=== PATIENT | male | born 1945 | race Caucasian/White ===

== ENCOUNTER 2021-12-08 10:08 | Outpatient (CLI) | payer MEDICARE, BC, SELFPAY ==
[2021-12-08 16:15] LABS: PSA Screen* 3.41 ng/mL (0.10-4.00)
== END 2021-12-08 10:09 | disposition home or self-care (01) ==
LOC: FRMREF 10:10
PROVIDERS: PCP Family Medicine; Visit Provider Family Medicine
DX: Z12.5 Encounter for screening for malignant neoplasm of prostate (principal)
CPT/HCPCS: 84153

== ENCOUNTER 2021-12-25 08:58 | Outpatient (CLI) | payer MEDICARE, BC, SELFPAY ==
--- NOTE | 2021-12-25 09:15 | MR_ITS ---
Patient: KUMAR MALONE Facility:?[facility] RIS Patient ID:?[id number] Site Patient ID:?[id number]. Site :?[id number] Study:?MRI-Abdomen W/ and W/O Cont 15 cc DOTAREM LIVER-12/25/2021 11:19:25 AM Ordering Physician:Jamal Rodriguez Final Report: INDICATION: Indeterminate liver lesion. Right renal mass present TECHNIQUE: Multiplanar imaging of the abdomen was performed without and with 15 cc of Dotarem contrast material IV. COMPARISON: Abdomen/pelvis CT of 12/01/2021. FINDINGS: The liver is normal in size and shape. In the lateral aspect of liver segment 8 are flash-filling hemangiomas measuring up to 10 mm and 7 mm. The liver parenchyma is otherwise unremarkable except for a 5 mm segment 2 cyst. The bile ducts are normal in caliber. A superior right renal mass measuring up to 10 cm in diameter is again demonstrated and the likely represents a renal cell carcinoma. No invasion of surrounding structures or right renal vein involvement is apparent. No lymphadenopathy is evident. The left kidney is unremarkable except for a small cyst. The spleen, adrenal glands and pancreas are within normal limits. No lymphadenopathy is apparent. The visualized bowel is unremarkable except for colonic diverticulosis. No free fluid is demonstrated. A 1 cm nodule in the right lower lobe base is again demonstrated. IMPRESSION: 1. Flash-feeling hemangiomas measuring up to 10 mm and 7 mm in the lateral aspect of segment 5. 5 mm liver segment 2 cyst also. 2. 10 cm superior right renal mass, likely a renal cell carcinoma. No local invasion or metastatic lesion evident. 3. 1 cm right lower lobe base nodule. Dictated by Raul Rivas MD @ 12/26/2021 5:37:23 AM Signed by:?Raul Rivas MD @12/26/2021 5:37:23 AM (Electronic Signature)
--- NOTE | 2021-12-25 11:00 | CRLHL7_ITS ---
For Patients: As a result of the Century Cures Act, medical imaging exams and procedure reports are released immediately into your electronic medical record. You may view this report before your referring provider. If you have questions, please contact your health care provider. Indication: RENAL CELL CARCINOMA, CHECK FOR LUNG METS Technique: Post contrast CT chest. 75 cc Isovue 370 intravenous contrast. Please note that all CT scans at this facility use dose modulation, iterative reconstruction, and/or weight-based dosing when appropriate to reduce radiation dose to as low as reasonably achievable. Comparison: Abdominal CT December 01, 2021 Findings: Coarse calcifications within the left thyroid lobe are present considered incidental. There is a suspicious nodule within the right upper lobe adjacent to the hilum measuring 1.4 cm, series 3, image 45. An additional suspicious nodule is located within the right lower lobe measuring 1.2 cm, 3/52. Mild dependent atelectasis. No pleural effusion or edema. No pneumothorax. No suspicious intrathoracic lymph nodes. Complex right renal mass measuring approximately 9 cm again noted along with retroperitoneal adenopathy in the portacaval space with lymph nodes measuring up to 1.9 cm. Hypodense lesion within the periphery of the left hepatic lobe measuring 7 millimeters, 2/81. Adrenal glands are normal. No fracture. Bridging osteophytes throughout the thoracic spine. A focus of decreased density is located within the T1 vertebral body posteriorly measuring 4 millimeters, 5/59 bone windows. An additional subtle lesion is present within the manubrium measuring 3 millimeters, 5/55. Impression: Two suspicious lung lesions measuring 1.4 cm and 1.2 cm within the right upper lobe and right lower lobe. Complex large right renal mass with adjacent portacaval adenopathy. Indeterminate 7 millimeter hypodense lesion within the left hepatic lobe. A subtle tiny foci of decreased density within the T1 vertebral body and manubrium, possibly related to osteoporosis although metastatic disease not excluded. Please note that all CT scans at this facility use dose modulation, iterative reconstruction, and/or weight-based dosing when appropriate to reduce radiation dose to as low as reasonably achievable. Dictated by Efrain Holm MD @ 12/25/2021 12:55:55 PM (Electronically Signed)
[2021-12-25 11:38] LABS: Estimated Glomerular Filt Rate 78 ml/min
== END 2021-12-25 08:59 | disposition home or self-care (01) ==
LOC: MRI 08:59
PROVIDERS: PCP Family Medicine; Visit Provider Urology
DX: N28.89 Other specified disorders of kidney and ureter (principal); R91.1 Solitary pulmonary nodule; K76.9 Liver disease, unspecified
CPT/HCPCS: 36415; 71260; 74183; 82565; A9575; Q9967

== ENCOUNTER 2022-03-10 10:25 | Outpatient (CLI) | payer MEDICARE, BC, SELFPAY ==
[2022-03-10 15:47] LABS: Creatinine Urine 156.1 mg/dL
[2022-03-10 15:51] LABS: Microalbumin Creatinine Ratio 40 mg/g (0-30); Microalbumin Urine 7 mg/dL
== END 2022-03-10 10:26 | disposition home or self-care (01) ==
LOC: LKVREF 10:31
PROVIDERS: PCP Family Medicine; Visit Provider Family Medicine
DX: E11.9 Type 2 diabetes mellitus without complications (principal); R73.9 Hyperglycemia, unspecified; D64.9 Anemia, unspecified
CPT/HCPCS: 82043; 82570

== ENCOUNTER 2022-03-17 10:35 | Emergency (ER) | payer MEDICARE, BC, SELFPAY ==
[2022-03-17 11:06] VITALS: BP 167/89; PULSE 76; RESP 18; TEMP 36.7; O2SAT 96; BMI 23.7
--- NOTE | 2022-03-17 11:22 | ED_ITS ---
History of Present Illness General Chief Complaint: Epistaxis/Nosebleed Stated Complaint: Bloody nose Time Seen by Provider: 03/17/22 10:50 History of Present Illness HPI Narrative: This 76-year-old male comes in with a nosebleed that started about 5 hours prior to arrival. He states that he blew is nose this morning and it started to bleed. He states that it stopped but then recurrent bleeding occurred 3 or 4 times in these past hours. He does not report any lightheadedness or shortness of breath. He is not on any blood thinners. He arrives with some gauze that is packed into his right nostril and is not showing any sign of active bleeding. Related Data Home Medications Medication Instructions Recorded Confirmed lancets ([place] UltraSoft 12/01/21 03/10/22 Lancets) pembrolizumab 25 mg/mL intravenous 200 mg IV Q3W 01/30/22 03/10/22 solution (Keytruda) acetaminophen 325 mg tablet 650 mg PO .twice a day PRN 03/10/22 03/10/22 (Tylenol) lenvatinib 14 mg/day (10 mg x 1 14 mg PO QDAY 03/10/22 03/10/22 and 4 mg x 1) capsule (Lenvima) omeprazole 20 mg capsule,delayed 20 mg PO QDAY 03/10/22 03/10/22 release polyethylene glycol 3350 17 4 g PO QDAY 03/10/22 03/10/22 gram/dose oral powder (Miralax) Previous Rx's Medication Instructions Recorded glipizide 2.5 mg tablet, extended 2.5 mg PO DAILY #90 tabs 02/19/22 release 24 hr diltiazem HCl 240 mg 240 mg PO DAILY #90 caps 02/25/22 capsule,extended release 24 hr lisinopril 20 1 tab PO DAILY #90 tabs 02/25/22 mg-hydrochlorothiazide 12.5 mg tablet metoprolol tartrate 25 mg tablet 12.5 mg PO BID #90 tabs 02/25/22 tamsulosin 0.4 mg capsule 0.4 mg PO DAILY #90 caps 02/25/22 blood sugar diagnostic ([employer] #100 ea 03/11/22 Ultra Test strips) Allergies Allergy/AdvReac Type Severity Reaction Status Date / Time metformin AdvReac Intermediate GI Upset Verified 03/10/22 10:03 Sulfa Antibiotics Allergy Mild Hives Uncoded 03/10/22 10:03 Review of Systems Status of ROS: Reports: 10 or more systems reviewed and unremarkable except as noted in History and below Narrative: Constitutional: No fevers, no weight gain or loss. Eyes: No discharge. No vision changes. HENT: No congestion, no sore throat, no ear pain. Bleeding from the right nostril as described above. Cardiovascular: No chest pain, no palpitations. Respiratory: No shortness of breath, no wheezes, no cough. Gastrointestinal: No abdominal pain, no vomiting, no diarrhea. Genitourinary: No dysuria, no hematuria. Musculoskeletal: Normal range of motion. Skin: No rashes, no pruritis. Neurological: No dizziness, weakness, sensory change, speech change. Endo/Heme/Allergies: No bruising or bleeding. No polydipsia. Pysch: no suicidality, no anxiety, no insomnia. All other systems reviewed and are negative. [facility] Medical History (Updated 03/17/22 @ 11:25 by Javi Medrano MD) Abdominal pain Degeneration of intervertebral disc of lumbar region Epidermoid cyst of neck Hyperglycemia Renal mass, right Surgical History (Updated 12/23/21 @ 10:32 by Roxanna Church LPN) History of bilateral inguinal hernia repair History of colonoscopy History of rotator cuff surgery Family History (Updated 12/23/21 @ 10:32 by Roxanna Church LPN) Family/Other Type 1 diabetes mellitus Type 2 diabetes mellitus Mother Diverticulitis of colon Rheumatoid arthritis Father Prostate cancer Other Encounter for annual physical exam Encounter for pre-operative examination Non-alcoholic fatty liver disease Social History (Updated 11/28/21 @ 09:46 by Jeremy Frost) Narrative: Non-smoker Smoking Status: Never smoker Exam Narrative: Exam Narrative: Constitutional: Well-developed, well-nourished, no acute distress. HEENT: Normocephalic, atraumatic. Right nostril has packing in it which was removed. There is no sign of active bleeding. There is evidence of an anterior source of bleeding in the right nostril. Neck: Normal range of motion. Nontender. Supple. Heart: Intact distal pulses. Lungs: No chest discomfort. No wheezes, rhonchi, or rales. Abdomen: Nontender. Back: Normal range of motion. Extremities: Normal range of motion. No injury. Skin: Intact. No rash. Warm. No erythema or pallor. Neurologic: No altered sensation. No weakness. Alert and oriented. Psychiatric: No suicidality. No anxiety or depression. No insomnia. Nursing notes and vitals signs are reviewed. Const: Vital Signs, click to edit/add: Vital Signs - 24 hr 03/17/22 11:06 Temperature 98.0 F Pulse Rate [Right Pulse Oximeter] 76 Respiratory Rate 18 Blood Pressure [Ri ght Upper Arm] 167/89 H Pulse Oximetry 96 Oxygen Delivery Me thod Room Air Course Vital Signs Vital signs: Initial Vital Signs Temperature 98.0 F 03/17/22 11:06 Temperature Source Temporal Artery Scan 03/17/22 11:06 Pulse Rate 76 03/17/22 11:06 Respiratory Rate 18 03/17/22 11:06 Blood Pressure 167/89 H 03/17/22 11:06 Blood Pressure Mean 115 03/17/22 11:06 Blood Pressure Position Sitting 03/17/22 11:06 Pulse Oximetry 96 03/17/22 11:06 Oxygen Delivery Method 03/17/22 11:06 Vital Signs Temperature 98.0 F 03/17/22 11:06 Pulse Rate 76 03/17/22 11:06 Respiratory Rate 18 03/17/22 11:06 Blood Pressure 167/89 H 03/17/22 11:06 Pulse Oximetry 96 03/17/22 11:06 Oxygen Delivery Method 03/17/22 11:06 Temperature 98.0 F 03/17/22 11:06 Pulse Rate 76 03/17/22 11:06 Respiratory Rate 18 03/17/22 11:06 Blood Pressure 167/89 H 03/17/22 11:06 Pulse Oximetry 96 03/17/22 11:06 Oxygen Delivery Method 03/17/22 11:06 MDM - Epistaxis MDM Narrative Medical decision making narrative: This patient is no longer actively bleeding. He does not have any blood in the oropharynx. There is evidence of an anterior bleed at the right nostril that now is no longer bleeding. He received a dose of Afrin and instructions were given regarding strategies to use if rebleeding occurs. He did receive a nasal clamp. Discharge Plan Discharge Clinical Impression: Acute anterior epistaxis Patient Disposition: Home, Self-Care Condition: Improved Additional Instructions: Be very gentle with care of the nostrils while healing recurs. If rebleeding occurs use nasal clamp and Afrin as instructed. Follow up with MD or return if worsening. Prescriptions: No Action (DME) lancets [OneTouch UltraSoft Lancets] Misc See Rx Instructions .Route Rx Instructions: daily As directed Keytruda 25 mg/mL solution 200 mg IV Q3W Rx Instructions: administer over 30 mins acetaminophen [Tylenol] 325 mg tablet 650 mg PO .twice a day PRN omeprazole 20 mg capsule,delayed release(DR/EC) 20 mg PO QDAY Lenvima 14 mg/day(10 mg x 1-4 mg x 1) capsule 14 mg PO QDAY polyethylene glycol 3350 [Miralax] 17 gram/dose powder 4 g PO QDAY glipizide 2.5 mg tablet extended release 24hr 2.5 mg PO DAILY Qty: 90 3RF lisinopril-hydrochlorothiazide 20-12.5 mg tablet 1 tab PO DAILY Qty: 90 1RF metoprolol tartrate 25 mg tablet 12.5 mg PO BID Qty: 90 1RF tamsulosin 0.4 mg capsule 0.4 mg PO DAILY Qty: 90 1RF diltiazem HCl 240 mg capsule,extended release 24hr 240 mg PO DAILY Qty: 90 1RF (DME) OneTouch Ultra Test Strip See Rx Instructions .Route Qty: 100 3RF Rx Instructions: daily -As directed Follow Up/Referrals: Beto Anne MD [Primary Care Provider] - Stand Alone Forms: [employer] Info Instructions
[2022-03-17] MEDS: OXYMETAZOLINE 0.05% NASAL SPRAY 1 SPRAY NOSTRIL-R (11:29)
--- OUTSIDE RECORDS SUMMARY | 2022-03-17 11:34 | XMS_ITS | Encounter Summary ---
:1945 [facility] [address] [place] [address] Care Team Providers Name Role Phone Unavailable Primary Care Provider Unavailable Reason for Visit Auth/Cert Specialty Diagnoses / Procedures Referred By Contact Refer red To Contact Diagnoses Nuclear sclerosis of right eye Procedures Cataract extraction with intraocular lens implant Referral ID Status Reason Start Date Expiration Date Visits Requ ested Visits Authorized [id number] 1 1 Encounter Details Date Type Department Care Team Description 09/02/2021 Hospital Encounter Jalyn Chambers [facility] Day Se[facility] [id number] [place] [address] [place] [id number] [phone] (Wo rk) Social History Tobacco Use Types Packs/Day Years Used Date Smoking Tobacco: Never Assessed Sex Assigned at Date Recorded Not on file documented as of this encounter Last Filed Vital Signs Vital Sign Reading Time Taken Comments Blood Pressure 118/70 09/02/2021 8:50 AM CDT Pulse 65 09/02/2021 8:50 AM CDT Temperature 36.6 ??C (97.9 ??F) 09/02/2021 8:44 AM CDT Respiratory Rate 16 09/02/2021 8:50 AM CDT Oxygen Saturation 95% 09/02/2021 8:50 AM CDT Inhaled Oxygen Concentration - - Weight 86.2 kg (190 lb) 08/29/2021 1:00 PM CDT Height 177.8 cm (5' 10) 08/29/2021 1:00 PM CDT Body Mass Index 27.26 08/29/2021 1:00 PM CDT documented in this encounter Medications at Time of Discharge Medication Sig Dispensed Refills Start Date End Date dilTIAZem CD (CARDIZEM 0 02/16/2021 CD) 240 MG 24 hour release capsule glipiZIDE (GLUCOTROL) 5 0 02/16/2021 MG tablet lisinopril-hydroCHLOROth 0 04/02/2021 iazide (PRINZIDE) 20-12.5 MG tablet metoprolol tartrate 0 02/26/2021 (LOPRESSOR) 25 MG tablet omeprazole (PRILOSEC) 20 0 04/02/2021 MG capsule tamsulosin (FLOMAX) 0.4 0 04/02/2021 MG CAPS capsule ketorolac (ACULAR) 0.5 % Instill 1 drop into 5 mL 1 10/15/2021 eye drop solution operative eye 4 times per day starting 3 days prior to surgery. Continue for 2 weeks after surgery. moxifloxacin (VIGAMOX) Instill 1 drop into 3 mL 1 03/2410/15/2021 0.5 % eye drop solution operative eye 4 times per day starting 3 days prior to surgery. Continue for 1 week after surgery. prednisoLONE acetate *SHAKE WELL BEFORE 15 mL 1 021 10/15/2021 (PRED FORTE) 1 % eye USE* Instill 1 drop drop suspension into operative eye 4 times per day starting AFTER your surgery. Taper by 1 drop per week. documented as of this encounter H&P Notes Seymour Lui MD - 09/02/2021 8:15 AM CDT Surgery Update for Preop History and Physical For 09/02/2021 scheduled procedure Update to H&P includes: Patient and/or family denies any health changes since the H&P This patient has been evaluated by me today and has been found to be a suitable candidate for surgery. 09/02/2021 Source Note - ProviderDaniella MD - 08/25/2021 12:00 AM CDT documented in this encounter Procedure Notes Seymour Lui MD - 09/02/2021 8:43 AM CDT OPERATIVE REPORT DATE OF OPERATION: 09/02/2021 : 1945 PREOPERATIVE DIAGNOSIS: Visually significant nuclear sclerotic age-related cataract, Right eye POSTOPERATIVE DIAGNOSIS: Visually significant nuclear sclerotic age-related cataract, Right eye INDICATIONS FOR PROCEDURE: The patient has a visually significant cataract of the operative eye that is adversely affecting their activities of daily living. The risks, benefits, alternatives, expectations and the procedure itself have been discussed at length with the patient who voiced understanding and wishes to proceed with surgery. All questions were answered to the patient's satisfaction. The stated procedure is still clinically indicated. PROCEDURE: 1. Phacoemulsification and extraction of lens, Right eye 2. Intraocular lens implantation, Right eye LENS IMPLANT: [employer] Edmund ZCB00 20.5 diopter lens SURGEON: Seymour Lui MD TRACE CLERK: None. ANESTHESIA: Monitored Anesthesia Care with topical and intraocular nonpreserved lidocaine. EBL: Less than 1 ml. COMPLICATIONS: None. DESCRIPTION OF PROCEDURE: The patient was identified in the preoperative area where the operative eye was marked. Prior to theprocedure, appropriate cardiac and respiratory monitors were applied to the patient. The patient as brought to the operative room where a surgical pause was carried out to identify with all members of the surgical team the correct surgical site. With adequate anesthesia, the Right eye was prepped and draped in the usual sterile fashion. A lid speculum was placed, and the operative microscope was rotated into position. A paracentesis was created. Through the limbal paracentesis, the anterior chamber was filled with preservative-free lidocaine and epinephrine followed by viscoelastic. A temporal clear corneal incision was created at the limbus using a 2.5mm blade. A capsulorhexis was initiated usinga cystotome and was completed in continuous and circular fashion using the capsulorrhexis forceps. The lens nucleus was hydrodissected. The lens nucleus was rotated and removed using phacoemulsification in a stop and chop technique. Residual cortical material was removed using irrigation-aspiration. The capsular bag was reinflated with cohesive viscoelastic. The intraocular lens was inserted into thecapsular bag and noted to be well centered. The residual viscoelastic was aspirated. The anterior chamber was inflated with balanced salt solution and the wounds were hydrated and found to be self-sealing. Intracameral moxifloxacin was administered. The eye was palpated and found to be of normal physiologic pressure. The speculum and drapes were removed, and vigamox and prednisolone drops were placedin the operative eye. A clear shield was placed over the eye. The patient tolerated the procedure well and there were no intraoperative complications. PLAN: The patient will be discharged to home and will follow up in the eye clinic tomorrow. Implant Name Type Inv. Item Serial No. Lining Scrubber Lot No. LRB No. Used Action LENS IOL TECNIS [id number] 20.5 - [id number] DEVICE LENS IOL TECNIS ZCB00 20.5 [id number] [employer] Right 1 Implanted documented in this encounter OR Notes H&P - Seymour Lui MD - 09/02/2021 8:58 AM CDT General exam: Heart: RRR Lungs: No signs of respiratory distress documented in this encounter Plan of Treatment Not on filedocumented as of this encounter Procedures Procedure Name Priority Date/Time Associated Comments Diagnosis PHACOEMULSIFICATION WITH 09/02/2021 8:20 Nuclear scler osis IMPLANT INTRAOCULAR LENS AM CDT of right eye GLUCOSE, WHOLE BLOOD POCT Routine 09/02/2021 7:38 Results for this AM CDT procedure are i n the results section. documented in this encounter Results Glucose, Whole Blood POCT (09/02/2021 7:38 AM CDT) P athologist Signature Glucose, Whole 125 70 - 180 09/02/2021 [place] Blood mg/dL 7:40 AM CDT LABORATORY Performing SDS MG 09/02/2021 [place] Location 7:40 AM CDT LABORATORY Specimen Anatomical Collection Method Collection Time Receive d Time (Source) Location / / Volume Laterality Blood 09/02/2021 7:38 AM 7:40 CDT AM CDT Seymour Lui MD LAB_1 Performing Organization Address City/State/ZIP Code Phon e Number [place] [address] [facility] [phone] documented in this encounter Visit Diagnoses Diagnosis Nuclear sclerosis of left eye - Primary Plan of Care - Iris Nair RN - 08/29/2021 2:17 PM CDT PPA call completed by calling [phone] spoke to patient. Advised of arrival time 0715. Reviewed pre-procedure questions, detailed instructions with NPO guidelines and address given. Advised of visitor guidelines (1 visitor, 18+ yr in age for adults and 2 parents or legal guardians- peds)All questions answered, no other needs at this time. documented in this encounter Admitting Diagnoses Diagnosis Nuclear sclerosis of left eye documented in this encounter Administered Medications Inactive Administered Medications - up to 3 most recent administrations Medication Order MAR Action Action Date Dose Rate Site balance salt intraocular (BSS) Given 09/02/2021 8:[address] op ophthalmic solution ONCE PRN, Starting on Wed09/02/21 at 0831, Until Wed09/02/21 at 1100, Intra-op EPINEPHrine 0.025%-lidocaine 0.75% PF 0.8mL Given 09/02/2021 8:32 AM CDT 0.8 mL syringe ONCE PRN, Starting on Wed09/02/21 at 0832, Until Wed09/02/21 at 1100, Intra-op EPINEPHrine PF 0.5 mg in balance salt Given 09/02/2021 8:32 AM C DT 250 mL intraocular (BSS) 500 mL ONCE PRN, Starting on Wed09/02/21 at 0832, Intra-op fentaNYL (SUBLIMAZE) injection 25-50 mcg 25-50 mcg, Intravenous, [id number], Pain, Procedure, Starting on Wed09/02/21 at 0722, Until Wed09/02/21 at 1100, For 2 doses, As directed by anesthesiologist, Pre-op gatifloxacin (ZYMAXID) 0.5 % ophthalmic Given 09/02/2021 7:40 AM CDT 1 Drop solution 1 Drop 1 Drop, See Admin Instructions, OTHER, Starting on Wed09/02/21 at 0721, Until Wed09/02/21 at 0740, For 3 doses, Following tetracaine eye drop, instill 1 drop into operative eye every 5-10 minutes x 3, Pre-op Given 09/02/2021 7:35 AM CDT 1 Drop Given 09/02/2021 7:30 AM CDT 1 Drop lidocaine PF (XYLOCAINE) 1 % injection 0 .1-0.3 mL 0.1-0.3 mL, Subcutaneous, PRN, Other, fo r IV insertion, Starting on Wed09/02/21 at 0721, For 1 day, Lidocaine to be used fo r IV starts unless patient refuses., Pre-op meperidine (DEMEROL) injection 12.5 mg 12.5 mg, Intravenous, [id number], Shiverin g, Starting on Wed09/02/21 at 0708, Until Wed09/02/21 at 1100, For 2 doses, Maximu m cumulative dose is 25 mg. Do not give to patients receiving MAO inhibitors (e.g. phenelzine (NA RDIL), tranylcypromine (PARNATE), selegiline (ELDEPRYL))., PACU/Recovery midazolam (VERSED) injection 1-2 mg 1-2 mg, Intravenous, [id number], Sedation, Anxiety, Proc edure, Starting on Wed09/02/21 at 0722, Until Wed09/02/21 at 1100, As directe d by anesthesiologist MAX Dose 2mg, Pre-op moxifloxacin (VIGAMOX) 0.3 MG/0.3ML Given 09/02/2021 8:32 AM CDT 0.3 mg ophthalmic injection ONCE PRN, Starting on Wed09/02/21 at 0832, Until Wed09/02/21 at 1100, Intra-op moxifloxacin (VIGAMOX) 0.5 % ophthalmic Given 09/02/2021 8:32 AM CDT 1 Drop solution ONCE PRN, Starting on Wed09/02/21 at 0832, Until Wed09/02/21 at 1100, Intra-op naloxone (NARCAN) injection 0.08 mg 0.08 mg, Intravenous, PRN, Other, For respiratory rate less than 8/minute or patient difficult to arouse, Starting on Wed09/02/21 at 0708, Until Wed09/02/21 at 1100, May repeat every 3 minutes or until patient is r esponsive to physical stimulation and is able to take deep regina aths. Maximum cumulative dose is 0.4 mg (1 mL). Continue to observe; if no response after administering total dose of 0.4 mg notify anesthesiologist STAT., PACU/Recovery naloxone (NARCAN) injection 0.4 mg 0.4 mg, Intravenous, ONCE PRN, Opioid Re versal, Starting on Wed09/02/21 at 0708, Until Wed09/02/21 at 1100, For 1 dose, F or imminent respiratory arrest. Notify MD if naloxone is given., PACU/Recovery ondansetron (ZOFRAN) injection 4 mg 4 mg, Intravenous, Q4H PRN, Nausea, Vomiting, Starting on Wed09/02/21 at 0708, Until Wed09/02/21 at 1100, If multiple medications are ordered for nausea or vomiting - administer in the following priority based on medications ordered, effectiveness and availability: ondanset ant (ZOFRAN) > prochlorPERAZINE (COMPAZINE) > diphenhydrAMINE (BENADRYL) > hydrOXYzi ne HCl (VISTARIL)> ePHEDrine > scopolamine (TRANSDERM-SCOP)., PACU/Recovery phenylephrine (AK-DILATE) 2.5 % ophthalmic Given 09/02/2021 7:40 AM CDT 1 Drop solution 1 Drop 1 Drop, See Admin Instructions, OTHER, Starting on Wed09/02/21 at 0721, Until Wed09/02/21 at 0740, For 3 doses, Following tetracaine eye drop, instill 1 drop into operative eye every 5-10 minutes x 3, Pre-op Given 09/02/2021 7:35 AM CDT 1 Drop Given 09/02/2021 7:30 AM CDT 1 Drop povidone-iodine (BETADINE) 5 % ophthalmic Given 09/02/2021 8:33 AM CDT 1 Drop solution ONCE PRN, Starting on Wed09/02/21 at 0833, Until Wed09/02/21 at 1100, Intra-op prednisoLONE acetate (PRED FORTE) 1 % Given 09/02/2021 8:33 AM C DT 1 Drop ophthalmic suspension ONCE PRN, Starting on Wed09/02/21 at 0833, Until Wed09/02/21 at 1100, Intra-op sodium chloride 0.9% injection 10 mL Given 09/02/2021 7:36 AM CDT 10 mL 10 mL, Intravenous, PRN, Line Patency, Starting on Wed09/02/21 at 0721, Until Wed09/02/21 at 1100, Pre-op sodium hyaluronate (HELON DUET) ophthalmic Given 09/02/2021 8:33 AM CDT 1 Each injection ONCE PRN, Starting on Wed09/02/21 at 0833, Intra-op tetracaine (PONTOCAINE) 0.5 % ophthalmic Given 09/02/2021 7:30 A M CDT 1 Drop solution 1 Drop 1 Drop, See Admin Instructions, ONCE, On Wed09/02/21 at 0745, For 1 dose, Instill into operative eye prior to all other eye drops, Pre-op tetracaine (PONTOCAINE) 0.5 % ophthalmic Given 09/02/2021 8:33 A M CDT 1 Drop solution ONCE PRN, Starting on Wed09/02/21 at 0833, Intra-op timolol (TIMOPTIC) 0.5 % ophthalmic solu tion Given 09/02/2021 8:33 AM CDT 1 Drop ONCE PRN, Starting on Wed09/02/21 at 0833, Until Wed09/02/21 at 1100, Intra-op tropicamide (MYDRIACYL) 1 % ophthalmic Given 09/02/2021 7:40 AM CDT 1 Drop solution 1 Drop 1 Drop, See Admin Instructions, OTHER, Starting on Wed09/02/21 at 0721, Until Wed09/02/21 at 0740, For 3 doses, Following tetracaine eye drop, instill 1 drop into operative eye every 5-10 minutes x 3, Pre-op Given 09/02/2021 7:35 AM CDT 1 Drop Given 09/02/2021 7:30 AM CDT 1 Drop documented in this encounter Active and Recently Administered Medications Times are shown in CDT. Scheduled Medication Order 08/31/2021 09/01/2021 09/02/2021 gatifloxacin (ZYMAXID) 0.5 % ophthalmic solution 1 Drop (COMPLET ED) 0743 (Given - Provider: Bridget Sarmiento RN)0735 (Given - Provider: Bridget Sarmiento RN)0740 (Given - Provider: Bridget Sarmiento RN) 1 Drop, See Admin Instructions, OTHER, S tarting on Wed09/02/21 at 0721, Until Wed09/02/21 at 0740, For 3 doses, Following tetracaine eye drop, instill 1 drop into operative eye every 5-10 minutes x 3, Pre-op phenylephrine (AK-DILATE) 2.5 % ophthalmic solution 1 Drop (COMP LETED) 0730 (Given - Provider: Bridget Sarmiento RN)0735 (Given - Provider: Bridget Sarmiento RN)0740 (Given - Provider: Bridget Sarmiento RN) 1 Drop, See Admin Instructions, OTHER, S tarting on Wed09/02/21 at 0721, Until Wed09/02/21 at 0740, For 3 doses, Following tetracaine eye drop, instill 1 drop into operative eye every 5-10 minutes x 3, Pre-op tetracaine (PONTOCAINE) 0.5 % ophthalmic solution 1 Drop (COMPLE BRENDON) 0730 (Given - Provider: Bridget Sarmiento RN) 1 Drop, See Admin Instructions, ONCE, On Wed09/02/21 at 0745, For 1 dose, Instill into operative eye prior to all other eye drops, Pre-op tropicamide (MYDRIACYL) 1 % ophthalmic solution 1 Drop (COMPLETE D) 0730 (Given - Provider: Bridget Sarmiento RN)0735 (Given - Provider: Bridget Sarmiento RN)0740 (Given - Provider: Bridget Sarmiento RN) 1 Drop, See Admin Instructions, OTHER, S tarting on Wed09/02/21 at 0721, Until Wed09/02/21 at 0740, For 3 doses, Following tetracaine eye drop, instill 1 drop into operative eye every 5-10 minutes x 3, Pre-op PRN Medication Order 08/31/2021 09/01/2021 09/02/2021 acetaminophen (TYLENOL) tablet 650 mg 650 mg, Oral, ONCE PRN, Other, Mild Pain (pain score 1-4), Starting on Wed09/02/21 at 0831, Until Wed09/02/21 at 1100, For 1 dose, Give for mild pain or if patient prefers acetaminophen over other options for pain (all pain scores)., Post-op balance salt intraocular (BSS) ophthalmic solution 830 (Given - Provider: Seymour Lui MD) ONCE PRN, Starting on Wed09/02/21 at 0831, Until Wed09/02/21 at 1100, Intra-op EPINEPHrine 0.025%-lidocaine 0.75% PF 0.8mL syringe 831 (Given - Provider: Seymour Lui MD) ONCE PRN, Starting on Wed09/02/21 at 0832, Until Wed09/02/21 at 1100, Intra-op EPINEPHrine PF 0.5 mg in balance salt intraocular (BSS) 500 mL 831 (Given - Provider: Seymour Lui MD) ONCE PRN, Starting on Wed09/02/21 at 0832, Intra-op fentaNYL (SUBLIMAZE) injection 25-50 mcg 25-50 mcg, Intravenous, [id number], Pain, Procedure, Starting on Wed09/02/21 at 0722, Until Wed09/02/21 at 1100, For 2 doses, As directed by anesthesiologist, Pre-op lidocaine PF (XYLOCAINE) 1 % injection 0.1-0.3 mL 0.1-0.3 mL, Subcutaneous, PRN, Other, fo r IV insertion, Starting on Wed09/02/21 at 0721, For 1 day, Lidocaine to be used for IV starts unless patient refuses., Pre-op meperidine (DEMEROL) injection 12.5 mg 12.5 mg, Intravenous, [id number], Shiverin g, Starting on Wed09/02/21 at 0708, Until Wed09/02/21 at 1100, For 2 doses, Maximum cumulative dose is 25 mg. Do not give to patients receiving MAO inhibitors (e. g. phenelzine (NARDIL), tranylcypromine (PARNATE), selegiline (ELDEPRYL))., PACU/Recovery midazolam (VERSED) injection 1-2 mg 1-2 mg, Intravenous, [id number], Sedation, Anxiety, Procedure, Starting on Wed09/02/21 at 0722, Until Wed09/02/21 at 1100, As directed by anesthesiologist MAX Dose 2mg, Pre-op moxifloxacin (VIGAMOX) 0.3 MG/0.3ML ophthalmic injection 831 (Given - Provider: Seymour Lui MD) ONCE PRN, Starting on Wed09/02/21 at 0832, Until Wed09/02/21 at 1100, Intra-op moxifloxacin (VIGAMOX) 0.5 % ophthalmic solution 831 (Given - Provider: Sonia Sanches RN) ONCE PRN, Starting on Wed09/02/21 at 0832, Until Wed09/02/21 at 1100, Intra-op naloxone (NARCAN) injection 0.08 mg 0.08 mg, Intravenous, PRN, Other, For re spiratory rate less than 8/minute or patient difficult to arouse, Starting on Wed09/02/21 at 0708, Until Wed09/02/21 at 1100, May repeat every 3 minutes or until patient is responsive to physical stimul ation and is able to take deep breaths. Maximum cumulative dose is 0.4 mg (1 mL). Continue to observe; if no response after administering total dose of 0.4 mg notify anesthesiologist STAT., PACU/Recovery naloxone (NARCAN) injection 0.4 mg 0.4 mg, Intravenous, ONCE PRN, Opioid Re versal, Starting on Wed09/02/21 at 0708, Until Wed09/02/21 at 1100, For 1 dose, For imminent respiratory arrest. Notify MD if naloxone is given., PACU/Recovery ondansetron (ZOFRAN) injection 4 mg 4 mg, Intravenous, Q4H PRN, Nausea, Vomi ting, Starting on Wed09/02/21 at 0708, Until Wed09/02/21 at 1100, If multiple medications are ordered for nausea or vomiting - administer in the following priorit y based on medications ordered, effectiv eness and availability: ondansetron (ZOFRAN) > prochlorPERAZINE (COMPAZINE) > diphenhydrAMINE (BENADRYL) > hydrOXYzine HCl (VISTARIL)> ePHEDrine > scopolamine (TRANSDERM-SCOP)., PACU/Recovery povidone-iodine (BETADINE) 5 % ophthalmic solution 832 (Given - Provider: Sonia Sanches RN) ONCE PRN, Starting on Wed09/02/21 at 0833, Until Wed09/02/21 at 1100, Intra-op prednisoLONE acetate (PRED FORTE) 1 % ophthalmic suspension 832 (Given - Provider: Sonia Sanches, VAISHALI) ONCE PRN, Starting on Wed09/02/21 at 0833, Until Wed09/02/21 at 1100, Intra-op sodium chloride 0.9% injection 10 mL 735 (Given - Provider: Bridget Sarmiento RN) 10 mL, Intravenous, PRN, Line Patency, S tarting on Wed09/02/21 at 0721, Until Wed09/02/21 at 1100, Pre-op sodium hyaluronate (HELON DUET) ophthalmic injection 832 (Given - Provider: Seymour Lui MD) ONCE PRN, Starting on Wed09/02/21 at 0833, Intra-op tetracaine (PONTOCAINE) 0.5 % ophthalmic solution 1 Drop 1 Drop, See Admin Instructions, ONCE PRN , Other, In operative eye if eye is not patched., Starting on Wed09/02/21 at 0831, For 1 dose, Instill 1 drop in operative eye if eye is not patched., Post-op tetracaine (PONTOCAINE) 0.5 % ophthalmic solution 832 (Given - Provider: Sonia Sanches RN) ONCE PRN, Starting on Wed09/02/21 at 0833, Intra-op timolol (TIMOPTIC) 0.5 % ophthalmic solution 832 (Given - Provider: Sonia Sanches RN) ONCE PRN, Starting on Wed09/02/21 at 0833, Until Wed09/02/21 at 1100, Intra-op documented in this encounter
--- OUTSIDE RECORDS SUMMARY | 2022-03-17 11:34 | XMS_ITS | Encounter Summary ---
:1945 Author Organization [facility] Address [address] [place] [address] Care Team Providers Name Role Phone Unavailable Primary Care Provider Unavailable Encounter Details Date Type Department Care Team Description 04/02/2021 Orders Only Initial Department Provider, Daniella, [facility] ROBBIE LANCASTER MD [place], [place] [address] Interface provider [phone] [place] [address] Social History Tobacco Use Types Packs/Day Years Used Date Smoking Tobacco: Never Assessed Sex Assigned at Date Recorded Not on file documented as of this encounter Plan of Treatment Not on filedocumented as of this encounter Procedures Procedure Name Priority Date/Time Associated Diagnosis Comme nts MIRIAM (DIABETIC EYE 04/02/2021 Results fo r this EXAM) procedure are i n the results section . documented in this encounter Results MIRIAM (DIABETIC EYE EXAM) (04/02/2021) Narrative This result has an attachment that is no t available. Interface Provider DUMMY/OTHER/AR documented in this encounter Visit Diagnoses Not on filedocumented in this encounter
--- OUTSIDE RECORDS SUMMARY | 2022-03-17 11:34 | XMS_ITS | Encounter Summary ---
:1945 Author Organization [facility] Address [address] [place] [address] Care Team Providers Name Role Phone Unavailable Primary Care Provider Unavailable Encounter Details Date Type Department Care Team Description 09/03/2021 Office Visit [place] Seymour Lui, 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); Ophthalmology Pseudophakia [address] [place] [address] [facility] [address] [place] [id number] [phone] Social History Tobacco Use Types Packs/Day Years Used Date Smoking Tobacco: Never Assessed Sex Assigned at Date Recorded Not on file documented as of this encounter Progress Notes Seymour Lui MD - 09/03/2021 11:00 AM CDT I reviewed the information stated in the mold repair technician's note for today and agree, unless otherwise noted below. I reviewed the patient's past medical history, medications, family history, and social history. General: Generally healthy appearing. Alert and oriented x 3. Subjective: see tech note, agree. Impression: Postoperative day 1 s/p cataract extraction with intraocular lens implantation, right eye Good postoperative appearance. Patient is doing well. -Postoperative instructions and restrictions were reviewed with the patient including use of eye drops -Patient advised to call if any problems, questions or concerns -Prednisolone QID, 4-3-2-1 taper -Moxifloxacin QID x 1 week -Ketorolac QID x 1 week then TID x 1 week -Follow up in 2 weeks for cataract surgery in fellow eye, or sooner if increased redness, blurry vision, or pain in operative eye. Visually significant cataract, left eye -Pt selects standard IOL for distance focus, both eyes -Declined adv tech options Will plan for topical anesthesia Refractive Goal: Hamilton Dilation: 7mm Flomax?: YES Malyugin Ring?: No Trypan?: No Glaucoma suspect, both eyes. Based on C:D. IOP stable. -Monitor PVD, right eye. Stable. Discussed. -RD precautions reviewed Type II Diabetes Mellitus -No active diabetic retinopathy is present on examination -BS/BP control documented in this encounter Plan of Treatment Not on filedocumented as of this encounter Visit Diagnoses Diagnosis Nuclear sclerosis of left eye - Primary Pseudophakia Lens replaced by other means documented in this encounter
--- OUTSIDE RECORDS SUMMARY | 2022-03-17 11:34 | XMS_ITS | Encounter Summary ---
:1945 Author Organization [facility] Address [address] [place] [address] Care Team Providers Name Role Phone Unavailable Primary Care Provider Unavailable Reason for Visit Auth/Cert Specialty Diagnoses / Procedures Referred By Contact Refer red To Contact Diagnoses Nuclear sclerosis of left eye Procedures Cataract extraction with intraocular lens implant Referral ID Status Reason Start Date Expiration Date Visits Requ ested Visits Authorized [id number] 1 1 Encounter Details Date Type Department Care Team Description 09/16/2021 Hospital Encounter Jalyn Chambers Same Day Seymour [facility] [id number] [place] [address] [place] [id number] [phone] (Wo rk) Social History Tobacco Use Types Packs/Day Years Used Date Smoking Tobacco: Never Assessed Sex Assigned at Date Recorded Not on file documented as of this encounter Last Filed Vital Signs Vital Sign Reading Time Taken Comments Blood Pressure 129/70 09/16/2021 9:00 AM CDT Pulse 68 09/16/2021 9:00 AM CDT Temperature 36 ??C (96.8 ??F) 09/16/2021 8:56 AM CDT Respiratory Rate 16 09/16/2021 9:00 AM CDT Oxygen Saturation 97% 09/16/2021 9:00 AM CDT Inhaled Oxygen Concentration - - Weight - - Height - - Body Mass Index - - documented in this encounter Medications at Time [...] per week. documented as of this encounter Progress Notes Seymour Lui MD - 09/16/2021 8:33 AM CDT The patient reports no new medical events or changes in their health since preoperative history and physical. Adelita Rodriguez RN - 09/11/2021 11:16 AM CDT Called pt. Reviewed questions and chart with pt. 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 Instructed on 1 visitor for adults and 2 parents/guardians for <18yrs old in building at this time. Pt informed of surgery arrival time of 0715 on 09/16. Covid test 09/13. PPA assessment complete. documented in this encounter Procedure Notes Seymour Lui MD - 09/16/2021 8:54 AM CDT OPERATIVE REPORT DATE OF OPERATION: 09/16/2021 : 1945 PREOPERATIVE DIAGNOSIS: Visually significant nuclear sclerotic age-related cataract, Left eye POSTOPERATIVE DIAGNOSIS: Visually significant nuclear sclerotic age-related cataract, Left eye INDICATIONS FOR PROCEDURE: The patient has [...] PROCEDURE: 1. Phacoemulsification and extraction of lens, Left eye 2. Intraocular lens implantation, Left eye LENS IMPLANT: [employer] ZCB00 20.5 diopter lens SURGEON: Seymour Lui MD BONDING MOLDER: None. ANESTHESIA: Monitored Anesthesia Care with topical [...] correct surgical site. With adequate anesthesia, the Left eye was prepped and draped in the usual sterile fashion. A lid speculum was placed, and the operative microscope was rotated into position. A paracentesis was created. Through the limbal paracentesis, the anterior chamber was filled with preservative-free lidocaine and epinephrine followed by viscoelastic. A temporal clearcorneal incision was created at the limbus using a 2.5mm blade. A capsulorhexis was initiated using a cystotome and was completed in continuous and circular fashion using the capsulorrhexis forceps. The lens nucleus was hydrodissected. The lens nucleus was rotated and removed using phacoemulsificationin a stop and chop technique. Residual cortical material was removed using irrigation-aspiration. The capsular bag was reinflated with cohesive viscoelastic. The intraocular lens was inserted into the capsular bag and noted to be well centered. The residual viscoelastic was aspirated. The anterior chamber was inflated with balanced salt solution and the wounds were hydrated and found to be self-sealing. Intracameral moxifloxacin was administered. The eye was palpated and found to be of normal physiologic pressure. The speculum and drapes were removed, and vigamox and prednisolone drops were placed in the operative eye. A clear shield was placed over the eye. The patient tolerated the procedure well and there were no intraoperative complications. PLAN: The patient will be discharged to home and will follow up in the eye clinic tomorrow. Implant Name Type Inv. Item Serial No. School Plant Consultant Lot No. LRB No. Used Action LENS IOL TECNIS ZCB00 20.5 - [id number] DEVICE LENS IOL TECNIS ZCB00 20.5 [id number] [employer] Left 1 Implanted documented in this encounter Plan of Treatment Not on filedocumented as of this encounter Procedures Procedure Name Priority Date/Time Associated Comments Diagnosis PHACOEMULSIFICATION WITH 09/16/2021 8:31 Nuclear scler osis IMPLANT INTRAOCULAR LENS AM CDT of left eye GLUCOSE, WHOLE BLOOD POCT Routine 09/16/2021 7:36 Results for this AM CDT procedure are i n the results section. documented in this encounter Results Glucose, Whole Blood POCT (09/16/2021 7:36 AM CDT) athologist Signature Glucose, Whole 148 70 - 180 09/16/2021 [facility] Blood mg/dL 7:37 AM CDT LABORATORY Performing SDS MG 09/16/2021 [facility] Location 7:37 AM CDT LABORATORY Specimen Anatomical Collection Method Collection Time Receive d Time (Source) Location / / Volume Laterality Blood 09/16/2021 7:36 AM 7:37 CDT AM CDT Seymour Lui MD LAB_1 Performing Organization Address City/State/ZIP Code Phon e Number [facility] [place] [address] [facility] [phone] documented in this encounter Visit Diagnoses Not on filedocumented in this encounter Admitting Diagnoses Diagnosis Nuclear sclerosis of left eye documented in this encounter Administered Medications Inactive Administered Medications - up to 3 most recent administrations Medication Order MAR Action Action Date Dose Rate Site balance salt intraocular (BSS) Given 09/16/2021 8:44 AM CDT 15 m L Left Eye ophthalmic solution ONCE PRN, Starting on Wed09/16/21 at 0844, Until Wed09/16/21 at 1113, Intra-op EPINEPHrine 0.025%-lidocaine 0.75% PF Given 09/16/2021 8:44 AM C DT 0.8 mL Left Eye 0.8mL syringe ONCE PRN, Starting on Wed09/16/21 at 0844, Until Wed09/16/21 at 1113, Intra-op EPINEPHrine PF 0.5 mg in balance salt Given 09/16/2021 8:44 AM C DT 200 mL Left Eye intraocular (BSS) 500 mL ONCE PRN, Starting on Wed09/16/21 at 0844, Intra-op gatifloxacin (ZYMAXID) 0.5 % ophthalmic Given 09/16/2021 7:37 AM CDT 1 Drop solution 1 Drop 1 Drop, See Admin Instructions, OTHER, Starting on Wed09/16/21 at 0726, Until Wed09/16/21 at 0737, For 3 doses, Following tetracaine eye drop, instill 1 drop into operative eye every 5-10 minutes x 3, Pre-op Given 09/16/2021 7:34 AM CDT 1 Drop Given 09/16/2021 7:10 AM CDT 1 Drop lidocaine PF (XYLOCAINE) 1 % injection 0 .1-0.3 mL 0.1-0.3 mL, Subcutaneous, PRN, Other, fo r IV insertion, Starting on Wed09/16/21 at 0726, For 1 day, Lidocaine to be used fo r IV starts unless patient refuses., Pre-op meperidine (DEMEROL) injection 12.5 mg 12.5 mg, Intravenous, [id number], Shiverin g, Starting on Wed09/16/21 at 0757, Until Wed09/16/21 at 1113, For 2 doses, Maximu m cumulative dose is 25 mg. Do not give to patients receiving MAO inhibitors (e.g. phenelzine (NA RDIL), tranylcypromine (PARNATE), selegiline (ELDEPRYL))., PACU/Recovery moxifloxacin (VIGAMOX) 0.3 MG/0.3ML Given 09/16/2021 8:44 AM CDT 0.3 mg Left Eye ophthalmic injection ONCE PRN, Starting on Wed09/16/21 at 0844, Until Wed09/16/21 at 1113, Intra-op moxifloxacin (VIGAMOX) 0.5 % Given 09/16/2021 8:44 AM CDT 1 Drop Left Eye ophthalmic solution ONCE PRN, Starting on Wed09/16/21 at 0844, Until Wed09/16/21 at 1113, Intra-op naloxone (NARCAN) injection 0.08 mg 0.08 mg, Intravenous, PRN, Other, For respiratory rate less than 8/minute or patient difficult to arouse, Starting on Wed09/16/21 at 0757, Until Wed09/16/21 at 1113, May repeat every 3 minutes or until patient is r esponsive to physical stimulation and is able to take deep regina aths. Maximum cumulative dose is 0.4 mg (1 mL). Continue to observe; if no response after administering total dose of 0.4 mg notify anesthesiologist STAT., PACU/Recovery naloxone (NARCAN) injection 0.4 mg 0.4 mg, Intravenous, ONCE PRN, Opioid Re versal, Starting on Wed09/16/21 at 0757, Until Wed09/16/21 at 1113, For 1 dose, F or imminent respiratory arrest. Notify MD if naloxone is given., PACU/Recovery ondansetron (ZOFRAN) injection 4 mg 4 mg, Intravenous, Q4H PRN, Nausea, Vomiting, Starting on Wed09/16/21 at 0757, Until Wed09/16/21 at 1113, If multiple medications are ordered for nausea or vomiting - administer in the following priority based on medications ordered, effectiveness and availability: ondanset ant (ZOFRAN) > prochlorperazine (COMPAZINE) > diphenhydrAMINE (BENADRYL) > hydrOXYzi ne HCl (VISTARIL)> ePHEDrine > scopolamine (TRANSDERM-SCOP)., PACU/Recovery phenylephrine (AK-DILATE) 2.5 % ophthalmic Given 09/16/2021 7:37 AM CDT 1 Drop solution 1 Drop 1 Drop, See Admin Instructions, OTHER, Starting on Wed09/16/21 at 0726, Until Wed09/16/21 at 0737, For 3 doses, Following tetracaine eye drop, instill 1 drop into operative eye every 5-10 minutes x 3, Pre-op Given 09/16/2021 7:34 AM CDT 1 Drop Given 09/16/2021 7:10 AM CDT 1 Drop povidone-iodine (BETADINE) 5 % Given 09/16/2021 8:[address] Left Eye ophthalmic solution ONCE PRN, Starting on Wed09/16/21 at 0845, Until Wed09/16/21 at 1113, Intra-op prednisoLONE acetate (PRED FORTE) 1 % Given 09/16/2021 8:45 AM C DT 1 Drop Left Eye ophthalmic suspension ONCE PRN, Starting on Wed09/16/21 at 0845, Until Wed09/16/21 at 1113, Intra-op sodium chloride 0.9% injection 10 mL Given 09/16/2021 7:33 AM CDT 10 mL 10 mL, Intravenous, ONCE, On Wed09/16/21 at 0745, For 1 dose, Pre-op sodium chloride 0.9% injection 10 mL 10 mL, Intravenous, PRN, Line Patency, S tarting on Wed09/16/21 at 0726, Until Wed09/16/21 at 1113, Pre-op sodium hyaluronate (HELON DUET) Given 09/16/2021 8:45 AM CDT 1 E ach Left Eye ophthalmic injection ONCE PRN, Starting on Wed09/16/21 at 0845, Intra-op tetracaine (PONTOCAINE) 0.5 % ophthalmic Given 09/16/2021 7:05 A M CDT 1 Drop solution 1 Drop 1 Drop, See Admin Instructions, ONCE, On Wed09/16/21 at 0745, For 1 dose, Instill into operative eye prior to all other eye drops, Pre-op tetracaine (PONTOCAINE) 0.5 % Given 09/16/2021 8:45 AM CDT 1 Duran p Both Eyes ophthalmic solution ONCE PRN, Starting on Wed09/16/21 at 0845, Intra-op timolol (TIMOPTIC) 0.5 % ophthalmic Given 09/16/2021 8:45 AM CDT 1 Drop Left Eye solution ONCE PRN, Starting on Wed09/16/21 at 0845, Until Wed09/16/21 at 1113, Intra-op tropicamide (MYDRIACYL) 1 % ophthalmic Given 09/16/2021 7:37 AM CDT 1 Drop solution 1 Drop 1 Drop, See Admin Instructions, OTHER, Starting on Wed09/16/21 at 0726, Until Wed09/16/21 at 0737, For 3 doses, Following tetracaine eye drop, instill 1 drop into operative eye every 5-10 minutes x 3, Pre-op Given 09/16/2021 7:33 AM CDT 1 Drop Given 09/16/2021 7:10 AM CDT 1 Drop documented in this encounter Active and Recently Administered Medications Times are shown in CDT. Scheduled Medication Order 09/14/2021 09/15/2021 09/16/2021 gatifloxacin (ZYMAXID) 0.5 % ophthalmic solution 1 Drop (COMPLET ED) 0710 (Given - Provider: Bridget Sarmiento RN)0734 (Given - Provider: Bridget Sarmiento RN)0737 (Given - Provider: Bridget Sarmiento, VAISHALI) 1 Drop, See Admin Instructions, OTHER, S tarting on Wed09/16/21 at 0726, Until Wed09/16/21 at 0737, For 3 doses, Following tetracaine eye drop, instill 1 drop into operative eye every 5-10 minutes x 3, Pre-op phenylephrine (AK-DILATE) 2.5 % ophthalmic solution 1 Drop (COMP LETED) 0710 (Given - Provider: Bridget Sarmiento RN)0734 (Given - Provider: Bridget Sarmiento, VAISHALI)0737 (Given - Provider: Bridget Sarmiento, VAISHALI) 1 Drop, See Admin Instructions, OTHER, S tarting on Wed09/16/21 at 0726, Until Wed09/16/21 at 0737, For 3 doses, Following tetracaine eye drop, instill 1 drop into operative eye every 5-10 minutes x 3, Pre-op sodium chloride 0.9% injection 10 mL (COMPLETED) 0733 (Given - Provider: Bridget Sarmiento, VAISHALI) 10 mL, Intravenous, ONCE, On Wed09/16/21 at 0745, For 1 dose, Pr e-op tetracaine (PONTOCAINE) 0.5 % ophthalmic solution 1 Drop (COMPLE BRENDON) 0705 (Given - Provider: Bridget Sarmiento, VAISHALI) 1 Drop, See Admin Instructions, ONCE, On Wed09/16/21 at 0745, For 1 dose, Instill into operative eye prior to all other eye drops, Pre-op tropicamide (MYDRIACYL) 1 % ophthalmic solution 1 Drop (COMPLETE D) 0710 (Given - Provider: Bridget Sarmiento, VAISHALI)0733 (Given - Provider: Bridget Sarmiento, VAISHALI)0737 (Given - Provider: Bridget Sarmiento, VAISHALI) 1 Drop, See Admin Instructions, OTHER, S tarting on Wed09/16/21 at 0726, Until Wed09/16/21 at 0737, For 3 doses, Following tetracaine eye drop, instill 1 drop into operative eye every 5-10 minutes x 3, Pre-op PRN Medication Order 09/14/2021 09/15/2021 09/16/2021 acetaminophen (TYLENOL) tablet 650 mg 650 mg, Oral, ONCE PRN, Other, Mild Pain (pain score 1-4), Starting on Wed09/16/21 at 0859, Until Wed09/16/21 at 1113, For 1 dose, Give for mild pain or if patient prefers acetaminophen over other options for pain (all pain scores)., Post-op balance salt intraocular (BSS) ophthalmic solution 0844 (Given - Provider: Seymour Lui MD) ONCE PRN, Starting on Wed09/16/21 at 0844, Until Wed09/16/21 at 1113, Intra-op EPINEPHrine 0.025%-lidocaine 0.75% PF 0.8mL syringe 0844 (Given - Provider: Seymour Lui MD) ONCE PRN, Starting on Wed09/16/21 at 0844, Until Wed09/16/21 at 1113, Intra-op EPINEPHrine PF 0.5 mg in balance salt intraocular (BSS) 500 mL 0844 (Given - Provider: Syemour Lui MD) ONCE PRN, Starting on Wed09/16/21 at 0844, Intra-op lidocaine PF (XYLOCAINE) 1 % injection 0.1-0.3 mL 0.1-0.3 mL, Subcutaneous, PRN, Other, fo r IV insertion, Starting on Wed09/16/21 at 0726, For 1 day, Lidocaine to be used for IV starts unless patient refuses., Pre-op meperidine (DEMEROL) injection 12.5 mg 12.5 mg, Intravenous, [id number], Shiverin g, Starting on Wed09/16/21 at 0757, Until Wed09/16/21 at 1113, For 2 doses, Maximum cumulative dose is 25 mg. Do not give to patients receiving MAO inhibitors (e. g. phenelzine (NARDIL), tranylcypromine (PARNATE), selegiline (ELDEPRYL))., PACU/Recovery moxifloxacin (VIGAMOX) 0.3 MG/0.3ML ophthalmic injection 0844 (Given - Provider: Seymour Lui MD) ONCE PRN, Starting on Wed09/16/21 at 0844, Until Wed09/16/21 at 1113, Intra-op moxifloxacin (VIGAMOX) 0.5 % ophthalmic solution 44 (Given - Provider: Ogla Smith RN) ONCE PRN, Starting on Wed09/16/21 at 0844, Until Wed09/16/21 at 1113, Intra-op naloxone (NARCAN) injection 0.08 mg 0.08 mg, Intravenous, PRN, Other, For re spiratory rate less than 8/minute or patient difficult to arouse, Starting on Wed09/16/21 at 0757, Until Wed09/16/21 at 1113, May repeat every 3 minutes or until patient is responsive to physical stimul ation and is able to take deep breaths. Maximum cumulative dose is 0.4 mg (1 mL). Continue to observe; if no response after administering total dose of 0.4 mg notify anesthesiologist STAT., PACU/Recovery naloxone (NARCAN) injection 0.4 mg 0.4 mg, Intravenous, ONCE PRN, Opioid Re versal, Starting on Wed09/16/21 at 0757, Until Wed09/16/21 at 1113, For 1 dose, For imminent respiratory arrest. Notify MD if naloxone is given., PACU/Recovery ondansetron (ZOFRAN) injection 4 mg 4 mg, Intravenous, Q4H PRN, Nausea, Vomi ting, Starting on Wed09/16/21 at 0757, Until Wed09/16/21 at 1113, If multiple medications are ordered for nausea or vomiting - administer in the following priorit y based on medications ordered, effectiv eness and availability: ondansetron (ZOFRAN) > prochlorperazine (COMPAZINE) > diphenhydrAMINE (BENADRYL) > hydrOXYzine HCl (VISTARIL)> ePHEDrine > scopolamine (TRANSDERM-SCOP)., PACU/Recovery povidone-iodine (BETADINE) 5 % ophthalmic solution 0845 (Given - Provider: Olga Smith RN) ONCE PRN, Starting on Wed09/16/21 at 0845, Until Wed09/16/21 at 1113, Intra-op prednisoLONE acetate (PRED FORTE) 1 % ophthalmic suspension 0845 (Given - Provider: Olga Smith RN) ONCE PRN, Starting on Wed09/16/21 at 0845, Until Wed09/16/21 at 1113, Intra-op sodium chloride 0.9% injection 10 mL 10 mL, Intravenous, PRN, Line Patency, S tarting on Wed09/16/21 at 0726, Until Wed09/16/21 at 1113, Pre-op sodium hyaluronate (HELON DUET) ophthalmic injection 0845 (Given - Provider: Seymour Lui MD) ONCE PRN, Starting on Wed09/16/21 at 0845, Intra-op tetracaine (PONTOCAINE) 0.5 % ophthalmic solution 1 Drop 1 Drop, See Admin Instructions, ONCE PRN , Other, In operative eye if eye is not patched., Starting on Wed09/16/21 at 0859, For 1 dose, Instill 1 drop in operative eye if eye is not patched., Post-op tetracaine (PONTOCAINE) 0.5 % ophthalmic solution 0845 (Given - Provider: Olga Smith RN) ONCE PRN, Starting on Wed09/16/21 at 0845, Intra-op timolol (TIMOPTIC) 0.5 % ophthalmic solution 0845 (Given - Provider: Olga Smith RN) ONCE PRN, Starting on Wed09/16/21 at 0845, Until Wed09/16/21 at 1113, Intra-op documented in this encounter
--- OUTSIDE RECORDS SUMMARY | 2022-03-17 11:34 | XMS_ITS | Encounter Summary ---
:1945 Author Organization [facility] Address [address] [place] [address] Care Team Providers Name Role Phone Unavailable Primary Care Provider Unavailable Reason for Visit Reason Comments Post Op Exam Encounter Details Date Type Department Care Team Description 10/15/2021 Office Visit [place] [id number] Janette Bains Bil[place]a l pseudophakia Ophthalmology [facility] ([facility] Dx) [id number] [facility] [address] [place], [place] [address] [address] [place], [place] [phone] [id number] Social History Tobacco Use Types Packs/Day Years Used Date Smoking Tobacco: Never Assessed Sex Assigned at Date Recorded Not on file documented as of this encounter Progress Notes Janette Bains, OD - 10/15/2021 11:00 AM CDT Post Op Cataract surgery visit #3, both eyes. Satisfactory postoperative exam. Medical history, current medications, and allergies reviewed. Assessment: ICD-10-CM 1. Bilateral pseudophakia Z96.1 Refractive State, Determination Of - Bilateral Plan: 1. Rx given for optional prescription glasses. Otherwise, +2.50 OTC readers OK. Recommended startingBlink artifical tears QID for 1-2 weeks. If symptoms of irritation in RE persists or worsens, advised to call. Return as scheduled for glaucoma testing Per Dr. Seymour Arellano and in 1 year for CE. documented in this encounter Plan of Treatment Not on filedocumented as of this encounter Visit Diagnoses Diagnosis Bilateral pseudophakia - Primary Lens replaced by other means documented in this encounter
--- OUTSIDE RECORDS SUMMARY | 2022-03-17 11:34 | XMS_ITS | Encounter Summary ---
:1945 Author Organization [facility] Address [address] [place] [address] Care Team Providers Name Role Phone Unavailable Primary Care Provider Unavailable Reason for Visit Auth/Cert Specialty Diagnoses / Procedures Referred By Contact Refer red To Contact Diagnoses Nuclear sclerosis of right eye Procedures Cataract extraction with intraocular lens implant Referral ID Status Reason Start Date Expiration Date Visits Requ ested Visits Authorized [id number] 1 1 Encounter Details Date Type Department Care Team Description 09/02/2021 Anesthesia Event [facility] Remi Mars MD [facility] [address] [place] [address] [place], [place] [address] [address] [place] [address] [phone] (Wo rk) Anesthesia Record Procedure Summary Procedure Name Responsible Anesthesia Start Anesthesia Stop Anesthesiologist Time Time Cataract extraction Remi Mars MD 09/02/21 0822 2 0845 with intraocular lens implant (Right) Events Date Time Event Comment 09/02/2021 0821 0822 An Start Anesthesia start time denotes sedation started by PING currentl y on case; patient continuously monitored to O.R . By PING 0825 An Start Data 0825 Nasal Canula/O2 Mask 0842 an stop data 0845 Care Handoff Note I discussed wi th the receiving nurse and we: 1) Identified the p atient, bills family member(s) or patient surrogat e 2) Identified the responsible practitioner 3) Reviewed the pertinent medical history 4) Discu ssed the surgical/procedure course 5) Review ed intra-op anesthesia management and i ssues during anesthesia 6) Set expectations for the post-procedure period 7) Allowed opportun ity for questions and acknowledgement of understanding of report Electronically s igned by Raman Fung APRN, PING 0845 An Stop Care transferred . Name Total midazolam injection 2 mg/2 mL (VERSED) 2 mg fentaNYL injection (SUBLIMAZE) 50 mcg Lidocaine 3.5% Ophthalmic Gel 2 Drop Agents Name O2 Identified Agent Name Blood No blood administrations on file. Lines, Drains, and Airways Type Details Placement Removal Incision/Surgical Site 09/02/21; #1; No; 09/02/21 0000 by 0859 by Sclera; Right; Sonia Sanches, Mundo Rodriguez, 09/02/21; 0859 RN RN Peripheral IV Placement Date: 09/02/21 0735 by 09/02/21 0855 b y 09/02/21; Placement Bridget Sarmiento, Adelita Grijalva, Time: 734; RN Pre-existing: No; Inserted by?: RN; Size (Gauge): 22 G; Orientation: Posterior, Right; Site Prep: Chlorhexidine; Insertion attempts: 1; Patient Tolerance: Tolerated well; Removal Date: 09/02/21; Removal Time: 854; Removal Reason: Patient discharged; Catheter Tip: Intact documented in this encounter Social History Tobacco Use Types Packs/Day Years Used Date Smoking Tobacco: Never Assessed Sex Assigned at Date Recorded Not on file documented as of this encounter Miscellaneous Notes Anesthesia Postprocedure Evaluation - Remi Mars MD - 09/02/2021 9:05 AM CDT [facility] Anesthesia Post-op Note Patient: Rita Wesley Post-Op Diagnosis: Nuclear sclerosis of right eye Procedure Performed: Procedure(s): Right - Cataract extraction with intraocular lens implant - Wound Class: 1 CLEAN Anesthesia Type: MAC Post-op vital signs: Vitals Value Taken Time BP 118/70 09/02/21 0850 Temp 36.6 ??C (97.9 ??F) 09/02/21 0844 Pulse 65 09/02/21 0850 Resp 16 09/02/21 0850 SpO2 95 % 09/02/21 0850 Pain Score: Presence Of Pain: denies Preferred Pain Scale: number (Numeric Rating Pain Scale) Pain Rating (0-10): Rest: 0 Pain Rating (0-10): Activity: 0 Post-op assessment: No anesthesia complication. Patient location: Phase 2 Airway Status: Patent Cardiovascular function: Satisfactory Hydration status: Satisfactory PONV: None Level of Consciousness: Awake Fully Participates Postop Assessment: Patient tolerated procedure well. Electronically signed by: Remi Mars MD 09/02/2021 9:05 AM Anesthesia Preprocedure Evaluation - Remi Mars MD - 09/02/2021 7:45 AM CDT [facility] Anesthesia Pre-op Evaluation Procedure: Cataract extraction with intraocular lens implant, Right HPI: 76 y.o. old male with Nuclear sclerosis of right eye Last Fluid Intake Time: 1899 Last Fluid Intake Date: 09/01/21 Last Food Intake Date: 09/01/21 Last Food Intake Time: 1899 Allergies Allergen Reactions ??? Sulfa Antibiotics Hives No past medical history on file. Patient Active Problem List Diagnosis ??? Nuclear sclerosis of left eye No past surgical history on file. Outpatient Medications as of 09/02/2021 Medication Sig ??? dilTIAZem CD (CARDIZEM CD) 240 MG 24 hour release capsule ??? glipiZIDE (GLUCOTROL) 5 MG tablet ??? lisinopril-hydroCHLOROthiazide (PRINZIDE) 20-12.5 MG tablet ??? metoprolol tartrate (LOPRESSOR) 25 MG tablet ??? omeprazole (PRILOSEC) 20 MG capsule ??? tamsulosin (FLOMAX) 0.4 MG CAPS capsule Facility-Administered Medications as of 09/02/2021 Medication Dose Route Frequency ??? fentaNYL (SUBLIMAZE) injection 25-50 mcg 25-50 mcg Intravenous Q5MIN PRN ??? [COMPLETED] gatifloxacin (ZYMAXID) 0.5 % ophthalmic solution 1 Drop 1 Drop See Admin Instructions Other (See Comments) ??? lidocaine PF (XYLOCAINE) 1 % injection 0.1-0.3 mL 0.1-0.3 mL Subcutaneous PRN ??? meperidine (DEMEROL) injection 12.5 mg 12.5 mg Intravenous Q5MIN PRN ??? midazolam (VERSED) injection 1-2 mg 1-2 mg Intravenous Q5MIN PRN ??? naloxone (NARCAN) injection 0.08 mg 0.08 mg Intravenous PRN ??? naloxone (NARCAN) injection 0.4 mg 0.4 mg Intravenous ONCE PRN ??? ondansetron (ZOFRAN) injection 4 mg 4 mg Intravenous Q4H PRN ??? [COMPLETED] phenylephrine (AK-DILATE) 2.5 % ophthalmic solution 1 Drop 1 Drop See Admin Instructions Other (See Comments) ??? sodium chloride 0.9% injection 10 mL 10 mL Intravenous PRN ??? [COMPLETED] tetracaine (PONTOCAINE) 0.5 % ophthalmic solution 1 Drop 1 Drop See Admin Instructions Once ??? [COMPLETED] tropicamide (MYDRIACYL) 1 % ophthalmic solution 1 Drop 1 Drop See Admin InstructionsOther (See Comments) Labs: No results found for: SODIUM, K, CHLORIDE, CO2, BUN, CREATININE, GLUCOSE No results found for: WBC, HGB, HCT, PLTS No results found for: INR Blood Bank: No results found for: ABO, ABSCR EKG: No results found for this or any previous visit. Physical Exam: BP (!) 142/81 Pulse (!) 59 Temp 36.7 ??C (98.1 ??F) (Temporal Artery) Resp 16 Ht 5' 10 Wt86.2 kg (190 lb) SpO2 97% BMI 27.26 kg/m?? Assessment/Plan: Review of Systems NPO Status: Acceptable. Patient does not have GERD. Patient is not a current smoker. The patient denies alcohol use. Patient denies any recent URI. History of PONV: No. History of motion sickness: No. Patient denies any personal or family history of anesthesia complications (PONV). Exam Mental Status: Alert and oriented. Mallampati score: I (One). Mouth opening: Normal Thyromental Distance: > 3 finger breadths and Normal Neck Extension: Full Neck Circumference > 40 cm?: No Previous airway assessment: No prior intubations. Current airway assessment:Normal Cardiac Exam: Regular rate and rhythm. Respiratory Exam: Breath sounds clear to auscultation Assessment ASA Status: 2 . Plan Anesthesia type: MAC Induction: Intravenous Maintenance: PONV Risk Score Adult: 1 Anesthetic plan, risks, benefits and alternatives discussed with: Patient or Fleet Manager/Dispatch agree tothe anesthesia treatment plan. HTN DM H&P Reviewed and Patient examined, no change observed IV access Antibiotics per surgery Electronically signed by: Remi Mars MD 09/02/2021 7:45 AM documented in this encounter Plan of Treatment Not on filedocumented as of this encounter Visit Diagnoses Not on filedocumented in this encounter Administered Medications Inactive Administered Medications - up to 3 most recent administrations Medication Order MAR Action Action Date Dose Rate Site fentaNYL (SUBLIMAZE) injection Given 09/02/2021 8:22 AM CDT 50 mcg Intravenous, Starting on Wed09/02/21 at 0822, Until Wed09/02/21 at 0845 lidocaine (AKTEN) 3.5 % ophthalmic gel Given 09/02/2021 8:22 AM CDT 2 Drops Right Eye, Starting on Wed09/02/21 at 0822 midazolam (VERSED) injection Given 09/02/2021 8:26 AM CDT 1 mg Intravenous, Starting on Wed09/02/21 at 0822, Until Wed09/02/21 at 0845 Given 09/02/2021 8:22 AM CDT 1 mg documented in this encounter
--- OUTSIDE RECORDS SUMMARY | 2022-03-17 11:34 | XMS_ITS | Encounter Summary ---
:1945 Author Organization [facility] Address [address] [place] [address] Care Team Providers Name Role Phone Unavailable Primary Care Provider Unavailable Encounter Details Date Type Department Care Team Description 08/30/2021 Lab Visit [facility] Nuclea r sclerosis of right Laboratory eye [address] [place] [address] Social History Tobacco Use Types Packs/Day Years Used Date Smoking Tobacco: Never Assessed Sex Assigned at Date Recorded Not on file documented as of this encounter Plan of Treatment Not on filedocumented as of this encounter Procedures Procedure Name Priority Date/Time Associated Comments Diagnosis 2019 NOVEL Routine 08/30/2021 11:19 Nuclear sclerosis Result s for this CORONAVIRUS AM CDT of right eye procedure are i n the results section. documented in this encounter Results 2019 Novel Coronavirus (COVID-19) (08/30/2021 11:19 AM CDT) [facility] Method Time Signature COVID-19 Not Not 08/31/2021 [facility] Interpretation Detected Detected 12:48 AM CENTRAL LAB CDT Source Nares, left 08/31/2021 [facility] and right 12:48 AM CENTRAL LAB CDT Specimen Anatomical Collection Method Collection Time Receive d Time (Source) Location / / Volume Laterality Swab (Source ENTIRE ANTERIOR Non-blood 08/30/2021 11:19 08/31/19 22 Required) NARIS / Unknown Collection / AM CDT 11:49 AM CDT Unknown Narrative [facility] - 08/31/2021 12:48 AM CDT Test performed by Templer Head Mediated Amplification. TMA has been shown to be equivalent to commercial real-time PCR t ests. This test has been authorized by the FDA under Emergency Use Authorization (E UA) for use by authorized laboratories. Seymour Lui MD LAB_1 Performing Organization Address City/State/ZIP Code Phon e Number [facility] [address] [place] [address] documented in this encounter Visit Diagnoses Diagnosis Nuclear sclerosis of right eye documented in this encounter
--- OUTSIDE RECORDS SUMMARY | 2022-03-17 11:34 | XMS_ITS | Encounter Summary ---
:1945 Author [facility] Address [address] [place] [address] Care Team Providers Name Role Phone Unavailable Primary Care Provider Unavailable Reason for Visit Auth/Cert Specialty Diagnoses / Procedures Referred By Contact Refer red To Contact Diagnoses Nuclear sclerosis of left eye Procedures Cataract extraction with intraocular lens implant Referral ID Status Reason Start Date Expiration Date Visits Requ ested Visits Authorized [id number] 1 1 Encounter Details Date Type Department Care Team Description 09/16/2021 [facility] Seymour Lui MD Cataract extraction with [facility] [address] intraocular lens implant [address] 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 Instructed on 1 visitor for adults [...] 20.5 diopter lens SURGEON: Seymour Lui MD NIGHT CLERK AUDITOR: None. ANESTHESIA: Monitored Anesthesia Care with topical [...] Implant Name Type Inv. Item Serial No. Electrical Equipment Technician Lot No. LRB No. Used Action LENS IOL TECNIS ZCB00 20.5 - [id number] DEVICE LENS IOL TECNIS ZCB00 20.5 [id number] [employer] Left 1 Implanted documented [...] Glucose, Whole 148 70 - 180 09/16/2021 [place] Blood mg/dL 7:37 AM CDT LABORATORY Performing SDS MG 09/16/2021 [place] Location 7:37 AM CDT LABORATORY Specimen Anatomical Collection Method Collection Time Receive d Time (Source) Location / / Volume Laterality Blood 09/16/2021 7:36 AM 7:37 CDT AM CDT Seymour Lui MD LAB_1 Performing Organization Address City/State/ZIP Code Phon e Number [facility] [place] [address] [facility] [phone] documented in this encounter Visit Diagnoses Diagnosis Nuclear sclerosis of left eye documented in this encounter Admitting Diagnoses Diagnosis [...] (DEMEROL) injection 12.5 mg 12.5 mg, Intravenous, [id number], Shiverin g, Starting on Wed09/16/21 at 0757, [...] (COMPLE BRENDON) 0705 (Given - Provider: Bridget Sarmiento RN) 1 Drop, See Admin Instructions, ONCE, On Wed09/16/21 at 0745, For 1 dose, Instill into operative eye prior to all other eye drops, Pre-op tropicamide (MYDRIACYL) 1 % ophthalmic solution 1 Drop (COMPLETE D) 0710 (Given - Provider: Bridget Sarmiento RN)0733 (Given - Provider: Bridget Sarmiento RN)0737 (Given - Provider: Bridget Sarmiento RN) 1 [...] (BSS) 500 mL 0844 (Given - Provider: Seymour Lui MD) ONCE PRN, Starting on Wed09/16/21 at 0844, Intra-op lidocaine PF (XYLOCAINE) 1 % injection 0.1-0.3 mL 0.1-0.3 mL, Subcutaneous, PRN, Other, fo r IV insertion, Starting on Wed09/16/21 at 0726, For 1 day, Lidocaine to be used for IV starts unless patient refuses., Pre-op meperidine (DEMEROL) injection 12.5 mg 12.5 mg, Intravenous, [id number], Shiverin g, Starting on Wed09/16/21 at 0757, [...] Intra-op moxifloxacin (VIGAMOX) 0.5 % ophthalmic solution 0844 (Given - Provider: Olga Smith RN) ONCE [...]
--- OUTSIDE RECORDS SUMMARY | 2022-03-17 11:34 | XMS_ITS | Encounter Summary ---
:1945 Author Organization [facility] Address [address] [place] [address] Care Team Providers Name Role Phone Unavailable Primary Care Provider Unavailable Encounter Details Date Type Department Care Team Description 08/27/2021 Orders Only [facility] DEPARTMENT Provider, Gordon funk [place] [address] Social History Tobacco Use Types Packs/Day Years Used Date Smoking Tobacco: Never Assessed Sex Assigned at Date Recorded Not on file documented as of this encounter Plan of Treatment Not on filedocumented as of this encounter Procedures Procedure Name Priority Date/Time Associated Diagnosis Comme nts EKG 08/27/2021 Results for thi s procedure are in the resu lts section. documented in this encounter Results EKG (08/27/2021) Narrative This result has an attachment that is no t available. Interface Provider EKG documented in this encounter Visit Diagnoses Not on filedocumented in this encounter
--- OUTSIDE RECORDS SUMMARY | 2022-03-17 11:34 | XMS_ITS | Encounter Summary ---
:1945 Author Organization [facility] Address [address] [place] [address] Care Team Providers Name Role Phone Unavailable Primary Care Provider Unavailable Reason for Visit Auth/Cert Specialty Diagnoses / Procedures Referred By Contact Refer red To Contact Diagnoses Nuclear sclerosis of left eye Procedures Cataract extraction with intraocular lens implant Referral ID Status Reason Start Date Expiration Date Visits Requ ested Visits Authorized [id number] 1 1 Encounter Details Date Type Department Care Team Description 09/16/2021 Anesthesia Event [facility] Same Day Rosy Medrano MD [facility] [address] [facility] [address] [place] [address] [phone] Anesthesia Record Procedure Summary Procedure Name Responsible Anesthesia Start Anesthesia Stop Anesthesiologist Time Time Cataract extraction Rosy Medrano MD 09/16/21 0832 2 0857 with intraocular lens implant (Left: Eye) Events Date Time Event Comment 09/16/2021 0821 0832 An Start 0836 An Start Data 0836 Nasal Canula/O2 Mask 0838 MD/DO Present 0850 an stop data 0851 MD/DO Present 0857 Care Handoff Note I discussed wi th [...] understanding of report Electronically s igned by Sarah Wilson APRN, [employer] MANAGER 0857 An Stop Care transferred . Name Total midazolam injection 2 mg/2 mL (VERSED) 2 mg fentaNYL injection (SUBLIMAZE) 50 mcg Lidocaine 3.5% Ophthalmic Gel 2 Drop sodium chloride 0.9% for injection (for flushes) 10 mL Agents Name O2 Identified Agent Name Blood No blood administrations on file. Lines, Drains, and Airways Type Details Placement Removal Incision/Surgical Site 09/16/21; #1; No; Eye; 09/16/21 0000 by 0 09/16/21 0908 by Left; 09/16/21; 0908 Olga Smith RN Lovick, Nancy A, RN Peripheral IV Placement Date: 09/16/[address] by 09/16/21 0909 b y 09/16/21; Placement Bridget Sarmiento RN Lovick, Nancy A, RN Time: 732; Pre-existing: No; Inserted by?: RN; Size (Gauge): 22 G; Orientation: Right; Site Prep: Chlorhexidine; Insertion attempts: 1; Patient Tolerance: Tolerated well; Removal Date: 09/16/21; Removal Time: 908; Removal Reason: No longer needed documented in this encounter Social History Tobacco Use Types Packs/Day Years Used Date Smoking Tobacco: Never Assessed Sex Assigned at Date Recorded Not on file documented as of this encounter Miscellaneous Notes Anesthesia Postprocedure Evaluation - Rosy Medrano MD - 09/16/2021 9:16 AM CDT [facility] Anesthesia Post-op Note Patient: Rita Wesley Post-Op Diagnosis: Nuclear sclerosis of left eye Procedure Performed: Procedure(s): Left - Cataract extraction with intraocular lens implant - Wound Class: 1 CLEAN Anesthesia Type: MAC Post-op vital signs: Vitals Value Taken Time BP 129/70 09/16/21 0900 Temp 36 ??C (96.8 ??F) 09/16/21 0856 Pulse 68 09/16/21 0900 Resp 16 09/16/21 0900 SpO2 97 % 09/16/21 09 Pain Score: Presence Of Pain: denies Preferred Pain Scale: number (Numeric Rating Pain Scale) Pain Rating (0-10): Rest: 0 Pain Rating (0-10): Activity: 0 Post-op assessment: No anesthesia complication. Patient location: Phase 2 Airway Status: Patent Cardiovascular function: Satisfactory Hydration status: Satisfactory PONV: None Level of Consciousness: Awake Fully Participates Postop Assessment: Patient tolerated procedure well. Electronically signed by: Rosy Medrano MD 09/16/2021 9:16 AM Anesthesia Preprocedure Evaluation - Rosy Medrano MD - 09/16/2021 8:01 AM CDT [facility] Anesthesia Pre-op Evaluation Procedure: Cataract extraction with intraocular lens implant, Left HPI: 76 y.o. old male with Nuclear sclerosis of left eye Last Fluid Intake Time: 1800 Last Fluid Intake Date: 09/15/21 Last Food Intake Date: 09/15/21 Last Food Intake Time: 1800 Allergies Allergen Reactions ??? Sulfa Antibiotics Hives No past medical history on file. Patient Active Problem List Diagnosis ??? Nuclear sclerosis of left eye Past Surgical History: Procedure Laterality Date ??? CATARACT REMOVAL Right 09/02/2021 ZCB00 +20.5 D - JPO Outpatient Medications as of 09/16/2021 Medication Sig ??? dilTIAZem CD (CARDIZEM CD) 240 MG 24 hour release capsule ??? glipiZIDE (GLUCOTROL) 5 MG tablet ??? lisinopril-hydroCHLOROthiazide (PRINZIDE) 20-12.5 MG tablet ??? metoprolol tartrate (LOPRESSOR) 25 MG tablet ??? omeprazole (PRILOSEC) 20 MG capsule ??? tamsulosin (FLOMAX) 0.4 MG CAPS capsule Facility-Administered Medications as of 09/16/2021 Medication Dose Route Frequency ??? [COMPLETED] gatifloxacin (ZYMAXID) 0.5 % ophthalmic solution 1 Drop 1 Drop See Admin Instructions Other (See Comments) ??? [COMPLETED] gatifloxacin (ZYMAXID) 0.5 % ophthalmic solution 1 Drop 1 Drop See Admin Instructions Other (See Comments) ??? lidocaine PF (XYLOCAINE) 1 % injection 0.1-0.3 mL 0.1-0.3 mL Subcutaneous PRN ??? meperidine (DEMEROL) injection 12.5 mg 12.5 mg Intravenous Q5MIN PRN ??? naloxone (NARCAN) injection 0.08 mg 0.08 mg Intravenous PRN ??? naloxone (NARCAN) injection 0.4 mg 0.4 mg Intravenous ONCE PRN ??? ondansetron (ZOFRAN) injection 4 mg 4 mg Intravenous Q4H PRN ??? [COMPLETED] phenylephrine (AK-DILATE) 2.5 % ophthalmic solution 1 Drop 1 Drop See Admin Instructions Other (See Comments) ??? [COMPLETED] phenylephrine (AK-DILATE) 2.5 % ophthalmic solution 1 Drop 1 Drop See Admin Instructions Other (See Comments) ??? [COMPLETED] sodium chloride 0.9% injection 10 mL 10 mL Intravenous Once ??? sodium chloride 0.9% injection 10 mL 10 mL Intravenous PRN ??? [COMPLETED] tetracaine (PONTOCAINE) 0.5 % ophthalmic solution 1 Drop 1 Drop See Admin Instructions Once ??? [COMPLETED] tetracaine (PONTOCAINE) 0.5 % ophthalmic solution 1 Drop 1 Drop See Admin Instructions Once ??? [COMPLETED] tropicamide (MYDRIACYL) 1 % ophthalmic solution 1 Drop 1 Drop See Admin InstructionsOther (See Comments) ??? [COMPLETED] tropicamide (MYDRIACYL) 1 % ophthalmic solution 1 Drop 1 Drop See Admin InstructionsOther (See Comments) Labs: No results found for: SODIUM, K, CHLORIDE, CO2, BUN, CREATININE, GLUCOSE No results found for: WBC, HGB, HCT, PLTS No results found for: INR Blood Bank: No results found for: ABO, ABSCR EKG: No results found for this or any previous visit. Physical Exam: BP 134/70 Pulse 63 Temp 36.1 ??C (97 ??F) (Temporal Artery) Resp 16 SpO2 96% Assessment/Plan: Review of Systems NPO Status: Acceptable. [...] Full Neck Circumference > 40 cm?: No Current airway assessment:Normal Dentition: Age appropriate. Cardiac Exam: Regular rate and rhythm. Respiratory Exam: Breath sounds clear to auscultation Assessment ASA Status: 2 . Plan Anesthesia type: MAC Induction: Intravenous Maintenance: TIVA PONV Risk Score Adult: 1 Anesthetic plan, risks, benefits and alternatives discussed with: Patient or Teacher Lip Reading agree tothe anesthesia treatment plan and Patient. Possibility of blood products discussed. The patient and/or their career services representative were notified about the potential risks of damage to the lips, teeth, dental devices, mouth and airway. H&P Reviewed and Patient examined, no change observed IV access Antibiotics per surgery Electronically signed by: Rosy Medrano MD 09/16/2021 8:01 AM documented in this encounter Plan of Treatment Not on filedocumented as of this encounter Visit Diagnoses Not on filedocumented in this encounter Administered Medications Inactive Administered Medications - up to 3 most recent administrations Medication Order MAR Action Action Date Dose Rate Site fentaNYL (SUBLIMAZE) injection Given 09/16/2021 8:32 AM CDT 50 mcg Intravenous, Starting on Wed09/16/21 at 0832, Until Wed09/16/21 at 0857 lidocaine (AKTEN) 3.5 % ophthalmic gel Given 09/16/2021 8:32 AM CDT 2 Drops Left Eye, Starting on Wed09/16/21 at 0832 midazolam (VERSED) injection Given 09/16/2021 8:32 AM CDT 2 mg Intravenous, Starting on Wed09/16/21 at 0832, Until Wed09/16/21 at 0857 sodium chloride 0.9% injection Given 09/16/2021 8:32 AM CDT 10 mL Intravenous, Starting on Wed09/16/21 at 0832, Until Wed09/16/21 at 0857 documented in this encounter
--- OUTSIDE RECORDS SUMMARY | 2022-03-17 11:34 | XMS_ITS | Encounter Summary ---
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 [address] Social History Tobacco Use Types Packs/Day Years Used Date Smoking Tobacco: Never Assessed Sex Assigned at Date Recorded Not on file documented as of this encounter Progress Notes Seymour Lui MD - 01/16/2022 1:00 PM CDT Rita Wesley is here for HVF 24-2, OCT, pach and IOP today. Results of the tests will be sent to Dr. Lui who will report the results to the patient. HVF and OCT available for review in FORUM. Next appt: No future appt scheduled at this time. Contact message okay - yes Current Eyedrops - none Fixation: R good L good Comments: none Glaucoma suspect, both eyes. Based on C:D. IOP stable. No drops Open angles Optic nerves: 0.6 BE OCT 01/16/22 baseline RE: Thin N LE: wnl Visual mcnally: 01/16/22 baseline RE: Reliable, non-sp sup changes LE: Reliable, wnl CCT: 516/509 Plan: -Overall normal, monitor .Will call with results. IOP check 6 months, repeat testing 1 year. documented in this encounter Plan of Treatment Not on filedocumented as of this encounter Visit Diagnoses Diagnosis Suspected glaucoma of both eyes documented in this encounter
--- OUTSIDE RECORDS SUMMARY | 2022-03-17 11:34 | XMS_ITS | Encounter Summary ---
:1945 Author Organization [facility] Address [address] [place] [address] Care Team Providers Name Role Phone Unavailable Primary Care Provider Unavailable Encounter Details Date Type Department Care Team Description 04/11/2021 Orders Only HIM DEPARTMENT Provider, Gordon funk [place] [address] Social History Tobacco Use Types Packs/Day Years Used Date Smoking Tobacco: Never Assessed Sex Assigned at Date Recorded Not on file documented as of this encounter Plan of Treatment Not on filedocumented as of this encounter Procedures Procedure Name Priority Date/Time Associated Diagnosis Comme nts EYE PENTACAM 04/11/2021 Results for thi s procedure are in the resu lts section. documented in this encounter Results EYE PENTACAM (04/11/2021) Narrative This result has an attachment that is no t available. Interface Provider DUMMY/OTHER/AR documented in this encounter Visit Diagnoses Not on filedocumented in this encounter
--- OUTSIDE RECORDS SUMMARY | 2022-03-17 11:34 | XMS_ITS | Encounter Summary ---
:1945 Author Organization [employer] Address [address] [place] [address] Care Team Providers Name Role Phone Unavailable Primary Care Provider Unavailable Reason for Referral Procedure/Equipment (Routine) - Incomplete Specialty Diagnoses / Procedures Referred By Contact Refer red To Contact Diagnoses Nuclear sclerosis of right eye Seymour Lui MD Procedures Case Request OR - Ophthalmology Surgery: Cataract extraction with intraocular lens implant [address] [place], [place] [address] Referral ID Status Reason Start Date Expiration Date Visits V isits Requested Authorized [id number] Incomplete 04/11/2021 07/11/2022 1 1 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 Procedure/Equipment (Routine) - Incomplete Specialty Diagnoses / Procedures Referred By Contact Refer red To Contact Diagnoses Nuclear sclerosis of left eye Seymour Lui MD Procedures Case Request OR - Ophthalmology Surgery: Cataract extraction with intraocular lens implant [address] [place], [place] [address] Referral ID Status Reason Start Date Expiration Date Visits V isits Requested Authorized [id number] Incomplete 04/11/2021 07/11/2022 1 1 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 Reason for Visit Reason Comments CONSULT Encounter Details Date Type Department Care Team Description 04/11/2021 Office Visit Seymour Catalan, 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); Ophthalmology MD Nuclear sclerosis of right eye; [address] [place] [address] [place] Type 2 diabetes mellitus wit hout complication, without long-term current use of insulin (HRC); [address] Posterior vitreous [place] [address] [phone] Social History Tobacco Use Types Packs/Day Years Used Date Smoking Tobacco: Never Assessed Sex Assigned at Date Recorded Not on file documented as of this encounter Progress Notes Seymour Lui MD - 04/11/2021 9:00 AM CST I reviewed the information stated in the refractory technician's note for today and agree, unless otherwise noted below. I reviewed the patient's past medical history, medications, family history, and social history. General: Generally healthy appearing. Alert and oriented x 3. Subjective: see tech note, agree. Impression: Visually significant cataract, both eyes The patient feels that the cataract is significantly impacting daily activities and has elected to proceed with cataract surgery. Schedule cataract extraction and IOL implantation (CEIOL) both eyes, RIGHT eye first -Pt selects standard IOL for distance focus, both eyes -Declined adv tech options Will plan for topical anesthesia Refractive Goal: Manteno Dilation: 7mm Flomax?: YES Malyugin Ring?: No Trypan?: No The patient understands condition, prognosis and need for follow up care. We reviewed the indications, risks, benefits, and alternatives of cataract surgery. Risks of cataract surgery include but are not limited to infection, persistent inflammation, bleeding in the eye, retained pieces of cataract inside the eye, corneal swelling or decompensation, ocular surface irregularity, detachment or swellingof the retina, new floaters in the vision, iris or pupil irregularities, drooping of the eyelid, pain/discomfort, glaucoma, an imbalance between the eyes and/or double vision, possible need for intraocular lens implant repositioning, implant exchange or removal, or problems with anesthesia. The patient understands that complications can result in poor vision, loss of vision, or loss of the eye and may result in the need for additional surgery. The cataract surgery consent form will be read and signed by the patient. Refractive and visual goals and expectations reviewed at length. The types of intraocular lenses andsurgical approaches were reviewed with the patient along with a discussion of their various strengths and weaknesses. This includes femtosecond laser and Standard, Toric, and Multifocal lens options. The choice of IOL and the post-operative planned refractive error was discussed with the patient. It was emphasized that no guarantee has been made or implied regarding the need for glasses following planned cataract surgery. The patient understands that regardless of IOL choice they may still need glasses postoperatively for distance, near or both for best vision. The patient understands that it is pos sible that the targeted refractive power may vary significantly from what is predicted. The patient was given an opportunity to ask any and all questions and was provided with answers that the patient clearly understood. At the conclusion of the visit, the patient felt knowledgeable enough to make an informed decision regarding treatment. With any procedure there is a small but inherent risk of acquiring infection including, but not limited to, the novel coronavirus (COVID-19). Please be aware that there is a potential for your procedure or surgery to be postponed, or possibly canceled, if you should test positive for COVID-19. There is also a potential for postponement of your procedure if there is a significant reduction in resources required to safely perform your procedure. Glaucoma suspect, both eyes. Based on C:D. IOP stable. -Monitor PVD, right eye. Stable. Discussed. 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 encounter Plan of Treatment Not on filedocumented as of this encounter Results 2019 Novel Coronavirus (COVID-19) (09/13/2021 10:55 AM CDT) [facility] Method Time Signature COVID-19 Not Not 09/14/2021 [facility] Interpretation Detected Detected 12:07 AM CENTRAL LAB CDT Source Nares, left 09/14/2021 [facility] and right 12:07 AM CENTRAL LAB CDT Specimen Anatomical Collection Method Collection Time Receive d Time (Source) Location / / Volume Laterality Swab (Source Non-blood 09/13/2021 10:55 09/13/2021 Required) Collection / AM CDT 11:02 AM CDT Unknown Narrative [facility] C[facility]AL [facility] - 09/14/2021 12:07 AM CDT Test performed by Basket Person Mediated Amplification. TMA has been shown to be equivalent to commercial real-time PCR t ests. This test has been authorized by the FDA under Emergency Use Authorization (E UA) for use by authorized laboratories. Seymour Lui MD LAB_1 Performing Organization Address [facility] Phon e Number [facility] [address] [address] 2019 Novel Coronavirus (COVID-19) (08/30/2021 11:19 AM CDT) [facility] Method Time Signature COVID-19 Not Not 08/31/2021 [facility] Interpretation Detected Detected 12:48 AM CENTRAL LAB CDT Source Nares, left 08/31/2021 [facility] and right 12:48 AM CENTRAL LAB CDT Specimen Anatomical Collection Method Collection Time Receive d Time (Source) Location / / Volume Laterality Swab (Source ENTIRE ANTERIOR Non-blood 08/30/2021 11:19 08/31/19 22 Required) NARIS / Unknown Collection / AM CDT 11:49 AM CDT Unknown Narrative [facility] - 08/31/2021 12:48 AM CDT Test performed by Basket Person Mediated Amplification. TMA has been shown to be equivalent to commercial real-time PCR t ests. This test has been authorized by the FDA under Emergency Use Authorization (E UA) for use by authorized laboratories. Seymour Lui MD LAB_1 Performing Organization Address [facility] Code Phon e Number [facility] [address] [address] documented in this encounter Visit Diagnoses Diagnosis Nuclear sclerosis of left eye - Primary Nuclear sclerosis of right eye Type 2 diabetes mellitus without complic ation, without long-term current use of insulin (HRC) Posterior vitreous detachment of right e ye Vitreous degeneration documented in this encounter
--- OUTSIDE RECORDS SUMMARY | 2022-03-17 11:34 | XMS_ITS | Encounter Summary ---
:1945 Author Organization [facility] Address [address] [place] [address] Care Team Providers Name Role Phone Unavailable Primary Care Provider Unavailable Reason for Visit Reason Comments Phone Call Encounter Details Date Type Department Care Team Description 12/31/2021 Telephone [facility] 3900 Self-Referral, Patient , Phone Call Ophthalmology [address] [place] [address] [place] [address] [phone] Social History Tobacco Use Types Packs/Day Years Used Date Smoking Tobacco: Never Assessed Sex Assigned at Date Recorded Not on file documented as of this encounter Nursing Notes Anika Carter - 12/31/2021 10:35 AM CDT Called and talked with pt. He needs to reschedule his test on 01/07. He is scheduled for HVF on 01/07.I explained that this is not for diabetes and gave him the eye dept call center number to get rescheduled. Raymond Whitaker - 12/31/2021 9:12 AM CDT Patient's called in wondering what the phone number is of the clinic that you referred him to for Diabetes. She didn't know the name of it. Please call back to discuss. documented in this encounter Plan of Treatment Not on filedocumented as of this encounter Visit Diagnoses Not on filedocumented in this encounter
--- OUTSIDE RECORDS SUMMARY | 2022-03-17 11:34 | XMS_ITS | Encounter Summary ---
:1945 Author Organization [facility] Address [address] [place] [address] Care Team Providers Name Role Phone Unavailable Primary Care Provider Unavailable Encounter Details Date Type Department Care Team Description 04/11/2021 Orders Only HIM DEPARTMENT Provider, Gordon funk [place] [address] Social History Tobacco Use Types Packs/Day Years [...]
--- OUTSIDE RECORDS SUMMARY | 2022-03-17 11:34 | XMS_ITS | Encounter Summary ---
:1945 Author Organization [employer] Address [address] [place] [address] Care Team Providers Name Role Phone Unavailable Primary Care Provider Unavailable Reason for Visit Reason Comments Post Op Exam Encounter Details Date Type Department Care Team Description 09/17/2021 Office Visit [place] Seymour Lui, Pseudophak ia (Primary Dx); Ophthalmology MD Suspected glaucoma of both eyes [address] [place] [address] [facility] [address] [place] [address] [phone] Social History Tobacco Use Types Packs/Day Years Used Date Smoking Tobacco: Never Assessed Sex Assigned at Date Recorded Not on file documented as of this encounter Progress Notes Seymour Lui MD - 09/17/2021 11:00 AM CDT I reviewed the information stated in the precision agriculture technician's note for today and agree, unless otherwise noted below. I reviewed the patient's past medical history, medications, family history, and social history. General: Generally healthy appearing. Alert and oriented x 3. Subjective: see tech note, agree. Impression: Postoperative day 1 s/p cataract extraction with intraocular lens implantation, left eye Good postoperative appearance. Patient is doing well. -Postoperative instructions and restrictions were reviewed with the patient including use of eye drops -Patient advised to call if any problems, questions or concerns -Prednisolone QID, 4-3-2-1 taper -Moxifloxacin QID x 1 week -Ketorolac QID x 1 week then TID x 1 week -RTC 3-4 weeks for final post op refraction Postoperative week 2 s/p cataract extraction with intraocular lens implantation, right eye Good postoperative appearance. Patient is doing well. -Finish all postoperative eye drops Glaucoma suspect, both eyes. Based on C:D. IOP stable. -HVF, OCTrnfl and pachy 3 months, I will call with results and follow up PVD, right eye. Stable. Discussed. -RD precautions reviewed Type II Diabetes Mellitus -No active diabetic retinopathy is present on examination -BS/BP control documented in this encounter Plan of Treatment Not on filedocumented as of this encounter Visit Diagnoses Diagnosis Pseudophakia - Primary Lens replaced by other means Suspected glaucoma of both eyes documented in this encounter
--- OUTSIDE RECORDS SUMMARY | 2022-03-17 11:34 | XMS_ITS | Encounter Summary ---
:1945 Author Organization [facility] Address [address] [place] [address] Care Team Providers Name Role Phone Unavailable Primary Care Provider Unavailable Reason for Visit Auth/Cert Specialty Diagnoses / Procedures Referred By Contact Refer red To Contact Diagnoses Nuclear sclerosis of right eye Procedures Cataract extraction with intraocular lens implant Referral ID Status Reason Start Date Expiration Date Visits Requ ested Visits Authorized [id number] 1 1 Encounter Details Date Type Department Care Team Description 09/02/2021 Surgery [facility] Same Day Seymour Lui MD Cataract extraction with Surgery Center [address] [place] intraocular lens implant [address] [place] [address] [phone] (Wo rk) Social History Tobacco Use Types Packs/Day Years Used Date Smoking Tobacco: Never Assessed Sex Assigned at Date Recorded Not on file documented as of this encounter Last Filed Vital Signs Vital Sign Reading Time Taken Comments Blood Pressure 142/81 09/02/2021 7:31 AM CDT Pulse 59 09/02/2021 7:31 AM CDT Temperature 36.7 ??C (98.1 ??F) 09/02/2021 7:31 AM CDT Respiratory Rate 16 09/02/2021 7:31 AM CDT Oxygen Saturation 97% 09/02/2021 7:31 AM CDT Inhaled Oxygen Concentration - - [...] 20.5 diopter lens SURGEON: Seymour Lui MD SUPERINTENDENT SALES: None. ANESTHESIA: Monitored Anesthesia Care with topical [...] Implant Name Type Inv. Item Serial No. Coverstitch Elastic Attacher Lot No. LRB No. Used Action LENS IOL TECNIS ZCB00 20.5 - [id number] DEVICE LENS IOL TECNIS ZCB00 20.5 [id number] [employer] Right 1 Implanted documented [...] Glucose, Whole 125 70 - 180 09/02/2021 [facility] Blood mg/dL 7:40 AM CDT LABORATORY Performing SDS MG 09/02/2021 [facility] Location 7:40 AM CDT LABORATORY Specimen Anatomical Collection Method Collection Time Receive d Time (Source) Location / / Volume Laterality Blood 09/02/2021 7:38 AM 7:40 CDT AM CDT Seymour Lui MD LAB_1 Performing Organization Address City/State/ZIP Code Phon e Number [facility] [place] [address] [facility] [place] [phone] documented in this encounter Visit Diagnoses Diagnosis Nuclear sclerosis of left eye - Primary Nuclear sclerosis of right eye Plan of Care - Iris Nair RN - 08/29/2021 2:17 PM CDT PPA call completed by calling [phone] spoke to patient. Advised of arrival time [...] (SUBLIMAZE) injection 25-50 mcg 25-50 mcg, Intravenous, [id number], Pain, Procedure, Starting on Wed09/02/21 at 0722, [...] (DEMEROL) injection 12.5 mg 12.5 mg, Intravenous, [id number], Shiverin g, Starting on Wed09/02/21 at 0708, Until Wed09/02/21 at 1100, For 2 doses, Maximu m cumulative dose is 25 mg. Do not give to patients receiving MAO inhibitors (e.g. phenelzine (NA RDIL), tranylcypromine (PARNATE), selegiline (ELDEPRYL))., PACU/Recovery midazolam (VERSED) injection 1-2 mg 1-2 mg, Intravenous, [id number], Sedation, Anxiety, Proc edure, Starting on Wed09/02/21 [...] % ophthalmic solution 1 Drop (COMPLET ED) 0730 (Given - Provider: Bridget Sarmiento RN)0735 (Given - Provider: Bridget Sarmiento, VAISHALI)0740 (Given - Provider: Bridget Sarmiento RN) 1 Drop, See Admin Instructions, OTHER, S tarting on Wed09/02/21 at 0721, Until Wed09/02/21 at 0740, For 3 doses, Following tetracaine eye drop, instill 1 drop into operative eye every 5-10 minutes x 3, Pre-op phenylephrine (AK-DILATE) 2.5 % ophthalmic solution 1 Drop (COMP LETED) 0730 (Given - Provider: Bridget Sarmiento RN)0735 (Given - Provider: Bridget Sarmiento, VAISHALI)0740 (Given - Provider: Bridget Sarmiento RN) 1 [...] (SUBLIMAZE) injection 25-50 mcg 25-50 mcg, Intravenous, [id number], Pain, Procedure, Starting on Wed09/02/21 at 0722, Until Wed09/02/21 at 1100, For 2 doses, As directed by anesthesiologist, Pre-op lidocaine PF (XYLOCAINE) 1 % injection 0.1-0.3 mL 0.1-0.3 mL, Subcutaneous, PRN, Other, fo r IV insertion, Starting on Wed09/02/21 at 0721, For 1 day, Lidocaine to be used for IV starts unless patient refuses., Pre-op meperidine (DEMEROL) injection 12.5 mg 12.5 mg, Intravenous, [id number], Shiverin g, Starting on Wed09/02/21 at 0708, Until Wed09/02/21 at 1100, For 2 doses, Maximum cumulative dose is 25 mg. Do not give to patients receiving MAO inhibitors (e. g. phenelzine (NARDIL), tranylcypromine (PARNATE), selegiline (ELDEPRYL))., PACU/Recovery midazolam (VERSED) injection 1-2 mg 1-2 mg, Intravenous, [id number], Sedation, Anxiety, Procedure, Starting on Wed09/02/21 at 0722, Until Wed09/02/21 at 1100, As directed by anesthesiologist MAX Dose 2mg, Pre-op moxifloxacin (VIGAMOX) 0.3 MG/0.3ML ophthalmic injection 08 (Given - Provider: Seymour Lui MD) ONCE [...] PACU/Recovery povidone-iodine (BETADINE) 5 % ophthalmic solution 0833 (Given - Provider: Sonia Sanches RN) ONCE PRN, Starting on Wed09/02/21 at 0833, Until Wed09/02/21 at 1100, Intra-op prednisoLONE acetate (PRED FORTE) 1 % ophthalmic suspension 08 (Given - Provider: Sonia Sanches RN) ONCE PRN, Starting on Wed09/02/21 at 0833, Until Wed09/02/21 at 1100, Intra-op sodium chloride 0.9% injection 10 mL 0736 (Given - Provider: Bridget Sarmiento RN) 10 [...] Post-op tetracaine (PONTOCAINE) 0.5 % ophthalmic solution 08 (Given - Provider: Sonia Sanches RN) ONCE PRN, Starting on Wed09/02/21 at 0833, Intra-op timolol (TIMOPTIC) 0.5 % ophthalmic solution 832 (Given - Provider: Sonia Sanches RN) ONCE PRN, Starting on Wed09/02/21 at 0833, Until Wed09/02/21 at 1100, Intra-op documented in this encounter
--- OUTSIDE RECORDS SUMMARY | 2022-03-17 11:34 | XMS_ITS | Encounter Summary ---
:1945 Author Organization [facility] Address [address] [place] [address] Care Team Providers Name Role Phone Unavailable Primary Care Provider Unavailable Encounter Details Date Type Department Care Team Description 09/13/2021 Lab Visit [facility] Nuclea r sclerosis of left Laboratory eye [address] [place] [address] Social History Tobacco Use Types Packs/Day Years Used Date Smoking Tobacco: Never Assessed Sex Assigned at Date Recorded Not on file documented as of this encounter Plan of Treatment Not on filedocumented as of this encounter Procedures Procedure Name Priority Date/Time Associated Comments Diagnosis 2019 NOVEL Routine 09/13/2021 10:55 Nuclear sclerosis Result s for this CORONAVIRUS AM CDT of left eye procedure are i n the results section. documented in this encounter Results 2019 Novel Coronavirus (COVID-19) (09/13/2021 10:55 AM CDT) [facility] Method Time Signature COVID-19 Not Not 09/14/2021 [facility] Interpretation Detected Detected 12:07 AM CENTRAL LAB CDT Source Nares, left 09/14/2021 [facility] and right 12:07 AM CENTRAL LAB CDT Specimen Anatomical Collection Method Collection Time Receive d Time (Source) Location / / Volume Laterality Swab (Source Non-blood 09/13/2021 10:55 09/13/2021 Required) Collection / AM CDT 11:02 AM CDT Unknown Narrative [facility] - 09/14/2021 12:07 AM CDT Test performed by Aquatics Manager Mediated Amplification. TMA has been shown to be equivalent to commercial real-time PCR t ests. This test has been authorized by the FDA under Emergency Use Authorization (E UA) for use by authorized laboratories. Seymour Lui MD LAB_1 Performing Organization Address City/State/ZIP Code Phon e Number [facility] [address] [address] documented in this encounter Visit Diagnoses Diagnosis Nuclear sclerosis of left eye documented in this encounter
--- OUTSIDE RECORDS SUMMARY | 2022-03-17 11:34 | XMS_ITS | Encounter Summary ---
:1945 Author Organization [employer] Address [address] [place] [address] Care Team Providers Name Role Phone Unavailable Primary Care Provider Unavailable Reason for Visit Reason Comments RESULTS, TEST Encounter Details Date Type Department Care Team Description 01/19/2022 Telephone [facility] [address] Seymour Lui MD RESULTS, TEST Ophthalmology [address] [place] [address] [place], [place] [address] [phone] Social History Tobacco Use Types Packs/Day Years Used Date Smoking Tobacco: Never Assessed Sex Assigned at Date Recorded Not on file documented as of this encounter Nursing Notes Wendie Lyons - 01/19/2022 12:59 PM CDT Pt was call and they will call back to make the 6 months IOP malini Wendie Lyons - 01/19/2022 12:58 PM CDT ----- Message from Seymour Lui MD sent at 01/19/2022 12:19 PM CDT ----- Please call w/glc testing - testing was normal. Recommend IOP check with me in 6 months. documented in this encounter Plan of Treatment Not on filedocumented as of this encounter Visit Diagnoses Not on filedocumented in this encounter
--- OUTSIDE RECORDS SUMMARY | 2022-03-17 11:35 | XMS_ITS | Encounter Summary ---
:1945 Author Organization [facility] Address [address] [place] [address]. [place] [address] Care Team Providers Name Role Phone None, Bfp Primary Care Provider Unavailable Reason for Visit Reason Onset Date Comments Diabetes Education 06/04/2008 Encounter Details Date Type Department Care Team Description 06/04/2008 Telephone [facility] Apryl Barragan, java core developer [facility] [address] [address] [place] [address] [phone] (Wo rk) Social History Tobacco Use Types Packs/Day Years Used Date Smoking Tobacco: Never Assessed Sex Assigned at Date Recorded Not on file documented as of this encounter Miscellaneous Notes Telephone Encounter - Apryl Cortez - 06/04/2008 4:50 PM CST Received patient's 7 day food and glucose log. FBG slightly elevated or right on the border: 116-134; other values are within goal. No record kept of activity. Portions not always indicated. Called patient to discuss the above. He and his are leaving for [place] shortly, to stay for several months. Will not be attending classes; doubt he will when he comes back. He is active every day, but no planned activity. He has cut down intake of regular pop; maybe once a week. Encouraged him to have a consistent bedtime snack to lower FBG. FU prn. 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
--- OUTSIDE RECORDS SUMMARY | 2022-03-17 11:35 | XMS_ITS | Encounter Summary ---
:1945 Author Organization [facility] Address [address] [place] [address] Care Team Providers Name Role Phone Unavailable Primary Care Provider Unavailable Encounter Details Date Type Department Care Team Description 10/21/2021 Ancillary Procedure Department of Dermatology Social History Tobacco Use Types Packs/Day Years Used Date Smoking Tobacco: Never Smokeless Tobacco: Never Sex Assigned at Date Recorded Not on file documented as of this encounter Plan of Treatment Upcoming Encounters Date Type Specialty Care Team Description 05/05/2022 Office Visit Dermatology Mark Bryant M.D. [address] [place], [place] [phone] (Wo rk) documented as of this encounter Procedures Procedure Name Priority Date/Time Associated Comments Diagnosis DERMATOLOGY IMAGE Routine 10/21/2021 3:28 PM Resu lts for this EXAM CDT procedure are i n the results section. documented in this encounter Results Right Flank-Dermatology Image Exam (10/21/2021 3:28 PM CDT) Specimen (Source) Anatomical Collection Method Collection Time Re ceived Time Location / / Volume Laterality 10/21/2021 3:26 PM CDT Narrative [facility] - 10/21/2021 3:28 PM CDT This order has been created and auto-finalized to support the import of images acquired without order. The clini ninoska documentation to support these images can be found on the encounter justin t produced images. Provider Not In System IMG NON RAD IMAGING PROCEDUR ES Performing Organization Address City/State/ZIP Code Phon e Number [facility] NA documented in this encounter Visit Diagnoses Not on filedocumented in this encounter
--- OUTSIDE RECORDS SUMMARY | 2022-03-17 11:35 | XMS_ITS | Encounter Summary ---
:1945 Author Organization [facility] Address [address] [place] [address]. [place] [address] Care Team Providers Name Role Phone None, Bfp Primary Care Provider Unavailable Encounter Details Date Type Department Care Team Description 04/30/2005 Historic Results INTERFACED REPORT Fern [place] [address] (Wo rk) Social History Tobacco Use Types Packs/Day Years Used Date Smoking Tobacco: Never Assessed Sex Assigned at Date Recorded Not on file documented as of this encounter Plan of Treatment Not on filedocumented as of this encounter Procedures Procedure Name Priority Date/Time Associated Diagnosis Comme nts HISTOPATHOLOGY Routine 04/30/2005 12:00 AM Result s for this CEMENT PATCHER procedure are i n the results section . documented in this encounter Results Histopathology (04/30/2005 12:00 AM CEMENT PATCHER) Component Value Ref Test Analysis Performed At [facility] Range Method Time Signature Copath Report CASE: [id number] ^ [facility] Name: RITA MALONE MR#: [id number] Specimen #: [id number] Collected: 04/30/2005 Received: 04/30/2005 Reported: 05/01/2005 14:35 Ordering Phy(s): FERN FERNANDEZ Additional Phy(s): ANTONELLA TOLENTINO SPECIMEN(S): Cecal polyp FINAL DIAGNOSIS: Cecal polyp, biopsy - Prominent lymphoid aggregate with foca l overlying hyperplastic epithelial change; no evidence of adenomatous c hange or malignancy. Electronically signed out by: Suzie Nixon M.D. CLINICAL HISTORY: Screen. GROSS: The specimen, labeled biopsy of cecal polyp, consists of a 3 mm cronin tissue fragment and an additional 1 mm white fragment. ??/ 1C ??PTP/sg MICROSCOPIC: Microscopic examination was performed. PTP/kd /05-01-05 TESTING LAB LOCATION: [facility] [address] [place], [place] ??[phone] COLLECTION SITE: Client: [facility] Location: ENDO (R) Specimen (Source) Anatomical Collection Method Collection Time Re ceived Time Location / / Volume Laterality 04/30/2005 05/01/2005 2:35 PM CEMENT PATCHER Fern Fernandez MD LAB - [facility] SPECIAL DIAG OR DERABLES Performing Organization Address City/State/ZIP Code Phon e Number [facility] documented in this encounter Visit Diagnoses Not on filedocumented in this encounter Care Teams Automotive Parts Clerk Relationship Specialty Start Date End Date None, Bfp PCP - General 06/06/99 01/21/17 documented as of this encounter
--- OUTSIDE RECORDS SUMMARY | 2022-03-17 11:35 | XMS_ITS | Clinical Summary ---
:1945 Author Organization [facility] Address [address] [place] [address]. [place] [address] Care Team Providers Name Role Phone Dayana Beto Primary Care Provider Allergies No known active allergies Medications Medication Sig Dispensed Refills Start Date End Date Status DIOVAN OR None Entered 0 Active PRILOSEC OR None Entered 0 Activ e CELEBREX OR None Entered 0 Activ e ANACIN OR None Entered 0 Active Encounters Date Type Specialty Care Team Description 01/05/2022 Hospital Encounter Radiology. 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); Renal cell carc inoma, right (H); Secondary malig nant neoplasm of lung (H); Adenocarcinoma, renal cell (H) 01/05/2022 Travel from Last 3 Months Social History Tobacco Use Types Packs/Day Years Used Date Smoking Tobacco: Never Assessed Sex Assigned at Date Recorded Not on file Last Filed Vital Signs Vital Sign Reading Time Taken Comments Blood Pressure - - Pulse - - Temperature - - Respiratory Rate - - Oxygen Saturation - - Inhaled Oxygen Concentration - - Weight 93 kg (205 lb) 04/17/2008 11:00 AM SPONGE HOOKER Height 177.8 cm (5' 10) 04/17/2008 11:00 AM SPONGE HOOKER Body Mass Index 29.41 04/17/2008 11:00 AM SPONGE HOOKER Plan of Treatment Health Maintenance Due Date Last Done Comments ADVANCE CARE PLANNING 1945 ANNUAL REVIEW OF ORDERS 1945 HEPATITIS B IMMUNIZATION 1945 (1 of 3 - 3-dose series) HEPATITIS C SCREENING 1962 LIPID 1979 FALL RISK ASSESSMENT 2009 MEDICARE ANNUAL WELLNESS 2009 VISIT COVID-19 Vaccine (2 - 03/18/2021 02/25/2021 Pfizer series) PHQ-2 (once per calendar 05/24/2021 year) INFLUENZA VACCINE (#1) 2022 03/24/2021, 03/22/2020, 03/24/2019, Additional history exists DTAP/TDAP/TD IMMUNIZATION 10/30/2025 10/31/2015 (2 - Td or Tdap) COLONOSCOPY Discontinued 09/18/2009, 04/30/2005 COLORECTAL CANCER Discontinued SCREENING Pneumococcal Vaccine: 65+ Completed 06/28/2013, 09/04/2009 Years ZOSTER IMMUNIZATION Completed 11/14/2018, 09/10/2018, 10/25/2014 CT COLONOGRAPHY Discontinued FIT-DNA (Cologuard) Discontinued FIT Discontinued FLEX SIG Discontinued IPV IMMUNIZATION Aged Out No longer eligi ble based on patient 's age to complete this topic MENINGITIS IMMUNIZATION Aged Out No longe r eligible based on patient 's age to complete this topic Procedures Procedure Name Priority Date/Time Associated Comments Diagnosis CT EDYTA 01/05/2022 10:19 AM Secondary malignant R esults for this CHEST/ABDOMEN/PELVIS CDT neoplasm of right pr ocedure are in W CONTRAST lung (H) the results Renal cell section. carcinoma, right (H) Secondary malignant neoplasm of lung (H) Adenocarcinoma, renal cell (H) PET ONCOLOGY (EYES EDYTA 01/05/2022 10:19 AM Secondary malig nant Results for this TO THIGHS) CDT neoplasm of right procedure are in lung (H) the results Renal cell section. carcinoma, right (H) Secondary malignant neoplasm of lung (H) Adenocarcinoma, renal cell (H) ISTAT CREATININE Routine 01/05/2022 9:03 AM Resul ts for this POCT CDT procedure are i n the results section. from Last 3 Months Results PET Oncology (Eyes to Thighs) (01/05/2022 10:19 AM CDT) Anatomical Region Laterality Modality Whole Body, SUBRAD CT BODY, P NUC MED Positron Emission Tomography (PET) Specimen (Source) Anatomical Collection Method Collection Time Re ceived Time Location / / Volume Laterality 01/05/2022 8:46 AM CDT Impressions 01/05/2022 11:06 AM CDT IMPRESSION: Findings suspicious for a right primary renal neoplasm with metastases involving a portacaval lymph node and nodules in the right lower and right upper lobes. Narrative 01/05/2022 11:06 AM CDT EXAM: PET ONCOLOGY (EYES TO THIGHS), CT CHEST/ABDOMEN/PELVIS W CONTRAST LOCATION: [facility] DATE/TIME: 01/05/2022 8:46 AM INDICATION: Initial treatment planning a nd staging for malignant neoplasm of right kidney, except renal pelvis COMPARISON: None available at time of di ctation CONTRAST: 126 mL Isovue-370 TECHNIQUE: Serum glucose level 144 mg/dL . One hour post intravenous administration of 13.5 mCi F-18 FDG, PET imaging was performed from the skull vertex to mid thigh, utilizing attenuation correction with concurrent axial CT and PET/CT image fusion. Separate diagnostic CT of the chest, abd omen, and pelvis was performed. Dose reduction techniques were used. PET/CT FINDINGS: FDG avid centrally necr otic lesion arising from the right kidney measuring 9.7 x 7.3 x 5.2 cm (max SUV 5.5) with FDG avid portacaval lymph node (max SUV 4.5), FDG avid nodule in the the right lower lobe measuring 1.0 x 0.9 cm (max SUV 4.0) and FDG avid nodule in the central right upper lobe measuring 1.1 x 1.2 cm (max SUV 7.1) suspicious for a right primary renal neoplasm with metastases involving a portacaval lymph node and nodules in the right lower and right upper lobes. The remaining FDG uptake is physiologic from the skull vertex to mid thigh. CT FINDINGS: Mild senescent intracranial changes. Postoperative change of the bilateral lenses. Non-FDG avid 1 cm nodule in the right thyroid lobe suggesting benignity. Moderate coronary artery calcium. Small sliding-type hiatal hernia. Sigmoid diverticulosis. Pelvic phleboliths. Mode rate prostamegaly. Small fat-containing inguinal hernias. Multilevel degenerative changes of spine including grade 1 anterolisthesis of L4 over L5 Procedure Note Aguilar Raines MD - 01/05/2022For matting of this note might be different from the original. EXAM: PET ONCOLOGY (EYES TO THIGHS), CT CHEST/ABDOMEN/PELVIS W CONTRAST LOCATION: [facility] DATE/TIME: 01/05/2022 8:46 AM INDICATION: Initial treatment planning a nd staging for malignant neoplasm of right kidney, except renal pelvis COMPARISON: None available at time of di ctation CONTRAST: 126 mL Isovue-370 TECHNIQUE: Serum glucose level 144 mg/dL . One hour post intravenous administration of 13.5 mCi F-18 FDG, PET imaging was performed from the skull vertex to mid thigh, utilizing attenuation correction with concurrent axial CT and PET/CT image fusion. Separate diagnostic CT of the chest, abd omen, and pelvis was performed. Dose reduction techniques were used. PET/CT FINDINGS: FDG avid centrally necr otic lesion arising from the right kidney measuring 9.7 x 7.3 x 5.2 cm (max SUV 5.5) with FDG avid portacaval lymph node (max SUV 4.5), FDG avid nodule in the the right lower lobe measuring 1.0 x 0.9 cm (max SUV 4.0) and FDG avid nodule in the central right upper lobe measuring 1.1 x 1.2 cm (max SUV 7.1) suspicious for a right primary renal neoplasm with metastases involving a portacaval lymph node and nodules in the right lower and right upper lobes. The remaining FDG uptake is physiologic from the skull vertex to mid thigh. CT FINDINGS: Mild senescent intracranial changes. Postoperative change of the bilateral lenses. Non-FDG avid 1 cm nodule in the right thyroid lobe suggesting benignity. Moderate coronary artery calcium. Small sliding-type hiatal hernia. Sigmoid diverticulosis. Pelvic phleboliths. Mode rate prostamegaly. Small fat-containing inguinal hernias. Multilevel degenerative changes of spine including grade 1 anterolisthesis of L4 over L5 IMPRESSION: Findings suspicious for a right primary renal neoplasm with metastases involving a portacaval lymph node and nodules in the right lower and right upper lobes. Gio Lopez MD IMG PET ORDERABLES CT Chest/Abdomen/Pelvis w Contrast (01/05/2022 10:19 AM CDT) Anatomical Region Laterality Modality Abdomen/Pelvis, Chest, SUBRAD CT BODY, P ositron Emission Tomography (PET) UMP CT CHEST, UMP CT ABDOMEN PELVIS, RAD CT Specimen (Source) Anatomical Collection Method Collection Time Re ceived Time Location / / Volume Laterality 01/05/2022 8:46 AM CDT Impressions 01/05/2022 11:06 AM CDT IMPRESSION: Findings suspicious for a right primary renal neoplasm with metastases involving a portacaval lymph node and nodules in the right lower and right upper lobes. Narrative 01/05/2022 11:06 AM CDT EXAM: PET ONCOLOGY (EYES TO THIGHS), CT CHEST/ABDOMEN/PELVIS W CONTRAST LOCATION: [facility] DATE/TIME: 01/05/2022 8:46 AM INDICATION: Initial treatment planning a nd staging for malignant neoplasm of right kidney, except renal pelvis COMPARISON: None available at time of di ctation CONTRAST: 126 mL Isovue-370 TECHNIQUE: Serum glucose level 144 mg/dL . One hour post intravenous administration of 13.5 mCi F-18 FDG, PET imaging was performed from the skull vertex to mid thigh, utilizing attenuation correction with concurrent axial CT and PET/CT image fusion. Separate diagnostic CT of the chest, abd omen, and pelvis was performed. Dose reduction techniques were used. PET/CT FINDINGS: FDG avid centrally necr otic lesion arising from the right kidney measuring 9.7 x 7.3 x 5.2 cm (max SUV 5.5) with FDG avid portacaval lymph node (max SUV 4.5), FDG avid nodule in the the right lower lobe measuring 1.0 x 0.9 cm (max SUV 4.0) and FDG avid nodule in the central right upper lobe measuring 1.1 x 1.2 cm (max SUV 7.1) suspicious for a right primary renal neoplasm with metastases involving a portacaval lymph node and nodules in the right lower and right upper lobes. The remaining FDG uptake is physiologic from the skull vertex to mid thigh. CT FINDINGS: Mild senescent intracranial changes. Postoperative change of the bilateral lenses. Non-FDG avid 1 cm nodule in the right thyroid lobe suggesting benignity. Moderate coronary artery calcium. Small sliding-type hiatal hernia. Sigmoid diverticulosis. Pelvic phleboliths. Mode rate prostamegaly. Small fat-containing inguinal hernias. Multilevel degenerative changes of spine including grade 1 anterolisthesis of L4 over L5 Procedure Note Aguilar Raines MD - 01/05/2022For matting of this note might be different from the original. EXAM: PET ONCOLOGY (EYES TO THIGHS), CT CHEST/ABDOMEN/PELVIS W CONTRAST LOCATION: [facility] DATE/TIME: 01/05/2022 8:46 AM INDICATION: Initial treatment planning a nd staging for malignant neoplasm of right kidney, except renal pelvis COMPARISON: None available at time of di ctation CONTRAST: 126 mL Isovue-370 TECHNIQUE: Serum glucose level 144 mg/dL . One hour post intravenous administration of 13.5 mCi F-18 FDG, PET imaging was performed from the skull vertex to mid thigh, utilizing attenuation correction with concurrent axial CT and PET/CT image fusion. Separate diagnostic CT of the chest, abd omen, and pelvis was performed. Dose reduction techniques were used. PET/CT FINDINGS: FDG avid centrally necr otic lesion arising from the right kidney measuring 9.7 x 7.3 x 5.2 cm (max SUV 5.5) with FDG avid portacaval lymph node (max SUV 4.5), FDG avid nodule in the the right lower lobe measuring 1.0 x 0.9 cm (max SUV 4.0) and FDG avid nodule in the central right upper lobe measuring 1.1 x 1.2 cm (max SUV 7.1) suspicious for a right primary renal neoplasm with metastases involving a portacaval lymph node and nodules in the right lower and right upper lobes. The remaining FDG uptake is physiologic from the skull vertex to mid thigh. CT FINDINGS: Mild senescent intracranial changes. Postoperative change of the bilateral lenses. Non-FDG avid 1 cm nodule in the right thyroid lobe suggesting benignity. Moderate coronary artery calcium. Small sliding-type hiatal hernia. Sigmoid diverticulosis. Pelvic phleboliths. Mode rate prostamegaly. Small fat-containing inguinal hernias. Multilevel degenerative changes of spine including grade 1 anterolisthesis of L4 over L5 IMPRESSION: Findings suspicious for a right primary renal neoplasm with metastases involving a portacaval lymph node and nodules in the right lower and right upper lobes. Gio Lopez MD IMG CT ORDERABLES Creatinine POCT (01/05/2022 9:03 AM CDT) P athologist Signature Creatinine POCT 1.2 0.7 - 1.3 01/05/2022 [facility] mg/dL 9:06 AM CDT POC GFR, ESTIMATED >60 >60 01/05/2022 [facility] POCT mL/min/1.7 9:06 AM CDT POC 3m2 Specimen Anatomical Collection Method Collection Time Receive d Time (Source) Location / / Volume Laterality Blood, venous BLOOD SPECIMEN / 01/05/2022 9:03 AM 12/22 9:06 Unknown CDT AM CDT Gio Lopez MD LAB - BEAKER POCT Performing Organization Address City/State/ZIP Code Phon e Number [facility] [place] [address] Lab [address] [facility] [address] Building, Room 3580 from Last 3 Months Insurance Payer Benefit Plan / Subscriber ID Effective Phone Address T ype Group Dates MEDICARE MEDICARE [id number] 2021-Prese [phone] ATTN CLAI MS Medicare nt [address] [place] [address] BCBS BCBS OF [place] [id number] 2018-Prese [phone] [address] [place] [id number] Indemnity nt [address] [place] [address] Care Teams Helpdesk Manager Relationship Specialty Start Date End Date Beto Anne PCP - General Family Medicine 01/05/22 [facility] [address] [place] [address]
--- OUTSIDE RECORDS SUMMARY | 2022-03-17 11:35 | XMS_ITS | Encounter Summary ---
:1945 Author Organization [facility] Address [address] [place] [address] Care Team Providers Name Role Phone Unavailable Primary Care Provider Unavailable Encounter Details Date Type Department Care Team Description 02/03/2022 Ancillary Procedure Department of Dermatology Social History Tobacco Use Types Packs/Day Years Used Date Smoking Tobacco: Never Smokeless Tobacco: Never Sex Assigned at Date Recorded Not on file documented as of this encounter Plan of Treatment Upcoming Encounters Date Type Specialty Care Team Description 05/05/2022 Office Visit Dermatology Mark Bryant M.D. [address] [place], [place] [phone] (Wo rk) documented as of this encounter Procedures Procedure Name Priority Date/Time Associated Comments Diagnosis DERMATOLOGY IMAGE Routine 02/03/2022 8:25 AM Resu lts for this EXAM CDT procedure are i n the results section. documented in this encounter Results Generalized 500-Dermatology Image Exam (02/03/2022 8:25 AM CDT) Specimen (Source) Anatomical Collection Method Collection Time Re ceived Time Location / / Volume Laterality 02/03/2022 8:23 AM CDT Narrative [facility] - 02/03/2022 8:25 AM CDT This order has been created and [...]
--- OUTSIDE RECORDS SUMMARY | 2022-03-17 11:35 | XMS_ITS | Encounter Summary ---
:1945 Author Organization [facility] Address [address] [place] [address]. [place] [address] Care Team Providers Name Role Phone Beto Anne Primary Care Provider Encounter Details Date Type Department Care Team Description 01/05/2022 Travel Social History Tobacco Use Types Packs/Day Years Used Date Smoking Tobacco: Never Assessed Sex Assigned at Date Recorded Not on file COVID-19 Exposure Response Date Recorded In the last 10 days, have you been in contact with No / Unsu re 01/05/2022 8:28 AM CDT someone who was confirmed or suspected to have Coronavirus/COVID-19? documented as of this encounter Plan of Treatment Not on filedocumented as of this encounter Visit Diagnoses Not on filedocumented in this encounter Care Teams Net C Developer Relationship Specialty Start Date End Date Beto Anne PCP - General Family Medicine 01/05/22 [facility] [address] [place] [address] documented as of this encounter
--- OUTSIDE RECORDS SUMMARY | 2022-03-17 11:35 | XMS_ITS | Encounter Summary ---
:1945 Author Organization [facility] Address [address] [place] [address] Care Team Providers Name Role Phone Unavailable Primary Care Provider Unavailable Reason for Referral Outpatient (Routine) - Closed Specialty Diagnoses / Procedures Referred By Contact Refer red To Contact Dermatology Diagnoses Nevi Multiple Mark Bryant M.D. [facility] Procedures Dermatology misc minor procedure [address] [place] [phone] Referral ID Status Reason Start Date Expiration Date Visits Requ ested Visits Authorized [id number] Closed 02/02/2022 02/02/2023 1 1 Reason for Visit Reason Comments Nevus recheck Outpatient (Routine) - Closed Specialty Diagnoses / Procedures Referred By Contact Refer red To Contact Dermatology Mark Bryant M.D . [facility] Region [address] [place], [place] [phone] Referral ID Status Reason Start Date Expiration Date Visits Requ ested Visits Authorized [id number] Closed 10/21/2021 10/21/2022 1 1 Encounter Details Date Type Department Care Team Description 02/02/2022 Office Visit Department of Mark Bryant Nevi Multi ple (Primary Dx); D[place]atology [place] [facility] [place] [address] [phone] Social History Tobacco Use Types Packs/Day Years Used Date Smoking Tobacco: Never Smokeless Tobacco: Never Tobacco Cessation: Counseling Given: Not Answered Sex Assigned at Date Recorded Not on file documented as of this encounter Progress Notes Mark Bryant M.D. - 02/02/2022 8:15 AM CDT SUBJECTIVE CHIEF COMPLAINT / REASON FOR VISIT Recheck nevi x 3 HISTORY OF PRESENT ILLNESS Rita Wesley is a pleasant 76 y.o. male who presents for recheck of nevi x 3 involving the right upper ear helix, right lower lateral back and right lower flank. The patient was last seen by [facility] on 10/21/21. He has a history of a severely atypical mole involving the right scapula, status post re-excision on 01/20/[address] Hein at [facility]. He denies a personal history of skin cancer or family history for melanoma. He uses sunscreen intermittently. He denies any new or changing lesions today. He was recently diagnosed with renal cell carcinoma and is taking a combination of daily Lenvima and Keytruda infusion every three weeks. MEDICAL HISTORY 1. Negative for skin cancer 2. Right scapula: History of severely atypical nevus, status post re-excision on 01/20/[address] Hein at [facility] 3. Type II diabetes mellitus 4. Renal cell carcinoma being treated with Keytruda and Lenvima FAMILY HISTORY Negative for melanoma OBJECTIVE PHYSICAL EXAMINATION General: Awake, alert, in no acute distress, and with appropriate affect. Skin: Limited skin exam done today. Examination of the right upper ear helix reveals a 2.5 x 2.5 mm uniformly pigmented brown macule, compatible with a flat seborrheic keratosis vs nevus. Examination of the right lower lateral back reveals a 3 x 2.5 mm uniformly pigmented darker brown nevus, rule out atypical nevus. Examination of the right lower flank reveals a 4 x 2.5 mm brown nevus with slight asymmetry and irregular pigmentation, rule out atypical nevus. ASSESSMENT / PLAN #1 Right lower lateral back and right lower flank: Rule out atypical nevi x 2 I discussed with the patient that given some characteristics of these lesions I would prefer to remove them. I recommend 6-mm punch biopsies x 2 of the right lower lateral back and right lower flank. Idiscussed with the patient that he will have several stitches at each site and should avoid strenuous exercise for 1-2 weeks following the biopsies. He understands and is in agreement with this plan. Follow up on 02/03/22 for removal of the stated lesion(s). #2 Right upper ear helix: Probable seborrheic keratosis vs nevus I discussed with the patient that given some characteristics of this lesion I would prefer to removeit. I recommend a 4-mm or 5-mm punch biopsy of the right upper ear helix. I discussed with the patient that he will have several stitches at that site. He understands and is in agreement with this plan. Follow up on 02/03/22 for removal of the stated lesion(s). PATIENT EDUCATION: Ready to learn. No apparent learning barriers were identified. Learning preferences include listening. Explained diagnosis and treatment plan; patient/guardian of patient expressed understanding of thecontent. By signing my name below, I, Tamie Lynch, attest that this documentation has been prepared under the direction and in the presence of Mark Bryant M.D. Electronically Signed: betsy Montes. 01/27/2022. 10:18 AM CDT. I, Mark Bryant M.D., personally performed the services described in this documentation. All medical record entries made by the scribe were at my direction and in my presence. I have reviewed the chart and discharge instructions (if applicable) and agree that the record reflects my personal performance and is accurate and complete. Mark Bryant M.D. documented in this encounter Plan of Treatment Upcoming Encounters Date Type Specialty Care Team Description 05/05/2022 Office Visit Dermatology Mark Brynat M.D. [address] [place], [place] [phone] (Wo rk) Scheduled Orders Name Type Priority Associated Diagnoses Order S chedule Dermatology misc minor Dermatology Routine Nevi Multiple Expe cted: procedure 02/03/2022, Exp ires: 05/04/2023 documented as of this encounter Visit Diagnoses Diagnosis Nevi Multiple - Primary Keratosis Seborrheic documented in this encounter
--- OUTSIDE RECORDS SUMMARY | 2022-03-17 11:35 | XMS_ITS | Encounter Summary ---
:1945 Author Organization [facility] Address [address] [place] [address] Care Team Providers Name Role Phone Unavailable Primary Care Provider Unavailable Reason for Referral Outpatient (Routine) - Closed Specialty Diagnoses / Procedures Referred By Contact Refer red To Contact Dermatology Mark Bryant M.D . [facility] Region [address] [place] [phone] Referral ID Status Reason Start Date Expiration Date Visits Requ ested Visits Authorized [id number] Closed 10/21/2021 10/21/2022 1 1 Scheduling Instructions Recheck nevi in 3 months Reason for Visit Appointment Request (Routine) - Closed Specialty Diagnoses / Procedures Referred By Contact Refer red To Contact Dermatology Referral ID Status Reason Start Date Expiration Date Visits Requ ested Visits Authorized [id number] Closed 07/21/2021 07/21/2022 1 1 Encounter Details Date Type Department Care Team Description 10/21/2021 Office Visit Department of Mark Bryant, Tumor Skin Uncertain Behavior (Primary Dx); Dermatology in [facility]; [place], [place] [address] [facility] Nevi Multiple; [address] [place] [address] [place] [phone] Social History Tobacco Use Types Packs/Day Years Used Date Smoking Tobacco: Never Smokeless Tobacco: Never Sex Assigned at Date Recorded Not on file documented as of this encounter Progress Notes Mark Bryant M.D. - 10/21/2021 3:00 PM CDT SUBJECTIVE CHIEF COMPLAINT / REASON FOR VISIT Full skin cancer screening HISTORY OF PRESENT ILLNESS Rita Wesley is a pleasant 76 y.o. male who presents for a full skin cancer screening. The patient was last seen by me in Dermatology clinic on 05/12/21. He has a history of a severely atypicalmole involving the right scapula, status post re-excision on 01/20/[address] Hein at [facility]. He denies a personal history of skin cancer or family history for melanoma. He uses sunscreen intermittently. He denies any new or changing lesions today. ?? MEDICAL HISTORY 1.??Negative for skin cancer 2. Right scapula: History of severely atypical nevus, status post re-excision on 01/20/[address] Hein at [facility] 3. Type II diabetes mellitus FAMILY HISTORY Negative for melanoma OBJECTIVE PHYSICAL EXAMINATION General: Awake, alert, in no acute distress, and with appropriate affect. Eyes: No scleral injection or icterus. No eyelid abnormalities. Lymph: No lower extremity edema. Skin: I have examined the scalp, face, neck, chest, abdomen, back, bilateral upper extremities, and bilateral lower extremities. Examination of the right scapula reveals no evidence for recurrence of severely atypical nevus. Examination today reveals actinic keratoses, including 1 right ear helix, 1 right ear antihelix and 1 left ear antihelix. Examination of the face, trunk, and extremities reveals multiple benign- appearing nevi, lentigines and seborrheic keratoses. Examination of the right upper ear helix reveals a 2.5 x 2.5 mm uniformly pigmented brown macule, compatible with a flat seborrheic keratosis vs benign appearing nevus. Examination of the right upper forehead reveals a dermal nevus. Examination above the left eyebrow reveals a dermal nevus. Examination of the upper cheeks reveals multiple black comedones. Examination of the right medial trapezius reveals a dark pigmented seborrheic keratosis. Examination of the right upper paraspinal back reveals a 4 x 3.5 mm brown nevus with slight irregular pigmentation and slightly irregular border, rule out atypical nevus. Examination of the right lower lateral back reveals a 3 x 2.5 mm uniformly pigmented darker brown nevus that looks benign on clinical exam and dermoscopy. Examination of the right lower flank reveals a 4 x 2.5 mm brown nevus with slight asymmetry and adjacent other nevus. ASSESSMENT / PLAN #1 Right ear helix, right ear antihelix and left ear antihelix: Actinic keratosis x 3 Given the precancerous nature of this lesion(s), treatment is medically indicated. After discussion of the risks, benefits and alternatives to treatment with cryotherapy, informed consent was obtained.We treated a total of three lesion(s) with two 26-82-waccpb freeze-thaw cycles of liquid nitrogen cry otherapy. The patient tolerated the procedure well. Aftercare instructions were provided in written and verbal form to the patient. Should any of these lesions recur, the patient should return for biopsy or further evaluation. Follow up in 1-2 months for recheck if these areas do not complete resolve. #2 Right upper paraspinal back: Rule out atypical nevus We recommend a 6-mm punch biopsy of the right upper paraspinal back. Photograph taken today with patient's verbal consent. We will correspond as to the results and if any further treatment is needed. PROCEDURAL PAUSE: Procedural pause conducted to verify: correct patient identity, procedure to be performed, and as applicable, correct side and site, correct patient position, and availability of implants, special equipment, or special requirements. PROCEDURE DETAILS: Punch biopsy We explained the potential diagnosis and recommended that we obtain a biopsy. The risks and benefitsof the procedure were discussed, and the patient consented to these procedures. The patient denies any allergies to local anesthetics. Using 1% lidocaine with epinephrine for local anesthesia, a 6-mm punch biopsy was obtained from the right upper paraspinal back. Biopsy submitted to Dermatopathology. Biopsy site closed with a top layer of three 4-0 nylon skin sutures. The skin sutures need to be removed in 10-14 days. Dressing was applied, and wound care instructions were explained. Biopsy results and any further recommendations will be communicated to the patient by letter. Patient given pamphlet [id number]. Discussed the risks, benefits, alternatives, and the necessity of other members of the healthcare team participating in the procedure. All questions answered and consent given. #3 Face, trunk and extremities: Multiple nevi and lentigines The ABCDE criteria for melanoma was reviewed with the patient. None of the patient's other nevi reach the clinical threshold for biopsy. I recommend continued sun protection, self-skin examinations, and observation. Should any of the patient's nevi change in size, color, texture, or shape or develop symptoms such as itching or bleeding, I recommend an immediate return visit for reassessment. Particularly, we will continue to clinically monitor the lesion(s) involving the right upper ear helix, rightlower lateral back and right lower flank. Photographs taken today. Follow up in 3 months for a recheck of the stated lesion(s). #4 Face, trunk and extremities: Seborrheic keratosis The benign nature of the skin lesion(s) was discussed with the patient. No treatment is required. I recommend continued observation. Should this lesion change in size, color, texture, or shape or develop symptoms such as itching or bleeding, I recommend an immediate return visit for reassessment. #5 Right scapula: History of severely atypical nevus, status post re-excision on 01/20/[address] Hein at [facility], no recurrence No clinical evidence of local recurrence today. Recommended monthly self-skin examinations to evaluate for new, changing, symptomatic, or otherwise worrisome lesions. Signs and symptoms of skin cancer discussed. Photoprotection was recommended. Return to Dermatology in 6-12 months for a full skin examor immediately if any new or changing lesions are noted. PATIENT EDUCATION: Ready to learn. No apparent learning barriers were identified. Learning preferences include listening. Explained diagnosis and treatment plan; patient/guardian of patient expressed understanding of thecontent. By signing my name below, I, Tamie Lynch, attest that this documentation has been prepared under the direction and in the presence of Mark Bryant M.D. Electronically Signed: betsy Montes. 10/21/2021. 3:02 PM CDT. Mark Uriostegui M.D., personally performed the services described in this documentation. All medical record entries made by the scribe were at my direction and in my presence. I have reviewed the chart and discharge instructions (if applicable) and agree that the record reflects my personal performance and is accurate and complete. Mark Bryant M.D. documented in this encounter Miscellaneous Notes Result Encounter Note - Mark Bryant M.D. - 10/31/2021 10:27 AM CDT Right upper paraspinal back: Benign lesion letter Michael Lopez patient. Please send letter documented in this encounter Plan of Treatment Upcoming Encounters Date Type Specialty Care Team Description 05/05/2022 Office Visit Dermatology Mark Bryant M.D. [address] [place] [phone] (Wo rk) Scheduled Referrals Name Type Priority Associated Order Schedule Diagnoses Dermatology office Outpatient Referral Routine Ex pected: visit (clinic) 01/21/2022 (Approximate), Expires: 01/21/2023 documented as of this encounter Procedures Procedure Name Priority Date/Time Associated Comments Diagnosis DERMATOPATHOLOGY CONSULT Routine 10/21/2021 3:29 Tumor Skin Results for this PM CDT Uncertain Behavior procedure are in the results section. documented in this encounter Results Dermatopathology Consult (10/21/2021 3:29 PM CDT) Component Value Ref Test Analysis Performed Pathologis t Range Method Time At Signature 10/31/2021 PDRM 10:07 AM CDT Participated in Tre Eastman 10/31/2021 PDR the , 10:07 AM Interpretation D.O.-Pathology CDT Fellow Report Jaylin Sharma, 10/31/2021 PDRM electronically MKatie 10:07 AM signed by CDT Gross Received in formalin labeled with the patient's name, 10/31/2021 PDR Description: medical record number, and right upper paraspinal lynda k is 10:07 AM a 0.7 x 0.6 cm pale cronin-collado ovoid skin punch biopsy, CDT excised to depth of 0.4 cm. ??There is a 0.4 x 0.4 cm brown pigmented lesion with irregular borders eccentrically located on the skin surface. ??The specimen is bisected and submitted entirely in cassette A1. ??Grossed by AJG. Interpetation FINAL DIAGNOSIS 10/31/2021 PDRM A. ??DermPath Consult Wet Tissue; Right upper paraspinal 10:07 AM back, Skin punch biopsy: ??Lentiginous junctional nevus CDT COMMENT Melan A stain highlights the melanocytic proliferation. Multiple tissue levels examined. Specimen Anatomical Collection Method Collection Time Receive d Time (Source) Location / / Volume Laterality Tissue 10/21/2021 3:29 PM 2 1:58 CDT PM CDT Narrative This result has an attachment that is no t available. Mark Bryant M.D. LAB PATH DERM ORDERABLES Performing Organization Address City/State/ZIP Code Phon e Number [facility] - [address] [place], [place] [address] [facility] [place] [address] Laboratories-[facility] [address] documented in this encounter Visit Diagnoses Diagnosis Tumor Skin Uncertain Behavior - Primary Keratosis Actinic Nevi Multiple Keratosis Seborrheic documented in this encounter
--- OUTSIDE RECORDS SUMMARY | 2022-03-17 11:35 | XMS_ITS | Encounter Summary ---
:1945 Author Organization [facility] Address [address] [place] [address] Care Team Providers Name Role Phone Unavailable Primary Care Provider Unavailable Encounter Details Date Type Department Care Team Description 02/17/2021 Ancillary Procedure Department of Dermatology Social History Tobacco Use Types Packs/Day Years Used Date Smoking Tobacco: Never Smokeless Tobacco: Never Sex Assigned at Date Recorded Not on file documented as of this encounter Plan of Treatment Upcoming Encounters Date Type Specialty Care Team Description 05/05/2022 Office Visit Dermatology Mark Bryant M.D. [address] [place], [place] [phone] (Wo rk) documented as of this encounter Procedures Procedure Name Priority Date/Time Associated Comments Diagnosis DERMATOLOGY IMAGE Routine 02/17/2021 11:27 Result s for this EXAM AM CDT procedure are i n the results section. documented in this encounter Results Back 527-Dermatology Image Exam (02/17/2021 11:27 AM CDT) Specimen (Source) Anatomical Collection Method Collection Time Re ceived Time Location / / Volume Laterality 02/17/2021 11:21 AM CDT Narrative [facility] - 02/17/2021 11:27 AM CDT This order has been created [...]
--- OUTSIDE RECORDS SUMMARY | 2022-03-17 11:35 | XMS_ITS | Encounter Summary ---
:1945 Author Organization [facility] Address [address] [place] [address] Care Team Providers Name Role Phone Unavailable [...] Visit Dermatology Mark Bryant M.D. [address] [place], [place] [phone] (Wo rk) documented as of this encounter Procedures Procedure Name Priority Date/Time Associated Comments Diagnosis DERMATOLOGY IMAGE Routine 10/21/2021 3:28 PM Resu lts for this EXAM CDT procedure are i n the results section. documented in this encounter Results Back right [id number] [phone]-Dermatology Image Exam (10/21/2021 3:28 PM CDT) Specimen (Source) Anatomical Collection Method Collection Time Re ceived Time Location / / Volume Laterality 10/21/2021 3:25 PM CDT Narrative [facility] - 10/21/2021 3:28 [...]
--- OUTSIDE RECORDS SUMMARY | 2022-03-17 11:35 | XMS_ITS | Clinical Summary ---
:1945 Author Organization [facility] Address [address] [place] [address] Care Team Providers Name Role Phone Unavailable Primary Care Provider Unavailable Source Comments Patient records contain information from all sites at [facility]. For routine questions regarding patient records, call [phone] during business hours, M-F 8:00 AM - 5:00 PM Central Time. Record requests for emergency care only can be directed to [phone] at any time.[facility] Allergies Active Allergy Reactions Severity Noted Date Comments Metformin GI intolerance High 12/26/2021 Sulfa (Sulfonamide Antibiotics) Hives 8 Medications Medication Sig Dispensed Refills Start Date End Date Status metFORMIN XR 0 11/02/2017 Active (GLUCOPHAGE-XR) 500 mg 24 hr tablet lisinopril Take 20 mg by 0 09/28/2017 Acti ve (PRINIVIL,ZESTRIL) 20 mg mouth daily. tablet celecoxib (CeleBREX) 200 0 11/01/2017 Active mg capsule amLODIPine (NORVASC) 2.5 0 11/01/2017 Active mg tablet omeprazole (PriLOSEC) 20 Take 20 mg by 0 11/01/2017 Active mg capsule mouth every morning before breakfast. tamsulosin (FLOMAX) 0.4 Take 0.4 mg by 0 11/01/2017 Active mg 24 hr capsule mouth daily. ONETOUCH ULTRA BLUE TEST 3 11/23/2017 Active STRIP strips ONETOUCH ULTRA CONTROL 3 11/23/2017 Active solution ONETOUCH ULTRASOFT 3 11/23/2017 Active lancets Cartia XT 240 mg 24 hr Take 240 mg by 0 02/06/2020 Active capsule mouth daily. metoprolol tartrate Take 25 mg by 0 01/25/2020 Active (LOPRESSOR) 25 mg tablet mouth 2 (two) times a day as needed. Currently taking takes half a tablet, twice a day. glipiZIDE (GLUCOTROL) 5 5 mg 2 (two) 0 02/16/2021 Active mg tablet times a day. Currently taking 1 tablet, once a day. glipiZIDE (GLUCOTROL XL) Take 2.5 mg by 0 04/30/2021 Active 2.5 mg 24 hr tablet mouth daily. cyanocobalamin (VITAMIN Take 1,000 mcg 0 Active B12) 1,000 mcg tablet by mouth daily. ketorolac (ACULAR) 0.5 % INSTILL 1 DROP 4 0 09/11/19 Active ophthalmic solution TIMES DAILY INTO OPERATIVE EYE STARTING 3 DAYS PRIOR TO SURGERY. CONTINUE FOR 2 WEEKS AFTER SURGERY. moxifloxacin (VIGAMOX) INSTILL 1 DROP 4 0 09/10/2021 Active 0.5 % ophthalmic TIMES DAILY INTO solution OPERATIVE EYE STARTING 3 DAYS PRIOR TO SURGERY. CONTINUE FOR 1 WEEK AFTER SURGERY. prednisoLONE acetate INSTILL 1 DROP 4 0 09/10/2021 Active (PRED FORTE) 1 % TIMES DAILY INTO ophthalmic suspension OPERATIVE EYE STARTING AFTER YOUR SURGERY. TAPER BY 1 DROP PER WEEK. SKAKE WELL lisinopril-hydroCHLOROth Take by mouth 0 02/28/2021 Active iazide daily. (PRINZIDE,ZESTORETIC) 20-12.5 mg per tablet prochlorperazine Take 5-10 mg by 0 01/21/2022 Active (COMPAZINE) 5 mg tablet mouth every 6 (six) hours as needed. acetaminophen 325 mg 500 mg. 0 12/01/2021 Active capsule Hospital, Clinic, or Other Ordered Dose Route Frequency Start Date End Date Status Facility Administered Medication lidocaine-EPINEPHrine 2 - 50 mL Ifil As needed 01/20/2018 Active 1%-1:200,000 injection 2-50 mL (XYLOCAINE W/EPI) Active Problems No known active problems Encounters Date Type Specialty Care Team Description 02/03/2022 Ancillary Procedure 02/03/2022 Ancillary Procedure 02/03/2022 Ancillary Procedure 02/03/2022 Procedure visit Dermatology Mark Bryant, Erica rg M.D. Tumor Skin Unce rtain Behavior 02/02/2022 Office Visit Dermatology Kalaaji, Erica Hui (Primary Dx); Viri Keratosis Sebor rheic from Last 3 Months Social History Tobacco Use Types Packs/Day Years Used Date Smoking Tobacco: Never Smokeless Tobacco: Never Tobacco Cessation: Counseling Given: Not Answered Sex Assigned at Date Recorded Not on file Last Filed Vital Signs Vital Sign Reading Time Taken Comments Blood Pressure 140/78 01/20/2018 4:00 PM CDT Pulse - - Temperature - - Respiratory Rate 12 01/20/2018 4:00 PM CDT Oxygen Saturation - - Inhaled Oxygen Concentration - - Weight - - Height - - Body Mass Index - - Plan of Treatment Upcoming Encounters Date Type Specialty Care Team Description 05/05/2022 Office Visit Dermatology Mark Bryant M.D. [address] [place] [address] [phone] (Wo rk) Health Maintenance Due Date Last Done Comments Hepatitis C Screening 1945 Potassium Level 1945 Sodium Level 1945 DTaP,Tdap,and Td Vaccines (1 - 11/01/2015 10/31/2015 Tdap) COVID-19 Vaccine (2 - Pfizer 03/18/2021 02/25/2021 series) Depression Screening (Annual 05/24/2021 PHQ-2) Fall Risk Screen (Annual) 05/24/2021 Creatinine Level 01/05/2023 01/05/2022 Pneumococcal vaccine (65+ years) Completed 06/28/2013, Zoster Vaccines Completed 11/14/2018, 09/10/2018, 10/25/2014 Influenza Vaccine Completed 03/10/2022, 03/24/2021, 03/22/2020, Additional history exists Procedures Procedure Name Priority Date/Time Associated Comments Diagnosis DERMATOLOGY IMAGE EXAM Routine 02/03/2022 8:25 AM Results for this CDT procedure are i n the results section. DERMATOLOGY IMAGE EXAM Routine 02/03/2022 8:25 AM Results for this CDT procedure are i n the results section. DERMATOLOGY IMAGE EXAM Routine 02/03/2022 8:25 AM Results for this CDT procedure are i n the results section. DERMATOPATHOLOGY Routine 02/03/2022 8:13 AM Resul ts for this CDT procedure are i n the results section. from Last 3 Months Results Back, left 49 [phone]-Dermatology Image Exam (02/03/2022 8:25 AM CDT)Only the most recent of3 resultswithin the time period is included. Specimen (Source) Anatomical Collection Method Collection Time [...] Organization Address City/State/ZIP Code Phon e Number [facility] NA Dermatopathology (02/03/2022 8:13 AM CDT) Component Value Ref Test Analysis Performed Pathologis t Range Method Time At Signature 02/06/2022 ECLR 10:38 AM CDT Report Ranjan Lal M.D. 02/06/2022 ECLR Electronically 10:38 AM Signed By CDT I verify that I have examined all relevant slides/materials for the specimen(s) and rendered or confirmed the diagnosis. Gross Description A: ??Received in a container labeled lower right flank is 02/06/2022 ECLR a 0.6 x 0.3 cm in greatest dimension cylindrically shaped 10:38 AM portion of tissue. ??The specimen is bisected. ??All CDT submitted in cassette A1. B: Received in a container labeled lower right lateral back is a 0.7 x 0.3 cm in greatest dimension cylindrically shaped portion of tissue. ??The specimen is bisected. ??All submitted in cassette B1. [id number] Specimen Source A. Right lower flank punch biopsy 02/06/2022 ECLR B. Right lateral lower back punch biopsy 10:38 AM CDT Clinical A-B, R/O 02/06/2022 ECLR Information atypical nevus 10:38 AM CDT Interpretation FINAL DIAGNOSIS 02/06/2022 ECLR A. Skin, right lower flank, punch biopsy: ??Compound 10:38 AM dysplastic nevus with mild atypia. ??The biopsy margins CDT appear negative in the planes of section examined. B. Skin, right lateral lower back, punch biopsy: ??Compound dysplastic nevus with mild atypia. ??The biopsy margins appear negative in the planes of section examined. Comment (A,B): ??Immunohistochemistry for Melan-A highlights the lesions. Specimen Anatomical Collection Method Collection Time Receive d Time (Source) Location / / Volume Laterality Varies 02/03/2022 8:13 AM 2:19 CDT PM CDT Narrative This result has an attachment that is no t available. Mark Bryant M.D. LAB PATH DERM ORDERABLES Performing Organization Address City/State/[facility] Code Phon e Number [facility]- [address] [place] [address] [phone] [facility] [place] [address] System in [address] from Last 3 Months Insurance Payer Benefit Plan Subscriber ID Effective Phone Address Typ e / Group Dates MEDICARE MEDICARE A [id number] 2009-Prese [address] [place] [address] [employer] [facility] [id number] 2018-Prese [phone] [address] Indemnity [employer] [place] [id number] [place] [address]
--- OUTSIDE RECORDS SUMMARY | 2022-03-17 11:35 | XMS_ITS | Encounter Summary ---
:1945 Author Organization [facility] Address [address] [place] [address]. [place] [address] Care Team Providers Name Role Phone None, Bfp Primary Care Provider Unavailable Encounter Details Date Type Department Care Team Description 04/30/2005 GI Procedure [facility] Han Mfofett MD None Endoscopy [place] XX RETIRED XXX [address] [facility] [place] [address] [place] [address] [phone] Social History Tobacco Use Types Packs/Day Years Used Date Smoking Tobacco: Never Assessed Sex Assigned at Date Recorded Not on file documented as of this encounter Plan of Treatment Not on filedocumented as of this encounter Procedures Procedure Name Priority Date/Time Associated Diagnosis Comme nts COLONOSCOPY Routine 04/30/2005 8:25 AM Results f or this SLIP COVER SEAMSTRESS procedure are i n the results section . documented in this encounter Results COLONOSCOPY (04/30/2005 8:25 AM SLIP COVER SEAMSTRESS) [facility] Method Time Signature COLONOSCOPY Endoscopy RADIOLOGY RESULTS Patient Name: Rita Wesley ? Gender: M ? Procedure Date: 04/30/2005 8: 25 AM ? Date of : 1945 ?Age: 59 ? Admit Type: Outpatient ? Attending MD: Han Moffett ? Procedure: ?Colonoscopy Indications: ?Avg risk screening for malignant neoplasm in the colon Providers: ?Han Moffett MD Referring MD: ?? Hugo Steven MD Medicines: ?Fentanyl 100 mcg IV, Midazola m 2 mg IV, Atropine 0.6 mg IV Complications: ??No immediate complications Procedure: ?- A History and Physical has been perfo rmed, and patient ?medi cation allergies have been reviewed. The patient The ?risk s and benefits of the procedure and the sedation options ?and risks were discussed with the patient. All questions were ?answered and informed consent was obtained. Patient ?iden tification and proposed procedure were verified prior to ?the procedure by the physician in the procedure room. Mental ?Stat us Examination: normal. Respiratory Examination: clear to ?ausc ultation. CV Examination: normal. ASA Grade Assessment: ?P1 A normal healthy patient. After reviewing the risks and ?bene fits, the patient was deemed in satisfactory condition to ?undergo the procedure. T he anesthesia plan was to use ?moderate sedation / analgesia (con scious sedation). ?Imme diately prior to administration of medications, the ?gavin ent was re-assessed for adequacy to receive sedatives. ?The heart rate, respiratory rate, oxygen saturations, blood ?pres sure, adequacy of pulmonary ventilation, and response to ?care were monitored throughout the procedure. The physical ?stat us of the patient was re-assessed after the procedure. ?Afte r obtaining informed consent, the colonoscope was passed ?unde r direct vision. Throughout the procedure, the patient's ?bloo d pressure, pulse, and oxygen saturations were monitored ?cont inuously. The [facility]80IL #[id number] was introduced through ?the anus and advanced to the ileum. The colonoscopy was ?acco mplished without difficulty. The patient tolerated the ?procedure well. The quality of the prep was excellent. ? Findings: ? The digital rectal exam was normal. A sessile polyp was found in the ? cecum. The polyp was 2 mm in size . This was biopsied with a hot forceps ? for histology. Multiple small-mouthed diverticula wer e found in the ? sigmoid colon. The re ctum, descending colon, splenic flexure, transverse ? colon, hepatic flexure and ileoce ninoska valve were normal. The retroflexed ? view of the anal verge was normal and showed no anal or rectal ? abnormalities. ? Impression: ? - One 2 mm polyp in the cecum. Tissue was removed. ?- Diverticulosis. ?- Th e rectum, descending colon, splenic flexure, transverse ?colon, hepatic f lexure and ileocecal valve are normal. Recommendation: - Discharge patient to home (ambulatory). ?- Patient should telephone endoscopi st in 1 week. ?- If polyp is adenomatous repeat colonoscopy in 3 years. If ?polyp is hyperplastic then hemoccu lts q yr and flex ?sigmoidoscopy in 3 yrs. ?- Return to primary care provider ID N. ? CPT Code(s): ?71964, Colonoscopy, flexible, proxim al to splenic flexure; ?with removal of tumor(s), polyp(s), or other lesion(s) by hot ?biopsy forceps or bipolar cautery ICD Code(s): ?211.3, Benign Neoplasm of Colon The codes documented in this report are prelimin naila and upon package worker review may be revised to meet current compliance requirements. Genny Moffett M.D Han Moffett MD Signed Date: 04/30/2005 9:13 AM Number of Addenda: 0 I was physically present for the entire viewing portion of t he exam. Note generated on 04/30/2005 8:26 AM COLONOSCOPY RADIOLOGY RESULTS Specimen (Source) Anatomical Collection Method Collection Time Re ceived Time Location / / Volume Laterality 04/30/2005 8:25 AM SLIP COVER SEAMSTRESS Han Moffett MD PROCEDURES Performing Organization Address City/State/ZIP Code Phon e Number RADIOLOGY RESULTS documented in this encounter Visit Diagnoses Not on filedocumented in this encounter Care Teams Crane Chaser Relationship Specialty Start Date End Date None, Bfp PCP - General 06/06/99 01/21/17 documented as of this encounter
--- OUTSIDE RECORDS SUMMARY | 2022-03-17 11:35 | XMS_ITS | Encounter Summary ---
:1945 Author Organization [place] Address [address] [place] [address]. 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 Diagnoses Secondary malignant neoplasm of right lung (H) Renal cell carcinoma, right (H) Secondary malignant neoplasm of lung (H) Adenocarcinoma, renal cell (H) Gio Lopez MD Pet Procedures PET Oncology (Eyes to Thighs) PET Oncology (Eyes to Thighs) PET Oncology (Eyes to Thighs) [facility] [address] Iliana Fink [phone] [address] [place] [address] Referral ID Status Reason Start Date Expiration Date Visits Requ ested Visits Authorized [id number] Closed 01/01/2022 01/01/2023 1 1 Reason for Visit Diagnostic Imaging PET (Priority: 1-2 Weeks) - Closed Specialty Diagnoses / Procedures Referred By Contact Refer red To Contact Radiology. Diagnoses Secondary malignant neoplasm of right lung (H) Renal cell carcinoma, right (H) Secondary malignant neoplasm of lung (H) Adenocarcinoma, renal cell (H) Gio Lopez MD Pet Procedures PET Oncology (Eyes to Thighs) PET Oncology (Eyes to Thighs) PET Oncology (Eyes to Thighs) [facility] [address] [place] [place] Fink [phone] [address] [place] [address] Referral ID Status Reason Start Date Expiration Date Visits Requ ested Visits Authorized [id number] Closed 01/01/2022 01/01/2023 1 1 Encounter Details Date Type Department Care Team Description 01/05/2022 Hospital Encounter [facility] Gio Lopez ndnaila malignant neoplasm of right lung (H); [facility] MD Lamine Renal cell carcinoma, right (H); [address] [place] [facility] Secondary malignant neoplasm of lung (H) ; CAROL Fink [address] Adenocarcinom a, renal cell (H) [phone] [address] [place] [address] Social History Tobacco Use Types Packs/Day Years Used Date Smoking Tobacco: Never Assessed Sex Assigned at Date Recorded Not on file COVID-19 Exposure Response Date Recorded In the last 10 days, have you been in contact with No / Unsu re 01/05/2022 8:28 AM CDT someone who was confirmed or suspected to have Coronavirus/COVID-19? documented as of this encounter Medications at Time of Discharge Medication Sig Dispensed Refills Start Date End Date ANACIN OR None Entered 0 CELEBREX OR None Entered 0 DIOVAN OR None Entered 0 PRILOSEC OR None Entered 0 documented as of this encounter Plan of Treatment Not on filedocumented as of this encounter Procedures Procedure Name Priority Date/Time Associated Comments Diagnosis PET ONCOLOGY (EYES EDYTA 01/05/2022 10:19 AM Secondary malig nant Results for this TO THIGHS) CDT neoplasm of right procedure are in lung (H) the results Renal cell section. carcinoma, right (H) Secondary malignant neoplasm of lung (H) Adenocarcinoma, renal cell (H) CT EDYTA 01/05/2022 10:19 AM Secondary malignant [...] results section. documented in this encounter Results CT Chest/Abdomen/Pelvis w Contrast (01/05/2022 10:19 AM [...] TO THIGHS), CT CHEST/ABDOMEN/PELVIS W CONTRAST LOCATION: [facility] DATE/TIME: 01/05/2022 8:46 AM INDICATION: Initial treatment [...] anterolisthesis of L4 over L5 Procedure Note Aguialr Raines MD - 01/05/2022For matting of this note might be different from the original. EXAM: PET ONCOLOGY (EYES TO THIGHS), CT CHEST/ABDOMEN/PELVIS W CONTRAST LOCATION: [facility] DATE/TIME: 01/05/2022 8:46 AM INDICATION: Initial treatment [...] lobes. Gio Lopez MD IMG CT ORDERABLES PET Oncology (Eyes to Thighs) (01/05/2022 10:19 [...] TO THIGHS), CT CHEST/ABDOMEN/PELVIS W CONTRAST LOCATION: [facility] DATE/TIME: 01/05/2022 8:46 AM INDICATION: Initial treatment [...] TO THIGHS), CT CHEST/ABDOMEN/PELVIS W CONTRAST LOCATION: [facility] DATE/TIME: 01/05/2022 8:46 AM INDICATION: Initial treatment [...] lobes. Gio Lopez MD IMG PET ORDERABLES Creatinine POCT (01/05/2022 9:03 AM CDT) [...] LABORATORY POC [facility] [place] [address] Lab [address] [facility], Room 3580 documented in this encounter Visit Diagnoses Diagnosis Secondary malignant neoplasm of right anne ng (H) Secondary malignant neoplasm of lung Renal cell carcinoma, right (H) Secondary malignant neoplasm of lung (H) Secondary malignant neoplasm of lung Adenocarcinoma, renal cell (H) Malignant neoplasm of kidney, except pel vis documented in this encounter Administered Medications Inactive Administered Medications - up to 3 most recent administrations Medication Order MAR Action Action Date Dose Rate Site fluorodeoxyglucose F-18 (FDG) Given 01/05/2022 9:02 AM 13.46 mCi radioisotope injection 9.6-15 mCi CDT 9.6-15 mCi, Intravenous, ONCE, On Wed01/05/22 at 0900, For 1 dose, Supplied by, and administered by Nuclear Medicine. *HW* iopamidol (ISOVUE-370) solution 10-135 m L Given 01/05/2022 9:05 AM CDT 126 mLs 10-135 mL, Intravenous, ONCE, On Wed01/05/22 at 0900, For 1 dose sodium chloride (PF) 0.9% PF flush 60 mL Given 01/05/2022 9:05 AM CDT 60 mLs 60 mL, Intravenous, ONCE, On Wed01/05/22 at 0900, For 1 dose documented in this encounter Care Teams Powder Monkey Relationship Specialty Start Date End Date Beto Anne PCP - General Family Medicine 01/05/22 [facility] [address], [place] [address] documented as of this encounter
--- OUTSIDE RECORDS SUMMARY | 2022-03-17 11:35 | XMS_ITS | Encounter Summary ---
:1945 Author Organization [facility] Address [address] [place] [id number] Care Team Providers Name Role Phone Unavailable Primary Care Provider Unavailable Reason for Visit Reason Comments Follow-up Outpatient (Routine) - Closed Specialty Diagnoses / Procedures Referred By Contact Refer red To Contact Dermatology Mark Bryant M.D . [facility] Region [address] [place] [address] [phone] Referral ID Status Reason Start Date Expiration Date Visits Requ ested Visits Authorized [id number] Closed 02/17/2021 02/17/2022 1 1 Encounter Details Date Type Department Care Team Description 05/12/2021 Office Visit Department of Mark Bryant, Tumor Skin Uncertain Behavior (Primary Dx); Dermatology in [place], [place] [address] [place] [phone] Social History Tobacco Use Types Packs/Day Years Used Date Smoking Tobacco: Never Smokeless Tobacco: Never Sex Assigned at Date Recorded Not on file documented as of this encounter Progress Notes Mark Bryant M.D. - 05/12/2021 11:00 AM CST SUBJECTIVE CHIEF COMPLAINT / REASON FOR VISIT Recheck nevi x 2 HISTORY OF PRESENT ILLNESS Rita Wesley is a pleasant 75 y.o. male who presents for a recheck of nevi x 2 involving theright upper paraspinal back (superior, A) and right upper paraspinal back (inferior, B). The patientwas last seen by me in Dermatology clinic on 02/17/21. He has a history of a severely atypical mole involving the right scapula, status post re-excision on 01/20/[address] Hein at [facility]. He denies a personal history of skin cancer or family history for melanoma. He uses sunscreen. He denies any new or changing lesions today. MEDICAL HISTORY 1. Negative for skin cancer 2. Right scapula: History of severely atypical nevus, status post re-excision on 01/20/[address] Hein at [facility] FAMILY HISTORY Negative for melanoma OBJECTIVE PHYSICAL EXAMINATION General: Awake, alert, in no acute distress, and with appropriate affect. Skin: Limited skin exam done today. Examination of the right upper paraspinal back (superior, A) reveals a 1.5 x 1.5 mm pigmented dark-brown nevus with slight asymmetry, which looks benign on clinical exam and dermoscopy but does have some new asymmetry. Examination of the right upper paraspinal back (inferior, B) reveals a 5 x 5 mm brown nevus with slightly jagged borders, which looks benign on clinical exam and dermoscopy. ASSESSMENT / PLAN #1 Right upper paraspinal back (superior, A): Rule out atypical nevus We recommend a 4-mm punch biopsy of the right upper paraspinal back (superior, A). Photograph taken 02/17/21 with patient's verbal consent. We will correspond as to the results and if any further treatment is needed. The importance of monitoring the area for any infection was emphasized and if that should occur he should follow up immediately with a primary care physician. He will be traveling down [facility] tomorrow and will be there for 4 months. 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 PROCEDURAL PAUSE: Procedural pause conducted to verify: [...] lidocaine with epinephrine for local anesthesia, a 4-mm punch biopsy was obtained from the right upper paraspinal back (superior, A). Biopsy submitted to Dermatopathology. Biopsy site closed with a top layer of two 4-0 nylon skin sutures. The skin sutures need to be removed in 10-14 days. Dressing was applied, and wound care instructions were explained. Biopsy results and any further recommendations will be communicated to the patient by letter. Patient given pamphlet [id number]. Discussed the risks, benefits, alternatives, and the necessity of other members of the healthcare team participating in the procedure. All questions answered and consent given. #2 Right upper paraspinal back (inferior, B): Benign nevus The ABCDE criteria for melanoma was reviewed with the patient. This nevus does not reach the clinical threshold for biopsy. I recommend continued sun protection, self-skin examinations, and observation. Should any of the patient's nevi change in size, color, texture, or shape or develop symptoms such as itching or bleeding, I recommend an immediate return visit for reassessment. Follow up in 3-4 months for a recheck of the stated lesion(s) after returning from [place]. He will call and schedule an appointment in 1 month. PATIENT EDUCATION: Ready to learn. No apparent learning barriers were identified. Learning preferences include listening. Explained diagnosis and treatment plan; patient/guardian of patient expressed understanding of thecontent. By signing my name below, I, Tamie Lynch, attest that this documentation has been prepared under the direction and in the presence of Mark Bryant M.D. Electronically Signed: betsy Montes. 05/06/2021. 12:30 PM SIMONIZER. Mark Uriostegui M.D., personally performed the services described in this documentation. All medical record entries made by the scribe were at my direction and in my presence. I have reviewed the chart and discharge instructions (if applicable) and agree that the record reflects my personal performance and is accurate and complete. Mark Bryant M.D. NIZER documented in this encounter Miscellaneous Notes Result Encounter Note - Mark Bryant M.D. - 05/20/2021 1:57 PM CST A. Right upper superior paraspinal back,A : Benign lesion letter. Michael Lopez patient. Please send letter NIZER Result Encounter Note - Mark Bryant M.D. - 05/20/2021 1:56 PM CST Right upper superior paraspinal back, A : Benign lesion letter. Michael Lopez patient. Please send letter NIZER documented in this encounter Plan of Treatment Upcoming Encounters Date Type Specialty Care Team Description 05/05/2022 Office Visit Dermatology Mark Bryant M.D. [address] [place] [phone] (Wo rk) documented as of this encounter Procedures Procedure Name Priority Date/Time Associated Comments Diagnosis DERMATOPATHOLOGY CONSULT Routine 05/12/2021 11:05 Tumor Skin Results for this AM SIMONIZER Uncertain Behavior procedure are in the results section. documented in this encounter Results Dermatopathology Consult (05/12/2021 11:05 AM SIMONIZER) Component Value Ref Test Analysis Performed Pathologis t Range Method Time At Signature 05/20/2021 PDRM 12:27 PM SIMONIZER Report Grecia Rothman, 05/20/2021 PDRM electronically MKatie 12:27 PM signed by DENNISE Gross Received in formalin labeled with the patient's name, 05/20/2021 PDRM Description: medical record number, and right upper paraspinal lynda k, A 12:27 PM is a 0.4 cm in diameter pale cronin skin punch biopsy excised SIMONIZER to a depth of 0.4 cm. ??Eccentrically located on the skin surface is a 0.2 x 0.2 cm brown, hyperpigmented lesion with well-circumscribed borders. ??The specimen is bisected and submitted entirely in cassette A1. ??Grossed by Interpetation FINAL DIAGNOSIS 05/20/2021 PDRM A. ??DermPath Consult Wet Tissue; Right upper superior 12:27 PM paraspinal back, A, Skin punch biopsy: ??Lentiginous SIMONIZER junctional nevus with superficial dermal melanophages and inflammation COMMENT Photos obtained 02/17/2021 and clinical note of 05/12/2021 were reviewed. ??Multiple tissue levels were examined. Melan A stain highlights the melanocytic proliferation. Specimen Anatomical Collection Method Collection Time Receive d Time (Source) Location / / Volume Laterality Tissue 05/12/2021 11:05 05/13/2021 AM SIMONIZER 11:58 AM SIMONIZER Narrative This result has an attachment that is no t available. Mark Bryant M.D. LAB PATH DERM ORDERABLES Performing Organization Address City/State/ZIP Code Phon e Number [facility] - [address] [place], [place] [address] [facility] [place] [address] Laboratories-[facility] [address] documented in this encounter Visit Diagnoses Diagnosis Tumor Skin Uncertain Behavior - Primary Nevi Multiple documented in this encounter
--- OUTSIDE RECORDS SUMMARY | 2022-03-17 11:35 | XMS_ITS | Encounter Summary ---
:1945 Author Organization [facility] Address [address] [place] [id number] Care Team Providers Name Role Phone Unavailable Primary Care Provider Unavailable Reason for Referral Outpatient (Routine) - Authorized Specialty Diagnoses / Procedures Referred By Contact Refer red To Contact Dermatology Mark Bryant M.D . [facility] Region [address] [place], [place] [phone] Referral ID Status Reason Start Date Expiration Date Visits V isits Requested Authorized [id number] Authorized 02/03/2022 02/02/2025 1 1 Scheduling Instructions Recheck right ear lesion in 3 months Reason for Visit Reason Comments Biopsy Outpatient (Routine) - Closed Specialty Diagnoses / Procedures Referred By Contact Refer red To Contact Dermatology Diagnoses Nevi Multiple Mark Bryant M.D. [facility] Procedures Dermatology misc minor procedure [address] [place] [phone] Referral ID Status Reason Start Date Expiration Date Visits Requ ested Visits Authorized [id number] Closed 02/02/2022 02/02/2023 1 1 Encounter Details Date Type Department Care Team Description 02/03/2022 Procedure visit Department of Mark Bryant ple; Dermatology in Michael Saleh M.D. Tumor Skin Uncertain Behavior [place], [place] [address] [phone] Social History Tobacco Use Types Packs/Day Years Used Date Smoking Tobacco: Never Smokeless Tobacco: Never Sex Assigned at Date Recorded Not on file documented as of this encounter Progress Notes Mark Bryant M.D. - 02/03/2022 8:00 AM CDT SUBJECTIVE CHIEF COMPLAINT / REASON FOR VISIT Biopsies x 2 HISTORY OF PRESENT ILLNESS Rita Wesley is a pleasant 76 y.o. male who presents for biopsies x 2 of lesions involving the right lower lateral back and right lower flank. We were also planning to potentially biopsy lesioninvolving the right ear helix today as well. The patient was last seen by me in Dermatology clinic on 02/02/22. He has a history of a severely atypical mole involving the right scapula, status post re-excision on 01/20/[address] Hein at [facility]. He denies a personal history of skin cancer or family history for melanoma. He uses sunscreen intermittently. He denies any new or changing lesions today. He was recently diagnosed with Renal cell cancer and is taking a combination of daily Lenvima and Keytruda infusion every three weeks. MEDICAL HISTORY 1. Negative for skin cancer 2. Right scapula: History of severely atypical nevus, status post re-excision on 01/20/[address] Hein at [facility] 3. Type II diabetes mellitus FAMILY HISTORY Negative for melanoma OBJECTIVE PHYSICAL EXAMINATION General: Awake, alert, in no acute distress, and with appropriate affect. Skin: Limited skin exam done today. Examination of the right upper ear helix reveals a 3 x 2.5 mm uniformly pigmented brown macule with darker verrucous center, compatible with a pigmented seborrheic keratosis vs benign appearing nevus. Examination of the right lower lateral back reveals a 3 x 2.5 mm uniformly pigmented darker brown nevus, rule out atypical nevus. Examination of the right lower flank reveals a 4 x 2.5 mm brown nevus with slight asymmetry and irregular pigmentation, rule out atypical nevus. There is an adjacent incidental benign appearing nevus ASSESSMENT / PLAN #1 Right lower lateral back and right lower flank: Rule out atypical nevi x 2 We recommend 6-mm punch biopsies x 2 of the right lower lateral back and right lower flank. Photograph taken today with patient's verbal consent. We will correspond as to the results and if any furthertreatment is needed. PROCEDURAL PAUSE: Procedural pause conducted to verify: correct patient identity, procedures to be performed, and as applicable, correct sides and sites, correct patient position, and availability of implants, special equipment, or special requirements. PROCEDURE DETAILS: Punch biopsies x 2 We explained the potential diagnosis and recommended that we obtain biopsies x 2. The risks and benefits of the procedure were discussed, and the patient consented to these procedures. The patient denies any allergies to local anesthetics. Using 1% lidocaine with epinephrine for local anesthesia, 6-mmpunch biopsies were obtained from the right lower lateral back and right lower flank. Biopsies x 2 submitted to Dermatopathology. Biopsy sites x 2 closed with a top layer of three 4-0 nylon skin sutures each. The skin sutures both need to be removed in 10-14 days. Dressings were applied, and wound care instructions were explained. Biopsy results x 2 and any further recommendations will be communicated to the patient by letter. Patient given pamphlet [id number]. Discussed the risks, benefits, alternatives, and the necessity of other members of the healthcare team participating in the procedure. All questions answered and consent given. #2 Right upper ear helix: Probable seborrheic keratosis vs benign nevus I had initially planned on her biopsying this lesion today. However, up on further exam, I feel thatthe lesion is most compatible with a pigmented seborrheic keratosis giving it the darker center and does not represent an atypical nevus. Given my very low index of suspicion for atypia and the fact justin t the lesion is on his ear aware scar any deformity would be quite noticeable, I feel it would be best to closely observe this lesion for any changes. He does live locally and coming back is no issue for him and he is in agreement with this approach. No treatment is required. I recommend continued observation. Should this lesion change in size, color, texture, or shape or develop symptoms such as itching or bleeding, I recommend an immediate return visit for reassessment. Photographs taken today with patient consent. Follow up in 3 months for a recheck of the stated lesion(s). PATIENT EDUCATION: Ready to learn. No apparent learning barriers were identified. Learning preferences include listening. Explained diagnosis and treatment plan; patient/guardian of patient expressed understanding of thecontent. By signing my name below, I, Tamie Lynch, attest that this documentation has been prepared under the direction and in the presence of Mark Bryant M.D. Electronically Signed: betsy Montes. 02/02/2022. 9:15 AM CDT. I, Mark Bryant M.D., personally [...] Encounter Note - Mark Bryant M.D. - 02/10/2022 12:04 PM CDT A. Right lower flank: Atypical nevus already treated letter B. Right lateral lower back: Atypical nevus already treated letter [place] patient. Please send letter documented in this encounter Plan of Treatment Upcoming Encounters Date Type Specialty Care Team Description 05/05/2022 Office Visit Dermatology Mark Bryant M.D. [address] [place], [place] [phone] (Wo rk) Scheduled Referrals Name Type Priority Associated Order Schedule Diagnoses Dermatology office Outpatient Referral Routine Ex pected: visit (clinic) 05/05/2022 (Approximate), Expires: 05/05/2023 documented as of this encounter Procedures Procedure Name Priority Date/Time Associated Diagnosis Comme nts DERMATOPATHOLOGY Routine 02/03/2022 8:13 AM Resul ts for this CDT procedure are i n the results section. documented in this encounter Results Dermatopathology (02/03/2022 8:13 AM CDT) Component Value [...] Organization Address City/State/ZIP Code Phon e Number [facility]- [address] [place] [phone] [facility] [place] [address] System [address] documented in this encounter Visit Diagnoses Diagnosis Nevi Multiple Tumor Skin Uncertain Behavior documented in this encounter
--- OUTSIDE RECORDS SUMMARY | 2022-03-17 11:35 | XMS_ITS | Encounter Summary ---
:1945 Author Organization [facility] Address [address] [place] [address]. 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 Patient concerns: is concerned about what to eat, when to test. LAB RESULTS: Glucose monitoring results: am glucose- 125-138, one 160. A1C 6.3@ 02/16/08 HDL 41@ 12/08/07 LDL 86@ 12/08/07 GLC 119@ 02/16/08 VITALS: Ht 5' 10 (1.778 m) Wt 205 lb (92.987 kg) History Tobacco Use Not on file Has a One Touch Ultra meter. Taught himself how to use it. 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 EXERCISE: minimal exercise: always doing something; a lot of garage work. NUTRITION: Patient currently eats 3 meals 1 snack per day. Is eating regularly, but breakfast is his biggest meal, often over 7 carbs. Lunch and dinner more moderate. Drinks regular soda, but cutting down. VISIT TYPES: Individual Encounters: Initial (individual) SOCIO/ECONOMIC HISTORY: Race/Ethnicity: White/ Learning Assessment: No Barriers identified Lives with: spouse Recent family changes/social stressors: none noted Family Medical History: No changes since last visit Language(s) spoken at home: Albanian There are no active problems to display for this patient. Medications reviewed & updated today. ROS: Patient experiencing the following diabetes related symptoms: none ASSESSMENT: Has been watching his glucoses for 10 years. No longer borderline, diagnosed with diabetes 1 month ago. Had some DM education 10 years ago. Weight has been stable. Active throughout theday, but no planned activity/exercise. DIABETES: Control good A1C 6.3@ 02/16/08 HTN: Control unable to assess Last BP: Data Unavailable HYPERCHOLESTEROLEMIA: Control good LDL 86@ 12/08/07 PLAN: Exercise / activity encouraged every day!!! Home glucose monitoring encouraged... 3 times daily for 7 days/ Patient to keep food and glucose record for next visit or mail in. Consider attending classes. 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
--- OUTSIDE RECORDS SUMMARY | 2022-03-17 11:35 | XMS_ITS | Encounter Summary ---
:1945 Author Organization [facility] Address [address] [place] [address] Care Team Providers Name Role Phone Unavailable [...] Visit Dermatology Mark Bryant M.D. [address] [place], [place] [phone] (Wo rk) documented as of this encounter Procedures Procedure Name Priority Date/Time Associated Comments Diagnosis DERMATOLOGY IMAGE Routine 02/03/2022 8:25 AM Resu lts for this EXAM CDT procedure are i n the results section. documented in this encounter Results Back, left 49 [phone]-Dermatology Image Exam (02/03/2022 8:25 AM CDT) Specimen [...]
--- OUTSIDE RECORDS SUMMARY | 2022-03-17 11:35 | XMS_ITS | Clinical Summary ---
:1945 Author Organization [employer] [facility] [place] [address] Care Team Providers Name Role Phone Beto Anne MD Primary Care Provider Allergies Active Allergy Reactions Severity Noted Date Comments Metformin GI Upset 01/06/2022 Sulfa (Sulfonamide Antibiotics) Hives 2 Medications Medication Sig Dispensed Refills Start Date End Date Status dilTIAZem CD (CARDIZEM Take 1 capsule 90 capsule 0 02/28/2020 Active CD) 240 mg extended by mouth once release 24 hr daily. Further capsuleIndications: refills at [facility] Heart palpitations appt metoprolol tartrate Take 1 tablet by 0 05/03/2020 Active (LOPRESSOR) 25 mg mouth 2 times tablet daily. OneTouch Ultra Test USE TO TEST 0 02/04/2021 Active strip every day glipiZIDE Take 2.5 mg by 0 04/30/2021 Acti ve extended-release mouth once daily (GLUCOTROL XL) 2.5 mg before a meal. Extended-Release tablet tamsulosin (FLOMAX) 0.4 Take 0.4 mg by 0 11/10/2021 Active mg capsule mouth once daily after a meal. omeprazole (PRILOSEC) Take 20 mg by 0 Active 20 mg Delayed-Release mouth once daily capsule before a meal. pembrolizumab Every three 0 01/29/2022 Act ramírez (Keytruda) 25 mg/mL weeks injection lenvatinib (Lenvima) 4 Take by mouth 30 Capsule 0 01/29/2022 Active mg dose pack once daily. Pt unsure on dosage Active Problems Not on file Encounters Date Type Specialty Care Team Description 01/30/2022 Office Visit Efrain Magana MD Follow Up 01/19/2022 Hospital Encounter Michael Arguelles O ther specified disorders of kidney and u reter 01/19/2022 Travel 01/07/2022 Hospital Encounter Michael Arguelles R enal mass; Lung nodule 01/07/2022 Travel from Last 3 Months Social History Tobacco Use Types Packs/Day Years Used Date Never Smoker Smokeless Tobacco: Never Used Tobacco Cessation: Counseling Given: No Alcohol Use Standard Drinks/Week Comments Yes 1 (1 standard drink = 0.6 oz pure alcoho l) Sex Assigned at Date Recorded Not on file Obstetrics History Last Filed Vital Signs Vital Sign Reading Time Taken Comments Blood Pressure 118/62 01/30/2022 10:53 AM CDT Pulse 80 01/30/2022 10:53 AM CDT Temperature 36.4 ??C (97.6 ??F) 01/19/2022 10:53 AM CDT Respiratory Rate 14 01/30/2022 10:53 AM CDT Oxygen Saturation 96% 01/19/2022 2:20 PM CDT Inhaled Oxygen Concentration - - Weight 79.8 kg (176 lb) 01/30/2022 10:53 AM CDT Height 175.3 cm (5' 9) 01/19/2022 10:53 AM CDT Body Mass Index 25.99 01/19/2022 10:53 AM CDT Plan of Treatment Health Maintenance Due Date Last Done Comments Tdap 1955 Depression screening for age 12+ 1956 BMI (ht and wt on same day) for age 18+ 1962 Hepatitis C screening for age 18-79 1962 Zoster (shingles) series for age 50+ (1 of 2) 1963 Tetanus booster 1964 Medicare Wellness for age 65+ 2009 Pneumococcal series for age 65+ (1 - PCV) 2009 COVID-19 vaccine series (2 - Pfizer risk series) 03/18/2021 02/25/2021 Influenza for age 65+ 01/22/2022 Procedures Procedure Name Priority Date/Time Associated Diagnosis Comme nts XR CHEST 1 VIEW PA Routine 01/19/2022 2:36 PM Res ults for this OR AP CDT procedure are i n the results section. CT BIOPSY LUNG Routine 01/19/2022 12:45 PM Other specified Res ults for this RIGHT CDT disorders of kidney procedur e are in and ureter the results section. PATH FNA CYTOLOGY Today 01/19/2022 12:10 PM Res ults for this ASP CYTOLOGY CDT procedure are i n the results section. XR CHEST 1 VIEW PA STAT 01/07/2022 3:13 PM Res ults for this OR AP CDT procedure are i n the results section. XR CHEST 1 VIEW PA STAT 01/07/2022 12:55 PM Re sults for this OR AP CDT procedure are i n the results section. CT BIOPSY LUNG Routine 01/07/2022 12:49 PM Renal mass Results for this RIGHT CDT Lung nodule procedure are i n the results section. PATH FNA CYTOLOGY Today 01/07/2022 12:20 PM Res ults for this ASP CYTOLOGY CDT procedure are i n the results section. PROTIME-INR STAT 01/07/2022 10:36 AM Results for this CDT procedure are i n the results section. from Last 3 Months Results XR CHEST 1 VIEW PA OR AP (01/19/2022 2:36 PM CDT)Only the most recent of3 resultswithin the time period is included. Anatomical Region Laterality Modality CHEST, THORAX, Lung, HEART Digital Radio graphy Specimen (Source) Anatomical Collection Method Collection Time Re ceived Time Location / / Volume Laterality 01/19/2022 3:20 PM CDT Impressions 01/19/2022 3:20 PM CDT No significant pneumothorax status post lung biopsy. Dictated by Timbo Gordon MD @ Jan 19 2022 ??3:20PM (Electronically Signed) ?? Narrative 01/19/2022 3:20 PM CDT For Patients: ??As a result of the 21st Century Cures Act, medical imaging exams and procedure report s are released immediately into your [facility] medical record. ??You may view this report before your referring provider. ??If you have questions, please contact your health care provider. INDICATION: Lung biopsy COMPARISON: 01/07/2022. TECHNIQUE: Single chest radiograph. FINDINGS: Stable cardiomediastinal contours. Simil ar left lower lobe bandlike pulmonary opacities. ??No pleural effusion. No significant pneumothorax. Procedure Note Timbo Gordon MD - 2 For Patients: As a result of the ntury Cures Act, medical imaging exams and procedure reports are released immediately into your electronic medical record. You may view this report before your referring provider. If you have questions, please contact [facility] health care provider. INDICATION: Lung biopsy COMPARISON: 01/07/2022. TECHNIQUE: Single chest radiograph. FINDINGS: Stable cardiomediastinal contours. Simil ar left lower lobe bandlike pulmonary opacities. No pleural effusion. No significant pneumothorax. IMPRESSION: No significant pneumothorax status post lung biopsy. Dictated by Timbo Gordon MD @ Jan 19 2022 3:20PM (Electronically Signed) Adal Ramachandran MD GENERAL IMAGING CT BIOPSY LUNG RIGHT (01/19/2022 12:45 PM CDT)Only the most recent of2 results within the time period is included. Anatomical Region Laterality Modality Lung Computed Tomography, Other, Other, Other Specimen (Source) Anatomical Location Collection Method / Collectio n Time Received Time / Laterality Volume Narrative 01/19/2022 1:22 PM CDT PROCEDURE PERFORMED: TARGETED BIOPSY NODULE RIGHT LOWER 1 CM ??LOBE. ?? FINDINGS (DESCRIPTION OF EACH PROCEDURE) : ?? Sterile technique was utilized, with CT guidance. Lesion was targeted. Small skin rob was made Biopsy performed with 20G, TEMNO needle. Post procedure CT images obtained. Post procedure CXR images ORDERED. ?? POST-PROCEDURE DIAGNOSIS: ??Status post TARGETED BIOPSY ABOVE LUNG LESION. ?? MEDICATIONS GIVEN: MODERATE SEDATION:?Under physician supervision, midazolam and fentanyl were administered intravenously for mode rate sedation. Pulse oximetry, heart rate, and blood pressure were cont inuously monitored by a??trained, dedicated nurse. The physician who perfo rmed the procedure provided??45 minutes [facility] Versed (Midazolam)1 mg IV. ?? Fentanyl ? 25 m cg IV. Lidocaine for local anesthesia. ?? SPECIMEN(S): CORES ?? COMPLICATIONS: no complications noted ?? DRAINS: ??None ? ESTIMATED BLOOD LOSS: ??Less than 10 cc. ?? PHYSICIAN(S) AND ASSISTANTS (if any): ?? Adal Ramachandran MD ?? Additional Comments: ? Please call with questions. Adal Ramachandran MD ?? [facility] Protocol ?? A. Pre-procedure verification complete y es 1-relevant information / documentation a vailable, reviewed and properly matched to the patient; 2-consent accura te and complete, 3-equipment and supplies available ?? B. Site marking complete Yes Site marked if not in continuous attenda nce with patient ?? C. TIME OUT completed yes Time Out was conducted just prior to sta rting procedure to verify the eight required elements: 1-patient ident ity, 2-consent accurate and complete, 3-position, 4-correct side/sit e marked (if applicable), 5-procedure, 6-relevant images / results properly labeled and displayed (if applicable), 7-antibiotics / irrigat ion fluids (if applicable), 8-safety precautions. Michael Arguelles MD CT FNA Cytology BEATER OPERATOR (01/19/2022 12:10 PM CDT)Only the most recent of2 resultswithin the time period is included. Component Value Ref Test Analysis Performed Pathologis t Range Method Time At Signature Case Report Medical Cytology Report ? Case: [id number] ? [facility] Authorizing Provider: ??Adal Ramachandran MD ?? Collected: ? 01/19/2022 1210 ? 2 3:16 PM HEALTH Ordering Location: ? [facility] ?Received: ?01/19/2022 1256 ? CDT [facility]- ? [facility] ? CENTRAL Pathologist: ? Remi Gerard MD ? LABORATORY Specimen: ?Right Lung, n odule ? Final A) LUNG, RIGHT, [facility] Elec tronically Diagnosis CT-GUIDED NEEDLE 2 3:16 PM HEALTH sig eusebio by BIOPSY: Positive for CDT LABORATOR Arnaud Gould metastatic renal cell CENTRAL Lisette Garcia MD carcinoma, see comment LABORAT ORY for Remi Gerard MD on 01/20 at 3:16 PM Comment A) The morphology and immuno histochemical characteristics are those of renal cell carcinoma. Clear-cell renal cell carcinoma is favored based on the immunohistochemical pattern. [facility] 2 3:16 PM HEALTH Case seen in consultation with Drs. Schuler and Tammy. CDT LABORATORY- CENTRAL LABORATORY Clinical Mr. Wesley is a 76 y.o. who has a right lung nodule. A CT-guided needle biopsy performed January 07, 2022 showed malignant cells on the cytologic preparations, but had insufficient tissue for further characterization. [facility] Information 2 3:16 PM HEALTH A PET/CT scan dated July from [facility] describes a right renal mass measuring 9.7 x 7.3 x 5.2 cm with an SUV of 5.5. It is centrally necrotic. Also described are FDG avid portacaval l CDT LABORATORY- ymph nodes and a mass in the right upper lobe of the lung measuring 1.0 x 0.9 cm. There is also a central right upper lobe mass measuring 1.1 x 1.2 cm. The report concludes that the findings are suspici CENTRAL ous for a primary right renal neoplasm with metastases. LABORATORY Gross [facility] Description A) Received identified as R ight Lung Nodule is a radiologic guided biopsy specimen. 2 3:16 PM HEALTH CDT LABORATORY- The fragmented core biopsy sampling measures 0.2 cm x 0.1 cm in aggregate. CENTRAL LABORATORY The specimen consists of: ? -5 Air dried slides ? -1 Formalin vial ? -0 RPMI vials The following were prepared from the specimen submitted: ? -5 Diff-Quik stained slides ? -1 H&E stained cell block slide The biopsy material is entirely submitted in 1 cassette. A2 Cell block material was r emoved from the patient and placed directly in formalin at 1242 on 01/19/22 and fixed in formalin at least 6 hours and no more than 72 hours. Adequacy A) C.L. assessed [facility] Assessment adequacy from the 2 3:16 PM HEALTH air-dried smears at CDT LABORATORY - the time of the CENTRAL procedure with an LABORATORY impression of Adequate. Microscopic Specimen adequacy: Adequate for interpretation. [facility] Description 2 3:16 PM HEALTH All slides were reviewed. Th e microscopic appearance substantiates the diagnosis. CDT LABORATORY- CENTRAL This is a generous lung biop sy showing a malignant neoplasm in the lung. Morphologically I favor metastatic renal cell carcinoma but immunohistochemical stains are necessary and indicated further charac LABORATORY terize the process. The foll owing staining pattern is seen in the lesional cells: P40: Negative TTF-1: Negative (positive pneumocyte control) PAX 8: Strongly diffusely positive Cytokeratin cocktail: Positive Carbonic anhydrase IX: Positive Cytokeratin 7: Negative CD10: Patchy membranous staining GATA3: Negative A multiplex immunohistochemi stry antibody stain procedure which contains antibodies to P40 (red chromogen) and TTF-1 (brown chromogen), was performed on the paraffin-embedded tissue from block ??A2. The results are reflected in the diagnostic interpretation. Support for the interpretati on of this case may have included the use of immunohistochemistry and/or in situ hybridization tests that were performed by [employer] and whose performance characteristics were evaluat ed by pathologists from [facility]. These tests have not been cleared or approved by the U.S. Food and Drug Administration. The FDA has determined that suc h clearance or approval is n ot necessary. These tests are used for clinical purposes and should not be regarded as investigational or for research. This laboratory is certified under the Clinical Labora tory Improvement Amendments of 1988 (CLIA) as qualified to perform high complexity clinical laboratory testing. Additional Cytology is screened at [facility], Central Laboratory - [address], [place] [address] [address] [facility] - [address], [place] [address] [address] [facility] - [address] [place] [address] 2 3:16 PM HEALTH CDT LABORATORY- Interpreted at [facility], Central Laboratory - [address], [place] [address] CENTRAL LABORATORY Specimen Anatomical Collection Method Collection Time Receive d Time (Source) Location / / Volume Laterality Aspirate SPECIMEN FROM LUNG 01/19/2022 12:10 01/19 / Unknown PM CDT 12:56 PM CDT Adal Ramachandran MD PATHOLOGY/CYTOLOGY Performing Organization Address City/State/ZIP Code Phon e Number [facility] [address] [place] [address] LABORATORY-CENTRAL 2000 LABORATORY Protime-INR (01/07/2022 10:36 AM CDT) P athologist Signature INR 1.1 <1.3 01/07/2022 [facility] 10:58 AM CDT LABORATORY-CENTR AL LABORATORY PROTIME 13.4 12.0 - 13.8 01/07/2022 [facility] sec 10:58 AM CDT LABORATORY-CENTR AL LABORATORY Specimen Anatomical Collection Method / Collection Time Recei sandra Time (Source) Location / Volume Laterality Blood BLOOD SPECIMEN / Venipuncture / 01/07/2022 10:36 01/07 Unknown Unknown AM CDT 10:44 AM CDT Narrative [facility] LABORATORY-CENTRAL LABORAT ORY - 01/07/2022 10:58 AM CDT ?Therapeutic Range 2.0-3.0 for most anticoagulated patients 2.5-3.5 or 4.0 for high risk patients The INR is only used for patients on sta ble oral anticoagulant therapy. It makes no significant contribution to the diagnosis or treatment of patients whose Protime is prolonged f or other reasons. INR results are increased when heparin l evels exceed 1.0 U/mL, which corresponds to an aPTT >125 seconds if the patient is on UFH. Kodi Conteh MD HEMATOLOGY Performing Organization Address City/State/ZIP Code Phon e Number [employer] [employer] [address] [place] [address] LABORATORY-CENTRAL 2000 LABORATORY from Last 3 Months Insurance Payer Benefit Plan / Subscriber ID Effective Dates Phone Addre ss Type Group MEDICARE - PB MEDICARE PB [id number] 2020-Presen ATTN : CLAIMS USE ONLY ONLY t [address] [place] [address] MEDICARE PART B MEDICARE PART B [id number] 2009-Presen ATTN: CLAIMS - HB USE ONLY HB ONLY t [address] [place] [address] MEDICARE PART A MEDICARE PART A [id number] 2009-Presen ATTN: CLAIMS - HB USE ONLY HB ONLY t [address] [place] [address] BLUE CROSS BLUE CROSS OF [id number] 2018-Presen [address] [facility] [place] [address] Care Teams Environmental Services Manager Relationship Specialty Start Date End Date Beto Anne MD PCP - General Family Practice 12/29/21 [address] [place] [address]
--- OUTSIDE RECORDS SUMMARY | 2022-03-17 11:35 | XMS_ITS | Encounter Summary ---
:1945 Author Organization [facility] Address [address] [place] [address] Care Team Providers Name Role Phone Unavailable [...] Visit Dermatology Mark Bryant M.D. [address] [place], [place] [phone] (Wo rk) documented as of this encounter Procedures Procedure Name Priority Date/Time Associated Comments Diagnosis DERMATOLOGY IMAGE Routine 02/17/2021 11:24 Result s for this EXAM AM CDT procedure are i n the results section. documented in this encounter Results Back 527-Dermatology Image Exam (02/17/2021 11:24 AM CDT) Specimen (Source) Anatomical Collection Method Collection Time Re ceived Time Location / / Volume Laterality 02/17/2021 11:21 AM CDT Narrative [facility] - 02/17/2021 11:24 AM CDT This order has been created [...]
--- OUTSIDE RECORDS SUMMARY | 2022-03-17 11:35 | XMS_ITS | Encounter Summary ---
:1945 Author Organization [facility] Address [address] [place] [address] Care Team Providers Name Role Phone Unavailable [...] Visit Dermatology Mark Bryant M.D. [address] [place], [place] [phone] (Wo rk) documented as of this encounter Procedures Procedure Name Priority Date/Time Associated Comments Diagnosis DERMATOLOGY IMAGE Routine 02/03/2022 8:25 AM Resu lts for this EXAM CDT procedure are i n the results section. documented in this encounter Results ear, right anterior upper helix 116-Dermatology Image Exam (02/03/2022 8:25 AM CDT) Specimen [...]
--- OUTSIDE RECORDS SUMMARY | 2022-03-17 11:35 | XMS_ITS | Encounter Summary ---
:1945 Author Organization [facility] Address [address] [place] [address] Care Team Providers Name Role Phone Unavailable Primary Care Provider Unavailable Encounter Details Date Type Department Care Team Description 05/24/1989 PN Conversion Only CONCRETE POINTER [address] [place] [address] Social History Tobacco Use Types Packs/Day Years Used Date Smoking Tobacco: Never Assessed Sex Assigned at Date Recorded Not on file documented as of this encounter Plan of Treatment Not on filedocumented as of this encounter Visit Diagnoses Not on filedocumented in this encounter
--- OUTSIDE RECORDS SUMMARY | 2022-03-17 11:35 | XMS_ITS | Encounter Summary ---
:1945 Author Organization [facility] Address [address] [place] [address] Care Team Providers Name Role Phone Unavailable [...] Visit Dermatology Mark Bryant M.D. [address] [place], [place] [phone] (Wo rk) documented as of this encounter Procedures Procedure Name Priority Date/Time Associated Comments Diagnosis DERMATOLOGY IMAGE Routine 10/21/2021 3:27 PM Resu lts for this EXAM CDT procedure are i n the results section. documented in this encounter Results Ear, right Ant 116 118 120 122 124 130 128 126-Dermatology Image Exam (10/21/2021 3:27 PM CDT) Specimen (Source) Anatomical Collection Method Collection Time Re ceived Time Location / / Volume Laterality 10/21/2021 3:25 PM CDT Narrative [facility] - 10/21/2021 3:27 PM CDT This order has been created [...]
--- OUTSIDE RECORDS SUMMARY | 2022-03-17 11:35 | XMS_ITS | Encounter Summary ---
:1945 Author Organization [facility] Address [address] [place] [address]. [place] [address] Care Team Providers Name Role Phone None, Bfp Primary Care Provider Unavailable Encounter Details Date Type Department Care Team Description 09/18/2009 Results Only INTERFACED REPORT Carrie Steven MD [address] [phone] (Wo rk) Social History Tobacco Use Types Packs/Day Years Used Date Smoking Tobacco: Never Assessed Sex Assigned at Date Recorded Not on file documented as of this encounter Plan of Treatment Not on filedocumented as of this encounter Procedures Procedure Name Priority Date/Time Associated Diagnosis Comme nts COLONOSCOPY Routine 09/18/2009 9:35 AM Results f or this CDT procedure are i n the results section . documented in this encounter Results COLONOSCOPY (09/18/2009 9:35 AM CDT) [facility] Method Time Signature COLONOSCOPY [facility] RAD IOLOGY RESULTS Patient Name: Rita Wesley ? Gender: M ? Procedure Date: 09/18/2009 9: 35 AM ? Date of : 1945 ?Age: 64 ? Admit Type: Outpatient ? Attending MD: Han Moffett MD ? Procedure: ? Colonoscopy Indications: ? Average risk screening for malignant neoplasm in the ? colon Providers: ? Han Moffett MD Referring MD: ?Hugo Steven MD Medicines: ? Fentanyl 100 micrograms IV, Midazo elizabeth 1.5 mg IV, ? Atropine 0.6 mg IV Complications: ? No immediate complications Procedure: ? - Prior to the procedure, a History and Physical was ? performed, and patient medication allergies were ? reviewed. The patient is competent. The risks and ? benefits of the procedure and the sedation options and ? risks were discussed with the patient. All questions ? were answered and informed consent was obtained. Patient ? identification and proposed procedure were verified by ? the physician in the procedure room. Mental Status ? Examination: alert and oriented. Airway Examination: ? normal oropharyng eal airway and neck mobility. ? Respiratory Examination: clear to auscultation. CV ? Examination: normal. ASA Grade Assessment: I - A normal, ? healthy patient. After reviewing the risks and benefits, ? the patient was deemed in satisfactory condition to ? undergo the procedure. The anesthesia plan was to use ? moderate sedation / analgesia (conscious sedation). ? Immediately prior to administration of medications, the ? patient w as re-assessed for adequacy to receive ? sedatives. The heart rate, respiratory rate, oxygen ? saturations, blood pressure, adequacy of pulmonary ? ventilation, and response to care were monitored ? throughout the procedure. The physical status of the ? patient was re-assessed aft er the procedure. ? After obtaining informed consent, the colonoscope was ? passed under direct vision. Throughout the procedure, ? the patie nt's blood pressure, pulse, and oxygen ? saturations were monitored continuously. The Colonoscope ? P-17 #[id number] was introduced through the anus and ? advanced to the cecum, identified by appendiceal orifice ? & IC valve. The colonoscopy was performed without ? difficulty. The patient tolerated the procedure well. ? The quality of the prep was g ood. ? Findings: ? The digital rectal exam was normal. Multiple small and large-mouthed ? diverticula were found in the sigmoid colon. The rect um, descending ? colon, splenic flexure, transverse colon, hepatic f lexure, ascending ? colon, cecum and ileocecal valve appeared normal. The retroflexed view ? of the anal verge was normal and showed no anal or rectal abnormalities. ? Impression: ?- Diverticulosis sigmoid colon. ? - The rectum, descending colon, splenic flexure, ? transverse colon, hepatic flexure, ascending colon, ? cecum and ileocecal valve are normal. Recommendation: ?- Discharge patient to home (ambulat ory). ? - Collect Hemoccults on three spontaneously passed ? stools annually. ? - Flexible Sigmoidoscopy in 3 years. ? - Return to primary care phys ician PRN. ? R Betina Cooper Han Moffett MD Signed Date: 09/18/2009 10:29 AM Number of Addenda: 0 I was physically present for the entire viewing portion of t he exam. Note initiated on 09/18/2009 9:34 AM Specimen (Source) Anatomical Collection Method Collection Time Re ceived Time Location / / Volume Laterality 09/18/2009 9:35 AM CDT Hugo Steven MD PROCEDURES Performing Organization Address City/State/ZIP Code Phon e Number RADIOLOGY RESULTS documented in this encounter Visit Diagnoses Not on filedocumented in this encounter Care Teams Ip Litigation Paralegal Relationship Specialty Start Date End Date None, Bfp PCP - General 06/06/99 01/21/17 documented as of this encounter
--- OUTSIDE RECORDS SUMMARY | 2022-03-17 11:35 | XMS_ITS | Encounter Summary ---
:1945 Author Organization [facility] Address [address] [place] [address] Care Team Providers Name Role Phone Unavailable [...] Visit Dermatology Mark Bryant M.D. [address] [place], [place] [phone] (Wo rk) documented as of this encounter Procedures Procedure Name Priority Date/Time Associated Comments Diagnosis DERMATOLOGY IMAGE Routine 10/21/2021 3:25 PM Resu lts for this EXAM CDT procedure are i n the results section. documented in this encounter Results Back right 50 224 226 228-Dermatology Image Exam (10/21/2021 3:25 PM CDT) Specimen (Source) Anatomical Collection Method [...]
--- OUTSIDE RECORDS SUMMARY | 2022-03-17 11:35 | XMS_ITS | Encounter Summary ---
:1945 Author Organization [facility] Address [address] [place] [address]. 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 Details Date Type Department Care Team Description 04/16/2008 Abstract [facility] Petey Cortez, VAISHALI outside referral [facility] [address] [place] [address] (Wo rk) Social History Tobacco Use Types Packs/Day Years Used Date Smoking Tobacco: Never Assessed Sex Assigned at Date Recorded Not on file documented as of this encounter Plan of Treatment Scheduled Referrals Name Type Priority Associated Diagnoses Order S chedule CONSULT DIABETIC Referral Routine Ordered: 04/16/2008 EDUCATION documented as of this encounter Visit Diagnoses Diagnosis DIAGNOSIS NOT YET DEFINED - Primary documented in this encounter Care Teams Fur Stylist Relationship Specialty Start Date End Date None, Bfp PCP - General 06/06/99 01/21/17 documented as of this encounter
--- OUTSIDE RECORDS SUMMARY | 2022-03-17 11:36 | XMS_ITS | Encounter Summary ---
:1945 Author Organization [facility] Address [address] [place] [address] Care Team Providers Name Role Phone Unavailable Primary Care Provider Unavailable Encounter Details Date Type Department Care Team Description 11/15/2017 Ancillary Procedure Department of Dermatology Social History Tobacco Use Types Packs/Day Years Used Date Smoking Tobacco: Never Assessed Sex Assigned at Date Recorded Not on file documented as of this encounter Plan of Treatment Upcoming Encounters Date Type Specialty Care Team Description 05/05/2022 Office Visit Dermatology Mark Bryant M.D. [address] [place], [place] [phone] (Wo rk) documented as of this encounter Procedures Procedure Name Priority Date/Time Associated Comments Diagnosis DERMATOLOGY IMAGE Routine 11/15/2017 3:53 PM Resu lts for this EXAM CDT procedure are i n the results section. documented in this encounter Results DERMATOLOGY IMAGE EXAM (11/15/2017 3:53 PM CDT) Specimen (Source) Anatomical Collection Method Collection Time Re ceived Time Location / / Volume Laterality 11/15/2017 3:51 PM CDT Narrative [facility] - 11/15/2017 3:53 PM CDT This order has been created [...]
--- OUTSIDE RECORDS SUMMARY | 2022-03-17 11:36 | XMS_ITS | Encounter Summary ---
:1945 Author Organization [facility] Address [address] [place] [address] Care Team Providers Name Role Phone Unavailable Primary Care Provider Unavailable Reason for Visit Reason Comments Biopsy Encounter Details Date Type Department Care Team Description 12/21/2017 Procedure visit Department of Mark Bryant Tumor Skin Uncertain Behavior (Primary Dx); Dermatology in Michael Saleh M.D. [address] [phone] Social History Tobacco Use Types Packs/Day Years Used Date Smoking Tobacco: Never Assessed Sex Assigned at Date Recorded Not on file documented as of this encounter Progress Notes Mark Bryant M.D. - 12/21/2017 9:30 AM CDT CHIEF COMPLAINT Patient returns for 3 punch biopsies HISTORY OF THE PRESENT ILLNESS Rita Wesley is a pleasant 72 y.o. male who returns for 2 punch biopsies including the rightmid lateral back, and right scapula to rule out atypical nevus as well as a punch biopsy of his right lower back for a probable pigmented seborrheic keratosis. PAST MEDICAL HISTORY No history of skin cancer PHYSICAL EXAM General: Awake, alert, in no acute distress, and with appropriate affect. Skin: Examination of the right scapula reveals a 2.5 mm x 1.5 mm dark brown nevus. Examination of the right mid back reveals a 4.5 mm x 4 mm light brown nevus with slight irregular pigmentation. Examination of the right lower back reveals a 3.5 mm x 6 mm brown stuck on papule with slight irregular pigm entation. IMPRESSION AND PLAN #1 Right mid lateral back (right lateral back superior): Rule out atypical nevus We recommend a 6 mm punch biopsy. We will correspond as to the results and if any further treatment is needed. I advised him that he should avoid any strenuous activities including stretching and swimming, for the next 1-2 weeks. PROCEDURAL PAUSE Procedural pause conducted to verify: correct patient identity, procedure to be performed, and as applicable, correct side and site, correct patient position, and availability of implants, special equipment, or special requirements. PROCEDURE DETAILS Punch biopsy. We explained the potential diagnosis and recommended that we obtain a biopsy. The risks and benefitsof the procedure were discussed, and the patient consented to these procedures. Using 1% lidocaine with epinephrine for local anesthesia, a 6-mm punch biopsy was obtained from the right mid lateral back. Biopsy submitted to Dermatopathology. Biopsy site closed with a top layer of 3 4-0 nylon superficial sutures. The skin sutures need to be removed in 10-14 days. Dressing was applied, and wound care instructions were explained. Biopsy results and any further recommendations will be communicated to the patient by letter. Patient given pamphlet [id number]. #2 Right scapula: Rule out atypical nevus We recommend a 5 mm punch biopsy. We will correspond as to the results and if any further treatment is needed. I advised him that he should avoid any strenuous activities including stretching and swimming, for the next 1-2 weeks. PROCEDURAL PAUSE Procedural pause conducted to verify: correct patient identity, procedure to be performed, and as applicable, correct side and site, correct patient position, and availability of implants, special equipment, or special requirements. PROCEDURE DETAILS Punch biopsy. We explained the potential diagnosis and recommended that we obtain a biopsy. The risks and benefitsof the procedure were discussed, and the patient consented to these procedures. Using 1% lidocaine with epinephrine for local anesthesia, a 5-mm punch biopsy was obtained from the right scapula. Biopsysubmitted to Dermatopathology. Biopsy site closed with a top layer of 2 4-0 nylon. The skin sutures need to be removed in 10-14 days. Dressing was applied, and wound care instructions were explained. Biopsy results and any further recommendations will be communicated to the patient by letter. Patient given pamphlet [id number]. #3 Right lower back (right lateral back inferior): Probable pigmented seborrheic keratosis We recommend a 6 mm punch biopsy. We will correspond as to the results and if any further treatment is needed. I advised him that he should avoid any strenuous activities including stretching and swimming, for the next 1-2 weeks. PROCEDURAL PAUSE Procedural pause conducted to verify: correct patient identity, procedure to be performed, and as applicable, correct side and site, correct patient position, and availability of implants, special equipment, or special requirements. PROCEDURE DETAILS Punch biopsy. We explained the potential diagnosis and recommended that we obtain a biopsy. The risks and benefitsof the procedure were discussed, and the patient consented to these procedures. Using 1% lidocaine with epinephrine for local anesthesia, a 6-mm punch biopsy was obtained from the right lower back. Biopsy submitted to Dermatopathology. Biopsy site closed with a top layer of 3 4-0 nylon superficial sutures.The skin sutures need to be removed in 10-14 days. Dressing was applied, and wound care instructions were explained. Biopsy results and any further recommendations will be communicated to the patient by letter. Patient given pamphlet [id number]. PATIENT EDUCATION Ready to learn. No apparent learning barriers were identified. Learning preferences include listening. Explained diagnosis and treatment plan; patient/guardian of patient expressed understanding of thecontent. By signing my name below, I, Hubert Villarreal, attest that this documentation has been prepared under the direction and in the presence of Mark Bryant M.D.. Electronically Signed: betsy Mak. 12/21/2017. 7:40 AM . IMark M.D., personally performed the services described in this documentation. All medical record entries made by the scribe were at my direction and in my presence. I have reviewed the chart and discharge instructions (if applicable) and agree that the record reflects my personal performance and is accurate and complete. Mark Bryant M.D. . 12/21/2017. 9:58 AM. documented in this encounter Plan of Treatment Upcoming Encounters Date Type Specialty Care Team Description 05/05/2022 Office Visit Dermatology Mark Bryant M.D. [address] [place] [phone] (Wo rk) documented as of this encounter Procedures Procedure Name Priority Date/Time Associated Comments Diagnosis DERMATOPATHOLOGY CONSULT Routine 12/21/2017 9:51 Tumor Skin Results for this AM CDT Uncertain Behavior procedure are in the results section. documented in this encounter Results Dermatopathology Consult (12/21/2017 9:51 AM CDT) Component Value Ref Test Analysis Performed At [facility] Range Method Time Signature Gross A: ??Received in formalin labeled with the patient's name, 12/28/2017 [facility] Description: medical record number, and right lateral back superio r is 5:13 PM LABORATORIES - a 0.7 x 0.6 cm pale cronin ovoid skin punch biopsy, excised t o [facility] depth of 0.4 cm. ??There is a 0.4 x 0.3 cm cronin-brown CAMPUS pigmented lesion with irregular borders eccentrically located on the skin surface. ??The specimen is bisected and submitted entirely cassette A1. ??Grossed by SUN. B: ??Received in formalin labeled with the patient's name, medical record number, and right lateral back inferior is a 0.7 x 0.5 cm pale cronin ovoid skin punch biopsy, excised to depth of 0.5 cm. ??There is a 0.4 x 0.2 cm brown-collado pigmented lesion with irregular borders eccentrically located on the skin surface. ??The specimen is bisected and submitted entirely cassette B1. ??Grossed by AJJigna. C: ??Received in formalin labeled with the patient's name, medical record number, and right scapular is a 0.5 cm in diameter pale cronin ovoid skin punch biopsy, excised to depth of 0.4 cm. ??There is a 0.2 x 0.1 cm dark brown pigmented lesion with well-circumscribed borders eccentrically located on the skin surface. ??The specimen is bisected and submitted entirely cassette C1. ??Grossed by AJJigna. Participated in Diana Lau 12/28/2017 [place] DANITZA Singer D.OHeather-Pathology 5:13 PM LABORATORIES - Interpretation Fellow [facility] Report Comfort Haji D.O. 12/28/2017 [place] Roseann IRVIN electronically Parts A, B and C seen in consultation with: 5:13 PM LABORATORIES - signed by Raul Arriola M.D. CDT [facility] 12/28/2017 [facility] 5:13 PM LABORATORIES - CDT [facility] Disclaimer This test was developed and its performance characteri stics 12/28/2017 [facility] determined by [facility] in a manner consistent with CLIA 5:13 PM LABORATORIES - requirements. This test has not been cleared or approved b y CDT [facility] the U.S. Food and Drug Administration. CAMPUS Interpetation FINAL DIAGNOSIS 12/28/2017 [facility] IC A. ??DermPath Consult Wet Tissue; Right lateral back 5:13 PM LABORATORIES - superior, Skin punch biopsy: ??Compound nevus with moderat e CDT [facility] atypia, peripheral borders appear free of involvement CAMPUS COMMENT Multiple tissue levels examined. ??Melan A stain highlights the atypical melanocytic proliferation. ??Absence of nevus at borders in sections from a shave or punch specimen does not necessarily indicate that the lesion has been completely removed. ??Clinical and pathological correlation is recommended to determine adequacy of removal. B. ??DermPath Consult Wet Tissue; Right lateral back inferior, Skin punch biopsy: ??Lentiginous compound nevus with moderate atypia, peripheral borders appear free of involvement COMMENT Absence of nevus at borders in sections from a shave or punch specimen does not necessarily indicate that the lesion has been completely removed. ??Clinical and pathological correlation is recommended to determine adequacy of removal. C. ??DermPath Consult Wet Tissue; Right scapular, Skin punch biopsy: ??Lentiginous junctional nevus with severe atypia, extending to within 1.3 mm of the nearest peripheral border COMMENT Multiple tissue levels examined. ??Melan A stain highlights the atypical melanocytic proliferation. ??Complete surgical re-excision with appropriate margins is recommended. Specimen Anatomical Collection Method Collection Time Receive d Time (Source) Location / / Volume Laterality Tissue 12/21/2017 9:51 AM 8 9:20 CDT AM CDT Narrative This result has an attachment that is no t available. Mark Bryant M.D. LAB PATH DERM ORDERABLES Performing Organization Address City/State/ZIP Code Phon e Number [facility]ORATORIES - [address] [place], [place] [address] [facility] documented in this encounter Visit Diagnoses Diagnosis Tumor Skin Uncertain Behavior - Primary Nevi Multiple documented in this encounter Administered Medications Inactive Administered Medications - up to 3 most recent administrations Medication Order MAR Action Action Date Dose Rate Site lidocaine-EPINEPHrine 1 %-1:100,000 Given 12/21/2017 9:45 AM CDT 5 mL injection 5 mL (XYLOCAINE W/EPI) 5 mL, infiltration, Once, On Wed12/21/17 at 0945, For 1 dose documented in this encounter
--- OUTSIDE RECORDS SUMMARY | 2022-03-17 11:36 | XMS_ITS | Encounter Summary ---
:1945 Author Organization [facility] Address [address] [place] [id number] Care Team Providers Name Role Phone Unavailable Primary Care Provider Unavailable Encounter Details Date Type Department Care Team Description 01/07/2018 Orders Only Department of Mark Bryant, Nev Atyp ical (Primary Dermatology in M.D. Dx) [place], [place] [address] [facility] [address] [place] [phone] Social History Tobacco Use Types Packs/Day Years Used Date Smoking Tobacco: Never Assessed Sex Assigned at Date Recorded Not on file documented as of this encounter Plan of Treatment Upcoming Encounters Date Type Specialty Care Team Description 05/05/2022 Office Visit Dermatology Mark Bryant M.D. [address] [place], [place] [phone] (Wo rk) Scheduled Orders Name Type Priority Associated Diagnoses Order S chedule KELSEY Excision 1-2 sites Dermatology Routine Nevus Atypical Exp ected: 01/07/2018 (Approximate), Expires: 2020 documented as of this encounter Visit Diagnoses Diagnosis Nevus Atypical - Primary documented in this encounter
--- OUTSIDE RECORDS SUMMARY | 2022-03-17 11:36 | XMS_ITS | Encounter Summary ---
:1945 Author Organization [facility] Address [address] [place] [address] Care Team Providers Name Role Phone Unavailable Primary Care Provider Unavailable Reason for Visit Reason Comments Skin Check Encounter Details Date Type Department Care Team Description 04/04/2018 Office Visit Department of Mark Bryant, Erica holbrook (Primary Dx); Dermatology in Michael Meredith Keratosis [address] [phone] Social History Tobacco Use Types Packs/Day Years Used Date Smoking Tobacco: Never Smokeless Tobacco: Never Sex Assigned at Date Recorded Not on file documented as of this encounter Progress Notes Mark Bryant M.D. - 04/04/2018 11:00 AM CST CHIEF COMPLAINT Recheck of atypical nevus involving the right scapula HISTORY OF THE PRESENT ILLNESS Rita Wesley is a pleasant 72 y.o. male who follows up for recheck of atypical nevus involving the right scapula. I most recently saw the patient on 12/21/17. During that visit, a nevus involving the right scapula was biopsied. Dermatopathology returned as lentiginous junctional nevus with severe atypia, extending to within 1.3 mm of the nearest peripheral border l. This lesion was re-excised on 01/20/18 and dermatopathology identified no residual nevus. The patient denies any lesions of concern today. He intermittently uses sunscreen. PAST MEDICAL HISTORY No history of skin cancer PHYSICAL EXAM General: Awake, alert, in no acute distress, and with appropriate affect. Lymph: No lymphadenopathy of head, neck, and axilla. Skin: Exam limited as patient had a full body exam in October 2017. Examination of the right scapula reveals an excision scar with no evidence of recurrence of severely atypical nevus. Examination of the trunk and extremities reveals multiple benign nevi and a few seborrheic keratoses. Otherwise, examination of the back reveals multiple lentigenes. No suspicious lesions for skin cancer today. 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 Return in September-October 2018 for full skin cancer screening exam. Otherwise, return immediately if any changes. #2 Multiple nevi and lentigenes The ABCDE criteria for melanoma was reviewed with the patient. None of the patient's nevi reach the clinical threshold for biopsy. I recommend continued sun protection, self-skin examinations, and observation. Should any of the patient's nevi change in size, color, texture, or shape or develop symptoms such as itching or bleeding, I recommend an immediate return visit for reassessment. #3 Trunk and extremities: Seborrheic Keratosis The benign nature of the skin lesion(s) was discussed with the patient. No treatment is required. I recommend continued observation. Should symptoms or changes develop related to this condition, I would recommend a return visit for reassessment. PATIENT EDUCATION Ready to learn. No apparent learning barriers were identified. Learning preferences include listening. Explained diagnosis and treatment plan; patient/guardian of patient expressed understanding of thecontent. By signing my name below, I, Miley Mishra, attest that this documentation has been prepared under the direction and in the presence of Mark Bryant M.D.. Electronically Signed: betsy Hatfield. 04/04/2018. 10:41 AM . Mark Uriostegui M.D., personally performed the services described in this documentation. All medical record entries made by the scribe were at my direction and in my presence. I have reviewed the chart and discharge instructions (if applicable) and agree that the record reflects my personal performance and is accurate and complete. Mark Bryant M.D. . 04/04/2018. 11:04 AM. 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 [address] [place], [place] [phone] (Wo rk) documented as of this encounter Visit Diagnoses Diagnosis Nevi Multiple - Primary Keratosis Seborrheic documented in this encounter
--- OUTSIDE RECORDS SUMMARY | 2022-03-17 11:36 | XMS_ITS | Encounter Summary ---
:1945 Author Organization [facility] Address [address] [place] [address] Care Team Providers Name Role Phone Unavailable Primary Care Provider Unavailable Reason for Visit Reason Comments Skin Check Appointment Request (Routine) - Closed Specialty Diagnoses / Procedures Referred By Contact Refer red To Contact Family Medicine Referral ID Status Reason Start Date Expiration Date Visits Requ ested Visits Authorized [id number] Closed 04/24/2019 04/23/2020 1 1 Encounter Details Date Type Department Care Team Description 02/12/2020 Office Visit Department of Mark Bryant, Keratosis Seborrheic (Primary Dx); Dermatology in [place], [place] [address] [phone] Social History Tobacco Use Types Packs/Day Years Used Date Smoking Tobacco: Never Smokeless Tobacco: Never Sex Assigned at Date Recorded Not on file documented as of this encounter Progress Notes Mark Bryant M.D. - 02/12/2020 9:45 AM CDT SUBJECTIVE CHIEF COMPLAINT / REASON FOR VISIT Skin cancer recheck HISTORY OF PRESENT ILLNESS Mr. Rita Wesley is a 74 y.o. male who is accompanied by his and who presents today fora full skin cancer screening examination. On his lat visit with me in Dermatology on 02/06/2019 a full skin cancer screening exam was done. The patient has a history of severely atypical nevus involving the right scapula, status post re-excision on 01/20/18. The patient denies a personal or family history for melanoma. No areas of concern today. Allergies Allergen Reactions ??? Sulfa (Sulfonamide Antibiotics) Hives MEDICAL HISTORY 1. Negative for skin cancer 2. 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 OBJECTIVE PHYSICAL EXAMINATION General: Awake, alert, in no acute distress, and with appropriate affect. Eyes: No scleral injection or icterus. No eyelid abnormalities. Lymph: No lower extremity edema. Skin: I have examined the scalp, face, neck, chest, abdomen, back, bilateral upper extremities, and bilateral lower extremities. Examination of the right scapula reveals no clinical evidence for recurrence of severely atypical nevus. Examination of face, trunk, and extremities reveals multiple benign appearing nevi and lentigines, and multiple SKs. Examination of the right upper parietal scalp reveals a blue nevus that measures 3 x 2.5 mm. Examination today reveals no suspicious lesions for skin cancer. ASSESSMENT / PLAN #1 Face, trunk, and extremities: Multiple benign appearing nevi and lentigines The ABCDE criteria for melanoma was reviewed with the patient. None of the patient's nevi reach the clinical threshold for biopsy. I recommend continued sun protection, self-skin examinations, and observation. Should any of the patient's nevi change in size, color, texture, or shape or develop symptoms such as itching or bleeding, I recommend an immediate return visit for reassessment. #2 Face, trunk, and extremities: Multiple seborrheic keratosis The benign nature of the skin lesion(s) was discussed with the patient. No treatment is required. I recommend continued observation. Should symptoms or changes develop related to this condition, I would recommend a return visit for reassessment. 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 Follow up immediately if changes are noticed during monthly self examination. Otherwise followup in 6-12 months. #4 Right upper parietal scalp: Benign nevus Photographs taken today. My index for suspicion for atypia is very low on clinical exam and dermoscopy today. Will continue to monitor clinically. Follow- up immediately if changes occur during monthly self-skin exam. Otherwise follow up in 3 months. PATIENT EDUCATION: Ready to learn. No apparent learning barriers were identified. Learning preferences include listening. Explained diagnosis and treatment plan; patient/guardian of patient expressed understanding of thecontent. By signing my name below, I, Smitha Gambino, attest that this documentation has been prepared underthe direction and in the presence of Mark Bryant M.D. Electronically Signed: betsy Saenz. 02/11. I, Mark Bryant M.D., personally performed the services described in this documentation. All medical record entries made by the scribe were at my direction and in my presence. I have reviewed the chart and discharge instructions (if applicable) and agree that the record reflects my personal performance and is accurate and complete. Mark Bryant M.D. 02/11. documented in this encounter Plan of Treatment Upcoming Encounters Date Type Specialty Care Team Description 05/05/2022 Office Visit Dermatology Mark Bryant M.D. [address] [place], [place] [phone] (Wo rk) documented as of this encounter Visit Diagnoses Diagnosis Keratosis Seborrheic - Primary Nevi Multiple documented in this encounter
--- OUTSIDE RECORDS SUMMARY | 2022-03-17 11:36 | XMS_ITS | Encounter Summary ---
:1945 Author Organization [facility] Address [address] [place] [address] Care Team Providers Name Role Phone Unavailable Primary Care Provider Unavailable Reason for Visit Reason Comments Skin Check Encounter Details Date Type Department Care Team Description 11/15/2017 Office Visit Department of Mark Bryant, Erica holbrook (Primary Dx); Dermatology in [place] [facility] [address] [phone] Social History Tobacco Use Types Packs/Day Years Used Date Smoking Tobacco: Never Assessed Sex Assigned at Date Recorded Not on file documented as of this encounter Progress Notes Mark Bryant M.D. - 11/15/2017 3:15 PM CDT CHIEF COMPLAINT/REASON FOR VISIT Skin cancer screening exam HISTORY OF PRESENT ILLNESS Mr. Rita Wesley is a 72 y.o. male who presents today for a full skin cancer screening examination. The patient denies a history of skin cancer. During his last visit in January 2017, the patient had a nevus with a focal island of slightly darker pigmentation near the center on his left medial calf which was unchanged. He also had two left lateral neck lesions which were both removed by in [place]. 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 The patient denies any lesions of concern. He uses sunscreen intermittently and practices sun avoidance. The patient notes a lesion on his back which he feels is irritated and wanted examined. Allergies Allergen Reactions ??? Sulfa (Sulfonamide Antibiotics) Hives PAST MEDICAL HISTORY No history of skin cancer FAMILY HISTORY No family history for melanoma PHYSICAL EXAM General: Awake, alert, in no acute distress, and with appropriate affect. Eyes: No scleral injection or icterus. No eyelid abnormalities. Lymph: No lower extremity edema. Skin: I have examined the scalp, face, neck, chest, abdomen, back, bilateral upper extremities, and bilateral lower extremities. Examination of the left lateral neck reveals a small scar at the site ofprevious epidermal cyst. Examination of the left medial calf reveals a benign appearing nevus with focal island of darker pigmentation, the nevus measures 4 mm x 3 mm with the darker pigmentation being1 mm in diameter. This lesion looks benign on clinical examination and dermoscopy and has not changed. Examination of the right mid lateral back reveals a 4 mm x 5 mm brown irregularly pigmented lesionwhich looks like a pigmented seborrheic keratosis. Examination of the right upper lateral back reveals a 3.5 mm x 4.5 mm light brown slightly irregularly pigmented nevus suspicious for an atypical nevus. Examination of the right scapula reveals a 1 mm x 2 mm dark brown nevus that is darker than the others but uniform. Examination of the back reveals multiple benign nevi, seborrheic keratoses and scott angiomas. IMPRESSION/REPORT/PLAN #1 Right mid lateral back: Probable pigmented seborrheic keratosis Will remove with 6 mm punch biopsy in 4-6 weeks just to be safe. Photograph taken today with patient's verbal consent. #2 Right upper lateral back: Rule out atypical nevus. Will remove with 6 mm punch biopsy in 4-6 weeks just to be safe. Photograph taken today with patient's verbal consent. #3 Right scapula: Rule out atypical nevus Will remove with 6 mm punch biopsy in 4-6 weeks just to be safe. Photograph taken today with patient's verbal consent. #4 Multiple nevi The ABCDE criteria for melanoma was reviewed with the patient. None of the patient's nevi reach the clinical threshold for biopsy. I recommend continued sun protection, self-skin examinations, and observation. Should any of the patient's nevi change in size, color, texture, or shape or develop symptoms such as itching or bleeding, I recommend an immediate return visit for reassessment. #5 Back: Seborrheic Keratosis The benign nature of the [...] thecontent. By signing my name below, I, Albino Hopkins, attest that this documentation has been prepared underthe direction and in the presence of Mark Bryant M.D.. Electronically Signed: betsy De La Cruz. 11/15/2017. 3:29 PM . I, Mark Bryant M.D., personally performed the services described in this documentation. All medical record entries made by the scribe were at my direction and in my presence. I have reviewed the chart and discharge instructions (if applicable) and agree that the record reflects my personal performance and is accurate and complete. Mark Byrant M.D. . 11/15/2017. 3:56 PM. documented in this encounter Plan of Treatment Upcoming Encounters Date Type Specialty Care Team Description 05/05/2022 Office Visit Dermatology Mark Bryant M.D. [address] [place], [place] [phone] (Wo rk) Scheduled Orders Name Type Priority Associated Diagnoses Order S chedule Dermatology misc minor Dermatology Routine Nevi Multiple Expe cted: 12/21/2017 procedure (Approximate), Expires: 2020 documented as of this encounter Visit Diagnoses Diagnosis Nevi Multiple - Primary Keratosis Seborrheic documented in this encounter
--- OUTSIDE RECORDS SUMMARY | 2022-03-17 11:36 | XMS_ITS | Encounter Summary ---
:1945 Author Organization [facility] Address [address] [place] [address] Care Team Providers Name Role Phone Unavailable Primary Care Provider Unavailable Encounter Details Date Type Department Care Team Description 01/07/2018 Abstract DATA ABSTRACTION Provider, Historical Social History Tobacco Use Types Packs/Day Years Used Date Smoking Tobacco: Never Assessed Sex Assigned at Date Recorded Not on file documented as of this encounter Plan of Treatment Upcoming Encounters Date Type Specialty Care Team Description 05/05/2022 Office Visit Dermatology Mark Bryant M.D. [address] [place], [place] [phone] (Wo rk) documented as of this encounter Visit Diagnoses Not on filedocumented in this encounter
--- OUTSIDE RECORDS SUMMARY | 2022-03-17 11:36 | XMS_ITS | Encounter Summary ---
:1945 Author Organization [facility] Address [address] [place] [address] Care Team Providers Name Role Phone Unavailable Primary Care Provider Unavailable Encounter Details Date Type Department Care Team Description 02/12/2020 Ancillary Procedure Department of Dermatology Social History Tobacco Use Types Packs/Day Years Used Date Smoking Tobacco: Never Smokeless Tobacco: Never Sex Assigned at Date Recorded Not on file documented as of this encounter Plan of Treatment Upcoming Encounters Date Type Specialty Care Team Description 05/05/2022 Office Visit Dermatology Mark Bryant M.D. [address] [place], [place] [phone] (Wo rk) documented as of this encounter Procedures Procedure Name Priority Date/Time Associated Comments Diagnosis DERMATOLOGY IMAGE Routine 02/12/2020 10:10 Result s for this EXAM AM CDT procedure are i n the results section. documented in this encounter Results scalp, right parietal/frontal 4-Dermatology Image Exam (02/12/2020 10:10 AM CDT) Specimen (Source) Anatomical Collection Method Collection Time Re ceived Time Location / / Volume Laterality 02/12/2020 10:08 AM CDT Narrative [facility] - 02/12/2020 10:12 AM CDT This order has been created [...]
--- OUTSIDE RECORDS SUMMARY | 2022-03-17 11:36 | XMS_ITS | Encounter Summary ---
:1945 Author Organization [facility] Address [address] [place] [address] Care Team Providers Name Role Phone Unavailable [...] Visit Dermatology Mark Bryant M.D. [address] [place], [place] [phone] (Wo rk) documented as of this encounter Procedures Procedure Name Priority Date/Time Associated Comments Diagnosis DERMATOLOGY IMAGE Routine 11/15/2017 3:54 PM Resu lts for this EXAM CDT procedure are i n the results section. documented in this encounter Results DERMATOLOGY IMAGE EXAM (11/15/2017 3:54 PM CDT) Specimen (Source) Anatomical Collection Method Collection Time Re ceived Time Location / / Volume Laterality 11/15/2017 3:51 PM CDT Narrative [facility] - 11/15/2017 3:54 PM CDT This order has been created [...]
--- OUTSIDE RECORDS SUMMARY | 2022-03-17 11:36 | XMS_ITS | Encounter Summary ---
:1945 Author Organization [facility] Address [address] [place] [address] Care Team Providers Name Role Phone Unavailable Primary Care Provider Unavailable Encounter Details Date Type Department Care Team Description 01/20/2018 Ancillary Procedure Department of Dermatology Social History Tobacco Use Types Packs/Day Years Used Date Smoking Tobacco: Never Assessed Sex Assigned at Date Recorded Not on file documented as of this encounter Plan of Treatment Upcoming Encounters Date Type Specialty Care Team Description 05/05/2022 Office Visit Dermatology Mark Bryant M.D. [address] [place], [place] [phone] (Wo rk) documented as of this encounter Procedures Procedure Name Priority Date/Time Associated Comments Diagnosis DERMATOLOGY IMAGE Routine 01/20/2018 12:00 Result s for this EXAM PM CDT procedure are i n the results section. documented in this encounter Results DERMATOLOGY IMAGE EXAM (01/20/2018 12:00 PM CDT) Specimen (Source) Anatomical Collection Method Collection Time Re ceived Time Location / / Volume Laterality 01/20/2018 12:00 PM CDT Narrative [facility] - 01/20/2018 3:45 PM CDT This order has been created [...]
--- OUTSIDE RECORDS SUMMARY | 2022-03-17 11:36 | XMS_ITS | Encounter Summary ---
:1945 Author Organization [facility] Address [address] [place] [address] Care Team Providers Name Role Phone Unavailable Primary Care Provider Unavailable Reason for Visit Reason Comments Lesion Right upper parietal scalp Appointment Request (Routine) - Closed Specialty Diagnoses / Procedures Referred By Contact Refer red To Contact Dermatology Referral ID Status Reason Start Date Expiration Date Visits Requ ested Visits Authorized [id number] Closed 02/12/2020 02/11/2021 1 1 Encounter Details Date Type Department Care Team Description 05/06/2020 Office Visit Department of Mark Bryant, Johanna Blue (Primary Dermatology in [place] Dx) [place], [place] [address] [phone] Social History Tobacco Use Types Packs/Day Years Used Date Smoking Tobacco: Never Smokeless Tobacco: Never Sex Assigned at Date Recorded Not on file documented as of this encounter Progress Notes Mark Bryant M.D. - 05/06/2020 11:15 AM CST SUBJECTIVE CHIEF COMPLAINT / REASON FOR VISIT Recheck nevus HISTORY OF PRESENT ILLNESS Rita Wesley is a pleasant 74 y.o. male who follows up for a recheck of a nevus involving the right upper parietal scalp. The patient was last seen by me in Dermatology clinic on 02/12/2020 andat that time we felt this nevus was compatible with a blue nevus and was benign on clinical exam anddermoscopy. Additionally, photographs were taken at that time. Today the patient denies any changes to the nevus since his previous visit in dermatology clinic. MEDICAL HISTORY 1. Negative for skin cancer 2. 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 FAMILY HISTORY No family history for melanoma. OBJECTIVE PHYSICAL EXAMINATION General: Awake, alert, in no acute distress, and with appropriate affect. Skin: Limited skin exam done today. Examination of the right upper parietal scalp reveals a blue nevus that measures 3 x 2 mm. ASSESSMENT / PLAN #1 Right upper parietal scalp: Benign appearing nevus The benign nature of the skin lesion(s) was discussed with the patient. My index for suspicion for atypia is very low on clinical exam and dermoscopy today. Will continue to monitor clinically. Should this lesion change in size, color, texture, or shape or develop symptoms such as itching or bleeding,I recommend an immediate return visit for reassessment. Otherwise, return in 4-6 months for a recheck of the stated lesion and a full skin cancer screening exam. PATIENT EDUCATION: Ready to learn. No apparent learning barriers were identified. Learning preferences include listening. Explained diagnosis and treatment plan; patient/guardian of patient expressed understanding of thecontent. By signing my name below, I, Smitha Gambino, attest that this documentation has been prepared underthe direction and in the presence of Mark Bryant M.D. Electronically Signed: betsy Saenz. 05/06/2020. IMark M.D., personally performed the services described in this documentation. All medical record entries made by the scribe were at my direction and in my presence. I have reviewed the chart and discharge instructions (if applicable) and agree that the record reflects my personal performance and is accurate and complete. Mark Bryant M.D. 05/06. PATIAL IMAGERY INTELLIGENCE ANALYST documented in this encounter Plan of Treatment Upcoming Encounters Date Type Specialty Care Team Description 05/05/2022 Office Visit Dermatology Mark Bryant M.D. [address] [place] [phone] (Wo rk) documented as of this encounter Visit Diagnoses Diagnosis Nevus Blue - Primary documented in this encounter
--- OUTSIDE RECORDS SUMMARY | 2022-03-17 11:36 | XMS_ITS | Encounter Summary ---
:1945 Author Organization [facility] Address [address] [place] [address] Care Team Providers Name Role Phone Unavailable Primary Care Provider Unavailable Reason for Referral Outpatient (Routine) - Closed Specialty Diagnoses / Procedures Referred By Contact Refer red To Contact Dermatology Mark Bryant M.D . [facility] [address] [place] [address] Referral ID Status Reason Start Date Expiration Date Visits Requ ested Visits Authorized [id number] Closed 02/17/2021 02/17/2022 1 1 Scheduling Instructions Recheck few nevi in 3 months Reason for Visit Reason Comments Skin Check Appointment Request (Routine) - Closed Specialty Diagnoses / Procedures Referred By Contact Refer red To Contact Dermatology Referral ID Status Reason Start Date Expiration Date Visits Requ ested Visits Authorized [id number] Closed 10/08/2020 10/08/2021 1 1 Encounter Details Date Type Department Care Team Description 02/17/2021 Office Visit Department of Mark Bryant Nevi Multi ple (Primary Dx); [place]ology [place] [address] [place] [phone] Social History Tobacco Use Types Packs/Day Years Used Date Smoking Tobacco: Never Smokeless Tobacco: Never Sex Assigned at Date Recorded Not on file documented as of this encounter Progress Notes Mark Bryant M.D. - 02/17/2021 11:15 AM CDT SUBJECTIVE CHIEF COMPLAINT / REASON FOR VISIT Full skin cancer screening HISTORY OF PRESENT ILLNESS Rita Wesley is a pleasant 75 y.o. male who follows up for a full skin cancer screening. Thepatient was last seen by me in Dermatology clinic on 05/06/20. He denies a personal history of skin cancer or family history for melanoma. He has a history of a severely atypical nevus involving the right scapula, status post re-excision on 01/20/[address] Hein at [facility]. We are following a blue nevus involving the right upper parietal scalp. He uses sunscreen. He denies any new or changing lesions today. MEDICAL HISTORY 1. Negative for skin cancer 2. Right scapula: History of severely atypical nevus, status post re-excision on 01/20/[address] Hein at [facility] FAMILY HISTORY Negative for melanoma OBJECTIVE [...] of severely atypical nevus. Examination of the face, trunk and extremities reveals multiple benign-appearing nevi, lentigines and seborrheic keratoses. Examination of the left parietal scalp reveals a benign-appearing vascular lesion. Examination of the right upper parietal scalp reveals a 3.5 x 2.5 mm bluish- macule, compatible with a blue nevus. Examination of the right lateral neck (base) reveals a pigmented seborrheic keratosis. Examination of the right upper paraspinal back (superior, A) reveals a 1.5 x 1.5 mm uniformly pigmented dark-brown nevus, which looks benign on clinical exam and dermoscopy. Examination of the right upper paraspinal back (inferior, B) reveals a 5 x 5 mm brown nevus with slightly jagged borders, which looks benign on clinical exam and dermoscopy. ASSESSMENT / PLAN #1 Face, trunk and extremities: Multiple nevi and [...] monitor the lesion(s) involving the right upper paraspinal back (superior, A) and right upper paraspinal back (inferior, B). Photographs taken today. Follow up in 3 monthsfor a recheck of the stated lesion(s). #2 Face, trunk and extremities: Seborrheic keratosis The benign nature of the skin lesion(s) was discussed with the patient. No treatment is required. I recommend continued observation. Should this lesion change in size, color, texture, or shape or develop symptoms such as itching or bleeding, I recommend an immediate return visit for reassessment. #3 Right scapula: History of severely atypical nevus, status post re-excision on 01/20/[address] Hein at [facility], no recurrence No clinical evidence of [...] thecontent. By signing my name below, I, Jhonny Kim, attest that this documentation has been prepared under thedirection and in the presence of Mark Bryant M.D. Electronically Signed: betsy Crews. 02/11/2021. 3:54 PM CDT. Mark Uriostegui M.D., personally performed [...] Visit Dermatology Mark Bryant M.D. [address] [place], [place] [phone] (Wo rk) Scheduled Referrals Name Type Priority Associated Order Schedule Diagnoses Dermatology office Outpatient Referral Routine Ex pected: visit (clinic) 05/19/2021 (Approximate), Expires: 02/18/2024 documented as of this encounter Visit Diagnoses Diagnosis Nevi Multiple - Primary Keratosis Seborrheic documented in this encounter
--- OUTSIDE RECORDS SUMMARY | 2022-03-17 11:36 | XMS_ITS | Encounter Summary ---
:1945 Author Organization [facility] Address [address] [place] [address] Care Team Providers Name Role Phone Unavailable [...] Visit Dermatology Mark Bryant M.D. [address] [place], [place] [phone] (Wo rk) documented as [...]
--- OUTSIDE RECORDS SUMMARY | 2022-03-17 11:36 | XMS_ITS | Encounter Summary ---
:1945 Author Organization [facility] Address [address] [place] [address] Care Team Providers Name Role Phone Unavailable Primary Care Provider Unavailable Encounter Details Date Type Department Care Team Description 01/20/2018 Procedure visit Department of Simon, Benjius Atypi ninoska (Primary Dx); Dermatology in [facility] Yoselin, Lesion Skin Chest [place], [place] Viri, M.S. [address] [place] [address] Social History Tobacco Use Types Packs/Day Years [...] Index - - documented in this encounter Procedure Notes Bernie Concepcion M.D., Ph.D. - 01/20/2018 2:45 PM CDT PREOP INDICATION: REMOVAL. Date of Surgery: 01/20/2018 Surgeon: Dr. Rayray Hein Floating Operator: Dr. Rachael Lares and Dr. Bernie Concepcion Location: [facility]: Floor:16 Room:[facility] Visit Type: Outpatient PostOp Diagnosis: Lentiginous junctional nevus with severe atypia Anatomic Location: Right scapula Preoperative size: 0.8 x 0.5 cm with circumferential margins of 5 mm for a total excision diameter of 5.4 cm. Procedure: Excision with intermediate layered closure Prior to the procedure, final verification of the patient identity and correct marked surgical site was performed. Procedural pause conducted to verify: correct patient identity, procedure to be performed and as applicable, correct side and site, correct patient position, and availability of implants, special equipment or special requirements. INFORMED CONSENT Discussed the risks, benefits, alternatives, and the necessity of other members of the healthcare team participating in the procedure. All questions answered and consent given. PATIENT EDUCATION Ready to learn, no apparent learning barriers were identified; learning preferences include listening. Explained diagnosis and treatment plan; patient expressed understanding of the content. Preoperative medications: None Anesthesia used was 1% lidocaine with 1:200,000 epinephrine. The skin was prepped in a sterile fashion with Hibiclens. The lesion was excised with 5-mm clinically tumor-free margins in a fusiform fashion through the skin and through the subcutaneous tissue. The wound edges were undermined as needed, and hemostasis was obtained with electrocoagulation. Due to wound size, the wound edges were closed in an intermediate layered fashion with 3-0 Vicryl and 4-0 Monocryl subcutaneous sutures and 4-0 nylon skin sutures. Postoperative length: 5.4 cm. Estimated blood loss: Minimal. Complications: None. Wound care: Routine. Specimen sent to Dermatopathology. B iopsy report is pending. Postoperative medications: None Associated attestation - Rayray Hein M.D., M.S. - 01/20/2018 5:35 PM CDT I saw and evaluated the patient, participating in the bills elements of the service. I discussed the findings, assessment and plan with the resident and agree with resident???s findings and plan as documented in the resident's note. I was immediately available for the entirety of the procedure(s) and present for the bills and critical portions. documented in this encounter Consult Notes Bernie Concepcion M.D., Ph.D. - 01/20/2018 2:45 PM CDT Referral Mark Bryant M.D. Supervised by: Dr. Rayray Hein Assisted by: Dr. Rachael Lares and Dr. Bernie Concepcion Patient seen and discussed with supervising insolvency consultant, Dr. Hein, who evaluated the patient and concurs with the assessment and plan. Chief Complaint Lentiginous junctional nevus with severe atypia, right scapula HISTORY OF THE PRESENT ILLNESS Rita Wesley is a pleasant 72 y.o. male who comes in to procedure clinic for excision of lentiginous junctional nevus with severe atypia on his right scapular. The patient was last evaluated inoutpatient dermatology by Dr. Mark Bryant on December 21, 2017. At that time, he had 3 biopsies performed: right lateral back superior and right lateral back inferior, which showed compound nevus with moderate atypia and lentiginous compound nevus with moderate atypia, respectively; and right scapula, which showed lentiginous junctional nevus with severe atypia, extending to within 1.3 mm of the nearestperipheral border. No personal or family history of skin cancer. The dermatologic surgery preoperative information sheet was reviewed. His past medical history is positive for aoj-ubyniux-soxjfaonk diabetes. The patient denies history of heart disease, pacemaker, defibrillator, lung disease, liver disease, stroke, infectious diseases (including hepatitis B, hepatitis C, or HIV), organ transplant, bleeding or healing problems. The patient denies artificial joints or other implants. Daily aspirin: Yes Anticoagulation: No Tobacco use: No Alcohol use: Occasionally PHYSICAL EXAM Vitals: BP 140/78, HR 75 General: Awake, alert, in no acute distress, and with appropriate affect. Skin: A limited skin examination was performed per patient preference. Involving the right scapula, 0.8 x 0.5 cm well-healing, mildly erythematous biopsy site without evidence of new pigmentation. Multiple nevi scattered across trunk. Involving the right lower chest, immediately below right areola, 4 x 4 mm light to dark brown nevus with irregular pigmentation, concerning for atypical nevus. IMPRESSION AND PLAN #1 Lentiginous junctional nevus with severe atypia, right scapula The patient presents to Procedure Clinic today for excision of lentiginous junctional nevus with severe atypia on his right scapular. We discussed risks and benefits of the procedure including scar, pain, bleeding, infection, recurrence, activity limitations. Patient wished to proceed. 5-mm margins were used. The patient tolerated the procedure well. Please see the operative note for further detail. Mark Bryant M.D. will be in contact with the patient with the pathology results. #2 Skin lesion uncertain behavior, right lower chest Photograph obtained. Punch biopsy performed. PUNCH BIOPSY PROCEDURE The anesthesia used was 1% lidocaine with epinephrine 1:200,000. The skin was prepped in a sterile fashion with alcohol. A specimen from the right lower chest was excised in a circular fashion through the full thickness of the dermis into the fat using a 6-mm disposable punch. The skin was approximated with two 4-0 nylon skin sutures, to be removed in approximately 7 days. Blood loss: Minimal. Complications: None. Wound care: Routine. A specimen was sent to Dermatopathology. The report and recommendations will be communicated to the patient. Dr. Bernie Concepcion will be in contact with the patient with the pathology results. PROCEDURAL PAUSE Procedural pause conducted to verify: correct patient identity, procedure to be performed, and as applicable, correct side and site, correct patient position, and availability of implants, special equipment, or special requirements. PATIENT EDUCATION Ready to learn. No apparent learning barriers were identified. Learning preferences include listening. Explained diagnosis and treatment plan; patient/guardian of patient expressed understanding of thecontent. INFORMED CONSENT Discussed the risks, benefits, alternatives, and the necessity of other members of the healthcare team participating in the procedure. All questions answered and consent given. Associated attestation - Rayray Hein M.D., M.S. - 01/20/2018 5:35 PM CDT I saw and evaluated the patient, participating in the bills elements of the service. I discussed the findings, assessment and plan with the resident and agree with resident???s findings and plan as documented in the resident's note. I was immediately available for the entirety of the procedure(s) and present for the bills and critical portions. documented in this encounter Plan of Treatment Upcoming Encounters Date Type Specialty Care Team Description 05/05/2022 Office Visit Dermatology Mark Bryant M.D. [address] [place] [phone] (Wo ) Scheduled Orders Name Type Priority Associated Diagnoses Order S chedule Dermatopathology Pathology and Routine Nevus Atypical Once for 1 Cytology Occurrences sta rting 01/20/2018 documented as of this encounter Procedures Procedure Name Priority Date/Time Associated Diagnosis Selwyn portillo DERMATOPATHOLOGY Routine 01/20/2018 2:23 PM Nevus Atypical Res ults for this CDT procedure are i n the results section. documented in this encounter Results Dermatopathology (01/20/2018 2:23 PM CDT) Component Value Ref Test Analysis Performed At [facility] Range Method Time Signature Gross Description A: ?? Received in formalin labeled with the patie nt's name, 01/26/2018 [facility] medical record number, and right lower chest is a 0.6 x 4:24 PM LABORATORIES - 0.5 cm cronin-white skin punch biopsy, excised to a depth of T [facility] 0.7 cm. ??There is a 0.4 x 0.3 cm pale brown black pigmented [facility]AMPUS lesion centrally located on the skin surface. ??Specimen is bisected and submitted entirely in cassette A1. ??Grossed by RERE. B: ?? B. ??Received in formalin and labeled by patient's name, medical record number, and right scapular is an unoriented 3.9 x 1.3 cm skin ellipse to a depth 0.4 cm. The surface of the skin shows a 0.5 x 0.3 cm hypopigmented lesion, located at 0.5 cm from the closest margin. ??The margins are inked black. ??[employer] Associate sections are submitted as follows: ??B1: ??Tips B2-3: Lesion Report Soledad I. 01/26/2018 [facility] electronically Viri Hargrove 4:24 PM LABORATORIE S - signed by [facility] 01/26/2018 [facility] 4:24 PM LABORATORIES - T [facility] Interpretation FINAL DIAGNOSIS 01/26/2018 [facility]. ??Right lower chest, Skin punch biopsy: ??Compound nevu s 4:24 PM LABORATORIES - COMMENT [facility] Clinical photo reviewed. [facility] B. ??Right scapular, Skin excision: ??Re-excision of atypica l junctional nevus ([id number], accession date 12/21/2017), no residual nevus identified in the sections examined Specimen (Source) Anatomical Collection Method Collection Time Re ceived Time Location / / Volume Laterality Skin (Right lower 01/20/2018 2:23 PM chest) CDT Narrative This result has an attachment that is no t available. Bernie Concepcion M.D., Ph.D. LAB PATH DERM ORDERABLES Performing Organization Address City/State/ZIP Code Phon e Number [facility]ORATORIES - [address] [place], [place] [address] [facility] documented in this encounter Visit Diagnoses Diagnosis Nevus Atypical - Primary Lesion Skin Chest documented in this encounter Administered Medications Active Administered Medications - up to 3 most recent administrations Medication Order MAR Action Action Date Dose Rate Site lidocaine-EPINEPHrine 1%-1:200,000 Given 01/20/2018 2:35 PM CDT 12 mL injection 2-50 mL (XYLOCAINE W/EPI) 2-50 mL, infiltration, As needed, may repeat if the patient complains of pain/discomfort at the site up to 50 mL for entire procedure, Starting on Nuvia 01/20/18 at 1558 documented in this encounter
--- OUTSIDE RECORDS SUMMARY | 2022-03-17 11:36 | XMS_ITS | Encounter Summary ---
:1945 Author Organization [facility] Address [address] [place] [address] Care Team Providers Name Role Phone Unavailable Primary Care Provider Unavailable Reason for Visit Reason Comments Skin Check Appointment Request (Routine) - Closed Specialty Diagnoses / Procedures Referred By Contact Refer red To Contact Dermatology Referral ID Status Reason Start Date Expiration Date Visits Requ ested Visits Authorized [id number] Closed 08/29/2018 08/29/2019 1 1 Encounter Details Date Type Department Care Team Description 02/06/2019 Office Visit Department of Mark Bryant Nevi Multi ple (Primary Dx); Dermatology in [facility]; [place], [place] [address] [facility] Keratosis Seborrheic; [address] [place] [address] [place] [phone] Social History Tobacco Use Types Packs/Day Years Used Date Smoking Tobacco: Never Smokeless Tobacco: Never Sex Assigned at Date Recorded Not on file documented as of this encounter Progress Notes Mark Bryant M.D. - 02/06/2019 10:00 AM CDT CHIEF COMPLAINT Full skin cancer screening HISTORY OF THE PRESENT ILLNESS Rita Wesley is a pleasant 73 y.o. male who presents for a full skin cancer screening. The patient has history of severely atypical nevus involving the right scapula, status post re-excision on01/20/18. No recurrence was noted since then. He denies personal history of skin cancer, or family history for melanoma. The patient does not use sunscreen regularly. No new or changing lesions are noted today. MEDICAL HISTORY 1. Negative for skin cancer 2. History of severely atypical nevus involving the right scapula, status post re-excision on 01/20/18 FAMILY HISTORY Negative for melanoma PHYSICAL EXAM General: Awake, alert, in no acute distress, and with appropriate affect. Eyes: No scleral injection or icterus. No eyelid abnormalities. Lymph: No lower extremity edema. Skin: I have examined the scalp, face, neck, chest, abdomen, back, bilateral upper extremities and bilateral lower extremities. Examination of the right scapula reveals an excision scar with no evidence for recurrence of severely atypical nevus. Examination of the face reveals actinic keratoses, including right ear antihelix x2. Examination of the face reveals a few dermal nevi. Examination of the arms reveals actinic keratoses, including right distal arm x1 and left distal arm x1. Examination of the left medial triceps reveals a 3.5 mm x 3 mm brown nevus with slight asymmetry. Examination of the arms reveals multiple benign-appearing nevi and a few seborrheic keratoses. Examination of the legs reveals several benign-appearing nevi and a few seborrheic keratoses. Examination of the trunk reveals several benign-appearing nevi and a few seborrheic keratoses. IMPRESSION AND PLAN #1 Right ear and arms: Actinic keratosis x4 CONSENT Discussed the risks, benefits, alternatives, and the necessity of other members of the healthcare team participating in the procedure. All questions answered and consent given. PROCEDURE INFORMATION Given the precancerous nature of this lesion(s), treatment is medically indicated. After discussion of the risks, benefits and alternatives to treatment with cryotherapy, informed consent was obtained.We treated 2 lesion(s) involving the right ear antihelix with two 10-second freeze-thaw cycles of liquid nitrogen cryotherapy and 2 lesion(s) involving the right and left distal arms with two [id number] freeze-thaw cycles of liquid nitrogen cryotherapy. The patient tolerated the procedure well. Aftercare instructions were provided in written and verbal form to the patient. Should any of these lesions recur, the patient should return for biopsy or further evaluation. Follow up in 1-2 months for rech jud if these areas do not complete resolve. #2 Trunk and extremities: Multiple nevi The ABCDE criteria for melanoma was reviewed with the patient. None of the patient's nevi reach the clinical threshold for biopsy. We will closely monitor the lesion involving the left medial triceps. I recommend continued sun protection, self-skin examinations, and observation. Should any of the patient's nevi change in size, color, texture, or shape or develop symptoms such as itching or bleeding, I recommend an immediate return visit for reassessment. Follow up in 4-6 months for recheck of the stated lesion, or immediately if any new or changing lesions are noted. #3 Trunk and extremities: Seborrheic keratosis The benign nature of the skin lesion(s) was discussed with the patient. No treatment is required. I recommend continued observation. Should symptoms or changes develop related to this condition, I would recommend a return visit for reassessment. #4 Face: Dermal nevi The benign nature of the skin lesion(s) was discussed with the patient. No treatment is required. I recommend continued observation. Should symptoms or changes develop related to this condition, I would recommend a return visit for reassessment. #5 Right scapula: History of severely atypical nevus No evidence of recurrence on clinical exam today. Continue observation. Return immediately if changes are noted. Otherwise, follow up in 6-12 months for a full skin check. PATIENT EDUCATION: Ready to learn. No apparent learning barriers were identified. Learning preferences include listening. Explained diagnosis and treatment plan; patient/guardian of patient expressed understanding of thecontent. By signing my name below, I, Jhonny Kim, attest that this documentation has been prepared under thedirection and in the presence of Mark Bryant M.D. Electronically Signed: betsy Crews. 02/06/2019. 10:00 AM. Mark Uriostegui M.D., personally performed the services described in this documentation. All medical record entries made by the scribe were at my direction and in my presence. I have reviewed the chart and discharge instructions (if applicable) and agree that the record reflects my personal performance and is accurate and complete. Mark Bryant M.D. . 02/06/2019. 10:40 AM. documented in this encounter Plan of Treatment Upcoming Encounters Date Type Specialty Care Team Description 05/05/2022 Office Visit Dermatology Mark Bryant M.D. [address] [place], [place] [phone] (Wo rk) documented as of this encounter Visit Diagnoses Diagnosis Nevi Multiple - Primary Keratosis Actinic Keratosis Seborrheic Nevus Dermal documented in this encounter
--- OUTSIDE RECORDS SUMMARY | 2022-03-17 11:36 | XMS_ITS | Encounter Summary ---
:1945 Author Organization [facility] Address [address] [place] [address] Care Team Providers Name Role Phone Unavailable Primary Care Provider Unavailable Encounter Details Date Type Department Care Team Description 01/06/2018 Clinical Communication Department of aMrk Bryant, Dermatology in [place], [place] [address] [facility] [address] [place] [phone] Social History Tobacco Use Types Packs/Day Years Used Date Smoking Tobacco: Never Assessed Sex Assigned at Date Recorded Not on file documented as of this encounter Miscellaneous Notes Telephone Encounter - Mark Bryant M.D. - 01/06/2018 12:00 AM CDT Regarding telephone conversation. I called Mr. Wesley and left him a voice message for him stating that I was calling to discuss biopsy results and asked him to call me back tomorrow and have me paged. Job ID: [id number] documented in this encounter Plan of Treatment Upcoming Encounters Date Type Specialty Care Team Description 05/05/2022 Office Visit Dermatology Mark Bryant M.D. [address] [place] [phone] (Wo rk) documented as of this encounter Visit Diagnoses Not on filedocumented in this encounter
== END 2022-03-17 11:59 | disposition home or self-care (01) ==
LOC: ED 11:31
PROVIDERS: Emergency Provider Emergency Medicine Emergency Medical Services; PCP Family Medicine
DX: R04.0 Epistaxis (principal)
CPT/HCPCS: 99283; 99284

== ENCOUNTER 2022-03-22 18:53 | Emergency (ER) | payer MEDICARE, BC, SELFPAY ==
[2022-03-22 19:29] VITALS: BP 162/81; PULSE 93; RESP 18; TEMP 36.7; O2SAT 97; BMI 23.7
--- NOTE | 2022-03-22 20:14 | ED.EPISTAXIS ---
History of Present Illness General Time Seen by Provider: 20:15 Date Seen: 03/22/22 Chief Complaint: Epistaxis/Nosebleed Stated Complaint: Nose Bleed Time Seen by Provider: 03/22/22 20:14 Source: patient, RN notes reviewed and old records reviewed Mode of arrival: ambulatory Limitations: no limitations History of Present Illness HPI Narrative: Rita is a very pleasant 76-year-old gentleman currently on chemotherapy medication lenvatinib which is associated with nasal bleeds as well as blood pressure medications, diabetic medications who comes to the emergency room with a nosebleed. Patient notes that he has had a nose bleed intermittently over the past few days. Yesterday he felt like he was doing okay but today the nose started bleeding from the right [place] and was gushing to the point where they were concerned. They came to the emergency room after 2 hours of bleeding and while sitting in the waiting room the bleeding actually stopped. Rita says he can still feel this down the back of his throat. He is not lightheaded. He cannot recall any specific trauma. The 1st time this happened he had just loves nose. Related Data Home Medications Medication Instructions Recorded Confirmed lancets (OneTouch UltraSoft 12/01/21 03/10/22 Lancets) pembrolizumab 25 mg/mL intravenous 200 mg IV Q3W 01/30/22 03/10/22 solution (Keytruda) acetaminophen 325 mg tablet 650 mg PO .twice a day PRN 03/10/22 03/10/22 (Tylenol) lenvatinib 14 mg/day (10 mg x 1 14 mg PO QDAY 03/10/22 03/10/22 and 4 mg x 1) capsule (Lenvima) omeprazole 20 mg capsule,delayed 20 mg PO QDAY 03/10/22 03/10/22 release polyethylene glycol 3350 17 4 g PO QDAY 03/10/22 03/10/22 gram/dose oral powder (Miralax) Previous Rx's Medication Instructions Recorded glipizide 2.5 mg tablet, extended 2.5 mg PO DAILY #90 tabs 02/19/22 release 24 hr diltiazem HCl 240 mg 240 mg PO DAILY #90 caps 02/25/22 capsule,extended release 24 hr lisinopril 20 1 tab PO DAILY #90 tabs 02/25/22 mg-hydrochlorothiazide 12.5 mg tablet metoprolol tartrate 25 mg tablet 12.5 mg PO BID #90 tabs 02/25/22 tamsulosin 0.4 mg capsule 0.4 mg PO DAILY #90 caps 02/25/22 blood sugar diagnostic (FranckTouch #100 ea 03/11/22 Ultra Test strips) Allergies Allergy/AdvReac Type Severity Reaction Status Date / Time metformin AdvReac Intermediate GI Upset Verified 03/10/22 10:03 Sulfa Antibiotics Allergy Mild Hives Uncoded 03/10/22 10:03 Review of Systems Narrative: Denies fever chills. [facility] Medical History Abdominal pain Degeneration of intervertebral disc of lumbar region Epidermoid cyst of neck Hyperglycemia Renal mass, right Surgical History History of bilateral inguinal hernia repair History of colonoscopy History of rotator cuff surgery Family History Family/Other Type 1 diabetes mellitus Type 2 diabetes mellitus Mother Diverticulitis of colon Rheumatoid arthritis Father Prostate cancer Other Encounter for annual physical exam Encounter for pre-operative examination Non-alcoholic fatty liver disease Social History Narrative: Non-smoker Smoking Status: Never smoker Second hand tobacco smoke exposure: No How often do you have a drink containing alcohol: never How often do you have six or more drinks on one occasion: Never AUDIT-C Alcohol total score: 0 Non-prescribed substance use: denies use Exam Narrative: Exam Narrative: Patient is alert and oriented. Nontoxic in appearance. He is holding pressure on the right side of his nose. Gently this is released. He has blood on his Kleenex but he does not have any blood draining at this time. Gently I examined the septum and cannot find any active bleed. He does sit for a bit there is no blood going down the back of his throat. He has a normal pulse at this time. He has good color. Const: Vital Signs, click to edit/add: Vital Signs - 24 hr 03/22/22 19:29 03/22/22 21:12 03/22/22 21:12 Temperature 98.0 F 98.0 F 98.0 F Pulse Rate [Right Pulse Oximeter] 93 93 93 Respiratory Rate 18 18 18 Blood Pressure [Ri ght Upper Arm] 162/81 H 154/74 H 154/74 H Pulse Oximetry 97 97 Oxygen Delivery Me thod Room Air Room Air Course Vital Signs Vital signs: Initial Vital Signs Temperature 98.0 F 03/22/22 19:29 Temperature Source Temporal Artery Scan 03/22/22 19:29 Pulse Rate 93 03/22/22 19:29 Respiratory Rate 18 03/22/22 19:29 Blood Pressure 162/81 H 03/22/22 19:29 Blood Pressure Mean 108 03/22/22 19:29 Blood Pressure Position Sitting 03/22/22 19:29 Pulse Oximetry 97 03/22/22 19:29 Oxygen Delivery Method 03/22/22 19:29 Vital Signs Temperature 98.0 F 03/22/22 19:29 Pulse Rate 93 03/22/22 19:29 Respiratory Rate 18 03/22/22 19:29 Blood Pressure 162/81 H 03/22/22 19:29 Pulse Oximetry 97 03/22/22 19:29 Oxygen Delivery Method 03/22/22 19:29 Temperature 98.0 F 03/22/22 21:12 Pulse Rate 93 03/22/22 21:12 Respiratory Rate 18 03/22/22 21:12 Blood Pressure 154/74 H 03/22/22 21:12 Pulse Oximetry 97 03/22/22 21:12 Oxygen Delivery Method 03/22/22 21:12 MDM - Epistaxis MDM Narrative Medical decision making narrative: 1. Epistaxis-bleeding has resolved at this time. I did speak to patient about placing a rhino rocket but give him the option of waiting to see what happens. They would like to wait and see. I did check recent labs any has normal platelets. Normal hemoglobin recently as well. Pulses back to normal at this time. Patient will do Afrin spray b.i.d.. I did tell him that it may lose effectiveness after certain period of time. They do have a follow-up appointment this week with Dr. Ramos which they were advised to keep. A course they will need to return to the emergency room for worsening symptoms. 2. Hypertension-this may be playing into patient's difficulty with nose bleeds. Patient had in the past been on metoprolol 25 mg but felt sleepy all of the time. He was then decreased to 12.5 mg b.i.d. but now only takes this once a day. I am advising him to take 12.5 mg tonight and to start using 1 full metoprolol 25 mg in the morning. He is advised that this will increase his risk of feeling lightheaded and he should not get up from sitting or lying down position quickly. 3. Disposition-patient is discharged home. Will need to return if he has recurrent bleeding. Family appears happy with this plan. 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 Medical Records Attestation: I reviewed the patient's medical records. Lab Data Attestation: I reviewed the patient's lab results. Lab results narrative: Normal platelets from previous visit Discharge Plan Discharge Clinical Impression: Epistaxis Patient Disposition: Home, Self-Care Condition: Improved Additional Instructions: Sleep with head of bed elevated 30?. Do not bend over to tie shoes or do anything that would increase intracranial pressure. Recommend metoprolol 1/2 tablet tonight (12.5 mg) and 1 full tablet (25 mg) in the mornings. Remember that this does slow you down and so to move your legs before you get up. To get up suddenly places you at risk for fainting. Afrin twice daily Follow-up with Dr. Ivory Muñiz as scheduled. Return to the emergency room as needed. Prescriptions: No Action (DME) lancets [OneTouch UltraSoft Lancets] Misc See Rx Instructions .Route Rx Instructions: daily As directed Keytruda 25 mg/mL solution 200 mg IV Q3W Rx Instructions: administer over 30 mins acetaminophen [Tylenol] 325 mg tablet 650 mg PO .twice a day PRN omeprazole 20 mg capsule,delayed release(DR/EC) 20 mg PO QDAY Lenvima 14 mg/day(10 mg x 1-4 mg x 1) capsule 14 mg PO QDAY polyethylene glycol 3350 [Miralax] 17 gram/dose powder 4 g PO QDAY glipizide 2.5 mg tablet extended release 24hr 2.5 mg PO DAILY Qty: 90 3RF lisinopril-hydrochlorothiazide 20-12.5 mg tablet 1 tab PO DAILY Qty: 90 1RF metoprolol tartrate 25 mg tablet 12.5 mg PO BID Qty: 90 1RF tamsulosin 0.4 mg capsule 0.4 mg PO DAILY Qty: 90 1RF diltiazem HCl 240 mg capsule,extended release 24hr 240 mg PO DAILY Qty: 90 1RF (DME) OneTouch Ultra Test Strip See Rx Instructions .Route Qty: 100 3RF Rx Instructions: daily -As directed Follow Up/Referrals: Beto Anne MD [Primary Care Provider] - Stand Alone Forms: [employer] Info Instructions
--- OUTSIDE RECORDS SUMMARY | 2022-03-22 20:36 | XMS_ITS | Encounter Summary ---
:1945 Author Organization [facility] Address [address] [place] [address]. [place] [address] Care Team Providers Name Role Phone None, Bfp Primary Care Provider Unavailable Encounter Details Date Type Department Care Team Description 04/30/2005 GI Procedure [facility] Han Moffett MD None Endoscopy [place] XX RETIRED XXX [address] [place] [address] [place] [address] [phone] Social History Tobacco Use Types Packs/Day Years Used Date Smoking Tobacco: Never Assessed Sex Assigned at Date Recorded Not on file documented as of this encounter Plan of Treatment Not on filedocumented as of this encounter Procedures Procedure Name Priority Date/Time Associated Diagnosis Comme nts COLONOSCOPY Routine 04/30/2005 8:25 AM Results f or this OUTSOLE CUTTER MACHINE procedure are i n the results section . documented in this encounter Results COLONOSCOPY (04/30/2005 8:25 AM OUTSOLE CUTTER MACHINE) [facility] Method Time Signature COLONOSCOPY Endoscopy RADIOLOGY [...] oxygen saturations were monitored ?cont inuously. The [facility] [id number] #[id number] was introduced through ?the anus and advanced [...] yrs. ?- Return to primary care provider MD N. ? CPT Code(s): ?43108, Colonoscopy, flexible, proxim al to splenic flexure; ?with removal of tumor(s), polyp(s), or other lesion(s) by hot ?biopsy forceps or bipolar cautery ICD Code(s): ?211.3, Benign Neoplasm of Colon The codes documented in this report are prelimin naila and upon bone char puller review may be revised to meet current [...] / / Volume Laterality 04/30/2005 8:25 AM OUTSOLE CUTTER MACHINE Han Moffett MD PROCEDURES Performing Organization Address City/State/ZIP Code Phon e Number RADIOLOGY RESULTS documented in this encounter Visit Diagnoses Not on filedocumented in this encounter Care Teams Commercial Sales Consultant Relationship Specialty Start Date End Date None, Bfp PCP - General 06/06/99 01/21/17 documented as of this encounter
--- OUTSIDE RECORDS SUMMARY | 2022-03-22 20:36 | XMS_ITS | Encounter Summary ---
:1945 Author Organization [facility] Address [address] [place] [address] Care Team Providers Name Role Phone Unavailable Primary Care Provider Unavailable Reason for Visit Auth/Cert Specialty Diagnoses / Procedures Referred By Contact Refer red To Contact Diagnoses Nuclear sclerosis of right eye Procedures Cataract extraction with intraocular lens implant Referral ID Status Reason Start Date Expiration Date Visits Requ ested Visits Authorized [id number] 1 1 Encounter Details Date Type Department Care Team Description 09/02/2021 Anesthesia Event [place] [facility] Remi Mars MD [facility] [address] [place] [address] [place], [place] [address] [address] [place] [address] [phone] (Wo rk) Anesthesia Record Procedure Summary Procedure [...] by 0859 by Sclera; Right; Sonia Sanches, uMndo Rodriguez, 09/02/21; 0859 RN RN Peripheral IV [...] Mars MD - 09/02/2021 9:05 AM CDT [facility] Anesthesia Post-op Note Patient: Rita Wesley Post-Op [...] Mars MD - 09/02/2021 7:45 AM CDT [facility] Anesthesia Pre-op Evaluation Procedure: Cataract extraction with [...] benefits and alternatives discussed with: Patient or Textile Screen Printer agree tothe anesthesia treatment plan. HTN DM [...]
--- OUTSIDE RECORDS SUMMARY | 2022-03-22 20:36 | XMS_ITS | Encounter Summary ---
:1945 Author Organization [facility] Address [address] [place] [address] Care Team Providers Name Role Phone Unavailable Primary Care Provider Unavailable Reason for Visit Auth/Cert Specialty Diagnoses / Procedures Referred By Contact Refer red To Contact Diagnoses Nuclear sclerosis of left eye Procedures Cataract extraction with intraocular lens implant Referral ID Status Reason Start Date Expiration Date Visits Requ ested Visits Authorized [id number] 1 1 Encounter Details Date Type Department Care Team Description 09/16/2021 Anesthesia Event [facility] Same Day Rosy Medrano MD Surgery [facility] [address] [facility] [address] [place] [address] [phone] Anesthesia Record Procedure Summary Procedure Name Responsible [...] Electronically s igned by Sarah Wilson APRN, DOCTOR OF NURSE ANESTHESIA PRACTICE [id number] An Stop Care transferred . Name [...] Medrano MD - 09/16/2021 9:16 AM CDT [facility] Anesthesia Post-op Note Patient: Rita Wesley [...] Medrano MD - 09/16/2021 8:01 AM CDT [facility] Anesthesia Pre-op Evaluation Procedure: Cataract extraction [...] benefits and alternatives discussed with: Patient or Service Unit Operator agree tothe anesthesia treatment plan and Patient. Possibility of blood products discussed. The patient and/or their apparel trimmings sales representative were notified about the potential risks [...]
--- OUTSIDE RECORDS SUMMARY | 2022-03-22 20:36 | XMS_ITS | Encounter Summary ---
:1945 Author Organization [facility] Address [address] [place] [address]. [place] [address] Care Team Providers Name Role Phone Beto [...] on filedocumented in this encounter Care Teams Educational Guidance Counselor Relationship Specialty Start Date End Date Beto Anne PCP - General Family Medicine 01/05/22 [facility] [address] [place] [address] documented as of this encounter
--- OUTSIDE RECORDS SUMMARY | 2022-03-22 20:36 | XMS_ITS | Encounter Summary ---
:1945 Author Organization [facility] Address [address] [place] [address] Care Team Providers Name Role Phone Unavailable Primary Care Provider Unavailable Reason for Visit Auth/Cert Specialty Diagnoses / Procedures Referred By Contact Refer red To Contact Diagnoses Nuclear sclerosis of left eye Procedures Cataract extraction with intraocular lens implant Referral ID Status Reason Start Date Expiration Date Visits Requ ested Visits Authorized [id number] 1 1 Encounter Details Date Type Department Care Team Description 09/16/2021 Surgery [facility] Same Day Seymour Lui MD Cataract extraction with Surgery Center [address] [place] intraocular lens implant [address] 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 ANESTHESIA: Monitored Anesthesia Care with topical [...] Implant Name Type Inv. Item Serial No. Political Advisor Lot No. LRB No. Used Action LENS IOL TECNIS [id number] 20.5 - [id number] DEVICE LENS IOL TECNIS ZCB00 20.5 [id number] [employer] Left 1 Implanted documented [...] Glucose, Whole 148 70 - 180 09/16/2021 [place] Blood mg/dL 7:37 AM CDT LABORATORY Performing SDS MG 09/16/2021 [place] Location 7:37 AM CDT LABORATORY Specimen Anatomical Collection Method Collection Time Receive d Time (Source) Location / / Volume Laterality Blood 09/16/2021 7:36 AM 7:37 CDT AM CDT Seymour Lui MD LAB_1 Performing Organization Address City/State/ZIP Code Phon e Number [place] [address] [facility] [phone] documented in this encounter Visit Diagnoses Diagnosis [...] (DEMEROL) injection 12.5 mg 12.5 mg, Intravenous, [id number], Shiverin g, Starting on Wed09/16/21 at 0757, [...] (DEMEROL) injection 12.5 mg 12.5 mg, Intravenous, [id number], Shiverin g, Starting on Wed09/16/21 at 0757, [...]
--- OUTSIDE RECORDS SUMMARY | 2022-03-22 20:36 | XMS_ITS | Encounter Summary ---
:1945 Author Organization [email or web address] Address [address] [place] [address] Care Team Providers Name Role Phone Unavailable Primary Care Provider Unavailable Reason for Visit Auth/Cert Specialty Diagnoses / Procedures Referred By Contact Refer red To Contact Diagnoses Nuclear sclerosis of left eye Procedures Cataract extraction with intraocular lens implant Referral ID Status Reason Start Date Expiration Date Visits Requ ested Visits Authorized [id number] 1 1 Encounter Details Date Type Department Care Team Description 09/16/2021 Hospital Encounter [facility] Same Day Seymour Talley MD Surgery Center [address] [place] [address] [place] [address] 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 ANESTHESIA: Monitored Anesthesia Care with topical [...] Implant Name Type Inv. Item Serial No. Osd Clerk Lot No. LRB No. Used Action LENS IOL TECNIS [id number] 20.5 - [id number] DEVICE LENS IOL TECNIS ZCB00 20.5 [id number] [employer] Left 1 Implanted documented [...] Glucose, Whole 148 70 - 180 09/16/2021 [place] Blood mg/dL 7:37 AM CDT LABORATORY Performing SDS MG 09/16/2021 [facility] Location 7:37 AM CDT LABORATORY Specimen Anatomical Collection Method Collection Time Receive d Time (Source) Location / / Volume Laterality Blood 09/16/2021 7:36 AM 7:37 CDT AM CDT Seymour Lui MD LAB_1 Performing Organization Address City/State/ZIP Code Phon e Number [facility] [place] [address] [facility] [phone] documented in this encounter Visit Diagnoses Not [...] (DEMEROL) injection 12.5 mg 12.5 mg, Intravenous, [id number], Shiverin g, Starting on Wed09/16/21 at 0757, [...] (DEMEROL) injection 12.5 mg 12.5 mg, Intravenous, [id number], Shiverin g, Starting on Wed09/16/21 at 0757, [...] % ophthalmic solution 44 (Given - Provider: Olga Smith RN) ONCE [...]
--- OUTSIDE RECORDS SUMMARY | 2022-03-22 20:36 | XMS_ITS | Encounter Summary ---
:1945 Author Organization [facility] Address [address] [place] [address] Care Team Providers Name Role Phone Unavailable Primary Care Provider Unavailable Encounter Details Date Type Department Care Team Description 04/11/2021 Orders Only HIM DEPARTMENT Provider, Gordon funk [place] [address] Social History Tobacco Use Types Packs/Day Years [...]
--- OUTSIDE RECORDS SUMMARY | 2022-03-22 20:36 | XMS_ITS | Encounter Summary ---
:1945 Author Organization [facility] Address [address] [place] [address] Care Team Providers Name Role Phone Unavailable Primary Care Provider Unavailable Reason for Visit Reason Comments Post Op Exam Encounter Details Date Type Department Care Team Description 09/17/2021 Office Visit [place] Seymour Lui, Pseudophak ia (Primary Dx); Ophthalmology MD Suspected glaucoma of both eyes [address] [place] [address] [facility] [address] [place] [address] [phone] Social History Tobacco Use Types Packs/Day Years Used Date Smoking Tobacco: Never Assessed Sex Assigned at Date Recorded Not on file documented as of this encounter Progress Notes Seymour Lui MD - 09/17/2021 11:00 AM CDT I reviewed the information stated in the sanitation technician's note for today and agree, unless [...]
--- OUTSIDE RECORDS SUMMARY | 2022-03-22 20:36 | XMS_ITS | Encounter Summary ---
:1945 Author Organization [facility] Address [address] [place] [address]. [place] [address] Care Team Providers Name Role Phone None, Bfp Primary Care Provider Unavailable Encounter Details Date Type Department Care Team Description 04/16/2008 [facility] Petey Cortez RN DIAGNOSIS NOT YET [facility] DEFINED [address] [place], [place] [address] (Wo rk) Social History Tobacco Use Types Packs/Day Years Used Date Smoking Tobacco: Never Assessed Sex Assigned at Date Recorded Not on file documented as of this encounter Plan of Treatment Pending Results Name Type Priority Associated Diagnoses Date/Ti me HEMOGLOBIN A1C [51206.001] Lab Routine DIAGNOSIS NOT YET DEFINED 02/16/2008 GLUCOSE [56841.005] Lab Routine DIAGNOSIS NOT YET DEF INED 02/16/2008 CHOLESTEROL [21766.000] Lab Routine DIAGNOSIS NOT YET DEFINED 12/08/2007 LDL-CHOLESTEROL [22575.001] Lab Routine DIAGNOSIS NOT YET DEFINED 12/08/2007 HDL CHOLESTEROL [54871.000] Lab Routine DIAGNOSIS NOT YET DEFINED 12/08/2007 TRIGLYCERIDES [08969.000] Lab Routine DIAGNOSIS NOT Y ET DEFINED 12/08/2007 documented as of this encounter Visit Diagnoses Diagnosis DIAGNOSIS NOT YET DEFINED documented in this encounter Care Teams Technical Implementation Lead Relationship Specialty Start Date End Date None, Bfp PCP - General 06/06/99 01/21/17 documented as of this encounter
--- OUTSIDE RECORDS SUMMARY | 2022-03-22 20:36 | XMS_ITS | Encounter Summary ---
:1945 Author Organization [facility] Address [address] [place] [address]. [place] [address] Care Team Providers Name Role Phone None, Bfp Primary Care Provider Unavailable Reason for Visit Reason Comments Diabetes Education Encounter Details Date Type Department Care Team Description 04/17/2008 [facility] Apryl Cortez Di abetes Education Health/Nurse SANDI RN Visit [address] [address] (Wo rk) Social History Tobacco Use Types [...] 93 kg (205 lb) 04/17/2008 11:00 AM TELE GROUT SEWER LINE REPAIRER Height 177.8 cm (5' 10) 04/17/2008 11:00 AM TELE GROUT SEWER LINE REPAIRER Body Mass Index 29.41 04/17/2008 11:00 AM TELE GROUT SEWER LINE REPAIRER documented in this encounter Progress Notes Apryl Cortez - 04/17/2008 2:34 PM CST SUBJECTIVE: Rita Wesley presents today for education related to Type 2 diabetes He is accompanied by spouse Occupation: Works for [employer] Shift: unsure Patient is being treated with [...] himself how to use it. 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 EXERCISE: minimal exercise: always doing something; a [...] since last visit Language(s) spoken at home: Maltese There are no active problems to display [...] attending classes. FOLLOW-UP: Follow up as needed GROUT SEWER LINE REPAIRER documented in this encounter Plan of Treatment Not on filedocumented as of this encounter Visit Diagnoses Diagnosis Type II or unspecified type diabetes cintia litus without mention of complication, uncontrolled - Primary documented in this encounter Care Teams Sea Shell Gatherer Relationship Specialty Start Date End Date None, Bfp PCP - General 06/06/99 01/21/17 documented as of this encounter
--- OUTSIDE RECORDS SUMMARY | 2022-03-22 20:36 | XMS_ITS | Encounter Summary ---
:1945 Author Organization [facility] Address [address] [place] [address] Care Team Providers Name Role Phone Unavailable Primary Care Provider Unavailable Reason for Visit Reason Comments Procedure Encounter Details Date Type Department Care Team Description 01/16/[address] 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 [address] Social History Tobacco Use Types Packs/Day Years [...]
--- OUTSIDE RECORDS SUMMARY | 2022-03-22 20:36 | XMS_ITS | Encounter Summary ---
:1945 Author Organization [facility] Address [address] [place] [address] Care Team Providers Name Role Phone Unavailable Primary Care Provider Unavailable Encounter Details Date Type Department Care Team Description 08/27/2021 Orders Only HIM DEPARTMENT Provider, Gordon funk [place] [address] Social History Tobacco Use Types Packs/Day Years [...]
--- OUTSIDE RECORDS SUMMARY | 2022-03-22 20:36 | XMS_ITS | Encounter Summary ---
:1945 Author Organization [facility] Address [address] [place] [address] Care Team Providers Name Role Phone Unavailable Primary Care Provider Unavailable Encounter Details Date Type Department Care Team Description 05/24/1989 PN Conversion Only CONCRETE PLACEMENT EQUIPMENT OPERATOR [address] [place] [address] Social History Tobacco Use Types Packs/Day Years Used Date Smoking Tobacco: Never Assessed Sex Assigned at Date Recorded Not on file documented as of this encounter Plan of Treatment Not on filedocumented as of this encounter Visit Diagnoses Not on filedocumented in this encounter
--- OUTSIDE RECORDS SUMMARY | 2022-03-22 20:36 | XMS_ITS | Clinical Summary ---
:1945 Author Organization [facility] Address [address] [place] [address]. 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 [employer] Height 177.8 cm (5' 10) 04/17/2008 11:00 AM SUPERVISOR [employer] Body Mass Index 29.41 04/17/2008 11:00 AM SUPERVISOR [employer] Plan of Treatment Health Maintenance Due Date [...] TO THIGHS), CT CHEST/ABDOMEN/PELVIS W CONTRAST LOCATION: [facility] DATE/TIME: 01/05/2022 8:46 AM INDICATION: Initial [...] TO THIGHS), CT CHEST/ABDOMEN/PELVIS W CONTRAST LOCATION: [facility] DATE/TIME: 01/05/2022 8:46 AM INDICATION: Initial [...] TO THIGHS), CT CHEST/ABDOMEN/PELVIS W CONTRAST LOCATION: [facility] DATE/TIME: 01/05/2022 8:46 AM INDICATION: Initial [...] TO THIGHS), CT CHEST/ABDOMEN/PELVIS W CONTRAST LOCATION: [facility] DATE/TIME: 01/05/2022 8:46 AM INDICATION: Initial [...] Code Phon e Number [facility] [place] [address] Lab [address] [facility] [address] Building, Room 3580 from Last 3 Months Insurance Payer Benefit Plan / Subscriber ID Effective Phone Address T ype Group Dates MEDICARE MEDICARE [id number] 2021-Prese [phone] ATTN CLAI [place] Medicare nt 40 [address] [facility] [address] BC[place] BCBS OF [place] [id number] 2018-Prese [phone] [place] [address] [place] [id number] [address] [place] [address] [place] [address] Care Teams Corporate Traffic Manager Relationship Specialty Start Date End Date Beto Anne PCP - General Family Medicine 01/05/22 [facility] [address] [place] [address]
--- OUTSIDE RECORDS SUMMARY | 2022-03-22 20:36 | XMS_ITS | Encounter Summary ---
:1945 Author Organization [facility] Address [address] [place] [address]. [place] [address] Care Team Providers Name Role Phone None, Bfp Primary Care Provider Unavailable Reason for Visit Reason Onset Date Comments Diabetes Education 06/04/2008 Encounter Details Date Type Department Care Team Description 06/04/2008 Telephone [facility] Apryl Barragan, acting instructor Education [facility] [address] [address] [place] [address] [phone] (Wo rk) Social History Tobacco Use Types [...] above. He and his are leaving for [place] shortly, to stay for several months. Will not be attending classes; doubt he will when he comes back. He is active every day, but no planned activity. He has cut down intake of regular pop; maybe once a week. Encouraged him to have a consistent bedtime snack to lower FBG. FU prn. ISION DANCER documented in this encounter Plan of Treatment Not on filedocumented as of this encounter Visit Diagnoses Not on filedocumented in this encounter Care Teams Handle Assembler Relationship Specialty Start Date End Date None, Bfp PCP - General 06/06/99 01/21/17 documented as of this encounter
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
--- OUTSIDE RECORDS SUMMARY | 2022-03-22 20:36 | XMS_ITS | Encounter Summary ---
:1945 Author Organization [facility] Address [address] [place] [address] Care Team Providers Name Role Phone Unavailable Primary Care Provider Unavailable Reason for Visit Reason Comments RESULTS, TEST Encounter Details Date Type Department Care Team Description 01/19/2022 Telephone [facility] [address] Seymour Lui MD RESULTS, TEST Ophthalmology [address] [place] [address] [place], [place] [address] [phone] Social History Tobacco Use Types Packs/Day Years [...]
--- OUTSIDE RECORDS SUMMARY | 2022-03-22 20:36 | XMS_ITS | Clinical Summary ---
:1945 Author Organization [facility] includes the [facility] Address [address] [place] [address] Care Team Providers Name Role Phone Unavailable Primary Care Provider Unavailable Source Comments You are receiving this document as you are listed as the primary care provider,follow-up provider, or the patient has been referred to you for consultation.This is in compliance with the Medicare and Medicaid EHR Incentive Program,which states Providers who transition their patient to another setting of careor provider of care or refers their patient to another provider of care shouldprovide summarycare record for each transition of care or referral. [facility] Allergies Active Allergy Reactions Severity Noted Date Comments Sulfa Antibiotics Hives High 04/11/2021 Medications Medication Sig Dispensed Refills Start Date End Date Status glipiZIDE (GLUCOTROL) 5 MG tablet 0 2020 Active lisinopril-hydroCHLOROthiazide 0 Active (PRINZIDE) 20-12.5 MG tablet dilTIAZem CD (CARDIZEM CD) 240 MG 24 0 Active hour release capsule metoprolol tartrate (LOPRESSOR) 25 0 02/26 Active MG tablet tamsulosin (FLOMAX) 0.4 MG CAPS 0 04/02/20 21 Active capsule omeprazole (PRILOSEC) 20 MG capsule 0 03/24 Active Active Problems Problem Noted Date Nuclear sclerosis of left eye 04/11/2021 Overview: Added automatically from request for phil rosalie [id number] Encounters Date Type Specialty Care Team Description 01/19/2022 Telephone Ophthalmology BreeseSeymour Grey MD RESULTS , TEST 01/16/2022 Office Visit Ophthalmology Suspected glau coma of both eyes 12/31/2021 Telephone Ophthalmology Self-Referral, Phone Call MD Lexy from Last 3 Months Immunizations Name Administration Dates Next Due Pfizer (Comirnaty) COVID-19, 12+ Yrs Purple Top 02/25/2021 Family History Medical History Relation Name Comments Cataract Father Glaucoma Father Cataract Mother Relation Name Status Comments Father Mother Social History Tobacco Use Types Packs/Day Years [...] Mass Index 27.26 08/29/2021 1:00 PM CDT Plan of Treatment Health Maintenance Due Date Last Done Comments Diabetes: Creatinine 1945 Diabetes: Foot Exam 1945 Diabetes: HGBA1C 1945 Diabetes: Lipid Panel 1945 Diabetes: Urine 1945 Microalbumin Hep C Screening (Preventive 1945 Services) Medicare Annual Wellness 1945 Visit HepB (1) 1963 DTaP/Tdap/Td (1 - Tdap) 11/01/2015 10/31/2015 COVID-19 Vaccine (2 - 03/18/2021 02/25/2021 Pfizer series) Influenza (#1) 2022 03/24/2021, 03/22/2020, 03/24/2019, Additional history exists Diabetes: Eye Exam 10/15/2022 10/15/2021, 04/02/2021 Pneumococcal 65+ Yrs Completed 06/28/2013, 09/04/2009 Zoster/Shingles Completed 11/14/2018, 09/10/2018, 10/25/2014 HepA Aged Out No longer eligib le based on patient 's age to complete this topic Hib Aged Out No longer eligib le based on patient 's age to complete this topic IPV (Polio) Aged Out No longer eligib le based on patient 's age to complete this topic MCV4 Aged Out No longer eligib le based on patient 's age to complete this topic Medical Devices Implanted Type Area Admitting Clerk Device Shelf Model / Identifier Expiration Serial / Lot Date Lens Iol Tecnis Zcb00 20.5 - [id number] DEVICE Right: Momin Med 04/14/2025 [id number] / Implanted: Qty: 1 on 09/02/2021 by Seymour Lui MD at [facility] Opt[facility] [id number] / Lens Iol Tecnis Zcb00 20.5 - [id number] DEVICE Left: Momin Med 06/30/2025 [id number] / Implanted: Qty: 1 on 09/16/2021 by Seymour Lui MD at [facility] [id number] / Insurance Payer Benefit Plan / Subscriber ID Effective Phone Address T ype Group Dates MEDICARE MEDICARE [id number] 2009-Prese [phone] ATTN CLAI [place] Medicare nt 90 [address] [place] [address] BCBS [place] MEDICARE [id number] 2018-Prese [phone] [address] [address] Medicare SUPPLEMENT A nt 64 [place] [address]
--- OUTSIDE RECORDS SUMMARY | 2022-03-22 20:36 | XMS_ITS | Encounter Summary ---
:1945 Author Organization [facility] Address [address] [place] [address] Care Team Providers Name Role Phone Unavailable Primary Care Provider Unavailable Reason for Visit Reason Comments Phone Call Encounter Details Date Type Department Care Team Description 12/31/2021 Telephone [facility] [address] Self-Referral, Patient , Phone Call Ophthalmology [address] [place] [address] [place] [address] [phone] Social History Tobacco Use Types Packs/Day Years [...]
--- OUTSIDE RECORDS SUMMARY | 2022-03-22 20:36 | XMS_ITS | Encounter Summary ---
:1945 Author Organization [facility] Address [address] [place] [address] Care Team Providers Name Role Phone Unavailable Primary Care Provider Unavailable Reason for Visit Reason Comments Post Op Exam Encounter Details Date Type Department Care Team Description 10/15/2021 Office Visit [place] [address] [address] Bilatera l pseudophakia Ophthalmology OD (Primary Dx) [address] [facility] [address] [place] [address] [place], [place] [phone] [id number] Social History Tobacco Use Types Packs/Day Years [...]
--- OUTSIDE RECORDS SUMMARY | 2022-03-22 20:36 | XMS_ITS | Encounter Summary ---
:1945 Author Organization Replaced by [facility] Address [address] [place] [address] Care Team Providers Name Role Phone Unavailable Primary Care Provider Unavailable Encounter Details Date Type Department Care Team Description 08/30/2021 Lab Visit [facility] Nuclea r sclerosis of right Laboratory eye [address] [place] [address] Social History Tobacco Use [...] Novel Coronavirus (COVID-19) (08/30/2021 11:19 AM CDT) [facility] Method Time Signature COVID-19 Not Not 08/31/2021 [facility] Interpretation Detected Detected 12:48 AM CENTRAL LAB CDT Source Nares, left 08/31/2021 [facility] and right 12:48 AM CENTRAL LAB CDT Specimen Anatomical Collection Method Collection Time Receive d Time (Source) Location / / Volume Laterality Swab (Source ENTIRE ANTERIOR Non-blood 08/30/2021 11:19 08/31/19 22 Required) NARIS / Unknown Collection / AM CDT 11:49 AM CDT Unknown Narrative [facility] - 08/31/2021 12:48 AM CDT Test performed by Senior Oracle Developer Mediated Amplification. TMA has been shown to be equivalent to commercial real-time PCR t ests. This test has been authorized by the FDA under Emergency Use Authorization (E UA) for use by authorized laboratories. Seymour Lui MD LAB_1 Performing Organization Address City/State/ZIP Code Phon e Number [facility] [address] [place] [address] documented in this encounter Visit Diagnoses Diagnosis Nuclear sclerosis of right eye documented in this encounter
--- OUTSIDE RECORDS SUMMARY | 2022-03-22 20:36 | XMS_ITS | Encounter Summary ---
:1945 Author Organization [facility] Address [address] [place] [address] Care Team Providers Name Role Phone Unavailable Primary Care Provider Unavailable Encounter Details Date Type Department Care Team Description 09/13/2021 Lab Visit [facility] Nuclea r sclerosis of left Laboratory eye [address] [place] [address] Social History Tobacco Use [...] Novel Coronavirus (COVID-19) (09/13/2021 10:55 AM CDT) [facility] Method Time Signature COVID-19 Not Not 09/14/2021 [facility] Interpretation Detected Detected 12:07 AM CENTRAL LAB CDT Source Nares, left 09/14/2021 [facility] and right 12:07 AM CENTRAL LAB CDT Specimen Anatomical Collection Method Collection Time Receive d Time (Source) Location / / Volume Laterality Swab (Source Non-blood 09/13/2021 10:55 09/13/2021 Required) Collection / AM CDT 11:[address] [facility] - 09/14/2021 12:07 AM CDT Test performed by [employer] Technician Mediated Amplification. TMA has been shown to be equivalent to commercial real-time PCR t ests. This test has been authorized by the FDA under Emergency Use Authorization (E UA) for use by authorized laboratories. Seymour Lui MD LAB_1 Performing Organization Address City/State/ZIP Code Phon e Number [facility] [address] [address] documented in this encounter Visit Diagnoses Diagnosis Nuclear sclerosis of left eye documented in this encounter
--- OUTSIDE RECORDS SUMMARY | 2022-03-22 20:36 | XMS_ITS | Encounter Summary ---
:1945 Author Organization [facility] Address [address] [place] [address] Care Team Providers Name Role Phone Unavailable Primary Care Provider Unavailable Encounter Details Date Type Department Care Team Description 04/02/2021 Orders Only Initial Department Provider, Daniella, [facility] ROBBIE LANCASTER MD [place], [place] [address] Interface provider [phone] [place] [address] Social History Tobacco Use Types Packs/Day Years [...]
--- OUTSIDE RECORDS SUMMARY | 2022-03-22 20:36 | XMS_ITS | Encounter Summary ---
:1945 Author Organization [facility] Address [address] [place] [address]. [place] [address] Care Team Providers Name Role Phone None, Bfp Primary Care Provider Unavailable Encounter Details Date Type Department Care Team Description 04/30/2005 Historic Results INTERFACED REPORT Fern [place] [address] (Wo rk) Social History Tobacco Use Types Packs/Day Years Used Date Smoking Tobacco: Never Assessed Sex Assigned at Date Recorded Not on file documented as of this encounter Plan of Treatment Not on filedocumented as of this encounter Procedures Procedure Name Priority Date/Time Associated Diagnosis Comme nts HISTOPATHOLOGY Routine 04/30/2005 12:00 AM Result s for this CUSTOMER ADVOCATE procedure are i n the results section . documented in this encounter Results Histopathology (04/30/2005 12:00 AM CUSTOMER ADVOCATE) Component Value Ref Test Analysis Performed At [facility] Range Method Time Signature Copath Report CASE: [id number] ^ [facility] Name: RITA MALONE MR#: [id number] Specimen #: [id number] Collected: 04/30/2005 Received: 04/30/2005 Reported: 05/01/2005 14:35 [...] was performed. PTP/kd /05-01-05 TESTING LAB LOCATION: [facility] [address] [place], [place] ??[address] COLLECTION SITE: Client: [facility] Location: ENDO (R) Specimen (Source) Anatomical Collection Method Collection Time Re ceived Time Location / / Volume Laterality 04/30/2005 05/01/2005 2:35 PM CUSTOMER ADVOCATE Fern Fernandez MD LAB - [facility] SPECIAL DIAG OR DERABLES Performing Organization Address City/State/ZIP Code Phon e Number [facility] documented in this encounter Visit Diagnoses Not on filedocumented in this encounter Care Teams Contracting Executive Relationship Specialty Start Date End Date None, Bfp PCP - General 06/06/99 01/21/17 documented as of this encounter
--- OUTSIDE RECORDS SUMMARY | 2022-03-22 20:36 | XMS_ITS | Encounter Summary ---
:1945 Author Organization [facility] Address [address] [place] [address] Care Team Providers Name Role Phone Unavailable Primary Care Provider Unavailable Encounter Details Date Type Department Care Team Description 09/03/2021 Office Visit [place] Seymour Lui, 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); Ophthalmology Pseudophakia [address] [facility] [address] [place] [address] [phone] Social History Tobacco Use Types Packs/Day Years Used Date Smoking Tobacco: Never Assessed Sex Assigned at Date Recorded Not on file documented as of this encounter Progress Notes Seymour Lui MD - 09/03/2021 11:00 AM CDT I reviewed the information stated in the gi technician's note for today and agree, unless [...] Will plan for topical anesthesia Refractive Goal: [place] Dilation: 7mm Flomax?: YES Malyugin Ring?: No [...]
--- OUTSIDE RECORDS SUMMARY | 2022-03-22 20:36 | XMS_ITS | Encounter Summary ---
:1945 Author Organization [facility] Address [address] [place] [address]. [place] [address] Care Team Providers Name Role Phone None, Bfp Primary Care Provider Unavailable Encounter Details Date Type Department Care Team Description 09/18/2009 Results Only INTERFACED REPORT Carrie Steven MD [address] [phone] (Wo rk) Social History [...] encounter Results COLONOSCOPY (09/18/2009 9:35 AM CDT) [facility] Method Time Signature COLONOSCOPY [facility] RAD IOLOGY RESULTS Patient Name: [...] were monitored continuously. The Colonoscope ? P-17 #[id number] was introduced through the anus and ? [...] on filedocumented in this encounter Care Teams Local Company Refrigerated Truck Driver Relationship Specialty Start Date End Date None, Bfp PCP - General 06/06/99 01/21/17 documented as of this encounter
--- OUTSIDE RECORDS SUMMARY | 2022-03-22 20:36 | XMS_ITS | Encounter Summary ---
:1945 Author Organization [facility] [place] Address [address] [place] [address]. [place] [address] Care Team Providers Name Role Phone None, Bfp Primary Care Provider Unavailable Reason for Referral - Closed Specialty Diagnoses / Procedures Referred By Contact Refer red To Contact Apryl Cortez RN [address] [place], [place] [address] Referral ID Status Reason Start Date Expiration Date Visits Requ ested Visits Authorized [id number] Closed 04/16/2008 05/23/2011 1 1 IN TECHNICIAN Encounter Details Date Type Department Care Team Description 04/16/2008 Abstract [facility] Petey Cortez, VAISHALI outside referral [facility] [address] [place] [address] (Wo rk) Social History Tobacco Use Types [...] Primary documented in this encounter Care Teams Systems Test Analyst Relationship Specialty Start Date End Date None, Bfp PCP - General 06/06/99 01/21/17 documented as of this encounter
--- OUTSIDE RECORDS SUMMARY | 2022-03-22 20:36 | XMS_ITS | Encounter Summary ---
:1945 Author Organization [facility] Address [address] [place] [address] Care Team Providers Name Role Phone Unavailable Primary Care Provider Unavailable Reason for Referral Procedure/Equipment (Routine) - Incomplete Specialty Diagnoses / Procedures Referred By Contact Refer red To Contact Diagnoses Nuclear sclerosis of right eye Seymour Lui MD Procedures Case Request OR - Ophthalmology Surgery: Cataract extraction with intraocular lens implant [address] [place], [place] [address] Referral ID Status Reason Start Date Expiration Date Visits V isits Requested Authorized [id number] Incomplete 04/11/2021 07/11/2022 1 1 ITY AUDITOR Procedure/Equipment (Routine) - Incomplete Specialty Diagnoses / Procedures Referred By Contact Refer red To Contact Diagnoses Nuclear sclerosis of left eye Seymour Lui MD Procedures Case Request OR - Ophthalmology Surgery: Cataract extraction with intraocular lens implant [address] [place], [place] [address] Referral ID Status Reason Start Date Expiration Date Visits V isits Requested Authorized [id number] Incomplete 04/11/2021 07/11/2022 1 1 ITY AUDITOR Reason for Visit Reason Comments CONSULT Encounter Details Date Type Department Care Team Description 04/11/2021 Office Visit Seymour Catalan, 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); Ophthalmology MD Nuclear sclerosis of right eye; [address] [place] [address] [place] Type 2 diabetes mellitus wit hout complication, without long-term current use of insulin (HRC); [address] Posterior vitre[place] [address] [phone] Social History Tobacco Use Types Packs/Day Years Used Date Smoking Tobacco: Never Assessed Sex Assigned at Date Recorded Not on file documented as of this encounter Progress Notes Seymour Lui MD - 04/11/2021 9:00 AM CST I reviewed the information stated in the physical science technician's note for today and agree, unless [...] Will plan for topical anesthesia Refractive Goal: [place] Dilation: 7mm Flomax?: YES Malyugin Ring?: No [...] retinopathy is present on examination -BS/BP control ITY AUDITOR documented in this encounter Plan of Treatment Not on filedocumented as of this encounter Results 2019 Novel Coronavirus (COVID-19) (09/13/2021 10:55 AM CDT) [facility] Method Time Signature COVID-19 Not Not 09/14/2021 [facility] Interpretation Detected Detected 12:07 AM CENTRAL LAB CDT Source Nares, left 09/14/2021 [facility] and right 12:07 AM CENTRAL LAB CDT Specimen Anatomical Collection Method Collection Time Receive d Time (Source) Location / / Volume Laterality Swab (Source Non-blood 09/13/2021 10:55 09/13/2021 Required) Collection / AM CDT 11:02 AM CDT Unknown Narrative [facility] CENTRAL LAB - 09/14/2021 12:07 AM CDT Test performed by Program Manager Mediated Amplification. TMA has been shown to be equivalent to commercial real-time PCR t ests. This test has been authorized by the FDA under Emergency Use Authorization (E UA) for use by authorized laboratories. Seymour Lui MD LAB_1 Performing Organization Address [facility] Phon e Number [facility] CENTRAL LAB [address] [address] 2019 Novel Coronavirus (COVID-19) (08/30/2021 11:19 AM CDT) [facility] Method Time Signature COVID-19 Not Not 08/31/2021 [facility] Interpretation Detected Detected 12:48 AM CENTRAL LAB CDT Source Nares, left 08/31/2021 [facility] and right 12:48 AM CENTRAL LAB CDT Specimen Anatomical Collection Method Collection Time Receive d Time (Source) Location / / Volume Laterality Swab (Source ENTIRE ANTERIOR Non-blood 08/30/2021 11:19 08/31/19 22 Required) [facility] / Unknown Collection / AM CDT 11:49 AM CDT Unknown Narrative [facility] CENTRAL LAB - 08/31/2021 12:48 AM CDT Test performed by Program Manager Mediated Amplification. TMA has been shown to be equivalent to commercial real-time PCR t ests. This test has been authorized by the FDA under Emergency Use Authorization (E UA) for use by authorized laboratories. Seymour Lui MD LAB_1 Performing Organization Address [facility] Code Phon e Number [facility] CENTRAL LAB [address] [address] documented in this encounter Visit Diagnoses Diagnosis Nuclear sclerosis of left eye - Primary Nuclear sclerosis of right eye Type 2 diabetes mellitus without complic ation, without long-term current use of insulin (HRC) Posterior vitreous detachment of right e ye Vitreous degeneration documented in this encounter
--- OUTSIDE RECORDS SUMMARY | 2022-03-22 20:36 | XMS_ITS | Encounter Summary ---
:1945 Author Organization [facility] Address [address] [place] [address] Care Team Providers Name Role Phone Unavailable Primary Care Provider Unavailable Reason for Visit Auth/Cert Specialty Diagnoses / Procedures Referred By Contact Refer red To Contact Diagnoses Nuclear sclerosis of right eye Procedures Cataract extraction with intraocular lens implant Referral ID Status Reason Start Date Expiration Date Visits Requ ested Visits Authorized [id number] 1 1 Encounter Details Date Type Department Care Team Description 09/02/2021 Surgery Jalyn Chambers Same Day Seymour Lui MD Cataract extraction with Surgery Center [address] [place] intraocular lens implant [address] [place] [address] [phone] (Wo rk) Social History Tobacco Use Types [...] 20.5 diopter lens SURGEON: Seymour Lui MD MANAGEMENT ANALYST: None. ANESTHESIA: Monitored Anesthesia Care with topical [...] Implant Name Type Inv. Item Serial No. Senior Java Web Application Developer Lot No. LRB No. Used Action LENS IOL TECNIS [id number] 20.5 - [id number] DEVICE LENS IOL TECNIS [id number] 20.5 [id number] [employer] Right 1 Implanted documented [...] Glucose, Whole 125 70 - 180 09/02/2021 [facility] Blood mg/dL 7:40 AM CDT LABORATORY Performing SDS MG 09/02/2021 [facility] Location 7:40 AM CDT LABORATORY Specimen Anatomical Collection Method Collection Time Receive d Time (Source) Location / / Volume Laterality Blood 09/02/2021 7:38 AM 7:40 CDT AM CDT Seymour Lui MD LAB_1 Performing Organization Address City/State/ZIP Code Phon e Number [facility] [address] [facility] [phone] documented in this encounter Visit Diagnoses Diagnosis Nuclear sclerosis of left eye - Primary Nuclear sclerosis of right eye Plan of Care - Iris Nair RN - 08/29/2021 2:17 PM CDT PPA call completed by calling [phone] spoke to patient. Advised of arrival time [...] (SUBLIMAZE) injection 25-50 mcg 25-50 mcg, Intravenous, [id number], Pain, Procedure, Starting on Wed09/02/21 at 0722, [...] (DEMEROL) injection 12.5 mg 12.5 mg, Intravenous, [id number], Shiverin g, Starting on Wed09/02/21 at 0708, Until Wed09/02/21 at 1100, For 2 doses, Maximu m cumulative dose is 25 mg. Do not give to patients receiving MAO inhibitors (e.g. phenelzine (NA RDIL), tranylcypromine (PARNATE), selegiline (ELDEPRYL))., PACU/Recovery midazolam (VERSED) injection 1-2 mg 1-2 mg, Intravenous, [id number], Sedation, Anxiety, Proc edure, Starting on Wed09/02/21 [...] (SUBLIMAZE) injection 25-50 mcg 25-50 mcg, Intravenous, [id number], Pain, Procedure, Starting on Wed09/02/21 at 0722, Until Wed09/02/21 at 1100, For 2 doses, As directed by anesthesiologist, Pre-op lidocaine PF (XYLOCAINE) 1 % injection 0.1-0.3 mL 0.1-0.3 mL, Subcutaneous, PRN, Other, fo r IV insertion, Starting on Wed09/02/21 at 0721, For 1 day, Lidocaine to be used for IV starts unless patient refuses., Pre-op meperidine (DEMEROL) injection 12.5 mg 12.5 mg, Intravenous, [id number], Shiverin g, Starting on Wed09/02/21 at 0708, Until Wed09/02/21 at 1100, For 2 doses, Maximum cumulative dose is 25 mg. Do not give to patients receiving MAO inhibitors (e. g. phenelzine (NARDIL), tranylcypromine (PARNATE), selegiline (ELDEPRYL))., PACU/Recovery midazolam (VERSED) injection 1-2 mg 1-2 mg, Intravenous, [id number], Sedation, Anxiety, Procedure, Starting on Wed09/02/21 at [...]
--- OUTSIDE RECORDS SUMMARY | 2022-03-22 20:36 | XMS_ITS | Encounter Summary ---
:1945 Author Organization [facility] Address [address] [place] [address]. [place] [address] Care Team Providers Name Role Phone Beto [...] Lopez MD Procedures CT Chest/Abdomen/Pelvis w Contrast [facility] [address] [place] [address] Referral ID Status Reason Start Date Expiration Date Visits V isits Requested Authorized [id number] Pending 01/05/2022 01/05/2023 1 1 Review iagnostic [...] to Thighs) PET Oncology (Eyes to Thighs) [facility] [address] Iliana Fink [phone] [address] [place] [address] Referral ID Status Reason Start Date Expiration Date Visits Requ ested Visits Authorized [id number] Closed 01/01/2022 01/01/2023 1 1 Reason for [...] to Thighs) PET Oncology (Eyes to Thighs) [facility] [address] Iliana Fink [phone] [address] [place] [address] Referral ID Status Reason Start Date Expiration Date Visits Requ ested Visits Authorized [id number] Closed 01/01/2022 01/01/2023 1 1 Encounter Details Date Type Department Care Team Description 01/05/2022 Hospital Encounter [facility] Gio Lopez ndnaila malignant neoplasm of right lung (H); [facility] MD Lamine Renal cell carcinoma, right (H); [address] [place] [facility] Secondary malignant neoplasm of lung (H) ; CAROL Fink [address] Adenocarcinom a, renal cell (H) [phone] [place] [address] Social History Tobacco Use Types [...] TO THIGHS), CT CHEST/ABDOMEN/PELVIS W CONTRAST LOCATION: [facility] DATE/TIME: 01/05/2022 8:46 AM INDICATION: Initial [...] TO THIGHS), CT CHEST/ABDOMEN/PELVIS W CONTRAST LOCATION: [facility] DATE/TIME: 01/05/2022 8:46 AM INDICATION: Initial [...] TO THIGHS), CT CHEST/ABDOMEN/PELVIS W CONTRAST LOCATION: [facility] DATE/TIME: 01/05/2022 8:46 AM INDICATION: Initial [...] of L4 over L5 Procedure Note Aguilar Rainse MD - 01/05/2022For matting of this note might be different from the original. EXAM: PET ONCOLOGY (EYES TO THIGHS), CT CHEST/ABDOMEN/PELVIS W CONTRAST LOCATION: [facility] DATE/TIME: 01/05/2022 8:46 AM INDICATION: Initial [...] Code Phon e Number [facility] [place] [address] Lab [address] [facility] J [facility], Room 3580 documented in this encounter Visit [...] dose documented in this encounter Care Teams Director Agency & Strategic Partnerships Relationship Specialty Start Date End Date Beto Anne PCP - General Family Medicine 01/05/22 [facility] [address] [address] documented as of this encounter
--- OUTSIDE RECORDS SUMMARY | 2022-03-22 20:36 | XMS_ITS | Clinical Summary ---
:1945 Author Organization [employer] [facility] [facility] [place] [address] Care Team Providers Name Role Phone Beto [...] 24 hr daily. Further capsuleIndications: refills at [facility] Heart palpitations appt metoprolol tartrate Take 1 [...] s are released immediately into your [facility] medical record. ??You may view this report [...] provider. If you have questions, please contact [facility] health care provider. INDICATION: Lung biopsy COMPARISON: [...] [facility] Versed (Midazolam)1 mg IV. ?? Fentanyl ? 25 m cg IV. Lidocaine for local anesthesia. ?? SPECIMEN(S): CORES ?? COMPLICATIONS: no complications noted ?? DRAINS: ??None ? ESTIMATED BLOOD LOSS: ??Less than 10 cc. ?? PHYSICIAN(S) AND ASSISTANTS (if any): ?? Adal Ramachandran MD ?? Additional Comments: ? Please call with questions. Adal Ramachandran MD ?? [place] Protocol ?? A. Pre-procedure verification complete y [...] precautions. Michael Arguelles MD CT [facility] Cytology SUPERINTENDENT COMPRESSOR STATIONS (01/19/2022 12:10 PM CDT)Only the most recent of2 resultswithin the time period is included. Component Value Ref Test Analysis Performed Pathologis t Range Method Time At Signature Case Report Medical Cytology Report ? Case: [id number] ? [facility] Authorizing Provider: ??Adal Ramachandran MD ?? Collected: ? 01/19/2022 1210 ? 2 3:16 PM HEALTH Ordering Location: ? [facility] ?Received: ?01/19/2022 1256 ? CDT [facility]- [...] HEALTH A PET/CT scan dated July from [facility] describes a right renal mass measuring 9.7 [...] situ hybridization tests that were performed by [employer] and whose performance characteristics were evaluat ed [...] laboratory testing. Additional Cytology is screened at [facility], Central Laboratory - [address], [place] [address] and [facility] - [address], [place] [address] [address] [facility] - [address] [place] [address] 2 3:16 PM HEALTH CDT LABORATORY- Interpreted at [facility], Central Laboratory - [address], [place] [address] CENTRAL LABORATORY Specimen Anatomical Collection Method Collection Time Receive d Time (Source) Location / / Volume Laterality Aspirate SPECIMEN FROM LUNG 01/19/2022 12:10 01/19 / Unknown PM CDT 12:56 PM CDT Adal Ramachandran MD PATHOLOGY/CYTOLOGY Performing Organization Address City/State/ZIP Code Phon e Number [facility] [address] [place] [address] LABORATORY-CENTRAL 2000 LABORATORY Protime-INR (01/07/2022 10:36 AM CDT) P athologist Signature INR 1.1 <1.3 01/07/2022 [facility] 10:58 AM CDT LABORATORY-CENTR AL LABORATORY PROTIME 13.4 12.0 - 13.8 01/07/2022 [facility] sec 10:58 AM CDT LABORATORY-CENTR AL LABORATORY Specimen Anatomical Collection Method / Collection Time Recei sandra Time (Source) Location / Volume Laterality Blood BLOOD SPECIMEN / Venipuncture / 01/07/2022 10:36 01/07 Unknown Unknown AM CDT 10:44 AM CDT Narrative [facility] LABORATORY-CENTRAL LABORAT ORY - 01/07/2022 10:58 AM [...] Organization Address City/State/ZIP Code Phon e Number [facility] [address] [place] [address] LABORATORY-CENTRAL 2000 LABORATORY from Last 3 Months Insurance Payer Benefit Plan / Subscriber ID Effective Dates Phone Addre ss Type Group MEDICARE - PB MEDICARE PB [id number] 2020-Presen ATTN : CLAIMS USE ONLY ONLY t [address] [place] [address] MEDICARE PART B MEDICARE PART B [id number] 2009-Presen ATTN: CLAIMS - HB USE ONLY HB ONLY t [address] [place] [address] MEDICARE PART A MEDICARE PART A [id number] 2009-Presen ATTN: CLAIMS - HB USE ONLY HB ONLY t [address] [place] [address] BLUE CROSS BLUE CROSS OF [id number] 2018-Presen [address] [facility] [place] [address] Care Teams Optometric Technologist Relationship Specialty Start Date End Date Beto Anne MD PCP - General Family Practice 12/29/21 [address] [place] [address]
--- OUTSIDE RECORDS SUMMARY | 2022-03-22 20:37 | XMS_ITS | Encounter Summary ---
:1945 Author Organization [facility] Address [address] [place] [address] Care Team Providers Name Role Phone Unavailable [...] Visit Dermatology Mark Bryant M.D. [address] [place], [place] [phone] (Wo rk) documented as [...]
--- OUTSIDE RECORDS SUMMARY | 2022-03-22 20:37 | XMS_ITS | Encounter Summary ---
:1945 Author Organization [facility] Address [address] [place] [address] Care Team Providers Name Role Phone Unavailable [...] Visit Dermatology Mark Bryant M.D. [address] [place], [place] [phone] (Wo rk) documented as [...]
--- OUTSIDE RECORDS SUMMARY | 2022-03-22 20:37 | XMS_ITS | Encounter Summary ---
:1945 Author Organization [facility] Address [address] [place] [address] Care Team Providers Name Role Phone Unavailable [...] Visit Dermatology Mark Bryant M.D. [address] [place], [place] [phone] (Wo rk) documented as of this encounter Visit Diagnoses Not on filedocumented in this encounter
--- OUTSIDE RECORDS SUMMARY | 2022-03-22 20:37 | XMS_ITS | Encounter Summary ---
:1945 Author Organization [facility] Address [address] [place] [address] Care Team Providers Name Role Phone Unavailable Primary Care Provider Unavailable Reason for Visit Reason Comments Biopsy Encounter Details Date Type Department Care Team Description 12/21/2017 Procedure visit Department of Mark Bryant Tumor Skin Uncertain Behavior (Primary Dx); Dermatology in Michael Saleh M.D. [address] [phone] Social History Tobacco Use Types Packs/Day Years [...] the patient by letter. Patient given pamphlet [id number]. #2 Right scapula: Rule out atypical nevus [...] the patient by letter. Patient given pamphlet [id number]. #3 Right lower back (right lateral back [...] the patient by letter. Patient given pamphlet [id number]. PATIENT EDUCATION Ready to learn. No apparent [...] 05/05/2022 Office Visit Dermatology Mark Bryant M.D. [address] [place] [phone] (Wo rk) documented as of this encounter Procedures Procedure Name Priority Date/Time Associated Comments Diagnosis DERMATOPATHOLOGY CONSULT Routine 12/21/2017 9:51 Tumor Skin Results for this AM CDT Uncertain Behavior procedure are in the results section. documented in this encounter Results Dermatopathology Consult (12/21/2017 9:51 AM CDT) Component Value Ref Test Analysis Performed At [facility] [place] Method Time Signature Gross A: ??Received in formalin labeled with the patient's name, 12/28/2017 [facility] Description: medical record number, and right lateral back superio r is 5:13 PM LABORATORIES - a 0.7 x 0.6 cm pale cronin ovoid skin punch biopsy, excised t o [facility] depth of 0.4 cm. ??There is a [...] by AJJigna. Participated in Diana Lau 12/28/2017 [place] DANITZA Singer D.OHeather-Pathology 5:13 PM LABORATORIES - Interpretation Fellow [facility] Report Comfort Haji D.O. 12/28/2017 [place] Roseann IRVIN electronically Parts A, B and C seen in consultation with: 5:13 PM LABORATORIES - signed by Raul Arriola M.D. CDT [facility] 12/28/2017 [facility] 5:13 PM LABORATORIES - CDT [facility] Disclaimer This test was developed and its performance characteri stics 12/28/2017 [facility] determined by [facility] in a manner consistent with CLIA 5:13 PM LABORATORIES - requirements. This test has not been cleared or approved b y CDT [facility] the U.S. Food and Drug Administration. CAMPUS Interpetation FINAL DIAGNOSIS 12/28/2017 [facility] IC A. ??DermPath Consult Wet Tissue; Right lateral back 5:13 PM LABORATORIES - superior, Skin punch biopsy: ??Compound nevus with moderat e CDT [facility] atypia, peripheral borders appear free of involvement [...] Organization Address City/State/ZIP Code Phon e Number [facility] LABORATORIES - [address] [place], [place] [address] [facility] documented in this encounter [...]
--- OUTSIDE RECORDS SUMMARY | 2022-03-22 20:37 | XMS_ITS | Encounter Summary ---
:1945 Author Organization [facility] Address [address] [place] [address] Care Team Providers Name Role Phone Unavailable Primary Care Provider Unavailable Reason for Visit Reason Comments Skin Check Encounter Details Date Type Department Care Team Description 04/04/2018 Office Visit Department of Mark Bryant, Erica holbrook (Primary Dx); Dermatology in Michael Meredith Keratosis [address] [phone] Social History Tobacco Use Types Packs/Day Years [...] Mark Bryant M.D. . 04/04/2018. 11:04 AM. 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 [address] [place], [place] [phone] (Wo rk) documented as of this encounter Visit Diagnoses Diagnosis Nevi Multiple - Primary Keratosis Seborrheic documented in this encounter
--- OUTSIDE RECORDS SUMMARY | 2022-03-22 20:37 | XMS_ITS | Encounter Summary ---
:1945 Author Organization [facility] Address [address] [place] [address] Care Team Providers Name Role Phone Unavailable [...] Visit Dermatology Mark Bryant M.D. [address] [place], [place] [phone] (Wo rk) documented as [...]
--- OUTSIDE RECORDS SUMMARY | 2022-03-22 20:37 | XMS_ITS | Encounter Summary ---
:1945 Author Organization [facility] Address [address] [place] [address] Care Team Providers Name Role Phone Unavailable [...] Visit Dermatology Mark Bryant M.D. [address] [place], [place] [phone] (Wo rk) documented as [...]
--- OUTSIDE RECORDS SUMMARY | 2022-03-22 20:37 | XMS_ITS | Encounter Summary ---
:1945 Author Organization [facility] Address [address] [place] [address] Care Team Providers Name Role Phone Unavailable Primary Care Provider Unavailable Reason for Visit Reason Comments Lesion Right upper parietal scalp Appointment Request (Routine) - Closed Specialty Diagnoses / Procedures Referred By Contact Refer red To Contact Dermatology Referral ID Status Reason Start Date Expiration Date Visits Requ ested Visits Authorized [id number] Closed 02/12/2020 02/11/2021 1 1 Encounter Details Date Type Department Care Team Description 05/06/2020 Office Visit Department of Mark Bryant, Johanna Blue (Primary Dermatology in Michael Meredith Dx) [place], [place] [address] [phone] Social History Tobacco Use Types Packs/Day Years [...] accurate and complete. Mark Bryant M.D. 05/06. OSAL ANALYST documented in this encounter Plan of Treatment Upcoming Encounters Date Type Specialty Care Team Description 05/05/2022 Office Visit Dermatology Mark Bryant M.D. [address] [place] [phone] (Wo rk) documented as of this encounter Visit Diagnoses Diagnosis Nevus Blue - Primary documented in this encounter
--- OUTSIDE RECORDS SUMMARY | 2022-03-22 20:37 | XMS_ITS | Encounter Summary ---
:1945 Author Organization [facility] Address [address] [place] [address] Care Team Providers Name Role Phone Unavailable Primary Care Provider Unavailable Encounter Details Date Type Department Care Team Description 01/20/2018 Procedure visit Department of Simon, Benjius Atypi ninoska (Primary Dx); Dermatology in [facility] Yoselin, Lesion Skin Chest [place], [place] Viri, M.S. [address] [place] [address] Social History Tobacco Use Types Packs/Day Years [...] of Surgery: 01/20/2018 Surgeon: Dr. Rayray Hein Christian Education Director: Dr. Rachael Lares and Dr. Bernie Concepcion Location: [facility]: Floor:16 Room:[facility] Visit Type: Outpatient PostOp Diagnosis: Lentiginous junctional [...] Concepcion Patient seen and discussed with supervising banking consultant, Dr. Hein, who evaluated the patient [...] His past medical history is positive for odd-bmvmbfp-xdzbhjmpj diabetes. The patient denies history of heart [...] Office Visit Dermatology Mark Bryant M.D. [address] [place] [phone] (Wo ) Scheduled Orders Name Type [...] Component Value Ref Test Analysis Performed At [facility] Range Method Time Signature Gross Description A: ?? Received in formalin labeled with the patie nt's name, 01/26/2018 [facility] medical record number, and right lower chest is a 0.6 x 4:24 PM LABORATORIES - 0.5 cm cronin-white skin punch biopsy, excised to a depth of T [facility] 0.7 cm. ??There is a 0.4 [...] closest margin. ??The margins are inked black. ??Surgical Assist sections are submitted as follows: ??B1: ??Tips B2-3: Lesion Report Soledad I. 01/26/2018 [facility] electronically Viri Hargrove 4:24 PM LABORATORIE S - signed by [facility] 01/26/2018 [facility] 4:24 PM LABORATORIES - T [facility] Interpretation FINAL DIAGNOSIS 01/26/2018 [facility] A. ??Right lower chest, Skin punch biopsy: ??Compound nevu s 4:24 PM LABORATORIES - COMMENT [facility] Clinical photo reviewed. [facility]PU S B. ??Right scapular, Skin excision: ??Re-excision of atypica l junctional nevus ([id number], accession date 12/21/2017), no residual nevus identified in the sections examined Specimen (Source) Anatomical Collection Method Collection Time Re ceived Time Location / / Volume Laterality Skin (Right lower 01/20/2018 2:23 PM chest) CDT Narrative This result has an attachment that is no t available. Bernie Concepcion M.D., Ph.D. LAB PATH DERM ORDERABLES Performing Organization Address City/State/ZIP Code Phon e Number [facility] LABORATORIES - [address] [place], [place] [address] [facility] documented in this encounter Visit [...]
--- OUTSIDE RECORDS SUMMARY | 2022-03-22 20:37 | XMS_ITS | Encounter Summary ---
:1945 Author Organization [facility] Address [address] [place] [address] Care Team Providers Name Role Phone Unavailable [...] Visit Dermatology Mark Bryant M.D. [address] [place], [place] [phone] (Wo rk) documented as [...]
--- OUTSIDE RECORDS SUMMARY | 2022-03-22 20:37 | XMS_ITS | Encounter Summary ---
:1945 Author Organization [facility] Address [address] [place] [address] Care Team Providers Name Role Phone Unavailable [...] Visit Dermatology Mark Bryant M.D. [address] [place], [place] [phone] (Wo rk) documented as [...]
--- OUTSIDE RECORDS SUMMARY | 2022-03-22 20:37 | XMS_ITS | Encounter Summary ---
:1945 Author Organization [facility] Address [address] [place] [address] Care Team Providers Name Role Phone Unavailable Primary Care Provider Unavailable Reason for Referral Outpatient (Routine) - Closed Specialty Diagnoses / Procedures Referred By Contact Refer red To Contact Dermatology Mark Bryant M.D . [facility] Region [address] [place] [address] Referral ID Status Reason Start Date Expiration Date Visits Requ ested Visits Authorized [id number] Closed 02/17/2021 02/17/2022 1 1 Scheduling Instructions Recheck few nevi in 3 months Reason for Visit Reason Comments Skin Check Appointment Request (Routine) - Closed Specialty Diagnoses / Procedures Referred By Contact Refer red To Contact Dermatology Referral ID Status Reason Start Date Expiration Date Visits Requ ested Visits Authorized [id number] Closed 10/08/2020 10/08/2021 1 1 Encounter Details Date Type Department Care Team Description 02/17/2021 Office Visit Department of Mark Bryant Nevi Multi ple (Primary Dx); Dermatology in [place] [place], [place] [address] [place] [phone] Social History Tobacco Use Types Packs/Day Years [...] re-excision on 01/20/[address] Hein at [facility]. We are following a blue nevus involving the right upper parietal scalp. He uses sunscreen. He denies any new or changing lesions today. MEDICAL HISTORY 1. Negative for skin cancer 2. Right scapula: History of severely atypical nevus, status post re-excision on 01/20/[address] Hein at [facility] FAMILY HISTORY Negative for melanoma OBJECTIVE PHYSICAL [...] re-excision on 01/20/[address] Hein at [facility], no recurrence No clinical evidence of local [...] Visit Dermatology Mark Bryant M.D. [address] [place], [place] [phone] (Wo rk) Scheduled Referrals Name Type Priority Associated Order Schedule Diagnoses Dermatology office Outpatient Referral Routine Ex pected: visit (clinic) 05/19/2021 (Approximate), Expires: 02/18/2024 documented as of this encounter Visit Diagnoses Diagnosis Nevi Multiple - Primary Keratosis Seborrheic documented in this encounter
--- OUTSIDE RECORDS SUMMARY | 2022-03-22 20:37 | XMS_ITS | Encounter Summary ---
:1945 Author Organization [facility] Address [address] [place] [address] Care Team Providers Name Role Phone Unavailable Primary Care Provider Unavailable Reason for Referral Outpatient (Routine) - Closed Specialty Diagnoses / Procedures Referred By Contact Refer red To Contact Dermatology Diagnoses Nevi Multiple Mark Bryant M.D. [facility] Procedures Dermatology misc minor procedure [address] [place] [phone] Referral ID Status Reason Start Date Expiration Date Visits Requ ested Visits Authorized [id number] Closed 02/02/2022 02/02/2023 1 1 Reason for Visit Reason Comments Nevus recheck Outpatient (Routine) - Closed Specialty Diagnoses / Procedures Referred By Contact Refer red To Contact Dermatology Mark Bryant M.D . [facility] Region [address] [place], [place] [phone] Referral ID Status Reason Start Date Expiration Date Visits Requ ested Visits Authorized [id number] Closed 10/21/2021 10/21/2022 1 1 Encounter Details Date Type Department Care Team Description 02/02/2022 Office Visit Department of Mark Bryant Nevi Multi ple (Primary Dx); Dermatology in [place], [place] [address] [phone] Social History Tobacco Use Types Packs/Day [...] flank. The patient was last seen by [facility] on 10/21/21. He has a history of a severely atypical mole involving the right scapula, status post re-excision on 01/20/[address] Hein at [facility]. He denies a personal history of [...] re-excision on 01/20/[address] Hein at [facility] 3. Type II diabetes mellitus 4. [...] Visit Dermatology Mark Bryant M.D. [address] [place], [place] [phone] (Wo rk) Scheduled Orders Name Type Priority Associated Diagnoses Order S chedule Dermatology misc minor Dermatology Routine Nevi Multiple Expe cted: procedure 02/03/2022, Exp ires: 05/04/2023 documented as of this encounter Visit Diagnoses Diagnosis Nevi Multiple - Primary Keratosis Seborrheic documented in this encounter
--- OUTSIDE RECORDS SUMMARY | 2022-03-22 20:37 | XMS_ITS | Encounter Summary ---
:1945 Author Organization [facility] Address [address] [place] [address] Care Team Providers Name Role Phone Unavailable [...] Visit Dermatology Mark Bryant M.D. [address] [place], [place] [phone] (Wo rk) documented as [...]
--- OUTSIDE RECORDS SUMMARY | 2022-03-22 20:37 | XMS_ITS | Encounter Summary ---
:1945 Author Organization [facility] Address [address] [place] [address] Care Team Providers Name Role Phone Unavailable [...] Visit Dermatology Mark Bryant M.D. [address] [place], [place] [phone] (Wo rk) documented as [...]
--- OUTSIDE RECORDS SUMMARY | 2022-03-22 20:37 | XMS_ITS | Encounter Summary ---
:1945 Author Organization [facility] Address [address] [place] [address] Care Team Providers Name Role Phone Unavailable [...] Visit Dermatology Mark Bryant M.D. [address] [place], [place] [phone] (Wo rk) documented as [...]
--- OUTSIDE RECORDS SUMMARY | 2022-03-22 20:37 | XMS_ITS | Encounter Summary ---
:[address] [facility] Address [address] [place] [address] Care Team Providers Name Role Phone Unavailable [...] Visit Dermatology Mark Bryant M.D. [address] [place], [place] [phone] (Wo rk) documented as [...]
--- OUTSIDE RECORDS SUMMARY | 2022-03-22 20:37 | XMS_ITS | Encounter Summary ---
:1945 Author Organization [facility] Address [address] [place] [address] Care Team Providers Name Role Phone Unavailable Primary Care Provider Unavailable Reason for Visit Reason Comments Follow-up Outpatient (Routine) - Closed Specialty Diagnoses / Procedures Referred By Contact Refer red To Contact Dermatology Mark Bryant M.D . [facility] Region [address] [place] [phone] Referral ID Status Reason Start Date Expiration Date Visits Requ ested Visits Authorized [id number] Closed 02/17/2021 02/17/2022 1 1 Encounter Details Date Type Department Care Team Description 05/12/2021 Office Visit Department of Mark Bryant, Tumor Skin Uncertain Behavior (Primary Dx); Dermatology in [place] Vir[place], [place] [address] [place] [phone] Social History Tobacco Use Types Packs/Day [...] 01/20/[address] Hein at [facility]. He denies a personal history of [...] care physician. He will be traveling down [facility] tomorrow and will be there for 4 [...] the patient by letter. Patient given pamphlet [id number]. Discussed the risks, benefits, alternatives, and the [...] of the stated lesion(s) after returning from [place]. He will call and schedule an appointment [...] Electronically Signed: betsy Montes. 05/06/2021. 12:30 PM VP [employer] [facility]ELOP[employer]. Mark Uriostegui M.D., personally performed the services described in this documentation. All medical record entries made by the scribe were at my direction and in my presence. I have reviewed the chart and discharge instructions (if applicable) and agree that the record reflects my personal performance and is accurate and complete. Mark Bryant M.D. [facility]OP[facility] documented in this encounter Miscellaneous Notes Result Encounter Note - Mark Bryant M.D. - 05/20/2021 1:57 PM CST A. Right upper superior paraspinal back,A : Benign lesion letter. Michael Lopez patient. Please send letter BUSINESS DEVELOPMENT Result Encounter Note - Mark Bryant M.D. - 05/20/2021 1:56 PM CST Right upper superior paraspinal back, A : Benign lesion letter. Michael Lopez patient. Please send letter BUSINESS DEVELOPMENT documented in this encounter Plan of Treatment Upcoming Encounters Date Type Specialty Care Team Description 05/05/2022 Office Visit Dermatology Mark Bryant M.D. [address] [place] [phone] (Wo rk) documented as of this encounter Procedures Procedure Name Priority Date/Time Associated Comments Diagnosis DERMATOPATHOLOGY CONSULT Routine 05/12/2021 11:05 Tumor Skin Results for this AM VP [employer] Uncertain Behavior procedure are in the results section. documented in this encounter Results Dermatopathology Consult (05/12/2021 11:05 AM VP [employer] [facility]) Component Value Ref Test Analysis Performed Pathologis t Range Method Time At Signature 05/20/2021 PDRM 12:27 PM VP BUSINESS DEVELOPMENT Report Grecia Rothman, 05/20/2021 PDRM electronically MKatie 12:27 PM signed by DENNISE Gross Received in formalin labeled with the patient's name, 05/20/2021 PDRM Description: medical record number, and right upper paraspinal lynda k, A 12:27 PM is a 0.4 cm in diameter pale cronin skin punch biopsy excised VP [employer]ELOPMENT to a depth of 0.4 cm. ??Eccentrically located on the skin surface is a 0.2 x 0.2 cm brown, hyperpigmented lesion with well-circumscribed borders. ??The specimen is bisected and submitted entirely in cassette A1. ??Grossed by Interpetation FINAL DIAGNOSIS 05/20/2021 PDRM A. ??DermPath Consult Wet Tissue; Right upper superior 12:27 PM paraspinal back, A, Skin punch biopsy: ??Lentiginous VP [employer]ELOPMENT junctional nevus with superficial dermal melanophages and inflammation COMMENT Photos obtained 02/17/2021 and clinical note of 05/12/2021 were reviewed. ??Multiple tissue levels were examined. Melan A stain highlights the melanocytic proliferation. Specimen Anatomical Collection Method Collection Time Receive d Time (Source) Location / / Volume Laterality Tissue 05/12/2021 11:05 05/13/2021 AM VP [facility]EL[facility]MENT 11:58 AM VP [facility]ELOPMENT Narrative This result has an attachment that is no t available. Mark Bryant M.D. LAB PATH DERM ORDERABLES Performing Organization Address City/State/ZIP Code Phon e Number [facility] - [address] [place], [place] [address] [facility] [place] [address] Laboratories-[facility] [address] documented in this encounter Visit Diagnoses Diagnosis Tumor Skin Uncertain Behavior - Primary Nevi Multiple documented in this encounter
--- OUTSIDE RECORDS SUMMARY | 2022-03-22 20:37 | XMS_ITS | Encounter Summary ---
:1945 Author Organization [facility] Address [address] [place] [address] Care Team Providers Name Role Phone Unavailable Primary Care Provider Unavailable Encounter Details Date Type Department Care Team Description 01/06/2018 Clinical Communication Department of Mark Bryant, Dermatology in [place], [place] [address] [facility] [address] [place] [phone] Social History Tobacco Use Types Packs/Day Years [...] tomorrow and have me paged. Job ID: [id number] documented in this encounter Plan of Treatment Upcoming Encounters Date Type Specialty Care Team Description 05/05/2022 Office Visit Dermatology Mark Bryant M.D. [address] [place] [phone] (Wo rk) documented as of this encounter Visit Diagnoses Not on filedocumented in this encounter
--- OUTSIDE RECORDS SUMMARY | 2022-03-22 20:37 | XMS_ITS | Encounter Summary ---
:1945 Author Organization [facility] Address [address] [place] [address] Care Team Providers Name Role Phone Unavailable [...] Visit Dermatology Mark Bryant M.D. [address] [place], [place] [phone] (Wo rk) documented as [...]
--- OUTSIDE RECORDS SUMMARY | 2022-03-22 20:37 | XMS_ITS | Encounter Summary ---
:1945 Author Organization [facility] Address [address] [place] [address] Care Team Providers Name Role Phone Unavailable [...] Visit Dermatology Mark Bryant M.D. [address] [place], [place] [phone] (Wo rk) documented as [...]
--- OUTSIDE RECORDS SUMMARY | 2022-03-22 20:37 | XMS_ITS | Clinical Summary ---
:1945 Author Organization [facility] Address [address] [place] [address] Care Team Providers Name Role Phone Unavailable Primary Care Provider Unavailable Source Comments Patient records contain information from all sites at [facility]. For routine questions regarding patient records, call [phone] during business hours, M-F 8:00 AM - 5:00 PM Central Time. Record requests for emergency care only can be directed to [phone] at any time.[facility] Allergies Active Allergy Reactions Severity Noted Date [...] Visit Dermatology Mark Bryant M.D. [address] [place] [phone] (Wo rk) Health Maintenance Due Date [...] Organization Address City/State/ZIP Code Phon e Number [facility] Dermatopathology (02/03/2022 8:13 AM CDT) Component [...] LAB PATH DERM ORDERABLES Performing Organization Address City/State/RUST Code Phon e Number [facility]- [address] [place] [phone] [facility] [place] [address] System in [address] from Last 3 Months Insurance Payer Benefit Plan Subscriber ID Effective Phone Address Typ e / Group Dates MEDICARE MEDICARE A [id number] 2009-Prese [address] [place] [address] [facility] [id number] 2018-Prese [phone] [address] Indemnity [employer] A nt 000 [address] [place] [address]
--- OUTSIDE RECORDS SUMMARY | 2022-03-22 20:37 | XMS_ITS | Encounter Summary ---
:1945 Author Organization [facility] Address [address] [place] [address] Care Team Providers Name Role Phone Unavailable Primary Care Provider Unavailable Reason for Referral Outpatient (Routine) - Authorized Specialty Diagnoses / Procedures Referred By Contact Refer red To Contact Dermatology Mark Bryant M.D . [facility] Region [address] [place], [place] [phone] Referral ID Status Reason Start Date Expiration Date Visits V isits Requested Authorized [id number] Authorized 02/03/2022 02/02/2025 1 1 Scheduling Instructions Recheck right ear lesion in 3 months Reason for Visit Reason Comments Biopsy Outpatient (Routine) - Closed Specialty Diagnoses / Procedures Referred By Contact Refer red To Contact Dermatology Diagnoses Nevi Multiple Mark Bryant M.D. [facility] Procedures Dermatology misc minor procedure [address] [place] [phone] Referral ID Status Reason Start Date Expiration Date Visits Requ ested Visits Authorized [id number] Closed 02/02/2022 02/02/2023 1 1 Encounter Details Date Type Department Care Team Description 02/03/2022 Procedure visit Department of Mark Bryant ple; Dermatology in Michael Saleh M.D. Tumor Skin Uncertain Behavior [place], [place] [address] [phone] Social History Tobacco Use Types Packs/Day [...] on 01/20/[address] Hein at [facility]. He denies a personal history of skin [...] on 01/20/[address] Hein at [facility] 3. Type II diabetes mellitus FAMILY HISTORY [...] the patient by letter. Patient given pamphlet [id number]. Discussed the risks, benefits, alternatives, and the [...] Miscellaneous Notes Result Encounter Note - Mark Bryatn M.D. - 02/10/2022 12:04 PM CDT A. Right lower flank: Atypical nevus already treated letter B. Right lateral lower back: Atypical nevus already treated letter [place] patient. Please send letter documented in this encounter Plan of Treatment Upcoming Encounters Date Type Specialty Care Team Description 05/05/2022 Office Visit Dermatology Mark Bryant M.D. [address] [place], [place] [phone] (Wo rk) Scheduled Referrals [...] Organization Address City/State/ZIP Code Phon e Number [facility]- [address] [place] [phone] [facility] [place] [address] System [address] documented in this encounter Visit Diagnoses Diagnosis Nevi Multiple Tumor Skin Uncertain Behavior documented in this encounter
--- OUTSIDE RECORDS SUMMARY | 2022-03-22 20:37 | XMS_ITS | Encounter Summary ---
:1945 Author Organization [facility] Address [address] [place] [address] Care Team Providers Name Role Phone Unavailable [...] Visit Dermatology Mark Bryant M.D. [address] [place], [place] [phone] (Wo rk) documented as [...]
--- OUTSIDE RECORDS SUMMARY | 2022-03-22 20:37 | XMS_ITS | Encounter Summary ---
:1945 Author Organization [facility] Address [address] [place] [address] Care Team Providers Name Role Phone Unavailable Primary Care Provider Unavailable Reason for Referral Outpatient (Routine) - Closed Specialty Diagnoses / Procedures Referred By Contact Refer red To Contact Dermatology Mark Bryant M.D . [facility] Region [address] [place] [address] Referral ID Status Reason Start Date Expiration Date Visits Requ ested Visits Authorized [id number] Closed 10/21/2021 10/21/2022 1 1 Scheduling Instructions Recheck nevi in 3 months Reason for Visit Appointment Request (Routine) - Closed Specialty Diagnoses / Procedures Referred By Contact Refer red To Contact Dermatology Referral ID Status Reason Start Date Expiration Date Visits Requ ested Visits Authorized [id number] Closed 07/21/2021 07/21/2022 1 1 Encounter Details Date Type Department Care Team Description 10/21/2021 Office Visit Department of Mark Bryant, Tumor Skin Uncertain Behavior (Primary Dx); Dermatology in [place] Meredith Keratosis [facility]; [place], [place] [address] [facility] Nevi Multiple; [address] [place] [address] Keratosis [place] [phone] Social History Tobacco Use Types Packs/Day Years [...] re-excision on 01/20/[address] Hein at [facility]. He denies a personal history of skin cancer or family history for melanoma. He uses sunscreen intermittently. He denies any new or changing lesions today. ?? MEDICAL HISTORY 1.??Negative for skin cancer 2. Right scapula: History of severely atypical nevus, status post re-excision on 01/20/[address] Hein at [facility] 3. Type II diabetes mellitus FAMILY [...] a total of three lesion(s) with two 12-42-oyirwm freeze-thaw cycles of liquid nitrogen cry otherapy. [...] the patient by letter. Patient given pamphlet [id number]. Discussed the risks, benefits, alternatives, and the [...] re-excision on 01/20/[address] Hein at [facility], no recurrence No clinical evidence of [...] Visit Dermatology Mark Bryant M.D. [address] [place] [phone] (Wo rk) Scheduled Referrals Name Type [...] Organization Address City/State/ZIP Code Phon e Number [facility] - [address] [place], [place] [address] [facility] [place] [address] [facility] [address] documented in this encounter Visit Diagnoses Diagnosis Tumor Skin Uncertain Behavior - Primary Keratosis Actinic Nevi Multiple Keratosis Seborrheic documented in this encounter
--- OUTSIDE RECORDS SUMMARY | 2022-03-22 20:37 | XMS_ITS | Encounter Summary ---
:1945 Author Organization [facility] Address [address] [place] [address] Care Team Providers Name Role Phone Unavailable [...] Visit Dermatology Mark Bryant M.D. [address] [place], [place] [phone] (Wo rk) documented as [...]
--- OUTSIDE RECORDS SUMMARY | 2022-03-22 20:37 | XMS_ITS | Encounter Summary ---
:1945 Author Organization [facility] Address [address] [place] [address] Care Team Providers Name Role Phone Unavailable Primary Care Provider Unavailable Reason for Visit Reason Comments Skin Check Appointment Request (Routine) - Closed Specialty Diagnoses / Procedures Referred By Contact Refer red To Contact Family Medicine Referral ID Status Reason Start Date Expiration Date Visits Requ ested Visits Authorized [id number] Closed 04/24/2019 04/23/2020 1 1 Encounter Details Date Type Department Care Team Description 02/12/2020 Office Visit Department of Mark Bryant, Keratosis Seborrheic (Primary Dx); Dermatology in [place], [place] [address] [phone] Social History Tobacco Use Types Packs/Day Years [...] Visit Dermatology Mark Bryant M.D. [address] [place], [place] [phone] (Wo rk) documented as of this encounter Visit Diagnoses Diagnosis Keratosis Seborrheic - Primary Nevi Multiple documented in this encounter
--- OUTSIDE RECORDS SUMMARY | 2022-03-22 20:37 | XMS_ITS | Encounter Summary ---
:1945 Author Organization [facility] Address [address] [place] [address] Care Team Providers Name Role Phone Unavailable Primary Care Provider Unavailable Reason for Visit Reason Comments Skin Check Appointment Request (Routine) - Closed Specialty Diagnoses / Procedures Referred By Contact Refer red To Contact Dermatology Referral ID Status Reason Start Date Expiration Date Visits Requ ested Visits Authorized [id number] Closed 08/29/2018 08/29/2019 1 1 Encounter Details Date Type Department Care Team Description 02/06/2019 Office Visit Department of Mark Bryant Nevi Multi ple (Primary Dx); Dermatology in [place] [facility]; [place], [place] [address] [facility] Keratosis Seborrheic; [address] [place] [address] [place] [phone] Social History Tobacco Use Types Packs/Day Years [...] right and left distal arms with two 72-47-tsewzh freeze-thaw cycles of liquid nitrogen cryotherapy. The [...] Visit Dermatology Mark Bryant M.D. [address] [place], [place] [phone] (Wo rk) documented as of this encounter Visit Diagnoses Diagnosis Nevi Multiple - Primary Keratosis Actinic Keratosis Seborrheic Nevus Dermal documented in this encounter
--- OUTSIDE RECORDS SUMMARY | 2022-03-22 20:38 | XMS_ITS | Encounter Summary ---
:1945 Author Organization [facility] Address [address] [place] [address] Care Team Providers Name Role Phone Unavailable Primary Care Provider Unavailable Reason for Visit Reason Comments Skin Check Encounter Details Date Type Department Care Team Description 11/15/2017 Office Visit Department of Mark Bryant, Erica holbrook (Primary Dx); Dermatology in [place] [facility] [address] [phone] Social History Tobacco Use Types Packs/Day Years [...] lesions which were both removed by in [place]. Per the patient, the pathology showed one [...] accurate and complete. Mark Bryant M.D. . 11/15/2017. 3:56 PM. documented in this encounter Plan of Treatment Upcoming Encounters Date Type Specialty Care Team Description 05/05/2022 Office Visit Dermatology Mark Bryant M.D. [address] [place], [place] [phone] (Wo rk) Scheduled Orders Name Type Priority Associated Diagnoses Order S chedule Dermatology misc minor Dermatology Routine Nevi Multiple Expe cted: 12/21/2017 procedure (Approximate), Expires: 2020 documented as of this encounter Visit Diagnoses Diagnosis Nevi Multiple - Primary Keratosis Seborrheic documented in this encounter
[2022-03-22 21:12] VITALS: BP 154/74; PULSE 93; RESP 18; TEMP 36.7; O2SAT 97
== END 2022-03-22 21:13 | disposition home or self-care (01) ==
PROVIDERS: Emergency Provider Family Medicine; PCP Family Medicine
DX: R04.0 Epistaxis (principal); I10 Essential (primary) hypertension
CPT/HCPCS: 99283

== ENCOUNTER 2022-07-01 09:29 | Outpatient (CLI) | payer MEDICARE, BC, SELFPAY ==
[2022-07-01 13:34] LABS: Chloride* 108 mmol/L (96-114); Potassium* 5.1 mmol/L (3.6-5.1); Sodium* 139 mmol/L (135-149)
[2022-07-01 13:37] LABS: Blood Urea Nitrogen* 24 mg/dL (7-30); Carbon Dioxide* 27 mmol/L (20-32); Creatinine* 1.5 mg/dL (0.5-1.5); Estimated Glomerular Filt Rate 48 ml/min
[2022-07-01 13:38] LABS: Calcium* 9.2 mg/dL (8.4-10.6); Glucose* 121 mg/dL (60-115)
== END 2022-07-01 09:30 | disposition home or self-care (01) ==
PROVIDERS: PCP Family Medicine; Visit Provider Family Medicine
DX: Z90.5 Acquired absence of kidney (principal)
CPT/HCPCS: 80048

== ENCOUNTER 2022-09-10 15:37 | Outpatient (CLI) | payer MEDICARE, BC, SELFPAY | END 2022-09-10 15:38 | disposition home or self-care (01) | LOC: LKVREF 15:39 | PROVIDERS: PCP Family Medicine; Visit Provider Family Medicine | DX: E11.9 Type 2 diabetes mellitus without complications (principal); I10 Essential (primary) hypertension; D64.9 Anemia, unspecified; Z79.899 Other long term (current) drug therapy | CPT/HCPCS: 84443 ==

== ENCOUNTER 2022-12-08 09:48 | Outpatient (CLI) | payer MEDICARE, BC, SELFPAY | END 2022-12-08 09:49 | disposition home or self-care (01) | LOC: LKVREF 09:50 | PROVIDERS: PCP Family Medicine; Visit Provider Family Medicine | DX: E03.9 Hypothyroidism, unspecified (principal); E11.9 Type 2 diabetes mellitus without complications; N40.1 Benign prostatic hyperplasia with lower urinary tract symptoms; R35.1 Nocturia; Z87.438 Personal history of other diseases of male genital organs; Z12.5 Encounter for screening for malignant neoplasm of prostate | CPT/HCPCS: 82043; 82570; 84153 ==

== ENCOUNTER 2023-02-17 12:51 | Outpatient (CLI) | payer MEDICARE, BC, SELFPAY | END 2023-02-17 12:52 | disposition home or self-care (01) | PROVIDERS: PCP Family Medicine; Visit Provider Physician Assistant | DX: C64.1 Malignant neoplasm of right kidney, except renal pelvis (principal); C79.51 Secondary malignant neoplasm of bone | CPT/HCPCS: 73220; A9575 ==

== ENCOUNTER 2023-03-24 08:43 | Outpatient (CLI) | payer MEDICARE, BC, SELFPAY ==
--- OUTSIDE RECORDS SUMMARY | 2023-03-26 12:01 | XMS_ITS | Continuity of Care Document ---
Author Name Unknown Organization [facility] Address [address] [address] [place] [address] Phone Care Team Providers Care Battery Plate Remover Name Role Phone Unavailable Unavailable Unavailable Allergies, Adverse Reactions, Alerts Substance Reaction Status Criticality Sulfa (Sulfonamide Antibiotics) HivesHives Active No Information Medications Medication Instructions Dosage Effective Dates (start - stop) Status Comments Keytruda 25 mg/mL intravenous solution infuse (200MG) by intravenous route every 3 weeks over 200 MG - Active levothyroxine 50 mcg capsule take 1 capsule by oral route every day 50 MCG - Active omeprazole 20 mg capsule,delayed release take 1 capsule by oral route every day 30 minutes to 1 hour before a meal 20 MG - Active lisinopril 20 mg-hydrochlorothiazide 12.5 mg tablet take 1 tablet by oral route every day 1 tablet - Active metoprolol tartrate 25 mg tablet take 1 tablet by oral route every day 25 MG - Active tamsulosin 0.4 mg capsule take 1 capsule by oral route every day 1/2 hour following the same meal each day 0.4 MG - Active diltiazem ER 240 mg capsule,24 hr,extended release take 1 capsule by oral route every day 240 MG - Active glipizide 5 mg tablet take 1 tablet by o ral route every day before meals 5 MG - Active Tylenol PM Extra Strength 25 mg-500 mg tablet take 1 tablet by oral route every day as needed 1 tablet - Active Procedures Procedure Date Offic/outpt E&m Estab Mod-hi 2 New Level 3 Advance Directives Directive Yes / No Effective Date File Name No Information Encounters Encounter Description Practice Location Reason(s) For Visit Diagnoses Date Provider Providers Copied on Encounter Offic/outpt E&m Estab Mod-hi 2 [facility], [address] [address], [place], [place], [id number], tel:[phone] [facility] GI Symptoms or Concerns (chief complaint) Diarrhea, unspecified typeBloating 2 No Information Referring Provider: [facility] Lopez MD[facility] [address] [facility] [address], [place], [place], [facility]. tel:[phone] [facility], [address] [address], [place], [place], [id number], tel:[phone] No Information No Information Referring Provider: Gio Lopez MD, [address] [facility] [address], [place], [place], [facility]. tel:[phone] [facility] 3 [facility], [address] [address], [place], [id number], tel:[phone] [facility] GI Symptoms or Concerns (chief complaint) Anemia, unspecified typeFecal occult blood test positive 1 Therese De Leon. [address] [place] [address], [id number], [place]. tel:[phone] Referring Provider: Pancho Joseph MD, [address], [place], [address]. tel:[phone] [facility], [address] [address], [place], [id number], [place] tel:[phone] [facility] No Information 1 Rc Mar[address] [place] [address], [address], [id number], [place]. tel:[phone] Family History Family Member Type Diagnosis Age At Onset Son Problem (finding) Colon polyps Mother Problem (finding) Colon polyps Brother Problem (finding) Colon polyps Father Problem (finding) Colon polyps Father Problem (finding) prostate cancer Father Problem (finding) GERD Brother Problem (finding) prostate cancer Mother Problem (finding) Gallbladder disease Brother Problem (finding) GERD Brother Problem (finding) diverticulitis of colon Father Problem (finding) cancer of colon Mother Problem (finding) diverticulitis of colon Immunizations Vaccine Date Status Comments SARS-COV-2 (COVID-19) vaccin e, mRNA, spike protein, LNP, bivalent booster, preservative free, 30 mcg/0.3 mL dose, juan r-sucrose formulation administered Note: [facility] bi-d irectional interface ; Source: Other Registry influenza, high-dose seasona l, quadrivalent, .7mL dose, preservative free administered Note: [facility] bi-direct ional interface ; Source: Other Registry Seasonal, quadrivalent, recombinant, injectable influenza vaccine, preservative free administered Note: [facility] bi-direct ional interface ; Source: Other Registry SARS-COV-2 (COVID-19) vaccin e, mRNA, spike protein, LNP, preservative free, 30 mcg/0.3mL dose administered Note: [facility] bi-direct ional interface ; Source: Other Registry influenza, high-dose seasona l, quadrivalent, .7mL dose, preservative free administered Note: [facility] bi-direct ional interface ; Source: Other Registry Afluria Qd administered Note: [facility] bi-directional interface ; Source: Other Registry zoster vaccine recombinant administered N ote: [facility] bi-directional interface ; Source: Other Registry zoster vaccine recombinant administered N ote: [facility] bi-directional interface ; Source: Other Registry influenza, high dose seasona l, preservative-free administered Note: [facility] bi-direct ional interface ; Source: Other Registry influenza, high dose seasona l, preservative-free administered Note: [facility] bi-direct ional interface ; Source: Other Registry influenza, high dose seasona l, preservative-free administered Note: [facility] bi-direct ional interface ; Source: Other Registry tetanus and diphtheria toxoi ds, adsorbed, preservative free, for adult use (5 Lf of tetanus toxoid and 2 Lf of diphtheria toxoid) administered Note: [facility] bi-direct ional interface ; Source: Other Registry influenza, high dose seasona l, preservative-free administered Note: [facility] bi-direct ional interface ; Source: Other Registry zoster vaccine, live administered Note: [facility] bi-directional interface ; Source: Other Registry Prevnar 13 administered Note: [facility] bi-d irectional interface ; Source: Other Registry Pneumovax administered Note: [facility] bi-d irectional interface ; Source: Other Registry Novel [id number], all formulations administered Note: [facility] bi-direct ional interface ; Source: Other Registry Payers Payer name Insurance type Covered republican ID Authoriza tion(s) Medicare NGS [id number] Blue [employer] Medicare Supplement [id number] Social History Type Description Quantity Date Captured Comments Alcohol Use Details No Caffeine Use Details Unknown Tobacco Use Status undefined Smoking Status Never smoker Non-Smoking Tobacco Use Details : No Details Available : No Details Available Sex Male Vital Signs Date / Time: Height Weight BMI Pulse Rate Blood Pressure Temperature Respiratory Rate Body Surface Area Head Circumference Head Circ. Percentile Wt./Janusz. Percentile BMI percentile Pulse Ox Inhaled Ox 8:50 AM 69.00 in 80.377 kg (177.20 lbs) 26.1 7 kg/m eter (2) 63 /min 118/57 mm[Hg] Chief Complaint And Reason For Visit From encounter dated '05/13/2022 09:15'. GI Symptoms or Concerns (chief complaint). Description: Rita is a 76-year-old male who was referred by Dr. Lopez for consultation on diarrhea.The patient has a primary medical history of metastatic renal cell carcinoma, was currently taking Keytruda as well as Lenvima. The patient had been experiencing diarrhea. Per my chart review, when last seen by Dr. Lopez on 05/07/2022, plan was to hold Lenvima for the next week and a half and see if the patient's diarrhea and bloating improved.Currently, the patient reports he has been off of the Lenvima for approximately 6 days and he has noticed improvement of diarrhea and bloating. He states on Wednesday, he did have 3 soft/loose stools without blood. He states he has had no stools yesterday and none so far today. He does feel significantlybetter. is present today too. She does show me a CT scan from November 2021 at that time that is when the renal cell carcinoma was caught and he incidentally also had acute diverticulitis at that time. I did review the patient's last colonoscopy was performed on 12/15/2019. This showed diver ticulosis in the sigmoid colon and ascending colon. Otherwise, normal.Last EGD was on 01/31/2021. This showed a regular Z-line, small hiatal hernia, 3 to 6 mm semi-sessile polyp with no bleeding and no stigmata of recent bleeding from the gastric body. No gross lesions in the entire examined duodenum. Duodenal biopsies showed normal, stomach biopsy with nonerosive reactive gastropathy, negative for inflammation, H. pylori. The stomach polyps consistent with hyperplastic polyps. Otherwise, normal gastric body mucosa.The patient reports he has been doing well with the chemotherapy and he does have upcoming appointment on May 28 for consideration of removal of his kidney. He feels this is his biggest priority at this point.The patient also mentions he did submit for C. diff testing and hehas not heard back from his [facility]. Reason For Referral Reason For Referral No Information Plan Of Treatment Date Type Action Status Referral Ordered: Small Bowel PillCam Appointment date/timeframe: First Available ordered History Of Present Illness Encounter Date Complaint History Of Prese nt Illness GI Symptoms or Concerns Rita is a 76-year-old male who was referred by Dr. Lopez for consultation on diarrhea.The patient has a primary medical history of metastatic renal cell carcinoma, was currently taking Keytruda as well as Lenvima. The patient had been experiencing diarrhea. Per my chart review, when last seen by Dr. Lopez on 05/07/2022, plan was to hold Lenvima for the next week and a half and see if the patient's diarrhea and bloating improved.Currently, the patient reports he has been off of the Lenvima for approximately 6 days and he has noticed improvement of diarrhea and bloating. He states on Wednesday, he did have 3 soft/loose stools without blood. He states he has had no stools yesterday and none so far today. He does feel significantly better. is present today too. She does show me a CT scan from November 2021 at that time that is when the renal cell carcinoma was caught and he incidentally also had acute diverticulitis at that time. I did review the patient's last colonoscopy was performed on 12/15/2019. This showed diverticulosis in the sigmoid colon and ascending colon. Otherwise, normal.Last EGD was on 01/31/2021. This showed a regular Z-line, small hiatal hernia, 3 to 6 mm semi-sessile polyp with no bleeding and no stigmata of recent bleeding from the gastric body. No gross lesions in the entire examined duodenum. Duodenal biopsies showed normal, stomach biopsy with nonerosive reactive gastropathy, negative for inflammation, H. pylori. The stomach polyps consistent with hyperplastic polyps. Otherwise, normal gastric body mucosa.The patient reports he has been doing well with the chemotherapy and he does have upcoming appointment on May 28 for consideration of removal of his kidney. He feels this is his biggest priority at this point.The patient also mentions he did submit for C. diff testing and he has not heard back from his [facility]. GI Symptoms or Concerns This was a telephone visit with Mr. Rita Wesley. He consented to proceed with the telephone visit. He was at home by himself for the visit. We spoke for about 4 minutes, and I spent additional time reviewing his chart and coordinating his care.This is in regards to mild anemia and also a positive fecal occult test. He said that the fecal occult test was done after his hemoglobin was found to be slightly low. He did have a hemoglobin drawn on February 09, 2021. Also that showed a hemoglobin of 12.9, the normal range in the reference being 13.5 to 17.5. He did have a normal MCV at 92 and the rest of his labs were unremarkable. He underwent an upper endoscopy with stomach and duodenum biopsies on January 31, 2021. He had some benign gastric polyps, otherwise biopsy of the stomach was unremarkable and negative for H. pylori and the duodenum biopsy was also normal and negative for celiac disease. His colon prep that day was poor, but he tells me that it was repeated the n Functional Status Date Functional Assessmen t No Information Instructions Date Instruction Additional Infor tyrone - It was great to ta lk to you on the phone- As we discussed, we will proceed with a pill camera study to look at the small intestine for any causes of your mild anemia Related to Anemia, unspecified type Assessments Type Assessment Date assessment Diarrhea, unspecified type assessment Bloating impression IMPRESSIONLornavneet is a 76-year-old male who underwent a CT scan of the abdomen and pelvis with contrast on December 01, 2021 for evaluation of abdominal pain and was found to have acute diverticulitis of the sigmoid colon. He was incidentally found to have renal cell carcinoma. He has been following with [facility] and currently on Keytruda and recently had his Lenvima stopped due to worsening diarrhea and bloating. He has been off of this medication for approximately 6 days and now is having improvement of his diarrhea and bloating. He states he has not had any bowel movements yesterday or today, and he typically at baseline has constipation. At this point, given the high priority of an upcoming urology appointment for possible nephrectomy, I advised the patient we will hold off on a repeat colonoscopy for now unless his Oncology wishes to proceed with this. I would monitor his stools given he has had a significant improvement since stopping the Lenvima. There is some research to suggest 8 weeks after bout of acute diverticulitis to have a repeat colonoscopy, but again, I do not feel this is a high priority at this time. He does have pending C. diff testing which is unlikely given now he is not having any diarrhea. At this point, with discussion with both patient and , we will hold off on any further workup for now and he can reach out at any time if he has new or worsening symptoms. We will also give him some information about low-FODMAPs as well as diaphragmatic breathing to help with bloating symptoms further. Again, suspect this is likely secondary to the Lenvima. Mental Status Date Cognitive Assessment Orientation - [place] ed to time, place, person, situation. Patient Care Teams Name Effective Dates (start - stop) Status Members No Information
== END 2023-03-24 08:44 | disposition home or self-care (01) ==
LOC: NFLDREF 03-26 12:00
PROVIDERS: PCP Family Medicine; Referring Provider Family Medicine; Visit Provider Family Medicine
DX: E11.9 Type 2 diabetes mellitus without complications (principal); E78.5 Hyperlipidemia, unspecified; E78.00 Pure hypercholesterolemia, unspecified; R97.20 Elevated prostate specific antigen [PSA]
CPT/HCPCS: 80053; 80061; 82043; 82570; 84153

== ENCOUNTER 2023-08-25 08:03 | Outpatient (CLI) | payer MEDICARE, BC, SELFPAY | END 2023-08-25 08:04 | disposition home or self-care (01) | LOC: NFLDREF 08-26 06:29 | PROVIDERS: PCP Family Medicine; Referring Provider Family Medicine; Visit Provider Family Medicine | DX: E11.9 Type 2 diabetes mellitus without complications (principal); R97.20 Elevated prostate specific antigen [PSA]; E78.00 Pure hypercholesterolemia, unspecified; Z12.5 Encounter for screening for malignant neoplasm of prostate | CPT/HCPCS: 80061; 82043; 82570; 84153; 84154 ==

== ENCOUNTER 2024-03-23 08:32 | Outpatient (CLI) | payer MEDICARE, BC, SELFPAY | END 2024-03-23 08:33 | disposition home or self-care (01) | LOC: NFLDREF 14:23 | PROVIDERS: PCP Family Medicine; Referring Provider Family Medicine; Visit Provider Family Medicine | DX: E11.22 Type 2 diabetes mellitus with diabetic chronic kidney disease (principal); I12.9 Hypertensive chronic kidney disease with stage 1 through stage 4 chronic kidney disease, or unspecified chronic kidney disease; N18.30 Chronic kidney disease, stage 3 unspecified; N40.0 Benign prostatic hyperplasia without lower urinary tract symptoms; Z13.220 Encounter for screening for lipoid disorders; Z12.5 Encounter for screening for malignant neoplasm of prostate | CPT/HCPCS: 80061; 82043; 82570; G0103 ==

== ENCOUNTER 2024-04-27 10:31 | Emergency (ER) | payer MEDICARE, BC, SELFPAY ==
[2024-04-27] VITALS (8 sets, daily range): BP systolic 155–161; BP diastolic 78–83; PULSE 48–62; RESP 16–18; TEMP 36.2; O2SAT 94–97; BMI 22.2
--- NOTE | 2024-04-27 12:17 | ED_ITS ---
HPI - General Adult General Chief complaint: Unspecified Complaint, Adult Stated complaint: High Blood Pressure Time Seen by Provider: 04/27/24 12:05 History of Present Illness HPI narrative: This 78-year-old male comes in reporting insufficient management of his blood pressure. He is taking metoprolol 12.5 mg daily and recently started on hydralazine. This was increased from 25 mg to 50 mg a couple days ago. He also reports some brief episodes of rapid heart rate with findings of 140-160 beats per minute on various occasions. He does not report any chest pain with this occurs and denies having any lightheadedness or shortness of breath. He has been having some headaches. He states that he has 1 kidney because of renal cancer that metastasized to his long. He did see his oncologist within the last week and I did look at lab results which returned normal. He attempted to get in to clinic but could not today so he came to the emergency department. Related Data Home Medications ?Medication ?Instructions ?Recorded ?Confirmed lancets (NeoChorduch UltraSoft 12/01/21 03/20/24 Lancets) pembrolizumab 25 mg/mL intravenous 200 mg IV Q3W 01/30/22 04/27/24 solution (Keytruda) acetaminophen 325 mg tablet 650 mg PO .twice a day PRN 03/10/22 03/20/24 (Tylenol) polyethylene glycol 3350 17 4 g PO QDAY 03/10/22 03/20/24 gram/dose oral powder (Miralax) lenvatinib 14 mg/day (10 mg x 1 14 mg PO ONCE 03/12/23 04/27/24 and 4 mg x 1) capsule (Lenvima) hydralazine 50 mg tablet 50 mg PO 3XD 04/27/24 04/27/24 Previous Rx's ?Medication ?Instructions ?Recorded blood sugar diagnostic (NeoChorduch #100 ea 03/11/22 Ultra Test strips) hydrocortisone 2.5 % topical cream 1 applic FL BID-QID PRN 12/08/22 with perineal applicator hemorrhoids #3 ea (Proctosol HC) hydrocortisone acetate 25 mg 25 mg FL BID PRN hemorrhoids #24 ea 03/12/23 rectal suppository (Anusol-HC) levothyroxine 100 mcg tablet 100 mcg PO QDAY #90 tabs 11/29/23 diltiazem HCl 240 mg 240 mg PO DAILY #90 caps 03/09/24 capsule,extended release 24 hr clotrimazole-betamethasone 1 1 applic topical BID PRN rash #45 03/20/24 %-0.05 % topical cream grams metoprolol tartrate 25 mg tablet 12.5 mg (1/2 x 25 mg) PO BID #90 03/20/24 tabs omeprazole 20 mg capsule,delayed 20 mg PO QDAY #90 caps 03/20/24 release tamsulosin 0.4 mg capsule 0.4 mg PO DAILY #90 caps 03/20/24 Allergies Allergy/AdvReac Type Severity Reaction Status Date / Time metformin AdvReac Intermediate GI Upset Verified 03/20/24 10:40 mirtazapine AdvReac Intermediate other Verified 03/20/24 10:47 Sulfa Antibiotics Allergy Mild Hives Uncoded 03/20/24 10:40 Review of Systems Status of ROS: Reports: 10 or more systems reviewed and unremarkable except as noted in History and below Narrative: Constitutional: No fevers, no weight gain or loss. Eyes: No discharge. No vision changes. HENT: No congestion, no sore throat, no ear pain. Cardiovascular: No chest pain, no palpitations. Respiratory: No shortness of breath, no wheezes, no cough. Gastrointestinal: No abdominal pain, no vomiting, no diarrhea. Genitourinary: No dysuria, no hematuria. Musculoskeletal: Normal range of motion. Skin: No rashes, no pruritis. Neurological: No dizziness, weakness, sensory change, speech change. Endo/Heme/Allergies: No bruising or bleeding. No polydipsia. Pysch: no suicidality, no anxiety, no insomnia. All other systems reviewed and are negative. [facility] Medical History (Updated 04/27/24 @ 13:16 by Javi Medrano MD) Atrial fibrillation ?I48.91 - Unspecified atrial fibrillation (ICD-10) Malignant neoplasm of right kidney ?C64.1 - Malignant neoplasm of right kidney, except renal pelvis (ICD-10) Back pain ?M54.9 - Dorsalgia, unspecified (ICD-10) PSA elevation ?R97.20 - Elevated prostate specific antigen [PSA] (ICD-10) Encounter for Medicare annual wellness exam ?Z00.00 - Encounter for general adult medical examination without abnormal findings (ICD-10) Hemorrhoids ?K64.9 - Unspecified hemorrhoids (ICD-10) Pre-op exam ?Z01.818 - Encounter for other preprocedural examination (ICD-10) Renal mass, right ?N28.89 - Other specified disorders of kidney and ureter (ICD-10) Hyperglycemia ?R73.9 - Hyperglycemia, unspecified (ICD-10) Epidermoid cyst of neck ?L72.0 - Epidermal cyst (ICD-10) Degeneration of intervertebral disc of lumbar region ?M51.36 - Other intervertebral disc degeneration, lumbar region (ICD-10) Abdominal pain ?R10.9 - Unspecified abdominal pain (ICD-10) Surgical History (Updated 06/25/22 @ 10:09 by Beto Anne MD) History of nephrectomy, right ?Z90.5 - Acquired absence of kidney (ICD-10) History of rotator cuff surgery ?Z98.890 - Other specified postprocedural states (ICD-10) History of colonoscopy ?Z98.890 - Other specified postprocedural states (ICD-10) History of bilateral inguinal hernia repair ?Z98.890 - Other specified postprocedural states (ICD-10) ?Z87.19 - Personal history of other diseases of the digestive system (ICD-10) Family History Family/Other Type 1 diabetes mellitus Type 2 diabetes mellitus Mother Diverticulitis of colon Rheumatoid arthritis Father Prostate cancer Other Encounter for annual physical exam Encounter for pre-operative examination Non-alcoholic fatty liver disease Social History (Updated 04/07/23 @ 10:06 by Bridget Nunez MD) Narrative: Non-smoker rare alcohol. 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 HEENT: Normocephalic, atraumatic. Neck: Normal range of motion. Nontender. Supple. Heart: Regular. No murmurs. Normal rate. Intact distal pulses. Lungs: Clear to auscultation. No chest discomfort. No wheezes, rhonchi, or rales. Abdomen: Normal bowel sounds. Nontender. No rebound tenderness. Genitalia: Deferred. Back: No midline tenderness. Normal range of motion. Extremities: Normal range of motion. No injury. Skin: Intact. No rash. Warm. No erythema or pallor. Neurologic: No altered sensation. No weakness. Alert and oriented. Psychiatric: No suicidality. No anxiety or depression. No insomnia. Nursing notes and vitals signs are reviewed. Const: Vital Signs, click to edit/add: Vital Signs - 24 hr 04/27/24 11:01 04/27/24 12:49 Temperature 97.2 F L Pulse Rate [Pulse Oximeter] 62 55 L Respiratory Rate 18 16 Blood Pressure [Ri ght Upper Arm] 159/82 H 159/80 H Pulse Oximetry 97 97 Oxygen Delivery Me thod Room Air Room Air Course Vital Signs Vital signs: Initial Vital Signs Temperature 97.2 F L 04/27/24 11:01 Temperature Source Temporal Artery Scan 04/27/24 11:01 Pulse Rate 62 04/27/24 11:01 Respiratory Rate 18 04/27/24 11:01 Blood Pressure 159/82 H 04/27/24 11:01 Blood Pressure Mean 107 H 04/27/24 11:01 Pulse Oximetry 97 04/27/24 11:01 Oxygen Delivery Method Room Air 04/27/24 11:01 Vital Signs Temperature 97.2 F L 04/27/24 11:01 Pulse Rate 62 04/27/24 11:01 Respiratory Rate 18 04/27/24 11:01 Blood Pressure 159/82 H 04/27/24 11:01 Pulse Oximetry 97 04/27/24 11:01 Oxygen Delivery Method Room Air 04/27/24 11:01 Temperature 97.2 F L 04/27/24 11:01 Pulse Rate 55 L 04/27/24 12:49 Respiratory Rate 16 04/27/24 12:49 Blood Pressure 159/80 H 04/27/24 12:49 Pulse Oximetry 97 04/27/24 12:49 Oxygen Delivery Method Room Air 04/27/24 12:49 Medical Decision Making MDM Narrative Medical decision making narrative: This patient comes in with concern about his blood pressure but also reports episodes of tachycardia. He had his hydralazine increased from 25 mg to 50 mg recently. I did review adverse effects of this medicine and tachycardia is listed as 1 of the common reactions. The patient states that he seemed to have these episodes after increasing the dose from 25-50 mg. He is taking metoprolol tartrate 12.5 mg twice daily. I did obtain an EKG here any shows normal sinus rhythm with a rate of 55 beats per minute. There are no ST or T-wave abnorma lities. The patient has not had any chest pain. It is not certain that he would tolerate an increase in his metoprolol dose with a baseline heart rate in the mid 50s. It seems more appropriate to revert back to hydralazine at 25 mg. 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 Discharge Plan Discharge Clinical Impression: Tachycardia, paroxysmal Patient Disposition: Home, Self-Care Condition: Stable Additional Instructions: Decrease hydralazine from 50 mg back to 25 mg and continue with metoprolol as prescribed. Follow up with primary physician or plastic sheets finishing supervisor for ongoing management. Return if worsening. Prescriptions: No Action (DME) lancets [OneTouch UltraSoft Lancets] Misc See Rx Instructions .Route Rx Instructions: daily As directed Keytruda 25 mg/mL solution 200 mg IV Q3W Rx Instructions: administer over 30 mins levothyroxine 100 mcg tablet 100 mcg PO QDAY Qty: 90 3RF acetaminophen [Tylenol] 325 mg tablet 650 mg PO .twice a day PRN polyethylene glycol 3350 [Miralax] 17 gram/dose powder 4 g PO QDAY hydrocortisone [Proctosol HC] 2.5 % cream with perineal applicator 1 applic FL BID-QID PRN (Reason: hemorrhoids) Qty: 3 3RF Lenvima 14 mg/day(10 mg x 1-4 mg x 1) capsule 14 mg PO ONCE hydrocortisone acetate [Anusol-HC] 25 mg suppository 25 mg FL BID PRN (Reason: hemorrhoids) Qty: 24 2RF clotrimazole-betamethasone 1-0.05 % cream 1 applic topical BID PRN (Reason: rash) Qty: 45 2RF metoprolol tartrate 25 mg tablet 12.5 mg PO BID Qty: 90 3RF tamsulosin 0.4 mg capsule 0.4 mg PO DAILY Qty: 90 3RF omeprazole 20 mg capsule,delayed release(DR/EC) 20 mg PO QDAY Qty: 90 3RF hydralazine 50 mg tablet 50 mg PO 3XD (DME) OneTouch Ultra Test Strip See Rx Instructions .Route Qty: 100 3RF Rx Instructions: daily -As directed diltiazem HCl 240 mg capsule,extended release 24hr 240 mg PO DAILY Qty: 90 0RF Follow Up/Referrals: Beto Anne MD [Primary Care Provider] - Stand Alone Forms: [facility] Info Instructions
--- OUTSIDE RECORDS SUMMARY | 2024-04-27 12:39 | XMS_ITS | Continuity of Care Document ---
Author Name [facility] Organization [facility] Care Team Providers Care Cheesemaker Name Role Phone [facility] Unavailable Unavailable Problems Combined list of problems from Department of Defense and Veterans Affairs facilities. It does not include entries that were removed or entered in error. Problem Status Onset Date Problem Type Date of Resolution Comments Source Exposure to potentially hazardous substance ([facility] [id number]) Active 07/30/19 24 Condition Jul 30, 2023 Entered By: GEETHA SAPP [facility]: [facility] Documentation Initiative [facility] Benign Prostatic Hypertrophy without Outflow Obstruction ([facility] [id number]) Active Condition [facility] Chronic kidney disease Active Condition [facility] Diabetes Mellitus Type 2 ([facility] [id number]) Active Condition Apr 14, 2023 Entered By: IRASEMA RUIZ Comment: stopped medications after losing weight 2/2 cancer [facility] GERD - Gastro-Esophageal Reflux Disease ([facility] [id number]) Active Condition [facility] HTN - Hypertension ([facility] [id number]) Active Condition [facility] Hypothyroidism ([facility] [id number]) Active Condition [facility] Paroxysmal atrial fibrillation Active Condition Apr 14, 2023 Entered By: IRASEMA RUIZ Comment: Previously on Aspirin but had GI bleed and stopped per patientNov 2022 Entered By: IRASEMA RUIZ Comment: told patient to review this again with his non[facility] doctors to see if should be back on aspirin [facility] Past history Active Condition Apr 14, 2023 Entered By: IRASEMA RUIZ Comment: Juanged - Dr. Anne PCP;Apr 14, 2023 Entered By: IRASEMA RUIZ Comment: FHx - dad prostate cancer, kidney cancer, diabetesNov 2022 Entered By: IRASEMA RUIZ Comment: PSHx - colonoscopy 2019, nephrectomy R, eye surgery, hernia repairNov 2022 Entered By: IRASEMA RUIZ Comment: SHx- no tobacco, alcohol 2x/m, [employer]-; AO exposure [facility] Renal cell carcinoma Active Condition Apr 14, 2023 Entered By: IRASEMA RUIZ Comment: dx 2021, R nephrectomy 05/2022, s/p xrt to metastatic lesions, on Keytruda and LenvimaNov 2022 Entered By: IRASEMA RUIZ Comment: Current oncologist Dr. Lopez; txf to [place] desired [facility] Diagnosis: ICD-10-CM K21.9 Gastro-esophageal reflux disease without esophagitis Active Diagnosis [facility] Medications Combined list of outpatient medications from Department of Defense and [facility] Affairs facilities.Medications provided include 1) outpatient medications from the last 15 months, and 2) patient-reported medications. Medication Details Route Status Patient Instructions Prescription Expires Prescription Number Last Dispense Date Ordering Provider Order Date Order Qty Source ACETAMINOPH EN 325MG TAB TAKE TWO TABLETS BY MOUTH TWO TIMES A DAY ORAL ACTIVE JOSEPH IRASEMA 2022 [facility] DILTIAZEM (EQV-TIAZAC AB4) 240MG 24HR CAP TAKE 1 CAPSULE BY MOUTH EVERY DAY ORAL ACTIVE [facility]2022 [facility] HYDRALAZINE HCL 25MG TAB TAKE ONE TABLET BY MOUTH THREE TIMES A DAY FOR BLOOD PRESSURE ORAL ACTIVE 05/21[facility]20[facility] [id number] [facility] 30 [facility] LENVATINIB CAP,ORAL TAKE BY MOUTH ORAL ACTIVE [facility] IRASEMA 2022 [facility] LEVOTHYROXI NE NA 100MCG TAB (SYNTHROID) TAKE ONE TABLET BY MOUTH EVERY DAY ORAL ACTIVE IRASEMA 2022 [facility] METOPROLOL TARTRATE TAB TAKE 12.5MG BY MOUTH TWICE A DAY [facility] 2022 [facility] OMEPRAZOLE 20MG CAP,EC TAKE 1 CAPSULE BY MOUTH EVERY DAY ORAL ACTIVE IRASEMA 2022 [facility] PEMBROLIZUM AB INJ,SOLN INJECT ACTIVE IRASEMA 2022 [facility] TAMSULOSIN HCL 0.4MG CAP TAKE 2 CAPSULES BY MOUTH EVERY DAY ORAL ACTIVE , IRASEMA 2022 [facility] Allergies, Adverse Reactions, Alerts Combined list of allergies from Department of Defense and Veterans Affairs facilities. It does not include entries that were removed or entered in error. Substance Category Reaction Severity Reaction type Status Date Reported Comments Source SULFA DRUGS Propensity to adverse reactions to drug (finding) Urticaria active 3 [facility] Immunizations Combined list of available immunizations from the Department of Defense and Veterans Affairs facilities. 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 Status Comments Source INFLUENZA, HIGH-DOSE, TRIVALENT, PF 2023 135 complet [facility] COVID-19 ([employer] MRNA, LNP-S, PF, LUIS-SUCROSE, 30 MCG/0.3 ML (AGES 12+ YEARS) 1 2022 BOBBY RUBALCAVA LEFT DELTO ID [id number] 309 complet [facility] INFLUENZA, HIGH-DOSE, QUADRIVALENT 2022 197 complet ed [facility] PNEUMOCOCCAL CONJUGATE PCV20, POLYSACCHARID E [id number] CONJUGATE, ADJUVANT, PF 2022 216 complet [facility] COVID-19 ([employer] MRNA, LNP-S, BIVALENT, PF, 30 MCG/0.3 ML DOSE 2021 300 complet [facility] INFLUENZA, HIGH-DOSE, QUADRIVALENT 2021 197 complet ed [facility] INFLUENZA, RECOMBINANT, QUADRIVALENT, INJECTABLE, PRESERVATIVE FREE 2020 185 complet [facility] COVID-19 ([employer] MRNA, LNP-S, PF, 30 MCG/0.3 ML DOSE 2020 208 complet [facility] INFLUENZA, HIGH-DOSE, QUADRIVALENT 2019 197 complet [facility] INFLUENZA, INJECTABLE, QUADRIVALENT, PRESERVATIVE FREE 2018 150 complet [facility] ZOSTER RECOMBINANT 2018 187 complet [facility] ZOSTER RECOMBINANT 2018 187 complet [facility] INFLUENZA, HIGH DOSE SEASONAL 2017 135 complet ed [facility] INFLUENZA, HIGH DOSE SEASONAL 2016 135 complet ed [facility] INFLUENZA, HIGH DOSE SEASONAL 2015 135 complet ed [facility] TD (ADULT), 5 LF TETANUS TOXOID, PRESERVATIVE FREE, ADSORBED 2015 113 complet ed [facility] INFLUENZA, HIGH DOSE SEASONAL 2014 135 complet ed [facility] ZOSTER LIVE 2014 121 complet ed [facility] PNEUMOCOCCAL CONJUGATE PCV 13 2013 133 complet ed [facility] PNEUMOCOCCAL POLYSACCHARID E PPV23 2009 33 complet ed [facility] NOVEL INFLUENZA-H1N 1-09, ALL FORMULATIONS 2008 128 complet ed [facility] Results Combined list of recent chemistry, hematology and other laboratory results from Department of Defense and Veterans Affairs, ranging from 15 months to all on record, depending upon the facility. Order Name Results Value Reference Range Date Interpretation Specimen Comments Source ALBUMIN/C REATININE RATIO URINE CREATININE [MASS/VOLUM E] IN URINE 105.8 mg/dL 58.0 - 161.0 04/21 Specimen Type: URINE No comment entered. Ordering Provider: NICK RUIZ Report Released Date/Time: Apr 21, 2024 10:33 AM Reporting Lab: [facility] [address] Performing Lab: [facility] [address] [facility] ALBUMIN/C REATININE RATIO URINE MICROALBUMI N/CREATININ E [MASS RATIO] IN URINE 3553.6 mg/g{c reat} <29.9 - 29.9 04/21 H Specimen Type: URINE No comment entered. Ordering Provider: NICK RUIZ Report Released Date/Time: Apr 21, 2024 10:33 AM Reporting Lab: [facility] [address] Performing Lab: [facility] [address] [facility] ALBUMIN/C REATININE RATIO URINE MICROALBUMI N [MASS/VOLUM E] IN URINE 3759.7 mg/L <29.9 - 29.9 04/21 H Specimen Type: URINE No comment entered. Ordering Provider: NICK RUIZ Report Released Date/Time: Apr 21, 2024 10:33 AM Reporting Lab: [facility] [address] Performing Lab: [facility] [address] [place] [facility] CBC LEUKOCYTES [#/VOLUME] IN BLOOD BY AUTOMATED COUNT 4.9 4.0 - 11.0 04/21 Specimen Type: BLOOD No comment entered. Ordering Provider: NICK RUIZ Report Released Date/Time: Apr 14, 2023 09:15 PM Reporting Lab: [facility] [address] Performing Lab: [facility] [address] [place] [facility] CBC ERYTHROCYTE S [#/VOLUME] IN BLOOD BY AUTOMATED COUNT 4.15 4.60 - 6.20 04/21 L Specimen Type: BLOOD No comment entered. Ordering Provider: NICK RUIZ Report Released Date/Time: Apr 14, 2023 09:15 PM Reporting Lab: [facility] [address] Performing Lab: [facility] [address] [place] [facility] CBC HEMOGLOBIN [MASS/VOLUM E] IN BLOOD 13.3 g/dL 13.5 - 17.9 04/21 L Specimen Type: BLOOD No comment entered. Ordering Provider: NICK RUIZ Report Released Date/Time: Apr 14, 2023 09:15 PM Reporting Lab: [facility] [address] Performing Lab: [facility] [address] [place] [facility] CBC HEMATOCRIT [VOLUME FRACTION] OF BLOOD BY AUTOMATED COUNT 40.5 41.0 - 54.0 04/21 L Specimen Type: BLOOD No comment entered. Ordering Provider: NICK RUIZ Report Released Date/Time: Apr 14, 2023 09:15 PM Reporting Lab: [facility] [address] Performing Lab: [facility] [address] [place] [facility] CBC MCV [ENTITIC VOLUME] BY AUTOMATED COUNT 97.6 fL 80.0 - 100.0 04/21 Specimen Type: BLOOD No comment entered. Ordering Provider: NICK RUIZ Report Released Date/Time: Apr 14, 2023 09:15 PM Reporting Lab: [facility] [address] Performing Lab: [facility] [address] [facility] CBC MCH [ENTITIC MASS] BY AUTOMATED COUNT 32.0 pg 27.0 - 33.0 04/21 Specimen Type: BLOOD No comment entered. Ordering Provider: NICK RUIZ Report Released Date/Time: Apr 14, 2023 09:15 PM Reporting Lab: [facility] [address] Performing Lab: [facility] [address] [facility] CBC MCHC [MASS/VOLUM E] BY AUTOMATED COUNT 32.8 g/dL 32.0 - 37.5 04/21 Specimen Type: BLOOD No comment entered. Ordering Provider: NICK RUIZ Report Released Date/Time: Apr 14, 2023 09:15 PM Reporting Lab: [facility] [address] Performing Lab: [facility] [address] [facility] IS [facility] CBC PLATELETS [#/VOLUME] IN BLOOD BY AUTOMATED COUNT 139 150 - 400 04/21 L Specimen Type: BLOOD No comment entered. Ordering Provider: NICK RUIZ Report Released Date/Time: Apr 14, 2023 09:15 PM Reporting Lab: [facility] [address] Performing Lab: [facility] [address] [facility] CBC PLATELET MEAN VOLUME [ENTITIC VOLUME] IN BLOOD BY AUTOMATED COUNT 10.6 fL 9.1 - 13.0 04/21 Specimen Type: BLOOD No comment entered. Ordering Provider: NICK RUIZ Report Released Date/Time: Apr 14, 2023 09:15 PM Reporting Lab: [facility] [address] Performing Lab: [facility] [address] [facility] IS [facility] CBC ERYTHROCYTE DISTRIBUTIO N WIDTH [RATIO] BY AUTOMATED COUNT 13.0 11.5 - 14.5 04/21 Specimen Type: BLOOD No comment entered. Ordering Provider: NICK RUIZ Report Released Date/Time: Apr 14, 2023 09:15 PM Reporting Lab: [facility] [address] Performing Lab: [facility] [address] [place] [facility] CBC PLATELETS RETICULATED /100 PLATELETS IN BLOOD BY AUTOMATED COUNT 4.2 0 - 10 04/21 Specimen Type: BLOOD No comment entered. Ordering Provider: NICK RUIZ Report Released Date/Time: Apr 14, 2023 09:15 PM Reporting Lab: [facility] [address] Performing Lab: [facility] [address] [place] [facility] BASIC METABOLIC PANEL+MG CREATININE [MASS/VOLUM E] IN SERUM OR PLASMA 1.3 mg/dL 0.7 - 1.2 04/21 H Specimen Type: PLASMA No comment entered. Ordering Provider: NICK RUIZ Report Released Date/Time: Apr 14, 2023 09:15 PM Reporting Lab: [facility] [address] Performing Lab: [facility] [address] [place] [facility] BASIC METABOLIC PANEL+MG UREA NITROGEN [MASS/VOLUM E] IN SERUM OR PLASMA 19 mg/dL 8 - 26 04/21 Specimen Type: PLASMA No comment entered. Ordering Provider: NICK RUIZ Report Released Date/Time: Apr 14, 2023 09:15 PM Reporting Lab: [facility] [address] Performing Lab: [facility] [address] [place] [facility] BASIC METABOLIC PANEL+MG GLUCOSE [MASS/VOLUM E] IN SERUM OR PLASMA 113 mg/dL 70 - 100 04/21 H Specimen Type: PLASMA No comment entered. Ordering Provider: NICK RUIZ Report Released Date/Time: Apr 14, 2023 09:15 PM Reporting Lab: [facility] [address] Performing Lab: [facility] [address] [place] [facility] BASIC METABOLIC PANEL+MG SODIUM [MOLES/VOLU ME] IN SERUM OR PLASMA 139 mmol/L 136 - 145 04/21 Specimen Type: PLASMA No comment entered. Ordering Provider: NICK RUIZ Report Released Date/Time: Apr 14, 2023 09:15 PM Reporting Lab: [facility] [address] Performing Lab: [facility] [address] [place] [facility] BASIC METABOLIC PANEL+MG POTASSIUM [MOLES/VOLU ME] IN SERUM OR PLASMA 4.0 mmol/L 3.5 - 5.1 04/21 Specimen Type: PLASMA No comment entered. Ordering Provider: NICK RUIZ Report Released Date/Time: Apr 14, 2023 09:15 PM Reporting Lab: [facility] [address] Performing Lab: [facility] [address] [place] [facility] BASIC METABOLIC PANEL+MG CHLORIDE [MOLES/VOLU ME] IN SERUM OR PLASMA 109 mmol/L 98 - 107 04/21 H Specimen Type: PLASMA No comment entered. Ordering Provider: NICK RUIZ Report Released Date/Time: Apr 14, 2023 09:15 PM Reporting Lab: [facility] [address] Performing Lab: [facility] [address] [place] [facility] BASIC METABOLIC PANEL+MG CARBON DIOXIDE, TOTAL [MOLES/VOLU ME] IN SERUM OR PLASMA 24 mmol/L 04/21 Specimen Type: PLASMA No comment entered. Ordering Provider: NICK RUIZ Report Released Date/Time: Apr 14, 2023 09:15 PM Reporting Lab: [facility] [address] Performing Lab: [facility] [address] [place] [facility] BASIC METABOLIC PANEL+MG CALCIUM [MASS/VOLUM E] IN SERUM OR PLASMA 8.5 mg/dL 8.4 - 10.2 04/21 Specimen Type: PLASMA No comment entered. Ordering Provider: NICK RUIZ Report Released Date/Time: Apr 14, 2023 09:15 PM Reporting Lab: [facility] [address] Performing Lab: [facility] [address] [place] [facility] BASIC METABOLIC PANEL+MG MAGNESIUM [MASS/VOLUM E] IN SERUM OR PLASMA 1.9 mg/dL 1.6 - 2.6 04/21 Specimen Type: PLASMA No comment entered. Ordering Provider: NICK RUIZ Report Released Date/Time: Apr 14, 2023 09:15 PM Reporting Lab: [facility] [address] Performing Lab: [facility] [address] [place] [facility] BASIC METABOLIC PANEL+MG ANION GAP IN SERUM OR PLASMA 6 mmol/L 5 - 15 04/21 Specimen Type: PLASMA No comment entered. Ordering Provider: NICK RUIZ Report Released Date/Time: Apr 14, 2023 09:15 PM Reporting Lab: [facility] [address] Performing Lab: [facility] [address] [place] [facility] BASIC METABOLIC PANEL+MG GLOMERULAR FILTRATION RATE/1.73 SQ M.PREDICTED [VOLUME RATE/AREA] IN SERUM, PLASMA OR BLOOD BY CREATININE- BASED FORMULA (CKD-EPI 2020) 56 60 04/21 L Specimen Type: PLASMA No comment entered. Ordering Provider: NICK RUIZ Report Released Date/Time: Apr 14, 2023 09:15 PM Reporting Lab: [facility] [address] Performing Lab: [facility] [address] [place] [facility] AST/SGOT ASPARTATE AMINOTRANSF ERASE [ENZYMATIC ACTIVITY/VO LUME] IN SERUM OR PLASMA 25 U/L 11 - 34 04/21 Specimen Type: PLASMA No comment entered. Ordering Provider: NICK RUIZ Report Released Date/Time: Apr 14, 2023 09:15 PM Reporting Lab: [facility] [address] Performing Lab: [facility] [address] [place] [facility] ALT/SGPT ALANINE AMINOTRANSF ERASE [ENZYMATIC ACTIVITY/VO LUME] IN SERUM OR PLASMA 19 U/L <44 - 44 04/21 Specimen Type: PLASMA No comment entered. Ordering Provider: NICK RUIZ Report Released Date/Time: Apr 14, 2023 09:15 PM Reporting Lab: [facility] [address] Performing Lab: [facility] [address] [place] [facility] HEMOGLOBI N A1C HEMOGLOBIN A1C/HEMOGLO BIN.TOTAL IN BLOOD 5.5 4.0 - 6.0 04/21 Specimen Type: BLOOD Comment: Values obtained from A1C measurement s can vary. For typical A1C assays, a reported value of 7.0 could actually be between 6.7 and 7.3 if measured by a reference method. A reported value of 9.0 could actually be between 8.7 and 9.3. Ref: http://www. ngsp.org/[place] Pdata.asp Ordering Provider: NICK RUIZ Report Released Date/Time: Apr 14, 2023 09:15 PM Reporting Lab: [facility] [address] Performing Lab: [facility] [address] [facility] [facility] TSH W/REFLEX TO FREE T4 THYROTROPIN [UNITS/VOLU ME] IN SERUM OR PLASMA 1.78 u[IU]/ mL 0.35 - 4.94 04/21 Specimen Type: PLASMA No comment entered. Ordering Provider: NICK RUIZ Report Released Date/Time: Apr 14, 2023 09:15 PM Reporting Lab: [facility] [address] Performing Lab: [facility] [address] [facility] CBC LEUKOCYTES [#/VOLUME] IN BLOOD BY AUTOMATED COUNT 5.07 10*3/u L 4.0 - 11.0 04/14 Specimen Type: BLOOD No comment entered. Ordering Provider: NICK RUIZ Report Released Date/Time: Apr 14, 2023 10:20 AM Reporting Lab: [facility] [address] Performing Lab: [facility] [address] [facility] [facility] CBC ERYTHROCYTE S [#/VOLUME] IN BLOOD BY AUTOMATED COUNT 4.00 10*6/u L 4.6 - 6.2 04/14 L Specimen Type: BLOOD No comment entered. Ordering Provider: NICK RUIZ Report Released Date/Time: Apr 14, 2023 10:20 AM Reporting Lab: [facility] [address] Performing Lab: [facility] [address] [facility] [facility] CBC HEMOGLOBIN [MASS/VOLUM E] IN BLOOD 13.2 g/dL 13.5 - 17.9 04/14 L Specimen Type: BLOOD No comment entered. Ordering Provider: NICK RUIZ Report Released Date/Time: Apr 14, 2023 10:20 AM Reporting Lab: [facility] [address] Performing Lab: [facility] [address] [place] [facility] CBC HEMATOCRIT [VOLUME FRACTION] OF BLOOD BY AUTOMATED COUNT 39.1 41 - 54 04/14 L Specimen Type: BLOOD No comment entered. Ordering Provider: NICK RUIZ Report Released Date/Time: Apr 14, 2023 10:20 AM Reporting Lab: [facility] [address] Performing Lab: [facility] [address] [facility] CBC MCV [ENTITIC VOLUME] BY AUTOMATED COUNT 97.8 fL 80 - 100 04/14 Specimen Type: BLOOD No comment entered. Ordering Provider: NICK RUIZ Report Released Date/Time: Apr 14, 2023 10:20 AM Reporting Lab: [facility] [address] Performing Lab: [facility] [address] [place] [facility] CBC MCH [ENTITIC MASS] BY AUTOMATED COUNT 33.0 pg 27 - 33 04/14 Specimen Type: BLOOD No comment entered. Ordering Provider: NICK RUIZ Report Released Date/Time: Apr 14, 2023 10:20 AM Reporting Lab: [facility] [address] Performing Lab: [facility] [address] [place] [facility] CBC MCHC [MASS/VOLUM E] BY AUTOMATED COUNT 33.8 g/dL 32.0 - 37.5 04/14 Specimen Type: BLOOD No comment entered. Ordering Provider: NICK RUIZ Report Released Date/Time: Apr 14, 2023 10:20 AM Reporting Lab: [facility] [address] Performing Lab: [facility] [address] [address] [facility] CBC PLATELETS [#/VOLUME] IN BLOOD BY AUTOMATED COUNT 151 10*3/u L 150 - 400 04/14 Specimen Type: BLOOD No comment entered. Ordering Provider: NICK RUIZ Report Released Date/Time: Apr 14, 2023 10:20 AM Reporting Lab: [facility] [address] Performing Lab: [facility] [address] [facility] CBC [place]ATE[place] MEAN VOLUME [ENTITIC VOLUME] IN BLOOD BY AUTOMATED COUNT 10.4 fL 7.4 - 10.4 04/14 Specimen Type: BLOOD No comment entered. Ordering Provider: NICK RUIZ Report Released Date/Time: Apr 14, 2023 10:20 AM Reporting Lab: [facility] [address] Performing Lab: [facility] [address] [facility] CBC ERYTHROCYTE DISTRIBUTIO N WIDTH [RATIO] BY AUTOMATED COUNT 12.8 11.5 - 14.5 04/14 Specimen Type: BLOOD No comment entered. Ordering Provider: NICK RUIZ Report Released Date/Time: Apr 14, 2023 10:20 AM Reporting Lab: [facility] [address] Performing Lab: [facility] [address] [facility] COMPREHEN SIVE METABOLIC PANEL+MG CREATININE [MASS/VOLUM E] IN SERUM OR PLASMA 1.4 mg/dL 0.7 - 1.2 04/14 H Specimen Type: PLASMA Comment: Elevated triglycerid e result from a non-fasting specimen should be interpreted with caution. A fasting panel is recommended for accurate triglycerid es when trigs are >200 from a non-fasting specimen. Triglycerid e concentrati on > 400 mg/dL. LDL and VLDL calculation s cancelled, LDL measured by direct analysis. Ordering Provider: NICK RUIZ Report Released Date/Time: Apr 14, 2023 10:20 AM Reporting Lab: [facility] [address] Performing Lab: [facility] [address] [facility] COMPREHEN SIVE METABOLIC PANEL+MG UREA NITROGEN [MASS/VOLUM E] IN SERUM OR PLASMA 25 mg/dL 8 - 26 04/14 Specimen Type: PLASMA Comment: Elevated triglycerid e result from a non-fasting specimen should be interpreted with caution. A fasting panel is recommended for accurate triglycerid es when trigs are >200 from a non-fasting specimen. Triglycerid e concentrati on > 400 mg/dL. LDL and VLDL calculation s cancelled, LDL measured by direct analysis. Ordering Provider: NICK RUIZ Report Released Date/Time: Apr 14, 2023 10:20 AM Reporting Lab: [facility] [address] Performing Lab: [facility] [address] [place] [facility] COMPREHEN SIVE METABOLIC PANEL+MG GLUCOSE [MASS/VOLUM E] IN SERUM OR PLASMA 132 mg/dL 70 - 100 04/14 H Specimen Type: PLASMA Comment: Elevated triglycerid e result from a non-fasting specimen should be interpreted with caution. A fasting panel is recommended for accurate triglycerid es when trigs are >200 from a non-fasting specimen. Triglycerid e concentrati on > 400 mg/dL. LDL and VLDL calculation s cancelled, LDL measured by direct analysis. Ordering Provider: NICK RUIZ Report Released Date/Time: Apr 14, 2023 10:20 AM Reporting Lab: [facility] [address] Performing Lab: [facility] [address] [facility] [facility] COMPREHEN SIVE METABOLIC PANEL+MG SODIUM [MOLES/VOLU ME] IN SERUM OR PLASMA 138 mmol/L 136 - 145 04/14 Specimen Type: PLASMA Comment: Elevated triglycerid e result from a non-fasting specimen should be interpreted with caution. A fasting panel is recommended for accurate triglycerid es when trigs are >200 from a non-fasting specimen. Triglycerid e concentrati on > 400 mg/dL. LDL and VLDL calculation s cancelled, LDL measured by direct analysis. Ordering Provider: NICK RUIZ Report Released Date/Time: Apr 14, 2023 10:20 AM Reporting Lab: [facility] [address] Performing Lab: [facility] [address] [place] [facility] COMPREHEN SIVE METABOLIC PANEL+MG POTASSIUM [MOLES/VOLU ME] IN SERUM OR PLASMA 5.5 mmol/L 3.5 - 5.1 04/14 H Specimen Type: PLASMA Comment: Elevated triglycerid e result from a non-fasting specimen should be interpreted with caution. A fasting panel is recommended for accurate triglycerid es when trigs are >200 from a non-fasting specimen. Triglycerid e concentrati on > 400 mg/dL. LDL and VLDL calculation s cancelled, LDL measured by direct analysis. Ordering Provider: NICK RUIZ Report Released Date/Time: Apr 14, 2023 10:20 AM Reporting Lab: [facility] [id number] Performing Lab: [facility] [id number] [place] [facility] SIVE METABOLIC PANEL+MG CHLORIDE [MOLES/VOLU ME] IN SERUM OR PLASMA 109 mmol/L 98 - 107 04/14 H Specimen Type: PLASMA Comment: Elevated triglycerid e result from a non-fasting specimen should be interpreted with caution. A fasting panel is recommended for accurate triglycerid es when trigs are >200 from a non-fasting specimen. Triglycerid e concentrati on > 400 mg/dL. LDL and VLDL calculation s cancelled, LDL measured by direct analysis. Ordering Provider: NICK RUIZ Report Released Date/Time: Apr 14, 2023 10:20 AM Reporting Lab: [facility] [id number] Performing Lab: [facility] [id number] [place] [facility] COMPREHEN SIVE METABOLIC PANEL+MG CARBON DIOXIDE, TOTAL [MOLES/VOLU ME] IN SERUM OR PLASMA 23 mmol/L 22 - 29 04/14 Specimen Type: PLASMA Comment: Elevated triglycerid e result from a non-fasting specimen should be interpreted with caution. A fasting panel is recommended for accurate triglycerid es when trigs are >200 from a non-fasting specimen. Triglycerid e concentrati on > 400 mg/dL. LDL and VLDL calculation s cancelled, LDL measured by direct analysis. Ordering Provider: NICK RUIZ Report Released Date/Time: Apr 14, 2023 10:20 AM Reporting Lab: [facility] [phone] Performing Lab: [facility] [address] [place] [facility] COMPREHEN SIVE METABOLIC PANEL+MG CALCIUM [MASS/VOLUM E] IN SERUM OR PLASMA 9.1 mg/dL 8.4 - 10.2 04/14 Specimen Type: PLASMA Comment: Elevated triglycerid e result from a non-fasting specimen should be interpreted with caution. A fasting panel is recommended for accurate triglycerid es when trigs are >200 from a non-fasting specimen. Triglycerid e concentrati on > 400 mg/dL. LDL and VLDL calculation s cancelled, LDL measured by direct analysis. Ordering Provider: NICK RUIZ Report Released Date/Time: Apr 14, 2023 10:20 AM Reporting Lab: [facility] [phone] Performing Lab: [facility] [phone] [facility] COMPREHEN SIVE METABOLIC PANEL+MG PROTEIN [MASS/VOLUM E] IN SERUM OR PLASMA 7.6 g/dL 6.0 - 8.3 04/14 Specimen Type: PLASMA Comment: Elevated triglycerid e result from a non-fasting specimen should be interpreted with caution. A fasting panel is recommended for accurate triglycerid es when trigs are >200 from a non-fasting specimen. Triglycerid e concentrati on > 400 mg/dL. LDL and VLDL calculation s cancelled, LDL measured by direct analysis. Ordering Provider: NICK RUIZ Report Released Date/Time: Apr 14, 2023 10:20 AM Reporting Lab: [facility] [phone] Performing Lab: [facility] [phone] [facility] COMPREHEN SIVE METABOLIC PANEL+MG ALBUMIN [MASS/VOLUM E] IN SERUM OR PLASMA 3.8 g/dL 3.5 - 5.2 04/14 Specimen Type: PLASMA Comment: Elevated triglycerid e result from a non-fasting specimen should be interpreted with caution. A fasting panel is recommended for accurate triglycerid es when trigs are >200 from a non-fasting specimen. Triglycerid e concentrati on > 400 mg/dL. LDL and VLDL calculation s cancelled, LDL measured by direct analysis. Ordering Provider: NICK RUIZ Report Released Date/Time: Apr 14, 2023 10:20 AM Reporting Lab: [facility] [phone] Performing Lab: [facility] [phone] [address] [facility] COMPREHEN SIVE METABOLIC PANEL+MG BILIRUBIN.T OTAL [MASS/VOLUM E] IN SERUM OR PLASMA 0.4 mg/dL 0.2 - 1.2 04/14 Specimen Type: PLASMA Comment: Elevated triglycerid e result from a non-fasting specimen should be interpreted with caution. A fasting panel is recommended for accurate triglycerid es when trigs are >200 from a non-fasting specimen. Triglycerid e concentrati on > 400 mg/dL. LDL and VLDL calculation s cancelled, LDL measured by direct analysis. Ordering Provider: NICK RUIZ Report Released Date/Time: Apr 14, 2023 10:20 AM Reporting Lab: [facility] [phone] Performing Lab: [facility] [address] [address] [facility] COMPREHEN SIVE METABOLIC PANEL+MG MAGNESIUM [MASS/VOLUM E] IN SERUM OR PLASMA 2.5 mg/dL 1.6 - 2.6 04/14 Specimen Type: PLASMA Comment: Elevated triglycerid e result from a non-fasting specimen should be interpreted with caution. A fasting panel is recommended for accurate triglycerid es when trigs are >200 from a non-fasting specimen. Triglycerid e concentrati on > 400 mg/dL. LDL and VLDL calculation s cancelled, LDL measured by direct analysis. Ordering Provider: NICK RUIZ Report Released Date/Time: Apr 14, 2023 10:20 AM Reporting Lab: [facility] [phone] Performing Lab: [facility] [phone] [place] [facility] COMPREHEN SIVE METABOLIC PANEL+MG ANION GAP IN SERUM OR PLASMA 6 mmol/L 5 - 15 04/14 Specimen Type: PLASMA Comment: Elevated triglycerid e result from a non-fasting specimen should be interpreted with caution. A fasting panel is recommended for accurate triglycerid es when trigs are >200 from a non-fasting specimen. Triglycerid e concentrati on > 400 mg/dL. LDL and VLDL calculation s cancelled, LDL measured by direct analysis. Ordering Provider: NICK RUIZ Report Released Date/Time: Apr 14, 2023 10:20 AM Reporting Lab: [facility] [phone] Performing Lab: [facility] [phone] [address] [facility] COMPREHEN SIVE METABOLIC PANEL+MG ALKALINE PHOSPHATASE [ENZYMATIC ACTIVITY/VO LUME] IN SERUM OR PLASMA 72 U/L 40 - 150 04/14 Specimen Type: PLASMA Comment: Elevated triglycerid e result from a non-fasting specimen should be interpreted with caution. A fasting panel is recommended for accurate triglycerid es when trigs are >200 from a non-fasting specimen. Triglycerid e concentrati on > 400 mg/dL. LDL and VLDL calculation s cancelled, LDL measured by direct analysis. Ordering Provider: NICK RUIZ Report Released Date/Time: Apr 14, 2023 10:20 AM Reporting Lab: [facility] [phone] Performing Lab: [facility] [phone] [facility] COMPREHEN SIVE METABOLIC PANEL+MG ALANINE AMINOTRANSF ERASE [ENZYMATIC ACTIVITY/VO LUME] IN SERUM OR PLASMA 20 U/L <55 - 55 04/14 Specimen Type: PLASMA Comment: Elevated triglycerid e result from a non-fasting specimen should be interpreted with caution. A fasting panel is recommended for accurate triglycerid es when trigs are >200 from a non-fasting specimen. Triglycerid e concentrati on > 400 mg/dL. LDL and VLDL calculation s cancelled, LDL measured by direct analysis. Ordering Provider: NICK RUIZ Report Released Date/Time: Apr 14, 2023 10:20 AM Reporting Lab: [facility] [phone] Performing Lab: [facility] [phone] [address] [facility] COMPREHEN SIVE METABOLIC PANEL+MG ASPARTATE AMINOTRANSF ERASE [ENZYMATIC ACTIVITY/VO LUME] IN SERUM OR PLASMA 35 U/L <34 - 34 04/14 H Specimen Type: PLASMA Comment: Elevated triglycerid e result from a non-fasting specimen should be interpreted with caution. A fasting panel is recommended for accurate triglycerid es when trigs are >200 from a non-fasting specimen. Triglycerid e concentrati on > 400 mg/dL. LDL and VLDL calculation s cancelled, LDL measured by direct analysis. Ordering Provider: NICK RUIZ Report Released Date/Time: Apr 14, 2023 10:20 AM Reporting Lab: [facility] [phone] Performing Lab: [facility] [phone] [facility] COMPREHEN SIVE METABOLIC PANEL+MG GLOMERULAR FILTRATION RATE/1.73 SQ M.PREDICTED [VOLUME RATE/AREA] IN SERUM, PLASMA OR BLOOD BY CREATININE- BASED FORMULA (CKD-EPI 2020) 51 60 04/14 L Specimen Type: PLASMA Comment: Elevated triglycerid e result from a non-fasting specimen should be interpreted with caution. A fasting panel is recommended for accurate triglycerid es when trigs are >200 from a non-fasting specimen. Triglycerid e concentrati on > 400 mg/dL. LDL and VLDL calculation s cancelled, LDL measured by direct analysis. Ordering Provider: NICK RUIZ Report Released Date/Time: Apr 14, 2023 10:20 AM Reporting Lab: [facility] [phone] Performing Lab: [facility] [phone] [facility] HEMOGLOBI N A1C HEMOGLOBIN A1C/HEMOGLO BIN.TOTAL IN BLOOD 5.8 4.0 - 6.0 04/14 Specimen Type: BLOOD Comment: Values obtained from A1C measurement s can vary. For typical A1C assays, a reported value of 7.0 could actually be between 6.7 and 7.3 if measured by a reference method. A reported value of 9.0 could actually be between 8.7 and 9.3. Ref: http://www. ngsp.org/[place] Pdata.asp Ordering Provider: NICK RUIZ Report Released Date/Time: Apr 14, 2023 10:20 AM Reporting Lab: [facility] [phone] Performing Lab: [facility] [phone] [facility] Vital Signs Combined list of inpatient and outpatient Vital Signs from Department of Defense and Veterans Affairs, ranging from 12 months to all on record, depending upon the facility. Vital Sign Value Date Comments Source SYSTOLIC BLOOD PRESSURE 168 04/21/2024 14:51:48 [facility] DIASTOLIC BLOOD PRESSURE 82 04/21/2024 14:51:48 [facility] PULSE OXIMETRY 97 04/21/2024 14:51:48 [facility] WEIGHT 166 04/21/2024 14:51:48 [facility] BMI 24kg/m2 04/21/2024 14:51:48 [facility] PAIN 0 04/21/2024 14:51:48 [facility] HEIGHT 70 04/21/2024 14:51:48 [facility] TEMPERATURE 98.3 04/21/2024 14:51:48 [facility] PULSE 64 04/21/2024 14:51:48 [facility] RESPIRATION 17 04/21/2024 14:51:48 [facility] Encounters Combined list of: 1) Encounters from Department of [facility] Affairs facilities going back up to thelast 18 months. 2) Encounters from the Department of [facility] facilities going back up to 280 months. Location Location Details Encounter Type Encounter Number Reason For Visit Attending Provider ADM Date DC Date Status Disposition Source [place] [facility] Outpatient Encounter [id number] 03/12 [facility] [place] [facility] Outpatient Encounter [id number] 04/03 [facility] [place] [facility] OFFICE O/P [place] 60-74 MIN [id number] Diagnos is: ICD-10- CM K21.9 Gastro- esophag eal reflux disease without esophag itis
Mundo RUIZ 04/14 [facility] [place] [facility] Outpatient Encounter [id number] [facility]NAGEMENT [id number] ABDULLAHI COPELAND V 04/20 [place] [facility] Outpatient Encounter [id number] 04/[address] [facility] [place] [facility] Outpatient Encounter [id number] 04/20 [facility] [place] [facility] Outpatient Encounter [id number] REED ROSEN 04/26 [place] [facility] [place] [facility] Outpatient Encounter [id number] JESSIKA SHAKIRA A 05/03 [place] [facility] [place] [facility] Outpatient Encounter [id number] RANDYKAREY SHAKIRA A 05/10 [place] [facility] [place] [facility] Outpatient Encounter [id number] JESSIKA SHAKIRA A 05/18 [place] [facility] [place] [facility] Outpatient Encounter [id number] JESSIKA SHAKIRA A 05/25 [facility] Outpatient Encounter [id number] 05/26 [facility] [place] [facility] Outpatient Encounter [id number] JESSIKA SHAKIRA A 05/26 [place] [facility] [place] [facility] Outpatient Encounter [id number] 03/09 [place] [facility] [place] [facility] Outpatient Encounter [id number] 04/21 [place] [facility] [place] [facility] Outpatient Encounter [id number] Mundo RUIZ 04/21 [facility] Social History Combined list of available smoking, tobacco, and other social history from Department of Defense and Veterans Affairs facilities. Social History Type Response Date Comment Sourc e Tobacco smoking status SCIS NE-TOBACCO NEVER USED CIGARETTES 04/21/2024 [facility] History of tobacco use NE-TOBACCO NEVER USED OTHER TYPE 04/21/2024 [facility] History of tobacco use NE-TOBACCO NEVER USED 04/14/2023 [facility] Advance Directives List of completed, amended, or rescinded Advance Directives on record at Department of Veterans Affairs facilities. An actual copy of the Directive is not included. Date Advance Directive Provider Source 04/20/2023 ADVANCE DIRECTIVE [facility]ISHOP TRAVIS [facility] 04/20/2023 ADVANCE DIRECTIVE DISCUSSION DELMY TRAVIS [facility]
--- OUTSIDE RECORDS SUMMARY | 2024-04-27 12:39 | XMS_ITS | Encounter Summary ---
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 This section includes the names of all active insurance providers for the patient. Insurance Provider Type of Coverage Plan Name Start of Policy Coverage End of Policy Coverage Group Number Member ID Insurance Provider's Telephone Number Policy Barrientos's Name Patient's Relationship to Policy Barrientos [facility] MEDICARE SUPP[employer] [place] MEDIC ARE SUPPL EMENT May 24, 2018 [id number] [phone] Mai MALONE PATIENT [facility] MEDICARE SUPP[employer]MEN [place] MEDIC ARE SUPPL EMENT May 24, 2018 [id number] [phone] Genny MALONE SP[place] MEDICARE (WNR) MEDICARE (M) PART A Apr 23, 2011 PART A [id number] [phone] Mai MALONE PATIENT Selected Encounter This section includes the information on record at OR for the Encounter. Date/Time Encounter Type Encounter Description Reason Provider Source May 25, 2023 07:05 AM Outpatient Encounter ADMIN PAT ACTIVTIES (MASNONCT) ROSA ROSEN Encounter Template Text not used by [place] Plan of Treatment: Future Appointments (+ 6 months) and Future Tests (+/- 45 days) The Plan of Treatment section includes future care activities for the patient from all [place] [facility]. This section includes future appointments and future orders which are active, pending or scheduled. Future Appointments This section includes appointments that were scheduled to occur 6 months from the date of the Encounter, up to a maximum of 20 appointments. The data comes from all [facility]. Appointment Date/Time Appointment Type Appointme nt Facility Name Jun 03, 2023 08:30 AM AMBULATORY - NONE [facility] Active, Pending, and Scheduled Orders This section includes a listing of several types of active, pending, and scheduled orders, including clinic medications orders, diagnostic test orders, procedure orders and consult orders; where thestart date of the order is 45 days before the date of the Encounter or 45 days after the date of the Encounter. The data comes from all [facility]. Test Date/Time Test Type Test Details Facility Name Apr 14, 2023 12:00 AM Laboratory - Chemi stry Order LIPID PANEL,FASTING PLASMA SP ONCE [facility] Social History: Smoking Status (Most current) and Tobacco Use (All prior to encounter date) This section includes the most current, and the historical, smoking and tobacco- related health factors from the [place] facility where the Encounter took place. Current Smoking Status This section includes the most current smoking, or tobacco-related health factor, from the [place] facility where the Encounter took place. Date/Time Current Smoking Status Comment Yajaira lorenzo Apr 14, 2023 09:30 AM VA-TOBACCO NEVER USED [facility] Advance Directives: All historical and current Section Date Range: From patient's date of to the date document was created. This section includes ALL of a patient's completed or amended [place] Advance and Rescinded Directives. The entries below indicate that a directive exists for the patient, but an actual copy is not included with this document. The data comes from all [facility]. Date Advance Directives Provider Source Apr 20, 2023 ADVANCE DIRECTIVE BISHOP TRAVIS [facility] Apr 20, 2023 ADVANCE DIRECTIVE DISCUSSION DELMY TRAVIS [facility] Encounter Notes: All associated encounter notes This section contains the clinical notes associated to the Encounter. Date/Time Encounter Note(s) Provider Source May 25, 2023 07:05 AM LICENSED RETAIL SUPERVISOR REFER RAL NOTE: LOCAL TITLE: TRAVELING COORDINATOR NOTE STANDARD TITLE: LICENSED RETAIL SUPERVISOR REFERRAL NOTE DATE OF NOTE: MAY 25, 2023@07:05 ENTRY DATE: MAY 25, 2023@07:05:53 AUTHOR: ROSA ROSEN EXP COSIGNER: URGENCY: STATUS: COMPLETED Traveling Vet consult activity for: incoming/outgoing consult care coordination, communication &/or chart review. /marilee/ ROSA ROSEN RN UTILIZATIONMANAGEMENT Signed: 05/25/2023 07:06 ROSA ROSEN [facility]
--- OUTSIDE RECORDS SUMMARY | 2024-04-27 12:39 | XMS_ITS | Encounter Summary ---
Author Name [facility] [place] [facility] [place] Address [address] [place] [address] Care Team Providers Care Cane Furniture Maker Name Role Phone BRENNAIRASEMA LANGLEY Primary Care Provider Unavailabl e Insurance Providers: [...] Barrientos's Name Patient's Relationship to Policy Barrientos [facility] MEDICARE SUPPLEMEN [place] MEDIC ARE SUPPL EMENT May 24, 2018 [id number] Mai MALONE PATIENT [employer] [place] MEDICARE SUPPLEMEN [place] MEDIC ARE SUPPL EMENT May 24, 2018 [id number] [phone] Genny MALONE SPOUSE MEDICARE (WNR) MEDICARE (M) PART A Apr 23, 2011 PART A [id number] [phone] Mai MALONE PATIENT Selected Encounter This section includes the information on record at [place] for the Encounter. Date/Time Encounter Type Encounter Description Reason Pro vider Source May 26, 2023 10:54 AM Outpatient Encounter ADMIN PAT ACTIVTIES (MASNONCT) [facility] Encounter Template Text not used by [place] Plan of Treatment: Future Appointments (+ 6 months) and Future Tests (+/- 45 days) The Plan of Treatment section includes future care activities for the patient from all [place] [facility] This section includes future appointments and future orders which are active, pending or scheduled. Future Appointments This section includes appointments that were scheduled to occur 6 months from the date of the Encounter, up to a maximum of 20 appointments. The data comes from all [facility]. Appointment Date/Time Appointment Type Appointme nt Facility Name Jun 03, 2023 08:30 AM AMBULATORY - NONE [facility] Active, Pending, and Scheduled Orders This section includes a listing of several types of active, pending, and scheduled orders, including clinic medications orders, diagnostic test orders, procedure orders and consult orders; where the start date of the order is 45 days before the date of the Encounter or 45 days after the date of theEncounter. The data comes from all [facility]. Test Date/Time Test Type Test Details Facility Name Apr 14, 2023 12:00 AM Laboratory - Chemi stry Order LIPID PANEL,FASTING PLASMA SP ONCE [facility] Advance Directives: All historical and current Section Date Range: From patient's date of to the date document was created. This section includes ALL of a patient's completed or amended [place] Advance and Rescinded Directives. The entries below indicate that a directive exists for the patient, but an actual copy is not included with this document. The data comes from all [facility]. Date Advance Directives Provider Source Apr 20, 2023 ADVANCE DIRECTIVE BISHOP TRAVIS [facility] Apr 20, 2023 ADVANCE DIRECTIVE DISCUSSION DELMY TRAVIS [facility] Encounter Notes: All associated encounter notes This section contains the clinical notes associated to the Encounter. Date/Time Encounter Note(s) Provider Source May 26, 2023 10:54 AM NURSING NOTE: LOCAL TITLE: CONSULT CARE COMPLETION-TVC NOTE STANDARD TITLE: NURSING NOTE DATE OF NOTE: MAY 26, 2023@10:54 ENTRY DATE: MAY 26, 2023@10:54:21 AUTHOR: MARLEEN COPELAND V EXP COSIGNER: URGENCY: STATUS: COMPLETED Communication received via: Traveling Consult Appointment has been scheduled. /marilee/ MARLEEN COPELAND MSN,RN Signed: 05/26/2023 10:54 MARLEEN COPELAND V [facility]
--- OUTSIDE RECORDS SUMMARY | 2024-04-27 12:39 | XMS_ITS | Encounter Summary ---
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 Date/Time Encounter Type Encounter Description Reason Provider Source May 18, 2023 02:32 PM Outpatient Encounter ADMIN PAT ACTIVTIES (MASNONCT) ROSA ROSEN Encounter Template Text not used by [place] Plan of Treatment: Future Appointments (+ 6 months) and Future Tests (+/- 45 days) The Plan of Treatment section includes future care activities for the patient from all [place] [facility]. This section includes future appointments and future orders which are active, pending or scheduled. Future Appointments This section includes appointments that were scheduled to occur 6 months from the date of the Encounter, up to a maximum of 20 appointments. The data comes from all [facility]. Appointment Date/Time Appointment Type Appointme nt Facility Name Jun 03, 2023 08:30 AM AMBULATORY - NONE [facility] Active, Pending, and Scheduled Orders This section includes a listing of several types of active, pending, and scheduled orders, including clinic medications orders, diagnostic test orders, procedure orders and consult orders; where thestart date of the order is 45 days before the date of the Encounter or 45 days after the date of the Encounter. The data comes from all [facility]. Test Date/Time Test Type Test Details Facility Name Apr 14, 2023 12:00 AM Laboratory - Chemi stry Order LIPID PANEL,FASTING PLASMA SP ONCE [facility] Social History: Smoking Status (Most current) and Tobacco Use (All prior to encounter date) This section includes the most current, and the historical, smoking and tobacco- related health factors from the [place] facility where the Encounter took place. Current Smoking Status This section includes the most current smoking, or tobacco-related health factor, from the [place] facility where the Encounter took place. Date/Time Current Smoking Status Comment Yajaira lorenzo Apr 14, 2023 09:30 AM VA-TOBACCO NEVER USED [facility] Advance Directives: All historical and current Section Date Range: From patient's date of to the date document was created. This section includes ALL of a patient's completed or amended [place] Advance and Rescinded Directives. The entries below indicate that a directive exists for the patient, but an actual copy is not included with this document. The data comes from all [facility]. Date Advance Directives Provider Source Apr 20, 2023 ADVANCE DIRECTIVE BISHOP TRAVIS [facility] Apr 20, 2023 ADVANCE DIRECTIVE DISCUSSION DELMY TRAVIS [facility] Encounter Notes: All associated encounter notes This section contains the clinical notes associated to the Encounter. 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 /marilee/ ROSA ROSEN RN UTILIZATIONMANAGEMENT Signed: 05/18/2023 14:32 ROSA ROSEN [facility]
--- OUTSIDE RECORDS SUMMARY | 2024-04-27 12:39 | XMS_ITS | Encounter Summary ---
Author Name [facility] [place] Address [address] [place] [address] Care Team Providers Care Drilling Contractor Name Role Phone RADHA MIRANDA Primary Care Provider Unavailabl e Insurance Providers: [...] Barrientos's Name Patient's Relationship to Policy Barrientos [facility] MEDICARE SUPPLEMEN LEE MEDIC ARE SUPPL EMENT May 24, 2018 [id number] [phone] [facility] SUPPLEMEN [place] MEDIC ARE SUPPL EMENT May 24, 2018 [id number] Genny MALONE SPOUSE MEDICARE (WNR) MEDICARE (M) PART A Apr 23, 2011 PART A [id number] [phone] Mai MALONE PATIENT Selected Encounter This section includes the information on record at [place] for the Encounter. Date/Time Encounter Type Encounter Description Reason Provider Source May 26, 2023 10:56 AM Outpatient Encounter ADMIN PAT ACTIVTIES (MASNONCT) ROSA ROSEN Encounter Template Text not used by [place] Plan of Treatment: Future Appointments (+ 6 months) and Future Tests (+/- 45 days) The Plan of Treatment section includes future care activities for the patient from all [place] [facility] This section includes future appointments and future orders which are active, pending or scheduled. Future Appointments This section includes appointments that were scheduled to occur 6 months from the date of the Encounter, up to a maximum of 20 appointments. The data comes from all [facility]. Appointment Date/Time Appointment Type Appointme nt Facility Name Jun 03, 2023 08:30 AM AMBULATORY - NONE [facility] Active, Pending, and Scheduled Orders This section includes a listing of several types of active, pending, and scheduled orders, including clinic medications orders, diagnostic test orders, procedure orders and consult orders; where the start date of the order is 45 days before the date of the Encounter or 45 days after the date of theEncounter. The data comes from all [facility]. Test Date/Time Test Type Test Details Facility Name Apr 14, 2023 12:00 AM Laboratory - Chemi stry Order LIPID PANEL,FASTING PLASMA SP ONCE [facility] Social History: Smoking Status (Most current) and Tobacco Use (All prior to encounter date) This section includes the most current, and the historical, smoking and tobacco- related health factors from the [place] facility where the Encounter took place. Current Smoking Status This section includes the most current smoking, or tobacco-related health factor, from the [place] facility where the Encounter took place. Date/Time Current Smoking Status Comment Yajaira lorenzo Apr 14, 2023 09:30 AM VA-TOBACCO NEVER USED [facility] Advance Directives: All historical and current Section Date Range: From patient's date of to the date document was created. This section includes ALL of a patient's completed or amended [place] Advance and Rescinded Directives. The entries below indicate that a directive exists for the patient, but an actual copy is not included with this document. The data comes from all [facility]. Date Advance Directives Provider Source Apr 20, 2023 ADVANCE DIRECTIVE BISHOP TRAVIS [facility] Apr 20, 2023 ADVANCE DIRECTIVE DISCUSSION DELMY TRAVIS [facility] Encounter Notes: All associated encounter notes This section contains the clinical notes associated to the Encounter. Date/Time Encounter Note(s) Provider Source May 26, 2023 10:56 AM ENERGY ANALYST REFER RAL NOTE: LOCAL TITLE: TRAVELING COORDINATOR NOTE STANDARD TITLE: ENERGY ANALYST REFERRAL NOTE DATE OF NOTE: MAY 26, 2023@10:56 ENTRY DATE: MAY 26, 2023@10:56:30 AUTHOR: ROSA ROSEN EXP COSIGNER: URGENCY: STATUS: COMPLETED Please note, [facility] has scheduled requested oncology through [facility]. Please monitor JLV for records to be scanned or obtain records to review. SCHEDULED [facility] Consult Appt. on 06/03/23 @ 08:30 HSRM, CONSULT [id number] PID=[id number], 2023 's Preferred Provider [facility] [address] [place] [address], [address] P:[phone] F: [phone] ATTN: JULISSA marshall/ ROSA ROSEN RN UTILIZATIONMANAGEMENT Signed: 05/26/2023 10:57 Receipt Acknowledged By: 05/28/2023 14:36 /marilee/ Radha Miranda MD Primary Care Staff Physician ROSA ROSEN [facility]
--- OUTSIDE RECORDS SUMMARY | 2024-04-27 12:39 | XMS_ITS | Encounter Summary ---
Author Name [facility] [place] Address [address] [place] [address] Care Team Providers Care Client Service Professional Name Role Phone IRASEMA RUIZ Primary Care [...] Barrientos's Name Patient's Relationship to Policy Barrientos [facility] MEDICARE SUPPLEMEN LEE MEDIC ARE SUPPL EMENT May 24, 2018 [id number] Mai MALONE PATIENT [place] MEDIC ARE SUPPL EMENT May 24, 2018 [id number] Genny MALONE SPOUSE MEDICARE (WNR) MEDICARE (M) PART A Apr 23, 2011 PART A [id number] [phone] Mai MALONE PATIENT Selected Encounter This section includes the information on record at [place] for the Encounter. Date/Time Encounter Type Encounter Description Reason Provider Source Apr 21, 2024 03:00 PM Outpatient Encounter PRIMARY CARE/MEDICINE IRASEMA RUIZ [facility] Encounter Template Text not used by [facility] Lab Results: +/- 30 days of the encounter This section includes the Chemistry and Hematology Lab Results on record with [place] for the patient. Radiology Reports and Pathology Reports are provided separately, in subsequent sections. Lab Results This section contains the Chemistry/Hematology Results that were resulted 30 days before or 30 daysafter the date of the Encounter. Date/Time Source Result Type Result - Unit Interpretation Reference Range Comment Apr 21, 2024 01:50 PM [facility] ALBUMIN/CREATININE RATIO URINE Specimen Type: URINE No comment entered. Ordering Provider: IRASEMA RUIZ Report Released Date/Time: Apr 21, 2024 10:33 AM Reporting Lab: [facility] [address] Performing Lab: [facility] [address] CREATININE,U R RANDOM 105.8 mg/dL 58.0-161.0 ALB/CREAT RATIO,UR 3553.6 mg/g{creat} H <29.9 ALBUMIN,UR 3759.7 mg/L H <29.9 Apr 21, 2024 01:50 PM [facility] CBC Specimen Type: BLOOD No comment entered. Ordering Provider: IRASEMA RUIZ Report Released Date/Time: Apr 14, 2023 09:15 PM Reporting Lab: [facility] [address] Performing Lab: [facility] [address] WBC 4.9 4.0-11.0 RBC 4.15 L 4.60-6.20 HGB 13.3 g/dL L 13.5-17.9 HCT 40.5 L 41.0-54.0 MCV 97.6 fL 80.0-100.0 MCH 32.0 pg 27.0-33.0 MCHC 32.8 g/dL 32.0-37.5 PLT 139 L 150-400 MPV 10.6 fL 9.1-13.0 RDW 13.0 11.5-14.5 IPF 4.2 0-10 Apr 21, 2024 01:50 PM [facility] BASIC METABOLIC PANEL+MG Specimen Type: PLASMA No comment entered. Ordering Provider: IRASEMA RUIZ Report Released Date/Time: Apr 14, 2023 09:15 PM Reporting Lab: [facility] [address] Performing Lab: [facility] [address] CREATININE 1.3 mg/dL H 0.7-1.2 UREA NITROGEN 19 mg/dL 8-26 GLUCOSE 113 mg/dL H 70-100 SODIUM 139 mmol/L 136-145 POTASSIUM 4.0 mmol/L 3.5-5.1 CHLORIDE 109 mmol/L H 98-107 CO2 24 mmol/L 22-29 CALCIUM 8.5 mg/dL 8.4-10.2 MAGNESIUM 1.9 mg/dL 1.6-2.6 ANION GAP 6 mmol/L 5-15 .CREAT EGFR(CKD-EPI ) 56 L >60 Apr 21, 2024 01:50 PM [facility] AST/SGOT Specimen Type: PLASMA No comment entered. Ordering Provider: IRASEMA RUIZ Report Released Date/Time: Apr 14, 2023 09:15 PM Reporting Lab: [facility] [address] Performing Lab: [facility] [address] AST/SGOT 25 U/L 11-34 Apr 21, 2024 01:50 PM [facility] ALT/SGPT Specimen Type: PLASMA No comment entered. Ordering Provider: IRASEMA RUIZ Report Released Date/Time: Apr 14, 2023 09:15 PM Reporting Lab: [facility] [phone] Performing Lab: [facility] [address] ALT/SGPT 19 U/L <44 Apr 21, 2024 01:50 PM [facility] HEMOGLOBIN A1C Specimen Type: BLOOD Comment: Values obtained from A1C measurements can vary. For typical A1C assays, a reported value of 7.0 could actually be between 6.7 and 7.3 if measured by a reference method. A reported value of 9.0 could actually be between 8.7 and 9.3. Ref: http://www.ngs p.org/CAPdata. asp Ordering Provider: IRASEMA RUIZ Report Released Date/Time: Apr 14, 2023 09:15 PM Reporting Lab: [facility] [address] Performing Lab: [facility] [address] HEMOGLOBIN A1C 5.5 4.0-6.0 Apr 21, 2024 01:50 PM [facility] TSH W/REFLEX TO FREE T4 Specimen Type: PLASMA No comment entered. Ordering Provider: IRASEMA RUIZ Report Released Date/Time: Apr 14, 2023 09:15 PM Reporting Lab: [facility] [address] Performing Lab: [facility] [address] TSH 1.78 u[IU]/mL 0.35-4.94 Vital Signs: All taken on the encounter date This section contains inpatient and outpatient Vital Signs collected on the date of the Encounter. Date/Time Temperature Pulse Blood Pressure Respiratory Rate SP02 Pain Height Weight Body Mass Index Source Apr 21, 2024 02:58 PM 166/84 [facility] Apr 21, 2024 02:51 PM 98.3 64 168/82 17 97 0 70 166 24 [facility] Social History: Smoking Status (Most current) and Tobacco Use (All prior to encounter date) This section includes the most current, and the historical, smoking and tobacco- related health factors from the [place] facility where the Encounter took place. Current Smoking Status This section includes the most current smoking, or tobacco-related health factor, from the [place] facility where the Encounter took place. Date/Time Current Smoking Status Comment Yajaira itshavonne Apr 21, 2024 03:00 PM [place]-TOBACCO NEVER USED CIGARETTES [facility] Tobacco Use History This section includes a history of the smoking, or tobacco-related health factors, that were collected on or before the date of the Encounter. The data comes from the [place] facility where the Encounter took place. Date/Time Smoking Status/Tobacco Use Comment F acmerle Apr 21, 2024 03:00 PM VA-TOBACCO NEVER USED OTHER TYPE [facility] Apr 14, 2023 09:30 AM VA-TOBACCO NEVER USED [facility] Advance Directives: All historical and current Section Date Range: From patient's date of to the date document was created. This section includes ALL of a patient's completed or amended [place] Advance and Rescinded Directives. The entries below indicate that a directive exists for the patient, but an actual copy is not included with this document. The data comes from all [place] facilities. Date Advance Directives Provider Source Apr 20, 2023 ADVANCE DIRECTIVE BISHOP TRAVIS [facility] Apr 20, 2023 ADVANCE DIRECTIVE DISCUSSION DELMY TRAVIS [facility] Encounter Notes: All associated encounter notes This section contains the clinical notes associated to the Encounter. Date/Time Encounter Note(s) Provider Source Apr 21, 2024 02:54 PM INTERNAL MEDICINE OUTPATIENT NOTE: LOCAL TITLE: MEDICINE CLINIC NURSING NOTE STANDARD TITLE: INTERNAL MEDICINE OUTPATIENT NOTE DATE OF NOTE: APR 21, 2024@14:54 ENTRY DATE: APR 21, 2024@14:54:13 AUTHOR: CARLOS OGDEN COSIGNER: URGENCY: STATUS: COMPLETED TYPE OF VISIT: Appointment Check In Type of appointment: In-person appointment REASON FOR VISIT: ANNUAL ALLERGIES: SULFA DRUGS (Apr 14, 2023) VITAL SIGNS: Blood Pressure: 168/82 (04/21/2024 14:51) RECHECK 166/84 Pulse: 64 (04/21/2024 14:51) Respiration: 17 (04/21/2024 14:51) Temperature: 98.3 F [36.8 C] (04/21/2024 14:51) Weight: 166 lb [75.30 kg] (04/21/2024 14:51) Height: 70 in [177.8 cm] (04/21/2024 14:51) BMI: 23.9 O2 Sat: 97% (04/21/2024 14:51) Pain: 0 (04/21/2024 14:51) PAIN SCREEN: Patient is not having significant pain that they wish to discuss with their provider today. MEDICATION Active Outpatient Medications (including Supplies): Non-VA ACETAMINOPHEN 325MG TAB 650MG MOUTH TWO TIMES A DAY ACTIVE Non-VA DILTIAZEM (EQV-TIAZAC) 240MG 24HR CAP 240MG MOUTH ACTIVE EVERY DAY Non-VA LENVATINIB CAP,ORAL MOUTH ACTIVE Non-VA LEVOTHYROXINE NA (SYNTHROID) 100MCG TAB 100MCG ACTIVE MOUTH EVERY DAY Non-VA METOPROLOL TARTRATE TAB 12.5MG MOUTH TWICE A DAY ACTIVE Non-VA OMEPRAZOLE 20MG EC CAP 20MG MOUTH EVERY DAY ACTIVE Non-VA PEMBROLIZUMAB INJ,SOLN ACTIVE Non-VA TAMSULOSIN HCL 0.4MG CAP 0.8MG MOUTH EVERY DAY ACTIVE Over the Counter/Herbal Medications: The patient denies taking any outside medications or herbals. Suicide Screen: C-SSRS Screening [place]-Suicide Severity Rating Scale (C-SSRS Screener) 1. Over the past month, have you wished you were or wished you could go to sleep and not wake up? No 2. Over the past month, have you had any actual thoughts of killing yourself? No 3. Over the past month, have you been thinking about how you might do this? Response not required due to responses to other questions. 4. Over the past month, have you had these thoughts and had some intention of acting on them? Response not required due to responses to other questions. 5. Over the past month, have you started to work out or worked out the details of how to kill yourself? Response not required due to responses to other questions. 6. If yes, at any time in the past month did you intend to carry out this plan? Response not required due to responses to other questions. 7. In your lifetime, have you ever done anything, started to do anything, or prepared to do anything to end your life (for example, collected pills, obtained a gun, gave away valuables, went to the roof but didn't jump)? No 8. If YES, was this within the past 3 months? Response not required due to responses to other questions. Tobacco Use Screening: The patient has never smoked cigarettes. The patient has never used other types of tobacco. Depression Screening: Perform PHQ-2 A PHQ-2 screen was performed. The score was 0 which is a negative screen for depression. Over the past two weeks, how often have you been bothered by the following problems? 1. Little interest or pleasure in doing things Not at all 2. Feeling down, depressed, or hopeless Not at all Alcohol Use Screen (AUDIT-C): Alcohol Screen: SCREEN FOR ALCOHOL (AUDIT-C) An alcohol screening test (AUDIT-C) was negative (score=0). 1. How often did you have a drink containing alcohol in the past year? Consider a drink to be a 12 ounce can or bottle of regular beer, 8 ounces of malt liquor, a 5 ounce glass of table wine, or a 1.5 ounce shot of liquor (like scotch, gin, or vodka). Never 2. How many drinks containing alcohol did you have on a typical day when you were drinking in the past year? Response not required due to responses to other questions. 3. How often did you have six or more drinks on one occasion in the past year? Response not required due to responses to other questions. Nursing Annual Screening: Whole Health Screen is due OR due soon (within 90 days). Whole Health Screening Why is addressing your overall health important to you? LIVE GOOD What do you want your health for (why do you want to be healthy)? LIVE LONG Fall History Screen During the past 12 months, have you had any falls? Patient does not report any falls in the past 12 months. MEDICATIONS: Patient is on one of the following medication classes: Antihypertensives, Antidepressants, Antipsychotics, Diuretics, or Controlled substance medication used for pain. Script Talk Screen Are you able to read your prescription bottles with your glasses, magnifiers or other aids? Yes or patient not taking any prescriptions. Skin Screen Patient reports any current pressure ulcers, a history of pressure ulcers, or a wound from a medical nurse or Patient is bed-confined or a wheelchair-user or Patient requires assistance to transfer/change position No, Skin Screen is Negative Home Abuse/Violence Screen Is your home free of abuse and violence? Yes MOVE! Program Screen Body Mass Index (BMI)= 23.9 [place]: Collection DT Specimen Test Name Result Units Ref Range 04/21/2024 13:50 BLOOD !! HEMOGLOBIN A1C 5.5 % 4.0 - 6.0 !! Indicates COMMENTS AVAILABLE...Refer to Interim Lab Report. [place] Hgb A1C: No data available [place] Hgb A1C: No data available Point of Care Hgb A1C: POC HGB A1C____ Outpatient Nutrition Screen Body Mass Index (BMI)= 23.9 [place]: Collection DT Specimen Test Name Result Units Ref Range 04/21/2024 13:50 BLOOD !! HEMOGLOBIN A1C 5.5 % 4.0 - 6.0 !! Indicates COMMENTS AVAILABLE...Refer to Interim Lab Report. [place] Hgb A1C: No data available [place] Hgb A1C: No data available Point of Care Hgb A1C: POC HGB A1C____ Is patient's BMI less than 18.5? No Does patient have swallowing, coughing, or chewing problems affecting oral intake? No Has patient experienced unplanned weight loss or gain greater than 10 pounds over the last 2 months? No Is patient's Hgb A1C (Glycosylated Hemoglobin) greater than 9.5? No Is patient receiving Total Parenteral Nutrition (TPN) or Tube Feedings? No Patient Health Education Screen BARRIERS/SPECIAL NEEDS: Physical limitations Hearing limitations Visual limitations PREFERRED STYLE OF LEARNING: No preference stated Client Assistive Service (BETITO) Screen Does the patient require assistance with outpatient visit? No Homelessness/Food Insecurity Screen: In the past 2 months, have you been living in stable housing that you own, rent, or stay in as part of a household? Yes - Living in stable housing. Are you worried or concerned that in the next 2 months you may NOT have stable housing that you own, rent, or stay in as part of a household? No - Not worried about housing near future The reports the following: Within the past 12 months, you worried whether your food would run out before you got money to buy more. Never true Within the past 12 months, the food you bought just didn't last and you didn't have money to get more. Never true Food Assistance Programs [facility] Food Assistance Programs [facility] COVID-19 Immunization: Refused Pfizer Monovalent COVID-19 vaccine Immunization: COVID-19 (PFIZER), MRNA, LNP-S, PF, LUIS-SUCROSE, 30 MCG/0.3 ML (AGES 12+ YEARS) Refusal Reason: PATIENT DECISION Patient refuses all immunization(s) in the COVID-19 group Date Documented: 04/21/24 14:56 /marilee/ CARLOS Pruitt [facility] HEALTH SPRINKLER WORKER Signed: 04/21/2024 14:57 CARLOS OGDEN [facility]
--- OUTSIDE RECORDS SUMMARY | 2024-04-27 12:39 | XMS_ITS | Encounter Summary ---
Author Name [facility] [place] Address [address] [place] [address] Care Team Providers Care Herbicide Sprayer Name Role Phone BRENNARADHA LANGLEY Primary Care Provider Unavailabl e Insurance Providers: All historical and current Section Date Range: From patient's date of to the date document was created. This section includes the names of all active insurance providers for the patient. Insurance Provider Type of Coverage Plan Name Start of Policy Coverage End of Policy Coverage Group Number Member ID Insurance Provider's Telephone Number Policy Barrietnos's Name Patient's Relationship to Policy Barrientos [facility] MEDICARE SUPP[place]MEN [place] MEDIC ARE SUPPL EMENT May 24, 2018 [id number] Mai MALONE PATIENT [place] MED[place] SUPPL EMENT May 24, 2018 [id number] [phone] Genny MALONE SPOUSE MEDICARE (WNR) MEDICARE ([place]) PART A Apr 23, 2011 PART A [id number] [phone] Mai MALONE PATIENT Selected Encounter This section includes the information on record at [place] for the Encounter. Date/Time Encounter Type Encounter Description Reason Pro vider Source Apr 21, 2024 03:00 PM Outpatient Encounter PRIMARY CARE/MEDICINE IHE Encounter Template Text not used by [facility] Lab Results: +/- 30 days of the encounter This section includes the Chemistry and Hematology Lab Results on record with [place] for the patient. Radiology Reports and Pathology Reports are provided separately, in subsequent sections. Lab Results This section contains the Chemistry/Hematology Results that were resulted 30 days before or 30 daysafter the date of the Encounter. Date/Time Source Result Type Result - Unit Interpretation Reference Range Comment Apr 21, 2024 01:50 PM [facility] ALBUMIN/CREATININE RATIO URINE Specimen Type: URINE No comment entered. Ordering Provider: RADHA MIRANDA Report Released Date/Time: Apr 21, 2024 10:33 AM Reporting Lab: [facility] [phone] Performing Lab: [facility] [phone] CREATININE,U R RANDOM 105.8 mg/dL 58.0-161.0 ALB/CREAT RATIO,UR 3553.6 mg/g{creat} H <29.9 ALBUMIN,UR 3759.7 mg/L H <29.9 Apr 21, 2024 01:50 PM [facility] CBC Specimen Type: BLOOD No comment entered. Ordering Provider: RADHA MIRANDA Report Released Date/Time: Apr 14, 2023 09:15 PM Reporting Lab: [facility] [phone] Performing Lab: [facility] [address] WBC 4.9 4.0-11.0 RBC 4.15 L 4.60-6.20 HGB 13.3 g/dL L 13.5-17.9 HCT 40.5 L 41.0-54.0 MCV 97.6 fL 80.0-100.0 MCH 32.0 pg 27.0-33.0 MCHC 32.8 g/dL 32.0-37.5 PLT 139 L 150-400 MPV 10.6 fL 9.1-13.0 RDW 13.0 11.5-14.5 IPF 4.2 0-10 Apr 21, 2024 01:50 PM [facility] BASIC METABOLIC PANEL+MG Specimen Type: PLASMA No comment entered. Ordering Provider: RADHA MIRANDA Report Released Date/Time: Apr 14, 2023 09:15 PM Reporting Lab: [facility] [phone] Performing Lab: [facility] [address] CREATININE 1.3 mg/dL H 0.7-1.2 UREA NITROGEN 19 mg/dL 8-26 GLUCOSE 113 mg/dL H 70-100 SODIUM 139 mmol/L 136-145 POTASSIUM 4.0 mmol/L 3.5-5.1 CHLORIDE 109 mmol/L H 98-107 CO2 24 mmol/L 22-29 CALCIUM 8.5 mg/dL 8.4-10.2 MAGNESIUM 1.9 mg/dL 1.6-2.6 ANION GAP 6 mmol/L 5-15 .CREAT EGFR(CKD-EPI ) 56 L >60 Apr 21, 2024 01:50 PM [facility] AST/SGOT Specimen Type: PLASMA No comment entered. Ordering Provider: RADHA MIRANDA Report Released Date/Time: Apr 14, 2023 09:15 PM Reporting Lab: [facility] [phone] Performing Lab: [facility] [address] AST/SGOT 25 U/L 11-34 Apr 21, 2024 01:50 PM [facility] ALT/SGPT Specimen Type: PLASMA No comment entered. Ordering Provider: RADHA MIRANDA Report Released Date/Time: Apr 14, 2023 09:15 PM Reporting Lab: [facility] [address] Performing Lab: [facility] [address] ALT/SGPT 19 U/L <44 Apr 21, 2024 01:50 PM [facility] HEMOGLOBIN A1C Specimen Type: BLOOD Comment: Values obtained from A1C measurements can vary. For typical A1C assays, a reported value of 7.0 could actually be between 6.7 and 7.3 if measured by a reference method. A reported value of 9.0 could actually be between 8.7 and 9.3. Ref: http://www.ngs p.org/CAPdata. asp Ordering Provider: RADHA MIRANDA Report Released Date/Time: Apr 14, 2023 09:15 PM Reporting Lab: [facility] [phone] Performing Lab: [facility] [phone] HEMOGLOBIN A1C 5.5 4.0-6.0 Apr 21, 2024 01:50 PM [facility] TSH W/REFLEX TO FREE T4 Specimen Type: PLASMA No comment entered. Ordering Provider: RADHA MIRANDA Report Released Date/Time: Apr 14, 2023 09:15 PM Reporting Lab: [facility] [address] Performing Lab: [facility] [address] TSH 1.78 u[IU]/mL 0.35-4.94 Vital Signs: All taken on the encounter date This section contains inpatient and outpatient Vital Signs collected on the date of the Encounter. Date/Time Temperature Pulse Blood Pressure Respiratory Rate SP02 Pain Height Weight Body Mass Index Source Apr 21, 2024 02:58 PM 166/84 [facility] Apr 21, 2024 02:51 PM 98.3 64 168/82 17 97 0 70 166 24 [facility] Social History: Smoking Status (Most current) and Tobacco Use (All prior to encounter date) This section includes the most current, and the historical, smoking and tobacco- related health factors from the [place] facility where the Encounter took place. Current Smoking Status This section includes the most current smoking, or tobacco-related health factor, from the [place] facility where the Encounter took place. Date/Time Current Smoking Status Comment Yajaira ity Apr 21, 2024 03:00 PM [place]-TOBACCO NEVER USED CIGARETTES [facility] Tobacco Use History This section includes a history of the smoking, or tobacco-related health factors, that were collected on or before the date of the Encounter. The data comes from the [place] facility where the Encounter took place. Date/Time Smoking Status/Tobacco Use Comment F acmerle Apr 21, 2024 03:00 PM VA-TOBACCO NEVER USED OTHER TYPE [facility] Apr 14, 2023 09:30 AM VA-TOBACCO NEVER USED [facility] Advance Directives: All historical and current Section Date Range: From patient's date of to the date document was created. This section includes ALL of a patient's completed or amended [place] Advance and Rescinded Directives. The entries below indicate that a directive exists for the patient, but an actual copy is not included with this document. The data comes from all [place] facilities. Date Advance Directives Provider Source Apr 20, 2023 ADVANCE DIRECTIVE BISHOP TRAVIS [facility] Apr 20, 2023 ADVANCE DIRECTIVE DISCUSSION DELMY TRAVIS [facility] Encounter Notes: All associated encounter notes This section contains the clinical notes associated to the Encounter. Date/Time Encounter Note(s) Provider Source Apr 21, 2024 03:51 PM ADMINISTRATIVE NOT E: LOCAL TITLE: AFTER VISIT SUMMARY NOTE STANDARD TITLE: ADMINISTRATIVE NOTE DICT DATE: APR 21, 2024@15:51:10 ENTRY DATE: APR 21, 2024@15:51:11 DICTATED BY: RADHA MIRANDA EXP COSIGNER: URGENCY: STATUS: COMPLETED The patient was provided with a copy of an after-visit summary at the conclusion of the visit. A copy of the after-visit summary provided to the patient is available in [facility] [employer] [facility]. SCANNED DOCUMENT SIGNATURE NOT REQUIRED Electronically Filed: 04/21/2024 by: Radha Miranda MD Primary Care Staff Physician RADHA MIRANDA [facility]
--- OUTSIDE RECORDS SUMMARY | 2024-04-27 12:39 | XMS_ITS | Encounter Summary ---
Author Name [facility] [place] Address [address] [place] [address] Care Team Providers Care Mold Burner Name Role Phone BRENNAIRASEMA LANGLEY Primary Care [...] Barrientos's Name Patient's Relationship to Policy Barrientos [place] MEDIC ARE SUPPL EMENT May 24, 2018 [id number] [phone] Mai MALONE PATIENT [place] MEDICARE SUPP[place] MEDIC ARE SUPPL EMENT May 24, 2018 [id number] [phone] Genny MALONE SPOUSE MEDICARE (WNR) MEDICARE ([place]) PART A Apr 23, 2011 PART A [id number] [phone] Mai MALONE PATIENT Selected Encounter This section includes the information on record at [place] for the Encounter. Date/Time Encounter Type Encounter Description Reason Pro vider Source Mar 09, 2024 12:00 AM Outpatient Encounter EVENT (HISTORICAL) IHE Encounter Template Text not used by [place] Plan of Treatment: Future Appointments (+ 6 months) and Future Tests (+/- 45 days) The Plan of Treatment section includes future care activities for the patient from all [place] treatmentfacilities. This section includes future appointments and future orders which are active, pending or scheduled. Future Appointments This section includes appointments that were scheduled to occur 6 months from the date of the Encounter, up to a maximum of 20 appointments. The data comes from all [place] treatment facilities. Appointment Date/Time Appointment Type Appointme nt Facility Name Apr 21, 2024 02:00 PM AMBULATORY - NONE [facility] Apr 21, 2024 03:00 PM AMB[facility]ORY - [facility]IC[facility] Immunizations: All administered on the encounter date This section contains immunizations associated to the Encounter. Immunization Series Date Issued Reaction Comments INFLUENZA, HIGH-DOSE, TRIVALENT, PF Mar 09 Social History: Smoking Status (Most current) and Tobacco Use (All prior to encounter date) This section includes the most current, and the historical, smoking and tobacco- related health factors from the [place] facility where the Encounter took place. Current Smoking Status This section includes the most current smoking, or tobacco-related health factor, from the [place] facility where the Encounter took place. Date/Time Current Smoking Status Jessika Yajaira lorenzo Apr 14, 2023 09:30 AM VA-TOBACCO NEVER USED [facility] Advance Directives: All historical and current Section Date Range: From patient's date of to the date document was created. This section includes ALL of a patient's completed or amended [place] Advance and Rescinded Directives. The entries below indicate that a directive exists for the patient, but an actual copy is not included with this document. The data comes from all [place] facilities. Date Advance Directives Provider Source Apr 20, 2023 ADVANCE DIRECTIVE BISHOP TRAVIS [facility] Apr 20, 2023 ADVANCE DIRECTIVE DISCUSSION DELMY TRAVIS [facility]
--- OUTSIDE RECORDS SUMMARY | 2024-04-27 12:39 | XMS_ITS | Encounter Summary ---
Author Name [facility] [place] [facility] [place] Organization [facility] [place] Address [address] [place] [address] Care Team Providers Care Quality Intern Name Role Phone IRASEMA RUIZ Primary Care [...] Barrientos's Name Patient's Relationship to Policy Barrientos [facility] MEDICARE SUPPLEMEN [place] MEDIC ARE SUPPL EMENT May 24, 2018 [id number] [phone] [facility] [place] MEDIC ARE SUPPL EMENT May 24, 2018 [id number] [phone] Genny MALONE SPOUSE MEDICARE (WNR) MEDICARE (M) PART A Apr 23, 2011 PART A [id number] [phone] Mai MALONE PATIENT Selected Encounter This section includes the information on record at [place] for the Encounter. Date/Time Encounter Type Encounter Description Reason Provider Source May 03, 2023 08:20 AM Outpatient Encounter ADMIN PAT ACTIVTIES (MASNONCT) ROSA ROSEN Encounter Template Text not used by [place] Plan of Treatment: Future Appointments (+ 6 months) and Future Tests (+/- 45 days) The Plan of Treatment section includes future care activities for the [facility] [place] [facility] This section includes future appointments and future orders which are active, pending or scheduled. Future Appointments This section includes appointments that were scheduled to occur 6 months from the date of the Encounter, up to a maximum of 20 appointments. The data comes from all [facility] facilities. Appointment Date/Time Appointment Type Appointme nt Facility Name Jun 03, 2023 08:30 AM AMBULATORY - [facility] Active, Pending, and Scheduled Orders This section includes a listing of several types of active, pending, and scheduled orders, including clinic medications orders, diagnostic test orders, procedure orders and consult orders; where thestart date of the order is 45 days before the date of the Encounter or 45 days after the date of the Encounter. The data comes from all [facility]. Test Date/Time Test Type Test Details Facility Name Apr 14, 2023 12:00 AM Laboratory - Chemi stry Order LIPID PANEL,FASTING PLASMA SP ONCE [facility] Lab Results: +/- 30 days of the encounter This section includes the Chemistry and Hematology Lab Results on record with [place] for the patient. Radiology Reports and Pathology Reports are provided separately, in subsequent sections. Lab Results This section contains the Chemistry/Hematology Results that were resulted 30 days before or 30 daysafter the date of the Encounter. Date/Time Source Result Type Result - Unit Interpretation Reference Range Comment Apr 14, 2023 11:17 AM [facility] CBC Specimen Type: BLOOD No comment entered. Ordering Provider: IRASEMA RUIZ Report Released Date/Time: Apr 14, 2023 10:20 AM Reporting Lab: [facility] [phone] Performing Lab: [facility] [address] WBC 5.07 10*3/uL 4.0-11.0 RBC 4.00 10*6/uL L 4.6-6.2 HGB 13.2 g/dL L 13.5-17.9 HCT 39.1 L 41-54 MCV 97.8 fL 80-100 MCH 33.0 pg 27-33 MCHC 33.8 g/dL 32.0-37.5 PLT 151 10*3/uL 150-400 MPV 10.4 fL 7.4-10.4 RDW 12.8 11.5-14.5 Apr 14, 2023 11:17 AM [facility] COMPREHENSIVE METABOLIC PANEL+MG Specimen Type: PLASMA Comment: Elevated triglyceride result from a non-fasting specimen should be interpreted with caution. A fasting panel is recommended for accurate triglycerides when trigs are >200 from a non-fasting specimen. Triglyceride concentration > 400 mg/dL. LDL and VLDL calculations cancelled, LDL measured by direct analysis. Ordering Provider: IRASEMA RUIZ Report Released Date/Time: Apr 14, 2023 10:20 AM Reporting Lab: [facility] [phone] Performing Lab: [facility] [phone] CREATININE 1.4 mg/dL H 0.7-1.2 UREA NITROGEN 25 mg/dL 8-26 GLUCOSE 132 mg/dL H 70-100 SODIUM 138 mmol/L 136-145 POTASSIUM 5.5 mmol/L H 3.5-5.1 CHLORIDE 109 mmol/L H 98-107 CO2 23 mmol/L 22-29 CALCIUM 9.1 mg/dL 8.4-10.2 PROTEIN,TOTAL 7.6 g/dL 6.0-8.3 ALBUMIN 3.8 g/dL 3.5-5.2 BILIRUBIN, TOTAL 0.4 mg/dL 0.2-1.2 MAGNESIUM 2.5 mg/dL 1.6-2.6 ANION GAP 6 mmol/L 5-15 ALKALINE PHOSPHATASE 72 U/L 40-150 ALT/SGPT 20 U/L <55 AST/SGOT 35 U/L H <34 .CREAT EGFR(CKD-EPI) 51 L >60 Apr 14, 2023 11:17 AM [facility] HEMOGLOBIN A1C Specimen Type: BLOOD Comment: [...] Apr 14, 2023 10:20 AM Reporting Lab: [facility] [phone] Performing Lab: [facility] [address] HEMOGLOBIN A1C 5.8 4.0-6.0 Apr 14, 2023 11:17 AM [facility] TSH W/REFLEX TO FREE T4 Specimen Type: PLASMA Comment: Elevated triglyceride result from a non-fasting specimen should be interpreted with caution. A fasting panel is recommended for accurate triglycerides when trigs are >200 from a non-fasting specimen. Triglyceride concentration > 400 mg/dL. LDL and VLDL calculations cancelled, LDL measured by direct analysis. Ordering Provider: IRASEMA RUIZ Report Released Date/Time: Apr 14, 2023 10:20 AM Reporting Lab: [facility] [phone] Performing Lab: [facility] [address] TSH 1.17 u[IU]/mL 0.35-4.94 Apr 14, 2023 11:17 AM [facility] LIPID PANEL,NON-FASTING Specimen Type: PLASMA Comment: Elevated triglyceride result from a non-fasting specimen should be interpreted with caution. A fasting panel is recommended for accurate triglycerides when trigs are >200 from a non-fasting specimen. Triglyceride concentration > 400 mg/dL. LDL and VLDL calculations cancelled, LDL measured by direct analysis. Ordering Provider: IRASEMA RUIZ Report Released Date/Time: Apr 14, 2023 10:20 AM Reporting Lab: [facility] [phone] Performing Lab: [facility] [phone] CHOLESTEROL 224 mg/dL H <199 .HDL 32 mg/dL L >40 LDL CALCULATION canc mg/dL <99 VLDL CALCULATION canc mg/dL <29 NON HDL CHOLESTEROL 192 mg/dL H <129 TRIG(NON FASTING) 742 mg/dL H <149 MEASURED LDL 92 mg/dL <99 Social History: Smoking Status (Most current) and Tobacco Use (All prior to encounter date) This section includes the most current, and the historical, smoking and tobacco- related health factors from the [place] facility where the Encounter took place. Current Smoking Status This section includes the most current smoking, or tobacco-related health factor, from the [place] facility where the Encounter took place. Date/Time Current Smoking Status Comment Yajaira lorenzo Apr 14, 2023 09:30 AM VA-TOBACCO NEVER USED [facility] Advance Directives: All historical and current Section Date Range: From patient's date of to the date document was created. This section includes ALL of a patient's completed or amended [place] Advance and Rescinded Directives. The entries below indicate that a directive exists for the patient, but an actual copy is not included with this document. The data comes from all [place] facilities. Date Advance Directives Provider Source Apr 20, 2023 ADVANCE DIRECTIVE BISHOP TRAVIS [facility] Apr 20, 2023 ADVANCE DIRECTIVE DISCUSSION DELMY TRAVIS [facility] Encounter Notes: All associated encounter notes This section contains the clinical notes associated to the Encounter. Date/Time Encounter Note(s) Provider Source May 03, 2023 08:20 AM MARKETING AMBASSADOR REFER RAL NOTE: LOCAL TITLE: TRAVELING COORDINATOR NOTE STANDARD TITLE: MARKETING AMBASSADOR REFERRAL NOTE DATE OF NOTE: MAY 03, 2023@08:20 ENTRY DATE: MAY 03, 2023@08:20:52 AUTHOR: ROSA ROSEN EXP COSIGNER: URGENCY: STATUS: COMPLETED Traveling Vet consult activity for: incoming/outgoing consult care coordination, communication &/or chart review. /marilee/ ROSA ROSEN RN UTILIZATIONMANAGEMENT Signed: 05/03/2023 08:21 ROSA ROSEN [facility]
--- OUTSIDE RECORDS SUMMARY | 2024-04-27 12:39 | XMS_ITS | Encounter Summary ---
Author Name [facility] [place] Organization [facility] [place] [place] Address [address] [place] [address] Care Team Providers Care Pharmacovigilance Scientist Name Role Phone IRASEMA RUIZ Primary Care [...] Barrientos's Name Patient's Relationship to Policy Barrientos [facility] MEDICARE SUPPLEMEN LEE MEDIC ARE SUPPL EMENT May 24, 2018 [id number] [phone] Mai [facility]ONE [facility]IENT [facility] SUPPLEMEN [place] MEDIC ARE SUPPL EMENT May 24, 2018 [id number] [phone] Genny MALONE SPOUSE MEDICARE (WNR) MEDICARE ([place]) PART A Apr 23, 2011 PART A [id number] [phone] Mai MALONE PATIENT Selected Encounter This section includes the information on record at [place] for the Encounter. Date/Time Encounter Type Encounter Description Reason Provider Source May 10, 2023 07:24 AM Outpatient Encounter ADMIN PAT ACTIVTIES (MASNONCT) ROSA ROSEN Encounter Template Text not used by [place] Plan of Treatment: Future Appointments (+ 6 months) and Future Tests (+/- 45 days) The Plan of Treatment section includes future care activities for the patient from [facility]. This section includes future appointments and future orders which are active, pending or scheduled. Future Appointments This section includes appointments that were scheduled to occur 6 months from the date of the Encounter, up to a maximum of 20 appointments. The data comes from all [facility] facilities. Appointment Date/Time Appointment Type Appointme nt Facility Name Jun 03, 2023 08:30 AM [facility]ULATORY - [facility] Active, Pending, and Scheduled Orders This section includes a listing of several types of active, pending, and scheduled orders, including clinic medications orders, diagnostic test orders, procedure orders and consult orders; where thestart date of the order is 45 days before the date of the Encounter or 45 days after the date of the Encounter. The data comes from all [facility]. Test Date/Time Test Type Test Details Facility Name Apr 14, 2023 12:00 AM Laboratory - Chemi stry Order LIPID PANEL,FASTING PLASMA SP ONCE [facility] Lab Results: +/- 30 days of the encounter This section includes the Chemistry and Hematology Lab Results on record with [place] for the patient. Radiology Reports and Pathology Reports are provided separately, in subsequent sections. Lab Results This section contains the Chemistry/Hematology Results that were resulted 30 days before or 30 daysafter the date of the Encounter. Date/Time Source Result Type Result - Unit Interpretation Reference Range Comment Apr 14, 2023 11:17 AM [facility] CBC Specimen Type: BLOOD No comment entered. Ordering Provider: IRASEMA RUIZ Report Released Date/Time: Apr 14, 2023 10:20 AM Reporting Lab: [facility] [id number] Performing Lab: [facility] [id number] WBC 5.07 10*3/uL 4.0-11.0 RBC 4.00 10*6/uL L 4.6-6.2 HGB 13.2 g/dL L 13.5-17.9 HCT 39.1 L 41-54 MCV 97.8 fL 80-100 MCH 33.0 pg 27-33 MCHC 33.8 g/dL 32.0-37.5 PLT 151 10*3/uL 150-400 MPV 10.4 fL 7.4-10.4 RDW 12.8 11.5-14.5 Apr 14, 2023 11:17 AM [facility] COMPREHENSIVE METABOLIC PANEL+MG Specimen Type: PLASMA [...] Apr 14, 2023 10:20 AM Reporting Lab: [facility] [id number] Performing Lab: [facility] [id number] CREATININE 1.4 mg/dL H 0.7-1.2 UREA NITROGEN [...] L >60 Apr 14, 2023 11:17 AM [facility] HEMOGLOBIN A1C Specimen Type: BLOOD Comment: [...] Apr 14, 2023 10:20 AM Reporting Lab: [facility] [id number] Performing Lab: [facility] [id number] HEMOGLOBIN A1C 5.8 4.0-6.0 Apr 14, 2023 11:17 AM [facility] TSH W/REFLEX TO FREE T4 Specimen [...] Apr 14, 2023 10:20 AM Reporting Lab: [facility] [id number] Performing Lab: [facility] [id number] TSH 1.17 u[IU]/mL 0.35-4.94 Apr 14, 2023 11:17 AM [facility] LIPID PANEL,NON-FASTING Specimen Type: PLASMA Comment: [...] Apr 14, 2023 10:20 AM Reporting Lab: [facility] [id number] Performing Lab: [facility] [id number] CHOLESTEROL 224 mg/dL H <199 .HDL 32 [...] and tobacco- related health factors from the [place] facility where the Encounter took place. Current Smoking Status This section includes the most current smoking, or tobacco-related health factor, from the [place] facility where the Encounter took place. Date/Time Current Smoking Status Comment Yajaira lorenzo Apr 14, 2023 09:30 AM VA-TOBACCO NEVER USED [facility] Advance Directives: All historical and current Section Date Range: From patient's date of to the date document was created. This section includes ALL of a patient's completed or amended [place] Advance and Rescinded Directives. The entries below indicate that a directive exists for the patient, but an actual copy is not included with this document. The data comes from all [place] facilities. Date Advance Directives Provider Source Apr 20, 2023 ADVANCE DIRECTIVE BISHOP TRAVIS [facility] Apr 20, 2023 ADVANCE DIRECTIVE DISCUSSION DELMY TRAVIS [facility] Encounter Notes: All associated encounter notes This section contains the clinical notes associated to the Encounter. Date/Time Encounter Note(s) Provider Source May 10, 2023 07:24 AM APPLICATIONS MANAGER REFER RAL NOTE: LOCAL TITLE: TRAVELING COORDINATOR NOTE STANDARD TITLE: APPLICATIONS MANAGER REFERRAL NOTE DATE OF NOTE: MAY 10, 2023@07:24 ENTRY DATE: MAY 10, 2023@07:25:09 AUTHOR: ROSA ROSEN EXP COSIGNER: URGENCY: STATUS: COMPLETED Traveling Vet consult activity for: incoming/outgoing consult care coordination, communication &/or chart review. /marilee/ ROSA ROSEN RN UTILIZATIONMANAGEMENT Signed: 05/10/2023 07:25 ROSA ROSEN [facility]
--- OUTSIDE RECORDS SUMMARY | 2024-04-27 12:40 | XMS_ITS | Referral Summary ---
Author Organization [facility] Address [address] [place] [address]. 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 Gender Identity Not on file Sexual Orientation Not on file Last Filed Vital Signs Vital Sign Reading Time Taken Comments Blood Pressure - - Pulse - - Temperature - - Respiratory Rate - - Oxygen Saturation - - Inhaled Oxygen Concentration - - Weight 93 kg (205 lb) 04/17/2008 11:00 AM JOB PLACEMENT COUNSELOR Height 177.8 cm (5' 10) 04/17/2008 11:00 AM JOB PLACEMENT COUNSELOR Body Mass Index 29.41 04/17/2008 11:00 AM JOB PLACEMENT COUNSELOR Plan of Treatment Not on file Procedures Procedure Name Priority Date/Time Associated Diagnosis Comments COLONOSCOPY Routine 09/18/2009 9:35 AM CDT from Last 3 Months or Most Recently Relevant to Health Maintenance Results * COLONOSCOPY (09/18/2009 9:35 AM CDT) COLONOSCOPY [facility] Patient Name: Rita Wesley Gender: M Procedure Date: 09/18/2009 9:35 AM Date of : 1945 Age: 64 Admit Type: Outpatient Attending MD: Han Moffett MD Procedure: Colonoscopy Indications: Average risk screening for malignant neoplasm in the colon Providers: Han Moffett MD Referring MD: Hugo Steven MD Medicines: Fentanyl 100 micrograms IV, Midazolam 1.5 mg IV, Atropine 0.6 mg IV Complications: No immediate complications Procedure: - Prior to the procedure, a History and Physical was performed, and patient medication allergies were reviewed. The patient is competent. The risks and benefits of the procedure and the sedation options and risks were discussed with the patient. All questions were answered and informed consent was obtained. Patient identification and proposed procedure were verified by the physician in the procedure room. Mental Status Examination: alert and oriented. Airway Examination: normal oropharyngeal airway and neck mobility. Respiratory Examination: clear to auscultation. CV Examination: normal. ASA Grade Assessment: I - A normal, healthy patient. After reviewing the risks and benefits, the patient was deemed in satisfactory condition to undergo the procedure. The anesthesia plan was to use moderate sedation / analgesia (conscious sedation). Immediately prior to administration of medications, the patient was re-assessed for adequacy to receive sedatives. The heart rate, respiratory rate, oxygen saturations, blood pressure, adequacy of pulmonary ventilation, and response to care were monitored throughout the procedure. The physical status of the patient was re-assessed after the procedure. After obtaining informed consent, the colonoscope was passed under direct vision. Throughout the procedure, the patient's blood pressure, pulse, and oxygen saturations were monitored continuously. The Colonoscope P-17 #[id number] was introduced through the anus and advanced to the cecum, identified by appendiceal orifice & IC valve. The colonoscopy was performed without difficulty. The patient tolerated the procedure well. The quality of the prep was good. Findings: The digital rectal exam was normal. Multiple small and large-mouthed diverticula were found in the sigmoid colon. The rectum, descending colon, splenic flexure, transverse colon, hepatic flexure, ascending colon, cecum and ileocecal valve appeared normal. The retroflexed view of the anal verge was normal and showed no anal or rectal abnormalities. Impression: - Diverticulosis sigmoid colon. - The rectum, descending colon, splenic flexure, transverse colon, hepatic flexure, ascending colon, cecum and ileocecal valve are normal. Recommendation: - Discharge patient to home (ambulatory). - Collect Hemoccults on three spontaneously passed stools annually. - Flexible Sigmoidoscopy in 3 years. - Return to primary care physician PRN. Genny Moffett M.D Han Moffett MD Signed Date: 09/18/2009 10:29 AM Number of Addenda: 0 I was physically present for the entire viewing portion of the exam. Note initiated on 09/18/2009 9:34 AM RADIOLOGY RESULTS 09/18/2009 9:35 AM CDT us Hugo Steven MD PROCEDURES Final Result RADIOLOGY RESULTS from Last 3 Months or Most Recently Relevant to Health Maintenance Insurance [place] [id number] [place] Care Teams Net Developer Contract Relationship Specialty Start Date End Date Beto Anne MD PCP - General Family Medicine 01/05/22
--- OUTSIDE RECORDS SUMMARY | 2024-04-27 12:40 | XMS_ITS | Clinical Summary ---
Author Organization [facility] Address [address] [place] [address] Phone Care Team Providers Care Biology Tutor Name Role Phone Beto Anne MD Primary Care Provider [phone] Allergies Active Allergy Reactions Criticality Noted Date Comments Metformin nausea Low 12/26/2021 Mirtazapine fatigue Medium 03/21/2024 Extreme fatigue slept all day after 1 pill. Sulfa Antibiotics Hives Medium 11/15/2017 Sulfacetamide Medium 03/30/2024 Medications Medication Sig Dispensed Refills Start Date End Date Status acetaminophen (TYLENOL) 325 MG capsule 500 mg once daily as needed 12/01/2021 Active Blood Glucose Calibration (OT ULTRA/FASTTK CNTRL SOLN) solution 11/23/2017 Active glucose blood (OneTouch Ultra) test strip 11/23/2017 Active Lancets (onetouch ultrasoft) lancets 11/23/2017 Active metoprolol tartrate (LOPRESSOR) 25 MG tablet Take 12.5 mg by mouth in the morning and 12.5 mg in the evening. 05/03/2020 Active Pembrolizumab (Keytruda) 100 MG/4ML solution Infuse into a venous catheter 01/29/2022 Active tamsulosin (FLOMAX) 0.4 MG 24 hr capsule Take 0.8 mg by mouth in the morning. 11/01/2017 Active Hydrocortisone, Perianal, 2.5 % cream 12/12/2022 Active dilTIAZem CD (CARDIZEM CD) 240 MG 24 hr capsule Take 240 mg by mouth 1 (one) time each day 12/01/2022 Active clotrimazole-beta methasone (LOTRISONE) cream Apply topically 2 (two) times a day 09/10/2022 Active Lenvatinib Mesylate (LENVIMA, 10 MG DAILY DOSE, PO) Take 10 mg by mouth 1 (one) time each day Active omeprazole (PriLOSEC) [address] capsule Take 20 mg by mouth 1 (one) time each day 03/10/2024 Active levothyroxine (SYNTHROID) 100 MCG tablet Take 100 mcg by mouth 1 (one) time each day 02/21/2024 Active losartan (COZAAR) 25 MG tabletIndications :Stage 3a chronic kidney disease (CMS-HCC),Essenti al hypertension,Prot einuria, not otherwise specified Take 1 tablet (25 mg total) by mouth 1 (one) time each day 30 tablet 1 04/06/2024 06/05/2024 Active hydrALAZINE (APRESOLINE) 50 MG tablet Take 1 tablet (50 mg total) by mouth in the morning and 1 tablet (50 mg total) in the evening and 1 tablet (50 mg total) before bedtime. 90 tablet 1 04/25/2024 06/24/2024 Active hydrALAZINE (APRESOLINE) 50 MG tablet Take 50 mg by mouth in the morning and 50 mg in the evening and 50 mg before bedtime. 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 Lopez; txf to [place] desired Stage 3 chronic kidney disease 08/26/2022 Renal mass 08/25/2022 Anemia 06/17/2022 Gastroesophageal reflux disease 06/17/2022 Hypertensive disorder 06/17/2022 Hypothyroidism 06/17/2022 Metastatic renal cell carcinoma 06/17/2022 Renal insufficiency 06/17/2022 Type 2 diabetes mellitus without complication Nuclear sclerosis 04/11/2021 Overview (08/25/2022): Added automatically from request for surgery [id number] Encounters Date Type Department Care Team Description 04/25/2024 Telephone [address] [place] [address] Leydi Quiroz RN 04/13/2024 Telephone [facility] [address] [address] [place] [address] Leydi Quiroz RN 04/06/2024 2:00 PM PACKAGE CAR DRIVER Office Visit [facility] [address] [place] [address] Christina Coelho PA Essential hypertension (Primary Dx); Stage 3a chronic kidney disease (CMS-HCC); Proteinuria, not otherwise specified; S/P nephrectomy 03/21/2024 9:00 AM CDT Office Visit [facility] [address] [place] [address] Aneta Dyer MD Stage 3 chronic kidney disease, not otherwise specified (CMS-HCC) (Primary Dx); Vitamin D deficiency, not otherwise specified; Benign prostatic hyperplasia; Elevated prostate specific antigen (PSA); Atrial fibrillation, not otherwise specified (CMS-HCC); Hypertensive disorder; Metastatic renal cell carcinoma <Right side> (CMS-HCC); Type 2 diabetes mellitus without complication (CMS-HCC) from Last 3 Months Immunizations Name Administration Dates Next Due Fluzone High-Dose 04/03/2023,03/10/2022,03/22/20 20 H1N1 All Forms 05/13/2009 Influenza Recombinant Joseluis valent Injectable Preservative Free 03/24/2021 Influenza Split High Dose Pr eservative Free IM 03/10/2022,03/14/2018,03/25/2017,03/24,04/02/2015 Influenza, Injectable, Quadr ivalent, Preservative Free 03/24/2021,03/24/2019,03/14/2018,03/25,03/24/2016,04/02/2015,05/13/2009 Pfizer Sars-cov-2 Vaccination 04/14/2023,12/15/2 022 Pneumococcal Conjugate 13-Valent 06/28/2013 Pneumococcal Conjugate 20-Valent 03/12/2023 Pneumococcal Polysaccharide 09/04/2009 TD Preservative Free 10/31/2015 Td 10/31/2015 Zoster 10/25/2014 Zoster Recombinant 11/14/2018,09/10/2018 Family History Medical History Relation Comments Cancer Brother Diabetes Brother Alcohol abuse Daughter Cancer Father Arthritis Mother Hearing loss Mother Miscarriages / Stillbirths Mother Alcohol abuse Son Relation Status Comments Brother Daughter Father Mother Son Social History Tobacco Use Types Packs/Day Years Used Date Smoking Tobacco: Never Passive Smoke Exposure: Never Smokeless Tobacco: Never Tobacco Cessation:Counseling Given: No Alcohol Use Standard Drinks/Week Comments Yes 0 (1 standard drink = 0.6 oz pur e alcohol) Rare Sex and Gender Information Value Date Recorded Sex Assigned at Not on file Gender Identity Not on file Sexual Orientation Not on file Last Filed Vital Signs Vital Sign Reading Time Taken Comments Blood Pressure 162/84 04/06/2024 2:44 PM PACKAGE CAR DRIVER Pulse 59 04/06/2024 2:08 PM PACKAGE CAR DRIVER Temperature 36.3 C (97.4 F) 04/06/2024 2:08 PM PACKAGE CAR DRIVER Respiratory Rate - - Oxygen Saturation 98% 12/22/2022 1:35 PM CDT Inhaled Oxygen Concentration - - Weight 75.8 kg (167 lb) 04/06/2024 2:08 PM PACKAGE CAR DRIVER Height 177.8 cm (5' 10) 12/22/2022 1:35 PM CDT Body Mass Index 23.96 12/22/2022 1:35 PM CDT Plan of Treatment Upcoming Encounters Date Type Department Care Team (Late st Contact Info) Description 05/11/2024 3:00 PM PACKAGE CAR DRIVER [facility] [address] [facility] [address] [address] [place] [address] Christina Coelho PA [address] [facility] [address] [place], [place] [id number] Health Maintenance Due Date Last Done Comments Diabetic Foot Exam 1955 COVID-19 Vaccine (4 2022-2 4 season) 2024 04/14/2023, 05/07/2022, 02/25/2021 Influenza Vaccine (#1) 2024 , 03/24/2021, 03/24/2019, Additional history exists Ophthalmology Exam 02/13/2025 02/14/2024, 02/11/2023 Pneumococcal PPSV23/PCV13 65 + Years / High and Highest Risk Completed 06/28/2013, 09/04/2009 Care Teams Biology Tutor Relationship Specialty Start Date End Date Beto Anne MD [address] [place] [address] PCP - General 08/26/22
--- OUTSIDE RECORDS SUMMARY | 2024-04-27 12:40 | XMS_ITS | Clinical Summary ---
Author Organization [facility] Address [place], [place] [address] Care Team Providers Care Forming Roll Operator Name Role Phone Beto Anne MD Primary Care Provider [phone] Allergies Active Allergy Reactions Criticality Noted Date Comments Metformin GI Upset 01/06/2022 Sulfa (Sulfonamide Antibiotics) Hives 12/22 Medications Medication Sig Dispensed Refills Start Date End Date Status dilTIAZem CD (CARDIZEM CD) 240 mg extended release 24 hr capsuleIndications:He art palpitations Take 1 capsule by mouth once daily. Further refills at [facility] appt 90 capsule 02/28/2020 Active metoprolol tartrate (LOPRESSOR) as half tablet Take 12.5 mg by mouth two times daily. 0 05/03/2020 Active glipiZIDE extended-release (GLUCOTROL XL) 2.5 mg Extended-Release tablet Take 2.5 mg by mouth once daily before a meal. 04/30/2021 Active tamsulosin (FLOMAX) 0.4 mg capsule Take 0.4 mg by mouth once daily after a meal. 11/10/2021 Active omeprazole (PRILOSEC) 20 mg Delayed-Release capsule Take 20 mg by mouth once daily before a meal. Active pembrolizumab (Keytruda) 25 mg/mL injection Inject intravenous. 200mg IV Every three weeks 0 01/29/2022 Active levothyroxine (SYNTHROID) 50 mcg tablet Take 1 Capsule by mouth once daily. 05/13/2022 Active sennosides-docusate (SENOKOT S) (8.6-50 mg) tabletIndications:Mal ignant tumor of kidney, right (HC) Take 1 to 2 Tablets by mouth 2 times daily if needed for Constipation. 30 Tablet 06/18/2022 Active oxyCODONE (ROXICODONE) 5 mg immediate release tabletIndications:Mal ignant tumor of kidney, right (HC) Take 1 Tablet (5 mg) by mouth every 4 hours if needed for severe pain. 10 Tablet 06/18/2022 Active Active Problems Problem Noted Date Diagnosed Date HTN (hypertension) 06/17/2022 Hypothyroidism 06/17/2022 Controlled type 2 diabetes m ellitus without complication, without long-term current use of insulin 06/17/2022 Anemia, unspecified 06/17/2022 Metastatic renal cell carcinoma 06/17/2022 GERD (gastroesophageal reflux disease) Renal insufficiency 06/17/2022 Renal mass Family History Medical History Relation Name Comments Cancer-prostate Father Relation Name Status Comments Father Social History Tobacco Use Types Packs/Day Years Used Date Smoking Tobacco: Never Smokeless Tobacco: Never Tobacco Cessation:Counseling Given: Not Answered Alcohol Use Standard Drinks/Week Comments Never 1 (1 standard drink = 0.6 oz pur e alcohol) Social Connections Answer Date Recorded Frequency of Communication with Friends and Fami ly Not on file 05/24/2021 Financial Resource Strain Answer Date R ecorded Difficulty of Paying Living Expenses Not on file 05/24/2021 Difficulty of Paying Living Expenses Not on file 05/24/2021 Sex and Gender Information Value Date Recorded Sex Assigned at Not on file Gender Identity Not on file Sexual Orientation Not on file Obstetrics History Last Filed Vital Signs Vital Sign Reading Time Taken Comments Blood Pressure 165/80 06/18/2022 8:00 AM DISTRIBUTION MANAGER Pulse 69 06/18/2022 8:00 AM DISTRIBUTION MANAGER Temperature 36.6 C (97.8 F) 06/18/2022 8:00 AM DISTRIBUTION MANAGER Respiratory Rate 18 06/18/2022 8:00 AM DISTRIBUTION MANAGER Oxygen Saturation 96% 06/18/2022 8:00 AM DISTRIBUTION MANAGER Inhaled Oxygen Concentration - - Weight 77.7 kg (171 lb 3.2 oz) 06/18/2022 9:00 A M DISTRIBUTION MANAGER Height 177.8 cm (5' 10) 06/16/2022 11:29 AM DISTRIBUTION MANAGER Body Mass Index 24.56 06/16/2022 11:29 AM DISTRIBUTION MANAGER Plan of Treatment Health Maintenance Due Date Last Done Comments Tdap 1955 Depression screening for age 12+ 1956 BMI (ht and wt on same day) for age 18+ 1962 Hepatitis C screening for age 18-79 1962 Tetanus booster 1964 Zoster (shingles) series for age 50+ (1 of 2) 1994 Medicare Wellness for age 65+ 2009 Pneumococcal series for age 65+ (1 of 1 - PCV) 2009 RSV vaccine for adults or pr egnancy (1 - 1-dose 75+ series) 2019 COVID-19 vaccine series ( season) 2024 05/07/2022, 02/25/2021 Influenza for age 65+ 01/23/2024 Advance Directives * Full Code (Latest Code Status on File) Date Activated Date Inactivated Comments 06/18/2022 12:58 PM 06/18/2022 3:42 PM Question Answer Comments Code Status Discussion: Reviewed Preferences * Full Code Date Activated Date Inactivated Comments 06/16/2022 11:06 AM 06/18/2022 12:58 PM Question Answer Comments Code Status Discussion: Unable to Assess Preferences, Provider to review later Care Teams Forming Roll Operator Relationship Specialty Start Date End Date Beto Anne MD [address] [place] [address] PCP - General Family Practice 12/29/21
--- OUTSIDE RECORDS SUMMARY | 2024-04-27 12:40 | XMS_ITS | Clinical Summary ---
Author Organization [facility] Address [address] [place] [address]. [place] [address] Care Team Providers Care Um Nurse Name Role Phone Beto Anne MD Primary Care Provider [phone] Allergies No known active allergies Medications DIOVAN [...] on file Legal Sex Male 2:59 AM LACE ROLLER Gender Identity Not on file Sexual Orientation Not on file Last Filed Vital Signs Vital Sign Reading Time Taken Comments Blood Pressure - - Pulse - - Temperature - - Respiratory Rate - - Oxygen Saturation - - Inhaled Oxygen Concentration - - Weight 93 kg (205 lb) 04/17/2008 11:00 AM LACE ROLLER Height 177.8 cm (5' 10) 04/17/2008 11:00 AM LACE ROLLER Body Mass Index 29.41 04/17/2008 11:00 AM LACE ROLLER Plan of Treatment Health Maintenance Due Date Last Done Comments ADVANCE CARE PLANNING 1945 ANNUAL REVIEW OF HM ORDERS 1944 BMP 1944 GLUCOSE 1944 HEPATITIS C SCREENING 1962 LIPID 1984 FALL RISK ASSESSMENT 2009 MEDICARE ANNUAL WELLNESS VISIT 2009 DTAP/TDAP/TD IMMUNIZATION (1 - Tdap) 11/01/2015 10/31/2015, 10/31/2015 RSV VACCINE (1 - 1-dose 75+ series) 2019 COVID-19 Vaccine (3 - Pfizer risk series) 06/04/2022 05/07/2022, 02/25/2021 PHQ-2 (once per calendar year) 2023 INFLUENZA VACCINE (#1) 2024 2, 03/24/2021, 03/24/2021, Additional history exists COLONOSCOPY Discontinued 09/18/2009, 04/30/2005 COLORECTAL CANCER SCREENING Discontinued Pneumococcal Vaccine: 65+ Years Completed 06/28/2013, 09/04/2009 ZOSTER IMMUNIZATION Completed 11/14/2018, 09/10/2018, 10/25/2014 CT COLONOGRAPHY Discontinued FIT Discontinued FLEX SIG Discontinued HPV IMMUNIZATION Aged Out No longer e ligible based on patient's age to complete this topic MENINGITIS IMMUNIZATION Aged Out No l onger eligible based on patient's age to complete this topic RSV MONOCLONAL ANTIBODY Aged Out No l onger eligible based on patient's age to complete this topic sDNA (Cologuard) Discontinued Procedures Procedure Name Priority Date/Time Associated Diagnosis Comments COLONOSCOPY Routine 09/18/2009 9:35 AM CDT from Last 3 Months or Most Recently Relevant to Health Maintenance Results * COLONOSCOPY (09/18/2009 9:35 AM CDT) Pathologist [facility] COLONOSCOPY [facility] Patient Name: Rita Wesley Gender: M Procedure [...] saturations were monitored continuously. The Colonoscope P-17 #[id number] was introduced through the anus and advanced [...] AM RADIOLOGY RESULTS 09/18/2009 9:35 AM CDT Hugo Steven MD PROCEDURES Final Result RADIOLOGY RESULTS from Last 3 Months or Most Recently Relevant to Health Maintenance Insurance MEDIC[place] [address] [place] [id number] [facility] MEDICARE SUPPLEMENT MEDICARE [facility] MEDICARE SUPPLEMENT Care Teams Um Nurse Relationship Specialty Start Date End Date Beto Anne MD PCP - General Family Medicine 01/05/22
--- OUTSIDE RECORDS SUMMARY | 2024-04-27 12:40 | XMS_ITS | Encounter Summary ---
Author Organization [employer] Address [address] [address] Care Team Providers Care Pole Cutter Name Role Phone Beto Anne MD Primary Care Provider [phone] Reason for Visit * Reason Comments Eye Exam Diabetes Encounter Details Date Type Department Care Team (Late st Contact Info) Description 02/14/2024 1:20 PM CDT Office Visit [facility] [address] [phone] Janette Bains, OD [address] [place], [place] [id number] Type 2 diabetes mellitus without complication, without long-term current use of insulin (HRC) (Primary Dx); Bilateral pseudophakia; Myopia with astigmatism and presbyopia, bilateral; Dry eye syndrome of both eyes; Suspected glaucoma of both eyes Social History Tobacco Use Types Packs/Day Years Used Date Smoking Tobacco: Never Smokeless Tobacco: Never Sex and Gender Information Value Date Recorded Sex Assigned at Not on file Gender Identity Not on file Sexual Orientation Not on file documented as of this encounter Progress Notes * Janette Bains, OD - 02/14/2024 1:20 PM CDT General medical assessment: Patient is alert and feeling well. Medical history, current medications, and allergies reviewed. Assessment: 1. Type 2 diabetes mellitus without complication, without long-term current use of insulin (HRC) 2. Bilateral pseudophakia 3. Myopia with astigmatism and presbyopia, bilateral 4. Dry eye syndrome of both eyes 5. Suspected glaucoma of both eyes Plan: 1. No diabetic retinopathy both eyes. Patient educated on taking medications as directed, good blood sugar control, healthy diet, routine exercise, and regular follow-ups with PCP. Monitor annually with dilated eye exam. 2-3. Glasses Rx given for optional prescription lenses. Otherwise, OK to continue with +2.50 OTC readers. 4. Continue Blink artifical tears BID-QID BE. 5. Glaucoma suspect due to large CD ratio. +FMHx in father. Normal baseline OCT/HVF in 2021. Stable/low IOP. Healthy ONH appearance/no drance heme. Continue to monitor IOP and ONH appearance closely. RTC 1 year or sooner with any changes. documented in this encounter Plan of Treatment Not on file documented as of this encounter Visit Diagnoses Diagnosis Type 2 diabetes mellitus without complication, without long-term current use of insulin (HRC)- Primary Bilateral pseudophakia Lens replaced by other means Myopia with astigmatism and presbyopia, bilateral Dry eye syndrome of both eyes Suspected glaucoma of both eyes documented in this encounter Care Teams Pole Cutter Relationship Specialty Start Date End Date Beto Anne MD [address] [place] [address] PCP - General Family Practice 01/18/23 documented as of this encounter
--- OUTSIDE RECORDS SUMMARY | 2024-04-27 12:40 | XMS_ITS | Encounter Summary ---
Author Organization [facility] Address [address], [place] [address] Phone Care Team Providers Care Test Director Name Role Phone Beto Anne MD Primary Care Provider [phone] Encounter Details Date Type Department Care Team (Late st Contact Info) Description 04/13/2024 [facility] [address] [facility] [address] [place] [address] Leydi Quiroz RN Social History Tobacco Use Types Packs/Day Years Used Date Smoking Tobacco: Never Passive Smoke Exposure: Never Smokeless Tobacco: Never Alcohol Use Standard Drinks/Week Comments Yes 0 (1 standard drink = 0.6 oz pur e alcohol) Rare Sex and Gender Information Value Date Recorded Sex Assigned at Not on file Gender Identity Not on file Sexual Orientation Not on file documented as of this encounter Miscellaneous Notes * Telephone Encounter - Leydi Quiroz RN - 04/24/2024 11:11 AM CST I did actually talk with pts this morning after a couple attempts to reach her last week, His symptoms did resolve after stopping losartan, but his Bps are back up, averaging 170s/80s, HR 56-60.[facility] and they started hydralazine 25 mg TID but she states it hasn't mademuch of a difference yet after taking it for 2 days. * Telephone Encounter - Leydi Quiroz RN - 04/13/2024 4:[address] Esparza, can stop losartan for now and monitor BP over the next few days, and see if dizziness resolves. Informed pts spouse. * Telephone Encounter - Leydi Quiroz RN - 04/13/2024 4:02 PM CST Pts called- he started losartan 25mg daily at visit with Maria Elena last week. Since taking he has been having dizzy spells, worst is 3-4 hrs after taking med. Bps are still running 150s/160s- 70-80s during dizzy spells, so he is not hypotensive when they are happening. Initially he also had diarrhea. They also tried halving the dose to 12.5mg, this did not help. Please advise. documented in this encounter Plan of Treatment Upcoming Encounters Date Type Department Care Team (Late st Contact Info) Description 05/11/2024 3:00 PM CANOPY INSPECTOR Office [facility] [address] [facility] [address] [place] [id number] Christina Coelho PA [address] [facility] [address] [place], [place] [id number] documented as of this encounter Visit Diagnoses Not on filedocumented in this encounter Care Teams Test Director Relationship Specialty Start Date End Date Beto Anne MD [address] [place] [address] PCP - General 08/26/22 documented as of this encounter
--- OUTSIDE RECORDS SUMMARY | 2024-04-27 12:40 | XMS_ITS | Encounter Summary ---
Author Organization [facility] Address [address] [place] [address] Care Team Providers Care Bait Digger Name Role Phone Unavailable Primary Care Provider Unavailabl e Encounter Details Date Type Department Care Team (Late st Contact Info) Description 12/29/2023 Documentation Department of Radiation Oncology in [place], [place] [address] [place] [phone] Arnaud Durant M.D. 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 - 12/29/2023 11:59 PM CDT DIAGNOSIS: 1. Carcinoma Renal Cell Right (HCC) 2. 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 Treatment Intent: Palliative Concomitant Therapy: Keytruda and Lenvima Single Plan Treatment Course: 3xSternumSBRT Plan ID Fractions Dose / Fraction (cGy) Dose Treated (cGy) Dose Planned (cGy) First Treatment Last Treatment Elapsed Days [id number] 1000 5000 5000 12/20/2023 12/29/2023 9 Course Summary 12/20/2023 12/29/2023 9 Radiation Modality: Photons CLINICAL SUMMARY Mr. Rita Wesley completed radiation treatment as planned without interruptions. The courseof treatment was tolerated well. The patient experienced no toxicities during radiation treatment. TREATMENT RESPONSE: Response to treatment will be determined by post-treatment imaging and/or laboratory work. RECOMMENDED FOLLOW UP: Primary Medical Oncologist. Patient will follow up with Dr. Lopez at [facility] on January 06, 2024. Dr. Durant will see patient in a one time follow up in 3 months. Signed by: Valeri Rai R.N., 01/21/2024 4:[address] [facility] [address] [place] [address] Cosigned by Arnaud Durant M.D. 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
--- OUTSIDE RECORDS SUMMARY | 2024-04-27 12:40 | XMS_ITS | Clinical Summary ---
Author Organization [facility] Address [address] [place] [address] Care Team Providers Care Forestry Crew Chief Name Role Phone Beto Anne MD Primary Care Provider [phone] Source Comments You are receiving this document as you are listed as the primary care provider,follow-up provider, or the patient has been referred to you for consultation.This is in compliance with the Medicare and[facility] Hospital[facility] EHR Incentive Program,which states Providers who transition their patient to another setting of careor provider of care or refers their patient to another provider of care shouldprovide summary care record for each transition of care or referral. FIGMD Allergies Active Allergy Reactions Criticality Noted Date Comments Sulfa Antibiotics Hives High 04/11/2021 Medications Medication Sig Dispensed Refills Start Date End Date Status glipiZIDE (GLUCOTROL) 5 MG tablet 02/16/2021 Active lisinopril-hydroCHLORO thiazide (PRINZIDE) 20-12.5 MG tablet 04/02/2021 Active dilTIAZem CD (CARDIZEM CD) 240 MG 24 hour release capsule 02/16/2021 Active metoprolol tartrate (LOPRESSOR) 25 MG tablet 02/26/2021 Active tamsulosin (FLOMAX) 0.4 MG CAPS capsule 04/02/2021 Activ e omeprazole (PRILOSEC) 20 MG capsule 04/02/2021 Active hydrocortisone, Perianal, (PROCTOSOL-HC) 2.5 % rectal cream daily. 12/12/2022 Active levothyroxine (SYNTHROID) 50 MCG tablet Take 1 Tablet (50 mcg) by mouth daily. 09/29/2022 Active Pembrolizumab (KEYTRUDA IV) Active Lenvatinib Mesylate (LENVATINIB, 14 MG DAILY DOSE, OR) 14 mg daily. Active Active Problems Problem Noted Date Diagnosed Date Nuclear sclerosis of left eye 04/11/2021 Overview (04/11/2021): Added automatically from request for surgery [id number] Encounters Date Type Department Care Team Description 02/14/2024 1:20 PM CDT Office Visit [facility] [place] [id number] [place] [phone] Janette Bains A, OD Type 2 diabetes mellitus without complication, without long-term current use of insulin (HRC) (Primary Dx); Bilateral pseudophakia; Myopia with astigmatism and presbyopia, bilateral; Dry eye syndrome of both eyes; Suspected glaucoma of both eyes from Last 3 Months Immunizations Name Administration Dates Next Due Flublok (RIV4) 03/24/2021 [id number] 05/13/2009 Influenza IIV3 (Trivalent) F luzozonia Highdose, 65+ Yrs (37892) 03/14/2018,03/25/2017,03/24/2016,2014 Influenza IIV4 (Quadrivalent ) 0.5mL (85901) 03/24/2019 Influenza IIV4 (Quadrivalent ) Fluzone, 65+ Yrs 03/22/2020 PCV13 (Prevnar) 06/28/2013 PPSV23 (Pneumovax) 09/04/2009 Pfizer Monovalent 12+ Purple Top 02/25/2021 Td, Preservative Free 10/31/2015 Zoster (Zostavax) 10/25/2014 Zoster RZV (Shingrix) 11/14/2018,09/10/2018 Family History Medical History Relation Name Comments Cataract Father Glaucoma Father Cataract Mother Diabetes Brother 1 Diabetes Brother 2 Amblyopia/Strabismus Negative Family History Macular Degeneration Negative Family History Retinal Detachment Negative Family History Relation Name Status Comments Father Mother Brother 1 Brother 2 Alive Social History Tobacco Use Types Packs/Day Years Used Date Smoking Tobacco: Never Smokeless Tobacco: Never Tobacco Cessation:Counseling Given: Not Answered Sex and Gender Information Value Date Recorded Sex Assigned at Not on file Gender Identity Not on file Sexual Orientation Not on file Last Filed Vital Signs Vital Sign Reading Time Taken Comments Blood Pressure 129/70 09/16/2021 9:00 AM CDT Pulse 68 09/16/2021 9:00 AM CDT Temperature 36 C (96.8 F) 09/16/2021 8:56 AM CDT Respiratory Rate 16 [...] 1944 Diabetes: Lipid Panel 1944 Diabetes: Urine Microalbumin 1944 Hep C Screening (Preventive Services) 1945 Medicare Annual Wellness Visit 1944 DTaP/Tdap/Td (1 - Tdap) 11/01/2015 10/31/2015 RSV (1 - 1-dose 75+ series) 2019 COVID-19 Vaccine ( season) 2024 05/07/2022, 02/25/2021 Influenza (#1) 2024 03/10/2022, 11/0 05/2020, 03/22/2020, Additional history exists Diabetes: Eye Exam 02/13/2025 02/14/2024, 0 02/14/2024, 02/11/2023, Additional history exists Pneumococcal 65+ Yrs Completed 06/28/2013, 09/05/19 10 Zoster/Shingles Completed 11/14/2018, 08/23, 10/25/2014 HepA Aged Out No longer eligi ble based on patient's age to complete this topic HepB Aged Out No longer eligi ble based on patient's age to complete this topic Hib Aged Out No longer eligi ble based on patient's age to complete this topic IPV (Polio) Aged Out No longer eligi ble based on patient's age to complete this topic Infant RSV Aged Out No longer eligi ble based on patient's age to complete this topic MCV4 Aged Out No longer eligi ble based on patient's age to complete this topic Medical Devices Implanted Type Area Biochemistry Technician Device Identifier Shelf Expiration Date Model / Serial / Lot Lens Iol Tecnis Zcb00 20.5 - [id number] Implanted:Qty: 1 on 09/02/2021 by Semyour Lui MD at [facility] DEVICE Right: [employer]YE [employer] 04/14/2025 ZCB00.205 / [id number] / Lens Iol Tecnis Zcb00 20.5 - [id number] Implanted:Qty: 1 on 09/16/2021 by Seymour Lui MD at [facility] DEVICE Left: [employer] 06/30/2025 ZCB00.2 [id number] / Procedures Procedure Name Priority Date/Time Associated Diagnosis Comments MIRIAM (DIABETIC EYE EXAM) 04/02/2021 from Last 3 Months or Most Recently Relevant to Health Maintenance Results * MIRIAM (DIABETIC EYE EXAM) (04/02/2021) Interface Provider MD DUMMY/OTHER/AR from Last 3 Months or Most Recently Relevant to Health Maintenance Advance Directives Documents on File Type Date Recorded Patient Cloth Washer Back Tender Expl anation HEALTHCARE DIRECTIVE 04/25/2015 04/25/20 15 Care Teams Forestry Crew Chief Relationship Specialty Start Date End Date Beto Anne MD [address] [place] [address] PCP - General Family Practice 01/18/23
--- OUTSIDE RECORDS SUMMARY | 2024-04-27 12:40 | XMS_ITS | Clinical Summary ---
Author Organization [facility] Address [address] [place] [address] Care Team Providers Care Senior Backup Administrator Name Role Phone Unavailable Primary Care Provider Unavailabl e Source Comments Patient records contain information from all sites at [facility]. For routine questions regarding patient records, call [phone] during business hours, M-F 8:00 AM - 5:00 PM Central Time. Record requests for emergency care only can be directed to [phone] at any time.[facility] Allergies Active Allergy Reactions Criticality Noted Date Comments Metformin GI intolerance High 12/26/2021 Mirtazapine Other (see comments) Medium 03/21/2024 Extreme fatigue slept all day after 1 pill. Sulfa (Sulfonamide Antibiotics) Hives (Reselect Reaction) Medium 11/15/2017 Medications omeprazole (PriLOSEC) 20 mg capsule Take 20 mg by mouth every morning before breakfast. 8 Active tamsulosin (FLOMAX) 0.4 mg 24 hr capsule Take 0.4 mg by mouth daily. 8 Active ONETOUCH ULTRA BLUE TEST STRIP strips 3 8 Active ONETOUCH ULTRA CONTROL solution 3 8 Active ONETOUCH ULTRASOFT lancets 3 8 Active metoprolol tartrate (LOPRESSOR) 25 mg tablet Take 25 mg by mouth 2 (two) times a day as needed. Currently taking takes half a tablet, twice a day. 0 Active acetaminophen 325 mg capsule 500 mg as needed. 2 Active oxyCODONE (ROXICODONE) 5 mg immediate release tablet Take 5 mg by mouth every 4 (four) hours as needed. 3 Active levothyroxine sodium (TIROSINT) 50 mcg capsule Take 1 capsule by mouth daily. 2 Active pembrolizumab (Keytruda) 25 mg/mL injection Infuse into a venous catheter. 2 Active sennosides-docu sate sodium (SENOKOT-S) 8.6-50 mg per tablet Take 1-2 tablets by mouth 2 (two) times a day as needed. 3 Active Proctozone-HC 2.5 % rectal cream APPLY RECTALLY 2 TO 4 TIMES PER DAY NEEDED FOR HEMORRHOIDS 3 Active clotrimazole-be tamethasone (LOTRISONE) 1-0.05 % cream APPLY CREAM TOPICALLY TWICE DAILY FOR 2 WEEKS 3 Active lenvatinib (LENVIMA) 10 mg/day (10 mg x 1) capsule Take by mouth daily. Active Hospital, Clinic, or Other Facility Administered Medication Ordered Dose Route Frequency Start Date End Date Status lidocaine-EPINEPHrine 1%-1:200,000 injection 2-50 mL (XYLOCAINE W/EPI) 2 - 50 mL Ifil As needed 01/20/2018 Acti ve Active Problems Problem Noted Date Diagnosed Date Secondary Malignant Neoplasm Soft Tissue 024 Secondary Malignant Neoplasm Bone 02/04/2023 Carcinoma Renal Cell Right 10/27/2022 Cancer Staging:Clinical stage from 01/19/2022:Stage IV(cT2a, cN1, cM1) - Unsigned Secondary Malignant Neoplasm Lung Right 10/28/19 23 Encounters Date Type Department Care Team Description 03/24/2024 2:10 PM CDT - 03/31/2024 10:39 AM [facility] Hospital Encounter Department of Radiation Oncology in [place] [address] [place] [address] Arnaud Durant M.D. 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 Gender Identity Not on file Sexual Orientation Not on file Last Filed Vital Signs Vital Sign Reading Time Taken Comments Blood Pressure 148/68 03/24/2024 2:25 PM CDT Pulse 58 03/24/2024 2:25 PM CDT Temperature 36.3 C (97.3 F) 03/24/2024 2:25 PM CDT Respiratory Rate 12 01/20/2018 4:00 PM CDT Oxygen Saturation - - Inhaled Oxygen Concentration - - Weight 75.2 kg (165 lb 12.6 oz) 03/24/2024 2:25 PM CDT Height - - Body Mass Index - - Plan of Treatment Health Maintenance Due Date Last Done Comments Hepatitis C Screening 1945 Thyroid Stimulating Hormone (TSH) test for thyroid function 1945 DTaP,Tdap,and Td Vaccines (1 - Tdap) 11/01/2015 10/31/2015 RSV vaccine - (32-36 weeks) or 60+ years (1 - 1-dose 75+ series) 2019 Depression Screening (Annual PHQ-2) 05/24/2023 Fall Risk Screen (Annual) 05/24/2023 COVID-19 Vaccine ( season) 2024 04/14/2023, 05/07/2022, 02/25/2021 Influenza Vaccine (#1) 2024 , 03/10/2022, 03/24/2021, Additional history exists Zoster Vaccines Completed 11/14/2018, 08/23, 10/25/2014 Pneumococcal vaccine (65+ years) Completed 03/12/2023, 06/28/2013, 09/04/2009 HPV Vaccines Aged Out No longer eligi ble based on patient's age to complete this topic IPV Vaccines Aged Out No longer eligi ble based on patient's age to complete this topic Procedures Procedure Name Priority Date/Time Associated Diagnosis Comments OUTSIDE NM PET Routine 02/28/2024 10:40 AM CDT from Last 3 Months Results * PET CT Body Skull Base to Mid Thigh-Outside NM Pet (02/28/2024 10:40 AM CDT) Narrative [facility] - 03/13/2024 3:05 PM CDT This order has been created and auto-finalized to support the import of outside images. If available, original interpretation can be found on the Media Tab in Chart Review, in Document Viewer, as an image in QREADS or as an Addendum. If a re-interpretation or overread is required please follow defined workflow. us Provider Not In System IMG NM PROCEDURES Final R esult [facility] NA from Last 3 Months Additional Health Concerns Infection Onset Date Last Indicated Protective Environment 10/26/2022 3 Insurance MEDICARE [facility]
--- OUTSIDE RECORDS SUMMARY | 2024-04-27 12:40 | XMS_ITS | Referral Summary ---
Author Organization [facility] Address [address] [place] [address] Care Team Providers Care Lost Charge Card Clerk Name Role Phone Unavailable Primary Care Provider Unavailabl e Source Comments Patient records contain information from all sites at [facility]. For routine questions regarding patient records, call [phone] during business hours, M-F 8:00 AM - 5:00 PM Central Time. Record requests for emergency care only can be directed to [phone] at any time.[facility] Encounters Date Type Department Care Team Description 03/24/2024 2:10 PM CDT - 03/31/2024 10:39 AM [facility] Hospital Encounter Department of Radiation Oncology in [place], [place] [address] [place] [phone] Arnaud Durant M.D. Secondary Malignant Neoplasm Lung Right (HCC) (Primary Dx); Carcinoma Renal Cell Right (HCC) from Last 3 Months Allergies Active Allergy Reactions Criticality Noted Date [...] Secondary Malignant Neoplasm Lung Right 10/28/19 23 Social History Tobacco Use Types Packs/Day Years [...] on file Legal Sex Male 10:43 AM [employer] Gender Identity Not on file Sexual Orientation [...] Mass Index - - Plan of Treatment Not on file Procedures [...] Indicated Protective Environment 10/26/2022 3 Insurance MEDICARE [facility]
--- OUTSIDE RECORDS SUMMARY | 2024-04-27 12:40 | XMS_ITS | Encounter Summary ---
Author Organization [facility] Address [address] [place] [address] Phone Care Team Providers Care Senior Design Engineering Specialist Name Role Phone Beto Anne MD Primary Care Provider [phone] Encounter Details Date Type Department Care Team (Late st Contact Info) Description 04/25/2024 Telephone [employer] [address] [place] [address] Leydi Quiroz RN Social History Tobacco Use [...] Telephone Encounter - Leydi Quiroz RN - 04/25/2024 3:58 PM CST Spoke with pts about his blood pressures now that he's off losartan. His dizziness is better. Bps are high though, 170/180s systolic. Had appt at [place] on Wednesday and they started hydralazine 25mg TID, but that is not bringing it down yet. Reviewed with Dr. Esparza, she would like him to increase to50mg TID and monitor Bps. Anurag will call in later this week with an update. documented in this encounter Plan of Treatment Upcoming Encounters Date Type Department Care Team (Late st Contact Info) Description 05/11/2024 3:00 PM [employer] DR[employer] Office Visit [facility] [email or web address] [address] [place] [address] Christina Coelho PA [address] [facility] [address] [place] [address] documented as of this encounter Visit Diagnoses Not on filedocumented in this encounter Care Teams Senior Design Engineering Specialist Relationship Specialty Start Date End Date Beto Anne MD [address], [place] [address] PCP - General 08/26/22 documented as of this encounter
--- OUTSIDE RECORDS SUMMARY | 2024-04-27 12:40 | XMS_ITS | Data Portability ---
Author Organization [facility], [facility] Address [address] [place] [address] Care Team Providers Care Perennial House Manager Name Role Phone BRADLY GIANLUCA Primary Care Provider Assessment No assessment recorded. Plan of Treatment Reminders Order Date Submit Date Provider Last Modified By Organization Details Last Modified Time Details Appointments None recorded . Lab PSA, total, serum or plasma 2022 024 [facility], [address] [facility] [facility], [place], [address], 4 08:47:00 Referral None recorded . Procedures biopsy, prostate , needle (PROC) 2022 023 [email or web address] [facility], [address], [place], [address], 3 11:17:40 Surgeries nephrect christian, hand assisted laparosc opic (SURG) 2022 023 [email or web address] Not available 3 14:19:41 Imaging None recorded . Medication Orders ciproflo xacin 500 mg tablet 2022 023 [facility], [address] , [place], [address], 4 14:50:02 Patient TargetsNo targets recorded. Patient InstructionsNo instructions recorded. Reason for Referral None Reported. Results Created Date Observation Date Name Description Value Unit Range Abnormal Flag Note LastModifiedBy Organization Detail LastModifiedTime 12/17/19 22 12/16/2021 urina lysis , dipst ick Color-Status Yellow Not Available [facility] [address], [place], [address], 12/16/2021 11:23:41 12/17/19 22 12/16/2021 urina lysis , dipst ick pH-Status 5.5 Not Available [facility] [address], [place], [address], 12/16/2021 11:23:41 12/17/19 22 12/16/2021 urina lysis , dipst ick Blood-Status Trace Not Available [facility] [address], [place], [address], 12/16/2021 11:23:41 12/17/19 22 12/16/2021 urina lysis , dipst ick Leuko-Status Negati ve Not Available [facility] [address], [place], [address], 12/16/2021 11:23:41 12/27/19 22 12/25/2021 CT, chest , w/ contr ast No observ ation record ed. [facility] Radiology Department [address] [place], [address], 01/09/2022 18:24:30 12/27/19 22 12/25/2021 MRI, liver , w/wo contr ast No observ ation record ed. [facility] Radiology Department [address] [place], [address], 01/09/2022 18:24:31 04/22/20 22 04/10/2022 CT, abdom en + pelvi s, w/ contr ast No observ ation record ed. [email or web address] Not Available 2021 09:30:24 09/22/19 24 08/09/2023 PET, skull base to mid-t high No observ ation record ed. [email or web address] Not Available 2023 14:47:32 Result Notes None recorded. Problems Name Problem SNOMED Code Status Onset Date Resolution Date Notes Provider Name and Address Organization Details Recorded Time Malignant tumor of kidney 563464061 Active 2021 10cm, incidental finding but worisome for metastatic disease. Starting wtih immunother apy then cytoredcut ramírez nephrectom y in 2022. Negative margins. Keytruda through 2023. Ulises Dowell MD [address] [place] [address],[address], [place], [address], [facility] 4 15:06:45 Family history of malignant neoplasm of prostate 186332933 Active 2022 Father, his two brothers as well as Rita's brother all had prostate cancer. Some metastatic (fatehr). PSA 4.1 in 2023, 5.2 in 2022. Ulises Dowell MD [address] [place] [address],[address], [place], [address], [facility] 15:05:55 Problem Notes None recorded. Procedures Surgical History Date Name Laterality Status Provider Name and Address Organization Details Recorded Time 09/22/19 24 COMPLEX VISIT completed Ulises Dowell MD [address] [place] [address],[address], [place], [address], [facility] 09/22/2023 15:11:03 06/16/19 23 NEPHRECTOMY, HAND ASSISTED LAPAROSCOPIC (SURG) completed Dayna Durbin [facility] 06/18/2022 11:21:39 05/24/19 20 Colonoscopy completed Michael Arguelles MD [address] [place] [address],[address], [place], [address], [facility] 12/16/2021 11:22:45 Cataract Surgery completed Michael carrasco MD [address] [place] [address],[address], [address], [facility] 12/16/2021 11:22:30 Hernia Repair completed Michael Arguelles MD [address] [place] [address],[address], [place], [address], [facility] 12/16/2021 11:22:52 Orthopedic Surgery completed Michael Arguelles MD [address] [place] [address],[address], [place], [address], [place] [facility] 12/16/2021 11:23:04 Imaging Results Imaging Date Name Status LastModified by Organiz ation Details LastModified Time 12/25/2021 CT, chest, w/ contrast completed [facility] Radiology Department [address] [place], [address], 01/09/2022 18:24:30 12/25/2021 MRI, liver, w/wo contrast completed [facility] Department [address] [place], [address], 01/09/2022 18:24:31 04/10/2022 CT, abdomen + pelvis, w/ contrast completed [email or web address] Information not available 04/23/2022 09:30:24 08/09/2023 PET, skull base to mid-thigh completed [email or web address] Information not available 09/22/2023 14:47:32 Procedure Notes None recorded. Medical Equipment None Reported. Allergies Allergen ID Allergen Name Allergen Category Reaction Reaction Severity Criticality Documentation Date Start Date Code Code System Note Provider Name and Address Organization Details Recorded Time 592300 Substance with sulfonami de structure and antibacte rial mechanism of action (substanc e) medicatio n hives Not available Not available 12/16/2021 22979 8003 SNOMED Michael Arguelles MD [address] [facility] [address], [place], [address], [facility] 2 11:20:20 680333 metformin medicatio n diarrhea moderate low 01/15/2022 6809 RxNorm Delon Romero [facility] 2 16:55:36 Medications Name Sig Start Date Stop Date Status Note LastModified by Organization Details LastModified Time lisinopril 20 mg-hydrochl orothiazide 12.5 mg tablet 07/08 completed Not Available Not Available Not Available prochlorper azine maleate 5 mg tablet TAKE 1 TO 2 TABLETS BY MOUTH EVERY 6 HOURS NEEDED 07/08 completed Not Available Not Available Not Available diltiazem CD 240 mg capsule,ext ended release 24 hr active Not Available Not Available Not Available metronidazo le 500 mg tablet TAKE 1 TABLET BY MOUTH THREE TIMES DAILY 07/08 completed Not Available Not Available Not Available ciprofloxac in 500 mg tablet Take 1 tablet every 12 hours by oral route for 3 days. 09/21 completed Not Available Not Available Not Available hydrocortis one acetate 25 mg rectal suppository active Not Available Not Available Not Available levothyroxi ne 75 mcg tablet 09/21 completed Not Available Not Available Not Available ketorolac 0.5 % eye drops INSTILL 1 DROP 4 TIMES DAILY INTO OPERATIVE EYE STARTING 3 DAYS PRIOR TO SURGERY. CONTINUE FOR 2 WEEKS AFTER SURGERY. 12/16 completed Not Available Not Available Not Available levothyroxi ne 100 mcg tablet active Not Available Not Available Not Available hydrocortis one 2.5 % topical cream with perineal applicator APPLY RECTALLY 2 TO 4 TIMES PER DAY NEEDED FOR HEMORRHOI DS active Not Available Not Available No t Available prednisolon e acetate 1 % eye drops,suspe nsion INSTILL 1 DROP 4 TIMES DAILY INTO OPERATIVE EYE STARTING AFTER YOUR SURGERY. TAPER BY 1 DROP PER WEEK. SKAKE WELL 12/16 completed Not Available Not Available Not Available tamsulosin 0.4 mg capsule active Not Available Not Available Not Available OneTouch Ultra Test strips daily -As directed active Not Available Not Available No t Available glipizide ER 2.5 mg tablet, extended release 24 hr 01/06 completed Not Available Not Available Not Available levothyroxi ne 50 mcg tablet 01/06 completed Not Available Not Available Not Available pantoprazol e 40 mg tablet,sherry yed release TAKE 1 TABLET BY MOUTH ONCE DAILY 07/08 completed Not Available Not Available Not Available clotrimazol e-betametha sone 1 %-0.05 % topical cream APPLY CREAM TOPICALLY TWICE DAILY active Not Available Not Available No t Available lisinopril 10 mg tablet TAKE 1 TABLET BY MOUTH ONCE DAILY 01/06 completed Not Available Not Available Not Available omeprazole 20 mg capsule,del ayed release active Not Available Not Available Not Available metformin ER 500 mg tablet,exte nded release 24 hr 12/16 completed Not Available Not Available Not Available glipizide 5 mg tablet TAKE HALF TABLET BY MOUTH TWICE DAILY; if morning blood sugar >140 increase to 1 tab (5mg) twice daily. 12/16 completed Not Available Not Available Not Available amoxicillin 875 mg-potassiu m clavulanate 125 mg tablet TAKE 1 TABLET BY MOUTH TWICE DAILY FOR 10 DAYS 12/16 completed Not Available Not Available Not Available oxycodone 5 mg tablet 07/08 completed Not Available Not Available Not Available moxifloxaci n 0.5 % eye drops INSTILL 1 DROP 4 TIMES DAILY INTO OPERATIVE EYE STARTING 3 DAYS PRIOR TO SURGERY. CONTINUE FOR 1 WEEK AFTER SURGERY. 12/16 completed Not Available Not Available Not Available metoprolol tartrate 25 mg tablet 1/2 tab BID active Not Available Not Available No t Available Keytruda 200 mg every three weeks active Not Available Not Available No t Available Lenvima 10 mg/day (10 mg x 1) capsule active Not Available Not Available Not Available Lenvima 14 mg/day(10 mg x 1-4 mg x 1) capsule Take by oral route. 09/21 completed Not Available Not Available Not Available Vitals Date Recorded Body height Body mass index (BMI) Body weight Provider Name and Address Organization Details Last Updated DateTime 01/15/2022 177.8 cm 25.4 kg/m2 02783.85 g Delon Romero [facility] 01/15/2022 16:54:48 Date Recorded Body height Body mass index (BMI) Body weight Provider Name and Address Organization Details Last Updated DateTime 05/28/2022 177.8 cm 25.4 kg/m2 73346.85 g Ulises Dowell MD [address] [place] [address], [address] 05/28/2022 14:56:04 Date Recorded Body height Body mass index (BMI) Body weight Provider Name and Address Organization Details Last Updated DateTime 07/08/2022 177.8 cm 25.4 kg/m2 50609.85 g Ulises Dowell MD [address] [place] [address], [address] 07/08/2022 12:02:53 Date Recorded Body height Body mass index (BMI) Body weight Provider Name and Address Organization Details Last Updated DateTime 01/06/2023 177.8 cm 23.7 kg/m2 94358.74 g Ulises Dowell MD [address] [facility] [address], [place], [address], [facility] 01/06/2023 15:57:55 Date Recorded Body height Body mass index (BMI) Body weight Provider Name and Address Organization Details Last Updated DateTime 09/22/2023 177.8 cm 23.7 kg/m2 22991.74 g Ulises Dowell MD [address] [address],[facility] [address], [place], [address] 09/22/2023 14:49:28 Social History Question Answer Notes LastModified by Organizat ion Details LastModified Time Tobacco Smoking Status Never Smoker Michael Arguelles MD [address] [facility] [address], [address], [facility] 12/16/2021 11:22:18 What Is Your Level Of Alcohol Consumption? None Information not available 12/16/2021 What Is Your Level Of Caffeine Consumption? Occasional Information not available 12/16/2021 Are You Currently Employed? No Information not available 01/15/2022 Recreational Drug Use No Information not available 01/15/2022 What Was The Date Of Your Most Recent Tobacco Screening? 09/22/2023 [email or web address] Information not available 09/22/2023 What Is Your Relationship Status? Information not available 01/15/2022 Do You Use Any Illicit Or Recreational Drugs? No Information not available 12/16/2021 Has Tobacco Cessation Counseling Been Provided? No Information not available 01/15/2022 Do You Or Have You Ever Used Any Other Forms Of Tobacco Or Nicotine? No Information not available 01/15/2022 Sex: Unknown Functional Status None recorded. Mental Status None recorded. Family History Relationship Description Onset Age of this Age Resolved Age Notes LastModified by Organization Details LastModified Time Brother Family history of malignant neoplasm of prostate Not available 2021 11:21:39 Brother Family history of diabetes mellitus Not available 2021 11:21:51 Father Family history of malignant neoplasm of prostate Not available 2021 11:21:39 Medical History Condition Response Diabetes Y Sexually Transmitted Infection N Bleeding Disorder N Other N High Blood Pressure Y Kidney Stones N High Cholesterol N GERD/Acid Reflux Y Heart Disease Y Cancer Y Depression N Lung Disease Y Immunizations Vaccine Type Date Status Provider Name and Address Organization Details Recorded Time pneumococcal polysaccharide PPV23 09/04/2009 completed Not Available [facility] 2022 17:33:29 Pneumococcal conjugate PCV 13 06/28/2013 completed Not Available [facility] 06/18/2022 17:33:29 COVID-19, mRNA, LNP-S, PF, 30 mcg/0.3 mL dose 02/25/2021 completed Not Available [facility] 06/18/2022 17:33:29 Influenza, recombinant, quadrivalent, PF 03/24/2021 completed Ulises Dowell MD [address] [place] [address],[address], [address], [facility] 01/06/2023 15:58:08 zoster recombinant 09/10/2018 completed Ulises evans MD [address] [place] [address],[address], [address], [facility] 01/06/2023 15:58:08 zoster recombinant 11/14/2018 completed Ulises evans MD [address] [place] [address],[address], [address], [facility] 01/06/2023 15:58:08 Influenza, high-dose, quadrivalent, PF 03/22/2020 completed Ulises Dowell MD [address] [place] [address],[address], [address], [facility] 01/06/2023 15:58:08 Novel [id number], all formulations 05/13/2009 completed Ulises Dowell MD [address] [place] [address],[address], [place], [address], [facility] 01/06/2023 15:58:08 zoster live 10/25/2014 completed Ulises Dowell MD [address] [place] [address],[address], [address], [facility] 01/06/2023 15:58:08 Influenza, high-dose, trivalent, PF 03/14/2018 completed Ulises Dowell MD [address] [place] [address],[address], [place], [address], [facility] 01/06/2023 15:58:08 Influenza, high-dose, trivalent, PF 03/24/2016 completed Ulises Dowell MD [address] [place] [address],[address], [place], [address], [facility] 01/06/2023 15:58:08 Influenza, high-dose, trivalent, PF 03/25/2017 completed Ulises Dowell MD [address] [place] [address],[address], [place], [address], [facility] 01/06/2023 15:58:08 Influenza, high-dose, trivalent, PF 04/02/2015 completed Ulises Dowell MD [address] [place] [address],[address], [address], [facility] 01/06/2023 15:58:08 Td (adult), 5 Lf tetanus toxoid, preservative free, adsorbed 10/31/2015 completed Ulises Dowell MD [address] [place] [address],[address], [address], [facility] 01/06/2023 15:58:08 Influenza, split virus, quadrivalent, PF 03/24/2019 completed Ulises Dowell MD [address] [place] [address],[address], [address], [facility] 01/06/2023 15:58:08 Past Encounters Encounter ID Performer Location Encounter Start Date Encounter Closed Date Diagnosis/Indication Diagnosis SNOMED-CT Code Diagnosis ICD10 Code [id number] MD CATHERINE Cardona_Dana[facility] [address] [place] [address] 12/16/2021 10:51:06 12/19/2021 16:05:30 Renal mass 347857798 N28.89 Family his tory of malignant neoplasm of prostate 966515274 Z80.42 Lower urin naila tract symptoms due to benign prostatic hypertrophy 9945538525 9101 N40.1 [id number] MD CATHERINE [facility] [address] [place] [address] 01/15/2022 16:47:11 01/19/2022 14:59:30 Malignant tumor of kidney 058854593 C64.9 [id number] Ulises Dowell MD [facility] [address] [place] [address] 05/28/2022 14:50:04 06/01/2022 16:16:39 Malignant tumor of kidney 015427264 C64.9 [id number] Ulises Dowell MD [place] [address],[address] [address] 07/08/2022 11:49:10 07/10/2022 14:54:58 Malignant tumor of kidney 242420951 C64.9 Family his tory of malignant neoplasm of prostate 431431780 Z80.42 [id number] Ulises Dowell MD [place] [address],[address] [address] 01/06/2023 15:52:51 01/15/2023 16:16:18 Malignant tumor of kidney 235344562 C64.9 Prostate s pecific antigen above reference range 536871918 R97.20 Family his tory of malignant neoplasm of prostate 345143129 Z80.42 [id number] Ulises Dowell MD [address] [address] 09/22/2023 14:40:32 09/22/2023 15:40:08 Family history of malignant neoplasm of prostate 636955808 Z80.42 Malignant tumor of kidney 825013573 C64.9 Health Concerns Section Related Observation LastModified by Organization Detai ls LastModified Time None Recorded Concern Status LastModified by Organization Details LastModified Time None Recorded Advance Directives Directive None Recorded Payers Encounter Date Sequence Insurance Name Policy Number Policy Barrientos Covered Member ID Barrientos Member ID Guarantor Name 01/15/2022 1 [place] [employer] Rita Wesley [id number] Rita Wesley 01/15/2022 2 [place] [id number] Rita Wesley [id number] Rita Wesley 05/28/2022 1 [place] [employer] Rita E Whipkey [id number] Rita Grant Whipkey 05/28/2022 2 [place] [id number] Rita E Whipkey [id number] Rita Grant Whipkey 07/08/2022 1 [place] [employer] Rita E Whipkey [id number] Rita Grant Whipkey 07/08/2022 2 [place] [id number] Rita E Whipkey [id number] Rita Grant Whipkey 01/06/2023 1 [place] [employer] Rita E Whipkey [id number] Rita Rgant Whipkey 01/06/2023 2 [place] [id number] Rita E Whipkey [id number] Rita Grant Whipkey 09/22/2023 1 [place] [employer] Rita E Whipkey [id number] Rita Grant Whipkey 09/22/2023 2 [place] [id number] Rita E Whipkey [id number] Rita Grant Whipkey Notes Date Note Type Note Provider Name and Address Organization Details Recorded Time 05/28/2022 text/html He's been undergoing Keytruda therapy for low volume metastatic RCC. Over the past 4 months, this has shrunk the tumor and the mets. He would now like to pursue nephrectomy. h/o bilateral hernia repairs. Ulises Dowell MD [address] [facility] [address], [place], [address], [facility] 05/28/2022 15:07:13 07/08/2022 text/html s/p cytoreductiv e nephrectomy.Followi ng a lung met, small. Patient stated I'm having mild pain 2/10 pain level where the incision is. Ulises Dowell MD [address] [facility],[address], [place], [address], [facility] 07/08/2022 13:39:51 01/06/2023 text/html s/p cytoreductiv e nephrectomy May 2022 for metastatic RCC. Follows with med onc. Here today with his . On keytruda - will be on this through March. Had radiation for lung mets. Has some shortness breath since then. Does follow with nephrology. Cr between 1.6 - 1.9. Now here for elevation in PSA. Does have a strong family history of prostate cancer. Has never had biopsy. He does endorse stable nocturia x3. He did increase flomax from 0.4 mg to 0.8 mg last month. Denies heme/dysuria. PSA Hx:- 2.38 (10/31/18)- 2.0 (12/06/19)- 2.25 (12/04/20)- 3.41 (12/08/21)- 5.21 (11/2022) Ulises Dowell MD [address] [place] [address],[place] [address], [place], [address], [facility] 01/06/2023 16:55:35 09/22/2023 text/html Follow up for tw o issues: 1) Elevated PSA. This is actually a point better this year and normal for his age. He has a strong family h/o of prrostate cancer. 2) Metastatic kidney cancer in complete remission under the care of Med Onc (Keytruda and Lenvima). He does have some side effects (horse voice and skin issues). Ulises Dowell MD [address] [place] [address],[address] [facility], [place], [address], [facility] 09/22/2023 15:11:13
--- OUTSIDE RECORDS SUMMARY | 2024-04-27 12:40 | XMS_ITS | Encounter Summary ---
Author Organization [facility] Address [address], [place] [address] Phone Care Team Providers Care Chemical Pumper Name Role Phone Gianluca Anne MD Primary Care Provider [phone] Encounter Details Date Type Department Care Team (Latest Contact Info) Description 03/21/2024 9:00 AM CDT Office Visit [facility] [address] [place] [address] Aneta Dyer MD [address] [place] [address] Stage 3 chronic kidney disease, not otherwise specified (CMS-HCC) (Primary Dx); Vitamin D deficiency, not otherwise specified; Benign prostatic hyperplasia; Elevated prostate specific antigen (PSA); Atrial fibrillation, not otherwise specified (CMS-HCC); Hypertensive disorder; Metastatic renal cell carcinoma <Right side> (CMS-HCC); Type 2 diabetes mellitus without complication (CMS-HCC) Social History Tobacco Use Types Packs/Day Years [...] Sign Reading Time Taken Comments Blood Pressure 175/79 03/21/2024 8:59 AM CDT Pulse 58 03/21/2024 8:59 AM CDT Temperature 36.4 C (97.5 F) 03/21/2024 8:59 AM CDT Respiratory Rate - - Oxygen Saturation - - Inhaled Oxygen Concentration - - Weight 76.2 kg (168 lb) 03/21/2024 8:59 AM CDT Height - - Body Mass Index 24.11 12/22/2022 1:35 PM CDT documented in this encounter Progress Notes * Aneta Dyer MD - 03/21/2024 9:00 AM CDT Images from the original note were not included. [facility] Date of : 1945 Date of Service: 03/21/24 Primary care provider: GIANLUCA ANNE MD ASSESSMENT AND RECOMMENDATIONS: CKD IIIa/b H/o metastatic RCC (R kidney) s/p nephrectomy, stage IV Recent baseline Cr ~1.5-1.7 since nephrectomy. Patient has been on lenvima and keytruda since fall with brief pause during time of nephrectomy. Has had some fluctuating Cr, but in general renal function relatively stable. Most recent CT (02/2024) with no progression of disease. Has had fluctuating proteinuria levels as well, as low as <100mg/g, 228 mg/g a year ago, 123 mg/g December 2022, UACR 570 mg/g early August 2023. 11/20/33 UACR back down to 189 mg/g. Though Lenvima can cause proteinuria, but given overall benefit of the medication and only minimal proteinuria we can medically manage. Not clear that this proteinuria is even due to the lenvima. Discussed starting losartan, but do esn't appear this was done after last set of labs. BP high in clinic today, but some fluctuations lately. Will recheck UACR (sent with form to bring to PCP office), if >500 mg then can trial low dose losartan if BP tolerates. - BMP 03/03 with Cr 1.6, stable - UACR - if >500 mg/g will consider addition of low dose losartan Elevated PSA BPH PSA 4.1, enlarged prostate noted on PET. Does have some nocturia, otherwise no LUTS. - tamsulosin HTN Afib On metoprolol 12.5mg BID and diltiazem 240mg daily. HR controlled. BP at goal, typically 140s systolic at home, but elevated in clinic today. If UACR > 500 mg then may need to consider lower dose trial. Advised him to check home pressures, will check in with him next week to see how home pressures are. He will also be having vitals done in oncology clinic next week. If persistently hypertensive, then will add losartan 25mg daily with BMP after 1 week of starting. DM2 Most recent A1c 5.8, well controlled with diet alone. Anemia screening Hgb 12.1 (03/03/24), being followed by Oncology. No ADITYA or iron indicated. CKD MBD Vit D deficiency Will check vit D and PTH. F/u in August/September. Pt going to [place] May-July if cancer stable. I reviewed notes from Dr. Lopez (heme onc), (rad onc). In total I spent 40 minutes on today's encounter. REASON FOR VISIT: CKD follow up HISTORY OF PRESENT ILLNESS: Rita Wesley is a 78 y.o. male with PMH of DM2, HTN, pAfib, and metastatic RCC (lung mets) s/p R nephrectomy (05/2022) presenting for CKD follow up. In general he's doing ok. Reports appetite still not great, but he eats whatever his makes for him, so nutrition has been adequate. Despite this,he appears to be losing some weight. Denies SOB or LE Edema. No n/v or dysgeusia. Energy levels arestable, no worse. I last saw them 11/22/23. Started mirtazapine on Wednesday evening, but felt very drowsy and out of it the entire next day. Notably had SBP in 170s twice over weekend scattered between more normal values in the 140s. He is here today with his . They plan to go down to [place] May - July if theres no significant recurrence of cancer in the interim. PAST MEDICAL HISTORY: Past Medical History: Diagnosis Date Diabetes mellitus without mention of complication, type II or unspecified type, not stated as uncontrolled (CMS-HCC) Disorder of thyroid Essential hypertension Other malignant neoplasm of unspecified site (CMS-HCC) PAST SURGICAL HISTORY: Past Surgical History: Procedure Laterality Date EYE SURGERY HERNIA REPAIR MEDICATIONS: Current Outpatient Medications: acetaminophen (TYLENOL) 325 MG capsule, 500 mg once daily as needed, Disp: , Rfl: Blood Glucose Calibration (OT ULTRA/FASTTK CNTRL SOLN) solution, , Disp: , Rfl: clotrimazole-betamethasone (LOTRISONE) cream, Apply topically 2 (two) times a day, Disp: , Rfl: dilTIAZem CD (CARDIZEM CD) 240 MG 24 hr capsule, Take 240 mg by mouth 1 (one) time each day, Disp: , Rfl: glucose blood (OneTouch Ultra) test strip, , Disp: , Rfl: Hydrocortisone, Perianal, 2.5 % cream, , Disp: , Rfl: Lancets (onetouch ultrasoft) lancets, , Disp: , Rfl: Lenvatinib Mesylate (LENVIMA, 10 MG DAILY DOSE, PO), Take 10 mg by mouth 1 (one) time each day, Disp: , Rfl: levothyroxine (SYNTHROID) 100 MCG tablet, Take 100 mcg by mouth 1 (one) time each day, Disp: , Rfl: metoprolol tartrate (LOPRESSOR) 25 MG tablet, Take 12.5 mg by mouth in the morning and 12.5 mg in the evening., Disp: , Rfl: omeprazole (PriLOSEC) [address] capsule, Take 20 mg by mouth 1 (one) time each day, Disp: , Rfl: Pembrolizumab (Keytruda) 100 MG/4ML solution, Infuse into a venous catheter, Disp: , Rfl: tamsulosin (FLOMAX) 0.4 MG 24 hr capsule, Take 0.8 mg by mouth in the morning., Disp: , Rfl: Today's Medication Changes Accurate as of March 21, 2024 9:06 AM. If you have any questions, ask your nurse or doctor. Modified Meds levothyroxine 100 MCG tablet Commonly known as: SYNTHROID Take 100 mcg by mouth 1 (one) time each day What changed: Another medication with the same name was removed. Continue taking this medication, and follow the directions you see here. Changed by: Aneta Dyer ALLERGIES: Allergies Allergen Reactions Remeron [Mirtazapine] fatigue Extreme fatigue slept all day after 1 pill. Sulfa Antibiotics Hives Metformin nausea REVIEW OF SYSTEMS: A comprehensive review of systems was performed and found to be negative except as described here or above. SOCIAL HISTORY: Social History Social History Narrative Lives with his in [place]. Enjoys gardening in the summer. [place] in the winter in [facility]. Never smoker. Rarely drinks alcohol. No illicit drug use. Retired. 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 FAMILY MEDICAL HISTORY: Family History Problem Relation Age of Onset Miscarriages / Stillbirths Mother Hearing loss Mother Arthritis Mother Cancer Father Diabetes Brother Cancer Brother Alcohol abuse Daughter Alcohol abuse Son PHYSICAL EXAM: Visit Vitals BP 175/79 (BP Location: Left arm, Patient Position: Sitting, BP Cuff Size: Adult) Pulse 58 Temp 97.5 ??F (36.4 ??C) (Temporal) Wt 168 lb (76.2 kg) BMI 24.11 kg/m?? Smoking Status Never BSA 1.94 m?? GENERAL APPEARANCE: alert and no distress EYES: nonicteric HENT:MMM RESP: lungs clear to auscultation CV: RRR, no murmurs or rubs Extremities: no edema NEURO: mentation intact and speech normal PSYCH: affect normal/bright LABS: Historical labs were reviewed with the patient. Available imaging studies were reviewed. Aneta Dyer MD [facility] [phone] documented in this encounter Plan of Treatment Upcoming Encounters Date Type Department Care Team (Late st Contact Info) Description 05/11/2024 3:00 PM RETAIL PRICING COORDINATOR Office Visit [facility] [address] [facility] [address] [place] [id number] Christina Coelho PA [address] [facility] [address] [place] [address] documented as of this encounter Visit Diagnoses Diagnosis Stage 3 chronic kidney disease, not otherwise specified (CMS-HCC)- Primary Vitamin D deficiency, not otherwise specified Benign prostatic hyperplasia Elevated prostate specific antigen (PSA) Atrial fibrillation, not otherwise specified (CMS-HCC) Hypertensive disorder Metastatic renal cell carcinoma <Right side> (CMS-HCC) Type 2 diabetes mellitus without complication (CMS-HCC) documented in this encounter Care Teams Chemical Pumper Relationship Specialty Start Date End Date Gianluca Anne MD [address] [address] PCP - General 08/26/22 documented as of this encounter
--- OUTSIDE RECORDS SUMMARY | 2024-04-27 12:40 | XMS_ITS ---
Author Organization [facility] Address [address] [place] [address] Care Team Providers Care Lead Technician Name Role Phone Unavailable Unavailable Unavailable Surgery Details Not on file Complications Check Surgery Details section. Procedure Estimated Blood Loss Check Surgery Details section. Procedure Findings Check Surgery Details section. Procedure Specimens Taken Check Surgery Details section.
--- OUTSIDE RECORDS SUMMARY | 2024-04-27 12:40 | XMS_ITS | Encounter Summary ---
Author Organization [facility] Address [address] [place] [id number] Care Team Providers [facility] Director Name Role Phone Unavailable Primary Care Provider Unavailabl e Reason for Referral * Outpatient (Routine) - Closed Specialty Diagnoses / Procedures Referred By Joaquin vilchis Referred To Contact Radiation Oncology Arnaud Durant M.D. [address] [place] [phone] Phone: tel: fax: [facility] Region Referral ID Status Reason Start Date Expiration Date Visits Re quested Visits Authorized [id number] Closed 12/22/2023 06/22/20[address] Durant in 3 months Reason for Visit * Outpatient (Routine) - Closed Specialty Diagnoses / Procedures Referred By Joaquin vilchis Referred To Contact Radiation Oncology Arnaud Durant M.D. [facility] [place] [phone] Phone: tel: fax: [facility] Region Referral ID Status Reason Start Date Expiration Date Visits Re quested Visits Authorized [id number] Closed 12/22/2023 06/22/2025 1 1 Encounter Details Date Type Department Care Team (Latest Contact Info) Description 03/24/2024 2:10 PM CDT - 03/31/2024 10:39 AM [facility] Hospital Encounter Department of Radiation Oncology in [address] [phone] Arnaud Durant M.D. 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 12/01/2021 clotrimazole-bet amethasone (LOTRISONE) 1-0.05 % cream APPLY CREAM TOPICALLY TWICE DAILY FOR 2 WEEKS 09/10/2022 lenvatinib (LENVIMA) 10 mg/day (10 mg x 1) capsule Take by mouth daily. levothyroxine sodium (TIROSINT) 50 mcg capsule Take 1 capsule by mouth daily. 05/13/2022 metoprolol tartrate (LOPRESSOR) 25 mg tablet Take 25 mg by mouth 2 (two) times a day as needed. Currently taking takes half a tablet, twice a day. 01/25/2020 omeprazole (PriLOSEC) 20 mg capsule Take 20 mg by mouth every morning before breakfast. 11/01/2017 ONETOUCH ULTRA BLUE TEST STRIP strips 3 11/23/2017 ONETOUCH ULTRA CONTROL solution 3 11/23/2017 ONETOUCH ULTRASOFT lancets 3 11/23/2017 oxyCODONE (ROXICODONE) 5 mg immediate release tablet Take 5 mg by mouth every 4 (four) hours as needed. 06/18/2022 pembrolizumab (Keytruda) 25 mg/mL injection Infuse into a venous catheter. 01/29/2022 Proctozone-HC 2.5 % rectal cream APPLY RECTALLY 2 TO 4 TIMES PER DAY NEEDED FOR HEMORRHOIDS 09/10/2022 sennosides-docus ate sodium (SENOKOT-S) 8.6-50 mg per tablet Take 1-2 tablets by mouth 2 (two) times a day as needed. 06/18/2022 tamsulosin (FLOMAX) 0.4 mg 24 hr capsule Take 0.4 mg by mouth daily. 11/01/2017 documented as of this encounter Progress Notes * Jimena Matthews APRN, C.N.P., D.N.P. - 03/24/2024 2:30 PM CDT SUBJECTIVE DIAGNOSIS 1. Secondary Malignant Neoplasm Lung Right (HCC) 2. Carcinoma Renal Cell Right (HCC) SUPERVISED BY: Arnaud Durant M.D. HISTORY OF PRESENT ILLNESS Mr. Rita Wesley is a 78 y.o. male with metastatic renal cell carcinoma with an isolated soft tissue metastasis near the right internal mammary/intercostal region while on systemic Keytruda and Lenvima. He completed high dose radiation therapy to the right chest wall/internal mammary lymph node on December 29, 2023. He returns for follow up. His oncologic history is as follows: Oncology History Carcinoma Renal Cell Right (HCC) 12/01/2021 Other Patient presented to [facility] Emergency room for diverticulitis flare. While being worked up, incidental finding of renal mass was identified. Referred to Urology. 12/01/[address] abdomen and pelvis with contrast Impression: 1. Acute diverticulitis of the sigmoid colon, without evidence of perforation or abscess 2. Heterogeneous 9.8 x 9.4 x 7.9 cm mass involving the superior portion of the right kidney, likelyrepresenting renal cell carcinoma. Urology referral is recommended. 3. Indeterminate liver lesions, as described above. Consider outpatient liver MRI for further evaluation. 4. Additional nonacute findings. 12/16/[address] Michael Arguelles, [facility]. Referral to Dr. Ulises Dowell for nephrectomy discussion. Recommended repeat CT Chest and MRI Liver. 12/25/2021 Critical Imaging MRI abdomen Impression: 1. Flash-filling hemangiomas measuring up to 10 mm and 7 mm in the lateral aspect of the segment. 5.5 mm in lower segment with 2 cyst 2. 10 cm superior right renal mass, likely a renal cell carcinoma. No local invasion or metastatic lesion evident. 3. 1 cm right lower lobe base nodule CT chest Impression: 1. Two suspicious lung lesions measuring 1.4 cm and 1.2 cm within the right upper lobe and right lower lobe. 2. Complex large right renal mass with adjacent portacaval adenopathy 3. Indeterminate 7 mm hypodense lesion within the left hepatic lobe 4. Subtle tiny foci of decreased density within the T1 vertebral body and manubrium, possibly related to osteoporosis although metastatic disease not excluded 01/01/[address] Gio Lopez, hematology oncology. Recommended PET-CT and CT- guided lung biopsies. 01/05/2022 Critical Imaging PET/CT FINDINGS: FDG avid centrally necrotic lesion arising from the right kidney measuring [...] the right lower and right upper lobes. Theremaining FDG uptake is physiologic from the skull vertex to mid thigh. CT FINDINGS: Mild senescent intracranial changes. Postoperative change of the bilateral lenses. Non-FDG avid 1 cm nodule in the right thyroid lobe suggesting benignity. Moderate coronary artery calcium. Small sliding-type hiatal hernia. Sigmoid diverticulosis. Pelvic phleboliths. Moderate prostamegaly. Small fat- containing inguinal hernias. Multilevel degenerative changes of spine including grade1 anterolisthesis of L4 over L5 01/07/2022 Biopsy/Pathology Final Diagnosis A) LUNG, RIGHT LOWER LOBE, CT-GUIDED NEEDLE CORE BIOPSY WITH TOUCH IMPRINTS: 1. Positive for malignancy; malignant cells identified on cytologic preparations only 2. Insufficient tissue for characterization by immunohistochemical stains 3. See comment. Comment: The cytologic smears contain numerous malignant cells with a plasmacytoid appearance, arranged in loosely cohesive clusters as well as single cells. The cells possess large prominent nucleoli as wellas rare intra-nuclear inclusions. The cytologic appearance is consistent with a malignant process; however immunohistochemical stainswould be necessary for further characterization. Unfortunately, no malignant tissue remains for immunohistochemistry in the scant cell block and therefore stains cannot be performed. Given the reported history of a renal mass, renal cell carcinoma is possible; however, other malignant processes such as metastatic carcinoma from another primary site or possibly melanoma are also within the differential diagnosis. Repeat sampling is recommended. 01/09/2022 Other Decision made to proceed with first-line systemic therapy with follow-up imaging down the road to discuss further nephrectomy treatment. 01/19/2022 Biopsy/Pathology Final Diagnosis A) LUNG, RIGHT, CT-GUIDED NEEDLE BIOPSY: Positive for metastatic renal cell carcinoma, see comment Comment A) The morphology and immunohistochemical characteristics are those of renal cell carcinoma. Clear-cell renal cell carcinoma is favored based on the immunohistochemical pattern. 01/22/2022 - 05/23/2022 Biological/Targeted/Hormone Therapy Started first-line Keytruda and Lenvima under the care of Dr. Gio Lopez at [facility]. 04/10/[address] chest abdomen and pelvis with contrast IMPRESSION: 1. Hypoenhancing mass in the upper pole of the right kidney has decreased in size, now measuring 7.9 x 7 cm, previously 9.2 x 7.3 cm, consistent with response to treatment. 2. Two right pulmonary nodules, 1 cm right lower lobe (previously 1.2 cm) and 1 cm right upper lobe(previously 1.4 cm), consistent with metastatic disease have also decreased in size. 3. A previously described mildly enlarged 1.1 cm portacaval lymph node in the retroperitoneum is unchanged. 06/16/2022 Surgery and Procedures Right hand assisted laparoscopic nephrectomy performed by Dr. Ulises Dowell KIDNEY AND ADRENAL, RIGHT, RADICAL NEPHRECTOMY: 1. Renal cell carcinoma, conventional clear cell type (ISUP nuclear grade 3), measuring 9.5 cm in greatest dimension with invasion into perinephric and hilar adipose tissue (pT3a) 2. Surgical resection margins negative for malignancy 3. Background kidney shows no significant pathologic abnormality 4. Benign adrenal gland SYNOPTIC REPORTING KIDNEY: Nephrectomy KIDNEY: NEPHRECTOMY, PARTIAL OR RADICAL - All specimens SPECIMEN Procedure: Radical nephrectomy Specimen Laterality: Right TUMOR Tumor Focality: Unifocal Tumor Size: Greatest Dimension (Centimeters): 9.5 cm Histologic Type: Clear cell renal cell carcinoma Histologic Grade (WHO / ISUP): G3 (nucleoli conspicuous and eosinophilic at 100x magnification) Tumor Extent: Extends into perinephric tissue (beyond renal capsule) Tumor Extent: Extends into renal sinus Sarcomatoid Features: Not identified Rhabdoid Features: Not identified Tumor Necrosis: Present Percentage of Tumor Necrosis: 20 % Lymphovascular Invasion: Not identified MARGINS Margin Status: All margins negative for invasive carcinoma REGIONAL LYMPH NODES Regional Lymph Node Status: Not applicable (no regional lymph nodes submitted or found) DISTANT METASTASIS Distant Site(s) Involved: Lung PATHOLOGIC STAGE CLASSIFICATION (pTNM, AJCC 8th Edition) Primary Tumor (pT): pT3a Regional Lymph Nodes (pN): pN not assigned (no nodes submitted or found) Distant Metastasis (pM): pM1 ADDITIONAL FINDINGS Additional Findings in Nonneoplastic Kidney: None identified 07/09/2022 - Biological/Targeted/Hormone Therapy Restarted Keytruda and Lenvima under the care of Dr. Lopez. Treatment interruption in due to elevated creatinine and acute kidney injury. 10/20/2022 Critical Imaging PET-CT Impression: Although previously suspected portacaval lymph node metastasis is decreased in size and uptake compared to December 2021, there is increased size and uptake of a right lower lobe pulmonary nodule now measuring 22 x 17 mm, previously 10 x 9 mm, as well as mildly increased size of right upper lobe pulmonary nodule now measuring 16 x 12 mm, previously 11 x 10 mm, consistent with disease progression. 10/22/2022 Other Follow up with Dr. Lopez. Discussed that is unclear if his lung progression is true progression versus progression due to interruption of first-line treatment. Discussed second-line treatment options. Patient preferred continuing on first- line therapy with Keytruda and Lenvima, and addressing the lung metastases with radiation or surgery. 10/28/2022 Other Per patient report, patient met with thoracic surgeon, Dr. Giancarlo Lowe, who felt surgery on the right lower lobe lesion would be amendable, but surgery on the right upper lobe lesion would be difficult due an artery lying very close to lesion. Patient wanted 2nd opinion and reached out to [facility] Thoracic department is waiting to hear back. 11/03/2022 Tumor Board His case was presented at our [facility] tumor board today. One of our thoracic surgeons felt that the upper lesion would require a right upper lobectomy and then a wedge on the right lower. He wouldfavor SBRT. 11/11/2022 - 11/20/2022 Radiation Therapy Radiation therapy to the right upper lobe lung tumor to a dose of 6000 cGy in 8 fractions. 11/25/2022 - 11/30/2022 Radiation Therapy SBRT to the tumor in right lower lobe to a dose of 5000 cGy in 4 fractions. 02/01/2023 Critical Imaging PET-CT scan demonstrated a partial favorable treatment response of 2 right lung pulmonary metastases, both of which had decreased in size and degree of FDG uptake. A small, but FDG avid destructive lesion had developed in the right lateral humeral head, suspicious for bone metastasis. No suspiciousFDG avid adenopathy. Continued decrease in size and uptake involving an upper abdominal portacaval lymph node, likely inflammatory. 02/26/2023 - 02/26/2023 Radiation Therapy Radiation Therapy Treatment Details (02/26/2023 - 02/26/2023) Site: right proximal humerus Technique: SBRT Goal: Palliative Dose: 2400 cGy Fraction: 1 04/28/2023 Critical Imaging PET-CT imaging demonstrated 2 previous lung Mets and possible humeral head met have decreased in FDG uptake indicating positive response to radiation treatment, no other new disease 08/09/2023 Critical Imaging PET/CT demonstrated no evidence of disease 11/15/2023 Critical Imaging PET/CT demonstrated development of the isolated soft tissue nodule in the right internal mammary/intercostal region measuring 5 mm suspicious for an isolated metastasis and progression of disease 11/26/2023 Other Patient wished to continue with current systemic therapy with Keytruda and Lenvima with hopes of radiation treatment to the single isolated met. 12/20/2023 - 12/29/2023 Radiation Therapy High dose radiotherapy to the right chest wall/internal mammary lymph node initiated to a total dose of 5000 cGy in 5 fractions. 02/28/2024 Critical Imaging PET/CT demonstrated complete response to therapy INTERVAL HISTORY The patient was seen and examined today with Dr. Durant. The patient reports doing well overall. He denies any significant symptoms while on radiation treatment, including changes to his breathing, pain flare, or redness to the skin. He continues to deny any of the symptoms at this time. He denies any pain overall. He reports tolerating his systemic therapy well. His ECOG performance status is 0. REVIEW OF SYSTEMS Review of systems was negative except as documented above. OBJECTIVE BP 148/68 (BP Location: Left arm, Patient Position: Sitting, Cuff Size: Regular) Pulse (!) 58 Temp 36.3 ??C (Temporal) Wt 75.2 kg PHYSICAL EXAM General: Patient is alert and oriented in no apparent distress. ASSESSMENT / PLAN #1 Stage IV (cT2a, cN1, cM1) metastatic renal cell carcinoma right s/p neoadjuvant therapy and right nephrectomy May 2022 #2 Restarted Keytruda and Lenvima June 2022 #3 Continued progression of lung metastases #4 SBRT to the right upper lobe tumor completed November 20, 2022 #5 SBRT to the right lower lobe tumor completed November 30, 2022 #6 Single fraction SBRT to right humeral head lesion completed on February 26, 2023 #7 High dose radiotherapy to the right chest wall/internal mammary lymph node initiated on November; completed December 29, 2023 It was a pleasure to meet with Rita today. He is doing well now 3 months out from radiation treatment. He did not experience any acute side effects while on treatment, nor is he experiencing any long-term side effects at this time. He continues following with Dr. Gio Lopez, [facility], and was last seen in early February after repeat PET/CT imaging which demonstrated complete response to therapy and no new disease. They plan oncontinuing with systemic Keytruda and Lenvima at this time. Being that he is followed closely by Dr. Lopez, we will not schedule any formal follow-up here in Radiation Oncology. We discussed referralback to us if new sites of disease develop. We encouraged him to contact us at any point down the road with questions or concerns. He verbally expressed his understanding of the plan. EDUCATION Ready to learn, no apparent learning barriers were identified; learning preferences include listening. Explained diagnosis and treatment plan; patient expressed understanding of the content. I personally spent 20 minutes in care of the patient today. Time includes both non face to face andface to face patient care. Signed by: Jimena Matthews APRN, C.N.P., Karen.N.P. 03/24/2024 2:46 PM CDT [facility] [address] [place] [address] Cosigned by Arnaud Durant M.D. at 03/31/2024 10:39 AM PROCUREMENT ASSISTANT UREMENT ASSISTANT Associated attestation - Arnaud Durant M.D. - 03/31/2024 10:39 AM PROCUREMENT ASSISTANT I was the supervising physician in the delivery of the service. I personally saw the patient and reviewed the indications and goals of treatment as well as the potential risks and adverse effects with the patient. I agree with the documentation provided by Jimena Matthews. We reviewed the imaging results with him and his continued follow up and management plan with Medical Oncology. He was strongly encouraged to contact us with any questions or concerns. I am pleased with the excellent treatment response seen on imaging. documented in this encounter Plan of Treatment Scheduled Referrals Name Type Priority Associated Diagnoses Order Schedule Radiation Oncology office visit (clinic) Outpatient Referral Routine Once for 1 Occurrences starting 03/24/2024 until 03/24/2024 documented as of this encounter Visit Diagnoses Diagnosis Secondary Malignant Neoplasm Lung Right (HCC)- Primary Carcinoma Renal Cell Right (HCC) documented in this encounter Additional Health Concerns Infection Onset Date Last Indicated Resolved Time Protective Environment 10/26/2022 10/26/2022 documented as of this encounter
--- OUTSIDE RECORDS SUMMARY | 2024-04-27 12:40 | XMS_ITS | Encounter Summary ---
Author Organization [facility] Address [address] [place] [address] Phone Care Team Providers Care Emergency Medicine Medical Director Name Role Phone Gianluca Anne MD Primary Care Provider [phone] Encounter Details Date Type Department Care Team (Latest Contact Info) Description 04/06/2024 2:00 PM RULES EXAMINER Office Visit [facility] [address] [place] [address] Christina Coelho PA [address] [facility] [address] [id number] Essential hypertension (Primary Dx); Stage 3a chronic kidney disease (CMS-HCC); Proteinuria, not otherwise specified; S/P nephrectomy Social History Tobacco Use Types Packs/Day Years [...] Comments Blood Pressure 162/84 04/06/2024 2:44 PM RULES EXAMINER Pulse 59 04/06/2024 2:08 PM RULES EXAMINER Temperature 36.3 C (97.4 F) 04/06/2024 2:08 PM RULES EXAMINER Respiratory Rate - - Oxygen Saturation - - Inhaled Oxygen Concentration - - Weight 75.8 kg (167 lb) 04/06/2024 2:08 PM RULES EXAMINER Height - - Body Mass Index 23.96 12/22/2022 1:35 PM CDT documented in this encounter Progress Notes * JENNIFER Krishnamurthy - 04/06/2024 2:00 PM CSTSummary: CKD3/HTN Images from the original note were not included. [facility] Rita Wesley Date of : 1945 Date of Service: 04/06/2024 Primary care provider: GIANLUCA ANNE MD Primary multi spindle operator: Dr. Aneta Dyer HPI: Rita Wesley is a 78 y.o. male who presents for follow up of CKD III and HTN. PMH significant for HTN Afib, BPH, T2DM, and R RCC. He is accompanied by his , Anurag in clinic today. He last saw Dr. Esparza in February for follow-up. Since then, his home blood pressures have been rising. He continues to follow with [facility]. Energy level has been ok. No itching, or N/V. Appetite is good. Food tastes normal. No abdominal pain, constipation, diarrhea, fever or chills. Home blood pressures have been: 150-170s/80-90s. His blood pressure was elevated in clinic today aswell. Asymptomatic. No lightheadedness or dizziness. No chest pain, shortness of breath or swelling. He is taking diltiazem 240mg, metoprolol 12.5mg BID, and flomax 0.8mg daily. No issues with urination. No dysuria, hematuira, pelvic pain, flank pain, or decrease in urine output. He drinks about 30 oz of water daily. He tries to follow a low sodium diet. He avoids NSAIDs. He and his plan to leave for [place] in May and return in August. Past Medical History: Past Medical History: Diagnosis Date Diabetes mellitus without mention of complication, type II or unspecified type, not stated as uncontrolled (CMS-HCC) Disorder of thyroid Essential hypertension Other malignant neoplasm of unspecified site (CMS-HCC) Past Surgical History: Procedure Laterality Date EYE SURGERY HERNIA REPAIR does not have any pertinent problems on file. Social and Family History: Family History Problem Relation Age of Onset Miscarriages / Stillbirths Mother Hearing loss Mother Arthritis Mother Cancer Father Diabetes Brother Cancer Brother Alcohol abuse Daughter Alcohol abuse Son Rita Wesley reports that he has never smoked. He has never been exposed to tobacco smoke. He has never used smokeless tobacco. He reports current alcohol use. He reports that he does not use drugs. Medications: Current Outpatient Medications: acetaminophen (TYLENOL) 325 MG [...] mouth in the morning., Disp: , Rfl: losartan (COZAAR) 25 MG tablet, Take 1 tablet (25 mg total) by mouth 1 (one) time each day, Disp: 30 tablet, Rfl: 1 Today's Medication Changes Accurate as of April 06, 2024 2:48 PM. If you have any questions, ask your nurse or doctor. START taking these medications losartan 25 MG tablet Commonly known as: COZAAR Take 1 tablet (25 mg total) by mouth 1 (one) time each day Started by: Christina Coelho Where to Get Your Medications These medications were sent to [facility] [address] [place], [place] - [address] [facility] [address] losartan 25 MG tablet Allergies: Rita Wesley is allergic to remeron [mirtazapine], sulfa antibiotics, sulfacetamide, and metformin. Review of Systems: Review of Systems Constitutional: Negative for activity change, appetite change, chills, fatigue, fever and unexpected weight change. HENT: Negative for congestion, rhinorrhea and sore throat. Respiratory: Negative for cough, shortness of breath, wheezing and stridor. Cardiovascular: Negative for chest pain, palpitations and leg swelling. Gastrointestinal: Negative for abdominal distention, abdominal pain, blood in stool, constipation, diarrhea, nausea and vomiting. Genitourinary: Negative for bladder incontinence, decreased urine volume, difficulty urinating, dysuria, enuresis, flank pain, frequency, hematuria, nocturia and urgency. Skin: Negative. Neurological: Negative for dizziness, weakness, light-headedness and headaches. ROS: A 12 system review of systems was negative other than noted here or above. Physical Exam: BP 162/84 (BP Location: Left arm, Patient Position: Sitting, BP Cuff Size: Adult) Pulse 59 Temp97.4 ??F (36.3 ??C) (Temporal) BMI 23.96 kg/m?? Physical Exam Vitals reviewed. Constitutional: General: He is not in acute distress. Appearance: He is well-developed and well-nourished. HENT: Head: Normocephalic and atraumatic. Neck: Musculoskeletal: Neck supple. Vascular: No JVD. Cardiovascular: Rate and Rhythm: Normal rate and regular rhythm. Pulses: Intact distal pulses. Heart sounds: Normal heart sounds. No murmur heard. No friction rub. No gallop. Pulmonary: Effort: Pulmonary effort is normal. Breath sounds: Normal breath sounds. No stridor. No wheezing. Skin: General: Skin is warm and dry. Capillary Refill: Capillary refill takes less than 2 seconds. Neurological: Mental Status: He is alert and oriented to person, place, and time. Psychiatric: Mood and Affect: Mood and affect normal. Behavior: Behavior normal. Thought Content: Thought content normal. Judgment: Judgment normal. Labs and Imaging: Labs were reviewed in Care Everywhere. Results: No visits with results within 1 Day(s) from this visit. Latest known visit with results is: Orders Only on 11/21/2023 Component Date Value Ref Range Status Creatinine, Urine 11/21/2023 65 20 - 320 mg/dL Final Microalbumin, Urine 11/21/2023 12.3 See Note: mg/dL Final Comment: Reference Range: Reference Range Not established Albumin/Creatinine, Urine 11/21/2023 189 (H) <30 mg/g creat Final Comment: The ADA defines abnormalities in albumin excretion as follows: Albuminuria Category Result (mg/g creatinine) Normal to Mildly increased <30 Moderately increased 30-299 Severely increased > OR = 300 The ADA recommends that at least two of three specimens collected within a 3-6 month period be abnormal before considering a patient to be within a diagnostic category. Referrals: Provider Modality Education: Modality Planning: Access Type(s): ASSOCIATE VETERINARIAN Status: Transplant Status: Assessment/Plan: CKD Stage IIIa secondary to HTN and RCC. Baseline 1.4-1.6. On 03/30, creatinine 1.4 with eGFR 51. History of proteinuria. On 03/23, ACR 1400. Not on ARB. History of hyperkalemia. Labs [facility] including BMP, UA, and ACR. Encouraged to stay well hydrated. Avoid NSAIDs. Secondary management of blood pressure and blood glucose control. R RCC s/p nephrectomy. He follows with [facility]. Solitary kidney. HTN Essential (Primary). Uncontrolled. Home Bps 150-170s/80-90s. His blood pressure was elevated inclinic today as well. Asymptomatic. Continue taking diltiazem 240mg, metoprolol 12.5mg BID, and flomax 0.8mg daily. Start Losartan 25mg daily. Continue to monitor home blood pressures. Labs [facility] including BMP, UA, and ACR. 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 Managed by [facility]. On 03/30, creatinine 12.9. BPH. On Flomax. MBD. Will need to update labs at next visit. T2DM. On 03/23, A1c 5.6%. Diet controlled. F/u plan: - Return to clinic in 1 month - Start Losartan 25mg daily. - Will obtain laboratories at [facility] including BMP, UA, and ACR. Will adjust follow up as needed based on results. Christina Coelho PA-C [facility] documented in this encounter Plan of Treatment Upcoming Encounters Date Type Department Care Team (Late st Contact Info) Description 05/11/2024 3:00 PM RULES EXAMINER Office Visit [facility] [address] [place] [address] Christina Coelho PA [address] [facility] [address] [id number] documented as of this encounter Visit Diagnoses Diagnosis Essential hypertension- Primary Stage 3a chronic kidney disease ([facility]-HCC) Proteinuria, not otherwise specified S/P nephrectomy documented in this encounter Care Teams Emergency Medicine Medical Director Relationship Specialty Start Date End Date Gianluca Anne MD [address] [place] [address] PCP - General 08/26/22 documented as of this encounter
--- OUTSIDE RECORDS SUMMARY | 2024-04-27 12:40 | XMS_ITS ---
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 Past Plans No past plan information found. Radiation Treatments * Plan Last Treated On Elapsed Days Fractions Treated Prescribed Fraction Dose Prescribed Total Dose [id number] 12/29/2023 9 5 of 5 1,000 cGy 5,000 cGy [id number] 02/26/2023 0 1 of 1 2,400 cGy 2,400 cGy [id number] 11/30/2022 19 4 of 4 1,250 cGy 5,000 cG y [id number] 11/20/2022 9 8 of 8 750 cGy 6,000 cGy Reference Point Last Treated On Elapsed Days Session Dose Total Dose [id number] 12/29/2023 9 1,000 cGy 5,000 cG y [id number] 02/26/2023 0 2,400 cGy 2,400 cGy [id number] 11/30/2022 19 1,250 cGy 5,000 cGy [id number] 11/20/2022 9 750 cGy 6,000 cGy
== END 2024-04-27 13:53 | disposition home or self-care (01) ==
PROVIDERS: Emergency Provider Emergency Medicine Emergency Medical Services; PCP Family Medicine
DX: I47.9 Paroxysmal tachycardia, unspecified (principal)
CPT/HCPCS: 93005; 99283; 99284

== ENCOUNTER 2024-12-31 11:32 | Inpatient (IN) | payer MEDICARE, BC, SELFPAY ==
--- OUTSIDE RECORDS SUMMARY | 2024-11-28 07:54 | XMS_ITS | Continuity of Care Document ---
Author Name [facility] Organization [facility] Care Team Providers Care Billboard Poster Name Role Phone [facility] Unavailable Unavailable Problems Combined list of problems from Department of Defense and Veterans Affairs facilities. It does not include entries that were removed or entered in error. Problem Status Onset Date Problem Type Date of Resolution Comments Source Exposure to potentially hazardous substance (RUST [id number]) Active 07/30/19 24 Condition Jul 30, 2023 Entered By: GEETHA SAPP Comment: [facility] LEON Documentation Initiative [facility] Benign Prostatic Hypertrophy without Outflow Obstruction (RUST [id number]) Active Condition [facility] Chronic kidney disease Active Condition [facility] Diabetes Mellitus Type 2 (RUST [id number]) Active Condition Apr 14, 2023 Entered By: IRASEMA RUIZ Comment: stopped medications after losing weight 2/2 cancer [facility] GERD - Gastro-Esophageal Reflux Disease (RUST [id number]) Active Condition [facility] HTN - Hypertension (RUST [id number]) Active Condition [facility] Hypothyroidism (RUST [id number]) Active Condition [facility] Paroxysmal atrial fibrillation Active Condition Apr 14, 2023 Entered By: IRASEMA RUIZ Comment: Previously on Aspirin but had GI bleed and stopped per patientNov 2022 Entered By: IRASEMA RUIZ Comment: told patient to review this again with his non[facility] doctors to see if should be back on aspirin [facility] Past history Active Condition Apr 14, 2023 [...] 2x/m, [employer]-; AO exposure [facility] Renal cell carcinoma Active Condition Apr 14, 2023 Entered By: IRASEMA RUIZ Comment: dx 2021, R nephrectomy 05/2022, s/p xrt to metastatic lesions, on Keytruda and LenvimaNov 2022 Entered By: IRASEMA RUIZ Comment: Current oncologist Dr. Lopez; txf to [place] desired [facility] Diagnosis: ICD-10-CM I10 Essential (primary) hypertension Active Diagnosis [facility] Medications Combined list of outpatient medications from Department of Defense and [facility] Affairs facilities.Medications provided include 1) outpatient medications from the last 15 months, and 2) patient-reported medications. Medication Details Route Status Patient Instructions Prescription Expires Prescription Number Last Dispense Date Ordering Provider Order Date Order Qty Source ACETAMINOPH EN 325MG TAB TAKE TWO TABLETS BY MOUTH TWO TIMES A DAY ORAL ACTIVE JOSEPH IRASEMA 2022 [facility] DILTIAZEM (EQV-TIAZAC AB4) 240MG 24HR CAP TAKE 1 CAPSULE BY MOUTH EVERY DAY ORAL ACTIVE JOSEPH IRASEMA 2022 [facility] HYDRALAZINE HCL 25MG TAB TAKE ONE TABLET BY MOUTH THREE TIMES A DAY FOR BLOOD PRESSURE ORAL 05/21/2024 [id number] JOSEPH IRASEMA 2023 30 [facility] LENVATINIB CAP,ORAL TAKE BY MOUTH ORAL ACTIVE JOSEPH IRASEMA 2022 [facility] LEVOTHYROXI NE NA 100MCG TAB (SYNTHROID) TAKE ONE TABLET BY MOUTH EVERY DAY ORAL ACTIVE JOSEPH IRASEMA 2022 [facility] METOPROLOL TARTRATE TAB TAKE 12.5MG BY MOUTH TWICE A DAY ORAL ACTIVE JOSEPH IRASEMA 2022 [facility] OMEPRAZOLE 20MG CAP,EC TAKE 1 CAPSULE BY MOUTH EVERY DAY ORAL ACTIVE BRENNASHIVAM IRASEMA 2022 [facility] PEMBROLIZUM AB INJ,SOLN INJECT ACTIVE JOSEPH IRASEMA 2022 [facility] TAMSULOSIN HCL 0.4MG CAP TAKE 2 CAPSULES BY MOUTH EVERY DAY ORAL ACTIVE JOSEPH IRASEMA 2022 [facility] Allergies, Adverse Reactions, Alerts Combined list of allergies from Department of Defense and Veterans Affairs facilities. It does not include entries that were removed or entered in error. Substance Category Reaction Severity Reaction type Status Date Reported Comments Source SULFA DRUGS Propensity to adverse reactions to drug (finding) Urticaria active 3 [facility] Immunizations Combined list of available immunizations from the Department of Defense and Veterans Affairs facilities. Immunization Series Date Given Administered By Site Reaction Lot Number CVX Code Drug Advertising Designer Status Comments Source INFLUENZA, HIGH-DOSE, TRIVALENT, PF 2023 135 complet ed HISTORICA L INFORMATI ON - FROM OTHER [facility], [facility] COVID-19 (Vestiage), MRNA, LNP-S, PF, LUIS-SUCROSE, 30 MCG/0.3 ML (AGES 12+ YEARS) 1 2022 BOBBY RUBALCAVA G LEFT DELTO ID [id number] 309 complet ed [facility] [place], [facility] INFLUENZA, HIGH-DOSE, QUADRIVALENT 2022 197 complet ed HISTORICA L INFORMATI ON - FROM OTHER [facility], [facility] PNEUMOCOCCAL CONJUGATE PCV20, POLYSACCHARID E [id number] CONJUGATE, ADJUVANT, PF 2022 216 complet ed HISTORICA L INFORMATI ON - FROM OTHER [facility], [facility] COVID-19 (PFIZER), MRNA, LNP-S, BIVALENT, PF, 30 MCG/0.3 ML DOSE 2021 300 complet ed HISTORICA L INFORMATI ON - FROM OTHER [facility], [facility] INFLUENZA, HIGH-DOSE, QUADRIVALENT 2021 197 complet ed HISTORICA L INFORMATI ON - FROM OTHER [facility], [facility] INFLUENZA, RECOMBINANT, QUADRIVALENT, INJECTABLE, PRESERVATIVE FREE 2020 185 complet ed HISTORICA L INFORMATI ON - FROM OTHER [facility], [facility] COVID-19 (Vestiage), MRNA, LNP-S, PF, 30 MCG/0.3 ML DOSE 2020 208 complet ed HISTORICA L INFORMATI ON - FROM OTHER [facility], [facility] INFLUENZA, HIGH-DOSE, QUADRIVALENT 2019 197 complet ed HISTORICA L INFORMATI ON - FROM OTHER [facility], [facility] INFLUENZA, INJECTABLE, QUADRIVALENT, PRESERVATIVE FREE 2018 150 complet ed HISTORICA L INFORMATI ON - FROM OTHER REGISTRY, [facility] ZOSTER RECOMBINANT 2018 187 complet ed HISTORICA L INFORMATI ON - FROM OTHER REGISTRY, [facility] ZOSTER RECOMBINANT 2018 187 complet ed HISTORICA L INFORMATI ON - FROM OTHER REGISTRY, [facility] INFLUENZA, HIGH DOSE SEASONAL 2017 135 complet ed HISTORICA L INFORMATI ON - FROM OTHER REGISTRY, [facility] INFLUENZA, HIGH DOSE SEASONAL 2016 135 complet ed HISTORICA L INFORMATI ON - FROM OTHER REGISTRY, [facility] INFLUENZA, HIGH DOSE SEASONAL 2015 135 complet ed HISTORICA L INFORMATI ON - FROM OTHER REGISTRY, [facility] TD (ADULT), 5 LF TETANUS TOXOID, PRESERVATIVE FREE, ADSORBED 2015 113 complet ed HISTORICA L INFORMATI ON - FROM OTHER REGISTRY, [facility] INFLUENZA, HIGH DOSE SEASONAL 2014 135 complet ed HISTORICA L INFORMATI ON - FROM OTHER REGISTRY, [facility] ZOSTER LIVE 2014 121 complet ed HISTORICA L INFORMATI ON - FROM OTHER REGISTRY, [facility] PNEUMOCOCCAL CONJUGATE PCV 13 2013 133 complet ed HISTORICA L INFORMATI ON - FROM OTHER REGISTRY, [facility] PNEUMOCOCCAL POLYSACCHARID E PPV23 2009 33 complet ed HISTORICA L INFORMATI ON - FROM OTHER REGISTRY, [facility] NOVEL INFLUENZA-H1N 1-09, ALL FORMULATIONS 2008 128 complet ed HISTORICA L INFORMATI ON - FROM OTHER REGISTRY, [facility] Results Combined list of recent chemistry, hematology [...] Apr 21, 2024 10:33 AM Reporting Lab: [facility] [address] Performing Lab: [facility] [address] [place] [facility] ALBUMIN/C REATININE RATIO URINE MICROALBUMI N/CREATININ E [MASS RATIO] IN URINE 3553.6 mg/g{c reat} <29.9 - 29.9 04/21 H Specimen Type: URINE No comment entered. Ordering Provider: NICK RUIZ Report Released Date/Time: Apr 21, 2024 10:33 AM Reporting Lab: [facility] [address] Performing Lab: [facility] [address] [place] [facility] ALBUMIN/C REATININE RATIO URINE MICROALBUMI N [MASS/VOLUM E] IN URINE 3759.7 mg/L <29.9 - 29.9 04/21 H Specimen Type: URINE No comment entered. Ordering Provider: NICK RUIZ Report Released Date/Time: Apr 21, 2024 10:33 AM Reporting Lab: [facility] [address] Performing Lab: [facility] [address] [place] [facility] CBC LEUKOCYTES [#/VOLUME] IN BLOOD BY AUTOMATED COUNT 4.9 4.0 - 11.0 04/21 Specimen Type: BLOOD No comment entered. Ordering Provider: NICK RUIZ Report Released Date/Time: Apr 14, 2023 09:15 PM Reporting Lab: [facility] [address] Performing Lab: [facility] [address] [place] [facility] CBC ERYTHROCYTE S [#/VOLUME] IN BLOOD BY AUTOMATED COUNT 4.15 4.60 - 6.20 04/21 L Specimen Type: BLOOD No comment entered. Ordering Provider: NICK RUIZ Report Released Date/Time: Apr 14, 2023 09:15 PM Reporting Lab: [facility] [address] Performing Lab: [facility] [address] [place] [facility] CBC HEMOGLOBIN [MASS/VOLUM E] IN BLOOD 13.3 g/dL 13.5 - 17.9 04/21 L Specimen Type: BLOOD No comment entered. Ordering Provider: NICK RUIZ Report Released Date/Time: Apr 14, 2023 09:15 PM Reporting Lab: [facility] [address] Performing Lab: [facility] [address] [place] [facility] CBC HEMATOCRIT [VOLUME FRACTION] OF BLOOD BY AUTOMATED COUNT 40.5 41.0 - 54.0 04/21 L Specimen Type: BLOOD No comment entered. Ordering Provider: NICK RUIZ Report Released Date/Time: Apr 14, 2023 09:15 PM Reporting Lab: [facility] [address] Performing Lab: [facility] [address] [place] [facility] CBC MCV [ENTITIC VOLUME] BY AUTOMATED COUNT 97.6 fL 80.0 - 100.0 04/21 Specimen Type: BLOOD No comment entered. Ordering Provider: NICK RUIZ Report Released Date/Time: Apr 14, 2023 09:15 PM Reporting Lab: [facility] [address] Performing Lab: [facility] [address] [place] [facility] CBC MCH [ENTITIC MASS] BY AUTOMATED COUNT 32.0 pg 27.0 - 33.0 04/21 Specimen Type: BLOOD No comment entered. Ordering Provider: NICK RUIZ Report Released Date/Time: Apr 14, 2023 09:15 PM Reporting Lab: [facility] [address] Performing Lab: [facility] [address] [place] [facility] CBC MCHC [MASS/VOLUM E] BY AUTOMATED COUNT 32.8 g/dL 32.0 - 37.5 04/21 Specimen Type: BLOOD No comment entered. Ordering Provider: NICK RUIZ Report Released Date/Time: Apr 14, 2023 09:15 PM Reporting Lab: [facility] [address] Performing Lab: [facility] [address] [place] [facility] CBC PLATELETS [#/VOLUME] IN BLOOD BY AUTOMATED COUNT 139 150 - 400 04/21 L Specimen Type: BLOOD No comment entered. Ordering Provider: NICK RUIZ Report Released Date/Time: Apr 14, 2023 09:15 PM Reporting Lab: [facility] [address] Performing Lab: [facility] [address] [place] [facility] CBC PLATELET MEAN VOLUME [ENTITIC VOLUME] IN BLOOD BY AUTOMATED COUNT 10.6 fL 9.1 - 13.0 04/21 Specimen Type: BLOOD No comment entered. Ordering Provider: NICK RUIZ Report Released Date/Time: Apr 14, 2023 09:15 PM Reporting Lab: [facility] [address] Performing Lab: [facility] [address] [place] [facility] CBC ERYTHROCYTE DISTRIBUTIO N WIDTH [RATIO] BY AUTOMATED COUNT 13.0 11.5 - 14.5 04/21 Specimen Type: BLOOD No comment entered. Ordering Provider: NICK RUIZ Report Released Date/Time: Apr 14, 2023 09:15 PM Reporting Lab: [facility] [address] Performing Lab: [facility] [address] [place] [facility] CBC PLATELETS RETICULATED /100 PLATELETS IN BLOOD BY AUTOMATED COUNT 4.2 0 - 10 04/21 Specimen Type: BLOOD No comment entered. Ordering Provider: NICK RUIZ Report Released Date/Time: Apr 14, 2023 09:15 PM Reporting Lab: [facility] [address] Performing Lab: [facility] [address] [place] [facility] BASIC METABOLIC PANEL+MG CREATININE [MASS/VOLUM E] IN SERUM OR PLASMA 1.3 mg/dL 0.7 - 1.2 04/21 H Specimen Type: PLASMA No comment entered. Ordering Provider: NICK RUIZ Report Released Date/Time: Apr 14, 2023 09:15 PM Reporting Lab: [facility] [address] Performing Lab: [facility] [address] [place] [facility] BASIC METABOLIC PANEL+MG UREA NITROGEN [MASS/VOLUM E] IN SERUM OR PLASMA 19 mg/dL 8 - 26 04/21 Specimen Type: PLASMA No comment entered. Ordering Provider: NICK RUIZ Report Released Date/Time: Apr 14, 2023 09:15 PM Reporting Lab: [facility] [address] Performing Lab: [facility] [address] [place] [facility] BASIC METABOLIC PANEL+MG GLUCOSE [MASS/VOLUM E] IN SERUM OR PLASMA 113 mg/dL 70 - 100 04/21 H Specimen Type: PLASMA No comment entered. Ordering Provider: NICK RUIZ Report Released Date/Time: Apr 14, 2023 09:15 PM Reporting Lab: [facility] [address] Performing Lab: [facility] [address] [place] [facility] BASIC METABOLIC PANEL+MG SODIUM [MOLES/VOLU ME] IN SERUM OR PLASMA 139 mmol/L 136 - 145 04/21 Specimen Type: PLASMA No comment entered. Ordering Provider: NICK RUIZ Report Released Date/Time: Apr 14, 2023 09:15 PM Reporting Lab: [facility] [address] Performing Lab: [facility] [address] [place] [facility] BASIC METABOLIC PANEL+MG POTASSIUM [MOLES/VOLU ME] IN SERUM OR PLASMA 4.0 mmol/L 3.5 - 5.1 04/21 Specimen Type: PLASMA No comment entered. Ordering Provider: NICK RUIZ Report Released Date/Time: Apr 14, 2023 09:15 PM Reporting Lab: [facility] [address] Performing Lab: [facility] [address] [place] [facility] BASIC METABOLIC PANEL+MG CHLORIDE [MOLES/VOLU ME] IN SERUM OR PLASMA 109 mmol/L 98 - 107 04/21 H Specimen Type: PLASMA No comment entered. Ordering Provider: NICK RUIZ Report Released Date/Time: Apr 14, 2023 09:15 PM Reporting Lab: [facility] [address] Performing Lab: [facility] [address] [place] [facility] BASIC METABOLIC PANEL+MG CARBON DIOXIDE, TOTAL [MOLES/VOLU ME] IN SERUM OR PLASMA 24 mmol/L 22 - 04/21 Specimen Type: PLASMA No comment entered. Ordering Provider: NICK RUIZ Report Released Date/Time: Apr 14, 2023 09:15 PM Reporting Lab: [facility] [address] Performing Lab: [facility] [address] [place] [facility] BASIC METABOLIC PANEL+MG CALCIUM [MASS/VOLUM E] IN SERUM OR PLASMA 8.5 mg/dL 8.4 - 10.2 04/21 Specimen Type: PLASMA No comment entered. Ordering Provider: NICK RUIZ Report Released Date/Time: Apr 14, 2023 09:15 PM Reporting Lab: [facility] [address] Performing Lab: [facility] [address] [place] [facility] BASIC METABOLIC PANEL+MG MAGNESIUM [MASS/VOLUM E] IN SERUM OR PLASMA 1.9 mg/dL 1.6 - 2.6 04/21 Specimen Type: PLASMA No comment entered. Ordering Provider: NICK RUIZ Report Released Date/Time: Apr 14, 2023 09:15 PM Reporting Lab: [facility] [address] Performing Lab: [facility] [address] [place] [facility] BASIC METABOLIC PANEL+MG ANION GAP IN SERUM OR PLASMA 6 mmol/L 5 - 15 04/21 Specimen Type: PLASMA No comment entered. Ordering Provider: NICK RUIZ Report Released Date/Time: Apr 14, 2023 09:15 PM Reporting Lab: [facility] [address] Performing Lab: [facility] [address] [place] [facility] BASIC METABOLIC PANEL+MG GLOMERULAR FILTRATION RATE/1.73 SQ M.PREDICTED [VOLUME RATE/AREA] IN SERUM, PLASMA OR BLOOD BY CREATININE- BASED FORMULA (CKD-EPI 2020) 56 60 04/21 L Specimen Type: PLASMA No comment entered. Ordering Provider: NICK RUIZ Report Released Date/Time: Apr 14, 2023 09:15 PM Reporting Lab: [facility] [address] Performing Lab: [facility] [address] [address] [facility] AST/SGOT ASPARTATE AMINOTRANSF ERASE [ENZYMATIC ACTIVITY/VO LUME] IN SERUM OR PLASMA 25 U/L 11 - 34 04/21 Specimen Type: PLASMA No comment entered. Ordering Provider: NICK RUIZ Report Released Date/Time: Apr 14, 2023 09:15 PM Reporting Lab: [facility] [address] Performing Lab: [facility] [address] [address] [facility] ALT/SGPT ALANINE AMINOTRANSF ERASE [ENZYMATIC ACTIVITY/VO LUME] IN SERUM OR PLASMA 19 U/L <44 - 44 04/21 Specimen Type: PLASMA No comment entered. Ordering Provider: NICK RUIZ Report Released Date/Time: Apr 14, 2023 09:15 PM Reporting Lab: [facility] [address] Performing Lab: [facility] [address] [address] [facility] HEMOGLOBI N A1C HEMOGLOBIN A1C/HEMOGLO BIN.TOTAL [...] Apr 14, 2023 09:15 PM Reporting Lab: [facility] [address] Performing Lab: [facility] [address] [facility] [facility] TSH W/REFLEX TO FREE T4 THYROTROPIN [UNITS/VOLU ME] IN SERUM OR PLASMA 1.78 u[IU]/ mL 0.35 - 4.94 04/21 Specimen Type: PLASMA No comment entered. Ordering Provider: NICK RUIZ Report Released Date/Time: Apr 14, 2023 09:15 PM Reporting Lab: [facility] [address] Performing Lab: [facility] [address] [address] [facility] CBC LEUKOCYTES [#/VOLUME] IN BLOOD BY AUTOMATED COUNT 5.07 10*3/u L 4.0 - 11.0 04/14 Specimen Type: BLOOD No comment entered. Ordering Provider: NICK RUIZ Report Released Date/Time: Apr 14, 2023 10:20 AM Reporting Lab: [facility] [address] Performing Lab: [facility] [address] [address] [facility] CBC ERYTHROCYTE S [#/VOLUME] IN BLOOD BY AUTOMATED COUNT 4.00 10*6/u L 4.6 - 6.2 04/14 L Specimen Type: BLOOD No comment entered. Ordering Provider: NICK RUIZ Report Released Date/Time: Apr 14, 2023 10:20 AM Reporting Lab: [facility] [address] Performing Lab: [facility] [address] [address] [facility] CBC HEMOGLOBIN [MASS/VOLUM E] IN BLOOD 13.2 g/dL 13.5 - 17.9 04/14 L Specimen Type: BLOOD No comment entered. Ordering Provider: NICK RUIZ Report Released Date/Time: Apr 14, 2023 10:20 AM Reporting Lab: [facility] [address] Performing Lab: [facility] [address] [address] [facility] CBC HEMATOCRIT [VOLUME FRACTION] OF BLOOD BY AUTOMATED COUNT 39.1 41 - 54 04/14 L Specimen Type: BLOOD No comment entered. Ordering Provider: NICK RUIZ Report Released Date/Time: Apr 14, 2023 10:20 AM Reporting Lab: [facility] [address] Performing Lab: [facility] [address] [address] [facility] CBC MCV [ENTITIC VOLUME] BY AUTOMATED COUNT 97.8 fL 80 - 100 04/14 Specimen Type: BLOOD No comment entered. Ordering Provider: NICK RUIZ Report Released Date/Time: Apr 14, 2023 10:20 AM Reporting Lab: [facility] [address] Performing Lab: [facility] [address] [address] [facility] CBC MCH [ENTITIC MASS] BY AUTOMATED COUNT 33.0 pg 27 - 33 04/14 Specimen Type: BLOOD No comment entered. Ordering Provider: NICK RUIZ Report Released Date/Time: Apr 14, 2023 10:20 AM Reporting Lab: [facility] [address] Performing Lab: [facility] [address] [address] [facility] CBC MCHC [MASS/VOLUM E] BY AUTOMATED COUNT 33.8 g/dL 32.0 - 37.5 04/14 Specimen Type: BLOOD No comment entered. Ordering Provider: NICK RUIZ Report Released Date/Time: Apr 14, 2023 10:20 AM Reporting Lab: [facility] [address] Performing Lab: [facility] [address] [address] [facility] CBC PLATELETS [#/VOLUME] IN BLOOD BY AUTOMATED COUNT 151 10*3/u L 150 - 400 04/14 Specimen Type: BLOOD No comment entered. Ordering Provider: NICK RUIZ Report Released Date/Time: Apr 14, 2023 10:20 AM Reporting Lab: [facility] [address] Performing Lab: [facility] [address] [address] [facility] CBC PLATELET MEAN VOLUME [ENTITIC VOLUME] IN BLOOD BY AUTOMATED COUNT 10.4 fL 7.4 - 10.4 04/14 Specimen Type: BLOOD No comment entered. Ordering Provider: NICK RUIZ Report Released Date/Time: Apr 14, 2023 10:20 AM Reporting Lab: [facility] [address] Performing Lab: [facility] [address] [address] [facility] CBC ERYTHROCYTE DISTRIBUTIO N WIDTH [RATIO] BY AUTOMATED COUNT 12.8 11.5 - 14.5 04/14 Specimen Type: BLOOD No comment entered. Ordering Provider: NICK RUIZ Report Released Date/Time: Apr 14, 2023 10:20 AM Reporting Lab: [facility] [address] Performing Lab: [facility] [address] [address] [facility] COMPREHEN SIVE METABOLIC PANEL+MG CREATININE [MASS/VOLUM E] [...] Apr 14, 2023 10:20 AM Reporting Lab: [facility] [address] Performing Lab: [facility] [address] [address] [facility] COMPREHEN SIVE METABOLIC PANEL+MG UREA NITROGEN [MASS/VOLUM [...] Apr 14, 2023 10:20 AM Reporting Lab: [facility] [address] Performing Lab: [facility] [address] [address] [facility] COMPREHEN SIVE METABOLIC PANEL+MG GLUCOSE [MASS/VOLUM [...] Apr 14, 2023 10:20 AM Reporting Lab: [facility] [address] Performing Lab: [facility] [address] [address] [facility] COMPREHEN SIVE METABOLIC PANEL+MG SODIUM [MOLES/VOLU [...] Apr 14, 2023 10:20 AM Reporting Lab: [facility] [address] Performing Lab: [facility] [address] [facility] COMPREHEN SIVE METABOLIC PANEL+MG POTASSIUM [MOLES/VOLU [...] Apr 14, 2023 10:20 AM Reporting Lab: [facility] [address] Performing Lab: [facility] [address] [address] [facility] COMPREHEN SIVE METABOLIC PANEL+MG CHLORIDE [MOLES/VOLU [...] Apr 14, 2023 10:20 AM Reporting Lab: [facility] [address] Performing Lab: [facility] [address] [place] [facility] COMPREHEN SIVE METABOLIC PANEL+MG CARBON DIOXIDE, [...] Apr 14, 2023 10:20 AM Reporting Lab: [facility] [address] Performing Lab: [facility] [address] [address] IS [facility] COMPREHEN SIVE METABOLIC PANEL+MG CALCIUM [MASS/VOLUM [...] Apr 14, 2023 10:20 AM Reporting Lab: [facility] [id number] Performing Lab: [facility] [address] [address] IS [facility] COMPREHEN SIVE METABOLIC PANEL+MG PROTEIN [MASS/VOLUM [...] Apr 14, 2023 10:20 AM Reporting Lab: [facility] [id number] Performing Lab: [place] [address] [address] IS [facility] COMPREHEN SIVE METABOLIC PANEL+MG ALBUMIN [MASS/VOLUM [...] Apr 14, 2023 10:20 AM Reporting Lab: [facility] [facility] [address] Performing Lab: [facility] [address] [address] IS [facility] COMPREHEN SIVE METABOLIC PANEL+MG BILIRUBIN.T OTAL [...] Apr 14, 2023 10:20 AM Reporting Lab: [facility] [address] Performing Lab: [facility] [address] [place] [facility] COMPREHEN SIVE METABOLIC PANEL+MG MAGNESIUM [MASS/VOLUM [...] Apr 14, 2023 10:20 AM Reporting Lab: [facility] [address] Performing Lab: [facility] [address] [address] [facility] COMPREHEN SIVE METABOLIC PANEL+MG ANION GAP [...] Apr 14, 2023 10:20 AM Reporting Lab: [facility] [address] Performing Lab: [facility] [address] [facility] COMPREHEN SIVE METABOLIC PANEL+MG ALKALINE PHOSPHATASE [...] Apr 14, 2023 10:20 AM Reporting Lab: [facility] [address] Performing Lab: [facility] [address] [place] [facility] COMPREHEN SIVE METABOLIC PANEL+MG ALANINE AMINOTRANSF [...] Apr 14, 2023 10:20 AM Reporting Lab: [facility] [address] Performing Lab: [facility] [address] [address] IS [facility] COMPREHEN SIVE METABOLIC PANEL+MG ASPARTATE AMINOTRANSF ERASE [...] Apr 14, 2023 10:20 AM Reporting Lab: [facility] [address] Performing Lab: [facility] [address] [address] [facility] COMPREHEN SIVE METABOLIC PANEL+MG GLOMERULAR FILTRATION RATE/1.73 [...] Apr 14, 2023 10:20 AM Reporting Lab: [facility] [address] Performing Lab: [facility] [address] [address] IS [facility] HEMOGLOBI N A1C HEMOGLOBIN A1C/HEMOGLO BIN.TOTAL [...] Apr 14, 2023 10:20 AM Reporting Lab: [facility] [address] Performing Lab: [facility] [address] [facility] Vital Signs Combined list of inpatient and outpatient Vital Signs from Department of Defense and Veterans Affairs, ranging from 12 months to all on record, depending upon the facility. Vital Sign Value Date Comments Source SYSTOLIC BLOOD PRESSURE 168 04/21/2024 14:51:48 [facility] DIASTOLIC BLOOD PRESSURE 82 04/21/2024 14:51:48 [facility] PULSE OXIMETRY 97 04/21/2024 14[facility]51:48 [facility] 166 04/21/2024 14:51:48 [facility] BMI 24 kg/m2 04/21/2024 14:51:48 [facility] PAIN 0 04/21/2024 14:51:48 [facility] HEIGHT 70 04/21/2024 14:51:48 [facility] TEMPERATURE 98.3 04/21/2024 14:51:48 [facility] PULSE 64 04/21/2024 14:51:48 [facility] RESPIRATION 17 04/21/2024 14:51:48 [facility] Encounters Combined list of: 1) Encounters from Department of Veterans Affairs facilities going backup to the last 18 months, not all [place] inpatient encounters are included; 2) Encounters from the Department of [facility] facilities going backup to 280 months. Location Location Details Encounter Type Encounter Number Reason For Visit Attending Provider ADM Date DC Date Status Disposition Source [place] [facility] Outpatient Encounter [id number] 03/09 [place] [facility] [place] [facility] Outpatient Encounter [id number] 04/21 [facility] [place] [facility] OFFICE O/P EST MOD 30 MIN [id number] Diagnos is: ICD-10- CM I10 Essenti al (primar y) hyperte Mundo Elizondo [place] 04/21 [place] [facility] [place] [facility] Outpatient Encounter [id number] [facility] A 05/25 [place] [facility] [place] [facility] Outpatient Encounter [id number] [facility] A 05/30 [place] [facility] [id number] ABDULLAHI COPELAND V [facility] [id number] 05/31 [facility] Outpatient Encounter [id number] 06/08 [facility] TARGETED CASE MANAGEMENT [id number] [facility] A 06/09 [place] [facility] Outpatient Encounter [id number] 06/09 [facility] Outpatient Encounter [id number] 06/14 [facility] Social History Combined list of available smoking, tobacco, and other social history from Department of Defense and Veterans Affairs facilities. Social History Type Response Date Comment Sourc e Tobacco smoking status [place]IS [facility]-TOBACCO NEVER USED CIGARETTES 04/21/2024 [facility] [place] of tobacco use [place] OTHER TYPE 04/21/2024 [facility] [place] of tobacco use [place] USED 04/14/2023 [facility] Advance Directives List of completed, amended, or rescinded Advance Directives on record at Department of Veterans Affairs facilities. An actual copy of the Directive is not included. Date Advance Directive Provider Source 04/20/2023 [facility]VANCE [facility] 04/20/2023 ADVANCE DIRECTIVE DISCUSSION DELMY TRAVIS [facility]
--- OUTSIDE RECORDS SUMMARY | 2024-11-28 07:54 | XMS_ITS | Continuity of Care Document ---
Author Name [facility] Organization [facility] Care Team Providers Care Carton Inspector Name Role Phone [facility] Unavailable Unavailable Problems Combined list of problems from Department of Defense and Veterans Affairs facilities. It does not include entries that were removed or entered in error. Problem Status Onset Date Problem Type Date of Resolution Comments Source Exposure to potentially hazardous substance ([facility] [id number]) Active 07/30/19 24 Condition Jul 30, 2023 Entered By: GEETHA SAPP Comment: [facility] LEON Documentation Initiative [facility] Benign Prostatic Hypertrophy without Outflow Obstruction ([facility] [id number]) Active Condition [facility] Chronic kidney disease Active Condition [facility] Diabetes Mellitus Type 2 ([facility] [id number]) Active Condition Apr 14, 2023 Entered By: IRASEMA RUIZ Comment: stopped medications after losing weight 2/2 cancer [facility] GERD - Gastro-Esophageal Reflux Disease ([facility] [id number]) Active Condition [facility] HTN - Hypertension ([facility] [id number]) Active Condition [facility] Hypothyroidism ([facility] [id number]) Active Condition [facility] Paroxysmal atrial fibrillation Active Condition Apr 14, 2023 Entered By: IRASEMA RUIZ Comment: Previously on Aspirin but had GI bleed and stopped per patientNov 2022 Entered By: IRASEMA RUIZ Comment: told patient to review this again with his non[facility] doctors to see if should be back on aspirin [facility] Past history Active Condition Apr 14, 2023 [...] alcohol 2x/m, [employer]-; AO exposure [facility] Renal cell carcinoma Active Condition Apr 14, 2023 Entered By: IRASEMA RUIZ Comment: dx 2021, R nephrectomy 05/2022, s/p xrt to metastatic lesions, on Keytruda and LenvimaNov 2022 Entered By: IRASEMA RUIZ Comment: Current oncologist Dr. Lopez; txf to [place] desired [facility] Diagnosis: ICD-10-CM I10 Essential (primary) hypertension Active Diagnosis [facility] Medications Combined list of outpatient medications from Department of Defense and [facility] Affairs facilities.Medications provided include 1) outpatient medications from the last 15 months, and 2) patient-reported medications. Medication Details Route Status Patient Instructions Prescription Expires Prescription Number Last Dispense Date Ordering Provider Order Date Order Qty Source ACETAMINOPH EN 325MG TAB TAKE TWO TABLETS BY MOUTH TWO TIMES A DAY ORAL ACTIVE JOSEPH IRASEMA 2022 [facility] DILTIAZEM (EQV-TIAZAC AB4) 240MG 24HR CAP TAKE 1 CAPSULE BY MOUTH EVERY DAY ORAL ACTIVE JOSEPH IRASEMA 2022 [facility] HYDRALAZINE HCL 25MG TAB TAKE ONE TABLET BY MOUTH THREE TIMES A DAY FOR BLOOD PRESSURE ORAL 05/21/2024 [id number] JOSEPH IRASEMA 2023 30 [facility] LENVATINIB CAP,ORAL TAKE BY MOUTH ORAL ACTIVE JOSEPH IRASEMA 2022 [facility] LEVOTHYROXI NE NA 100MCG TAB (SYNTHROID) TAKE ONE TABLET BY MOUTH EVERY DAY ORAL ACTIVE JOSEPH IRASEMA 2022 [facility] METOPROLOL TARTRATE TAB TAKE 12.5MG BY MOUTH TWICE A DAY ORAL ACTIVE JOSEPH IRASEMA 2022 [facility] OMEPRAZOLE 20MG CAP,EC TAKE 1 CAPSULE BY MOUTH EVERY DAY ORAL ACTIVE BRENNASHIVAM IRASEMA 2022 [facility] PEMBROLIZUM AB INJ,SOLN INJECT ACTIVE JOSEPH IRASEMA 2022 [facility] TAMSULOSIN HCL 0.4MG CAP TAKE 2 CAPSULES BY MOUTH EVERY DAY ORAL ACTIVE JOSEPH IRASEMA 2022 [facility] Allergies, Adverse Reactions, Alerts Combined list of allergies from Department of Defense and Veterans Affairs facilities. It does not include entries that were removed or entered in error. Substance Category Reaction Severity Reaction type Status Date Reported Comments Source SULFA DRUGS Propensity to adverse reactions to drug (finding) Urticaria active 3 [facility] Immunizations Combined list of available immunizations from the Department of Defense and Veterans Affairs facilities. Immunization Series Date Given Administered By Site Reaction Lot Number CVX Code Drug Veterinary Radiologist Status Comments Source INFLUENZA, HIGH-DOSE, TRIVALENT, PF 2023 135 complet ed HISTORICA L INFORMATI ON - FROM OTHER [facility], [facility] COVID-19 ([place]), MRNA, LNP-S, PF, LUIS-SUCROSE, 30 MCG/0.3 ML (AGES 12+ YEARS) 1 2022 BOBBY RUBALCAVA G LEFT DELTO ID [id number] 309 complet ed [facility] [place], [facility] INFLUENZA, HIGH-DOSE, QUADRIVALENT 2022 197 complet ed HISTORICA L INFORMATI ON - FROM OTHER [facility], [facility] PNEUMOCOCCAL CONJUGATE PCV20, POLYSACCHARID E [id number] CONJUGATE, ADJUVANT, PF 2022 216 complet ed HISTORICA L INFORMATI ON - FROM OTHER [facility], [facility] COVID-19 ([place]), MRNA, LNP-S, BIVALENT, PF, 30 MCG/0.3 ML DOSE 2021 300 complet ed HISTORICA L INFORMATI ON - FROM OTHER [facility], [facility] INFLUENZA, HIGH-DOSE, QUADRIVALENT 2021 197 complet ed HISTORICA L INFORMATI ON - FROM OTHER [facility], [facility] INFLUENZA, RECOMBINANT, QUADRIVALENT, INJECTABLE, PRESERVATIVE FREE 2020 185 complet ed HISTORICA L INFORMATI ON - FROM OTHER [facility], [facility] COVID-19 ([place]), MRNA, LNP-S, PF, 30 MCG/0.3 ML DOSE 2020 208 complet ed HISTORICA L INFORMATI ON - FROM OTHER [facility], [facility] INFLUENZA, HIGH-DOSE, QUADRIVALENT 2019 197 complet ed HISTORICA L INFORMATI ON - FROM OTHER [facility], [facility] INFLUENZA, INJECTABLE, QUADRIVALENT, PRESERVATIVE FREE 2018 150 complet ed HISTORICA L INFORMATI ON - FROM OTHER REGISTRY, [facility] ZOSTER RECOMBINANT 2018 187 complet ed HISTORICA L INFORMATI ON - FROM OTHER REGISTRY, [facility] ZOSTER RECOMBINANT 2018 187 complet ed HISTORICA L INFORMATI ON - FROM OTHER REGISTRY, [facility] INFLUENZA, HIGH DOSE SEASONAL 2017 135 complet ed HISTORICA L INFORMATI ON - FROM OTHER REGISTRY, [facility] INFLUENZA, HIGH DOSE SEASONAL 2016 135 complet ed HISTORICA L INFORMATI ON - FROM OTHER REGISTRY, [facility] INFLUENZA, HIGH DOSE SEASONAL 2015 135 complet ed HISTORICA L INFORMATI ON - FROM OTHER REGISTRY, [facility] TD (ADULT), 5 LF TETANUS TOXOID, PRESERVATIVE FREE, ADSORBED 2015 113 complet ed HISTORICA L INFORMATI ON - FROM OTHER REGISTRY, [facility] INFLUENZA, HIGH DOSE SEASONAL 2014 135 complet ed HISTORICA L INFORMATI ON - FROM OTHER REGISTRY, [facility] ZOSTER LIVE 2014 121 complet ed HISTORICA L INFORMATI ON - FROM OTHER REGISTRY, [facility] PNEUMOCOCCAL CONJUGATE PCV 13 2013 133 complet ed HISTORICA L INFORMATI ON - FROM OTHER REGISTRY, [facility] PNEUMOCOCCAL POLYSACCHARID E PPV23 2009 33 complet ed HISTORICA L INFORMATI ON - FROM OTHER REGISTRY, [facility] NOVEL INFLUENZA-H1N 1-09, ALL FORMULATIONS 2008 128 complet ed HISTORICA L INFORMATI ON - FROM OTHER REGISTRY, [facility] Results Combined list of recent chemistry, [...] Apr 21, 2024 10:33 AM Reporting Lab: [facility] [address] Performing Lab: [facility] [address] [place] [facility] ALBUMIN/C REATININE RATIO URINE MICROALBUMI N/CREATININ E [MASS RATIO] IN URINE 3553.6 mg/g{c reat} <29.9 - 29.9 04/21 H Specimen Type: URINE No comment entered. Ordering Provider: NICK RUIZ Report Released Date/Time: Apr 21, 2024 10:33 AM Reporting Lab: [facility] [address] Performing Lab: [facility] [address] [place] [facility] ALBUMIN/C REATININE RATIO URINE MICROALBUMI N [MASS/VOLUM E] IN URINE 3759.7 mg/L <29.9 - 29.9 04/21 H Specimen Type: URINE No comment entered. Ordering Provider: NICK RUIZ Report Released Date/Time: Apr 21, 2024 10:33 AM Reporting Lab: [facility] [address] Performing Lab: [facility] [address] [place] [facility] ALT/SGPT ALANINE AMINOTRANSF ERASE [ENZYMATIC ACTIVITY/VO LUME] IN SERUM OR PLASMA 19 U/L <44 - 44 04/21 Specimen Type: PLASMA No comment entered. Ordering Provider: NICK RUIZ Report Released Date/Time: Apr 14, 2023 09:15 PM Reporting Lab: [facility] [address] Performing Lab: [facility] [address] [place] [facility] AST/SGOT ASPARTATE AMINOTRANSF ERASE [ENZYMATIC ACTIVITY/VO LUME] IN SERUM OR PLASMA 25 U/L 11 - 34 04/21 Specimen Type: PLASMA No comment entered. Ordering Provider: NICK RUIZ Report Released Date/Time: Apr 14, 2023 09:15 PM Reporting Lab: [facility] [address] Performing Lab: [facility] [address] [place] [facility] BASIC METABOLIC PANEL+MG CREATININE [MASS/VOLUM E] IN SERUM OR PLASMA 1.3 mg/dL 0.7 - 1.2 04/21 H Specimen Type: PLASMA No comment entered. Ordering Provider: NICK RUIZ Report Released Date/Time: Apr 14, 2023 09:15 PM Reporting Lab: [facility] [address] Performing Lab: [facility] [address] [place] [facility] BASIC METABOLIC PANEL+MG UREA NITROGEN [MASS/VOLUM E] IN SERUM OR PLASMA 19 mg/dL 8 - 26 04/21 Specimen Type: PLASMA No comment entered. Ordering Provider: NICK RUIZ Report Released Date/Time: Apr 14, 2023 09:15 PM Reporting Lab: [facility] [address] Performing Lab: [facility] [address] [place] [facility] BASIC METABOLIC PANEL+MG GLUCOSE [MASS/VOLUM E] IN SERUM OR PLASMA 113 mg/dL 70 - 100 04/21 H Specimen Type: PLASMA No comment entered. Ordering Provider: NICK RUIZ Report Released Date/Time: Apr 14, 2023 09:15 PM Reporting Lab: [facility] [address] Performing Lab: [facility] [address] [place] [facility] BASIC METABOLIC PANEL+MG SODIUM [MOLES/VOLU ME] IN SERUM OR PLASMA 139 mmol/L 136 - 145 04/21 Specimen Type: PLASMA No comment entered. Ordering Provider: NICK RUIZ Report Released Date/Time: Apr 14, 2023 09:15 PM Reporting Lab: [facility] [address] Performing Lab: [facility] [address] [place] [facility] BASIC METABOLIC PANEL+MG POTASSIUM [MOLES/VOLU ME] IN SERUM OR PLASMA 4.0 mmol/L 3.5 - 5.1 04/21 Specimen Type: PLASMA No comment entered. Ordering Provider: NICK RUIZ Report Released Date/Time: Apr 14, 2023 09:15 PM Reporting Lab: [facility] [address] Performing Lab: [facility] [address] [place] [facility] BASIC METABOLIC PANEL+MG CHLORIDE [MOLES/VOLU ME] IN SERUM OR PLASMA 109 mmol/L 98 - 107 04/21 H Specimen Type: PLASMA No comment entered. Ordering Provider: NICK RUIZ Report Released Date/Time: Apr 14, 2023 09:15 PM Reporting Lab: [facility] [address] Performing Lab: [facility] [address] [place] [facility] BASIC METABOLIC PANEL+MG CARBON DIOXIDE, TOTAL [MOLES/VOLU ME] IN SERUM OR PLASMA 24 mmol/L - 04/21 Specimen Type: PLASMA No comment entered. Ordering Provider: NICK RUIZ Report Released Date/Time: Apr 14, 2023 09:15 PM Reporting Lab: [facility] [address] Performing Lab: [facility] [address] [place] [facility] BASIC METABOLIC PANEL+MG CALCIUM [MASS/VOLUM E] IN SERUM OR PLASMA 8.5 mg/dL 8.4 - 10.2 04/21 Specimen Type: PLASMA No comment entered. Ordering Provider: NICK RUIZ Report Released Date/Time: Apr 14, 2023 09:15 PM Reporting Lab: [facility] [address] Performing Lab: [facility] [address] [place] [facility] BASIC METABOLIC PANEL+MG MAGNESIUM [MASS/VOLUM E] IN SERUM OR PLASMA 1.9 mg/dL 1.6 - 2.6 04/21 Specimen Type: PLASMA No comment entered. Ordering Provider: NICK RUIZ Report Released Date/Time: Apr 14, 2023 09:15 PM Reporting Lab: [facility] [address] Performing Lab: [facility] [address] [place] [facility] BASIC METABOLIC PANEL+MG ANION GAP IN SERUM OR PLASMA 6 mmol/L 5 - 15 04/21 Specimen Type: PLASMA No comment entered. Ordering Provider: NICK RUIZ Report Released Date/Time: Apr 14, 2023 09:15 PM Reporting Lab: [facility] [address] Performing Lab: [facility] [address] [address] [facility] BASIC METABOLIC PANEL+MG GLOMERULAR FILTRATION RATE/1.73 SQ M.PREDICTED [VOLUME RATE/AREA] IN SERUM, PLASMA OR BLOOD BY CREATININE- BASED FORMULA (CKD-EPI 2020) 56 60 04/21 L Specimen Type: PLASMA No comment entered. Ordering Provider: NICK RUIZ Report Released Date/Time: Apr 14, 2023 09:15 PM Reporting Lab: [facility] [address] Performing Lab: [facility] [address] [address] [facility] CBC LEUKOCYTES [#/VOLUME] IN BLOOD BY AUTOMATED COUNT 4.9 4.0 - 11.0 04/21 Specimen Type: BLOOD No comment entered. Ordering Provider: NICK RUIZ Report Released Date/Time: Apr 14, 2023 09:15 PM Reporting Lab: [facility] [address] Performing Lab: [facility] [address] [address] [facility] CBC ERYTHROCYTE S [#/VOLUME] IN BLOOD BY AUTOMATED COUNT 4.15 4.60 - 6.20 04/21 L Specimen Type: BLOOD No comment entered. Ordering Provider: NICK RUIZ Report Released Date/Time: Apr 14, 2023 09:15 PM Reporting Lab: [facility] [address] Performing Lab: [facility] [address] [address] [facility] CBC HEMOGLOBIN [MASS/VOLUM E] IN BLOOD 13.3 g/dL 13.5 - 17.9 04/21 L Specimen Type: BLOOD No comment entered. Ordering Provider: NICK RUIZ Report Released Date/Time: Apr 14, 2023 09:15 PM Reporting Lab: [facility] [address] Performing Lab: [facility] [address] [address] [facility] CBC HEMATOCRIT [VOLUME FRACTION] OF BLOOD BY AUTOMATED COUNT 40.5 41.0 - 54.0 04/21 L Specimen Type: BLOOD No comment entered. Ordering Provider: NICK RUIZ Report Released Date/Time: Apr 14, 2023 09:15 PM Reporting Lab: [facility] [address] Performing Lab: [facility] [address] [place] [facility] CBC MCV [ENTITIC VOLUME] BY AUTOMATED COUNT 97.6 fL 80.0 - 100.0 04/21 Specimen Type: BLOOD No comment entered. Ordering Provider: NICK RUIZ Report Released Date/Time: Apr 14, 2023 09:15 PM Reporting Lab: [facility] [address] Performing Lab: [facility] [address] [address] [facility] CBC MCH [ENTITIC MASS] BY AUTOMATED COUNT 32.0 pg 27.0 - 33.0 04/21 Specimen Type: BLOOD No comment entered. Ordering Provider: NICK RUIZ Report Released Date/Time: Apr 14, 2023 09:15 PM Reporting Lab: [facility] [address] Performing Lab: [facility] [address] [address] [facility] CBC MCHC [MASS/VOLUM E] BY AUTOMATED COUNT 32.8 g/dL 32.0 - 37.5 04/21 Specimen Type: BLOOD No comment entered. Ordering Provider: NICK RUIZ Report Released Date/Time: Apr 14, 2023 09:15 PM Reporting Lab: [facility] [address] Performing Lab: [facility] [address] [address] [facility] CBC PLATELETS [#/VOLUME] IN BLOOD BY AUTOMATED COUNT 139 150 - 400 04/21 L Specimen Type: BLOOD No comment entered. Ordering Provider: NICK RUIZ Report Released Date/Time: Apr 14, 2023 09:15 PM Reporting Lab: [facility] [address] Performing Lab: [facility] [address] [address] [facility] CBC PLATELET MEAN VOLUME [ENTITIC VOLUME] IN BLOOD BY AUTOMATED COUNT 10.6 fL 9.1 - 13.0 04/21 Specimen Type: BLOOD No comment entered. Ordering Provider: NICK RUIZ Report Released Date/Time: Apr 14, 2023 09:15 PM Reporting Lab: [facility] [address] Performing Lab: [facility] [address] [address] [facility] CBC ERYTHROCYTE DISTRIBUTIO N WIDTH [RATIO] BY AUTOMATED COUNT 13.0 11.5 - 14.5 04/21 Specimen Type: BLOOD No comment entered. Ordering Provider: NICK RUIZ Report Released Date/Time: Apr 14, 2023 09:15 PM Reporting Lab: [facility] [address] Performing Lab: [facility] [address] [facility] CBC PLATELETS RETICULATED /100 PLATELETS IN BLOOD BY AUTOMATED COUNT 4.2 0 - 10 04/21 Specimen Type: BLOOD No comment entered. Ordering Provider: NICK RUIZ Report Released Date/Time: Apr 14, 2023 09:15 PM Reporting Lab: [facility] [address] Performing Lab: [facility] [address] [facility] HEMOGLOBI N A1C HEMOGLOBIN A1C/HEMOGLO BIN.TOTAL IN [...] Apr 14, 2023 09:15 PM Reporting Lab: [facility] [address] Performing Lab: [facility] [address] [facility] TSH W/REFLEX TO FREE T4 THYROTROPIN [UNITS/VOLU ME] IN SERUM OR PLASMA 1.78 u[IU]/ mL 0.35 - 4.94 04/21 Specimen Type: PLASMA No comment entered. Ordering Provider: NICK RUIZ Report Released Date/Time: Apr 14, 2023 09:15 PM Reporting Lab: [facility] [address] Performing Lab: [facility] [address] [address] [facility] CBC LEUKOCYTES [#/VOLUME] IN BLOOD BY AUTOMATED COUNT 5.07 10*3/u L 4.0 - 11.0 04/14 Specimen Type: BLOOD No comment entered. Ordering Provider: NICK RUIZ Report Released Date/Time: Apr 14, 2023 10:20 AM Reporting Lab: [facility] [address] Performing Lab: [facility] [address] [address] [facility] CBC ERYTHROCYTE S [#/VOLUME] IN BLOOD BY AUTOMATED COUNT 4.00 10*6/u L 4.6 - 6.2 04/14 L Specimen Type: BLOOD No comment entered. Ordering Provider: NICK RUIZ Report Released Date/Time: Apr 14, 2023 10:20 AM Reporting Lab: [facility] [address] Performing Lab: [facility] [address] [address] [facility] CBC HEMOGLOBIN [MASS/VOLUM E] IN BLOOD 13.2 g/dL 13.5 - 17.9 04/14 L Specimen Type: BLOOD No comment entered. Ordering Provider: NICK RUIZ Report Released Date/Time: Apr 14, 2023 10:20 AM Reporting Lab: [facility] [address] Performing Lab: [facility] [address] [address] [facility] CBC HEMATOCRIT [VOLUME FRACTION] OF BLOOD BY AUTOMATED COUNT 39.1 41 - 54 04/14 L Specimen Type: BLOOD No comment entered. Ordering Provider: NICK RUIZ Report Released Date/Time: Apr 14, 2023 10:20 AM Reporting Lab: [facility] [address] Performing Lab: [facility] [address] [address] [facility] CBC MCV [ENTITIC VOLUME] BY AUTOMATED COUNT 97.8 fL 80 - 100 04/14 Specimen Type: BLOOD No comment entered. Ordering Provider: NICK RUIZ Report Released Date/Time: Apr 14, 2023 10:20 AM Reporting Lab: [facility] [address] Performing Lab: [facility] [address] [address] [facility] CBC MCH [ENTITIC MASS] BY AUTOMATED COUNT 33.0 pg 27 - 33 04/14 Specimen Type: BLOOD No comment entered. Ordering Provider: NICK RUIZ Report Released Date/Time: Apr 14, 2023 10:20 AM Reporting Lab: [facility] [address] Performing Lab: [facility] [address] [address] [facility] CBC MCHC [MASS/VOLUM E] BY AUTOMATED COUNT 33.8 g/dL 32.0 - 37.5 04/14 Specimen Type: BLOOD No comment entered. Ordering Provider: NICK RUIZ Report Released Date/Time: Apr 14, 2023 10:20 AM Reporting Lab: [facility] [address] Performing Lab: [facility] [address] [address] [facility] CBC PLATELETS [#/VOLUME] IN BLOOD BY AUTOMATED COUNT 151 10*3/u L 150 - 400 04/14 Specimen Type: BLOOD No comment entered. Ordering Provider: NICK RUIZ Report Released Date/Time: Apr 14, 2023 10:20 AM Reporting Lab: [facility] [address] Performing Lab: [facility] [address] [address] [facility] CBC PLATELET MEAN VOLUME [ENTITIC VOLUME] IN BLOOD BY AUTOMATED COUNT 10.4 fL 7.4 - 10.4 04/14 Specimen Type: BLOOD No comment entered. Ordering Provider: NICK RUIZ Report Released Date/Time: Apr 14, 2023 10:20 AM Reporting Lab: [facility] [address] Performing Lab: [facility] [address] [address] [facility] CBC ERYTHROCYTE DISTRIBUTIO N WIDTH [RATIO] BY AUTOMATED COUNT 12.8 11.5 - 14.5 04/14 Specimen Type: BLOOD No comment entered. Ordering Provider: NICK RUIZ Report Released Date/Time: Apr 14, 2023 10:20 AM Reporting Lab: [facility] [address] Performing Lab: [facility] [address] [address] [facility] COMPREHEN SIVE METABOLIC PANEL+MG CREATININE [MASS/VOLUM E] [...] Apr 14, 2023 10:20 AM Reporting Lab: [facility] [address] Performing Lab: [facility] [address] [address] [facility] COMPREHEN SIVE METABOLIC PANEL+MG UREA NITROGEN [MASS/VOLUM [...] Apr 14, 2023 10:20 AM Reporting Lab: [facility] [address] Performing Lab: [facility] [address] [address] [facility] COMPREHEN SIVE METABOLIC PANEL+MG GLUCOSE [MASS/VOLUM E] [...] Apr 14, 2023 10:20 AM Reporting Lab: [facility] [address] Performing Lab: [facility] [address] [address] [facility] COMPREHEN SIVE METABOLIC PANEL+MG SODIUM [MOLES/VOLU ME] [...] Apr 14, 2023 10:20 AM Reporting Lab: [facility] [address] Performing Lab: [facility] [address] [facility] COMPREHEN SIVE METABOLIC PANEL+MG POTASSIUM [MOLES/VOLU ME] [...] Apr 14, 2023 10:20 AM Reporting Lab: [facility] [address] Performing Lab: [facility] [address] [address] [facility] COMPREHEN SIVE METABOLIC PANEL+MG CHLORIDE [MOLES/VOLU ME] [...] Apr 14, 2023 10:20 AM Reporting Lab: [facility] [address] Performing Lab: [facility] [address] [place] [facility] COMPREHEN SIVE METABOLIC PANEL+MG CARBON DIOXIDE, TOTAL [...] Apr 14, 2023 10:20 AM Reporting Lab: [facility] [address] Performing Lab: [facility] [address] [address] [facility] COMPREHEN SIVE METABOLIC PANEL+MG CALCIUM [MASS/VOLUM E] [...] Apr 14, 2023 10:20 AM Reporting Lab: [facility] [id number] Performing Lab: [facility] [address] [address] IS [facility] COMPREHEN SIVE METABOLIC PANEL+MG PROTEIN [MASS/VOLUM E] [...] Apr 14, 2023 10:20 AM Reporting Lab: [facility] [address] Performing Lab: [place] [address] [address] IS [facility] COMPREHEN SIVE METABOLIC PANEL+MG ALBUMIN [MASS/VOLUM E] [...] Apr 14, 2023 10:20 AM Reporting Lab: [facility] [address] Performing Lab: [facility] [address] [address] IS [facility] COMPREHEN SIVE METABOLIC PANEL+MG BILIRUBIN.T OTAL [MASS/VOLUM [...] Apr 14, 2023 10:20 AM Reporting Lab: [facility] [address] Performing Lab: [facility] [address] [place] [facility] COMPREHEN SIVE METABOLIC PANEL+MG MAGNESIUM [MASS/VOLUM E] [...] Apr 14, 2023 10:20 AM Reporting Lab: [facility] [address] Performing Lab: [facility] [address] [address] IS [facility] COMPREHEN SIVE METABOLIC PANEL+MG ANION GAP IN [...] Apr 14, 2023 10:20 AM Reporting Lab: [facility] [address] Performing Lab: [facility] [address] [facility] COMPREHEN SIVE METABOLIC PANEL+MG ALKALINE PHOSPHATASE [ENZYMATIC [...] Apr 14, 2023 10:20 AM Reporting Lab: [facility] [id number] Performing Lab: [facility] [address] [place] [facility] COMPREHEN SIVE METABOLIC PANEL+MG ALANINE AMINOTRANSF ERASE [...] Apr 14, 2023 10:20 AM Reporting Lab: [facility] [address] Performing Lab: [facility] [address] [address] IS [facility] COMPREHEN SIVE METABOLIC PANEL+MG ASPARTATE [...] Apr 14, 2023 10:20 AM Reporting Lab: [facility] [address] Performing Lab: [facility] [address] [address] IS [facility] COMPREHEN SIVE METABOLIC PANEL+MG GLOMERULAR FILTRATION RATE/1.73 [...] Apr 14, 2023 10:20 AM Reporting Lab: [facility] [address] Performing Lab: [facility] [address] [address] IS [facility] HEMOGLOBI N A1C HEMOGLOBIN A1C/HEMOGLO BIN.TOTAL IN [...] Apr 14, 2023 10:20 AM Reporting Lab: [facility] [address] Performing Lab: [facility] [address] [facility] Vital Signs Combined list of inpatient and outpatient Vital Signs from Department of Defense and Veterans Affairs, ranging from 12 months to all on record, depending upon the facility. Vital Sign Value Date Comments Source SYSTOLIC BLOOD PRESSURE 168 04/21/2024 14:51:48 [facility] DIASTOLIC BLOOD PRESSURE 82 04/21/2024 14:51:48 [facility] PULSE OXIMETRY 97 04/21/2024 14:51:48 [facility] WEIGHT 166 04/21/2024 14:51:48 [facility] BMI 24 kg/m2 04/21/2024 14:51:48 [facility] PAIN 0 04/21/2024 14:51:48 [facility] HEIGHT 70 04/21/2024 14:51:48 [facility] TEMPERATURE 98.3 04/21/2024 14:51:48 [facility] PULSE 64 04/21/2024 14:51:48 [facility] RESPIRATION 17 04/21/2024 14:51:48 [facility] Encounters Combined list of: 1) Encounters from Department of Veterans Affairs facilities going backup to the last 18 months, not all [place] inpatient encounters are included; 2) Encounters from the Department of [facility] facilities going backup to 280 months. Location Location Details Encounter Type Encounter Number Reason For Visit Attending Provider ADM Date DC Date Status Disposition Source [place] [facility] Outpatient Encounter [id number] 03/09 [place] [facility] [place] [facility] Outpatient Encounter [id number] 04/21 [facility] [place] [facility] OFFICE O/P EST MOD 30 MIN [id number] Diagnos is: ICD-10- CM I10 Essenti al (primar y) hyperte Mundo Elizondo [place] 04/21 [place] [facility] [place] [facility] Outpatient Encounter [id number] [facility] SHAKIRA A 05/25 [place] [facility] [place] [facility] Outpatient Encounter [id number] [facility] SHAKIRA A 05/[address] [place] [facility] CASE MANAGEMENT [id number] ABDULLAHI COPELAND V 05/30 [facility] Outpatient Encounter [id number] 05/31 [facility] Outpatient Encounter [id number] 06/08 [facility] TARGETED CASE MANAGEMENT [id number] [facility] SHAKIRA A 06/[address] [place] [facility] Outpatient Encounter [id number] 06/09 [facility] Outpatient Encounter [id number] 06/14 [facility] Social History Combined list of available smoking, tobacco, and other social history from Department of Defense and Veterans Affairs facilities. Social History Type Response Date Comment Sourc e Tobacco smoking status NHIS VA-TOBACCO NEVER USED CIGARETTES 04/21/2024 [facility] History of tobacco use [facility]-TOBACCO NEVER USED OTHER TYPE 04/21/2024 [facility] History of tobacco use UT-TOBACCO NEVER USED 04/14/2023 [facility] Advance Directives List of completed, amended, or rescinded Advance Directives on record at Department of Veterans Affairs facilities. An actual copy of the Directive is not included. Date Advance Directive Provider Source 04/20/2023 ADVANCE DIRECTIVE BISHOP TRAVIS [facility] 04/20/2023 ADVANCE DIRECTIVE DISCUSSION DELMY TRAVIS [facility]
--- OUTSIDE RECORDS SUMMARY | 2024-11-28 13:00 | XMS_ITS | Encounter Summary ---
Author Organization [facility] Address [address], [place] [address] Phone Care Team Providers Care Microwave Radio Technician Name Role Phone Gianluca Anne MD Primary Care Provider Encounter Details Date Type Department Care Team (Latest Contact Info) Description 11/28/2024 1:00 PM CDT Office Visit Virtual 3-D Display for Smartphones [address] [place] [address] Aneta Dyer MD [address] [place] [address] Stage 3 chronic kidney disease, not otherwise specified (CMS-HCC) (Primary Dx); Essential (primary) hypertension; S/P nephrectomy; Proteinuria, not otherwise specified; Elevated prostate specific antigen (PSA); Atrial fibrillation, not otherwise specified (CMS-HCC); Metastatic renal cell carcinoma <Right side> (CMS-HCC); Type 2 diabetes mellitus without complication (CMS-HCC); Hypothyroidism, not otherwise specified Social History Tobacco Use Types Packs/Day Years Used Date Smoking Tobacco: Never Passive Smoke Exposure: Never Smokeless Tobacco: Never Alcohol Use Standard Drinks/Week Comments Not Currently 0 (1 standard drink = 0.6 oz pur e alcohol) Rare Sex and Gender Information Value Date Recorded Sex Assigned at Not on file Legal Sex Male 1:23 PM SWETHA Gender Identity Not on file Sexual Orientation Not on file documented as of this encounter Last Filed Vital Signs Vital Sign Reading Time Taken Comments Blood Pressure 142/73 11/28/2024 1:10 PM CDT Pulse 68 11/28/2024 1:10 PM CDT Temperature 36.2 C (97.2 F) 11/28/2024 1:10 PM CDT Respiratory Rate - - Oxygen Saturation 98% 11/28/2024 1:10 PM CDT Inhaled Oxygen Concentration - - Weight 71.9 kg (158 lb 9.6 oz) 11/28/2024 1:10 P M CDT Height 177.8 cm (5' 10) 11/28/2024 1:10 PM CDT Body Mass Index 22.76 11/28/2024 1:10 PM CDT documented in this encounter Patient Instructions * Patient Instructions* Aneta Dyer MD - 11/28/2024 1:00 PM CDT - It was nice to see you today! - Let's increase your lasix to 40 mg daily (2 tablets). If your swelling doesn't improve or you don't notice an increase in your urine output, please call us to increase the dose further. documented in this encounter Progress Notes * Aneta Dyer MD - 11/28/2024 1:00 PM CDT [facility] Date of : 1945 Date of Service: 11/28/24 Primary care provider: GIANLUCA ANNE MD, Dr. Gio Lopez ASSESSMENT AND RECOMMENDATIONS: CKD IIIa/b H/o metastatic RCC (R kidney) s/p nephrectomy, stage IV Nephrotic range proteinuria Recent baseline Cr ~1.5-1.7 since nephrectomy. Patient had been on lenvima and keytruda since fall with brief pause during time of nephrectomy. Has had some fluctuating Cr, but in general renal function had been relatively stable. He has nephrotic range proteinuria and HTN, could be due to lenvima. Developed severe diarrhea thought to be related to lenvima. Recent imaging showing new metastases (L lung and liver), lenvima and keytruda discontinued and started cabozatinib 08/2024 but dosereduced due to diarrhea. He is losing weight and generally feeling quite fatigued. Has repeat scan later in November. Proteinuria remains significant, unfortunately we are limited in our ability to reduce it. He is on lisinopril 20 mg daily. I would not recommend SGLT2-I for him given already poor PO intake and difficulty staying hydrated in setting of intermittent diarrhea. I think jardiance would likely worsen dehydration and ultimately renal function. Renal function stable Cr 10/13 1.5, eGFR 46 - continue lisinopril 20 mg daily - renal function stable - urine protein:Cr 3634 mg/g (11/20/2024), improved since May 2024 but remains nephrotic range - poor candidate for SGLT2-I, would not recommend Elevated PSA BPH PSA 4.1, enlarged prostate noted on PET. Does have some nocturia, otherwise no LUTS. - tamsulosin HTN Afib Had multiple issues with poorly controlled HTN earlier this year with difficulty adding new meds, thought to be having side effects. Poorly controlled HTN can be an effect from lenvima which was recently discontinued so though he has great control now he may drop low, so will need to monitor this. Currently taking diltiazem CD 240mg daily, lasix 20 mg daily, lisinopril 20 mg daily, metoprolol tartrate 25mg BID. Had trialed off of lasix, but developed worsened edema. Has significant proteinuria 3634 mg/g (likely due to his cancer meds), so prefer to continue lisinopril unless renal function worsens or SBP<110 consistently. - increase lasix to 40 mg daily - continue lisinopril, metoprolol, diltiazem - if SBP <110 consistently, will reduce lisinopril dose to 10 mg daily vs discontinuing it - if SBP >150 consistently he will call so we can adjust meds further. - HTN goal 120-140/60-80, currently at goal DM2 Well controlled with diet alone. Anemia screening Hgb 13.6 (08/24/24), being followed by Oncology. No ADITYA or iron indicated. CKD MBD Vit D deficiency Will check vit D and PTH. Hypothyroidism On levothyroxine, managed by Oncology. Patient Instructions - Patient Instructions - It was nice to see you today! - Let's increase your lasix to 40 mg daily (2 tablets). If your swelling doesn't improve or you don't notice an increase in your urine output, please call us to increase the dose further. F/u in 4 months. I reviewed notes from Dr. Lopez ([facility]). In total I spent 44 minutes on today's encounter. REASON FOR VISIT: CKD follow up HISTORY OF PRESENT ILLNESS: Rita Wesley is a 79 y.o. male with PMH of DM2, HTN, pAfib, and metastatic RCC (lung and liver mets) s/p R nephrectomy (05/2022) presenting for CKD follow up. I last saw them 08/2024. At that time we stopped lasix, but he then developed LE edema again so it was resumed. He's had continued diarrhea even with switching to new cancer med, so dose had Dose reduction helped diarrhea, but didn't stop it. He takes loperimide which helps but doesn't eliminate the severe diarrhea occassionally, still happens about twice a week. On those days, appetite is also diminished. If no diarrhea, appetite is relatively ok. Tried mirtazapine for appetite stimulant, but developed severe dizziness so had to stop it. LE edema worse lately, but no SOB. No orthopnea. Takes zofran which keeps nausea at bay. Urinating ok without difficulty. Doesn't feel much difference in urine output with current lasix. He is here today with his PAST MEDICAL HISTORY: Medical History[1] PAST SURGICAL HISTORY: Surgical History[2] MEDICATIONS: Current Medications[3] ALLERGIES: Allergies[4] REVIEW OF SYSTEMS: A comprehensive review of systems was performed and found to be negative except as described here or above. SOCIAL HISTORY: Social History Social History Narrative Lives with his in [place]. Enjoys gardening in the summer. [place] in the winter in [facility]. Never smoker. Rarely drinks alcohol. No illicit drug use. Retired. 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 FAMILY MEDICAL HISTORY: Family History Problem Relation Age of Onset Miscarriages / Stillbirths Mother Hearing loss Mother Arthritis Mother Cancer Father Diabetes Brother Cancer Brother Alcohol abuse Daughter Alcohol abuse Son PHYSICAL EXAM: Visit Vitals BP (!) 142/73 (BP Location: Left arm, Patient Position: Sitting, BP Cuff Size: Adult) Pulse 68 Temp 97.2 ??F (36.2 ??C) (Temporal) Ht 5' 10 (1.778 m) Wt 158 lb 9.6 oz (71.9 kg) SpO2 98% BMI 22.76 kg/m?? Smoking Status Never BSA 1.88 m?? GENERAL APPEARANCE: alert and no distress EYES: nonicteric HENT: MMM RESP: lungs clear to auscultation CV: RRR, no murmurs or rubs ABDOMEN: no CVA tenderness Extremities: 2+ edema NEURO: mentation intact and speech normal PSYCH: affect normal/bright LABS: Historical labs were reviewed with the patient. Available imaging studies were reviewed. Aneta Dyer MD [facility] [phone] [1] Past Medical History: Diagnosis Date Diabetes mellitus without mention of complication, type II or unspecified type, not stated as uncontrolled (CMS-HCC) Disorder of thyroid Essential hypertension Other malignant neoplasm of unspecified site (CMS-HCC) [2] Past Surgical History: Procedure Laterality Date EYE SURGERY HERNIA REPAIR [3] Current Outpatient Medications: acetaminophen (TYLENOL) 325 MG [...] (one) time each day, Disp: , Rfl: furosemide (LASIX) 20 MG tablet, Take 1 tablet (20 mg total) by mouth 1 (one) time each day, Disp: 90 tablet, Rfl: 3 glucose blood (OneTouch Ultra) test strip, , Disp: , Rfl: Hydrocortisone, Perianal, 2.5 % cream, Apply topically if needed, Disp: , Rfl: Lancets (onetouch ultrasoft) lancets, , Disp: , Rfl: levothyroxine (SYNTHROID) 112 MCG tablet, Take 112 mcg by mouth 1 (one) time each day, Disp: , Rfl: lisinopril (PRINIVIL) 20 MG tablet, Take 1 tablet (20 mg total) by mouth 1 (one) time each day, Disp: 90 tablet, Rfl: 3 metoprolol tartrate (LOPRESSOR) 25 MG tablet, Take 25 mg by mouth in the morning and 25 mg in the evening., Disp: , Rfl: omeprazole (PriLOSEC) [address] capsule, Take 20 mg by mouth 1 (one) time each day, Disp: , Rfl: tamsulosin (FLOMAX) 0.4 MG 24 hr capsule, Take 0.8 mg by mouth in the morning., Disp: , Rfl: [4] Allergies Allergen Reactions Remeron [Mirtazapine] fatigue Extreme fatigue slept all day after 1 pill. Sulfa Antibiotics Hives Sulfacetamide Hives Metformin nausea documented in this encounter Plan of Treatment Not on file documented as of this encounter Visit Diagnoses Diagnosis Stage 3 chronic kidney disease, not otherwise specified (CMS-HCC)- Primary Essential (primary) hypertension S/P nephrectomy Proteinuria, not otherwise specified Elevated prostate specific antigen (PSA) Atrial fibrillation, not otherwise specified (CMS-HCC) Metastatic renal cell carcinoma <Right side> (CMS-HCC) Type 2 diabetes mellitus without complication (CMS-HCC) Hypothyroidism, not otherwise specified documented in this encounter Care Teams Microwave Radio Technician Relationship Specialty Start Date End Date Gianluca Anne MD [address], [place] [address] PCP - General 08/26/22 documented as of this encounter
[2024-12-31] VITALS (37 sets, daily range): BP systolic 71–141; BP diastolic 49–78; PULSE 53–76; RESP 14–18; TEMP 35.6–36.7; O2SAT 88–98; BMI 21.5; BMI 21.7
--- OUTSIDE RECORDS SUMMARY | 2024-12-31 11:34 | XMS_ITS | Encounter Summary ---
Author Organization [facility] Address [address] [place] [address] Phone Care Team Providers Care Upholstery Auto Trimmer Name Role Phone Beto Anne MD Primary Care Provider Reason for Visit * Reason Onset Date Comments Med Refill 12/14/2024 Encounter Details Date Type Department Care Team (Late st Contact Info) Description 12/14/2024 Refill [place] [facility] [address] [place] [address] Leydi Quiroz RN Social History Tobacco Use Types Packs/Day Years Used Date Smoking Tobacco: Never Passive Smoke Exposure: Never Smokeless Tobacco: Never Alcohol Use Standard Drinks/Week Comments Not Currently 0 (1 standard drink = 0.6 oz pur e alcohol) Rare Sex and Gender Information Value Date Recorded Sex Assigned at Not on file Legal Sex Male 1:23 PM MDT Gender Identity Not on file Sexual Orientation Not on file documented as of this encounter Miscellaneous Notes * Telephone Encounter - Leydi Quiroz RN - 12/14/2024 9:55 AM CDT Pts called because he increased lasix to 40mg daily at last visit and it hasn't worked very well for his swelling yet. Bp doing good, 130-[address] Esparza and he can increase to 80mg daily. Sent in new Rx. documented in this encounter Plan of Treatment Not on file documented as of this encounter Visit Diagnoses Not on filedocumented in this encounter Care Teams Upholstery Auto Trimmer Relationship Specialty Start Date End Date Beto Anne MD [address] [place] [address] PCP - General 08/26/22 documented as of this encounter
--- OUTSIDE RECORDS SUMMARY | 2024-12-31 11:35 | XMS_ITS | Clinical Summary ---
[facility] Address [address] [place] [address] Care Team Providers Care Traffic Operator Name Role Phone Beto Anne MD Primary Care Provider [phone] Source Comments You are receiving this document as you are listed as the primary care provider,follow-up provider, or the patient has been referred to you for consultation.This is in compliance with the Medicare and[facility] Hospital[facility] EHR Incentive Program,which states Providers who transition their patient to another setting of careor provider of care or refers their patient to another provider of care shouldprovide summary care record for each transition of care or referral. [facility] Allergies Active Allergy Reactions Criticality Noted Date Comments Sulfa Antibiotics Hives High 04/11/2021 Medications glipiZIDE (GLUCOTROL) 5 MG tablet 02/16/2021 Active lisinopril-hydro CHLOROthiazide (PRINZIDE) 20-12.5 MG tablet 04/02/2021 Active dilTIAZem CD (CARDIZEM CD) 240 MG 24 hour release capsule 02/16/2021 Act ramírez metoprolol tartrate (LOPRESSOR) 25 MG tablet 02/26/2021 Active tamsulosin (FLOMAX) 0.4 MG CAPS capsule 04/02/2021 Active omeprazole (PRILOSEC) 20 MG capsule 04/02/2021 Active [...] (04/11/2021): Added automatically from request for surgery [id number] Immunizations Immunization Administration Dates Next Due Flublok (RIV4) 03/24/2021 F1U4-Ntavyduadl 05/13/2009 Influenza IIV3 (Trivalent) F luzozonia Highdose, 65+ Yrs (47631) 03/14/2018,03/25/2017,03/24/2016,2014 Influenza IIV4 (Quadrivalent ) 0.5mL (43961) 03/24/2019 Influenza IIV4 (Quadrivalent ) Fluzone, 65+ [...] at Not on file Legal Sex Male 5:51 PM CDT Gender Identity Not on file Sexual Orientation [...] Maintenance Due Date Last Done Comments Diabetes: Albumin/Creatinine Ratio, Urine 1945 Diabetes: Creatinine 1945 Diabetes: Foot Exam 1945 Diabetes: HGBA1C 1945 Diabetes: Lipid Panel 1945 Medicare Annual Wellness Visit 1945 DTaP/Tdap/Td Vaccine (1 - Tdap) 11/01/2015 10/31/2015 RSV Vaccine (1 - 1-dose 75+ series) 2019 COVID-19 Vaccine (3 - season) 2024 05/07/2022, 02/25/2021 Influenza Vaccine (#1) 2025 , 03/24/2021, 03/22/2020, Additional history exists Diabetes: Eye Exam 02/13/2025 02/14/2024, 0 02/14/2024, 02/11/2023, Additional history exists Pneumococcal Vaccine 50+ Yrs Completed 06/28/2013, 09/04/2009 Zoster/Shingles Vaccine Completed 11/15/19 19, 09/10/2018, 10/25/2014 HepA Vaccine Aged Out No longer eligi ble based on patient's age to complete this topic HepB Vaccine Aged Out No longer eligi ble based on patient's age to complete this topic Hib Vaccine Aged Out No longer eligi ble based on patient's age to complete this topic MCV4 Vaccine Aged Out No longer eligi ble based on patient's age to complete this topic Meningococcal B Vaccine Aged Out No l onger eligible based on patient's age to complete this topic Medical Devices Implanted Type Area Needle Loom Operator Helper Device Identifier Shelf Expiration Date Model / Serial / Lot Lens Iol Tecnis Zcb00 20.5 - [id number] Implanted:Qty: 1 on 09/02/2021 by Seymour Lui MD at [facility] DEVICE Right: EYE [employer] 04/14/2025 [id number] / [id number] / Lens Iol Tecnis Zcb00 20.5 - [id number] Implanted:Qty: 1 on 09/16/2021 by Seymour Lui MD at [facility] DEVICE Left: EYE [employer] 06/30/2025 [id number] / Procedures Procedure Name Priority Date/Time Associated Diagnosis Comments MIRIAM (DIABETIC EYE EXAM) 04/02/2021 from Last 3 Months or Most Recently Relevant to Health Maintenance Results * MIRIAM (DIABETIC EYE EXAM) (04/02/2021) us Interface Provider DUMMY/OTHER/AR Final Resu lt from Last 3 Months or Most Recently Relevant to Health Maintenance Insurance [facility] Advance Directives Documents on File Type Date Recorded Patient Upper Leather Cutter Expl anation HEALTHCARE DIRECTIVE 04/25/2015 04/25/20 15 Care Teams Traffic Operator Relationship Specialty Start Date End Date Beto Anne MD [address] [place] [address] PCP - General Family Practice 01/18/23
--- OUTSIDE RECORDS SUMMARY | 2024-12-31 11:35 | XMS_ITS ---
Author Name Interface, [id number] lity Address [address] [place] [address] Oncology Address [address] [place] [address] Allergies and Adverse Reactions Plan Reason for Visit Encounters Immunizations Diagnostic Results Medications Problems Vital Signs Notes Section
--- OUTSIDE RECORDS SUMMARY | 2024-12-31 11:35 | XMS_ITS | Clinical Summary ---
Author Organization [facility] Address [address] [place] [address]. [place] [address] Care Team Providers Care Vocational Rehabilitation Teacher Name Role Phone Beto Anne MD Primary Care Provider [phone] Allergies No known active allergies Medications DIOVAN OR None Entered Active PRILOSEC OR None Entered Activ e CELEBREX OR None Entered Activ e ANACIN OR None Entered Active Encounters Date Type Department Care Team Description 12/25/2024 Transcribe Orders GENERIC EXTERNAL DATA DEPARTMENT Gio Lopez MD 12/25/2024 Transcribe Orders GENERIC EXTERNAL DATA DEPARTMENT Gio Lopez MD Renal carcinoma, right (H) (Primary Dx); Dysphagia 12/25/2024 Transcribe Orders GENERIC EXTERNAL DATA DEPARTMENT Gio Lopez MD Renal carcinoma, right (H) (Primary Dx); Dysphagia from Last 3 Months Social History Tobacco Use Types Packs/Day Years Used Date Smoking Tobacco: Never Assessed Adolescent Education Answer Date Record ed Getting School Help Needed Not on file 02/22 Sex and Gender Information Value Date Recorded Sex Assigned at Not on file Legal Sex Male 2:59 AM [employer] Gender Identity Not on file Sexual Orientation Not on file Last Filed Vital Signs Vital Sign Reading Time Taken Comments Blood Pressure - - Pulse - - Temperature - - Respiratory Rate - - Oxygen Saturation - - Inhaled Oxygen Concentration - - Weight 93 kg (205 lb) 04/17/2008 11:00 AM [employer] Height 177.8 cm (5' 10) 04/17/2008 11:00 AM [employer] Body Mass Index 29.41 04/17/2008 11:00 AM [employer] Plan of Treatment Upcoming Encounters Date Type Department Care Team (Late st Contact Info) Description 02/01/2025 10:00 AM CDT Appointment [facility] [address] [place] [phone] Gio Lopez MD [facility] [address] [place] [address] 02/01/2025 10:00 AM CDT Appointment [facility] [address] [place] [phone] Gio Lopez MD [facility] [address] [place] [address] Health Maintenance Due Date Last Done Comments ADVANCE CARE PLANNING 1944 ANNUAL REVIEW OF HM ORDERS 1944 BMP 1944 DIABETES SCREENING 1944 LIPID 1984 FALL RISK ASSESSMENT 2009 MEDICARE ANNUAL WELLNESS VISIT 2009 DTAP/TDAP/TD VACCINE (1 - Tdap) 11/01/2015 10/31/2015 RSV VACCINE (1 - 1-dose 75+ series) 2019 PHQ-2 (once per calendar year) 2024 COVID-19 VACCINE (5 - Pfizer risk 2023- season) 2024 05/22/2024, 04/14/2023, 05/07/2022, Additional history exists INFLUENZA VACCINE (#1) 2025 , 04/03/2023, 03/10/2022, Additional history exists ZOSTER VACCINE Completed 11/14/2018, 08/23, 10/25/2014 COLONOSCOPY Discontinued 05/24/2019, 04/25, 09/18/2009, Additional history exists COLORECTAL CANCER SCREENING Discontinued PNEUMOCOCCAL VACCINE 50+ YEARS Completed 03/12/2023, 06/28/2013, 09/04/2009 CT COLONOGRAPHY Discontinued FIT Discontinued FLEX SIG Discontinued HPV VACCINE (No Doses Required) Completed MENINGITIS VACCINE Aged Out No longer eligible based on patient's age to complete this topic sDNA (Cologuard) Discontinued Procedures Procedure Name Priority Date/Time Associated Diagnosis Comments COLONOSCOPY Routine 09/18/2009 9:35 AM CDT from Last 3 Months or Most Recently Relevant to Health Maintenance Results * COLONOSCOPY (09/18/2009 9:35 AM CDT) COLONOSCOPY [facility] Patient Name: Rita Wesley Gender: M [...] saturations were monitored continuously. The Colonoscope P-[id number] #[id number] was introduced through the anus and advanced [...] Recently Relevant to Health Maintenance Insurance MEDICARE [facility] MEDICARE [facility] MEDICARE [place] OF [place] MEDICARE SUPPLEMENT Care Teams Vocational Rehabilitation Teacher Relationship Specialty Start Date End Date Beto Anne MD [facility] [address], [place] [address] PCP - General Family Medicine 01/05/22
--- OUTSIDE RECORDS SUMMARY | 2024-12-31 11:35 | XMS_ITS | CCD ---
Author Name Interface, [id number] lity Address [place] [address] Organization [facility] Address [place] [address] Care Team Providers Care Market Development Executive Name Role Phone Rasta SHOOK, Arnaud Clayton able Allergies and Adverse Reactions Medication/Group Name Reaction Severity Date Sulfamide Hives 06/03/2023 Care Plan Date Type Value 03/05/2025 APPOINTMENT Farray/ov/jg 08/03/2024 APPOINTMENT FARRAY/ INF PEMB ROLIZUMAB/JG 08/02/2024 APPOINTMENT Farray/lab/ov/jg 08/02/2024 APPOINTMENT Farray/lab/ov/jg 07/13/2024 APPOINTMENT FARRAY/ INF PEMB ROLIZUMAB/JG 07/12/2024 APPOINTMENT Farray/Solano/la b/ov/jg 07/12/2024 APPOINTMENT FARRAY/SOLANO/OV /CZ 06/22/2024 APPOINTMENT farray/ inf Pemb rolizumab/cz 06/14/2024 APPOINTMENT farray/ov/cz 06/14/2024 APPOINTMENT Farray/lab/ov/jg 06/14/2024 APPOINTMENT Farray/lab/ov/jg 06/14/2024 LABORDER CBC w/auto diff with reflex 06/14/2024 LABORDER CMP 06/14/2024 LABORDER Free T4 + TSH pa pavan 07/12/2024 LABORDER Free T4 + TSH pa pavan 07/12/2024 LABORDER Urine protein el ectrophoresis, random urine 07/12/2024 LABORDER CMP 07/12/2024 LABORDER CBC w/auto diff with reflex 08/02/2024 LABORDER CBC w/auto diff with reflex 08/02/2024 LABORDER CMP Reason for Visit FARRAY/ INF PEMBROLIZUMAB/JG Encounters Date Name 03/05/2025 Renal cancer 03/05/2025 Farray/ov/jg Diagnostic Results Date Type Test Units Lower Limit Upper Limit Result Flag Comments Status Ordered By Specimen Source Lab Address 06/14 Smear revie w panel Plate let estim ate Decreas ed Abnor mal FINAL Arnaud Farray-B erges Whole Blood [facility] [address] [address] CLIA ID# [id number] 06/14 Smear revie w panel Aniso cytos is (size ) 1+ Abnor mal FINAL Arnaud Farray-B erges Whole Blood [facility] [address] [address] CLIA ID# [id number] 07/12 [facility] Alpha 1 globu ciro, UPE % 5.7 Jocelyn l FINAL Arnaud Farray-B erges Urine [HD] [facility]. [address] [place] [phone].Ph one: .Lab oratory Director : Shyam Villegas 07/12 Urine prote [facility] M-Spi ke, mg/24 hr % Not Observe d Jocelyn l FINAL Arnaud Farray-B erges Urine [HD] [facility]. [address] [place] [phone].Ph one: [phone].Lab oratory Director : Shyam Villegas 07/12 Urine prote in mario flores urine Album in, UPE % 69.0 Jocelyn l FINAL Arnaud Farray-B erges Urine [HD] [facility]. [facility].[address].Ph one: .Lab oratory Director : Shyam Villegas 07/12 Urine prote in elect mario dias urine Alpha 2 globu ciro, UPE % 5.7 Jocelyn l FINAL Arnaud [facility]array[facility]B erges [facility] [address] [place] [phone].Ph one: .Lab oratory Director : Shyam Stuart. 07/12 Urine prote in mario flores urine PDF . Jocelyn l FINAL Arnaud Farray-B erges Urine [facility]HD] [facility]. [address] [place] [phone].Ph one: [phone].Lab oratory Director : Shyam Stuart. 07/12 Urine prote in mario flores urine Gamma globu ciro, UPE % 8.9 Jocelyn l FINAL Arnaud Farray-B erges Urine [HD] [facility]. [address] [place] [phone].Ph one: [phone].Lab oratory Director : Shyam Stuart. 07/12 Urine prote in mario flores urine Lab resul t note Comment Jocelyn l Protein electroph oresis scan will follow via computer, mail, orcourier delivery. FINAL Arnaud Farray-B erges Urine [HD] [facility]. [address] [place] [phone].Ph one: .Lab oratory Director : Shyam Stuart. 07/12 Urine prote in mario flores urine Beta globu ciro, UPE % 10.8 Jocelyn l FINAL Arnaud Farray-B erges Urine [HD] [facility]. [address] [place] [phone].Ph one: [phone].Lab oratory Director : Shyam Villegas 07/12 Urine prote in elect keven diaso m urine Total prote in, UPE mg/dL 164.2 Jocelyn l FINAL Arnaud Farray-B erges Urine [HD] [facility]. [address] [facility].[address].Ph one: .Lab oratory Director : Shyam Villegas 05/08 PET resul ts See flap presser d 08/02 CBC w/aut o diff with refle x Tatyana # (ANC) 10^3/u L 1.5 6.5 3.29 FINAL Arnaud joiner Whole Blood [facility] [address] [address] CLIA ID# [id number] 10 08/02 CBC w/aut o diff with refle x MCV fL 80.0 94.0 101.0 High FINAL Arnaud joiner Whole Blood [facility] [address] [address] CLIA ID# [id number] 10 08/02 CBC w/aut o diff with refle x IG % % 0.0 0.5 0.4 FINAL Arnaud joiner Whole Blood [facility] [address] [address] CLIA ID# [id number] 10 08/02 CBC w/aut o diff with refle x MO # 10^3/u L 0.0 1.0 0.40 FINAL Arnaud joiner Whole Blood [facility] [address] [address] CLIA ID# [id number] 10 08/02 CBC w/aut o diff with refle x IG # 10^3/u L 0.0 0.03 0.02 FINAL Arnaud joiner Whole Blood [facility] [address] [address] CLIA ID# [id number] 10 08/02 CBC w/aut o diff with refle x MO % % 3.0 11.0 7.5 FINAL Arnaud joiner Whole Blood [facility] [address] [address] CLIA ID# [id number] 10 08/02 CBC w/aut o diff with refle x EO # 10^3/u L 0.0 0.3 0.08 FINAL Arnaud joiner Whole Blood [facility] [address] [address] CLIA ID# [id number] 10 08/02 CBC w/aut o diff with refle x EO % % 0.0 3.0 1.5 FINAL Arnaud joiner Whole Blood [facility] [address] [address] CLIA ID# [id number] 10 08/02 CBC w/aut o diff with refle x RBC 10^6/u L 4.7 6.1 3.96 Low FINAL Arnaud joiner Whole Blood [facility] [address] [address] CLIA ID# [id number] 10 08/02 CBC w/aut o diff with refle x MPV fL 9.4 12.4 10.1 FINAL Arnaud joiner Whole Blood [facility] [address] [address] CLIA ID# [id number] 10 08/02 CBC w/aut o diff with refle x BA % % 0.0 1.0 0.4 FINAL Arnaud joiner Whole Blood [facility] [address] [address] CLIA ID# [id number] 10 08/02 CBC w/aut o diff with refle x BA # 10^3/u L 0.0 0.2 0.02 FINAL Arnaud joiner Whole Blood [facility] [address] [address] CLIA ID# [id number] 10 08/02 CBC w/aut o diff with refle x HGB g/dL 14.0 18.0 13.2 Low FINAL Arnaud joiner Whole Blood [facility] [address] [address] CLIA ID# [id number] 10 08/02 CBC w/aut o diff with refle x MCHC g/dL 33.0 37.0 33.0 FINAL Arnaud joiner Whole Blood [facility] [address] [address] CLIA ID# [id number] 10 08/02 CBC w/aut o diff with refle x HCT % 40.0 50.0 40.0 FINAL Arnaud joiner Whole Blood [facility] [address] [address] CLIA ID# [id number] 10 08/02 CBC w/aut o diff with refle x NRBC, % % 0.0 0.2 0.0 FINAL Arnaud joiner Whole Blood [facility] [address] [address] CLIA ID# [id number] 10 08/02 CBC w/aut o diff with refle x WBC 10^3/u L 4.8 10.8 5.3 FINAL Arnaud joiner Whole Blood [facility] [address] [address] CLIA ID# [id number] 10 08/02 CBC w/aut o diff with refle x PLT 10^3/u L 130.0 400.0 167 FINAL Arnaud joiner Whole Blood [facility] [address] [address] CLIA ID# [id number] 10 08/02 CBC w/aut o diff with refle x RDW % 10.5 14.5 13.3 FINAL Arnaud joiner Whole Blood [facility] [address] [address] CLIA ID# [id number] 10 08/02 CBC w/aut o diff with refle x LY % % 15.0 41.0 28.2 FINAL Arnaud joiner Whole Blood [facility] [address] [address] CLIA ID# [id number] 10 08/02 CBC w/aut o diff with refle x MCH pg 27.0 31.0 33.3 High FINAL Arnaud joiner Whole Blood [facility] [address] [address] CLIA ID# [id number] 10 08/02 CBC w/aut o diff with refle x LY # 10^3/u L 1.2 3.4 1.50 FINAL Arnaud joiner Whole Blood [facility] [address] [address] CLIA ID# [id number] 10 08/02 CBC w/aut o diff with refle x NRBC, absol tobias, x 10^3/ uL 10^3/u L 0.0 0.01 0.00 FINAL Arnaud joiner Whole Blood [facility] [address] [address] CLIA ID# [id number] 10 08/02 CBC w/aut o diff with refle x Tatyana % % 40.0 77.0 62.0 FINAL Arnaud joiner Whole Blood [facility] [address] [address] CLIA ID# [id number] 10 07/12 TSH panel TSH uIU/mL 0.45 4.5 5.500 High FINAL Mare Solano Serum [HD] [facility]. [facility].[address].Ph one: [phone].Lab oratory Director : Shyam Villegas 07/12 T4, free panel T4, free ng/dL 0.82 1.77 0.99 Jocelyn l FINAL Mare Bowie Serum [HD] [facility]. [facility].[address].Ph one: .Lab oratory Director : Shyam Villegas 08/02 CMP ALT/S GPT U/L 16.0 63.0 35 FINAL Arnaud Abad-B erg Serum [address] [address] CLIA ID# [id number] 39 08/02 CMP A/G ratio 0.8 2.0 0.9 FINAL Arnaud Abad-B erges Serum [address] [place] [address] CLIA ID# [id number] 39 08/02 CMP Gluco se mg/dL 74.0 106.0 155 High FINAL Arnaud Leblancy-B erges Serum [facility] n [address] [place] [address]..[address] [address] CLIA ID# [id number] 39 08/02 CMP Globu ciro g/dL 2.2 4.2 3.2 FINAL Arnaud Abad-B erges Serum [address] [address] CLIA ID# [id number] 39 08/02 CMP Total prote in g/dL 6.4 8.2 6.1 Low FINAL Arnaud Leblancy-B erges Serum [address] [address] CLIA ID# [id number] 39 08/02 CMP AST/S GOT U/L 15.0 37.0 35 FINAL Arnaud joiner Serum [facility]ly [facility] n [address] [address] CLIA ID# [id number] 39 08/02 CMP Bilir ubin, total mg/dL 0.2 1.0 0.4 FINAL Arnaud joiner Serum [facility] n [address] [address] CLIA ID# [id number] 39 08/02 CMP Sodiu m mmol/L 136.0 145.0 141 FINAL Arnaud douglass Serum Formerly [facility] n [address] [address] CLIA ID# [id number] 39 08/02 CMP Alkal ine phosp hatas e U/L 46.0 116.0 137 High FINAL Arnaud douglass Serum [facility] n [address] [address] CLIA ID# [id number] 39 08/02 CMP GFR estim ate mil/mi n/1.73 m2 41 Low Result based on the eGFR 2020 calculati on.60-89 mL/min/1. 73m^2 without kidney damage may be normal.60 -89 mL/min/1. 73m^2 for 3 months or more, along with kidney damage, may indicate early kidney disease.C alculatio n modified to the 2020 formula effective 08/22/22. FINAL Arnaud douglass Serum [facility] n [address] [address] CLIA ID# [id number] 39 08/02 CMP Calci um mg/dL 8.5 10.1 8.3 Low FINAL Arnaud douglass Serum [facility] n [address] [address] CLIA ID# [id number] 39 08/02 CMP CO2 mmol/L 21.0 32.0 27.7 FINAL Arnaud Burt erges Serum [facility]ly [facility] n [address] [address] CLIA ID# [id number] 39 08/02 CMP Creat inine , mg/dL mg/dL 0.55 1.3 1.66 High FINAL Arnaud Burt ergmarilee Serum [facility]ly [facility] n [address] [address] CLIA ID# [id number] 39 08/02 CMP Chlor viola mmol/L 97.0 107.0 104 FINAL Arnaud douglasses Serum [facility] [place] [place] [address] [address] CLIA ID# [id number] 39 08/02 CMP BUN mg/dL 7.0 18.0 22 High FINAL Arnaud Burt erges Serum [facility] [place] [place] [address] [address] CLIA ID# [id number] 39 08/02 CMP Album in g/dL 3.4 5.0 2.9 Low FINAL Arnaud joiner Serum [facility] n [address] [address] CLIA ID# [id number] 39 08/02 CMP BUN/C reati nine ratio 6.0 25.0 13.3 FINAL Arnaud ChaviraB erges Serum [facility] n [address] [address] CLIA ID# [id number] 39 08/02 CMP Potas sium mmol/L 3.5 5.1 3.9 FINAL Arnaud Burt erges Serum [facility] n [address] [address] CLIA ID# [id number] 39 06/14 CBC w/aut o diff with refle x Auto CBC comme nts See Smear FINAL Arnaud Burt erges Whole Blood [facility] [address] [address] CLIA ID# [id number] Medications Administered Date Name Route Dose Frequency Instructions Start Date End Date Status 2024 4 ML pembrolizumab 25 MG/ML Injection intravenously 200.0 mg once Dilute with NS or D5W to a final concentration of 1-10 mg/mL. Infuse with low protein binding filter (0.2 - 5 micron). Do not mix with other drugs. Do not shake. 08/03 inactive 2024 Sodium Chloride IV 0.9 % intravenously 1000.0 mL once 08/03 inactive 2024 4 ML pembrolizumab 25 MG/ML Injection intravenously 200.0 mg once Dilute with NS or D5W to a final concentration of 1-10 mg/mL. Infuse with low protein binding filter (0.2 - 5 micron). Do not mix with other drugs. Do not shake. 07/13 inactive 2024 4 ML pembrolizumab 25 MG/ML Injection intravenously 200.0 mg once Dilute with NS or D5W to a final concentration of 1-10 mg/mL. Infuse with low protein binding filter (0.2 - 5 micron). Do not mix with other drugs. Do not shake. 06/22 inactive Medications Date Name Route Dose Frequency Instructions Start Date End Date Status Furosemide Oral orally 1.0 tablet daily quantity sufficient for 30 days; 1 refills active Acetaminophen Oral orally 650.0 mg 4 times per day prn pain active Omeprazole Oral Delayed Release Capsule orally 20.0 mg daily active Metoprolol Oral (Tartrate) orally 25.0 mg 2 times per day active Levothyroxine Oral orally 1.0 tablet daily quantity sufficient for 30 days; 3 refills active Diltiazem Oral 24 hr Cap orally 1.0 capsule,ext .rel 24h degradable daily quantity sufficient for 30 days; 3 refills active Irbesartan Oral orally 300.0 mg daily active Lisinopril Oral orally 20.0 mg daily active Tamsulosin Oral orally 0.4 mg daily active Valsartan Oral po qd active Lenvatinib Oral orally 10.0 mg daily active Pembrolizumab IV intravenouslyP iggyback 200.0 every 3 weeks administer over 30 mins active 09/14 diphenhydrami ne hydrochloride 0.5 MG/ML Injectable Solution intravenously 50.0 mg Re-initiate treatment only upon physician approval. 2024 active 09/14 famotidine 10 MG/ML Injectable Solution intravenously 20.0 mg Re-initiate treatment only upon physician approval. 2024 active 09/14 Methylprednis olone IV intravenously 125.0 mg Re-initiate treatment only upon physician approval. 2024 active 09/14 4 ML pembrolizumab 25 MG/ML Injection intravenously 200.0 mg once Dilute with NS or D5W to a final concentration of 1-10 mg/mL. Infuse with low protein binding filter (0.2 - 5 micron). Do not mix with other drugs. Do not shake. 2024 active 09/14 1 ML epinephrine 1 MG/ML Injection intramuscularl y 0.3 mg once Re-initiate treatment only upon physician approval. 2024 active 09/14 Hydrocortison e IV intravenously 100.0 mg Re-initiate treatment only upon physician approval. 2024 active 08/24 Hydrocortison e IV intravenously 100.0 mg Re-initiate treatment only upon physician approval. 2024 active 08/24 diphenhydrami ne hydrochloride 0.5 MG/ML Injectable Solution intravenously 50.0 mg Re-initiate treatment only upon physician approval. 2024 active 08/24 4 ML pembrolizumab 25 MG/ML Injection intravenously 200.0 mg once Dilute with NS or D5W to a final concentration of 1-10 mg/mL. Infuse with low protein binding filter (0.2 - 5 micron). Do not mix with other drugs. Do not shake. 2024 active 08/24 Methylprednis olone IV intravenously 125.0 mg Re-initiate treatment only upon physician approval. 2024 active 08/24 1 ML epinephrine 1 MG/ML Injection intramuscularl y 0.3 mg once Re-initiate treatment only upon physician approval. 2024 active 08/24 famotidine 10 MG/ML Injectable Solution intravenously 20.0 mg Re-initiate treatment only upon physician approval. 2024 active 08/03 Hydrocortison e IV intravenously 100.0 mg Re-initiate treatment only upon physician approval. 2024 active 08/03 1 ML epinephrine 1 MG/ML Injection intramuscularl y 0.3 mg once Re-initiate treatment only upon physician approval. 2024 active 08/03 famotidine 10 MG/ML Injectable Solution intravenously 20.0 mg Re-initiate treatment only upon physician approval. 2024 active 08/03 diphenhydrami ne hydrochloride 0.5 MG/ML Injectable Solution intravenously 50.0 mg Re-initiate treatment only upon physician approval. 2024 active 08/03 Methylprednis olone IV intravenously 125.0 mg Re-initiate treatment only upon physician approval. 2024 active 08/02 levothyroxine sodium 0.112 MG Oral Capsule orally 1.0 capsule every day 2024 active 07/13 famotidine 10 MG/ML Injectable Solution intravenously 20.0 mg Re-initiate treatment only upon physician approval. 2024 active 07/13 Methylprednis olone IV intravenously 125.0 mg Re-initiate treatment only upon physician approval. 2024 active 07/13 1 ML epinephrine 1 MG/ML Injection intramuscularl y 0.3 mg once Re-initiate treatment only upon physician approval. 2024 active 07/13 Hydrocortison e IV intravenously 100.0 mg Re-initiate treatment only upon physician approval. 2024 active 07/13 diphenhydrami ne hydrochloride 0.5 MG/ML Injectable Solution intravenously 50.0 mg Re-initiate treatment only upon physician approval. 2024 active 06/22 famotidine 10 MG/ML Injectable Solution intravenously 20.0 mg Re-initiate treatment only upon physician approval. 2024 active 06/22 Hydrocortison e IV intravenously 100.0 mg Re-initiate treatment only upon physician approval. 2024 active 06/22 diphenhydrami ne hydrochloride 0.5 MG/ML Injectable Solution intravenously 50.0 mg Re-initiate treatment only upon physician approval. 2024 active 06/22 Methylprednis olone IV intravenously 125.0 mg Re-initiate treatment only upon physician approval. 2024 active 06/22 1 ML epinephrine 1 MG/ML Injection intramuscularl y 0.3 mg once Re-initiate treatment only upon physician approval. 2024 active Problems Diagnosis Status Date of Diagnosis Resolution Date Renal cancer Active Other snf (current) drug therapy Active Procedures Date Category Name Instructions Status 06/14/2024 Physician Order RTC MD Ordered 06/22/2024 Physician Order RTC nurse for infusion Ordered 07/12/2024 Physician Order RTC ELPIDIO Ordered 07/12/2024 Physician Order RTC as previousl y ordered Ordered 07/12/2024 Physician Order Per MD Order send blood a nd urine results when ready to [facility] Dr. Dyer, Nephrology. Phone number [phone] pone number to get fax. Ordered 07/13/2024 Physician Order RTC nurse for infusion Ordered 08/02/2024 Physician Order RTC MD Ordered 08/03/2024 Physician Order RTC nurse for infusion Ordered 08/03/2024 Physician Order RTC nurse for infusion Ordered 03/05/2025 Physician Order RTC MD Ordered Social History Date Name Value 06/03/2023 Sex Male Visits Date Type Value 03/05/2025 Farray/ov/jg Vital Signs Date Type Value 06/14/2024 BMI 26.46 06/14/2024 Intravascular Systolic 194 06/14/2024 Intravascular Diastolic 99 06/14/2024 Body Temperature 98.00 06/14/2024 Heart Beat 62.00 06/14/2024 Respiratory Rate 18.00 06/14/2024 Pain Scale 0.00 06/14/2024 Weight 174.00 06/14/2024 BSA 1.93 06/14/2024 Height 68.00 06/22/2024 Pain Scale 0.00 06/22/2024 Oxygen Saturation 98.00 06/22/2024 Body Temperature 97.10 06/22/2024 Heart Beat 60.00 06/22/2024 Respiratory Rate 18.00 06/22/2024 Intravascular Systolic 148 06/22/2024 Intravascular Diastolic 103 06/22/2024 Height 68.00 07/12/2024 Heart Beat 63.00 07/12/2024 BSA 1.89 07/12/2024 BMI 25.24 07/12/2024 Height 68.00 07/12/2024 Weight 166.00 07/12/2024 Pain Scale 0.00 07/12/2024 Respiratory Rate 18.00 07/12/2024 Body Temperature 97.20 07/12/2024 Intravascular Systolic 178 07/12/2024 Intravascular Diastolic 99 07/13/2024 Oxygen Saturation 98.00 07/13/2024 Body Temperature 97.10 07/13/2024 Respiratory Rate 18.00 07/13/2024 Heart Beat 58.00 07/13/2024 Height 68.00 07/13/2024 Pain Scale 0.00 07/13/2024 Intravascular Systolic 176 07/13/2024 Intravascular Diastolic 90 08/02/2024 Weight 161.80 08/02/2024 Pain Scale 0.00 08/02/2024 BSA 1.87 08/02/2024 Body Temperature 97.80 08/02/2024 Heart Beat 66.00 08/02/2024 Intravascular Systolic 161 08/02/2024 Intravascular Diastolic 89 08/02/2024 Respiratory Rate 18.00 08/02/2024 BMI 24.60 08/02/2024 Height 68.00 08/03/2024 Intravascular Systolic 152 08/03/2024 Intravascular Diastolic 81 08/03/2024 Pain Scale 0.00 08/03/2024 Height 68.00 08/03/2024 Heart Beat 102.00 Notes Section * HemOnc Follow Up - [facility] [address] [address] P: F: PATIENT: KUMAR MALONE : 1945 Date of Service: 08/02/2024 Referring Provider: MD Gio Boyd MD Chief Complaint: Follow-up on his metastatic renal cell carcinoma and toxicity management from?pembrolizumab and lenvatinib. Principal Diagnosis: * Renal cancer ( Stage Date: Unknown, Stage IV (Right kidney, T2a, N1, cM1)-Clinical RCC IMDC Risk Group: Poor (3-6 risk factors); RCC Risk Group: Poor (>= 3 risk factors); Histopathologic Type: Clear cell renal carcinoma; Histologic Grade: G3; ICD-10:C64.1 ;Malignant neoplasm of right kidney, except renal pelvis ) Diagnosis*: Treatment History: Pembrolizumab + Lenvatinib Q21D Cycle Length: 21 Number Cycles: 8 Start: C1D1 on 06/10/2023 Assoc Dx: Renal cancer LOT: 1st Line Metastatic or Recurrent Stage: IV 06/10/2023 C2 D1 * Pembrolizumab IV, 200 mg * Lenvatinib Oral, 10 mg qday IV Hydration TxO Cycle Length: 1 Number Cycles: 1 Start: C1D1 on 08/03/2024 Assoc Dx: Renal cancer LOT: 1st Line Metastatic or Recurrent 08/03/2024 C1 D1 * Sodium Chloride IV 0.9 %, 1,000 mL Treatment History*: Pathology: History of Present Illness: 79-year-old man who has a history of 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 He was diagnosed with renal cell carcinoma?12/25/2021?when he was found to have a 10 cm?right renal mass?and a 1 cm right lower lobe of the lung nodule.? CT-guided biopsy of the right lower lobe of the lung nodule 01/07/2023 revealed clear-cell renal cell carcinoma.? The patient start ed?treatment with?pembrolizumab and lenvatinib January 2022,?CT chest, abdomen and pelvis 04/11/2022 showed good response to treatment?with decrease in the size of the primary tumor?and right lower lobe?of the lung metastasis,?on 06/16/2022 he underwent a cytoreductive nephrectomy with final pathology revealing a grade 3 clear-cell renal cell carcinoma measuring 9.5 cm in greatest dimension?with invasion into the perinephric?fat?and negative margins.? He restarted Lenvima?and pembrolizumab?June 2022?which was later positive to worsening creatinine?and later resumed.? PET CT scan 10/10/2022 showed enlargement of 2 lung metastasis compared to the previous scan from?March 2022, it was decided to continue with pembrolizumab and Lenvimaas it was thought?the progression was due to?interruption in treatment, he underwent SBRT of the 2?lung metastasis?as well as 1 hypermetabolic lesion in the right humeral head.? PET/CTscan 04/28/2023 showed no new disease,?to lung mets and possible humeral head?met?which have been?irradiated have decrease in FDG uptake consistent with response to radiotherapy. The patient received pembrolizumab and lenvatinib here with us last winter and then return to [place]?where he continue with the treatment.? A PET scan done?05/08/2024 showed a subcentimeter FDG avid soft tissue nodule in the right fifth/sixth intercostal space?suspicion for an isolated site of metastatic disease.? He received SBRT that ended last Wednesday. He?is originally from [place] and has been receiving his?pembrolizumab infusions?with us?while he spent 5 of the winter here in the [facility].? He is going back to [place] in about 2 weeks.? Will be having repeat imaging studies in [place].? TSH 07/12/2024 was slightly elevated?at 5.5,?the rest of the blood work including CBC, CMP were within normal limits. 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 * Diltiazem Oral 24 hr Cap 240 mg capsule,ext.rel 24h degradable 1 capsule,ext.rel 24h degradable orally daily quantity sufficient for 30 days; 3 refills * Keytruda (Pembrolizumab IV) intravenouslyPiggyback every 3 weeks administer over 30 mins * Lenvima (Lenvatinib Oral) 10 mg orally daily * Omeprazole Oral Delayed Release Capsule 20 mg orally daily * Valsartan Oral 80 mg tablet po qd * Irbesartan Oral 300 mg orally daily * Levothyroxine Oral 100 mcg tablet 1 tablet orally daily quantity sufficient for 30 days; 3 refills * Metoprolol Oral (Tartrate) 25 mg orally 2 times per day * Tylenol (Acetaminophen Oral) 650 mg orally 4 times per day prn pain Medications reviewed and reconciled with patient. Medications*: Allergies: * Sulfamide Allergies*: Smoking Status: Smoking Tobacco : Never smoker; Smokeless Tobacco : none found; Vaping : none found Social History: , 2 children, retired, does not smoke or drink. Family History: * Father: - Prostate cancer * Brother 1: Alive and Well - Prostate cancer * Uncle - Paternal (2nd Degree): - Prostate cancer Family History*: ROS: REVIEW OF SYSTEMS: Constitutional symptoms: ?No fevers, night sweats or weight loss. HEENT: ?Anicteric. ?No nasal discharge, sore throat, or neck masses. Cardiovascular: ?No palpitations, chest pain, orthopnea, dyspnea on exertion or paroxysmal nocturnal dyspnea. Respiratory: ?No cough, hemoptysis, dyspnea or sputum production. Gastrointestinal: ?No nausea, vomiting, anorexia, diarrhea, constipation, abdominal pain, hematemesis, hematochezia or melena. Genitourinary: ?No dysuria or hematuria. Neurological: ?No focal weakness, numbness, or tingling. Musculoskeletal: ?No bony pain, myalgias or loss of muscle mass. Integumentary: ?No rashes, pruritus, petechia or ecchymoses. Endocrine: ?No heat/cold intolerance or polyuria. Hematologic/Lymphatics: ?No enlarged lymph nodes, easy bruising, or gum bleeding. Vitals: Height: None Today; Weight: None Today; Blood pressure: , Pulse: , Temperature: , Respirations: , Pain Scale: Karnofsky: Not Assessed Physical Exam: GENERAL: ?The patient is in no apparent distress. SKIN: ?No rashes, petechiae or ecchymoses. HEENT: ?Anicteric. ?Pupils are equally round and reactive to light. NECK: ?Supple, no jugular venous distention. LYMPH NODES: ?No cervical, supraclavicular, axillary or inguinal lymphadenopathy. HEART: ?Regular rate and rhythm. ?Normal S1 and S2. ?No murmurs, rubs or gallops. LUNGS: ?Clear to auscultation and percussion bilaterally, no pleural rubs. ABDOMEN: ? Soft. ?Non-tender. ?No hepatosplenomegaly or masses. EXTREMITIES: ?No edema, clubbing or cyanosis. NEUROLOGICAL: ?Cranial nerves II through XII grossly intact; otherwise gross motor and sensory exam was nonfocal. Labs: CBC Lab Results 08/02/2024 07/12/2024 06/14/2024 07/29/2023 07/15/1906/24/2023 CBC WBC x 10^3/uL 5.3 5.2 4.8 5.8 6.2 5.9 RBC x 10^6/uL 3.96 (L) 4.24 (L) 3.85 (L) 3.91 (L) 4.22 (L) 3.96 (L) NRBC, absolute, x 10^3/uL 0.00 0.00 0.00 NRBC % /100 wbc 0.00 0.00 0.00 NRBC, % 0.0 0.0 0.0 HGB g/dL 13.2 (L) 13.7 (L) 12.3 (L) 12.8 (L) 13.9 (L) 13.1 (L) HCT % 40.0 41.6 37.8 (L) 38.0 (L) 41.7 38.6 (L) MCV fL 101.0 (H) 98.1 (H) 98.2 (H) 97 (H) 99 (H) 98 (H) MCH pg 33.3 (H) 32.3 (H) 31.9 (H) 32.7 (H) 32.9 (H) 33.1 (H) MCHC g/dL 33.0 32.9 (L) 32.5 (L) 33.7 33.3 33.9 RDW % 13.3 13.2 13.6 12.9 12.9 12.7 PLT x 10^3/uL 167 158 117 (L) 148 173 171 MPV fL 10.1 10.2 10.1 10.2 10.1 10.2 Tatyana % 62.0 67.3 62.8 62.6 58.7 68.1 LY % 28.2 22.7 26.2 25.9 27.3 21.0 MO % 7.5 7.7 7.9 8.1 9.3 7.2 EO % 1.5 1.7 2.5 2.7 3.9 (H) 3.2 (H) IG % 0.4 0.2 0.2 0.2 0.5 0.2 Tatyana # (ANC) x 10^3/uL 3.29 3.49 3.00 3.6 3.7 4.0 BA % 0.4 0.4 0.4 0.5 0.3 0.3 MO # x 10^3/uL 0.40 0.40 0.38 0.5 0.6 0.4 EO # x 10^3/uL 0.08 0.09 0.12 0.2 0.2 0.2 BA # x 10^3/uL 0.02 0.02 0.02 0.0 0.0 0.0 IG # x 10^3/uL 0.02 0.01 0.01 0.01 0.03 0.01 LY # x 10^3/uL 1.50 1.18 (L) 1.25 1.5 1.7 1.2 Auto CBC comments See Smear Chemistries Lab Results 08/02/2024 07/12/2024 06/14/2024 07/29/2023 07/15/1906/24/2023 Chemistries Glucose mg/dL 155 (H) 147 (H) 132 (H) 145 (H) 146 (H) 138 (H) BUN mg/dL 22 (H) 23 (H) 22 (H) 24 (H) 24 (H) 26 (H) Creatinine, mg/dL 1.66 (H) 1.59 (H) 1.54 (H) 1.51 (H) 1.46 (H) 1.53 (H ) BUN/Creatinine ratio 13.3 14.5 14.3 15.89 16.44 16.99 Sodium mmol/L 141 141 142 137 138 137 Potassium mmol/L 3.9 4.4 4.1 4.5 4.7 5.1 Chloride mmol/L 104 105 107 103 101 103 CO2 mmol/L 27.7 30.6 26.3 20.90 (L) 24.90 22.30 Anion gap 17.60 16.80 16.80 Calcium mg/dL 8.3 (L) 8.3 (L) 8.0 (L) 8.90 8.80 8.20 (L) Albumin g/dL 2.9 (L) 2.8 (L) 2.8 (L) 3.4 3.7 3.3 (L) Total protein g/dL 6.1 (L) 5.8 (L) 5.7 (L) 7.00 7.50 6.70 Globulin g/dL 3.2 3.0 2.9 3.60 3.80 3.40 A/G ratio 0.9 0.9 1.0 0.9 1.0 1.0 Bilirubin, total mg/dL 0.4 0.4 0.4 0.50 0.50 0.40 Alkaline phosphatase U/L 137 (H) 99 85 61 77 75 AST/SGOT U/L 35 25 24 19 25 23 ALT/SGPT U/L 35 32 23 22 30 27 GFR estimate mL/min/1.73m2 41 (L) 44 (L) 46 (L) 47 (L) 49 (L) 46 (L) Tumor Markers None Today Labs*: Imaging: Problem List: * Renal cancer ( Stage Date: Unknown, Stage IV (Right kidney, T2a, N1, cM1)- Clinical; ICD-10:C64.1 ;Malignant neoplasm of right kidney, except renal pelvis ) * Other rn long term care (current) drug therapy ( ICD-10:Z79.899 ;Other rn long term care (current) drug therapy ) Impression: * 79-year-old man with 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 He?developed an isolated subcentimeter metastasis in the right fifth/sixthintercostal space?which was treated with SBRT. * Hypothyroidism on treatment with levothyroxine. * Hypertension. Plan: * Continue pembrolizumab 200 mg IV every 3 weeks, next dose on?08/03/2024. * Continue lenvatinib 10 mg daily. * Increase levothyroxine to 112 mcg p.o. daily. * The patient already has an appointment to follow-up with his oncologist in [place]. * Return appointment when he returns to the [facility] during the winter?in May. Procedure: . Note dictated with a voice recognition system, subject to transcriptional variance. Arnaud Magdaleno MD Send copy of note to: MD Gio Boyd MD . Electronically signed by Arnaud Magdaleno MD 08/03/2024 05:42 CDT * [facility]- [facility] [address] [address] P:? PATIENT:?KUMAR MALONE :?1945 Date of Service:?07/12/2024 Referring Provider: MD Gio Boyd MD Chief Complaint: Principal Diagnosis: * Renal cancer ( Stage Date: Unknown, Stage IV (Right kidney, T2a, N1, cM1)-Clinical RCC IMDC Risk Group: Poor (3-6 risk factors); RCC Risk Group: Poor (>= 3 risk factors); Histopathologic Type: Clear cell renal carcinoma; Histologic Grade: G3; ICD-10:C64.1 ;Malignant neoplasm of right kidney, except renal pelvis ) Diagnosis*: Treatment History: Pembrolizumab + Lenvatinib Q21D[Assoc Dx: Renal cancer LOT: 1st Line Metastatic or Recurrent Stage:IV ] Treatment History*: Pathology: History of Present Illness: 78-year-old man who has a history of 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 He was diagnosed with renal cell carcinoma?12/25/2021?when he was found to have a 10 cm?right renal mass?and a 1 cm right lower lobe of the lung nodule.? CT-guided biopsy of the right lower lobe of the lung nodule 01/07/2023 revealed clear-cell renal cell carcinoma.? The patient start ed?treatment with?pembrolizumab and lenvatinib January 2022,?CT chest, abdomen and pelvis 04/11/2022 showed good response to treatment?with decrease in the size of the primary tumor?and right lower lobe?of the lung metastasis,?on 06/16/2022 he underwent a cytoreductive nephrectomy with final pathology revealing a grade 3 clear-cell renal cell carcinoma measuring 9.5 cm in greatest dimension?with invasion into the perinephric?fat?and negative margins.? He restarted Lenvima?and pembrolizumab?June 2022?which was later positive to worsening creatinine?and later resumed.? PET CT scan 10/10/2022 showed enlargement of 2 lung metastasis compared to the previous scan from?March 2022, it was decided to continue with pembrolizumab and Lenvimaas it was thought?the progression was due to?interruption in treatment, he underwent SBRT of the 2?lung metastasis?as well as 1 hypermetabolic lesion in the right humeral head.? PET/CTscan 04/28/2023 showed no new disease,?to lung mets and possible humeral head?met?which have been?irradiated have decrease in FDG uptake consistent with response to radiotherapy. The patient received pembrolizumab and lenvatinib here with us last winter and then return to [place]?where he continue with the treatment.? A PET scan done?05/08/2024 showed a subcentimeter FDG avid soft tissue nodule in the right fifth/sixth intercostal space?suspicion for an isolated site of metastatic disease.? He received SBRT that ended 06/09/2024. He continues to?tolerate treatment well with pembrolizumab and lenvatinib. ?He is doing well today with no complaints. 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: {Medications reviewed and reconciled with patient.} * Diltiazem Oral 24 hr Cap 240 mg capsule,ext.rel 24h degradable 1 capsule,ext.rel 24h degradable orally daily quantity sufficient for 30 days; 3 refills * Metoprolol Oral (Tartrate) 25 mg orally 2 times per day * Levothyroxine Oral 100 mcg tablet 1 tablet orally daily quantity sufficient for 30 days; 3 refills * Furosemide Oral 20 mg tablet 1 tablet orally daily quantity sufficient for 30 days; 1 refills * Lenvima (Lenvatinib Oral) 10 mg orally daily * Valsartan Oral 80 mg tablet po qd * Irbesartan Oral 300 mg orally daily * Keytruda (Pembrolizumab IV) intravenouslyPiggyback every 3 weeks administer over 30 mins * Omeprazole Oral Delayed Release Capsule 20 mg orally daily * Tamsulosin Oral 0.4 mg orally daily * Tylenol (Acetaminophen Oral) 650 mg orally 4 times per day prn pain Medications*: Allergies: * Sulfamide Allergies*: Smoking Status: Smoking Tobacco : Never smoker; Smokeless Tobacco : none found; Vaping : none found Social History: , 2 children, retired, does not smoke or drink. Family History: * Father: - Prostate cancer * Brother 1: Alive and Well - Prostate cancer * Uncle - Paternal (2nd Degree): - Prostate cancer Family History*: ROS: REVIEW OF SYSTEMS: Constitutional symptoms: ?No fevers, night sweats or weight loss. HEENT: ?Anicteric. ?No nasal discharge, sore throat, or neck masses. Cardiovascular: ?No palpitations, chest pain, orthopnea, dyspnea on exertion or paroxysmal nocturnal dyspnea. Respiratory: ?No cough, hemoptysis, dyspnea or sputum production. Gastrointestinal: ?No nausea, vomiting, anorexia, diarrhea, constipation, abdominal pain, hematemesis, hematochezia or melena. Genitourinary: ?No dysuria or hematuria. Neurological: ?No focal weakness, numbness, or tingling. Musculoskeletal: ?No bony pain, myalgias or loss of muscle mass. Integumentary: ?No rashes, pruritus, petechia or ecchymoses. Endocrine: ?No heat/cold intolerance or polyuria. Hematologic/Lymphatics: ?No enlarged lymph nodes, easy bruising, or gum bleeding. Vitals: Height: 68 in; Weight: 166 lb; Blood pressure: 178/99, Pulse: 63, Temperature: 97.2 F, Respirations: 18, Pain Scale: 0 Physical Exam: GENERAL: ?The patient is in no apparent distress. SKIN: ?No rashes, petechiae or ecchymoses. HEENT: ?Anicteric. ?Pupils are equally round and reactive to light. NECK: ?Supple, no jugular venous distention. LYMPH NODES: ?No cervical, supraclavicular, axillary or inguinal lymphadenopathy. HEART: ?Regular rate and rhythm. ?Normal S1 and S2. ?No murmurs, rubs or gallops. LUNGS: ?Clear to auscultation and percussion bilaterally, no pleural rubs. ABDOMEN: ? Soft. ?Non-tender. ?No hepatosplenomegaly or masses. EXTREMITIES: ?No edema, clubbing or cyanosis. NEUROLOGICAL: ?Cranial nerves II through XII grossly intact; otherwise gross motor and sensory exam was nonfocal. Labs: Lab Results 07/12/2024 06/14/2024 07/29/2023 07/15/2023 06/24/1906/03/2023 CBC WBC x 10^3/uL 5.2 4.8 5.8 6.2 5.9 6.1 RBC x 10^6/uL 4.24 (L) 3.85 (L) 3.91 (L) 4.22 (L) 3.96 (L) 4.08 (L) NRBC, absolute, x 10^3/uL 0.00 0.00 NRBC % /100 wbc 0.00 0.00 0.00 0.00 NRBC, % 0.0 0.0 HGB g/dL 13.7 (L) 12.3 (L) 12.8 (L) 13.9 (L) 13.1 (L) 13.3 (L) HCT % 41.6 37.8 (L) 38.0 (L) 41.7 38.6 (L) 40.3 MCV fL 98.1 (H) 98.2 (H) 97 (H) 99 (H) 98 (H) 99 (H) MCH pg 32.3 (H) 31.9 (H) 32.7 (H) 32.9 (H) 33.1 (H) 32.6 (H) MCHC g/dL 32.9 (L) 32.5 (L) 33.7 33.3 33.9 33.0 RDW % 13.2 13.6 12.9 12.9 12.7 12.5 PLT x 10^3/uL 158 117 (L) 148 173 171 156 MPV fL 10.2 10.1 10.2 10.1 10.2 10.3 Tatyana % 67.3 62.8 62.6 58.7 68.1 61.5 LY % 22.7 26.2 25.9 27.3 21.0 24.6 MO % 7.7 7.9 8.1 9.3 7.2 7.5 EO % 1.7 2.5 2.7 3.9 (H) 3.2 (H) 5.6 (H) IG % 0.2 0.2 0.2 0.5 0.2 0.3 Tatyana # (ANC) x 10^3/uL 3.49 3.00 3.6 3.7 4.0 3.8 BA % 0.4 0.4 0.5 0.3 0.3 0.5 MO # x 10^3/uL 0.40 0.38 0.5 0.6 0.4 0.5 EO # x 10^3/uL 0.09 0.12 0.2 0.2 0.2 0.3 BA # x 10^3/uL 0.02 0.02 0.0 0.0 0.0 0.0 IG # x 10^3/uL 0.01 0.01 0.01 0.03 0.01 0.02 LY # x 10^3/uL 1.18 (L) 1.25 1.5 1.7 1.2 1.5 Auto CBC comments See Smear Lab Results 07/12/2024 06/14/2024 07/29/2023 07/15/2023 06/24/1906/03/2023 Chemistries Glucose mg/dL 132 (H) 145 (H) 146 (H) 138 (H) 134 (H) BUN mg/dL 22 (H) 24 (H) 24 (H) 26 (H) 21 (H) Creatinine, mg/dL 1.54 (H) 1.51 (H) 1.46 (H) 1.53 (H) 1.49 (H ) BUN/Creatinine ratio 14.3 15.89 16.44 16.99 14.09 Sodium mmol/L 142 137 138 137 138 Potassium mmol/L 4.1 4.5 4.7 5.1 4.8 Chloride mmol/L 107 103 101 103 100 CO2 mmol/L 26.3 20.90 (L) 24.90 22.30 27.00 Anion gap 17.60 16.80 16.80 15.80 Calcium mg/dL 8.0 (L) 8.90 8.80 8.20 (L) 8.80 Albumin g/dL 2.8 (L) 3.4 3.7 3.3 (L) 3.6 Total protein g/dL 5.7 (L) 7.00 7.50 6.70 7.30 Globulin g/dL 2.9 3.60 3.80 3.40 3.70 A/G ratio 1.0 0.9 1.0 1.0 1.0 Bilirubin, total mg/dL 0.4 0.50 0.50 0.40 0.40 Alkaline phosphatase U/L 85 61 77 75 82 AST/SGOT U/L 24 19 25 23 21 ALT/SGPT U/L 23 22 30 27 27 GFR estimate mL/min/1.73m2 46 (L) 47 (L) 49 (L) 46 (L) 47 (L) ? 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 He?developed an isolated subcentimeter metastasis in the right fifth/sixthintercostal space?which was treated with SBRT. * Hypothyroidism on treatment with levothyroxine. * Hypertension. Plan: * Continue pembrolizumab 200 mg IV every 3 weeks, next dose on . * Continue lenvatinib 10 mg daily. * CBC, CMP, TSH and free T4 today * Return appointment in 3 weeks for toxicity management. * He will be returning to [place] mid July?after his pembrolizumab dose is completed in July. . Note dictated with a voice recognition system, subject to transcriptional variance. Mare TIJERINA PA-C ? Send copy of note to: MD Gio Boyd MD . Electronically signed by Mare TIJERINA PA-C 07/12/2024 10:27 DRAWER HARDWARE WORKER * [facility] Follow Up - [address] [address] P: F: PATIENT: KUMAR MALONE : 1945 Date of Service: 06/14/2024 Referring Provider: MD Gio Boyd MD Chief Complaint: Follow-up on his metastatic renal cell carcinoma and toxicity management from?pembrolizumab and lenvatinib. Principal Diagnosis: * Renal cancer ( Stage Date: Unknown, Stage IV (Right kidney, T2a, N1, cM1)-Clinical RCC IMDC Risk Group: Poor (3-6 risk factors); RCC Risk Group: Poor (>= 3 risk factors); Histopathologic Type: Clear cell renal carcinoma; Histologic Grade: G3; ICD-10:C64.1 ;Malignant neoplasm of right kidney, except renal pelvis ) Diagnosis*: Treatment History: Pembrolizumab + Lenvatinib Q21D Cycle Length: 21 Number Cycles: 8 Start: C1D1 on 06/10/2023 Assoc Dx: Renal cancer LOT: 1st Line Metastatic or Recurrent Stage: IV 06/10/2023 C2 D1 * Pembrolizumab IV, 200 mg * Lenvatinib Oral, 10 mg qday Treatment History*: Pathology: History of Present Illness: 78-year-old man who has a history of 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 He was diagnosed with renal cell carcinoma?12/25/2021?when he was found to have a 10 cm?right renal mass?and a 1 cm right lower lobe of the lung nodule.? CT-guided biopsy of the right lower lobe of the lung nodule 01/07/2023 revealed clear-cell renal cell carcinoma.? The patient start ed?treatment with?pembrolizumab and lenvatinib January 2022,?CT chest, abdomen and pelvis 04/11/2022 showed good response to treatment?with decrease in the size of the primary tumor?and right lower lobe?of the lung metastasis,?on 06/16/2022 he underwent a cytoreductive nephrectomy with final pathology revealing a grade 3 clear-cell renal cell carcinoma measuring 9.5 cm in greatest dimension?with invasion into the perinephric?fat?and negative margins.? He restarted Lenvima?and pembrolizumab?June 2022?which was later positive to worsening creatinine?and later resumed.? PET CT scan 10/10/2022 showed enlargement of 2 lung metastasis compared to the previous scan from?March 2022, it was decided to continue with pembrolizumab and Lenvimaas it was thought?the progression was due to?interruption in treatment, he underwent SBRT of the 2?lung metastasis?as well as 1 hypermetabolic lesion in the right humeral head.? PET/CTscan 04/28/2023 showed no new disease,?to lung mets and possible humeral head?met?which have been?irradiated have decrease in FDG uptake consistent with response to radiotherapy. The patient received pembrolizumab and lenvatinib here with us last winter and then return to [place]?where he continue with the treatment.? A PET scan done?05/08/2024 showed a subcentimeter FDG avid soft tissue nodule in the right fifth/sixth intercostal space?suspicion for an isolated site of metastatic disease.? He received SBRT that ended last Wednesday. He comes?today?to establish and resume his treatment here in the [facility]. 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: * Omeprazole Oral Delayed Release Capsule 20 mg orally daily * Tylenol (Acetaminophen Oral) 650 mg orally 4 times per day prn pain * Keytruda (Pembrolizumab IV) intravenouslyPiggyback every 3 weeks administer over 30 mins * Metoprolol Oral (Tartrate) 25 mg orally 2 times per day * Tamsulosin Oral 0.4 mg orally daily * Diltiazem Oral 24 hr Cap 240 mg capsule,ext.rel 24h degradable 1 capsule,ext.rel 24h degradable orally daily quantity sufficient for 30 days; 3 refills * Levothyroxine Oral 100 mcg tablet 1 tablet orally daily quantity sufficient for 30 days; 3 refills * Furosemide Oral 20 mg tablet 1 tablet orally daily quantity sufficient for 30 days; 1 refills * Irbesartan Oral 300 mg orally daily * Lenvima (Lenvatinib Oral) 10 mg orally daily Medications reviewed and reconciled with patient. Medications*: Allergies: * Sulfamide Allergies*: Smoking Status: Smoking Tobacco : Never smoker; Smokeless Tobacco : none found; Vaping : none found Social History: , 2 children, retired, does not smoke or drink. Family History: * Father: - Prostate cancer * Brother 1: Alive and Well - Prostate cancer * Uncle - Paternal (2nd Degree): - Prostate cancer Family History*: ROS: REVIEW OF SYSTEMS: Constitutional symptoms: ?No fevers, night sweats or weight loss. HEENT: ?Anicteric. ?No nasal discharge, sore throat, or neck masses. Cardiovascular: ?No palpitations, chest pain, orthopnea, dyspnea on exertion or paroxysmal nocturnal dyspnea. Respiratory: ?No cough, hemoptysis, dyspnea or sputum production. Gastrointestinal: ?No nausea, vomiting, anorexia, diarrhea, constipation, abdominal pain, hematemesis, hematochezia or melena. Genitourinary: ?No dysuria or hematuria. Neurological: ?No focal weakness, numbness, or tingling. Musculoskeletal: ?No bony pain, myalgias or loss of muscle mass. Integumentary: ?No rashes, pruritus, petechia or ecchymoses. Endocrine: ?No heat/cold intolerance or polyuria. Hematologic/Lymphatics: ?No enlarged lymph nodes, easy bruising, or gum bleeding. Vitals: Height: 68 in; Weight: 174 lb; Blood pressure: 194/99, Pulse: 62, Temperature: 98 F, Respirations: 18, Pain Scale: 0 Karnofsky: Not Assessed Physical Exam: GENERAL: ?The patient is in no apparent distress. SKIN: ?No rashes, petechiae or ecchymoses. HEENT: ?Anicteric. ?Pupils are equally round and reactive to light. NECK: ?Supple, no jugular venous distention. LYMPH NODES: ?No cervical, supraclavicular, axillary or inguinal lymphadenopathy. HEART: ?Regular rate and rhythm. ?Normal S1 and S2. ?No murmurs, rubs or gallops. LUNGS: ?Clear to auscultation and percussion bilaterally, no pleural rubs. ABDOMEN: ? Soft. ?Non-tender. ?No hepatosplenomegaly or masses. EXTREMITIES: ?No edema, clubbing or cyanosis. NEUROLOGICAL: ?Cranial nerves II through XII grossly intact; otherwise gross motor and sensory exam was nonfocal. Labs: CBC Lab Results 07/29/2023 07/15/2023 06/24/2023 06/03/2023 05/20/2004/14/2023 CBC WBC x 10^3/uL 5.8 6.2 5.9 6.1 RBC x 10^6/uL 3.91 (L) 4.22 (L) 3.96 (L) 4.08 (L) NRBC % /100 wbc 0.00 0.00 0.00 0.00 HGB g/dL 12.8 (L) 13.9 (L) 13.1 (L) 13.3 (L) HCT % 38.0 (L) 41.7 38.6 (L) 40.3 MCV fL 97 (H) 99 (H) 98 (H) 99 (H) MCH pg 32.7 (H) 32.9 (H) 33.1 (H) 32.6 (H) MCHC g/dL 33.7 33.3 33.9 33.0 RDW % 12.9 12.9 12.7 12.5 PLT x 10^3/uL 148 173 171 156 MPV fL 10.2 10.1 10.2 10.3 Tatyana % 62.6 58.7 68.1 61.5 LY % 25.9 27.3 21.0 24.6 MO % 8.1 9.3 7.2 7.5 EO % 2.7 3.9 (H) 3.2 (H) 5.6 (H) IG % 0.2 0.5 0.2 0.3 Tatyana # (ANC) x 10^3/uL 3.6 3.7 4.0 3.8 BA % 0.5 0.3 0.3 0.5 MO # x 10^3/uL 0.5 0.6 0.4 0.5 EO # x 10^3/uL 0.2 0.2 0.2 0.3 BA # x 10^3/uL 0.0 0.0 0.0 0.0 IG # x 10^3/uL 0.01 0.03 0.01 0.02 LY # x 10^3/uL 1.5 1.7 1.2 1.5 Chemistries Lab Results 07/29/2023 07/15/2023 06/24/2023 06/03/2023 05/20/20 23 04/14/2023 Chemistries Glucose mg/dL 145 (H) 146 (H) 138 (H) 134 (H) BUN mg/dL 24 (H) 24 (H) 26 (H) 21 (H) Creatinine, mg/dL 1.51 (H) 1.46 (H) 1.53 (H) 1.49 (H) BUN/Creatinine ratio 15.89 16.44 16.99 14.09 Sodium mmol/L 137 138 137 138 Potassium mmol/L 4.5 4.7 5.1 4.8 Chloride mmol/L 103 101 103 100 CO2 mmol/L 20.90 (L) 24.90 22.30 27.00 Anion gap 17.60 16.80 16.80 15.80 Calcium mg/dL 8.90 8.80 8.20 (L) 8.80 Albumin g/dL 3.4 3.7 3.3 (L) 3.6 Total protein g/dL 7.00 7.50 6.70 7.30 Globulin g/dL 3.60 3.80 3.40 3.70 A/G ratio 0.9 1.0 1.0 1.0 Bilirubin, total mg/dL 0.50 0.50 0.40 0.40 Alkaline phosphatase U/L 61 77 75 82 AST/SGOT U/L 19 25 23 21 ALT/SGPT U/L 22 30 27 27 GFR estimate mL/min/1.73m2 47 (L) 49 (L) 46 (L) 47 (L) Tumor Markers None Today Labs*: Imaging: Problem List: * Renal cancer ( Stage Date: Unknown, Stage IV (Right kidney, T2a, N1, cM1)- Clinical; ICD-10:C64.1 ;Malignant neoplasm of right kidney, except renal pelvis ) Impression: * 78-year-old man with 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 He?developed an isolated subcentimeter metastasis in the right fifth/sixthintercostal space?which was treated with SBRT. * Hypothyroidism on treatment with levothyroxine. * Hypertension. Plan: * Continue pembrolizumab 200 mg IV every 3 weeks, next dose on 06/22/2024. * Continue lenvatinib 10 mg daily. * CBC, CMP, TSH and free T4 today * Return appointment in 3 weeks for toxicity management. * He will be returning to [place] mid July Procedure: . Note dictated with a voice recognition system, subject to transcriptional variance. Arnaud Magdaleno MD ? Send copy of note to: MD Gio Boyd MD . Electronically signed by Arnaud Magdaleno MD 06/14/2024 15:51 DRAWER HARDWARE WORKER
--- OUTSIDE RECORDS SUMMARY | 2024-12-31 11:35 | XMS_ITS ---
Author Name Interface, [id number] l[facility] Address [address] [place] [address] Oncology Address [address] [place] [address] Allergies and Adverse Reactions Plan Reason for Visit Encounters Immunizations Diagnostic Results Medications Problems Vital Signs Notes Section
--- OUTSIDE RECORDS SUMMARY | 2024-12-31 11:35 | XMS_ITS | Encounter Summary ---
Author Organization [facility] Address [address] [place] [address]. [place] [address] Care Team Providers Care Specimen Processor Name Role Phone Beto Anne MD Primary Care Provider [phone] Encounter Details Date Type Department Care Team (Late st Contact Info) Description 12/25/2024 Transcribe Orders GENERIC EXTERNAL DATA DEPARTMENT Gio Lopez MD [facility] [address] [place], [place] [address] Social History Tobacco Use Types Packs/Day Years Used Date Smoking Tobacco: Never Assessed Adolescent Education Answer Date Record ed Getting School Help Needed Not on file 02/22 Sex and Gender Information Value Date Recorded Sex Assigned at Not on file 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 Gender Identity Not on file Sexual Orientation Not on file documented as of this encounter Plan of Treatment Upcoming Encounters Date Type Department Care Team (Late st Contact Info) Description 02/01/2025 10:00 AM CDT Appointment [facility] [address] [place] [phone] Gio Lopez MD [facility] [address] [place] [address] 02/01/2025 10:00 AM CDT Appointment [facility] [address] [place] [phone] Gio Lopez MD [facility] [address] [facility] [address] [place] [address] documented as of this encounter Visit Diagnoses Not on filedocumented in this encounter Care Teams Specimen Processor Relationship Specialty Start Date End Date Beto Anne MD [facility] [address] [place] [address] PCP - General Family Medicine 01/05/22 documented as of this encounter
--- OUTSIDE RECORDS SUMMARY | 2024-12-31 11:35 | XMS_ITS | Encounter Summary ---
Author Organization [facility] Address [address] [place] [address]. [place] [address] Care Team Providers Care Snath Handle Assembler Name Role Phone Beto Anne MD Primary Care Provider [phone] Reason for Referral * Diagnostic Imaging XR (Routine) - Authorized Specialty Diagnoses / Procedures Referred By Joaquin vilchis Referred To Contact Radiology. Diagnoses Renal carcinoma, right (H) Dysphagia Procedures XR Video Swallow with TRANSPORTATION DISPATCH MANAGER or OT - Order with Speech Therapy Referral Gio Lopez MD [facility] [address] [id number] Phone: tel: fax: Referral ID Status Reason Start Date Expiration Date V isits Requested Visits Authorized [id number] Authorized 12/25/2024 12/25/2025 1 1 * Therapeutic Services (Routine) - Pending Review Specialty Diagnoses / Procedures [facility] Referred To Contact Diagnoses Renal carcinoma, right (H) Dysphagia Gio Lopez MD [facility] [address] [place] [address] Phone: tel: fax: Referral ID Status Reason Start Date Expiration Date V isits Requested Visits Authorized [id number] Pending Review 12/25/2024 12/25/2025 1 1 Question Answer Course of Action: Evaluation and Treatment Speech Treatment Diagnosis: Dysphagia Specialty Services: Video Swallow Study Patient Scheduling Instructions: [facility] will call you to coordinate your care as prescribed by your provider. If you don't hear from a equal opportunity representative within 2 business days, please call . Comments Please be aware that coverage of these services is subject to the terms and limitations of your health insurance plan. Call member services at your health plan with any benefit or coverage questions. [facility] will call you to coordinate your care as prescribed by your provider. If you don't hear from a equal opportunity representative within 2 business days, please call . 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 Gender Identity Not on file Sexual Orientation Not on file documented as of this encounter Plan of Treatment Upcoming Encounters Date Type Department Care Team (Late st Contact Info) Description 02/01/2025 10:00 AM CDT Appointment [facility] [address] [place] [phone] Gio Lopez MD [facility] [address] [place] [address] 02/01/2025 10:00 AM CDT Appointment [facility] [address] [place] [phone] Gio Lopez MD [facility] [address] [place], [place] [id number] Scheduled Orders Name Type Priority Associated Diagnoses Orde r Schedule XR Video Swallow with TRANSPORTATION DISPATCH MANAGER or OT - Order with Speech Therapy Referral Imaging Routine Renal carcinoma, right (H) Dysphagia Expected: 12/25/2024 (Approximate), Expires: 12/25/2025 Scheduled Referrals Name Type Priority Associated Diagnoses Orde r Schedule Speech Therapy Automatic Developer Referral Referral Routine Renal carcinoma, right (H) Dysphagia Ordered: 12/25/2024 documented as of this encounter Visit Diagnoses Diagnosis Renal carcinoma, right (H)- Primary Dysphagia Dysphagia, unspecified documented in this encounter Care Teams Snath Handle Assembler Relationship Specialty Start Date End Date Beto Anne MD [facility] [address] [address] PCP - General Family Medicine 01/05/22 documented as of this encounter
--- OUTSIDE RECORDS SUMMARY | 2024-12-31 11:36 | XMS_ITS ---
Author Name Interface, [id number] lity Address [address] [facility] [address] [address] [facility] Address [address] [facility] [address] [address] Allergies and Adverse Reactions Medication/Group Name Reaction Severity Date metformin 12/20/2024 Sulfamide Mild to moderate 12/20/2024 Plan Date Type Value 01/24/2025 APPOINTMENT OV 20 MIN 01/24/2025 APPOINTMENT LAB 15 MIN 12/20/2024 APPOINTMENT LAB 10 MIN 12/20/2024 APPOINTMENT OV 20 MIN 12/18/2024 APPOINTMENT OUTSIDE TEST 5 M IN 11/20/2024 APPOINTMENT LAB 15 MIN 11/20/2024 APPOINTMENT OV 20 MIN 10/13/2024 APPOINTMENT LAB 10 MIN 10/13/2024 APPOINTMENT OV 20 MIN 10/13/2024 APPOINTMENT LAB 10 MIN 10/13/2024 APPOINTMENT OV 20 MIN 09/22/2024 APPOINTMENT TREATMENT 2 HR 09/15/2024 APPOINTMENT LAB 10 MIN 09/15/2024 APPOINTMENT OV 20 MIN 09/14/2024 APPOINTMENT OV 20 MIN 09/14/2024 APPOINTMENT LAB 15 MIN 08/24/2024 APPOINTMENT TREATMENT 1 HR 08/24/2024 APPOINTMENT OV 20 MIN 08/24/2024 APPOINTMENT LAB 15 MIN 08/21/2024 APPOINTMENT OUTSIDE TEST 5 M IN 08/21/2024 APPOINTMENT OUTSIDE TEST 5 M IN 08/17/2024 APPOINTMENT OUTSIDE TEST 5 M IN 06/01/2024 APPOINTMENT TREATMENT 1 HR 06/01/2024 APPOINTMENT OV 20 MIN 06/01/2024 APPOINTMENT LAB 15 MIN 05/11/2024 APPOINTMENT TREATMENT 1 HR 05/11/2024 APPOINTMENT OV 20 MIN 05/11/2024 APPOINTMENT LAB 15 MIN 05/08/2024 APPOINTMENT OUTSIDE TEST 5 M IN 05/08/2024 APPOINTMENT OUTSIDE TEST 5 M IN 04/21/2024 APPOINTMENT TREATMENT 1 HR 04/21/2024 APPOINTMENT LAB 15 MIN 04/21/2024 APPOINTMENT OV 30 MIN 04/21/2024 APPOINTMENT LAB 15 MIN 04/21/2024 APPOINTMENT TREATMENT 1 HR 03/30/2024 APPOINTMENT TREATMENT 1 HR 03/30/2024 APPOINTMENT OV 20 MIN 03/30/2024 APPOINTMENT LAB 15 MIN 03/30/2024 APPOINTMENT OUTSIDE TEST 5 M IN 03/09/2024 APPOINTMENT TREATMENT 1 HR 03/03/2024 APPOINTMENT LAB 10 MIN 03/03/2024 APPOINTMENT OV 20 MIN 02/28/2024 APPOINTMENT OUTSIDE TEST 5 M IN 02/24/2024 APPOINTMENT LAB 15 MIN 02/17/2024 APPOINTMENT TREATMENT 1 HR 02/17/2024 APPOINTMENT LAB 15 MIN 02/17/2024 APPOINTMENT OV 30 MIN 01/27/2024 APPOINTMENT TREATMENT 1 HR 01/27/2024 APPOINTMENT OV 20 MIN 01/27/2024 APPOINTMENT LAB 15 MIN 01/06/2024 APPOINTMENT TREATMENT 1 HR 01/06/2024 APPOINTMENT OV 30 MIN 01/06/2024 APPOINTMENT LAB 15 MIN 12/16/2023 APPOINTMENT TREATMENT 1 HR 12/16/2023 APPOINTMENT OV 20 MIN 12/16/2023 APPOINTMENT LAB 15 MIN 12/02/2023 APPOINTMENT LAB 15 MIN 11/26/2023 APPOINTMENT OV 20 MIN 11/26/2023 APPOINTMENT TREATMENT 1 HR 11/26/2023 APPOINTMENT LAB 15 MIN 11/15/2023 APPOINTMENT OUTSIDE TEST 5 M IN 11/04/2023 APPOINTMENT TREATMENT 1 HR 11/04/2023 APPOINTMENT OV 20 MIN 11/04/2023 APPOINTMENT LAB 15 MIN 10/14/2023 APPOINTMENT TREATMENT 1 HR 10/14/2023 APPOINTMENT OV 30 MIN 10/14/2023 APPOINTMENT LAB 15 MIN 09/23/2023 APPOINTMENT TREATMENT 1 HR 09/23/2023 APPOINTMENT OV 20 MIN 09/23/2023 APPOINTMENT LAB 15 MIN 09/02/2023 APPOINTMENT TREATMENT 1 HR 09/02/2023 APPOINTMENT OV 30 MIN 09/02/2023 APPOINTMENT LAB 15 MIN 08/12/2023 APPOINTMENT LAB 10 MIN 08/12/2023 APPOINTMENT TREATMENT 1 HR 08/12/2023 APPOINTMENT OV 20 MIN 08/09/2023 APPOINTMENT OUTSIDE TEST 5 M IN 05/20/2023 APPOINTMENT TREATMENT 1 HR 05/20/2023 APPOINTMENT OV 30 MIN 05/20/2023 APPOINTMENT LAB 15 MIN 04/29/2023 APPOINTMENT TREATMENT 1 HR 04/29/2023 APPOINTMENT OV 20 MIN 04/29/2023 APPOINTMENT LAB 10 MIN 04/28/2023 APPOINTMENT OUTSIDE TEST 5 M IN 04/21/2023 APPOINTMENT LAB 15 MIN 04/21/2023 APPOINTMENT TREATMENT 2 HR 04/14/2023 APPOINTMENT LAB 10 MIN 04/08/2023 APPOINTMENT LAB 10 MIN 04/08/2023 APPOINTMENT TREATMENT 1 HR 04/08/2023 APPOINTMENT OV 20 MIN 03/18/2023 APPOINTMENT LAB 10 MIN 03/18/2023 APPOINTMENT TREATMENT 1 HR 03/18/2023 APPOINTMENT OV 30 MIN 02/25/2023 APPOINTMENT LAB 10 MIN 02/25/2023 APPOINTMENT TREATMENT 1 HR 02/25/2023 APPOINTMENT OV 30 MIN 02/04/2023 APPOINTMENT LAB 10 MIN 02/04/2023 APPOINTMENT TREATMENT 1 HR 02/04/2023 APPOINTMENT OV 20 MIN 02/01/2023 APPOINTMENT OUTSIDE TEST 5 M IN 01/14/2023 APPOINTMENT LAB 10 MIN 01/14/2023 APPOINTMENT TREATMENT 1 HR 01/14/2023 APPOINTMENT OV 20 MIN 12/24/2022 APPOINTMENT LAB 10 MIN 12/24/2022 APPOINTMENT TREATMENT 1 HR 12/24/2022 APPOINTMENT OV 30 MIN 12/14/2022 APPOINTMENT LAB 15 MIN 12/07/2022 APPOINTMENT LAB 10 MIN 12/03/2022 APPOINTMENT LAB 10 MIN 12/03/2022 APPOINTMENT TREATMENT 1 HR 12/03/2022 APPOINTMENT OV 20 MIN 11/12/2022 APPOINTMENT TREATMENT 1 HR 11/12/2022 APPOINTMENT TREATMENT 1 HR 11/12/2022 APPOINTMENT OV 30 MIN 11/12/2022 APPOINTMENT LAB 15 MIN 11/11/2022 APPOINTMENT OV 20 MIN 11/11/2022 APPOINTMENT LAB 15 MIN 11/02/2022 APPOINTMENT OUTSIDE TEST 5 M IN 10/28/2022 APPOINTMENT INTERNAL REFERRA L 30 MIN 11/11/2022 LABORDER CMP 11/11/2022 LABORDER TSH w/ reflex to free T4 11/11/2022 LABORDER CBC w/ auto diff 12/03/2022 LABORDER CBC w/ auto diff 12/03/2022 LABORDER TSH w/ reflex to free T4 12/03/2022 LABORDER CMP 12/07/2022 LABORDER iSTAT creatinine panel 12/14/2022 LABORDER iSTAT creatinine panel 12/24/2022 LABORDER TSH w/ reflex to free T4 12/24/2022 LABORDER CMP 12/24/2022 LABORDER CBC w/ auto diff 01/14/2023 LABORDER TSH w/ reflex to free T4 01/14/2023 LABORDER CBC w/ auto diff 01/14/2023 LABORDER CMP 02/01/2023 LABORDER PET/CT scan, sku ll base/mid thigh 02/04/2023 LABORDER CBC w/ auto diff 02/04/2023 LABORDER CMP 02/04/2023 LABORDER TSH w/ reflex to free T4 02/25/2023 LABORDER CMP 02/25/2023 LABORDER CBC w/ auto diff 02/25/2023 LABORDER TSH w/ reflex to free T4 03/18/2023 LABORDER CBC w/ auto diff 03/18/2023 LABORDER TSH w/ reflex to free T4 03/18/2023 LABORDER CMP 04/08/2023 LABORDER CMP 04/08/2023 LABORDER CBC w/ auto diff 04/08/2023 LABORDER TSH w/ reflex to free T4 04/14/2023 LABORDER iSTAT K+ panel 04/21/2023 LABORDER Clostridium diff icile toxin PCR panel 04/29/2023 LABORDER TSH w/ reflex to free T4 04/29/2023 LABORDER CBC w/ auto diff 04/29/2023 LABORDER PET/CT scan, sku ll base/mid thigh 04/29/2023 LABORDER CMP 05/20/2023 LABORDER CBC w/ auto diff 05/20/2023 LABORDER TSH w/ reflex to free T4 05/20/2023 LABORDER CMP 08/09/2023 LABORDER PET/CT scan, sku ll base/mid thigh 08/12/2023 LABORDER TSH w/ reflex to free T4 08/12/2023 LABORDER CMP 08/12/2023 LABORDER CBC w/ auto diff 08/12/2023 LABORDER D-Dimer panel 09/02/2023 LABORDER CMP 09/02/2023 LABORDER TSH w/ reflex to free T4 09/02/2023 LABORDER CBC w/ auto diff 09/23/2023 LABORDER CMP 09/23/2023 LABORDER TSH w/ reflex to free T4 09/23/2023 LABORDER CBC w/ auto diff 10/14/2023 LABORDER CBC w/ auto diff 10/14/2023 LABORDER CMP 10/14/2023 LABORDER TSH w/ reflex to free T4 10/14/2023 LABORDER CBC w/ auto diff 10/14/2023 LABORDER TSH w/ reflex to free T4 10/14/2023 LABORDER CMP 11/04/2023 LABORDER TSH w/ reflex to free T4 11/04/2023 LABORDER CBC w/ auto diff 11/04/2023 LABORDER CMP 11/15/2023 LABORDER PET/CT scan, sku ll base/mid thigh 11/26/2023 LABORDER CMP 11/26/2023 LABORDER TSH w/ reflex to free T4 11/26/2023 LABORDER CBC w/ auto diff 12/02/2023 LABORDER iSTAT Na+/K+/Cl- panel 12/16/2023 LABORDER TSH w/ reflex to free T4 12/16/2023 LABORDER CMP 12/16/2023 LABORDER CBC w/ auto diff 01/06/2024 LABORDER CMP 01/06/2024 LABORDER CBC w/ auto diff 01/06/2024 LABORDER TSH w/ reflex to free T4 01/27/2024 LABORDER CMP 01/27/2024 LABORDER CBC w/ auto diff 01/27/2024 LABORDER TSH w/ reflex to free T4 02/17/2024 LABORDER CMP 02/17/2024 LABORDER TSH w/ reflex to free T4 02/17/2024 LABORDER CBC w/ auto diff 02/17/2024 LABORDER CMP 02/17/2024 LABORDER TSH w/ reflex to free T4 02/17/2024 LABORDER CBC w/ auto diff 02/24/2024 LABORDER CMP 03/03/2024 LABORDER CBC w/ auto diff 03/03/2024 LABORDER TSH w/ reflex to free T4 03/03/2024 LABORDER CMP 03/09/2024 LABORDER PET/CT scan, sku ll base/mid thigh 03/30/2024 LABORDER X-ray ribs 03/30/2024 LABORDER CBC w/ auto diff 03/30/2024 LABORDER CMP 03/30/2024 LABORDER TSH w/ reflex to free T4 04/21/2024 LABORDER TSH w/ reflex to free T4 04/21/2024 LABORDER CMP 04/21/2024 LABORDER CBC w/ auto diff 04/27/2024 LABORDER PET/CT scan, sku ll base/mid thigh 05/11/2024 LABORDER TSH w/ reflex to free T4 05/11/2024 LABORDER CBC w/ auto diff 05/11/2024 LABORDER CMP 06/01/2024 LABORDER CBC w/ auto diff 06/01/2024 LABORDER CMP 06/01/2024 LABORDER TSH w/ reflex to free T4 08/17/2024 LABORDER PET/CT scan, sku ll base/mid thigh 08/24/2024 LABORDER CBC w/ auto diff 08/24/2024 LABORDER TSH w/ reflex to free T4 08/24/2024 LABORDER CMP 09/14/2024 LABORDER CBC w/ auto diff 09/14/2024 LABORDER TSH w/ reflex to free T4 09/14/2024 LABORDER CMP 09/15/2024 LABORDER Protein (dipstic k) panel 09/15/2024 LABORDER Protein/creatini ne ratio, random urine panel 10/13/2024 LABORDER TSH w/ reflex to free T4 10/13/2024 LABORDER CMP 10/13/2024 LABORDER CBC w/ auto diff 10/13/2024 LABORDER Protein/creatini ne ratio, random urine panel 11/20/2024 LABORDER TSH w/ reflex to free T4 11/20/2024 LABORDER Protein/creatini ne ratio, random urine panel 11/20/2024 LABORDER CMP 11/20/2024 LABORDER CBC w/ auto diff 12/20/2024 LABORDER Swallowing Study 12/20/2024 LABORDER CMP 12/20/2024 LABORDER Protein/creatini ne ratio, random urine panel 12/20/2024 LABORDER PET/CT scan, sku ll base/mid thigh 12/20/2024 LABORDER CBC w/ auto diff 01/24/2025 LABORDER Protein (dipstic k) panel 01/24/2025 LABORDER CBC w/ auto diff 01/24/2025 LABORDER TSH w/ reflex to free T4 01/24/2025 LABORDER Protein/creatini ne ratio, random urine panel 01/24/2025 LABORDER CMP Reason for Visit OV 20 MIN Encounters Date Name 10/28/2022 Cancer with lung met astasis 10/28/2022 Chronic kidney disea se 10/28/2022 Liver metastasis 10/28/2022 Oropharyngeal dyspha yanet 10/28/2022 Other group home (cur rent) drug therapy 10/28/2022 Poor appetite 10/28/2022 Renal cell carcinoma (disorder) Immunizations Date Name Route Dose Instructions Refusal Reason Stat us Flu vaccine - Adult Covid-19 vaccine (Pfizer) Patient declined/rejected Not Administered Flu vaccine - Adult Patient declined/rejected Not Administered Covid-19 vaccine (Pfizer) Flu vaccine - Adult Diagnostic Results Date Type Test Units Lower Limit Upper Limit Result Flag Comments Status Ordered By Specimen Source Lab Address 11/11 CBC w/ auto diff WBC K/uL 3.0 8.9 5.0 [facility]AL [facility] [place], [address] [place] [phone] 0 Phone: () - 11/11 CBC w/ auto diff HGB g/dL 12.5 16.6 14.1 FINAL [facility] [place], [address] [place] [phone] 0 Phone: () - 11/11 CBC w/ auto diff PLT K/uL 113.0 364.0 161 FINAL [facility] [place], [address] [place] [phone] 0 Phone: () - 11/11 CBC w/ auto diff Tatyana # (ANC) K/uL 1.6 6.6 2.9 FINAL [facility] [place], [address] [place] [phone] 0 Phone: () - 11/11 CBC w/ auto diff Tatyana % % 43.0 74.0 57.4 FINAL [facility] [place], [address] [place] [phone] 0 Phone: () - 11/11 CBC w/ auto diff IG % % 0.0 0.5 0.2 FINAL [facility] [place], [address] [place] [phone] 0 Phone: () - 11/11 CBC w/ auto diff IG # K/uL 0.0 0.03 0.01 FINAL [facility] [place], [address] [place] [phone] 0 Phone: () - 11/11 CBC w/ auto diff LY % % 14.0 41.0 32.1 FINAL [facility] [place], [address] [place] [phone] 0 Phone: () - 11/11 CBC w/ auto diff MO % % 6.0 15.0 8.7 FINAL [facility] [place], [address] [place] [phone] 0 Phone: () - 11/11 CBC w/ auto diff EO % % 0.0 7.0 1.2 FINAL [facility] [place], [address] [place] [phone] 0 Phone: () - 11/11 CBC w/ auto diff BA % % 0.0 2.0 0.4 FINAL [facility] [place], [address] [place] [phone] 0 Phone: () - 11/11 CBC w/ auto diff LY # K/uL 0.4 3.6 1.6 FINAL [facility] [place], [address] [place] [phone] 0 Phone: () - 11/11 CBC w/ auto diff MO # K/uL 0.2 1.3 0.4 FINAL [facility] [place], [address] [place] [phone] 0 Phone: () - 11/11 CBC w/ auto diff EO # K/uL 0.0 0.6 0.1 FINAL [facility] [place], [address] [place] [phone] 0 Phone: () - 11/11 CBC w/ auto diff BA # K/uL 0.0 0.2 0.0 FINAL [facility] [place], [address] [place] [phone] 0 Phone: () - 11/11 CBC w/ auto diff NRBC % #/100W BC 0.0 0.2 0.0 [facility]AL [facility] [place], [address] [place] [phone] 0 Phone: () - 11/11 CBC w/ auto diff RBC M/uL 4.2 5.6 4.50 FINAL [facility] [place], [address] [place] [phone] 0 Phone: () - 11/11 CBC w/ auto diff HCT % 39.0 49.0 41.2 FINAL [facility] [place], [address] [place] [phone] 0 Phone: () - 11/11 CBC w/ auto diff MCV fL 80.0 104.0 91.6 FINAL [facility] [place], [address] [place] [phone] 0 Phone: () - 11/11 CBC w/ auto diff MCH pg 26.0 35.0 31.3 FINAL [facility] [place], [address] [place] [phone] 0 Phone: () - 11/11 CBC w/ auto diff MCHC g/dL 30.0 35.0 34.2 FINAL [facility] [place], [address] [place] [phone] 0 Phone: () - 11/11 CBC w/ auto diff MPV fL 9.5 13.4 10.6 [facility], [address] [facility] [phone] 0 Phone: () - 11/11 CBC w/ auto diff RDW % 11.3 15.6 13.30 [facility], [address] [facility] [place] [phone] 0 Phone: () - 11/11 TSH w/ refle x to free T4 TSH uIU/ml 0.32 5.0 3.07 Test performed at [facility] on a [employer] Immunoass ay Analyzer that uses an immunoenz ymometric sandwich assay for analysis. Patient testing should not be performed using multiple methodolo gies due to analytica l variation seen between test methodolo gies. FINAL [facility] [address] [place] [phone] Phone: () - 11/11 CMP Album in g/dL 3.2 5.2 4.4 FINAL [facility] [place] [address] [address] [facility] [address] [phone] Phone: () - 11/11 CMP Alkal ine phosp hatas e U/L 46.0 116.0 64 FINAL [facility] [address] [phone] 0 Phone: () - 11/11 CMP ALT/S GPT U/L 7.0 40.0 18 FINAL [facility] [address] [place] [phone] 0 Phone: () - 11/11 CMP AST/S GOT U/L 13.0 40.0 20 FINAL [facility] [place] [address] [place] [phone] 0 Phone: () - 11/11 CMP BUN mg/dL 9.0 23.0 23.0 FINAL [facility] [place] [address] [place] [phone] 0 Phone: () - 11/11 CMP Calci um mg/dL 8.7 10.4 9.3 FINAL [facility] [place] [address] [phone] Phone: () - 11/11 CMP Chlor marissa mmol/L 96.0 114.0 106 FINAL [facility] [place] [address] [phone] 0 Phone: () - 11/11 CMP CO2 mmol/L 20.0 31.0 24 The expected total allowable error for CO2 is 5.6%. We have seen up to 10% differenc e in values if reported at the end of the 96 hour stability window. Please consider the clinical significa nce of a 2.0-2.5 mmol/L lower reported CO2 value if reported at the end of the 96 hour stability window. FINAL [facility] [place] [address] [phone] 0 Phone: () - 11/11 CMP Creat inine mg/dL 0.5 1.2 1.90 High FINAL [facility] [place] [address] [phone] 0 Phone: () - 11/11 CMP GFR estim ate ml/min /1.73m ^2 35.6 Low GFR is calculate d using the CKD-EPI equation. FINAL [facility] [place] [address] [phone] Phone: () - 11/11 CMP Gluco se mg/dL 73.0 126.0 141 High FINAL [facility] [place] [address] [facility] [address] [phone] 0 Phone: () - 11/11 CMP Potas sium mmol/L 3.5 5.1 4.9 FINAL [facility] [address] [phone] Phone: () - 11/11 CMP Sodiu m mmol/L 136.0 145.0 140 FINAL [facility] [address] [phone] Phone: () - 11/11 CMP Bilir ubin, total mg/dL 0.3 1.2 0.5 FINAL [facility] [address] [facility] [address] [phone] Phone: () - 11/11 CMP Total prote in g/dL 5.7 8.2 7.4 FINAL [facility] [place] [address] [facility] [address] [phone] 0 Phone: () - 12/03 TSH w/ refle x to free T4 TSH uIU/ml 0.32 5.0 6.97 High Test performed at [facility] on a [employer] 2000 Immunoass ay Analyzer that uses an immunoenz ymometric sandwich assay for analysis. Patient testing should not be performed using multiple methodolo gies due to analytica l variation seen between test methodolo gies. FINAL [facility] [place] [address] [phone] 0 Phone: () - 12/03 T4, free panel T4, free ng/dL 0.7 1.8 0.74 Test performed at [facility] on a [employer] 2000 Immunoass ay Analyzer that uses an immunoenz ymometric sandwich assay for analysis. Patient testing should not be performed using multiple methodolo gies due to analytica l variation seen between test methodolo gies. FINAL [facility] [place] [address] [phone] 0 Phone: () - 12/03 CMP Album in g/dL 3.2 5.2 4.5 FINAL [facility] [place] [address] [address] [facility] [address] [phone] 0 Phone: () - 12/03 CMP Alkal ine phosp hatas e U/L 46.0 116.0 66 FINAL [facility] [address] [facility] [address] [place] [address] [phone] 0 Phone: () - 12/03 CMP ALT/S GPT U/L 7.0 40.0 14 FINAL [facility] [address] [facility] [address] [facility] [phone] 0 Phone: () - 12/03 CMP AST/S GOT U/L 13.0 40.0 22 FINAL [facility], [address] [facility] [address] [facility] [phone] 0 Phone: () - 12/03 CMP BUN mg/dL 9.0 23.0 29.0 High FINAL [facility] [address] [facility] [address] [facility] [phone] 0 Phone: () - 12/03 CMP Calci um mg/dL 8.7 10.4 9.7 FINAL [facility] [place] [address] [address] [facility] [address] [facility] [phone] 0 Phone: () - 12/03 CMP Chlor marissa mmol/L 96.0 114.0 105 FINAL [facility] [place] [address] [phone] 0 Phone: () - 12/03 CMP CO2 mmol/L 20.0 31.0 24 The expected total allowable error for CO2 is 5.6%. We have seen up to 10% differenc e in values if reported at the end of the 96 hour stability window. Please consider the clinical significa nce of a 2.0-2.5 mmol/L lower reported CO2 value if reported at the end of the 96 hour stability window. FINAL [facility], [facility] [address] [phone] 0 Phone: () - 12/03 CMP Creat inine mg/dL 0.5 1.2 2.04 High FINAL [facility], [address] [facility] [address] [phone] 0 Phone: () - 12/03 CMP GFR estim ate ml/min /1.73m ^2 32.7 Low GFR is calculate d using the CKD-EPI equation. FINAL [facility], [facility] [address] [facility] [address] [facility] [phone] 0 Phone: () - 12/03 CMP Gluco se mg/dL 73.0 126.0 123 FINAL [facility] [place], [address] [facility] [phone] 0 Phone: () - 12/03 CMP Potas sium mmol/L 3.5 5.1 4.8 FINAL [facility], [address] [facility] [phone] 0 Phone: () - 12/03 CMP Sodiu m mmol/L 136.0 145.0 138 FINAL [facility], [address] [facility] [phone] 0 Phone: () - 12/03 CMP Bilir ubin, total mg/dL 0.3 1.2 0.5 FINAL [facility], [address] [facility] [phone] 0 Phone: () - 12/03 CMP Total prote in g/dL 5.7 8.2 7.7 FINAL [facility], [address] [facility] [phone] 0 Phone: () - 12/03 CBC w/ auto diff WBC K/uL 3.0 8.9 4.2 FINAL [facility] [place], [address] [facility] [phone] 0 Phone: () - 12/03 CBC w/ auto diff HGB g/dL 12.5 16.6 14.9 FINAL [facility] [place], [address] [facility] [place] [phone] 0 Phone: () - 12/03 CBC w/ auto diff PLT K/uL 113.0 364.0 138 FINAL [facility] [place], [address] [place] [phone] 0 Phone: () - 12/03 CBC w/ auto diff Tatyana # (ANC) K/uL 1.6 6.6 2.8 FINAL [facility] [place], [address] [place] [phone] 0 Phone: () - 12/03 CBC w/ auto diff Tatyana % % 43.0 74.0 66.0 FINAL [facility] [place], [address] [place] [phone] 0 Phone: () - 12/03 CBC w/ auto diff IG % % 0.0 0.5 0.2 FINAL [facility] [place], [address] [place] [phone] 0 Phone: () - 12/03 CBC w/ auto diff IG # K/uL 0.0 0.03 0.01 FINAL [facility] [place], [address] [place] [phone] 0 Phone: () - 12/03 CBC w/ auto diff LY % % 14.0 41.0 22.9 FINAL [facility] [place], [address] [place] [phone] 0 Phone: () - 12/03 CBC w/ auto diff MO % % 6.0 15.0 8.3 FINAL [facility] [place], [address] [place] [phone] 0 Phone: () - 12/03 CBC w/ auto diff EO % % 0.0 7.0 2.1 FINAL [facility] [place], [address] [place] [phone] 0 Phone: () - 12/03 CBC w/ auto diff BA % % 0.0 2.0 0.5 FINAL [facility] [place], [address] [place] [phone] 0 Phone: () - 12/03 CBC w/ auto diff LY # K/uL 0.4 3.6 1.0 FINAL [facility] [place], [address] [place] [phone] 0 Phone: () - 12/03 CBC w/ auto diff MO # K/uL 0.2 1.3 0.4 FINAL [facility] [place], [address] [place] [phone] 0 Phone: () - 12/03 CBC w/ auto diff EO # K/uL 0.0 0.6 0.1 FINAL [facility] [place], [address] [place] [phone] 0 Phone: () - 12/03 CBC w/ auto diff BA # K/uL 0.0 0.2 0.0 FINAL [facility] [place], [address] [place] [phone] 0 Phone: () - 12/03 CBC w/ auto diff NRBC % #/100W BC 0.0 0.2 0.0 FINAL [facility] [place], [address] [place] [phone] 0 Phone: () - 12/03 CBC w/ auto diff RBC M/uL 4.2 5.6 4.71 FINAL [facility] [place], [address] [place] [phone] 0 Phone: () - 12/03 CBC w/ auto diff HCT % 39.0 49.0 43.8 FINAL [facility] [place], [address] [place] [id number] 0 Phone: () - 12/03 CBC w/ auto diff MCV fL 80.0 104.0 93.0 FINAL [facility] [place], [address] [place] [id number] 0 Phone: () - 12/03 CBC w/ auto diff MCH pg 26.0 35.0 31.6 FINAL [facility] [place], [address] [place] [id number] 0 Phone: () - 12/03 CBC w/ auto diff MCHC g/dL 30.0 35.0 34.0 FINAL [facility] [place], [address] [place] [id number] 0 Phone: () - 12/03 CBC w/ auto diff MPV fL 9.5 13.4 10.6 FINAL [facility] [place], [address] [place] [id number] 0 Phone: () - 12/03 CBC w/ auto diff RDW % 11.3 15.6 13.30 FINAL [facility] [place], [address] [place] [id number] 0 Phone: () - 12/07 iSTAT creat inine panel Creat inine , iSTAT mg/dl 0.6 1.3 1.9 High FINAL [facility] [place], [address] [place] [id number] 0 Phone: () - 12/07 iSTAT creat inine panel GFR estim ate ml/min /1.73m ^2 35.6 Low GFR is calculate d using the CKD-EPI equation. FINAL [facility] [place], [address] [place] [id number] 0 Phone: () - 12/14 iSTAT creat inine panel Creat inine , iSTAT mg/dl 0.6 1.3 2.3 High FINAL [facility] [place], [address] [place] [id number] 0 Phone: () - 12/14 iSTAT creat inine panel GFR estim ate ml/min /1.73m ^2 28.3 Low GFR is calculate d using the CKD-EPI equation. FINAL [facility] [place], [address] [place] [id number] 0 Phone: () - 12/24 CBC w/ auto diff WBC K/uL 3.0 8.9 3.7 FINAL [facility] [place], [address] [place] [id number] 0 Phone: () - 12/24 CBC w/ auto diff HGB g/dL 12.5 16.6 13.7 FINAL [facility] [place], [address] [place] [id number] 0 Phone: () - 12/24 CBC w/ auto diff PLT K/uL 113.0 364.0 148 FINAL [facility] [place], [address] [place] [id number] 0 Phone: () - 12/24 CBC w/ auto diff Tatyana # (ANC) K/uL 1.6 6.6 2.7 FINAL [facility] [place], [address] [place] [id number] 0 Phone: () - 12/24 CBC w/ auto diff Tatyana % % 43.0 74.0 73.4 FINAL [facility] [place], [address] [place] [id number] 0 Phone: () - 12/24 CBC w/ auto diff IG % % 0.0 0.5 0.3 FINAL [facility] [place], [address] [place] [id number] 0 Phone: () - 12/24 CBC w/ auto diff IG # K/uL 0.0 0.03 0.01 FINAL [facility] [place], [address] [place] [id number] 0 Phone: () - 12/24 CBC w/ auto diff LY % % 14.0 41.0 18.6 FINAL [facility] [place], [address] [place] [id number] 0 Phone: () - 12/24 CBC w/ auto diff MO % % 6.0 15.0 6.6 FINAL [facility] [place], [address] [place] [id number] 0 Phone: () - 12/24 CBC w/ auto diff EO % % 0.0 7.0 0.8 FINAL [facility] [place], [address] [place] [id number] 0 Phone: () - 12/24 CBC w/ auto diff BA % % 0.0 2.0 0.3 FINAL [facility] [place], [address] [place] [id number] 0 Phone: () - 12/24 CBC w/ auto diff LY # K/uL 0.4 3.6 0.7 FINAL [facility] [place], [address] [place] [id number] 0 Phone: () - 12/24 CBC w/ auto diff MO # K/uL 0.2 1.3 0.2 FINAL [facility] [place], [address] [place] [id number] 0 Phone: () - 12/24 CBC w/ auto diff EO # K/uL 0.0 0.6 0.0 FINAL [facility] [place], [address] [place] [id number] 0 Phone: () - 12/24 CBC w/ auto diff BA # K/uL 0.0 0.2 0.0 FINAL [facility] [place], [address] [place] [id number] 0 Phone: () - 12/24 CBC w/ auto diff NRBC % #/100W BC 0.0 0.2 0.0 FINAL [facility] [place], [address] [place] [id number] 0 Phone: () - 12/24 CBC w/ auto diff RBC M/uL 4.2 5.6 4.30 FINAL [facility] [place], [address] [place] [id number] 0 Phone: () - 12/24 CBC w/ auto diff HCT % 39.0 49.0 40.5 FINAL [facility] [place], [address] [place] [id number] 0 Phone: () - 12/24 CBC w/ auto diff MCV fL 80.0 104.0 94.2 FINAL [facility] [place], [address] [place] [id number] 0 Phone: () - 12/24 CBC w/ auto diff MCH pg 26.0 35.0 31.9 FINAL [facility] [place], [address] [place] [id number] 0 Phone: () - 12/24 CBC w/ auto diff MCHC g/dL 30.0 35.0 33.8 FINAL [facility] [place], [address] [place] [id number] 0 Phone: () - 12/24 CBC w/ auto diff MPV fL 9.5 13.4 10.6 FINAL [facility] [place], [address] [place] [id number] 0 Phone: () - 12/24 CBC w/ auto diff RDW % 11.3 15.6 13.40 FINAL [facility] [place], [address] [place] [id number] 0 Phone: () - 12/24 CMP Album in g/dL 3.2 5.2 4.1 FINAL [facility] [place], [address] [place] [id number] 0 Phone: () - 12/24 CMP Alkal ine phosp hatas e U/L 46.0 116.0 57 FINAL [facility], [address] [facility] 100 [facility] [id number] 0 Phone: () - 12/24 CMP ALT/S GPT U/L 7.0 40.0 18 FINAL [facility] [address] [facility] 100 [facility] [id number] 0 Phone: () - 12/24 CMP AST/S GOT U/L 13.0 40.0 18 FINAL [facility] [place] [address] [address] [facility] 100 [facility] [id number] 0 Phone: () - 12/24 CMP BUN mg/dL 9.0 23.0 21.0 FINAL [facility] [place] [address] [address] [facility] [address] [id number] 0 Phone: () - 12/24 CMP Calci um mg/dL 8.7 10.4 9.4 FINAL [facility] [place] [address] [address] [facility] 100 [facility] [id number] 0 Phone: () - 12/24 CMP Chlor marissa mmol/L 96.0 114.0 108 FINAL [facility], [address] [facility] [address] [id number] 0 Phone: () - 12/24 CMP CO2 mmol/L 20.0 31.0 23 The expected total allowable error for CO2 is 5.6%. We have seen up to 10% differenc e in values if reported at the end of the 96 hour stability window. Please consider the clinical significa nce of a 2.0-2.5 mmol/L lower reported CO2 value if reported at the end of the 96 hour stability window. FINAL [facility], [facility] [address] [facility] [address] [facility] [id number] 0 Phone: () - 12/24 CMP Creat inine mg/dL 0.5 1.2 1.46 High FINAL [facility]io [facility], [facility] [address] [facility] [address] [id number] 0 Phone: () - 12/24 CMP GFR estim ate ml/min /1.73m ^2 48.8 Low GFR is calculate d using the CKD-EPI equation. FINAL [facility] [place] [address] [id number] 0 Phone: () - 12/24 CMP Gluco se mg/dL 73.0 126.0 166 High FINAL [facility] [place] [address] [id number] 0 Phone: () - 12/24 CMP Potas sium mmol/L 3.5 5.1 4.6 FINAL [facility] [place] [address] [id number] 0 Phone: () - 12/24 CMP Sodiu m mmol/L 136.0 145.0 141 FINAL [facility] [place] [address] [id number] 0 Phone: () - 12/24 CMP Bilir ubin, total mg/dL 0.3 1.2 0.4 FINAL [facility] [place] [address] [id number] 0 Phone: () - 12/24 CMP Total prote in g/dL 5.7 8.2 7.1 FINAL [facility] [place] [address] [id number] 0 Phone: () - 12/24 TSH w/ refle x to free T4 TSH uIU/ml 0.32 5.0 1.81 Test performed at [facility] on a [employer] 2000 Immunoass ay Analyzer that uses an immunoenz ymometric sandwich assay for analysis. Patient testing should not be performed using multiple kevin rowe due to analytica l variation seen between test kevin rowe. FINAL [facility] [place] [address] [id number] 0 Phone: () - 01/14 CBC w/ auto diff WBC K/uL 3.0 8.9 4.8 FINAL Mary Jane [facility], [address] [place] [id number] 0 Phone: () - 01/14 CBC w/ auto diff HGB g/dL 12.5 16.6 13.7 FINAL [facility] [place], [address] [place] [id number] 0 Phone: () - 01/14 CBC w/ auto diff PLT K/uL 113.0 364.0 140 FINAL Mary Jane [facility] [place], [address] [place] [id number] 0 Phone: () - 01/14 CBC w/ auto diff Tatyana # (ANC) K/uL 1.6 6.6 3.1 FINAL Mary Jane [facility] [place], [address] [place] [id number] 0 Phone: () - 01/14 CBC w/ auto diff Tatyana % % 43.0 74.0 64.5 FINAL [facility] [place], [address] [place] [id number] 0 Phone: () - 01/14 CBC w/ auto diff IG % % 0.0 0.5 0.4 FINAL [facility] [place], [address] [place] [id number] 0 Phone: () - 01/14 CBC w/ auto diff IG # K/uL 0.0 0.03 0.02 FINAL Mary Jane [facility] [place], [address] [place] [id number] 0 Phone: () - 01/14 CBC w/ auto diff LY % % 14.0 41.0 24.1 FINAL Mary Jane [facility] [place], [address] [place] [id number] 0 Phone: () - 01/14 CBC w/ auto diff MO % % 6.0 15.0 9.6 FINAL Mary Jane [facility] [place], [address] [place] [id number] 0 Phone: () - 01/14 CBC w/ auto diff EO % % 0.0 7.0 1.0 FINAL [facility] [place], [address] [place] [id number] 0 Phone: () - 01/14 CBC w/ auto diff BA % % 0.0 2.0 0.4 FINAL [facility] [place], [address] [place] [id number] 0 Phone: () - 01/14 CBC w/ auto diff LY # K/uL 0.4 3.6 1.2 FINAL [facility] [place], [address] [place] [id number] 0 Phone: () - 01/14 CBC w/ auto diff MO # K/uL 0.2 1.3 0.5 FINAL [facility] [place], [address] [place] [id number] 0 Phone: () - 01/14 CBC w/ auto diff EO # K/uL 0.0 0.6 0.1 FINAL [facility] [place], [address] [place] [id number] 0 Phone: () - 01/14 CBC w/ auto diff BA # K/uL 0.0 0.2 0.0 FINAL [facility] [place], [address] [place] [id number] 0 Phone: () - 01/14 CBC w/ auto diff NRBC % #/100W BC 0.0 0.2 0.0 FINAL Mary Jane [facility] [place], [address] [place] [id number] 0 Phone: () - 01/14 CBC w/ auto diff RBC M/uL 4.2 5.6 4.25 FINAL [facility] [place], [address] [facility] [address] [place] [id number] 0 Phone: () - 01/14 CBC w/ auto diff HCT % 39.0 49.0 40.5 FINAL [facility] [place], [address] [facility] [address] [place] [id number] 0 Phone: () - 01/14 CBC w/ auto diff MCV fL 80.0 104.0 95.3 FINAL [facility] [place], [address] [place] [address] d [address] [place] [id number] 0 Phone: () - 01/14 CBC w/ auto diff MCH pg 26.0 35.0 32.2 FINAL [facility] [place], [address] [facility] [address] [place] [id number] 0 Phone: () - 01/14 CBC w/ auto diff MCHC g/dL 30.0 35.0 33.8 FINAL Mary Jane [facility] [place], [address] [facility] [address] [place] [id number] 0 Phone: () - 01/14 CBC w/ auto diff MPV fL 9.5 13.4 10.4 FINAL Mary Jane Coron[facility]ero [facility] [place], [address] [facility] [address] [place] [id number] 0 Phone: () - 01/14 CBC w/ auto diff RDW % 11.3 15.6 13.70 FINAL Mary [facility] [place], [address] [place] [address] d [address] [place] [id number] 0 Phone: () - 01/14 CMP Album in g/dL 3.2 5.2 4.0 FINAL Mary Jane Ko [facility] [place], [address] [facility] [id number] 0 Phone: () - 01/14 CMP Alkal ine phosp hatas e U/L 46.0 116.0 57 FINAL Mary Jane Ko [facility], [address] [facility] [address] [facility] [id number] 0 Phone: () - 01/14 CMP ALT/S GPT U/L 7.0 40.0 19 FINAL Mary Jane Ko [place] [address] [address] [facility] [address] [id number] 0 Phone: () - 01/14 CMP AST/S GOT U/L 13.0 40.0 17 FINAL [place] [address] [address] [facility] [address] [id number] 0 Phone: () - 01/14 CMP BUN mg/dL 9.0 23.0 21.0 FINAL Mary Jane Ko [place] [address] [id number] 0 Phone: () - 01/14 CMP Calci um mg/dL 8.7 10.4 9.2 FINAL [place] [address] [address] [facility] [address] [id number] 0 Phone: () - 01/14 CMP Chlor marissa mmol/L 96.0 114.0 104 FINAL [place] [address] [id number] 0 Phone: () - 01/14 CMP CO2 mmol/L 20.0 31.0 22 The expected total allowable error for CO2 is 5.6%. We have seen up to 10% differenc e in values if reported at the end of the 96 hour stability window. Please consider the clinical significa nce of a 2.0-2.5 mmol/L lower reported CO2 value if reported at the end of the 96 hour stability window. [facility] [address] [facility] [address] [place] [id number] 0 Phone: () - 01/14 CMP Creat inine mg/dL 0.5 1.2 1.71 High FINAL [place] [address] [id number] 0 Phone: () - 01/14 CMP GFR estim ate ml/min /1.73m ^2 40.3 Low GFR is calculate d using the CKD-EPI equation. FINAL Mary Jane Ko [place] [address] [id number] 0 Phone: () - 01/14 CMP Gluco se mg/dL 73.0 126.0 119 FINAL Mary Jane Ko [address] [id number] 0 Phone: () - 01/14 CMP Potas sium mmol/L 3.5 5.1 4.8 FINAL Mary Jane Ko [address] [id number] 0 Phone: () - 01/14 CMP Sodiu m mmol/L 136.0 145.0 140 FINAL Mary Jane Ko [place] [address] [id number] 0 Phone: () - 01/14 CMP Bilir ubin, total mg/dL 0.3 1.2 0.4 FINAL Mary Jane Ko [place] [address] [id number] 0 Phone: () - 01/14 CMP Total prote in g/dL 5.7 8.2 7.0 FINAL Mary Janejass Ko [address] [id number] 0 Phone: () - 01/14 TSH w/ refle x to free T4 TSH uIU/ml 0.32 5.0 4.77 Test performed at [facility] on a [employer] Immunoass ay Analyzer that uses an immunoenz ymometric sandwich assay for analysis. Patient testing should not be performed using multiple methodgénesis rowe due to analytica l variation seen between test methodgénesis rowe. FINAL Mary Jane Ko [address] [id number] 0 Phone: () - 02/04 CBC w/ auto diff IG # K/uL 0.0 0.03 0.02 FINAL [facility] [place], [address] [place] [id number] 0 Phone: () - 02/04 CBC w/ auto diff LY % % 14.0 41.0 19.2 FINAL [facility] [place], [address] [place] [id number] 0 Phone: () - 02/04 CBC w/ auto diff MO % % 6.0 15.0 7.9 FINAL [facility] [place], [address] [place] [id number] 0 Phone: () - 02/04 CBC w/ auto diff EO % % 0.0 7.0 3.6 FINAL [facility] [place], [address] [place] [id number] 0 Phone: () - 02/04 CBC w/ auto diff BA % % 0.0 2.0 0.7 FINAL [facility] [place], [address] [place] [id number] 0 Phone: () - 02/04 CBC w/ auto diff LY # K/uL 0.4 3.6 0.9 FINAL [facility] [place], [address] [place] [id number] 0 Phone: () - 02/04 CBC w/ auto diff MO # K/uL 0.2 1.3 0.4 FINAL [facility] [place], [address] [place] [id number] 0 Phone: () - 02/04 CBC w/ auto diff EO # K/uL 0.0 0.6 0.2 FINAL Mary Jane [facility] [place], [address] [place] [id number] 0 Phone: () - 02/04 CBC w/ auto diff BA # K/uL 0.0 0.2 0.0 FINAL [facility] [place], [address] [facility] [address] [place] [id number] 0 Phone: () - 02/04 CBC w/ auto diff NRBC % #/100W BC 0.0 0.2 0.0 FINAL [facility] [place], [address] [facility] [address] [place] [id number] 0 Phone: () - 02/04 CBC w/ auto diff RBC M/uL 4.2 5.6 4.12 Low FINAL [facility] [place], [address] [facility] [address] [place] [id number] 0 Phone: () - 02/04 CBC w/ auto diff HCT % 39.0 49.0 39.9 FINAL [facility] [place], [address] [place] [address] [address] [place] [id number] 0 Phone: () - 02/04 CBC w/ auto diff MCV fL 80.0 104.0 96.8 FINAL Mary Jane [facility] [place], [address] [facility] [address] [place] [id number] 0 Phone: () - 02/04 CBC w/ auto diff MCH pg 26.0 35.0 33.0 FINAL [facility] [place], [address] [place] [address] d [address] [place] [id number] 0 Phone: () - 02/04 CBC w/ auto diff MCHC g/dL 30.0 35.0 34.1 FINAL [facility] [place], [address] [place] [address] d [address] [place] [id number] 0 Phone: () - 02/04 CBC w/ auto diff MPV fL 9.5 13.4 10.3 FINAL Mary Jane [facility] a [facility] [place], [address] [place] [id number] 0 Phone: () - 02/04 CBC w/ auto diff RDW % 11.3 15.6 13.40 FINAL Mary Jane [facility] [place], [address] [place] [id number] 0 Phone: () - 02/04 CBC w/ auto diff WBC K/uL 3.0 8.9 4.4 FINAL Mary [facility] [place], [address] [place] [id number] 0 Phone: () - 02/04 CBC w/ auto diff HGB g/dL 12.5 16.6 13.6 FINAL Mary Jane [facility] [place], [address] [place] [id number] 0 Phone: () - 02/04 CBC w/ auto diff PLT K/uL 113.0 364.0 151 FINAL Mary Jane [facility] [place], [address] [place] [id number] 0 Phone: () - 02/04 CBC w/ auto diff Tatyana # (ANC) K/uL 1.6 6.6 3.0 FINAL Mary Jane [facility] [place], [address] [place] [id number] 0 Phone: () - 02/04 CBC w/ auto diff Tatyana % % 43.0 74.0 68.1 FINAL Mary [facility] [place], [address] [place] [id number] 0 Phone: () - 02/04 CBC w/ auto diff IG % % 0.0 0.5 0.5 FINAL [facility] [place], [address] [place] [id number] 0 Phone: () - 02/04 TSH w/ refle x to free T4 TSH uIU/ml 0.32 5.0 4.63 Test performed at [facility] on a [employer] 2000 Immunoass ay Analyzer that uses an immunoenz ymometric sandwich assay for analysis. Patient testing should not be performed using multiple kevin rowe due to analytica l variation seen between test kevin rowe. FINAL [place] [address] [id number] 0 Phone: () - 02/04 CMP Album in g/dL 3.2 5.2 4.0 FINAL Mary Janejass Ko [place] [address] [id number] 0 Phone: () - 02/04 CMP ALT/S GPT U/L 7.0 40.0 15 FINAL Mary Jane [place] [address] [id number] 0 Phone: () - 02/04 CMP AST/S GOT U/L 13.0 40.0 19 FINAL [place] [address] [id number] 0 Phone: () - 02/04 CMP BUN mg/dL 9.0 23.0 21.0 FINAL Mary Jane [place] [address] [id number] 0 Phone: () - 02/04 CMP Alkal ine phosp hatas e U/L 46.0 116.0 56 FINAL [place] [address] [id number] 0 Phone: () - 02/04 CMP Calci um mg/dL 8.7 10.4 9.1 FINAL [place] [address] [id number] 0 Phone: () - 02/04 CMP Chlor marissa mmol/L 96.0 114.0 107 FINAL [place] [address] [id number] 0 Phone: () - 02/04 CMP CO2 mmol/L 20.0 31.0 23 The expected total allowable error for CO2 is 5.6%. We have seen up to 10% differenc e in values if reported at the end of the 96 hour stability window. Please consider the clinical significa nce of a 2.0-2.5 mmol/L lower reported CO2 value if reported at the end of the 96 hour stability window. FINAL [facility] [address] [id number] 0 Phone: () - 02/04 CMP Creat inine mg/dL 0.5 1.2 1.71 High FINAL Mary Jane Ko [place] [address] [id number] 0 Phone: () - 02/04 CMP GFR estim ate ml/min /1.73m ^2 40.3 Low GFR is calculate d using the CKD-EPI equation. FINAL [place] [address] [id number] 0 Phone: () - 02/04 CMP Gluco se mg/dL 73.0 126.0 140 High FINAL Mary Jane Ko [facility] [address] [id number] 0 Phone: () - 02/04 CMP Potas sium mmol/L 3.5 5.1 5.1 FINAL Mary Jane Ko [facility] [address] [id number] 0 Phone: () - 02/04 CMP Sodiu m mmol/L 136.0 145.0 139 FINAL Mary Jane Ko [facility] [address] [facility] [address] [id number] 0 Phone: () - 02/04 CMP Bilir ubin, total mg/dL 0.3 1.2 0.5 FINAL Mary Jane Ko [facility] [address] [facility] [address] [id number] 0 Phone: () - 02/04 CMP Total prote in g/dL 5.7 8.2 6.9 FINAL Mary Jane Ko [facility] [address] [id number] 0 Phone: () - 02/25 TSH w/ refle x to free T4 TSH uIU/ml 0.32 5.0 5.06 High Test performed at [facility] on a [employer] 2000 Immunoass ay Analyzer that uses an immunoenz ymometric sandwich assay for analysis. Patient testing should not be performed using multiple methodolo gies due to analytica l variation seen between test methodolo gies. FINAL Gio chapman [place] [address] [address] [facility] [address] [id number] 0 Phone: () - 02/25 T4, free panel T4, free ng/dL 0.7 1.8 0.81 Test performed at [facility] on a [employer] 2000 Immunoass ay Analyzer that uses an immunoenz ymometric sandwich assay for analysis. Patient testing should not be performed using multiple methodolo gies due to analytica l variation seen between test methodolo gies. FINAL Gio chapman [place] [address] [address] [facility] [address] [id number] 0 Phone: () - 02/25 CMP Album in g/dL 3.2 5.2 4.2 FINAL Gio chapman [place] [address] [address] [facility] [address] [id number] 0 Phone: () - 02/25 CMP Alkal ine phosp hatas e U/L 46.0 116.0 58 FINAL Gio chapman [place] [address] [address] [facility] [address] [id number] 0 Phone: () - 02/25 CMP ALT/S GPT U/L 7.0 40.0 15 FINAL Gio chapman [place] [address] [address] [facility] [address] [id number] 0 Phone: () - 02/25 CMP AST/S GOT U/L 13.0 40.0 20 FINAL Gio chapman [place] [address] [address] [facility] [address] [id number] 0 Phone: () - 02/25 CMP BUN mg/dL 9.0 23.0 19.0 FINAL Gio chapman [place] [address] [id number] 0 Phone: () - 02/25 CMP Calci um mg/dL 8.7 10.4 9.3 FINAL Gio chapman [place] [address] [id number] 0 Phone: () - 02/25 CMP Chlor marissa mmol/L 96.0 114.0 108 FINAL Gio chapman [place] [address] [id number] 0 Phone: () - 02/25 CMP CO2 mmol/L 20.0 31.0 22 The expected total allowable error for CO2 is 5.6%. We have seen up to 10% differenc e in values if reported at the end of the 96 hour stability window. Please consider the clinical significa nce of a 2.0-2.5 mmol/L lower reported CO2 value if reported at the end of the 96 hour stability window. FINAL Gio chapman [place] [address] [id number] 0 Phone: () - 02/25 CMP Creat inine mg/dL 0.5 1.2 1.74 High FINAL Gio chapman [place] [address] [id number] 0 Phone: () - 02/25 CMP GFR estim ate ml/min /1.73m ^2 39.5 Low GFR is calculate d using the CKD-EPI equation. FINAL Gio chapman [place] [address] [id number] 0 Phone: () - 02/25 CMP Gluco se mg/dL 73.0 126.0 106 FINAL Gio chapman [place] [address] [phone] 0 Phone: () - 02/25 CMP Potas sium mmol/L 3.5 5.1 4.8 FINAL Gio chapman [place] [address] [id number] 0 Phone: () - 02/25 CMP Sodiu m mmol/L 136.0 145.0 141 FINAL Gio chapman [facility], [address] [place] [id number] 0 Phone: () - 02/25 CMP Bilir ubin, total mg/dL 0.3 1.2 0.5 FINAL Gio chapman [facility] [place], [address] [place] [id number] 0 Phone: () - 02/25 CMP Total prote in g/dL 5.7 8.2 7.1 FINAL Gio chapman [facility] [place], [address] [place] [id number] 0 Phone: () - 02/25 CBC w/ auto diff WBC K/uL 3.0 8.9 4.8 FINAL Gio chapman [facility] [place], [address] [facility] [address] [facility] [place] [phone] 0 Phone: () - 02/25 CBC w/ auto diff HGB g/dL 12.5 16.6 13.6 FINAL Gio chapman [facility] - [place], [address] [facility] [address] [facility] [place] [phone] 0 Phone: () - 02/25 CBC w/ auto diff PLT K/uL 113.0 364.0 140 FINAL Gio chapman [facility] - [place], [address] [facility] [address] [facility] [place] [id number] 0 Phone: () - 02/25 CBC w/ auto diff Tatyana # (ANC) K/uL 1.6 6.6 3.1 FINAL Gio chapman [facility] - [place], [address] [facility] [place] [id number] 0 Phone: () - 02/25 CBC w/ auto diff Tatyana % % 43.0 74.0 65.3 FINAL Gio chapman [facility] - [place], [address] [facility] [place] [id number] 0 Phone: () - 02/25 CBC w/ auto diff IG % % 0.0 0.5 0.2 FINAL Gio chapman [facility] - [place], [facility] [address] [place] [id number] 0 Phone: () - 02/25 CBC w/ auto diff IG # K/uL 0.0 0.03 0.01 FINAL Gio Interiano a [facility] - [place], [address] [place] [id number] 0 Phone: () - 02/25 CBC w/ auto diff LY % % 14.0 41.0 23.6 FINAL Gio Coronadoot a [facility] - [place], [address] [place] [id number] 0 Phone: () - 02/25 CBC w/ auto diff MO % % 6.0 15.0 8.4 FINAL Gio Interiano a [facility] - [place], [address] [facility] [address] [place] [id number] 0 Phone: () - 02/25 CBC w/ auto diff EO % % 0.0 7.0 2.3 FINAL Gio Interiano a [facility] - [place], [address] [facility] [address] [place] [id number] 0 Phone: () - 02/25 CBC w/ auto diff BA % % 0.0 2.0 0.2 FINAL Gio chapman [facility] - [place], [address] [facility] [address] [place] [id number] 0 Phone: () - 02/25 CBC w/ auto diff LY # K/uL 0.4 3.6 1.1 FINAL Gio Interiano a [facility] - [place], [address] [place] [id number] 0 Phone: () - 02/25 CBC w/ auto diff MO # K/uL 0.2 1.3 0.4 FINAL Gio chapman [facility] - [place], [address] [place] [id number] 0 Phone: () - 02/25 CBC w/ auto diff EO # K/uL 0.0 0.6 0.1 FINAL Gio Interiano a [facility] - [place], [address] [place] [id number] 0 Phone: () - 02/25 CBC w/ auto diff BA # K/uL 0.0 0.2 0.0 FINAL Gio chapman [facility] - [place], [address] [place] [id number] 0 Phone: () - 02/25 CBC w/ auto diff NRBC % #/100W BC 0.0 0.2 0.0 FINAL Gio chapman [facility] - [place], [address] [place] [id number] 0 Phone: () - 02/25 CBC w/ auto diff RBC M/uL 4.2 5.6 4.20 FINAL Gio chapman [facility] - [place], [address] [place] [id number] 0 Phone: () - 02/25 CBC w/ auto diff HCT % 39.0 49.0 41.1 FINAL Gio chapman [facility] - [place], [address] [place] [id number] 0 Phone: () - 02/25 CBC w/ auto diff MCV fL 80.0 104.0 97.9 FINAL Gio chapman [facility] - [place], [address] [place] [id number] 0 Phone: () - 02/25 CBC w/ auto diff MCH pg 26.0 35.0 32.4 FINAL Gio chapman [facility] - [place], [address] [place] [id number] 0 Phone: () - 02/25 CBC w/ auto diff MCHC g/dL 30.0 35.0 33.1 FINAL Gio chapman [facility] - [place], [address] [place] [id number] 0 Phone: () - 02/25 CBC w/ auto diff MPV fL 9.5 13.4 10.6 FINAL Gio Coronadoot a [facility] - [place], [address] [facility] [id number] 0 Phone: () - 02/25 CBC w/ auto diff RDW % 11.3 15.6 13.30 FINAL Gio chapman [facility], [address] [facility] [address] [facility] [id number] 0 Phone: () - 03/18 TSH w/ refle x to free T4 TSH uIU/ml 0.32 5.0 5.17 High Test performed at [facility] on a [employer] Immunoass ay Analyzer that uses an immunoenz ymometric sandwich assay for analysis. Patient testing should not be performed using multiple methodgénesis rowe due to analytica l variation seen between test methodgénesis rowe. FINAL Mayr Jane Coronado[place] [address] [id number] 0 Phone: () - 03/18 CMP Album in g/dL 3.2 5.2 4.1 FINAL Mary Jane Coron[place] [address] [id number] 0 Phone: () - 03/18 CMP Alkal ine phosp hatas e U/L 46.0 116.0 70 FINAL Mary Jane Coronado[place] [address] [id number] 0 Phone: () - 03/18 CMP ALT/S GPT U/L 7.0 40.0 16 FINAL Mary Jane Coronado[place] [address] [id number] 0 Phone: () - 03/18 CMP AST/S GOT U/L 13.0 40.0 21 FINAL Mary Jane Coron[place] [address] [id number] 0 Phone: () - 03/18 CMP BUN mg/dL 9.0 23.0 23.0 FINAL Mary Jane Interiano [place] [address] [facility] [address] [place] [address] [id number] 0 Phone: () - 03/18 CMP Calci um mg/dL 8.7 10.4 9.4 FINAL Mary Jane Interiano [place] [address] [id number] 0 Phone: () - 03/18 CMP Chlor marissa mmol/L 96.0 114.0 110 FINAL Mary Jane Coronado[place]ina [place] [address] [id number] 0 Phone: () - 03/18 CMP CO2 mmol/L 20.0 31.0 22 The expected total allowable error for CO2 is 5.6%. We have seen up to 10% differenc e in values if reported at the end of the 96 hour stability window. Please consider the clinical significa nce of a 2.0-2.5 mmol/L lower reported CO2 value if reported at the end of the 96 hour stability window. FINAL Mary Jane Coronado[place] [address] [id number] 0 Phone: () - 03/18 CMP Creat inine mg/dL 0.5 1.2 1.66 High FINAL Mary Jane Ko [place] [address] [id number] 0 Phone: () - 03/18 CMP GFR estim ate ml/min /1.73m ^2 41.8 Low GFR is calculate d using the CKD-EPI equation. FINAL Mary Jane Ko [place] [address] [id number] 0 Phone: () - 03/18 CMP Gluco se mg/dL 73.0 126.0 119 FINAL Mary Jane Ko [place] [address] [id number] 0 Phone: () - 03/18 CMP Potas sium mmol/L 3.5 5.1 4.9 FINAL Mary Jane Ko [place] [address] [id number] 0 Phone: () - 03/18 CMP Sodiu m mmol/L 136.0 145.0 142 FINAL Mary Jane Ko [place] [address] [id number] 0 Phone: () - 03/18 CMP Bilir ubin, total mg/dL 0.3 1.2 0.6 FINAL Mary Jane Coronado a [facility], [address] [facility] [id number] 0 Phone: () - 03/18 CMP Total prote in g/dL 5.7 8.2 7.2 FINAL Mary Jane Interiano a On[facility], [address] [facility] [address] [facility] [id number] 0 Phone: () - 03/18 CBC w/ auto diff WBC K/uL 3.0 8.9 3.7 FINAL Mary Jane Coronado ari [facility] - [place], [address] [place] [address] d [address] [facility] [id number] 0 Phone: () - 03/18 CBC w/ auto diff HGB g/dL 12.5 16.6 13.5 FINAL Mary Jane Coronado ari [facility] - [place], [address] [place] [address] d [address] [place] [facility] [id number] 0 Phone: () - 03/18 CBC w/ auto diff PLT K/uL 113.0 364.0 160 FINAL Mary Jane Coronado ari [facility] - [place], [address] [place] [address] d [address] [place] [facility] [id number] 0 Phone: () - 03/18 CBC w/ auto diff Tatyana # (ANC) K/uL 1.6 6.6 2.4 FINAL Mary Jane Interiano a [facility] - [place], [address] [place] [address] d [address] [place] [facility] [id number] 0 Phone: () - 03/18 CBC w/ auto diff Tatyana % % 43.0 74.0 62.8 FINAL Mary Jane Coronado ari [facility] - [place], [address] [place] [address] d [address] [place] [facility] [id number] 0 Phone: () - 03/18 CBC w/ auto diff IG % % 0.0 0.5 0.0 FINAL Mary Jane Coronado a [facility] - [place], [facility] [address] [place] [id number] 0 Phone: () - 03/18 CBC w/ auto diff IG # K/uL 0.0 0.03 0.00 FINAL Mary Jane chapman [facility] - [place], [address] [facility] [address] [place] [id number] 0 Phone: () - 03/18 CBC w/ auto diff LY % % 14.0 41.0 25.7 FINAL Mary Jane chapman [facility] - [place], [address] [facility] [address] [place] [id number] 0 Phone: () - 03/18 CBC w/ auto diff MO % % 6.0 15.0 9.1 FINAL Mary Jane chapman [facility] - [place], [address] [facility] [address] [place] [id number] 0 Phone: () - 03/18 CBC w/ auto diff EO % % 0.0 7.0 2.1 FINAL Mary Jane chapman [facility] - [place], [address] [facility] [address] [place] [id number] 0 Phone: () - 03/18 CBC w/ auto diff BA % % 0.0 2.0 0.3 FINAL Mary Jane chapman [facility] - [place], [address] [facility] [address] [place] [id number] 0 Phone: () - 03/18 CBC w/ auto diff LY # K/uL 0.4 3.6 1.0 FINAL Mary Jane chapman [facility] - [place], [address] [facility] [address] [place] [id number] 0 Phone: () - 03/18 CBC w/ auto diff MO # K/uL 0.2 1.3 0.3 FINAL Mary Jane chapman [facility] - [place], [address] [facility] [address] [place] [id number] 0 Phone: () - 03/18 CBC w/ auto diff EO # K/uL 0.0 0.6 0.1 FINAL Mary Jane Stefani [place] [facility] - [place], [address] [place] [id number] 0 Phone: () - 03/18 CBC w/ auto diff BA # K/uL 0.0 0.2 0.0 FINAL Mary Jane Interiano a On[facility] - [place], [address] [place] [id number] 0 Phone: () - 03/18 CBC w/ auto diff NRBC % #/100W BC 0.0 0.2 0.0 FINAL Mary Jane Interiano a [facility] - [place], [address] [place] [id number] 0 Phone: () - 03/18 CBC w/ auto diff RBC M/uL 4.2 5.6 4.10 Low FINAL Mary Jane Interiano a [facility] - [place], [address] [place] [id number] 0 Phone: () - 03/18 CBC w/ auto diff HCT % 39.0 49.0 40.6 FINAL Mary Jane chapman [facility] - [place], [address] [place] [id number] 0 Phone: () - 03/18 CBC w/ auto diff MCV fL 80.0 104.0 99.0 FINAL Mary Jane Interiano a [facility] - [place], [address] [place] [id number] 0 Phone: () - 03/18 CBC w/ auto diff MCH pg 26.0 35.0 32.9 FINAL Mary Jane Interiano a [facility] - [place], [address] [place] [id number] 0 Phone: () - 03/18 CBC w/ auto diff MCHC g/dL 30.0 35.0 33.3 FINAL Mary Jane Interiano a [facility] - [place], [address] [place] [id number] 0 Phone: () - 10/26 /2023 CBC w/ auto diff MPV fL 9.5 13.4 10.3 FINAL Mayr Jane Coronadoot a [facility] - [place], [address] [place] [id number] 0 Phone: () - 03/18 CBC w/ auto diff RDW % 11.3 15.6 12.70 FINAL Mary Jane Coronadoot a [facility] - [place], [address] [place] [id number] 0 Phone: () - 03/18 T4, free panel T4, free ng/dL 0.7 1.8 0.88 Test performed at [facility] on a [employer] Immunoass ay Analyzer that uses an immunoenz ymometric sandwich assay for analysis. Patient testing should not be performed using multiple methodolo soledad due to analytica l variation seen between test methodgénesis rowe. FINAL Mary Jane Coronadoot a [facility] - [place], [address] [place] [id number] 0 Phone: () - 04/08 CBC w/ auto diff WBC K/uL 3.0 8.9 5.1 FINAL Mary Jane Coronadoot a [facility] - [place], [address] [facility] [address] [place] [id number] 0 Phone: () - 04/08 CBC w/ auto diff HGB g/dL 12.5 16.6 13.7 FINAL Mary Jane Coronadoot a [facility] - [place], [address] [place] [id number] 0 Phone: () - 04/08 CBC w/ auto diff PLT K/uL 113.0 364.0 167 FINAL Mary Jane Coronadoot a [facility] - [place], [address] [place] [id number] 0 Phone: () - 04/08 CBC w/ auto diff Tatyana # (ANC) K/uL 1.6 6.6 3.1 FINAL Mary Jane Coronadoot a [facility] - [place], [address] [place] [id number] 0 Phone: () - 04/08 CBC w/ auto diff Tatyana % % 43.0 74.0 60.1 FINAL Mary Jane Coronadoot a [facility] - [place], [address] [place] [id number] 0 Phone: () - 04/08 CBC w/ auto diff IG % % 0.0 0.5 0.2 FINAL Mary Jane Coronadoot a On[facility] - [place], [address] [place] [id number] 0 Phone: () - 04/08 CBC w/ auto diff IG # K/uL 0.0 0.03 0.01 FINAL Mary Jane chapman [facility] - [place], [address] [place] [id number] 0 Phone: () - 04/08 CBC w/ auto diff LY % % 14.0 41.0 29.4 FINAL Mary Jane chapman [facility] - [place], [address] [place] [id number] 0 Phone: () - 04/08 CBC w/ auto diff MO % % 6.0 15.0 9.3 FINAL Mary Jane chapman [facility] - [place], [address] [place] [id number] 0 Phone: () - 04/08 CBC w/ auto diff EO % % 0.0 7.0 0.8 FINAL Mary Jane Interiano a Oncology - [place], [address] [place] [id number] 0 Phone: () - 04/08 CBC w/ auto diff BA % % 0.0 2.0 0.2 FINAL Mary Jane Interiano a [facility] - [place], [address] [place] [id number] 0 Phone: () - 04/08 CBC w/ auto diff LY # K/uL 0.4 3.6 1.5 FINAL Mary Jane Interiano a Oncology - [place], [address] [place] [id number] 0 Phone: () - 04/08 CBC w/ auto diff MO # K/uL 0.2 1.3 0.5 FINAL Mary Jane chapman [facility] - [place], [address] [facility] [address] [place] [id number] 0 Phone: () - 04/08 CBC w/ auto diff EO # K/uL 0.0 0.6 0.0 FINAL Mary Jane chapman [facility] - [place], [address] [facility] [address] [place] [id number] 0 Phone: () - 04/08 CBC w/ auto diff BA # K/uL 0.0 0.2 0.0 FINAL Mary Jane chapman [facility]cology - [place], [address] [facility] [address] [place] [id number] 0 Phone: () - 04/08 CBC w/ auto diff NRBC % #/100W BC 0.0 0.2 0.0 FINAL Mary Jane chapman [facility] - [place], [address] [facility] [address] [place] [id number] 0 Phone: () - 04/08 CBC w/ auto diff RBC M/uL 4.2 5.6 4.14 Low FINAL Mary Jane chapman [facility] - [place], [address] [facility] [address] [place] [id number] 0 Phone: () - 04/08 CBC w/ auto diff HCT % 39.0 49.0 41.1 FINAL Mary Jane chapman [facility]cology - [place], [address] [facility] [address] [place] [id number] 0 Phone: () - 04/08 CBC w/ auto diff MCV fL 80.0 104.0 99.3 FINAL Mary Jane chapman [facility]cology - [place], [address] [place] [id number] 0 Phone: () - 04/08 CBC w/ auto diff MCH pg 26.0 35.0 33.1 FINAL Mary Jane Stefani [place] [facility] [place], [address] [place] [id number] 0 Phone: () - 04/08 CBC w/ auto diff MCHC g/dL 30.0 35.0 33.3 FINAL Mary Jane Coronadoot a Oncology - [place], [address] [place] [id number] 0 Phone: () - 04/08 CBC w/ auto diff MPV fL 9.5 13.4 10.7 FINAL Mary Jane Coronadoot a Oncology - [place], [address] [place] [id number] 0 Phone: () - 04/08 CBC w/ auto diff RDW % 11.3 15.6 12.50 FINAL Mary Jane Coronadoot a Oncology - [place], [address] [place] [id number] 0 Phone: () - 04/08 CMP SODIU M AHL mmol/L 136.0 145.0 136 FINAL Mary Jane Ko [facility] [address] [place] 04/08 CMP POTAS SIUM AHL mmol/L 3.5 5.1 5.7 High FINAL Mary Jane Ko [facility] [address] [place] 04/08 CMP CHLOR MARISSA AHL mmol/L 98.0 107.0 102 FINAL Mary Jane Ko [facility] [address] [place] 04/08 CMP CO2,T OTAL AHL mmol/L 22.0 29.0 25 FINAL Mary Jane Ko [facility] [address] [place] 04/08 CMP ANION GAP AHL 5.0 18.0 9 FINAL Mary Jane Ko [facility] [address] [place] 04/08 CMP GLUCO SE AHL mg/dL 70.0 99.0 124 High FINAL Mary Jane Ko [facility] [address] 04/08 CMP CALCI UM AHL mg/dL 8.8 10.2 9.5 FINAL Mary Jane Ko [facility] [address] [place] [address] 04/08 CMP BUN AHL mg/dL 8.0 23.0 29 High FINAL Mary Jane Ko [facility] [address] [place] [address] 04/08 CMP CREAT ININE AHL mg/dL 0.7 1.2 1.65 High FINAL Mary Jane Ko [facility] [address] [place] [address] 04/08 CMP BUN/C REAT RATIO AHL 10.0 20.0 18 FINAL Mary Jane [address] 04/08 CMP EGFR CHEM AHL mL/min /1.73m 2 42 Low As of 2, eGFR is calculate d by the CKD-EPI creatinin e equation without race adjustmen t. ?eGFR can be influence d by muscle mass, exercise, and diet. ?The reported eGFR is an estimatio n only and is only applicabl e if the renal function is stable. FINAL Mary Jane Ko [address] 04/08 CMP ALBUM IN AHL g/dL 4.0 4.9 4.2 FINAL Mary Jane Stefani [address] 04/08 CMP PROTE IN,TO LEE AHL g/dL 6.0 8.0 7.0 FINAL Mary Jane Ko [address] 04/08 CMP BILIR UBIN, TOTAL AHL mg/dL 0.0 1.2 0.4 FINAL Mary Jane Ko [address] 04/08 CMP ALK PHOSP HATAS E AHL IU/L 40.0 129.0 85 FINAL Mary Jane Ko [facility] [address] [place] [address] 04/08 CMP ALT (SGPT ) AHL IU/L 10.0 50.0 25 FINAL Mary Jane Ko [facility] [address] 04/08 CMP AST (SGOT ) AHL IU/L 10.0 50.0 33 FINAL Mary Jane Ko Liliane [facility] [address] 04/08 TSH w/ refle x to free T4 TSH uIU/ml 0.32 5.0 2.52 Test performed at [facility] on a [employer] Immunoass ay Analyzer that uses an immunoenz ymometric sandwich assay for analysis. Patient testing should not be performed using multiple methodolo gies due to analytica l variation seen between test methodolo gies. FINAL Mary Jane Interiano [facility], [address] [facility] [address] [place] [address] [phone] 0 Phone: () - 04/14 iSTAT K+ panel Potas sium, iSTAT mmol/L 3.5 4.9 4.9 Reference range adjusted 0 with implement ation of I-Stat 8+ cartridge . [facility]AL [facility], [address] [facility] [address] [facility] [id number] 0 Phone: () - 04/29 TSH w/ refle x to free T4 TSH uIU/ml 0.32 5.0 0.62 Test performed at [facility] on a [employer] 2000 Immunoass ay Analyzer that uses an immunoenz ymometric sandwich assay for analysis. Patient testing should not be performed using multiple methodolo gies due to analytica l variation seen between test methodolo gies. FINAL Mary Jane chapman [facility], [address] [facility] [place] [address] [id number] 0 Phone: () - 04/29 CMP Album in g/dL 3.2 5.2 4.2 FINAL [facility] [address] [facility] [address] [facility] [id number] 0 Phone: () - 04/29 CMP Alkal ine phosp hatas e U/L 46.0 116.0 67 FINAL Mary Jane Interiano [facility], [address] [facility] [id number] 0 Phone: () - 04/29 CMP ALT/S GPT U/L 7.0 40.0 22 FINAL [facility] [address] [facility] [address] [id number] 0 Phone: () - 04/29 CMP AST/S GOT U/L 13.0 40.0 22 FINAL [facility] [address] [facility] [address] [id number] 0 Phone: () - 04/29 CMP BUN mg/dL 9.0 23.0 24.0 High FINAL [place] [address] [id number] 0 Phone: () - 04/29 CMP Calci um mg/dL 8.7 10.4 8.9 FINAL Mary [place] [address] [id number] 0 Phone: () - 04/29 CMP Chlor marissa mmol/L 96.0 114.0 109 FINAL Mary Jane Ko [place] [address] [id number] 0 Phone: () - 04/29 CMP CO2 mmol/L 20.0 31.0 24 The expected total allowable error for CO2 is 5.6%. We have seen up to 10% differenc e in values if reported at the end of the 96 hour stability window. Please consider the clinical significa nce of a 2.0-2.5 mmol/L lower reported CO2 value if reported at the end of the 96 hour stability window. FINAL Mary Jane Interiano [place] [address] [id number] 0 Phone: () - 04/29 CMP Creat inine mg/dL 0.5 1.2 1.55 High FINAL Mary Jane Ko [place] [address] [id number] 0 Phone: () - 04/29 CMP GFR estim ate ml/min /1.73m ^2 45.3 Low GFR is calculate d using the CKD-EPI equation. FINAL Mary Jane Ko [place] [address] [id number] 0 Phone: () - 04/29 CMP Gluco se mg/dL 73.0 126.0 113 FINAL [facility], [address] [facility] [facility] [id number] 0 Phone: () - 04/29 CMP Potas sium mmol/L 3.5 5.1 5.0 FINAL [facility], [address] [facility] [address] [facility] [id number] 0 Phone: () - 04/29 CMP Sodiu m mmol/L 136.0 145.0 141 FINAL [facility], [address] [id number] 0 Phone: () - 04/29 CMP Bilir ubin, total mg/dL 0.3 1.2 0.4 FINAL [facility], [address] [id number] 0 Phone: () - 04/29 CMP Total prote in g/dL 5.7 8.2 6.9 FINAL [facility], [address] [facility] [address] [place] [address] [id number] 0 Phone: () - 04/29 CBC w/ auto diff WBC K/uL 3.0 8.9 5.5 FINAL Mary Jane Coronado ari [facility]cology - [place], [address] [facility] [address] [facility] [id number] 0 Phone: () - 04/29 CBC w/ auto diff HGB g/dL 12.5 16.6 12.8 FINAL [facility] [place], [address] [facility] [id number] 0 Phone: () - 04/29 CBC w/ auto diff PLT K/uL 113.0 364.0 158 FINAL [facility] - [place], [address] [facility] [address] [facility] [id number] 0 Phone: () - 04/29 CBC w/ auto diff Tatyana # (ANC) K/uL 1.6 6.6 3.4 FINAL Mary Jane chapman [facility] - [place], [address] [place] [id number] 0 Phone: () - 04/29 CBC w/ auto diff Tatyana % % 43.0 74.0 61.5 FINAL Mary Jane chapman [facility] - [place], [address] [place] [id number] 0 Phone: () - 04/29 CBC w/ auto diff IG % % 0.0 0.5 0.5 FINAL Mary Jane chapman [facility] - [place], [address] [place] [id number] 0 Phone: () - 04/29 CBC w/ auto diff IG # K/uL 0.0 0.03 0.03 FINAL Mary Jane chapman [facility] - [place], [address] [place] [id number] 0 Phone: () - 04/29 CBC w/ auto diff LY % % 14.0 41.0 23.1 FINAL Mary Jane chapman [facility] - [place], [address] [place] [id number] 0 Phone: () - 04/29 CBC w/ auto diff MO % % 6.0 15.0 9.4 FINAL Mary Jane chapman [facility] - [place], [address] [place] [id number] 0 Phone: () - 04/29 CBC w/ auto diff EO % % 0.0 7.0 5.1 FINAL Mar yJane chapman Oncology - [place], [address] [place] [id number] 0 Phone: () - 04/29 CBC w/ auto diff BA % % 0.0 2.0 0.4 FINAL Mary Jane Inter[facility] - [place], [address] [place] [id number] 0 Phone: () - 04/29 CBC w/ auto diff LY # K/uL 0.4 3.6 1.3 FINAL Mary Jane chapman [facility] - [place], [address] [place] [id number] 0 Phone: () - 04/29 CBC w/ auto diff MO # K/uL 0.2 1.3 0.5 FINAL Mary Jane chapman [facility] - [place], [address] [place] [id number] 0 Phone: () - 04/29 CBC w/ auto diff EO # K/uL 0.0 0.6 0.3 FINAL Mary Jane chapman [facility] - [place], [address] [place] [id number] 0 Phone: () - 04/29 CBC w/ auto diff BA # K/uL 0.0 0.2 0.0 FINAL Mary Jane chapman [facility] [place], [address] [place] [id number] 0 Phone: () - 04/29 CBC w/ auto diff NRBC % #/100W BC 0.0 0.2 0.0 FINAL Mary Jane chapman [facility] - [place], [address] [facility] [address] [place] [id number] 0 Phone: () - 04/29 CBC w/ auto diff RBC M/uL 4.2 5.6 3.80 Low FINAL Mary Jane chapman [facility] - [place], [address] [place] [id number] 0 Phone: () - 04/29 CBC w/ auto diff HCT % 39.0 49.0 37.7 Low FINAL Mary Jane chapman [facility] - [place], [address] [place] [id number] 0 Phone: () - 04/29 CBC w/ auto diff MCV fL 80.0 104.0 99.2 FINAL Mary Jane [facility]ani [place] [facility] [place], [address] [place] [id number] 0 Phone: () - 04/29 CBC w/ auto diff MCH pg 26.0 35.0 33.7 FINAL Mary Jane Coronadoot [facility] - [place], [address] [place] [id number] 0 Phone: () - 04/29 CBC w/ auto diff MCHC g/dL 30.0 35.0 34.0 FINAL Mary Jane [facility] - [place], [address] [place] [id number] 0 Phone: () - 04/29 CBC w/ auto diff MPV fL 9.5 13.4 10.2 FINAL Mary Jane [facility] - [place], [address] [place] [id number] 0 Phone: () - 04/29 CBC w/ auto diff RDW % 11.3 15.6 12.50 FINAL Mary Jane [facility] - [place], [address] [place] [id number] 0 Phone: () - 05/20 CBC w/ auto diff WBC K/uL 3.0 8.9 5.4 FINAL Gio Coronadoot ari [facility] - [place], [address] [place] [id number] 0 Phone: () - 05/20 CBC w/ auto diff HGB g/dL 12.5 16.6 12.7 FINAL Gio [facility] - [place], [address] [place] [id number] 0 Phone: () - 05/20 CBC w/ auto diff PLT K/uL 113.0 364.0 150 FINAL Gio Coronadoot [facility] - [place], [address] [place] [id number] 0 Phone: () - 05/20 CBC w/ auto diff Tatyana # (ANC) K/uL 1.6 6.6 3.3 FINAL Gio [facility] - [place], [address] [place] [id number] 0 Phone: () - 05/20 CBC w/ auto diff Tatyana % % 43.0 74.0 61.2 FINAL Gio [facility] - [place], [address] [place] [id number] 0 Phone: () - 05/20 CBC w/ auto diff IG % % 0.0 0.5 0.2 FINAL Gio [facility] - [place], [address] [place] [id number] 0 Phone: () - 05/20 CBC w/ auto diff IG # K/uL 0.0 0.03 0.01 FINAL Gio [facility] - [place], [address] [place] [id number] 0 Phone: () - 05/20 CBC w/ auto diff LY % % 14.0 41.0 22.1 FINAL Gio [facility] - [place], [address] [place] [id number] 0 Phone: () - 05/20 CBC w/ auto diff MO % % 6.0 15.0 9.6 FINAL Gio [facility] - [place], [address] [place] [id number] 0 Phone: () - 05/20 CBC w/ auto diff EO % % 0.0 7.0 6.5 FINAL Gio [facility] - [place], [address] [place] [id number] 0 Phone: () - 05/20 CBC w/ auto diff BA % % 0.0 2.0 0.4 FINAL Gio [facility] - [place], [address] [place] [id number] 0 Phone: () - 05/20 CBC w/ auto diff LY # K/uL 0.4 3.6 1.2 FINAL Gio [facility] - [place], [address] [place] [id number] 0 Phone: () - 05/20 CBC w/ auto diff MO # K/uL 0.2 1.3 0.5 FINAL Gio [facility] - [place], [address] [place] [id number] 0 Phone: () - 05/20 CBC w/ auto diff EO # K/uL 0.0 0.6 0.4 FINAL Gio [facility] - [place], [address] [place] [id number] 0 Phone: () - 05/20 CBC w/ auto diff BA # K/uL 0.0 0.2 0.0 FINAL Gio [facility] - [place], [address] [place] [id number] 0 Phone: () - 05/20 CBC w/ auto diff NRBC % #/100W BC 0.0 0.2 0.0 FINAL Gio [facility] - [place], [address] [place] [id number] 0 Phone: () - 05/20 CBC w/ auto diff RBC M/uL 4.2 5.6 3.83 Low FINAL Gio [facility] - [place], [address] [place] [id number] 0 Phone: () - 05/20 CBC w/ auto diff HCT % 39.0 49.0 38.0 Low FINAL Gio [facility] - [place], [address] [place] [id number] 0 Phone: () - 05/20 CBC w/ auto diff MCV fL 80.0 104.0 99.2 FINAL Gio [facility] - [place], [address] [place] [id number] 0 Phone: () - 05/20 CBC w/ auto diff MCH pg 26.0 35.0 33.2 FINAL Gio chapman [facility] - [place], [address] [place] [id number] 0 Phone: () - 05/20 CBC w/ auto diff MCHC g/dL 30.0 35.0 33.4 FINAL Gio chapman [facility] - [place], [address] [place] [id number] 0 Phone: () - 05/20 CBC w/ auto diff MPV fL 9.5 13.4 10.4 FINAL Gio chapman [facility] - [place], [address] [place] [id number] 0 Phone: () - 05/20 CBC w/ auto diff RDW % 11.3 15.6 12.40 FINAL Gio chapman [facility] - [place], [address] [facility] [address] [facility] [place] [id number] 0 Phone: () - 05/20 TSH w/ refle x to free T4 TSH uIU/ml 0.32 5.0 0.56 Test performed at [facility] on a [employer] Immuno[employer] ay Analyzer that uses an immunoenz ymometric sandwich assay for analysis. Patient testing should not be performed using multiple methodolo gies due to analytica l variation seen between test methodolo gies. FINAL Gio chapman [facility], [facility] [address] [place] [address] [id number] 0 Phone: () - 05/20 CMP Album in g/dL 3.2 5.2 4.1 FINAL Gio chapman [facility], [address] [place] [address] [id number] 0 Phone: () - 05/20 CMP Alkal ine phosp hatas e U/L 46.0 116.0 64 FINAL Gio chapman [facility], [address] [place] [address] [place] [id number] 0 Phone: () - 05/20 CMP ALT/S GPT U/L 7.0 40.0 24 FINAL Gio chapman [facility], [address] [facility] [id number] 0 Phone: () - 05/20 CMP AST/S GOT U/L 13.0 40.0 21 FINAL Gio chapman [facility] [address] [facility] 100 [facility] [id number] 0 Phone: () - 05/20 CMP BUN mg/dL 9.0 23.0 22.0 FINAL Gio chapman [place] [address] [address] [facility] [address] [id number] 0 Phone: () - 05/20 CMP Calci um mg/dL 8.7 10.4 8.8 FINAL Gio chapman [place] [address] [id number] 0 Phone: () - 05/20 CMP Chlor marissa mmol/L 96.0 114.0 111 FINAL Gio chapman [place] [address] [id number] 0 Phone: () - 05/20 CMP CO2 mmol/L 20.0 31.0 23 The expected total allowable error for CO2 is 5.6%. We have seen up to 10% differenc e in values if reported at the end of the 96 hour stability window. Please consider the clinical significa nce of a 2.0-2.5 mmol/L lower reported CO2 value if reported at the end of the 96 hour stability window. FINAL Gio chapman [facility], [facility] [address] [id number] 0 Phone: () - 05/20 CMP Creat inine mg/dL 0.5 1.2 1.41 High FINAL Gio chapman [place] [address] [id number] 0 Phone: () - 05/20 CMP GFR estim ate ml/min /1.73m ^2 50.7 Low GFR is calculate d using the CKD-EPI equation. FINAL Gio chapman [facility], [facility] [address] [id number] 0 Phone: () - 05/20 CMP Gluco se mg/dL 73.0 126.0 148 High FINAL iGo chapman [facility] [place], [address] [facility] [id number] 0 Phone: () - 05/20 CMP Potas sium mmol/L 3.5 5.1 4.4 FINAL Gio chapman [facility], [address] [facility] [address] [facility] [id number] 0 Phone: () - 05/20 CMP Sodiu m mmol/L 136.0 145.0 142 FINAL Gio chapman [facility], [address] [facility] [id number] 0 Phone: () - 05/20 CMP Bilir ubin, total mg/dL 0.3 1.2 0.4 FINAL Gio chapman [facility], [address] [facility] [address] [facility] [id number] 0 Phone: () - 05/20 CMP Total prote in g/dL 5.7 8.2 6.8 FINAL Gio chapman [facility], [address] [facility] [address] [facility] [id number] 0 Phone: () - 08/11 CBC w/ auto diff Tatyana # (ANC) K/uL 1.6 6.6 3.7 FINAL Mary Jane Ko [facility] - [place] , [address] [place] [address] [address] [facility] [id number] 0 Phone: () - 08/11 CBC w/ auto diff Tatyana % % 43.0 74.0 64.9 FINAL Mary Jane Ko [facility] - [place] , [address] [place] [address] d [address] [facility] [id number] 0 Phone: () - 08/11 CBC w/ auto diff IG % % 0.0 0.5 0.4 FINAL Mary Jane Ko [facility] - [place] , [address] [place] [address] d [address] [facility] [id number] 0 Phone: () - 08/11 CBC w/ auto diff IG # K/uL 0.0 0.03 0.02 FINAL Mary Jane Ko [facility] - [place] , [address] [place] [address] d [address] [facility] [id number] 0 Phone: () - 08/11 CBC w/ auto diff LY % % 14.0 41.0 24.3 FINAL Mary Jane chapman [facility] - [place], [address] [facility] [address] [place] [id number] 0 Phone: () - 08/11 CBC w/ auto diff MO % % 6.0 15.0 8.1 FINAL Mary Jane chapman [facility] - [place], [address] [facility] [address] [place] [id number] 0 Phone: () - 08/11 CBC w/ auto diff EO % % 0.0 7.0 1.9 FINAL Mary Jane chapman [facility] - [place], [address] [facility] [address] [place] [id number] 0 Phone: () - 08/11 CBC w/ auto diff BA % % 0.0 2.0 0.4 FINAL Mary Jane chapman [facility] - [place], [address] [facility] [address] [place] [id number] 0 Phone: () - 08/11 CBC w/ auto diff LY # K/uL 0.4 3.6 1.4 FINAL Mary Jane chapman [facility] - [place], [address] [facility] [address] [place] [id number] 0 Phone: () - 08/11 CBC w/ auto diff MO # K/uL 0.2 1.3 0.5 FINAL Mary Jane chapman [facility] - [place], [address] [facility] [address] [place] [id number] 0 Phone: () - 08/11 CBC w/ auto diff EO # K/uL 0.0 0.6 0.1 FINAL Mary Jane chapman [facility] - [place], [address] [facility] [address] [place] [id number] 0 Phone: () - 08/11 CBC w/ auto diff BA # K/uL 0.0 0.2 0.0 FINAL Mary Jane [facility] [place] [facility] [place], [address] [place] [id number] 0 Phone: () - 08/11 CBC w/ auto diff NRBC % #/100W BC 0.0 0.2 0.0 FINAL Mary Jane [facility] - [place], [address] [place] [id number] 0 Phone: () - 08/11 CBC w/ auto diff RBC M/uL 4.2 5.6 4.14 Low FINAL Mary Jane [facility] - [place], [address] [place] [id number] 0 Phone: () - 08/11 CBC w/ auto diff HCT % 39.0 49.0 41.0 FINAL Mayr Jane [facility] - [place], [address] [place] [id number] 0 Phone: () - 08/11 CBC w/ auto diff MCV fL 80.0 104.0 99.0 FINAL Mary Jane Inter[facility] - [place], [address] [place] [id number] 0 Phone: () - 08/11 CBC w/ auto diff MCH pg 26.0 35.0 32.6 FINAL Mary Jane [facility] - [place], [address] [place] [id number] 0 Phone: () - 08/11 CBC w/ auto diff MCHC g/dL 30.0 35.0 32.9 FINAL Mary Jane [facility] - [place], [address] [place] [id number] 0 Phone: () - 08/11 CBC w/ auto diff MPV fL 9.5 13.4 10.4 FINAL Mary Jane [facility] - [place], [address] [place] [id number] 0 Phone: () - 08/11 CBC w/ auto diff RDW % 11.3 15.6 12.80 FINAL Mary Jane [facility]sen [place] [facility] [place], [address] [place] [id number] 0 Phone: () - 08/11 CBC w/ auto diff WBC K/uL 3.0 8.9 5.7 FINAL Mary Jane Ko [place] [facility] [place], [address] [place] [id number] 0 Phone: () - 08/11 CBC w/ auto diff HGB g/dL 12.5 16.6 13.5 FINAL Mary Jane Ko [place] [facility] [place], [address] [place] [id number] 0 Phone: () - 08/11 CBC w/ auto diff PLT K/uL 113.0 364.0 146 FINAL Mary Jane Stefani [facility] - [place], [address] [place] [id number] 0 Phone: () - 08/11 TSH w/ refle x to free T4 TSHR- v mIU/ml 0.47 4.68 2.08 FINAL Mary Jane Ko * [place] [facility], [address] [facility] [id number] 0 08/11 CMP Album in g/dL 3.5 5.0 4.1 FINAL Mary Jane Ko * [place] [facility], [address] [facility] [id number] 0 08/11 CMP Alkal ine phosp hatas e U/L 36.0 125.0 71 FINAL Mary Jane Ko * [place] [facility], [address] [facility] [id number] 0 08/11 CMP ALT/S GPT U/L 0.0 49.0 25 FINAL Mary Jane Ko * [place] [facility] [place], [address] [facility] [id number] 0 08/11 CMP AST/S GOT U/L 17.0 59.0 35 FINAL [facility], [address] [id number] 0 08/11 CMP BUN mg/dL 9.0 20.0 19.0 FINAL [facility], [address] [id number] 0 08/11 CMP Calci um mg/dL 8.4 10.2 8.7 FINAL Mary Jane Elizabeth [facility] [id number] 0 08/11 CMP Chlor marissa mmol/L 96.0 107.0 106 FINAL [facility], [address] [id number] 0 08/11 CMP CO2 mmol/L 22.0 30.0 25 The expected total allowable error for CO2 is 5.6%. We have seen up to 10% differenc e in values if reported at the end of the 96 hour stability window. Please consider the clinical significa nce of a 2.0-2.5 mmol/L lower reported CO2 value if reported at the end of the 96 hour stability window. FINAL [facility], [address] [id number] 0 08/11 CMP Creat inine mg/dL 0.66 1.25 1.50 High FINAL [facility], [facility] [id number] 0 08/11 CMP GFR estim ate ml/min /1.73m ^2 47.0 Low GFR is calculate d using the CKD-EPI equation. FINAL Mary Jane Ko * [facility]0 [facility] [address] [place] [address] [id number] 0 08/11 CMP Gluco se mg/dL 74.0 100.0 147 High FINAL Mary Jane Ko * [facility] [address] [id number] 0 08/11 CMP Potas sium mmol/L 3.5 5.1 4.4 FINAL Mary Jane Ko * [facility], [address] [place] [address] [id number] 0 08/11 CMP Sodiu m mmol/L 137.0 145.0 139 FINAL Mary Jane Ko * [facility] [address] [id number] 0 08/11 CMP Bilir ubin, total mg/dL 0.2 1.3 0.5 FINAL Mary Jane Elizabeth [facility], [facility] [address] [id number] 0 08/11 CMP Total prote in g/dL 6.3 8.2 7.4 FINAL Mary Jane Elizabeth [facility] [address] [id number] 0 08/11 D-Dim er panel D-DIM ER, QUANT ITATI VE mcg/mL FEU 0.19 The D-Dimer test is used frequentl y to excludean acute PE or DVT. In patients with a low tomoderat e clinical risk assessmen t and a D-Dimerre sult <0.50 mcg/mL FEU, the likelihoo d of a PEor DVT is very low. However, a thromboem boliceven t should not be excluded solely on the basisof the D-Dimer level. Increased levels of D-Dimerar e associate d with a PE, DVT, DIC, malignanc ies,infla mmation, sepsis, surgery, trauma, ,and advancing patient age.[Kumar 2006 11:295(2) :199-207] For additiona l informati on, please refer to:[email or web address]/faq/ [email or web address](Th is link is being provided for informati onal/educ ational purposes only) FINAL Gio Lopez * [facility] [address] [place] [id number] 4 09/01 CBC w/ auto diff WBC K/uL 3.0 8.9 5.7 FINAL Gio chapman [facility] - [place], [address] [place] [id number] 0 Phone: () - 09/01 CBC w/ auto diff HGB g/dL 12.5 16.6 12.8 FINAL Gio chapman [facility] - [place], [address] [place] [id number] 0 Phone: () - 09/01 CBC w/ auto diff PLT K/uL 113.0 364.0 148 FINAL Gio chapman [facility] - [place], [address] [place] [id number] 0 Phone: () - 09/01 CBC w/ auto diff Tatyana # (ANC) K/uL 1.6 6.6 3.5 FINAL Gio chapman [facility] - [place], [address] [place] [id number] 0 Phone: () - 09/01 CBC w/ auto diff Tatyana % % 43.0 74.0 60.7 FINAL Gio chapman [facility] - [place], [address] [place] [id number] 0 Phone: () - 09/01 CBC w/ auto diff IG % % 0.0 0.5 0.4 FINAL Gio Lopez [place] [facility] [place], [address] [place] [id number] 0 Phone: () - 09/01 CBC w/ auto diff IG # K/uL 0.0 0.03 0.02 FINAL Gio Coronadoot a [facility] - [place], [address] [place] [id number] 0 Phone: () - 09/01 CBC w/ auto diff LY % % 14.0 41.0 24.9 FINAL Gio [facility] - [place], [address] [place] [id number] 0 Phone: () - 09/01 CBC w/ auto diff MO % % 6.0 15.0 9.5 FINAL Gio Coronadoot a [facility] - [place], [address] [place] [id number] 0 Phone: () - 09/01 CBC w/ auto diff EO % % 0.0 7.0 4.1 FINAL Gio Coronadoot a [facility] - [place], [address] [place] [id number] 0 Phone: () - 09/01 CBC w/ auto diff BA % % 0.0 2.0 0.4 FINAL Gio Coronadoot a [facility] - [place], [address] [place] [id number] 0 Phone: () - 09/01 CBC w/ auto diff LY # K/uL 0.4 3.6 1.4 FINAL Gio Coronadoot a [facility] - [place], [address] [place] [id number] 0 Phone: () - 09/01 CBC w/ auto diff MO # K/uL 0.2 1.3 0.5 FINAL Gio Coronadoot a [facility] - [place], [address] [place] [id number] 0 Phone: () - 09/01 CBC w/ auto diff EO # K/uL 0.0 0.6 0.2 FINAL Gio Coronadoot a [facility] - [place], [address] [place] [id number] 0 Phone: () - 09/01 CBC w/ auto diff BA # K/uL 0.0 0.2 0.0 FINAL Gio [facility] - [place], [address] [place] [id number] 0 Phone: () - 09/01 CBC w/ auto diff NRBC % #/100W BC 0.0 0.2 0.0 FINAL Gio Coronadoot a [facility] - [place], [address] [place] [id number] 0 Phone: () - 09/01 CBC w/ auto diff RBC M/uL 4.2 5.6 3.93 Low FINAL Gio Coronadoot a [facility] - [place], [address] [place] [id number] 0 Phone: () - 09/01 CBC w/ auto diff HCT % 39.0 49.0 38.5 Low FINAL Gio Coronadoot a [facility] - [place], [address] [place] [id number] 0 Phone: () - 09/01 CBC w/ auto diff MCV fL 80.0 104.0 98.0 FINAL Gio Coronadoot a [facility] - [place], [address] [place] [id number] 0 Phone: () - 09/01 CBC w/ auto diff MCH pg 26.0 35.0 32.6 FINAL Gio Coronadoot a [facility] - [place], [address] [place] [id number] 0 Phone: () - 09/01 CBC w/ auto diff MCHC g/dL 30.0 35.0 33.2 FINAL Gio Coronadoot a [facility] - [place], [address] [place] [id number] 0 Phone: () - 09/01 CBC w/ auto diff MPV fL 9.5 13.4 10.7 FINAL Gio Lopez [place] [facility] [place], [address] [place] [id number] 0 Phone: () - 09/01 CBC w/ auto diff RDW % 11.3 15.6 13.10 FINAL Gio Lopez [place] [facility] [place], [address] [place] [id number] 0 Phone: () - 09/01 CMP Gluco se mg/dL 74.0 100.0 161 High FINAL Gio Lopez * [place] [facility] [place], [address] [facility] [id number] 09/01 CMP Potas sium mmol/L 3.5 5.1 4.7 FINAL Gio Lopez * [place] [facility], [address] [facility] [id number] 0 09/01 CMP Sodiu m mmol/L 137.0 145.0 138 FINAL Gio Lopez * [place] [facility] [place], [address] [facility] [id number] 0 09/01 CMP Bilir ubin, total mg/dL 0.2 1.3 0.5 FINAL Gio Loepz * [place] [facility], [address] [facility] [id number] 0 09/01 CMP Total prote in g/dL 6.3 8.2 6.9 FINAL Gio Lopez * [place] [facility] [place], [address] [facility] [id number] 0 09/01 CMP Album in g/dL 3.5 5.0 4.0 FINAL Gio Lopez * [place] [facility], [address] [facility] [id number] 0 09/01 CMP Alkal ine phosp hatas e U/L 36.0 125.0 75 FINAL Gio Lopez * [facility], [address] [id number] 09/01 CMP ALT/S GPT U/L 0.0 49.0 32 FINAL Gio Lopez * [facility], [address] [id number] 0 09/01 CMP AST/S GOT U/L 17.0 59.0 41 FINAL Gio Lopez * [facility], [address] [id number] 0 09/01 CMP BUN mg/dL 9.0 20.0 25.0 High FINAL Gio Elizabeth [facility], [address] [id number] 0 09/01 CMP Calci um mg/dL 8.4 10.2 8.5 FINAL Gio Elizabeth [facility], [address] [id number] 0 09/01 CMP Chlor marissa mmol/L 96.0 107.0 106 FINAL Gio Lopez * [facility], [address] [id number] 0 09/01 CMP CO2 mmol/L 22.0 30.0 21 Low The expected total allowable error for CO2 is 5.6%. We have seen up to 10% differenc e in values if reported at the end of the 96 hour stability window. Please consider the clinical significa nce of a 2.0-2.5 mmol/L lower reported CO2 value if reported at the end of the 96 hour stability window. FINAL Gio Lopez * [facility], [address] [id number] 0 09/01 CMP Creat inine mg/dL 0.66 1.25 1.50 High FINAL Gio Coronadoot a [facility], [address] [facility] [id number] 0 09/01 CMP GFR estim ate ml/min /1.73m ^2 47.0 Low GFR is calculate d using the CKD-EPI equation. FINAL Gio Coronadoot a [facility], [address] [facility] [id number] 0 09/01 TSH w/ refle x to free T4 TSHR- v mIU/ml 0.47 4.68 2.12 FINAL Gio Coronadoot a [facility], [address] [facility] [id number] 0 09/22 CBC w/ auto diff MCV fL 80.0 104.0 97.8 FINAL Mary Jane Interiano a [facility] [place], [address] [place] [id number] 0 Phone: () - 09/22 CBC w/ auto diff MCH pg 26.0 35.0 32.3 FINAL Mary Jane Interiano [facility] - [place], [address] [place] [id number] 0 Phone: () - 09/22 CBC w/ auto diff MPV fL 9.5 13.4 10.3 FINAL Mary Jane Interiano a [facility] - [place], [address] [place] [id number] 0 Phone: () - 09/22 CBC w/ auto diff RDW % 11.3 15.6 12.70 FINAL Mary Jane Coronadoot a [facility] - [place], [address] [place] [id number] 0 Phone: () - 09/22 CBC w/ auto diff WBC K/uL 3.0 8.9 5.4 FINAL Mary Jane chapman [facility] - [place], [address] [place] [id number] 0 Phone: () - 09/22 CBC w/ auto diff HGB g/dL 12.5 16.6 13.0 FINAL Mary Jane chapman [facility] - [place], [address] [place] [id number] 0 Phone: () - 09/22 CBC w/ auto diff PLT K/uL 113.0 364.0 159 FINAL Mary Jane Interiano [facility] - [place], [address] [place] [id number] 0 Phone: () - 09/22 CBC w/ auto diff Tatyana # (ANC) K/uL 1.6 6.6 3.3 FINAL Mary Jane Interiano [facility] - [place], [address] [place] [id number] 0 Phone: () - 09/22 CBC w/ auto diff Tatyana % % 43.0 74.0 60.0 FINAL Mary Jane chapman [facility] - [place], [address] [place] [id number] 0 Phone: () - 09/22 CBC w/ auto diff IG % % 0.0 0.5 0.2 FINAL Mary Jane chapman [facility] - [place], [address] [place] [id number] 0 Phone: () - 09/22 CBC w/ auto diff IG # K/uL 0.0 0.03 0.01 FINAL Mary Jane Interiano [facility] - [place], [address] [place] [id number] 0 Phone: () - 09/22 CBC w/ auto diff LY % % 14.0 41.0 28.4 FINAL Mary Jane Inter[facility] - [place], [address] [place] [id number] 0 Phone: () - 09/22 CBC w/ auto diff MO % % 6.0 15.0 9.4 FINAL Mary Jane hcapman [facility] - [place], [address] [facility] [address] [place] [id number] 0 Phone: () - 09/22 CBC w/ auto diff EO % % 0.0 7.0 1.8 FINAL Mary Jane chapman [facility] - [place], [address] [facility] [address] [place] [id number] 0 Phone: () - 09/22 CBC w/ auto diff BA % % 0.0 2.0 0.2 FINAL Mary Jane chapman [facility] - [place], [address] [facility] [address] [place] [id number] 0 Phone: () - 09/22 CBC w/ auto diff LY # K/uL 0.4 3.6 1.5 FINAL Mary Jane chapman [facility] - [place], [address] [facility] [address] [place] [id number] 0 Phone: () - 09/22 CBC w/ auto diff MO # K/uL 0.2 1.3 0.5 FINAL Mary Jane chapman [facility] - [place], [address] [facility] [address] [place] [id number] 0 Phone: () - 09/22 CBC w/ auto diff EO # K/uL 0.0 0.6 0.1 FINAL Mary Jane chapman [facility] - [place], [address] [facility] [address] [place] [id number] 0 Phone: () - 09/22 CBC w/ auto diff BA # K/uL 0.0 0.2 0.0 FINAL Mary Jane chapman [facility] - [place], [address] [facility] [facility] [address] [place] [id number] 0 Phone: () - 09/22 CBC w/ auto diff NRBC % #/100W BC 0.0 0.2 0.0 FINAL Mary Jane chapman [facility] - [place], [address] [place] [id number] 0 Phone: () - 09/22 CBC w/ auto diff RBC M/uL 4.2 5.6 4.03 Low FINAL Mary Jane Ko [place] [facility] [place], [address] [place] [id number] 0 Phone: () - 09/22 CBC w/ auto diff HCT % 39.0 49.0 39.4 FINAL Mary Jane Coronadoot a [facility] - [place], [address] [place] [id number] 0 Phone: () - 09/22 CBC w/ auto diff MCHC g/dL 30.0 35.0 33.0 FINAL Mary Jane Coronadoot a [facility] - [place], [address] [place] [id number] 0 Phone: () - 09/22 CMP Album in g/dL 3.5 5.0 4.2 FINAL Mary Jane Ko * [place] [facility] [place], [address] [facility] [id number] 0 09/22 CMP Alkal ine phosp hatas e U/L 36.0 125.0 70 FINAL Mary Janejass Ko * [place] [facility] [place], [address] [facility] [id number] 0 09/22 CMP ALT/S GPT U/L 0.0 49.0 24 FINAL Mary Janejass Ko * [place] [facility] [place], [address] [facility] [place] [id number] 0 09/22 CMP AST/S GOT U/L 17.0 59.0 39 FINAL Mary Jane Ko * [place] [facility] [place], [address] [facility] [id number] 0 09/22 CMP BUN mg/dL 9.0 20.0 27.0 High FINAL Mary Jane chapman [facility], [facility] [address] [id number] 0 09/22 CMP Calci um mg/dL 8.4 10.2 8.9 FINAL Mary Jane Coronado ari [facility], [facility]0 [facility] [address] [id number] 0 09/22 CMP Chlor marissa mmol/L 96.0 107.0 103 FINAL Mary [place] [id number] [facility] [address] [id number] 0 09/22 CMP CO2 mmol/L 22.0 30.0 24 The expected total allowable error for CO2 is 5.6%. We have seen up to 10% differenc e in values if reported at the end of the 96 hour stability window. Please consider the clinical significa nce of a 2.0-2.5 mmol/L lower reported CO2 value if reported at the end of the 96 hour stability window. FINAL Mary Jane chapman [facility], [address] [place] [address] [address] [id number] 0 09/22 CMP Creat inine mg/dL 0.66 1.25 1.60 High FINAL Mary Jane Interiano [facility], [address] [place] [address] [address] [id number] 0 09/22 CMP GFR estim ate ml/min /1.73m ^2 43.5 Low GFR is calculate d using the CKD-EPI equation. FINAL Mary Jane Coronado ari [facility], [address] [place] [address] [address] [id number] 0 09/22 CMP Gluco se mg/dL 74.0 100.0 138 High FINAL Mary Jane Coronado ari [facility], [address] [facility] [id number] 0 09/22 CMP Potas sium mmol/L 3.5 5.1 4.8 FINAL Mary Jane Ko * [facility], [address] [facility] [id number] 0 09/22 CMP Sodiu m mmol/L 137.0 145.0 137 FINAL Mary Jane Ko * [facility], [address] [facility] [id number] 0 09/22 CMP Bilir ubin, total mg/dL 0.2 1.3 0.5 FINAL Mary Jane Ko * [facility], [address] [id number] 0 09/22 CMP Total prote in g/dL 6.3 8.2 7.2 FINAL Mary Jane Stefani * [facility], [address] [id number] 0 09/22 TSH w/ refle x to free T4 TSHR- v mIU/ml 0.47 4.68 1.01 FINAL Mary Jane Ko * [facility], [address] [facility] [id number] 0 10/13 TSH w/ refle x to free T4 TSHR- v mIU/ml 0.47 4.68 1.27 FINAL Gio Lopez * [facility], [address] [id number] 0 10/13 CMP Album in g/dL 3.5 5.0 4.1 FINAL Gio Lopez * [facility], [address] [facility] [id number] 0 10/13 CMP Alkal ine phosp hatas e U/L 36.0 125.0 69 [facility] [address] [facility] [address] [id number] 0 10/13 CMP ALT/S GPT U/L 0.0 49.0 22 FINAL Gio Elizabeth [facility], [address] [facility] [address] [id number] 0 10/13 CMP AST/S GOT U/L 17.0 59.0 32 FINAL Gio Elizabeth [facility], [facility] [address] [id number] 0 10/13 CMP BUN mg/dL 9.0 20.0 31.0 High [facility], [address] [id number] 0 10/13 CMP Calci um mg/dL 8.4 10.2 8.0 Low FINAL Gio Elizabeth [facility], [facility] [address] [id number] 0 10/13 CMP Chlor marissa mmol/L 96.0 107.0 110 High [facility], [address] [id number] 0 10/13 CMP CO2 mmol/L 22.0 30.0 17 Low The expected total allowable error for CO2 is 5.6%. We have seen up to 10% differenc e in values if reported at the end of the 96 hour stability window. Please consider the clinical significa nce of a 2.0-2.5 mmol/L lower reported CO2 value if reported at the end of the 96 hour stability window. FINAL Gio Lopez * [facility] [address] [facility] [id number] 0 10/13 CMP Creat inine mg/dL 0.66 1.25 1.60 High FINAL Gio Lopez * [facility], [address] [facility] [id number] 0 10/13 CMP GFR estim ate ml/min /1.73m ^2 43.5 Low GFR is calculate d using the CKD-EPI equation. FINAL Gio Lopez * [facility], [address] [facility] [id number] 0 10/13 CMP Gluco se mg/dL 74.0 100.0 137 High FINAL Gio Lopez * [facility], [address] [id number] 0 10/13 CMP Sodiu m mmol/L 137.0 145.0 136 Low FINAL Gio John * [facility], [address] [facility] [id number] 0 10/13 CMP Potas sium mmol/L 3.5 5.1 5.0 FINAL Gio John * [facility], [address] [facility] [id number] 0 10/13 CMP Bilir ubin, total mg/dL 0.2 1.3 0.5 FINAL Gio John * [facility], [address] [facility] [id number] 0 10/13 CMP Total prote in g/dL 6.3 8.2 7.0 FINAL Gio John * [facility], [address] [facility] [id number] 0 10/13 CBC w/ auto diff WBC K/uL 3.0 8.9 5.4 FINAL Gio Coronadoot a [facility] - [place], [address] [place] [id number] 0 Phone: () - 10/13 CBC w/ auto diff HGB g/dL 12.5 16.6 12.9 FINAL Gio Coronadoot a [facility] - [place], [address] [place] [id number] 0 Phone: () - 10/13 CBC w/ auto diff PLT K/uL 113.0 364.0 161 FINAL Gio Coronadoot a [facility] - [place], [address] [place] [id number] 0 Phone: () - 10/13 CBC w/ auto diff Tatyana # (ANC) K/uL 1.6 6.6 3.3 FINAL Gio Coron[facility]oot [facility] - [place], [address] [place] [id number] 0 Phone: () - 10/13 CBC w/ auto diff Tatyana % % 43.0 74.0 61.8 FINAL Gio Coronadoot ari [facility] - [place], [address] [place] [id number] 0 Phone: () - 10/13 CBC w/ auto diff IG % % 0.0 0.5 0.2 FINAL Gio Coronadoot ari [facility] - [place], [address] [place] [id number] 0 Phone: () - 10/13 CBC w/ auto diff IG # K/uL 0.0 0.03 0.01 FINAL Gio Coron[facility]oot [facility] - [place], [address] [place] [id number] 0 Phone: () - 10/13 CBC w/ auto diff LY % % 14.0 41.0 28.0 FINAL Gio Coron[facility]oot [facility] - [place], [address] [place] [id number] 0 Phone: () - 10/13 CBC w/ auto diff MO % % 6.0 15.0 7.4 FINAL Gio Coron[facility]oot [facility] - [place], [address] [place] [id number] 0 Phone: () - 10/13 CBC w/ auto diff EO % % 0.0 7.0 2.4 FINAL Gio Coron[facility]oot [facility] - [place], [address] [place] [id number] 0 Phone: () - 10/13 CBC w/ auto diff BA % % 0.0 2.0 0.2 FINAL Gio [facility] - [place], [address] [place] [id number] 0 Phone: () - 10/13 CBC w/ auto diff LY # K/uL 0.4 3.6 1.5 FINAL Gio Coron[facility]oot [facility] - [place], [address] [place] [id number] 0 Phone: () - 10/13 CBC w/ auto diff MO # K/uL 0.2 1.3 0.4 FINAL Gio Coronadoot ari [facility] - [place], [address] [place] [id number] 0 Phone: () - 10/13 CBC w/ auto diff EO # K/uL 0.0 0.6 0.1 FINAL Gio Coronadoot [facility] - [place], [address] [place] [id number] 0 Phone: () - 10/13 CBC w/ auto diff BA # K/uL 0.0 0.2 0.0 FINAL Gio Coron[facility]oot [facility] - [place], [address] [place] [id number] 0 Phone: () - 10/13 CBC w/ auto diff NRBC % #/100W BC 0.0 0.2 0.0 FINAL Gio Coron[facility]oot [facility] - [place], [address] [place] [id number] 0 Phone: () - 10/13 CBC w/ auto diff RBC M/uL 4.2 5.6 3.93 Low FINAL Gio Coron[facility]oot a [facility] - [place], [address] [place] [id number] 0 Phone: () - 10/13 CBC w/ auto diff HCT % 39.0 49.0 38.2 Low FINAL Gio Coronadoot a [facility] - [place], [address] [place] [id number] 0 Phone: () - 10/13 CBC w/ auto diff MCV fL 80.0 104.0 97.2 FINAL Gio Coron[facility]oot a [facility] - [place], [address] [place] [id number] 0 Phone: () - 10/13 CBC w/ auto diff MCH pg 26.0 35.0 32.8 FINAL Gio Coron[facility]oot [facility] - [place], [address] [place] [id number] 0 Phone: () - 10/13 CBC w/ auto diff MCHC g/dL 30.0 35.0 33.8 FINAL Gio Coron[facility]oot a [facility] - [place], [address] [place] [id number] 0 Phone: () - 10/13 CBC w/ auto diff MPV fL 9.5 13.4 10.3 FINAL Gio Coron[facility]oot [facility] - [place], [address] [place] [id number] 0 Phone: () - 10/13 CBC w/ auto diff RDW % 11.3 15.6 12.80 FINAL Gio [facility] - [place], [address] [place] [id number] 0 Phone: () - 11/03 TSH w/ refle x to free T4 TSHR- v mIU/ml 0.47 4.68 0.58 FINAL Gio Lopez * [place] [facility], [address] [facility] [place] [id number] 0 11/03 CMP Album in g/dL 3.5 5.0 3.9 FINAL Gio Lopez * [facility], [address] [facility] [address] [id number] 0 11/03 CMP Alkal ine phosp hatas e U/L 36.0 125.0 68 FINAL Gio Lopez * [facility], [address] [id number] 0 11/03 CMP ALT/S GPT U/L 0.0 49.0 26 FINAL Gio Lopez * [facility], [address] [id number] 0 11/03 CMP AST/S GOT U/L 17.0 59.0 39 FINAL Gio Lopez * [facility], [address] [id number] 0 11/03 CMP BUN mg/dL 9.0 20.0 25.0 High FINAL Gio Lopze * [facility], [facility] [address] [id number] 0 11/03 CMP Calci um mg/dL 8.4 10.2 8.5 FINAL Gio Lopez * [facility], [address] [id number] 0 11/03 CMP Chlor marissa mmol/L 96.0 107.0 108 High FINAL Gio Lopez * [facility], [address] [facility] [address] [id number] 0 11/03 CMP CO2 mmol/L 22.0 30.0 23 The expected total allowable error for CO2 is 5.6%. We have seen up to 10% differenc e in values if reported at the end of the 96 hour stability window. Please consider the clinical significa nce of a 2.0-2.5 mmol/L lower reported CO2 value if reported at the end of the 96 hour stability window. [facility], [address] [facility] [id number] 0 11/03 CMP Creat inine mg/dL 0.66 1.25 1.60 High [facility]AL [facility], [address] [id number] 0 11/03 CMP GFR estim ate ml/min /1.73m ^2 43.5 Low GFR is calculate d using the CKD-EPI equation. [facility], [address] [id number] 0 11/03 CMP Gluco se mg/dL 74.0 100.0 132 High [facility]AL [facility], [address] [id number] 0 11/03 CMP Potas sium mmol/L 3.5 5.1 4.5 [facility]AL [facility], [address] [id number] 0 11/03 CMP Sodiu m mmol/L 137.0 145.0 136 Low FINAL Gio Coronadoot a [facility], [address] [id number] 0 11/03 CMP Bilir ubin, total mg/dL 0.2 1.3 0.5 FINAL Gio Coronadoot [facility], [address] [id number] 0 11/03 CMP Total prote in g/dL 6.3 8.2 6.7 FINAL Gio Lopez * [place] [facility] [place], [address] [facility] [place] [id number] 0 11/03 CBC w/ auto diff WBC K/uL 3.0 8.9 4.8 FINAL Gio Coronadoot a [facility] - [place], [address] [place] [id number] 0 Phone: () - 11/03 CBC w/ auto diff HGB g/dL 12.5 16.6 12.3 Low FINAL Gio Croonadoot a [facility] - [place], [address] [place] [id number] 0 Phone: () - 11/03 CBC w/ auto diff PLT K/uL 113.0 364.0 156 FINAL Gio Coronadoot a [facility] - [place], [address] [place] [id number] 0 Phone: () - 11/03 CBC w/ auto diff Tatyana # (ANC) K/uL 1.6 6.6 2.7 FINAL Gio Coronadoot ari [facility] - [place], [address] [place] [id number] 0 Phone: () - 11/03 CBC w/ auto diff Tatyana % % 43.0 74.0 56.6 FINAL Gio Coronadoot ari [facility] - [place], [address] [place] [id number] 0 Phone: () - 11/03 CBC w/ auto diff IG % % 0.0 0.5 0.4 FINAL Gio Coron[facility]oot [facility] - [place], [address] [place] [id number] 0 Phone: () - 11/03 CBC w/ auto diff IG # K/uL 0.0 0.03 0.02 FINAL Gio Coronadoot [facility] - [place], [address] [place] [id number] 0 Phone: () - 11/03 CBC w/ auto diff LY % % 14.0 41.0 32.4 FINAL Gio Coronadoot a [facility] - [place], [address] [place] [id number] 0 Phone: () - 11/03 CBC w/ auto diff MO % % 6.0 15.0 8.7 FINAL Gio [facility]oot [facility] - [place], [address] [place] [id number] 0 Phone: () - 11/03 CBC w/ auto diff EO % % 0.0 7.0 1.7 FINAL Gio [facility] - [place], [address] [place] [id number] 0 Phone: () - 11/03 CBC w/ auto diff BA % % 0.0 2.0 0.2 FINAL Gio Coron[facility]oot [facility] - [place], [address] [place] [id number] 0 Phone: () - 11/03 CBC w/ auto diff LY # K/uL 0.4 3.6 1.6 FINAL Gio Coronadoot [facility] - [place], [address] [place] [id number] 0 Phone: () - 11/03 CBC w/ auto diff MO # K/uL 0.2 1.3 0.4 FINAL Gio Coron[facility]oot [facility] - [place], [address] [place] [id number] 0 Phone: () - 11/03 CBC w/ auto diff EO # K/uL 0.0 0.6 0.1 FINAL Gio Coronadoot a [facility] - [place], [address] [place] [id number] 0 Phone: () - 11/03 CBC w/ auto diff BA # K/uL 0.0 0.2 0.0 FINAL Gio Coronadoot a [facility] - [place], [address] [place] [id number] 0 Phone: () - 11/03 CBC w/ auto diff NRBC % #/100W BC 0.0 0.2 0.0 FINAL Gio Interiano a [facility] - [place], [address] [place] [id number] 0 Phone: () - 11/03 CBC w/ auto diff RBC M/uL 4.2 5.6 3.78 Low FINAL Gio Coronadoot a [facility] - [place], [address] [place] [id number] 0 Phone: () - 11/03 CBC w/ auto diff HCT % 39.0 49.0 36.8 Low FINAL Gio chapman [facility] - [place], [address] [place] [id number] 0 Phone: () - 11/03 CBC w/ auto diff MCV fL 80.0 104.0 97.4 FINAL Gio chapman [facility] - [place], [address] [place] [id number] 0 Phone: () - 11/03 CBC w/ auto diff MCH pg 26.0 35.0 32.5 FINAL Gio chapman [facility] - [place], [address] [place] [id number] 0 Phone: () - 11/03 CBC w/ auto diff MCHC g/dL 30.0 35.0 33.4 FINAL Gio Interiano a [facility] - [place], [address] [place] [id number] 0 Phone: () - 11/03 CBC w/ auto diff MPV fL 9.5 13.4 10.1 FINAL Gio chapman [facility] - [place], [address] [place] [id number] 0 Phone: () - 11/03 CBC w/ auto diff RDW % 11.3 15.6 12.60 FINAL Gio Coronadoot a [facility] - [place], [address] [place] [id number] 0 Phone: () - 11/25 TSH w/ refle x to free T4 TSHR- v mIU/ml 0.47 4.68 1.53 FINAL Gio Lopez * [facility] [place], [address] [facility] [place] [id number] 0 11/25 CBC w/ auto diff WBC K/uL 3.0 8.9 5.1 FINAL Gio Coronadoot a [facility] - [place], [address] [place] [id number] 0 Phone: () - 11/25 CBC w/ auto diff HGB g/dL 12.5 16.6 13.6 FINAL Gio Coronadoot a [facility] - [place], [address] [place] [id number] 0 Phone: () - 11/25 CBC w/ auto diff PLT K/uL 113.0 364.0 153 FINAL Gio Coronadoot a [facility] - [place], [address] [place] [id number] 0 Phone: () - 11/25 CBC w/ auto diff Tatyana # (ANC) K/uL 1.6 6.6 2.9 FINAL Gio Coron[facility]oot a [facility] - [place], [address] [place] [id number] 0 Phone: () - 11/25 CBC w/ auto diff Tatyana % % 43.0 74.0 55.7 FINAL Gio Coron[facility]oot [facility] - [place], [address] [place] [id number] 0 Phone: () - 11/25 CBC w/ auto diff IG % % 0.0 0.5 0.4 FINAL Gio Coron[facility]oot [facility] - [place], [address] [place] [id number] 0 Phone: () - 11/25 CBC w/ auto diff IG # K/uL 0.0 0.03 0.02 FINAL Gio Coronadoot [facility] - [place], [address] [place] [id number] 0 Phone: () - 11/25 CBC w/ auto diff LY % % 14.0 41.0 32.5 FINAL Gio Coronadoot [facility] - [place], [address] [place] [id number] 0 Phone: () - 11/25 CBC w/ auto diff MO % % 6.0 15.0 9.3 FINAL Gio Coronadoot a [facility] - [place], [address] [place] [id number] 0 Phone: () - 11/25 CBC w/ auto diff EO % % 0.0 7.0 1.9 FINAL Gio Coronadoot [facility] - [place], [address] [place] [id number] 0 Phone: () - 11/25 CBC w/ auto diff BA % % 0.0 2.0 0.2 FINAL Gio Coronadoot [facility] - [place], [address] [place] [phone] [phone] Phone: () - 11/25 CBC w/ auto diff LY # K/uL 0.4 3.6 1.7 [facility]AL [facility] [place], [address] [place] [id number] 0 Phone: () - 11/25 CBC w/ auto diff MO # K/uL 0.2 1.3 0.5 [facility]AL [facility] [place], [address] [place] [phone] 0 Phone: () - 11/25 CBC w/ auto diff EO # K/uL 0.0 0.6 0.1 [facility]AL [facility] - [place], [address] [place] [phone] 0 Phone: () - 11/25 CBC w/ auto diff BA # K/uL 0.0 0.2 0.0 FINAL [facility] - [place], [address] [place] [id number] 0 Phone: () - 11/25 CBC w/ auto diff NRBC % #/100W BC 0.0 0.2 0.0 FINAL Gio Interiano a [facility] - [place], [address] [place] [id number] 0 Phone: () - 11/25 CBC w/ auto diff RBC M/uL 4.2 5.6 4.16 Low FINAL Gio Inter[facility] - [place], [address] [place] [id number] 0 Phone: () - 11/25 CBC w/ auto diff HCT % 39.0 49.0 41.5 FINAL Gio Interiano [facility] - [place], [address] [place] [id number] 0 Phone: () - 11/25 CBC w/ auto diff MCV fL 80.0 104.0 99.8 FINAL [facility] - [place], [address] [place] [phone] 0 Phone: () - 11/25 CBC w/ auto diff MCH pg 26.0 35.0 32.7 FINAL [facility] - [place], [address] [place] [id number] 0 Phone: () - 11/25 CBC w/ auto diff MCHC g/dL 30.0 35.0 32.8 FINAL [facility] - [place], [address] [place] [id number] 0 Phone: () - 11/25 CBC w/ auto diff MPV fL 9.5 13.4 10.4 FINAL [facility] - [place], [address] [place] [id number] 0 Phone: () - 11/25 CBC w/ auto diff RDW % 11.3 15.6 12.70 FINAL [facility] [place] [facility], [address] [facility] [place] [id number] 0 Phone: ( - 11/25 CMP Album in g/dL 3.5 5.0 4.1 FINAL Gio Lopez * [place] [facility], [address] [facility] [id number] 0 11/25 CMP Alkal ine phosp hatas e U/L 36.0 125.0 62 FINAL Gio Lopez * [place] [facility], [address] [facility] [id number] 0 11/25 CMP ALT/S GPT U/L 0.0 49.0 24 FINAL Gio Lopez * [place] [facility], [address] [facility] [id number] 0 11/25 CMP AST/S GOT U/L 17.0 59.0 35 FINAL Gio Lopez * [place] [facility], [address] [facility] [id number] 0 11/25 CMP BUN mg/dL 9.0 20.0 20.0 FINAL Gio Lopez * [place] [facility], [address] [facility] [id number] 0 11/25 CMP Calci um mg/dL 8.4 10.2 9.4 FINAL Gio Lopez * [place] [facility], [address] [facility] [id number] 0 11/25 CMP Chlor marissa mmol/L 96.0 107.0 103 FINAL Gio Lopez * [place] [facility], [address] [facility] [id number] 0 11/25 CMP CO2 mmol/L 22.0 30.0 25 The expected total allowable error for CO2 is 5.6%. We have seen up to 10% differenc e in values if reported at the end of the 96 hour stability window. Please consider the clinical significa nce of a 2.0-2.5 mmol/L lower reported CO2 value if reported at the end of the 96 hour stability window. [facility], [address] [id number] 0 11/25 CMP Creat inine mg/dL 0.66 1.25 1.60 High [facility]AL [facility], [facility] [address] [id number] 0 11/25 CMP GFR estim ate ml/min /1.73m ^2 43.4 Low GFR is calculate d using the CKD-EPI equation. [facility], [address] [id number] 0 11/25 CMP Gluco se mg/dL 74.0 100.0 98 FINAL [facility], [facility] [address] [id number] 0 11/25 CMP Potas sium mmol/L 3.5 5.1 5.7 Critica l torch cutter ry value tasia Costa ninoska High FINAL [facility], [address] [id number] 11/25 CMP Sodiu m mmol/L 137.0 145.0 138 [facility]AL [facility], [address] [id number] 11/25 CMP Bilir ubin, total mg/dL 0.2 1.3 0.5 FINAL [facility], [address] [facility] [id number] 0 11/25 CMP Total prote in g/dL 6.3 8.2 7.2 FINAL Gio Lopez * [place] [facility] [place], [address] [facility] [place] [id number] 0 12/01 iSTAT Na+/K +/Cl- panel Sodiu m, iSTAT mmol/L 138.0 146.0 135 Low Reference range adjusted 0 with implement ation of I-Stat 8+ cartridge . FINAL Mary Jane Coronado a [facility] - [place], [address] [facility] [address] [facility] [id number] 0 Phone: () - 12/01 iSTAT Na+/K +/Cl- panel Potas sium, iSTAT mmol/L 3.5 4.9 4.9 Reference range adjusted 0 with implement ation of I-Stat 8+ cartridge . FINAL Mary Jane Coronado a [facility] - [place], [address] [facility] [address] [facility] [id number] 0 Phone: () - 12/01 iSTAT Na+/K +/Cl- panel Chlor marissa, iSTAT mmol/L 98.0 109.0 104 Reference range adjusted 0 with implement ation of I-Stat 8+ cartridge . FINAL Mary Jane Interiano a [facility] - [place], [address] [facility] [address] [facility] [id number] 0 Phone: () - 12/15 CMP Album in g/dL 3.5 5.0 4.2 FINAL Gio Lopez * [place] [facility] [place], [address] [facility] [id number] 0 12/15 CMP Alkal ine phosp hatas e U/L 36.0 125.0 59 FINAL Gio Lopez * [place] [facility] [place], [address] [facility] [id number] 0 12/15 CMP ALT/S GPT U/L 0.0 49.0 22 FINAL Gio John * [facility], [address] [facility] [address] [id number] 0 12/15 CMP AST/S GOT U/L 17.0 59.0 40 FINAL Gio Lopez * [facility], [address] [facility] [address] [id number] 12/15 CMP BUN mg/dL 9.0 20.0 30.0 High FINAL Gio Lopez * [facility], [address] [facility] [address] [id number] 12/15 CMP Calci um mg/dL 8.4 10.2 8.8 FINAL Gio Lopez * [facility], [address] [facility] [address] [id number] 0 12/15 CMP Chlor marissa mmol/L 96.0 107.0 109 High FINAL Gio John * [facility], [address] [facility] [address] [id number] 12/15 CMP CO2 mmol/L 22.0 30.0 22 The expected total allowable error for CO2 is 5.6%. We have seen up to 10% differenc e in values if reported at the end of the 96 hour stability window. Please consider the clinical significa nce of a 2.0-2.5 mmol/L lower reported CO2 value if reported at the end of the 96 hour stability window. FINAL Gio Lopez * [facility], [address] [facility] [address] [id number] 0 12/15 CMP Creat inine mg/dL 0.66 1.25 1.60 High FINAL Gio Lopez * [facility], [address] [facility] [id number] 0 12/15 CMP GFR estim ate ml/min /1.73m ^2 43.4 Low GFR is calculate d using the CKD-EPI equation. FINAL Gio Lopez * [facility] [facility], [address] [id number] 0 12/15 CMP Gluco se mg/dL 74.0 100.0 131 High FINAL Gio Lopez * [facility], [address] [id number] 0 12/15 CMP Potas sium mmol/L 3.5 5.1 4.5 FINAL Gio Lopez * [facility], [address] [id number] 0 12/15 CMP Sodiu m mmol/L 137.0 145.0 137 FINAL Gio Lopez * [place] [facility], [address] [id number] 0 12/15 CMP Bilir ubin, total mg/dL 0.2 1.3 0.5 FINAL Gio Lopez * [facility], [address] [id number] 0 12/15 CMP Total prote in g/dL 6.3 8.2 7.2 FINAL Gio Lopez * [facility] [facility], [address] [id number] 0 12/15 TSH w/ refle x to free T4 TSH uIU/mL 0.47 4.68 2.93 FINAL Gio Lopez * [facility], [address] [id number] 0 12/15 CBC w/ auto diff WBC K/uL 3.0 8.9 4.6 FINAL Gio Coronadoot ari [facility] - [place], [address] [place] [id number] 0 Phone: () - 12/15 CBC w/ auto diff HGB g/dL 12.5 16.6 13.4 FINAL Gio Coronadoot a [facility] - [place], [address] [place] [id number] 0 Phone: () - 12/15 CBC w/ auto diff PLT K/uL 113.0 364.0 147 FINAL Gio Coronadoot a [facility] - [place], [address] [place] [id number] 0 Phone: () - 12/15 CBC w/ auto diff Tatyana # (ANC) K/uL 1.6 6.6 3.1 FINAL [facility] - [place], [address] [place] [id number] 0 Phone: () - 12/15 CBC w/ auto diff Tatyana % % 43.0 74.0 68.2 FINAL [facility] - [place], [address] [place] [id number] 0 Phone: () - 12/15 CBC w/ auto diff IG % % 0.0 0.5 0.2 FINAL Gio Coronadoot ari [facility] - [place], [address] [place] [id number] 0 Phone: () - 12/15 CBC w/ auto diff IG # K/uL 0.0 0.03 0.01 FINAL Gio Coronadoot ari [facility] - [place], [address] [place] [id number] 0 Phone: () - 12/15 CBC w/ auto diff LY % % 14.0 41.0 19.7 FINAL Gio Coronadoot a [facility] - [place], [address] [place] [id number] 0 Phone: () - 12/15 CBC w/ auto diff MO % % 6.0 15.0 9.0 FINAL [facility] - [place], [address] [facility] [place] [id number] 0 Phone: () - 12/15 CBC w/ auto diff EO % % 0.0 7.0 2.2 FINAL [facility] - [place], [address] [facility] [address] [place] [id number] 0 Phone: () - 12/15 CBC w/ auto diff BA % % 0.0 2.0 0.7 FINAL [facility] - [place], [address] [facility] [address] [place] [id number] 0 Phone: () - 12/15 CBC w/ auto diff LY # K/uL 0.4 3.6 0.9 FINAL [facility] - [place], [address] [facility] [address] [place] [id number] 0 Phone: () - 12/15 CBC w/ auto diff MO # K/uL 0.2 1.3 0.4 FINAL [facility] - [place], [address] [facility] [address] [place] [id number] 0 Phone: () - 12/15 CBC w/ auto diff EO # K/uL 0.0 0.6 0.1 FINAL [facility] - [place], [address] [facility] [address] [place] [id number] 0 Phone: () - 12/15 CBC w/ auto diff BA # K/uL 0.0 0.2 0.0 FINAL [facility] - [place], [address] [place] [id number] 0 Phone: () - 12/15 CBC w/ auto diff NRBC % #/100W BC 0.0 0.2 0.0 FINAL [facility] - [place], [address] [address] [place] [id number] 0 Phone: () - 12/15 CBC w/ auto diff RBC M/uL 4.2 5.6 4.03 Low FINAL Gio Coronadoot a [facility] - [place], [address] [address] [place] [id number] 0 Phone: () - 12/15 CBC w/ auto diff HCT % 39.0 49.0 40.1 FINAL Gio Coronadoot a [facility] - [place], [address] [facility] [address] [place] [id number] 0 Phone: () - 12/15 CBC w/ auto diff MCV fL 80.0 104.0 99.5 FINAL Gio Interiano a [facility] - [place], [address] [facility] [address] [place] [id number] 0 Phone: () - 12/15 CBC w/ auto diff MCH pg 26.0 35.0 33.3 FINAL Gio Coronadoot a [facility] - [place], [address] [facility] [address] [place] [id number] 0 Phone: () - 12/15 CBC w/ auto diff MCHC g/dL 30.0 35.0 33.4 FINAL Gio Coronadoot a [facility] - [place], [address] [facility] [address] [place] [id number] 0 Phone: () - 12/15 CBC w/ auto diff MPV fL 9.5 13.4 10.5 FINAL Gio Coronadoot a [facility] - [place], [address] [address] [place] [id number] 0 Phone: () - 12/15 CBC w/ auto diff RDW % 11.3 15.6 12.60 FINAL Gio Coronadoot a [facility] - [place], [address] [address] [place] [id number] 0 Phone: () - 01/05 CMP Album in g/dL 3.5 5.0 3.9 FINAL Gio Lopez * [place] [facility] [place], [address] [place] [id number] 0 01/05 CMP Alkal ine phosp hatas e U/L 36.0 125.0 65 FINAL Gio Lopez * [facility], [address] [id number] 0 01/05 CMP ALT/S GPT U/L 0.0 49.0 27 FINAL Gio Lopez * [facility], [address] [id number] 0 01/05 CMP AST/S GOT U/L 17.0 59.0 35 FINAL Gio Lopez * [facility], [address] [id number] 0 01/05 CMP BUN mg/dL 9.0 20.0 27.0 High FINAL Gio Lopez * [facility], [address] [id number] 0 01/05 CMP Calci um mg/dL 8.4 10.2 8.7 FINAL Gio Lopez * [facility], [address] [id number] 0 01/05 CMP Chlor marissa mmol/L 96.0 107.0 109 High FINAL Gio Lopez * [facility], [address] [id number] 0 01/05 CMP CO2 mmol/L 22.0 30.0 22 The expected total allowable error for CO2 is 5.6%. We have seen up to 10% differenc e in values if reported at the end of the 96 hour stability window. Please consider the clinical significa nce of a 2.0-2.5 mmol/L lower reported CO2 value if reported at the end of the 96 hour stability window. FINAL Gio Lopez * [facility], [address] [facility] [id number] 0 01/05 CMP Creat inine mg/dL 0.66 1.25 1.70 High FINAL Gio Lopez * [facility] [facility], [address] [facility] [id number] 0 01/05 CMP GFR estim ate ml/min /1.73m ^2 40.4 Low GFR is calculate d using the CKD-EPI equation. FINAL Gio John * [facility] [facility], [address] [id number] 0 01/05 CMP Gluco se mg/dL 74.0 100.0 98 FINAL Gio Lopez * [place] [facility], [address] [id number] 0 01/05 CMP Potas sium mmol/L 3.5 5.1 5.0 FINAL Gio Lopez * [place] [facility], [address] [id number] 0 01/05 CMP Sodiu m mmol/L 137.0 145.0 138 FINAL Gio Lopez * [place] [facility], [address] [id number] 0 01/05 CMP Bilir ubin, total mg/dL 0.2 1.3 0.6 FINAL Gio Lopez * [place] [facility], [address] [id number] 0 01/05 CMP Total prote in g/dL 6.3 8.2 7.0 FINAL Gio Lopez * [place] [facility], [address] [facility] [id number] 0 01/05 TSH w/ refle x to free T4 TSH uIU/mL 0.47 4.68 1.34 FINAL Gio Lopez * [place] [facility] [place], [address] [facility] [place] [id number] 0 01/05 CBC w/ auto diff WBC K/uL 3.0 8.9 5.1 FINAL Gio Coronadoot a [facility] - [place], [address] [place] [id number] 0 Phone: () - 01/05 CBC w/ auto diff HGB g/dL 12.5 16.6 13.1 FINAL Gio Coronadoot a [facility] - [place], [address] [place] [id number] 0 Phone: () - 01/05 CBC w/ auto diff PLT K/uL 113.0 364.0 139 FINAL Gio Coronadoot a [facility] - [place], [address] [place] [id number] 0 Phone: () - 01/05 CBC w/ auto diff Tatyana # (ANC) K/uL 1.6 6.6 3.4 FINAL Gio Coronadoot a [facility] - [place], [address] [place] [id number] 0 Phone: () - 01/05 CBC w/ auto diff Tatyana % % 43.0 74.0 67.4 FINAL Gio Coronadoot a [facility] - [place], [address] [place] [id number] 0 Phone: () - 01/05 CBC w/ auto diff IG % % 0.0 0.5 0.6 High FINAL Gio Coronadoot [facility] - [place], [address] [place] [id number] 0 Phone: () - 01/05 CBC w/ auto diff IG # K/uL 0.0 0.03 0.03 FINAL Gio Coronadoot a [facility] - [place], [address] [place] [id number] 0 Phone: () - 01/05 CBC w/ auto diff LY % % 14.0 41.0 21.3 FINAL [facility] - [place], [address] [place] [id number] 0 Phone: () - 01/05 CBC w/ auto diff MO % % 6.0 15.0 8.7 FINAL [facility] - [place], [address] [place] [id number] 0 Phone: () - 01/05 CBC w/ auto diff EO % % 0.0 7.0 1.6 FINAL [facility] - [place], [address] [place] [id number] 0 Phone: () - 01/05 CBC w/ auto diff BA % % 0.0 2.0 0.4 FINAL [facility] - [place], [address] [place] [id number] 0 Phone: () - 01/05 CBC w/ auto diff LY # K/uL 0.4 3.6 1.1 FINAL [facility] - [place], [address] [place] [id number] 0 Phone: () - 01/05 CBC w/ auto diff MO # K/uL 0.2 1.3 0.4 FINAL [facility] - [place], [address] [place] [id number] 0 Phone: () - 01/05 CBC w/ auto diff EO # K/uL 0.0 0.6 0.1 FINAL [facility] - [place], [address] [place] [id number] 0 Phone: () - 01/05 CBC w/ auto diff BA # K/uL 0.0 0.2 0.0 FINAL Gio [facility] - [place], [address] [place] [id number] 0 Phone: () - 01/05 CBC w/ auto diff NRBC % #/100W BC 0.0 0.2 0.0 FINAL Gio Coronadoot a [facility] - [place], [address] [place] [id number] 0 Phone: () - 01/05 CBC w/ auto diff RBC M/uL 4.2 5.6 3.92 Low FINAL Gio Coronadoot a [facility] - [place], [address] [place] [id number] 0 Phone: () - 01/05 CBC w/ auto diff HCT % 39.0 49.0 39.1 FINAL Gio Coronadoot a [facility] - [place], [address] [place] [id number] 0 Phone: () - 01/05 CBC w/ auto diff MCV fL 80.0 104.0 99.7 FINAL Gio Coronadoot a [facility] - [place], [address] [place] [id number] 0 Phone: () - 01/05 CBC w/ auto diff MCH pg 26.0 35.0 33.4 FINAL Gio Interiano a [facility] - [place], [address] [place] [id number] 0 Phone: () - 01/05 CBC w/ auto diff MCHC g/dL 30.0 35.0 33.5 FINAL Gio Coronadoot a [facility] - [place], [address] [place] [id number] 0 Phone: () - 01/05 CBC w/ auto diff MPV fL 9.5 13.4 9.7 FINAL Gio Coronadoot a [facility] - [place], [address] [place] [id number] 0 Phone: () - 01/05 CBC w/ auto diff RDW % 11.3 15.6 13.00 FINAL Gio Coronadoot a [facility] - [place], [address] [place] [id number] 0 Phone: () - 01/26 CBC w/ auto diff WBC K/uL 3.0 8.9 4.5 FINAL Mary Jane [facility] - [place], [address] [place] [id number] 0 Phone: () - 01/26 CBC w/ auto diff HGB g/dL 12.5 16.6 13.1 FINAL Mary Jane [facility] - [place], [address] [place] [id number] 0 Phone: () - 01/26 CBC w/ auto diff PLT K/uL 113.0 364.0 155 FINAL Mary Jane Interiano ari [facility] - [place], [address] [facility] [address] [place] [id number] 0 Phone: () - 01/26 CBC w/ auto diff Tatyana # (ANC) K/uL 1.6 6.6 2.9 FINAL Mary [facility] - [place], [address] [facility] [address] [place] [id number] 0 Phone: () - 01/26 CBC w/ auto diff Tatyana % % 43.0 74.0 64.7 FINAL Mary Jane Interiano a[facility] - [place], [address] [facility] [address] [place] [id number] 0 Phone: () - 01/26 CBC w/ auto diff IG % % 0.0 0.5 0.4 FINAL Mary Jane [facility] - [place], [address] [facility] [address] [place] [id number] 0 Phone: () - 01/26 CBC w/ auto diff IG # K/uL 0.0 0.03 0.02 FINAL Mary Jane [facility] - [place], [address] [place] [id number] 0 Phone: () - 01/26 CBC w/ auto diff LY % % 14.0 41.0 23.4 FINAL Mary Jane Inter[facility] - [place], [address] [place] [id number] 0 Phone: () - 01/26 CBC w/ auto diff MO % % 6.0 15.0 9.8 FINAL Mary [facility] - [place], [address] [place] [id number] 0 Phone: () - 01/26 CBC w/ auto diff EO % % 0.0 7.0 1.3 FINAL Mary Jane Inter[facility] - [place], [address] [place] [id number] 0 Phone: () - 01/26 CBC w/ auto diff BA % % 0.0 2.0 0.4 FINAL Mary [facility] - [place], [address] [place] [id number] 0 Phone: () - 01/26 CBC w/ auto diff LY # K/uL 0.4 3.6 1.1 FINAL Mary [facility] - [place], [address] [place] [id number] 0 Phone: () - 01/26 CBC w/ auto diff MO # K/uL 0.2 1.3 0.4 FINAL [facility] - [place], [address] [place] [id number] 0 Phone: () - 01/26 CBC w/ auto diff EO # K/uL 0.0 0.6 0.1 FINAL Mary [facility] - [place], [address] [place] [id number] 0 Phone: () - 01/26 CBC w/ auto diff BA # K/uL 0.0 0.2 0.0 FINAL Mary Jane Coronadoot a [facility] - [place], [address] [place] [id number] 0 Phone: () - 01/26 CBC w/ auto diff NRBC % #/100W BC 0.0 0.2 0.0 FINAL [facility] - [place], [address] [facility] [address] [place] [id number] 0 Phone: () - 01/26 CBC w/ auto diff RBC M/uL 4.2 5.6 3.98 Low FINAL [facility] - [place], [address] [facility] [address] [place] [id number] 0 Phone: () - 01/26 CBC w/ auto diff HCT % 39.0 49.0 39.5 FINAL [facility] - [place], [address] [facility] [address] [place] [id number] 0 Phone: () - 01/26 CBC w/ auto diff MCV fL 80.0 104.0 99.2 FINAL [facility] - [place], [address] [facility] [address] [place] [id number] 0 Phone: () - 01/26 CBC w/ auto diff MCH pg 26.0 35.0 32.9 FINAL [facility] - [place], [address] [facility] [address] [place] [id number] 0 Phone: () - 01/26 CBC w/ auto diff MCHC g/dL 30.0 35.0 33.2 FINAL [facility] - [place], [address] [facility] [address] [place] [id number] 0 Phone: () - 01/26 CBC w/ auto diff MPV fL 9.5 13.4 10.3 FINAL [facility] - [place], [address] [facility] [address] [place] [id number] 0 Phone: () - 01/26 CBC w/ auto diff RDW % 11.3 15.6 12.90 FINAL [facility] - [place], [address] [place] [id number] 0 Phone: () - 01/26 TSH w/ refle x to free T4 TSH uIU/mL 0.47 4.68 1.54 FINAL Mary [facility] chap[facility], [address] [id number] 0 01/26 CMP Chlor marissa mmol/L 96.0 107.0 108 High FINAL Mary Jane chapman [facility], [address] [id number] 0 01/26 CMP CO2 mmol/L 22.0 30.0 24 The expected total allowable error for CO2 is 5.6%. We have seen up to 10% differenc e in values if reported at the end of the 96 hour stability window. Please consider the clinical significa nce of a 2.0-2.5 mmol/L lower reported CO2 value if reported at the end of the 96 hour stability window. FINAL Mary Jane chapman [facility], [address] [id number] 0 01/26 CMP Creat inine mg/dL 0.66 1.25 1.70 High FINAL Mary Jane chapman [facility], [address] [id number] 0 01/26 CMP GFR estim ate ml/min /1.73m ^2 40.4 Low GFR is calculate d using the CKD-EPI equation. FINAL Mary Jane chapman [facility], [address] [id number] 0 01/26 CMP Gluco se mg/dL 74.0 100.0 138 High FINAL Mary Jane chapman [facility], [address] [id number] 0 01/26 CMP Potas sium mmol/L 3.5 5.1 4.9 FINAL Mary Jane Ko * [facility], [address] [id number] 0 01/26 CMP Sodiu m mmol/L 137.0 145.0 139 FINAL Mary Jane Ko * [facility], [facility] [address] [id number] 0 01/26 CMP Bilir ubin, total mg/dL 0.2 1.3 0.5 FINAL Mary Jane Stefani * [facility], [facility] [address] [id number] 0 01/26 CMP Total prote in g/dL 6.3 8.2 6.9 FINAL Mary Jane Stefani * [facility] [address] [id number] 01/26 CMP Album in g/dL 3.5 5.0 3.8 FINAL Mary Jane Stefani * [facility], [facility] [address] [id number] 0 01/26 CMP Alkal ine phosp hatas e U/L 36.0 125.0 71 FINAL Mary Janejass Ko * [facility] [address] [id number] 0 01/26 CMP ALT/S GPT U/L 0.0 49.0 25 FINAL Mary Jane Stefani * [facility], [address] [id number] 0 01/26 CMP AST/S GOT U/L 17.0 59.0 35 FINAL Mary Jane Ko * [facility], [address] [facility] [place] [id number] 0 01/26 CMP BUN mg/dL 9.0 20.0 26.0 High FINAL Mary Jane Ko * [facility] [place], [address] [facility] [place] [id number] 0 01/26 CMP Calci um mg/dL 8.4 10.2 8.7 FINAL Mary Jane Ko * [facility] [place], [address] [facility] [place] [id number] 0 02/16 CBC w/ auto diff WBC K/uL 3.0 8.9 6.1 FINAL Mary Jane Ko [facility] [place], [address] [place] [id number] 0 Phone: () - 02/16 CBC w/ auto diff HGB g/dL 12.5 16.6 12.8 FINAL Mary Jane Coronadoot [facility] [place], [address] [place] [id number] 0 Phone: () - 02/16 CBC w/ auto diff PLT K/uL 113.0 364.0 147 FINAL Mary Jane Coronadoot [facility] [place], [address] [place] [id number] 0 Phone: () - 02/16 CBC w/ auto diff Tatyana # (ANC) K/uL 1.6 6.6 4.0 FINAL Mary Jane Ko [facility] [place], [address] [place] [id number] 0 Phone: () - 02/16 CBC w/ auto diff Tatyana % % 43.0 74.0 65.9 FINAL Mary Jane Ko [facility] [place], [address] [place] [id number] 0 Phone: () - 09/26 /2024 CBC w/ auto diff IG % % 0.0 0.5 0.3 FINAL Mary Jane Coronadoot ari [facility] [place], [address] [place] [id number] 0 Phone: () - 02/16 CBC w/ auto diff IG # K/uL 0.0 0.03 0.02 FINAL Mary Jane chapman [facility] [place], [address] [place] [id number] 0 Phone: () - 02/16 CBC w/ auto diff LY % % 14.0 41.0 23.1 FINAL Mary Jane Coronadoot a[facility] [place], [address] [place] [id number] 0 Phone: () - 02/16 CBC w/ auto diff MO % % 6.0 15.0 8.7 FINAL Mary Jane Coron[facility]oot [facility] [place], [address] [place] [id number] 0 Phone: () - 02/16 CBC w/ auto diff EO % % 0.0 7.0 1.7 FINAL Mary Jane chapman [facility] [place], [address] [place] [id number] 0 Phone: () - 02/16 CBC w/ auto diff BA % % 0.0 2.0 0.3 FINAL Mary Jane Interiano [facility] [place], [address] [place] [id number] 0 Phone: () - 02/16 CBC w/ auto diff LY # K/uL 0.4 3.6 1.4 FINAL Mary Jane Interiano [facility] [place], [address] [place] [id number] 0 Phone: () - 02/16 CBC w/ auto diff MO # K/uL 0.2 1.3 0.5 FINAL Mary Jane Coronadoot [facility] [place], [address] [place] [id number] 0 Phone: () - 02/16 CBC w/ auto diff EO # K/uL 0.0 0.6 0.1 FINAL Mary Jane chapman [facility] [place], [address] [facility] [address] [place] [id number] 0 Phone: () - 02/16 CBC w/ auto diff BA # K/uL 0.0 0.2 0.0 FINAL Mary Jane chapman [facility] [place], [address] [facility] [address] [place] [id number] 0 Phone: () - 02/16 CBC w/ auto diff NRBC % #/100W BC 0.0 0.2 0.0 FINAL Mary Jane chapman [facility] [place], [address] [facility] [address] [place] [id number] 0 Phone: () - 02/16 CBC w/ auto diff RBC M/uL 4.2 5.6 3.85 Low FINAL Mary Jane chapman [facility] [place], [address] [facility] [address] [place] [id number] 0 Phone: () - 02/16 CBC w/ auto diff HCT % 39.0 49.0 38.3 Low FINAL Mary Jane chapman [facility] [place], [address] [facility] [address] [place] [id number] 0 Phone: () - 02/16 CBC w/ auto diff MCV fL 80.0 104.0 99.5 FINAL Mary Jane chapman [facility] [place], [address] [facility] [address] [place] [id number] 0 Phone: () - 02/16 CBC w/ auto diff MCH pg 26.0 35.0 33.2 FINAL Mary Jane chapman [facility] [place], [address] [facility] [address] [place] [id number] 0 Phone: () - 02/16 CBC w/ auto diff MCHC g/dL 30.0 35.0 33.4 FINAL Mary Jane Stefani [facility] [place], [address] [place] [id number] 0 Phone: () - 02/16 CBC w/ auto diff MPV fL 9.5 13.4 10.6 FINAL Mary Jane Ko [facility] [place], [address] [place] [id number] 0 Phone: () - 02/16 CBC w/ auto diff RDW % 11.3 15.6 12.90 FINAL Mary Jane Ko [facility] [place], [address] [place] [id number] 0 Phone: () - 02/16 TSH w/ refle x to free T4 TSH uIU/mL 0.47 4.68 0.97 FINAL Mary Jane Ko * [facility], [address] [facility] [id number] 0 02/16 CMP Album in g/dL 3.5 5.0 3.9 FINAL Mary Jane Ko * [facility], [address] [facility] [id number] 0 02/16 CMP Alkal ine phosp hatas e U/L 36.0 125.0 61 FINAL Mary Jane Ko * [facility], [address] [facility] [id number] 0 02/16 CMP ALT/S GPT U/L 0.0 49.0 20 FINAL Mary Jane Ko * [facility], [address] [facility] [id number] 0 02/16 CMP BUN mg/dL 9.0 20.0 34.0 High FINAL Mary Jane Ko * [facility], [address] [facility] [id number] 0 02/16 CMP Calci um mg/dL 8.4 10.2 8.7 FINAL Mary Jane Coronado ari [facility], [facility]0 [facility] [address] [id number] 0 02/16 CMP Chlor marissa mmol/L 96.0 107.0 109 High FINAL [facility] [address] [id number] 0 02/16 CMP CO2 mmol/L 22.0 30.0 21 Low The expected total allowable error for CO2 is 5.6%. We have seen up to 10% differenc e in values if reported at the end of the 96 hour stability window. Please consider the clinical significa nce of a 2.0-2.5 mmol/L lower reported CO2 value if reported at the end of the 96 hour stability window. FINAL Mary Jane chapman [facility], [address] [place] [address] [address] [id number] 0 02/16 CMP Creat inine mg/dL 0.66 1.25 1.80 High FINAL Mary Jane chapman [facility], [address] [place] [address] [place] [address] [id number] 0 02/16 CMP GFR estim ate ml/min /1.73m ^2 37.7 Low GFR is calculate d using the CKD-EPI equation. FINAL Mary Jane Interiano [facility], [address] [place] [address] [address] [id number] 0 02/16 CMP Gluco se mg/dL 74.0 100.0 116 High FINAL Mary Jane chapman [facility], [facility]0 [facility] [address] [id number] 0 02/16 CMP Potas sium mmol/L 3.5 5.1 5.4 High FINAL Mary Jane Ko * [facility], [address] [facility] [id number] 0 02/16 CMP AST/S GOT U/L 17.0 59.0 29 FINAL Mary Jane Ko * [facility] [facility], [address] [facility] [id number] 0 02/16 CMP Sodiu m mmol/L 137.0 145.0 138 FINAL Mary Jane Ko * [facility] [facility], [address] [facility] [id number] 0 02/16 CMP Bilir ubin, total mg/dL 0.2 1.3 0.4 FINAL Mary Jane Ko * [place] [facility], [address] [facility] [id number] 0 02/16 CMP Total prote in g/dL 6.3 8.2 6.8 FINAL Mary Jane Ko * [place] [facility], [address] [facility] [id number] 0 02/23 CMP Album in g/dL 3.5 5.0 3.8 FINAL Mary Jane Ko * [facility], [address] [facility] [id number] 0 02/23 CMP Alkal ine phosp hatas e U/L 36.0 125.0 77 FINAL Mary Jane Ko * [facility], [address] [facility] [id number] 0 02/23 CMP ALT/S GPT U/L 0.0 49.0 22 FINAL Mary Jane Stefani * [facility], [address] [facility] [id number] 0 02/23 CMP AST/S GOT U/L 17.0 59.0 29 FINAL [facility], [address] [facility] [address] [id number] 0 02/23 CMP BUN mg/dL 9.0 20.0 30.0 High FINAL Mary Jane Elizabeth [facility], [facility]0 [facility] [address] [id number] 0 02/23 CMP Calci um mg/dL 8.4 10.2 9.0 FINAL Mary Jane Elizabeth [facility], [facility]0 [facility] [address] [id number] 0 02/23 CMP Chlor marissa mmol/L 96.0 107.0 108 High FINAL [facility] [address] [id number] 0 02/23 CMP CO2 mmol/L 22.0 30.0 24 The expected total allowable error for CO2 is 5.6%. We have seen up to 10% differenc e in values if reported at the end of the 96 hour stability window. Please consider the clinical significa nce of a 2.0-2.5 mmol/L lower reported CO2 value if reported at the end of the 96 hour stability window. FINAL Mary Jane Ko * [facility]0 [facility] [address] [id number] 0 02/23 CMP Creat inine mg/dL 0.66 1.25 1.50 High FINAL [facility], [facility] [address] [id number] 0 02/23 CMP GFR estim ate ml/min /1.73m ^2 46.9 Low GFR is calculate d using the CKD-EPI equation. FINAL Mary Jane Ko * [facility], [address] [id number] 0 02/23 CMP Gluco se mg/dL 74.0 100.0 134 High FINAL Mary Jane Ko * [facility], [address] [id number] 0 02/23 CMP Potas sium mmol/L 3.5 5.1 4.8 FINAL Mary Jane Ko * [facility], [facility] [address] [id number] 0 02/23 CMP Sodiu m mmol/L 137.0 145.0 139 FINAL Mary Jane Ko * [facility], [facility] [address] [id number] 0 02/23 CMP Bilir ubin, total mg/dL 0.2 1.3 0.7 FINAL Mary Jane Ko * [facility], [address] [place] [address] [id number] 0 02/23 CMP Total prote in g/dL 6.3 8.2 6.6 FINAL Mary Jane Ko * [facility], [address] [id number] 0 03/03 CMP Album in g/dL 3.5 5.0 3.7 FINAL Gio Lopez * [facility], [address] [id number] 0 03/03 CMP Alkal ine phosp hatas e U/L 36.0 125.0 69 FINAL Gio Lopez * [facility], [address] [id number] 0 03/03 CMP ALT/S GPT U/L 0.0 49.0 15 FINAL [facility], [facility]0 [facility] [address] [id number] 0 03/03 CMP AST/S GOT U/L 17.0 59.0 28 FINAL [facility], [address] [facility] [address] [id number] 0 03/03 CMP BUN mg/dL 9.0 20.0 26.0 High FINAL Gio Elizabeth [facility], [facility]0 [facility] [address] [id number] 0 03/03 CMP Calci um mg/dL 8.4 10.2 8.5 FINAL Gio Elizabeth [facility], [facility]0 [facility] [address] [id number] 0 03/03 CMP Chlor marissa mmol/L 96.0 107.0 110 High FINAL [facility], [facility] [address] [place] [address] [id number] 0 03/03 CMP CO2 mmol/L 22.0 30.0 20 Low The expected total allowable error for CO2 is 5.6%. We have seen up to 10% differenc e in values if reported at the end of the 96 hour stability window. Please consider the clinical significa nce of a 2.0-2.5 mmol/L lower reported CO2 value if reported at the end of the 96 hour stability window. FINAL [facility], [address] [id number] 0 03/03 CMP Creat inine mg/dL 0.66 1.25 1.60 High FINAL Gio Elizabeth [facility], [address] [facility] [id number] 0 03/03 CMP GFR estim ate ml/min /1.73m ^2 43.4 Low GFR is calculate d using the CKD-EPI equation. FINAL Gio Lopez * [facility], [address] [facility] [id number] 0 03/03 CMP Gluco se mg/dL 74.0 100.0 99 FINAL Gio Lopez * [place] [facility], [address] [facility] [id number] 0 03/03 CMP Potas sium mmol/L 3.5 5.1 4.2 FINAL Gio Lopez * [place] [facility], [address] [facility] [id number] 0 03/03 CMP Sodiu m mmol/L 137.0 145.0 139 FINAL Gio Lopez * [place] [facility], [address] [facility] [id number] 0 03/03 CMP Bilir ubin, total mg/dL 0.2 1.3 0.5 FINAL Gio Lopez * [place] [facility], [address] [facility] [id number] 0 03/03 CMP Total prote in g/dL 6.3 8.2 6.5 FINAL Gio Lopez * [place] [facility], [address] [facility] [id number] 0 03/03 TSH w/ refle x to free T4 TSH uIU/mL 0.47 4.68 2.38 FINAL Gio Lopez * [place] [facility], [address] [facility] [id number] 0 03/03 CBC w/ auto diff WBC K/uL 3.0 8.9 6.9 FINAL Gio chapman [facility] [place], [address] [place] [id number] 0 Phone: () - 03/03 CBC w/ auto diff HGB g/dL 12.5 16.6 12.1 Low FINAL Gio chapman [facility] [place], [address] [place] [id number] 0 Phone: () - 03/03 CBC w/ auto diff PLT K/uL 113.0 364.0 140 FINAL Gio Coronadoot ari [facility] [place], [address] [place] [id number] 0 Phone: () - 03/03 CBC w/ auto diff Tatyana # (ANC) K/uL 1.6 6.6 4.5 FINAL Gio chapman [facility] [place], [address] [place] [id number] 0 Phone: () - 03/03 CBC w/ auto diff Tatyana % % 43.0 74.0 65.1 FINAL Gio chapman [facility] [place], [address] [place] [id number] 0 Phone: () - 03/03 CBC w/ auto diff IG % % 0.0 0.5 0.3 FINAL Gio chapman [facility] [place], [address] [place] [id number] 0 Phone: () - 03/03 CBC w/ auto diff IG # K/uL 0.0 0.03 0.02 FINAL Gio Coronadoot ari [facility] [place], [address] [place] [id number] 0 Phone: () - 03/03 CBC w/ auto diff LY % % 14.0 41.0 20.6 FINAL Gio Coronadoot ari [facility] [place], [address] [place] [id number] 0 Phone: () - 03/03 CBC w/ auto diff MO % % 6.0 15.0 9.6 FINAL Gio Coronadoot a [facility] [place], [address] [place] [id number] 0 Phone: () - 03/03 CBC w/ auto diff EO % % 0.0 7.0 4.3 FINAL Gio Coronadoot a [facility] [place], [address] [place] [id number] 0 Phone: () - 03/03 CBC w/ auto diff BA % % 0.0 2.0 0.1 FINAL Gio Coronadoot a [facility] [place], [address] [place] [id number] 0 Phone: () - 03/03 CBC w/ auto diff LY # K/uL 0.4 3.6 1.4 FINAL Gio Coronadoot a [facility] [place], [address] [place] [id number] 0 Phone: () - 03/03 CBC w/ auto diff MO # K/uL 0.2 1.3 0.7 FINAL Gio Coronadoot a [facility] [place], [address] [place] [id number] 0 Phone: () - 03/03 CBC w/ auto diff EO # K/uL 0.0 0.6 0.3 FINAL Gio Coronadoot a [facility] [place], [address] [place] [id number] 0 Phone: () - 03/03 CBC w/ auto diff BA # K/uL 0.0 0.2 0.0 FINAL Gio Coronadoot a [facility] [place], [address] [place] [id number] 0 Phone: () - 03/03 CBC w/ auto diff NRBC % #/100W BC 0.0 0.2 0.0 FINAL Gio Coronadoot a [facility] [place], [address] [place] [id number] 0 Phone: () - 03/03 CBC w/ auto diff RBC M/uL 4.2 5.6 3.64 Low FINAL Gio Interiano [facility] [place], [address] [place] [id number] 0 Phone: () - 03/03 CBC w/ auto diff HCT % 39.0 49.0 36.6 Low FINAL Gio Interiano a [facility] [place], [address] [place] [id number] 0 Phone: () - 03/03 CBC w/ auto diff MCV fL 80.0 104.0 100.5 FINAL Gio chapman [facility] [place], [address] [place] [id number] 0 Phone: () - 03/03 CBC w/ auto diff MCH pg 26.0 35.0 33.2 FINAL Gio chapman [facility] [place], [address] [place] [id number] 0 Phone: () - 03/03 CBC w/ auto diff MCHC g/dL 30.0 35.0 33.1 FINAL Gio chapman [facility] [place], [address] [place] [id number] 0 Phone: () - 03/03 CBC w/ auto diff MPV fL 9.5 13.4 10.6 FINAL Gio nIteriano a [facility] [place], [address] [place] [id number] 0 Phone: () - 03/03 CBC w/ auto diff RDW % 11.3 15.6 13.20 FINAL Gio chapman [facility] [place], [address] [place] [id number] 0 Phone: () - 03/30 CMP Album in g/dL 3.5 5.0 3.8 FINAL Gio Lopez * [place] [facility] [place], [address] [facility] [id number] 0 03/30 CMP Alkal ine phosp hatas e U/L 36.0 125.0 79 FINAL Gio Lopez * [place] [facility], [address] [facility] [id number] 0 03/30 CMP ALT/S GPT U/L 0.0 49.0 24 FINAL Gio Lopez * [place] [facility], [address] [facility] [id number] 0 03/30 CMP AST/S GOT U/L 17.0 59.0 32 FINAL Gio Lopez * [facility], [address] [facility] [id number] 0 03/30 CMP BUN mg/dL 9.0 20.0 19.0 FINAL Gio Lopez * [facility], [address] [facility] [id number] 0 03/30 CMP Calci um mg/dL 8.4 10.2 8.2 Low FINAL Gio Lopez * [facility], [address] [facility] [id number] 0 03/30 CMP Chlor marissa mmol/L 96.0 107.0 108 High FINAL Gio Elizabeth [place] [facility], [address] [facility] [id number] 0 03/30 CMP CO2 mmol/L 22.0 30.0 25 The expected total allowable error for CO2 is 5.6%. We have seen up to 10% differenc e in values if reported at the end of the 96 hour stability window. Please consider the clinical significa nce of a 2.0-2.5 mmol/L lower reported CO2 value if reported at the end of the 96 hour stability window. FINAL Gio Elizabeth [place] [facility], [address] [facility] [id number] 0 03/30 CMP Creat inine mg/dL 0.66 1.25 1.40 High FINAL Gio Lopez * [place] [facility], [address] [facility] [id number] 0 03/30 CMP GFR estim ate ml/min /1.73m ^2 50.9 Low GFR is calculate d using the CKD-EPI equation. FINAL Gio Lopez * [place] [facility], [address] [facility] [id number] 0 03/30 CMP Gluco se mg/dL 74.0 100.0 115 High FINAL Gio Lopez * [place] [facility], [address] [facility] [id number] 0 03/30 CMP Potas sium mmol/L 3.5 5.1 4.4 FINAL Gio Lopez * [place] [facility], [address] [facility] [id number] 0 03/30 CMP Sodiu m mmol/L 137.0 145.0 137 FINAL Gio Lopez * [place] [facility], [address] [facility] [id number] 0 03/30 CMP Bilir ubin, total mg/dL 0.2 1.3 0.4 FINAL Gio Lopez * [place] [facility], [address] [facility] [id number] 0 03/30 CMP Total prote in g/dL 6.3 8.2 6.8 FINAL Gio Lopez * [place] [facility], [address] [facility] [id number] 0 03/30 CBC w/ auto diff WBC K/uL 3.0 8.9 5.6 FINAL Gio Lopez [place] [facility] [place], [address] [place] [id number] 0 03/30 CBC w/ auto diff HGB g/dL 12.5 16.6 12.9 FINAL Gio MEDINA [facility] [place], [address] [place] [id number] 0 03/30 CBC w/ auto diff PLT K/uL 113.0 364.0 152 FINAL Gio MEDINA [facility] [place], [address] [place] [id number] 0 03/30 CBC w/ auto diff Tatyana # (ANC) K/uL 1.6 6.6 3.4 FINAL Gio MEDINA [facility] [place], [address] [place] [id number] 0 03/30 CBC w/ auto diff Tatyana % % 43.0 74.0 60.7 FINAL Gio MEDINA [facility] [place], [address] [place] [id number] 0 03/30 CBC w/ auto diff IG % % 0.0 0.5 0.2 FINAL Gio MEDINA [facility] [place], [address] [address] [place] [id number] 0 03/30 CBC w/ auto diff IG # K/uL 0.0 0.03 0.01 [facility] [place], [address] [place] [id number] 0 03/30 CBC w/ auto diff LY % % 14.0 41.0 25.1 [facility] [place], [address] [place] [id number] 0 03/30 CBC w/ auto diff MO % % 6.0 15.0 8.6 [facility] [place], [address] [place] [id number] 0 03/30 CBC w/ auto diff EO % % 0.0 7.0 5.2 [facility] - [place], [address] [place] [id number] 0 03/30 CBC w/ auto diff BA % % 0.0 2.0 0.2 [facility] - [place], [address] [place] [id number] 0 03/30 CBC w/ auto diff LY # K/uL 0.4 3.6 1.4 [facility] - [place], [address] [place] [id number] 0 03/30 CBC w/ auto diff MO # K/uL 0.2 1.3 0.5 [facility] - [place], [address] [place] [id number] 0 03/30 CBC w/ auto diff EO # K/uL 0.0 0.6 0.3 [facility] - [place], [address] [place] [id number] 0 03/30 CBC w/ auto diff BA # K/uL 0.0 0.2 0.0 [facility] - [place], [address] [place] [id number] 0 03/30 CBC w/ auto diff NRBC % #/100W BC 0.0 0.2 0.0 [facility] - [place], [address] [place] [id number] 0 03/30 CBC w/ auto diff RBC M/uL 4.2 5.6 4.00 Low [facility] - [place], [address] [place] [id number] 0 03/30 CBC w/ auto diff HCT % 39.0 49.0 40.1 [facility] - [place], [address] [place] [id number] 0 03/30 CBC w/ auto diff MCV fL 80.0 104.0 100.3 [facility] - [place], [address] [place] [id number] 0 03/30 CBC w/ auto diff MCH pg 26.0 35.0 32.3 [facility] - [place], [address] [place] [id number] 0 03/30 CBC w/ auto diff MCHC g/dL 30.0 35.0 32.2 [facility] - [place], [address] [place] [id number] 0 03/30 CBC w/ auto diff MPV fL 9.5 13.4 10.3 [facility] - [place], [address] [place] [id number] 0 03/30 CBC w/ auto diff RDW % 11.3 15.6 12.80 [facility] - [place], [address] [place] [id number] 0 03/30 TSH w/ refle x to free T4 TSH uIU/mL 0.47 4.68 1.61 FINAL Gio Lopez * [place] [facility] [place], [address] [facility] [id number] 0 04/21 TSH w/ refle x to free T4 TSH uIU/mL 0.47 4.68 1.94 FINAL Gio Lopez * [place] [facility] [place], [address] [facility] [id number] 0 04/21 CBC w/ auto diff WBC K/uL 3.0 8.9 4.6 [facility] - [place], [address] [place] [id number] 0 04/21 CBC w/ auto diff HGB g/dL 12.5 16.6 13.0 [facility] - [place], [address] [place] [id number] 0 04/21 CBC w/ auto diff PLT K/uL 113.0 364.0 134 [facility] [place], [address] [place] [id number] 0 04/21 CBC w/ auto diff Plate let, immat ure, fract ion % 0.9 11.2 3.8 [facility] [place], [address] [place] [id number] 0 04/21 CBC w/ auto diff Tatyana # (ANC) K/uL 1.6 6.6 2.9 [facility] [place], [address] [place] [id number] 0 04/21 CBC w/ auto diff Tatyana % % 43.0 74.0 63.1 [facility] - [place], [address] [place] [id number] 0 04/21 CBC w/ auto diff IG % % 0.0 0.5 0.4 [facility] [place], [address] [place] [id number] 0 04/21 CBC w/ auto diff IG # K/uL 0.0 0.03 0.02 [facility] - [place], [address] [place] [id number] 0 04/21 CBC w/ auto diff LY % % 14.0 41.0 24.3 [facility] - [place], [address] [place] [id number] 0 04/21 CBC w/ auto diff MO % % 6.0 15.0 8.7 [facility] - [place], [address] [place] [id number] 0 04/21 CBC w/ auto diff EO % % 0.0 7.0 3.3 [facility] - [place], [address] [place] [id number] 0 04/21 CBC w/ auto diff BA % % 0.0 2.0 0.2 [facility] [place], [address] [place] [id number] 0 04/21 CBC w/ auto diff LY # K/uL 0.4 3.6 1.1 [facility] [place], [address] [place] [id number] 0 04/21 CBC w/ auto diff MO # K/uL 0.2 1.3 0.4 [facility] [place], [address] [place] [id number] 0 04/21 CBC w/ auto diff EO # K/uL 0.0 0.6 0.2 [facility] - [place], [address] [place] [id number] 0 04/21 CBC w/ auto diff BA # K/uL 0.0 0.2 0.0 [facility] - [place], [address] [place] [id number] 0 04/21 CBC w/ auto diff NRBC % #/100W BC 0.0 0.2 0.0 [facility] [place], [address] [place] [id number] 0 04/21 CBC w/ auto diff RBC M/uL 4.2 5.6 4.00 Low [facility] [place], [address] [place] [id number] 0 04/21 CBC w/ auto diff HCT % 39.0 49.0 39.2 [facility] [place], [address] [place] [id number] 0 04/21 CBC w/ auto diff MCV fL 80.0 104.0 98.0 [facility] - [place], [address] [place] [id number] 0 04/21 CBC w/ auto diff MCH pg 26.0 35.0 32.5 [facility] - [place], [address] [place] [id number] 0 04/21 CBC w/ auto diff MCHC g/dL 30.0 35.0 33.2 [facility] [place], [address] [place] [id number] 0 04/21 CBC w/ auto diff MPV fL 9.5 13.4 10.6 [facility] - [place], [address] [place] [id number] 0 04/21 CBC w/ auto diff RDW % 11.3 15.6 12.80 [facility] - [place], [address] [place] [id number] 0 04/21 CMP Album in g/dL 3.5 5.0 3.4 Low FINAL Gio Lopez * [place] [facility] [place], [address] [facility] [id number] 0 04/21 CMP Alkal ine phosp hatas e U/L 36.0 125.0 76 FINAL Gio Lopez * [place] [facility] [place], [address] [facility] [id number] 0 04/21 CMP ALT/S GPT U/L 0.0 49.0 22 FINAL Gio Lopez * [place] [facility] [place], [address] [facility] [id number] 0 04/21 CMP AST/S GOT U/L 17.0 59.0 32 FINAL Gio Lopez * [place] [facility] [place], [address] [facility] [id number] 0 04/21 CMP BUN mg/dL 9.0 20.0 21.0 High FINAL Gio Lopez * [place] [facility] [place], [address] [place] [id number] 0 04/21 CMP Calci um mg/dL 8.4 10.2 8.4 FINAL Gio Lopez * [place] [facility], [address] [address] [id number] 0 04/21 CMP Chlor marissa mmol/L 96.0 107.0 107 [facility], [address] [id number] 0 04/21 CMP CO2 mmol/L 22.0 30.0 24 The expected total allowable error for CO2 is 5.6%. We have seen up to 10% differenc e in values if reported at the end of the 96 hour stability window. Please consider the clinical significa nce of a 2.0-2.5 mmol/L lower reported CO2 value if reported at the end of the 96 hour stability window. [facility], [address] [id number] 0 04/21 CMP Creat inine mg/dL 0.66 1.25 1.40 High [facility], [address] [id number] 0 04/21 CMP GFR estim ate ml/min /1.73m ^2 50.9 Low GFR is calculate d using the CKD-EPI equation. [facility] [place] [facility], [address] [id number] 0 04/21 CMP Gluco se mg/dL 74.0 100.0 157 High [facility]AL [facility], [address] [id number] 0 04/21 CMP Potas sium mmol/L 3.5 5.1 4.6 FINAL Gio Lopez * [place] [facility] [place], [address] [facility] [id number] 0 04/21 CMP Sodiu m mmol/L 137.0 145.0 139 FINAL Gio Lopez * [place] [facility] [place], [address] [facility] [id number] 0 04/21 CMP Bilir ubin, total mg/dL 0.2 1.3 0.4 FINAL Gio Lopez * [place] [facility] [place], [address] [facility] [id number] 0 04/21 CMP Total prote in g/dL 6.3 8.2 6.3 FINAL Gio Lopez * [place] [facility] [place], [address] [facility] [id number] 0 05/11 CBC w/ auto diff WBC K/uL 3.0 8.9 8.4 FINAL Gio Lopez [place] [facility] , [address] [place] [id number] 0 05/11 CBC w/ auto diff HGB g/dL 12.5 16.6 13.0 FINAL Gio Lopez [place] [facility] , [address] [place] [id number] 0 05/11 CBC w/ auto diff PLT K/uL 113.0 364.0 156 FINAL Gio Lopez [place] [facility] , [address] [place] [id number] 0 05/11 CBC w/ auto diff Tatyana # (ANC) K/uL 1.6 6.6 6.2 FINAL Gio Lopez [place] - [place] [facility] , [address] [place] [id number] 0 05/11 CBC w/ auto diff Tatyana % % 43.0 74.0 72.8 FINAL Gio Lopez [place] [facility] , [address] [place] [id number] 0 05/11 CBC w/ auto diff IG % % 0.0 0.5 0.4 FINAL Gio Lopez [place] [facility] , [address] [place] [id number] 0 05/11 CBC w/ auto diff IG # K/uL 0.0 0.03 0.03 FINAL Gio Lopez [place] [facility] , [address] [place] [id number] 0 05/11 CBC w/ auto diff LY % % 14.0 41.0 19.2 FINAL Gio Lopez [place] [facility] , [address] [place] [id number] 0 05/11 CBC w/ auto diff MO % % 6.0 15.0 5.7 Low FINAL Gio Lopez [place] [facility] , [address] [place] [id number] 0 05/11 CBC w/ auto diff EO % % 0.0 7.0 1.7 FINAL Gio Lopez [place] [facility] , [address] [place] [id number] 0 05/11 CBC w/ auto diff BA % % 0.0 2.0 0.2 FINAL Gio Lopez [place] [facility] , [address] [place] [id number] 0 05/11 CBC w/ auto diff LY # K/uL 0.4 3.6 1.6 FINAL Gio Lopez [place] [facility] , [address] [place] [id number] 0 05/11 CBC w/ auto diff MO # K/uL 0.2 1.3 0.5 FINAL Gio Lopez [place] [facility] , [address] [place] [id number] 0 05/11 CBC w/ auto diff EO # K/uL 0.0 0.6 0.1 FINAL Gio Lopez [place] [facility] , [address] [place] [id number] 0 05/11 CBC w/ auto diff BA # K/uL 0.0 0.2 0.0 FINAL Gio Lopez [place] [facility] , [address] [place] [id number] 0 05/11 CBC w/ auto diff NRBC % #/100W BC 0.0 0.2 0.0 FINAL Gio Lopez [place] [facility] , [address] [place] [id number] 0 05/11 CBC w/ auto diff RBC M/uL 4.2 5.6 4.05 Low FINAL Gio Lopez [place] [facility] , [address] [place] [id number] 0 05/11 CBC w/ auto diff HCT % 39.0 49.0 39.6 FINAL Gio Lopez [place] [facility] , [address] [place] [id number] 0 05/11 CBC w/ auto diff MCV fL 80.0 104.0 97.8 FINAL Gio Lopez [place] [facility] , [address] [place] [id number] 0 05/11 CBC w/ auto diff MCH pg 26.0 35.0 32.1 FINAL Gio Lopez [place] [facility] , [address] [place] [id number] 0 05/11 CBC w/ auto diff MCHC g/dL 30.0 35.0 32.8 FINAL Gio Lopez [place] [facility] , [address] [place] [id number] 0 05/11 CBC w/ auto diff MPV fL 9.5 13.4 10.1 FINAL Gio Lopez [place] [facility] , [address] [place] [id number] 0 05/11 CBC w/ auto diff RDW % 11.3 15.6 12.80 FINAL Gio Lopez [place] [facility] , [address] [place] [id number] 0 05/11 TSH w/ refle x to free T4 TSH uIU/mL 0.47 4.68 1.98 FINAL Gio Lopez * [facility] , [address] [facility] [id number] 0 05/11 CMP Album in g/dL 3.5 5.0 3.7 FINAL Gio Lopez * [facility] , [address] [facility] [id number] 0 05/11 CMP Alkal ine phosp hatas e U/L 36.0 125.0 91 FINAL Gio Lopez * [facility] , [address] [facility] [id number] 0 05/11 CMP ALT/S GPT U/L 0.0 49.0 24 FINAL Gio Lopez * [facility] , [address] [facility] [id number] 0 05/11 CMP AST/S GOT U/L 17.0 59.0 35 FINAL Gio Lopez * [facility] , [address] [facility] [id number] 0 05/11 CMP BUN mg/dL 9.0 20.0 23.0 High FINAL Gio Lopez * [facility] , [address] [facility] [id number] 0 05/11 CMP Calci um mg/dL 8.4 10.2 8.6 FINAL Gio Lopez * [facility] , [address] [address] [facility] [id number] 0 05/11 CMP Chlor marissa mmol/L 96.0 107.0 108 High FINAL Gio Lopez * [facility] , [address] [address] [facility] [id number] 0 05/11 CMP CO2 mmol/L 22.0 30.0 26 The expected total allowable error for CO2 is 5.6%. We have seen up to 10% differenc e in values if reported at the end of the 96 hour stability window. Please consider the clinical significa nce of a 2.0-2.5 mmol/L lower reported CO2 value if reported at the end of the 96 hour stability window. FINAL Goi Lopez * [facility] , [address] [facility] [address] [facility] [id number] 0 05/11 CMP Creat inine mg/dL 0.66 1.25 1.50 High FINAL Gio Lopez * [facility] , [address] [facility] [id number] 0 05/11 CMP GFR estim ate ml/min /1.73m ^2 46.8 Low GFR is calculate d using the CKD-EPI equation. FINAL Gio Lopez * [facility] , [address] [facility] [address] [id number] 0 05/11 CMP Gluco se mg/dL 74.0 100.0 109 High FINAL Gio Lopez * [facility] , [address] [facility] [address] [id number] 0 05/11 CMP Potas sium mmol/L 3.5 5.1 4.4 FINAL Gio Lopez * [facility] , [facility] [facility] [address] [id number] 0 05/11 CMP Sodiu m mmol/L 137.0 145.0 138 FINAL Gio Lopez * [facility] , [facility] [address] [id number] 0 05/11 CMP Bilir ubin, total mg/dL 0.2 1.3 0.4 FINAL Gio Lopez * [facility] , [facility] [facility] [address] [id number] 0 05/11 CMP Total prote in g/dL 6.3 8.2 6.5 FINAL Gio Lopez * [facility] , [facility] [address] [id number] 0 06/01 TSH w/ refle x to free T4 TSH uIU/mL 0.47 4.68 3.67 FINAL Gio Lopez * [facility] , [facility] [address] [id number] 0 06/01 CMP Album in g/dL 3.5 5.0 3.7 FINAL Gio Lopez * [facility] , [facility] [facility] [address] [id number] 0 06/01 CMP Alkal ine phosp hatas e U/L 36.0 125.0 89 FINAL Gio Lopez * [facility] , [address] [facility] [address] [facility] [id number] 0 06/01 CMP ALT/S GPT U/L 0.0 49.0 25 FINAL Gio Lopez * [facility] , [address] [facility] [id number] 0 06/01 CMP AST/S GOT U/L 17.0 59.0 35 FINAL Gio John * [facility] , [address] [facility] [address] [facility] [id number] 0 06/01 CMP BUN mg/dL 9.0 20.0 21.0 High FINAL Gio Lopez * [facility] , [facility] [address] [facility] [id number] 0 06/01 CMP Calci um mg/dL 8.4 10.2 8.5 FINAL Gio John * [facility] , [address] [facility] [address] [facility] [id number] 0 06/01 CMP Chlor marissa mmol/L 96.0 107.0 108 High FINAL Gio John * [facility] , [address] [facility] [address] [facility] [id number] 0 06/01 CMP CO2 mmol/L 22.0 30.0 24 The expected total allowable error for CO2 is 5.6%. We have seen up to 10% differenc e in values if reported at the end of the 96 hour stability window. Please consider the clinical significa nce of a 2.0-2.5 mmol/L lower reported CO2 value if reported at the end of the 96 hour stability window. FINAL Gio Lopez * [facility] , [address] [facility] [address] [facility] [id number] 0 06/01 CMP Creat inine mg/dL 0.66 1.25 1.40 High FINAL Gio Lopez * [facility] , [address] [facility] [id number] 0 06/01 CMP GFR estim ate ml/min /1.73m ^2 50.8 Low GFR is calculate d using the CKD-EPI equation. FINAL Gio Lopez * [facility] , [address] [facility] [id number] 0 06/01 CMP Gluco se mg/dL 74.0 100.0 123 High FINAL Gio Lopez * [facility] , [address] [facility] [id number] 0 06/01 CMP Potas sium mmol/L 3.5 5.1 4.2 FINAL Gio Lopez * [facility] , [address] [facility] [id number] 0 06/01 CMP Sodiu m mmol/L 137.0 145.0 139 FINAL Gio Lopez * [facility] , [address] [facility] [id number] 0 06/01 CMP Bilir ubin, total mg/dL 0.2 1.3 0.4 FINAL Gio Lopez * [facility] , [address] [facility] [id number] 0 06/01 CMP Total prote in g/dL 6.3 8.2 6.1 Low FINAL Gio Lopez * [facility] , [address] [facility] [id number] 0 06/01 CBC w/ auto diff WBC K/uL 3.0 8.9 5.2 FINAL Gio Lopez [facility] , [address] [facility] [id number] 0 06/01 CBC w/ auto diff HGB g/dL 12.5 16.6 13.8 FINAL Gio Lopez [place] [facility] , [address] [place] [id number] 0 06/01 CBC w/ auto diff PLT K/uL 113.0 364.0 141 FINAL Goi Lopez [place] [facility] , [address] [place] [id number] 0 06/01 CBC w/ auto diff Tatyana # (ANC) K/uL 1.6 6.6 3.6 FINAL Gio Lopez [place] [facility] , [address] [place] [id number] 0 06/01 CBC w/ auto diff Tatyana % % 43.0 74.0 68.3 FINAL Gio Lopez [place] [facility] , [address] [place] [id number] 0 06/01 CBC w/ auto diff IG % % 0.0 0.5 0.4 FINAL Gio Lopez [place] [facility] , [address] [place] [id number] 0 06/01 CBC w/ auto diff IG # K/uL 0.0 0.03 0.02 FINAL Gio Lopez [place] [facility] , [address] [place] [id number] 0 06/01 CBC w/ auto diff LY % % 14.0 41.0 20.9 FINAL Gio Lopez [place] [facility] , [address] [place] [id number] 0 06/01 CBC w/ auto diff MO % % 6.0 15.0 7.3 FINAL Gio Lopez [place] [facility] , [address] [place] [id number] 0 06/01 CBC w/ auto diff EO % % 0.0 7.0 2.7 FINAL Gio Lopez [place] [facility] , [address] [place] [id number] 0 06/01 CBC w/ auto diff BA % % 0.0 2.0 0.4 FINAL Gio Lopez [place] [facility] , [address] [place] [id number] 0 06/01 CBC w/ auto diff LY # K/uL 0.4 3.6 1.1 FINAL Gio Lopez [place] [facility] , [address] [place] [id number] 0 06/01 CBC w/ auto diff MO # K/uL 0.2 1.3 0.4 FINAL Gio Lopez [place] [facility] , [address] [place] [id number] 0 06/01 CBC w/ auto diff EO # K/uL 0.0 0.6 0.1 FINAL Gio Lopez [place] [facility] , [address] [place] [id number] 0 06/01 CBC w/ auto diff BA # K/uL 0.0 0.2 0.0 FINAL iGo Lopez [place] [facility] , [address] [place] [id number] 0 06/01 CBC w/ auto diff NRBC % #/100W BC 0.0 0.2 0.0 FINAL Gio Lopez [place] [facility] , [address] [place] [id number] 0 06/01 CBC w/ auto diff RBC M/uL 4.2 5.6 4.22 FINAL Gio Lopez [place] [facility] , [address] [place] [id number] 0 06/01 CBC w/ auto diff HCT % 39.0 49.0 41.1 FINAL Gio Lopez [place] [facility] , [address] [place] [id number] 0 06/01 CBC w/ auto diff MCV fL 80.0 104.0 97.4 FINAL Gio Lopez [place] [facility] , [address] [place] [id number] 0 06/01 CBC w/ auto diff MCH pg 26.0 35.0 32.7 FINAL Gio Lopez [place] [facility] , [address] [place] [id number] 0 06/01 CBC w/ auto diff MCHC g/dL 30.0 35.0 33.6 FINAL Gio Lopez [place] [facility] , [address] [place] [id number] 0 06/01 CBC w/ auto diff MPV fL 9.5 13.4 9.9 FINAL Gio Lopez [place] [facility] , [address] [place] [id number] 0 06/01 CBC w/ auto diff RDW % 11.3 15.6 13.20 FINAL Gio Lopez [place] [facility] , [address] [place] [id number] 0 06/08 [facility] See paper finisher d 08/24 CMP Album in g/dL 3.5 5.0 3.4 Low FINAL Gio Lopez * [place] [facility] [place] [facility] , [address] [place] [id number] 0 08/24 CMP Alkal ine phosp hatas e U/L 36.0 125.0 110 FINAL Gio Lopez * [facility] , [address] [facility] [id number] 0 08/24 CMP ALT/S GPT U/L 0.0 49.0 27 FINAL Gio Lopez * [facility] , [address] [facility] [id number] 0 08/24 CMP AST/S GOT U/L 17.0 59.0 38 FINAL Gio Lopez * [facility] , [address] [facility] [id number] 0 08/24 CMP BUN mg/dL 9.0 20.0 29.0 High FINAL Gio Lopez * [facility] , [address] [facility] [id number] 0 08/24 CMP Calci um mg/dL 8.4 10.2 8.2 Low FINAL Gio Lopez * [facility] , [address] [facility] [id number] 0 08/24 CMP Chlor marissa mmol/L 96.0 107.0 104 FINAL Gio Lopez * [facility] , [address] [facility] [id number] 0 08/24 CMP CO2 mmol/L 22.0 30.0 23 The expected total allowable error for CO2 is 5.6%. We have seen up to 10% differenc e in values if reported at the end of the 96 hour stability window. Please consider the clinical significa nce of a 2.0-2.5 mmol/L lower reported CO2 value if reported at the end of the 96 hour stability window. FINAL Gio Lopez * [facility] , [address] [facility] [id number] 0 08/24 CMP Creat inine mg/dL 0.66 1.25 1.60 High FINAL Gio Lopez * [facility] , [address] [facility] [address] [id number] 0 08/24 CMP GFR estim ate ml/min /1.73m ^2 43.2 Low GFR is calculate d using the CKD-EPI equation. FINAL Gio Lopez * [facility] , [address] [id number] 0 08/24 CMP Gluco se mg/dL 74.0 100.0 175 High FINAL Gio Lopez * [facility] , [facility] [address] [id number] 0 08/24 CMP Potas sium mmol/L 3.5 5.1 3.8 FINAL Gio Lopez * [facility] , [facility] [id number] 0 08/24 CMP Sodiu m mmol/L 137.0 145.0 137 FINAL Gio Lopez * [facility] , [facility] [address] [place] [address] [id number] 0 08/24 CMP Bilir ubin, total mg/dL 0.2 1.3 0.6 FINAL Gio Lopez * [facility] , [address] [id number] 0 08/24 CMP Total prote in g/dL 6.3 8.2 5.9 Low FINAL Gio Lopez * [facility] , [address] [id number] 0 08/24 TSH w/ refle x to free T4 TSH uIU/mL 0.47 4.68 0.82 FINAL Gio John * [facility] , [facility] [address] [id number] 0 08/24 CBC w/ auto diff WBC K/uL 3.0 8.9 5.5 FINAL Gio Lopez [place] [facility] [place] [facility] , [address] [place] [id number] 0 08/24 CBC w/ auto diff HGB g/dL 12.5 16.6 13.6 FINAL Gio Lopez [place] [facility] [place] [facility] , [address] [place] [id number] 0 08/24 CBC w/ auto diff PLT K/uL 113.0 364.0 158 FINAL Gio Lopez [place] [facility] [place] [facility] , [address] [place] [id number] 0 08/24 CBC w/ auto diff Tatyana # (ANC) K/uL 1.6 6.6 3.8 FINAL Gio Lopez [place] [facility] [place] [facility] , [address] [place] [id number] 0 08/24 CBC w/ auto diff Tatyana % % 43.0 74.0 69.2 FINAL Gio Lopez [place] [facility] [place] [facility] , [address] [place] [id number] 0 08/24 CBC w/ auto diff IG % % 0.0 0.5 0.4 FINAL Gio Lopez [place] [facility] [place] [facility] , [address] [place] [id number] 0 08/24 CBC w/ auto diff IG # K/uL 0.0 0.03 0.02 FINAL Gio Lopez [place] [facility] [place] [facility] , [address] [place] [id number] 0 08/24 CBC w/ auto diff LY % % 14.0 41.0 20.6 FINAL Gio Lopez [place] [facility] [place] [facility] , [address] [place] [id number] 0 08/24 CBC w/ auto diff MO % % 6.0 15.0 7.9 FINAL Gio Lopez [place] [facility] [place] [facility] , [address] [place] [id number] 0 08/24 CBC w/ auto diff EO % % 0.0 7.0 1.7 FINAL Gio Lopez [place] [facility] [place] [facility] , [address] [place] [id number] 0 08/24 CBC w/ auto diff BA % % 0.0 2.0 0.2 FINAL Gio Lopez [place] [facility] [place] [facility] , [address] [place] [id number] 0 08/24 CBC w/ auto diff LY # K/uL 0.4 3.6 1.1 FINAL Gio Lopez [place] [facility] [place] [facility] , [address] [place] [id number] 0 08/24 CBC w/ auto diff MO # K/uL 0.2 1.3 0.4 FINAL Gio Lopez [place] [facility] [place] [facility] , [address] [place] [id number] 0 08/24 CBC w/ auto diff EO # K/uL 0.0 0.6 0.1 FINAL Gio Lopez [place] [facility] [place] [facility] , [address] [place] [id number] 0 08/24 CBC w/ auto diff BA # K/uL 0.0 0.2 0.0 FINAL Gio Lopez [place] [facility] [place] [facility] , [address] [place] [id number] 0 08/24 CBC w/ auto diff NRBC % #/100W BC 0.0 0.2 0.0 FINAL Gio Lopez [place] [facility] [place] [facility] , [address] [place] [id number] 0 08/24 CBC w/ auto diff RBC M/uL 4.2 5.6 4.08 Low FINAL Gio Lopez [place] [facility] [place] [facility] , [address] [place] [id number] 0 08/24 CBC w/ auto diff HCT % 39.0 49.0 41.1 FINAL Gio Lopez [place] [facility] [place] [facility] , [address] [facility] [address] [place] [id number] 0 08/24 CBC w/ auto diff MCV fL 80.0 104.0 100.7 FINAL Gio Lopez [place] [facility] [place] [facility] , [address] [facility] [address] [place] [id number] 0 08/24 CBC w/ auto diff MCH pg 26.0 35.0 33.3 FINAL Gio Lopez [place] [facility] [place] [facility] , [address] [place] [id number] 0 08/24 CBC w/ auto diff MCHC g/dL 30.0 35.0 33.1 FINAL Gio Lopez [place] [facility] [place] [facility] , [address] [place] [id number] 0 08/24 CBC w/ auto diff MPV fL 9.5 13.4 10.7 FINAL Gio Lopez [place] [facility] [place] [facility] , [address] [place] [id number] 0 08/24 CBC w/ auto diff RDW % 11.3 15.6 13.00 FINAL Gio Lopez [place] [facility] [place] [facility] , [address] [facility] [id number] 0 09/14 CMP GFR estim ate ml/min /1.73m ^2 40.2 Low GFR is calculate d using the CKD-EPI equation. FINAL Gio Lopez * [facility] , [address] [facility] [id number] 0 09/14 CMP Gluco se mg/dL 74.0 100.0 106 High FINAL Gio Lopez * [facility] , [address] [facility] [id number] 0 09/14 CMP Potas sium mmol/L 3.5 5.1 4.7 FINAL Gio Lopez * [facility] , [address] [facility] [id number] 0 09/14 CMP Sodiu m mmol/L 137.0 145.0 135 Low FINAL Gio Lopez * [facility] , [address] [facility] [id number] 0 09/14 CMP Bilir ubin, total mg/dL 0.2 1.3 0.3 FINAL Gio Lopez * [facility] , [address] [facility] [id number] 0 09/14 CMP Total prote in g/dL 6.3 8.2 5.6 Low FINAL Gio Lopez * [facility] , [address] [facility] [id number] 0 09/14 CMP Album in g/dL 3.5 5.0 3.2 Low FINAL Gio Lopez * [facility] , [address] [facility] [id number] 0 09/14 CMP Alkal ine phosp hatas e U/L 36.0 125.0 110 FINAL Gio Lopez * [facility] , [address] [facility] [id number] 0 09/14 CMP ALT/S GPT U/L 0.0 49.0 36 FINAL Gio Lopez * [facility] , [address] [facility] [id number] 0 09/14 CMP AST/S GOT U/L 17.0 59.0 55 FINAL Gio Lopez * [facility] , [address] [facility] [id number] 0 09/14 CMP BUN mg/dL 9.0 20.0 27.0 High FINAL Gio Lopez * [facility] , [address] [facility] [id number] 0 09/14 CMP Calci um mg/dL 8.4 10.2 7.7 Low FINAL Gio Lopez * [facility] , [address] [facility] [id number] 0 09/14 CMP Chlor marissa mmol/L 96.0 107.0 104 FINAL Gio Lopez * [facility] , [address] [facility] [id number] 0 09/14 CMP CO2 mmol/L 22.0 30.0 27 The expected total allowable error for CO2 is 5.6%. We have seen up to 10% differenc e in values if reported at the end of the 96 hour stability window. Please consider the clinical significa nce of a 2.0-2.5 mmol/L lower reported CO2 value if reported at the end of the 96 hour stability window. FINAL Gio Lopez * [facility] , [address] [facility] [id number] 0 09/14 CMP Creat inine mg/dL 0.66 1.25 1.70 High FINAL Gio Lopez * [place] [facility] [place] [facility] , [address] [place] [id number] 0 09/14 CBC w/ auto diff WBC K/uL 3.0 8.9 6.8 FINAL Gio Lopez [place] [facility] [place] [facility] , [address] [place] [id number] 0 09/14 CBC w/ auto diff HGB g/dL 12.5 16.6 13.5 FINAL Gio Lopez [place] [facility] , [address] [place] [id number] 0 09/14 CBC w/ auto diff PLT K/uL 113.0 364.0 148 FINAL Gio Lopez [place] [facility] [place] [facility] , [address] [place] [id number] 0 09/14 CBC w/ auto diff Tatyana # (ANC) K/uL 1.6 6.6 4.3 FINAL Gio Lopez [place] [facility] [place] [facility] , [address] [place] [id number] 0 09/14 CBC w/ auto diff Tatyana % % 43.0 74.0 62.9 FINAL Gio Lopez [place] [facility] , [address] [place] [id number] 0 09/14 CBC w/ auto diff IG % % 0.0 0.5 0.1 FINAL Gio Lopez [place] [facility] , [address] [place] [id number] 0 09/14 CBC w/ auto diff IG # K/uL 0.0 0.03 0.01 FINAL Gio Lopez [place] [facility] , [address] [place] [id number] 0 09/14 CBC w/ auto diff LY % % 14.0 41.0 30.0 FINAL Gio Lopez [place] [facility] , [address] [place] [id number] 0 09/14 CBC w/ auto diff MO % % 6.0 15.0 5.4 Low FINAL Gio Lopez [place] [facility] , [address] [place] [id number] 0 09/14 CBC w/ auto diff EO % % 0.0 7.0 1.3 FINAL Gio Lopez [place] [facility] , [address] [place] [id number] 0 09/14 CBC w/ auto diff BA % % 0.0 2.0 0.3 FINAL Gio Lopez [place] [facility] , [address] [place] [id number] 0 09/14 CBC w/ auto diff LY # K/uL 0.4 3.6 2.0 FINAL Gio Lopez [place] [facility] , [address] [place] [id number] 0 09/14 CBC w/ auto diff MO # K/uL 0.2 1.3 0.4 FINAL Gio Lopez [place] [facility] , [address] [place] [id number] 0 09/14 CBC w/ auto diff EO # K/uL 0.0 0.6 0.1 FINAL Gio Lopez [place] [facility] , [address] [place] [id number] 0 09/14 CBC w/ auto diff BA # K/uL 0.0 0.2 0.0 FINAL Gio Lopez [place] [facility] , [address] [place] [id number] 0 09/14 CBC w/ auto diff NRBC % #/100W BC 0.0 0.2 0.0 FINAL Gio Lopez [place] [facility] , [address] [place] [id number] 0 09/14 CBC w/ auto diff RBC M/uL 4.2 5.6 4.08 Low FINAL Gio Lopez [place] [facility] , [address] [place] [id number] 0 09/14 CBC w/ auto diff HCT % 39.0 49.0 40.3 FINAL Gio Lopez [place] [facility] , [address] [place] [id number] 0 09/14 CBC w/ auto diff MCV fL 80.0 104.0 98.8 FINAL Gio Lopez [place] [facility] , [address] [place] [id number] 0 09/14 CBC w/ auto diff MCH pg 26.0 35.0 33.1 FINAL Gio Lopez [place] [facility] , [address] [place] [id number] 0 09/14 CBC w/ auto diff MCHC g/dL 30.0 35.0 33.5 FINAL Gio Lopez [place] [facility] , [address] [place] [id number] 0 09/14 CBC w/ auto diff MPV fL 9.5 13.4 10.5 FINAL Gio Lopez [place] [facility] , [address] [place] [id number] 0 09/14 CBC w/ auto diff RDW % 11.3 15.6 13.30 FINAL [facility] , [address] [facility] [id number] 0 09/14 TSH w/ refle x to free T4 TSH uIU/mL 0.47 4.68 0.68 FINAL Gio Lopez * [facility] , [address] [facility] [id number] 0 09/15 Prote in (dips tick) panel Prote in (ua) 3+ Abnor mal FINAL [facility]io [facility] , [address] [facility] [id number] 0 09/15 Prote in/cr eatin ine ratio , rando m urine panel CREAT ININE , RANDO M URINE mg/dL 20.0 320.0 52 FINAL Gio VALDES, [facility] [address] [place] [id number] 4 09/15 Prote in/cr eatin ine ratio , rando m urine panel PROTE IN/CR EATIN INE RATIO mg/gcr eat 25.0 148.0 6173 High FINAL Gio VALDES [facility] [address] [place] [id number] 4 09/15 Prote in/cr eatin ine ratio , rando m urine panel PROTE IN/CR EATIN INE RATIO mg/mgc reat 0.025 0.148 6.173 High FINAL Gio VALDES, [facility] [address] [place] [id number] 4 09/15 Prote in/cr eatin ine ratio , rando m urine panel PROTE IN, TOTAL , RANDO M UR mg/dL 5.0 25.0 321 High Verified by repeat analysis. FINAL Gio VALDES, [facility] [address] [place] [id number] 4 10/13 CBC w/ auto diff WBC K/uL 3.0 8.9 4.2 FINAL Gio Lopez [place] [facility] [place] [facility] , [address] [place] [id number] 0 10/13 CBC w/ auto diff HGB g/dL 12.5 16.6 12.3 Low FINAL Gio Lopez [place] [facility] , [address] [place] [id number] 0 10/13 CBC w/ auto diff PLT K/uL 113.0 364.0 162 FINAL Gio Lopez [place] [facility] , [address] [place] [id number] 0 10/13 CBC w/ auto diff Tatyana # (ANC) K/uL 1.6 6.6 2.0 FINAL Gio Lopez [place] [facility] [place] [facility] , [address] [place] [id number] 0 10/13 CBC w/ auto diff Tatyana % % 43.0 74.0 46.9 FINAL Gio Lopez [place] [facility] , [address] [place] [id number] 0 10/13 CBC w/ auto diff IG % % 0.0 0.5 0.2 FINAL Gio Lopez [place] [facility] , [address] [place] [id number] 0 10/13 CBC w/ auto diff IG # K/uL 0.0 0.03 0.01 FINAL Gio Lopez [place] [facility] , [address] [place] [id number] 0 10/13 CBC w/ auto diff LY % % 14.0 41.0 43.1 High FINAL Gio Lopez [place] [facility] , [address] [place] [id number] 0 10/13 CBC w/ auto diff MO % % 6.0 15.0 6.9 FINAL Gio Lopez [place] [facility] , [address] [place] [id number] 0 10/13 CBC w/ auto diff EO % % 0.0 7.0 2.4 FINAL Gio Lopez [place] [facility] , [address] [place] [id number] 0 10/13 CBC w/ auto diff BA % % 0.0 2.0 0.5 FINAL Gio Lopez [place] [facility] , [address] [place] [id number] 0 10/13 CBC w/ auto diff LY # K/uL 0.4 3.6 1.8 FINAL Gio Lopez [place] [facility] , [address] [place] [id number] 0 10/13 CBC w/ auto diff MO # K/uL 0.2 1.3 0.3 FINAL Gio Lopez [place] [facility] , [address] [place] [id number] 0 10/13 CBC w/ auto diff EO # K/uL 0.0 0.6 0.1 FINAL Gio Lopez [place] [facility] , [address] [place] [id number] 0 10/13 CBC w/ auto diff BA # K/uL 0.0 0.2 0.0 FINAL Gio Lopez [place] [facility] , [address] [place] [id number] 0 10/13 CBC w/ auto diff NRBC % #/100W BC 0.0 0.2 0.0 FINAL Gio Lopez [place] [facility] , [address] [place] [id number] 0 10/13 CBC w/ auto diff RBC M/uL 4.2 5.6 3.70 Low FINAL Gio Lopez [place] [facility] , [address] [place] [id number] 0 10/13 CBC w/ auto diff HCT % 39.0 49.0 36.8 Low FINAL Gio Lopez [place] [facility] , [address] [place] [id number] 0 10/13 CBC w/ auto diff MCV fL 80.0 104.0 99.5 FINAL Gio Lopez [place] [facility] , [address] [place] [id number] 0 10/13 CBC w/ auto diff MCH pg 26.0 35.0 33.2 FINAL Gio Lopez [place] [facility] , [address] [place] [id number] 0 10/13 CBC w/ auto diff MCHC g/dL 30.0 35.0 33.4 FINAL Gio Lopez [place] [facility] , [address] [place] [id number] 0 10/13 CBC w/ auto diff MPV fL 9.5 13.4 10.4 FINAL Gio Lopez [place] [facility] , [address] [place] [id number] 0 10/13 CBC w/ auto diff RDW % 11.3 15.6 15.20 FINAL Gio Lopez [facility] , [address] [facility] [id number] 0 10/13 TSH w/ refle x to free T4 TSH uIU/mL 0.47 4.68 1.65 FINAL Gio Lopez * [facility] , [address] [facility] [id number] 0 10/13 CMP Album in g/dL 3.5 5.0 2.9 Low FINAL Gio Lopez * [facility] , [address] [facility] [id number] 0 10/13 CMP Alkal ine phosp hatas e U/L 36.0 125.0 106 FINAL Gio Lopez * [facility] , [address] [facility] [id number] 0 10/13 CMP ALT/S GPT U/L 0.0 49.0 32 FINAL Gio Lopez * [facility] , [address] [facility] [id number] 0 10/13 CMP AST/S GOT U/L 17.0 59.0 48 FINAL Gio Lopez * [facility] , [address] [facility] [id number] 0 10/13 CMP BUN mg/dL 9.0 20.0 20.0 FINAL Gio Lopez * [facility] , [address] [facility] [id number] 0 10/13 CMP Calci um mg/dL 8.4 10.2 7.4 Critica l torch cutter ry value tasia Costa ninoska Low FINAL Gio Lopez * [facility] , [address] [facility] [id number] 0 05/23 /2025 CMP Chlor marissa mmol/L 96.0 107.0 103 FINAL Gio Lopez * [facility] , [address] [facility] [id number] 0 10/13 CMP CO2 mmol/L 22.0 30.0 24 The expected total allowable error for CO2 is 5.6%. We have seen up to 10% differenc e in values if reported at the end of the 96 hour stability window. Please consider the clinical significa nce of a 2.0-2.5 mmol/L lower reported CO2 value if reported at the end of the 96 hour stability window. FINAL Gio Lopez * [facility] , [address] [facility] [id number] 0 10/13 CMP Creat inine mg/dL 0.66 1.25 1.50 High FINAL Gio Lopez * [facility] , [address] [facility] [id number] 0 10/13 CMP GFR estim ate ml/min /1.73m ^2 46.7 Low GFR is calculate d using the CKD-EPI equation. FINAL Gio Lopez * [facility] , [address] [facility] [id number] 0 10/13 CMP Gluco se mg/dL 74.0 100.0 110 High FINAL Gio Lopez * [facility] , [address] [facility] [id number] 0 10/13 CMP Potas sium mmol/L 3.5 5.1 4.4 FINAL Gio Lopez * [facility] , [address] [id number] 0 10/13 CMP Sodiu m mmol/L 137.0 145.0 136 Low FINAL Gio Lopez * [facility] , [address] [facility] [id number] 0 10/13 CMP Bilir ubin, total mg/dL 0.2 1.3 0.4 FINAL Gio Lopez * [facility] , [address] [facility] [id number] 0 10/13 CMP Total prote in g/dL 6.3 8.2 5.4 Low FINAL Gio Lopez * [facility] , [address] [facility] [id number] 0 10/13 Prote in/cr eatin ine ratio , rando m urine panel CREAT ININE , RANDO M URINE mg/dL 20.0 320.0 45 FINAL Gio VALDES, [facility] [address] [place] [id number] 4 10/13 Prote in/cr eatin ine ratio , rando m urine panel PROTE IN/CR EATIN INE RATIO mg/gcr eat 25.0 148.0 4556 High FINAL Gio VALDES, [facility] [address] [place] [id number] 4 10/13 Prote in/cr eatin ine ratio , rando m urine panel PROTE IN/CR EATIN INE RATIO mg/mgc reat 0.025 0.148 4.556 High FINAL Gio VALDES, [facility] [address] [place] [id number] 4 10/13 Prote in/cr eatin ine ratio , rando m urine panel PROTE IN, TOTAL , RANDO M UR mg/dL 5.0 25.0 205 High Verified by repeat analysis. FINAL Gio VALDES, [facility] [address] [place] [id number] 4 11/20 TSH w/ refle x to free T4 TSH uIU/mL 0.47 4.68 1.59 FINAL Gio Lopez * [facility] , [address] [facility] [id number] 0 11/20 CMP Album in g/dL 3.5 5.0 2.7 Low FINAL Gio Lopez * [facility] , [address] [facility] [id number] 0 11/20 CMP Alkal ine phosp hatas e U/L 36.0 125.0 120 FINAL Gio Lopez * [facility] , [address] [facility] [id number] 0 11/20 CMP ALT/S GPT U/L 0.0 49.0 33 FINAL Gio Lopez * [facility] , [address] [facility] [id number] 0 11/20 CMP AST/S GOT U/L 17.0 59.0 45 FINAL Gio Lopez * [facility] , [address] [facility] [id number] 0 11/20 CMP BUN mg/dL 9.0 20.0 26.0 High FINAL Gio Lopez * [facility] , [address] [facility] [id number] 0 11/20 CMP Calci um mg/dL 8.4 10.2 7.4 Criti ninoska Low FINAL Gio Lopez * [facility] , [address] [facility] [id number] 0 11/20 CMP Chlor marissa mmol/L 96.0 107.0 107 FINAL Gio Lopez * [facility] , [address] [facility] [address] [facility] [id number] 0 11/20 CMP CO2 mmol/L 22.0 30.0 22 The expected total allowable error for CO2 is 5.6%. We have seen up to 10% differenc e in values if reported at the end of the 96 hour stability window. Please consider the clinical significa nce of a 2.0-2.5 mmol/L lower reported CO2 value if reported at the end of the 96 hour stability window. FINAL Gio Lopez * [facility] , [facility] [address] [id number] 0 11/20 CMP Creat inine mg/dL 0.66 1.25 1.60 High FINAL Gio Lopez * [facility] [place] , [facility] [address] [id number] 0 11/20 CMP GFR estim ate ml/min /1.73m ^2 43.2 Low GFR is calculate d using the CKD-EPI equation. FINAL Gio Elizabeth [facility] [place] , [facility] [address] [id number] 0 11/20 CMP Gluco se mg/dL 74.0 100.0 99 FINAL Gio Elizabeth [facility] [place] , [facility] [address] [facility] [id number] 0 11/20 CMP Potas sium mmol/L 3.5 5.1 4.3 FINAL Gio Elizabeth [facility] [place] , [facility] [address] [facility] [id number] 0 11/20 CMP Sodiu m mmol/L 137.0 145.0 137 FINAL Gio Lopez * [facility] , [facility] [address] [id number] 0 11/20 CMP Bilir ubin, total mg/dL 0.2 1.3 0.5 FINAL Gio Lopez * [facility] , [facility] [address] [id number] 0 11/20 CMP Total prote in g/dL 6.3 8.2 5.1 Low FINAL Gio Lopez * [place] [facility] [place] [facility] , [address] [facility] [address] [place] [id number] 0 11/20 CBC w/ auto diff WBC K/uL 3.0 8.9 6.0 FINAL Gio Lopez [place] Oncology , [address] [place] [id number] 0 11/20 CBC w/ auto diff HGB g/dL 12.5 16.6 11.3 Low FINAL Gio Lopez [place] [facility] , [address] [place] [id number] 0 11/20 CBC w/ auto diff PLT K/uL 113.0 364.0 139 FINAL Gio Lopez [place] [facility] , [address] [place] [id number] 0 11/20 CBC w/ auto diff Tatyana # (ANC) K/uL 1.6 6.6 4.0 FINAL Gio Lopez [place] [facility] , [address] [place] [id number] 0 11/20 CBC w/ auto diff Tatyana % % 43.0 74.0 67.3 FINAL Gio Lopez [place] [facility] , [address] [place] [id number] 0 11/20 CBC w/ auto diff IG % % 0.0 0.5 0.2 FINAL Gio Lopez [place] [facility] , [address] [place] [id number] 0 11/20 CBC w/ auto diff IG # K/uL 0.0 0.03 0.01 FINAL Gio Lopez [place] [facility] , [address] [place] [id number] 0 11/20 CBC w/ auto diff LY % % 14.0 41.0 23.4 FINAL Gio Lopez [place] [facility] , [address] [place] [id number] 0 11/20 CBC w/ auto diff MO % % 6.0 15.0 7.6 FINAL Gio Lopez [place] [facility] , [address] [place] [id number] 0 11/20 CBC w/ auto diff EO % % 0.0 7.0 1.3 FINAL Gio Lopez [place] [facility] , [address] [place] [id number] 0 11/20 CBC w/ auto diff BA % % 0.0 2.0 0.2 FINAL Gio Lopez [place] [facility] , [address] [place] [id number] 0 11/20 CBC w/ auto diff LY # K/uL 0.4 3.6 1.4 FINAL Gio Lopez [place] [facility] , [address] [place] [id number] 0 11/20 CBC w/ auto diff MO # K/uL 0.2 1.3 0.5 FINAL Gio Lopez [place] [facility] , [address] [place] [id number] 0 11/20 CBC w/ auto diff EO # K/uL 0.0 0.6 0.1 FINAL Gio Lopez [place] [facility] , [address] [place] [id number] 0 11/20 CBC w/ auto diff BA # K/uL 0.0 0.2 0.0 FINAL Gio Lopez [place] [facility] , [address] [place] [id number] 0 11/20 CBC w/ auto diff NRBC % #/100W BC 0.0 0.2 0.0 FINAL Gio Lopez [place] [facility] , [address] [place] [id number] 0 11/20 CBC w/ auto diff RBC M/uL 4.2 5.6 3.24 Low FINAL Gio Lopez [place] [facility] , [address] [place] [id number] 0 11/20 CBC w/ auto diff HCT % 39.0 49.0 33.6 Low FINAL Gio Lopez [place] [facility] , [address] [place] [id number] 0 11/20 CBC w/ auto diff MCV fL 80.0 104.0 103.7 FINAL Gio Lopez [place] [facility] , [address] [place] [id number] 0 11/20 CBC w/ auto diff MCH pg 26.0 35.0 34.9 FINAL Gio Lopez [place] [facility] , [address] [place] [id number] 0 11/20 CBC w/ auto diff MCHC g/dL 30.0 35.0 33.6 FINAL Gio Lopez [place] [facility] , [address] [place] [id number] 0 11/20 CBC w/ auto diff MPV fL 9.5 13.4 10.2 FINAL Gio Lopez [place] [facility] , [address] [place] [id number] 0 11/20 CBC w/ auto diff RDW % 11.3 15.6 16.60 High FINAL Gio Lopez [facility] Oncology , [address] [facility] [id number] 0 11/20 Prote in/cr eatin ine ratio , rando m urine panel CREAT ININE , RANDO M URINE mg/dL 20.0 320.0 41 FINAL Gio Lopez QUEST, [facility] [address] [place] [id number] 4 11/20 Prote in/cr eatin ine ratio , rando m urine panel PROTE IN/CR EATIN INE RATIO mg/gcr eat 25.0 148.0 3634 High FINAL Gio VALDES, [facility] [address] [place] [id number] 4 11/20 Prote in/cr eatin ine ratio , rando m urine panel PROTE IN/CR EATIN INE RATIO mg/mgc reat 0.025 0.148 3.634 High FINAL Gio VALDES, [facility] [address] [place] [id number] 4 11/20 Prote in/cr eatin ine ratio , rando m urine panel PROTE IN, TOTAL , RANDO M UR mg/dL 5.0 25.0 149 High FINAL Gio VALDES, [facility] [address] [place] [id number] 4 12/20 CMP Album in g/dL 3.5 5.0 2.9 Low FINAL Gio Lopez * [facility] On[facility] , [address] [facility] [id number] 0 12/20 CMP Alkal ine phosp hatas e U/L 36.0 125.0 117 FINAL Gio Lopez * [facility] , [address] [facility] [id number] 0 12/20 CMP ALT/S GPT U/L 0.0 49.0 33 FINAL Gio Lopez * [facility] , [address] [facility] [id number] 0 12/20 CMP AST/S GOT U/L 17.0 59.0 45 FINAL Gio Lopez * [facility] , [address] [facility] [address] [facility] [id number] 0 12/20 CMP BUN mg/dL 9.0 20.0 33.0 High FINAL Gio Lopez * [facility] , [facility] [address] [id number] 0 12/20 CMP Calci um mg/dL 8.4 10.2 7.7 Low FINAL Gio Lopez * [facility] , [address] [facility] [address] [id number] 0 12/20 CMP Chlor marissa mmol/L 96.0 107.0 105 FINAL Gio Lopez * [facility] , [address] [facility] [address] [id number] 0 12/20 CMP CO2 mmol/L 22.0 30.0 21 Low The expected total allowable error for CO2 is 5.6%. We have seen up to 10% differenc e in values if reported at the end of the 96 hour stability window. Please consider the clinical significa nce of a 2.0-2.5 mmol/L lower reported CO2 value if reported at the end of the 96 hour stability window. FINAL Gio Lopez * [facility] , [address] [facility] [address] [id number] 0 12/20 CMP Creat inine mg/dL 0.66 1.25 1.90 High FINAL Gio Lopez * [facility] , [facility] [address] [id number] 0 12/20 CMP GFR estim ate ml/min /1.73m ^2 35.1 Low GFR is calculate d using the CKD-EPI equation. FINAL Gio Lopez * [facility] , [address] [facility] [id number] 0 12/20 CMP Gluco se mg/dL 74.0 100.0 130 High FINAL Gio Lopez * [facility] , [address] [facility] [id number] 0 12/20 CMP Potas sium mmol/L 3.5 5.1 4.6 FINAL Gio Lopez * [facility] , [address] [facility] [id number] 0 12/20 CMP Sodiu m mmol/L 137.0 145.0 132 Low FINAL Gio Lopez * [facility] , [address] [facility] [id number] 0 12/20 CMP Bilir ubin, total mg/dL 0.2 1.3 0.2 FINAL Gio Lopez * [facility] , [address] [facility] [id number] 0 12/20 CMP Total prote in g/dL 6.3 8.2 5.5 Low FINAL Gio Lopez * [facility] , [address] [facility] [id number] 0 12/20 CBC w/ auto diff WBC K/uL 3.0 8.9 3.8 FINAL [facility] , [address] [facility] [id number] 0 12/20 CBC w/ auto diff HGB g/dL 12.5 16.6 11.5 Low FINAL Gio Lopez [place] [facility] , [address] [place] [id number] 0 12/20 CBC w/ auto diff PLT K/uL 113.0 364.0 176 FINAL Gio Lopez [place] [facility] , [address] [place] [id number] 0 12/20 CBC w/ auto diff Tatyana # (ANC) K/uL 1.6 6.6 2.1 FINAL Gio Lopez [place] [facility] , [address] [place] [id number] 0 12/20 CBC w/ auto diff Tatyana % % 43.0 74.0 56.1 FINAL Gio Lopez [place] [facility] , [address] [place] [id number] 0 12/20 CBC w/ auto diff IG % % 0.0 0.5 0.3 FINAL Gio Lopez [place] [facility] , [address] [place] [id number] 0 12/20 CBC w/ auto diff IG # K/uL 0.0 0.03 0.01 FINAL Gio Lopez [place] [facility] , [address] [place] [id number] 0 12/20 CBC w/ auto diff LY % % 14.0 41.0 33.3 FINAL Gio Lopez [place] [facility] , [address] [place] [id number] 0 12/20 CBC w/ auto diff MO % % 6.0 15.0 8.7 FINAL Gio Lopez [place] [facility] , [address] [place] [id number] 0 12/20 CBC w/ auto diff EO % % 0.0 7.0 1.3 FINAL Gio Lopez [place] [facility] , [address] [place] [id number] 0 12/20 CBC w/ auto diff BA % % 0.0 2.0 0.3 FINAL Gio Lopez [place] [facility] , [address] [place] [id number] 0 12/20 CBC w/ auto diff LY # K/uL 0.4 3.6 1.3 FINAL Gio Lopez [place] [facility] , [address] [place] [id number] 0 12/20 CBC w/ auto diff MO # K/uL 0.2 1.3 0.3 FINAL Gio Lopez [place] [facility] , [address] [place] [id number] 0 12/20 CBC w/ auto diff EO # K/uL 0.0 0.6 0.1 FINAL Gio Lopez [place] [facility] , [address] [place] [id number] 0 12/20 CBC w/ auto diff BA # K/uL 0.0 0.2 0.0 FINAL Gio Lopez [place] [facility] , [address] [place] [id number] 0 12/20 CBC w/ auto diff NRBC % #/100W BC 0.0 0.2 0.0 FINAL Gio Lopez [place] [facility] , [address] [place] [id number] 0 12/20 CBC w/ auto diff RBC M/uL 4.2 5.6 3.22 Low FINAL Gio Lopez [place] [facility] , [address] [place] [id number] 0 12/20 CBC w/ auto diff HCT % 39.0 49.0 34.0 Low FINAL Gio Lopez [place] [facility] , [address] [place] [id number] 0 12/20 CBC w/ auto diff MCV fL 80.0 104.0 105.6 High FINAL Gio Lopez [place] [facility] , [address] [place] [id number] 0 12/20 CBC w/ auto diff MCH pg 26.0 35.0 35.7 High FINAL Gio Lopez [place] [facility] , [address] [place] [id number] 0 12/20 CBC w/ auto diff MCHC g/dL 30.0 35.0 33.8 FINAL Gio Lopez [place] [facility] , [address] [place] [id number] 0 12/20 CBC w/ auto diff MPV fL 9.5 13.4 10.0 FINAL Gio Lopez [place] [facility] , [address] [place] [id number] 0 12/20 CBC w/ auto diff RDW % 11.3 15.6 15.30 FINAL Gio Lopez [place] [facility] , [address] [place] [id number] 0 12/21 Prote in/cr eatin ine ratio , rando m urine panel CREAT ININE , RANDO M URINE mg/dL 20.0 320.0 27 FINAL Gio Lopez QUEST, [facility] [address] [id number] 4 12/21 Prote in/cr eatin ine ratio , rando m urine panel PROTE IN/CR EATIN INE RATIO mg/gcr eat 25.0 148.0 1593 High FINAL Gio John VALDES, [employer] [facility] [address] [id number] 4 12/21 Prote in/cr eatin ine ratio , rando m urine panel PROTE IN/CR EATIN INE RATIO mg/mgc reat 0.025 0.148 1.593 High FINAL Gio Lopez [facility], [facility] [address] [id number] 4 12/21 Prote in/cr eatin ine ratio , rando m urine panel PROTE IN, TOTAL , RANDO M UR mg/dL 5.0 25.0 43 High FINAL Gio Lopez LUCIO [facility] [address] [id number] 4 Medications Date Name Route Dose Frequency Instructions Start Date End Date Status Lisinopril Oral daily a ctive Metoprolol Oral (Tartrate) 1.0 tablet BID active Diltiazem Oral daily 240mg daily active Tamsulosin Oral daily a ctive Furosemide Oral daily a ctive Acetaminophen Oral daily active Omeprazole Oral Delayed Release Capsule daily active 11/20 cabozantinib 20 MG Oral Tablet [Cabometyx] orally 40.0 mg daily Take on an empty stomach, 1 hour before or 2 hours after food. 2024 active 08/25 ondansetron 8 MG Oral Tablet orally 8.0 mg every 8 hours 2024 active 08/25 cabozantinib 20 MG Oral Tablet [Cabometyx] orally 60.0 mg daily Take on an empty stomach, 1 hour before or 2 hours after food. 2024 active 08/24 diphenhydramine hydrochloride 0.5 MG/ML Injectable Solution intravenously 50.0 mg Re-initiate treatment only upon physician approval. 2024 active 08/24 1 ML epinephrine 1 MG/ML Injection intramuscularly 0.3 mg once Re-initiate treatment only upon physician approval. 2024 active 08/24 famotidine 10 MG/ML Injectable Solution intravenously 20.0 mg Re-initiate treatment only upon physician approval. 2024 active 08/24 Methylprednisol one IV intravenously 125.0 mg Re-initiate treatment only upon physician approval. 2024 active 08/24 Hydrocortisone IV intravenously 100.0 mg Re-initiate treatment only upon physician approval. 2024 active 06/01 1 ML epinephrine 1 MG/ML Injection intramuscularly 0.3 mg once Re-initiate treatment only upon physician approval. 2024 active 06/01 diphenhydramine hydrochloride 0.5 MG/ML Injectable Solution intravenously 50.0 mg Re-initiate treatment only upon physician approval. 2024 active 06/01 Hydrocortisone IV intravenously 100.0 mg Re-initiate treatment only upon physician approval. 2024 active 06/01 famotidine 10 MG/ML Injectable Solution intravenously 20.0 mg Re-initiate treatment only upon physician approval. 2024 active 06/01 Methylprednisol one IV intravenously 125.0 mg Re-initiate treatment only upon physician approval. 2024 active 05/11 Methylprednisol one IV intravenously 125.0 mg Re-initiate treatment only upon physician approval. 2023 active 05/11 diphenhydramine hydrochloride 0.5 MG/ML Injectable Solution intravenously 50.0 mg Re-initiate treatment only upon physician approval. 2023 active 05/11 famotidine 10 MG/ML Injectable Solution intravenously 20.0 mg Re-initiate treatment only upon physician approval. 2023 active 05/11 1 ML epinephrine 1 MG/ML Injection intramuscularly 0.3 mg once Re-initiate treatment only upon physician approval. 2023 active 05/11 Hydrocortisone IV intravenously 100.0 mg Re-initiate treatment only upon physician approval. 2023 active 04/21 Hydrocortisone IV intravenously 100.0 mg Re-initiate treatment only upon physician approval. 2023 active 04/21 Methylprednisol one IV intravenously 125.0 mg Re-initiate treatment only upon physician approval. 2023 active 04/21 famotidine 10 MG/ML Injectable Solution intravenously 20.0 mg Re-initiate treatment only upon physician approval. 2023 active 04/21 1 ML epinephrine 1 MG/ML Injection intramuscularly 0.3 mg once Re-initiate treatment only upon physician approval. 2023 active 04/21 diphenhydramine hydrochloride 0.5 MG/ML Injectable Solution intravenously 50.0 mg Re-initiate treatment only upon physician approval. 2023 active 03/30 Hydrocortisone IV intravenously 100.0 mg Re-initiate treatment only upon physician approval. 2023 active 03/30 1 ML epinephrine 1 MG/ML Injection intramuscularly 0.3 mg once Re-initiate treatment only upon physician approval. 2023 active 03/30 Methylprednisol one IV intravenously 125.0 mg Re-initiate treatment only upon physician approval. 2023 active 03/30 famotidine 10 MG/ML Injectable Solution intravenously 20.0 mg Re-initiate treatment only upon physician approval. 2023 active 03/30 diphenhydramine hydrochloride 0.5 MG/ML Injectable Solution intravenously 50.0 mg Re-initiate treatment only upon physician approval. 2023 active 03/09 famotidine 10 MG/ML Injectable Solution intravenously 20.0 mg Re-initiate treatment only upon physician approval. 2023 active 03/09 diphenhydramine hydrochloride 0.5 MG/ML Injectable Solution intravenously 50.0 mg Re-initiate treatment only upon physician approval. 2023 active 03/09 Hydrocortisone IV intravenously 100.0 mg Re-initiate treatment only upon physician approval. 2023 active 03/09 1 ML epinephrine 1 MG/ML Injection intramuscularly 0.3 mg once Re-initiate treatment only upon physician approval. 2023 active 03/09 Methylprednisol one IV intravenously 125.0 mg Re-initiate treatment only upon physician approval. 2023 active 02/16 famotidine 10 MG/ML Injectable Solution intravenously 20.0 mg Re-initiate treatment only upon physician approval. 2023 active 02/16 diphenhydramine hydrochloride 0.5 MG/ML Injectable Solution intravenously 50.0 mg Re-initiate treatment only upon physician approval. 2023 active 02/16 1 ML epinephrine 1 MG/ML Injection intramuscularly 0.3 mg once Re-initiate treatment only upon physician approval. 2023 active 02/16 Methylprednisol one IV intravenously 125.0 mg Re-initiate treatment only upon physician approval. 2023 active 02/16 Hydrocortisone IV intravenously 100.0 mg Re-initiate treatment only upon physician approval. 2023 active 01/26 Hydrocortisone IV intravenously 100.0 mg Re-initiate treatment only upon physician approval. 2023 active 01/26 diphenhydramine hydrochloride 0.5 MG/ML Injectable Solution intravenously 50.0 mg Re-initiate treatment only upon physician approval. 2023 active 01/26 Methylprednisol one IV intravenously 125.0 mg Re-initiate treatment only upon physician approval. 2023 active 01/26 famotidine 10 MG/ML Injectable Solution intravenously 20.0 mg Re-initiate treatment only upon physician approval. 2023 active 01/26 1 ML epinephrine 1 MG/ML Injection intramuscularly 0.3 mg once Re-initiate treatment only upon physician approval. 2023 active 01/05 1 ML epinephrine 1 MG/ML Injection intramuscularly 0.3 mg once Re-initiate treatment only upon physician approval. 2023 active 01/05 diphenhydramine hydrochloride 0.5 MG/ML Injectable Solution intravenously 50.0 mg Re-initiate treatment only upon physician approval. 2023 active 01/05 Hydrocortisone IV intravenously 100.0 mg Re-initiate treatment only upon physician approval. 2023 active 01/05 Methylprednisol one IV intravenously 125.0 mg Re-initiate treatment only upon physician approval. 2023 active 01/05 famotidine 10 MG/ML Injectable Solution intravenously 20.0 mg Re-initiate treatment only upon physician approval. 2023 active 12/15 Hydrocortisone IV intravenously 100.0 mg Re-initiate treatment only upon physician approval. 2023 active 12/15 famotidine 10 MG/ML Injectable Solution intravenously 20.0 mg Re-initiate treatment only upon physician approval. 2023 active 12/15 1 ML epinephrine 1 MG/ML Injection intramuscularly 0.3 mg once Re-initiate treatment only upon physician approval. 2023 active 12/15 Methylprednisol one IV intravenously 125.0 mg Re-initiate treatment only upon physician approval. 2023 active 12/15 diphenhydramine hydrochloride 0.5 MG/ML Injectable Solution intravenously 50.0 mg Re-initiate treatment only upon physician approval. 2023 active 12/01 levothyroxine sodium 0.1 MG Oral Tablet 2023 active 11/25 Methylprednisol one IV intravenously 125.0 mg Re-initiate treatment only upon physician approval. 2023 active 11/25 diphenhydramine hydrochloride 0.5 MG/ML Injectable Solution intravenously 50.0 mg Re-initiate treatment only upon physician approval. 2023 active 11/25 1 ML epinephrine 1 MG/ML Injection intramuscularly 0.3 mg once Re-initiate treatment only upon physician approval. 2023 active 11/25 Hydrocortisone IV intravenously 100.0 mg Re-initiate treatment only upon physician approval. 2023 active 11/25 famotidine 10 MG/ML Injectable Solution intravenously 20.0 mg Re-initiate treatment only upon physician approval. 2023 active 11/03 1 ML epinephrine 1 MG/ML Injection intramuscularly 0.3 mg once Re-initiate treatment only upon physician approval. 2023 active 11/03 Hydrocortisone IV intravenously 100.0 mg Re-initiate treatment only upon physician approval. 2023 active 11/03 diphenhydramine hydrochloride 0.5 MG/ML Injectable Solution intravenously 50.0 mg Re-initiate treatment only upon physician approval. 2023 active 11/03 famotidine 10 MG/ML Injectable Solution intravenously 20.0 mg Re-initiate treatment only upon physician approval. 2023 active 11/03 Methylprednisol one IV intravenously 125.0 mg Re-initiate treatment only upon physician approval. 2023 active 10/13 1 ML epinephrine 1 MG/ML Injection intramuscularly 0.3 mg once Re-initiate treatment only upon physician approval. 2023 active 10/13 diphenhydramine hydrochloride 0.5 MG/ML Injectable Solution intravenously 50.0 mg Re-initiate treatment only upon physician approval. 2023 active 10/13 Methylprednisol one IV intravenously 125.0 mg Re-initiate treatment only upon physician approval. 2023 active 10/13 famotidine 10 MG/ML Injectable Solution intravenously 20.0 mg Re-initiate treatment only upon physician approval. 2023 active 10/13 Hydrocortisone IV intravenously 100.0 mg Re-initiate treatment only upon physician approval. 2023 active 09/22 famotidine 10 MG/ML Injectable Solution intravenously 20.0 mg Re-initiate treatment only upon physician approval. 2023 active 09/22 Hydrocortisone IV intravenously 100.0 mg Re-initiate treatment only upon physician approval. 2023 active 09/22 1 ML epinephrine 1 MG/ML Injection intramuscularly 0.3 mg once Re-initiate treatment only upon physician approval. 2023 active 09/22 diphenhydramine hydrochloride 0.5 MG/ML Injectable Solution intravenously 50.0 mg Re-initiate treatment only upon physician approval. 2023 active 09/22 Methylprednisol one IV intravenously 125.0 mg Re-initiate treatment only upon physician approval. 2023 active 09/01 1 ML epinephrine 1 MG/ML Injection intramuscularly 0.3 mg once Re-initiate treatment only upon physician approval. 2023 active 09/01 diphenhydramine hydrochloride 0.5 MG/ML Injectable Solution intravenously 50.0 mg Re-initiate treatment only upon physician approval. 2023 active 09/01 famotidine 10 MG/ML Injectable Solution intravenously 20.0 mg Re-initiate treatment only upon physician approval. 2023 active 09/01 Hydrocortisone IV intravenously 100.0 mg Re-initiate treatment only upon physician approval. 2023 active 09/01 Methylprednisol one IV intravenously 125.0 mg Re-initiate treatment only upon physician approval. 2023 active 08/11 Hydrocortisone IV intravenously 100.0 mg Re-initiate treatment only upon physician approval. 2023 active 08/11 diphenhydramine hydrochloride 0.5 MG/ML Injectable Solution intravenously 50.0 mg Re-initiate treatment only upon physician approval. 2023 active 08/11 1 ML epinephrine 1 MG/ML Injection intramuscularly 0.3 mg once Re-initiate treatment only upon physician approval. 2023 active 08/11 Methylprednisol one IV intravenously 125.0 mg Re-initiate treatment only upon physician approval. 2023 active 08/11 famotidine 10 MG/ML Injectable Solution intravenously 20.0 mg Re-initiate treatment only upon physician approval. 2023 active 05/20 1 ML epinephrine 1 MG/ML Injection intramuscularly 0.3 mg once Re-initiate treatment only upon physician approval. 2022 active 05/20 Hydrocortisone IV intravenously 100.0 mg Re-initiate treatment only upon physician approval. 2022 active 05/20 Methylprednisol one IV intravenously 125.0 mg Re-initiate treatment only upon physician approval. 2022 active 05/20 famotidine 10 MG/ML Injectable Solution intravenously 20.0 mg Re-initiate treatment only upon physician approval. 2022 active 05/20 diphenhydramine hydrochloride 0.5 MG/ML Injectable Solution intravenously 50.0 mg Re-initiate treatment only upon physician approval. 2022 active 04/29 diphenhydramine hydrochloride 0.5 MG/ML Injectable Solution intravenously 50.0 mg Re-initiate treatment only upon physician approval. 2022 active 04/29 1 ML epinephrine 1 MG/ML Injection intramuscularly 0.3 mg once Re-initiate treatment only upon physician approval. 2022 active 04/29 Hydrocortisone IV intravenously 100.0 mg Re-initiate treatment only upon physician approval. 2022 active 04/29 famotidine 10 MG/ML Injectable Solution intravenously 20.0 mg Re-initiate treatment only upon physician approval. 2022 active 04/29 Methylprednisol one IV intravenously 125.0 mg Re-initiate treatment only upon physician approval. 2022 active 04/16 levothyroxine sodium 0.1 MG Oral Tablet orally 1.0 tablet daily 2022 active 04/09 levothyroxine sodium 0.1 MG Oral Tablet orally 1.0 tablet daily 2022 active 04/08 Hydrocortisone IV intravenously 100.0 mg Re-initiate treatment only upon physician approval. 2022 active 04/08 Methylprednisol one IV intravenously 125.0 mg Re-initiate treatment only upon physician approval. 2022 active 04/08 famotidine 10 MG/ML Injectable Solution intravenously 20.0 mg Re-initiate treatment only upon physician approval. 2022 active 04/08 diphenhydramine hydrochloride 0.5 MG/ML Injectable Solution intravenously 50.0 mg Re-initiate treatment only upon physician approval. 2022 active 04/08 1 ML epinephrine 1 MG/ML Injection intramuscularly 0.3 mg once Re-initiate treatment only upon physician approval. 2022 active 03/24 levothyroxine sodium 0.05 MG Oral Tablet orally 2.0 tablet daily 2022 active 03/18 1 ML epinephrine 1 MG/ML Injection intramuscularly 0.3 mg once Re-initiate treatment only upon physician approval. 2022 active 03/18 Hydrocortisone IV intravenously 100.0 mg Re-initiate treatment only upon physician approval. 2022 active 03/18 famotidine 10 MG/ML Injectable Solution intravenously 20.0 mg Re-initiate treatment only upon physician approval. 2022 active 03/18 Methylprednisol one IV intravenously 125.0 mg Re-initiate treatment only upon physician approval. 2022 active 03/18 diphenhydramine hydrochloride 0.5 MG/ML Injectable Solution intravenously 50.0 mg Re-initiate treatment only upon physician approval. 2022 active 02/25 famotidine 10 MG/ML Injectable Solution intravenously 20.0 mg Re-initiate treatment only upon physician approval. 2022 active 02/25 1 ML epinephrine 1 MG/ML Injection intramuscularly 0.3 mg once Re-initiate treatment only upon physician approval. 2022 active 02/25 Hydrocortisone IV intravenously 100.0 mg Re-initiate treatment only upon physician approval. 2022 active 02/25 Methylprednisol one IV intravenously 125.0 mg Re-initiate treatment only upon physician approval. 2022 active 02/25 diphenhydramine hydrochloride 0.5 MG/ML Injectable Solution intravenously 50.0 mg Re-initiate treatment only upon physician approval. 2022 active 02/04 diphenhydramine hydrochloride 0.5 MG/ML Injectable Solution intravenously 50.0 mg Re-initiate treatment only upon physician approval. 2022 active 02/04 famotidine 10 MG/ML Injectable Solution intravenously 20.0 mg Re-initiate treatment only upon physician approval. 2022 active 02/04 Hydrocortisone IV intravenously 100.0 mg Re-initiate treatment only upon physician approval. 2022 active 02/04 1 ML epinephrine 1 MG/ML Injection intramuscularly 0.3 mg once Re-initiate treatment only upon physician approval. 2022 active 02/04 Methylprednisol one IV intravenously 125.0 mg Re-initiate treatment only upon physician approval. 2022 active 01/14 diphenhydramine hydrochloride 0.5 MG/ML Injectable Solution intravenously 50.0 mg Re-initiate treatment only upon physician approval. 2022 active 01/14 1 ML epinephrine 1 MG/ML Injection intramuscularly 0.3 mg once Re-initiate treatment only upon physician approval. 2022 active 01/14 Hydrocortisone IV intravenously 100.0 mg Re-initiate treatment only upon physician approval. 2022 active 01/14 famotidine 10 MG/ML Injectable Solution intravenously 20.0 mg Re-initiate treatment only upon physician approval. 2022 active 01/14 Methylprednisol one IV intravenously 125.0 mg Re-initiate treatment only upon physician approval. 2022 active 12/24 Methylprednisol one IV intravenously 125.0 mg Re-initiate treatment only upon physician approval. 2022 active 12/24 famotidine 10 MG/ML Injectable Solution intravenously 20.0 mg Re-initiate treatment only upon physician approval. 2022 active 12/24 1 ML epinephrine 1 MG/ML Injection intramuscularly 0.3 mg once Re-initiate treatment only upon physician approval. 2022 active 12/24 Hydrocortisone IV intravenously 100.0 mg Re-initiate treatment only upon physician approval. 2022 active 12/24 diphenhydramine hydrochloride 0.5 MG/ML Injectable Solution intravenously 50.0 mg Re-initiate treatment only upon physician approval. 2022 active 12/03 Hydrocortisone IV intravenously 100.0 mg Re-initiate treatment only upon physician approval. 2022 active 12/03 1 ML epinephrine 1 MG/ML Injection intramuscularly 0.3 mg once Re-initiate treatment only upon physician approval. 2022 active 12/03 Methylprednisol one IV intravenously 125.0 mg Re-initiate treatment only upon physician approval. 2022 active 12/03 famotidine 10 MG/ML Injectable Solution intravenously 20.0 mg Re-initiate treatment only upon physician approval. 2022 active 12/03 diphenhydramine hydrochloride 0.5 MG/ML Injectable Solution intravenously 50.0 mg Re-initiate treatment only upon physician approval. 2022 active 11/12 Hydrocortisone IV intravenously 100.0 mg Re-initiate treatment only upon physician approval. 2022 active 11/12 1 ML epinephrine 1 MG/ML Injection intramuscularly 0.3 mg once Re-initiate treatment only upon physician approval. 2022 active 11/12 famotidine 10 MG/ML Injectable Solution intravenously 20.0 mg Re-initiate treatment only upon physician approval. 2022 active 11/12 diphenhydramine hydrochloride 0.5 MG/ML Injectable Solution intravenously 50.0 mg Re-initiate treatment only upon physician approval. 2022 active 11/12 Methylprednisol one IV intravenously 125.0 mg Re-initiate treatment only upon physician approval. 2022 active 10/22 famotidine 10 MG/ML Injectable Solution intravenously 20.0 mg Re-initiate treatment only upon physician approval. 2022 active 10/22 Methylprednisol one IV intravenously 125.0 mg Re-initiate treatment only upon physician approval. 2022 active 10/22 Hydrocortisone IV intravenously 100.0 mg Re-initiate treatment only upon physician approval. 2022 active 10/22 diphenhydramine hydrochloride 0.5 MG/ML Injectable Solution intravenously 50.0 mg Re-initiate treatment only upon physician approval. 2022 active 10/22 1 ML epinephrine 1 MG/ML Injection intramuscularly 0.3 mg once Re-initiate treatment only upon physician approval. 2022 active 10/01 famotidine 10 MG/ML Injectable Solution intravenously 20.0 mg Re-initiate treatment only upon physician approval. 2022 active 10/01 Methylprednisol one IV intravenously 125.0 mg Re-initiate treatment only upon physician approval. 2022 active 10/01 diphenhydramine hydrochloride 0.5 MG/ML Injectable Solution intravenously 50.0 mg Re-initiate treatment only upon physician approval. 2022 active 10/01 1 ML epinephrine 1 MG/ML Injection intramuscularly 0.3 mg once Re-initiate treatment only upon physician approval. 2022 active 10/01 Hydrocortisone IV intravenously 100.0 mg Re-initiate treatment only upon physician approval. 2022 active 09/10 Methylprednisol one IV intravenously 125.0 mg Re-initiate treatment only upon physician approval. 2022 active 09/10 1 ML epinephrine 1 MG/ML Injection intramuscularly 0.3 mg once Re-initiate treatment only upon physician approval. 2022 active 09/10 diphenhydramine hydrochloride 0.5 MG/ML Injectable Solution intravenously 50.0 mg Re-initiate treatment only upon physician approval. 2022 active 09/10 famotidine 10 MG/ML Injectable Solution intravenously 20.0 mg Re-initiate treatment only upon physician approval. 2022 active 09/10 Hydrocortisone IV intravenously 100.0 mg Re-initiate treatment only upon physician approval. 2022 active 08/20 4 ML pembrolizumab 25 MG/ML Injection intravenously 200.0 mg once Dilute with NS or D5W to a final concentration of 1-10 mg/mL. Infuse with low protein binding filter (0.2 - 5 micron). Do not mix with other drugs. Do not shake. 08/20 on hold 08/20 famotidine 10 MG/ML Injectable Solution intravenously 20.0 mg Re-initiate treatment only upon physician approval. 2022 active 08/20 1 ML epinephrine 1 MG/ML Injection intramuscularly 0.3 mg once Re-initiate treatment only upon physician approval. 2022 active 08/20 Methylprednisol one IV intravenously 125.0 mg Re-initiate treatment only upon physician approval. 2022 active 08/20 diphenhydramine hydrochloride 0.5 MG/ML Injectable Solution intravenously 50.0 mg Re-initiate treatment only upon physician approval. 2022 active 08/20 Hydrocortisone IV intravenously 100.0 mg Re-initiate treatment only upon physician approval. 2022 active 07/30 diphenhydramine hydrochloride 0.5 MG/ML Injectable Solution intravenously 50.0 mg Re-initiate treatment only upon physician approval. 2022 active 07/30 famotidine 10 MG/ML Injectable Solution intravenously 20.0 mg Re-initiate treatment only upon physician approval. 2022 active 07/30 Hydrocortisone IV intravenously 100.0 mg Re-initiate treatment only upon physician approval. 2022 active 07/30 1 ML epinephrine 1 MG/ML Injection intramuscularly 0.3 mg once Re-initiate treatment only upon physician approval. 2022 active 07/30 Methylprednisol one IV intravenously 125.0 mg Re-initiate treatment only upon physician approval. 2022 active 07/09 diphenhydramine hydrochloride 0.5 MG/ML Injectable Solution intravenously 50.0 mg Re-initiate treatment only upon physician approval. 2022 active 07/09 Hydrocortisone IV intravenously 100.0 mg Re-initiate treatment only upon physician approval. 2022 active 07/09 famotidine 10 MG/ML Injectable Solution intravenously 20.0 mg Re-initiate treatment only upon physician approval. 2022 active 07/09 1 ML epinephrine 1 MG/ML Injection intramuscularly 0.3 mg once Re-initiate treatment only upon physician approval. 2022 active 07/09 Methylprednisol one IV intravenously 125.0 mg Re-initiate treatment only upon physician approval. 2022 active 05/28 Methylprednisol one IV intravenously 125.0 mg Re-initiate treatment only upon physician approval. 2022 active 05/28 famotidine 10 MG/ML Injectable Solution intravenously 20.0 mg Re-initiate treatment only upon physician approval. 2022 active 05/28 diphenhydramine hydrochloride 0.5 MG/ML Injectable Solution intravenously 50.0 mg Re-initiate treatment only upon physician approval. 2022 active 05/28 Hydrocortisone IV intravenously 100.0 mg Re-initiate treatment only upon physician approval. 2022 active 05/28 1 ML epinephrine 1 MG/ML Injection intramuscularly 0.3 mg once Re-initiate treatment only upon physician approval. 2022 active 05/07 1 ML epinephrine 1 MG/ML Injection intramuscularly 0.3 mg once Re-initiate treatment only upon physician approval. 2021 active 05/07 famotidine 10 MG/ML Injectable Solution intravenously 20.0 mg Re-initiate treatment only upon physician approval. 2021 active 05/07 diphenhydramine hydrochloride 0.5 MG/ML Injectable Solution intravenously 50.0 mg Re-initiate treatment only upon physician approval. 2021 active 05/07 Hydrocortisone IV intravenously 100.0 mg Re-initiate treatment only upon physician approval. 2021 active 05/07 Methylprednisol one IV intravenously 125.0 mg Re-initiate treatment only upon physician approval. 2021 active 04/15 famotidine 10 MG/ML Injectable Solution intravenously 20.0 mg Re-initiate treatment only upon physician approval. 2021 active 04/15 diphenhydramine hydrochloride 0.5 MG/ML Injectable Solution intravenously 50.0 mg Re-initiate treatment only upon physician approval. 2021 active 04/15 1 ML epinephrine 1 MG/ML Injection intramuscularly 0.3 mg once Re-initiate treatment only upon physician approval. 2021 active 04/15 Hydrocortisone IV intravenously 100.0 mg Re-initiate treatment only upon physician approval. 2021 active 04/15 Methylprednisol one IV intravenously 125.0 mg Re-initiate treatment only upon physician approval. 2021 active 03/26 1 ML epinephrine 1 MG/ML Injection intramuscularly 0.3 mg once Re-initiate treatment only upon physician approval. 2021 active 03/26 diphenhydramine hydrochloride 0.5 MG/ML Injectable Solution intravenously 50.0 mg Re-initiate treatment only upon physician approval. 2021 active 03/26 Methylprednisol one IV intravenously 125.0 mg Re-initiate treatment only upon physician approval. 2021 active 03/26 famotidine 10 MG/ML Injectable Solution intravenously 20.0 mg Re-initiate treatment only upon physician approval. 2021 active 03/26 Hydrocortisone IV intravenously 100.0 mg Re-initiate treatment only upon physician approval. 2021 active 03/05 Hydrocortisone IV intravenously 100.0 mg Re-initiate treatment only upon physician approval. 2021 active 03/05 famotidine 10 MG/ML Injectable Solution intravenously 20.0 mg Re-initiate treatment only upon physician approval. 2021 active 03/05 diphenhydramine hydrochloride 0.5 MG/ML Injectable Solution intravenously 50.0 mg Re-initiate treatment only upon physician approval. 2021 active 03/05 1 ML epinephrine 1 MG/ML Injection intramuscularly 0.3 mg once Re-initiate treatment only upon physician approval. 2021 active 03/05 Methylprednisol one IV intravenously 125.0 mg Re-initiate treatment only upon physician approval. 2021 active 02/12 famotidine 10 MG/ML Injectable Solution intravenously 20.0 mg Re-initiate treatment only upon physician approval. 2021 active 02/12 1 ML epinephrine 1 MG/ML Injection intramuscularly 0.3 mg once Re-initiate treatment only upon physician approval. 2021 active 02/12 Methylprednisol one IV intravenously 125.0 mg Re-initiate treatment only upon physician approval. 2021 active 02/12 Hydrocortisone IV intravenously 100.0 mg Re-initiate treatment only upon physician approval. 2021 active 02/12 diphenhydramine hydrochloride 0.5 MG/ML Injectable Solution intravenously 50.0 mg Re-initiate treatment only upon physician approval. 2021 active 01/22 Hydrocortisone IV intravenously 100.0 mg Re-initiate treatment only upon physician approval. 2021 active 01/22 Methylprednisol one IV intravenously 125.0 mg Re-initiate treatment only upon physician approval. 2021 active 01/22 1 ML epinephrine 1 MG/ML Injection intramuscularly 0.3 mg once Re-initiate treatment only upon physician approval. 2021 active 01/22 famotidine 10 MG/ML Injectable Solution intravenously 20.0 mg Re-initiate treatment only upon physician approval. 2021 active 01/22 diphenhydramine hydrochloride 0.5 MG/ML Injectable Solution intravenously 50.0 mg Re-initiate treatment only upon physician approval. 2021 active 01/21 prochlorperazin e 5 MG Oral Tablet 2021 active Problems Diagnosis Status Date of Diagnosis Resolution Date Poor appetite Active Renal cell carcinoma (disorder) Active Cancer with lung metastasis Active Renal cell carcinoma (disorder) Active Cancer with lung metastasis Active Liver metastasis Active Chronic kidney disease Active Oropharyngeal dysphagia Active Other group home (current) drug therapy Active Acute kidney failure Active Diarrhea (finding) Active 04/21/2022 Fatigue Active Vital Signs Date Type Value 10/28/2022 Heart Beat 75.00 10/28/2022 Body Temperature 97.70 10/28/2022 Height 68.00 10/28/2022 BMI 27.03 10/28/2022 Weight 177.80 10/28/2022 BSA 1.94 10/28/2022 Oxygen Saturation 98.00 10/28/2022 Intravascular Systolic 136 10/28/2022 Intravascular Diastolic 90 10/28/2022 Pain Scale 0.00 10/28/2022 Respiratory Rate 16.00 11/11/2022 BSA 1.94 11/11/2022 BMI 26.79 11/11/2022 Height 68.00 11/11/2022 Pain Scale 2.00 11/11/2022 Intravascular Systolic 144 11/11/2022 Intravascular Diastolic 72 11/11/2022 Oxygen Saturation 97.00 11/11/2022 Respiratory Rate 16.00 11/11/2022 Heart Beat 68.00 11/11/2022 Body Temperature 97.60 11/11/2022 Weight 176.20 11/12/2022 Pain Scale 0.00 11/12/2022 Intravascular Systolic 140 11/12/2022 Intravascular Diastolic 71 11/12/2022 Oxygen Saturation 98.00 11/12/2022 Respiratory Rate 16.00 11/12/2022 Heart Beat 71.00 11/12/2022 Body Temperature 97.10 11/12/2022 Height 68.00 12/03/2022 Body Temperature 97.00 12/03/2022 Heart Beat 67.00 12/03/2022 Respiratory Rate 18.00 12/03/2022 Oxygen Saturation 98.00 12/03/2022 BSA 1.91 12/03/2022 Pain Scale 0.00 12/03/2022 Weight 170.60 12/03/2022 Height 68.00 12/03/2022 BMI 25.94 12/03/2022 Intravascular Systolic 138 12/03/2022 Intravascular Diastolic 76 12/24/2022 BMI 26.09 12/24/2022 Height 68.00 12/24/2022 Weight 171.60 12/24/2022 Pain Scale 0.00 12/24/2022 BSA 1.92 12/24/2022 Oxygen Saturation 96.00 12/24/2022 Respiratory Rate 16.00 12/24/2022 Heart Beat 59.00 12/24/2022 Body Temperature 95.00 12/24/2022 Intravascular Systolic 152 12/24/2022 Intravascular Diastolic 78 01/14/2023 BSA 1.92 01/14/2023 BMI 26.33 01/14/2023 Height 68.00 01/14/2023 Weight 173.20 01/14/2023 Pain Scale 0.00 01/14/2023 Intravascular Systolic 132 01/14/2023 Intravascular Diastolic 78 01/14/2023 Oxygen Saturation 98.00 01/14/2023 Respiratory Rate 16.00 01/14/2023 Body Temperature 97.80 01/14/2023 Heart Beat 59.00 02/04/2023 Body Temperature 95.90 02/04/2023 Heart Beat 57.00 02/04/2023 Respiratory Rate 16.00 02/04/2023 Oxygen Saturation 98.00 02/04/2023 BSA 1.92 02/04/2023 Pain Scale 0.00 02/04/2023 Weight 172.00 02/04/2023 Height 68.00 02/04/2023 BMI 26.15 02/04/2023 Intravascular Systolic 158 02/04/2023 Intravascular Diastolic 84 02/25/2023 Body Temperature 97.50 02/25/2023 Heart Beat 59.00 02/25/2023 BSA 1.91 02/25/2023 BMI 25.79 02/25/2023 Height 68.00 02/25/2023 Weight 169.60 02/25/2023 Pain Scale 2.00 02/25/2023 Intravascular Systolic 146 02/25/2023 Intravascular Diastolic 78 02/25/2023 Oxygen Saturation 98.00 02/25/2023 Respiratory Rate 16.00 03/18/2023 Body Temperature 97.60 03/18/2023 BMI 25.45 03/18/2023 Height 68.00 03/18/2023 Weight 167.40 03/18/2023 BSA 1.90 03/18/2023 Intravascular Systolic 142 03/18/2023 Intravascular Diastolic 64 03/18/2023 Oxygen Saturation 98.00 03/18/2023 Respiratory Rate 16.00 03/18/2023 Heart Beat 66.00 03/18/2023 Pain Scale 2.00 04/08/2023 Height 68.00 04/08/2023 BMI 25.39 04/08/2023 BSA 1.89 04/08/2023 Body Temperature 97.80 04/08/2023 Heart Beat 58.00 04/08/2023 Respiratory Rate 16.00 04/08/2023 Oxygen Saturation 98.00 04/08/2023 Intravascular Systolic 132 04/08/2023 Intravascular Diastolic 76 04/08/2023 Pain Scale 0.00 04/08/2023 Weight 167.00 04/21/2023 Intravascular Systolic 138 04/21/2023 Intravascular Diastolic 74 04/21/2023 Oxygen Saturation 97.00 04/21/2023 Respiratory Rate 16.00 04/21/2023 Heart Beat 79.00 04/21/2023 Pain Scale 0.00 04/21/2023 BSA 1.88 04/21/2023 BMI 25.13 04/21/2023 Height 68.00 04/21/2023 Weight 165.30 04/21/2023 Body Temperature 96.20 04/29/2023 BSA 1.89 04/29/2023 BMI 25.39 04/29/2023 Height 68.00 04/29/2023 Weight 167.00 04/29/2023 Pain Scale 0.00 04/29/2023 Intravascular Systolic 140 04/29/2023 Intravascular Diastolic 78 04/29/2023 Oxygen Saturation 97.00 04/29/2023 Respiratory Rate 16.00 04/29/2023 Body Temperature 96.90 04/29/2023 Heart Beat 60.00 05/20/2023 Body Temperature 97.20 05/20/2023 Heart Beat 60.00 05/20/2023 Respiratory Rate 16.00 05/20/2023 Oxygen Saturation 97.00 05/20/2023 BSA 1.91 05/20/2023 Pain Scale 0.00 05/20/2023 Weight 170.20 05/20/2023 Height 68.00 05/20/2023 BMI 25.88 05/20/2023 Intravascular Systolic 152 05/20/2023 Intravascular Diastolic 84 08/12/2023 BMI 26.30 08/12/2023 Height 68.00 08/12/2023 Weight 173.00 08/12/2023 Pain Scale 0.00 08/12/2023 BSA 1.92 08/12/2023 Oxygen Saturation 98.00 08/12/2023 Respiratory Rate 16.00 08/12/2023 Heart Beat 56.00 08/12/2023 Body Temperature 96.50 08/12/2023 Intravascular Systolic 144 08/12/2023 Intravascular Diastolic 78 09/02/2023 BSA 1.94 09/02/2023 BMI 26.85 09/02/2023 Height 68.00 09/02/2023 Weight 176.60 09/02/2023 Pain Scale 0.00 09/02/2023 Intravascular Systolic 130 09/02/2023 Intravascular Diastolic 62 09/02/2023 Oxygen Saturation 98.00 09/02/2023 Respiratory Rate 16.00 09/02/2023 Body Temperature 95.90 09/02/2023 Heart Beat 54.00 09/23/2023 Body Temperature 96.70 09/23/2023 Heart Beat 63.00 09/23/2023 Respiratory Rate 16.00 09/23/2023 Oxygen Saturation 97.00 09/23/2023 Intravascular Systolic 142 09/23/2023 Intravascular Diastolic 90 09/23/2023 Pain Scale 0.00 09/23/2023 Weight 175.00 09/23/2023 Height 68.00 09/23/2023 BMI 26.61 09/23/2023 BSA 1.93 11/04/2023 Body Temperature 98.60 11/04/2023 Heart Beat 66.00 11/04/2023 Respiratory Rate 16.00 11/04/2023 Oxygen Saturation 97.00 11/04/2023 BSA 1.92 11/04/2023 Pain Scale 0.00 11/04/2023 Weight 172.80 11/04/2023 Height 68.00 11/04/2023 BMI 26.27 11/04/2023 Intravascular Systolic 142 11/04/2023 Intravascular Diastolic 78 11/26/2023 BMI 26.00 11/26/2023 Height 68.00 11/26/2023 Weight 171.00 11/26/2023 Pain Scale 0.00 11/26/2023 BSA 1.91 11/26/2023 Oxygen Saturation 97.00 11/26/2023 Respiratory Rate 16.00 11/26/2023 Heart Beat 58.00 11/26/2023 Body Temperature 96.40 11/26/2023 Intravascular Systolic 132 11/26/2023 Intravascular Diastolic 78 12/16/2023 Intravascular Systolic 180 12/16/2023 Intravascular Diastolic 90 12/16/2023 BSA 1.91 12/16/2023 BMI 25.80 12/16/2023 Height 68.00 12/16/2023 Weight 169.70 12/16/2023 Pain Scale 0.00 12/16/2023 Oxygen Saturation 97.00 12/16/2023 Respiratory Rate 16.00 12/16/2023 Body Temperature 97.80 12/16/2023 Heart Beat 64.00 01/06/2024 Body Temperature 96.20 01/06/2024 Heart Beat 58.00 01/06/2024 Respiratory Rate 16.00 01/06/2024 Oxygen Saturation 97.00 01/06/2024 BSA 1.89 01/06/2024 Pain Scale 2.00 01/06/2024 Weight 166.80 01/06/2024 Height 68.00 01/06/2024 BMI 25.36 01/06/2024 Intravascular Systolic 136 01/06/2024 Intravascular Diastolic 72 01/27/2024 Body Temperature 96.90 01/27/2024 Heart Beat 61.00 01/27/2024 BSA 1.90 01/27/2024 BMI 25.54 01/27/2024 Height 68.00 01/27/2024 Weight 168.00 01/27/2024 Pain Scale 0.00 01/27/2024 Intravascular Systolic 126 01/27/2024 Intravascular Diastolic 78 01/27/2024 Oxygen Saturation 98.00 01/27/2024 Respiratory Rate 16.00 02/17/2024 Body Temperature 97.50 02/17/2024 BMI 24.97 02/17/2024 Height 68.00 02/17/2024 Weight 164.20 02/17/2024 BSA 1.88 02/17/2024 Intravascular Systolic 138 02/17/2024 Intravascular Diastolic 72 02/17/2024 Oxygen Saturation 98.00 02/17/2024 Respiratory Rate 16.00 02/17/2024 Heart Beat 51.00 02/17/2024 Pain Scale 2.00 03/03/2024 BMI 25.42 03/03/2024 Height 68.00 03/03/2024 Weight 167.20 03/03/2024 Pain Scale 0.00 03/03/2024 BSA 1.89 03/03/2024 Oxygen Saturation 95.00 03/03/2024 Respiratory Rate 16.00 03/03/2024 Heart Beat 59.00 03/03/2024 Body Temperature 96.60 03/03/2024 Intravascular Systolic 148 03/03/2024 Intravascular Diastolic 82 03/09/2024 BSA 1.89 03/09/2024 BMI 25.44 03/09/2024 Height 68.00 03/09/2024 Weight 167.30 03/09/2024 Pain Scale 0.00 03/09/2024 Intravascular Systolic 170 03/09/2024 Intravascular Diastolic 81 03/09/2024 Oxygen Saturation 98.00 03/09/2024 Respiratory Rate 16.00 03/09/2024 Body Temperature 95.80 03/09/2024 Heart Beat 61.00 03/30/2024 Intravascular Systolic 170 03/30/2024 Intravascular Diastolic 84 03/30/2024 Pain Scale 8.00 03/30/2024 Weight 158.00 03/30/2024 Height 68.00 03/30/2024 BMI 24.02 03/30/2024 BSA 1.85 03/30/2024 Intravascular Systolic 162 03/30/2024 Intravascular Diastolic 76 03/30/2024 Body Temperature 96.50 03/30/2024 Heart Beat 57.00 03/30/2024 Respiratory Rate 16.00 03/30/2024 Oxygen Saturation 98.00 04/21/2024 BMI 25.48 04/21/2024 Height 68.00 04/21/2024 Weight 167.60 04/21/2024 Pain Scale 0.00 04/21/2024 BSA 1.90 04/21/2024 Oxygen Saturation 98.00 04/21/2024 Respiratory Rate 18.00 04/21/2024 Heart Beat 61.00 04/21/2024 Body Temperature 97.80 04/21/2024 Intravascular Systolic 176 04/21/2024 Intravascular Diastolic 80 05/11/2024 BSA 1.90 05/11/2024 BMI 25.50 05/11/2024 Height 68.00 05/11/2024 Weight 167.70 05/11/2024 Pain Scale 0.00 05/11/2024 Intravascular Systolic 142 05/11/2024 Intravascular Diastolic 92 05/11/2024 Oxygen Saturation 98.00 05/11/2024 Respiratory Rate 16.00 05/11/2024 Body Temperature 97.50 05/11/2024 Heart Beat 59.00 06/01/2024 BMI 25.71 06/01/2024 Height 68.00 06/01/2024 Weight 169.10 06/01/2024 Pain Scale 0.00 06/01/2024 BSA 1.90 06/01/2024 Oxygen Saturation 97.00 06/01/2024 Respiratory Rate 16.00 06/01/2024 Heart Beat 64.00 06/01/2024 Body Temperature 97.50 06/01/2024 Intravascular Systolic 178 06/01/2024 Intravascular Diastolic 80 08/24/2024 BSA 1.83 08/24/2024 Body Temperature 97.40 08/24/2024 Heart Beat 66.00 08/24/2024 Respiratory Rate 16.00 08/24/2024 Oxygen Saturation 97.00 08/24/2024 Intravascular Systolic 116 08/24/2024 Intravascular Diastolic 72 08/24/2024 Pain Scale 0.00 08/24/2024 Weight 154.30 08/24/2024 BMI 23.46 08/24/2024 Height 68.00 09/14/2024 BSA 1.86 09/14/2024 Body Temperature 97.10 09/14/2024 Heart Beat 64.00 09/14/2024 Respiratory Rate 16.00 09/14/2024 Oxygen Saturation 95.00 09/14/2024 Intravascular Systolic 130 09/14/2024 Intravascular Diastolic 86 09/14/2024 Pain Scale 0.00 09/14/2024 Weight 160.60 09/14/2024 BMI 24.42 09/14/2024 Height 68.00 09/22/2024 Body Temperature 97.20 09/22/2024 Heart Beat 63.00 09/22/2024 Respiratory Rate 16.00 09/22/2024 Oxygen Saturation 97.00 09/22/2024 Intravascular Systolic 135 09/22/2024 Intravascular Diastolic 76 09/22/2024 Pain Scale 0.00 09/22/2024 Height 68.00 10/13/2024 BSA 1.88 10/13/2024 Height 68.00 10/13/2024 Weight 165.20 10/13/2024 Pain Scale 0.00 10/13/2024 Intravascular Systolic 162 10/13/2024 Intravascular Diastolic 81 10/13/2024 Oxygen Saturation 96.00 10/13/2024 Respiratory Rate 16.00 10/13/2024 Heart Beat 61.00 10/13/2024 Body Temperature 97.20 10/13/2024 BMI 25.12 11/20/2024 Body Temperature 97.30 11/20/2024 Heart Beat 65.00 11/20/2024 Respiratory Rate 16.00 11/20/2024 Oxygen Saturation 96.00 11/20/2024 BSA 1.88 11/20/2024 Pain Scale 0.00 11/20/2024 Weight 164.20 11/20/2024 Height 68.00 11/20/2024 BMI 24.97 11/20/2024 Intravascular Systolic 158 11/20/2024 Intravascular Diastolic 78 12/20/2024 Height 68.00 12/20/2024 BMI 23.70 12/20/2024 BSA 1.84 12/20/2024 Body Temperature 97.40 12/20/2024 Heart Beat 67.00 12/20/2024 Respiratory Rate 16.00 12/20/2024 Oxygen Saturation 100.00 12/20/2024 Intravascular Systolic 122 12/20/2024 Intravascular Diastolic 62 12/20/2024 Pain Scale 2.00 12/20/2024 Weight 155.90 Notes Section * Thoracic Visit Note Patient Name:??KUMAR MALONE Date of :??1945 Date:??10/28/2022 THORACIC VISIT NOTE Gio; I saw in consultation at your request on??10/28/2022 Mr. London??Lupillo??regarding 2??right lung metastases from renal cell carcinoma.?? As you know,??he is a 77-year-old gentleman??who was diagnosed with??a??renal cell carcinoma of the right kidney??in November 2021.?? A CT scan of the chest done in December 2021 showed??2 suspicious lung lesions??in the right upper and right lower lobe lung??biopsy of the right lower lobe lung nodule was positive for??metastatic renal cell carcinoma.?? He was treated with??Keytruda/Lenvima. ??He underwent a nephrectomy in May 2022. His most recent PET CT scan dated 10/20/2022 was reviewed.?? The right upper lobe nodule has increased in size??and now measures 1.6 x 1.2 so??previously 1.1 x 1.0??cm??the right lower lobe lung nodule??is also increased in size now measuring 2.2 x 1.7 cm??previously 1.0 x 9.9 cm. The imaging studies were reviewed in details with the patient.?? The right lower lung nodules is potentially??amenable to a wedge resection. ??The right upper lobe nodule is clearly unresectable??as it??deep in the right upper lobe lung close to the pulmonary artery. ??This would require??at a minimum a right upper lobectomy. My recommendation is not to proceed with surgical resection??and consider SBRT.?? He is scheduled to be seen in radiation oncology tomorrow. I am happy to see him as needed.?? I hope this at your satisfaction. Sincerely, Giancarlo Lowe MD [facility] Giancarlo Lowe MD Copy to:??Ulises Dowell MD FAX Beto Arguelles MD (Referring) Electronically signed by Giancarlo Lowe MD 10/30/2022 11:08 CDT
--- OUTSIDE RECORDS SUMMARY | 2024-12-31 11:37 | XMS_ITS ---
Author Name Interface, [employer] Address [place] [address] [facility] Address [place] [address] Allergies and Adverse Reactions Plan Reason for Visit Encounters Diagnostic Results Medications Problems Vital Signs Notes Section
--- OUTSIDE RECORDS SUMMARY | 2024-12-31 11:37 | XMS_ITS ---
Author Name Interface, [id number] lity Address [address] [facility] [address] [address] [facility] Address [address] [facility] [address] [address] Allergies and Adverse Reactions Medication/Group Name Reaction Severity Date metformin 12/20/2024 Sulfamide Mild to moderate 12/20/2024 Plan Date Type Value 11/20/2024 APPOINTMENT LAB 15 MIN 11/20/2024 APPOINTMENT OV 20 MIN 10/13/2024 APPOINTMENT LAB 10 MIN 10/13/2024 APPOINTMENT OV 20 MIN 10/13/2024 APPOINTMENT LAB 10 MIN 10/13/2024 APPOINTMENT OV 20 MIN 10/13/2024 LABORDER CMP 10/13/2024 LABORDER TSH w/ reflex to free T4 10/13/2024 LABORDER CBC w/ auto diff 10/13/2024 LABORDER Protein/creatini ne ratio, random urine panel 11/20/2024 LABORDER Protein/creatini ne ratio, random urine panel 11/20/2024 LABORDER CBC w/ auto diff 11/20/2024 LABORDER TSH w/ reflex to free T4 11/20/2024 LABORDER CMP Reason for Visit OV 20 MIN Encounters Date Name 10/13/2024 Acute kidney failure 10/13/2024 Cancer with lung met astasis 10/13/2024 Liver metastasis 10/13/2024 Renal cell carcinoma (disorder) Diagnostic Results Date Type Test Units Lower Limit Upper Limit Result Flag Comments Status Ordered By Specimen Source Lab Address 10/13 CBC w/ auto diff WBC K/uL 3.0 8.9 4.2 FINAL [facility] , [address] [facility] [address] [place] [id number] 0 10/13 CBC w/ auto diff HGB g/dL 12.5 16.6 12.3 Low FINAL [facility] [place] [facility] [place] [facility] , [address] [place] [id number] 0 10/13 CBC w/ auto diff PLT K/uL 113.0 364.0 162 FINAL [facility] [place] [facility] [place] [facility] , [address] [place] [id number] 0 10/13 CBC w/ auto diff Tatyana # (ANC) K/uL 1.6 6.6 2.0 FINAL [facility] [place] [facility] [place] [facility] , [address] [place] [id number] 0 10/13 CBC w/ auto diff Tatyana % % 43.0 74.0 46.9 FINAL [facility] [place] [facility] [place] [facility] , [address] [place] [id number] 0 10/13 CBC w/ auto diff IG % % 0.0 0.5 0.2 FINAL [facility] [place] [facility] [place] [facility] , [address] [place] [id number] 0 10/13 CBC w/ auto diff IG # K/uL 0.0 0.03 0.01 FINAL [facility] [place] [facility] [place] [facility] , [address] [place] [id number] 0 10/13 CBC w/ auto diff LY % % 14.0 41.0 43.1 High FINAL [facility] [place] [facility] [place] [facility] , [address] [place] [id number] 0 10/13 CBC w/ auto diff MO % % 6.0 15.0 6.9 FINAL [facility] [place] [facility] [place] [facility] , [address] [place] [id number] 0 10/13 CBC w/ auto diff EO % % 0.0 7.0 2.4 FINAL [facility] [place] [facility] [place] [facility] , [address] [place] [id number] 0 10/13 CBC w/ auto diff BA % % 0.0 2.0 0.5 FINAL [facility] [place] [facility] [place] [facility] , [address] [place] [id number] 0 10/13 CBC w/ auto diff LY # K/uL 0.4 3.6 1.8 FINAL [facility] [place] [facility] [place] [facility] , [address] [place] [id number] 0 10/13 CBC w/ auto diff MO # K/uL 0.2 1.3 0.3 FINAL [facility] [place] [facility] [place] [facility] , [address] [place] [id number] 0 10/13 CBC w/ auto diff EO # K/uL 0.0 0.6 0.1 FINAL [facility] [place] [facility] [place] [facility] , [address] [place] [id number] 0 10/13 CBC w/ auto diff BA # K/uL 0.0 0.2 0.0 FINAL [facility] [place] [facility] [place] [facility] , [address] [place] [id number] 0 10/13 CBC w/ auto diff NRBC % #/100W BC 0.0 0.2 0.0 FINAL [facility] [place] [facility] [place] [facility] , [address] [place] [id number] 0 10/13 CBC w/ auto diff RBC M/uL 4.2 5.6 3.70 Low FINAL [facility] [place] [facility] [place] [facility] , [address] [place] [id number] 0 10/13 CBC w/ auto diff HCT % 39.0 49.0 36.8 Low FINAL [facility] [place] [facility] [place] [facility] , [address] [place] [id number] 0 10/13 CBC w/ auto diff MCV fL 80.0 104.0 99.5 FINAL [facility] [place] [facility] [place] [facility] , [address] [place] [phone] 0 10/13 CBC w/ auto diff MCH pg 26.0 35.0 33.2 FINAL [facility] [place] [facility] [place] [facility] , [address] [place] [id number] 0 10/13 CBC w/ auto diff MCHC g/dL 30.0 35.0 33.4 FINAL [facility] [place] [facility] [place] [facility] , [address] [place] [phone] 0 10/13 CBC w/ auto diff MPV fL 9.5 13.4 10.4 FINAL [facility] [place] [facility] [place] [facility] , [address] [place] [id number] 0 10/13 CBC w/ auto diff RDW % 11.3 15.6 15.20 FINAL [facility] [place] [facility] [place] [facility] , [address] [place] [id number] 0 10/13 CMP Album in g/dL 3.5 5.0 2.9 Low FINAL [facility] * [place] [facility] [place] [facility] , [address] [facility] [id number] 0 10/13 CMP Alkal ine phosp hatas e U/L 36.0 125.0 106 FINAL Gio Lopez * [facility] , [address] [facility] [id number] 0 10/13 CMP ALT/S GPT U/L 0.0 49.0 32 FINAL [facility]io Lopez * [facility] , [address] [facility] [id number] 0 10/13 CMP AST/S GOT U/L 17.0 59.0 48 FINAL Gio Lopez * [facility] [place], [place] , [address] [facility] [place] [place] [address] [facility] [id number] 0 10/13 CMP BUN mg/dL 9.0 20.0 20.0 FINAL Gio Lopez * [facility] , [address] [facility] [id number] 0 10/13 CMP Calci um mg/dL 8.4 10.2 7.4 Critica l process chemist ry value tasia Dai FINAL Gio Lopez * [facility] [place], [place] , [address] [facility] [id number] 0 10/13 CMP Chlor viola mmol/L 96.0 107.0 103 FINAL Gio Lopez * [facility] , [address] [facility] [id number] 0 10/13 CMP CO2 mmol/L 22.0 30.0 [...] hour stability window. FINAL Gio Lopez * [facility] , [address] [facility] [id number] 0 10/13 CMP Creat inine mg/dL 0.66 1.25 1.50 High FINAL Gio Lopez * [facility] , [address] [facility] [id number] 0 10/13 CMP GFR estim ate ml/min /1.73m ^2 46.7 Low GFR is calculate d using the CKD-EPI equation. FINAL Gio Lopez * [facility] , [address] [facility] [id number] 0 10/13 CMP Gluco se mg/dL 74.0 100.0 110 High FINAL Gio Lopez * [facility] , [address] [facility] [id number] 0 10/13 CMP Potas sium mmol/L 3.5 5.1 4.4 FINAL Gio Lopez * [facility] , [address] [facility] [id number] 0 10/13 CMP Sodiu m mmol/L 137.0 145.0 136 Low FINAL Gio Lopez * [facility] , [address] [facility] [id number] 0 10/13 CMP Bilir ubin, total mg/dL 0.2 1.3 0.4 FINAL Gio Lopez * [facility] , [address] [facility] [id number] 0 10/13 CMP Total prote in g/dL 6.3 8.2 5.4 Low FINAL Gio John * [facility] , [address] [facility] [id number] 0 10/13 TSH w/ refle x to free T4 TSH uIU/mL 0.47 4.68 1.65 FINAL Gio Lopez * [facility] , [address] [facility] [id number] 0 10/13 Prote in/cr eatin ine ratio , kierrao m urine panel CREAT ININE , KIERRAO M URINE mg/dL 20.0 320.0 45 FINAL Gio VALDES [facility] [address] [place] [id number] 4 10/13 Prote in/cr eatin ine ratio , kierrao m urine panel PROTE IN/CR EATIN INE RATIO mg/gcr eat 25.0 148.0 4556 High FINAL Gio VALDES [facility] [address] [place] [id number] 4 10/13 Prote in/cr eatin ine ratio , kierrao m urine panel PROTE IN/CR EATIN INE RATIO mg/mgc reat 0.025 0.148 4.556 High FINAL Gio VALDES [facility] [address] [place] [id number] 4 10/13 Prote in/cr eatin ine ratio , mario m urine panel PROTE IN, TOTAL , KIERRAO M UR mg/dL 5.0 25.0 205 High Verified by repeat analysis. FINAL Gio VALDES [facility] [address] [place] [id number] 4 11/20 TSH w/ refle x to free T4 TSH uIU/mL 0.47 4.68 1.59 FINAL Gio Lopez * [facility] , [address] [facility] [id number] 0 11/20 CMP Album in g/dL 3.5 5.0 2.7 Low FINAL Gio Lopez * [facility] , [address] [facility] [id number] 0 11/20 CMP Alkal ine phosp hatas e U/L 36.0 125.0 120 FINAL Gio Lopez * [facility] , [address] [facility] [id number] 0 11/20 CMP ALT/S GPT U/L 0.0 49.0 33 FINAL Gio Lopez * [facility] , [address] [facility] [id number] 0 11/20 CMP AST/S GOT U/L 17.0 59.0 45 FINAL Gio Lopez * [facility] , [address] [facility] [id number] 0 11/20 CMP BUN mg/dL 9.0 20.0 26.0 High FINAL Gio Lopez * [facility] , [address] [facility] [id number] 0 11/20 CMP Calci um mg/dL 8.4 10.2 7.4 Criti ninoska Low FINAL Gio Lopez * [facility] , [address] [facility] [id number] 0 11/20 CMP Chlor viola mmol/L 96.0 107.0 107 FINAL Gio Lopez * [facility] , [address] [facility] [id number] 0 11/20 CMP CO2 mmol/L 22.0 30.0 [...] hour stability window. FINAL Gio Lopez * [facility] , [address] [facility] [id number] 0 11/20 CMP Creat inine mg/dL 0.66 1.25 1.60 High FINAL Gio Lopez * [facility] , [address] [facility] [id number] 0 11/20 CMP GFR estim ate ml/min /1.73m ^2 43.2 Low GFR is calculate d using the CKD-EPI equation. FINAL Gio Lopez * [facility] , [address] [facility] [id number] 0 11/20 CMP Gluco se mg/dL 74.0 100.0 99 FINAL Gio Lopez * [facility] , [address] [facility] [id number] 0 11/20 CMP Potas sium mmol/L 3.5 5.1 4.3 FINAL Gio Lopez * [facility] , [address] [facility] [id number] 0 11/20 CMP Sodiu m mmol/L 137.0 145.0 137 FINAL Gio Lopez * [facility] , [address] [facility] [id number] 0 11/20 CMP Bilir ubin, total mg/dL 0.2 1.3 0.5 FINAL Gio Lopez * [facility] , [address] [facility] [id number] 0 11/20 CMP Total prote in g/dL 6.3 8.2 5.1 Low FINAL Gio Lopez * [facility] , [address] [facility] [id number] 0 11/20 CBC w/ auto diff WBC K/uL 3.0 8.9 6.0 FINAL Gio Lopez [facility] , [address] [facility] [id number] 0 11/20 CBC w/ auto diff HGB g/dL 12.5 16.6 11.3 Low FINAL [facility] [place] [facility] [place] [facility] , [address] [place] [id number] 0 11/20 CBC w/ auto diff PLT K/uL 113.0 364.0 139 FINAL [facility] [place] [facility] [place] [facility] , [address] [place] [id number] 0 11/20 CBC w/ auto diff Tatyana # (ANC) K/uL 1.6 6.6 4.0 FINAL [facility] [place] [facility] [place] [facility] , [address] [place] [id number] 0 11/20 CBC w/ auto diff Tatyana % % 43.0 74.0 67.3 FINAL [facility] [place] [facility] [place] [facility] , [address] [place] [id number] 0 11/20 CBC w/ auto diff IG % % 0.0 0.5 0.2 FINAL [facility] [place] [facility] [place] [facility] , [address] [place] [id number] 0 11/20 CBC w/ auto diff IG # K/uL 0.0 0.03 0.01 FINAL [facility] [place] [facility] [place] [facility] , [address] [place] [id number] 0 11/20 CBC w/ auto diff LY % % 14.0 41.0 23.4 FINAL [facility] [place] [facility] [place] [facility] , [address] [place] [id number] 0 11/20 CBC w/ auto diff MO % % 6.0 15.0 7.6 FINAL [facility] [place] [facility] [place] [facility] , [address] [place] [id number] 0 11/20 CBC w/ auto diff EO % % 0.0 7.0 1.3 FINAL [facility] [place] [facility] [place] [facility] , [address] [place] [id number] 0 11/20 CBC w/ auto diff BA % % 0.0 2.0 0.2 FINAL [facility] [place] [facility] [place] [facility] , [address] [place] [id number] 0 11/20 CBC w/ auto diff LY # K/uL 0.4 3.6 1.4 FINAL [facility] [place] [facility] [place] [facility] , [address] [place] [id number] 0 11/20 CBC w/ auto diff MO # K/uL 0.2 1.3 0.5 FINAL [facility] [place] [facility] [place] [facility] , [address] [place] [id number] 0 11/20 CBC w/ auto diff EO # K/uL 0.0 0.6 0.1 FINAL [facility] [place] [facility] [place] [facility] , [address] [place] [id number] 0 11/20 CBC w/ auto diff BA # K/uL 0.0 0.2 0.0 FINAL [facility] [place] [facility] [place] [facility] , [address] [place] [id number] 0 11/20 CBC w/ auto diff NRBC % #/100W BC 0.0 0.2 0.0 FINAL [facility] [place] [facility] [place] [facility] , [address] [place] [id number] 0 11/20 CBC w/ auto diff RBC M/uL 4.2 5.6 3.24 Low FINAL [facility] [place] [facility] [place] [facility] , [address] [place] [id number] 0 11/20 CBC w/ auto diff HCT % 39.0 49.0 33.6 Low FINAL [facility] [place] [facility] [place] [facility] , [address] [place] [id number] 0 11/20 CBC w/ auto diff MCV fL 80.0 104.0 103.7 FINAL [facility] [place] [facility] [place] [facility] , [address] [place] [id number] 0 11/20 CBC w/ auto diff MCH pg 26.0 35.0 34.9 FINAL [facility] [place] [facility] [place] [facility] , [address] [place] [id number] 0 11/20 CBC w/ auto diff MCHC g/dL 30.0 35.0 33.6 FINAL [facility] [place] [facility] [place] [facility] , [address] [place] [id number] 0 11/20 CBC w/ auto diff MPV fL 9.5 13.4 10.2 FINAL [facility] [place] [facility] [place] [facility] , [address] [place] [phone] 0 11/20 CBC w/ auto diff RDW % 11.3 15.6 16.60 High FINAL [facility] [place] [facility] [place] [facility] , [address] [place] [id number] 0 11/20 Prote in/cr eatin ine ratio , rando m urine panel CREAT ININE , RANDO M URINE mg/dL 20.0 320.0 41 FINAL Gio VALDES, [employer] [address] [facility] [id number] 4 11/20 Prote in/cr eatin ine ratio , rando m urine panel PROTE IN/CR EATIN INE RATIO mg/gcr eat 25.0 148.0 3634 High FINAL Gio VALDES, [employer] [facility] [address] [facility] [id number] 4 11/20 Prote in/cr eatin ine ratio , rando m urine panel PROTE IN/CR EATIN INE RATIO mg/mgc reat 0.025 0.148 3.634 High FINAL Gio VALDES, [employer] [facility] [address] [facility] [id number] 4 11/20 Prote in/cr eatin ine ratio , rando m urine panel PROTE IN, TOTAL , RANDO M UR mg/dL 5.0 25.0 149 High FINAL Gio VALDES, [employer] [facility] [place] [address] [facility] [id number] 4 Medications Date Name Route Dose Frequency [...] kidney disease Active Oropharyngeal dysphagia Active Other mcfp (current) drug therapy Active Acute kidney failure Active Diarrhea (finding) Active 04/21/2022 Fatigue Active Vital Signs Date Type Value 10/13/2024 Body Temperature 97.20 10/13/2024 Heart Beat 61.00 10/13/2024 Respiratory Rate 16.00 10/13/2024 Oxygen Saturation 96.00 10/13/2024 BSA 1.88 10/13/2024 Pain Scale 0.00 10/13/2024 Weight 165.20 10/13/2024 Height 68.00 10/13/2024 BMI 25.12 10/13/2024 Intravascular Systolic 162 10/13/2024 Intravascular Diastolic 81 Notes Section * Med Onc Follow-up Note Patient Name: KUMAR MALONE Date Of : 1945 Today's Provider:?Gio Lopez MD Date of Service:?11/20/2024 Attending Physician:?Gio Lopez (Hematology/Oncology) Referring Provider: Michael Arguelles MD (Urology) HEMATOLOGY/ MEDICAL ONCOLOGY FOLLOW UP VISIT Reason for Visit Oligometastatic renal cell carcinoma Assessment 1.?Oligometastatic clear cell renal cell carcinoma -Was on first-line systemic therapy in the form of Keytruda and Lenvima since early January 2022 to August 2024 -??Underwent cytoreductive nephrectomy on June 16, 2022. Surgical pathology showed grade 3 clear-cell renal cell carcinoma measuring 9.5 cm in the greatest dimension with invasion into the perinephric in the high lower adipose tissue. Surgical resection margins were negative. -The patient had a small isolated chest wall metastasis in October 2023 that was treated with SBRT while continuing first-line systemic therapy.?? PET scan from??January 2024 was negative -PET scan from 04/2024 showed??a new??isolated??small chest wall metastasis measuring 0.7 cm. ??Thepatient is asymptomatic.?? He underwent another course of SBRT for the isolated metastasis so we can continue the same systemic therapy.? -PET scan from late July 2024 showed??disease progression.?? The patient started second line??therapy in the form of cabozantinib 60 mg daily??on August 29, 2024. ??Due to diarrhea, dosage was decreased to 40 mg daily - Clinically stable.?? Tolerating treatment OK. 2. Hypothyroidism - Started levothyroxine 05/02/22 - TSH from today pending 3.?Chronic kidney disease 4.?? Proteinuria -Cr relatively stable in 1.5-1.7 range -Has proteinuria which may or may not be related to RCC treatment.?? Urine protein to Cr ratio downfrom 6.1 to 4.5 5.?? Decreased oral intake due to dysgeusia and poor appetite - Weight stable -??Has not been taking Remeron -??Tried zinc supplement for dysgeusia, but not working 6. 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 ??Continue cabozantinib at reduced dosage of 40 mg daily 2.?Return to see me in 1 month for follow-up 3.?? PET/CT prior to return??to assess response to treatment 4.?? Continue levothyroxine.?? TSH from today pending 5.?? Start Remeron 15 mg nightly to improve appetite. 6.?Okay to stop zinc supplements since??they are not helping him with dysgeusia 7.?? F/u with nephrology for hypertension management and to follow up on CKD 8.?Continue Imodium??as needed for diarrhea Advanced Care Planning Not discussed at this visit. Pain Scale on Today's Visit Not recorded on today's visit Pain Plan on Today's Visit No pain plan indicated for today's visit Smoking Status Smoking Tobacco : Never smoker; Smokeless Tobacco : Never used smokeless tobacco; Vaping : Never vaped Depression Screening Tool Status Was not screened Reason: Patient Refused; Screening Date: 11/20/2024 History of Present Illness This is a very pleasant 79-year-old gentleman??who underwent a CT scan of the abdomen and pelvis with contrast??December 01, 2021 for evaluation of abdominal pain, and was found to have acute diverticulitis of the sigmoid colon, without any evidence of perforation. ??He was incidentally found to have a heterogenous??9.8 cm mass in the right kidney, likely representing renal cell carcinoma.?? There were also??indeterminate liver lesions.?? He subsequently underwent an MRI of the abdomen with and without contrast on December 25, 2021, which showed??a 10 cm superior right renal mass, likely renal cell carcinoma, with no local invasion or metastatic??disease??evident.?? There were flash filling??hemangiomas measuring up to 10 mm??in the lateral aspect of segment V.?? There was also a 5 mm??liver cyst??in segment II.?CT of the chest performed??on December 25, 2021??showed??2 suspicious lung lesionsmeasuring 1.4 cm and 1.2 cm within the right upper lobe and right lower lobe.?? Malignancy cannot be ruled out.?? In addition, he was found to have subtle tiny??foci of decreased??density??within theT1 vertebral body and manubrium,??possibly related to osteoporosis, although metastatic disease cannot be excluded. He subsequently underwent a PET/CT??which showed findings suspicious??for a right-sided??renal cellcarcinoma with??metastases involving a portacaval lymph node??and??nodule within the right lower and right upper lobes.?? CT- guided??lung biopsy??confirmed??metastatic malignancy, but there was not enough tissue for??immunostains Repeat??biopsy of lung nodule was positive for renal cell carcinoma The patient started??Keytruda/Lenvima in the first-line setting on January 22, 2022 CT CAP 04/10/22 showed a good response to treatment so far. ??Primary tumor in the kidney is smaller. ??The biopsy-proven lung metastases are also smaller. ??The mildly enlarged portacaval lymph nodewhich may or may not be related to his renal cell carcinoma is stable in size The patient underwent cytoreductive nephrectomy on??June 16, 2022. ??Surgical pathology showed??grade 3??clear-cell renal cell carcinoma??measuring 9.5 cm in the greatest dimension with invasion into the perinephric??in the high lower??adipose tissue. ??Surgical resection margins were negative. Restarted Keytruda and??Lenvima after surgery. Treatment was interrupted for a month in July-August due to rise in Cr??initially thought to be medication induced, but LANETTE resolved quickly and Cr has been stable in baseline 1.7-1.8 range after restarting treatment PET/CT from 09/2022 showed enlargement of the 2 lung metastases compared to the previous scan from March 2022. ??The portacaval lymph node is still very small, and actually has lower FDG uptake (now SUV max of 2.8) compared to last PET scan from December 2021. ??This remains indeterminate.?? Unclear if this is real progression on first-line therapy or progression due to interruption of treatment.??Since the last CT scan from March 2022, Lenvima was held from late April until early June due to diarrhea and surgery. ??Keytruda was interrupted due to surgery. ??Treatment was interrupted again in late July due to rising creatinine, which has now stabilized Discussed 2nd line treatment options. ??Patient decided to stay on first-line therapy in the form of Keytruda and Lenvima for now, while addressing the oligometastatic lung metastases with either SBRT or surgery. ??He also agreed to increased Lenvima dosage to 14 mg daily -He met with radiation oncology and surgery. ??Decided to pursue SBRT. PET/CT from February 01, 2023 showed expected response in the lung metastases treated with SBRT. ??The periportal lymph node is no longer hypermetabolic. ??There is a new tiny hypermetabolic lesion in the right humeral head. ??The patient reports no recent trauma to this area, so I think it is likely a small metastasis. ??He currently has no pain, and range of motion is intact.?? This was treated with SBRT 02/26/2023 PET/CT from 04/28/2023 showed no new disease. ??The 2 lung mets and possible humeral head met that have been radiated have decreased further in FDG uptake, consistent with response to radiation PET/CT from 07/2023 negative PET/CT from October 2023 showed development of an isolated soft tissue nodule in the right internal mammary/intercostal region measuring 5 mm??suspicious for isolated metastasis.?We decided to continue with pembrolizumab/Lenvima??and refer the patient to radiation oncology to consider SBRT for the isolated metastasis The patient underwent??SBRT for isolated??chest wall metastasis??in mid November 2023 PET/CT 02/2024 shows no new disease PET scan 04/2024 showed a new isolated small chest wall metastasis measuring 0.7 cm. ??The patient is asymptomatic.?? Referred to radiation therapy to consider SBRT for??isolated metastasis so we cancontinue the same systemic therapy PET scan 08/22/2023 showed a new FDG avid subcapsular lesion in the right hepatic lobe and a mildly FDG avid left upper lobe lung nodule, concerning for additional sites of metastatic disease. He started??cabozantinib??60 mg daily on August 29, 2024. ??Due to diarrhea, dosage was decreased to 40 mg daily Interval History The patient returns to clinic today for a follow-up visit.?? He denies any new??side effects related to the reduced dosage of cabozantinib.?? However, he continues to report??decreased oral intake due to dysgeusia and??poor appetite.?? With that said, his weight has been relatively stable at 164 ann-marie nds.?? No significant nausea??or vomiting. ??He still has occasional diarrhea, which occurs every 2to 3 days,??usually??2-3 episodes per day. Review of Systems Remaining 14 point comprehensive review of systems within normal limits. NCCN Distress Thermometer and Problem List were collected and documented in the patient chart.?? Remarkable symptoms and concerns were discussed with the patient.?? Any additional follow-up is indicated in the plan. Past Medical and Surgical History Hypertension BPH Atrial fibrillation, rate controlled, not on anticoagulation??due to previous GI bleeding Type 2 diabetes, on glipizide Current Medications Medication List Name Date Cabometyx (Cabozantinib Oral (Cabometyx) ) 11/20/2024 Ondansetron Oral 08/25/2024 Diltiazem Oral 01/01/2022 Tamsulosin Oral 12/31/2021 Lisinopril Oral 08/24/2024 Metoprolol Oral (Tartrate) 02/12/2022 Levothyroxine 12/02/2023 Mirtazapine Oral 11/20/2024 Acetaminophen Oral 12/31/2021 Omeprazole Oral Delayed Release Capsule 12/24/2022 Furosemide Oral 08/24/2024 Prochlorperazine Oral 01/21/2022 Allergies Sulfamide and metformin Family History Unremarkable. ??Multiple first-degree and??second-degree family members with prostate cancer Social History Never smoker. ??No significant alcohol use.?? Lives with in??[place].?He was in the [employer]??and served in [employer].?? They traveled to??[facility]??for the winter months. Vital Signs Blood pressure: 158/78, Pulse: 65, Temperature: 97.3 F, Respirations: 16, O2 sat: 96%, Pain Scale: 0, Height: 68 in, Weight: 164.2 lb, BSA: 1.88, BMI: 24.97 kg/m2 Covid-19 vaccine (Scards) (05/21/2022); Covid-19 vaccine (Scards) (06/01/2024); Covid-19 vaccine (Pfizer) (01/01/2022); Covid-19 vaccine (Pfizer) (01/01/2022); Covid-19 vaccine (Pfizer) (09/02/2023),Patient declined/rejected; Covid-19 vaccine (Pfizer) (01/01/2022); Flu vaccine - Adult (03/30/2024); Flu vaccine - Adult (09/02/2023), Patient declined/rejected; Flu vaccine - Adult (04/08/2023); Fluvaccine - Adult (04/15/2022) Performance Status ECOG or Karnofsky ECO Symptoms, but ambulatory. Restricted in physically strenuous activity, but ambulatory and able to carry out work of a light or sedentary nature (e.g., light housework, office work). (Date: 02/12/2022) Karnofsky: 80% Normal activity with effort; some signs or symptoms of disease. (Date: 04/21/2024) Physical Exam General: Awake, alert, and oriented. ??ECOG PS 0 Skin: ??No bruising or skin rash noted. Eyes: ?? Sclera anicteric. ?? Mouth: ??Moist mucous membranes without ulceration Lymphatics: No palpable lymphadenopathy Abdomen: ??Soft, nontender, nondistended. ?? Extremities: ??Well perfused, no edema. Genetics/Molecular/Biomarkers * Renal cell carcinoma (disorder) ( Stage Date: Unknown, Stage IV RCC IMDC Risk Group: Favorable (no risk factors); Histopathologic Type: Clear cell renal carcinoma;) Additional Labs, Imaging, and Other Studies Lab Results CBC Lab Results 11/20/2024 10/13/2024 09/15/2024 09/14/2024 08/25/1906/01/2024 CBC WBC x 10^3/uL 6.0 4.2 6.8 5.5 5.2 RBC x 10^6/uL 3.24 (L) 3.70 (L) 4.08 (L) 4.08 (L) 4.22 NRBC % /100 wbc 0.0 0.0 0.0 0.0 0.0 HGB g/dL 11.3 (L) 12.3 (L) 13.5 13.6 13.8 HCT % 33.6 (L) 36.8 (L) 40.3 41.1 41.1 MCV fL 103.7 99.5 98.8 100.7 97.4 MCH pg 34.9 33.2 33.1 33.3 32.7 MCHC g/dL 33.6 33.4 33.5 33.1 33.6 RDW % 16.60 (H) 15.20 13.30 13.00 13.20 PLT x 10^3/uL 139 162 148 158 141 MPV fL 10.2 10.4 10.5 10.7 9.9 Tatyana % 67.3 46.9 62.9 69.2 68.3 LY % 23.4 43.1 (H) 30.0 20.6 20.9 MO % 7.6 6.9 5.4 (L) 7.9 7.3 EO % 1.3 2.4 1.3 1.7 2.7 IG % 0.2 0.2 0.1 0.4 0.4 Tatyana # (ANC) x 10^3/uL 4.0 2.0 4.3 3.8 3.6 BA % 0.2 0.5 0.3 0.2 0.4 MO # x 10^3/uL 0.5 0.3 0.4 0.4 0.4 EO # x 10^3/uL 0.1 0.1 0.1 0.1 0.1 BA # x 10^3/uL 0.0 0.0 0.0 0.0 0.0 IG # x 10^3/uL 0.01 0.01 0.01 0.02 0.02 LY # x 10^3/uL 1.4 1.8 2.0 1.1 1.1 Chemistries Lab Results 11/20/2024 10/13/2024 09/15/2024 09/14/2024 08/25/1906/01/2024 Chemistries Glucose mg/dL 110 (H) 106 (H) 175 (H) 123 (H) BUN mg/dL 20.0 27.0 (H) 29.0 (H) 21.0 (H) Creatinine mg/dL 1.50 (H) 1.70 (H) 1.60 (H) 1.40 (H) Sodium mmol/L 136 (L) 135 (L) 137 139 Potassium mmol/L 4.4 4.7 3.8 4.2 Chloride mmol/L 103 104 104 108 (H) CO2 mmol/L 24 27 23 24 Calcium mg/dL 7.4 Critical chemistry value obtained. (LL) 7.7 (L) 8.2 (L) 8.5 Albumin g/dL 2.9 (L) 3.2 (L) 3.4 (L) 3.7 Total protein g/dL 5.4 (L) 5.6 (L) 5.9 (L) 6.1 (L) Bilirubin, total mg/dL 0.4 0.3 0.6 0.4 Alkaline phosphatase U/L 106 110 110 89 AST/SGOT U/L 48 55 38 35 ALT/SGPT U/L 32 36 27 25 GFR estimate mL/min/1.73m2 46.7 (L) 40.2 (L) 43.2 (L) 50.8 (L) ? Surveys/Consents/Other Discussions Gio Lopez MD CC: Ulises Dowell MD FAX Beto Arguelles MD (Referring) MD Jess Valentin MD Electronically signed by Gio Lopez MD 11/21/2024 08:17 CDT * Med Onc Follow-up Note Patient Name: KUMAR MALONE Date Of : 1945 Today's Provider:?Gio Lopez MD Date of Service:?10/13/2024 Attending Physician:?Gio Lopez (Hematology/Oncology) Referring Provider: Michael Arguelles MD (Urology) HEMATOLOGY/ MEDICAL ONCOLOGY FOLLOW UP VISIT Reason for Visit Oligometastatic renal cell carcinoma Assessment 1.?Oligometastatic clear cell renal cell carcinoma -Was on first-line systemic therapy in the form of Keytruda and Lenvima since early January 2022 to August 2024 -??Underwent cytoreductive nephrectomy on June 16, 2022. Surgical pathology showed grade 3 clear-cell renal cell carcinoma measuring 9.5 cm in the greatest dimension with invasion into the perinephric in the high lower adipose tissue. Surgical resection margins were negative. -The patient had a small isolated chest wall metastasis in October 2023 that was treated with SBRT while continuing first-line systemic therapy.?? PET scan from??January 2024 was negative -PET scan from 04/2024 showed??a new??isolated??small chest wall metastasis measuring 0.7 cm. ??Thepatient is asymptomatic.?? He underwent another course of SBRT for the isolated metastasis so we can continue the same systemic therapy.? -PET scan from late July 2024 showed??disease progression.?? The patient started second line??therapy in the form of cabozantinib 60 mg daily??on August 29, 2024. ??Due to diarrhea, dosage was decreased to 40 mg daily 2. Hypothyroidism - Started levothyroxine 05/02/22 - TSH from today pending 3.?Chronic kidney disease 4.?? Proteinuria -Relatively stable in 1.5-1.7 range -Has proteinuria which may or may not be related to RCC treatment.?? Urine protein to Cr ratio downfrom 6.1 to 4.5 5.?? Weight loss -Likely due to poor appetite and??diarrhea - On Remeron -Gained over 10 pounds back after stopping lenvatinib and switching to cabozantinib 6. Hypertension - Managed by nephrology Plan 1. ??Continue cabozantinib at reduced dosage of 40 mg daily 2.?Return to see me or ELPIDIO in 1 month for follow-up 3.?? Continue levothyroxine.?? TSH from today pending 4.?? Continue Remeron 15 mg nightly to improve appetite. 5.?? F/u with nephrology for hypertension management 6.?? Will recheck urine protein to Cr ratio once a month 7.?? Plan to repeat imaging studies in November 2024 to assess response to treatment. Advanced Care Planning Not discussed at this visit. Pain Scale on Today's Visit Not recorded on today's visit Pain Plan on Today's Visit No pain plan indicated for today's visit Smoking Status Smoking Tobacco : Never smoker; Smokeless Tobacco : Never used smokeless tobacco; Vaping : Never vaped Depression Screening Tool Status Was not screened Reason: Patient Refused; Screening Date: 08/24/2024 History of Present Illness This is a very pleasant 79-year-old gentleman??who underwent a CT scan of the abdomen and pelvis with contrast??December 01, 2021 for evaluation of abdominal pain, and was found to have acute diverticulitis of the sigmoid colon, without any evidence of perforation. ??He was incidentally found to have a heterogenous??9.8 cm mass in the right kidney, likely representing renal cell carcinoma.?? There were also??indeterminate liver lesions.?? He subsequently underwent an MRI of the abdomen with and without contrast on December 25, 2021, which showed??a 10 cm superior right renal mass, likely renal cell carcinoma, with no local invasion or metastatic??disease??evident.?? There were flash filling??hemangiomas measuring up to 10 mm??in the lateral aspect of segment V.?? There was also a 5 mm??liver cyst??in segment II.?CT of the chest performed??on December 25, 2021??showed??2 suspicious lung lesionsmeasuring 1.4 cm and 1.2 cm within the right upper lobe and right lower lobe.?? Malignancy cannot be ruled out.?? In addition, he was found to have subtle tiny??foci of decreased??density??within theT1 vertebral body and manubrium,??possibly related to osteoporosis, although metastatic disease cannot be excluded. He subsequently underwent a PET/CT??which showed findings suspicious??for a right-sided??renal cellcarcinoma with??metastases involving a portacaval lymph node??and??nodule within the right lower and right upper lobes.?? CT- guided??lung biopsy??confirmed??metastatic malignancy, but there was not enough tissue for??immunostains Repeat??biopsy of lung nodule was positive for renal cell carcinoma The patient started??Keytruda/Lenvima in the first-line setting on January 22, 2022 CT CAP 04/10/22 showed a good response to treatment so far. ??Primary tumor in the kidney is smaller. ??The biopsy-proven lung metastases are also smaller. ??The mildly enlarged portacaval lymph nodewhich may or may not be related to his renal cell carcinoma is stable in size The patient underwent cytoreductive nephrectomy on??June 16, 2022. ??Surgical pathology showed??grade 3??clear-cell renal cell carcinoma??measuring 9.5 cm in the greatest dimension with invasion into the perinephric??in the high lower??adipose tissue. ??Surgical resection margins were negative. Restarted Keytruda and??Lenvima after surgery. Treatment was interrupted for a month in July-August due to rise in Cr??initially thought to be medication induced, but LANETTE resolved quickly and Cr has been stable in baseline 1.7-1.8 range after restarting treatment PET/CT from 09/2022 showed enlargement of the 2 lung metastases compared to the previous scan from March 2022. ??The portacaval lymph node is still very small, and actually has lower FDG uptake (now SUV max of 2.8) compared to last PET scan from December 2021. ??This remains indeterminate.?? Unclear if this is real progression on first-line therapy or progression due to interruption of treatment.??Since the last CT scan from March 2022, Lenvima was held from late April until early June due to diarrhea and surgery. ??Keytruda was interrupted due to surgery. ??Treatment was interrupted again in late July due to rising creatinine, which has now stabilized Discussed 2nd line treatment options. ??Patient decided to stay on first-line therapy in the form of Keytruda and Lenvima for now, while addressing the oligometastatic lung metastases with either SBRT or surgery. ??He also agreed to increased Lenvima dosage to 14 mg daily -He met with radiation oncology and surgery. ??Decided to pursue SBRT. PET/CT from February 01, 2023 showed expected response in the lung metastases treated with SBRT. ??The periportal lymph node is no longer hypermetabolic. ??There is a new tiny hypermetabolic lesion in the right humeral head. ??The patient reports no recent trauma to this area, so I think it is likely a small metastasis. ??He currently has no pain, and range of motion is intact.?? This was treated with SBRT 02/26/2023 PET/CT from 04/28/2023 showed no new disease. ??The 2 lung mets and possible humeral head met that have been radiated have decreased further in FDG uptake, consistent with response to radiation PET/CT from 07/2023 negative PET/CT from October 2023 showed development of an isolated soft tissue nodule in the right internal mammary/intercostal region measuring 5 mm??suspicious for isolated metastasis.?We decided to continue with pembrolizumab/Lenvima??and refer the patient to radiation oncology to consider SBRT for the isolated metastasis The patient underwent??SBRT for isolated??chest wall metastasis??in mid November 2023 PET/CT 02/2024 shows no new disease PET scan 04/2024 showed a new isolated small chest wall metastasis measuring 0.7 cm. ??The patient is asymptomatic.?? Referred to radiation therapy to consider SBRT for??isolated metastasis so we cancontinue the same systemic therapy PET scan 08/22/2023 showed a new FDG avid subcapsular lesion in the right hepatic lobe and a mildly FDG avid left upper lobe lung nodule, concerning for additional sites of metastatic disease. Interval History The patient returns to clinic today for a follow-up visit.?? A few weeks ago, he??developed??significant diarrhea??on cabozantinib 60 mg daily. ??He held it for a few days, with??almost immediate resolution of diarrhea.?? Since then, he has restarted cabozantinib 40 mg daily. ??He has been tolerating the reduced dosage better.?? Still has occasional diarrhea??every few days.?? He also reports??fatigue and decreased appetite, which are stable.?? He has gained a few pounds since I last saw him. Review of Systems Remaining 14 point comprehensive review of systems within normal limits. NCCN Distress Thermometer and Problem List were collected and documented in the patient chart.?? Remarkable symptoms and concerns were discussed with the patient.?? Any additional follow-up is indicated in the plan. Past Medical and Surgical History Hypertension BPH Atrial fibrillation, rate controlled, not on anticoagulation??due to previous GI bleeding Type 2 diabetes, on glipizide Current Medications Medication List Name Date Ondansetron Oral 08/25/2024 Diltiazem Oral 01/01/2022 Tamsulosin Oral 12/31/2021 Acetaminophen Oral 12/31/2021 Furosemide Oral 08/24/2024 Cabometyx (Cabozantinib Oral (Cabometyx) ) 08/25/2024 Prochlorperazine Oral 01/21/2022 Omeprazole Oral Delayed Release Capsule 12/24/2022 Levothyroxine 12/02/2023 Lisinopril Oral 08/24/2024 Metoprolol Oral (Tartrate) 02/12/2022 Allergies Sulfamide and metformin Family History Unremarkable. ??Multiple first-degree and??second-degree family members with prostate cancer Social History Never smoker. ??No significant alcohol use.?? Lives with in??[place].?He was in the [employer]??and served in [place].?? They traveled to??[facility]??for the winter months. Vital Signs Blood pressure: Not recorded on visit, Pulse: Not recorded on visit, Temperature: Not recorded on visit, Respirations: Not recorded on visit, O2 sat: Not recorded on visit, Pain Scale: Not recorded on visit, Height: Not recorded on visit, Weight: Not recorded on visit, BSA: Not recorded on visit, BMI: Not recorded on visit Covid-19 vaccine (Pfizer) (01/01/2022); Covid-19 vaccine (Pfizer) (09/02/2023), Patient declined/rejected; Covid-19 vaccine (Pfizer) (01/01/2022); Covid-19 vaccine (Pfizer) (05/21/2022); Covid-19 vaccine (Pfizer) (01/01/2022); Covid-19 vaccine (Pfizer) (06/01/2024); Flu vaccine - Adult (03/30/2024); Flu vaccine - Adult (09/02/2023), Patient declined/rejected; Flu vaccine - Adult (04/08/2023); Fluvaccine - Adult (04/15/2022) Performance Status ECOG or Karnofsky ECO Symptoms, but ambulatory. Restricted in physically strenuous activity, but ambulatory and able to carry out work of a light or sedentary nature (e.g., light housework, office work). (Date: 02/12/2022) Karnofsky: 80% Normal activity with effort; some signs or symptoms of disease. (Date: 04/21/2024) Physical Exam General: Awake, alert, and oriented. ??ECOG PS 0 Skin: ??No bruising or skin rash noted. Eyes: ?? Sclera anicteric. ?? Mouth: ??Moist mucous membranes without ulceration Lymphatics: No palpable lymphadenopathy Abdomen: ??Soft, nontender, nondistended. ?? Extremities: ??Well perfused, no edema. Genetics/Molecular/Biomarkers * Renal cell carcinoma (disorder) ( Stage Date: Unknown, Stage IV RCC IMDC Risk Group: Favorable (no risk factors); Histopathologic Type: Clear cell renal carcinoma;) Additional Labs, Imaging, and Other Studies Lab Results CBC Lab Results 10/13/2024 09/15/2024 09/14/2024 08/24/2024 06/01/1905/11/2024 CBC WBC x 10^3/uL 4.2 6.8 5.5 5.2 8.4 RBC x 10^6/uL 3.70 (L) 4.08 (L) 4.08 (L) 4.22 4.05 (L) NRBC % /100 wbc 0.0 0.0 0.0 0.0 0.0 HGB g/dL 12.3 (L) 13.5 13.6 13.8 13.0 HCT % 36.8 (L) 40.3 41.1 41.1 39.6 MCV fL 99.5 98.8 100.7 97.4 97.8 MCH pg 33.2 33.1 33.3 32.7 32.1 MCHC g/dL 33.4 33.5 33.1 33.6 32.8 RDW % 15.20 13.30 13.00 13.20 12.80 PLT x 10^3/uL 162 148 158 141 156 MPV fL 10.4 10.5 10.7 9.9 10.1 Tatyana % 46.9 62.9 69.2 68.3 72.8 LY % 43.1 (H) 30.0 20.6 20.9 19.2 MO % 6.9 5.4 (L) 7.9 7.3 5.7 (L) EO % 2.4 1.3 1.7 2.7 1.7 IG % 0.2 0.1 0.4 0.4 0.4 Tatyana # (ANC) x 10^3/uL 2.0 4.3 3.8 3.6 6.2 BA % 0.5 0.3 0.2 0.4 0.2 MO # x 10^3/uL 0.3 0.4 0.4 0.4 0.5 EO # x 10^3/uL 0.1 0.1 0.1 0.1 0.1 BA # x 10^3/uL 0.0 0.0 0.0 0.0 0.0 IG # x 10^3/uL 0.01 0.01 0.02 0.02 0.03 LY # x 10^3/uL 1.8 2.0 1.1 1.1 1.6 Chemistries Lab Results 10/13/2024 09/15/2024 09/14/2024 08/24/2024 06/01/1905/11/2024 Chemistries Glucose mg/dL 106 (H) 175 (H) 123 (H) 109 (H) BUN mg/dL 27.0 (H) 29.0 (H) 21.0 (H) 23.0 (H) Creatinine mg/dL 1.70 (H) 1.60 (H) 1.40 (H) 1.50 (H) Sodium mmol/L 135 (L) 137 139 138 Potassium mmol/L 4.7 3.8 4.2 4.4 Chloride mmol/L 104 104 108 (H) 108 (H) CO2 mmol/L 27 23 24 26 Calcium mg/dL 7.7 (L) 8.2 (L) 8.5 8.6 Albumin g/dL 3.2 (L) 3.4 (L) 3.7 3.7 Total protein g/dL 5.6 (L) 5.9 (L) 6.1 (L) 6.5 Bilirubin, total mg/dL 0.3 0.6 0.4 0.4 Alkaline phosphatase U/L 110 110 89 91 AST/SGOT U/L 55 38 35 35 ALT/SGPT U/L 36 27 25 24 GFR estimate mL/min/1.73m2 40.2 (L) 43.2 (L) 50.8 (L) 46.8 (L) ? Surveys/Consents/Other Discussions Gio Lopez MD CC: Ulises Dowell MD FAX Beto Arguelles MD (Referring) MD Jess Valentin MD Electronically signed by Gio Lopez MD 10/16/2024 08:23 CDT
--- OUTSIDE RECORDS SUMMARY | 2024-12-31 11:37 | XMS_ITS | Encounter Summary ---
Author Organization [facility] Address [address] [place] [address]. [place] [address] Care Team Providers Care Grain Elevator Agent Name Role Phone Beto Anne MD Primary Care Provider [phone] Reason for Referral * Therapeutic Services (Routine) - Pending Review Specialty Diagnoses / Procedures Referred By Joaquin t Referred To Contact Diagnoses Renal carcinoma, right (H) Dysphagia Gio Lopez MD [facility] [address] [facility] [address] [place] [address] Phone: tel: fax: Referral ID Status Reason Start Date Expiration Date V isits Requested Visits Authorized [id number] Pending Review 12/25/2024 12/25/2025 1 1 Question Answer Course of Action: Evaluation and Treatment Speech Treatment Diagnosis: Dysphagia Specialty Services: Per Associated Diagnosis Patient Scheduling Instructions: [facility] will call you to coordinate your care as prescribed by your provider. If you don't hear from a financial sales representative within 2 business days, please call . Does central scheduling need to contact this patient to schedule? Yes Comments Please be aware that coverage of these services is subject to the terms and limitations of your health insurance plan. Call member services at your health plan with any benefit or coverage questions. [employer] [employer] [facility] will call you to coordinate your care as prescribed by your provider. If you don't hear from a financial sales representative within 2 business days, please call . 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 Gender Identity Not on file Sexual Orientation Not on file documented as of this encounter Plan of Treatment Upcoming Encounters Date Type Department Care Team (Late st Contact Info) Description 02/01/2025 10:00 AM CDT Appointment [facility] [address] [facility] [address] [place] [address] Gio Lopez MD [facility] [address] [place] [address] 02/01/2025 10:00 AM CDT Appointment [facility] [address] [place] [id number] Gio Lopez MD [facility] [address] [place] [address] Scheduled Referrals Name Type Priority Associated Diagnoses Orde r Schedule Speech Therapy Pellet Press Operator Referral Referral Routine Renal carcinoma, right (H) Dysphagia Ordered: 12/25/2024 documented as of this encounter Visit Diagnoses Diagnosis Renal carcinoma, right (H)- Primary Dysphagia Dysphagia, unspecified documented in this encounter Care Teams Grain Elevator Agent Relationship Specialty Start Date End Date Beto Anne MD [facility] [address] [place] [address] PCP - General Family Medicine 01/05/22 documented as of this encounter
--- OUTSIDE RECORDS SUMMARY | 2024-12-31 11:37 | XMS_ITS ---
Author Name Interface, [id number] lity Address [address] [facility] [address] [address] [facility] Address [address] [facility] [address] [address] Allergies and Adverse Reactions Medication/Group Name Reaction Severity Date metformin 12/20/2024 Sulfamide Mild to moderate 12/20/2024 Plan Date Type Value 11/20/2024 APPOINTMENT LAB 15 MIN 11/20/2024 APPOINTMENT OV 20 MIN 11/20/2024 LABORDER Protein/creatini ne ratio, random urine panel 11/20/2024 LABORDER CBC w/ auto diff 11/20/2024 LABORDER TSH w/ reflex to free T4 11/20/2024 LABORDER CMP Reason for Visit OV 20 MIN Encounters Date Name 11/20/2024 Cancer with lung met astasis 11/20/2024 Cancer with lung met astasis 11/20/2024 Diarrhea (finding) 11/20/2024 Liver metastasis 11/20/2024 Poor appetite 11/20/2024 Renal cell carcinoma (disorder) Diagnostic Results Date Type Test Units Lower Limit Upper Limit Result Flag Comments Status Ordered By Specimen Source Lab Address 11/20 TSH w/ refle x to free T4 TSH uIU/mL 0.47 4.68 1.59 FINAL Gio John * [facility] , [address] [facility] [id number] 11/20 CMP Album in g/dL 3.5 5.0 2.7 Low FINAL Gio John * [facility] , [address] [facility] [id number] 0 11/20 CMP Alkal ine phosp hatas e U/L 36.0 125.0 120 FINAL Gio Lopez * [facility] , [address] [facility] [id number] 0 11/20 CMP ALT/S GPT U/L 0.0 49.0 33 FINAL Gio Lopez * [facility] , [address] [facility] [id number] 0 11/20 CMP AST/S GOT U/L 17.0 59.0 45 FINAL Gio Lopez * [facility] , [address] [facility] [id number] 0 11/20 CMP BUN mg/dL 9.0 20.0 26.0 High FINAL Gio Lopez * [facility] , [address] [facility] [id number] 0 11/20 CMP Calci um mg/dL 8.4 10.2 7.4 Criti ninoska Low FINAL Gio Lopez * [facility] , [address] [facility] [id number] 0 11/20 CMP Chlor viola mmol/L 96.0 107.0 107 FINAL Gio Lopez * [facility] , [address] [facility] [id number] 0 11/20 CMP CO2 mmol/L 22.0 30.0 [...] hour stability window. FINAL Gio Lopez * [facility] , [address] [facility] [id number] 0 11/20 CMP Creat inine mg/dL 0.66 1.25 1.60 High FINAL Gio Lopez * [facility] , [address] [facility] [id number] 0 11/20 CMP GFR estim ate ml/min /1.73m ^2 43.2 Low GFR is calculate d using the CKD-EPI equation. FINAL Gio Lopez * [facility] , [address] [facility] [id number] 0 11/20 CMP Gluco se mg/dL 74.0 100.0 99 FINAL Gio Lopez * [facility] , [address] [facility] [id number] 0 11/20 CMP Potas sium mmol/L 3.5 5.1 4.3 FINAL Gio Lopez * [facility] , [address] [facility] [id number] 0 11/20 CMP Sodiu m mmol/L 137.0 145.0 137 FINAL Gio Lopez * [facility] , [address] [facility] [id number] 0 11/20 CMP Bilir ubin, total mg/dL 0.2 1.3 0.5 FINAL Gio Lopez * [facility] , [address] [facility] [id number] 0 11/20 CMP Total prote in g/dL 6.3 8.2 5.1 Low FINAL Gio Lopez * [facility] , [address] [facility] [id number] 0 11/20 CBC w/ auto diff WBC K/uL 3.0 8.9 6.0 FINAL Gio Lopez [facility] , [address] [facility] [id number] 0 11/20 CBC w/ auto diff HGB g/dL 12.5 16.6 11.3 Low FINAL Gio Lopez [place] [facility] [place] [facility] , [address] [place] [id number] 0 11/20 CBC w/ auto diff PLT K/uL 113.0 364.0 139 FINAL Gio Lopez [place] [facility] [place] [facility] , [address] [place] [id number] 0 11/20 CBC w/ auto diff Tatyana # (ANC) K/uL 1.6 6.6 4.0 FINAL Gio Lopez [place] [facility] [place] [facility] , [address] [place] [id number] 0 11/20 CBC w/ auto diff Tatyana % % 43.0 74.0 67.3 FINAL Gio Lopez [place] [facility] [place] [facility] , [address] [place] [id number] 0 11/20 CBC w/ auto diff IG % % 0.0 0.5 0.2 FINAL Gio Lopez [place] [facility] [place] [facility] , [address] [place] [id number] 0 11/20 CBC w/ auto diff IG # K/uL 0.0 0.03 0.01 FINAL Gio Lopez [place] [facility] [place] [facility] , [address] [place] [id number] 0 11/20 CBC w/ auto diff LY % % 14.0 41.0 23.4 FINAL Gio Lopez [place] [facility] [place] [facility] , [address] [place] [id number] 0 11/20 CBC w/ auto diff MO % % 6.0 15.0 7.6 FINAL Gio Lopez [place] [facility] [place] [facility] , [address] [place] [id number] 0 11/20 CBC w/ auto diff EO % % 0.0 7.0 1.3 FINAL Gio Lopez [place] [facility] [place] [facility] , [address] [place] [id number] 0 11/20 CBC w/ auto diff BA % % 0.0 2.0 0.2 FINAL Gio Lopez [place] [facility] [place] [facility] , [address] [place] [id number] 0 11/20 CBC w/ auto diff LY # K/uL 0.4 3.6 1.4 FINAL Gio Lopez [place] [facility] [place] [facility] , [address] [place] [id number] 0 11/20 CBC w/ auto diff MO # K/uL 0.2 1.3 0.5 FINAL Gio Lopez [place] [facility] [place] [facility] , [address] [place] [id number] 0 11/20 CBC w/ auto diff EO # K/uL 0.0 0.6 0.1 FINAL Gio Lopez [place] [facility] [place] [facility] , [address] [place] [id number] 0 11/20 CBC w/ auto diff BA # K/uL 0.0 0.2 0.0 FINAL Gio Lopez [place] [facility] [place] [facility] , [address] [place] [id number] 0 11/20 CBC w/ auto diff NRBC % #/100W BC 0.0 0.2 0.0 FINAL Gio Lopez [place] [facility] [place] [facility] , [address] [place] [id number] 0 11/20 CBC w/ auto diff RBC M/uL 4.2 5.6 3.24 Low FINAL [facility] [facility] [place] [facility] , [address] [place] [id number] 0 11/20 CBC w/ auto diff HCT % 39.0 49.0 33.6 Low FINAL Gio [facility] [facility] [place] [facility] , [address] [place] [id number] 0 11/20 CBC w/ auto diff MCV fL 80.0 104.0 103.7 FINAL [facility] [place] [facility] [place] [facility] , [address] [place] [id number] 0 11/20 CBC w/ auto diff MCH pg 26.0 35.0 34.9 FINAL [facility] [facility] [place] [facility] , [address] [place] [id number] 0 11/20 CBC w/ auto diff MCHC g/dL 30.0 35.0 33.6 FINAL [facility] [place] [facility] , [address] [place] [id number] 0 11/20 CBC w/ auto diff MPV fL 9.5 13.4 10.2 FINAL [facility] [facility] [place] [facility] , [address] [place] [id number] 0 11/20 CBC w/ auto diff RDW % 11.3 15.6 16.60 High FINAL [facility] [place] [facility] , [address] [place] [id number] 0 11/20 Prote in/cr eatin ine ratio , mario hamilton urine panel CREAT ININE , RANDO M URINE mg/dL 20.0 320.0 41 FINAL Gio VALDES [employer] [facility] [address] [facility] [id number] 4 11/20 Prote in/cr eatin ine ratio , rando m urine panel PROTE IN/CR EATIN INE RATIO mg/gcr eat 25.0 148.0 3634 High FINAL Gio VALDES [employer] [facility] [address] [facility] [id number] 4 11/20 Prote in/cr eatin ine ratio , rando m urine panel PROTE IN/CR EATIN INE RATIO mg/mgc reat 0.025 0.148 3.634 High FINAL Gio VALDES [employer] [facility] [address] [facility] [id number] 4 11/20 Prote in/cr eatin ine ratio , rando m urine panel PROTE IN, TOTAL , RANDO M UR mg/dL 5.0 25.0 149 High FINAL Gio VALDES [employer] [facility] [address] [facility] [id number] 4 Medications Date Name Route Dose Frequency [...] kidney disease Active Oropharyngeal dysphagia Active 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 ??No significant alcohol use.?? Lives with in??[place].?He was in the [employer]??and served in [place].?? They traveled to??[facility]for the winter months. Vital Signs Blood pressure: 158/78, Pulse: 65, Temperature: 97.3 F, Respirations: 16, O2 sat: 96%, Pain Scale: 0, Height: 68 in, Weight: 164.2 lb, BSA: 1.88, BMI: 24.97 kg/m2 Covid-19 vaccine (Pfizer) (05/21/2022); Covid-19 vaccine (Pfizer) (06/01/2024); Covid-19 vaccine (Pfizer) (01/01/2022); Covid-19 vaccine [...]
--- OUTSIDE RECORDS SUMMARY | 2024-12-31 11:37 | XMS_ITS | Clinical Summary ---
Author Organization [facility] Address [address] [place] [address] Care Team Providers Care Cloth Tester Quality Name Role Phone Unavailable Primary Care Provider Unavailabl e Source Comments Patient records contain information from all sites at [facility]. For routine questions regarding patient records, call [phone] during business hours, M-F 8:00 AM - 5:00 PM Central Time. Record requests for emergency care only can be directed to [phone] at any time.[facility] Allergies Active Allergy Reactions Criticality Noted Date [...] 1) capsule Take by mouth daily. Active valsartan (Diovan) 80 mg tablet Take 1 tablet (80 mg) daily. 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 Family History Medical History Relation Name Comments Prostate cancer Brother Prostate cancer Father Relation Name Status Comments Brother Father Social History Tobacco Use Types Packs/Day Years Used Date Smoking Tobacco: Never Smokeless Tobacco: Never Tobacco Cessation:Counseling Given: Not Answered Alcohol Use Standard Drinks/Week Comments Not Currently 0 (1 standard drink = 0.6 oz pur e alcohol) Sex and Gender Information Value Date Recorded Sex Assigned at Not on file Legal Sex Male 10:43 AM [employer] Gender Identity Not on file Sexual Orientation Not on file Last Filed Vital Signs Vital Sign Reading Time Taken Comments Blood Pressure 175/78 06/07/2024 9:44 AM [employer] Pulse 58 06/07/2024 9:44 AM [employer] Temperature 36.3 C (97.3 F) 06/07/2024 9:44 AM [employer] Respiratory Rate 12 01/20/2018 4:00 PM CDT Oxygen Saturation - - Inhaled Oxygen Concentration - - Weight 76.3 kg (168 lb 3.4 oz) 06/07/2024 9:44 A M [employer] Height - - Body Mass Index - - Plan of Treatment Health Maintenance Due Date Last Done Comments Thyroid Stimulating Hormone (TSH) test for thyroid function 1945 DTaP,Tdap,and Td Vaccines (1 - Tdap) 11/01/2015 10/31/2015 RSV vaccine - (32-36 weeks) or 60+ years (1 - 1-dose 75+ series) 2019 COVID-19 Vaccine ( - season) 2024 04/14/2023, 05/07/2022, 02/25/2021 Creatinine Level (Kidney Function Test) 04/08/2024 04/08/2023, 06/18/2022, 06/17/2022, Additional history exists Potassium Level 04/08/2024 04/08/2023, 05/25, 06/17/2022 Sodium Level 04/08/2024 04/08/2023, 05/25, 06/17/2022 Depression Screening (Annual PHQ-2) 05/24/2024 Fall Risk Screen (Annual) 05/24/2024 Influenza Vaccine (#1) 2025 , 04/03/2023, 03/10/2022, Additional history exists Zoster Vaccines Completed 11/14/2018, 08/23, 10/25/2014 Pneumococcal vaccine (50+ years) Completed 03/12/2023, 06/28/2013, 09/04/2009 HPV Vaccines Aged Out No longer eligi ble based on patient's age to complete this topic IPV Vaccines Aged Out No longer eligi ble based on patient's age to complete this topic Additional Health Concerns Infection Onset Date Last Indicated Protective Environment 10/26/2022 3 Insurance MEDICARE [facility]
--- OUTSIDE RECORDS SUMMARY | 2024-12-31 11:37 | XMS_ITS ---
Author Name Interface, [id number] lity Address [address] [place] [address] Oncology Address [address] [place] [address] Allergies and Adverse Reactions Plan Reason for Visit Encounters Diagnostic Results Medications Problems Notes Section
--- OUTSIDE RECORDS SUMMARY | 2024-12-31 11:37 | XMS_ITS ---
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 Past Treatment and Therapy Plans No past plan information found. Past Radiation Episodes * SBRT: Right Chest wallOverview* First Treatment Date Last Treatment Date Treatment Site Technique Goal Episode Provider 05/31/2024 06/09/2024 Right Chest wall SBRT Palliative * Linked Problems Carcinoma Renal Cell RightSe condary Malignant Neoplasm Soft Tissue Treatment Courses* Course [id number] 05/31/2024 - 06/09/2024 Treatment Period Fraction Dose Fractions Total Dose Plans Planned [id number] 05/31/2024 - 06/09/2024 1,000 cGy 5 5 ,000 cGy Reference Points Delivered [id number] Chest 05/31/2024 - 06/09/2024 5,000 cGy * SBRT: Anterior chest wallOverview* First Treatment Date Last Treatment Date Treatment Site Technique Goal Episode Provider 12/20/2023 12/29/2023 Anterior chest wall SBRT Palliative * Linked Problems Secondary Malignant Neoplasm Soft Tissue Treatment Courses* Course 3xSternumSBRT 12/20/2023 - 12/29/2023 Treatment Period Fraction Dose Fractions Total Dose Plans Planned [id number] 12/20/2023 - 12/29/2023 1,000 cGy 5 / 5 5 ,000 cGy Reference Points Delivered [id number] 12/20/2023 - 12/29/2023 5,000 cGy * SBRT: BoneOverview* First Treatment Date Last Treatment Date Treatment Site Technique Goal Episode Provider 02/26/2023 02/26/2023 Bone SBRT Palliative * Linked Problems Carcinoma Renal Cell RightSe condary Malignant Neoplasm Bone Treatment Courses* Course 2xHumerusSBRT 02/26/2023 - 02/26/2023 Treatment Period Fraction Dose Fractions Total Dose Plans Planned [id number] 02/26/2023 - 02/26/2023 2,400 cGy 2 ,400 cGy Reference Points Delivered [id number] 02/26/2023 - 02/26/2023 2,400 cGy * SBRT: Right Lower lobe of lungOverview* First Treatment Date Last Treatment Date Treatment Site Technique Goal Episode Provider 11/11/2022 11/30/2022 Right Lower lobe of lung SBRT Curative * Linked Problems Secondary Malignant Neoplasm Lung Right Treatment Courses* Course 1xLungSBRT 11/11/2022 - 11/30/2022 Treatment Period Fraction Dose Fractions Total Dose Plans Planned [id number] 11/25/2022 - 11/30/2022 1,250 cGy 5,000 cGy [id number] 11/11/2022 - 11/20/2022 750 cGy 8 6 ,000 cGy Reference Points Delivered [id number] 11/25/2022 - 11/30/2022 5,000 cGy [id number] 11/11/2022 - 11/20/2022 6,000 cGy
--- OUTSIDE RECORDS SUMMARY | 2024-12-31 11:37 | XMS_ITS ---
Author Name Interface, [id number] lity Address [address] [place] [address] Oncology Address [address] [place] [address] Allergies and Adverse Reactions Plan Reason for Visit Encounters Diagnostic Results Medications Problems Notes Section
--- OUTSIDE RECORDS SUMMARY | 2024-12-31 11:38 | XMS_ITS ---
Author Name Interface, [id number] lity Address [address] [address] [facility] Address [address] [address] Allergies and Adverse Reactions Medication/Group Name Reaction Severity Date metformin 12/20/2024 Sulfamide Mild to moderate 12/20/2024 Plan Date Type Value 12/20/2024 APPOINTMENT LAB 10 MIN 12/20/2024 APPOINTMENT OV 20 MIN 12/20/2024 LABORDER PET/CT scan, sku ll base/mid thigh 12/20/2024 LABORDER CBC w/ auto diff 12/20/2024 LABORDER Protein/creatini ne ratio, random urine panel 12/20/2024 LABORDER CMP 12/20/2024 LABORDER Swallowing Study Reason for Visit OV 20 MIN Encounters Date Name 12/20/2024 Diarrhea (finding) 12/20/2024 Liver metastasis 12/20/2024 Oropharyngeal dyspha yanet 12/20/2024 Renal cell carcinoma (disorder) Diagnostic Results Date Type Test Units Lower Limit Upper Limit Result Flag Comments Status Ordered By Specimen Source Lab Address 12/20 CMP Album in g/dL 3.5 5.0 2.9 Low FINAL Gio Lopez * [facility] , [address] [facility] [phone] 0 12/20 CMP Alkal ine phosp hatas e U/L 36.0 125.0 117 FINAL Gio Lopez * [facility] , [address] [facility] [id number] 0 12/20 CMP ALT/S GPT U/L 0.0 49.0 33 FINAL Gio Lopez * [facility] , [address] [facility] [id number] [phone] 12/20 CMP AST/S GOT U/L 17.0 59.0 45 FINAL Gio Lopez * [facility] , [address] [facility] [id number] 0 12/20 CMP BUN mg/dL 9.0 20.0 33.0 High FINAL Gio Lopez * [facility] , [address] [facility] [id number] 0 12/20 CMP Calci um mg/dL 8.4 10.2 7.7 Low FINAL Gio Lopez * [facility] , [address] [facility] [id number] 0 12/20 CMP Chlor viola mmol/L 96.0 107.0 105 FINAL Gio Lopez * [facility] , [address] [facility] [id number] 0 12/20 CMP CO2 mmol/L 22.0 30.0 [...] hour stability window. FINAL Gio Lopez * [facility] , [address] [facility] [id number] 0 12/20 CMP Creat inine mg/dL 0.66 1.25 1.90 High FINAL Gio Lopez * [facility] , [address] [facility] [id number] 0 12/20 CMP GFR estim ate ml/min /1.73m ^2 35.1 Low GFR is calculate d using the CKD-EPI equation. FINAL Gio Lopez * [facility] , [address] [facility] [id number] 0 12/20 CMP Gluco se mg/dL 74.0 100.0 130 High FINAL Gio Lopez * [facility] , [address] [facility] [id number] 0 12/20 CMP Potas sium mmol/L 3.5 5.1 4.6 FINAL Gio Lopez * [facility] , [address] [facility] [id number] 0 12/20 CMP Sodiu m mmol/L 137.0 145.0 132 Low FINAL Gio Lopez * [facility] , [address] [facility] [id number] 0 12/20 CMP Bilir ubin, total mg/dL 0.2 1.3 0.2 FINAL Gio Lopez * [facility] , [address] [facility] [id number] 0 12/20 CMP Total prote in g/dL 6.3 8.2 5.5 Low FINAL Gio Lopez * [facility] , [address] [facility] [id number] 0 12/20 CBC w/ auto diff WBC K/uL 3.0 8.9 3.8 FINAL Gio Kramerl [facility] - [place] [facility] , [address] [place] [phone] 0 12/20 CBC w/ auto diff HGB g/dL 12.5 16.6 11.5 Low FINAL Gio Kramerl le - [place] [facility] , [address] [place] [phone] 0 12/20 CBC w/ auto diff PLT K/uL 113.0 364.0 176 FINAL Gio Lopez [place] [facility] [place] [facility] , [address] [place] [id number] 0 12/20 CBC w/ auto diff Tatyana # (ANC) K/uL 1.6 6.6 2.1 FINAL Gio Lopez [place] [facility] [place] [facility] , [address] [place] [id number] 0 12/20 CBC w/ auto diff Tatyana % % 43.0 74.0 56.1 FINAL Gio Lopez [place] [facility] [place] [facility] , [address] [place] [id number] 0 12/20 CBC w/ auto diff IG % % 0.0 0.5 0.3 FINAL Gio Lopez [place] [facility] [place] [facility] , [address] [place] [id number] 0 12/20 CBC w/ auto diff IG # K/uL 0.0 0.03 0.01 FINAL Gio Lopez [place] [facility] [place] [facility] , [address] [place] [id number] 0 12/20 CBC w/ auto diff LY % % 14.0 41.0 33.3 FINAL Gio Lopez [place] [facility] [place] [facility] , [address] [place] [id number] 0 12/20 CBC w/ auto diff MO % % 6.0 15.0 8.7 FINAL Gio Lopez [place] [facility] [place] [facility] , [address] [place] [id number] 0 12/20 CBC w/ auto diff EO % % 0.0 7.0 1.3 FINAL Gio Lopez [place] [facility] [place] [facility] , [address] [place] [id number] 0 12/20 CBC w/ auto diff BA % % 0.0 2.0 0.3 FINAL Gio Lopez [place] [facility] [place] [facility] , [address] [place] [id number] 0 12/20 CBC w/ auto diff LY # K/uL 0.4 3.6 1.3 FINAL Gio Lopez [place] [facility] [place] [facility] , [address] [place] [id number] 0 12/20 CBC w/ auto diff MO # K/uL 0.2 1.3 0.3 FINAL Gio Lopez [place] [facility] [place] [facility] , [address] [place] [id number] 0 12/20 CBC w/ auto diff EO # K/uL 0.0 0.6 0.1 FINAL Gio Lopez [place] [facility] [place] [facility] , [address] [place] [id number] 0 12/20 CBC w/ auto diff BA # K/uL 0.0 0.2 0.0 FINAL Gio Lopez [place] [facility] [place] [facility] , [address] [place] [id number] 0 12/20 CBC w/ auto diff NRBC % #/100W BC 0.0 0.2 0.0 FINAL Gio Lopez [place] [facility] [place] [facility] , [address] [place] [id number] 0 12/20 CBC w/ auto diff RBC M/uL 4.2 5.6 3.22 Low FINAL Gio Lopez [place] [facility] [place] [facility] , [address] [place] [id number] 0 12/20 CBC w/ auto diff HCT % 39.0 49.0 34.0 Low FINAL Gio Lopez [facility] , [address] [facility] [id number] 0 12/20 CBC w/ auto diff MCV fL 80.0 104.0 105.6 High FINAL Gio Lopez [facility] , [address] [facility] [id number] 0 12/20 CBC w/ auto diff MCH pg 26.0 35.0 35.7 High FINAL Gio Lopez [facility] , [address] [facility] [id number] 0 12/20 CBC w/ auto diff MCHC g/dL 30.0 35.0 33.8 FINAL Gio Lopez [facility] , [address] [facility] [phone] 0 12/20 CBC w/ auto diff MPV fL 9.5 13.4 10.0 FINAL Gio Lopez [facility] , [address] [facility] [place] [id number] 0 12/20 CBC w/ auto diff RDW % 11.3 15.6 15.30 FINAL Gio Lopez [facility] , [address] [facility] [place] [phone] 0 Medications Date Name Route Dose Frequency Instructions [...] kidney disease Active Oropharyngeal dysphagia 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 PET/CT showed??stable liver metastasis and??the subpleural nodule??in the right fifth/sixth intercostal space.?However, there is development of??FDG avid thickening in the right inferior medial pleura??suspicious for??mild disease progression. ??The patient is asymptomatic from this, and there is no malignant pleural effusion 2. Hypothyroidism - Started levothyroxine 05/02/22 - TSH from today pending 3.?Chronic kidney disease 4.?? Proteinuria -Cr relatively stable in 1.5-1.7 range -Has proteinuria which may or may not be related to RCC treatment.?? Urine protein to Cr ratio downfrom 6.1 to 3.6 5.?? Decreased oral intake due to dysgeusia and poor appetite -??Has not been taking Remeron due to side effects -??Tried zinc supplement for dysgeusia, but not working 6. 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 Oropharyngeal dysphagia - Affecting oral intake Plan 1.?? Continue cabozantinib at reduced dosage of 40 mg daily 2.?Return to see me in 1 month for follow-up 3.?? PET/CT in 3-4 months if clinically stable 4.?Continue Imodium as needed for diarrhea 5. ??Referring the patient to speech therapy for video swallow??evaluation for oropharyngeal dysphagia 6.?? Continue levothyroxine.?? TSH from today pending 7.?? OK to continue Zinc 8.?? F/u with nephrology for hypertension management and to follow up on CKD Advanced Care Planning Not discussed at this visit. Pain Scale on Today's Visit 2 Pain Plan on Today's Visit No pain plan indicated for today's visit Smoking Status Smoking Tobacco : Never smoker; Smokeless Tobacco : Never used smokeless tobacco; Vaping : Never vaped Depression Screening Tool Status Was not screened Reason: Patient Refused; Screening Date: 12/20/2024 History of Present Illness This is a [...] to clinic today for a follow-up visit.?? Recently, he has developed worsening oropharyngeal dysphagia, with certain foods, especially??bread and other foods with similar consistency and texture.?? As a result he has lost some weight.?He was??not able to tolerate mirtazapine fo r??appetite stimulation??because it caused??significant??dizziness.?Dysgeusia is??perhaps slightly better on zinc.?He continues to experience diarrhea 2-3 times a day. ??This is managed with Imodium.?? Denies any nausea, vomiting, or mucositis. Review of Systems Remaining 14 point comprehensive [...] Medication List Name Date Ondansetron Oral 08/25/2024 Acetaminophen Oral 12/31/2021 Diltiazem Oral 01/01/2022 Cabometyx (Cabozantinib Oral (Cabometyx) ) 11/20/2024 Furosemide Oral 12/20/2024 Tamsulosin Oral 12/31/2021 Levothyroxine 12/02/2023 Lisinopril Oral 08/24/2024 Metoprolol Oral (Tartrate) 02/12/2022 Omeprazole Oral Delayed Release Capsule 12/24/2022 Prochlorperazine Oral 01/21/2022 Allergies Sulfamide and metformin Family History Unremarkable. ??Multiple first-degree and??second-degree family members with prostate cancer Social History Never smoker. ??No significant alcohol use.?? Lives with in??[place].?He was in the [employer]??and served in [employer].?? They traveled to??[facility]for the winter months. Vital Signs Blood pressure: 122/62, R arm, Regular, Pulse: 67, Temperature: 97.4 F, Respirations: 16, O2 sat: 100%, At Rest, Room Air, Pain Scale: 2, Height: 68 in, Weight: 155.9 lb, BSA: 1.84, BMI: 23.7 kg/m2 Covid-19 vaccine (Pfizer) (01/01/2022); Covid-19 vaccine (Pfizer) (01/01/2022); Covid-19 vaccine (Pfizer) (05/21/2022); Covid-19 vaccine (Pfizer) (01/01/2022); Covid-19 vaccine (Pfizer) (09/02/2023),Patient declined/rejected; Covid-19 vaccine (Pfizer) (06/01/2024); Flu vaccine - Adult (03/30/2024); Flu vaccine - Adult (09/02/2023), Patient declined/rejected; Flu vaccine - Adult (04/15/2022); Fluvaccine - Adult (04/08/2023) Performance Status ECOG or [facility] ECO Symptoms, [...] Other Studies Lab Results CBC Lab Results 12/20/2024 11/20/2024 10/13/2024 09/15/2024 09/15/1908/24/2024 CBC WBC x 10^3/uL 3.8 6.0 4.2 6.8 5.5 RBC x 10^6/uL 3.22 (L) 3.24 (L) 3.70 (L) 4.08 (L) 4.08 (L) NRBC % /100 wbc 0.0 0.0 0.0 0.0 0.0 HGB g/dL 11.5 (L) 11.3 (L) 12.3 (L) 13.5 13.6 HCT % 34.0 (L) 33.6 (L) 36.8 (L) 40.3 41.1 MCV fL 105.6 (H) 103.7 99.5 98.8 100.7 MCH pg 35.7 (H) 34.9 33.2 33.1 33.3 MCHC g/dL 33.8 33.6 33.4 33.5 33.1 RDW % 15.30 16.60 (H) 15.20 13.30 13.00 PLT x 10^3/uL 176 139 162 148 158 MPV fL 10.0 10.2 10.4 10.5 10.7 Tatyana % 56.1 67.3 46.9 62.9 69.2 LY % 33.3 23.4 43.1 (H) 30.0 20.6 MO % 8.7 7.6 6.9 5.4 (L) 7.9 EO % 1.3 1.3 2.4 1.3 1.7 IG % 0.3 0.2 0.2 0.1 0.4 Tatyana # (ANC) x 10^3/uL 2.1 4.0 2.0 4.3 3.8 BA % 0.3 0.2 0.5 0.3 0.2 MO # x 10^3/uL 0.3 0.5 0.3 0.4 0.4 EO # x 10^3/uL 0.1 0.1 0.1 0.1 0.1 BA # x 10^3/uL 0.0 0.0 0.0 0.0 0.0 IG # x 10^3/uL 0.01 0.01 0.01 0.01 0.02 LY # x 10^3/uL 1.3 1.4 1.8 2.0 1.1 Chemistries Lab Results 12/20/2024 11/20/2024 10/13/2024 09/15/2024 09/15/1908/24/2024 Chemistries Glucose mg/dL 99 110 (H) 106 (H) 175 (H) BUN mg/dL 26.0 (H) 20.0 27.0 (H) 29.0 (H) Creatinine mg/dL 1.60 (H) 1.50 (H) 1.70 (H) 1.60 (H) Sodium mmol/L 137 136 (L) 135 (L) 137 Potassium mmol/L 4.3 4.4 4.7 3.8 Chloride mmol/L 107 103 104 104 CO2 mmol/L 22 24 27 23 Calcium mg/dL 7.4 (LL) 7.4 Critical chemistry value obtained. (LL) 7.7 (L) 8.2 (L) Albumin g/dL 2.7 (L) 2.9 (L) 3.2 (L) 3.4 (L) Total protein g/dL 5.1 (L) 5.4 (L) 5.6 (L) 5.9 (L) Bilirubin, total mg/dL 0.5 0.4 0.3 0.6 Alkaline phosphatase U/L 120 106 110 110 AST/SGOT U/L 45 48 55 38 ALT/SGPT U/L 33 32 36 27 GFR estimate mL/min/1.73m2 43.2 (L) 46.7 (L) 40.2 (L) 43.2 (L) ? Surveys/Consents/Other Discussions Gio Lopez MD CC: Ulises Dowell MD FAX Beto Arguelles MD (Referring) MD Jess Valentin MD Electronically signed by Gio Lopez MD 12/20/2024 18:53 CDT
--- OUTSIDE RECORDS SUMMARY | 2024-12-31 11:38 | XMS_ITS | CCD ---
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 Name Role Phone Gio Lopez MD Unavailable Unavailable Allergies and Adverse Reactions Medication/Group Name Reaction Severity Date metformin 12/20/2024 Sulfamide Mild to moderate 12/20/2024 Care Plan Date Type Value 01/24/2025 APPOINTMENT OV [...] 30 MIN 01/06/2024 APPOINTMENT LAB 15 MIN 01/06/2024 LABORDER CMP 01/06/2024 LABORDER CBC w/ auto diff 01/06/2024 LABORDER TSH w/ reflex to free T4 01/27/2024 LABORDER CBC w/ auto diff 01/27/2024 LABORDER CMP 01/27/2024 LABORDER TSH w/ reflex to free T4 02/17/2024 LABORDER CMP 02/17/2024 LABORDER TSH w/ reflex to free T4 02/17/2024 LABORDER CBC w/ auto diff 02/17/2024 LABORDER CMP 02/17/2024 LABORDER TSH w/ reflex to free T4 02/17/2024 LABORDER CBC w/ auto diff 02/24/2024 LABORDER CMP 03/03/2024 LABORDER CMP 03/03/2024 LABORDER TSH w/ reflex to free T4 03/03/2024 LABORDER CBC w/ auto diff 03/09/2024 LABORDER PET/CT scan, sku ll base/mid thigh 03/30/2024 LABORDER CMP 03/30/2024 LABORDER CBC w/ auto diff 03/30/2024 LABORDER TSH w/ reflex to free T4 03/30/2024 LABORDER X-ray ribs 04/21/2024 LABORDER CMP 04/21/2024 LABORDER TSH w/ reflex to free T4 04/21/2024 LABORDER CBC w/ auto diff 04/27/2024 LABORDER PET/CT scan, sku ll base/mid thigh 05/11/2024 LABORDER CMP 05/11/2024 LABORDER TSH w/ reflex to free T4 05/11/2024 LABORDER CBC w/ auto diff 06/01/2024 LABORDER CMP 06/01/2024 LABORDER TSH w/ reflex to free T4 06/01/2024 LABORDER CBC w/ auto diff 08/17/2024 LABORDER PET/CT scan, sku ll base/mid thigh 08/24/2024 LABORDER CMP 08/24/2024 LABORDER TSH w/ reflex to free T4 08/24/2024 LABORDER CBC w/ auto diff 09/14/2024 LABORDER CMP 09/14/2024 LABORDER CBC w/ auto diff 09/14/2024 LABORDER TSH w/ reflex to free T4 09/15/2024 LABORDER Protein (dipstic k) panel 09/15/2024 LABORDER Protein/creatini ne ratio, random urine panel 10/13/2024 LABORDER CMP 10/13/2024 LABORDER TSH w/ reflex to free T4 10/13/2024 LABORDER CBC w/ auto diff 10/13/2024 LABORDER Protein/creatini ne ratio, random urine panel 11/20/2024 LABORDER Protein/creatini ne ratio, random urine panel 11/20/2024 LABORDER CBC w/ auto diff 11/20/2024 LABORDER TSH w/ reflex to free T4 11/20/2024 LABORDER CMP 12/20/2024 LABORDER PET/CT scan, sku ll base/mid thigh 12/20/2024 LABORDER CBC w/ auto diff 12/20/2024 LABORDER Protein/creatini ne ratio, random urine panel 12/20/2024 LABORDER CMP 12/20/2024 LABORDER Swallowing Study 01/24/2025 LABORDER Protein (dipstic k) panel 01/24/2025 LABORDER CBC w/ auto diff 01/24/2025 LABORDER TSH w/ reflex to free T4 01/24/2025 LABORDER CMP 01/24/2025 LABORDER Protein/creatini ne ratio, random urine panel Reason for Visit OV 20 MIN Encounters Date Name 01/24/2025 Renal cell carcinoma (disorder) 01/24/2025 Renal cell carcinoma (disorder) 01/24/2025 Acute kidney failure 01/24/2025 Acute kidney failure 12/20/2024 Chronic kidney disea se 12/20/2024 Oropharyngeal dyspha yanet 12/20/2024 Oropharyngeal dyspha yanet 12/20/2024 Acute kidney failure 12/20/2024 Other salvage determiner (cur rent) drug therapy 12/20/2024 Acute kidney failure 12/20/2024 Renal cell carcinoma (disorder) 12/20/2024 Chronic kidney disea se 12/20/2024 Renal cell carcinoma (disorder) 12/20/2024 Other salvage determiner (cur rent) drug therapy 01/24/2025 OV 20 MIN 01/24/2025 LAB 15 MIN 12/20/2024 Oropharyngeal dyspha yanet 12/20/2024 Diarrhea (finding) 12/20/2024 Liver metastasis 12/20/2024 Renal cell carcinoma (disorder) 12/20/2024 LAB 10 MIN 12/18/2024 OUTSIDE TEST 5 MIN Functional Status Date Name Score 05/28/2022 Karnofsky performance status 90 02/12/2022 ECOG performance status - grade 1 1 01/21/2022 ECOG performance status - grade 0 0 02/25/2023 Karnofsky performance status 90 12/24/2022 Karnofsky performance status 90 03/18/2023 Karnofsky performance status 90 11/12/2022 Karnofsky performance status 90 10/14/2023 Karnofsky performance status 90 05/20/2023 Karnofsky performance status 90 09/02/2023 Karnofsky performance status 90 04/21/2024 Karnofsky performance status 80 01/06/2024 Karnofsky performance status 90 02/17/2024 Karnofsky performance status 80 03/09/2024 Karnofsky performance status 80 Immunizations Date Name Route Dose Instructions Refusal Reason Stat us Covid-19 vaccine (Pfizer) Flu vaccine - Adult Diagnostic Results Date Type Test Units Lower Limit Upper Limit Result Flag Comments Status Ordered By Specimen Source Lab Address 11/20 TSH w/ refle x to free T4 TSH uIU/mL 0.47 4.68 1.59 FINAL Gio Lopez * [place] [facility] [place] [facility] , [address] [facility] [id number] 0 09/15 Prote in (dips tick) panel Prote in (ua) 3+ Abnor mal FINAL [facility] [place] [facility] , [facility] [address] [facility] [id number] 0 12/21 Prote in/cr eatin ine ratio , rando m urine panel CREAT ININE , RANDO M URINE mg/dL 20.0 320.0 27 FINAL Gio VALDES, [facility] [address] [place] [id number] 4 12/21 Prote in/cr eatin ine ratio , rando m urine panel PROTE IN/CR EATIN INE RATIO mg/gcr eat 25.0 148.0 1593 High FINAL Gio VALDES, [facility] [address] [place] [id number] 4 12/21 Prote in/cr eatin ine ratio , keveno m urine panel PROTE IN, TOTAL , RANDO M UR mg/dL 5.0 25.0 43 High FINAL Gio VALDES, [facility] [address] [place] [id number] 4 04/21 CBC w/ auto diff Plate let, immat ure, fract ion % 0.9 11.2 3.8 FINAL Gio Lopez [place] [facility] - [facility], [address] [facility] [phone] 0 12/20 CBC w/ auto diff Tatyana # (ANC) K/uL 1.6 6.6 2.1 FINAL [facility] [place] [facility] , [address] [place] [id number] 0 12/20 CBC w/ auto diff IG % % 0.0 0.5 0.3 FINAL Gio Lopez [place] [facility] [place] [facility] , [address] [place] [id number] 0 12/20 CBC w/ auto diff MO # K/uL 0.2 1.3 0.3 FINAL Gio Lopez [place] [facility] [place] [facility] , [address] [place] [id number] 0 12/20 CBC w/ auto diff MCV fL 80.0 104.0 105.6 High FINAL Gio Lopez [place] [facility] [place] [facility] , [address] [place] [id number] 0 12/20 CBC w/ auto diff IG # K/uL 0.0 0.03 0.01 FINAL Gio Lopez [place] [facility] [place] [facility] , [address] [place] [id number] 0 12/20 CBC w/ auto diff MO % % 6.0 15.0 8.7 FINAL Gio Lopez [place] [facility] [place] [facility] , [address] [place] [id number] 0 12/20 CBC w/ auto diff EO # K/uL 0.0 0.6 0.1 FINAL Gio Lopez [place] [facility] [place] [facility] , [address] [place] [id number] 0 12/20 CBC w/ auto diff EO % % 0.0 7.0 1.3 FINAL Gio Lopez [place] [facility] [place] [facility] , [address] [place] [id number] 0 12/20 CBC w/ auto diff RBC M/uL 4.2 5.6 3.22 Low FINAL Gio Lopez [place] [facility] [place] [facility] , [address] [place] [id number] 0 12/20 CBC w/ auto diff MPV fL 9.5 13.4 10.0 FINAL Gio Lopez [place] [facility] [place] [facility] , [address] [place] [id number] 0 12/20 CBC w/ auto diff WBC K/uL 3.0 8.9 3.8 FINAL Gio Lopez [place] [facility] [place] [facility] , [address] [place] [id number] 0 12/20 CBC w/ auto diff PLT K/uL 113.0 364.0 176 FINAL Gio Lopez [place] [facility] [place] [facility] , [address] [place] [id number] 0 12/20 CBC w/ auto diff BA % % 0.0 2.0 0.3 FINAL Gio Lopez [place] [facility] [place] [facility] , [address] [place] [id number] 0 12/20 CBC w/ auto diff BA # K/uL 0.0 0.2 0.0 FINAL Gio Lopez [place] [facility] [place] [facility] , [address] [place] [id number] 0 12/20 CBC w/ auto diff HGB g/dL 12.5 16.6 11.5 Low FINAL Gio Lopez [place] [facility] [place] [facility] , [address] [place] [id number] 0 12/20 CBC w/ auto diff RDW % 11.3 15.6 15.30 FINAL Gio Lopez [place] [facility] [place] [facility] , [address] [place] [id number] 0 12/20 CBC w/ auto diff LY % % 14.0 41.0 33.3 FINAL Gio Lopez [place] [facility] [place] [facility] , [address] [place] [id number] 0 12/20 CBC w/ auto diff LY # K/uL 0.4 3.6 1.3 FINAL Gio Lopez [place] [facility] [place] [facility] , [address] [place] [id number] 0 12/20 CBC w/ auto diff MCH pg 26.0 35.0 35.7 High FINAL Gio Lopez [place] [facility] [place] [facility] , [address] [place] [id number] 0 12/20 CBC w/ auto diff MCHC g/dL 30.0 35.0 33.8 FINAL Gio Lopez [place] [facility] [place] [facility] , [address] [place] [id number] 0 12/20 CBC w/ auto diff NRBC % #/100W BC 0.0 0.2 0.0 FINAL Gio Lopez [place] [facility] [place] [facility] , [address] [place] [id number] 0 12/20 CBC w/ auto diff HCT % 39.0 49.0 34.0 Low FINAL Gio Lopez [place] [facility] [place] [facility] , [address] [place] [id number] 0 12/20 CBC w/ auto diff Tatyana % % 43.0 74.0 56.1 FINAL Gio Lopez [place] [facility] [place] [facility] , [address] [place] [id number] 0 06/08 [facility] [place] 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 employment coach d 12/20 CMP Alkal ine phosp hatas e U/L 36.0 125.0 117 FINAL Gio Lopez * [facility] , [address] [facility] [id number] 0 12/20 CMP ALT/S GPT U/L 0.0 49.0 33 FINAL Gio Lopez * [facility] , [address] [facility] [id number] 0 12/20 CMP Calci um mg/dL 8.4 10.2 7.7 Low FINAL Gio Lopez * [facility] [place] , [address] [facility] [address] [facility] [id number] 0 12/20 CMP GFR estim ate ml/min /1.73m ^2 35.1 Low GFR is calculate d using the CKD-EPI equation. FINAL Gio Lopez * [facility] , [address] [facility] [address] [facility] [id number] 0 12/20 CMP CO2 mmol/L 22.0 30.0 [...] hour stability window. FINAL Gio Lopez * [facility] , [address] [facility] [id number] 0 12/20 CMP Gluco se mg/dL 74.0 100.0 130 High FINAL Gio Lopez * [facility] , [address] [facility] [id number] 0 12/20 CMP Chlor viola mmol/L 96.0 107.0 105 FINAL Gio Lopez * [facility] , [address] [id number] 0 12/20 CMP Total prote in g/dL 6.3 8.2 5.5 Low FINAL Gio John * [facility] , [address] [facility] [id number] 0 12/20 CMP BUN mg/dL 9.0 20.0 33.0 High FINAL Gio Lopez * [facility] , [address] [facility] [id number] 0 12/20 CMP Creat inine mg/dL 0.66 1.25 1.90 High FINAL Gio John * [facility] , [address] [id number] 0 12/20 CMP AST/S GOT U/L 17.0 59.0 45 FINAL Gio Lopez * [facility] , [address] [id number] 0 12/20 CMP Album in g/dL 3.5 5.0 2.9 Low FINAL Gio John * [facility] , [address] [id number] 0 12/20 CMP Bilir ubin, total mg/dL 0.2 1.3 0.2 FINAL Gio Lopez * [facility] , [address] [facility] [id number] 0 12/20 CMP Sodiu m mmol/L 137.0 145.0 132 Low FINAL Gio John * [facility] , [address] [facility] [id number] 0 12/20 CMP Potas sium mmol/L 3.5 5.1 4.6 FINAL Gio John * [facility] , [address] [facility] [id number] Medications Administered Date Name Route Dose Frequency Instructions Start Date End Date Status 2024 Sodium Chloride IV 0.9 % intravenously 1000.0 mL once 09/22 inactive 2024 4 ML pembrolizumab 25 MG/ML Injection intravenously 200.0 mg once Dilute with NS or D5W to a final concentration of 1-10 mg/mL. Infuse with low protein binding filter (0.2 - 5 micron). Do not mix with other drugs. Do not shake. 08/24 inactive 2024 4 ML pembrolizumab 25 MG/ML Injection intravenously 200.0 mg once Dilute with NS or D5W to a final concentration of 1-10 mg/mL. Infuse with low protein binding filter (0.2 - 5 micron). Do not mix with other drugs. Do not shake. 06/01 inactive 2023 4 ML pembrolizumab 25 MG/ML Injection intravenously 200.0 mg once Dilute with NS or D5W to a final concentration of 1-10 mg/mL. Infuse with low protein binding filter (0.2 - 5 micron). Do not mix with other drugs. Do not shake. 05/11 inactive 2023 4 ML pembrolizumab 25 MG/ML Injection intravenously 200.0 mg once Dilute with NS or D5W to a final concentration of 1-10 mg/mL. Infuse with low protein binding filter (0.2 - 5 micron). Do not mix with other drugs. Do not shake. 04/21 inactive 2023 4 ML pembrolizumab 25 MG/ML Injection intravenously 200.0 mg once Dilute with NS or D5W to a final concentration of 1-10 mg/mL. Infuse with low protein binding filter (0.2 - 5 micron). Do not mix with other drugs. Do not shake. 03/30 inactive 2023 4 ML pembrolizumab 25 MG/ML Injection intravenously 200.0 mg once Dilute with NS or D5W to a final concentration of 1-10 mg/mL. Infuse with low protein binding filter (0.2 - 5 micron). Do not mix with other drugs. Do not shake. 03/09 inactive 2023 4 ML pembrolizumab 25 MG/ML Injection intravenously 200.0 mg once Dilute with NS or D5W to a final concentration of 1-10 mg/mL. Infuse with low protein binding filter (0.2 - 5 micron). Do not mix with other drugs. Do not shake. 02/16 inactive 2023 4 ML pembrolizumab 25 MG/ML Injection intravenously 200.0 mg once Dilute with NS or D5W to a final concentration of 1-10 mg/mL. Infuse with low protein binding filter (0.2 - 5 micron). Do not mix with other drugs. Do not shake. 01/26 inactive 2023 4 ML pembrolizumab 25 MG/ML Injection intravenously 200.0 mg once Dilute with NS or D5W to a final concentration of 1-10 mg/mL. Infuse with low protein binding filter (0.2 - 5 micron). Do not mix with other drugs. Do not shake. 01/05 inactive Medications Date Name Route Dose Frequency Instructions Start Date End Date Status Furosemide Oral daily a ctive Acetaminophen Oral daily active Pantoprazole (Sodium) Oral Delayed Release daily inac tive Tamsulosin Oral daily a ctive Polyethylene Glycol Oral Powder daily inactive Lisinopril Oral daily a ctive Ciprofloxacin Oral BID inactive Levothyroxine Oral 100.0 mcg daily stopped Metoprolol Oral (Tartrate) 1.0 tablet BID active Diltiazem Oral daily 240mg daily active Glipizide Oral daily 2.5mg daily inactive Miscellaneous Drug BID Metamucil capsules BID inactive Lisinopril-Hydr ochlorothiazide Oral 20 mg-12.5 mg BID inactive Valsartan Oral QD in active Omeprazole Oral Delayed Release Capsule daily active 11/20 cabozantinib 20 MG Oral Tablet [Cabometyx] orally 40.0 mg daily Take on an empty stomach, 1 hour before or 2 hours after food. 2024 active 11/20 mirtazapine 15 MG Oral Tablet orally 1.0 tablet every day at bedtime 11/20 inactive 08/25 cabozantinib 20 MG Oral Tablet [Cabometyx] orally 60.0 mg daily Take on an empty stomach, 1 hour before or 2 hours after food. 2024 active 08/25 ondansetron 8 MG Oral Tablet orally 8.0 mg every 8 hours 2024 active 08/24 1 ML epinephrine 1 [...] only upon physician approval. 2024 active 08/24 diphenhydramine hydrochloride 0.5 MG/ML [...] only upon physician approval. 2024 active 05/11 1 ML epinephrine 1 MG/ML [...] only upon physician approval. 2023 active 05/11 Methylprednisol one IV intravenously 125.0 mg Re-initiate treatment only upon physician approval. 2023 active 05/10 Lenvima 10 MG Daily Dose 30 Day Supply Pack 05/10 inactive 04/21 famotidine 10 MG/ML Injectable Solution intravenously [...] only upon physician approval. 2023 active 04/21 Hydralazine Oral oral tablet three times per day 2023 inactive 03/30 1 ML epinephrine 1 MG/ML Injection [...] treatment only upon physician approval. 2023 active 03/03 mirtazapine 15 MG Oral Tablet orally 1.0 tablet every day at bedtime 03/03 inactive 02/16 Hydrocortisone IV intravenously 100.0 mg Re-initiate [...] treatment only upon physician approval. 2023 active 06/18 Cranberry Oral oral Once every 0.5 Days 2022 inactive Problems Diagnosis Status Date of Diagnosis Resolution Date Poor appetite Active Renal cell carcinoma (disorder) Active Cancer with lung metastasis Active Renal cell carcinoma (disorder) Active Cancer with lung metastasis Active Liver metastasis Active Chronic kidney disease Active Oropharyngeal dysphagia Active Other salvage determiner (current) drug therapy Active Acute kidney failure Active Diarrhea (finding) Active 04/21/2022 Fatigue Active Procedures Date Category Name Instructions Status 01/06/2024 Physician Order RTC MD/PIGMENT AND LACQUER MIXER/Chemo keytruda Orde red 01/27/2024 Physician Order RTC MD/PIGMENT AND LACQUER MIXER Dr. Lopez or and pembro to follow Ordered 02/17/2024 Physician Order RTC MD/PIGMENT AND LACQUER MIXER Dr. Lopez or and pembro to follow Ordered 02/17/2024 Physician Order RTC PIGMENT AND LACQUER MIXER/PA and infusion Ordered 03/09/2024 Physician Order RTC MD infusion Orde red 03/09/2024 Physician Order PET/CT scan, sku ll base/mid thigh metastatic renal cell follow up directly compare to last imaging (10/2023) pt on immunotherapy Ordered 03/30/2024 Physician Order X-ray ribs right sided anterior rib pain. patient with h/o metastatic RCC. Ordered 03/31/2024 Physician Order RTC PIGMENT AND LACQUER MIXER/PA and infusion keytruda Ordered 04/21/2024 Physician Order RTC MD infusion keytruda Orde red 04/27/2024 Physician Order PET/CT scan, sku ll base/mid thigh metastatic renal cell follow up directly compare to last imaging (02/28/24). 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 patient is on pembrolizumab/lenvima Ordered 08/24/2024 Physician Order RTC MD infusion keytruda Orde red 08/31/2024 Physician Order Monitoring Guidance Recom mended Monitoring:- Assess patients for thyroid dysfunction prior to the initiation of cabozantinib and as clinically indicated during treatment.- Monitor blood pressure, thyroid function, and urine protein regularly during treatment.- Monitor blood calcium levels and replace calcium as necessary during treatment.- Refer to cabozantinib prescribing information for dose adjustment recommendations for toxicity. Ordered 08/31/2024 Physician Order Monitoring Guidance Recom mended Monitoring:- Assess patients for thyroid dysfunction prior to the initiation of cabozantinib and as clinically indicated during treatment.- Monitor blood pressure, thyroid function, and urine protein regularly during treatment.- Monitor blood calcium levels and replace calcium as necessary during treatment.- Refer to cabozantinib prescribing information for dose adjustment recommendations for toxicity. Ordered 09/14/2024 Physician Order RTC MD Ordered 09/22/2024 Physician Order RTC nurse for hydration O K for 1L NS per Dr. Lopez d/t recent diarrhea Ordered 09/30/2024 Physician Order Monitoring Guidance Recom mended Monitoring:- Assess patients for thyroid dysfunction prior to the initiation of cabozantinib and as clinically indicated during treatment.- Monitor blood pressure, thyroid function, and urine protein regularly during treatment.- Monitor blood calcium levels and replace calcium as necessary during treatment.- Refer to cabozantinib prescribing information for dose adjustment recommendations for toxicity. Ordered 10/13/2024 Physician Order RTC Ordered 10/30/2024 Physician Order Monitoring Guidance Recom mended Monitoring:- Assess patients for thyroid dysfunction prior to the initiation of cabozantinib and as clinically indicated during treatment.- Monitor blood pressure, thyroid function, and urine protein regularly during treatment.- Monitor blood calcium levels and replace calcium as necessary during treatment.- Refer to cabozantinib prescribing information for dose adjustment recommendations for toxicity. Ordered 11/20/2024 Physician Order RTC Ordered 11/29/2024 Physician Order Monitoring Guidance Recom mended Monitoring:- Assess patients for thyroid dysfunction prior to the initiation of cabozantinib and as clinically indicated during treatment.- Monitor blood pressure, thyroid function, and urine protein regularly during treatment.- Monitor blood calcium levels and replace calcium as necessary during treatment.- Refer to cabozantinib prescribing information for dose adjustment recommendations for toxicity. Ordered 12/20/2024 Physician Order Swallowing Study video sw allow study by OT or speech therapy Ordered 12/20/2024 Physician Order PET/CT scan, sku ll base/mid thigh metastatic renal cell follow up directly compare to last imaging 07/2024. Ordered 12/20/2024 Physician Order RTC Ordered 12/29/2024 Physician Order Monitoring Guidance Recom mended Monitoring:- Assess patients for thyroid dysfunction prior to the initiation of cabozantinib and as clinically indicated during treatment.- Monitor blood pressure, thyroid function, and urine protein regularly during treatment.- Monitor blood calcium levels and replace calcium as necessary during treatment.- Refer to cabozantinib prescribing information for dose adjustment recommendations for toxicity. Ordered 01/20/2025 Physician Order RTC Ordered 01/28/2025 Physician Order Monitoring Guidance Recom mended Monitoring:- Assess patients for thyroid dysfunction prior to the initiation of cabozantinib and as clinically indicated during treatment.- Monitor blood pressure, thyroid function, and urine protein regularly during treatment.- Monitor blood calcium levels and replace calcium as necessary during treatment.- Refer to cabozantinib prescribing information for dose adjustment recommendations for toxicity. Ordered Social History Date Name Value 08/24/2024 Smoking Status Never smoker 12/20/2024 Sex Male Visits Date Type Value 01/24/2025 OV 20 MIN 01/24/2025 LAB 15 MIN Vital Signs Date Type Value 01/06/2024 Body Temperature 96.20 01/06/2024 Heart Beat 58.00 01/06/2024 BSA 1.89 01/06/2024 BMI 25.36 01/06/2024 Height 68.00 01/06/2024 Weight 166.80 01/06/2024 Pain Scale 2.00 01/06/2024 Intravascular Systolic 136 01/06/2024 Intravascular Diastolic 72 01/06/2024 Oxygen Saturation 97.00 01/06/2024 Respiratory Rate 16.00 01/27/2024 Pain Scale 0.00 01/27/2024 BMI 25.54 01/27/2024 Height 68.00 01/27/2024 Weight 168.00 01/27/2024 BSA 1.90 01/27/2024 Oxygen Saturation 98.00 01/27/2024 Respiratory Rate 16.00 01/27/2024 Heart Beat 61.00 01/27/2024 Body Temperature 96.90 01/27/2024 Intravascular Systolic 126 01/27/2024 Intravascular Diastolic 78 02/17/2024 Oxygen Saturation 98.00 02/17/2024 Body Temperature 97.50 02/17/2024 Heart Beat 51.00 02/17/2024 Respiratory Rate 16.00 02/17/2024 Intravascular Systolic 138 02/17/2024 Intravascular Diastolic 72 02/17/2024 Pain Scale 2.00 02/17/2024 Weight 164.20 02/17/2024 Height 68.00 02/17/2024 BMI 24.97 02/17/2024 BSA 1.88 03/03/2024 Oxygen Saturation 95.00 03/03/2024 Body Temperature 96.60 03/03/2024 Heart Beat 59.00 03/03/2024 Respiratory Rate 16.00 03/03/2024 BSA 1.89 03/03/2024 Height 68.00 03/03/2024 Weight 167.20 03/03/2024 Pain Scale 0.00 03/03/2024 Intravascular Systolic 148 03/03/2024 Intravascular Diastolic 82 03/03/2024 BMI 25.42 03/09/2024 Body Temperature 95.80 03/09/2024 Heart Beat 61.00 03/09/2024 Respiratory Rate 16.00 03/09/2024 Oxygen Saturation 98.00 03/09/2024 Intravascular Systolic 170 03/09/2024 Intravascular Diastolic 81 03/09/2024 Pain Scale 0.00 03/09/2024 Weight 167.30 03/09/2024 Height 68.00 03/09/2024 BMI 25.44 03/09/2024 BSA 1.89 03/30/2024 Height 68.00 03/30/2024 Respiratory Rate 16.00 03/30/2024 Heart Beat 57.00 03/30/2024 Body Temperature 96.50 03/30/2024 Oxygen Saturation 98.00 03/30/2024 Intravascular Systolic 170 03/30/2024 Intravascular Diastolic 84 03/30/2024 Intravascular Systolic 162 03/30/2024 Intravascular Diastolic 76 03/30/2024 BSA 1.85 03/30/2024 BMI 24.02 03/30/2024 Weight 158.00 03/30/2024 Pain Scale 8.00 04/21/2024 Height 68.00 04/21/2024 Oxygen Saturation 98.00 04/21/2024 Body Temperature 97.80 04/21/2024 Heart Beat 61.00 04/21/2024 BSA 1.90 04/21/2024 Respiratory Rate 18.00 04/21/2024 Intravascular Systolic 176 04/21/2024 Intravascular Diastolic 80 04/21/2024 Pain Scale 0.00 04/21/2024 Weight 167.60 04/21/2024 BMI 25.48 05/11/2024 Intravascular Systolic 142 05/11/2024 Intravascular Diastolic 92 05/11/2024 Oxygen Saturation 98.00 05/11/2024 Respiratory Rate 16.00 05/11/2024 Heart Beat 59.00 05/11/2024 BMI 25.50 05/11/2024 Pain Scale 0.00 05/11/2024 Weight 167.70 05/11/2024 Height 68.00 05/11/2024 BSA 1.90 05/11/2024 Body Temperature 97.50 06/01/2024 Height 68.00 06/01/2024 Body Temperature 97.50 06/01/2024 BSA 1.90 06/01/2024 BMI 25.71 06/01/2024 Weight 169.10 06/01/2024 Pain Scale 0.00 06/01/2024 Intravascular Systolic 178 06/01/2024 Intravascular Diastolic 80 06/01/2024 Oxygen Saturation 97.00 06/01/2024 Respiratory Rate 16.00 06/01/2024 Heart Beat 64.00 08/24/2024 Oxygen Saturation 97.00 08/24/2024 BMI 23.46 08/24/2024 Height 68.00 08/24/2024 Weight 154.30 08/24/2024 BSA 1.83 08/24/2024 Intravascular Systolic 116 08/24/2024 Intravascular Diastolic 72 08/24/2024 Respiratory Rate 16.00 08/24/2024 Heart Beat 66.00 08/24/2024 Body Temperature 97.40 08/24/2024 Pain Scale 0.00 09/14/2024 Height 68.00 09/14/2024 BMI 24.42 09/14/2024 BSA 1.86 09/14/2024 Oxygen Saturation 95.00 09/14/2024 Body Temperature 97.10 09/14/2024 Heart Beat 64.00 09/14/2024 Respiratory Rate 16.00 09/14/2024 Intravascular Systolic 130 09/14/2024 Intravascular Diastolic 86 09/14/2024 Pain Scale 0.00 09/14/2024 Weight 160.60 09/22/2024 Oxygen Saturation 97.00 09/22/2024 Body Temperature 97.20 09/22/2024 Heart Beat 63.00 09/22/2024 Respiratory Rate 16.00 09/22/2024 Intravascular Systolic 135 09/22/2024 Intravascular Diastolic 76 09/22/2024 Pain Scale 0.00 09/22/2024 Height 68.00 10/13/2024 Height 68.00 10/13/2024 BMI 25.12 10/13/2024 Weight 165.20 10/13/2024 Oxygen Saturation 96.00 10/13/2024 Body Temperature 97.20 10/13/2024 Heart Beat 61.00 10/13/2024 Respiratory Rate 16.00 10/13/2024 BSA 1.88 10/13/2024 Pain Scale 0.00 10/13/2024 Intravascular Systolic 162 10/13/2024 Intravascular Diastolic 81 11/20/2024 BSA 1.88 11/20/2024 BMI 24.97 11/20/2024 Height 68.00 11/20/2024 Weight 164.20 11/20/2024 Pain Scale 0.00 11/20/2024 Intravascular Systolic 158 11/20/2024 Intravascular Diastolic 78 11/20/2024 Oxygen Saturation 96.00 11/20/2024 Respiratory Rate 16.00 11/20/2024 Body Temperature 97.30 11/20/2024 Heart Beat 65.00 12/20/2024 BMI 23.70 12/20/2024 Weight 155.90 12/20/2024 Pain Scale 2.00 12/20/2024 Intravascular Systolic 122 12/20/2024 Intravascular Diastolic 62 12/20/2024 BSA 1.84 12/20/2024 Respiratory Rate 16.00 12/20/2024 Heart Beat 67.00 12/20/2024 Height 68.00 12/20/2024 Body Temperature 97.40 12/20/2024 Oxygen Saturation 100.00 Notes Section * Med Onc Follow-up Note [...] since early January 2022 to August 2024 -?Underwent cytoreductive nephrectomy on June 16, 2022. Surgical pathology showed grade 3 clear-cell renal cell carcinoma measuring 9.5 cm in the greatest dimension with invasion into the perinephric in the high lower adipose tissue. Surgical resection margins were negative. -The patient had a small isolated chest wall metastasis in October 2023 that was treated with SBRT while continuing first-line systemic therapy.? PET scan from?January 2024 was negative -PET scan from 04/2024 showed?a new?isolated?small chest wall metastasis measuring 0.7 cm.?The patient is asymptomatic.? He underwent another course of SBRT for the isolated metastasis so we can continue the same systemic therapy.? -PET scan from late July 2024 showed?disease progression.? The patient started second line?therapy in the form of cabozantinib 60 mg daily?on August 29, 2024. ?Due to diarrhea, dosage was decreased to 40 mg daily - Clinically stable.? PET/CT showed?stable liver metastasis and?the subpleural nodule?in the right fifth/sixth intercostal space.?However, there is development of?FDG avid thickening in the right inferior medial pleura?suspicious for?mild disease progression. ?The patient is asymptomatic from this, and there is no malignant pleural effusion 2. Hypothyroidism - Started levothyroxine 05/02/22 - TSH from today pending 3.?Chronic kidney disease 4.? Proteinuria -Cr relatively stable in 1.5-1.7 range -Has proteinuria which may or may not be related to RCC treatment.? Urine protein to Cr ratio down from 6.1 to 3.6 5.? Decreased oral intake due to dysgeusia and poor appetite -?Has not been taking Remeron due to side effects -?Tried zinc supplement for dysgeusia, but not working 6. Hypertension - Managed by nephrology 7.?Grade 1 diarrhea due to cabozantinib -Managed with Imodium as needed 8.? Oropharyngeal dysphagia - Affecting oral intake Plan 1.? Continue cabozantinib at reduced dosage of 40 mg daily 2.?Return to see me in 1 month for follow-up 3.? PET/CT in 3-4 months if clinically stable 4.?Continue Imodium as needed for diarrhea 5. ?Referring the patient to speech therapy for video swallow?evaluation for oropharyngeal dysphagia 6.? Continue levothyroxine.? TSH from today pending 7.? OK to continue Zinc 8.? F/u with nephrology for hypertension management and [...] Illness This is a very pleasant 79-year-old gentleman?who underwent a CT scan of the abdomen and pelvis with contrast?December 01, 2021 for evaluation of abdominal pain, and was found to have acute diverticulitis of the sigmoid colon, without any evidence of perforation. ?He was incidentally found to have a heterogenous?9.8 cm mass in the right kidney, likely representing renal cell carcinoma.? There were also?indeterminate liver lesions.? He subsequently underwent an MRI of the abdomen with and without contrast on December 25, 2021, which showed?a 10 cm superior right renal mass, likely renal cell carcinoma, with no local invasion or metastatic?disease?evident.? There were flash filling?hemangiomas measuring up to 10 mm?in the lateral aspect of segment V.? There was also a 5 mm?liver cyst?in segment II.?CT of the chest performed?on December 25, 2021?showed?2 suspicious lung lesions measuring 1.4 cm and 1.2 cm within the right upper lobe and right lower lobe.? Malignancy cannot be ruled out.? In addition, he was found to have subtle tiny?foci of decreased?density?within the T1 vertebral body and manubrium,?possibly related to osteoporosis, although metastatic disease cannot be excluded. He subsequently underwent a PET/CT?which showed findings suspicious?for a right-sided?renal cell carcinoma with?metastases involving a portacaval lymph node?and?nodule within the right lower and right upper lobes.? CT-guided?lung biopsy?confirmed?metastatic malignancy,but there was not enough tissue for?immunostains Repeat?biopsy of lung nodule was positive for renal cell carcinoma The patient started?Keytruda/Lenvima in the first-line setting on January 22, 2022 CT CAP 04/10/22 showed a good response to treatment so far. ?Primary tumor in the kidney is smaller. ?The biopsy-proven lung metastases are also smaller. ?The mildly enlarged portacaval lymph node which may or may not be related to his renal cell carcinoma is stable in size The patient underwent cytoreductive nephrectomy on?June 16, 2022. 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 ?Surgical resection marginswere negative. Restarted Keytruda and?Lenvima after surgery. Treatment was interrupted for a month in July-August due to rise in Cr?initially thought to be medication induced, but LANETTE resolved quickly and Cr has been stable in baseline 1.7-1.8 range after restarting treatment PET/CT from 09/2022 showed enlargement of the 2 lung metastases compared to the previous scan from March 2022. ?The portacaval lymph node is still very small, and actually has lower FDG uptake (now SUV max of 2.8) compared to last PET scan from December 2021. ?This remains indeterminate.? Unclear if this is real progression on first-line therapy or progression due to interruption of treatment. ?Since the last CT scan from March 2022, Lenvima was held from late April until early June due to diarrhea and surgery. ?Keytruda was interrupted due to surgery. ?Treatment was interrupted again in late July due to rising creatinine, which has now stabilized Discussed 2nd line treatment options. ?Patient decided to stay on first-line therapy in the formof Keytruda and Lenvima for now, while addressing the oligometastatic lung metastases with either SBRT or surgery. ?He also agreed to increased Lenvima dosage to 14 mg daily -He met with radiation oncology and surgery. ?Decided to pursue SBRT. PET/CT from February 01, 2023 showed expected response in the lung metastases treated with SBRT. ?The periportal lymph node is no longer hypermetabolic. ?There is a new tiny hypermetabolic lesion in the right humeral head. ?The patient reports no recent trauma to this area, so I think it is likely a small metastasis. ?He currently has no pain, and range of motion is intact.? This was treated with SBRT 02/26/2023 PET/CT from 04/28/2023 showed no new disease. ?The 2 lung mets and possible humeral head met thathave been radiated have decreased further in FDG uptake, consistent with response to radiation PET/CT from 07/2023 negative PET/CT from October 2023 showed development of an isolated soft tissue nodule in the right internal mammary/intercostal region measuring 5 mm?suspicious for isolated metastasis.?We decided to continue with pembrolizumab/Lenvima?and refer the patient to radiation oncology to consider SBRT for the isolated metastasis The patient underwent?SBRT for isolated?chest wall metastasis?in mid November 2023 PET/CT 02/2024 shows no new disease PET scan 04/2024 showed a new isolated small chest wall metastasis measuring 0.7 cm. ?The patient is asymptomatic.? Referred to radiation therapy to consider SBRT for?isolated metastasis so we can continue the same systemic therapy PET scan 08/22/2023 showed a new FDG avid subcapsular lesion in the right hepatic lobe and a mildly FDG avid left upper lobe lung nodule, concerning for additional sites of metastatic disease. He started?cabozantinib?60 mg daily on August 29, 2024. ?Due to diarrhea, dosage was decreased to 40 mg daily Interval History The patient returns to clinic today for a follow-up visit.? Recently, he has developed worseningoropharyngeal dysphagia, with certain foods, especially?bread and other foods with similar consistency and texture.? As a result he has lost some weight.?He was?not able to tolerate mi rtazapine for?appetite stimulation?because it caused?significant?dizziness.?Dysgeusia is?perhaps slightly better on zinc.?He continues to experience diarrhea 2-3 times a day. ?This is managed with Imodium.? Denies any nausea, vomiting, or mucositis. Review of Systems Remaining 14 point comprehensive review of systems within normal limits. NCCN Distress Thermometer and Problem List were collected and documented in the patient chart.? Remarkable symptoms and concerns were discussed with the patient.? Any additional follow-up is indicated in the plan. Past Medical and Surgical History Hypertension BPH Atrial fibrillation, rate controlled, not on anticoagulation?due to previous GI bleeding Type 2 diabetes, on glipizide Current Medications Medication List Name Date Ondansetron Oral 08/25/2024 Acetaminophen Oral 12/31/2021 Diltiazem Oral 01/01/2022 Cabometyx (Cabozantinib Oral (Cabometyx) ) 11/20/2024 Furosemide Oral 12/20/2024 Tamsulosin Oral 12/31/2021 Levothyroxine 12/02/2023 Lisinopril Oral 08/24/2024 Metoprolol Oral (Tartrate) 02/12/2022 Omeprazole Oral Delayed Release Capsule 12/24/2022 Prochlorperazine Oral 01/21/2022 Allergies Sulfamide and metformin Family History Unremarkable. ?Multiple first-degree and?second-degree family members with prostate cancer Social History Never smoker. ?No significant alcohol use.? Lives with in?[place].?He was in the [employer]?and served in [id number].? They traveled to?[facility]?for the winter months. Vital Signs Blood pressure: 122/62, R arm, Regular, Pulse: 67, Temperature: 97.4 F, Respirations: 16, O2 sat: 100%, At Rest, Room Air, Pain Scale: 2, Height: 68 in, Weight: 155.9 lb, BSA: 1.84, BMI: 23.7 kg/m2 Covid-19 vaccine ([employer]) (01/01/2022); Covid-19 vaccine ([employer]) (01/01/2022); Covid-19 vaccine ([employer]) (05/21/2022); Covid-19 vaccine (Pfizer) (01/01/2022); Covid-19 vaccine [...] Physical Exam General: Awake, alert, and oriented. ?ECOG PS 0 Skin: ?No bruising or skin rash noted. Eyes: ? Sclera anicteric. ? Mouth: ?Moist mucous membranes without ulceration Lymphatics: No palpable lymphadenopathy Abdomen: ?Soft, nontender, nondistended. ? Extremities: ?Well perfused, no edema. Genetics/Molecular/Biomarkers * Renal cell [...] by Gio Lopez MD 12/20/2024 18:53 CDT * Med Onc Follow-up Note Patient [...] since early January 2022 to August 2024 -?Underwent cytoreductive nephrectomy on June 16, 2022. Surgical pathology showed grade 3 clear-cell renal cell carcinoma measuring 9.5 cm in the greatest dimension with invasion into the perinephric in the high lower adipose tissue. Surgical resection margins were negative. -The patient had a small isolated chest wall metastasis in October 2023 that was treated with SBRT while continuing first-line systemic therapy.? PET scan from?January 2024 was negative -PET scan from 04/2024 showed?a new?isolated?small chest wall metastasis measuring 0.7 cm.?The patient is asymptomatic.? He underwent another course of SBRT for the isolated metastasis so we can continue the same systemic therapy.? -PET scan from late July 2024 showed?disease progression.? The patient started second line?therapy in the form of cabozantinib 60 mg daily?on August 29, 2024. ?Due to diarrhea, dosage was decreased to 40 mg daily - Clinically stable.? Tolerating treatment OK. 2. Hypothyroidism - Started levothyroxine 05/02/22 - TSH from today pending 3.?Chronic kidney disease 4.? Proteinuria -Cr relatively stable in 1.5-1.7 range -Has proteinuria which may or may not be related to RCC treatment.? Urine protein to Cr ratio down from 6.1 to 4.5 5.? Decreased oral intake due to dysgeusia and poor appetite - Weight stable -?Has not been taking Remeron -?Tried zinc supplement for dysgeusia, but not working 6. 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 ?Continue cabozantinib at reduced dosage of 40 mg daily 2.?Return to see me in 1 month for follow-up 3.? PET/CT prior to return?to assess response to treatment 4.? Continue levothyroxine.? TSH from today pending 5.? Start Remeron 15 mg nightly to improve appetite. 6.?Okay to stop zinc supplements since?they are not helping him with dysgeusia 7.? F/u with nephrology for hypertension management and to follow up on CKD 8.?Continue Imodium?as needed for diarrhea Advanced Care Planning Not [...] Illness This is a very pleasant 79-year-old gentleman?who underwent a CT scan of the abdomen and pelvis with contrast?December 01, 2021 for evaluation of abdominal pain, and was found to have acute diverticulitis of the sigmoid colon, without any evidence of perforation. ?He was incidentally found to have a heterogenous?9.8 cm mass in the right kidney, likely representing renal cell carcinoma.? There were also?indeterminate liver lesions.? He subsequently underwent an MRI of the abdomen with and without contrast on December 25, 2021, which showed?a 10 cm superior right renal mass, likely renal cell carcinoma, with no local invasion or metastatic?disease?evident.? There were flash filling?hemangiomas measuring up to 10 mm?in the lateral aspect of segment V.? There was also a 5 mm?liver cyst?in segment II.?CT of the chest performed?on December 25, 2021?showed?2 suspicious lung lesions measuring 1.4 cm and 1.2 cm within the right upper lobe and right lower lobe.? Malignancy cannot be ruled out.? In addition, he was found to have subtle tiny?foci of decreased?density?within the T1 vertebral body and manubrium,?possibly related to osteoporosis, although metastatic disease cannot be excluded. He subsequently underwent a PET/CT?which showed findings suspicious?for a right-sided?renal cell carcinoma with?metastases involving a portacaval lymph node?and?nodule within the right lower and right upper lobes.? CT-guided?lung biopsy?confirmed?metastatic malignancy,but there was not enough tissue for?immunostains Repeat?biopsy of lung nodule was positive for renal cell carcinoma The patient started?Keytruda/Lenvima in the first-line setting on January 22, 2022 CT CAP 04/10/22 showed a good response to treatment so far. ?Primary tumor in the kidney is smaller. ?The biopsy-proven lung metastases are also smaller. ?The mildly enlarged portacaval lymph node which may or may not be related to his renal cell carcinoma is stable in size The patient underwent cytoreductive nephrectomy on?June 16, 2022. 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 ?Surgical resection marginswere negative. Restarted Keytruda and?Lenvima after surgery. Treatment was interrupted for a month in July-August due to rise in Cr?initially thought to be medication induced, but LANETTE resolved quickly and Cr has been stable in baseline 1.7-1.8 range after restarting treatment PET/CT from 09/2022 showed enlargement of the 2 lung metastases compared to the previous scan from March 2022. ?The portacaval lymph node is still very small, and actually has lower FDG uptake (now SUV max of 2.8) compared to last PET scan from December 2021. ?This remains indeterminate.? Unclear if this is real progression on first-line therapy or progression due to interruption of treatment. ?Since the last CT scan from March 2022, Lenvima was held from late April until early June due to diarrhea and surgery. ?Keytruda was interrupted due to surgery. ?Treatment was interrupted again in late July due to rising creatinine, which has now stabilized Discussed 2nd line treatment options. ?Patient decided to stay on first-line therapy in the formof Keytruda and Lenvima for now, while addressing the oligometastatic lung metastases with either SBRT or surgery. ?He also agreed to increased Lenvima dosage to 14 mg daily -He met with radiation oncology and surgery. ?Decided to pursue SBRT. PET/CT from February 01, 2023 showed expected response in the lung metastases treated with SBRT. ?The periportal lymph node is no longer hypermetabolic. ?There is a new tiny hypermetabolic lesion in the right humeral head. ?The patient reports no recent trauma to this area, so I think it is likely a small metastasis. ?He currently has no pain, and range of motion is intact.? This was treated with SBRT 02/26/2023 PET/CT from 04/28/2023 showed no new disease. ?The 2 lung mets and possible humeral head met thathave been radiated have decreased further in FDG uptake, consistent with response to radiation PET/CT from 07/2023 negative PET/CT from October 2023 showed development of an isolated soft tissue nodule in the right internal mammary/intercostal region measuring 5 mm?suspicious for isolated metastasis.?We decided to continue with pembrolizumab/Lenvima?and refer the patient to radiation oncology to consider SBRT for the isolated metastasis The patient underwent?SBRT for isolated?chest wall metastasis?in mid November 2023 PET/CT 02/2024 shows no new disease PET scan 04/2024 showed a new isolated small chest wall metastasis measuring 0.7 cm. ?The patient is asymptomatic.? Referred to radiation therapy to consider SBRT for?isolated metastasis so we can continue the same systemic therapy PET scan 08/22/2023 showed a new FDG avid subcapsular lesion in the right hepatic lobe and a mildly FDG avid left upper lobe lung nodule, concerning for additional sites of metastatic disease. He started?cabozantinib?60 mg daily on August 29, 2024. ?Due to diarrhea, dosage was decreased to 40 mg daily Interval History The patient returns to clinic today for a follow-up visit.? He denies any new?side effects related to the reduced dosage of cabozantinib.? However, he continues to report?decreased oral intake due to dysgeusia and?poor appetite.? With that said, his weight has been relatively stable at 164 pounds.? No significant nausea?or vomiting. ?He still has occasional diarrhea, which occurs every 2 to 3 days,?usually?2-3 episodes per day. Review of Systems Remaining 14 point comprehensive review of systems within normal limits. NCCN Distress Thermometer and Problem List were collected and documented in the patient chart.? Remarkable symptoms and concerns were discussed with the patient.? Any additional follow-up is indicated in the plan. Past Medical and Surgical History Hypertension BPH Atrial fibrillation, rate controlled, not on anticoagulation?due to previous GI bleeding Type 2 diabetes, [...] Allergies Sulfamide and metformin Family History Unremarkable. ?Multiple first-degree and?second-degree family members with prostate cancer Social History Never smoker. ?No significant alcohol use.? Lives with in?[place].?He was in the [employer]?and served in [place].? They traveled to?[facility]?for the winter months. Vital Signs Blood pressure: [...] Physical Exam General: Awake, alert, and oriented. ?ECOG PS 0 Skin: ?No bruising or skin rash noted. Eyes: ? Sclera anicteric. ? Mouth: ?Moist mucous membranes without ulceration Lymphatics: No palpable lymphadenopathy Abdomen: ?Soft, nontender, nondistended. ? Extremities: ?Well perfused, no edema. Genetics/Molecular/Biomarkers * Renal cell [...] since early January 2022 to August 2024 -?Underwent cytoreductive nephrectomy on June 16, 2022. Surgical pathology showed grade 3 clear-cell renal cell carcinoma measuring 9.5 cm in the greatest dimension with invasion into the perinephric in the high lower adipose tissue. Surgical resection margins were negative. -The patient had a small isolated chest wall metastasis in October 2023 that was treated with SBRT while continuing first-line systemic therapy.? PET scan from?January 2024 was negative -PET scan from 04/2024 showed?a new?isolated?small chest wall metastasis measuring 0.7 cm.?The patient is asymptomatic.? He underwent another course of SBRT for the isolated metastasis so we can continue the same systemic therapy.? -PET scan from late July 2024 showed?disease progression.? The patient started second line?therapy in the form of cabozantinib 60 mg daily?on August 29, 2024. ?Due to diarrhea, dosage was decreased to 40 mg daily 2. Hypothyroidism - Started levothyroxine 05/02/22 - TSH from today pending 3.?Chronic kidney disease 4.? Proteinuria -Relatively stable in 1.5-1.7 range -Has proteinuria which may or may not be related to RCC treatment.? Urine protein to Cr ratio down from 6.1 to 4.5 5.? Weight loss -Likely due to poor appetite and?diarrhea - On Remeron -Gained over 10 pounds back after stopping lenvatinib and switching to cabozantinib 6. Hypertension - Managed by nephrology Plan 1. ?Continue cabozantinib at reduced dosage of 40 mg daily 2.?Return to see me or ELPIDIO in 1 month for follow-up 3.? Continue levothyroxine.? TSH from today pending 4.? Continue Remeron 15 mg nightly to improve appetite. 5.? F/u with nephrology for hypertension management 6.? Will recheck urine protein to Cr ratio once a month 7.? Plan to repeat imaging studies in November [...] Illness This is a very pleasant 79-year-old gentleman?who underwent a CT scan of the abdomen and pelvis with contrast?December 01, 2021 for evaluation of abdominal pain, and was found to have acute diverticulitis of the sigmoid colon, without any evidence of perforation. ?He was incidentally found to have a heterogenous?9.8 cm mass in the right kidney, likely representing renal cell carcinoma.? There were also?indeterminate liver lesions.? He subsequently underwent an MRI of the abdomen with and without contrast on December 25, 2021, which showed?a 10 cm superior right renal mass, likely renal cell carcinoma, with no local invasion or metastatic?disease?evident.? There were flash filling?hemangiomas measuring up to 10 mm?in the lateral aspect of segment V.? There was also a 5 mm?liver cyst?in segment II.?CT of the chest performed?on December 25, 2021?showed?2 suspicious lung lesions measuring 1.4 cm and 1.2 cm within the right upper lobe and right lower lobe.? Malignancy cannot be ruled out.? In addition, he was found to have subtle tiny?foci of decreased?density?within the T1 vertebral body and manubrium,?possibly related to osteoporosis, although metastatic disease cannot be excluded. He subsequently underwent a PET/CT?which showed findings suspicious?for a right-sided?renal cell carcinoma with?metastases involving a portacaval lymph node?and?nodule within the right lower and right upper lobes.? CT-guided?lung biopsy?confirmed?metastatic malignancy,but there was not enough tissue for?immunostains Repeat?biopsy of lung nodule was positive for renal cell carcinoma The patient started?Keytruda/Lenvima in the first-line setting on January 22, 2022 CT CAP 04/10/22 showed a good response to treatment so far. ?Primary tumor in the kidney is smaller. ?The biopsy-proven lung metastases are also smaller. ?The mildly enlarged portacaval lymph node which may or may not be related to his renal cell carcinoma is stable in size The patient underwent cytoreductive nephrectomy on?June 16, 2022. 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 ?Surgical resection marginswere negative. Restarted Keytruda and?Lenvima after surgery. Treatment was interrupted for a month in July-August due to rise in Cr?initially thought to be medication induced, but LANETTE resolved quickly and Cr has been stable in baseline 1.7-1.8 range after restarting treatment PET/CT from 09/2022 showed enlargement of the 2 lung metastases compared to the previous scan from March 2022. ?The portacaval lymph node is still very small, and actually has lower FDG uptake (now SUV max of 2.8) compared to last PET scan from December 2021. ?This remains indeterminate.? Unclear if this is real progression on first-line therapy or progression due to interruption of treatment. ?Since the last CT scan from March 2022, Lenvima was held from late April until early June due to diarrhea and surgery. ?Keytruda was interrupted due to surgery. ?Treatment was interrupted again in late July due to rising creatinine, which has now stabilized Discussed 2nd line treatment options. ?Patient decided to stay on first-line therapy in the formof Keytruda and Lenvima for now, while addressing the oligometastatic lung metastases with either SBRT or surgery. ?He also agreed to increased Lenvima dosage to 14 mg daily -He met with radiation oncology and surgery. ?Decided to pursue SBRT. PET/CT from February 01, 2023 showed expected response in the lung metastases treated with SBRT. ?The periportal lymph node is no longer hypermetabolic. ?There is a new tiny hypermetabolic lesion in the right humeral head. ?The patient reports no recent trauma to this area, so I think it is likely a small metastasis. ?He currently has no pain, and range of motion is intact.? This was treated with SBRT 02/26/2023 PET/CT from 04/28/2023 showed no new disease. ?The 2 lung mets and possible humeral head met thathave been radiated have decreased further in FDG uptake, consistent with response to radiation PET/CT from 07/2023 negative PET/CT from October 2023 showed development of an isolated soft tissue nodule in the right internal mammary/intercostal region measuring 5 mm?suspicious for isolated metastasis.?We decided to continue with pembrolizumab/Lenvima?and refer the patient to radiation oncology to consider SBRT for the isolated metastasis The patient underwent?SBRT for isolated?chest wall metastasis?in mid November 2023 PET/CT 02/2024 shows no new disease PET scan 04/2024 showed a new isolated small chest wall metastasis measuring 0.7 cm. ?The patient is asymptomatic.? Referred to radiation therapy to consider SBRT for?isolated metastasis so we can continue the same systemic therapy PET scan 08/22/2023 showed a new FDG avid subcapsular lesion in the right hepatic lobe and a mildly FDG avid left upper lobe lung nodule, concerning for additional sites of metastatic disease. Interval History The patient returns to clinic today for a follow-up visit.? A few weeks ago, he?developed?significant diarrhea?on cabozantinib 60 mg daily. ?He held it for a few days, with?almost immediate resolution of diarrhea.? Since then, he has restarted cabozantinib 40 mg daily. ?He has been tolerating the reduced dosage better.? Still has occasional diarrhea?every few days.? He also reports?fatigue and decreased appetite, which are stable.? He has gained a few pounds since I last saw him. Review of Systems Remaining 14 point comprehensive review of systems within normal limits. NCCN Distress Thermometer and Problem List were collected and documented in the patient chart.? Remarkable symptoms and concerns were discussed with the patient.? Any additional follow-up is indicated in the plan. Past Medical and Surgical History Hypertension BPH Atrial fibrillation, rate controlled, not on anticoagulation?due to previous GI bleeding Type 2 diabetes, on glipizide Current Medications Medication List Name Date Ondansetron Oral 08/25/2024 Diltiazem Oral 01/01/2022 Tamsulosin Oral 12/31/2021 Acetaminophen Oral 12/31/2021 Furosemide Oral 08/24/2024 Cabometyx (Cabozantinib Oral (Cabometyx) ) 08/25/2024 Prochlorperazine Oral 01/21/2022 Omeprazole Oral Delayed Release Capsule 12/24/2022 Levothyroxine 12/02/2023 Lisinopril Oral 08/24/2024 Metoprolol Oral (Tartrate) 02/12/2022 Allergies Sulfamide and metformin Family History Unremarkable. ?Multiple first-degree and?second-degree family members with prostate cancer Social History Never smoker. ?No significant alcohol use.? Lives with in?[place].?He was in the [employer]?and served in [place].? They traveled to?[facility]?for the winter months. Vital Signs Blood pressure: [...] Physical Exam General: Awake, alert, and oriented. ?ECOG PS 0 Skin: ?No bruising or skin rash noted. Eyes: ? Sclera anicteric. ? Mouth: ?Moist mucous membranes without ulceration Lymphatics: No palpable lymphadenopathy Abdomen: ?Soft, nontender, nondistended. ? Extremities: ?Well perfused, no edema. Genetics/Molecular/Biomarkers * Renal cell [...] by Gio Lopez MD 10/16/2024 08:23 CDT * Med Onc Follow-up Note Patient Name: KUMAR MALONE Date Of : 1945 Today's Provider:?Gio Lopez MD Date of Service:?09/14/2024 Attending Physician:?Gio Lopez (Hematology/Oncology) Referring Provider: Michael Arguelles MD (Urology) HEMATOLOGY/ MEDICAL ONCOLOGY FOLLOW UP VISIT Reason for Visit Oligometastatic renal cell carcinoma Assessment 1.?Oligometastatic clear cell renal cell carcinoma -Has been on first-line systemic therapy in the form of Keytruda and Lenvima since early January 2022 -?Underwent cytoreductive nephrectomy on June 16, 2022. Surgical pathology showed grade 3 clear-cell renal cell carcinoma measuring 9.5 cm in the greatest dimension with invasion into the perinephric in the high lower adipose tissue. Surgical resection margins were negative. -The patient had a small isolated chest wall metastasis in October 2023 that was treated with SBRT while continuing first-line systemic therapy.? PET scan from?January 2024 was negative -PET scan from 04/2024 showed?a new?isolated?small chest wall metastasis measuring 0.7 cm.?The patient is asymptomatic.? He underwent another course of SBRT for the isolated metastasis so we can continue the same systemic therapy.? -PET scan from late July 2024 showed?disease progression.? The patient started second line?therapy in the form of cabozantinib 60 mg daily?on August 29, 2024. ?So far, treatment has been relatively well-tolerated. 2. Hypothyroidism - Started levothyroxine 05/02/22 - TSH from today pending 3.?Acute kidney injury -Baseline creatinine was in the 1.1-1.2 range.? Went up to 1.7-1.8 range after nephrectomy.? Then went up to 2.3. - saw nephrology.? Workup negative - Cr back to baseline in 1.6-1.7 range 4.? Weight loss -Likely due to poor appetite and?diarrhea related to?lenvatinib - On Remeron -Gained 6 pounds back after stopping lenvatinib and switching to cabozantinib 5. Hypertension - Managed by nephrology Plan 1. ?Continue cabozantinib at the standard dosage of 60 mg daily 2.?Return to see me in 1 month for follow-up 3.? Continue levothyroxine.? TSH from today pending 4.? Continue Remeron 15 mg nightly to improve appetite. 5.? F/u with nephrology for hypertension management Advanced Care Planning Not discussed at this [...] Illness This is a very pleasant 79-year-old gentleman?who underwent a CT scan of the abdomen and pelvis with contrast?December 01, 2021 for evaluation of abdominal pain, and was found to have acute diverticulitis of the sigmoid colon, without any evidence of perforation. ?He was incidentally found to have a heterogenous?9.8 cm mass in the right kidney, likely representing renal cell carcinoma.? There were also?indeterminate liver lesions.? He subsequently underwent an MRI of the abdomen with and without contrast on December 25, 2021, which showed?a 10 cm superior right renal mass, likely renal cell carcinoma, with no local invasion or metastatic?disease?evident.? There were flash filling?hemangiomas measuring up to 10 mm?in the lateral aspect of segment V.? There was also a 5 mm?liver cyst?in segment II.?CT of the chest performed?on December 25, 2021?showed?2 suspicious lung lesions measuring 1.4 cm and 1.2 cm within the right upper lobe and right lower lobe.? Malignancy cannot be ruled out.? In addition, he was found to have subtle tiny?foci of decreased?density?within the T1 vertebral body and manubrium,?possibly related to osteoporosis, although metastatic disease cannot be excluded. He subsequently underwent a PET/CT?which showed findings suspicious?for a right-sided?renal cell carcinoma with?metastases involving a portacaval lymph node?and?nodule within the right lower and right upper lobes.? CT-guided?lung biopsy?confirmed?metastatic malignancy,but there was not enough tissue for?immunostains Repeat?biopsy of lung nodule was positive for renal cell carcinoma The patient started?Keytruda/Lenvima in the first-line setting on January 22, 2022 CT CAP 04/10/22 showed a good response to treatment so far. ?Primary tumor in the kidney is smaller. ?The biopsy-proven lung metastases are also smaller. ?The mildly enlarged portacaval lymph node which may or may not be related to his renal cell carcinoma is stable in size The patient underwent cytoreductive nephrectomy on?June 16, 2022. 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 ?Surgical resection marginswere negative. Restarted Keytruda and?Lenvima after surgery. Treatment was interrupted for a month in July-August due to rise in Cr?initially thought to be medication induced, but LANETTE resolved quickly and Cr has been stable in baseline 1.7-1.8 range after restarting treatment PET/CT from 09/2022 showed enlargement of the 2 lung metastases compared to the previous scan from March 2022. ?The portacaval lymph node is still very small, and actually has lower FDG uptake (now SUV max of 2.8) compared to last PET scan from December 2021. ?This remains indeterminate.? Unclear if this is real progression on first-line therapy or progression due to interruption of treatment. ?Since the last CT scan from March 2022, Lenvima was held from late April until early June due to diarrhea and surgery. ?Keytruda was interrupted due to surgery. ?Treatment was interrupted again in late July due to rising creatinine, which has now stabilized Discussed 2nd line treatment options. ?Patient decided to stay on first-line therapy in the formof Keytruda and Lenvima for now, while addressing the oligometastatic lung metastases with either SBRT or surgery. ?He also agreed to increased Lenvima dosage to 14 mg daily -He met with radiation oncology and surgery. ?Decided to pursue SBRT. PET/CT from February 01, 2023 showed expected response in the lung metastases treated with SBRT. ?The periportal lymph node is no longer hypermetabolic. ?There is a new tiny hypermetabolic lesion in the right humeral head. ?The patient reports no recent trauma to this area, so I think it is likely a small metastasis. ?He currently has no pain, and range of motion is intact.? This was treated with SBRT 02/26/2023 PET/CT from 04/28/2023 showed no new disease. ?The 2 lung mets and possible humeral head met thathave been radiated have decreased further in FDG uptake, consistent with response to radiation PET/CT from 07/2023 negative PET/CT from October 2023 showed development of an isolated soft tissue nodule in the right internal mammary/intercostal region measuring 5 mm?suspicious for isolated metastasis.?We decided to continue with pembrolizumab/Lenvima?and refer the patient to radiation oncology to consider SBRT for the isolated metastasis The patient underwent?SBRT for isolated?chest wall metastasis?in mid November 2023 PET/CT 02/2024 shows no new disease PET scan 04/2024 showed a new isolated small chest wall metastasis measuring 0.7 cm. ?The patient is asymptomatic.? Referred to radiation therapy to consider SBRT for?isolated metastasis so we can continue the same systemic therapy PET scan 08/22/2023 showed a new FDG avid subcapsular lesion in the right hepatic lobe and a mildly FDG avid left upper lobe lung nodule, concerning for additional sites of metastatic disease. Interval History The patient returns to clinic today for a follow-up visit. ?He started?second line cabozantinib 60 mg daily 8?about 2 weeks ago.? Diarrhea?has not been a major issue for the patient, and as result he has gained 6 pounds, despite still having?a relatively poor appetite.? No significant nausea, vomiting, or mucositis.? He continues to report mild to moderate fatigue. Review of Systems Remaining 14 point comprehensive review of systems within normal limits. NCCN Distress Thermometer and Problem List were collected and documented in the patient chart.? Remarkable symptoms and concerns were discussed with the patient.? Any additional follow-up is indicated in the plan. Past Medical and Surgical History Hypertension BPH Atrial fibrillation, rate controlled, not on anticoagulation?due to previous GI bleeding Type 2 diabetes, on glipizide Current Medications Medication List Name Date Cabometyx (Cabozantinib Oral (Cabometyx) ) 08/25/2024 Diltiazem Oral 01/01/2022 Lisinopril Oral 08/24/2024 Prochlorperazine Oral 01/21/2022 Levothyroxine 12/02/2023 Acetaminophen Oral 12/31/2021 Omeprazole Oral Delayed Release Capsule 12/24/2022 Furosemide Oral 08/24/2024 Ondansetron Oral 08/25/2024 Miralax (Polyethylene Glycol Oral Powder ) 07/09/2022 Tamsulosin Oral 12/31/2021 Metoprolol Oral (Tartrate) 02/12/2022 Allergies Sulfamide and metformin Family History Unremarkable. ?Multiple first-degree and?second-degree family members with prostate cancer Social History Never smoker. ?No significant alcohol use.? Lives with in?[place].?He was in the [employer]?and served in [employer].? They traveled to?[facility]?for the winter. Vital Signs Blood pressure: 130/86, R arm, Regular, Pulse: 64, Temperature: 97.1 F, Respirations: 16, O2 sat: 95%, At Rest, Room Air, Pain Scale: 0, Height: 68 in, Weight: 160.6 lb, BSA: 1.86, BMI: 24.42 kg/m2 Covid-19 vaccine ([employer]) (06/01/2024); Covid-19 vaccine ([employer]) (01/01/2022); Covid-19 vaccine ([employer]) (05/21/2022); Covid-19 vaccine ([employer]) (01/01/2022); Covid-19 vaccine (Pfizer) (09/02/2023),Patient declined/rejected; Covid-19 vaccine (Pfizer) (01/01/2022); Flu vaccine - Adult (04/15/2022); Flu vaccine - Adult (09/02/2023), Patient declined/rejected; Flu vaccine - Adult (03/30/2024); Fluvaccine - Adult (04/08/2023) Performance Status ECOG or Karnofsky ECO Symptoms, but ambulatory. Restricted in physically strenuous activity, but ambulatory and able to carry out work of a light or sedentary nature (e.g., light housework, office work). (Date: 02/12/2022) Karnofsky: 80% Normal activity with effort; some signs or symptoms of disease. (Date: 04/21/2024) Physical Exam General: Awake, alert, and oriented. ?ECOG PS 0 Skin: ?No bruising or skin rash noted. Eyes: ? Sclera anicteric. ? Mouth: ?Moist mucous membranes without ulceration Lymphatics: No palpable lymphadenopathy Abdomen: ?Soft, nontender, nondistended. ? Extremities: ?Well perfused, no edema. Genetics/Molecular/Biomarkers * Renal cell carcinoma (disorder) ( Stage Date: Unknown, Stage IV RCC IMDC Risk Group: Favorable (no risk factors); Histopathologic Type: Clear cell renal carcinoma;) Additional Labs, Imaging, and Other Studies Lab Results CBC Lab Results 09/14/2024 08/24/2024 06/01/2024 05/11/2024 04/21/2003/30/2024 CBC WBC x 10^3/uL 6.8 5.5 5.2 8.4 4.6 5.6 RBC x 10^6/uL 4.08 (L) 4.08 (L) 4.22 4.05 (L) 4.00 (L) 4.00 (L) NRBC % /100 wbc 0.0 0.0 0.0 0.0 0.0 0.0 HGB g/dL 13.5 13.6 13.8 13.0 13.0 12.9 HCT % 40.3 41.1 41.1 39.6 39.2 40.1 MCV fL 98.8 100.7 97.4 97.8 98.0 100.3 MCH pg 33.1 33.3 32.7 32.1 32.5 32.3 MCHC g/dL 33.5 33.1 33.6 32.8 33.2 32.2 RDW % 13.30 13.00 13.20 12.80 12.80 12.80 PLT x 10^3/uL 148 158 141 156 134 152 MPV fL 10.5 10.7 9.9 10.1 10.6 10.3 Platelet, immature, fraction % 3.8 Tatyana % 62.9 69.2 68.3 72.8 63.1 60.7 LY % 30.0 20.6 20.9 19.2 24.3 25.1 MO % 5.4 (L) 7.9 7.3 5.7 (L) 8.7 8.6 EO % 1.3 1.7 2.7 1.7 3.3 5.2 IG % 0.1 0.4 0.4 0.4 0.4 0.2 Tatyana # (ANC) x 10^3/uL 4.3 3.8 3.6 6.2 2.9 3.4 BA % 0.3 0.2 0.4 0.2 0.2 0.2 MO # x 10^3/uL 0.4 0.4 0.4 0.5 0.4 0.5 EO # x 10^3/uL 0.1 0.1 0.1 0.1 0.2 0.3 BA # x 10^3/uL 0.0 0.0 0.0 0.0 0.0 0.0 IG # x 10^3/uL 0.01 0.02 0.02 0.03 0.02 0.01 LY # x 10^3/uL 2.0 1.1 1.1 1.6 1.1 1.4 Chemistries Lab Results 09/14/2024 08/24/2024 06/01/2024 05/11/2024 04/21/2003/30/2024 Chemistries Glucose mg/dL 175 (H) 123 (H) 109 (H) 157 (H) 115 (H) BUN mg/dL 29.0 (H) 21.0 (H) 23.0 (H) 21.0 (H) 19.0 Creatinine mg/dL 1.60 (H) 1.40 (H) 1.50 (H) 1.40 (H) 1.40 (H) Sodium mmol/L 137 139 138 139 137 Potassium mmol/L 3.8 4.2 4.4 4.6 4.4 Chloride mmol/L 104 108 (H) 108 (H) 107 108 (H) CO2 mmol/L 23 24 26 24 25 Calcium mg/dL 8.2 (L) 8.5 8.6 8.4 8.2 (L) Albumin g/dL 3.4 (L) 3.7 3.7 3.4 (L) 3.8 Total protein g/dL 5.9 (L) 6.1 (L) 6.5 6.3 6.8 Bilirubin, total mg/dL 0.6 0.4 0.4 0.4 0.4 Alkaline phosphatase U/L 110 89 91 76 79 AST/SGOT U/L 38 35 35 32 32 ALT/SGPT U/L 27 25 24 22 24 GFR estimate mL/min/1.73m2 43.2 (L) 50.8 (L) 46.8 (L) 50.9 (L) 50.9 (L) ? Surveys/Consents/Other Discussions Gio Lopez MD CC: Ulises Dowell MD FAX Beto Arguelles MD (Referring) MD Jess Valentin MD Electronically signed by Gio Lopez MD 09/15/2024 08:03 CDT * Med Onc Follow-up Note Patient Name: KUMAR MALONE Date Of : 1945 Today's Provider:?Gio Lopez MD Date of Service:?08/24/2024 Attending Physician:?Gio Lopez (Hematology/Oncology) Referring Provider: Michael Arguelles MD (Urology) HEMATOLOGY/ MEDICAL ONCOLOGY FOLLOW UP VISIT Reason for Visit Oligometastatic renal cell carcinoma Assessment 1.?Oligometastatic clear cell renal cell carcinoma -Has been on first-line systemic therapy in the form of Keytruda and Lenvima since early January 2022 -?Underwent cytoreductive nephrectomy on June 16, 2022. Surgical pathology showed grade 3 clear-cell renal cell carcinoma measuring 9.5 cm in the greatest dimension with invasion into the perinephric in the high lower adipose tissue. Surgical resection margins were negative. -The patient had a small isolated chest wall metastasis in October 2023 that was treated with SBRT while continuing first-line systemic therapy.? PET scan from?January 2024 was negative -PET scan from 04/2024 showed?a new?isolated?small chest wall metastasis measuring 0.7 cm.?The patient is asymptomatic.? He underwent another course of SBRT for the isolated metastasis so we can continue the same systemic therapy.? -?Unfortunately, the patient has developed?worsening appetite and diarrhea?recently, likely due to Lenvima -?His most recent PET scan also showed a new?FDG avid subcapsular?lesion?in the right hepatic lobe?and?a mildly FDG avid left upper lobe lung nodule, concerning for additional sitesof metastatic disease. 2. Hypothyroidism - Started levothyroxine 05/02/22 - TSH from today pending 3.?Acute kidney injury -Baseline creatinine was in the 1.1-1.2 range.? Went up to 1.7-1.8 range after nephrectomy.? Then went up to 2.3. - saw nephrology.? Workup negative - Cr back to baseline in 1.6-1.7 range 4.? Decreased appetite -Likely due to lenvatinib - On Remeron - Lost 15 lbs over the past 3 months 5. Hypertension - Managed by nephrology Plan 1. ?Since the patient has?developed?more side effects related to current treatment, and?he has?developed 2 additional sites of?metastases over the past 3 months,?we decided to?switch?systemic therapy?to?second line cabozantinib. ?Hoping to get this started within the next 1 to 2 weeks 2.?Return to see me in 3 weeks for a toxicity check 3.? OK for pembrolizumab today but he should stop Lenvima. 4.? Continue levothyroxine.? TSH from today pending 5.? Continue Remeron 15 mg nightly to improve appetite. 6.? F/u with nephrology for hypertension management Advanced Care Planning Not discussed at this [...] of Present Illness This is a very pleasant?78-year-old gentleman?who underwent a CT scan of the abdomen and pelvis with contrast?December 01, 2021 for evaluation of abdominal pain, and was found to have acute diverticulitis of the sigmoid colon, without any evidence of perforation. ?He was incidentally found to have a heterogenous?9.8 cm mass in the right kidney, likely representing renal cell carcinoma.? There were also?indeterminate liver lesions.? He subsequently underwent an MRI of the abdomen with and without contrast on December 25, 2021, which showed?a 10 cm superior right renal mass,likely renal cell carcinoma, with no local invasion or metastatic?disease?evident.? There were flash filling?hemangiomas measuring up to 10 mm?in the lateral aspect of segment V.? There was also a 5 mm?liver cyst?in segment II.?CT of the chest performed?on December 25, 2021?showed?2 suspicious lung lesions measuring 1.4 cm and 1.2 cm within the right upper lobe and right lower lobe.? Malignancy cannot be ruled out.? In addition, he was found to have subtle tiny?foci of decreased?density?within the T1 vertebral body and manubrium,?possiblyrelated to osteoporosis, although metastatic disease cannot be excluded. He subsequently underwent a PET/CT?which showed findings suspicious?for a right-sided?renal cell carcinoma with?metastases involving a portacaval lymph node?and?nodule within the right lower and right upper lobes.? CT-guided?lung biopsy?confirmed?metastatic malignancy,but there was not enough tissue for?immunostains Repeat?biopsy of lung nodule was positive for renal cell carcinoma The patient started?Keytruda/Lenvima in the first-line setting on January 22, 2022 CT CAP 04/10/22 showed a good response to treatment so far. ?Primary tumor in the kidney is smaller. ?The biopsy-proven lung metastases are also smaller. ?The mildly enlarged portacaval lymph node which may or may not be related to his renal cell carcinoma is stable in size The patient underwent cytoreductive nephrectomy on?June 16, 2022. 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 ?Surgical resection marginswere negative. Restarted Keytruda and?Lenvima after surgery. Treatment was interrupted for a month in July-August due to rise in Cr?initially thought to be medication induced, but LANETTE resolved quickly and Cr has been stable in baseline 1.7-1.8 range after restarting treatment PET/CT from 09/2022 showed enlargement of the 2 lung metastases compared to the previous scan from March 2022. ?The portacaval lymph node is still very small, and actually has lower FDG uptake (now SUV max of 2.8) compared to last PET scan from December 2021. ?This remains indeterminate.? Unclear if this is real progression on first-line therapy or progression due to interruption of treatment. ?Since the last CT scan from March 2022, Lenvima was held from late April until early June due to diarrhea and surgery. ?Keytruda was interrupted due to surgery. ?Treatment was interrupted again in late July due to rising creatinine, which has now stabilized Discussed 2nd line treatment options. ?Patient decided to stay on first-line therapy in the formof Keytruda and Lenvima for now, while addressing the oligometastatic lung metastases with either SBRT or surgery. ?He also agreed to increased Lenvima dosage to 14 mg daily -He met with radiation oncology and surgery. ?Decided to pursue SBRT. PET/CT from February 01, 2023 showed expected response in the lung metastases treated with SBRT. ?The periportal lymph node is no longer hypermetabolic. ?There is a new tiny hypermetabolic lesion in the right humeral head. ?The patient reports no recent trauma to this area, so I think it is likely a small metastasis. ?He currently has no pain, and range of motion is intact.? This was treated with SBRT 02/26/2023 PET/CT from 04/28/2023 showed no new disease. ?The 2 lung mets and possible humeral head met thathave been radiated have decreased further in FDG uptake, consistent with response to radiation PET/CT from 07/2023 negative PET/CT from October 2023 showed development of an isolated soft tissue nodule in the right internal mammary/intercostal region measuring 5 mm?suspicious for isolated metastasis.?We decided to continue with pembrolizumab/Lenvima?and refer the patient to radiation oncology to consider SBRT for the isolated metastasis The patient underwent?SBRT for isolated?chest wall metastasis?in mid November 2023 PET/CT 02/2024 shows no new disease PET scan 04/2024 showed a new isolated small chest wall metastasis measuring 0.7 cm. ?The patient is asymptomatic.? Referred to radiation therapy to consider SBRT for?isolated metastasis so we can continue the same systemic therapy Interval History The patient?just returned to [place] after being in [place] for the last 3 months.? Unfortunately,?he has developed?more diarrhea recently, and his appetite has also?decreased more.? As result, he has lost 15 pounds?since the last time he was here.? He denies any new bone pain.? No new focal neurologic symptoms. Review of Systems Remaining 14 point comprehensive review of systems within normal limits. NCCN Distress Thermometer and Problem List were collected and documented in the patient chart.? Remarkable symptoms and concerns were discussed with the patient.? Any additional follow-up is indicated in the plan. Past Medical and Surgical History Hypertension BPH Atrial fibrillation, rate controlled, not on anticoagulation?due to previous GI bleeding Type 2 diabetes, on glipizide Current Medications Medication List Name Date Metoprolol Oral (Tartrate) 02/12/2022 Tamsulosin Oral 12/31/2021 Lenvima (Lenvatinib) 05/10/2024 Furosemide Oral 08/24/2024 Lisinopril Oral 08/24/2024 Acetaminophen Oral 12/31/2021 Lenvatinib Oral 05/24/2023 Prochlorperazine Oral 01/21/2022 Omeprazole Oral Delayed Release Capsule 12/24/2022 Levothyroxine 12/02/2023 Miralax (Polyethylene Glycol Oral Powder ) 07/09/2022 Diltiazem Oral 01/01/2022 Allergies Sulfamide and metformin Family History Unremarkable. ?Multiple first-degree and?second-degree family members with prostate cancer Social History Never smoker. ?No significant alcohol use.? Lives with in?[place].?He was in the [employer]?and served in [employer] They traveled to?[facility]?for the winter months. Vital Signs Blood pressure: 116/72, R arm, Regular, Pulse: 66, Temperature: 97.4 F, Respirations: 16, O2 sat: 97%, At Rest, Room Air, Pain Scale: 0, Height: 68 in, Weight: 154.3 lb, BSA: 1.83, BMI: 23.46 kg/m2 Covid-19 vaccine ([employer]) (01/01/2022); Covid-19 vaccine ([employer]) (01/01/2022); Covid-19 vaccine ([employer]) (06/01/2024); Covid-19 vaccine (Pfizer) (05/21/2022); Covid-19 vaccine (Pfizer) (09/02/2023),Patient declined/rejected; Covid-19 vaccine (Pfizer) (01/01/2022); Flu vaccine - Adult (04/15/2022); Flu vaccine - Adult (09/02/2023), Patient declined/rejected; Flu vaccine - Adult (03/30/2024); Fluvaccine - Adult (04/08/2023) Performance Status ECOG or Karnofsky ECO Symptoms, but ambulatory. Restricted in physically strenuous activity, but ambulatory and able to carry out work of a light or sedentary nature (e.g., light housework, office work). (Date: 02/12/2022) Karnofsky: 80% Normal activity with effort; some signs or symptoms of disease. (Date: 04/21/2024) Physical Exam General: Awake, alert, and oriented. ?ECOG PS 0 Skin: ?No bruising or skin rash noted. Eyes: ? Sclera anicteric. ? Mouth: ?Moist mucous membranes without ulceration Lymphatics: No palpable lymphadenopathy Abdomen: ?Soft, nontender, nondistended. ? Extremities: ?Well perfused, no edema. Genetics/Molecular/Biomarkers * Renal cell carcinoma (disorder) ( Stage Date: Unknown, Stage IV RCC IMDC Risk Group: Favorable (no risk factors); Histopathologic Type: Clear cell renal carcinoma;) Additional Labs, Imaging, and Other Studies Lab Results CBC Lab Results 08/24/2024 06/01/2024 05/11/2024 04/21/2024 03/30/20 24 03/03/2024 CBC WBC x 10^3/uL 5.5 5.2 8.4 4.6 5.6 6.9 RBC x 10^6/uL 4.08 (L) 4.22 4.05 (L) 4.00 (L) 4.00 (L) 3.64 (L) NRBC % /100 wbc 0.0 0.0 0.0 0.0 0.0 0.0 HGB g/dL 13.6 13.8 13.0 13.0 12.9 12.1 (L) HCT % 41.1 41.1 39.6 39.2 40.1 36.6 (L) MCV fL 100.7 97.4 97.8 98.0 100.3 100.5 MCH pg 33.3 32.7 32.1 32.5 32.3 33.2 MCHC g/dL 33.1 33.6 32.8 33.2 32.2 33.1 RDW % 13.00 13.20 12.80 12.80 12.80 13.20 PLT x 10^3/uL 158 141 156 134 152 140 MPV fL 10.7 9.9 10.1 10.6 10.3 10.6 Platelet, immature, fraction % 3.8 Tatyana % 69.2 68.3 72.8 63.1 60.7 65.1 LY % 20.6 20.9 19.2 24.3 25.1 20.6 MO % 7.9 7.3 5.7 (L) 8.7 8.6 9.6 EO % 1.7 2.7 1.7 3.3 5.2 4.3 IG % 0.4 0.4 0.4 0.4 0.2 0.3 Tatyana # (ANC) x 10^3/uL 3.8 3.6 6.2 2.9 3.4 4.5 BA % 0.2 0.4 0.2 0.2 0.2 0.1 MO # x 10^3/uL 0.4 0.4 0.5 0.4 0.5 0.7 EO # x 10^3/uL 0.1 0.1 0.1 0.2 0.3 0.3 BA # x 10^3/uL 0.0 0.0 0.0 0.0 0.0 0.0 IG # x 10^3/uL 0.02 0.02 0.03 0.02 0.01 0.02 LY # x 10^3/uL 1.1 1.1 1.6 1.1 1.4 1.4 Chemistries Lab Results 08/24/2024 06/01/2024 05/11/2024 04/21/2024 03/30/2003/03/2024 Chemistries Glucose mg/dL 123 (H) 109 (H) 157 (H) 115 (H) 99 BUN mg/dL 21.0 (H) 23.0 (H) 21.0 (H) 19.0 26.0 (H) Creatinine mg/dL 1.40 (H) 1.50 (H) 1.40 (H) 1.40 (H) 1.60 (H) Sodium mmol/L 139 138 139 137 139 Potassium mmol/L 4.2 4.4 4.6 4.4 4.2 Chloride mmol/L 108 (H) 108 (H) 107 108 (H) 110 (H) CO2 mmol/L 24 26 24 25 20 (L) Calcium mg/dL 8.5 8.6 8.4 8.2 (L) 8.5 Albumin g/dL 3.7 3.7 3.4 (L) 3.8 3.7 Total protein g/dL 6.1 (L) 6.5 6.3 6.8 6.5 Bilirubin, total mg/dL 0.4 0.4 0.4 0.4 0.5 Alkaline phosphatase U/L 89 91 76 79 69 AST/SGOT U/L 35 35 32 32 28 ALT/SGPT U/L 25 24 22 24 15 GFR estimate mL/min/1.73m2 50.8 (L) 46.8 (L) 50.9 (L) 50.9 (L) 43.4 (L) ? Surveys/Consents/Other Discussions Gio Lopez MD CC: Ulises Dowell MD FAX Beto Arguelles MD (Referring) MD Jess Valentin MD Electronically signed by Gio Lopez MD 08/25/2024 08:17 CDT * Med Onc Follow-up Note Patient Name: KUMAR MALONE Date Of : 1945 Today's Provider:?Gio Lopez MD Date of Service:?06/01/2024 Attending Physician:?Gio Lopez (Hematology/Oncology) Referring Provider: Michael Arguelles MD (Urology) HEMATOLOGY/ MEDICAL ONCOLOGY FOLLOW UP VISIT Reason for Visit Oligometastatic renal cell carcinoma Assessment 1.?Oligometastatic clear cell renal cell carcinoma -Has been on first-line systemic therapy in the form of Keytruda and Lenvima since early January 2022 -?Underwent cytoreductive nephrectomy on June 16, 2022. Surgical pathology showed grade 3 clear-cell renal cell carcinoma measuring 9.5 cm in the greatest dimension with invasion into the perinephric in the high lower adipose tissue. Surgical resection margins were negative. -The patient had a small isolated chest wall metastasis in October 2023 that was treated with SBRT while continuing first-line systemic therapy.? PET scan from?January 2024 was negative -The most recent PET scan showed?a new?isolated?small chest wall metastasis measuring 0.7 cm. ?The patient is asymptomatic. -Referred to radiation therapy to consider SBRT for isolated metastasis so we can continue the samesystemic therapy.? Undergoing SBRT for isolated metastasis, last session next Wednesday 2. Hypothyroidism - Started levothyroxine 05/02/22 - TSH from today pending 3.?Acute kidney injury -Baseline creatinine was in the 1.1-1.2 range.? Went up to 1.7-1.8 range after nephrectomy.? Then went up to 2.3. - saw nephrology.? 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 Decreased appetite -Likely due to lenvatinib - On Remeron 7. Hypertension - Managed by nephrology - Remains an issue, with SBP in the 170s Plan 1. ?With only a new isolated small chest wall metastasis over the past 6 months,?I think it is in the patient's best interest to continue the same?first-line systemic therapy?while pursuing another?course of SBRT?targeting the isolated chest wall metastasis, instead of switching sy stemic therapy 2.? Continue radiation therapy.? Last session?next Wednesday 2.? Continue pembrolizumab (Keytruda) 200 mg every 3 weeks 4. ?Continue Lenvima 10 mg daily 5.? Patient plans on being in [place] from May to july.? He will return to [place] in late July. 6.?I will plan to see him on?August 3?prior to his?ongoing Keytruda treatment.? PET/CT a few days prior to return. 7.? Continue levothyroxine.? TSH from today pending 8.? Continue Remeron 15 mg nightly to improve appetite. 9.? F/u with nephrology for hypertension management Advanced Care Planning Not discussed at this visit. Pain Scale on Today's Visit 0 Pain Plan on Today's Visit No pain plan indicated for today's visit Smoking Status Smoking Tobacco : Never smoker; Smokeless Tobacco : Never used smokeless tobacco; Vaping : Never vaped Depression Screening Tool Status Was not screened Reason: Patient Refused; Screening Date: 03/30/2024 History of Present Illness This is a very pleasant?78-year-old gentleman?who underwent a CT scan of the abdomen and pelvis with contrast?December 01, 2021 for evaluation of abdominal pain, and was found to have acute diverticulitis of the sigmoid colon, without any evidence of perforation. ?He was incidentally found to have a heterogenous?9.8 cm mass in the right kidney, likely representing renal cell carcinoma.? There were also?indeterminate liver lesions.? He subsequently underwent an MRI of the abdomen with and without contrast on December 25, 2021, which showed?a 10 cm superior right renal mass,likely renal cell carcinoma, with no local invasion or metastatic?disease?evident.? There were flash filling?hemangiomas measuring up to 10 mm?in the lateral aspect of segment V.? There was also a 5 mm?liver cyst?in segment II.?CT of the chest performed?on December 25, 2021?showed?2 suspicious lung lesions measuring 1.4 cm and 1.2 cm within the right upper lobe and right lower lobe.? Malignancy cannot be ruled out.? In addition, he was found to have subtle tiny?foci of decreased?density?within the T1 vertebral body and manubrium,?possiblyrelated to osteoporosis, although metastatic disease cannot be excluded. He subsequently underwent a PET/CT?which showed findings suspicious?for a right-sided?renal cell carcinoma with?metastases involving a portacaval lymph node?and?nodule within the right lower and right upper lobes.? CT-guided?lung biopsy?confirmed?metastatic malignancy,but there was not enough tissue for?immunostains Repeat?biopsy of lung nodule was positive for renal cell carcinoma The patient started?Keytruda/Lenvima in the first-line setting on January 22, 2022 CT CAP 04/10/22 showed a good response to treatment so far. ?Primary tumor in the kidney is smaller. ?The biopsy-proven lung metastases are also smaller. ?The mildly enlarged portacaval lymph node which may or may not be related to his renal cell carcinoma is stable in size The patient underwent cytoreductive nephrectomy on?June 16, 2022. 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 ?Surgical resection marginswere negative. Restarted Keytruda and?Lenvima after surgery. Treatment was interrupted for a month in July-August due to rise in Cr?initially thought to be medication induced, but LANETTE resolved quickly and Cr has been stable in baseline 1.7-1.8 range after restarting treatment PET/CT from 09/2022 showed enlargement of the 2 lung metastases compared to the previous scan from March 2022. ?The portacaval lymph node is still very small, and actually has lower FDG uptake (now SUV max of 2.8) compared to last PET scan from December 2021. ?This remains indeterminate.? Unclear if this is real progression on first-line therapy or progression due to interruption of treatment. ?Since the last CT scan from March 2022, Lenvima was held from late April until early June due to diarrhea and surgery. ?Keytruda was interrupted due to surgery. ?Treatment was interrupted again in late July due to rising creatinine, which has now stabilized Discussed 2nd line treatment options. ?Patient decided to stay on first-line therapy in the formof Keytruda and Lenvima for now, while addressing the oligometastatic lung metastases with either SBRT or surgery. ?He also agreed to increased Lenvima dosage to 14 mg daily -He met with radiation oncology and surgery. ?Decided to pursue SBRT. PET/CT from February 01, 2023 showed expected response in the lung metastases treated with SBRT. ?The periportal lymph node is no longer hypermetabolic. ?There is a new tiny hypermetabolic lesion in the right humeral head. ?The patient reports no recent trauma to this area, so I think it is likely a small metastasis. ?He currently has no pain, and range of motion is intact.? This was treated with SBRT 02/26/2023 PET/CT from 04/28/2023 showed no new disease. ?The 2 lung mets and possible humeral head met thathave been radiated have decreased further in FDG uptake, consistent with response to radiation PET/CT from 07/2023 negative PET/CT from October 2023 showed development of an isolated soft tissue nodule in the right internal mammary/intercostal region measuring 5 mm?suspicious for isolated metastasis.?We decided to continue with pembrolizumab/Lenvima?and refer the patient to radiation oncology to consider SBRT for the isolated metastasis The patient underwent?SBRT for isolated?chest wall metastasis?in mid November 2023 PET/CT 02/2024 shows no new disease PET scan 04/2024 showed a new isolated small chest wall metastasis measuring 0.7 cm. ?The patient is asymptomatic.? Referred to radiation therapy to consider SBRT for?isolated metastasis so we can continue the same systemic therapy Interval History The patient started radiation?yesterday, and the last?radiation session will be next Wednesday.? So far, radiation has been well-tolerated. ?He denies any new side effects related to?Keytruda and Lenvima. Review of Systems Remaining 14 point comprehensive review of systems within normal limits. NCCN Distress Thermometer and Problem List were collected and documented in the patient chart.? Remarkable symptoms and concerns were discussed with the patient.? Any additional follow-up is indicated in the plan. Past Medical and Surgical History Hypertension BPH Atrial fibrillation, rate controlled, not on anticoagulation?due to previous GI bleeding Type 2 diabetes, on glipizide Current Medications Medication List Name Date Levothyroxine 12/02/2023 Prochlorperazine Oral 01/21/2022 Acetaminophen Oral 12/31/2021 Lenvatinib Oral 05/24/2023 Omeprazole Oral Delayed Release Capsule 12/24/2022 Valsartan Oral 06/01/2024 Diltiazem Oral 01/01/2022 Metoprolol Oral (Tartrate) 02/12/2022 Miralax (Polyethylene Glycol Oral Powder ) 07/09/2022 Lenvima (Lenvatinib) 05/10/2024 Hydralazine Oral 04/25/2024 Tamsulosin Oral 12/31/2021 Allergies Sulfamide and metformin Family History Unremarkable. ?Multiple first-degree and?second-degree family members with prostate cancer Social History Never smoker. ?No significant alcohol use.? Lives with in?[place].?He was in the [employer]?and served in [place].? They traveled to?[facility]?for the winter months. Vital Signs Blood pressure: 178/80, Pulse: 64, Temperature: 97.5 F, Respirations: 16, O2 sat: 97%, Pain Scale: 0, Height: 68 in, Weight: 169.1 lb, BSA: 1.9, BMI: 25.71 kg/m2 Covid-19 vaccine (Pfizer) (01/01/2022); Covid-19 vaccine (Pfizer) (09/02/2023), Patient declined/rejected; Covid-19 vaccine (Pfizer) (05/21/2022); Covid-19 vaccine (Pfizer) (06/01/2024); Covid-19 vaccine (Pfizer) (01/01/2022); Covid-19 vaccine (Pfizer) (01/01/2022); Flu vaccine - [...] Physical Exam General: Awake, alert, and oriented. ?ECOG PS 0 Skin: ?No bruising or skin rash noted. Eyes: ? Sclera anicteric. ? Mouth: ?Moist mucous membranes without ulceration Lymphatics: No palpable lymphadenopathy Abdomen: ?Soft, nontender, nondistended. ? Extremities: ?Well perfused, no edema. Genetics/Molecular/Biomarkers * Renal cell carcinoma (disorder) ( Stage Date: Unknown, Stage IV RCC IMDC Risk Group: Favorable (no risk factors); Histopathologic Type: Clear cell renal carcinoma;) Additional Labs, Imaging, and Other Studies Lab Results CBC Lab Results 06/01/2024 05/11/2024 04/21/2024 03/30/2024 03/03/2002/24/2024 CBC WBC x 10^3/uL 5.2 8.4 4.6 5.6 6.9 RBC x 10^6/uL 4.22 4.05 (L) 4.00 (L) 4.00 (L) 3.64 (L) NRBC % /100 wbc 0.0 0.0 0.0 0.0 0.0 HGB g/dL 13.8 13.0 13.0 12.9 12.1 (L) HCT % 41.1 39.6 39.2 40.1 36.6 (L) MCV fL 97.4 97.8 98.0 100.3 100.5 MCH pg 32.7 32.1 32.5 32.3 33.2 MCHC g/dL 33.6 32.8 33.2 32.2 33.1 RDW % 13.20 12.80 12.80 12.80 13.20 PLT x 10^3/uL 141 156 134 152 140 MPV fL 9.9 10.1 10.6 10.3 10.6 Platelet, immature, fraction % 3.8 Tatyana % 68.3 72.8 63.1 60.7 65.1 LY % 20.9 19.2 24.3 25.1 20.6 MO % 7.3 5.7 (L) 8.7 8.6 9.6 EO % 2.7 1.7 3.3 5.2 4.3 IG % 0.4 0.4 0.4 0.2 0.3 Tatyana # (ANC) x 10^3/uL 3.6 6.2 2.9 3.4 4.5 BA % 0.4 0.2 0.2 0.2 0.1 MO # x 10^3/uL 0.4 0.5 0.4 0.5 0.7 EO # x 10^3/uL 0.1 0.1 0.2 0.3 0.3 BA # x 10^3/uL 0.0 0.0 0.0 0.0 0.0 IG # x 10^3/uL 0.02 0.03 0.02 0.01 0.02 LY # x 10^3/uL 1.1 1.6 1.1 1.4 1.4 Chemistries Lab Results 06/01/2024 05/11/2024 04/21/2024 03/30/2024 03/03/2002/24/2024 Chemistries Glucose mg/dL 109 (H) 157 (H) 115 (H) 99 134 (H) BUN mg/dL 23.0 (H) 21.0 (H) 19.0 26.0 (H) 30.0 (H) Creatinine mg/dL 1.50 (H) 1.40 (H) 1.40 (H) 1.60 (H) 1.50 (H) Sodium mmol/L 138 139 137 139 139 Potassium mmol/L 4.4 4.6 4.4 4.2 4.8 Chloride mmol/L 108 (H) 107 108 (H) 110 (H) 108 (H) CO2 mmol/L 26 24 25 20 (L) 24 Calcium mg/dL 8.6 8.4 8.2 (L) 8.5 9.0 Albumin g/dL 3.7 3.4 (L) 3.8 3.7 3.8 Total protein g/dL 6.5 6.3 6.8 6.5 6.6 Bilirubin, total mg/dL 0.4 0.4 0.4 0.5 0.7 Alkaline phosphatase U/L 91 76 79 69 77 AST/SGOT U/L 35 32 32 28 29 ALT/SGPT U/L 24 22 24 15 22 GFR estimate mL/min/1.73m2 46.8 (L) 50.9 (L) 50.9 (L) 43.4 (L) 46.9 (L) ? 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 Surgical pathology showed grade 3 clear-cell renal cell carcinoma measuring 9.5 cm in the greatest dimension with invasion into the perinephric in the high lower adipose tissue. Surgical resection margins were negative. -The patient had a small isolated chest wall metastasis in October 2023 that was treated with SBRT while continuing first-line systemic therapy.? PET scan from?January 2024 was negative -The most recent PET scan showed?a new?isolated?small chest wall metastasis measuring 0.7 cm. ?The patient is asymptomatic. 2. Hypothyroidism - Started levothyroxine 05/02/22 - TSH from today pending 3.?Acute kidney injury -Baseline creatinine was in the 1.1-1.2 range.? Went up to 1.7-1.8 range after nephrectomy.? Then went up to 2.3. - saw nephrology.? 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 Decreased appetite -Likely due to lenvatinib - On Remeron 7. Hypertension - on diltiazem, metoprolol, and valsartan Plan 1. ?With only a new isolated small chest wall metastasis over the past 6 months,?I think it is in the patient's best interest to continue the same?first-line systemic therapy?while pursuing another?course of SBRT?targeting the isolated chest wall metastasis, instead of switching sy stemic therapy 2.? Referring back to Rad Onc in [place] 2.? Continue pembrolizumab (Keytruda) 200 mg every 3 weeks 4. ?Continue Lenvima 10 mg daily 5.? Patient plans on being in [place] from May to july.? Plan to give?the next dose ofKeytruda here, and the one in late May in [place] 6.? Continue levothyroxine.? TSH from today pending 7.? Continue Remeron 15 mg nightly to improve appetite. 8.? F/u with nephrology for hypertension management Advanced Care Planning Not discussed at this visit. Pain Scale on Today's Visit 0 Pain Plan on Today's Visit No pain plan indicated for today's visit Smoking Status Smoking Tobacco : Never smoker; Smokeless Tobacco : Never used smokeless tobacco; Vaping : Never vaped Depression Screening Tool Status Was not screened Reason: Patient Refused; Screening Date: 03/30/2024 History of Present Illness This is a very pleasant?78-year-old gentleman?who underwent a CT scan of the abdomen and pelvis with contrast?December 01, 2021 for evaluation of abdominal pain, and was found to have acute diverticulitis of the sigmoid colon, without any evidence of perforation. ?He was incidentally found to have a heterogenous?9.8 cm mass in the right kidney, likely representing renal cell carcinoma.? There were also?indeterminate liver lesions.? He subsequently underwent an MRI of the abdomen with and without contrast on December 25, 2021, which showed?a 10 cm superior right renal mass,likely renal cell carcinoma, with no local invasion or metastatic?disease?evident.? There were flash filling?hemangiomas measuring up to 10 mm?in the lateral aspect of segment V.? There was also a 5 mm?liver cyst?in segment II.?CT of the chest performed?on December 25, 2021?showed?2 suspicious lung lesions measuring 1.4 cm and 1.2 cm within the right upper lobe and right lower lobe.? Malignancy cannot be ruled out.? In addition, he was found to have subtle tiny?foci of decreased?density?within the T1 vertebral body and manubrium,?possiblyrelated to osteoporosis, although metastatic disease cannot be excluded. He subsequently underwent a PET/CT?which showed findings suspicious?for a right-sided?renal cell carcinoma with?metastases involving a portacaval lymph node?and?nodule within the right lower and right upper lobes.? CT-guided?lung biopsy?confirmed?metastatic malignancy,but there was not enough tissue for?immunostains Repeat?biopsy of lung nodule was positive for renal cell carcinoma The patient started?Keytruda/Lenvima in the first-line setting on January 22, 2022 CT CAP 04/10/22 showed a good response to treatment so far. ?Primary tumor in the kidney is smaller. ?The biopsy-proven lung metastases are also smaller. ?The mildly enlarged portacaval lymph node which may or may not be related to his renal cell carcinoma is stable in size The patient underwent cytoreductive nephrectomy on?June 16, 2022. 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 ?Surgical resection marginswere negative. Restarted Keytruda and?Lenvima after surgery. Treatment was interrupted for a month in July-August due to rise in Cr?initially thought to be medication induced, but LANETTE resolved quickly and Cr has been stable in baseline 1.7-1.8 range after restarting treatment PET/CT from 09/2022 showed enlargement of the 2 lung metastases compared to the previous scan from March 2022. ?The portacaval lymph node is still very small, and actually has lower FDG uptake (now SUV max of 2.8) compared to last PET scan from December 2021. ?This remains indeterminate.? Unclear if this is real progression on first-line therapy or progression due to interruption of treatment. ?Since the last CT scan from March 2022, Lenvima was held from late April until early June due to diarrhea and surgery. ?Keytruda was interrupted due to surgery. ?Treatment was interrupted again in late July due to rising creatinine, which has now stabilized Discussed 2nd line treatment options. ?Patient decided to stay on first-line therapy in the formof Keytruda and Lenvima for now, while addressing the oligometastatic lung metastases with either SBRT or surgery. ?He also agreed to increased Lenvima dosage to 14 mg daily -He met with radiation oncology and surgery. ?Decided to pursue SBRT. PET/CT from February 01, 2023 showed expected response in the lung metastases treated with SBRT. ?The periportal lymph node is no longer hypermetabolic. ?There is a new tiny hypermetabolic lesion in the right humeral head. ?The patient reports no recent trauma to this area, so I think it is likely a small metastasis. ?He currently has no pain, and range of motion is intact.? This was treated with SBRT 02/26/2023 PET/CT from 04/28/2023 showed no new disease. ?The 2 lung mets and possible humeral head met thathave been radiated have decreased further in FDG uptake, consistent with response to radiation PET/CT from 07/2023 negative PET/CT from October 2023 showed development of an isolated soft tissue nodule in the right internal mammary/intercostal region measuring 5 mm?suspicious for isolated metastasis.?We decided to continue with pembrolizumab/Lenvima?and refer the patient to radiation oncology to consider SBRT for the isolated metastasis The patient underwent?SBRT for isolated?chest wall metastasis?in mid November 2023 PET/CT 02/2024 shows no new disease Interval History The patient returns to clinic today for a follow-up visit. ?He denies any new symptoms since I last saw him. Review of Systems Remaining 14 point comprehensive review of systems within normal limits. NCCN Distress Thermometer and Problem List were collected and documented in the patient chart.? Remarkable symptoms and concerns were discussed with the patient.? Any additional follow-up is indicated in the plan. Past Medical and Surgical History Hypertension BPH Atrial fibrillation, rate controlled, not on anticoagulation?due to previous GI bleeding Type 2 diabetes, on glipizide Current Medications Medication List Name Date Lenvima (Lenvatinib) 05/10/2024 Acetaminophen Oral 12/31/2021 Diltiazem Oral 01/01/2022 Valsartan Oral 05/11/2024 Metoprolol Oral (Tartrate) 02/12/2022 Tamsulosin Oral 12/31/2021 Hydralazine Oral 04/25/2024 Omeprazole Oral Delayed Release Capsule 12/24/2022 Lenvatinib Oral 05/24/2023 Prochlorperazine Oral 01/21/2022 Levothyroxine 12/02/2023 Miralax (Polyethylene Glycol Oral Powder ) 07/09/2022 Allergies Sulfamide and metformin Family History Unremarkable. ?Multiple first-degree and?second-degree family members with prostate cancer Social History Never smoker. ?No significant alcohol use.? Lives with in?[place].?He was in the [employer]?and served in [place].? They traveled to?[facility]?for the winter months. Vital Signs Blood pressure: 142/92, Pulse: 59, Temperature: 97.5 F, Respirations: 16, O2 sat: 98%, Pain Scale: 0, Height: 68 in, Weight: 167.7 lb, BSA: 1.9, BMI: 25.5 kg/m2 Covid-19 vaccine (Pfizer) (05/21/2022); Covid-19 vaccine (Pfizer) (01/01/2022); Covid-19 vaccine (Pfizer) (01/01/2022); Covid-19 vaccine (Pfizer) (01/01/2022); Covid-19 vaccine (Pfizer) (09/02/2023),Patient declined/rejected; Flu vaccine - Adult (03/30/2024); Flu vaccine - Adult (09/02/2023), Patient declined/rejected; Flu vaccine - Adult (04/15/2022); Flu vaccine - Adult (04/08/2023) Performance Status ECOG or Karnofsky ECO Symptoms, but ambulatory. Restricted in physically strenuous activity, but ambulatory and able to carry out work of a light or sedentary nature (e.g., light housework, office work). (Date: 02/12/2022) Karnofsky: 80% Normal activity with effort; some signs or symptoms of disease. (Date: 04/21/2024) Physical Exam General: Awake, alert, and oriented. ?ECOG PS 0 Skin: ?No bruising or skin rash noted. Eyes: ? Sclera anicteric. ? Mouth: ?Moist mucous membranes without ulceration Lymphatics: No palpable lymphadenopathy Abdomen: ?Soft, nontender, nondistended. ? Extremities: ?Well perfused, no edema. Genetics/Molecular/Biomarkers * Renal cell carcinoma (disorder) ( Stage Date: Unknown, Stage IV RCC IMDC Risk Group: Favorable (no risk factors); Histopathologic Type: Clear cell renal carcinoma;) Additional Labs, Imaging, and Other Studies Lab Results CBC Lab Results 05/11/2024 04/21/2024 03/30/2024 03/03/2024 02/24/2002/17/2024 CBC WBC x 10^3/uL 8.4 4.6 5.6 6.9 6.1 RBC x 10^6/uL 4.05 (L) 4.00 (L) 4.00 (L) 3.64 (L) 3.85 (L) NRBC % /100 wbc 0.0 0.0 0.0 0.0 0.0 HGB g/dL 13.0 13.0 12.9 12.1 (L) 12.8 HCT % 39.6 39.2 40.1 36.6 (L) 38.3 (L) MCV fL 97.8 98.0 100.3 100.5 99.5 MCH pg 32.1 32.5 32.3 33.2 33.2 MCHC g/dL 32.8 33.2 32.2 33.1 33.4 RDW % 12.80 12.80 12.80 13.20 12.90 PLT x 10^3/uL 156 134 152 140 147 MPV fL 10.1 10.6 10.3 10.6 10.6 Platelet, immature, fraction % 3.8 Tatyana % 72.8 63.1 60.7 65.1 65.9 LY % 19.2 24.3 25.1 20.6 23.1 MO % 5.7 (L) 8.7 8.6 9.6 8.7 EO % 1.7 3.3 5.2 4.3 1.7 IG % 0.4 0.4 0.2 0.3 0.3 Tatyana # (ANC) x 10^3/uL 6.2 2.9 3.4 4.5 4.0 BA % 0.2 0.2 0.2 0.1 0.3 MO # x 10^3/uL 0.5 0.4 0.5 0.7 0.5 EO # x 10^3/uL 0.1 0.2 0.3 0.3 0.1 BA # x 10^3/uL 0.0 0.0 0.0 0.0 0.0 IG # x 10^3/uL 0.03 0.02 0.01 0.02 0.02 LY # x 10^3/uL 1.6 1.1 1.4 1.4 1.4 Chemistries Lab Results 05/11/2024 04/21/2024 03/30/2024 03/03/2024 02/24/20 24 02/17/2024 Chemistries Glucose mg/dL 157 (H) 115 (H) 99 134 (H) 116 (H) BUN mg/dL 21.0 (H) 19.0 26.0 (H) 30.0 (H) 34.0 (H) Creatinine mg/dL 1.40 (H) 1.40 (H) 1.60 (H) 1.50 (H) 1.80 (H) Sodium mmol/L 139 137 139 139 138 Potassium mmol/L 4.6 4.4 4.2 4.8 5.4 (H) Chloride mmol/L 107 108 (H) 110 (H) 108 (H) 109 (H) CO2 mmol/L 24 25 20 (L) 24 21 (L) Calcium mg/dL 8.4 8.2 (L) 8.5 9.0 8.7 Albumin g/dL 3.4 (L) 3.8 3.7 3.8 3.9 Total protein g/dL 6.3 6.8 6.5 6.6 6.8 Bilirubin, total mg/dL 0.4 0.4 0.5 0.7 0.4 Alkaline phosphatase U/L 76 79 69 77 61 AST/SGOT U/L 32 32 28 29 29 ALT/SGPT U/L 22 24 15 22 20 GFR estimate mL/min/1.73m2 50.9 (L) 50.9 (L) 43.4 (L) 46.9 (L) 37.7 (L) ? Surveys/Consents/Other Discussions Gio Lopez MD CC: Ulises Dowell MD FAX Beto Arguelles MD (Referring) MD Jess Valentin MD Electronically signed by Gio Lopez MD 05/11/2024 13:01 HYDRAMATIC MECHANIC * Med Onc Follow-up Note Patient Name: KUMAR MALONE Date Of : 1945 Today's Provider:?Mary Jane Ko RN, ELECTRICAL CONTROLS TECHNICIAN, MA, OCN Date of Service:?04/21/2024 Attending Physician:?Gio Lopez (Hematology/Oncology) Referring Provider: Michael Arguelles MD (Urology) HEMATOLOGY/ MEDICAL ONCOLOGY FOLLOW UP VISIT Reason for Visit Oligometastatic renal cell carcinoma Assessment 1.?Oligometastatic clear cell renal cell carcinoma -Has been on first-line systemic therapy in the form of Keytruda and Lenvima since early January 2022 -CT CAP 04/10/22 showed a good response to treatment.? Primary tumor in the?kidney was smaller.? The biopsy-proven lung metastases were also?smaller.? The?mildly enlarged portacavallymph node which may or may not be related to?his renal cell carcinoma was stable in size -?Underwent cytoreductive nephrectomy on June 16, 2022. Surgical pathology showed grade 3 clear-cell renal cell carcinoma measuring 9.5 cm in the greatest dimension with invasion into the perinephric in the high lower adipose tissue. Surgical resection margins were negative. -Restarted Keytruda and Lenvima in mid to late?June after surgery. ?Tolerating relativelywell - Treatment paused for a month due to worsening Cr.? Workup by nephrology negative - Restarted Keytruda and Lenvima with stable Cr so far. - PET/CT from 09/2022?showed?enlargement of?the 2 lung metastases?compared to the previous scan?from March 2022.?The portacaval lymph node?is still very small, and?actually has lower?FDG uptake (now SUV max of 2.8) compared to last PET scan from December 2021.? This remains indeterminate. -Unclear if this is?real progression?on first-line therapy?or progression due to?interruption of treatment. ?Since the last?CT scan from March 2022,?Lenvima was held from?late April?until?early June?due to diarrhea and surgery.? Keytruda was?interrupted due to surgery.? Treatment was interrupted again?in late July?due to rising creatinine, which has now stabilized - Discussed 2nd line treatment options. ?Patient decided to stay on first- line therapy in the form of Keytruda and Lenvima, while addressing the oligometastatic lung metastases with either SBRT orsurgery. ?He also agreed to increase Lenvima dosage to 14 mg daily -He met with radiation oncology and surgery. ?Decided to pursue SBRT - PET/CT from?February 01, 2023 showed?expected response?in the?lung metastases treated with?SBRT. ?The periportal lymph node is no longer hypermetabolic.? There is a new?tiny hypermetabolic?lesion in the right humeral head s/p SBRT. - PET/CT from 04/28/2023 showed no new disease.? The 2 lung mets and possible humeral?head met?that have been radiated?have decreased further?in FDG uptake, consistent with response to radiation - PET/CT from 07/2023 negative -?PET/CT from October 2023 showed development of an isolated soft tissue nodule in the right internal mammary/intercostal region measuring 5 mm suspicious for isolated metastasis. - Patient did not wish to switch systemic therapy.? He underwent radiation therapy targeting theisolated chest wall metastasis?in mid November 2023 - PET/CT 02/2024 shows no new disease 2. Hypothyroidism - Started levothyroxine 05/02/22 - TSH from today pending 3.?Acute kidney injury -Baseline creatinine was in the 1.1-1.2 range.? Went up to 1.7-1.8 range after nephrectomy.? Then went up to 2.3. - saw nephrology.? 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 Decreased appetite -Likely due to lenvatinib - On Remeron 7.? Right chest wall pain -Near previous radiation site 8. Hypertension - on diltiazem and Losartan per pcp Plan 1. ?Continue pembrolizumab and Lenvima 2.? Continue pembrolizumab (Keytruda) 200 mg every 3 weeks 3. ?Continue Lenvima 10 mg daily 4.? Plan to repeat PET/CT in April?before he goes to [place] for 3 months 5.? Continue levothyroxine.? TSH from today pending 6.? Continue Remeron 15 mg nightly to improve appetite. Advanced Care Planning Not discussed at this visit. Pain Scale on Today's Visit 0 Pain Plan on Today's Visit Date of Service: 04/21/2024 Pain Scale (0-10): 0 Pain Treatment Plan: No pain reported Comment: Smoking Status Smoking Tobacco : Never smoker; Smokeless Tobacco : Never used smokeless tobacco; Vaping : Never vaped Depression Screening Tool Status Was not screened Reason: Patient Refused; Screening Date: 03/30/2024 History of Present Illness This is a very pleasant?78-year-old gentleman?who underwent a CT scan of the abdomen and pelvis with contrast?December 01, 2021 for evaluation of abdominal pain, and was found to have acute diverticulitis of the sigmoid colon, without any evidence of perforation. ?He was incidentally found to have a heterogenous?9.8 cm mass in the right kidney, likely representing renal cell carcinoma.? There were also?indeterminate liver lesions.? He subsequently underwent an MRI of the abdomen with and without contrast on December 25, 2021, which showed?a 10 cm superior right renal mass,likely renal cell carcinoma, with no local invasion or metastatic?disease?evident.? There were flash filling?hemangiomas measuring up to 10 mm?in the lateral aspect of segment V.? There was also a 5 mm?liver cyst?in segment II.?CT of the chest performed?on December 25, 2021?showed?2 suspicious lung lesions measuring 1.4 cm and 1.2 cm within the right upper lobe and right lower lobe.? Malignancy cannot be ruled out.? In addition, he was found to have subtle tiny?foci of decreased?density?within the T1 vertebral body and manubrium,?possiblyrelated to osteoporosis, although metastatic disease cannot be excluded. He subsequently underwent a PET/CT?which showed findings suspicious?for a right-sided?renal cell carcinoma with?metastases involving a portacaval lymph node?and?nodule within the right lower and right upper lobes.? CT-guided?lung biopsy?confirmed?metastatic malignancy,but there was not enough tissue for?immunostains Repeat?biopsy of lung nodule was positive for renal cell carcinoma The patient started?Keytruda/Lenvima in the first-line setting on January 22, 2022 CT CAP 04/10/22 showed a good response to treatment so far. ?Primary tumor in the kidney is smaller. ?The biopsy-proven lung metastases are also smaller. ?The mildly enlarged portacaval lymph node which may or may not be related to his renal cell carcinoma is stable in size The patient underwent cytoreductive nephrectomy on?June 16, 2022. 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 ?Surgical resection marginswere negative. Restarted Keytruda and?Lenvima after surgery. Treatment was interrupted for a month in July-August due to rise in Cr?initially thought to be medication induced, but LANETTE resolved quickly and Cr has been stable in baseline 1.7-1.8 range after restarting treatment PET/CT from 09/2022 showed enlargement of the 2 lung metastases compared to the previous scan from March 2022. ?The portacaval lymph node is still very small, and actually has lower FDG uptake (now SUV max of 2.8) compared to last PET scan from December 2021. ?This remains indeterminate.? Unclear if this is real progression on first-line therapy or progression due to interruption of treatment. ?Since the last CT scan from March 2022, Lenvima was held from late April until early June due to diarrhea and surgery. ?Keytruda was interrupted due to surgery. ?Treatment was interrupted again in late July due to rising creatinine, which has now stabilized Discussed 2nd line treatment options. ?Patient decided to stay on first-line therapy in the formof Keytruda and Lenvima for now, while addressing the oligometastatic lung metastases with either SBRT or surgery. ?He also agreed to increased Lenvima dosage to 14 mg daily -He met with radiation oncology and surgery. ?Decided to pursue SBRT. PET/CT from February 01, 2023 showed expected response in the lung metastases treated with SBRT. ?The periportal lymph node is no longer hypermetabolic. ?There is a new tiny hypermetabolic lesion in the right humeral head. ?The patient reports no recent trauma to this area, so I think it is likely a small metastasis. ?He currently has no pain, and range of motion is intact.? This was treated with SBRT 02/26/2023 PET/CT from 04/28/2023 showed no new disease. ?The 2 lung mets and possible humeral head met thathave been radiated have decreased further in FDG uptake, consistent with response to radiation PET/CT from 07/2023 negative PET/CT from October 2023 showed development of an isolated soft tissue nodule in the right internal mammary/intercostal region measuring 5 mm?suspicious for isolated metastasis.?We decided to continue with pembrolizumab/Lenvima?and refer the patient to radiation oncology to consider SBRT for the isolated metastasis The patient underwent?SBRT for isolated?chest wall metastasis?in mid November 2023 PET/CT 02/2024 shows no new disease Interval History Kumar presents to the office today with his .? He was recently seen by nephrology at which time he was recommended to adjust?his blood pressure medications. ?Losartan was added but unfortunately he had significant?dizziness associated with this.? He did discontinue it and he is waiting to hear back from them regarding the further?recommendations. 2 days ago he experienced diarrhea?and did require Lomotil. ?He had a good response to this.? Previous rib pain at the location of his prior radiation therapy?has improved. ?He states it tends to wax and wane and often occurs based on?position. ?He denies any progressive pain.? He is scheduled to follow-up at the [facility] today and he will transition his care to [place] [facility] over the winter months. Review of Systems Remaining 14 point comprehensive review of systems within normal limits. NCCN Distress Thermometer and Problem List were collected and documented in the patient chart.? Remarkable symptoms and concerns were discussed with the patient.? Any additional follow-up is indicated in the plan. Past Medical and Surgical History Hypertension BPH Atrial fibrillation, rate controlled, not on anticoagulation?due to previous GI bleeding Type 2 diabetes, on glipizide Current Medications Medication List Name Date Diltiazem Oral 01/01/2022 Lenvatinib Oral 05/24/2023 Omeprazole Oral Delayed Release Capsule 12/24/2022 Levothyroxine 12/02/2023 Metoprolol Oral (Tartrate) 02/12/2022 Miralax (Polyethylene Glycol Oral Powder ) 07/09/2022 Tamsulosin Oral 12/31/2021 Prochlorperazine Oral 01/21/2022 Acetaminophen Oral 12/31/2021 Allergies Sulfamide and metformin Family History Unremarkable. ?Multiple first-degree and?second-degree family members with prostate cancer Social History Never smoker. ?No significant alcohol use.? Lives with in?[place].?He was in the [employer]?and served in [employer].? They traveled to?[facility]?for the winter months. Vital Signs Blood pressure: 176/80, Sitting, R arm, Pulse: 61, Temperature: 97.8 F, Respirations: 18, O2 sat: 98%, At Rest, Room Air, Pain Scale: 0, Height: 68 in, Weight: 167.6 lb, BSA: 1.9, BMI: 25.48 kg/m2 Covid-19 vaccine (Pfizer) (01/01/2022); Covid-19 vaccine ([place]) (05/21/2022); Covid-19 vaccine ([place]) (01/01/2022); Covid-19 vaccine (Pfizer) (01/01/2022); Covid-19 vaccine (Pfizer) (09/02/2023),Patient declined/rejected; Flu vaccine - Adult (03/30/2024); Flu vaccine - Adult (09/02/2023), Patient declined/rejected; Flu vaccine - Adult (04/15/2022); Flu vaccine - Adult (04/08/2023) Performance Status ECOG or Karnofsky ECO Symptoms, but ambulatory. Restricted in physically strenuous activity, but ambulatory and able to carry out work of a light or sedentary nature (e.g., light housework, office work). (Date: 02/12/2022) Karnofsky: 80% Normal activity with effort; some signs or symptoms of disease. (Date: 04/21/2024) Physical Exam GENERAL:?Alert and oriented x3. ?In no apparent distress. ?He is seated comfortably and his moods appropriate.? HEENT:?Pupils equal round and reactive to light. ?Sclera nonicteric. ?Conjunctive are pink.? Oropharynx is pink and moist no lesions or exudate LYMPH:?No palpable cervical supraclavicular axillary lymphadenopathy RESP:?No dyspnea with conversation lungs are clear to auscultation.?No wheezing rales or?on exam.? CARDIAC:?Regular rate and rhythm no ectopic beats or murmurs noted. ABDOMEN:?Soft and nontender?no guarding or rebound EXT:?Lower extremities without any edema upper extremities without edema cyanosis or clubbing SKIN:?Warm and dry no rashes or petechiae. NEURO:?Nonfocal gait intact Genetics/Molecular/Biomarkers * Renal cell carcinoma (disorder) ( Stage Date: Unknown, Stage IV RCC IMDC Risk Group: Favorable (no risk factors); Histopathologic Type: Clear cell renal carcinoma;) Additional Labs, Imaging, and Other Studies Lab Results CBC Lab Results 04/21/2024 03/30/2024 03/03/2024 02/24/2024 02/17/20 24 01/27/2024 CBC WBC x 10^3/uL 4.6 5.6 6.9 6.1 4.5 RBC x 10^6/uL 4.00 (L) 4.00 (L) 3.64 (L) 3.85 (L) 3.98 (L) NRBC % /100 wbc 0.0 0.0 0.0 0.0 0.0 HGB g/dL 13.0 12.9 12.1 (L) 12.8 13.1 HCT % 39.2 40.1 36.6 (L) 38.3 (L) 39.5 MCV fL 98.0 100.3 100.5 99.5 99.2 MCH pg 32.5 32.3 33.2 33.2 32.9 MCHC g/dL 33.2 32.2 33.1 33.4 33.2 RDW % 12.80 12.80 13.20 12.90 12.90 PLT x 10^3/uL 134 152 140 147 155 MPV fL 10.6 10.3 10.6 10.6 10.3 Platelet, immature, fraction % 3.8 Tatyana % 63.1 60.7 65.1 65.9 64.7 LY % 24.3 25.1 20.6 23.1 23.4 MO % 8.7 8.6 9.6 8.7 9.8 EO % 3.3 5.2 4.3 1.7 1.3 IG % 0.4 0.2 0.3 0.3 0.4 Tatyana # (ANC) x 10^3/uL 2.9 3.4 4.5 4.0 2.9 BA % 0.2 0.2 0.1 0.3 0.4 MO # x 10^3/uL 0.4 0.5 0.7 0.5 0.4 EO # x 10^3/uL 0.2 0.3 0.3 0.1 0.1 BA # x 10^3/uL 0.0 0.0 0.0 0.0 0.0 IG # x 10^3/uL 0.02 0.01 0.02 0.02 0.02 LY # x 10^3/uL 1.1 1.4 1.4 1.4 1.1 Chemistries Lab Results 04/21/2024 03/30/2024 03/03/2024 02/24/2024 02/17/20 24 01/27/2024 Chemistries Glucose mg/dL 115 (H) 99 134 (H) 116 (H) 138 (H) BUN mg/dL 19.0 26.0 (H) 30.0 (H) 34.0 (H) 26.0 (H) Creatinine mg/dL 1.40 (H) 1.60 (H) 1.50 (H) 1.80 (H) 1.70 (H) Sodium mmol/L 137 139 139 138 139 Potassium mmol/L 4.4 4.2 4.8 5.4 (H) 4.9 Chloride mmol/L 108 (H) 110 (H) 108 (H) 109 (H) 108 (H) CO2 mmol/L 25 20 (L) 24 21 (L) 24 Calcium mg/dL 8.2 (L) 8.5 9.0 8.7 8.7 Albumin g/dL 3.8 3.7 3.8 3.9 3.8 Total protein g/dL 6.8 6.5 6.6 6.8 6.9 Bilirubin, total mg/dL 0.4 0.5 0.7 0.4 0.5 Alkaline phosphatase U/L 79 69 77 61 71 AST/SGOT U/L 32 28 29 29 35 ALT/SGPT U/L 24 15 22 20 25 GFR estimate mL/min/1.73m2 50.9 (L) 43.4 (L) 46.9 (L) 37.7 (L) 40.4 (L) ? Surveys/Consents/Other Discussions Stefani Hinton RN, DAVID, MA, OCN CC: FAX Beto Anne MD Electronically signed by Mary Jane Ko RN, DAVID, MA, OCN 04/21/2024 11:00 HYDRAMATIC MECHANIC * Med Onc Follow-up Note Patient Name: KUMAR MALONE Date Of : 1945 Today's Provider:?Gio Lopez MD Date of Service:?03/30/2024 Attending Physician:?Gio Lopez (Hematology/Oncology) Referring Provider: Michael Arguelles MD (Urology) HEMATOLOGY/ MEDICAL ONCOLOGY FOLLOW UP VISIT Reason for Visit Oligometastatic renal cell carcinoma Assessment 1.?Oligometastatic clear cell renal cell carcinoma -Has been on first-line systemic therapy in the form of Keytruda and Lenvima since early January 2022 -CT CAP 04/10/22 showed a good response to treatment.? Primary tumor in the?kidney was smaller.? The biopsy-proven lung metastases were also?smaller.? The?mildly enlarged portacavallymph node which may or may not be related to?his renal cell carcinoma was stable in size -?Underwent cytoreductive nephrectomy on June 16, 2022. Surgical pathology showed grade 3 clear-cell renal cell carcinoma measuring 9.5 cm in the greatest dimension with invasion into the perinephric in the high lower adipose tissue. Surgical resection margins were negative. -Restarted Keytruda and Lenvima in mid to late?June after surgery. ?Tolerating relativelywell - Treatment paused for a month due to worsening Cr.? Workup by nephrology negative - Restarted Keytruda and Lenvima with stable Cr so far. - PET/CT from 09/2022?showed?enlargement of?the 2 lung metastases?compared to the previous scan?from March 2022.?The portacaval lymph node?is still very small, and?actually has lower?FDG uptake (now SUV max of 2.8) compared to last PET scan from December 2021.? This remains indeterminate. -Unclear if this is?real progression?on first-line therapy?or progression due to?interruption of treatment. ?Since the last?CT scan from March 2022,?Lenvima was held from?late April?until?early June?due to diarrhea and surgery.? Keytruda was?interrupted due to surgery.? Treatment was interrupted again?in late July?due to rising creatinine, which has now stabilized - Discussed 2nd line treatment options. ?Patient decided to stay on first- line therapy in the form of Keytruda and Lenvima, while addressing the oligometastatic lung metastases with either SBRT orsurgery. ?He also agreed to increase Lenvima dosage to 14 mg daily -He met with radiation oncology and surgery. ?Decided to pursue SBRT - PET/CT from?February 01, 2023 showed?expected response?in the?lung metastases treated with?SBRT. ?The periportal lymph node is no longer hypermetabolic.? There is a new?tiny hypermetabolic?lesion in the right humeral head s/p SBRT. - PET/CT from 04/28/2023 showed no new disease.? The 2 lung mets and possible humeral?head met?that have been radiated?have decreased further?in FDG uptake, consistent with response to radiation - PET/CT from 07/2023 negative -?PET/CT from October 2023 showed development of an isolated soft tissue nodule in the right internal mammary/intercostal region measuring 5 mm suspicious for isolated metastasis. - Patient did not wish to switch systemic therapy.? He underwent radiation therapy targeting theisolated chest wall metastasis?in mid November 2023 - PET/CT 02/2024 shows no new disease 2. Hypothyroidism - Started levothyroxine 05/02/22 - TSH from today pending 3.?Acute kidney injury -Baseline creatinine was in the 1.1-1.2 range.? Went up to 1.7-1.8 range after nephrectomy.? Then went up to 2.3. - saw nephrology.? 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 Decreased appetite -Likely due to lenvatinib - On Remeron 7.? Right chest wall pain -Near previous radiation site Plan 1. ?Continue pembrolizumab and Lenvima 2.? Continue Keytruda 200 mg every 3 weeks 3. ?Continue Lenvima 10 mg daily 4.? Plan to repeat PET/CT in April?before he goes to [place] for 3 months 5.? Continue levothyroxine.? TSH from today pending 6.? Continue Remeron 15 mg nightly to improve appetite. 7.? Rib X-ray for evaluate of right chest wall pain.? Patient also has PET scan coming up relatively soon.? Low suspicion for PE given clinical presentation Advanced Care Planning Not discussed at this visit. Pain Scale on Today's Visit 8 Pain Plan on Today's Visit No pain plan indicated for today's visit Smoking Status Smoking Tobacco : Never smoker; Smokeless Tobacco : Never used smokeless tobacco; Vaping : Never vaped Depression Screening Tool Status Was not screened Reason: Patient Refused; Screening Date: 03/30/2024 History of Present Illness This is a very pleasant?78-year-old gentleman?who underwent a CT scan of the abdomen and pelvis with contrast?December 01, 2021 for evaluation of abdominal pain, and was found to have acute diverticulitis of the sigmoid colon, without any evidence of perforation. ?He was incidentally found to have a heterogenous?9.8 cm mass in the right kidney, likely representing renal cell carcinoma.? There were also?indeterminate liver lesions.? He subsequently underwent an MRI of the abdomen with and without contrast on December 25, 2021, which showed?a 10 cm superior right renal mass,likely renal cell carcinoma, with no local invasion or metastatic?disease?evident.? There were flash filling?hemangiomas measuring up to 10 mm?in the lateral aspect of segment V.? There was also a 5 mm?liver cyst?in segment II.?CT of the chest performed?on December 25, 2021?showed?2 suspicious lung lesions measuring 1.4 cm and 1.2 cm within the right upper lobe and right lower lobe.? Malignancy cannot be ruled out.? In addition, he was found to have subtle tiny?foci of decreased?density?within the T1 vertebral body and manubrium,?possiblyrelated to osteoporosis, although metastatic disease cannot be excluded. He subsequently underwent a PET/CT?which showed findings suspicious?for a right-sided?renal cell carcinoma with?metastases involving a portacaval lymph node?and?nodule within the right lower and right upper lobes.? CT-guided?lung biopsy?confirmed?metastatic malignancy,but there was not enough tissue for?immunostains Repeat?biopsy of lung nodule was positive for renal cell carcinoma The patient started?Keytruda/Lenvima in the first-line setting on January 22, 2022 CT CAP 04/10/22 showed a good response to treatment so far. ?Primary tumor in the kidney is smaller. ?The biopsy-proven lung metastases are also smaller. ?The mildly enlarged portacaval lymph node which may or may not be related to his renal cell carcinoma is stable in size The patient underwent cytoreductive nephrectomy on?June 16, 2022. 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 ?Surgical resection marginswere negative. Restarted Keytruda and?Lenvima after surgery. Treatment was interrupted for a month in July-August due to rise in Cr?initially thought to be medication induced, but LANETTE resolved quickly and Cr has been stable in baseline 1.7-1.8 range after restarting treatment PET/CT from 09/2022 showed enlargement of the 2 lung metastases compared to the previous scan from March 2022. ?The portacaval lymph node is still very small, and actually has lower FDG uptake (now SUV max of 2.8) compared to last PET scan from December 2021. ?This remains indeterminate.? Unclear if this is real progression on first-line therapy or progression due to interruption of treatment. ?Since the last CT scan from March 2022, Lenvima was held from late April until early June due to diarrhea and surgery. ?Keytruda was interrupted due to surgery. ?Treatment was interrupted again in late July due to rising creatinine, which has now stabilized Discussed 2nd line treatment options. ?Patient decided to stay on first-line therapy in the formof Keytruda and Lenvima for now, while addressing the oligometastatic lung metastases with either SBRT or surgery. ?He also agreed to increased Lenvima dosage to 14 mg daily -He met with radiation oncology and surgery. ?Decided to pursue SBRT. PET/CT from February 01, 2023 showed expected response in the lung metastases treated with SBRT. ?The periportal lymph node is no longer hypermetabolic. ?There is a new tiny hypermetabolic lesion in the right humeral head. ?The patient reports no recent trauma to this area, so I think it is likely a small metastasis. ?He currently has no pain, and range of motion is intact.? This was treated with SBRT 02/26/2023 PET/CT from 04/28/2023 showed no new disease. ?The 2 lung mets and possible humeral head met thathave been radiated have decreased further in FDG uptake, consistent with response to radiation PET/CT from 07/2023 negative PET/CT from October 2023 showed development of an isolated soft tissue nodule in the right internal mammary/intercostal region measuring 5 mm?suspicious for isolated metastasis.?We decided to continue with pembrolizumab/Lenvima?and refer the patient to radiation oncology to consider SBRT for the isolated metastasis The patient underwent?SBRT for isolated?chest wall metastasis?in mid November 2023 PET/CT 02/2024 shows no new disease Interval History The patient returns to clinic today for a follow-up visit.? Over the past 2 weeks, he has been experiencing occasional?pain?on the?right anterior chest wall,?close to?the previous site of radiation.? Pain is worse with certain movements and with deep breathing.? No SOB.? He has been taking Tylenol, 1300 mg twice daily.?Denies any?pain anywhere else.? Still tolerating pembrolizumab and lenvatinib?relatively well, with no new side effects. Review of Systems Remaining 14 point comprehensive review of systems within normal limits. NCCN Distress Thermometer and Problem List were collected and documented in the patient chart.? Remarkable symptoms and concerns were discussed with the patient.? Any additional follow-up is indicated in the plan. Past Medical and Surgical History Hypertension BPH Atrial fibrillation, rate controlled, not on anticoagulation?due to previous GI bleeding Type 2 diabetes, on glipizide Current Medications Medication List Name Date Prochlorperazine Oral 01/21/2022 Lenvatinib Oral 05/24/2023 Acetaminophen Oral 12/31/2021 Diltiazem Oral 01/01/2022 Metoprolol Oral (Tartrate) 02/12/2022 Levothyroxine 12/02/2023 Tamsulosin Oral 12/31/2021 Miralax (Polyethylene Glycol Oral Powder ) 07/09/2022 Omeprazole Oral Delayed Release Capsule 12/24/2022 Allergies Sulfamide and metformin Family History Unremarkable. ?Multiple first-degree and?second-degree family members with prostate cancer Social History Never smoker. ?No significant alcohol use.? Lives with in?[place].?He was in the [employer]?and served in [place].? They traveled to?[facility]?for the winter months. Vital Signs Blood pressure: 162/76, Pulse: 57, Temperature: 96.5 F, Respirations: 16, O2 sat: 98%, Pain Scale: 8, Height: 68 in, Weight: 158 lb, BSA: 1.85, BMI: 24.02 kg/m2 Covid-19 vaccine (Pfizer) (01/01/2022); Covid-19 vaccine (Pfizer) (01/01/2022); Covid-19 vaccine (Pfizer) (05/21/2022); Covid-19 vaccine (Pfizer) (01/01/2022); Covid-19 vaccine (Pfizer) (09/02/2023),Patient declined/rejected; Flu vaccine - Adult (03/30/2024); Flu vaccine - Adult (09/02/2023), Patient declined/rejected; Flu vaccine - Adult (04/15/2022); Flu vaccine - Adult (04/08/2023) Performance Status ECOG or Karnofsky ECO Symptoms, but ambulatory. Restricted in physically strenuous activity, but ambulatory and able to carry out work of a light or sedentary nature (e.g., light housework, office work). (Date: 02/12/2022) Karnofsky: 80% Normal activity with effort; some signs or symptoms of disease. (Date: 03/09/2024) Physical Exam General: Awake, alert, and oriented. ?ECOG PS 0 Skin: ?No bruising or skin rash noted. Eyes: ? Sclera anicteric. ? Mouth: ?Moist mucous membranes without ulceration Lymphatics: No palpable lymphadenopathy Abdomen: ?Soft, nontender, nondistended. ? Extremities: ?Well perfused, no edema. Genetics/Molecular/Biomarkers * Renal cell carcinoma (disorder) ( Stage Date: Unknown, Stage IV RCC IMDC Risk Group: Favorable (no risk factors); Histopathologic Type: Clear cell renal carcinoma;) Additional Labs, Imaging, and Other Studies Lab Results CBC Lab Results 03/30/2024 03/03/2024 02/24/2024 02/17/2024 01/27/20 24 01/06/2024 CBC WBC x 10^3/uL 5.6 6.9 6.1 4.5 5.1 RBC x 10^6/uL 4 (L) 3.64 (L) 3.85 (L) 3.98 (L) 3.92 (L) NRBC % /100 wbc 0.0 0.0 0.0 0.0 0.0 HGB g/dL 12.9 12.1 (L) 12.8 13.1 13.1 HCT % 40.1 36.6 (L) 38.3 (L) 39.5 39.1 MCV fL 100.3 100.5 99.5 99.2 99.7 MCH pg 32.3 33.2 33.2 32.9 33.4 MCHC g/dL 32.2 33.1 33.4 33.2 33.5 RDW % 12.80 13.20 12.90 12.90 13 PLT x 10^3/uL 152 140 147 155 139 MPV fL 10.3 10.6 10.6 10.3 9.7 Tatyana % 60.7 65.1 65.9 64.7 67.4 LY % 25.1 20.6 23.1 23.4 21.3 MO % 8.6 9.6 8.7 9.8 8.7 EO % 5.2 4.3 1.7 1.3 1.6 IG % 0.2 0.3 0.3 0.4 0.6 (H) Tatyana # (ANC) x 10^3/uL 3.4 4.5 4.0 2.9 3.4 BA % 0.2 0.1 0.3 0.4 0.4 MO # x 10^3/uL 0.5 0.7 0.5 0.4 0.4 EO # x 10^3/uL 0.3 0.3 0.1 0.1 0.1 BA # x 10^3/uL 0.0 0.0 0.0 0.0 0.0 IG # x 10^3/uL 0.01 0.02 0.02 0.02 0.03 LY # x 10^3/uL 1.4 1.4 1.4 1.1 1.1 Chemistries Lab Results 03/30/2024 03/03/2024 02/24/2024 02/17/2024 01/27/2001/06/2024 Chemistries Glucose mg/dL 99 134 (H) 116 (H) 138 (H) 98 BUN mg/dL 26.0 (H) 30.0 (H) 34.0 (H) 26.0 (H) 27.0 (H) Creatinine mg/dL 1.60 (H) 1.50 (H) 1.80 (H) 1.70 (H) 1.70 (H) Sodium mmol/L 139 139 138 139 138 Potassium mmol/L 4.2 4.8 5.4 (H) 4.9 5.0 Chloride mmol/L 110 (H) 108 (H) 109 (H) 108 (H) 109 (H) CO2 mmol/L 20 (L) 24 21 (L) 24 22 Calcium mg/dL 8.5 9.0 8.7 8.7 8.7 Albumin g/dL 3.7 3.8 3.9 3.8 3.9 Total protein g/dL 6.5 6.6 6.8 6.9 7.0 Bilirubin, total mg/dL 0.5 0.7 0.4 0.5 0.6 Alkaline phosphatase U/L 69 77 61 71 65 AST/SGOT U/L 28 29 29 35 35 ALT/SGPT U/L 15 22 20 25 27 GFR estimate mL/min/1.73m2 43.4 (L) 46.9 (L) 37.7 (L) 40.4 (L) 40.4 (L) ? Surveys/Consents/Other Discussions Gio Lopez MD CC: Ulises Dowell MD FAX Beto Arguelles MD (Referring) MD Jess Valentin MD Electronically signed by Gio Lopez MD 03/30/2024 20:36 HYDRAM[employer]IC * Med Onc Follow-up Note Patient Name: KUMAR MALONE Date Of : 1945 Today's Provider:?Gio Lopez MD Date of Service:?03/03/2024 Attending Physician:?Gio Lopez (Hematology/Oncology) Referring Provider: Michael Arguelles MD (Urology) HEMATOLOGY/ MEDICAL ONCOLOGY FOLLOW UP VISIT Reason for Visit Oligometastatic renal cell carcinoma Assessment 1.?Oligometastatic clear cell renal cell carcinoma -Has been on first-line systemic therapy in the form of Keytruda and Lenvima since early January 2022 -CT CAP 04/10/22 showed a good response to treatment.? Primary tumor in the?kidney was smaller.? The biopsy-proven lung metastases were also?smaller.? The?mildly enlarged portacavallymph node which may or may not be related to?his renal cell carcinoma was stable in size -?Underwent cytoreductive nephrectomy on June 16, 2022. Surgical pathology showed grade 3 clear-cell renal cell carcinoma measuring 9.5 cm in the greatest dimension with invasion into the perinephric in the high lower adipose tissue. Surgical resection margins were negative. -Restarted Keytruda and Lenvima in mid to late?June after surgery. ?Tolerating relativelywell - Treatment paused for a month due to worsening Cr.? Workup by nephrology negative - Restarted Keytruda and Lenvima with stable Cr so far. - PET/CT from 09/2022?showed?enlargement of?the 2 lung metastases?compared to the previous scan?from March 2022.?The portacaval lymph node?is still very small, and?actually has lower?FDG uptake (now SUV max of 2.8) compared to last PET scan from December 2021.? This remains indeterminate. -Unclear if this is?real progression?on first-line therapy?or progression due to?interruption of treatment. ?Since the last?CT scan from March 2022,?Lenvima was held from?late April?until?early June?due to diarrhea and surgery.? Keytruda was?interrupted due to surgery.? Treatment was interrupted again?in late July?due to rising creatinine, which has now stabilized - Discussed 2nd line treatment options. ?Patient decided to stay on first- line therapy in the form of Keytruda and Lenvima, while addressing the oligometastatic lung metastases with either SBRT orsurgery. ?He also agreed to increase Lenvima dosage to 14 mg daily -He met with radiation oncology and surgery. ?Decided to pursue SBRT - PET/CT from?February 01, 2023 showed?expected response?in the?lung metastases treated with?SBRT. ?The periportal lymph node is no longer hypermetabolic.? There is a new?tiny hypermetabolic?lesion in the right humeral head s/p SBRT. - PET/CT from 04/28/2023 showed no new disease.? The 2 lung mets and possible humeral?head met?that have been radiated?have decreased further?in FDG uptake, consistent with response to radiation - PET/CT from 07/2023 negative -?PET/CT from October 2023 showed development of an isolated soft tissue nodule in the right internal mammary/intercostal region measuring 5 mm suspicious for isolated metastasis. - Patient did not wish to switch systemic therapy.? He underwent radiation therapy targeting theisolated chest wall metastasis?in mid November 2023 - PET/CT 02/2024 shows no new disease 2. Hypothyroidism - Started levothyroxine 05/02/22, now on 100 mcg daily - TSH from today pending 3.?Acute kidney injury -Baseline creatinine was in the 1.1-1.2 range.? Went up to 1.7-1.8 range after nephrectomy.? Then went up to 2.3. - saw nephrology.? 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 Decreased appetite -Likely due to lenvatinib Plan 1. ?Continue pembrolizumab and Lenvima 2.? Continue Keytruda 200 mg every 3 weeks 3. ?Continue Lenvima 10 mg daily 4.? Plan to repeat PET/CT in late April?before he goes to [place] for 3 months 5.? Continue levothyroxine at 100 mcg daily.? TSH from today pending 6.? Starting the patient on Remeron 15 mg nightly to improve appetite. Advanced Care Planning Not discussed at this visit. Pain Scale on Today's Visit 0 Pain Plan on Today's Visit No pain plan indicated for today's visit Smoking Status Smoking Tobacco : Never smoker; Smokeless Tobacco : Never used smokeless tobacco; Vaping : Never vaped Depression Screening Tool Status Was not screened Reason: Patient Refused; Screening Date: 03/03/2024 History of Present Illness This is a very pleasant?78-year-old gentleman?who underwent a CT scan of the abdomen and pelvis with contrast?December 01, 2021 for evaluation of abdominal pain, and was found to have acute diverticulitis of the sigmoid colon, without any evidence of perforation. ?He was incidentally found to have a heterogenous?9.8 cm mass in the right kidney, likely representing renal cell carcinoma.? There were also?indeterminate liver lesions.? He subsequently underwent an MRI of the abdomen with and without contrast on December 25, 2021, which showed?a 10 cm superior right renal mass,likely renal cell carcinoma, with no local invasion or metastatic?disease?evident.? There were flash filling?hemangiomas measuring up to 10 mm?in the lateral aspect of segment V.? There was also a 5 mm?liver cyst?in segment II.?CT of the chest performed?on December 25, 2021?showed?2 suspicious lung lesions measuring 1.4 cm and 1.2 cm within the right upper lobe and right lower lobe.? Malignancy cannot be ruled out.? In addition, he was found to have subtle tiny?foci of decreased?density?within the T1 vertebral body and manubrium,?possiblyrelated to osteoporosis, although metastatic disease cannot be excluded. He subsequently underwent a PET/CT?which showed findings suspicious?for a right-sided?renal cell carcinoma with?metastases involving a portacaval lymph node?and?nodule within the right lower and right upper lobes.? CT-guided?lung biopsy?confirmed?metastatic malignancy,but there was not enough tissue for?immunostains Repeat?biopsy of lung nodule was positive for renal cell carcinoma The patient started?Keytruda/Lenvima in the first-line setting on January 22, 2022 CT CAP 04/10/22 showed a good response to treatment so far. ?Primary tumor in the kidney is smaller. ?The biopsy-proven lung metastases are also smaller. ?The mildly enlarged portacaval lymph node which may or may not be related to his renal cell carcinoma is stable in size The patient underwent cytoreductive nephrectomy on?June 16, 2022. 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 ?Surgical resection marginswere negative. Restarted Keytruda and?Lenvima after surgery. Treatment was interrupted for a month in July-August due to rise in Cr?initially thought to be medication induced, but LANETTE resolved quickly and Cr has been stable in baseline 1.7-1.8 range after restarting treatment PET/CT from 09/2022 showed enlargement of the 2 lung metastases compared to the previous scan from March 2022. ?The portacaval lymph node is still very small, and actually has lower FDG uptake (now SUV max of 2.8) compared to last PET scan from December 2021. ?This remains indeterminate.? Unclear if this is real progression on first-line therapy or progression due to interruption of treatment. ?Since the last CT scan from March 2022, Lenvima was held from late April until early June due to diarrhea and surgery. ?Keytruda was interrupted due to surgery. ?Treatment was interrupted again in late July due to rising creatinine, which has now stabilized Discussed 2nd line treatment options. ?Patient decided to stay on first-line therapy in the formof Keytruda and Lenvima for now, while addressing the oligometastatic lung metastases with either SBRT or surgery. ?He also agreed to increased Lenvima dosage to 14 mg daily -He met with radiation oncology and surgery. ?Decided to pursue SBRT. PET/CT from February 01, 2023 showed expected response in the lung metastases treated with SBRT. ?The periportal lymph node is no longer hypermetabolic. ?There is a new tiny hypermetabolic lesion in the right humeral head. ?The patient reports no recent trauma to this area, so I think it is likely a small metastasis. ?He currently has no pain, and range of motion is intact.? This was treated with SBRT 02/26/2023 PET/CT from 04/28/2023 showed no new disease. ?The 2 lung mets and possible humeral head met thathave been radiated have decreased further in FDG uptake, consistent with response to radiation PET/CT from 07/2023 negative PET/CT from October 2023 showed development of an isolated soft tissue nodule in the right internal mammary/intercostal region measuring 5 mm?suspicious for isolated metastasis.?We decided to continue with pembrolizumab/Lenvima?and refer the patient to radiation oncology to consider SBRT for the isolated metastasis The patient underwent?SBRT for isolated?chest wall metastasis?in mid November 2023 Interval History The patient returns to clinic today for a follow-up visit. ?He denies any new symptoms. ?No new bone pain or focal neurologic symptoms.? He continues to report?decreased appetite, though his weight is stable.? 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 NCCN Distress Thermometer and Problem List were collected and documented in the patient chart.? Remarkable symptoms and concerns were discussed with the patient.? Any additional follow-up is indicated in the plan. Past Medical and Surgical History Hypertension BPH Atrial fibrillation, rate controlled, not on anticoagulation?due to previous GI bleeding Type 2 diabetes, on glipizide Current Medications Medication List Name Date Acetaminophen Oral 12/31/2021 Diltiazem Oral 01/01/2022 Tamsulosin Oral 12/31/2021 Omeprazole Oral Delayed Release Capsule 12/24/2022 Mirtazapine Oral 03/03/2024 Prochlorperazine Oral 01/21/2022 Miralax (Polyethylene Glycol Oral Powder ) 07/09/2022 Lenvatinib Oral 05/24/2023 Levothyroxine 12/02/2023 Metoprolol Oral (Tartrate) 02/12/2022 Allergies Sulfamide and metformin Family History Unremarkable. ?Multiple first-degree and?second-degree family members with prostate cancer Social History Never smoker. ?No significant alcohol use.? Lives with in?[place].?He was in the [employer]?and served in [place].? They traveled to?[facility]?for the winter months. Vital Signs Blood pressure: 148/82, Pulse: 59, Temperature: 96.6 F, Respirations: 16, O2 sat: 95%, Pain Scale: 0, Height: 68 in, Weight: 167.2 lb, BSA: 1.89, BMI: 25.42 kg/m2 Covid-19 vaccine (Pfizer) (01/01/2022); Covid-19 vaccine (Pfizer) (05/21/2022); Covid-19 vaccine (Pfizer) (01/01/2022); Covid-19 vaccine (Pfizer) (09/02/2023), Patient declined/rejected; Covid-19 vaccine (Pfizer) (01/01/2022); Flu vaccine - Adult (09/02/2023), Patient declined/rejected; Flu vaccine- Adult (04/15/2022); Flu vaccine - Adult (04/08/2023) Performance Status ECOG or Karnofsky ECO Symptoms, but ambulatory. Restricted in physically strenuous activity, but ambulatory and able to carry out work of a light or sedentary nature (e.g., light housework, office work). (Date: 02/12/2022) Karnofsky: 80% Normal activity with effort; some signs or symptoms of disease. (Date: 02/17/2024) Physical Exam General: Awake, alert, and oriented. ?ECOG PS 0 Skin: ?No bruising or skin rash noted. Eyes: ? Sclera anicteric. ? Mouth: ?Moist mucous membranes without ulceration Lymphatics: No palpable lymphadenopathy Abdomen: ?Soft, nontender, nondistended. ? Extremities: ?Well perfused, no edema. Genetics/Molecular/Biomarkers * Renal cell carcinoma (disorder) ( Stage Date: Unknown, Stage IV RCC IMDC Risk Group: Favorable (no risk factors); Histopathologic Type: Clear cell renal carcinoma;) Additional Labs, Imaging, and Other Studies Lab Results CBC Lab Results 03/03/2024 02/24/2024 02/17/2024 01/27/2024 01/06/2012/16/2023 CBC WBC x 10^3/uL 6.9 6.1 4.5 5.1 4.6 RBC x 10^6/uL 3.64 (L) 3.85 (L) 3.98 (L) 3.92 (L) 4.03 (L) NRBC % /100 wbc 0.0 0.0 0.0 0.0 0.0 HGB g/dL 12.1 (L) 12.8 13.1 13.1 13.4 HCT % 36.6 (L) 38.3 (L) 39.5 39.1 40.1 MCV fL 100.5 99.5 99.2 99.7 99.5 MCH pg 33.2 33.2 32.9 33.4 33.3 MCHC g/dL 33.1 33.4 33.2 33.5 33.4 RDW % 13.20 12.90 12.90 13 12.60 PLT x 10^3/uL 140 147 155 139 147 MPV fL 10.6 10.6 10.3 9.7 10.5 Tatyana % 65.1 65.9 64.7 67.4 68.2 LY % 20.6 23.1 23.4 21.3 19.7 MO % 9.6 8.7 9.8 8.7 9.0 EO % 4.3 1.7 1.3 1.6 2.2 IG % 0.3 0.3 0.4 0.6 (H) 0.2 Tatyana # (ANC) x 10^3/uL 4.5 4.0 2.9 3.4 3.1 BA % 0.1 0.3 0.4 0.4 0.7 MO # x 10^3/uL 0.7 0.5 0.4 0.4 0.4 EO # x 10^3/uL 0.3 0.1 0.1 0.1 0.1 BA # x 10^3/uL 0.0 0.0 0.0 0.0 0.0 IG # x 10^3/uL 0.02 0.02 0.02 0.03 0.01 LY # x 10^3/uL 1.4 1.4 1.1 1.1 0.9 Chemistries Lab Results 03/03/2024 02/24/2024 02/17/2024 01/27/2024 01/06/2012/16/2023 Chemistries Glucose mg/dL 134 (H) 116 (H) 138 (H) 98 131 (H) BUN mg/dL 30.0 (H) 34.0 (H) 26.0 (H) 27.0 (H) 30.0 (H) Creatinine mg/dL 1.50 (H) 1.80 (H) 1.70 (H) 1.70 (H) 1.60 (H) Sodium mmol/L 139 138 139 138 137 Potassium mmol/L 4.8 5.4 (H) 4.9 5.0 4.5 Chloride mmol/L 108 (H) 109 (H) 108 (H) 109 (H) 109 (H) CO2 mmol/L 24 21 (L) 24 22 22 Calcium mg/dL 9.0 8.7 8.7 8.7 8.8 Albumin g/dL 3.8 3.9 3.8 3.9 4.2 Total protein g/dL 6.6 6.8 6.9 7.0 7.2 Bilirubin, total mg/dL 0.7 0.4 0.5 0.6 0.5 Alkaline phosphatase U/L 77 61 71 65 59 AST/SGOT U/L 29 29 35 35 40 ALT/SGPT U/L 22 20 25 27 22 GFR estimate mL/min/1.73m2 46.9 (L) 37.7 (L) 40.4 (L) 40.4 (L) 43.4 (L) ? Surveys/Consents/Other Discussions Gio Lopez MD CC: Ulises Dowell MD FAX Beto Arguelles MD (Referring) MD Jess Valentin MD Electronically signed by Gio Lopez MD 03/03/2024 10:25 CDT * Med Onc Follow-up Note Patient Name: KUMAR MALONE Date Of : 1945 Today's Provider:?Mary Jane Ko RN, ELECT[employer]OLS TECHNICIAN, MA, OCN Date of Service:?02/17/2024 Attending Physician:?Gio Lopez (Hematology/Oncology) Referring Provider: Michael Arguelles MD (Urology) HEMATOLOGY/ MEDICAL ONCOLOGY FOLLOW UP VISIT Reason for Visit Oligometastatic renal cell carcinoma Assessment 1.?Oligometastatic clear cell renal cell carcinoma -Has been on first-line systemic therapy in the form of Keytruda and Lenvima since early January 2022 -CT CAP 04/10/22 showed a good response to treatment.? Primary tumor in the?kidney was smaller.? The biopsy-proven lung metastases were also?smaller.? The?mildly enlarged portacavallymph node which may or may not be related to?his renal cell carcinoma was stable in size -?Underwent cytoreductive nephrectomy on June 16, 2022. Surgical pathology showed grade 3 clear-cell renal cell carcinoma measuring 9.5 cm in the greatest dimension with invasion into the perinephric in the high lower adipose tissue. Surgical resection margins were negative. -Restarted Keytruda and Lenvima in mid to late?June after surgery. ?Tolerating relativelywell - Treatment paused for a month due to worsening Cr.? Workup by nephrology negative - Restarted Keytruda and Lenvima with stable Cr so far. - PET/CT from 09/2022?showed?enlargement of?the 2 lung metastases?compared to the previous scan?from March 2022.?The portacaval lymph node?is still very small, and?actually has lower?FDG uptake (now SUV max of 2.8) compared to last PET scan from December 2021.? This remains indeterminate. -Unclear if this is?real progression?on first-line therapy?or progression due to?interruption of treatment. ?Since the last?CT scan from March 2022,?Lenvima was held from?late April?until?early June?due to diarrhea and surgery.? Keytruda was?interrupted due to surgery.? Treatment was interrupted again?in late July?due to rising creatinine, which has now stabilized - Discussed 2nd line treatment options. ?Patient decided to stay on first- line therapy in the form of Keytruda and Lenvima, while addressing the oligometastatic lung metastases with either SBRT orsurgery. ?He also agreed to increase Lenvima dosage to 14 mg daily -He met with radiation oncology and surgery. ?Decided to pursue SBRT - PET/CT from?February 01, 2023 showed?expected response?in the?lung metastases treated with?SBRT. ?The periportal lymph node is no longer hypermetabolic.? There is a new?tiny hypermetabolic?lesion in the right humeral head s/p SBRT. - PET/CT from 04/28/2023 showed no new disease.? The 2 lung mets and possible humeral?head met?that have been radiated?have decreased further?in FDG uptake, consistent with response to radiation - PET/CT from 07/2023 negative -?PET/CT from October 2023 showed development of an isolated soft tissue nodule in the right internal mammary/intercostal region measuring 5 mm suspicious for isolated metastasis. - Patient did not wish to switch systemic therapy.? He underwent radiation therapy targeting theisolated chest wall metastasis?in mid November 2023 2. Hypothyroidism - Started levothyroxine 05/02/22, now on 100 mcg daily - TSH from 3 weeks ago WNL.? TSH from today pending 3.?Acute kidney injury -Baseline creatinine was in the 1.1-1.2 range.? Went up to 1.7-1.8 range after nephrectomy.? Then went up to 2.3. - saw nephrology.? Workup negative - Cr back to baseline in 1.6-1.7 range - Unlikely to be immune-mediated nephritis due to Keytruda or Lenvima induced nephropathy 4. Humeral head met - s/p Rad rx on 02/26/[address] Sahu 5.? 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 ?Continue pembrolizumab and Lenvima 2.? Continue Keytruda 200 mg every 3 weeks 3. ?Continue Lenvima 10 mg daily 4.? Plan to repeat PET/CT prior to return (early February) 5.? Continue levothyroxine at 100 mcg daily.? TSH from today pending 6.? Small frequent meals. declined need for appetite stimulant. Advanced Care Planning Not discussed at this visit. Pain Scale on Today's Visit 2 Pain Plan on Today's Visit Date of Service: 02/17/2024 Pain Scale (0-10): 2 Pain Treatment Plan: Reassessment of pain at an appropriate time interval Comment: Smoking Status Smoking Tobacco : Never smoker; Smokeless Tobacco : Never used smokeless tobacco; Vaping : Never vaped Depression Screening Tool Status Was not screened Reason: Patient Refused; Screening Date: 01/27/2024 History of Present Illness This is a very pleasant?78-year-old gentleman?who underwent a CT scan of the abdomen and pelvis with contrast?December 01, 2021 for evaluation of abdominal pain, and was found to have acute diverticulitis of the sigmoid colon, without any evidence of perforation. ?He was incidentally found to have a heterogenous?9.8 cm mass in the right kidney, likely representing renal cell carcinoma.? There were also?indeterminate liver lesions.? He subsequently underwent an MRI of the abdomen with and without contrast on December 25, 2021, which showed?a 10 cm superior right renal mass,likely renal cell carcinoma, with no local invasion or metastatic?disease?evident.? There were flash filling?hemangiomas measuring up to 10 mm?in the lateral aspect of segment V.? There was also a 5 mm?liver cyst?in segment II.?CT of the chest performed?on December 25, 2021?showed?2 suspicious lung lesions measuring 1.4 cm and 1.2 cm within the right upper lobe and right lower lobe.? Malignancy cannot be ruled out.? In addition, he was found to have subtle tiny?foci of decreased?density?within the T1 vertebral body and manubrium,?possiblyrelated to osteoporosis, although metastatic disease cannot be excluded. He subsequently underwent a PET/CT?which showed findings suspicious?for a right-sided?renal cell carcinoma with?metastases involving a portacaval lymph node?and?nodule within the right lower and right upper lobes.? CT-guided?lung biopsy?confirmed?metastatic malignancy,but there was not enough tissue for?immunostains Repeat?biopsy of lung nodule was positive for renal cell carcinoma The patient started?Keytruda/Lenvima in the first-line setting on January 22, 2022 CT CAP 04/10/22 showed a good response to treatment so far. ?Primary tumor in the kidney is smaller. ?The biopsy-proven lung metastases are also smaller. ?The mildly enlarged portacaval lymph node which may or may not be related to his renal cell carcinoma is stable in size The patient underwent cytoreductive nephrectomy on?June 16, 2022. 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 ?Surgical resection marginswere negative. Restarted Keytruda and?Lenvima after surgery. Treatment was interrupted for a month in July-August due to rise in Cr?initially thought to be medication induced, but LANETTE resolved quickly and Cr has been stable in baseline 1.7-1.8 range after restarting treatment PET/CT from 09/2022 showed enlargement of the 2 lung metastases compared to the previous scan from March 2022. ?The portacaval lymph node is still very small, and actually has lower FDG uptake (now SUV max of 2.8) compared to last PET scan from December 2021. ?This remains indeterminate.? Unclear if this is real progression on first-line therapy or progression due to interruption of treatment. ?Since the last CT scan from March 2022, Lenvima was held from late April until early June due to diarrhea and surgery. ?Keytruda was interrupted due to surgery. ?Treatment was interrupted again in late July due to rising creatinine, which has now stabilized Discussed 2nd line treatment options. ?Patient decided to stay on first-line therapy in the formof Keytruda and Lenvima for now, while addressing the oligometastatic lung metastases with either SBRT or surgery. ?He also agreed to increased Lenvima dosage to 14 mg daily -He met with radiation oncology and surgery. ?Decided to pursue SBRT. PET/CT from February 01, 2023 showed expected response in the lung metastases treated with SBRT. ?The periportal lymph node is no longer hypermetabolic. ?There is a new tiny hypermetabolic lesion in the right humeral head. ?The patient reports no recent trauma to this area, so I think it is likely a small metastasis. ?He currently has no pain, and range of motion is intact.? This was treated with SBRT 02/26/2023 PET/CT from 04/28/2023 showed no new disease. ?The 2 lung mets and possible humeral head met thathave been radiated have decreased further in FDG uptake, consistent with response to radiation PET/CT from 07/2023 negative PET/CT from October 2023 showed development of an isolated soft tissue nodule in the right internal mammary/intercostal region measuring 5 mm?suspicious for isolated metastasis.?We decided to continue with pembrolizumab/Lenvima?and refer the patient to radiation oncology to consider SBRT for the isolated metastasis The patient underwent?SBRT for isolated?chest wall metastasis?in mid November 2023 Interval History Kumar is concerned as he notes a 10lbs weight loss over the summer . Appetite is good but canonly eat small amounts and then feels full. He also notes increase fatigue but does remain active. No fever, chills or infectious symptoms. They are planning to travel to [place] for the winter.They are hoping to leave right after [place] and next imaging may need to be performed a bit earlier than planned due to their travel plans.? Review of Systems Remaining 14 point comprehensive review of systems within normal limits. NCCN Distress Thermometer and Problem List were collected and documented in the patient chart.? Remarkable symptoms and concerns were discussed with the patient.? Any additional follow-up is indicated in the plan. Past Medical and Surgical History Hypertension BPH Atrial fibrillation, rate controlled, not on anticoagulation?due to previous GI bleeding Type 2 diabetes, on glipizide Current Medications Medication List Name Date Prochlorperazine Oral 01/21/2022 Metoprolol Oral (Tartrate) 02/12/2022 Tamsulosin Oral 12/31/2021 Miralax (Polyethylene Glycol Oral Powder ) 07/09/2022 Acetaminophen Oral 12/31/2021 Omeprazole Oral Delayed Release Capsule 12/24/2022 Lenvatinib Oral 05/24/2023 Diltiazem Oral 01/01/2022 Levothyroxine 12/02/2023 Allergies Sulfamide and metformin Family History Unremarkable. ?Multiple first-degree and?second-degree family members with prostate cancer Social History Never smoker. ?No significant alcohol use.? Lives with in?[place].?He was in the [employer]?and served in [id number].? They traveled to?[facility]?for the winter. Vital Signs Blood pressure: 138/72, Pulse: 51, Temperature: 97.5 F, Respirations: 16, O2 sat: 98%, Pain Scale: 2, Height: 68 in, Weight: 164.2 lb, BSA: 1.88, BMI: 24.97 kg/m2 Covid-19 vaccine (Pfizer) (05/21/2022); Covid-19 vaccine (Pfizer) (01/01/2022); Covid-19 vaccine (Pfizer) (09/02/2023), Patient declined/rejected; Covid-19 vaccine (Pfizer) (01/01/2022); Covid-19 vaccine (Pfizer) (01/01/2022); Flu vaccine - Adult (09/02/2023), Patient declined/rejected; Flu vaccine- Adult (04/08/2023); Flu vaccine - Adult (04/15/2022) Performance Status ECOG or Karnofsky ECO Symptoms, but ambulatory. Restricted in physically strenuous activity, but ambulatory and able to carry out work of a light or sedentary nature (e.g., light housework, office work). (Date: 02/12/2022) Karnofsky: 80% Normal activity with effort; some signs or symptoms of disease. (Date: 02/17/2024) Physical Exam GENERAL:?Alert and oriented x3. ?In no apparent distress. ?He is seated comfortably and his moods appropriate.? HEENT:?Pupils equal round and reactive to light. ?Sclera nonicteric. ?Conjunctive are pink.? Oropharynx is pink and moist no lesions or exudate LYMPH:?No palpable cervical supraclavicular axillary lymphadenopathy RESP:?No dyspnea with conversation lungs are clear to auscultation.?No wheezing rales or?on exam.? CARDIAC:?Regular rate and rhythm no ectopic beats or murmurs noted. ABDOMEN:?Soft and nontender?no guarding or rebound EXT:?Lower extremities without any edema upper extremities without edema cyanosis or clubbing SKIN:?Warm and dry no rashes or petechiae. NEURO:?Nonfocal gait intact Genetics/Molecular/Biomarkers * Renal cell carcinoma (disorder) ( Stage Date: Unknown, Stage IV RCC IMDC Risk Group: Favorable (no risk factors); Histopathologic Type: Clear cell renal carcinoma;) Additional Labs, Imaging, and Other Studies Lab Results CBC Lab Results 02/17/2024 01/27/2024 01/06/2024 12/16/2023 12/02/1911/26/2023 CBC WBC x 10^3/uL 6.1 4.5 5.1 4.6 5.1 RBC x 10^6/uL 3.85 (L) 3.98 (L) 3.92 (L) 4.03 (L) 4.16 (L) NRBC % /100 wbc 0.0 0.0 0.0 0.0 0.0 HGB g/dL 12.8 13.1 13.1 13.4 13.6 HCT % 38.3 (L) 39.5 39.1 40.1 41.5 MCV fL 99.5 99.2 99.7 99.5 99.8 MCH pg 33.2 32.9 33.4 33.3 32.7 MCHC g/dL 33.4 33.2 33.5 33.4 32.8 RDW % 12.90 12.90 13 12.60 12.70 PLT x 10^3/uL 147 155 139 147 153 MPV fL 10.6 10.3 9.7 10.5 10.4 Tatyana % 65.9 64.7 67.4 68.2 55.7 LY % 23.1 23.4 21.3 19.7 32.5 MO % 8.7 9.8 8.7 9.0 9.3 EO % 1.7 1.3 1.6 2.2 1.9 IG % 0.3 0.4 0.6 (H) 0.2 0.4 Tatyana # (ANC) x 10^3/uL 4.0 2.9 3.4 3.1 2.9 BA % 0.3 0.4 0.4 0.7 0.2 MO # x 10^3/uL 0.5 0.4 0.4 0.4 0.5 EO # x 10^3/uL 0.1 0.1 0.1 0.1 0.1 BA # x 10^3/uL 0.0 0.0 0.0 0.0 0.0 IG # x 10^3/uL 0.02 0.02 0.03 0.01 0.02 LY # x 10^3/uL 1.4 1.1 1.1 0.9 1.7 Chemistries Lab Results 02/17/2024 01/27/2024 01/06/2024 12/16/2023 12/02/1911/26/2023 Chemistries Glucose mg/dL 138 (H) 98 131 (H) 98 BUN mg/dL 26.0 (H) 27.0 (H) 30.0 (H) 20.0 Creatinine mg/dL 1.70 (H) 1.70 (H) 1.60 (H) 1.60 (H) Sodium mmol/L 139 138 137 138 Potassium mmol/L 4.9 5.0 4.5 5.7 Crit ical chemistry value obtained. (HH) Potassium, iSTAT mmol/L 4.9 Chloride mmol/L 108 (H) 109 (H) 109 (H) 103 Sodium, iSTAT mmol/L 135 (L) Chloride, iSTAT mmol/L 104 CO2 mmol/L 24 22 22 25 Calcium mg/dL 8.7 8.7 8.8 9.4 Albumin g/dL 3.8 3.9 4.2 4.1 Total protein g/dL 6.9 7.0 7.2 7.2 Bilirubin, total mg/dL 0.5 0.6 0.5 0.5 Alkaline phosphatase U/L 71 65 59 62 AST/SGOT U/L 35 35 40 35 ALT/SGPT U/L 25 27 22 24 GFR estimate mL/min/1.73m2 40.4 (L) 40.4 (L) 43.4 (L) 43.4 (L) ? Surveys/Consents/Other Discussions Stefani Hinton RN, DAVID, MA, OCN CC: FAX Beto Anne MD Electronically signed by Mary Jane Ko RN, DAVID, DENG, OCTherese 02/17/2024 13:05 CDT * Med Onc Follow-up Note Patient Name: KUMAR MALONE Date Of : 1945 Today's Provider:?Gio Lopez MD Date of Service:?01/27/2024 Attending Physician:?Gio Lopez (Hematology/Oncology) Referring Provider: Michael Arguelles MD (Urology) HEMATOLOGY/ MEDICAL ONCOLOGY FOLLOW UP VISIT Reason for Visit Oligometastatic renal cell carcinoma Assessment 1.?Oligometastatic clear cell renal cell carcinoma -Has been on first-line systemic therapy in the form of Keytruda and Lenvima since early January 2022 -CT CAP 04/10/22 showed a good response to treatment.? Primary tumor in the?kidney was smaller.? The biopsy-proven lung metastases were also?smaller.? The?mildly enlarged portacavallymph node which may or may not be related to?his renal cell carcinoma was stable in size -?Underwent cytoreductive nephrectomy on June 16, 2022. Surgical pathology showed grade 3 clear-cell renal cell carcinoma measuring 9.5 cm in the greatest dimension with invasion into the perinephric in the high lower adipose tissue. Surgical resection margins were negative. -Restarted Keytruda and Lenvima in mid to late?June after surgery. ?Tolerating relativelywell - Treatment paused for a month due to worsening Cr.? Workup by nephrology negative - Restarted Keytruda and Lenvima with stable Cr so far. - PET/CT from 09/2022?showed?enlargement of?the 2 lung metastases?compared to the previous scan?from March 2022.?The portacaval lymph node?is still very small, and?actually has lower?FDG uptake (now SUV max of 2.8) compared to last PET scan from December 2021.? This remains indeterminate. -Unclear if this is?real progression?on first-line therapy?or progression due to?interruption of treatment. ?Since the last?CT scan from March 2022,?Lenvima was held from?late April?until?early June?due to diarrhea and surgery.? Keytruda was?interrupted due to surgery.? Treatment was interrupted again?in late July?due to rising creatinine, which has now stabilized - Discussed 2nd line treatment options. ?Patient decided to stay on first- line therapy in the form of Keytruda and Lenvima, while addressing the oligometastatic lung metastases with either SBRT orsurgery. ?He also agreed to increase Lenvima dosage to 14 mg daily -He met with radiation oncology and surgery. ?Decided to pursue SBRT - PET/CT from?February 01, 2023 showed?expected response?in the?lung metastases treated with?SBRT. ?The periportal lymph node is no longer hypermetabolic.? There is a new?tiny hypermetabolic?lesion in the right humeral head s/p SBRT. - PET/CT from 04/28/2023 showed no new disease.? The 2 lung mets and possible humeral?head met?that have been radiated?have decreased further?in FDG uptake, consistent with response to radiation - PET/CT from 07/2023 negative -?PET/CT from October 2023 showed development of an isolated soft tissue nodule in the right internal mammary/intercostal region measuring 5 mm suspicious for isolated metastasis. - Patient did not wish to switch systemic therapy.? He underwent radiation therapy targeting theisolated chest wall metastasis?in mid November 2023 - Still tolerating treatment well. 2. Hypothyroidism - Started levothyroxine 05/02/22, now on 100 mcg daily - TSH from 3 weeks ago WNL.? TSH from today pending 3.?Acute kidney injury -Baseline creatinine was in the 1.1-1.2 range.? Went up to 1.7-1.8 range after nephrectomy.? Then went up to 2.3. - saw nephrology.? Workup negative - Cr back to baseline in 1.6-1.7 range - Unlikely to be immune-mediated nephritis due to Keytruda or Lenvima induced nephropathy 4. Humeral head met - s/p Rad rx on 02/26/[address] Sahu 5.? 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 ?Continue pembrolizumab and Lenvima 2.? Continue Keytruda 200 mg every 3 weeks 3. ?Continue Lenvima 10 mg daily 4.? Plan to repeat PET/CT in 6 weeks if clinically stable?(early to mid February) 5.? Continue levothyroxine at 100 mcg daily.? TSH from today pending Advanced Care Planning Not discussed at this visit. Pain Scale on Today's Visit 0 Pain Plan on Today's Visit No pain plan indicated for today's visit Smoking Status Smoking Tobacco : Never smoker; Smokeless Tobacco : Never used smokeless tobacco; Vaping : Never vaped Depression Screening Tool Status Was not screened Reason: Patient Refused; Screening Date: 01/27/2024 History of Present Illness This is a very pleasant?78-year-old gentleman?who underwent a CT scan of the abdomen and pelvis with contrast?December 01, 2021 for evaluation of abdominal pain, and was found to have acute diverticulitis of the sigmoid colon, without any evidence of perforation. ?He was incidentally found to have a heterogenous?9.8 cm mass in the right kidney, likely representing renal cell carcinoma.? There were also?indeterminate liver lesions.? He subsequently underwent an MRI of the abdomen with and without contrast on December 25, 2021, which showed?a 10 cm superior right renal mass,likely renal cell carcinoma, with no local invasion or metastatic?disease?evident.? There were flash filling?hemangiomas measuring up to 10 mm?in the lateral aspect of segment V.? There was also a 5 mm?liver cyst?in segment II.?CT of the chest performed?on December 25, 2021?showed?2 suspicious lung lesions measuring 1.4 cm and 1.2 cm within the right upper lobe and right lower lobe.? Malignancy cannot be ruled out.? In addition, he was found to have subtle tiny?foci of decreased?density?within the T1 vertebral body and manubrium,?possiblyrelated to osteoporosis, although metastatic disease cannot be excluded. He subsequently underwent a PET/CT?which showed findings suspicious?for a right-sided?renal cell carcinoma with?metastases involving a portacaval lymph node?and?nodule within the right lower and right upper lobes.? CT-guided?lung biopsy?confirmed?metastatic malignancy,but there was not enough tissue for?immunostains Repeat?biopsy of lung nodule was positive for renal cell carcinoma The patient started?Keytruda/Lenvima in the first-line setting on January 22, 2022 CT CAP 04/10/22 showed a good response to treatment so far. ?Primary tumor in the kidney is smaller. ?The biopsy-proven lung metastases are also smaller. ?The mildly enlarged portacaval lymph node which may or may not be related to his renal cell carcinoma is stable in size The patient underwent cytoreductive nephrectomy on?June 16, 2022. 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 ?Surgical resection marginswere negative. Restarted Keytruda and?Lenvima after surgery. Treatment was interrupted for a month in July-August due to rise in Cr?initially thought to be medication induced, but LANETTE resolved quickly and Cr has been stable in baseline 1.7-1.8 range after restarting treatment PET/CT from 09/2022 showed enlargement of the 2 lung metastases compared to the previous scan from March 2022. ?The portacaval lymph node is still very small, and actually has lower FDG uptake (now SUV max of 2.8) compared to last PET scan from December 2021. ?This remains indeterminate.? Unclear if this is real progression on first-line therapy or progression due to interruption of treatment. ?Since the last CT scan from March 2022, Lenvima was held from late April until early June due to diarrhea and surgery. ?Keytruda was interrupted due to surgery. ?Treatment was interrupted again in late July due to rising creatinine, which has now stabilized Discussed 2nd line treatment options. ?Patient decided to stay on first-line therapy in the formof Keytruda and Lenvima for now, while addressing the oligometastatic lung metastases with either SBRT or surgery. ?He also agreed to increased Lenvima dosage to 14 mg daily -He met with radiation oncology and surgery. ?Decided to pursue SBRT. PET/CT from February 01, 2023 showed expected response in the lung metastases treated with SBRT. ?The periportal lymph node is no longer hypermetabolic. ?There is a new tiny hypermetabolic lesion in the right humeral head. ?The patient reports no recent trauma to this area, so I think it is likely a small metastasis. ?He currently has no pain, and range of motion is intact.? This was treated with SBRT 02/26/2023 PET/CT from 04/28/2023 showed no new disease. ?The 2 lung mets and possible humeral head met thathave been radiated have decreased further in FDG uptake, consistent with response to radiation PET/CT from 07/2023 negative PET/CT from October 2023 showed development of an isolated soft tissue nodule in the right internal mammary/intercostal region measuring 5 mm?suspicious for isolated metastasis.?We decided to continue with pembrolizumab/Lenvima?and refer the patient to radiation oncology to consider SBRT for the isolated metastasis The patient underwent?SBRT for isolated?chest wall metastasis?in mid November 2023 Interval History The patient returns to clinic today for a follow-up visit. ?He continues to tolerate Keytruda and Lenvima relatively well.? No significant nausea, vomiting,?or diarrhea. ?He reports some mild to moderate fatigue which is stable. ?Appetite is good.? No new bone pain or focal neurologic symptoms. Review of Systems Remaining 14 point comprehensive review of systems within normal limits. NCCN Distress Thermometer and Problem List were collected and documented in the patient chart.? Remarkable symptoms and concerns were discussed with the patient.? Any additional follow-up is indicated in the plan. Past Medical and Surgical History Hypertension BPH Atrial fibrillation, rate controlled, not on anticoagulation?due to previous GI bleeding Type 2 diabetes, on glipizide Current Medications Medication List Name Date Prochlorperazine Oral 01/21/2022 Levothyroxine 12/02/2023 Tamsulosin Oral 12/31/2021 Diltiazem Oral 01/01/2022 Metoprolol Oral (Tartrate) 02/12/2022 Acetaminophen Oral 12/31/2021 Miralax (Polyethylene Glycol Oral Powder ) 07/09/2022 Lenvatinib Oral 05/24/2023 Omeprazole Oral Delayed Release Capsule 12/24/2022 Allergies Sulfamide and metformin Family History Unremarkable. ?Multiple first-degree and?second-degree family members with prostate cancer Social History Never smoker. ?No significant alcohol use.? Lives with in?[place].?He was in the [employer]?and served in [employer].? They traveled to?[facility]?for the winter months. Vital Signs Blood pressure: 126/78, Pulse: 61, Temperature: 96.9 F, Respirations: 16, O2 sat: 98%, Pain Scale: 0, Height: 68 in, Weight: 168 lb, BSA: 1.9, BMI: 25.54 kg/m2 Covid-19 vaccine (Pfizer) (01/01/2022); Covid-19 vaccine (Pfizer) (05/21/2022); Covid-19 vaccine (Pfizer) (01/01/2022); Covid-19 vaccine (Pfizer) (09/02/2023), Patient declined/rejected; Covid-19 vaccine (Pfizer) (01/01/2022); Flu vaccine - Adult (09/02/2023), Patient declined/rejected; Flu vaccine- Adult (04/15/2022); Flu vaccine - Adult (04/08/2023) Performance Status ECOG or Karnofsky ECO Symptoms, but ambulatory. Restricted in physically strenuous activity, but ambulatory and able to carry out work of a light or sedentary nature (e.g., light housework, office work). (Date: 02/12/2022) Karnofsky: 90% Able to carry on normal activity; minor signs or symptoms of disease. (Date: 01/06/2024) Physical Exam General: Awake, alert, and oriented. ?ECOG PS 0 Skin: ?No bruising or skin rash noted. Eyes: ? Sclera anicteric. ? Mouth: ?Moist mucous membranes without ulceration Lymphatics: No palpable lymphadenopathy Abdomen: ?Soft, nontender, nondistended. ? Extremities: ?Well perfused, no edema. Genetics/Molecular/Biomarkers * Renal cell carcinoma (disorder) ( Stage Date: Unknown, Stage IV RCC IMDC Risk Group: Favorable (no risk factors); Histopathologic Type: Clear cell renal carcinoma;) Additional Labs, Imaging, and Other Studies Lab Results CBC Lab Results 01/27/2024 01/06/2024 12/16/2023 12/02/2023 11/26/19 24 11/04/2023 CBC WBC x 10^3/uL 4.5 5.1 4.6 5.1 4.8 RBC x 10^6/uL 3.98 (L) 3.92 (L) 4.03 (L) 4.16 (L) 3.78 (L) NRBC % /100 wbc 0.0 0.0 0.0 0.0 0.0 HGB g/dL 13.1 13.1 13.4 13.6 12.3 (L) HCT % 39.5 39.1 40.1 41.5 36.8 (L) MCV fL 99.2 99.7 99.5 99.8 97.4 MCH pg 32.9 33.4 33.3 32.7 32.5 MCHC g/dL 33.2 33.5 33.4 32.8 33.4 RDW % 12.90 13 12.60 12.70 12.60 PLT x 10^3/uL 155 139 147 153 156 MPV fL 10.3 9.7 10.5 10.4 10.1 Tatyana % 64.7 67.4 68.2 55.7 56.6 LY % 23.4 21.3 19.7 32.5 32.4 MO % 9.8 8.7 9.0 9.3 8.7 EO % 1.3 1.6 2.2 1.9 1.7 IG % 0.4 0.6 (H) 0.2 0.4 0.4 Tatyana # (ANC) x 10^3/uL 2.9 3.4 3.1 2.9 2.7 BA % 0.4 0.4 0.7 0.2 0.2 MO # x 10^3/uL 0.4 0.4 0.4 0.5 0.4 EO # x 10^3/uL 0.1 0.1 0.1 0.1 0.1 BA # x 10^3/uL 0.0 0.0 0.0 0.0 0.0 IG # x 10^3/uL 0.02 0.03 0.01 0.02 0.02 LY # x 10^3/uL 1.1 1.1 0.9 1.7 1.6 Chemistries Lab Results 01/27/2024 01/06/2024 12/16/2023 12/02/2023 11/26/1911/04/2023 Chemistries Glucose mg/dL 98 131 (H) 98 132 (H) BUN mg/dL 27.0 (H) 30.0 (H) 20.0 25.0 (H) Creatinine mg/dL 1.70 (H) 1.60 (H) 1.60 (H) 1.60 (H) Sodium mmol/L 138 137 138 136 (L) Potassium mmol/L 5.0 4.5 5.7 Critica l chemistry value obtained. (HH) 4.5 Potassium, iSTAT mmol/L 4.9 Chloride mmol/L 109 (H) 109 (H) 103 108 (H) Sodium, iSTAT mmol/L 135 (L) Chloride, iSTAT mmol/L 104 CO2 mmol/L 22 22 25 23 Calcium mg/dL 8.7 8.8 9.4 8.5 Albumin g/dL 3.9 4.2 4.1 3.9 Total protein g/dL 7.0 7.2 7.2 6.7 Bilirubin, total mg/dL 0.6 0.5 0.5 0.5 Alkaline phosphatase U/L 65 59 62 68 AST/SGOT U/L 35 40 35 39 ALT/SGPT U/L 27 22 24 26 GFR estimate mL/min/1.73m2 40.4 (L) 43.4 (L) 43.4 (L) 43.5 (L) ? Surveys/Consents/Other Discussions Gio Lopez MD CC: Ulises Dowell MD FAX Beto Arguelles MD (Referring) MD Jess Valentin MD Electronically signed by Gio Lopez MD 01/27/2024 12:00 CDT * Med Onc Follow-up Note Patient Name: KUMAR MALONE Date Of : 1945 Today's Provider:?Mary Jane Ko RN, [employer]S TECHNICIAN, MA, OCN Date of Service:?01/06/2024 Attending Physician:?Gio Lopez (Hematology/Oncology) Referring Provider: Michael Arguelles MD (Urology) HEMATOLOGY/ MEDICAL ONCOLOGY FOLLOW UP VISIT Reason for Visit Oligometastatic renal cell carcinoma Assessment 1.?Oligometastatic clear cell renal cell carcinoma -Has been on first-line systemic therapy in the form of Keytruda and Lenvima since early January 2022 -CT CAP 04/10/22 showed a good response to treatment.? Primary tumor in the?kidney was smaller.? The biopsy-proven lung metastases were also?smaller.? The?mildly enlarged portacavallymph node which may or may not be related to?his renal cell carcinoma was stable in size -?Underwent cytoreductive nephrectomy on June 16, 2022. Surgical pathology showed grade 3 clear-cell renal cell carcinoma measuring 9.5 cm in the greatest dimension with invasion into the perinephric in the high lower adipose tissue. Surgical resection margins were negative. -Restarted Keytruda and Lenvima in mid to late?June after surgery. ?Tolerating relativelywell - Treatment paused for a month due to worsening Cr.? Workup by nephrology negative - Restarted Keytruda and Lenvima with stable Cr so far. - PET/CT from 09/2022?showed?enlargement of?the 2 lung metastases?compared to the previous scan?from March 2022.?The portacaval lymph node?is still very small, and?actually has lower?FDG uptake (now SUV max of 2.8) compared to last PET scan from December 2021.? This remains indeterminate. -Unclear if this is?real progression?on first-line therapy?or progression due to?interruption of treatment. ?Since the last?CT scan from March 2022,?Lenvima was held from?late April?until?early June?due to diarrhea and surgery.? Keytruda was?interrupted due to surgery.? Treatment was interrupted again?in late July?due to rising creatinine, which has now stabilized - Discussed 2nd line treatment options. ?Patient decided to stay on first- line therapy in the form of Keytruda and Lenvima, while addressing the oligometastatic lung metastases with either SBRT orsurgery. ?He also agreed to increase Lenvima dosage to 14 mg daily -He met with radiation oncology and surgery. ?Decided to pursue SBRT - Tolerating the increased dosage of Lenvima relatively well - PET/CT from?February 01, 2023 showed?expected response?in the?lung metastases treated with?SBRT. ?The periportal lymph node is no longer hypermetabolic.? There is a new?tiny hypermetabolic?lesion in the right humeral head s/p SBRT. - Tolerating treatment relatively well especially on lower dosage of Lenvima - PET/CT from 04/28/2023 showed no new disease.? The 2 lung mets and possible humeral?head met?that have been radiated?have decreased further?in FDG uptake, consistent with response to radiation - PET/CT from 07/2023 negative -?PET/CT from October 2023 showed development of an isolated soft tissue nodule in the right internal mammary/intercostal region measuring 5 mm suspicious for isolated metastasis. - Patient does not wish to switch systemic therapy.? He will be undergoing radiation therapy targeting the isolated chest wall metastasis?next week 2. Hypothyroidism - Started levothyroxine 05/02/22, now on 100 mcg daily - TSH from 3 weeks ago WNL.? TSH from today pending 3.?Acute kidney injury -Baseline creatinine was in the 1.1-1.2 range.? Went up to 1.7-1.8 range after nephrectomy.? Then went up to 2.3. - saw nephrology.? Workup negative - Cr back to baseline in 1.6-1.7 range - Unlikely to be immune-mediated nephritis due to Keytruda or Lenvima induced nephropathy 4. Humeral head met - s/p Rad rx on 02/26/[address] Sahu 5.? 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 ?Continue pembrolizumab and Lenvima 2.? Continue Keytruda 200 mg every 3 weeks 3. ?Continue Lenvima 10 mg daily 5.? Plan to repeat PET/CT in 3 months if clinically stable?(late January?early February2024) 6.? Continue levothyroxine at 100 mcg daily.? TSH from today pending Advanced Care Planning Not discussed at this visit. Pain Scale on Today's Visit 2 Pain Plan on Today's Visit No pain plan indicated for today's visit Smoking Status Smoking Tobacco : Never smoker; Smokeless Tobacco : Never used smokeless tobacco; Vaping : Never vaped Depression Screening Tool Status Was not screened Reason: Patient Refused; Screening Date: 11/26/2023 History of Present Illness This is a very pleasant?78-year-old gentleman?who underwent a CT scan of the abdomen and pelvis with contrast?December 01, 2021 for evaluation of abdominal pain, and was found to have acute diverticulitis of the sigmoid colon, without any evidence of perforation. ?He was incidentally found to have a heterogenous?9.8 cm mass in the right kidney, likely representing renal cell carcinoma.? There were also?indeterminate liver lesions.? He subsequently underwent an MRI of the abdomen with and without contrast on December 25, 2021, which showed?a 10 cm superior right renal mass,likely renal cell carcinoma, with no local invasion or metastatic?disease?evident.? There were flash filling?hemangiomas measuring up to 10 mm?in the lateral aspect of segment V.? There was also a 5 mm?liver cyst?in segment II.?CT of the chest performed?on December 25, 2021?showed?2 suspicious lung lesions measuring 1.4 cm and 1.2 cm within the right upper lobe and right lower lobe.? Malignancy cannot be ruled out.? In addition, he was found to have subtle tiny?foci of decreased?density?within the T1 vertebral body and manubrium,?possiblyrelated to osteoporosis, although metastatic disease cannot be excluded. He subsequently underwent a PET/CT?which showed findings suspicious?for a right-sided?renal cell carcinoma with?metastases involving a portacaval lymph node?and?nodule within the right lower and right upper lobes.? CT-guided?lung biopsy?confirmed?metastatic malignancy,but there was not enough tissue for?immunostains Repeat?biopsy of lung nodule was positive for renal cell carcinoma The patient started?Keytruda/Lenvima in the first-line setting on January 22, 2022 CT CAP 04/10/22 showed a good response to treatment so far. ?Primary tumor in the kidney is smaller. ?The biopsy-proven lung metastases are also smaller. ?The mildly enlarged portacaval lymph node which may or may not be related to his renal cell carcinoma is stable in size The patient underwent cytoreductive nephrectomy on?June 16, 2022. 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 ?Surgical resection marginswere negative. Restarted Keytruda and?Lenvima after surgery. Treatment was interrupted for a month in July-August due to rise in Cr?initially thought to be medication induced, but LANETTE resolved quickly and Cr has been stable in baseline 1.7-1.8 range after restarting treatment PET/CT from 09/2022 showed enlargement of the 2 lung metastases compared to the previous scan from March 2022. ?The portacaval lymph node is still very small, and actually has lower FDG uptake (now SUV max of 2.8) compared to last PET scan from December 2021. ?This remains indeterminate.? Unclear if this is real progression on first-line therapy or progression due to interruption of treatment. ?Since the last CT scan from March 2022, Lenvima was held from late April until early June due to diarrhea and surgery. ?Keytruda was interrupted due to surgery. ?Treatment was interrupted again in late July due to rising creatinine, which has now stabilized Discussed 2nd line treatment options. ?Patient decided to stay on first-line therapy in the formof Keytruda and Lenvima for now, while addressing the oligometastatic lung metastases with either SBRT or surgery. ?He also agreed to increased Lenvima dosage to 14 mg daily -He met with radiation oncology and surgery. ?Decided to pursue SBRT. PET/CT from February 01, 2023 showed expected response in the lung metastases treated with SBRT. ?The periportal lymph node is no longer hypermetabolic. ?There is a new tiny hypermetabolic lesion in the right humeral head. ?The patient reports no recent trauma to this area, so I think it is likely a small metastasis. ?He currently has no pain, and range of motion is intact.? This was treated with SBRT 02/26/2023 PET/CT from 04/28/2023 showed no new disease. ?The 2 lung mets and possible humeral head met thathave been radiated have decreased further in FDG uptake, consistent with response to radiation PET/CT from 07/2023 negative PET/CT from October 2023 showed development of an isolated soft tissue nodule in the right internal mammary/intercostal region measuring 5 mm?suspicious for isolated metastasis.?We decided to continue with pembrolizumab/Lenvima?and refer the patient to radiation oncology to consider SBRT for the isolated metastasis Interval History Kumar is in the office at today with his .? Clinically he has been feeling quite well. ?He denies any symptoms to suggest toxicity related to immunotherapy.? Specifically no?shortnessof breath or cough. ?He denies diarrhea?or profound fatigue. He does describe an episode in which he felt his blood pressure sugars dropped. ?He?states hefelt shaky and somewhat sweaty. ?After he ate his symptoms improved. ?He has had no?recurrent episodes.? He does have a glucometer at home but did not check his blood sugars?and we discussed the importance of monitoring this if recurrent symptoms. For bowels he uses Benefiber regularly. ?Energy level remains stable.? He denies any fevers or shaking chills. ?No new bony pain. ?Tolerated recent radiation therapy well. Review of Systems Remaining 14 point comprehensive review of systems within normal limits. NCCN Distress Thermometer and Problem List were collected and documented in the patient chart.? Remarkable symptoms and concerns were discussed with the patient.? Any additional follow-up is indicated in the plan. Past Medical and Surgical History Hypertension BPH Atrial fibrillation, rate controlled, not on anticoagulation?due to previous GI bleeding Type 2 diabetes, on glipizide Current Medications Medication List Name Date Miralax (Polyethylene Glycol Oral Powder ) 07/09/2022 Tamsulosin Oral 12/31/2021 Lenvatinib Oral 05/24/2023 Metoprolol Oral (Tartrate) 02/12/2022 Diltiazem Oral 01/01/2022 Acetaminophen Oral 12/31/2021 Prochlorperazine Oral 01/21/2022 Levothyroxine 12/02/2023 Omeprazole Oral Delayed Release Capsule 12/24/2022 Allergies Sulfamide and metformin Family History Unremarkable. ?Multiple first-degree and?second-degree family members with prostate cancer Social History Never smoker. ?No significant alcohol use.? Lives with in?[place].?He was in the [employer]?and served in [place].? They traveled to?[facility]?for the winter months. Vital Signs Blood pressure: 136/72, Pulse: 58, Temperature: 96.2 F, Respirations: 16, O2 sat: 97%, Pain Scale: 2, Height: 68 in, Weight: 166.8 lb, BSA: 1.89, BMI: 25.36 kg/m2 Covid-19 vaccine (Pfizer) (01/01/2022); Covid-19 vaccine (Pfizer) (01/01/2022); Covid-19 vaccine (Pfizer) (09/02/2023), Patient declined/rejected; Covid-19 vaccine (Pfizer) (01/01/2022); Covid-19 vaccine (Pfizer) (05/21/2022); Flu vaccine - Adult (09/02/2023), Patient declined/rejected; Flu vaccine- Adult (04/08/2023); Flu vaccine - Adult (04/15/2022) Performance Status ECOG or Karnofsky ECO Symptoms, but ambulatory. Restricted in physically strenuous activity, but ambulatory and able to carry out work of a light or sedentary nature (e.g., light housework, office work). (Date: 02/12/2022) Karnofsky: 90% Able to carry on normal activity; minor signs or symptoms of disease. (Date: 01/06/2024) Physical Exam GENERAL:?Alert and oriented x3. ?In no apparent distress. ?He is seated comfortably and his moods appropriate.? HEENT:?Pupils equal round and reactive to light. ?Sclera nonicteric. ?Conjunctive are pink.? Oropharynx is pink and moist no lesions or exudate LYMPH:?No palpable cervical supraclavicular axillary lymphadenopathy RESP:?No dyspnea with conversation lungs are clear to auscultation.?No wheezing rales or?on exam. ?O2 saturations are?within normal limits. CARDIAC:?Regular rate and rhythm no ectopic beats or murmurs noted. ABDOMEN:?Soft and nontender?no guarding or rebound EXT:?Lower extremities without any edema upper extremities without edema cyanosis or clubbing SKIN:?Warm and dry no rashes or petechiae. NEURO:?Nonfocal gait intact Genetics/Molecular/Biomarkers * Renal cell carcinoma (disorder) ( Stage Date: Unknown, Stage IV RCC IMDC Risk Group: Favorable (no risk factors); Histopathologic Type: Clear cell renal carcinoma;) Additional Labs, Imaging, and Other Studies Lab Results CBC Lab Results 01/06/2024 12/16/2023 12/02/2023 11/26/2023 11/04/1910/14/2023 CBC WBC x 10^3/uL 5.1 4.6 5.1 4.8 5.4 RBC x 10^6/uL 3.92 (L) 4.03 (L) 4.16 (L) 3.78 (L) 3.93 (L) NRBC % /100 wbc 0.0 0.0 0.0 0.0 0.0 HGB g/dL 13.1 13.4 13.6 12.3 (L) 12.9 HCT % 39.1 40.1 41.5 36.8 (L) 38.2 (L) MCV fL 99.7 99.5 99.8 97.4 97.2 MCH pg 33.4 33.3 32.7 32.5 32.8 MCHC g/dL 33.5 33.4 32.8 33.4 33.8 RDW % 13 12.60 12.70 12.60 12.80 PLT x 10^3/uL 139 147 153 156 161 MPV fL 9.7 10.5 10.4 10.1 10.3 Tatyana % 67.4 68.2 55.7 56.6 61.8 LY % 21.3 19.7 32.5 32.4 28.0 MO % 8.7 9.0 9.3 8.7 7.4 EO % 1.6 2.2 1.9 1.7 2.4 IG % 0.6 (H) 0.2 0.4 0.4 0.2 Tatyana # (ANC) x 10^3/uL 3.4 3.1 2.9 2.7 3.3 BA % 0.4 0.7 0.2 0.2 0.2 MO # x 10^3/uL 0.4 0.4 0.5 0.4 0.4 EO # x 10^3/uL 0.1 0.1 0.1 0.1 0.1 BA # x 10^3/uL 0.0 0.0 0.0 0.0 0.0 IG # x 10^3/uL 0.03 0.01 0.02 0.02 0.01 LY # x 10^3/uL 1.1 0.9 1.7 1.6 1.5 Chemistries Lab Results 01/06/2024 12/16/2023 12/02/2023 11/26/2023 11/04/1910/14/2023 Chemistries Glucose mg/dL 131 (H) 98 132 (H) 137 (H) BUN mg/dL 30.0 (H) 20.0 25.0 (H) 31.0 (H) Creatinine mg/dL 1.60 (H) 1.60 (H) 1.60 (H) 1.60 (H) Sodium mmol/L 137 138 136 (L) 136 (L) Potassium mmol/L 4.5 5.7 Critical chemistry value obtained. (HH) 4.5 5.0 Potassium, iSTAT mmol/L 4.9 Chloride mmol/L 109 (H) 103 108 (H) 110 (H) Sodium, iSTAT mmol/L 135 (L) Chloride, iSTAT mmol/L 104 CO2 mmol/L 22 25 23 17 (L) Calcium mg/dL 8.8 9.4 8.5 8.0 (L) Albumin g/dL 4.2 4.1 3.9 4.1 Total protein g/dL 7.2 7.2 6.7 7.0 Bilirubin, total mg/dL 0.5 0.5 0.5 0.5 Alkaline phosphatase U/L 59 62 68 69 AST/SGOT U/L 40 35 39 32 ALT/SGPT U/L 22 24 26 22 GFR estimate mL/min/1.73m2 43.4 (L) 43.4 (L) 43.5 (L) 43.5 (L) ? Surveys/Consents/Other Discussions Stefani Hinton RN, DAVID, DENG, OCN CC: FAX Beto Anne MD Electronically signed by Mary Jane Ko RN, DAVID, DENG, OCN 01/06/2024 11:58 CDT
--- OUTSIDE RECORDS SUMMARY | 2024-12-31 11:38 | XMS_ITS ---
Author Name Interface, [id number] lity Address [place] [address] [facility] Address [place] [address] Allergies and Adverse Reactions Medication/Group Name Reaction Severity Date Sulfamide Hives 06/03/2023 Plan Date Type Value 03/05/2025 APPOINTMENT Farray/ov/jg 08/03/2024 APPOINTMENT FARRAY/ INF PEMB ROLIZUMAB/JG 08/02/2024 APPOINTMENT Farray/lab/ov/jg 08/02/2024 APPOINTMENT Farray/lab/ov/jg 08/02/2024 LABORDER CMP 08/02/2024 LABORDER CBC w/auto diff with reflex Reason for Visit FARRAY/ INF PEMBROLIZUMAB/JG Encounters Date Name 08/02/2024 Renal cancer Diagnostic Results Date Type Test Units Lower Limit Upper Limit Result Flag Comments Status Ordered By Specimen Source Lab Address 08/02 CMP Sodiu m mmol/L 136.0 145.0 141 FINAL Arnaud Abad-B [facility] n [address] [address] CLIA ID# [id number] 08/02 CMP Potas sium mmol/L 3.5 5.1 3.9 FINAL Arnaud Abad-B [facility] Serum [facility] n [address] [address] CLIA ID# [id number] 08/02 CMP Chlor viola mmol/L 97.0 107.0 104 FINAL Arnaud Abad-B [facility] Serum [facility] n [address] [address] CLIA ID# [id number] 08/02 CMP CO2 mmol/L 21.0 32.0 27.7 FINAL Arnaud douglasses Serum [facility] n [address] [address] CLIA ID# [id number] 08/02 CMP Gluco se mg/dL 74.0 106.0 155 High FINAL Arnaud joiner Serum [facility] n [address] [address] CLIA ID# [id number] 08/02 CMP BUN mg/dL 7.0 18.0 22 High FINAL Arnaud douglass Serum [facility] n [address] [address] CLIA ID# [id number] 08/02 CMP Creat inine , mg/dL mg/dL 0.55 1.3 1.66 High FINAL Arnaud Burt [facility] Serum [facility] n [address] [address] CLIA ID# [id number] 08/02 CMP GFR estim ate mil/mi n/1.73 m2 41 Low Result based on the eGFR 2020 calculati on.60-89 mL/min/1. 73m^2 without kidney damage may be normal.60 -89 mL/min/1. 73m^2 for 3 months or more, along with kidney damage, may indicate early kidney disease.C alculatio n modified to the 2020 formula effective 08/22/22. FINAL Arnaud Abad-B rafat Serum [facility] n [address] [address] CLIA ID# [id number] 08/02 CMP BUN/C reati nine ratio 6.0 25.0 13.3 FINAL Arnaud douglass [facility] n [address] [address] CLIA ID# [id number] 08/02 CMP Calci um mg/dL 8.5 10.1 8.3 Low FINAL Arnaud Leblancy-B erges Serum [facility] n [address] [address] CLIA ID# [id number] 08/02 CMP Album in g/dL 3.4 5.0 2.9 Low FINAL Arnaud Abad-B erges Serum [facility] n [address] [address] CLIA ID# [id number] 08/02 CMP Total prote in g/dL 6.4 8.2 6.1 Low FINAL Arnaud Abad-B erges Serum [facility] n [address] [address] CLIA ID# [id number] 39 08/02 CMP Globu ciro g/dL 2.2 4.2 3.2 FINAL Arnaud Abad-B erges Serum [facility] n [address] [address] CLIA ID# [id number] 08/02 CMP A/G ratio 0.8 2.0 0.9 FINAL Arnaud Abad-B erges Serum [facility] n [address] [address] CLIA ID# [id number] 08/02 CMP Bilir ubin, total mg/dL 0.2 1.0 0.4 FINAL Arnaud Abad-B erges Serum [facility] n [address] [address] CLIA ID# [id number] 39 08/02 CMP Alkal ine phosp hatas e U/L 46.0 116.0 137 High FINAL Arnaud Abad-B erges Serum [facility] n [address] [address] CLIA ID# [id number] 08/02 CMP AST/S GOT U/L 15.0 37.0 35 FINAL Arnaud joiner Serum [facility] n [address] [address] CLIA ID# [id number] 39 08/02 CMP ALT/S GPT U/L 16.0 63.0 35 FINAL Arnaud joiner Serum [facility] n [address] [address] CLIA ID# [id number] 08/02 CBC w/aut o diff with refle x WBC 10^3/u L 4.8 10.8 5.3 FINAL Arnaud joiner Whole Blood [facility] [place] [address] [address] CLIA ID# [id number] 08/02 CBC w/aut o diff with refle x RBC 10^6/u L 4.7 6.1 3.96 Low FINAL Arnaud joiner Whole Blood [facility] [place] [address] [address] CLIA ID# [id number] 10 08/02 CBC w/aut o diff with refle x HGB g/dL 14.0 18.0 13.2 Low FINAL Arnaud joiner Whole Blood [facility] [place] [address] [address] CLIA ID# [id number] 10 08/02 CBC w/aut o diff with refle x HCT % 40.0 50.0 40.0 FINAL Arnaud joiner Whole Blood [facility] [place] [address] [address] CLIA ID# [id number] 10 08/02 CBC w/aut o diff with refle x MCV fL 80.0 94.0 101.0 High FINAL Arnaud joiner Whole Blood [facility] [place] [address] [address] CLIA ID# [id number] 10 08/02 CBC w/aut o diff with refle x MCH pg 27.0 31.0 33.3 High FINAL Arnaud joiner Whole Blood [facility] [place] [address] [address] CLIA ID# [id number] 10 08/02 CBC w/aut o diff with refle x MCHC g/dL 33.0 37.0 33.0 FINAL Arnaud joiner Whole Blood [facility] [place] [address] [address] CLIA ID# [id number] 10 08/02 CBC w/aut o diff with refle x PLT 10^3/u L 130.0 400.0 167 FINAL Arnaud joiner Whole Blood [facility] [place] [address] [address] CLIA ID# [id number] 10 08/02 CBC w/aut o diff with refle x MPV fL 9.4 12.4 10.1 FINAL Arnaud joiner Whole Blood [facility] [place] [address] [address] CLIA ID# [id number] 10 08/02 CBC w/aut o diff with refle x RDW % 10.5 14.5 13.3 FINAL Arnaud joiner Whole Blood [facility] [place] [address] [address] CLIA ID# [id number] 10 08/02 CBC w/aut o diff with refle x Tatyana % % 40.0 77.0 62.0 FINAL Arnaud joiner Whole Blood [facility] [place] [address] [address] CLIA ID# [id number] 10 08/02 CBC w/aut o diff with refle x Tatyana # (ANC) 10^3/u L 1.5 6.5 3.29 FINAL Arnaud joiner Whole Blood [facility] [place] [address] [address] CLIA ID# [id number] 10 08/02 CBC w/aut o diff with refle x IG % % 0.0 0.5 0.4 FINAL Arnaud joiner Whole Blood [facility] [place] [address] [address] CLIA ID# [id number] 10 08/02 CBC w/aut o diff with refle x IG # 10^3/u L 0.0 0.03 0.02 FINAL Arnaud joiner Whole Blood [facility] [place] [address] [address] CLIA ID# [id number] 10 08/02 CBC w/aut o diff with refle x LY % % 15.0 41.0 28.2 FINAL Arnaud joiner Whole Blood [facility] [place] [address] [address] CLIA ID# [id number] 10 08/02 CBC w/aut o diff with refle x LY # 10^3/u L 1.2 3.4 1.50 FINAL Arnaud joiner Whole Blood [facility] [place] [address] [address] CLIA ID# [id number] 10 08/02 CBC w/aut o diff with refle x MO % % 3.0 11.0 7.5 FINAL Arnaud joiner Whole Blood [facility] [place] [address] [address] CLIA ID# [id number] 10 08/02 CBC w/aut o diff with refle x MO # 10^3/u L 0.0 1.0 0.40 FINAL Arnaud joiner Whole Blood [facility] [place] [address] [address] CLIA ID# [id number] 10 08/02 CBC w/aut o diff with refle x EO % % 0.0 3.0 1.5 FINAL Arnaud joiner Whole Blood [facility] [place] [address] [address] CLIA ID# [id number] 10 08/02 CBC w/aut o diff with refle x EO # 10^3/u L 0.0 0.3 0.08 FINAL Arnaud joiner Whole Blood [facility] [place] [address] [address] CLIA ID# [id number] 10 08/02 CBC w/aut o diff with refle x BA % % 0.0 1.0 0.4 FINAL Arnaud joiner Whole Blood [facility] [place] [address] [address] CLIA ID# [id number] 10 08/02 CBC w/aut o diff with refle x BA # 10^3/u L 0.0 0.2 0.02 FINAL Arnaud joiner Whole Blood [facility] [place] [address] [address] CLIA ID# [id number] 10 08/02 CBC w/aut o diff with refle x NRBC, % % 0.0 0.2 0.0 FINAL Arnaud joiner Whole Blood [facility] [place] [address] [address] CLIA ID# [id number] 10 08/02 CBC w/aut o diff with refle x NRBC, absol comanche, x 10^3/ uL 10^3/u L 0.0 0.01 0.00 FINAL Arnaud Burt marisel Whole Blood [facility] [place] [address] [address] CLIA ID# [id number] Medications Date Name Route Dose Frequency Instructions Start Date End Date Status Valsartan Oral po qd active Lenvatinib Oral orally 10.0 mg daily active Tamsulosin Oral orally 0.4 mg daily active Irbesartan Oral orally 300.0 mg daily active Metoprolol Oral (Tartrate) orally 25.0 mg 2 times per day active Pembrolizumab IV intravenouslyP iggyback 200.0 every 3 weeks administer over 30 mins active Acetaminophen Oral orally 650.0 mg 4 times per day prn pain active Levothyroxine Oral orally 1.0 tablet daily quantity sufficient for 30 days; 3 refills active Omeprazole Oral Delayed Release Capsule orally 20.0 mg daily active Lisinopril Oral orally 20.0 mg daily active Furosemide Oral orally 1.0 tablet daily quantity sufficient for 30 days; 1 refills active Diltiazem Oral 24 hr Cap orally 1.0 capsule,ext .rel 24h degradable daily quantity sufficient for 30 days; 3 refills active 09/14 diphenhydrami ne hydrochloride 0.5 MG/ML Injectable Solution intravenously 50.0 mg Re-initiate treatment only upon physician approval. 2024 active 09/14 1 ML epinephrine 1 [...] drugs. Do not shake. 2024 active 09/14 Methylprednis olone IV intravenously [...] treatment only upon physician approval. 2024 active Hydrocortison e IV intravenously 100.0 mg Re-initiate treatment only upon physician approval. 2023 active Methylprednis olone IV intravenously 125.0 mg Re-initiate treatment only upon physician approval. 2023 active famotidine 10 MG/ML Injectable Solution intravenously 20.0 mg Re-initiate treatment only upon physician approval. 2023 active 1 ML epinephrine 1 MG/ML Injection intramuscularl y 0.3 mg once Re-initiate treatment only upon physician approval. 2023 active diphenhydrami ne hydrochloride 0.5 MG/ML Injectable Solution intravenously 50.0 mg Re-initiate treatment only upon physician approval. 2023 active 07/01 Hydrocortison e IV intravenously 100.0 mg Re-initiate treatment only upon physician approval. 2023 active 07/01 1 ML epinephrine 1 MG/ML Injection intramuscularl y 0.3 mg once Re-initiate treatment only upon physician approval. 2023 active 07/01 famotidine 10 MG/ML Injectable Solution intravenously 20.0 mg Re-initiate treatment only upon physician approval. 2023 active 07/01 Methylprednis olone IV intravenously 125.0 mg Re-initiate treatment only upon physician approval. 2023 active 07/01 diphenhydrami ne hydrochloride 0.5 MG/ML Injectable Solution intravenously 50.0 mg Re-initiate treatment only upon physician approval. 2023 active 06/10 famotidine 10 MG/ML Injectable Solution intravenously 20.0 mg Re-initiate treatment only upon physician approval. 2023 active 06/10 diphenhydrami ne hydrochloride 0.5 MG/ML Injectable Solution intravenously 50.0 mg Re-initiate treatment only upon physician approval. 2023 active 06/10 Methylprednis olone IV intravenously 125.0 mg Re-initiate treatment only upon physician approval. 2023 active 06/10 Hydrocortison e IV intravenously 100.0 mg Re-initiate treatment only upon physician approval. 2023 active 06/10 1 ML epinephrine 1 MG/ML Injection intramuscularl y 0.3 mg once Re-initiate treatment only upon physician approval. 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 Vital Signs Date Type Value 08/02/2024 Body Temperature 97.80 08/02/2024 Heart Beat 66.00 08/02/2024 Respiratory Rate 18.00 08/02/2024 Intravascular Systolic 161 08/02/2024 Intravascular Diastolic 89 08/02/2024 Pain Scale 0.00 08/02/2024 Weight 161.80 08/02/2024 Height 68.00 08/02/2024 BSA 1.87 08/02/2024 BMI 24.60 08/03/2024 Heart Beat 102.00 08/03/2024 Height 68.00 08/03/2024 Intravascular Systolic 152 08/03/2024 Intravascular Diastolic 81 08/03/2024 Pain Scale 0.00 Notes Section * HemOnc Follow Up - [facility] [place] [address] [place] [address] P: F: PATIENT: KUMAR MALONE : 1945 Date of Service: 08/02/2024 Referring Provider: MD Gio Boyd MD Chief Complaint: Follow-up on his metastatic renal cell carcinoma and toxicity management from??pembrolizumab and lenvatinib. 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 He was diagnosed with renal cell carcinoma??12/25/2021??when he was found to have a 10 cm??right renal mass??and a 1 cm right lower lobe of the lung nodule.?? CT- guided biopsy of the right lower lobe of the lung nodule 01/07/2023 revealed clear-cell renal cell carcinoma.?? The patient started??treatment with??pembrolizumab and lenvatinib January 2022,??CT chest, abdomen and pelvis 04/11/2022 showed good response to treatment??with decrease in the size of the primary tumor??and right lower lobe??of the lung metastasis,??on 06/16/2022 he underwent a cytoreductive nephrectomy with final pathology revealing a grade 3 clear-cell renal cell carcinoma measuring 9.5 cm in greatest dimension??with invasion into the perinephric??fat??and negative margins.?? He restarted Lenvima??and pembrolizumab??June 2022??which was later positive to worsening creatinine??and later resumed.?? PET CT scan 10/10/2022 showed enlargement of 2 lung metastasis compared to the previous scan from??March 2022, it was decided to continue with pembrolizumab and Lenvima as it was thought??the progression was due to??interruption in treatment, he underwent SBRT of the 2??lung metastasis??as well as 1 hypermetabolic lesion in the right humeral head.?? PET/CT scan 04/28/2023 showed no new disease,??to lung mets andpossible humeral head??met??which have been??irradiated have decrease in FDG uptake consistent withresponse to radiotherapy. The patient received pembrolizumab and lenvatinib here with us last winter and then return to [place]??where he continue with the treatment.?? A PET scan done??05/08/2024 showed a subcentimeter FDGavid soft tissue nodule in the right fifth/sixth intercostal space??suspicion for an isolated site of metastatic disease.?? He received SBRT that ended last Wednesday. He??is originally from [place] and has been receiving his??pembrolizumab infusions??with us??while he spent 5 of the winter here in the [facility].?? He is going back to [place] in about 2weeks.?? Will be having repeat imaging studies in [place].?? TSH 07/12/2024 was slightly elevated??at 5.5,??the rest of the blood work including CBC, CMP were within normal limits. 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 HEENT: ??Anicteric. ??No nasal discharge, sore throat, or neck masses. Cardiovascular: ??No palpitations, chest pain, orthopnea, dyspnea on exertion or paroxysmal nocturnal dyspnea. Respiratory: ??No cough, hemoptysis, dyspnea or sputum production. Gastrointestinal: ??No nausea, vomiting, anorexia, diarrhea, constipation, abdominal pain, hematemesis, hematochezia or melena. Genitourinary: ??No dysuria or hematuria. Neurological: ??No focal weakness, numbness, or tingling. Musculoskeletal: ??No bony pain, myalgias or loss of muscle mass. Integumentary: ??No rashes, pruritus, petechia or ecchymoses. Endocrine: ??No heat/cold intolerance or polyuria. Hematologic/Lymphatics: ??No enlarged lymph nodes, easy bruising, or gum bleeding. Vitals: Height: None Today; Weight: None Today; Blood pressure: , Pulse: , Temperature: , Respirations: , Pain Scale: Karnofsky: Not Assessed Physical Exam: GENERAL: ??The patient is in no apparent distress. SKIN: ??No rashes, petechiae or ecchymoses. HEENT: ??Anicteric. ??Pupils are equally round and reactive to light. NECK: ??Supple, no jugular venous distention. LYMPH NODES: ??No cervical, supraclavicular, axillary or inguinal lymphadenopathy. HEART: ??Regular rate and rhythm. ??Normal S1 and S2. ??No murmurs, rubs or gallops. LUNGS: ??Clear to auscultation and percussion bilaterally, no pleural rubs. ABDOMEN: ?? Soft. ??Non-tender. ??No hepatosplenomegaly or masses. EXTREMITIES: ??No edema, clubbing or cyanosis. 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 He??developed an isolated subcentimeter metastasis in the right fifth/sixth intercostal space??which was treated with SBRT. * Hypothyroidism on treatment with levothyroxine. * Hypertension. Plan: * Continue pembrolizumab 200 mg IV every 3 weeks, next dose on??08/03/2024. * Continue lenvatinib 10 mg daily. * Increase levothyroxine to 112 mcg p.o. daily. * The patient already has an appointment to follow-up with his oncologist in [place]. * Return appointment when he returns to the [facility] during the winter??in May. Procedure: . Note dictated with a voice recognition system, subject to transcriptional variance. Arnaud Magdaleno MD Send copy of note to: MD Gio Boyd MD . Electronically signed by Arnaud Magdaleno MD 08/03/2024 05:42 CDT * Nurse Note for: 03-AUG-24 [facility] Nurse Note Print Location: Unknown Date/Time Printed: 12/31/2024 11:36 ([facility]) Patient: KUMAR MALONE Sex: Male : 1945 Date of Service: 08/03/2024 Allergies : Sulfamide Vital Signs : Time: 11:38. Height: 68 in (172.72 cm). Pulse: 102 (/min) . Blood pressure: 152/81 (mm Hg). Pain Scale: 0. Entered by Danisha Hirsch RN, Sr 08/03/2024 11:38 Time: 02:00. Pain Scale: 0. Entered by Danisha Hirsch RN, Sr 08/03/2024 11:27 Incident To Details : Incident to physician is present and immediately available to furnish assistance and provide supervision throughout the treatment. Entered By Danisha Hirsch RN, Sr on :27 Patient Assessment : Positive results Assessment : Labs Verified: Yes, Alert, oriented with appropriate behavior. Negative results Assessment : Gait Changes. Denies Neuropathy , Pain -0-No pain, Fatigue , Anxiety/Depression , Fever, Chills or Night Sweats ,Signs of Infection , Skin Changes , Dizziness , Headaches , Nausea , Breathing Changes , Cough , Mouth Sores/Stomatitis/Mucositis , Changes in Appetite , Vomiting , Diarrhea , Constipation , Urinary Changes , Bleeding . Entered By Danisha Hirsch RN, Sr on :27 IV Access/Lab Draw : IV Access-Peripheral - New Start, Primary Bag Fluid-0.9% Sodium Chloride, Primary Bag Volume-100 mL, Primary Bag Start Time-11:25, Primary Bag Stop Time- 13:05, Needle Type-Iv Cath, Needle Size-24 Gauge, Needle Length-1/2 inch, Access Site-Left Arm, Flush-10ml NS, Site Assess List-Blood Return,No Redness,No Swelling,No Tenderness,No Bruising, Lab Drawn-No, Access Attempts-1 time(s), Entered By Danisha Hirsch RN, Sr on 13:16 IV De-Access : IV Access Method-Peripheral - New Start, IV Access Type-Iv Cath, Line Flushed- 20ml NS, Catheter-Dc'd, Site Care-Bandage Applied,IV Infusion Completed,Therapy Completed Without Adverse Event, Site Assess-Line Intact,No Redness,No Swelling,No Tenderness,No Bruising, Entered By Danisha Hirsch RN, Sr on 13:16 Discharge Note : Comments-Therapy completed without adverse event, Discharged from clinic, Stable, No new complaints, Plan for next patient visit confirmed, Accompanied By-Self, Discharge-Ambulatory, Discharge Time-08/03/2024 13:16 Entered By Danisha Hirsch RN, Sr on 13:16 Medication Administration : Incident to: Arnaud Magdaleno MD Pembrolizumab + Lenvatinib Q21D Immunotherapy Pembrolizumab IV, 25 mg/mL solution, 200 mg intravenously Piggyback once, Instructions: Dilute withNS or D5W to a final concentration of 1-10 mg/mL. Infuse with low protein binding filter (0.2 - 5 micron). Do not mix with other drugs. Do not shake., Allow Substitution GIVEN: 200 mg Pharmacy plan: Dose Form Description: 25 mg/mL solution Dispense/Waste: 200/0 mg Amount in mL: 8 Pharmacy dispense: [facility]: [id number] Dispense/Waste: 200/0 mg Given Dose/Discard: 200/0 mg Admin Details: IV Administration: Piggyback, CIV Completion: Therapy Completed without adverse event Start Time: 12:28, Entered By: Danisha Hirsch RN, Sr, Stop Time: 13:00, Entered By: Danisha Hirsch RN, Sr Admix Fluid: 0.9 % sodium chloride, Admix Fluid Volume: 100mL, Total Volume: 108mL Double Checked By: Danisha Hirsch RN, Sr on 08/03/2024 11:46 and Carey Ruffin RN, II on 08/03/2024 11:52 Incident to: Arnaud Magdaleno MD IV Hydration TxO Fluids Sodium Chloride IV 0.9 %, 1000 mL intravenously once, Allow Substitution GIVEN: 1,000 mL Pharmacy plan: Dispense/Waste: 1000/0 mL Pharmacy dispense: [facility]: [id number] Dispense/Waste: 1000/0 ML Given Dose/Discard: 1000/0 mL Admin Details: IV Administration: Piggyback, CIV Completion: Therapy Completed without adverse event Start Time: 11:27, Entered By: Danisha Hirsch RN, Sr, Stop Time: 12:28, Entered By: Danisha Hirsch RN, Sr Free Text Note : I attest that the medications in the MAR were double checked prior to administration. I have reviewed and confirmed:??? The appearance and physical integrity of the drug were normal and as expected.??? The drug name, dose, and volume are correct.??? The drug administration rate and route are correct.??? The sequencing of drug administration is correct.??? The drug expiration date/time are within normal limits.??? The infusion pump settings are correct. Entered By Danisha Hirsch RN, Sr on 13:16
--- OUTSIDE RECORDS SUMMARY | 2024-12-31 11:38 | XMS_ITS | Clinical Summary ---
Author Organization [facility] Nisha schmitt Address [address] [place] [address] Phone Care Team Providers Care Field Examiner Name Role Phone Beto Anne MD Primary Care Provider [phone] Allergies Active Allergy Reactions Criticality Noted Date Comments Metformin nausea Low 12/26/2021 Mirtazapine fatigue Medium 03/21/2024 Extreme fatigue slept all day after 1 pill. Sulfa Antibiotics Hives Medium 11/15/2017 Sulfacetamide Hives Medium 03/30/2024 Medications acetaminophen (TYLENOL) 325 MG capsule 500 mg as needed in the morning. 2 Active Blood Glucose Calibration (OT ULTRA/FASTTK CNTRL SOLN) solution 8 Active glucose blood (OneTouch Ultra) test strip 8 Active Lancets (onetouch ultrasoft) lancets 8 Active metoprolol tartrate (LOPRESSOR) 25 MG tablet Take 25 mg by mouth in the morning and 25 mg in the evening. 0 Active tamsulosin (FLOMAX) 0.4 MG 24 hr capsule Take 0.8 mg by mouth in the morning. 8 Active Hydrocortisone, Perianal, 2.5 % cream Apply topically if needed 3 Active dilTIAZem CD (CARDIZEM CD) 240 MG 24 hr capsule Take 240 mg by mouth 1 (one) time each day 3 Active omeprazole (PriLOSEC) [address] capsule Take 20 mg by mouth 1 (one) time each day 4 Active levothyroxine (SYNTHROID) 112 MCG tablet Take 112 mcg by mouth 1 (one) time each day 5 Active lisinopril (PRINIVIL) 20 MG tablet Take 1 tablet (20 mg total) by mouth 1 (one) time each day 90 tablet 3 5 08/29/19 26 Active Cabometyx 20 MG tablet Take 40 mg by mouth 1 (one) time each day 5 Active ondansetron (ZOFRAN) 8 MG tablet Take 4 mg by mouth every 8 (eight) hours if needed 5 Active furosemide (LASIX) 40 MG tablet Take 2 tablets (80 mg total) by mouth 1 (one) time each day 180 tablet 5 03/14/20 25 Active furosemide (LASIX) 20 MG tablet Take 1 tablet (20 mg total) by mouth 1 (one) time each day 90 tablet 3 5 12/15/19 25 Discontinu ed(Reorder ) Active Problems Problem Noted Date Diagnosed Date Benign prostatic hyperplasia 04/06/2024 History of nephrectomy 04/06/2024 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 Lopez; txf to [place] desired Stage 3 chronic kidney disease 08/26/2022 Renal mass 08/25/2022 Anemia 06/17/2022 Gastroesophageal reflux disease 06/17/2022 Hypertensive disorder 06/17/2022 Hypothyroidism 06/17/2022 Metastatic renal cell carcinoma 06/17/2022 Renal insufficiency 06/17/2022 Type 2 diabetes mellitus without complication Nuclear sclerosis 04/11/2021 Overview (08/25/2022): Added automatically from request for surgery [id number] Encounters Date Type Department Care Team Description [facility] [address] [place] [address] Leydi Quiroz, RN 11/28/2024 1:00 PM CDT Office Visit [facility] [address] [place] [address] Aneta Dyer MD Stage 3 chronic kidney disease, not otherwise specified (CMS-HCC) (Primary Dx); Essential (primary) hypertension; S/P nephrectomy; Proteinuria, not otherwise specified; Elevated prostate specific antigen (PSA); Atrial fibrillation, not otherwise specified (CMS-HCC); Metastatic renal cell carcinoma <Right side> (CMS-HCC); Type 2 diabetes mellitus without complication (CMS-HCC); Hypothyroidism, not otherwise specified 10/04/2024 Telephone [facility] [address] [place] [address] Leydi Quiroz, RN Med Refill from Last 3 Months Immunizations Immunization Administration Dates Next Due Fluzone High-Dose 04/03/2023,03/10/2022,03/22/20 20 H1N1 All Forms 05/13/2009 Influenza Recombinant Joseluis valent Injectable Preservative Free 03/24/2021 Influenza Split High Dose Pr eservative Free IM 03/09/2024,03/10/2022,03/14/2018,03/25,03/24/2016,04/02/2015 Influenza, Injectable, Quadr ivalent, Preservative Free 03/24/2021,03/24/2019,03/14/2018,03/25,03/24/2016,04/02/2015,05/13/2009 Pfizer Sars-cov-2 Vaccination 04/14/2023, 022 Pneumococcal Conjugate 13-Valent 06/28/2013 Pneumococcal Conjugate [...] Given: No Alcohol Use Standard Drinks/Week Comments Not Currently [...] Mass Index 22.76 11/28/2024 1:10 PM CDT Plan of Treatment Health Maintenance Due Date Last Done Comments Diabetic Foot Exam 1955 COVID-19 Vaccine (2023-2 5 season) 2024 04/14/2023, 05/07/2022, 02/25/2021 Influenza Vaccine (#1) 2025 , 03/24/2021, 03/24/2019, Additional history exists Ophthalmology Exam 02/13/2025 02/14/2024, 02/11/2023 Pneumococcal PPSV23/PCV13 65 + Years / High and Highest Risk Completed 06/28/2013, 09/04/2009 Insurance PM INTERFACED INSURANCE PM INTERFACED INSURANCE PM INTERFACED INSURANCE PM INTERFACED INSURANCE PM INTERFACED INSURANCE Care Teams Field Examiner Relationship Specialty Start Date End Date Beto Anne MD [address] [place] [address] PCP - General 08/26/22
--- OUTSIDE RECORDS SUMMARY | 2024-12-31 11:38 | XMS_ITS | CCD ---
Author Name Interface, [id number] lity Address [address] [address] [facility] Address [address] [address] Care Team Providers Care Plastics Technician Name Role Phone Rasta SHOOK, Arnaud Hoyt Unavail able Allergies and Adverse Reactions Care Plan Reason for Visit Encounters Diagnostic Results Medications Administered Medications Problems Procedures Social History Visits Vital Signs Notes Section
--- OUTSIDE RECORDS SUMMARY | 2024-12-31 11:38 | XMS_ITS ---
Author Name Interface, [id number] lity Address [place] [address] [facility] Address [address] [place] [address] Allergies and Adverse Reactions Plan Reason for Visit Encounters Diagnostic Results Medications Problems Vital Signs Notes Section
--- OUTSIDE RECORDS SUMMARY | 2024-12-31 11:38 | XMS_ITS | Clinical Summary ---
Author Organization [facility] Address [facility] [place] [address] Care Team Providers Care Tare Worker Name Role Phone Beto Anne MD Primary Care Provider [phone] Allergies Active Allergy Reactions Criticality Noted Date Comments Metformin GI Upset 01/06/2022 Sulfa (Sulfonamide Antibiotics) Hives 12/22 Medications dilTIAZem CD (CARDIZEM CD) 240 mg extended release 24 hr capsuleIndication s:Heart palpitations Take 1 capsule by mouth once daily. Further refills at [facility] appt 90 capsule 0 Active metoprolol tartrate (LOPRESSOR) as half tablet Take 12.5 mg by mouth two times daily. 0 0 Active glipiZIDE extended-release (GLUCOTROL XL) 2.5 mg Extended-Release tablet Take 2.5 mg by mouth once daily before a meal. 1 Active tamsulosin (FLOMAX) 0.4 mg capsule Take 0.4 mg by mouth once daily after a meal. 2 Active omeprazole (PRILOSEC) 20 mg Delayed-Release capsule Take 20 mg by mouth once daily before a meal. Active pembrolizumab (Keytruda) 25 mg/mL injection Inject intravenous. 200mg IV Every three weeks 0 2 Active levothyroxine (SYNTHROID) 50 mcg tablet Take 1 Capsule by mouth once daily. 2 Active sennosides-docusa te (SENOKOT S) (8.6-50 mg) tabletIndications :Malignant tumor of kidney, right (HC) Take 1 to 2 Tablets by mouth 2 times daily if needed for Constipation . 30 Tablet 06/18/2022 10:17 AM SEWING DEPARTMENT SUPERVISOR 3 Active oxyCODONE (ROXICODONE) 5 mg immediate release tabletIndications :Malignant tumor of kidney, right (HC) Take 1 Tablet (5 mg) by mouth every 4 hours if needed for severe pain. 10 Tablet 06/18/2022 10:17 AM SEWING DEPARTMENT SUPERVISOR 3 Active Active Problems Problem Noted Date Diagnosed Date HTN (hypertension) 06/17/2022 Hypothyroidism 06/17/2022 Controlled type 2 diabetes m ellitus without complication, without long-term current use of insulin 06/17/2022 Anemia, unspecified 06/17/2022 Metastatic renal cell carcinoma 06/17/2022 GERD (gastroesophageal reflux disease) 3 Renal insufficiency 06/17/2022 Renal mass Family History [...] at Not on file Legal Sex Male 5:26 AM SEWING DEPARTMENT SUPERVISOR Gender Identity Not on file Sexual Orientation Not on file Obstetrics History Last Filed Vital Signs Vital Sign Reading Time Taken Comments Blood Pressure 165/80 06/18/2022 8:00 AM SEWING DEPARTMENT SUPERVISOR Pulse 69 06/18/2022 8:00 AM SEWING DEPARTMENT SUPERVISOR Temperature 36.6 C (97.8 F) 06/18/2022 8:00 AM SEWING DEPARTMENT SUPERVISOR Respiratory Rate 18 06/18/2022 8:00 AM SEWING DEPARTMENT SUPERVISOR Oxygen Saturation 96% 06/18/2022 8:00 AM SEWING DEPARTMENT SUPERVISOR Inhaled Oxygen Concentration - - Weight 77.7 kg (171 lb 3.2 oz) 06/18/2022 9:00 A M SEWING DEPARTMENT SUPERVISOR Height 177.8 cm (5' 10) 06/16/2022 11:29 AM SEWING DEPARTMENT SUPERVISOR Body Mass Index 24.56 06/16/2022 11:29 AM SEWING DEPARTMENT SUPERVISOR Plan of Treatment Health Maintenance Due Date Last Done Comments Tetanus booster 1955 Depression screening for age 12+ 1956 BMI (ht and wt on same day) for age 18+ 1962 Pneumococcal series for age 50+ (1 of 2 - PCV) 1963 Zoster (shingles) series for age 50+ (1 of 2) 1963 Medicare Wellness for age 65+ 2009 RSV vaccine for adults or (1 - 1-dose 75+ series) 2019 COVID-19 vaccine series ( - 2023- season) 2024 04/14/2023, 05/07/2022, 02/25/2021 Influenza Vaccine (#1) 2025 Hepatitis B series for 19+ Aged Out N o longer eligible based on patient's age to complete this topic Insurance MEDICARE PB ONLY [facility] MEDICARE PART B HB ONLY MEDICARE PART A HB ONLY Advance Directives * Full Code (Latest Code Status on File) Date Activated Date Inactivated Comments 06/18/2022 12:58 PM 06/18/2022 3:42 PM Question Answer Comments Code Status Discussion: Reviewed Preferences * Full Code Date Activated Date Inactivated Comments 06/16/2022 11:06 AM 06/18/2022 12:58 PM Question Answer Comments Code Status Discussion: Unable to Assess Preferences, Provider to review later Care Teams Tare Worker Relationship Specialty Start Date End Date Beto Anne MD [address] [place] [address] PCP - General Family Practice 12/29/21
--- OUTSIDE RECORDS SUMMARY | 2024-12-31 11:38 | XMS_ITS ---
Author Name Interface, [id number] lity Address [place] [address] [facility] Address [address] [place] [address] Allergies and Adverse Reactions Medication/Group Name Reaction [...] mmol/L 136.0 145.0 141 FINAL Arnaud Abad-B [facility] Serum [facility] n [address] [address] CLIA ID# [id number] 08/02 CMP Potas sium mmol/L 3.5 5.1 3.9 FINAL Arnaud Abad-B [facility] Serum [facility] n [address] [address] CLIA ID# [id number] 08/02 CMP Chlor viola mmol/L 97.0 107.0 104 FINAL Arnaud Abad-B [facility] Serum [facility] n [address] [address] CLIA ID# [id number] 08/02 CMP CO2 mmol/L 21.0 32.0 27.7 FINAL Arnaud douglasses [facility] n [address] [address] CLIA ID# [id number] 08/02 CMP Gluco se mg/dL 74.0 106.0 155 High FINAL Arnaud joiner [facility] n [address] [address] CLIA ID# [id number] 08/02 CMP BUN mg/dL 7.0 18.0 22 High FINAL Arnaud douglass [facility] n [address] [address] CLIA ID# [id number] 39 08/02 CMP Creat inine , mg/dL mg/dL 0.55 1.3 1.66 High FINAL Arnaud Burt [facility] n [address] [address] CLIA ID# [id number] 39 08/02 CMP GFR estim ate mil/mi n/1.73 m2 41 Low Result based on the eGFR 2020 calculati on.60-89 mL/min/1. 73m^2 without kidney damage may be normal.60 -89 mL/min/1. 73m^2 for 3 months or more, along with kidney damage, may indicate early kidney disease.C alculatio n modified to the 2020 formula effective 08/22/22. FINAL Arnaud Abad-B rafat [facility] n [address] [address] CLIA ID# [id number] 08/02 CMP BUN/C reati nine ratio 6.0 25.0 13.3 FINAL Arnaud douglass [facility] n [address] [address] CLIA ID# [id number] 39 08/02 CMP Calci um mg/dL 8.5 10.1 8.3 Low FINAL Arnaud Leblancy-B erges [facility] n [address] [address] CLIA ID# [id number] 39 08/02 CMP Album in g/dL 3.4 5.0 2.9 Low FINAL Arnaud Abad-B erges [facility] n [address] [address] CLIA ID# [id number] 08/02 CMP Total prote in g/dL 6.4 8.2 6.1 Low FINAL Arnaud Abad-B erges [facility] n [address] [address] CLIA ID# [id number] 39 08/02 CMP Globu ciro g/dL 2.2 4.2 3.2 FINAL Arnaud Abad-B erges [facility] n [address] [address] CLIA ID# [id number] 39 08/02 CMP A/G ratio 0.8 2.0 0.9 FINAL Arnaud Abad-B erges [facility] n [address] [address] CLIA ID# [id number] 39 08/02 CMP Bilir ubin, total mg/dL 0.2 1.0 0.4 FINAL Arnaud Abad-B erges [facility] n [address] [address] CLIA ID# [id number] 39 08/02 CMP Alkal ine phosp hatas e U/L 46.0 116.0 137 High FINAL Arnaud Abad-B erges [facility] n [address] [address] CLIA ID# [id number] 39 08/02 CMP AST/S GOT U/L 15.0 37.0 35 FINAL Aranud joiner [facility] n [address] [address] CLIA ID# [id number] 39 08/02 CMP ALT/S GPT U/L 16.0 63.0 35 FINAL Arnaud joiner [facility] n [address] [address] CLIA ID# [id number] 39 08/02 CBC w/aut o diff with refle x WBC 10^3/u L 4.8 10.8 5.3 FINAL Arnaud joiner Whole Blood [facility] [address] [address] CLIA ID# [id number] 10 08/02 CBC w/aut o diff with refle x RBC 10^6/u L 4.7 6.1 3.96 Low FINAL Arnaud joiner Whole Blood [facility] [address] [address] CLIA ID# [id number] 10 08/02 CBC w/aut o diff with refle x HGB g/dL 14.0 18.0 13.2 Low FINAL Arnaud joiner Whole Blood [facility] [address] [address] CLIA ID# [id number] 10 08/02 CBC w/aut o diff with refle x HCT % 40.0 50.0 40.0 FINAL Arnaud joiner Whole Blood [facility] [address] [address] CLIA ID# [id number] 10 08/02 CBC w/aut o diff with refle x MCV fL 80.0 94.0 101.0 High FINAL Arnaud joiner Whole Blood [facility] [address] [address] CLIA ID# [id number] 10 08/02 CBC w/aut o diff with refle x MCH pg 27.0 31.0 33.3 High FINAL Arnaud joiner Whole Blood [facility] [address] [address] CLIA ID# [id number] 10 08/02 CBC w/aut o diff with refle x MCHC g/dL 33.0 37.0 33.0 FINAL Arnaud joiner Whole Blood [facility] [address] [address] CLIA ID# [id number] 10 08/02 CBC w/aut o diff with refle x PLT 10^3/u L 130.0 400.0 167 FINAL Arnaud joiner Whole Blood [facility] [address] [address] CLIA ID# [id number] 10 08/02 CBC w/aut o diff with refle x MPV fL 9.4 12.4 10.1 FINAL Arnaud joiner Whole Blood [facility] [address] [address] CLIA ID# [id number] 10 08/02 CBC w/aut o diff with refle x RDW % 10.5 14.5 13.3 FINAL Arnaud joiner Whole Blood [facility] [address] [address] CLIA ID# [id number] 10 08/02 CBC w/aut o diff with refle x Tatyana % % 40.0 77.0 62.0 FINAL Arnaud joiner Whole Blood [facility] [address] [address] CLIA ID# [id number] 10 08/02 CBC w/aut o diff with refle x Tatyana # (ANC) 10^3/u L 1.5 6.5 3.29 FINAL Arnaud joiner Whole Blood [facility] [address] [address] CLIA ID# [id number] 10 08/02 CBC w/aut o diff with refle x IG % % 0.0 0.5 0.4 FINAL Arnaud joiner Whole Blood [facility] [address] [address] CLIA ID# [id number] 10 08/02 CBC w/aut o diff with refle x IG # 10^3/u L 0.0 0.03 0.02 FINAL Arnaud joiner Whole Blood [facility] [address] [address] CLIA ID# [id number] 10 08/02 CBC w/aut o diff with refle x LY % % 15.0 41.0 28.2 FINAL Arnaud joiner Whole Blood [facility] [address] [address] CLIA ID# [id number] 10 08/02 CBC w/aut o diff with refle x LY # 10^3/u L 1.2 3.4 1.50 FINAL Arnaud joiner Whole Blood [facility] [address] [address] CLIA ID# [id number] 10 08/02 CBC w/aut o diff with refle x MO % % 3.0 11.0 7.5 FINAL Arnaud joiner Whole Blood [facility] [address] [address] CLIA ID# [id number] 10 08/02 CBC w/aut o diff with refle x MO # 10^3/u L 0.0 1.0 0.40 FINAL Arnaud joiner Whole Blood [facility] [address] [address] CLIA ID# [id number] 10 08/02 CBC w/aut o diff with refle x EO % % 0.0 3.0 1.5 FINAL Arnaud joiner Whole Blood [facility] [address] [address] CLIA ID# [id number] 10 08/02 CBC w/aut o diff with refle x EO # 10^3/u L 0.0 0.3 0.08 FINAL Arnaud joiner Whole Blood [facility] [address] [address] CLIA ID# [id number] 10 08/02 CBC w/aut o diff with refle x BA % % 0.0 1.0 0.4 FINAL Arnaud joiner Whole Blood [facility] [address] [address] CLIA ID# [id number] 10 08/02 CBC w/aut o diff with refle x BA # 10^3/u L 0.0 0.2 0.02 FINAL Arnaud joiner Whole Blood [facility] [address] [address] CLIA ID# [id number] 10 08/02 CBC w/aut o diff with refle x NRBC, % % 0.0 0.2 0.0 FINAL Arnaud joiner Whole Blood [facility] [address] [address] CLIA ID# [id number] 10 08/02 CBC w/aut o diff with refle x NRBC, absol [place], x 10^3/ uL 10^3/u L 0.0 0.01 0.00 FINAL Arnaud Burt marisel Whole Blood [facility] [address] [address] CLIA ID# [id number] Medications Date Name Route Dose Frequency [...] Diagnosis Resolution Date Renal cancer Active Other technician terminal and repeater (current) drug therapy Active Vital Signs Date [...] Notes Section * HemOnc Follow Up - [facility] [place] [address] [place] [address] P: F: PATIENT: KUMAR MALONE : 1945 [...] us last winter and then return to [place]??where he continue with the treatment.?? A PET scan done??05/08/2024 showed a subcentimeter FDGavid soft tissue nodule in the right fifth/sixth intercostal space??suspicion for an isolated site of metastatic disease.?? He received SBRT that ended last Wednesday. He??is originally from [place] and has been receiving his??pembrolizumab infusions??with us??while he spent 5 of the winter here in the [facility].?? He is going back to [place] in about 2weeks.?? Will be having repeat imaging studies in [place].?? TSH 07/12/2024 was slightly elevated??at 5.5,??the rest of the blood work including CBC, CMP were within normal limits. Interval History: Past Medical History: Metastatic??renal cell carcinoma as noted Hypothyroidism BPH Hypertension Past Surgical History: * Procedure: Nephrectomy * Procedure: Hernia repair (procedure) Past Surgical History*: PROJECT CONTROLS SPECIALIST History: Medications: * Tamsulosin Oral 0.4 mg [...] snf (current) drug therapy ( ICD-10:Z79.899 ;Other technician terminal and repeater (current) drug therapy ) Impression: * 79-year-old [...] appointment to follow-up with his oncologist in [place]. * Return appointment when he returns to the [facility] during the winter??in May. Procedure: . Note dictated with a voice recognition system, subject to transcriptional variance. Arnaud Magdaleno MD Send copy of note to: MD Gio Boyd MD . Electronically signed by Arnaud Magdaleno MD 08/03/2024 05:42 CDT * Nurse Note for: 03-AUG-24 [place] [facility] Nurse Note Print Location: Unknown Date/Time Printed: 12/31/2024 11:36 ([facility]) Patient: KUMAR MALONE Sex: Male : 1945 [...] mg Amount in mL: 8 Pharmacy dispense: [facility]: [id number] Dispense/Waste: 200/0 mg Given Dose/Discard: 200/0 mg Admin Details: IV Administration: Piggyback, CIV Completion: Therapy Completed without adverse event Start Time: 12:28, Entered By: Danisha Hirsch RN, Sr, Stop Time: 13:00, Entered By: Danisha Hirsch RN, Sr Admix Fluid: 0.9 % sodium chloride, Admix Fluid Volume: 100mL, Total Volume: 108mL Double Checked By: Danisha Hirsch RN, Sr on 08/03/2024 11:46 and Carye Ruffin RN, II on 08/03/2024 11:52 Incident to: Arnaud Magdaleno MD IV Hydration TxO Fluids Sodium Chloride IV 0.9 %, 1000 mL intravenously once, Allow Substitution GIVEN: 1,000 mL Pharmacy plan: Dispense/Waste: 1000/0 mL Pharmacy dispense: [facility]: [id number] Dispense/Waste: 1000/0 ML Given Dose/Discard: 1000/0 mL [...]
--- OUTSIDE RECORDS SUMMARY | 2024-12-31 11:39 | XMS_ITS | CCD ---
Author Name Interface, [id number] lity Address [address] [place] [address] [address] [place] [address] [facility] On[facility] Address [address] [facility] [address] [place] [address] Care Team Providers Care Car Inspector Name Role Phone Gio Lopez MD Unavailable Unavailable Allergies and Adverse Reactions Care Plan Reason for Visit Encounters Functional Status Immunizations Diagnostic Results Medications Administered Medications Problems Procedures Social History Visits Vital Signs Notes Section
--- OUTSIDE RECORDS SUMMARY | 2024-12-31 11:39 | XMS_ITS ---
Author Name Interface, [id number] lity Address [address] [place] [address] Oncology Address [address] [place] [address] Allergies and Adverse Reactions Plan Reason for Visit Encounters Immunizations Diagnostic Results Medications Problems Vital Signs Notes Section
--- OUTSIDE RECORDS SUMMARY | 2024-12-31 11:39 | XMS_ITS ---
Author Name Interface, [id number] Address [address] [facility] [address] [address] [facility] Address [address] [facility] [address] [address] Allergies and Adverse Reactions Medication/Group Name Reaction [...] 4.2 FINAL [facility] , [address] [facility] [address] [place] [id number] 0 10/13 CBC w/ auto diff HGB g/dL 12.5 16.6 12.3 Low FINAL Gio Lopez [place] [facility] [place] [facility] , [address] [place] [id number] 0 10/13 CBC w/ auto diff PLT K/uL 113.0 364.0 162 FINAL Gio Lopez [place] [facility] [place] [facility] , [address] [place] [id number] 0 10/13 CBC w/ auto diff Tatyana # (ANC) K/uL 1.6 6.6 2.0 FINAL Gio [facility] [place] [facility] [place] [facility] , [address] [place] [id number] 0 10/13 CBC w/ auto diff Tatyana % % 43.0 74.0 46.9 FINAL Gio Lopez [place] [facility] [place] [facility] , [address] [place] [id number] 0 10/13 CBC w/ auto diff IG % % 0.0 0.5 0.2 FINAL Gio Lopez [place] [facility] [place] [facility] , [address] [place] [id number] 0 10/13 CBC w/ auto diff IG # K/uL 0.0 0.03 0.01 FINAL Gio Lopez [place] [facility] [place] [facility] , [address] [place] [id number] 0 10/13 CBC w/ auto diff LY % % 14.0 41.0 43.1 High FINAL Gio Lopez [place] [facility] [place] [facility] , [address] [place] [id number] 0 10/13 CBC w/ auto diff MO % % 6.0 15.0 6.9 FINAL Gio Lopez [place] [facility] [place] [facility] , [address] [place] [id number] 0 10/13 CBC w/ auto diff EO % % 0.0 7.0 2.4 FINAL Gio Lopez [place] [facility] [place] [facility] , [address] [place] [id number] 0 10/13 CBC w/ auto diff BA % % 0.0 2.0 0.5 FINAL Gio Lopez [place] [facility] [place] [facility] , [address] [place] [id number] 0 10/13 CBC w/ auto diff LY # K/uL 0.4 3.6 1.8 FINAL Gio Lopez [place] [facility] [place] [facility] , [address] [place] [id number] 0 10/13 CBC w/ auto diff MO # K/uL 0.2 1.3 0.3 FINAL Gio Lopez [place] [facility] [place] [facility] , [address] [place] [id number] 0 10/13 CBC w/ auto diff EO # K/uL 0.0 0.6 0.1 FINAL Gio Lopez [place] [facility] [place] [facility] , [address] [place] [id number] 0 10/13 CBC w/ auto diff BA # K/uL 0.0 0.2 0.0 FINAL Gio Lopez [place] [facility] [place] [facility] , [address] [place] [id number] 0 10/13 CBC w/ auto diff NRBC % #/100W BC 0.0 0.2 0.0 FINAL Gio Lopez [place] [facility] [place] [facility] , [address] [place] [id number] 0 10/13 CBC w/ auto diff RBC M/uL 4.2 5.6 3.70 Low FINAL Gio Lopez [place] [facility] [place] [facility] , [address] [place] [id number] 0 10/13 CBC w/ auto diff HCT % 39.0 49.0 36.8 Low FINAL Gio Lopez [place] [facility] [place] [facility] , [address] [place] [id number] 0 10/13 CBC w/ auto diff MCV fL 80.0 104.0 99.5 FINAL Gio Lopez [place] [facility] [place] [facility] , [address] [place] [id number] 0 10/13 CBC w/ auto diff MCH pg 26.0 35.0 33.2 FINAL Gio Lopez [place] [facility] [place] [facility] , [address] [place] [id number] 0 10/13 CBC w/ auto diff MCHC g/dL 30.0 35.0 33.4 FINAL Gio Lopez [place] [facility] [place] [facility] , [address] [place] [id number] 0 10/13 CBC w/ auto diff MPV fL 9.5 13.4 10.4 FINAL Gio Lopez [place] [facility] [place] [facility] , [address] [place] [id number] 0 10/13 CBC w/ auto diff RDW % 11.3 15.6 15.20 FINAL Gio Lopez [place] [facility] [place] [facility] , [address] [place] [id number] 0 10/13 CMP Album in g/dL 3.5 5.0 2.9 Low FINAL Gio Lopez * [facility] , [address] [facility] [id number] 0 10/13 CMP Alkal ine phosp hatas e U/L 36.0 125.0 106 FINAL iGo Lopez * [facility] , [address] [address] [facility] [address] [facility] [id number] 0 10/13 CMP ALT/S GPT U/L 0.0 49.0 32 FINAL Gio Lopez * [facility] , [address] [facility] [facility] [id number] 0 10/13 CMP AST/S GOT U/L 17.0 59.0 48 FINAL Gio Lopez * [facility] , [address] [facility] [address] [facility] [id number] 0 10/13 CMP BUN mg/dL 9.0 20.0 20.0 FINAL Gio Lopez * [facility] , [address] [facility] [id number] 0 10/13 CMP Calci um mg/dL 8.4 10.2 7.4 Critica l control chemist ry value tasia Dai FINAL Gio Lopez * [facility] , [address] [facility] [facility] [id number] 0 10/13 CMP Chlor viola mmol/L 96.0 107.0 103 FINAL Gio Lopez * [facility] , [address] [facility] [facility] [id number] 0 10/13 CMP CO2 mmol/L 22.0 30.0 [...] hour stability window. FINAL Gio Lopez * [facility] , [address] [facility] [id number] 0 10/13 CMP Creat inine mg/dL 0.66 1.25 1.50 High FINAL Gio Lopez * [facility] , [address] [facility] [id number] 0 10/13 CMP GFR estim ate ml/min /1.73m ^2 46.7 Low GFR is calculate d using the CKD-EPI equation. FINAL Gio Lopez * [facility] , [address] [facility] [id number] 0 10/13 CMP Gluco se mg/dL 74.0 100.0 110 High FINAL Gio Lopez * [facility] , [address] [facility] [id number] 0 10/13 CMP Potas sium mmol/L 3.5 5.1 4.4 FINAL Gio Lopez * [facility] , [address] [facility] [id number] 0 10/13 CMP Sodiu m mmol/L 137.0 145.0 136 Low FINAL Gio Lopez * [facility] , [address] [facility] [id number] 0 10/13 CMP Bilir ubin, total mg/dL 0.2 1.3 0.4 FINAL Gio Lopez * [facility] , [address] [facility] [id number] 0 10/13 CMP Total prote in g/dL 6.3 8.2 5.4 Low FINAL Gio John * [facility] , [address] [facility] [id number] 0 10/13 TSH w/ refle x to free T4 TSH uIU/mL 0.47 4.68 1.65 FINAL Gio Lopez * [facility] , [address] [facility] [id number] 0 10/13 Prote in/cr eatin ine ratio , kierrao m urine panel CREAT ININE , KIERRAO M URINE mg/dL 20.0 320.0 45 FINAL Gio VALDES [facility] [address] [place] [id number] 4 10/13 Prote in/cr eatin ine ratio , kierrao m urine panel PROTE IN/CR EATIN INE RATIO mg/gcr eat 25.0 148.0 4556 High FINAL Gio VALDES [facility] [address] [place] [id number] 4 10/13 Prote in/cr eatin ine ratio , kierrao m urine panel PROTE IN/CR EATIN INE RATIO mg/mgc reat 0.025 0.148 4.556 High FINAL Gio VALDES [facility] [address] [place] [id number] 4 10/13 Prote in/cr eatin ine ratio , mario m urine panel PROTE IN, TOTAL , KIERRAO M UR mg/dL 5.0 25.0 205 High Verified by repeat analysis. FINAL Gio VALDES [facility] [address] [place] [id number] 4 11/20 TSH w/ refle x to free T4 TSH uIU/mL 0.47 4.68 1.59 FINAL Gio Lopez * [facility] , [address] [facility] [id number] 0 11/20 CMP Album in g/dL 3.5 5.0 2.7 Low FINAL Gio Lopez * [facility] , [address] [facility] [id number] 0 11/20 CMP Alkal ine phosp hatas e U/L 36.0 125.0 120 FINAL Gio Lopez * [facility] , [address] [facility] [id number] 0 11/20 CMP ALT/S GPT U/L 0.0 49.0 33 FINAL Gio Lopez * [facility] , [address] [facility] [id number] 0 11/20 CMP AST/S GOT U/L 17.0 59.0 45 FINAL Goi Lopez * [facility] , [address] [facility] [id number] 0 11/20 CMP BUN mg/dL 9.0 20.0 26.0 High FINAL Gio Lopez * [facility] , [address] [facility] [id number] 0 11/20 CMP Calci um mg/dL 8.4 10.2 7.4 Criti ninoska Low FINAL Gio Lopez * [facility] , [address] [facility] [id number] 0 11/20 CMP Chlor viola mmol/L 96.0 107.0 107 FINAL Gio Lopez * [facility] , [address] [facility] [id number] 0 11/20 CMP CO2 mmol/L 22.0 30.0 [...] hour stability window. FINAL Gio Lopez * [facility] , [address] [facility] [id number] 0 11/20 CMP Creat inine mg/dL 0.66 1.25 1.60 High FINAL Gio Lopez * [facility] , [address] [facility] [id number] 0 11/20 CMP GFR estim ate ml/min /1.73m ^2 43.2 Low GFR is calculate d using the CKD-EPI equation. FINAL Gio Lopez * [facility] , [address] [facility] [id number] 0 11/20 CMP Gluco se mg/dL 74.0 100.0 99 FINAL Gio Lopez * [facility] , [address] [facility] [facility] [id number] 0 11/20 CMP Potas sium mmol/L 3.5 5.1 4.3 FINAL Gio Lopez * [facility] , [address] [facility] [id number] 0 11/20 CMP Sodiu m mmol/L 137.0 145.0 137 FINAL Gio Lopez * [facility] , [address] [facility] [id number] 0 11/20 CMP Bilir ubin, total mg/dL 0.2 1.3 0.5 FINAL Gio Lopez * [facility] , [address] [facility] [id number] 0 11/20 CMP Total prote in g/dL 6.3 8.2 5.1 Low FINAL Gio Lopez * [facility] , [address] [facility] [id number] 0 11/20 CBC w/ auto diff WBC K/uL 3.0 8.9 6.0 FINAL Gio Lopez [facility] , [address] [facility] [id number] 0 11/20 CBC w/ auto diff HGB g/dL 12.5 16.6 11.3 Low FINAL Gio Lopez [place] [facility] [place] [facility] , [address] [place] [id number] 0 11/20 CBC w/ auto diff PLT K/uL 113.0 364.0 139 FINAL Gio Lopez [place] [facility] [place] [facility] , [address] [place] [id number] 0 11/20 CBC w/ auto diff Tatyana # (ANC) K/uL 1.6 6.6 4.0 FINAL Gio Lopez [place] [facility] [place] [facility] , [address] [place] [id number] 0 11/20 CBC w/ auto diff Tatyana % % 43.0 74.0 67.3 FINAL Gio Lopez [place] [facility] [place] [facility] , [address] [place] [id number] 0 11/20 CBC w/ auto diff IG % % 0.0 0.5 0.2 FINAL [facility] Lopez [place] [facility] , [address] [place] [id number] 0 11/20 CBC w/ auto diff IG # K/uL 0.0 0.03 0.01 FINAL Gio Lopez [place] [facility] [place] [facility] , [address] [place] [id number] 0 11/20 CBC w/ auto diff LY % % 14.0 41.0 23.4 FINAL Gio Lopez [place] [facility] , [address] [place] [id number] 0 11/20 CBC w/ auto diff MO % % 6.0 15.0 7.6 FINAL Gio Lopez [place] [facility] [place] [facility] , [address] [place] [id number] 0 11/20 CBC w/ auto diff EO % % 0.0 7.0 1.3 FINAL Gio Lopez [place] [facility] [place] [facility] , [address] [place] [id number] 0 11/20 CBC w/ auto diff BA % % 0.0 2.0 0.2 FINAL Gio Lopez [place] [facility] [place] [facility] , [address] [place] [id number] 0 11/20 CBC w/ auto diff LY # K/uL 0.4 3.6 1.4 FINAL Gio Lopez [place] [facility] [place] [facility] , [address] [place] [id number] 0 11/20 CBC w/ auto diff MO # K/uL 0.2 1.3 0.5 FINAL Gio Lopez [place] [facility] [place] [facility] , [address] [place] [id number] 0 11/20 CBC w/ auto diff EO # K/uL 0.0 0.6 0.1 FINAL G[facility] Lopez [place] [facility] [place] [facility] , [address] [place] [id number] 0 11/20 CBC w/ auto diff BA # K/uL 0.0 0.2 0.0 FINAL Gio Lopez [place] [facility] [place] [facility] , [address] [place] [id number] 0 11/20 CBC w/ auto diff NRBC % #/100W BC 0.0 0.2 0.0 FINAL Gio Lopez [place] [facility] [place] [facility] , [address] [place] [id number] 0 11/20 CBC w/ auto diff RBC M/uL 4.2 5.6 3.24 Low FINAL Gio Lopez [place] [facility] [place] [facility] , [address] [place] [id number] 0 11/20 CBC w/ auto diff HCT % 39.0 49.0 33.6 Low FINAL Gio Lopez [place] [facility] [place] [facility] , [address] [place] [id number] 0 11/20 CBC w/ auto diff MCV fL 80.0 104.0 103.7 FINAL Gio Lopez [place] [facility] [place] [facility] , [address] [place] [id number] 0 11/20 CBC w/ auto diff MCH pg 26.0 35.0 34.9 FINAL [facility] [place] [facility] [place] [facility] , [address] [place] [id number] 0 11/20 CBC w/ auto diff MCHC g/dL 30.0 35.0 33.6 FINAL [facility] [place] [facility] [place] [facility] , [address] [place] [id number] 0 11/20 CBC w/ auto diff MPV fL 9.5 13.4 10.2 FINAL [facility] [place] [facility] [place] [facility] , [address] [place] [id number] 0 11/20 CBC w/ auto diff RDW % 11.3 15.6 16.60 High FINAL [facility] [place] [facility] [place] [facility] , [address] [place] [id number] 0 11/20 Prote in/cr eatin ine ratio , rando m urine panel CREAT ININE , RANDO M URINE mg/dL 20.0 320.0 41 FINAL Gio VALDES, [employer] [address] [facility] [id number] 4 11/20 Prote in/cr eatin ine ratio , rando m urine panel PROTE IN/CR EATIN INE RATIO mg/gcr eat 25.0 148.0 3634 High FINAL Gio VALDES, [employer] [address] [facility] [id number] 4 11/20 Prote in/cr eatin ine ratio , rando m urine panel PROTE IN/CR EATIN INE RATIO mg/mgc reat 0.025 0.148 3.634 High FINAL Gio VALDES, [employer] [address] [facility] [id number] 4 11/20 Prote in/cr eatin ine ratio , rando m urine panel PROTE IN, TOTAL , RANDO M UR mg/dL 5.0 25.0 149 High FINAL Gio VALDES, [employer] [address] [facility] [id number] 4 Medications Date Name Route Dose Frequency [...] kidney disease Active Oropharyngeal dysphagia Active Other fpc (current) drug therapy Active Acute kidney failure [...] smoker. ??No significant alcohol use.?? Lives with in??[place].?He was in the [employer]??and served in [employer].?? They traveled to??[facility]??for the winter months. Vital Signs Blood pressure: 158/78, Pulse: 65, Temperature: 97.3 F, Respirations: 16, O2 sat: 96%, Pain Scale: 0, Height: 68 in, Weight: 164.2 lb, BSA: 1.88, BMI: 24.97 kg/m2 Covid-19 vaccine ([employer]) (05/21/2022); Covid-19 vaccine ([employer]) (06/01/2024); Covid-19 vaccine (Pf[employer]) (01/01/2022); Covid-19 vaccine [...] smoker. ??No significant alcohol use.?? Lives with in??[place].?He was in the [employer]??and served in [place].?? They traveled to??[facility]??for the winter months. Vital Signs Blood [...]
--- NOTE | 2024-12-31 11:57 | CRLHL7_ITS ---
For Patients: As a result of the Century Cures Act, medical imaging exams and procedure reports are released immediately into your electronic medical record. You may view this report before your referring provider. If you have questions, please contact your health care provider. INDICATION: Diffuse abdominal pain TECHNIQUE: CT abdomen and pelvis acquired with 100 cc Omnipaque 350 IV contrast. COMPARISON: None. FINDINGS: Lower chest: Right lower lobe masslike consolidation which is partially visualized measuring 2.8 x 2.7 cm. Dependent atelectasis. No basilar effusion. No hiatal hernia. Liver: Right hepatic lobe subcapsular hypodense lesion measuring 1.1 x 1.1 cm with Hounsfield unit of 58 which is indeterminate (2/). Additional subcentimeter hypodensity in the left hepatic lobe which is too small to characterize (2/). Gallbladder and bile ducts: No stones or inflammation. No biliary dilatation. Pancreas: No mass or inflammation. No pancreatic ductal dilatation. Spleen: Normal in size. Subcentimeter hypodensity in the lower pole likely a tiny cyst or hemangioma. Adrenal glands: Unremarkable. Kidneys: Right kidney is surgically absent. Left kidney demonstrates normal parenchymal enhancement with no hydronephrosis or nephrolithiasis bilaterally. Renal cysts. Additional subcentimeter cortical hypodensities are too small to characterize, statistically cysts. GI tract: Cecum is markedly dilated and displaced in the upper left quadrant (4/37). There is twisting of the mesentery (whirl sign) in the right hemiabdomen (2/60 2-80). There is upstream dilation of the ileum measuring up to 3.2 cm (2/50). No pneumatosis, pneumoperitoneum or portal venous gas. Colon is decompressed. Sigmoid and colonic diverticulosis without diverticulitis. No pneumatosis, pneumoperitoneum or portal venous gas. Tiny fat containing umbilical hernia. Vasculature: Abdominal aorta is normal in caliber without aneurysm. Moderate atherosclerotic disease with calcified and noncalcified plaque. Proximal mesenteric vessels are patent. Twisting of the mesenteric vessels in the right hemiabdomen, as described above. Patent hepatic, portal, splenic and bilateral renal veins. Lymph nodes: No lymphadenopathy. Peritoneum/Abdominal Wall: Small volume pelvic ascites. Pelvis: Moderate prostatomegaly. Bones: No acute fracture. No aggressive appearing lytic or blastic osseous lesion. Diffuse osseous demineralization. Grade 1 anterolisthesis of L4 on L5. Moderate multilevel degenerative changes of the spine. IMPRESSION: 1. 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 No pneumatosis, pneumoperitoneum or portal venous gas. 2. Right lower lobe masslike consolidation which is partially visualized measuring 2.8 x 2.7 cm[address] a dedicated CT chest for further evaluation. 3. Small volume pelvic ascites. 4. Colonic diverticulosis without diverticulitis. 5. Subcapsular right hepatic lobe hypodense lesion measuring 1.1 x 1.1 cm with Hounsfield unit of 58 which is indeterminate. If clinically warranted, consider a nonemergent CT or MRI (liver mass protocol) for further evaluation. These findings were discussed with Dr. Edwards at 2:10 p.m. on December 31, 2024. Please note that all CT scans at this facility use dose modulation, iterative reconstruction, and/or weight-based dosing when appropriate to reduce radiation dose to as low as reasonably achievable. Dictated by Marvin Bartlett MD @ 12/31/2024 2:11:56 PM (Electronically Signed)
--- NOTE | 2024-12-31 12:05 | ED.GENADULT ---
HPI - General Adult General Chief complaint: Weakness Stated complaint: dizzy, blood in stool Time Seen by Provider: 12/31/24 11:49 Source: patient and family Mode of arrival: ambulatory Limitations: no limitations History of Present Illness HPI narrative: 79-year-old male presenting today with weakness, fatigue and lightheadedness. Patient states he has felt this way for 4 days. He states that when he stands up he feels lightheaded, denies vertiginous symptoms. No nausea or vomiting. No chest pain. He complains of feeling slightly short of breath, more so with any type of physical activity. He says he has abdominal cramping and dark stools for the last couple days as well. Patient is not on any blood thinners. He denies fevers or chills. His appetite has been down. Patient has history of renal cell carcinoma, hypertension, atrial fibrillation not on chronic anticoagulation, hypothyroidism, GERD, diabetes type 2-diet controlled. Related Data Home Medications ?Medication ?Instructions ?Recorded ?Confirmed acetaminophen 325 mg tablet 650 mg PO BID PRN 03/10/22 12/31/24 (Tylenol) lisinopril 20 mg tablet 20 mg PO DAILY 12/06/24 12/31/24 levothyroxine 112 mcg tablet 112 mcg PO DAILY 12/08/24 12/31/24 ondansetron HCl 8 mg tablet 8 mg PO TID PRN 12/08/24 12/31/24 cabozantinib 20 mg tablet 40 mg PO DAILY 12/31/24 12/31/24 (Cabometyx) furosemide 40 mg tablet 80 mg PO DAILY 12/31/24 12/31/24 metoprolol tartrate 25 mg tablet 12.5 mg PO BID 12/31/24 12/31/24 omeprazole 20 mg capsule,delayed 20 mg PO DAILY 12/31/24 12/31/24 release Previous Rx's ?Medication ?Instructions ?Recorded hydrocortisone 2.5 % topical cream 1 applic IA BID-QID PRN 12/08/22 with perineal applicator hemorrhoids #3 ea (Proctosol HC) tamsulosin 0.4 mg capsule 0.4 mg PO DAILY #90 caps 03/20/24 diltiazem HCl 240 mg 240 mg PO DAILY #90 caps 05/23/24 capsule,extended release 24 hr Allergies Allergy/AdvReac Type Severity Reaction Status Date / Time metformin AdvReac Intermediate GI Upset Verified 12/31/24 11:39 mirtazapine AdvReac Intermediate other Verified 12/31/24 11:39 Sulfa Antibiotics Allergy Mild Hives Uncoded 12/08/24 14:35 Review of Systems Status of ROS: Reports: 10 or more systems reviewed and unremarkable except as noted in History and below [facility] Medical History Atrial fibrillation ?I48.91 - Unspecified atrial fibrillation (ICD-10) Malignant neoplasm of right kidney ?C64.1 - Malignant neoplasm of right kidney, except renal pelvis (ICD-10) Back pain ?M54.9 - Dorsalgia, unspecified (ICD-10) PSA elevation ?R97.20 - Elevated prostate specific antigen [PSA] (ICD-10) Hemorrhoids ?K64.9 - Unspecified hemorrhoids (ICD-10) Renal mass, right ?N28.89 - Other specified disorders of kidney and ureter (ICD-10) Hyperglycemia ?R73.9 - Hyperglycemia, unspecified (ICD-10) Epidermoid cyst of neck ?L72.0 - Epidermal cyst (ICD-10) Degeneration of intervertebral disc of lumbar region ?M51.36 - Other intervertebral disc degeneration, lumbar region (ICD-10) Abdominal pain ?R10.9 - Unspecified abdominal pain (ICD-10) Surgical History History of nephrectomy, right ?Z90.5 - Acquired absence of kidney (ICD-10) History of rotator cuff surgery ?Z98.890 - Other specified postprocedural states (ICD-10) History of colonoscopy ?Z98.890 - Other specified postprocedural states (ICD-10) History of bilateral inguinal hernia repair ?Z98.890 - Other specified postprocedural states (ICD-10) ?Z87.19 - Personal history of other diseases of the digestive system (ICD-10) Family History Family/Other Type 1 diabetes mellitus Type 2 diabetes mellitus Mother Diverticulitis of colon Rheumatoid arthritis Father Prostate cancer Other Encounter for annual physical exam Encounter for pre-operative examination Non-alcoholic fatty liver disease Social History Narrative: Non-smoker rare alcohol. 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 Alert and oriented x3. Answers questions appropriately. Mood and affect are appropriate. Thoughts are goal oriented and rational. No tangential or magical thinking noted. Patient speaks in full sentences without needing to catch his breath. HEENT: Normocephalic atraumatic. Pupils are equally round reactive to light. Extraocular muscles are intact. Conjunctivae are moist without any icterus noted. Moist mucous membranes. Cardiovascular: Heart is bradycardic, distant. Lungs: Clear to auscultation bilaterallly. Abdomen: Soft and nondistended with normal bowel sounds. Very mild diffuse discomfort, worse in the lower abdomen. Extremities: Bilateral lower extremities show trace to 1+ edema. Skin: Well perfused. Warm, dry. Const: Vital Signs, click to edit/add: Vital Signs - 24 hr 12/31/24 11:34 12/31/24 11:47 12/31/24 11:48 Temperature 97.2 F L Pulse Rate 58 L 59 L Pulse Rate [Right Pulse Oximeter] 66 Pulse Rate [orthos tatic lying] Pulse Rate [orthos tatic sitting] Pulse Rate [orthos tatic standing] Respiratory Rate 18 Blood Pressure 141/78 H Blood Pressure [Ri ght Upper Arm] 94/58 L Blood Pressure [or thostatic lying] Blood Pressure [or thostatic sitting] Blood Pressure [or thostatic standing ] Pulse Oximetry 98 98 97 Oxygen Delivery Me thod Room Air 12/31/24 11:57 12/31/24 12:00 12/31/24 12:02 Temperature Pulse Rate 60 58 L Pulse Rate [Right Pulse Oximeter] Pulse Rate [orthos tatic lying] Pulse Rate [orthos tatic sitting] Pulse Rate [orthos tatic standing] Respiratory Rate Blood Pressure 112/70 Blood Pressure [Ri ght Upper Arm] Blood Pressure [or thostatic lying] Blood Pressure [or thostatic sitting] Blood Pressure [or thostatic standing ] Pulse Oximetry 98 97 96 Oxygen Delivery Me thod 12/31/24 12:03 12/31/24 12:24 12/31/24 12:25 Temperature Pulse Rate 58 L 57 L 63 Pulse Rate [Right Pulse Oximeter] Pulse Rate [orthos tatic lying] Pulse Rate [orthos tatic sitting] Pulse Rate [orthos tatic standing] Respiratory Rate Blood Pressure 99/65 91/60 Blood Pressure [Ri ght Upper Arm] Blood Pressure [or thostatic lying] Blood Pressure [or thostatic sitting] Blood Pressure [or thostatic standing ] Pulse Oximetry 95 95 93 Oxygen Delivery Me thod 12/31/24 12:27 12/31/24 12:27 12/31/24 12:28 Temperature Pulse Rate 62 56 L Pulse Rate [Right Pulse Oximeter] Pulse Rate [orthos tatic lying] 58 L Pulse Rate [orthos tatic sitting] 64 Pulse Rate [orthos tatic standing] 74 Respiratory Rate Blood Pressure 71/49 L Blood Pressure [Ri ght Upper Arm] Blood Pressure [or thostatic lying] 99/65 Blood Pressure [or thostatic sitting] 91/60 Blood Pressure [or thostatic standing ] 71/49 L Pulse Oximetry 96 96 Oxygen Delivery Me thod 12/31/24 12:30 12/31/24 12:32 12/31/24 12:45 Temperature Pulse Rate 56 L 56 L 57 L Pulse Rate [Right Pulse Oximeter] Pulse Rate [orthos tatic lying] Pulse Rate [orthos tatic sitting] Pulse Rate [orthos tatic standing] Respiratory Rate Blood Pressure 123/67 Blood Pressure [Ri ght Upper Arm] Blood Pressure [or thostatic lying] Blood Pressure [or thostatic sitting] Blood Pressure [or thostatic standing ] Pulse Oximetry 96 96 96 Oxygen Delivery Me thod 12/31/24 12:47 12/31/24 14:10 Temperature 97.0 F L Pulse Rate 56 L Pulse Rate [Right Pulse Oximeter] 53 L Pulse Rate [orthos tatic lying] Pulse Rate [orthos tatic sitting] Pulse Rate [orthos tatic standing] Respiratory Rate 18 Blood Pressure 108/68 Blood Pressure [Ri ght Upper Arm] 119/60 Blood Pressure [or thostatic lying] Blood Pressure [or thostatic sitting] Blood Pressure [or thostatic standing ] Pulse Oximetry 94 96 Oxygen Delivery Me thod Room Air Course Course ED Course: Patient showing evidence of orthostatic hypotension with a 20 point drop in systolic blood pressure upon standing. IV was established and 1 L over 2 hours was ordered. EKG, read by me, shows sinus bradycardia with a pulse of 59, incomplete right bundle-branch block and a first-degree AV block. CBC showed mild anemia with hemoglobin of 12. Normal lactate. Sodium is low at 122, chloride 92. BUN 28, creatinine elevated at 1.7. Scalp some low 7.8. LFTs unremarkable. BNP 718. Total protein and albumin both low at 5.2 and 2.7 respectively. Normal lipase. Normal pro calcitonin. UA showing 2+ protein. Negative influenza and COVID. 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 Did speak to Dr. Peñaloza who will take the patient to the OR and then he will be admitted for further management. Of note did discuss with patient the lesion on the lung and liver, patient states that he has been told about these things in the past. Patient just had a head CT body from the skull base to the mid thigh done on 12/18/2024 that noted a broadly stable subpleural nodule located between the right 5th and 6th intercostal space region and lesion in the hepatic lobe. Vital Signs Vital signs: Initial Vital Signs Temperature 97.2 F L 12/31/24 11:34 Temperature Source Temporal Artery Scan 12/31/24 11:34 Pulse Rate 66 12/31/24 11:34 Pulse Rhythm Regular 12/31/24 11:34 Pulse Strength 3+ Normal 12/31/24 11:34 Respiratory Rate 18 12/31/24 11:34 Blood Pressure 94/58 L 12/31/24 11:34 Blood Pressure Mean 70 12/31/24 11:34 Blood Pressure Position Sitting 12/31/24 11:34 Pulse Oximetry 98 12/31/24 11:34 Oxygen Delivery Method Room Air 12/31/24 11:34 Vital Signs Temperature 97.2 F L 12/31/24 11:34 Pulse Rate 66 12/31/24 11:34 Respiratory Rate 18 12/31/24 11:34 Blood Pressure 94/58 L 12/31/24 11:34 Pulse Oximetry 98 12/31/24 11:34 Oxygen Delivery Method Room Air 12/31/24 11:34 Temperature 97.0 F L 12/31/24 14:10 Pulse Rate 53 L 12/31/24 14:10 Respiratory Rate 18 12/31/24 14:10 Blood Pressure 119/60 12/31/24 14:10 Pulse Oximetry 96 12/31/24 14:10 Oxygen Delivery Method Room Air 12/31/24 14:10 Medications Administered Medications: Discontinued Medications Generic Name Dose Route Start Last Admin Trade Name Freq PRN Reason Stop Dose Admin Sodium Chloride 1,000 mls @ 500 mls/hr 12/31/24 12:42 12/31/24 14:34 0.9 % Sodium Chloride 1000 Ml IV 12/31/24 14:41 Infused .Q2H TISH Infusion Medical Decision Making MDM Narrative Medical decision making narrative: 79-year-old male presenting with abdominal cramping and dark stools. 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 Patient will be admitted. Lab Data Lab results reviewed: Yes I reviewed the patient's lab results Labs: Lab Results 12/31/24 12/31/24 Range/Units 12:10 13:06 WBC 6.76 (4.50-11.00) K/uL RBC 3.42 L (4.30-5.90) m/uL Hgb 12.0 L (13.5-17.5) gm/dL Hct 35.6 L (37.0-53.0) % MCV 104 H (80-100) fL MCH 35 H (26-34) pg MCHC 34 (32-36) gm/dL RDW Coeff of Dorie 13.9 (11.5-15.5) % Plt Count 174 (140-440) K/uL Neut % (Auto) 73.6 H (42.0-72.0) % Lymph % (Auto) 20.9 (20-44) % Brooke % (Auto) 5.0 (0.0-11.0) % Eos % (Auto) 0.4 (0.0-7.0) % Baso % (Auto) 0.1 (0.0-3.0) % Neut # (Auto) 5.00 (1.7-7.0) K/uL Lymph # (Auto) 1.41 (0.90-2.90) K/uL Brooke # (Auto) 0.30 (0.00-0.90) K/UL Eos # (Auto) 0.03 (0.00-0.50) K/uL Baso # (Auto) 0.01 (0.00-0.30) K/uL Abs Immat Gran (auto) 0.00 (0.00-0.30) K/uL Imm/Tot Granulo (auto) 0.0 % Sodium 122 L* (135-149) mmol/L Potassium 4.6 (3.6-5.1) mmol/L Chloride 92 L (96-114) mmol/L Carbon Dioxide 28 (20-32) mmol/L Anion Gap 2 L (7-15) mEq/L BUN 28 (7-30) mg/dL Creatinine 1.7 H (0.5-1.5) mg/dL Estimated Creat Clear 33.35 Estimated GFR 40 ml/min Glucose 123 H (60-115) mg/dL Lactate 1.8 (0.5-1.9) mmol/L Calcium 7.8 L (8.4-10.6) mg/dL Magnesium 1.5 (1.5-2.6) mg/dL Total Bilirubin 0.5 (0.1-1.5) mg/dL Direct Bilirubin 0.3 (0.0-0.5) mg/dL AST 38 H (12-35) U/L ALT 31 (4-50) U/L Alkaline Phosphatase 109 (40-150) U/L Troponin I < 0.01 (0.01-0.04) ng/mL C-Reactive Protein 0.9 (0.5-1.0) mg/dL NT-Pro-B Natriuret Pep 718 H (See Note) pg/mL Total Protein 5.2 L (6.0-8.3) g/dL Albumin 2.7 L (3.3-5.0) g/dL Lipase 159 (23-300) U/L Procalcitonin 0.13 (<0.50) ng/mL Urine Color Yellow (Yellow) Urine Appearance Clear (Clear) Urine pH 5.0 (5.0-8.5) Ur Specific Homer <= 1.005 (1.000-1.030) Urine Protein 2+ A (Negative) Urine Glucose (UA) Negative (Negative) Urine Ketones Negative (Negative) Urine Blood Negative (Negative) Urine Nitrite Negative (Negative) Urine Bilirubin Negative (Negative) Urine Urobilinogen 0.2 (0.2-1.0) Ur Leukocyte Esterase Negative (Negative) Urine RBC 0-2 (0-2) Urine WBC 0-2 (0-5) Ur Squamous Epith Cells Few (None-Few) Urine Bacteria None (None) SARS-CoV-2 (PCR) Negative SARS-CoV-2 (Negative) Influenza Type A (PCR) Negative PCR FLU A (Negative) Influenza Type B (PCR) Negative PCR FLU B (Negative) Imaging Data Abdominal CT: Attestation: I have reviewed the pertinent imaging results. Radiologist's impression: TECHNIQUE: CT abdomen and pelvis acquired with 100 cc Omnipaque 350 IV contrast. COMPARISON: None. FINDINGS: Lower chest: Right lower lobe masslike consolidation which is partially visualized measuring 2.8 x 2.7 cm. Dependent atelectasis. No basilar effusion. No hiatal hernia. Liver: Right hepatic lobe subcapsular hypodense lesion measuring 1.1 x 1.1 cm with Hounsfield unit of 58 which is indeterminate (2/26). Additional subcentimeter hypodensity in the left hepatic lobe which is too small to characterize (2/27). Gallbladder and bile ducts: No stones or inflammation. No biliary dilatation. Pancreas: No mass or inflammation. No pancreatic ductal dilatation. Spleen: Normal in size. Subcentimeter hypodensity in the lower pole likely a tiny cyst or hemangioma. Adrenal glands: Unremarkable. Kidneys: Right kidney is surgically absent. Left kidney demonstrates normal parenchymal enhancement with no hydronephrosis or nephrolithiasis bilaterally. Renal cysts. Additional subcentimeter cortical hypodensities are too small to characterize, statistically cysts. GI tract: Cecum is markedly dilated and displaced in the upper left quadrant (4/37). There is twisting of the mesentery (whirl sign) in the right hemiabdomen (2/60 2-80). There is upstream dilation of the ileum measuring up to 3.2 cm (2/50). No pneumatosis, pneumoperitoneum or portal venous gas. Colon is decompressed. Sigmoid and colonic diverticulosis without diverticulitis. No pneumatosis, pneumoperitoneum or portal venous gas. Tiny fat containing umbilical hernia. Vasculature: Abdominal aorta is normal in caliber without aneurysm. Moderate atherosclerotic disease with calcified and noncalcified plaque. Proximal mesenteric vessels are patent. Twisting of the mesenteric vessels in the right hemiabdomen, as described above. Patent hepatic, portal, splenic and bilateral renal veins. Lymph nodes: No lymphadenopathy. Peritoneum/Abdominal Wall: Small volume pelvic ascites. Pelvis: Moderate prostatomegaly. Bones: No acute fracture. No aggressive appearing lytic or blastic osseous lesion. Diffuse osseous demineralization. Grade 1 anterolisthesis of L4 on L5. Moderate multilevel degenerative changes of the spine. IMPRESSION: 1. 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 No pneumatosis, pneumoperitoneum or portal venous gas. 2. Right lower lobe masslike consolidation which is partially visualized measuring 2.8 x 2.[address] chest for further evaluation. 3. Small volume pelvic ascites. 4. Colonic diverticulosis without diverticulitis. 5. Subcapsular right hepatic lobe hypodense lesion measuring 1.1 x 1.1 cm with Hounsfield unit of 58 which is indeterminate. If clinically warranted, consider a nonemergent CT or MRI (liver mass protocol) for further evaluation. ECG Data Attestation: I personally reviewed and interpreted this ECG as follows: Discharge Plan Discharge Clinical Impression: Cecal volvulus, Acute hyponatremia, Acute renal failure Patient Disposition: Admitted As Inpatient Condition: Guarded
--- OUTSIDE RECORDS SUMMARY | 2024-12-31 12:11 | XMS_ITS ---
Author Name Interface, [id number] lity Address [address] [facility] [address] [address] [facility] Address [address] [facility] [address] [address] Allergies and Adverse Reactions Medication/Group Name Reaction [...] 15 MIN 04/21/2024 APPOINTMENT TREATMENT 1 HR 04/21/2024 LABORDER TSH w/ reflex to free T4 04/21/2024 LABORDER CBC w/ auto diff 04/21/2024 LABORDER CMP 04/27/2024 LABORDER PET/CT scan, sku ll base/mid thigh 05/11/2024 LABORDER CBC w/ auto diff 05/11/2024 LABORDER TSH w/ reflex to free T4 05/11/2024 LABORDER CMP 06/01/2024 LABORDER CMP 06/01/2024 LABORDER CBC w/ auto diff 06/01/2024 LABORDER TSH w/ reflex to free T4 08/17/2024 LABORDER PET/CT scan, sku ll base/mid thigh 08/24/2024 LABORDER TSH w/ reflex to free T4 08/24/2024 LABORDER CBC w/ auto diff 08/24/2024 LABORDER CMP 09/14/2024 LABORDER CMP 09/14/2024 LABORDER TSH w/ reflex to free T4 09/14/2024 LABORDER CBC w/ auto diff 09/15/2024 LABORDER Protein/creatini ne ratio, random urine panel 09/15/2024 LABORDER Protein (dipstic k) panel 10/13/2024 LABORDER CMP 10/13/2024 LABORDER Protein/creatini ne ratio, random urine panel 10/13/2024 LABORDER TSH w/ reflex to free T4 10/13/2024 LABORDER CBC w/ auto diff 11/20/2024 LABORDER Protein/creatini ne ratio, random urine panel 11/20/2024 LABORDER TSH w/ reflex to free T4 11/20/2024 LABORDER CMP 11/20/2024 LABORDER CBC w/ auto diff 12/20/2024 LABORDER CBC w/ auto diff 12/20/2024 LABORDER Swallowing Study 12/20/2024 LABORDER CMP 12/20/2024 LABORDER PET/CT scan, sku ll base/mid thigh 12/20/2024 LABORDER Protein/creatini ne ratio, random urine panel 01/24/2025 LABORDER Protein (dipstic k) panel 01/24/2025 LABORDER CBC w/ auto diff 01/24/2025 LABORDER TSH w/ reflex to free T4 01/24/2025 LABORDER CMP 01/24/2025 LABORDER Protein/creatini ne ratio, random urine panel Reason for Visit OV 20 MIN Encounters Date Name 04/21/2024 Chronic kidney disea se 04/21/2024 Liver metastasis 04/21/2024 Oropharyngeal dyspha yanet 04/21/2024 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 04/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 Renal cell carcinoma (disorder) Immunizations Date Name Route Dose Instructions Refusal Reason Stat us Covid-19 vaccine (Pfizer) Diagnostic Results Date Type Test Units Lower Limit Upper Limit Result Flag Comments Status Ordered By Specimen Source Lab Address 04/21 CMP Album in g/dL 3.5 5.0 3.4 Low FINAL Gio John * [place] [facility], [address] [facility] [id number] 0 04/21 CMP Alkal ine phosp hatas e U/L 36.0 125.0 76 FINAL Gio John * [facility], [address] [facility] [id number] 0 04/21 CMP ALT/S GPT U/L 0.0 49.0 22 FINAL Gio John * [facility], [address] [facility] [id number] 0 04/21 CMP AST/S GOT U/L 17.0 59.0 32 FINAL Gio John * [place] [facility], [address] [facility] [id number] 0 04/21 CMP BUN mg/dL 9.0 20.0 21.0 High FINAL Gio John * [facility], [address] [facility] [id number] 0 04/21 CMP Calci um mg/dL 8.4 10.2 8.4 FINAL Gio Lopez * [place] [facility], [address] [facility] [id number] 0 04/21 CMP Chlor viola mmol/L 96.0 107.0 107 FINAL Gio [facility], [address] [facility] [id number] 0 04/21 CMP CO2 mmol/L 22.0 30.0 [...] 96 hour stability window. FINAL Gio Elizabeth [facility], [address] [facility] [id number] 0 04/21 CMP Creat inine mg/dL 0.66 1.25 1.40 High FINAL Gio Elizabeth [place] [facility], [address] [facility] [id number] 0 04/21 CMP GFR estim ate ml/min /1.73m ^2 50.9 Low GFR is calculate d using the CKD-EPI equation. FINAL Gio Elizabeth [place] [facility], [address] [facility] [id number] 0 04/21 CMP Gluco se mg/dL 74.0 100.0 157 High FINAL Gio Elizabeth [place] [facility], [address] [facility] [id number] 0 04/21 CMP Potas sium mmol/L 3.5 5.1 4.6 FINAL Gio Elizabeth [place] [facility], [address] [facility] [id number] 0 04/21 CMP Sodiu m mmol/L 137.0 145.0 139 FINAL Gio Lopez * [place] [facility], [address] [facility] [id number] 0 04/21 CMP Bilir ubin, total mg/dL 0.2 1.3 0.4 FINAL Gio Lopez * [place] [facility], [address] [facility] [id number] 0 04/21 CMP Total prote in g/dL 6.3 8.2 6.3 FINAL Gio Lopez * [place] [facility], [address] [facility] [id number] 0 04/21 CBC w/ auto diff WBC K/uL 3.0 8.9 4.6 FINAL [facility] - [place], [address] [place] [id number] 0 04/21 CBC w/ auto diff HGB g/dL 12.5 16.6 13.0 FINAL Gio [facility] - [place], [address] [place] [id number] 0 04/21 CBC w/ auto diff PLT K/uL 113.0 364.0 134 FINAL Gio [facility] - [place], [address] [place] [id number] 0 04/21 CBC w/ auto diff Plate let, immat ure, fract ion % 0.9 11.2 3.8 FINAL Gio [facility] - [place], [address] [place] [id number] 0 04/21 CBC w/ auto diff Tatyana # (ANC) K/uL 1.6 6.6 2.9 FINAL Gio [facility] - [place], [address] [place] [id number] 0 04/21 CBC w/ auto diff Tatyana % % 43.0 74.0 63.1 FINAL G[facility] - [place], [address] [place] [id number] 0 04/21 CBC w/ auto diff IG % % 0.0 0.5 0.4 FINAL G[facility] - [place], [address] [place] [id number] 0 04/21 CBC w/ auto diff IG # K/uL 0.0 0.03 0.02 FINAL G[facility] - [place], [address] [place] [id number] 0 04/21 CBC w/ auto diff LY % % 14.0 41.0 24.3 FINAL [facility] - [place], [address] [place] [id number] 0 04/21 CBC w/ auto diff MO % % 6.0 15.0 8.7 FINAL G[facility] - [place], [address] [place] [id number] 0 04/21 CBC w/ auto diff EO % % 0.0 7.0 3.3 FINAL [facility] - [place], [address] [place] [id number] 0 04/21 CBC w/ auto diff BA % % 0.0 2.0 0.2 FINAL [facility] - [place], [address] [place] [id number] 0 04/21 CBC w/ auto diff LY # K/uL 0.4 3.6 1.1 FINAL [facility] - [place], [address] [place] [id number] 0 04/21 CBC w/ auto diff MO # K/uL 0.2 1.3 0.4 FINAL G[facility] - [place], [address] [place] [id number] 0 04/21 CBC w/ auto diff EO # K/uL 0.0 0.6 0.2 FINAL [facility] - [place], [address] [place] [id number] 0 04/21 CBC w/ auto diff BA # K/uL 0.0 0.2 0.0 FINAL [facility] - [place], [address] [place] [id number] 0 04/21 CBC w/ auto diff NRBC % #/100W BC 0.0 0.2 0.0 FINAL [facility] - [place], [address] [place] [id number] 0 04/21 CBC w/ auto diff RBC M/uL 4.2 5.6 4.00 Low FINAL [facility] - [place], [address] [place] [id number] 0 04/21 CBC w/ auto diff HCT % 39.0 49.0 39.2 FINAL G[facility] - [place], [address] [place] [id number] 0 04/21 CBC w/ auto diff MCV fL 80.0 104.0 98.0 FINAL [facility] - [place], [address] [place] [id number] 0 04/21 CBC w/ auto diff MCH pg 26.0 35.0 32.5 FINAL G[facility] - [place], [address] [place] [id number] 0 04/21 CBC w/ auto diff MCHC g/dL 30.0 35.0 33.2 FINAL [facility] - [place], [address] [place] [id number] 0 04/21 CBC w/ auto diff MPV fL 9.5 13.4 10.6 FINAL [facility] - [place], [address] [place] [id number] 0 04/21 CBC w/ auto diff RDW % 11.3 15.6 12.80 FINAL [facility] - [place], [address] [place] [id number] 0 04/21 TSH w/ refle x to free T4 TSH uIU/mL 0.47 4.68 1.94 FINAL Gio Lopez * [place] [facility], [address] [facility] [id number] 0 05/11 TSH w/ refle x to free T4 TSH uIU/mL 0.47 4.68 1.98 FINAL Gio Lopez * [facility] , [address] [facility] [id number] 0 05/11 CMP Album in g/dL 3.5 5.0 3.7 FINAL Gio Lopez * [facility] , [address] [facility] [id number] 0 05/11 CMP Alkal ine phosp hatas e U/L 36.0 125.0 91 FINAL Gio Lopez * [facility] , [address] [facility] [id number] 0 05/11 CMP ALT/S GPT U/L 0.0 49.0 24 FINAL Gio Lopez * [facility] , [address] [facility] [id number] 0 05/11 CMP AST/S GOT U/L 17.0 59.0 35 FINAL Gio Lopez * [facility] , [address] [facility] [id number] 0 05/11 CMP BUN mg/dL 9.0 20.0 23.0 High FINAL Gio Lopez * [facility] , [address] [facility] [id number] 0 05/11 CMP Calci um mg/dL 8.4 10.2 8.6 FINAL Gio Lopez * [facility] , [address] [facility] [id number] 0 05/11 CMP Chlor viola mmol/L 96.0 107.0 108 High FINAL Gio Lopez * [facility] , [address] [facility] [id number] 0 05/11 CMP CO2 mmol/L 22.0 30.0 [...] hour stability window. FINAL Gio Lopez * [facility] , [address] [facility] [id number] 0 05/11 CMP Creat inine mg/dL 0.66 1.25 1.50 High FINAL Gio Lopez * [facility] , [address] [facility] [id number] 0 05/11 CMP GFR estim ate ml/min /1.73m ^2 46.8 Low GFR is calculate d using the CKD-EPI equation. FINAL Gio Lopez * [facility] , [address] [facility] [id number] 0 05/11 CMP Gluco se mg/dL 74.0 100.0 109 High FINAL Gio Lopez * [facility] , [address] [facility] [id number] 0 05/11 CMP Potas sium mmol/L 3.5 5.1 4.4 FINAL Gio Lopez * [facility] , [address] [facility] [id number] 0 05/11 CMP Sodiu m mmol/L 137.0 145.0 138 FINAL Gio Lopez * [facility] , [address] [facility] [id number] 0 05/11 CMP Bilir ubin, total mg/dL 0.2 1.3 0.4 FINAL Gio Lopez * [facility] , [address] [facility] [id number] 0 05/11 CMP Total prote in g/dL 6.3 8.2 6.5 FINAL Gio Lopez * [facility] , [address] [facility] [id number] 0 05/11 CBC w/ auto diff WBC K/uL 3.0 8.9 8.4 FINAL [facility] , [address] [facility] [id number] 0 05/11 CBC w/ auto diff HGB g/dL 12.5 16.6 13.0 FINAL Gio Lopez [place] [facility] [place] [facility] , [address] [place] [id number] 0 05/11 CBC w/ auto diff PLT K/uL 113.0 364.0 156 FINAL Gio Lopez [place] [facility] [place] [facility] , [address] [place] [id number] 0 05/11 CBC w/ auto diff Tatyana # (ANC) K/uL 1.6 6.6 6.2 FINAL Gio Lopez [place] [facility] [place] [facility] , [address] [place] [id number] 0 05/11 CBC w/ auto diff Tatyana % % 43.0 74.0 72.8 FINAL Gio Lopez [place] [facility] [place] [facility] , [address] [place] [id number] 0 05/11 CBC w/ auto diff IG % % 0.0 0.5 0.4 FINAL Gio Lopez [place] [facility] [place] [facility] , [address] [place] [id number] 0 05/11 CBC w/ auto diff IG # K/uL 0.0 0.03 0.03 FINAL Gio Lopez [place] [facility] [place] [facility] , [address] [place] [id number] 0 05/11 CBC w/ auto diff LY % % 14.0 41.0 19.2 FINAL Gio Lopez [place] [facility] [place] [facility] , [address] [place] [id number] 0 05/11 CBC w/ auto diff MO % % 6.0 15.0 5.7 Low FINAL Gio Lopez [place] [facility] [place] [facility] , [address] [place] [id number] 0 05/11 CBC w/ auto diff EO % % 0.0 7.0 1.7 FINAL Gio Lopez [place] [facility] [place] [facility] , [address] [place] [id number] 0 05/11 CBC w/ auto diff BA % % 0.0 2.0 0.2 FINAL Gio Lopez [place] [facility] [place] [facility] , [address] [place] [id number] 0 05/11 CBC w/ auto diff LY # K/uL 0.4 3.6 1.6 FINAL Gio Lopez [place] [facility] [place] [facility] , [address] [place] [id number] 0 05/11 CBC w/ auto diff MO # K/uL 0.2 1.3 0.5 FINAL Gio Lopez [place] [facility] [place] [facility] , [address] [place] [id number] 0 05/11 CBC w/ auto diff EO # K/uL 0.0 0.6 0.1 FINAL Gio Lopez [place] [facility] [place] [facility] , [address] [place] [id number] 0 05/11 CBC w/ auto diff BA # K/uL 0.0 0.2 0.0 FINAL Gio Lopez [place] [facility] [place] [facility] , [address] [place] [id number] 0 05/11 CBC w/ auto diff NRBC % #/100W BC 0.0 0.2 0.0 FINAL Gio Lopez [place] [facility] [place] [facility] , [address] [place] [id number] 0 05/11 CBC w/ auto diff RBC M/uL 4.2 5.6 4.05 Low FINAL Gio Lopez [place] [facility] [place] [facility] , [address] [place] [id number] 0 05/11 CBC w/ auto diff HCT % 39.0 49.0 39.6 FINAL Gio Lopez [place] [facility] [place] [facility] , [address] [place] [id number] 0 05/11 CBC w/ auto diff MCV fL 80.0 104.0 97.8 FINAL Gio Lopez [place] [facility] [place] [facility] , [address] [place] [id number] 0 05/11 CBC w/ auto diff MCH pg 26.0 35.0 32.1 FINAL Gio Lopez [place] [facility] [place] [facility] , [address] [place] [id number] 0 05/11 CBC w/ auto diff MCHC g/dL 30.0 35.0 32.8 FINAL Gio Lopez [place] [facility] [place] [facility] , [address] [place] [id number] 0 05/11 CBC w/ auto diff MPV fL 9.5 13.4 10.1 FINAL Gio Lopez [place] [facility] [place] [facility] , [address] [place] [id number] 0 05/11 CBC w/ auto diff RDW % 11.3 15.6 12.80 FINAL Gio Lopez [place] [facility] [place] [facility] , [address] [place] [id number] 0 06/01 TSH w/ refle x to free T4 TSH uIU/mL 0.47 4.68 3.67 FINAL Gio Lopez * [facility] [place] [facility] , [address] [facility] [id number] 0 06/01 CBC w/ auto diff WBC K/uL 3.0 8.9 5.2 FINAL Gio Lopez [place] [facility] [place] [facility] , [address] [place] [id number] 0 06/01 CBC w/ auto diff HGB g/dL 12.5 16.6 13.8 FINAL Gio Lopez [place] [facility] [place] [facility] , [address] [place] [id number] 0 06/01 CBC w/ auto diff PLT K/uL 113.0 364.0 141 FINAL Gio Lopez [place] [facility] [place] [facility] , [address] [place] [id number] 0 06/01 CBC w/ auto diff Tatyana # (ANC) K/uL 1.6 6.6 3.6 FINAL Gio Lopez [place] [facility] [place] [facility] , [address] [place] [id number] 0 06/01 CBC w/ auto diff Tatyana % % 43.0 74.0 68.3 FINAL Gio Lopez [place] [facility] [place] [facility] , [address] [place] [id number] 0 06/01 CBC w/ auto diff IG % % 0.0 0.5 0.4 FINAL Gio Lopez [place] [facility] [place] [facility] , [address] [place] [id number] 0 06/01 CBC w/ auto diff IG # K/uL 0.0 0.03 0.02 FINAL Gio Lopez [place] [facility] [place] [facility] , [address] [place] [id number] 0 06/01 CBC w/ auto diff LY % % 14.0 41.0 20.9 FINAL Gio Lopez [place] [facility] [place] [facility] , [address] [place] [id number] 0 06/01 CBC w/ auto diff MO % % 6.0 15.0 7.3 FINAL Gio Lopez [place] [facility] [place] [facility] , [address] [place] [id number] 0 06/01 CBC w/ auto diff EO % % 0.0 7.0 2.7 FINAL Gio Lopez [place] [facility] [place] [facility] , [address] [place] [id number] 0 06/01 CBC w/ auto diff BA % % 0.0 2.0 0.4 FINAL Gio Lopez [place] [facility] [place] [facility] , [address] [place] [id number] 0 06/01 CBC w/ auto diff LY # K/uL 0.4 3.6 1.1 FINAL Gio Lopez [place] [facility] [place] [facility] , [address] [place] [id number] 0 06/01 CBC w/ auto diff MO # K/uL 0.2 1.3 0.4 FINAL Gio Lopez [place] [facility] , [address] [place] [id number] 0 06/01 CBC w/ auto diff EO # K/uL 0.0 0.6 0.1 FINAL Gio Lopez [place] [facility] , [address] [place] [id number] 0 06/01 CBC w/ auto diff BA # K/uL 0.0 0.2 0.0 FINAL Gio Lopez [place] [facility] , [address] [place] [id number] 0 06/01 CBC w/ auto diff NRBC % #/100W BC 0.0 0.2 0.0 FINAL Gio Lopez [place] [facility] [place] [facility] , [address] [place] [id number] 0 06/01 CBC w/ auto diff RBC M/uL 4.2 5.6 4.22 FINAL Gio Lopez [place] [facility] [place] [facility] , [address] [place] [id number] 0 06/01 CBC w/ auto diff HCT % 39.0 49.0 41.1 FINAL Gio Lopez [place] [facility] , [address] [place] [id number] 0 06/01 CBC w/ auto diff MCV fL 80.0 104.0 97.4 FINAL Gio Lopez [place] [facility] [place] [facility] , [address] [place] [id number] 0 06/01 CBC w/ auto diff MCH pg 26.0 35.0 32.7 FINAL Gio Lopez [place] [facility] [place] [facility] , [address] [place] [id number] 0 06/01 CBC w/ auto diff MCHC g/dL 30.0 35.0 33.6 FINAL Gio Lopez [place] [facility] [place] [facility] , [address] [place] [id number] 0 06/01 CBC w/ auto diff MPV fL 9.5 13.4 9.9 FINAL Gio Lopez [place] [facility] , [address] [place] [id number] 0 06/01 CBC w/ auto diff RDW % 11.3 15.6 13.20 FINAL Gio Lopez [place] [facility] [place] [facility] , [address] [place] [id number] 0 06/01 CMP Album in g/dL 3.5 5.0 3.7 FINAL Gio Lopez * [facility] , [address] [facility] [id number] 0 06/01 CMP Alkal ine phosp hatas e U/L 36.0 125.0 89 FINAL Gio Lopez * [facility] , [address] [facility] [id number] 0 06/01 CMP ALT/S GPT U/L 0.0 49.0 25 FINAL Gio Lopez * [facility] , [address] [facility] [id number] 0 06/01 CMP AST/S GOT U/L 17.0 59.0 35 FINAL Gio Lopez * [facility] , [address] [facility] [id number] 0 06/01 CMP BUN mg/dL 9.0 20.0 21.0 High FINAL Gio Lopez * [facility] , [address] [facility] [id number] 0 06/01 CMP Calci um mg/dL 8.4 10.2 8.5 FINAL Gio Lopez * [facility] , [address] [facility] [id number] 0 06/01 CMP Chlor viola mmol/L 96.0 107.0 108 High FINAL Gio Lopez * [facility] , [address] [facility] [id number] 0 06/01 CMP CO2 mmol/L 22.0 30.0 [...] hour stability window. FINAL Gio Lopez * [facility] , [address] [facility] [id number] 0 06/01 CMP Creat inine mg/dL 0.66 1.25 1.40 High FINAL Gio Lopez * [facility] , [address] [facility] [id number] 0 06/01 CMP GFR estim ate ml/min /1.73m ^2 50.8 Low GFR is calculate d using the CKD-EPI equation. FINAL Gio Lopez * [facility] , [address] [facility] [id number] 0 06/01 CMP Gluco se mg/dL 74.0 100.0 123 High FINAL Gio Lopez * [facility] , [address] [facility] [id number] 0 06/01 CMP Potas sium mmol/L 3.5 5.1 4.2 FINAL Gio Lopez * [facility] , [address] [facility] [id number] 0 06/01 CMP Sodiu m mmol/L 137.0 145.0 139 FINAL Gio Lopez * [facility] , [address] [facility] [id number] 0 06/01 CMP Bilir ubin, total mg/dL 0.2 1.3 0.4 FINAL Gio Lopez * [facility] , [address] [facility] [id number] 0 06/01 CMP Total prote in g/dL 6.3 8.2 6.1 Low FINAL Gio Lopez * [facility] , [address] [facility] [id number] 0 06/08 [facility] other lab See fulfillment representative d 08/24 TSH w/ refle x to free T4 TSH uIU/mL 0.47 4.68 0.82 FINAL Gio Lopez * [facility] , [address] [facility] [id number] 0 08/24 CMP Album in g/dL 3.5 5.0 3.4 Low FINAL Gio Lopez * [facility] , [address] [facility] [id number] 0 08/24 CMP Alkal ine phosp hatas e U/L 36.0 125.0 110 FINAL Gio Lopez * [facility] , [address] [facility] [id number] 0 08/24 CMP ALT/S GPT U/L 0.0 49.0 27 FINAL Gio Lopez * [facility] , [address] [facility] [id number] 0 08/24 CMP AST/S GOT U/L 17.0 59.0 38 FINAL Gio Lopez * [facility] , [address] [facility] [id number] 0 08/24 CMP BUN mg/dL 9.0 20.0 29.0 High FINAL Gio Lopez * [facility] , [address] [facility] [id number] 0 08/24 CMP Calci um mg/dL 8.4 10.2 8.2 Low FINAL Gio Lopez * [facility] , [address] [facility] [id number] 0 08/24 CMP Chlor viola mmol/L 96.0 107.0 104 FINAL Gio Lopez * [facility] , [address] [facility] [facility] [id number] 0 08/24 CMP CO2 mmol/L 22.0 30.0 [...] 96 hour stability window. FINAL Gio Elizabeth [facility] , [address] [facility] [address] [id number] 0 08/24 CMP Creat inine mg/dL 0.66 1.25 1.60 High FINAL Gio Elizabeth [facility] , [address] [facility] [address] [id number] 0 08/24 CMP GFR estim ate ml/min /1.73m ^2 43.2 Low GFR is calculate d using the CKD-EPI equation. FINAL [facility] , [address] [id number] 0 08/24 CMP Gluco se mg/dL 74.0 100.0 175 High FINAL [facility] , [address] [id number] 0 08/24 CMP Potas sium mmol/L 3.5 5.1 3.8 FINAL Gio Lopez * [facility] , [address] [facility] [address] [id number] 0 08/24 CMP Sodiu m mmol/L 137.0 145.0 137 FINAL Gio Elizabeth [facility] , [address] [id number] 0 08/24 CMP Bilir ubin, total mg/dL 0.2 1.3 0.6 FINAL Gio Lopez * [place] [place] [facility] , [address] [facility] [id number] 0 08/24 CMP Total prote in g/dL 6.3 8.2 5.9 Low FINAL Gio Lopez * [facility] [place] [facility] , [address] [facility] [id number] 0 08/24 CBC w/ auto diff WBC K/uL 3.0 8.9 5.5 FINAL Gio Lopez [place] [facility] , [address] [place] [facility] [id number] 0 08/24 CBC w/ auto diff HGB g/dL 12.5 16.6 13.6 FINAL Gio oLpez [place] [facility] , [address] [place] [facility] [id number] 0 08/24 CBC w/ auto diff PLT K/uL 113.0 364.0 158 FINAL Gio Lopez [place] [facility] , [address] [place] [facility] [id number] 0 08/24 CBC w/ auto diff Tatyana # (ANC) K/uL 1.6 6.6 3.8 FINAL Gio Lopez [place] [facility] , [address] [place] [id number] 0 08/24 CBC w/ auto diff Tatyana % % 43.0 74.0 69.2 FINAL Gio Lopez [place] [facility] , [address] [place] [facility] [id number] 0 08/24 CBC w/ auto diff IG % % 0.0 0.5 0.4 FINAL Gio Lopez [place] [facility] , [address] [place] [id number] 0 08/24 CBC w/ auto diff IG # K/uL 0.0 0.03 0.02 FINAL Gio Lopez [place] [facility] , [address] [place] [id number] 0 08/24 CBC w/ auto diff LY % % 14.0 41.0 20.6 FINAL Gio Lopez [place] [facility] , [address] [place] [id number] 0 08/24 CBC w/ auto diff MO % % 6.0 15.0 7.9 FINAL Gio Lopez [place] [facility] , [address] [place] [id number] 0 08/24 CBC w/ auto diff EO % % 0.0 7.0 1.7 FINAL Gio Lopez [place] [facility] , [address] [place] [id number] 0 08/24 CBC w/ auto diff BA % % 0.0 2.0 0.2 FINAL Gio Lopez [place] [facility] , [address] [place] [id number] 0 08/24 CBC w/ auto diff LY # K/uL 0.4 3.6 1.1 FINAL Gio Lopez [place] [facility] , [address] [place] [id number] 0 08/24 CBC w/ auto diff MO # K/uL 0.2 1.3 0.4 FINAL Gio Lopez [place] [facility] , [address] [place] [id number] 0 08/24 CBC w/ auto diff EO # K/uL 0.0 0.6 0.1 FINAL Gio Lopez [place] [facility] , [address] [place] [id number] 0 08/24 CBC w/ auto diff BA # K/uL 0.0 0.2 0.0 FINAL Gio Lopez [place] [facility] , [address] [place] [id number] 0 08/24 CBC w/ auto diff NRBC % #/100W BC 0.0 0.2 0.0 FINAL Gio Lopez [place] [facility] , [address] [place] [id number] 0 08/24 CBC w/ auto diff RBC M/uL 4.2 5.6 4.08 Low FINAL Gio Lopez [place] [facility] , [address] [place] [id number] 0 08/24 CBC w/ auto diff HCT % 39.0 49.0 41.1 FINAL Gio Lopez [place] [facility] , [address] [place] [id number] 0 08/24 CBC w/ auto diff MCV fL 80.0 104.0 100.7 FINAL Gio Lopez [place] [facility] , [address] [place] [id number] 0 08/24 CBC w/ auto diff MCH pg 26.0 35.0 33.3 FINAL Gio Lopez [place] [facility] , [address] [place] [id number] 0 08/24 CBC w/ auto diff MCHC g/dL 30.0 35.0 33.1 FINAL Goi Lopez [place] [facility] , [address] [place] [id number] 0 08/24 CBC w/ auto diff MPV fL 9.5 13.4 10.7 FINAL [facility] , [address] [facility] [address] [facility] [id number] 0 08/24 CBC w/ auto diff RDW % 11.3 15.6 13.00 FINAL Gio Lopez [facility] , [address] [facility] [facility] [id number] 0 09/14 TSH w/ refle x to free T4 TSH uIU/mL 0.47 4.68 0.68 FINAL Gio Lopez * [facility] , [address] [facility] [id number] 0 09/14 CMP GFR estim ate ml/min /1.73m ^2 40.2 Low GFR is calculate d using the CKD-EPI equation. FINAL Gio Lopez * [facility] , [address] [facility] [id number] 0 09/14 CMP Gluco se mg/dL 74.0 100.0 106 High FINAL Gio Lopez * [facility] , [address] [facility] [id number] 0 09/14 CMP Potas sium mmol/L 3.5 5.1 4.7 FINAL Gio Lopez * [facility] , [address] [facility] [id number] 0 09/14 CMP Sodiu m mmol/L 137.0 145.0 135 Low FINAL Gio Lopez * [facility] , [address] [facility] [id number] 0 09/14 CMP Bilir ubin, total mg/dL 0.2 1.3 0.3 FINAL Gio Lopez * [facility] , [address] [facility] [id number] 0 09/14 CMP Total prote in g/dL 6.3 8.2 5.6 Low FINAL Gio Lopez * [facility] , [address] [facility] [id number] 0 09/14 CMP Album in g/dL 3.5 5.0 3.2 Low FINAL Gio John * [facility] , [address] [facility] [id number] 0 09/14 CMP Alkal ine phosp hatas e U/L 36.0 125.0 110 FINAL Gio John * [facility] , [address] [facility] [id number] 0 09/14 CMP ALT/S GPT U/L 0.0 49.0 36 FINAL Gio Lopez * [facility] , [address] [facility] [id number] 0 09/14 CMP AST/S GOT U/L 17.0 59.0 55 FINAL Gio John * [facility] , [address] [facility] [id number] 0 09/14 CMP BUN mg/dL 9.0 20.0 27.0 High FINAL Gio John * [facility] , [address] [facility] [id number] 0 09/14 CMP Calci um mg/dL 8.4 10.2 7.7 Low FINAL Gio Lopez * [facility] , [address] [facility] [id number] 0 09/14 CMP Chlor viola mmol/L 96.0 107.0 104 FINAL Gio John * [facility] , [address] [facility] [id number] 0 09/14 CMP CO2 mmol/L 22.0 30.0 [...] hour stability window. FINAL Gio Lopez * [facility] , [address] [facility] [id number] 0 09/14 CMP Creat inine mg/dL 0.66 1.25 1.70 High FINAL Gio Lopez * [facility] , [address] [facility] [id number] 0 09/14 CBC w/ auto diff WBC K/uL 3.0 8.9 6.8 FINAL Gio Lopez [place] [facility] , [address] [place] [id number] 0 09/14 CBC w/ auto diff HGB g/dL 12.5 16.6 13.5 FINAL Gio Lopez [place] [facility] , [address] [place] [id number] 0 09/14 CBC w/ auto diff PLT K/uL 113.0 364.0 148 FINAL Gio Lopez [place] [facility] , [address] [place] [id number] 0 09/14 CBC w/ auto diff Tatyana # (ANC) K/uL 1.6 6.6 4.3 FINAL Gio Lopez [place] [facility] , [address] [place] [id number] 0 09/14 CBC w/ auto diff Tatyana % % 43.0 74.0 62.9 FINAL Gio Lopez [place] [facility] , [address] [place] [id number] 0 09/14 CBC w/ auto diff IG % % 0.0 0.5 0.1 FINAL Gio Lopez [place] [facility] , [address] [place] [id number] 0 09/14 CBC w/ auto diff IG # K/uL 0.0 0.03 0.01 FINAL Gio Lopez [place] [facility] , [address] [place] [id number] 0 09/14 CBC w/ auto diff LY % % 14.0 41.0 30.0 FINAL Gio Lopez [place] [facility] , [address] [place] [id number] 0 09/14 CBC w/ auto diff MO % % 6.0 15.0 5.4 Low FINAL Gio Lopez [place] [facility] , [address] [place] [id number] 0 09/14 CBC w/ auto diff EO % % 0.0 7.0 1.3 FINAL Gio Lopez [place] [facility] , [address] [place] [id number] 0 09/14 CBC w/ auto diff BA % % 0.0 2.0 0.3 FINAL Gio Lopez [place] [facility] , [address] [place] [id number] 0 09/14 CBC w/ auto diff LY # K/uL 0.4 3.6 2.0 FINAL Gio Lopez [place] [facility] , [address] [place] [id number] 0 09/14 CBC w/ auto diff MO # K/uL 0.2 1.3 0.4 FINAL Gio Lopez [place] [facility] , [address] [place] [id number] 0 09/14 CBC w/ auto diff EO # K/uL 0.0 0.6 0.1 FINAL Gio Lopez [place] [facility] , [address] [place] [id number] 0 09/14 CBC w/ auto diff BA # K/uL 0.0 0.2 0.0 FINAL Gio Lopez [place] [facility] , [address] [place] [id number] 0 09/14 CBC w/ auto diff NRBC % #/100W BC 0.0 0.2 0.0 FINAL Gio Lopez [place] [facility] , [address] [place] [id number] 0 09/14 CBC w/ auto diff RBC M/uL 4.2 5.6 4.08 Low FINAL Gio Lopez [place] [facility] , [address] [place] [id number] 0 09/14 CBC w/ auto diff HCT % 39.0 49.0 40.3 FINAL Gio Lopez [place] [facility] , [address] [place] [id number] 0 09/14 CBC w/ auto diff MCV fL 80.0 104.0 98.8 FINAL Gio Lopez [place] [facility] , [address] [place] [id number] 0 09/14 CBC w/ auto diff MCH pg 26.0 35.0 33.1 FINAL Gio [place] [facility] , [address] [place] [id number] 0 09/14 CBC w/ auto diff MCHC g/dL 30.0 35.0 33.5 FINAL Gio [place] [facility] , [address] [place] [id number] 0 09/14 CBC w/ auto diff MPV fL 9.5 13.4 10.5 FINAL Gio [place] [facility] , [address] [place] [id number] 0 09/14 CBC w/ auto diff RDW % 11.3 15.6 13.30 FINAL Gio [place] [facility] , [address] [place] [id number] 0 09/15 Prote in (dips tick) panel Prote in (ua) 3+ Abnor mal FINAL Gio [place] [facility] , [address] [place] [id number] 0 09/15 Prote in/cr eatin ine ratio , mario m urine panel CREAT ININE , MARIO Barrientos URINE mg/dL 20.0 320.0 52 FINAL Gio VALDES, [facility] [address] [facility] [id number] 4 09/15 Prote in/cr eatin ine ratio , rando m urine panel PROTE IN/CR EATIN INE RATIO mg/gcr eat 25.0 148.0 6173 High FINAL Gio VALDES, [facility] [address] [place] [id number] 4 09/15 Prote in/cr eatin ine ratio , rando m urine panel PROTE IN/CR EATIN INE RATIO mg/mgc reat 0.025 0.148 6.173 High FINAL Gio VALDES, [facility] [address] [place] [id number] 4 09/15 Prote in/cr eatin ine ratio , rando m urine panel PROTE IN, TOTAL , RANDO M UR mg/dL 5.0 25.0 321 High Verified by repeat analysis. FINAL Gio VALDES, [facility] [address] [place] [id number] 4 10/13 CBC w/ auto diff WBC K/uL 3.0 8.9 4.2 FINAL Gio Lopez [place] [facility] , [address] [place] [id number] 0 10/13 CBC w/ auto diff HGB g/dL 12.5 16.6 12.3 Low FINAL Gio Lopez [place] [facility] , [address] [place] [id number] 0 10/13 CBC w/ auto diff PLT K/uL 113.0 364.0 162 FINAL Gio Lopez [place] [facility] , [address] [place] [id number] 0 10/13 CBC w/ auto diff Tatyana # (ANC) K/uL 1.6 6.6 2.0 FINAL Gio Lopez [place] [facility] , [address] [place] [id number] 0 10/13 CBC w/ auto diff Tatyana % % 43.0 74.0 46.9 FINAL Gio [place] [facility] , [address] [place] [id number] 0 10/13 CBC w/ auto diff IG % % 0.0 0.5 0.2 FINAL Gio Lopez [place] [facility] , [address] [place] [id number] 0 10/13 CBC w/ auto diff IG # K/uL 0.0 0.03 0.01 FINAL Gio Lopez [place] [facility] , [address] [place] [id number] 0 10/13 CBC w/ auto diff LY % % 14.0 41.0 43.1 High FINAL Gio Lopez [place] [facility] , [address] [place] [id number] 0 10/13 CBC w/ auto diff MO % % 6.0 15.0 6.9 FINAL Gio Lopez [place] [facility] , [address] [place] [id number] 0 10/13 CBC w/ auto diff EO % % 0.0 7.0 2.4 FINAL Gio Lopez [place] [facility] , [address] [place] [id number] 0 10/13 CBC w/ auto diff BA % % 0.0 2.0 0.5 FINAL Gio Lopez [place] [facility] , [address] [place] [id number] 0 10/13 CBC w/ auto diff LY # K/uL 0.4 3.6 1.8 FINAL Gio Lopez [place] [facility] , [address] [place] [id number] 0 10/13 CBC w/ auto diff MO # K/uL 0.2 1.3 0.3 FINAL Gio Lopez [place] [facility] , [address] [place] [id number] 0 10/13 CBC w/ auto diff EO # K/uL 0.0 0.6 0.1 FINAL Gio Lopez [place] [facility] , [address] [place] [id number] 0 10/13 CBC w/ auto diff BA # K/uL 0.0 0.2 0.0 FINAL Gio Lopez [place] [facility] , [address] [place] [id number] 0 10/13 CBC w/ auto diff NRBC % #/100W BC 0.0 0.2 0.0 FINAL Gio Lopez [place] [facility] , [address] [place] [id number] 0 10/13 CBC w/ auto diff RBC M/uL 4.2 5.6 3.70 Low FINAL Gio Lopez [place] [facility] , [address] [place] [id number] 0 10/13 CBC w/ auto diff HCT % 39.0 49.0 36.8 Low FINAL Gio Lopez [place] [facility] , [address] [place] [id number] 0 10/13 CBC w/ auto diff MCV fL 80.0 104.0 99.5 FINAL Gio oLpez [place] [facility] , [address] [place] [id number] 0 10/13 CBC w/ auto diff MCH pg 26.0 35.0 33.2 FINAL Gio Lopez [place] [facility] , [address] [place] [id number] 0 10/13 CBC w/ auto diff MCHC g/dL 30.0 35.0 33.4 FINAL Gio Lopez [place] [facility] , [address] [place] [id number] 0 10/13 CBC w/ auto diff MPV fL 9.5 13.4 10.4 FINAL Gio Lopez [facility] [place] [facility] , [address] [facility] [address] [place] [id number] 0 10/13 CBC w/ auto diff RDW % 11.3 15.6 15.20 FINAL Gio Lopez [facility] [place] [facility] , [address] [place] [id number] 0 10/13 CMP Album in g/dL 3.5 5.0 2.9 Low FINAL Gio Lopez * [facility] , [address] [facility] [id number] 0 10/13 CMP Alkal ine phosp hatas e U/L 36.0 125.0 106 FINAL Gio Lopez * [facility] , [address] [facility] [id number] 0 10/13 CMP ALT/S GPT U/L 0.0 49.0 32 FINAL Gio Lopez * [facility] , [address] [facility] [id number] 0 10/13 CMP AST/S GOT U/L 17.0 59.0 48 FINAL Gio Lopez * [facility] , [address] [facility] [id number] 0 10/13 CMP BUN mg/dL 9.0 20.0 20.0 FINAL Gio Lopez * [facility] , [address] [facility] [id number] 0 10/13 CMP Calci um mg/dL 8.4 10.2 7.4 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 Criti ninoska Low FINAL Gio Lopez * [facility] , [address] [facility] [id number] 0 10/13 CMP Chlor viola mmol/L 96.0 107.0 103 FINAL Gio Lopez * [facility] , [address] [facility] [id number] 0 10/13 CMP CO2 mmol/L 22.0 30.0 [...] hour stability window. FINAL Gio Lopez * [facility] , [address] [facility] [id number] 0 10/13 CMP Creat inine mg/dL 0.66 1.25 1.50 High FINAL Gio Lopez * [facility] , [address] [facility] [address] [facility] [id number] 0 10/13 CMP GFR estim ate ml/min /1.73m ^2 46.7 Low GFR is calculate d using the CKD-EPI equation. FINAL Gio Lopez * [facility] , [address] [facility] [id number] 0 10/13 CMP Gluco se mg/dL 74.0 100.0 110 High FINAL Gio Lopez * [facility] , [address] [facility] [id number] 0 10/13 CMP Potas sium mmol/L 3.5 5.1 4.4 FINAL Gio Lopez * [facility] , [address] [facility] [id number] 0 10/13 CMP Sodiu m mmol/L 137.0 145.0 136 Low FINAL Gio Lopez * [facility] , [address] [facility] [id number] 0 10/13 CMP Bilir ubin, total mg/dL 0.2 1.3 0.4 FINAL Gio Lopez * [facility] , [address] [facility] [id number] 0 10/13 CMP Total prote in g/dL 6.3 8.2 5.4 Low FINAL Gio Lopez * [facility] , [address] [facility] [id number] 0 10/13 TSH w/ refle x to free T4 TSH uIU/mL 0.47 4.68 1.65 FINAL Gio Lopez * [facility] , [address] [facility] [id number] 0 10/13 Prote in/cr eatin ine ratio , rando m urine panel CREAT ININE , RANDO M URINE mg/dL 20.0 320.0 45 FINAL Gio VALDES, [facility] [address] [place] [id number] 4 10/13 Prote in/cr eatin ine ratio , rando m urine panel PROTE IN/CR EATIN INE RATIO mg/gcr eat 25.0 148.0 4556 High FINAL Gio VALDES, [facility] [address] [place] [id number] 4 10/13 Prote in/cr eatin ine ratio , rando m urine panel PROTE IN/CR EATIN INE RATIO mg/mgc reat 0.025 0.148 4.556 High FINAL Gio VALDES, [facility] [address] [place] [id number] 4 10/13 Prote in/cr eatin ine ratio , rando m urine panel PROTE IN, TOTAL , RANDO M UR mg/dL 5.0 25.0 205 High Verified by repeat analysis. FINAL Gio Lopez QUEST, [facility] [address] [facility] [id number] 4 11/20 CMP Album in g/dL 3.5 5.0 2.7 Low FINAL Gio Lopez * [facility] , [address] [facility] [address] [facility] [id number] 0 11/20 CMP Alkal ine phosp hatas e U/L 36.0 125.0 120 FINAL Gio Lopez * [facility] , [address] [facility] [address] [id number] 0 11/20 CMP ALT/S GPT U/L 0.0 49.0 33 FINAL Gio Lopez * [facility] , [address] [facility] [address] [id number] 0 11/20 CMP AST/S GOT U/L 17.0 59.0 45 FINAL Gio Lopez * [facility] , [address] [facility] [address] [id number] 0 11/20 CMP BUN mg/dL 9.0 20.0 26.0 High FINAL Gio Lopez * [facility] , [address] [facility] [address] [id number] 0 11/20 CMP Calci um mg/dL 8.4 10.2 7.4 Criti ninoska Low FINAL Gio Lopez * [facility] , [address] [facility] [address] [id number] 0 11/20 CMP Chlor viola mmol/L 96.0 107.0 107 FINAL Gio Lopez * [facility] , [address] [facility] [id number] 0 11/20 CMP CO2 mmol/L 22.0 30.0 [...] hour stability window. FINAL Gio Lopez * [facility] , [facility] [address] [id number] 0 11/20 CMP Creat inine mg/dL 0.66 1.25 1.60 High FINAL Gio Lopez * [facility] [address] [id number] 0 11/20 CMP GFR estim ate ml/min /1.73m ^2 43.2 Low GFR is calculate d using the CKD-EPI equation. FINAL Gio Lopez * [facility] , [facility] [address] [id number] 0 11/20 CMP Gluco se mg/dL 74.0 100.0 99 FINAL Gio Lopez * [facility] , [facility] [address] [id number] 0 11/20 CMP Potas sium mmol/L 3.5 5.1 4.3 FINAL Gio Lopez * [facility] , [address] [facility] [address] [id number] 0 11/20 CMP Sodiu m mmol/L 137.0 145.0 137 FINAL Gio Lopez * [facility] , [address] [facility] [address] [id number] 0 11/20 CMP Bilir ubin, total mg/dL 0.2 1.3 0.5 FINAL Gio Lopez * [facility] , [facility] [address] [id number] 0 11/20 CMP Total prote in g/dL 6.3 8.2 5.1 Low FINAL Gio Lopez * [facility] , [address] [facility] [id number] 0 11/20 TSH w/ refle x to free T4 TSH uIU/mL 0.47 4.68 1.59 FINAL Gio Lopez * [facility] , [address] [facility] [id number] 0 11/20 CBC w/ auto diff WBC K/uL 3.0 8.9 6.0 FINAL Gio Lopez [place] [facility] , [address] [place] [id number] 0 11/20 CBC w/ auto diff HGB g/dL 12.5 16.6 11.3 Low FINAL Gio Lopez [place] [facility] , [address] [place] [id number] 0 11/20 CBC w/ auto diff PLT K/uL 113.0 364.0 139 FINAL Gio Lopez [place] [facility] , [address] [place] [id number] 0 11/20 CBC w/ auto diff Tatyana # (ANC) K/uL 1.6 6.6 4.0 FINAL Gio Lopez [place] [facility] , [address] [place] [id number] 0 11/20 CBC w/ auto diff Tatyana % % 43.0 74.0 67.3 FINAL Gio [place] [facility] , [address] [place] [id number] 0 11/20 CBC w/ auto diff IG % % 0.0 0.5 0.2 FINAL Gio Lopez [place] [facility] , [address] [place] [id number] 0 11/20 CBC w/ auto diff IG # K/uL 0.0 0.03 0.01 FINAL Gio Lopez [place] [facility] , [address] [place] [id number] 0 11/20 CBC w/ auto diff LY % % 14.0 41.0 23.4 FINAL Gio Lopez [place] [facility] , [address] [place] [id number] 0 11/20 CBC w/ auto diff MO % % 6.0 15.0 7.6 FINAL Gio Lopez [place] [facility] , [address] [place] [id number] 0 11/20 CBC w/ auto diff EO % % 0.0 7.0 1.3 FINAL [facility] [place] [facility] , [address] [place] [id number] 0 11/20 CBC w/ auto diff BA % % 0.0 2.0 0.2 FINAL [facility] [place] [facility] , [address] [place] [id number] 0 11/20 CBC w/ auto diff LY # K/uL 0.4 3.6 1.4 FINAL [facility] [place] [facility] , [address] [address] [place] [id number] 0 11/20 CBC w/ auto diff MO # K/uL 0.2 1.3 0.5 FINAL Gio Lopez [place] [facility] [place] [facility] , [address] [place] [id number] 0 11/20 CBC w/ auto diff EO # K/uL 0.0 0.6 0.1 FINAL Gio Lopez [place] [facility] [place] [facility] , [address] [place] [id number] 0 11/20 CBC w/ auto diff BA # K/uL 0.0 0.2 0.0 FINAL Gio Lopez [place] [facility] [place] [facility] , [address] [place] [id number] 0 11/20 CBC w/ auto diff NRBC % #/100W BC 0.0 0.2 0.0 FINAL Gio Lopez [place] [facility] [place] [facility] , [address] [place] [id number] 0 11/20 CBC w/ auto diff RBC M/uL 4.2 5.6 3.24 Low FINAL Gio Lopez [place] [facility] [place] [facility] , [address] [place] [id number] 0 11/20 CBC w/ auto diff HCT % 39.0 49.0 33.6 Low FINAL Gio Lopez [place] [facility] [place] [facility] , [address] [place] [id number] 0 11/20 CBC w/ auto diff MCV fL 80.0 104.0 103.7 FINAL Gio Lopez [place] [facility] [place] [facility] , [address] [place] [id number] 0 11/20 CBC w/ auto diff MCH pg 26.0 35.0 34.9 FINAL Gio Lopez [place] [facility] [place] [facility] , [address] [place] [id number] 0 11/20 CBC w/ auto diff MCHC g/dL 30.0 35.0 33.6 FINAL [facility] [place] [facility] [place] [facility] , [address] [place] [id number] 0 11/20 CBC w/ auto diff MPV fL 9.5 13.4 10.2 FINAL [facility] [place] [facility] [place] [facility] , [address] [place] [id number] 0 11/20 CBC w/ auto diff RDW % 11.3 15.6 16.60 High FINAL [facility] [place] [facility] [place] [facility] , [address] [place] [id number] 0 11/20 Prote in/cr eatin ine ratio , rando m urine panel CREAT ININE , RANDO M URINE mg/dL 20.0 320.0 41 FINAL Gio VALDES, [facility] [address] [place] [id number] 4 11/20 Prote in/cr eatin ine ratio , rando m urine panel PROTE IN/CR EATIN INE RATIO mg/gcr eat 25.0 148.0 3634 High FINAL Gio VALDES, [facility] [address] [place] [id number] 4 11/20 Prote in/cr eatin ine ratio , rando m urine panel PROTE IN/CR EATIN INE RATIO mg/mgc reat 0.025 0.148 3.634 High FINAL Gio VALDES, [facility] [address] [place] [id number] 4 11/20 Prote in/cr eatin ine ratio , rando m urine panel PROTE IN, TOTAL , RANDO M UR mg/dL 5.0 25.0 149 High FINAL Gio VALDES, [facility] [address] [place] [id number] 4 12/20 CMP Album in g/dL 3.5 5.0 2.9 Low FINAL Gio John * [facility] , [address] [facility] [id number] 0 12/20 CMP Alkal ine phosp hatas e U/L 36.0 125.0 117 FINAL Gio John * [facility] , [address] [facility] [id number] 0 12/20 CMP ALT/S GPT U/L 0.0 49.0 33 FINAL Gio John * [facility] , [address] [facility] [address] [facility] [id number] 0 12/20 CMP AST/S GOT U/L 17.0 59.0 45 FINAL Gio Lopez * [facility] , [address] [facility] [address] [facility] [id number] 0 12/20 CMP BUN mg/dL 9.0 20.0 33.0 High FINAL Gio Lopez * [facility] , [address] [facility] [id number] 0 12/20 CMP Calci um mg/dL 8.4 10.2 7.7 Low FINAL Gio Lopez * [facility] , [address] [facility] [address] [facility] [id number] 0 12/20 CMP Chlor viola mmol/L 96.0 107.0 105 FINAL Gio Lopez * [facility] , [address] [facility] [id number] 0 12/20 CMP CO2 mmol/L 22.0 30.0 [...] hour stability window. FINAL Gio Lopez * [facility] , [facility] [address] [id number] 0 12/20 CMP Creat inine mg/dL 0.66 1.25 1.90 High FINAL Gio Lopez * [facility] [address] [id number] 0 12/20 CMP GFR estim ate ml/min /1.73m ^2 35.1 Low GFR is calculate d using the CKD-EPI equation. FINAL Gio Lopez * [facility] [address] [id number] 0 12/20 CMP Gluco se mg/dL 74.0 100.0 130 High FINAL Gio Lopez * [facility] , [facility] [address] [id number] 0 12/20 CMP Potas sium mmol/L 3.5 5.1 4.6 FINAL Gio Lopez * [facility] , [facility] [address] [id number] 0 12/20 CMP Sodiu m mmol/L 137.0 145.0 132 Low FINAL Gio Lopez * [facility] , [facility] [address] [id number] 0 12/20 CMP Bilir ubin, total mg/dL 0.2 1.3 0.2 FINAL Gio Lopez * [facility] [address] [id number] 0 12/20 CMP Total prote in g/dL 6.3 8.2 5.5 Low FINAL Gio Lopez * [facility] , [facility] [facility] [place] [id number] 0 12/20 CBC w/ auto diff WBC K/uL 3.0 8.9 3.8 FINAL [facility] Lopez [place] [facility] , [address] [place] [id number] 0 12/20 CBC w/ auto diff HGB g/dL 12.5 16.6 11.5 Low FINAL [facility] Lopez [place] [facility] , [address] [place] [id number] 0 12/20 CBC w/ auto diff PLT K/uL 113.0 364.0 176 FINAL Gio Lopez [place] [facility] , [address] [place] [id number] 0 12/20 CBC w/ auto diff Tatyana # (ANC) K/uL 1.6 6.6 2.1 FINAL [facility] Lopez [place] [facility] , [address] [place] [id number] 0 12/20 CBC w/ auto diff Tatyana % % 43.0 74.0 56.1 FINAL [facility] Lopez [place] [facility] , [address] [place] [id number] 0 12/20 CBC w/ auto diff IG % % 0.0 0.5 0.3 FINAL [facility] Lopez [place] [facility] , [address] [place] [id number] 0 12/20 CBC w/ auto diff IG # K/uL 0.0 0.03 0.01 FINAL [facility]io Lopez [place] [facility] , [address] [place] [id number] 0 12/20 CBC w/ auto diff LY % % 14.0 41.0 33.3 FINAL [facility] Lopez [place] [facility] , [address] [place] [id number] 0 12/20 CBC w/ auto diff MO % % 6.0 15.0 8.7 FINAL [facility] Lopez [place] [facility] , [address] [place] [id number] 0 12/20 CBC w/ auto diff EO % % 0.0 7.0 1.3 FINAL [facility] Lopez [place] [facility] , [address] [place] [id number] 0 12/20 CBC w/ auto diff BA % % 0.0 2.0 0.3 FINAL [facility] Lopez [place] [facility] , [address] [place] [id number] 0 12/20 CBC w/ auto diff LY # K/uL 0.4 3.6 1.3 FINAL [facility] Lopez [place] [facility] , [address] [place] [id number] 0 12/20 CBC w/ auto diff MO # K/uL 0.2 1.3 0.3 FINAL [facility]io Lopez [place] [facility] , [address] [place] [id number] 0 12/20 CBC w/ auto diff EO # K/uL 0.0 0.6 0.1 FINAL [facility] Lopez [place] [facility] , [address] [place] [id number] 0 12/20 CBC w/ auto diff BA # K/uL 0.0 0.2 0.0 FINAL [facility] Lopez [place] [facility] , [address] [place] [id number] 0 12/20 CBC w/ auto diff NRBC % #/100W BC 0.0 0.2 0.0 FINAL [facility] Lopez [place] [facility] , [address] [place] [id number] 0 12/20 CBC w/ auto diff RBC M/uL 4.2 5.6 3.22 Low FINAL [facility]io Lopez [place] [facility] , [address] [place] [id number] 0 12/20 CBC w/ auto diff HCT % 39.0 49.0 34.0 Low FINAL Gio Lopez [place] [facility] , [address] [place] [id number] 0 12/20 CBC w/ auto diff MCV fL 80.0 104.0 105.6 High FINAL Gio Lopez [place] [facility] [place] [facility] , [address] [place] [id number] 0 12/20 CBC w/ auto diff MCH pg 26.0 35.0 35.7 High FINAL Gio Lopez [place] [facility] , [address] [place] [id number] 0 12/20 CBC w/ auto diff MCHC g/dL 30.0 35.0 33.8 FINAL [facility] Lopez [place] [facility] , [address] [place] [id number] 0 12/20 CBC w/ auto diff MPV fL 9.5 13.4 10.0 FINAL [facility] Lopez [place] [facility] , [address] [place] [id number] 0 12/20 CBC w/ auto diff RDW % 11.3 15.6 15.30 FINAL Gio Lopez [facility] , [address] [place] [id number] 0 12/21 Prote in/cr eatin ine ratio , rando m urine panel CREAT ININE , RANDO M URINE mg/dL 20.0 320.0 27 FINAL Gio VALDES, [employer] [address] [facility] [id number] 4 12/21 Prote in/cr eatin ine ratio , rando m urine panel PROTE IN/CR EATIN INE RATIO mg/gcr eat 25.0 148.0 1593 High FINAL Gio VALDES, [employer] [address] [facility] [id number] 4 12/21 Prote in/cr eatin ine ratio , rando m urine panel PROTE IN/CR EATIN INE RATIO mg/mgc reat 0.025 0.148 1.593 High FINAL Gio VALDES, [employer], [employer] [address] [facility] [id number] 4 12/21 Prote in/cr eatin ine ratio , rando m urine panel PROTE IN, TOTAL , RANDO M UR mg/dL 5.0 25.0 43 High FINAL Gio VALDES [employer] [employer] [address] [facility] [id number] 4 Medications Date Name Route Dose Frequency [...] treatment only upon physician approval. 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 Acute kidney failure Active Diarrhea (finding) Active 04/21/2022 Fatigue Active Vital Signs Date Type Value 04/21/2024 BMI 25.48 04/21/2024 Height 68.00 04/21/2024 Weight 167.60 04/21/2024 Pain Scale 0.00 04/21/2024 BSA 1.90 04/21/2024 Oxygen Saturation 98.00 04/21/2024 Respiratory Rate 18.00 04/21/2024 Heart Beat 61.00 04/21/2024 Body Temperature 97.80 04/21/2024 Intravascular Systolic 176 04/21/2024 Intravascular Diastolic 80 05/11/2024 BSA 1.90 05/11/2024 Body Temperature 97.50 05/11/2024 Heart Beat 59.00 05/11/2024 Respiratory Rate 16.00 05/11/2024 Oxygen Saturation 98.00 05/11/2024 Intravascular Systolic 142 05/11/2024 Intravascular Diastolic 92 05/11/2024 Pain Scale 0.00 05/11/2024 Weight 167.70 05/11/2024 BMI 25.50 05/11/2024 Height 68.00 06/01/2024 BSA 1.90 06/01/2024 Body Temperature 97.50 06/01/2024 Heart Beat 64.00 06/01/2024 Respiratory Rate 16.00 06/01/2024 Oxygen Saturation 97.00 06/01/2024 Intravascular Systolic 178 06/01/2024 Intravascular Diastolic 80 06/01/2024 Pain Scale 0.00 06/01/2024 Weight 169.10 06/01/2024 BMI 25.71 06/01/2024 Height 68.00 08/24/2024 BSA 1.83 08/24/2024 Height 68.00 08/24/2024 Weight 154.30 08/24/2024 Pain Scale 0.00 08/24/2024 Intravascular Systolic 116 08/24/2024 Intravascular Diastolic 72 08/24/2024 Oxygen Saturation 97.00 08/24/2024 Respiratory Rate 16.00 08/24/2024 Heart Beat 66.00 08/24/2024 Body Temperature 97.40 08/24/2024 BMI 23.46 09/14/2024 Heart Beat 64.00 09/14/2024 BMI 24.42 09/14/2024 Height 68.00 09/14/2024 Weight 160.60 09/14/2024 Pain Scale 0.00 09/14/2024 Intravascular Systolic 130 09/14/2024 Intravascular Diastolic 86 09/14/2024 Oxygen Saturation 95.00 09/14/2024 Body Temperature 97.10 09/14/2024 BSA 1.86 09/14/2024 Respiratory Rate 16.00 09/22/2024 Height 68.00 09/22/2024 Pain Scale 0.00 09/22/2024 Intravascular Systolic 135 09/22/2024 Intravascular Diastolic 76 09/22/2024 Oxygen Saturation 97.00 09/22/2024 Respiratory Rate 16.00 09/22/2024 Heart Beat 63.00 09/22/2024 Body Temperature 97.20 10/13/2024 Body Temperature 97.20 10/13/2024 Heart Beat 61.00 10/13/2024 Respiratory Rate 16.00 10/13/2024 Oxygen Saturation 96.00 10/13/2024 Intravascular Systolic 162 10/13/2024 Intravascular Diastolic 81 10/13/2024 Pain Scale 0.00 10/13/2024 Weight 165.20 10/13/2024 Height 68.00 10/13/2024 BMI 25.12 10/13/2024 BSA 1.88 11/20/2024 Body Temperature 97.30 11/20/2024 Heart Beat 65.00 11/20/2024 BSA 1.88 11/20/2024 BMI 24.97 11/20/2024 Height 68.00 11/20/2024 Weight 164.20 11/20/2024 Pain Scale 0.00 11/20/2024 Intravascular Systolic 158 11/20/2024 Intravascular Diastolic 78 11/20/2024 Oxygen Saturation 96.00 11/20/2024 Respiratory Rate 16.00 12/20/2024 Body Temperature 97.40 12/20/2024 BMI 23.70 12/20/2024 Height 68.00 12/20/2024 Weight 155.90 12/20/2024 BSA 1.84 12/20/2024 Intravascular Systolic 122 12/20/2024 Intravascular Diastolic 62 12/20/2024 Oxygen Saturation 100.00 12/20/2024 Respiratory Rate 16.00 12/20/2024 Heart Beat 67.00 12/20/2024 Pain Scale 2.00 Notes Section * Med Onc Follow-up Note Patient Name: KUMAR MALONE Date Of : 1945 Today's Provider:?Mary Jane Ko RN, [employer], MA, OCN Date of Service:?04/21/2024 Attending Physician:?Gio Lopez (Hematology/Oncology) Referring Provider: Michael Arguelles MD (Urology) HEMATOLOGY/ MEDICAL ONCOLOGY FOLLOW UP VISIT Reason for Visit Oligometastatic renal cell carcinoma Assessment 1.?Oligometastatic clear cell renal cell carcinoma -Has been on first-line systemic therapy in the form of Keytruda and Lenvima since early January 2022 -CT CAP 04/10/22 showed a good response to treatment.?? Primary tumor in the??kidney was smaller.??The biopsy-proven lung metastases were also??smaller.?? The??mildly enlarged portacaval lymph node which may or may not be related to??his renal cell carcinoma was stable in size -??Underwent cytoreductive nephrectomy on June 16, 2022. Surgical pathology showed grade 3 clear-cell renal cell carcinoma measuring 9.5 cm in the greatest dimension with invasion into the perinephric in the high lower adipose tissue. Surgical resection margins were negative. -Restarted Keytruda and Lenvima in mid to late??June after surgery. ??Tolerating relatively well - Treatment paused for a month due to worsening Cr.?? Workup by nephrology negative - Restarted Keytruda and Lenvima with stable Cr so far. - PET/CT from 09/2022??showed??enlargement of??the 2 lung metastases??compared to the previous scan??from March 2022.?The portacaval lymph node??is still very small, and??actually has lower??FDGuptake (now SUV max of 2.8) compared to last PET scan from December 2021.?? This remains indeterminate. -Unclear if this is??real progression??on first-line therapy??or progression due to??interruption of treatment. ??Since the last??CT scan from March 2022,??Lenvima was held from??late April??until??early June??due to diarrhea and surgery.?? Keytruda was??interrupted due to surgery.?? Treatment was interrupted again??in late July??due to rising creatinine, which has now stabilized - Discussed 2nd line treatment options. ??Patient decided to stay on first-line therapy in the formof Keytruda and Lenvima, while addressing the oligometastatic lung metastases with either SBRT or surgery. ??He also agreed to increase Lenvima dosage to 14 mg daily -He met with radiation oncology and surgery. ??Decided to pursue SBRT - PET/CT from??February 01, 2023 showed??expected response??in the??lung metastases treated with??SBRT. ??The periportal lymph node is no longer hypermetabolic.?? There is a new??tiny hypermetabolic??lesion in the right humeral head s/p SBRT. - PET/CT from 04/28/2023 showed no new disease.?? The 2 lung mets and possible humeral??head met??that have been radiated??have decreased further??in FDG uptake, consistent with response to radiation - PET/CT from 07/2023 negative -??PET/CT from October 2023 showed development of an isolated soft tissue nodule in the right internalmammary/intercostal region measuring 5 mm suspicious for isolated metastasis. - Patient did not wish to switch systemic therapy.?? He underwent radiation therapy targeting the isolated chest wall metastasis??in mid November 2023 - PET/CT 02/2024 shows no new disease 2. Hypothyroidism - Started levothyroxine 05/02/22 - TSH from today pending 3.?Acute kidney injury -Baseline creatinine was in the 1.1-1.2 range.?? Went up to 1.7-1.8 range after nephrectomy.?? Thenwent up to 2.3. - saw nephrology.?? 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 Decreased appetite -Likely due to lenvatinib - On Remeron 7.?? Right chest wall pain -Near previous radiation site 8. Hypertension - on diltiazem and Losartan per pcp Plan 1. ??Continue pembrolizumab and Lenvima 2.?? Continue pembrolizumab (Keytruda) 200 mg every 3 weeks 3. ??Continue Lenvima 10 mg daily 4.?? Plan to repeat PET/CT in April??before he goes to [place] for 3 months 5.?? Continue levothyroxine.?? TSH from today pending 6.?? Continue Remeron 15 mg nightly to improve [...] of Present Illness This is a very pleasant??78-year-old gentleman??who underwent a CT scan of the [...] cm superior right renal mass, likely renal cellcarcinoma, with no local invasion or metastatic??disease??evident.?? There were flash filling??hemangiomas measuring up to 10 mm??in the lateral aspect of segment V.?? There was also a 5 mm??liver cyst??in segment II.?CT of the chest performed??on December 25, 2021??showed??2 suspicious lung lesions measuring 1.4 cm and 1.2 cm within the right upper lobe and right lower lobe.?? Malignancy cannot be ruled out.?? In addition, he was found to have subtle tiny??foci of decreased??density??within the T1 vertebral body and manubrium,??possibly related to osteoporosis, [...] presents to the office today with his .?? He was recently seen by nephrology at which time he was recommended to adjust??his blood pressure medications. ??Losartan was added but unfortunately he had significant??dizziness associated with this.?? He did discontinue it and he is waiting to hear back from them regarding the further??recommendations. 2 days ago he experienced diarrhea??and did require Lomotil. ??He had a good response to this.?? Previous rib pain at the location of his prior radiation therapy??has improved. ??He states it tends to wax and wane and often occurs based on??position. ??He denies any progressive pain.?? He is scheduled to follow-up at the [place] today and he will transition his care to [place] [facility] over the winter months. Review of [...] smoker. ??No significant alcohol use.?? Lives with in??[place].?He was in the [employer]??and served in [place].?? They traveled to[facility]for the winter months. Vital Signs Blood [...] symptoms of disease. (Date: 04/21/2024) Physical Exam GENERAL:??Alert and oriented x3. ??In no apparent distress. ??He is seated comfortably and his moods appropriate.? HEENT:??Pupils equal round and reactive to light. ??Sclera nonicteric. ??Conjunctive are pink.?? Oropharynx is pink and moist no lesions or exudate LYMPH:??No palpable cervical supraclavicular axillary lymphadenopathy RESP:??No dyspnea with conversation lungs are clear to auscultation.?No wheezing rales or??on exam.? CARDIAC:??Regular rate and rhythm no ectopic beats or murmurs noted. ABDOMEN:??Soft and nontender??no guarding or rebound EXT:??Lower extremities without any edema upper extremities without edema cyanosis or clubbing SKIN:??Warm and dry no rashes or petechiae. NEURO:??Nonfocal gait intact Genetics/Molecular/Biomarkers * Renal cell carcinoma (disorder) ( Stage Date: Unknown, Stage IV RCC IMDC Risk Group: Favorable (no risk factors); Histopathologic Type: Clear cell renal carcinoma;) Additional Labs, Imaging, and Other Studies Lab Results CBC Lab Results 04/21/2024 03/30/2024 03/03/2024 02/24/2024 02/17/2001/27/2024 CBC WBC x 10^3/uL 4.6 5.6 6.9 [...] (L) 40.4 (L) ? Surveys/Consents/Other Discussions Stefani Hinton, VAISHALI, [employer], MA, OCN CC: FAX Beto Anne MD Electronically signed by Mary Jane Ko RN, [employer], MA, OCN 04/21/2024 11:00 LICENSED VETERINARY TECHNICIAN
--- OUTSIDE RECORDS SUMMARY | 2024-12-31 12:11 | XMS_ITS ---
Author Name Interface, [id number] lity Address [place] [address] [facility] Address [place] [address] Allergies and Adverse Reactions Plan Reason for Visit Encounters Diagnostic Results Medications Problems Vital Signs Notes Section
--- OUTSIDE RECORDS SUMMARY | 2024-12-31 12:12 | XMS_ITS ---
Author Name Interface, [id number] lity Address [address] [facility] [address] [address] [facility] Oncology Address [address] [facility] [address] [address] Allergies and Adverse Reactions Medication/Group Name Reaction [...] 5.0 2.9 Low FINAL Gio Lopez * [facility] On[facility] , [address] [facility] [id number] 0 12/20 CMP Alkal ine phosp hatas e U/L 36.0 125.0 117 FINAL Gio Lopez * [facility] , [address] [facility] [id number] 0 12/20 CMP ALT/S GPT U/L 0.0 49.0 33 FINAL Gio Lopez * [facility] , [address] [facility] [id number] 0 12/20 CMP AST/S GOT U/L 17.0 59.0 45 FINAL Gio Lopez * [facility] , [address] [facility] [id number] 0 12/20 CMP BUN mg/dL 9.0 20.0 33.0 High FINAL Gio Lopez * [facility] , [address] [facility] [id number] 0 12/20 CMP Calci um mg/dL 8.4 10.2 7.7 Low FINAL Gio Lopez * [facility] , [address] [facility] [id number] 0 12/20 CMP Chlor viola mmol/L 96.0 107.0 105 FINAL Gio Lopez * [facility] , [address] [facility] [id number] 0 12/20 CMP CO2 mmol/L 22.0 30.0 [...] hour stability window. FINAL Gio Lopez * [facility] , [address] [facility] [id number] 0 12/20 CMP Creat inine mg/dL 0.66 1.25 1.90 High FINAL Gio Lopez * [facility] , [address] [facility] [id number] 0 12/20 CMP GFR estim ate ml/min /1.73m ^2 35.1 Low GFR is calculate d using the CKD-EPI equation. FINAL Gio Lopez * [facility] , [address] [facility] [id number] 0 12/20 CMP Gluco se mg/dL 74.0 100.0 130 High FINAL Gio Lopez * [facility] , [address] [facility] [id number] 0 12/20 CMP Potas sium mmol/L 3.5 5.1 4.6 FINAL Gio Lopez * [facility] , [address] [facility] [id number] 0 12/20 CMP Sodiu m mmol/L 137.0 145.0 132 Low FINAL Gio Lopez * [facility] , [address] [facility] [id number] 0 12/20 CMP Bilir ubin, total mg/dL 0.2 1.3 0.2 FINAL Gio Lopez * [facility] , [address] [facility] [id number] 0 12/20 CMP Total prote in g/dL 6.3 8.2 5.5 Low FINAL Gio Lopez * [facility] , [address] [facility] [id number] 0 12/20 CBC w/ auto diff WBC K/uL 3.0 8.9 3.8 FINAL Gio Kramerl [facility] - [place] [facility] , [address] [place] [id number] 0 12/20 CBC w/ auto diff HGB g/dL 12.5 16.6 11.5 Low FINAL Gio Kramerl le - [place] [facility] , [address] [place] [id number] 0 12/20 CBC w/ auto diff PLT K/uL 113.0 364.0 176 FINAL Gio Lopez [place] [facility] [place] [facility] , [address] [place] [id number] 0 12/20 CBC w/ auto diff Tatyana # (ANC) K/uL 1.6 6.6 2.1 FINAL Gio Lopez [place] [facility] [place] [facility] , [address] [place] [id number] 0 12/20 CBC w/ auto diff Tatyana % % 43.0 74.0 56.1 FINAL Gio Lopez [place] [facility] [place] [facility] , [address] [place] [id number] 0 12/20 CBC w/ auto diff IG % % 0.0 0.5 0.3 FINAL Gio Lopez [place] [facility] [place] [facility] , [address] [place] [id number] 0 12/20 CBC w/ auto diff IG # K/uL 0.0 0.03 0.01 FINAL Gio Lopez [place] [facility] [place] [facility] , [address] [place] [id number] 0 12/20 CBC w/ auto diff LY % % 14.0 41.0 33.3 FINAL Gio Lopez [place] [facility] [place] [facility] , [address] [place] [id number] 0 12/20 CBC w/ auto diff MO % % 6.0 15.0 8.7 FINAL Gio Lopez [place] [facility] , [address] [place] [id number] 0 12/20 CBC w/ auto diff EO % % 0.0 7.0 1.3 FINAL Gio Lopez [place] [facility] [place] [facility] , [address] [place] [id number] 0 12/20 CBC w/ auto diff BA % % 0.0 2.0 0.3 FINAL Gio Lopez [place] [facility] [place] [facility] , [address] [place] [id number] 0 12/20 CBC w/ auto diff LY # K/uL 0.4 3.6 1.3 FINAL Gio Lopez [place] [facility] [place] [facility] , [address] [place] [id number] 0 12/20 CBC w/ auto diff MO # K/uL 0.2 1.3 0.3 FINAL Gio Lopez [place] [facility] [place] [facility] , [address] [place] [id number] 0 12/20 CBC w/ auto diff EO # K/uL 0.0 0.6 0.1 FINAL Gio Lopez [place] [facility] [place] [facility] , [address] [place] [id number] 0 12/20 CBC w/ auto diff BA # K/uL 0.0 0.2 0.0 FINAL Gio Lopez [place] [facility] [place] [facility] , [address] [place] [id number] 0 12/20 CBC w/ auto diff NRBC % #/100W BC 0.0 0.2 0.0 FINAL Gio Lopez [place] [facility] [place] [facility] , [address] [place] [id number] 0 12/20 CBC w/ auto diff RBC M/uL 4.2 5.6 3.22 Low FINAL Gio Lopez [place] [facility] [place] [facility] , [address] [place] [id number] 0 12/20 CBC w/ auto diff HCT % 39.0 49.0 34.0 Low FINAL Gio Lopez [facility] , [address] [facility] [id number] 0 12/20 CBC w/ auto diff MCV fL 80.0 104.0 105.6 High FINAL Gio Lopez [facility] , [address] [facility] [address] [facility] [id number] 0 12/20 CBC w/ auto diff MCH pg 26.0 35.0 35.7 High FINAL Gio Lopez [facility] , [address] [facility] [address] [facility] [id number] 0 12/20 CBC w/ auto diff MCHC g/dL 30.0 35.0 33.8 FINAL Gio Lopez [facility] , [address] [facility] [address] [facility] [id number] 0 12/20 CBC w/ auto diff MPV fL 9.5 13.4 10.0 FINAL Gio Lopez [facility] , [address] [facility] [address] [facility] [id number] 0 12/20 CBC w/ auto diff RDW % 11.3 15.6 15.30 FINAL Gio Lopez [facility] , [address] [facility] [address] [facility] [id number] Medications Date Name Route Dose Frequency [...] kidney disease Active Oropharyngeal dysphagia Active Other rn long term care (current) drug therapy Active Acute kidney failure [...] smoker. ??No significant alcohol use.?? Lives with in??[place].?He was in the [employer]??and served in [employer].?? They traveled to??[facility]for the winter months. Vital Signs Blood [...]
--- OUTSIDE RECORDS SUMMARY | 2024-12-31 12:12 | XMS_ITS ---
Author Name Interface, [id number] lity Address [address] [place] [address] Oncology Address [address] [place] [address] Allergies and Adverse Reactions Plan Reason for Visit Encounters Immunizations Diagnostic Results Medications Problems Vital Signs Notes Section
--- OUTSIDE RECORDS SUMMARY | 2024-12-31 12:12 | XMS_ITS ---
Author Name Interface, [id number] lity Address [address] [place] [address] Oncology Address [address] [place] [address] Allergies and Adverse Reactions Plan Reason for Visit Encounters Diagnostic Results Medications Problems Notes Section
--- OUTSIDE RECORDS SUMMARY | 2024-12-31 12:12 | XMS_ITS | CCD ---
Author Name Interface, [id number] lity Address [address] [place] [address] [address] [place] [address] [facility] Oncology Address [address] [facility] [address] [place] [address] Care Team Providers Care Graves Registration Specialist Name Role Phone Gio Lopez MD Unavailable Unavailable Allergies and Adverse Reactions Care Plan Reason for Visit Encounters Functional Status Immunizations Diagnostic Results Medications Administered Medications Problems Procedures Social History Visits Vital Signs Notes Section
--- OUTSIDE RECORDS SUMMARY | 2024-12-31 12:12 | XMS_ITS ---
Author Name Interface, [id number] lity Address [address] [place] [address] Oncology Address [address] [place] [address] Allergies and Adverse Reactions Plan Reason for Visit Encounters Diagnostic Results Medications Problems Notes Section
--- OUTSIDE RECORDS SUMMARY | 2024-12-31 12:12 | XMS_ITS ---
Author Name Interface, [id number] lity Address [address] [facility] [address] [address] [facility] Address [address] [facility] [address] [address] Allergies and Adverse Reactions Medication/Group Name Reaction [...] 4.2 FINAL [facility] , [address] [facility] [address] [place] [id number] 0 10/13 CBC w/ auto diff HGB g/dL 12.5 16.6 12.3 Low FINAL Gio Lopez [place] [facility] [place] [facility] , [address] [place] [id number] 0 10/13 CBC w/ auto diff PLT K/uL 113.0 364.0 162 FINAL Gio Lopez [place] [facility] [place] [facility] , [address] [place] [id number] 0 10/13 CBC w/ auto diff Tatyana # (ANC) K/uL 1.6 6.6 2.0 FINAL Gio Lopez [place] [facility] [place] [facility] , [address] [place] [id number] 0 10/13 CBC w/ auto diff Tatyana % % 43.0 74.0 46.9 FINAL Gio Lopez [place] [facility] [place] [facility] , [address] [place] [id number] 0 10/13 CBC w/ auto diff IG % % 0.0 0.5 0.2 FINAL Gio Lopez [place] [facility] [place] [facility] , [address] [place] [id number] 0 10/13 CBC w/ auto diff IG # K/uL 0.0 0.03 0.01 FINAL Gio Lopez [place] [facility] [place] [facility] , [address] [place] [id number] 0 10/13 CBC w/ auto diff LY % % 14.0 41.0 43.1 High FINAL Gio Lopez [place] [facility] [place] [facility] , [address] [place] [id number] 0 10/13 CBC w/ auto diff MO % % 6.0 15.0 6.9 FINAL Gio Lopez [place] [facility] [place] [facility] , [address] [place] [id number] 0 10/13 CBC w/ auto diff EO % % 0.0 7.0 2.4 FINAL Gio Lopez [place] [facility] , [address] [place] [id number] 0 10/13 CBC w/ auto diff BA % % 0.0 2.0 0.5 FINAL Gio Lopez [place] [facility] , [address] [place] [id number] 0 10/13 CBC w/ auto diff LY # K/uL 0.4 3.6 1.8 FINAL Gio Lopez [place] [facility] [place] [facility] , [address] [place] [id number] 0 10/13 CBC w/ auto diff MO # K/uL 0.2 1.3 0.3 FINAL Gio Lopez [place] [facility] [place] [facility] , [address] [place] [id number] 0 10/13 CBC w/ auto diff EO # K/uL 0.0 0.6 0.1 FINAL Gio Lopez [place] [facility] [place] [facility] , [address] [place] [id number] 0 10/13 CBC w/ auto diff BA # K/uL 0.0 0.2 0.0 FINAL Gio Lopze [place] [facility] [place] [facility] , [address] [place] [id number] 0 10/13 CBC w/ auto diff NRBC % #/100W BC 0.0 0.2 0.0 FINAL Gio Lopez [place] [facility] [place] [facility] , [address] [place] [id number] 0 10/13 CBC w/ auto diff RBC M/uL 4.2 5.6 3.70 Low FINAL Gio Lopez [place] [facility] [place] [facility] , [address] [place] [id number] 0 10/13 CBC w/ auto diff HCT % 39.0 49.0 36.8 Low FINAL Gio Lopez [place] [facility] [place] [facility] , [address] [place] [id number] 0 10/13 CBC w/ auto diff MCV fL 80.0 104.0 99.5 FINAL Gio Lopez [place] [facility] [place] [facility] , [address] [place] [id number] 0 10/13 CBC w/ auto diff MCH pg 26.0 35.0 33.2 FINAL Gio Lopez [place] [facility] [place] [facility] , [address] [place] [id number] 0 10/13 CBC w/ auto diff MCHC g/dL 30.0 35.0 33.4 FINAL Gio Lopez [place] [facility] [place] [facility] , [address] [place] [id number] 0 10/13 CBC w/ auto diff MPV fL 9.5 13.4 10.4 FINAL Gio Lopez [place] [facility] [place] [facility] , [address] [place] [id number] 0 10/13 CBC w/ auto diff RDW % 11.3 15.6 15.20 FINAL Gio Lopez [place] [facility] [place] [facility] , [address] [place] [id number] 0 10/13 CMP Album in g/dL 3.5 5.0 2.9 Low FINAL Gio Lopez * [place] [facility] [place] [facility] , [address] [facility] [id number] 0 10/13 CMP Alkal ine phosp hatas e U/L 36.0 125.0 106 FINAL Gio Lopez * [facility] , [address] [facility] [id number] 0 10/13 CMP ALT/S GPT U/L 0.0 49.0 32 FINAL iGo Lopez * [facility] , [address] [facility] [id number] 0 10/13 CMP AST/S GOT U/L 17.0 59.0 48 FINAL Gio Lopez * [facility] , [address] [facility] [address] [facility] [id number] 0 10/13 CMP BUN mg/dL 9.0 20.0 20.0 FINAL Gio Lopez * [facility] , [address] [facility] [id number] 0 10/13 CMP Calci um mg/dL 8.4 10.2 7.4 Critica l chemistry account manager ry value tasia Dai FINAL Gio Lopez * [facility] , [address] [facility] [id number] 0 10/13 CMP Chlor viola mmol/L 96.0 107.0 103 FINAL Gio Lopez * [facility] , [address] [facility] [id number] 0 10/13 CMP CO2 mmol/L 22.0 30.0 [...] hour stability window. FINAL Gio Lopez * [facility] , [address] [facility] [id number] 0 10/13 CMP Creat inine mg/dL 0.66 1.25 1.50 High FINAL Gio Lopez * [facility] , [address] [facility] [id number] 0 10/13 CMP GFR estim ate ml/min /1.73m ^2 46.7 Low GFR is calculate d using the CKD-EPI equation. FINAL Gio Lopez * [facility] , [address] [facility] [id number] 0 10/13 CMP Gluco se mg/dL 74.0 100.0 110 High FINAL Gio Lopez * [facility] , [address] [facility] [id number] 0 10/13 CMP Potas sium mmol/L 3.5 5.1 4.4 FINAL Gio Lopez * [facility] , [address] [facility] [id number] 0 10/13 CMP Sodiu m mmol/L 137.0 145.0 136 Low FINAL Gio Lopez * [facility] , [address] [facility] [id number] 0 10/13 CMP Bilir ubin, total mg/dL 0.2 1.3 0.4 FINAL Gio Lopez * [facility] , [address] [facility] [id number] 0 10/13 CMP Total prote in g/dL 6.3 8.2 5.4 Low FINAL Gio John * [facility] , [address] [facility] [id number] 0 10/13 TSH w/ refle x to free T4 TSH uIU/mL 0.47 4.68 1.65 FINAL Gio Lopez * [facility] , [address] [facility] [id number] 0 10/13 Prote in/cr eatin ine ratio , kierrao m urine panel CREAT ININE , KIERRAO M URINE mg/dL 20.0 320.0 45 FINAL Gio VALDES [facility] [address] [place] [id number] 4 10/13 Prote in/cr eatin ine ratio , kierrao m urine panel PROTE IN/CR EATIN INE RATIO mg/gcr eat 25.0 148.0 4556 High FINAL Gio VALDES [facility] [address] [place] [id number] 4 10/13 Prote in/cr eatin ine ratio , kierrao m urine panel PROTE IN/CR EATIN INE RATIO mg/mgc reat 0.025 0.148 4.556 High FINAL Gio VALDES [facility] [address] [place] [id number] 4 10/13 Prote in/cr eatin ine ratio , mario m urine panel PROTE IN, TOTAL , KIERRAO M UR mg/dL 5.0 25.0 205 High Verified by repeat analysis. FINAL Gio VALDES [facility] [address] [place] [id number] 4 11/20 TSH w/ refle x to free T4 TSH uIU/mL 0.47 4.68 1.59 FINAL Gio Lopez * [facility] , [address] [facility] [id number] 0 11/20 CMP Album in g/dL 3.5 5.0 2.7 Low FINAL Gio Lopez * [facility] , [address] [facility] [id number] 0 11/20 CMP Alkal ine phosp hatas e U/L 36.0 125.0 120 FINAL Gio Lopez * [facility] , [address] [facility] [id number] 0 11/20 CMP ALT/S GPT U/L 0.0 49.0 33 FINAL Gio Lopez * [facility] , [address] [facility] [id number] 0 11/20 CMP AST/S GOT U/L 17.0 59.0 45 FINAL Gio Lopez * [facility] , [address] [facility] [id number] 0 11/20 CMP BUN mg/dL 9.0 20.0 26.0 High FINAL iGo Lopez * [facility] , [address] [facility] [id number] 0 11/20 CMP Calci um mg/dL 8.4 10.2 7.4 Criti ninoska Low FINAL Gio Lopez * [facility] , [address] [facility] [id number] 0 11/20 CMP Chlor viola mmol/L 96.0 107.0 107 FINAL Gio Lopez * [facility] , [address] [facility] [id number] 0 11/20 CMP CO2 mmol/L 22.0 30.0 [...] hour stability window. FINAL Gio Lopez * [facility] , [address] [facility] [id number] 0 11/20 CMP Creat inine mg/dL 0.66 1.25 1.60 High FINAL Gio Lopez * [facility] , [address] [facility] [id number] 0 11/20 CMP GFR estim ate ml/min /1.73m ^2 43.2 Low GFR is calculate d using the CKD-EPI equation. FINAL Gio Lopez * [facility] , [address] [facility] [id number] 0 11/20 CMP Gluco se mg/dL 74.0 100.0 99 FINAL Gio Lopez * [facility] , [address] [facility] [id number] 0 11/20 CMP Potas sium mmol/L 3.5 5.1 4.3 FINAL Gio Lopez * [facility] , [address] [facility] [id number] 0 11/20 CMP Sodiu m mmol/L 137.0 145.0 137 FINAL Gio Lopez * [facility] , [address] [facility] [id number] 0 11/20 CMP Bilir ubin, total mg/dL 0.2 1.3 0.5 FINAL Gio Lopez * [facility] , [address] [facility] [id number] 0 11/20 CMP Total prote in g/dL 6.3 8.2 5.1 Low FINAL Gio Lopez * [facility] , [address] [facility] [id number] 0 11/20 CBC w/ auto diff WBC K/uL 3.0 8.9 6.0 FINAL Gio Lopez [facility] , [address] [facility] [id number] 0 11/20 CBC w/ auto diff HGB g/dL 12.5 16.6 11.3 Low FINAL Gio Lopez [place] [facility] , [address] [place] [id number] 0 11/20 CBC w/ auto diff PLT K/uL 113.0 364.0 139 FINAL Gio Lopez [place] [facility] [place] [facility] , [address] [place] [id number] 0 11/20 CBC w/ auto diff Tatyana # (ANC) K/uL 1.6 6.6 4.0 FINAL Gio Lopez [place] [facility] [place] [facility] , [address] [place] [id number] 0 11/20 CBC w/ auto diff Tatyana % % 43.0 74.0 67.3 FINAL Gio Lopez [place] [facility] , [address] [place] [id number] 0 11/20 CBC w/ auto diff IG % % 0.0 0.5 0.2 FINAL Gio Lopez [place] [facility] , [address] [place] [id number] 0 11/20 CBC w/ auto diff IG # K/uL 0.0 0.03 0.01 FINAL Gio Lopez [place] [facility] [place] [facility] , [address] [place] [id number] 0 11/20 CBC w/ auto diff LY % % 14.0 41.0 23.4 FINAL Gio Lopez [place] [facility] , [address] [place] [id number] 0 11/20 CBC w/ auto diff MO % % 6.0 15.0 7.6 FINAL Gio Lopez [place] [facility] [place] [facility] , [address] [place] [id number] 0 11/20 CBC w/ auto diff EO % % 0.0 7.0 1.3 FINAL Gio Lopez [place] [facility] , [address] [place] [id number] 0 11/20 CBC w/ auto diff BA % % 0.0 2.0 0.2 FINAL Gio Lopez [place] [facility] , [address] [place] [id number] 0 11/20 CBC w/ auto diff LY # K/uL 0.4 3.6 1.4 FINAL Gio Lopez [place] [facility] [place] [facility] , [address] [place] [id number] 0 11/20 CBC w/ auto diff MO # K/uL 0.2 1.3 0.5 FINAL Gio Lopez [place] [facility] , [address] [place] [id number] 0 11/20 CBC w/ auto diff EO # K/uL 0.0 0.6 0.1 FINAL Gio Lopez [place] [facility] , [address] [place] [id number] 0 11/20 CBC w/ auto diff BA # K/uL 0.0 0.2 0.0 FINAL Gio Lopez [place] [facility] , [address] [place] [id number] 0 11/20 CBC w/ auto diff NRBC % #/100W BC 0.0 0.2 0.0 FINAL Gio Lopez [place] [facility] , [address] [place] [id number] 0 11/20 CBC w/ auto diff RBC M/uL 4.2 5.6 3.24 Low FINAL Gio Lopez [place] [facility] , [address] [place] [id number] 0 11/20 CBC w/ auto diff HCT % 39.0 49.0 33.6 Low FINAL Gio Lopez [place] [facility] [place] [facility] , [address] [place] [id number] 0 11/20 CBC w/ auto diff MCV fL 80.0 104.0 103.7 FINAL Gio Lopez [place] [facility] , [address] [place] [id number] 0 11/20 CBC w/ auto diff MCH pg 26.0 35.0 34.9 FINAL [facility] [facility] , [address] [place] [id number] 0 11/20 CBC w/ auto diff MCHC g/dL 30.0 35.0 33.6 FINAL [place] [facility] , [address] [place] [id number] 0 11/20 CBC w/ auto diff MPV fL 9.5 13.4 10.2 FINAL [facility] [facility] , [address] [place] [id number] 0 11/20 CBC w/ auto diff RDW % 11.3 15.6 16.60 High FINAL [facility] [place] [facility] [place] [facility] , [address] [place] [id number] 0 11/20 Prote in/cr eatin ine ratio , rando m urine panel CREAT ININE , RANDO M URINE mg/dL 20.0 320.0 41 FINAL Gio VALDES, [employer] [facility] [address] [facility] [id number] 4 11/20 Prote in/cr eatin ine ratio , rando m urine panel PROTE IN/CR EATIN INE RATIO mg/gcr eat 25.0 148.0 3634 High FINAL Gio VALDES, [employer] [facility] [address] [facility] [id number] 4 11/20 Prote in/cr eatin ine ratio , rando m urine panel PROTE IN/CR EATIN INE RATIO mg/mgc reat 0.025 0.148 3.634 High FINAL Gio VALDES, [employer] [facility] [address] [facility] [id number] 4 11/20 Prote in/cr eatin ine ratio , rando m urine panel PROTE IN, TOTAL , RANDO M UR mg/dL 5.0 25.0 149 High FINAL Gio VALDES, [employer] [facility] [address] [facility] [id number] 4 Medications Date Name Route Dose Frequency [...] kidney disease Active Oropharyngeal dysphagia Active Other care home (current) drug therapy Active Acute kidney [...] smoker. ??No significant alcohol use.?? Lives with in??[place]He was in the [employer]??and served in [employer].?? They traveled to??[facility]??for the winter months. Vital Signs Blood pressure: 158/78, Pulse: 65, Temperature: 97.3 F, Respirations: 16, O2 sat: 96%, Pain Scale: 0, Height: 68 in, Weight: 164.2 lb, BSA: 1.88, BMI: 24.97 kg/m2 Covid-19 vaccine ([employer]) (05/21/2022); Covid-19 vaccine ([employer]) (06/01/2024); Covid-19 vaccine (Pfizer) (01/01/2022); Covid-19 vaccine [...] smoker. ??No significant alcohol use.?? Lives [place] in??[place].?He was in the [employer]??and served in [place].?? They traveled to??[facility]??for the winter months. Vital Signs Blood [...]
--- OUTSIDE RECORDS SUMMARY | 2024-12-31 12:13 | XMS_ITS ---
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 Oropharyngeal dyspha yanet 10/28/2022 Other prison (cur rent) drug therapy 10/28/2022 Poor appetite [...] [facility] [place], [address] [place] [phone] 0 Phone: () - 11/11 CBC w/ auto diff HGB g/dL 12.5 16.6 14.1 FINAL Gio [facility] [place], [address] [place] [phone] 0 Phone: () - 11/11 CBC w/ auto diff PLT K/uL 113.0 364.0 161 FINAL [facility] [place], [address] [place] [phone] 0 Phone: () - 11/11 CBC w/ auto diff Tatyana # (ANC) K/uL 1.6 6.6 2.9 FINAL [facility]io [facility] [place], [address] [place] [phone] 0 Phone: () - 11/11 CBC w/ auto diff Tatyana % % 43.0 74.0 57.4 FINAL [facility] [place], [address] [place] [id number] 0 Phone: () - 11/11 CBC w/ auto diff IG % % 0.0 0.5 0.2 FINAL [facility] [place], [address] [place] [id number] 0 Phone: () - 11/11 CBC w/ auto diff IG # K/uL 0.0 0.03 0.01 FINAL [facility] [place], [address] [place] [phone] 0 Phone: () - 11/11 CBC w/ auto diff LY % % 14.0 41.0 32.1 FINAL [facility] [place], [address] [place] [phone] 0 Phone: () - 11/11 CBC w/ auto diff MO % % 6.0 15.0 8.7 FINAL [facility] [place], [address] [place] [id number] 0 Phone: () - 11/11 CBC w/ auto diff EO % % 0.0 7.0 1.2 FINAL [facility] [place], [address] [place] [id number] 0 Phone: () - 11/11 CBC w/ auto diff BA % % 0.0 2.0 0.4 FINAL [facility] [place], [address] [place] [phone] 0 Phone: () - 11/11 CBC w/ auto diff LY # K/uL 0.4 3.6 1.6 FINAL [facility] [place], [address] [place] [id number] 0 Phone: () - 11/11 CBC w/ auto diff MO # K/uL 0.2 1.3 0.4 FINAL [facility] [place], [address] [place] [phone] 0 Phone: () - 11/11 CBC w/ auto diff EO # K/uL 0.0 0.6 0.1 FINAL [facility] [place], [address] [place] [id number] 0 Phone: () - 11/11 CBC w/ auto diff BA # K/uL 0.0 0.2 0.0 FINAL [facility] [place], [address] [place] [id number] 0 Phone: () - 11/11 CBC w/ auto diff NRBC % #/100W BC 0.0 0.2 0.0 FINAL [facility] [place], [address] [place] [id number] 0 Phone: () - 11/11 CBC w/ auto diff RBC M/uL 4.2 5.6 4.50 FINAL [facility] [place], [address] [place] [id number] 0 Phone: () - 11/11 CBC w/ auto diff HCT % 39.0 49.0 41.2 FINAL [facility] [place], [address] [place] [id number] 0 Phone: () - 11/11 CBC w/ auto diff MCV fL 80.0 104.0 91.6 FINAL [facility] [place], [address] [place] [id number] 0 Phone: () - 11/11 CBC w/ auto diff MCH pg 26.0 35.0 31.3 FINAL [facility] [place], [address] [place] [id number] 0 Phone: () - 11/11 CBC w/ auto diff MCHC g/dL 30.0 35.0 34.2 FINAL [facility] [place], [address] [place] [id number] 0 Phone: () - 11/11 CBC w/ auto diff MPV fL 9.5 13.4 10.6 FINAL [facility], [address] [facility] [address] [facility] [id number] 0 Phone: () - 11/11 CBC w/ auto diff RDW % 11.3 15.6 13.30 FINAL [facility], [address] [facility] [address] [facility] [place] [phone] 0 Phone: () - 11/11 TSH w/ refle x to free T4 TSH uIU/ml 0.32 5.0 3.07 Test performed at [facility] on a [employer] Immunoass ay Analyzer that uses an immunoenz ymometric sandwich assay for analysis. Patient testing should not be performed using multiple methodolo gies due to analytica l variation seen between test methodolo gies. FINAL Gio chapman [facility] [address] [place] [phone] Phone: () - 11/11 CMP Album in g/dL 3.2 5.2 4.4 FINAL Gio [facility]man [place] [address] [address] [facility] [address] [id number] 0 Phone: () - 11/11 CMP Alkal ine phosp hatas e U/L 46.0 116.0 64 FINAL Gio chapman [facility] [address] [id number] 0 Phone: () - 11/11 CMP ALT/S GPT U/L 7.0 40.0 18 FINAL Gio chapman [facility] [address] [place] [address] [id number] [phone] Phone: () - 11/11 CMP AST/S GOT U/L 13.0 40.0 20 FINAL Gio chapman [place] [address] [place] [address] [id number] 0 Phone: () - 11/11 CMP BUN mg/dL 9.0 23.0 23.0 FINAL Gio chapman [place] [address] [place] [address] [id number] 0 Phone: () - 11/11 CMP Calci um mg/dL 8.7 10.4 9.3 FINAL Gio chapman [place] [address] [id number] 0 Phone: () - 11/11 CMP Chlor marissa mmol/L 96.0 114.0 106 FINAL Gio chapman [place] [address] [id number] 0 Phone: () - 11/11 CMP CO2 [...] 96 hour stability window. FINAL Gio chapman [place] [address] [id number] 0 Phone: () - 11/11 CMP Creat inine mg/dL 0.5 1.2 1.90 High FINAL Gio chapman [place] [address] [id number] 0 Phone: () - 11/11 CMP GFR estim ate ml/min /1.73m ^2 35.6 Low GFR is calculate d using the CKD-EPI equation. FINAL Gio chapman [place] [address] [id number] 0 Phone: () - 11/11 CMP Gluco se mg/dL 73.0 126.0 141 High FINAL Gio chapman [place] [address] [address] [facility] [address] [id number] 0 Phone: () - 11/11 CMP Potas sium mmol/L 3.5 5.1 4.9 FINAL Gio chapman [facility] [address] [id number] 0 Phone: () - 11/11 CMP Sodiu m mmol/L 136.0 145.0 140 FINAL Gio chapman [facility] [address] [id number] 0 Phone: () - 11/11 CMP Bilir ubin, total mg/dL 0.3 1.2 0.5 FINAL Gio chapman [facility] [address] [facility] [address] [id number] 0 Phone: () - 11/11 CMP Total prote in g/dL 5.7 8.2 7.4 FINAL Gio chapman [place] [address] [address] [facility] [address] [id number] 0 Phone: () - 12/03 TSH w/ refle x to free T4 TSH uIU/ml 0.32 5.0 6.97 High Test performed at [facility] on a [employer] 2000 Immunoass ay Analyzer that uses an immunoenz ymometric sandwich assay for analysis. Patient testing should not be performed using multiple methodolo gies due to analytica l variation seen between test methodolo gies. FINAL iGo chapman [place] [address] [phone] 0 Phone: () - 12/03 T4, free panel T4, free ng/dL 0.7 1.8 0.74 Test performed at [facility] on a [employer] 2000 Immunoass ay Analyzer that uses an immunoenz ymometric sandwich assay for analysis. Patient testing should not be performed using multiple methodolo gies due to analytica l variation seen between test methodolo gies. FINAL Gio chapman [place] [address] [id number] 0 Phone: () - 12/03 CMP Album in g/dL 3.2 5.2 4.5 FINAL Gio chapman [place] [address] [address] [facility] [address] [id number] 0 Phone: () - 12/03 CMP Alkal ine phosp hatas e U/L 46.0 116.0 66 FINAL Gio [facility] [address] [facility] [address] [place] [address] [id number] 0 Phone: () - 12/03 CMP ALT/S GPT U/L 7.0 40.0 14 FINAL Gio [facility] [address] [facility] [address] [facility] [id number] 0 Phone: () - 12/03 CMP AST/S GOT U/L 13.0 40.0 22 FINAL Gio chapman [facility], [address] [facility] [address] [facility] [id number] 0 Phone: () - 12/03 CMP BUN mg/dL 9.0 23.0 29.0 High FINAL Gio [facility] [address] [facility] [address] [facility] [id number] 0 Phone: () - 12/03 CMP Calci um mg/dL 8.7 10.4 9.7 FINAL Gio chapman [place] [address] [address] [facility] 100 [facility] [id number] 0 Phone: () - 12/03 CMP Chlor marissa mmol/L 96.0 114.0 105 FINAL Gio chapman [place] [address] [id number] 0 Phone: () - 12/03 CMP CO2 [...] 96 hour stability window. FINAL Gio chapman [facility], [facility] [address] [phone] 0 Phone: () - 12/03 CMP Creat inine mg/dL 0.5 1.2 2.04 High FINAL Gio chapman [facility], [address] [facility] [address] [id number] 0 Phone: () - 12/03 CMP GFR estim ate ml/min /1.73m ^2 32.7 Low GFR is calculate d using the CKD-EPI equation. FINAL Gio chapman [facility], [facility] [address] [facility] 100 [facility] [id number] 0 Phone: () - 12/03 CMP Gluco se mg/dL 73.0 126.0 123 FINAL Gio chapman [facility], [address] [facility] [id number] 0 Phone: () - 12/03 CMP Potas sium mmol/L 3.5 5.1 4.8 FINAL Gio chapman [facility], [address] [facility] [id number] 0 Phone: () - 12/03 CMP Sodiu m mmol/L 136.0 145.0 138 FINAL Gio chapman [facility], [address] [facility] [id number] 0 Phone: () - 12/03 CMP Bilir ubin, total mg/dL 0.3 1.2 0.5 FINAL Gio chapman [facility], [address] [facility] [id number] 0 Phone: () - 12/03 CMP Total prote in g/dL 5.7 8.2 7.7 FINAL Gio [facility]man [facility], [address] [facility] [phone] 0 Phone: () - 12/03 CBC w/ auto diff WBC K/uL 3.0 8.9 4.2 FINAL [facility]io [facility] - [place], [address] [facility] [phone] 0 Phone: () - 12/03 CBC w/ auto diff HGB g/dL 12.5 16.6 14.9 FINAL Gio [facility] - [place], [address] [facility] [place] [phone] 0 Phone: () - 12/03 CBC w/ auto diff PLT K/uL 113.0 364.0 138 FINAL [facility] - [place], [address] [place] [id number] 0 Phone: () - 12/03 CBC w/ auto diff Tatyana # (ANC) K/uL 1.6 6.6 2.8 FINAL [facility] - [place], [address] [place] [id number] 0 Phone: () - 12/03 CBC w/ auto diff Tatyana % % 43.0 74.0 66.0 FINAL [facility] [place], [address] [place] [id number] 0 Phone: () - 12/03 CBC w/ auto diff IG % % 0.0 0.5 0.2 FINAL [facility] [place], [address] [place] [id number] 0 Phone: () - 12/03 CBC w/ auto diff IG # K/uL 0.0 0.03 0.01 FINAL [facility] [place], [address] [place] [id number] 0 Phone: () - 12/03 CBC w/ auto diff LY % % 14.0 41.0 22.9 FINAL [facility] [place], [address] [place] [id number] 0 Phone: () - 12/03 CBC w/ auto diff MO % % 6.0 15.0 8.3 FINAL [facility]io [facility] - [place], [address] [place] [id number] 0 Phone: () - 12/03 CBC w/ auto diff EO % % 0.0 7.0 2.1 FINAL [facility] [place], [address] [place] [id number] 0 Phone: () - 12/03 CBC w/ auto diff BA % % 0.0 2.0 0.5 FINAL [facility] [place], [address] [place] [id number] 0 Phone: () - 12/03 CBC w/ auto diff LY # K/uL 0.4 3.6 1.0 FINAL [facility]io [facility] - [place], [address] [place] [id number] 0 Phone: () - 12/03 CBC w/ auto diff MO # K/uL 0.2 1.3 0.4 FINAL [facility] - [place], [address] [place] [id number] 0 Phone: () - 12/03 CBC w/ auto diff EO # K/uL 0.0 0.6 0.1 FINAL [facility] - [place], [address] [place] [id number] 0 Phone: () - 12/03 CBC w/ auto diff BA # K/uL 0.0 0.2 0.0 FINAL [facility] - [place], [address] [place] [id number] 0 Phone: () - 12/03 CBC w/ auto diff NRBC % #/100W BC 0.0 0.2 0.0 FINAL [facility] - [place], [address] [place] [id number] 0 Phone: () - 12/03 CBC w/ auto diff RBC M/uL 4.2 5.6 4.71 FINAL [facility] - [place], [address] [place] [id number] 0 Phone: () - 12/03 CBC w/ auto diff HCT % 39.0 49.0 43.8 FINAL [facility] - [place], [address] [place] [id number] 0 Phone: () - 12/03 CBC w/ auto diff MCV fL 80.0 104.0 93.0 FINAL [facility] - [place], [address] [place] [id number] 0 Phone: () - 12/03 CBC w/ auto diff MCH pg 26.0 35.0 31.6 FINAL [facility] - [place], [address] [place] [id number] 0 Phone: () - 12/03 CBC w/ auto diff MCHC g/dL 30.0 35.0 34.0 FINAL [facility]io [facility] - [place], [address] [place] [id number] 0 Phone: () - 12/03 CBC w/ auto diff MPV fL 9.5 13.4 10.6 FINAL [facility] - [place], [address] [place] [id number] 0 Phone: () - 12/03 CBC w/ auto diff RDW % 11.3 15.6 13.30 FINAL [facility] - [place], [address] [place] [id number] 0 Phone: () - 12/07 iSTAT creat inine panel Creat inine , iSTAT mg/dl 0.6 1.3 1.9 High FINAL [facility]io [facility] - [place], [address] [place] [id number] 0 Phone: () - 12/07 iSTAT creat inine panel GFR estim ate ml/min /1.73m ^2 35.6 Low GFR is calculate d using the CKD-EPI equation. FINAL [facility]io [facility] - [place], [address] [place] [id number] 0 Phone: () - 12/14 iSTAT creat inine panel Creat inine , iSTAT mg/dl 0.6 1.3 2.3 High FINAL Gio [facility] - [place], [address] [place] [id number] 0 Phone: () - 12/14 iSTAT creat inine panel GFR estim ate ml/min /1.73m ^2 28.3 Low GFR is calculate d using the CKD-EPI equation. FINAL Gio [facility] - [place], [address] [place] [id number] 0 Phone: () - 12/24 CBC w/ auto diff WBC K/uL 3.0 8.9 3.7 FINAL Gio [facility] - [place], [address] [place] [id number] 0 Phone: () - 12/24 CBC w/ auto diff HGB g/dL 12.5 16.6 13.7 FINAL Gio [facility] - [place], [address] [place] [id number] 0 Phone: () - 12/24 CBC w/ auto diff PLT K/uL 113.0 364.0 148 FINAL Gio [facility] - [place], [address] [place] [id number] 0 Phone: () - 12/24 CBC w/ auto diff Tatyana # (ANC) K/uL 1.6 6.6 2.7 FINAL Gio [facility] - [place], [address] [place] [id number] 0 Phone: () - 12/24 CBC w/ auto diff Tatyana % % 43.0 74.0 73.4 FINAL Gio [facility] - [place], [address] [place] [id number] 0 Phone: () - 12/24 CBC w/ auto diff IG % % 0.0 0.5 0.3 FINAL Gio [facility] - [place], [address] [place] [id number] 0 Phone: () - 12/24 CBC w/ auto diff IG # K/uL 0.0 0.03 0.01 FINAL Gio [facility] - [place], [address] [place] [id number] 0 Phone: () - 12/24 CBC w/ auto diff LY % % 14.0 41.0 18.6 FINAL Gio [facility] - [place], [address] [place] [id number] 0 Phone: () - 12/24 CBC w/ auto diff MO % % 6.0 15.0 6.6 FINAL Gio [facility] - [place], [address] [place] [id number] 0 Phone: () - 12/24 CBC w/ auto diff EO % % 0.0 7.0 0.8 FINAL Gio [facility] - [place], [address] [place] [id number] 0 Phone: () - 12/24 CBC w/ auto diff BA % % 0.0 2.0 0.3 FINAL Gio [facility] - [place], [address] [place] [id number] 0 Phone: () - 12/24 CBC w/ auto diff LY # K/uL 0.4 3.6 0.7 FINAL Gio [facility] - [place], [address] [place] [id number] 0 Phone: () - 12/24 CBC w/ auto diff MO # K/uL 0.2 1.3 0.2 FINAL Gio [facility] - [place], [address] [place] [id number] 0 Phone: () - 12/24 CBC w/ auto diff EO # K/uL 0.0 0.6 0.0 FINAL Gio [facility] - [place], [address] [place] [id number] 0 Phone: () - 12/24 CBC w/ auto diff BA # K/uL 0.0 0.2 0.0 FINAL [facility]io [facility] - [place], [address] [place] [id number] 0 Phone: () - 12/24 CBC w/ auto diff NRBC % #/100W BC 0.0 0.2 0.0 FINAL [facility]io [facility] [place], [address] [place] [id number] 0 Phone: () - 12/24 CBC w/ auto diff RBC M/uL 4.2 5.6 4.30 FINAL [facility]io [facility] - [place], [address] [place] [id number] 0 Phone: () - 12/24 CBC w/ auto diff HCT % 39.0 49.0 40.5 FINAL Gio [facility] - [place], [address] [place] [id number] 0 Phone: () - 12/24 CBC w/ auto diff MCV fL 80.0 104.0 94.2 FINAL Gio [facility] - [place], [address] [place] [id number] 0 Phone: () - 12/24 CBC w/ auto diff MCH pg 26.0 35.0 31.9 FINAL Gio [facility] - [place], [address] [place] [id number] 0 Phone: () - 12/24 CBC w/ auto diff MCHC g/dL 30.0 35.0 33.8 FINAL Gio [facility] - [place], [address] [place] [id number] 0 Phone: () - 12/24 CBC w/ auto diff MPV fL 9.5 13.4 10.6 FINAL [facility]io [facility] - [place], [address] [place] [id number] 0 Phone: () - 12/24 CBC w/ auto diff RDW % 11.3 15.6 13.40 FINAL [facility] - [place], [address] [place] [id number] 0 Phone: () - 12/24 CMP Album in g/dL 3.2 5.2 4.1 FINAL Gio [facility] - [place], [address] [place] [id number] 0 Phone: () - 12/24 CMP Alkal ine phosp hatas e U/L 46.0 116.0 57 FINAL Gio chapman [facility], [address] [facility] 100 [facility] [id number] 0 Phone: () - 12/24 CMP ALT/S GPT U/L 7.0 40.0 18 FINAL Gio [facility] [address] [facility] 100 [facility] [id number] 0 Phone: () - 12/24 CMP AST/S GOT U/L 13.0 40.0 18 FINAL Gio chapman [place] [address] [address] [facility] [address] [facility] [id number] 0 Phone: () - 12/24 CMP BUN mg/dL 9.0 23.0 21.0 FINAL Gio chapman [place] [address] [address] [facility] [address] [id number] 0 Phone: () - 12/24 CMP Calci um mg/dL 8.7 10.4 9.4 FINAL Gio chapman [place] [address] [address] [facility] [address] [facility] [id number] 0 Phone: () - 12/24 CMP Chlor marissa mmol/L 96.0 114.0 108 FINAL Gio chapman [facility], [address] [facility] [address] [id number] 0 Phone: () - 12/24 CMP CO2 [...] 96 hour stability window. FINAL Gio chapman [facility], [facility] [address] [facility] [address] [facility] [id number] 0 Phone: () - 12/24 CMP Creat inine mg/dL 0.5 1.2 1.46 High FINAL Gio chapman [facility], [facility] [address] [facility] [address] [id number] 0 Phone: () - 12/24 CMP GFR estim ate ml/min /1.73m ^2 48.8 Low GFR is calculate d using the CKD-EPI equation. FINAL Gio chapman [place] [address] [id number] 0 Phone: () - 12/24 CMP Gluco se mg/dL 73.0 126.0 166 High FINAL Gio chapman [place] [address] [id number] 0 Phone: () - 12/24 CMP Potas sium mmol/L 3.5 5.1 4.6 FINAL Gio chapman [place] [address] [id number] 0 Phone: () - 12/24 CMP Sodiu m mmol/L 136.0 145.0 141 FINAL Gio chapman [place] [address] [id number] 0 Phone: () - 12/24 CMP Bilir ubin, total mg/dL 0.3 1.2 0.4 FINAL Gio chapman [place] [address] [id number] 0 Phone: () - 12/24 CMP Total prote in g/dL 5.7 8.2 7.1 FINAL Gio chapman [place] [address] [id number] 0 Phone: () - 12/24 TSH w/ refle x to free T4 TSH uIU/ml 0.32 5.0 1.81 Test performed at [facility] on a [employer] 2000 Immunoass ay Analyzer that uses an immunoenz ymometric sandwich assay for analysis. Patient testing should not be performed using multiple kevin rowe due to analytica l variation seen between test kevin rowe. FINAL Gio chapman [place] [address] [phone] 0 Phone: () - 01/14 CBC w/ auto diff WBC K/uL 3.0 8.9 4.8 FINAL Mary Jane [facility], [address] [place] [id number] 0 Phone: () - 01/14 CBC w/ auto diff HGB g/dL 12.5 16.6 13.7 FINAL Mary Jane [facility] - [place], [address] [place] [id number] 0 Phone: () - 01/14 CBC w/ auto diff PLT K/uL 113.0 364.0 140 FINAL Mary Jane [facility] - [place], [address] [place] [id number] 0 Phone: () - 01/14 CBC w/ auto diff Tatyana # (ANC) K/uL 1.6 6.6 3.1 FINAL Mary Jane [facility] - [place], [address] [place] [id number] 0 Phone: () - 01/14 CBC w/ auto diff Tatyana % % 43.0 74.0 64.5 FINAL Mary Jane [facility] - [place], [address] [place] [id number] 0 Phone: () - 01/14 CBC w/ auto diff IG % % 0.0 0.5 0.4 FINAL Mary Jane chap[facility] - [place], [address] [place] [id number] 0 Phone: () - 01/14 CBC w/ auto diff IG # K/uL 0.0 0.03 0.02 FINAL Mary Jane [facility] - [place], [address] [place] [id number] 0 Phone: () - 01/14 CBC w/ auto diff LY % % 14.0 41.0 24.1 FINAL Mary Jane [facility] - [place], [address] [place] [id number] 0 Phone: () - 01/14 CBC w/ auto diff MO % % 6.0 15.0 9.6 FINAL Mary Jane [facility] - [place], [address] [place] [id number] 0 Phone: () - 01/14 CBC w/ auto diff EO % % 0.0 7.0 1.0 FINAL Mary Jane chap[facility] - [place], [address] [place] [id number] 0 Phone: () - 01/14 CBC w/ auto diff BA % % 0.0 2.0 0.4 FINAL Mary Jane chap[facility] - [place], [address] [place] [id number] 0 Phone: () - 01/14 CBC w/ auto diff LY # K/uL 0.4 3.6 1.2 FINAL Mary Jane chap[facility] - [place], [address] [place] [id number] 0 Phone: () - 01/14 CBC w/ auto diff MO # K/uL 0.2 1.3 0.5 FINAL [facility] [place], [address] [place] [id number] 0 Phone: () - 01/14 CBC w/ auto diff EO # K/uL 0.0 0.6 0.1 FINAL [facility] [place], [address] [place] [id number] 0 Phone: () - 01/14 CBC w/ auto diff BA # K/uL 0.0 0.2 0.0 FINAL Mary Jane chapman [facility] [place], [address] [place] [phone] 0 Phone: () - 01/14 CBC w/ auto diff NRBC % #/100W BC 0.0 0.2 0.0 FINAL Mary Jane Interiano a [facility] - [place], [address] [place] [id number] 0 Phone: () - 01/14 CBC w/ auto diff RBC M/uL 4.2 5.6 4.25 FINAL Mary Jane chapman [facility] - [place], [address] [facility] [address] [place] [id number] 0 Phone: () - 01/14 CBC w/ auto diff HCT % 39.0 49.0 40.5 FINAL Mary Jane chapman [facility] - [place], [address] [facility] [address] [place] [id number] 0 Phone: () - 01/14 CBC w/ auto diff MCV fL 80.0 104.0 95.3 FINAL Mary Jane chapman [facility] - [place], [address] [place] [address] d [address] [place] [id number] 0 Phone: () - 01/14 CBC w/ auto diff MCH pg 26.0 35.0 32.2 FINAL Mary Jane chapman [facility] - [place], [address] [facility] [address] [place] [id number] 0 Phone: () - 01/14 CBC w/ auto diff MCHC g/dL 30.0 35.0 33.8 FINAL Mary Jane Interiano ari [facility] - [place], [address] [facility] [address] [place] [id number] 0 Phone: () - 01/14 CBC w/ auto diff MPV fL 9.5 13.4 10.4 FINAL Mary Jane Coronadoguero ari On[facility] - [place], [address] [facility] [address] [place] [id number] 0 Phone: () - 01/14 CBC w/ auto diff RDW % 11.3 15.6 13.70 FINAL Mary Jane Interiano ari [facility] - [place], [address] [place] [address] d [address] [place] [id number] 0 Phone: () - 01/14 CMP Album in g/dL 3.2 5.2 4.0 FINAL Mary Jane Ko Jaydon chapman [facility] - [place], [address] [facility] [id number] 0 Phone: () - 01/14 CMP Alkal ine phosp hatas e U/L 46.0 116.0 57 FINAL Mary Jane Ko [facility], [address] [facility] [facility] [id number] 0 Phone: () - 01/14 CMP ALT/S GPT U/L 7.0 40.0 19 FINAL Mary Jane Ko [place] [address] [address] [facility] [facility] [address] [address] [id number] 0 Phone: () - 01/14 CMP AST/S GOT U/L 13.0 40.0 17 FINAL [place]ass [place] [address] [address] [facility] [address] [id number] 0 Phone: () - 01/14 CMP BUN mg/dL 9.0 23.0 21.0 FINAL Mary Jane Ko [place] [address] [id number] 0 Phone: () - 01/14 CMP Calci um mg/dL 8.7 10.4 9.2 FINAL [place]jass [place] [address] [address] [facility] [address] [id number] 0 Phone: () - 01/14 CMP Chlor marissa mmol/L 96.0 114.0 104 FINAL Mary [place]jass [place] [address] [id number] 0 Phone: () - 01/14 CMP CO2 [...] 96 hour stability window. FINAL [facility] [address] [facility] [address] [facility] [place] [address] [phone] 0 Phone: () - 01/14 CMP Creat inine mg/dL 0.5 1.2 1.71 High FINAL [place]ass [place] [address] [id number] 0 Phone: () - 01/14 CMP GFR estim ate ml/min /1.73m ^2 40.3 Low GFR is calculate d using the CKD-EPI equation. FINAL Mary Jane Ko [place] [address] [id number] 0 Phone: () - 01/14 CMP Gluco se mg/dL 73.0 126.0 119 FINAL Mary Jane Ko [address] [id number] 0 Phone: () - 01/14 CMP Potas sium mmol/L 3.5 5.1 4.8 FINAL Mary Jane Ko [address] [id number] 0 Phone: () - 01/14 CMP Sodiu m mmol/L 136.0 145.0 140 FINAL Mary Jane Ko [place] [address] [id number] 0 Phone: () - 01/14 CMP Bilir ubin, total mg/dL 0.3 1.2 0.4 FINAL Mary Jane Ko [place] [address] [id number] 0 Phone: () - 01/14 CMP Total prote in g/dL 5.7 8.2 7.0 FINAL Mary Janejass Ko [address] [id number] 0 Phone: () - 01/14 TSH w/ refle x to free T4 TSH uIU/ml 0.32 5.0 4.77 Test performed at [facility] on a [employer] Immunoass ay Analyzer that uses an immunoenz ymometric sandwich assay for analysis. Patient testing should not be performed using multiple methodgénesis rowe due to analytica l variation seen between test methodgénesis rowe. FINAL Mary Jane Ko [address] [phone] 0 Phone: () - 02/04 CBC w/ auto diff IG # K/uL 0.0 0.03 0.02 FINAL Mary Jane chapman [facility] - [place], [address] [place] [id number] 0 Phone: () - 02/04 CBC w/ auto diff LY % % 14.0 41.0 19.2 FINAL Mary Jane chapman [facility] - [place], [address] [place] [id number] 0 Phone: () - 02/04 CBC w/ auto diff MO % % 6.0 15.0 7.9 FINAL Mary Jane chapman [facility] - [place], [address] [place] [id number] 0 Phone: () - 02/04 CBC w/ auto diff EO % % 0.0 7.0 3.6 FINAL Mary Jane chapman [facility] - [place], [address] [place] [id number] 0 Phone: () - 02/04 CBC w/ auto diff BA % % 0.0 2.0 0.7 FINAL Mary Jane chapman [facility] - [place], [address] [place] [id number] 0 Phone: () - 02/04 CBC w/ auto diff LY # K/uL 0.4 3.6 0.9 FINAL Mary Jane chapman [facility] - [place], [address] [place] [id number] 0 Phone: () - 02/04 CBC w/ auto diff MO # K/uL 0.2 1.3 0.4 FINAL Mary Jane chapman [facility] - [place], [address] [place] [id number] 0 Phone: () - 02/04 CBC w/ auto diff EO # K/uL 0.0 0.6 0.2 FINAL Mary Jane Interiano a [facility] - [place], [address] [place] [id number] 0 Phone: () - 02/04 CBC w/ auto diff BA # K/uL 0.0 0.2 0.0 FINAL Mary Jane chapman [facility] - [place], [address] [facility] [address] [place] [id number] 0 Phone: () - 02/04 CBC w/ auto diff NRBC % #/100W BC 0.0 0.2 0.0 FINAL Mary Jane chapman [facility] - [place], [address] [facility] [address] [place] [id number] 0 Phone: () - 02/04 CBC w/ auto diff RBC M/uL 4.2 5.6 4.12 Low FINAL Mary Jane chapman [facility] - [place], [address] [facility] [address] [place] [id number] 0 Phone: () - 02/04 CBC w/ auto diff HCT % 39.0 49.0 39.9 FINAL Mary Jane chapman [facility] - [place], [address] [place] [address] [address] [place] [id number] 0 Phone: () - 02/04 CBC w/ auto diff MCV fL 80.0 104.0 96.8 FINAL Mary Jane Interiano ari [facility] - [place], [address] [facility] [address] [place] [id number] 0 Phone: () - 02/04 CBC w/ auto diff MCH pg 26.0 35.0 33.0 FINAL Mary Jane chapman [facility] - [place], [address] [place] [address] d [address] [place] [id number] 0 Phone: () - 02/04 CBC w/ auto diff MCHC g/dL 30.0 35.0 34.1 FINAL Mary Jane chapman [facility] - [place], [address] [place] [address] d [address] [place] [id number] 0 Phone: () - 02/04 CBC w/ auto diff MPV fL 9.5 13.4 10.3 FINAL Mary Jane Coronadoot a [facility] - [place], [address] [place] [id number] 0 Phone: () - 02/04 CBC w/ auto diff RDW % 11.3 15.6 13.40 FINAL Mary Jane Coronadoot a [facility] - [place], [address] [place] [id number] 0 Phone: () - 02/04 CBC w/ auto diff WBC K/uL 3.0 8.9 4.4 FINAL Mary Jane Coronadoot a [facility] - [place], [address] [place] [id number] 0 Phone: () - 02/04 CBC w/ auto diff HGB g/dL 12.5 16.6 13.6 FINAL Mary Jane Coronadoot a [facility] - [place], [address] [place] [id number] 0 Phone: () - 02/04 CBC w/ auto diff PLT K/uL 113.0 364.0 151 FINAL Mary Jane Interiano a [facility] - [place], [address] [place] [id number] 0 Phone: () - 02/04 CBC w/ auto diff Tatyana # (ANC) K/uL 1.6 6.6 3.0 FINAL Mary Jane Interiano a [facility] - [place], [address] [place] [id number] 0 Phone: () - 02/04 CBC w/ auto diff Tatyana % % 43.0 74.0 68.1 FINAL Mary Jane Interiano a [facility] - [place], [address] [place] [id number] 0 Phone: () - 02/04 CBC w/ auto diff IG % % 0.0 0.5 0.5 FINAL Mary Jane Interiano a [facility] - [place], [address] [place] [id number] 0 Phone: () - 02/04 TSH w/ refle x to free T4 TSH uIU/ml 0.32 5.0 4.63 Test performed at [facility] on a [employer] 2000 Immunoass ay Analyzer that uses an immunoenz ymometric sandwich assay for analysis. Patient testing should not be performed using multiple kevin rowe due to analytica l variation seen between test kevin rowe. FINAL Mary Jane [place] [address] [id number] 0 Phone: () - 02/04 CMP Album in g/dL 3.2 5.2 4.0 FINAL Mary Janejass Ko [place] [address] [id number] 0 Phone: () - 02/04 CMP ALT/S GPT U/L 7.0 40.0 15 FINAL Mary Jane [place] [address] [id number] 0 Phone: () - 02/04 CMP AST/S GOT U/L 13.0 40.0 19 FINAL [place]jass [place] [address] [id number] 0 Phone: () - 02/04 CMP BUN mg/dL 9.0 23.0 21.0 FINAL Mary Jane [place] [address] [id number] 0 Phone: () - 02/04 CMP Alkal ine phosp hatas e U/L 46.0 116.0 56 FINAL [place] [address] [id number] 0 Phone: () - 02/04 CMP Calci um mg/dL 8.7 10.4 9.1 FINAL [place] [address] [id number] 0 Phone: () - 02/04 CMP Chlor marissa mmol/L 96.0 114.0 107 FINAL [place] [address] [id number] 0 Phone: () - 02/04 CMP CO2 [...] 96 hour stability window. [facility] [address] [id number] 0 Phone: () - 02/04 CMP Creat inine mg/dL 0.5 1.2 1.71 High FINAL Mary Jane Ko [place] [address] [id number] 0 Phone: () - 02/04 CMP GFR estim ate ml/min /1.73m ^2 40.3 Low GFR is calculate d using the CKD-EPI equation. FINAL Mary Jane [place] [address] [id number] 0 Phone: () - 02/04 CMP Gluco se mg/dL 73.0 126.0 140 High FINAL Mary Jane Ko [facility] [address] [id number] 0 Phone: () - 02/04 CMP Potas sium mmol/L 3.5 5.1 5.1 FINAL Mary Jane Ko [facility] [address] [id number] 0 Phone: () - 02/04 CMP Sodiu m mmol/L 136.0 145.0 139 FINAL Mary Jane Ko [facility] [address] [facility] [address] [id number] 0 Phone: () - 02/04 CMP Bilir ubin, total mg/dL 0.3 1.2 0.5 FINAL Mary Jane Ko [facility] [address] [facility] [id number] 0 Phone: () - 02/04 CMP Total prote in g/dL 5.7 8.2 6.9 FINAL Mary Jane Ko [facility] [address] [id number] 0 Phone: () - 02/25 TSH w/ refle x to free T4 TSH uIU/ml 0.32 5.0 5.06 High Test performed at [facility] on a [employer] 2000 Immunoass ay Analyzer that uses an immunoenz ymometric sandwich assay for analysis. Patient testing should not be performed using multiple methodolo gies due to analytica l variation seen between test methodolo gies. FINAL Gio chapman [place] [address] [address] [facility] [id number] 0 Phone: () - 02/25 T4, free panel T4, free ng/dL 0.7 1.8 0.81 Test performed at [facility] on a [employer] 2000 Immunoass ay Analyzer that uses an immunoenz ymometric sandwich assay for analysis. Patient testing should not be performed using multiple methodolo gies due to analytica l variation seen between test methodolo gies. FINAL Gio chapman [place] [address] [address] [facility] [id number] 0 Phone: () - 02/25 CMP Album in g/dL 3.2 5.2 4.2 FINAL Gio chapman [place] [address] [address] [facility] [address] [id number] 0 Phone: () - 02/25 CMP Alkal ine phosp hatas e U/L 46.0 116.0 58 FINAL Gio chapman [place] [address] [address] [facility] [address] [id number] 0 Phone: () - 02/25 CMP ALT/S GPT U/L 7.0 40.0 15 FINAL Gio chapman [place] [address] [address] [facility] [address] [id number] 0 Phone: () - 02/25 CMP AST/S GOT U/L 13.0 40.0 20 FINAL Gio chapman [place] [address] [address] [facility] [address] [id number] 0 Phone: () - 02/25 CMP BUN mg/dL 9.0 23.0 19.0 FINAL Gio chapman [place] [address] [id number] 0 Phone: () - 02/25 CMP Calci um mg/dL 8.7 10.4 9.3 FINAL Gio chapman [place] [address] [id number] 0 Phone: () - 02/25 CMP Chlor marissa mmol/L 96.0 114.0 108 FINAL Goi chapman [place] [address] [id number] 0 Phone: () - 02/25 CMP CO2 [...] 96 hour stability window. FINAL Gio chapman [place] [address] [id number] 0 Phone: () - 02/25 CMP Creat inine mg/dL 0.5 1.2 1.74 High FINAL Gio chapman [place] [address] [id number] 0 Phone: () - 02/25 CMP GFR estim ate ml/min /1.73m ^2 39.5 Low GFR is calculate d using the CKD-EPI equation. FINAL Gio chapman [place] [address] [id number] 0 Phone: () - 02/25 CMP Gluco se mg/dL 73.0 126.0 106 FINAL Gio chapman [place] [address] [id number] 0 Phone: () - 02/25 CMP Potas sium mmol/L 3.5 5.1 4.8 FINAL Gio chapman [place] [address] [id number] 0 Phone: () - 02/25 CMP Sodiu m mmol/L 136.0 145.0 141 FINAL Gio chapman [facility], [address] [place] [id number] 0 Phone: () - 02/25 CMP Bilir ubin, total mg/dL 0.3 1.2 0.5 FINAL Gio chapman [facility] - [place], [address] [place] [id number] 0 Phone: () - 02/25 CMP Total prote in g/dL 5.7 8.2 7.1 FINAL Gio chapman [facility] - [place], [address] [place] [id number] 0 Phone: () - 02/25 CBC w/ auto diff WBC K/uL 3.0 8.9 4.8 FINAL Gio chapman [facility] - [place], [address] [facility] [address] [facility] [place] [id number] 0 Phone: () - 02/25 CBC w/ auto diff HGB g/dL 12.5 16.6 13.6 FINAL Gio chapman [facility] - [place], [address] [facility] [address] [facility] [place] [id number] 0 Phone: () - 02/25 CBC w/ auto diff PLT K/uL 113.0 364.0 140 FINAL Gio chapman [facility] - [place], [address] [facility] [address] [facility] [place] [place] [id number] 0 Phone: () - 02/25 CBC w/ auto diff Tatyana # (ANC) K/uL 1.6 6.6 3.1 FINAL Gio chapman [facility] - [place], [address] [facility] [place] [id number] 0 Phone: () - 02/25 CBC w/ auto diff Tatyana % % 43.0 74.0 65.3 FINAL Gio cahpman [facility]cology - [place], [address] [facility] [place] [id number] 0 Phone: () - 02/25 CBC w/ auto diff IG % % 0.0 0.5 0.2 FINAL Gio chapman [facility] - [place], [facility] [address] [place] [id number] 0 Phone: () - 02/25 CBC w/ auto diff IG # K/uL 0.0 0.03 0.01 FINAL Goi Interiano a [facility] - [place], [address] [place] [id number] 0 Phone: () - 02/25 CBC w/ auto diff LY % % 14.0 41.0 23.6 FINAL Gio Coronadoot a [facility] - [place], [address] [place] [id number] 0 Phone: () - 02/25 CBC w/ auto diff MO % % 6.0 15.0 8.4 FINAL Gio Interiano a [facility] - [place], [address] [facility] [place] [id number] 0 Phone: () - 02/25 CBC w/ auto diff EO % % 0.0 7.0 2.3 FINAL Gio Interiano a [facility] - [place], [address] [facility] [address] [place] [id number] 0 Phone: () - 02/25 CBC w/ auto diff BA % % 0.0 2.0 0.2 FINAL Gio chapman [facility] - [place], [address] [place] [id number] 0 Phone: () - 02/25 CBC w/ auto diff LY # K/uL 0.4 3.6 1.1 FINAL Gio Interiano a [facility] - [place], [address] [place] [id number] 0 Phone: () - 02/25 CBC w/ auto diff MO # K/uL 0.2 1.3 0.4 FINAL Gio chapman [facility] - [place], [address] [place] [id number] 0 Phone: () - 02/25 CBC w/ auto diff EO # K/uL 0.0 0.6 0.1 FINAL Gio Interiano a [facility] - [place], [address] [place] [id number] 0 Phone: () - 02/25 CBC w/ auto diff BA # K/uL 0.0 0.2 0.0 FINAL Gio chapman [facility] - [place], [address] [place] [id number] 0 Phone: () - 02/25 CBC w/ auto diff NRBC % #/100W BC 0.0 0.2 0.0 FINAL Gio chapman [facility] - [place], [address] [place] [id number] 0 Phone: () - 02/25 CBC w/ auto diff RBC M/uL 4.2 5.6 4.20 FINAL Gio chapman [facility] - [place], [address] [place] [id number] 0 Phone: () - 02/25 CBC w/ auto diff HCT % 39.0 49.0 41.1 FINAL Gio chapman [facility] - [place], [address] [place] [id number] 0 Phone: () - 02/25 CBC w/ auto diff MCV fL 80.0 104.0 97.9 FINAL Gio chapman [facility] - [place], [address] [place] [id number] 0 Phone: () - 02/25 CBC w/ auto diff MCH pg 26.0 35.0 32.4 FINAL Gio chapman [facility] - [place], [address] [place] [id number] 0 Phone: () - 02/25 CBC w/ auto diff MCHC g/dL 30.0 35.0 33.1 FINAL Gio chapman [facility] - [place], [address] [place] [id number] 0 Phone: () - 02/25 CBC w/ auto diff MPV fL 9.5 13.4 10.6 FINAL Gio Coronadoot a [facility] - [place], [address] [facility] [id number] 0 Phone: () - 02/25 CBC w/ auto diff RDW % 11.3 15.6 13.30 FINAL Gio chapman [facility] [place] [facility], [address] [facility] [address] [facility] [id number] 0 Phone: () - 03/18 TSH w/ refle x to free T4 TSH uIU/ml 0.32 5.0 5.17 High Test performed at [facility] on a [employer] Immunoass ay Analyzer that uses an immunoenz ymometric sandwich assay for analysis. Patient testing should not be performed using multiple methodgénesis rowe due to analytica l variation seen between test methodgénesis rowe. FINAL Mary Jane [place] [address] [id number] 0 Phone: () - 03/18 CMP Album in g/dL 3.2 5.2 4.1 FINAL Mary Jane [place] [address] [id number] 0 Phone: () - 03/18 CMP Alkal ine phosp hatas e U/L 46.0 116.0 70 FINAL Mary Jane [place] [address] [id number] 0 Phone: () - 03/18 CMP ALT/S GPT U/L 7.0 40.0 16 FINAL Mary Jane [place] [address] [id number] 0 Phone: () - 03/18 CMP AST/S GOT U/L 13.0 40.0 21 FINAL Mary Jane [place] [address] [id number] 0 Phone: () - 03/18 CMP BUN mg/dL 9.0 23.0 23.0 FINAL Mary Jane Interiano [place] [address] [address] [place] [address] [id number] 0 Phone: () - 03/18 CMP Calci um mg/dL 8.7 10.4 9.4 FINAL Mary Jane Interiano [place] [address] [id number] 0 Phone: () - 03/18 CMP Chlor marissa mmol/L 96.0 114.0 110 FINAL Mary Jane [place] [address] [id number] 0 Phone: () - 03/18 CMP CO2 [...] 96 hour stability window. FINAL Mary Jane [place] [address] [id number] 0 Phone: () - 03/18 CMP Creat inine mg/dL 0.5 1.2 1.66 High FINAL Mary Jane Ko [place] [address] [id number] 0 Phone: () - 03/18 CMP GFR estim ate ml/min /1.73m ^2 41.8 Low GFR is calculate d using the CKD-EPI equation. FINAL Mary Jane Ko [place] [address] [id number] 0 Phone: () - 03/18 CMP Gluco se mg/dL 73.0 126.0 119 FINAL Mary Jane Ko [place] [address] [id number] 0 Phone: () - 03/18 CMP Potas sium mmol/L 3.5 5.1 4.9 FINAL Mary Jane Ko [place] [address] [id number] 0 Phone: () - 03/18 CMP Sodiu m mmol/L 136.0 145.0 142 FINAL Mary Jane Ko [place] [address] [id number] 0 Phone: () - 03/18 CMP Bilir ubin, total mg/dL 0.3 1.2 0.6 FINAL Mary Jane Coronado a Oncology [facility], [address] [facility] [id number] 0 Phone: () - 03/18 CMP Total prote in g/dL 5.7 8.2 7.2 FINAL Mary Jane Interiano a Oncology [facility], [address] [facility] [address] [facility] [id number] 0 Phone: () - 03/18 CBC w/ auto diff WBC K/uL 3.0 8.9 3.7 FINAL Mary Jane Coronado ari [facility] - [place], [address] [place] [address] d [address] [facility] [id number] 0 Phone: () - 03/18 CBC w/ auto diff HGB g/dL 12.5 16.6 13.5 FINAL Mary Jane Coronado ari [facility] - [place], [address] [place] [address] d [address] [place] [facility] [id number] 0 Phone: () - 03/18 CBC w/ auto diff PLT K/uL 113.0 364.0 160 FINAL Mary Jane Coronado ari [facility] - [place], [address] [place] [address] [address] [place] [facility] [id number] 0 Phone: () - 03/18 CBC w/ auto diff Tatyana # (ANC) K/uL 1.6 6.6 2.4 FINAL Mary Jaen Interiano a [facility] - [place], [address] [place] [address] d [address] [place] [facility] [id number] 0 Phone: () - 03/18 CBC w/ auto diff Tatyana % % 43.0 74.0 62.8 FINAL Mary Jane Coronado ari [facility] - [place], [address] [place] [address] d [address] [place] [facility] [id number] 0 Phone: () - 03/18 CBC w/ auto diff IG % % 0.0 0.5 0.0 FINAL Mary Jane Coronado a [facility] - [place], [facility] [address] [place] [id number] 0 Phone: () - 03/18 CBC w/ auto diff IG # K/uL 0.0 0.03 0.00 FINAL Mary Jane chapman [facility] - [place], [address] [facility] [address] [place] [id number] 0 Phone: () - 03/18 CBC w/ auto diff LY % % 14.0 41.0 25.7 FINAL Mary Jane chapman [facility] - [place], [address] [facility] [address] [place] [id number] 0 Phone: () - 03/18 CBC w/ auto diff MO % % 6.0 15.0 9.1 FINAL Mary Jane chapman [facility] - [place], [address] [facility] [address] [place] [id number] 0 Phone: () - 03/18 CBC w/ auto diff EO % % 0.0 7.0 2.1 FINAL Mary Jane chapman [facility] - [place], [address] [facility] [address] [place] [id number] 0 Phone: () - 03/18 CBC w/ auto diff BA % % 0.0 2.0 0.3 FINAL Mary Jane chapman [facility] - [place], [address] [facility] [address] [place] [id number] 0 Phone: () - 03/18 CBC w/ auto diff LY # K/uL 0.4 3.6 1.0 FINAL Mary Jane chapman [facility] - [place], [address] [facility] [address] [place] [id number] 0 Phone: () - 03/18 CBC w/ auto diff MO # K/uL 0.2 1.3 0.3 FINAL Mary Jane chapman [facility] - [place], [address] [facility] [address] [place] [id number] 0 Phone: () - 03/18 CBC w/ auto diff EO # K/uL 0.0 0.6 0.1 FINAL Mary Jane Stefani [place] [facility] - [place], [address] [place] [id number] 0 Phone: () - 03/18 CBC w/ auto diff BA # K/uL 0.0 0.2 0.0 FINAL Mary Jane Interiano a [facility] - [place], [address] [place] [id number] 0 Phone: () - 03/18 CBC w/ auto diff NRBC % #/100W BC 0.0 0.2 0.0 FINAL Mary Jane Interiano a [facility] - [place], [address] [place] [id number] 0 Phone: () - 03/18 CBC w/ auto diff RBC M/uL 4.2 5.6 4.10 Low FINAL Mary Jane Interiano a [facility] - [place], [address] [place] [id number] 0 Phone: () - 03/18 CBC w/ auto diff HCT % 39.0 49.0 40.6 FINAL Mary Jane chapman [facility] - [place], [address] [place] [id number] 0 Phone: () - 03/18 CBC w/ auto diff MCV fL 80.0 104.0 99.0 FINAL Mary Jane Interiano a [facility] - [place], [address] [place] [id number] 0 Phone: () - 03/18 CBC w/ auto diff MCH pg 26.0 35.0 32.9 FINAL Mary Jane Interiano a [facility] - [place], [address] [place] [id number] 0 Phone: () - 03/18 CBC w/ auto diff MCHC g/dL 30.0 35.0 33.3 FINAL Mary Jane Interiano a [facility] - [place], [address] [place] [id number] 0 Phone: () - 10/26 /2023 CBC w/ auto diff MPV fL 9.5 13.4 10.3 FINAL Mary Jane Coronadoot a On[facility] - [place], [address] [place] [id number] 0 Phone: () - 03/18 CBC w/ auto diff RDW % 11.3 15.6 12.70 FINAL Mary Jane [facility] - [place], [address] [place] [phone] 0 Phone: () - 03/18 T4, free panel T4, free ng/dL 0.7 1.8 0.88 Test performed at [facility] on a [employer] Immunoass ay Analyzer that uses an immunoenz ymometric sandwich assay for analysis. Patient testing should not be performed using multiple methodolo soledad due to analytica l variation seen between test methodgénesis rowe. FINAL Mary Jane [facility] - [place], [address] [place] [phone] 0 Phone: () - 04/08 CBC w/ auto diff WBC K/uL 3.0 8.9 5.1 FINAL Mary Jane [facility] - [place], [address] [facility] [address] [place] [phone] 0 Phone: () - 04/08 CBC w/ auto diff HGB g/dL 12.5 16.6 13.7 FINAL Mary Jane [facility] - [place], [address] [place] [phone] 0 Phone: () - 04/08 CBC w/ auto diff PLT K/uL 113.0 364.0 167 FINAL Mary Jane [facility] - [place], [address] [place] [phone] 0 Phone: () - 04/08 CBC w/ auto diff Tatyana # (ANC) K/uL 1.6 6.6 3.1 FINAL Mary Jane [facility] - [place], [address] [place] [phone] 0 Phone: () - 04/08 CBC w/ auto diff Tatyana % % 43.0 74.0 60.1 FINAL Mary Jane [facility] - [place], [address] [place] [id number] 0 Phone: () - 04/08 CBC w/ auto diff IG % % 0.0 0.5 0.2 FINAL Mary Jane [facility] - [place], [address] [place] [id number] 0 Phone: () - 04/08 CBC w/ auto diff IG # K/uL 0.0 0.03 0.01 FINAL Mary Jane chapman [facility] - [place], [address] [place] [id number] 0 Phone: () - 04/08 CBC w/ auto diff LY % % 14.0 41.0 29.4 FINAL Mary Jane chapman [facility] - [place], [address] [place] [phone] 0 Phone: () - 04/08 CBC w/ auto diff MO % % 6.0 15.0 9.3 FINAL Mary Jane chapman [facility] - [place], [address] [place] [phone] 0 Phone: () - 04/08 CBC w/ auto diff EO % % 0.0 7.0 0.8 FINAL Mary Jane Interiano [facility] - [place], [address] [place] [id number] 0 Phone: () - 04/08 CBC w/ auto diff BA % % 0.0 2.0 0.2 FINAL Mary Jane [facility] - [place], [address] [place] [phone] 0 Phone: () - 04/08 CBC w/ auto diff LY # K/uL 0.4 3.6 1.5 FINAL Mary Jane Inter[facility] - [place], [address] [place] [id number] 0 Phone: () - 04/08 CBC w/ auto diff MO # K/uL 0.2 1.3 0.5 FINAL Mary Jane chapman [facility] - [place], [address] [place] [phone] 0 Phone: () - 04/08 CBC w/ auto diff EO # K/uL 0.0 0.6 0.0 FINAL Mary Jane chapman [facility] - [place], [address] [facility] [address] [place] [phone] 0 Phone: () - 04/08 CBC w/ auto diff BA # K/uL 0.0 0.2 0.0 FINAL Mary Jane chapman [facility] - [place], [address] [facility] [address] [place] [id number] 0 Phone: () - 04/08 CBC w/ auto diff NRBC % #/100W BC 0.0 0.2 0.0 FINAL Mary Jane chapman [facility] - [place], [address] [facility] [address] [place] [phone] 0 Phone: () - 04/08 CBC w/ auto diff RBC M/uL 4.2 5.6 4.14 Low FINAL Mary Jane chapman [facility] - [place], [address] [facility] [address] [place] [id number] 0 Phone: () - 04/08 CBC w/ auto diff HCT % 39.0 49.0 41.1 FINAL Mary Jane chapman [facility] - [place], [address] [facility] [address] [place] [phone] 0 Phone: () - 04/08 CBC w/ auto diff MCV fL 80.0 104.0 99.3 FINAL Mary Jane chapman [facility] - [place], [address] [place] [id number] 0 Phone: () - 04/08 CBC w/ auto diff MCH pg 26.0 35.0 33.1 FINAL Mary Jane [facility] [place] [facility] - [place], [address] [place] [id number] 0 Phone: () - 04/08 CBC w/ auto diff MCHC g/dL 30.0 35.0 33.3 FINAL Mary Jane [facility] - [place], [address] [place] [id number] 0 Phone: () - 04/08 CBC w/ auto diff MPV fL 9.5 13.4 10.7 FINAL Mary Jane [facility] - [place], [address] [place] [phone] 0 Phone: () - 04/08 CBC w/ auto diff RDW % 11.3 15.6 12.50 FINAL Mary Jane [facility] - [place], [address] [place] [phone] 0 Phone: () - 04/08 CMP SODIU M AHL mmol/L 136.0 145.0 136 FINAL Mary Jane Ko [facility] [address] [place] 04/08 CMP POTAS SIUM AHL mmol/L 3.5 5.1 5.7 High FINAL Mary Jane Ko [facility] [address] [place] 04/08 CMP CHLOR MARISSA AHL mmol/L 98.0 107.0 102 FINAL Mary Jane Ko [facility] [address] [place] 04/08 CMP CO2,T OTAL AHL mmol/L 22.0 29.0 25 FINAL Mary Jane Ko [facility] [address] [place] 04/08 CMP ANION GAP AHL 5.0 18.0 9 FINAL Mary Jane Ko [facility] [address] [place] 04/08 CMP GLUCO SE AHL mg/dL 70.0 99.0 124 High FINAL Mary Jane Ko [facility] [address] 04/08 CMP CALCI UM AHL mg/dL 8.8 10.2 9.5 FINAL Mary Jane Ko [facility] [address] [place] [address] 04/08 CMP BUN AHL mg/dL 8.0 23.0 29 High FINAL Mary Jane Ko [facility] [address] [place] [address] 04/08 CMP CREAT ININE AHL mg/dL 0.7 1.2 1.65 High FINAL Mary Jane Ko [facility] [address] [place] [address] 04/08 CMP BUN/C REAT RATIO AHL 10.0 20.0 18 FINAL Mary Jane [address] 04/08 CMP EGFR CHEM AHL mL/min /1.73m 2 42 Low As of 2, eGFR is calculate d by the CKD-EPI creatinin e equation without race adjustmen t. ?eGFR can be influence d by muscle mass, exercise, and diet. ?The reported eGFR is an estimatio n only and is only applicabl e if the renal function is stable. FINAL Mary Jane Ko [address] 04/08 CMP ALBUM IN AHL g/dL 4.0 4.9 4.2 FINAL Mary Jane Stefani [address] 04/08 CMP PROTE IN,TO LEE AHL g/dL 6.0 8.0 7.0 FINAL Mary Jane Ko [address] 04/08 CMP BILIR UBIN, TOTAL AHL mg/dL 0.0 1.2 0.4 FINAL Mary Jane Ko [address] 04/08 CMP ALK PHOSP HATAS E AHL IU/L 40.0 129.0 85 FINAL Mary Jane Ko [facility] [address] [place] [address] 04/08 CMP ALT (SGPT ) AHL IU/L 10.0 50.0 25 FINAL Mary Jane Ko [facility] [address] 04/08 CMP AST (SGOT ) AHL IU/L 10.0 50.0 33 FINAL Mary Jane Ko [facility] [address] 04/08 TSH w/ refle x to free T4 TSH uIU/ml 0.32 5.0 2.52 Test performed at [facility] on a [employer] 2000 Immunoass ay Analyzer that uses an immunoenz ymometric sandwich assay for analysis. Patient testing should not be performed using multiple methodolo gies due to analytica l variation seen between test methodolo gies. FINAL Mary Jane Interiano [facility], [address] [place] [phone] Phone: () - 04/14 iSTAT K+ panel Potas sium, iSTAT mmol/L 3.5 4.9 4.9 Reference range adjusted 0 with implement ation of I-Stat 8+ cartridge . [facility], [address] [facility] [address] [facility] [id number] 0 Phone: () - 04/29 TSH w/ refle x to free T4 TSH uIU/ml 0.32 5.0 0.62 Test performed at [facility] on a [employer] 2000 Immunoass ay Analyzer that uses an immunoenz ymometric sandwich assay for analysis. Patient testing should not be performed using multiple methodolo gies due to analytica l variation seen between test methodolo gies. FINAL Mary Jane chapman [facility], [address] [place] [address] [phone] 0 Phone: () - 04/29 CMP Album in g/dL 3.2 5.2 4.2 FINAL [facility] [address] [facility] [id number] 0 Phone: () - 04/29 CMP Alkal ine phosp hatas e U/L 46.0 116.0 67 FINAL Mary Jaen Interiano [facility], [address] [facility] [id number] 0 Phone: () - 04/29 CMP ALT/S GPT U/L 7.0 40.0 22 [facility]AL [facility] [address] [phone] 0 Phone: () - 04/29 CMP AST/S GOT U/L 13.0 40.0 22 [facility] [address] [id number] 0 Phone: () - 04/29 CMP BUN mg/dL 9.0 23.0 24.0 High FINAL [place] [address] [id number] 0 Phone: () - 04/29 CMP Calci um mg/dL 8.7 10.4 8.9 FINAL Mary Jane [place] [address] [id number] 0 Phone: () - 04/29 CMP Chlor marissa mmol/L 96.0 114.0 109 FINAL Mary Jane Ko [place] [address] [id number] 0 Phone: () - 04/29 CMP CO2 [...] hour stability window. FINAL Mary Jane Interiano [place] [address] [id number] 0 Phone: () - 04/29 CMP Creat inine mg/dL 0.5 1.2 1.55 High FINAL Mary Jane Ko [place] [address] [id number] 0 Phone: () - 04/29 CMP GFR estim ate ml/min /1.73m ^2 45.3 Low GFR is calculate d using the CKD-EPI equation. FINAL Mary Jane Ko [place] [address] [id number] 0 Phone: () - 04/29 CMP Gluco se mg/dL 73.0 126.0 113 [facility], [address] [facility] [id number] 0 Phone: () - 04/29 CMP Potas sium mmol/L 3.5 5.1 5.0 FINAL [facility], [address] [facility] [id number] 0 Phone: () - 04/29 CMP Sodiu m mmol/L 136.0 145.0 141 [facility]AL [facility], [address] [id number] 0 Phone: () - 04/29 CMP Bilir ubin, total mg/dL 0.3 1.2 0.4 FINAL [facility], [address] [id number] 0 Phone: () - 04/29 CMP Total prote in g/dL 5.7 8.2 6.9 FINAL [facility], [address] [facility] [address] [place] [address] [id number] 0 Phone: () - 04/29 CBC w/ auto diff WBC K/uL 3.0 8.9 5.5 FINAL Mary Jane Coronado a[facility] - [place], [address] [facility] [facility] [address] [facility] [id number] 0 Phone: () - 04/29 CBC w/ auto diff HGB g/dL 12.5 16.6 12.8 FINAL [facility] [place], [address] [facility] [id number] 0 Phone: () - 04/29 CBC w/ auto diff PLT K/uL 113.0 364.0 158 FINAL [facility] [place], [address] [facility] [address] [facility] [id number] 0 Phone: () - 04/29 CBC w/ auto diff Tatyana # (ANC) K/uL 1.6 6.6 3.4 FINAL Mary Jane chapman [facility] - [place], [address] [place] [id number] 0 Phone: () - 04/29 CBC w/ auto diff Tatyana % % 43.0 74.0 61.5 FINAL Mary Jane chapman [facility] - [place], [address] [place] [id number] 0 Phone: () - 04/29 CBC w/ auto diff IG % % 0.0 0.5 0.5 FINAL Mary Jane chapman [facility] - [place], [address] [place] [id number] 0 Phone: () - 04/29 CBC w/ auto diff IG # K/uL 0.0 0.03 0.03 FINAL Mary Jane chapman [facility] - [place], [address] [place] [id number] 0 Phone: () - 04/29 CBC w/ auto diff LY % % 14.0 41.0 23.1 FINAL Mary Jane chapman [facility] - [place], [address] [place] [id number] 0 Phone: () - 04/29 CBC w/ auto diff MO % % 6.0 15.0 9.4 FINAL Mary Jane chapman [facility] - [place], [address] [place] [id number] 0 Phone: () - 04/29 CBC w/ auto diff EO % % 0.0 7.0 5.1 FINAL Mary Jane chapman [facility] - [place], [address] [place] [phone] 0 Phone: () - 04/29 CBC w/ auto diff BA % % 0.0 2.0 0.4 FINAL Mary Jane Interiano [facility] - [place], [address] [place] [id number] 0 Phone: () - 04/29 CBC w/ auto diff LY # K/uL 0.4 3.6 1.3 FINAL Mary Jane chapman [facility] - [place], [address] [place] [id number] 0 Phone: () - 04/29 CBC w/ auto diff MO # K/uL 0.2 1.3 0.5 FINAL Mary Jane chapman [facility] - [place], [address] [place] [id number] 0 Phone: () - 04/29 CBC w/ auto diff EO # K/uL 0.0 0.6 0.3 FINAL Mary Jane chapman [facility] - [place], [address] [place] [id number] 0 Phone: () - 04/29 CBC w/ auto diff BA # K/uL 0.0 0.2 0.0 FINAL Mary Jane chapman [facility] - [place], [address] [address] [place] [id number] 0 Phone: () - 04/29 CBC w/ auto diff NRBC % #/100W BC 0.0 0.2 0.0 FINAL Mary Jane chapman [facility] - [place], [address] [place] [id number] 0 Phone: () - 04/29 CBC w/ auto diff RBC M/uL 4.2 5.6 3.80 Low FINAL Mary Jane chapman [facility] - [place], [address] [place] [id number] 0 Phone: () - 04/29 CBC w/ auto diff HCT % 39.0 49.0 37.7 Low FINAL Mary Jane chapman [facility] - [place], [address] [place] [id number] 0 Phone: () - 04/29 CBC w/ auto diff MCV fL 80.0 104.0 99.2 FINAL Mary [facility] [place] [facility] [place], [address] [place] [id number] 0 Phone: () - 04/29 CBC w/ auto diff MCH pg 26.0 35.0 33.7 FINAL Mary Jane [facility] - [place], [address] [place] [id number] 0 Phone: () - 04/29 CBC w/ auto diff MCHC g/dL 30.0 35.0 34.0 FINAL Mary Jane [facility] - [place], [address] [place] [id number] 0 Phone: () - 04/29 CBC w/ auto diff MPV fL 9.5 13.4 10.2 FINAL Mary Jane [facility] - [place], [address] [place] [id number] 0 Phone: () - 04/29 CBC w/ auto diff RDW % 11.3 15.6 12.50 FINAL Mary Jane [facility] - [place], [address] [place] [id number] 0 Phone: () - 05/20 CBC w/ auto diff WBC K/uL 3.0 8.9 5.4 FINAL Gio Coronadoot ari [facility] - [place], [address] [place] [id number] 0 Phone: () - 05/20 CBC w/ auto diff HGB g/dL 12.5 16.6 12.7 FINAL Gio Interiano [facility] - [place], [address] [place] [id number] 0 Phone: () - 05/20 CBC w/ auto diff PLT K/uL 113.0 364.0 150 FINAL Gio [facility] - [place], [address] [place] [id number] 0 Phone: () - 05/20 CBC w/ auto diff Tatyana # (ANC) K/uL 1.6 6.6 3.3 FINAL Gio [facility] - [place], [address] [place] [id number] 0 Phone: () - 05/20 CBC w/ auto diff Tatyana % % 43.0 74.0 61.2 FINAL Gio [facility] - [place], [address] [place] [id number] 0 Phone: () - 05/20 CBC w/ auto diff IG % % 0.0 0.5 0.2 FINAL Gio [facility] - [place], [address] [place] [id number] 0 Phone: () - 05/20 CBC w/ auto diff IG # K/uL 0.0 0.03 0.01 FINAL Gio [facility] - [place], [address] [place] [id number] 0 Phone: () - 05/20 CBC w/ auto diff LY % % 14.0 41.0 22.1 FINAL Gio [facility] - [place], [address] [place] [id number] 0 Phone: () - 05/20 CBC w/ auto diff MO % % 6.0 15.0 9.6 FINAL Gio [facility] - [place], [address] [place] [id number] 0 Phone: () - 05/20 CBC w/ auto diff EO % % 0.0 7.0 6.5 FINAL Gio [facility] - [place], [address] [place] [id number] 0 Phone: () - 05/20 CBC w/ auto diff BA % % 0.0 2.0 0.4 FINAL Gio [facility] - [place], [address] [place] [id number] 0 Phone: () - 05/20 CBC w/ auto diff LY # K/uL 0.4 3.6 1.2 FINAL Gio [facility] - [place], [address] [place] [id number] 0 Phone: () - 05/20 CBC w/ auto diff MO # K/uL 0.2 1.3 0.5 FINAL Gio [facility] - [place], [address] [place] [id number] 0 Phone: () - 05/20 CBC w/ auto diff EO # K/uL 0.0 0.6 0.4 FINAL Gio [facility] - [place], [address] [place] [id number] 0 Phone: () - 05/20 CBC w/ auto diff BA # K/uL 0.0 0.2 0.0 FINAL Gio [facility] - [place], [address] [place] [id number] 0 Phone: () - 05/20 CBC w/ auto diff NRBC % #/100W BC 0.0 0.2 0.0 FINAL Gio [facility] - [place], [address] [place] [id number] 0 Phone: () - 05/20 CBC w/ auto diff RBC M/uL 4.2 5.6 3.83 Low FINAL Goi [facility] - [place], [address] [place] [id number] 0 Phone: () - 05/20 CBC w/ auto diff HCT % 39.0 49.0 38.0 Low FINAL Gio [facility] - [place], [address] [place] [id number] 0 Phone: () - 05/20 CBC w/ auto diff MCV fL 80.0 104.0 99.2 FINAL Gio [facility] - [place], [address] [place] [id number] 0 Phone: () - 05/20 CBC w/ auto diff MCH pg 26.0 35.0 33.2 FINAL Gio chapman [facility] - [place], [address] [place] [id number] 0 Phone: () - 05/20 CBC w/ auto diff MCHC g/dL 30.0 35.0 33.4 FINAL Gio chapman [facility] - [place], [address] [place] [id number] 0 Phone: () - 05/20 CBC w/ auto diff MPV fL 9.5 13.4 10.4 FINAL Gio chapman [facility] - [place], [address] [place] [id number] 0 Phone: () - 05/20 CBC w/ auto diff RDW % 11.3 15.6 12.40 FINAL Gio chapman [facility] - [place], [address] [facility] [address] [facility] [place] [id number] 0 Phone: () - 05/20 TSH w/ refle x to free T4 TSH uIU/ml 0.32 5.0 0.56 Test performed at [facility] on a [employer] Immun[employer] ay Analyzer that uses an immunoenz ymometric sandwich assay for analysis. Patient testing should not be performed using multiple methodolo gies due to analytica l variation seen between test methodolo gies. FINAL Gio chapman [facility], [facility] [address] [place] [address] [id number] 0 Phone: () - 05/20 CMP Album in g/dL 3.2 5.2 4.1 FINAL Gio chapman [facility], [address] [place] [address] [id number] 0 Phone: () - 05/20 CMP Alkal ine phosp hatas e U/L 46.0 116.0 64 FINAL Gio chapman [facility], [address] [place] [address] [place] [id number] 0 Phone: () - 05/20 CMP ALT/S GPT U/L 7.0 40.0 24 FINAL Gio chapman [facility], [address] [facility] [id number] 0 Phone: () - 05/20 CMP AST/S GOT U/L 13.0 40.0 21 FINAL Gio chapman [facility] [address] [facility] [address] [facility] [id number] 0 Phone: () - 05/20 CMP BUN mg/dL 9.0 23.0 22.0 FINAL Gio chapman [place] [address] [address] [id number] 0 Phone: () - 05/20 CMP Calci um mg/dL 8.7 10.4 8.8 FINAL Gio chapman [place] [address] [id number] 0 Phone: () - 05/20 CMP Chlor marissa mmol/L 96.0 114.0 111 FINAL Gio chapman [place] [address] [id number] 0 Phone: () - 05/20 CMP CO2 [...] 96 hour stability window. FINAL Gio chapman [facility], [facility] [address] [id number] 0 Phone: () - 05/20 CMP Creat inine mg/dL 0.5 1.2 1.41 High FINAL Gio chapman [place] [address] [id number] 0 Phone: () - 05/20 CMP GFR estim ate ml/min /1.73m ^2 50.7 Low GFR is calculate d using the CKD-EPI equation. FINAL Gio chapman [facility], [facility] [address] [id number] 0 Phone: () - 05/20 CMP Gluco se mg/dL 73.0 126.0 148 High FINAL Gio chapman [facility], [address] [facility] [id number] 0 Phone: () - 05/20 CMP Potas sium mmol/L 3.5 5.1 4.4 FINAL Gio chapman [facility], [address] [facility] [id number] 0 Phone: () - 05/20 CMP Sodiu m mmol/L 136.0 145.0 142 FINAL Gio chapman [facility], [address] [facility] [id number] 0 Phone: () - 05/20 CMP Bilir ubin, total mg/dL 0.3 1.2 0.4 FINAL Gio chapman [facility], [address] [facility] [id number] 0 Phone: () - 05/20 CMP Total prote in g/dL 5.7 8.2 6.8 FINAL Gio chapman [facility], [address] [facility] [address] [facility] [id number] 0 Phone: () - 08/11 CBC w/ auto diff Tatyana # (ANC) K/uL 1.6 6.6 3.7 FINAL Mary Jane Ko [facility] [place] , [address] [place] [address] [address] [facility] [id number] 0 Phone: () - 08/11 CBC w/ auto diff Tatyana % % 43.0 74.0 64.[address] [facility] - [place] , [address] [place] [address] d [address] [facility] [id number] 0 Phone: () - 08/11 CBC w/ auto diff IG % % 0.0 0.5 0.[address] [facility] - [place] , [address] [place] [address] d [address] [facility] [id number] 0 Phone: () - 08/11 CBC w/ auto diff IG # K/uL 0.0 0.03 0.[address] [facility] - [place] , [address] [place] [address] d [address] [facility] [id number] 0 Phone: () - 08/11 CBC w/ auto diff LY % % 14.0 41.0 24.3 FINAL Mary Jane chapman [facility] - [place], [address] [facility] [address] [place] [id number] 0 Phone: () - 08/11 CBC w/ auto diff MO % % 6.0 15.0 8.1 FINAL Mary Jane chapman [facility] - [place], [address] [facility] [address] [place] [id number] 0 Phone: () - 08/11 CBC w/ auto diff EO % % 0.0 7.0 1.9 FINAL Mary Jane chapman [facility] - [place], [address] [facility] [address] [place] [id number] 0 Phone: () - 08/11 CBC w/ auto diff BA % % 0.0 2.0 0.4 FINAL Mary Jane chapman [facility] - [place], [address] [facility] [address] [place] [id number] 0 Phone: () - 08/11 CBC w/ auto diff LY # K/uL 0.4 3.6 1.4 FINAL Mary Jane chapman [facility] - [place], [address] [facility] [address] [place] [id number] 0 Phone: () - 08/11 CBC w/ auto diff MO # K/uL 0.2 1.3 0.5 FINAL Mary Jane chapman [facility] - [place], [address] [facility] [address] [place] [id number] 0 Phone: () - 08/11 CBC w/ auto diff EO # K/uL 0.0 0.6 0.1 FINAL Mary Jane chapman [facility] - [place], [address] [facility] [address] [place] [id number] 0 Phone: () - 08/11 CBC w/ auto diff BA # K/uL 0.0 0.2 0.0 FINAL [facility] [place] [facility] [place], [address] [place] [id number] 0 Phone: () - 08/11 CBC w/ auto diff NRBC % #/100W BC 0.0 0.2 0.0 FINAL Mary Jane Coronadoot a [facility] - [place], [address] [place] [place] [id number] 0 Phone: () - 08/11 CBC w/ auto diff RBC M/uL 4.2 5.6 4.14 Low FINAL Mary Jane [facility] [place], [address] [place] [id number] 0 Phone: () - 08/11 CBC w/ auto diff HCT % 39.0 49.0 41.0 FINAL Mary Jane [facility] [place], [address] [place] [id number] 0 Phone: () - 08/11 CBC w/ auto diff MCV fL 80.0 104.0 99.0 FINAL Mary Jane [facility] [place], [address] [place] [id number] 0 Phone: () - 08/11 CBC w/ auto diff MCH pg 26.0 35.0 32.6 FINAL Mary Jane [facility] [place], [address] [place] [id number] 0 Phone: () - 08/11 CBC w/ auto diff MCHC g/dL 30.0 35.0 32.9 FINAL Mary [facility] [place], [address] [place] [id number] 0 Phone: () - 08/11 CBC w/ auto diff MPV fL 9.5 13.4 10.4 FINAL Mary [facility] [place], [address] [place] [id number] 0 Phone: () - 08/11 CBC w/ auto diff RDW % 11.3 15.6 12.80 FINAL Mary Jane [facility]sen [facility] [place], [address] [place] [id number] 0 Phone: () - 08/11 CBC w/ auto diff WBC K/uL 3.0 8.9 5.7 FINAL Mary Jane Ko [facility] [place], [address] [place] [id number] 0 Phone: () - 08/11 CBC w/ auto diff HGB g/dL 12.5 16.6 13.5 FINAL Mary Jane Ko [facility] [place], [address] [place] [id number] 0 Phone: () - 08/11 CBC w/ auto diff PLT K/uL 113.0 364.0 146 FINAL Mary Jane Stefani [facility] [place], [address] [place] [id number] 0 Phone: () - 08/11 TSH w/ refle x to free T4 TSHR- v mIU/ml 0.47 4.68 2.08 FINAL Mary Jane Ko * [facility], [address] [facility] [id number] 0 08/11 CMP Album in g/dL 3.5 5.0 4.1 FINAL Mary Jane Ko * [facility], [address] [facility] [id number] 0 08/11 CMP Alkal ine phosp hatas e U/L 36.0 125.0 71 FINAL Mary Jane Ko * [facility], [address] [facility] [id number] 0 08/11 CMP ALT/S GPT U/L 0.0 49.0 25 FINAL Mary Jane Ko * [facility] [place], [address] [facility] [id number] 0 08/11 CMP AST/S GOT U/L 17.0 59.0 35 FINAL [facility], [address] [id number] 0 08/11 CMP BUN mg/dL 9.0 20.0 19.0 FINAL [facility], [address] [id number] 0 08/11 CMP Calci um mg/dL 8.4 10.2 8.7 FINAL Mary Jane Elizabeth [facility], [facility] [address] [id number] 0 08/11 CMP Chlor marissa mmol/L 96.0 107.0 106 FINAL [facility], [address] [id number] 0 08/11 CMP CO2 mmol/L 22.0 30.0 [...] 96 hour stability window. FINAL [facility], [address] [id number] 0 08/11 CMP Creat inine mg/dL 0.66 1.25 1.50 High FINAL [facility] [address] [id number] 0 08/11 CMP GFR estim ate ml/min /1.73m ^2 47.0 Low GFR is calculate d using the CKD-EPI equation. FINAL Mary Jane Ko * [facility], [facility] [address] [place] [address] [id number] 0 08/11 CMP Gluco se mg/dL 74.0 100.0 147 High FINAL Mary Jane Ko * [facility], [facility]0 [address] [id number] 0 08/11 CMP Potas sium mmol/L 3.5 5.1 4.4 FINAL Mary Jane Ko * [facility], [address] [place] [address] [id number] 0 08/11 CMP Sodiu m mmol/L 137.0 145.0 139 FINAL Mary Jane Ko * [facility], [facility]0 [address] [id number] 0 08/11 CMP Bilir ubin, total mg/dL 0.2 1.3 0.5 FINAL Mary Jane Elizabeth [facility], [facility] [address] [id number] 0 08/11 CMP Total prote in g/dL 6.3 8.2 7.4 FINAL Mary Jane Elizabeth [facility], [facility]0 [address] [id number] 0 08/11 D-Dim er panel D-DIM ER, [...] l informati on, please refer to:http:/ /educatio [employer]/faq/ [email or web address](Th is link is being provided for informati onal/educ ational purposes only) FINAL Gio Lopez * [facility] [address] [place] [id number] 4 09/01 CBC w/ auto diff WBC K/uL 3.0 8.9 5.7 FINAL Gio [facility] [place], [address] [place] [id number] 0 Phone: () - 09/01 CBC w/ auto diff HGB g/dL 12.5 16.6 12.8 FINAL [facility] [place], [address] [place] [id number] 0 Phone: () - 09/01 CBC w/ auto diff PLT K/uL 113.0 364.0 148 FINAL [facility] [place], [address] [place] [id number] 0 Phone: () - 09/01 CBC w/ auto diff Tatyana # (ANC) K/uL 1.6 6.6 3.5 FINAL [facility] [place], [address] [place] [id number] 0 Phone: () - 09/01 CBC w/ auto diff Tatyana % % 43.0 74.0 60.7 FINAL [facility] [place], [address] [place] [id number] 0 Phone: () - 09/01 CBC w/ auto diff IG % % 0.0 0.5 0.4 FINAL Gio Lopez [facility] [place], [address] [place] [id number] 0 Phone: () - 09/01 CBC w/ auto diff IG # K/uL 0.0 0.03 0.02 FINAL [facility] [place], [address] [place] [id number] 0 Phone: () - 09/01 CBC w/ auto diff LY % % 14.0 41.0 24.9 FINAL [facility]io [facility] [place], [address] [place] [id number] 0 Phone: () - 09/01 CBC w/ auto diff MO % % 6.0 15.0 9.5 FINAL [facility] [place], [address] [place] [id number] 0 Phone: () - 09/01 CBC w/ auto diff EO % % 0.0 7.0 4.1 FINAL [facility]io [facility] [place], [address] [place] [id number] 0 Phone: () - 09/01 CBC w/ auto diff BA % % 0.0 2.0 0.4 FINAL [facility] [place], [address] [place] [id number] 0 Phone: () - 09/01 CBC w/ auto diff LY # K/uL 0.4 3.6 1.4 FINAL [facility] [place], [address] [place] [id number] 0 Phone: () - 09/01 CBC w/ auto diff MO # K/uL 0.2 1.3 0.5 FINAL [facility] [place], [address] [place] [id number] 0 Phone: () - 09/01 CBC w/ auto diff EO # K/uL 0.0 0.6 0.2 FINAL [facility]io [facility] [place], [address] [place] [id number] 0 Phone: () - 09/01 CBC w/ auto diff BA # K/uL 0.0 0.2 0.0 FINAL [facility] [place], [address] [place] [id number] 0 Phone: () - 09/01 CBC w/ auto diff NRBC % #/100W BC 0.0 0.2 0.0 FINAL [facility]io [facility] [place], [address] [place] [id number] 0 Phone: () - 09/01 CBC w/ auto diff RBC M/uL 4.2 5.6 3.93 Low FINAL [facility]io [facility] [place], [address] [place] [id number] 0 Phone: () - 09/01 CBC w/ auto diff HCT % 39.0 49.0 38.5 Low FINAL Gio [facility] [place], [address] [place] [id number] 0 Phone: () - 09/01 CBC w/ auto diff MCV fL 80.0 104.0 98.0 FINAL [facility] [place], [address] [place] [id number] 0 Phone: () - 09/01 CBC w/ auto diff MCH pg 26.0 35.0 32.6 FINAL [facility]io [facility] [place], [address] [place] [id number] 0 Phone: () - 09/01 CBC w/ auto diff MCHC g/dL 30.0 35.0 33.2 FINAL [facility] [place], [address] [place] [id number] 0 Phone: () - 09/01 CBC w/ auto diff MPV fL 9.5 13.4 10.7 FINAL Gio Lopez [facility] [place], [address] [place] [id number] 0 Phone: () - 09/01 CBC w/ auto diff RDW % 11.3 15.6 13.10 FINAL Gio Lopez [facility] [place], [address] [place] [id number] 0 Phone: () - 09/01 CMP Gluco se mg/dL 74.0 100.0 161 High FINAL Gio Lopez * [facility] [place], [address] [facility] [id number] 0 09/01 CMP Potas sium mmol/L 3.5 5.1 4.7 FINAL Gio Lopez * [facility], [address] [facility] [id number] 0 09/01 CMP Sodiu m mmol/L 137.0 145.0 138 FINAL Gio Lopez * [facility] [place], [address] [facility] [id number] 0 09/01 CMP Bilir ubin, total mg/dL 0.2 1.3 0.5 FINAL Gio Lopez * [facility], [address] [facility] [id number] 0 09/01 CMP Total prote in g/dL 6.3 8.2 6.9 FINAL Gio Lopez * [facility] [place], [address] [facility] [id number] 0 09/01 CMP Album in g/dL 3.5 5.0 4.0 FINAL Gio Lopez * [facility], [address] [facility] [id number] 0 09/01 CMP Alkal ine phosp hatas e U/L 36.0 125.0 75 FINAL Gio Lopez * [facility], [address] [id number] 0 09/01 CMP ALT/S GPT U/L 0.0 49.0 32 FINAL Gio Lopez * [facility], [address] [id number] 0 09/01 CMP AST/S GOT U/L 17.0 59.0 41 FINAL Gio Lopez * [facility], [address] [id number] 0 09/01 CMP BUN mg/dL 9.0 20.0 25.0 High FINAL Gio Elizabeth [facility], [address] [id number] 0 09/01 CMP Calci um mg/dL 8.4 10.2 8.5 FINAL Gio Elizabeth [facility], [address] [id number] 0 09/01 CMP Chlor marissa mmol/L 96.0 107.0 106 FINAL Gio Lopez * [facility], [address] [id number] 0 09/01 CMP CO2 mmol/L 22.0 30.0 [...] hour stability window. FINAL Gio Lopez * [facility], [address] [id number] 0 09/01 CMP Creat inine mg/dL 0.66 1.25 1.50 High FINAL Gio [facility], [address] [facility] [id number] 0 09/01 CMP GFR estim ate ml/min /1.73m ^2 47.0 Low GFR is calculate d using the CKD-EPI equation. FINAL Gio [facility], [address] [facility] [id number] 0 09/01 TSH w/ refle x to free T4 TSHR- v mIU/ml 0.47 4.68 2.12 FINAL Gio [facility], [address] [facility] [id number] 09/22 CBC w/ auto diff MCV fL 80.0 104.0 97.8 FINAL Mary Jane [facility] [place], [address] [place] [id number] 0 Phone: () - 09/22 CBC w/ auto diff MCH pg 26.0 35.0 32.3 FINAL Mary Jane [facility] [place], [address] [place] [id number] 0 Phone: () - 09/22 CBC w/ auto diff MPV fL 9.5 13.4 10.3 FINAL Mary Jane [facility] [place], [address] [place] [id number] 0 Phone: () - 09/22 CBC w/ auto diff RDW % 11.3 15.6 12.70 FINAL Mary Jane [facility] [place], [address] [place] [id number] 0 Phone: () - 09/22 CBC w/ auto diff WBC K/uL 3.0 8.9 5.4 FINAL Mary Jane [facility] [place], [address] [place] [id number] 0 Phone: () - 09/22 CBC w/ auto diff HGB g/dL 12.5 16.6 13.0 FINAL Mary Jane [facility] [place], [address] [place] [id number] 0 Phone: () - 09/22 CBC w/ auto diff PLT K/uL 113.0 364.0 159 FINAL Mary Jane [facility] [place], [address] [place] [id number] 0 Phone: () - 09/22 CBC w/ auto diff Tatyana # (ANC) K/uL 1.6 6.6 3.3 FINAL Mary Jane [facility] [place], [address] [place] [id number] 0 Phone: () - 09/22 CBC w/ auto diff Tatyana % % 43.0 74.0 60.0 FINAL Mary Jane [facility] [place], [address] [place] [id number] 0 Phone: () - 09/22 CBC w/ auto diff IG % % 0.0 0.5 0.2 FINAL Mary Jane [facility] [place], [address] [place] [id number] 0 Phone: () - 09/22 CBC w/ auto diff IG # K/uL 0.0 0.03 0.01 FINAL Mary Jane [facility] [place], [address] [place] [id number] 0 Phone: () - 09/22 CBC w/ auto diff LY % % 14.0 41.0 28.4 FINAL Mary Jane [facility] [place], [address] [place] [id number] 0 Phone: () - 09/22 CBC w/ auto diff MO % % 6.0 15.0 9.4 FINAL Mary Jane [facility] [place], [address] [facility] [facility] [address] [place] [id number] 0 Phone: () - 09/22 CBC w/ auto diff EO % % 0.0 7.0 1.8 FINAL Mary Jane [facility] [place], [address] [facility] [address] [place] [id number] 0 Phone: () - 09/22 CBC w/ auto diff BA % % 0.0 2.0 0.2 FINAL Mary Jane [facility] [place], [address] [facility] [address] [place] [id number] 0 Phone: () - 09/22 CBC w/ auto diff LY # K/uL 0.4 3.6 1.5 FINAL Mary Jane [facility] [place], [address] [facility] [address] [place] [id number] 0 Phone: () - 09/22 CBC w/ auto diff MO # K/uL 0.2 1.3 0.5 FINAL Mary Jane [facility] [place], [address] [facility] [address] [place] [id number] 0 Phone: () - 09/22 CBC w/ auto diff EO # K/uL 0.0 0.6 0.1 FINAL Mary Jane [facility] - [place], [address] [facility] [address] [place] [id number] 0 Phone: () - 09/22 CBC w/ auto diff BA # K/uL 0.0 0.2 0.0 FINAL Mary Jane [facility] [place], [address] [facility] [facility] [address] [place] [id number] 0 Phone: () - 09/22 CBC w/ auto diff NRBC % #/100W BC 0.0 0.2 0.0 FINAL Mary Jane [facility] [place], [address] [place] [id number] 0 Phone: () - 09/22 CBC w/ auto diff RBC M/uL 4.2 5.6 4.03 Low FINAL Mary Jane Ko [facility] [place], [address] [place] [id number] 0 Phone: () - 09/22 CBC w/ auto diff HCT % 39.0 49.0 39.4 FINAL Mary Jane [facility] [place], [address] [place] [id number] 0 Phone: () - 09/22 CBC w/ auto diff MCHC g/dL 30.0 35.0 33.0 FINAL Mary Jane [facility] [place], [address] [place] [id number] 0 Phone: () - 09/22 CMP Album in g/dL 3.5 5.0 4.2 FINAL Mary Jane Ko * [facility] [place], [address] [facility] [id number] 0 09/22 CMP Alkal ine phosp hatas e U/L 36.0 125.0 70 FINAL Mary Janejass Ko * [facility] [place], [address] [facility] [id number] 0 09/22 CMP ALT/S GPT U/L 0.0 49.0 24 FINAL Mary Janejass Ko * [facility] [place], [address] [facility] [place] [id number] 0 09/22 CMP AST/S GOT U/L 17.0 59.0 39 FINAL Mary Jane Ko * [facility] [place], [address] [facility] [id number] 0 09/22 CMP BUN mg/dL 9.0 20.0 27.0 High FINAL Mary Jane chapman [facility], [facility] [address] [id number] 0 09/22 CMP Calci um mg/dL 8.4 10.2 8.9 FINAL Mary Jane Coronado ari [facility], [facility] [address] [id number] 0 09/22 CMP Chlor marissa mmol/L 96.0 107.0 103 FINAL Mary Jane [place] [id number] [facility] [address] [id number] 0 09/22 CMP CO2 mmol/L 22.0 30.0 [...] hour stability window. FINAL Mary Jane chapman [facility], [address] [place] [address] [address] [id number] 0 09/22 CMP Creat inine mg/dL 0.66 1.25 1.60 High FINAL Mary Jane Interiano [facility], [address] [place] [address] [address] [id number] 0 09/22 CMP GFR estim ate ml/min /1.73m ^2 43.5 Low GFR is calculate d using the CKD-EPI equation. FINAL Mary Jane Coronado ari [facility], [address] [place] [address] [address] [id number] 0 09/22 CMP Gluco se mg/dL 74.0 100.0 138 High FINAL Mary Jane Coronado ari [facility], [address] [facility] [id number] 0 09/22 CMP Potas sium mmol/L 3.5 5.1 4.8 FINAL Mary Jane Ko * [facility], [address] [facility] [id number] 0 09/22 CMP Sodiu m mmol/L 137.0 145.0 137 FINAL Mary Jane Ko * [facility], [address] [facility] [id number] 0 09/22 CMP Bilir ubin, total mg/dL 0.2 1.3 0.5 FINAL Mary Jane Ko * [facility], [address] [id number] 0 09/22 CMP Total prote in g/dL 6.3 8.2 7.2 FINAL Mary Jane Stefani * [facility], [address] [id number] 0 09/22 TSH w/ refle x to free T4 TSHR- v mIU/ml 0.47 4.68 1.01 FINAL Mary Jane Ko * [facility], [address] [facility] [id number] 0 10/13 TSH w/ refle x to free T4 TSHR- v mIU/ml 0.47 4.68 1.27 FINAL Gio Lopez * [facility], [address] [id number] 0 10/13 CMP Album in g/dL 3.5 5.0 4.1 FINAL Gio Lopez * [facility], [address] [facility] [id number] 0 10/13 CMP Alkal ine phosp hatas e U/L 36.0 125.0 69 FINAL [facility], [address] [facility] [address] [id number] 0 10/13 CMP ALT/S GPT U/L 0.0 49.0 22 FINAL Gio Elizabeth [facility], [address] [facility] [address] [id number] 0 10/13 CMP AST/S GOT U/L 17.0 59.0 32 FINAL Gio Elizabeth [facility], [facility] [address] [id number] 0 10/13 CMP BUN mg/dL 9.0 20.0 31.0 High FINAL [facility], [address] [id number] 0 10/13 CMP Calci um mg/dL 8.4 10.2 8.0 Low FINAL Gio Elizabeth [facility], [facility] [address] [id number] 0 10/13 CMP Chlor marissa mmol/L 96.0 107.0 110 High FINAL [facility], [address] [id number] 0 10/13 CMP CO2 mmol/L 22.0 30.0 [...] hour stability window. FINAL Gio Lopez * [facility], [address] [facility] [id number] 0 10/13 CMP Creat inine mg/dL 0.66 1.25 1.60 High FINAL Gio Lopez * [facility], [address] [facility] [id number] 0 10/13 CMP GFR estim ate ml/min /1.73m ^2 43.5 Low GFR is calculate d using the CKD-EPI equation. FINAL Gio Lopez * [facility], [address] [facility] [id number] 0 10/13 CMP Gluco se mg/dL 74.0 100.0 137 High FINAL Gio Lopez * [facility], [address] [id number] 0 10/13 CMP Sodiu m mmol/L 137.0 145.0 136 Low FINAL Gio John * [facility], [address] [facility] [id number] 0 10/13 CMP Potas sium mmol/L 3.5 5.1 5.0 FINAL Gio John * [facility], [address] [facility] [id number] 0 10/13 CMP Bilir ubin, total mg/dL 0.2 1.3 0.5 FINAL Gio John * [facility], [address] [facility] [id number] 0 10/13 CMP Total prote in g/dL 6.3 8.2 7.0 FINAL Gio John * [facility], [address] [facility] [id number] 0 10/13 CBC w/ auto diff WBC K/uL 3.0 8.9 5.4 FINAL Gio [facility] [place], [address] [place] [id number] 0 Phone: () - 10/13 CBC w/ auto diff HGB g/dL 12.5 16.6 12.9 FINAL Gio [facility] [place], [address] [place] [id number] 0 Phone: () - 10/13 CBC w/ auto diff PLT K/uL 113.0 364.0 161 FINAL Gio [facility] [place], [address] [place] [id number] 0 Phone: () - 10/13 CBC w/ auto diff Tatyana # (ANC) K/uL 1.6 6.6 3.3 FINAL Gio [facility] [place], [address] [place] [id number] 0 Phone: () - 10/13 CBC w/ auto diff Tatyana % % 43.0 74.0 61.8 FINAL Gio Coronadoot ari [facility] - [place], [address] [place] [id number] 0 Phone: () - 10/13 CBC w/ auto diff IG % % 0.0 0.5 0.2 FINAL Gio [facility]oot [facility] - [place], [address] [place] [id number] 0 Phone: () - 10/13 CBC w/ auto diff IG # K/uL 0.0 0.03 0.01 FINAL Gio [facility] [place], [address] [place] [id number] 0 Phone: () - 10/13 CBC w/ auto diff LY % % 14.0 41.0 28.0 FINAL Gio [facility] [place], [address] [place] [id number] 0 Phone: () - 10/13 CBC w/ auto diff MO % % 6.0 15.0 7.4 FINAL Gio [facility] - [place], [address] [place] [id number] 0 Phone: () - 10/13 CBC w/ auto diff EO % % 0.0 7.0 2.4 FINAL Gio [facility] [place], [address] [place] [id number] 0 Phone: () - 10/13 CBC w/ auto diff BA % % 0.0 2.0 0.2 FINAL Gio [facility] [place], [address] [place] [id number] 0 Phone: () - 10/13 CBC w/ auto diff LY # K/uL 0.4 3.6 1.5 FINAL [facility] - [place], [address] [place] [id number] 0 Phone: () - 10/13 CBC w/ auto diff MO # K/uL 0.2 1.3 0.4 FINAL [facility]io [facility] - [place], [address] [place] [id number] 0 Phone: () - 10/13 CBC w/ auto diff EO # K/uL 0.0 0.6 0.1 FINAL [facility] - [place], [address] [place] [id number] 0 Phone: () - 10/13 CBC w/ auto diff BA # K/uL 0.0 0.2 0.0 FINAL [facility] - [place], [address] [place] [id number] 0 Phone: () - 10/13 CBC w/ auto diff NRBC % #/100W BC 0.0 0.2 0.0 FINAL [facility] - [place], [address] [place] [id number] 0 Phone: () - 10/13 CBC w/ auto diff RBC M/uL 4.2 5.6 3.93 Low FINAL [facility] - [place], [address] [place] [id number] 0 Phone: () - 10/13 CBC w/ auto diff HCT % 39.0 49.0 38.2 Low FINAL [facility] - [place], [address] [place] [id number] 0 Phone: () - 10/13 CBC w/ auto diff MCV fL 80.0 104.0 97.2 FINAL [facility] - [place], [address] [place] [id number] 0 Phone: () - 10/13 CBC w/ auto diff MCH pg 26.0 35.0 32.8 FINAL [facility] - [place], [address] [place] [id number] 0 Phone: () - 10/13 CBC w/ auto diff MCHC g/dL 30.0 35.0 33.8 FINAL [facility] - [place], [address] [place] [id number] 0 Phone: () - 10/13 CBC w/ auto diff MPV fL 9.5 13.4 10.3 FINAL [facility] - [place], [address] [place] [id number] 0 Phone: () - 10/13 CBC w/ auto diff RDW % 11.3 15.6 12.80 FINAL [facility] - [place], [address] [place] [id number] 0 Phone: () - 11/03 TSH w/ refle x to free T4 TSHR- v mIU/ml 0.47 4.68 0.58 FINAL Gio Lopez * [place] [facility], [address] [facility] [place] [id number] 0 11/03 CMP Album in g/dL 3.5 5.0 3.9 FINAL Gio Lopez * [facility], [address] [facility] [address] [id number] 0 11/03 CMP Alkal ine phosp hatas e U/L 36.0 125.0 68 FINAL Gio Lopez * [facility], [address] [id number] 0 11/03 CMP ALT/S GPT U/L 0.0 49.0 26 FINAL Gio Lopez * [facility], [address] [id number] 0 11/03 CMP AST/S GOT U/L 17.0 59.0 39 FINAL Gio Lopez * [facility], [address] [id number] 0 11/03 CMP BUN mg/dL 9.0 20.0 25.0 High FINAL Gio Lopez * [facility], [facility] [address] [facility] [address] [id number] 0 11/03 CMP Calci um mg/dL 8.4 10.2 8.5 FINAL Gio Lopez * [facility], [address] [id number] 0 11/03 CMP Chlor marissa mmol/L 96.0 107.0 108 High FINAL Gio Lopez * [facility], [address] [id number] 0 11/03 CMP CO2 mmol/L 22.0 30.0 [...] the 96 hour stability window. [facility] [address] [facility] [id number] 0 11/03 CMP Creat inine mg/dL 0.66 1.25 1.60 High [facility], [address] [id number] 0 11/03 CMP GFR estim ate ml/min /1.73m ^2 43.5 Low GFR is calculate d using the CKD-EPI equation. [facility], [address] [id number] 0 11/03 CMP Gluco se mg/dL 74.0 100.0 132 High [facility], [address] [id number] 0 11/03 CMP Potas sium mmol/L 3.5 5.1 4.5 [facility], [address] [id number] 0 11/03 CMP Sodiu m mmol/L 137.0 145.0 136 Low FINAL Gio Coronadoot a [facility], [address] [id number] 0 11/03 CMP Bilir ubin, total mg/dL 0.2 1.3 0.5 FINAL Gio Coron[facility]oot [facility], [address] [id number] 0 11/03 CMP Total prote in g/dL 6.3 8.2 6.7 FINAL Gio Lopez * [place] [facility] [place], [address] [facility] [place] [id number] 0 11/03 CBC w/ auto diff WBC K/uL 3.0 8.9 4.8 FINAL [facility] - [place], [address] [place] [id number] 0 Phone: () - 11/03 CBC w/ auto diff HGB g/dL 12.5 16.6 12.3 Low FINAL [facility] - [place], [address] [place] [id number] 0 Phone: () - 11/03 CBC w/ auto diff PLT K/uL 113.0 364.0 156 FINAL [facility] [place], [address] [place] [id number] 0 Phone: () - 11/03 CBC w/ auto diff Tatyana # (ANC) K/uL 1.6 6.6 2.7 FINAL [facility] - [place], [address] [place] [id number] 0 Phone: () - 11/03 CBC w/ auto diff Tatyana % % 43.0 74.0 56.6 FINAL [facility] - [place], [address] [place] [id number] 0 Phone: () - 11/03 CBC w/ auto diff IG % % 0.0 0.5 0.4 FINAL [facility] - [place], [address] [place] [id number] 0 Phone: () - 11/03 CBC w/ auto diff IG # K/uL 0.0 0.03 0.02 FINAL [facility] - [place], [address] [place] [id number] 0 Phone: () - 11/03 CBC w/ auto diff LY % % 14.0 41.0 32.4 FINAL [facility] [place], [address] [place] [id number] 0 Phone: () - 11/03 CBC w/ auto diff MO % % 6.0 15.0 8.7 FINAL [facility] - [place], [address] [place] [id number] 0 Phone: () - 11/03 CBC w/ auto diff EO % % 0.0 7.0 1.7 FINAL [facility] [place], [address] [place] [id number] 0 Phone: () - 11/03 CBC w/ auto diff BA % % 0.0 2.0 0.2 FINAL [facility] [place], [address] [place] [id number] 0 Phone: () - 11/03 CBC w/ auto diff LY # K/uL 0.4 3.6 1.6 FINAL [facility] - [place], [address] [place] [id number] 0 Phone: () - 11/03 CBC w/ auto diff MO # K/uL 0.2 1.3 0.4 FINAL [facility] - [place], [address] [place] [id number] 0 Phone: () - 11/03 CBC w/ auto diff EO # K/uL 0.0 0.6 0.1 FINAL [facility] - [place], [address] [place] [id number] 0 Phone: () - 11/03 CBC w/ auto diff BA # K/uL 0.0 0.2 0.0 FINAL [facility] - [place], [address] [place] [id number] 0 Phone: () - 11/03 CBC w/ auto diff NRBC % #/100W BC 0.0 0.2 0.0 FINAL [facility] - [place], [address] [place] [id number] 0 Phone: () - 11/03 CBC w/ auto diff RBC M/uL 4.2 5.6 3.78 Low FINAL [facility] - [place], [address] [place] [id number] 0 Phone: () - 11/03 CBC w/ auto diff HCT % 39.0 49.0 36.8 Low FINAL [facility] - [place], [address] [place] [id number] 0 Phone: () - 11/03 CBC w/ auto diff MCV fL 80.0 104.0 97.4 FINAL [facility] - [place], [address] [place] [id number] 0 Phone: () - 11/03 CBC w/ auto diff MCH pg 26.0 35.0 32.5 FINAL [facility] - [place], [address] [place] [id number] 0 Phone: () - 11/03 CBC w/ auto diff MCHC g/dL 30.0 35.0 33.4 FINAL [facility] - [place], [address] [place] [id number] 0 Phone: () - 11/03 CBC w/ auto diff MPV fL 9.5 13.4 10.1 FINAL [facility] - [place], [address] [place] [id number] 0 Phone: () - 11/03 CBC w/ auto diff RDW % 11.3 15.6 12.60 FINAL [facility] - [place], [address] [place] [id number] 0 Phone: () - 11/25 TSH w/ refle x to free T4 TSHR- v mIU/ml 0.47 4.68 1.53 FINAL Gio Lopez * [facility] [place], [address] [facility] [place] [id number] 0 11/25 CBC w/ auto diff WBC K/uL 3.0 8.9 5.1 FINAL [facility] - [place], [address] [place] [id number] 0 Phone: () - 11/25 CBC w/ auto diff HGB g/dL 12.5 16.6 13.6 FINAL [facility] - [place], [address] [place] [id number] 0 Phone: () - 11/25 CBC w/ auto diff PLT K/uL 113.0 364.0 153 FINAL [facility] - [place], [address] [place] [id number] 0 Phone: () - 11/25 CBC w/ auto diff Tatyana # (ANC) K/uL 1.6 6.6 2.9 FINAL [facility] - [place], [address] [place] [id number] 0 Phone: () - 11/25 CBC w/ auto diff Tatyana % % 43.0 74.0 55.7 FINAL [facility] - [place], [address] [place] [id number] 0 Phone: () - 11/25 CBC w/ auto diff IG % % 0.0 0.5 0.4 FINAL [facility] - [place], [address] [place] [id number] 0 Phone: () - 11/25 CBC w/ auto diff IG # K/uL 0.0 0.03 0.02 FINAL [facility] - [place], [address] [place] [id number] 0 Phone: () - 11/25 CBC w/ auto diff LY % % 14.0 41.0 32.5 FINAL [facility] - [place], [address] [place] [id number] 0 Phone: () - 11/25 CBC w/ auto diff MO % % 6.0 15.0 9.3 FINAL [facility] - [place], [address] [place] [id number] 0 Phone: () - 11/25 CBC w/ auto diff EO % % 0.0 7.0 1.9 FINAL [facility] - [place], [address] [place] [id number] 0 Phone: () - 11/25 CBC w/ auto diff BA % % 0.0 2.0 0.2 FINAL [facility] [place], [address] [place] [id number] 0 Phone: () - 11/25 CBC w/ auto diff LY # K/uL 0.4 3.6 1.7 FINAL [facility] [place], [address] [place] [id number] 0 Phone: () - 11/25 CBC w/ auto diff MO # K/uL 0.2 1.3 0.5 FINAL [facility] - [place], [address] [place] [id number] 0 Phone: () - 11/25 CBC w/ auto diff EO # K/uL 0.0 0.6 0.1 FINAL [facility] - [place], [address] [place] [id number] 0 Phone: () - 11/25 CBC w/ auto diff BA # K/uL 0.0 0.2 0.0 FINAL [facility] - [place], [address] [place] [id number] 0 Phone: () - 11/25 CBC w/ auto diff NRBC % #/100W BC 0.0 0.2 0.0 FINAL [facility]io [facility] - [place], [address] [place] [id number] 0 Phone: () - 11/25 CBC w/ auto diff RBC M/uL 4.2 5.6 4.16 Low FINAL [facility] - [place], [address] [place] [id number] 0 Phone: () - 11/25 CBC w/ auto diff HCT % 39.0 49.0 41.5 FINAL [facility] - [place], [address] [place] [id number] 0 Phone: () - 11/25 CBC w/ auto diff MCV fL 80.0 104.0 99.8 FINAL [facility] - [place], [address] [place] [id number] 0 Phone: () - 11/25 CBC w/ auto diff MCH pg 26.0 35.0 32.7 FINAL [facility] - [place], [address] [place] [id number] 0 Phone: () - 11/25 CBC w/ auto diff MCHC g/dL 30.0 35.0 32.8 FINAL [facility] - [place], [address] [place] [id number] 0 Phone: () - 11/25 CBC w/ auto diff MPV fL 9.5 13.4 10.4 FINAL [facility] - [place], [address] [place] [id number] 0 Phone: () - 11/25 CBC w/ auto diff RDW % 11.3 15.6 12.70 FINAL [facility] [place], [address] [facility] [place] [id number] 0 Phone: ( - 11/25 CMP Album in g/dL 3.5 5.0 4.1 FINAL Gio Lopez * [place] [facility], [address] [facility] [id number] 0 11/25 CMP Alkal ine phosp hatas e U/L 36.0 125.0 62 FINAL Gio Lopez * [place] [facility], [address] [facility] [id number] 0 11/25 CMP ALT/S GPT U/L 0.0 49.0 24 FINAL Gio Lopez * [place] [facility], [address] [facility] [id number] 0 11/25 CMP AST/S GOT U/L 17.0 59.0 35 FINAL Gio Lopez * [place] [facility], [address] [facility] [id number] 0 11/25 CMP BUN mg/dL 9.0 20.0 20.0 FINAL Gio Lopez * [place] [facility], [address] [facility] [id number] 0 11/25 CMP Calci um mg/dL 8.4 10.2 9.4 FINAL Gio Lopez * [place] [facility], [address] [facility] [id number] 0 11/25 CMP Chlor marissa mmol/L 96.0 107.0 103 FINAL Gio Lopez * [place] [facility], [address] [facility] [id number] 0 11/25 CMP CO2 mmol/L 22.0 30.0 [...] the 96 hour stability window. [facility], [address] [id number] 0 11/25 CMP Creat inine mg/dL 0.66 1.25 1.60 High [facility]AL [facility], [facility] [address] [id number] 0 11/25 CMP GFR estim ate ml/min /1.73m ^2 43.4 Low GFR is calculate d using the CKD-EPI equation. [facility], [address] [id number] 0 11/25 CMP Gluco se mg/dL 74.0 100.0 98 FINAL [facility], [facility] [address] [address] [id number] 0 11/25 CMP Potas sium mmol/L 3.5 5.1 5.7 Critica l biochemistry teacher ry value tasia Costa ninoska High FINAL [facility], [address] [id number] 0 11/25 CMP Sodiu m mmol/L 137.0 145.0 138 [facility]AL [facility], [address] [id number] 0 11/25 CMP Bilir ubin, total mg/dL 0.2 1.3 0.5 FINAL [facility], [address] [facility] [id number] 0 11/25 CMP Total prote in g/dL 6.3 8.2 7.2 FINAL Gio Lopez * [facility] [place], [address] [facility] [place] [id number] 0 12/01 iSTAT Na+/K +/Cl- panel Sodiu m, iSTAT mmol/L 138.0 146.0 135 Low Reference range adjusted 0 with implement ation of I-Stat 8+ cartridge . FINAL Mary Jane [facility] - [place], [address] [facility] [address] [facility] [id number] 0 Phone: () - 12/01 iSTAT Na+/K +/Cl- panel Potas sium, iSTAT mmol/L 3.5 4.9 4.9 Reference range adjusted 0 with implement ation of I-Stat 8+ cartridge . FINAL Mary Jane [facility] - [place], [address] [facility] [address] [facility] [id number] 0 Phone: () - 12/01 iSTAT Na+/K +/Cl- panel Chlor marissa, iSTAT mmol/L 98.0 109.0 104 Reference range adjusted 0 with implement ation of I-Stat 8+ cartridge . FINAL Mary Jane Interiano [facility] - [place], [address] [facility] [address] [facility] [id number] 0 Phone: () - 12/15 CMP Album in g/dL 3.5 5.0 4.2 FINAL Gio Lopez * [facility] [place], [address] [facility] [id number] 0 12/15 CMP Alkal ine phosp hatas e U/L 36.0 125.0 59 FINAL Gio Lopez * [facility] [place], [address] [facility] [id number] 0 12/15 CMP ALT/S GPT U/L 0.0 49.0 22 FINAL Gio John * [facility], [address] [facility] [address] [id number] 0 12/15 CMP AST/S GOT U/L 17.0 59.0 40 FINAL Gio Lopez * [facility], [address] [facility] [address] [id number] 0 12/15 CMP BUN mg/dL 9.0 20.0 30.0 High FINAL Gio Lopez * [facility], [address] [facility] [address] [id number] 0 12/15 CMP Calci um mg/dL 8.4 10.2 8.8 FINAL Gio Lopez * [facility], [address] [facility] [address] [id number] 0 12/15 CMP Chlor marissa mmol/L 96.0 107.0 109 High FINAL Gio John * [facility], [address] [facility] [address] [id number] 0 12/15 CMP CO2 mmol/L 22.0 30.0 [...] hour stability window. FINAL Gio Lopez * [facility], [address] [facility] [address] [id number] 0 12/15 CMP Creat inine mg/dL 0.66 1.25 1.60 High FINAL Gio Lopez * [facility], [address] [facility] [id number] 0 12/15 CMP GFR estim ate ml/min /1.73m ^2 43.4 Low GFR is calculate d using the CKD-EPI equation. FINAL Gio Lopez * [facility], [address] [id number] 0 12/15 CMP Gluco se mg/dL 74.0 100.0 131 High FINAL Gio Lopez * [facility], [address] [id number] 0 12/15 CMP Potas sium mmol/L 3.5 5.1 4.5 FINAL Gio Lopez * [facility], [address] [id number] 0 12/15 CMP Sodiu m mmol/L 137.0 145.0 137 FINAL Gio Lopez * [facility], [address] [id number] 0 12/15 CMP Bilir ubin, total mg/dL 0.2 1.3 0.5 FINAL Gio Lopez * [facility], [address] [id number] 0 12/15 CMP Total prote in g/dL 6.3 8.2 7.2 FINAL Gio Lopez * [facility], [address] [id number] 0 12/15 TSH w/ refle x to free T4 TSH uIU/mL 0.47 4.68 2.93 FINAL Gio Lopez * [facility], [address] [id number] 0 12/15 CBC w/ auto diff WBC K/uL 3.0 8.9 4.6 FINAL Gio Coronadoot [facility] - [place], [address] [place] [id number] 0 Phone: () - 12/15 CBC w/ auto diff HGB g/dL 12.5 16.6 13.4 FINAL Gio Coron[facility]oot [facility] - [place], [address] [place] [id number] 0 Phone: () - 12/15 CBC w/ auto diff PLT K/uL 113.0 364.0 147 FINAL Gio Coron[facility]oot [facility] - [place], [address] [place] [id number] 0 Phone: () - 12/15 CBC w/ auto diff Tatyana # (ANC) K/uL 1.6 6.6 3.1 FINAL [facility] - [place], [address] [place] [id number] 0 Phone: () - 12/15 CBC w/ auto diff Tatyana % % 43.0 74.0 68.2 FINAL [facility] - [place], [address] [place] [id number] 0 Phone: () - 12/15 CBC w/ auto diff IG % % 0.0 0.5 0.2 FINAL Gio Coronadoot a[facility] - [place], [address] [place] [id number] 0 Phone: () - 12/15 CBC w/ auto diff IG # K/uL 0.0 0.03 0.01 FINAL Gio Coronadoot [facility] - [place], [address] [place] [id number] 0 Phone: () - 12/15 CBC w/ auto diff LY % % 14.0 41.0 19.7 FINAL Gio Coron[facility]oot [facility] - [place], [address] [place] [id number] 0 Phone: () - 12/15 CBC w/ auto diff MO % % 6.0 15.0 9.0 FINAL [facility] - [place], [address] [place] [id number] 0 Phone: () - 12/15 CBC w/ auto diff EO % % 0.0 7.0 2.2 FINAL [facility] - [place], [address] [facility] [address] [place] [id number] 0 Phone: () - 12/15 CBC w/ auto diff BA % % 0.0 2.0 0.7 FINAL [facility] - [place], [address] [facility] [address] [place] [id number] 0 Phone: () - 12/15 CBC w/ auto diff LY # K/uL 0.4 3.6 0.9 FINAL [facility] - [place], [address] [facility] [address] [place] [id number] 0 Phone: () - 12/15 CBC w/ auto diff MO # K/uL 0.2 1.3 0.4 FINAL [facility] - [place], [address] [facility] [address] [place] [id number] 0 Phone: () - 12/15 CBC w/ auto diff EO # K/uL 0.0 0.6 0.1 FINAL [facility] - [place], [address] [facility] [address] [place] [id number] 0 Phone: () - 12/15 CBC w/ auto diff BA # K/uL 0.0 0.2 0.0 FINAL [facility] - [place], [address] [place] [id number] 0 Phone: () - 12/15 CBC w/ auto diff NRBC % #/100W BC 0.0 0.2 0.0 FINAL [facility] - [place], [address] [place] [id number] 0 Phone: () - 12/15 CBC w/ auto diff RBC M/uL 4.2 5.6 4.03 Low FINAL Gio [facility]oot [facility] - [place], [address] [place] [id number] 0 Phone: () - 12/15 CBC w/ auto diff HCT % 39.0 49.0 40.1 FINAL Gio [facility] - [place], [address] [facility] [address] [place] [id number] 0 Phone: () - 12/15 CBC w/ auto diff MCV fL 80.0 104.0 99.5 FINAL Gio Interiano [facility] - [place], [address] [facility] [facility] [address] [place] [id number] 0 Phone: () - 12/15 CBC w/ auto diff MCH pg 26.0 35.0 33.3 FINAL Gio [facility] - [place], [address] [facility] [address] [place] [id number] 0 Phone: () - 12/15 CBC w/ auto diff MCHC g/dL 30.0 35.0 33.4 FINAL Gio [facility] - [place], [address] [facility] [facility] [address] [place] [id number] 0 Phone: () - 12/15 CBC w/ auto diff MPV fL 9.5 13.4 10.5 FINAL Gio [facility] [place], [address] [place] [id number] 0 Phone: () - 12/15 CBC w/ auto diff RDW % 11.3 15.6 12.60 FINAL [facility] [place], [address] [place] [id number] 0 Phone: () - 01/05 CMP Album in g/dL 3.5 5.0 3.9 FINAL Gio Lopez * [facility] [place], [address] [place] [id number] 0 01/05 CMP Alkal ine phosp hatas e U/L 36.0 125.0 65 FINAL Gio Lopez * [facility] [address] [id number] 0 01/05 CMP ALT/S GPT U/L 0.0 49.0 27 FINAL Gio Lopez * [facility], [address] [id number] 0 01/05 CMP AST/S GOT U/L 17.0 59.0 35 FINAL Gio Lopez * [facility], [address] hospital [address] [id number] 0 01/05 CMP BUN mg/dL 9.0 20.0 27.0 High FINAL Gio Lopez * [facility] [address] [id number] 0 01/05 CMP Calci um mg/dL 8.4 10.2 8.7 FINAL Goi Lopez * [facility], [address] [id number] 0 01/05 CMP Chlor marissa mmol/L 96.0 107.0 109 High FINAL Gio Lopez * [facility] [address] [id number] 0 01/05 CMP CO2 mmol/L 22.0 30.0 [...] hour stability window. FINAL Gio Lopez * [facility], [address] [facility] [id number] 0 01/05 CMP Creat inine mg/dL 0.66 1.25 1.70 High FINAL Gio Lopez * [facility], [address] [facility] [id number] 0 01/05 CMP GFR estim ate ml/min /1.73m ^2 40.4 Low GFR is calculate d using the CKD-EPI equation. FINAL Gio John * Ivonneot a [facility], [address] [id number] 0 01/05 CMP Gluco se mg/dL 74.0 100.0 98 FINAL Gio Lopez * [facility], [address] [id number] 0 01/05 CMP Potas sium mmol/L 3.5 5.1 5.0 FINAL Gio Lopez * [facility], [address] [id number] 0 01/05 CMP Sodiu m mmol/L 137.0 145.0 138 FINAL Gio Lopez * [facility], [address] [id number] 0 01/05 CMP Bilir ubin, total mg/dL 0.2 1.3 0.6 FINAL Gio Lopez * [facility], [address] [id number] 0 01/05 CMP Total prote in g/dL 6.3 8.2 7.0 FINAL Gio Lopez * [facility], [address] [facility] [id number] 0 01/05 TSH w/ refle x to free T4 TSH uIU/mL 0.47 4.68 1.34 FINAL Gio Lopez * [facility] [place], [address] [facility] [place] [id number] 0 01/05 CBC w/ auto diff WBC K/uL 3.0 8.9 5.1 FINAL Gio Coronadoot a [facility] [place], [address] [place] [id number] 0 Phone: () - 01/05 CBC w/ auto diff HGB g/dL 12.5 16.6 13.1 FINAL Gio Coronadoot a [facility] [place], [address] [place] [id number] 0 Phone: () - 01/05 CBC w/ auto diff PLT K/uL 113.0 364.0 139 FINAL Gio Coronadoot a [facility] [place], [address] [place] [id number] 0 Phone: () - 01/05 CBC w/ auto diff Tatyana # (ANC) K/uL 1.6 6.6 3.4 FINAL Gio Coronadoot a [facility] [place], [address] [place] [id number] 0 Phone: () - 01/05 CBC w/ auto diff Tatyana % % 43.0 74.0 67.4 FINAL Gio Coronadoot a [facility] [place], [address] [place] [id number] 0 Phone: () - 01/05 CBC w/ auto diff IG % % 0.0 0.5 0.6 High FINAL Gio Coronadoot a [facility] [place], [address] [place] [id number] 0 Phone: () - 01/05 CBC w/ auto diff IG # K/uL 0.0 0.03 0.03 FINAL Gio Coronadoot a [facility] [place], [address] [place] [id number] 0 Phone: () - 01/05 CBC w/ auto diff LY % % 14.0 41.0 21.3 FINAL Gio chapman [facility] [place], [address] [place] [id number] 0 Phone: () - 01/05 CBC w/ auto diff MO % % 6.0 15.0 8.7 FINAL Gio chapman [facility] - [place], [address] [place] [id number] 0 Phone: () - 01/05 CBC w/ auto diff EO % % 0.0 7.0 1.6 FINAL Gio chapman [facility] - [place], [address] [place] [id number] 0 Phone: () - 01/05 CBC w/ auto diff BA % % 0.0 2.0 0.4 FINAL Gio chapman [facility] - [place], [address] [place] [id number] 0 Phone: () - 01/05 CBC w/ auto diff LY # K/uL 0.4 3.6 1.1 FINAL Gio chapman [facility] - [place], [address] [place] [id number] 0 Phone: () - 01/05 CBC w/ auto diff MO # K/uL 0.2 1.3 0.4 FINAL Gio chapman [facility] [place], [address] [place] [id number] 0 Phone: () - 01/05 CBC w/ auto diff EO # K/uL 0.0 0.6 0.1 FINAL Gio chapman [facility] - [place], [address] [place] [id number] 0 Phone: () - 01/05 CBC w/ auto diff BA # K/uL 0.0 0.2 0.0 FINAL Gio chapman [facility] - [place], [address] [place] [id number] 0 Phone: () - 01/05 CBC w/ auto diff NRBC % #/100W BC 0.0 0.2 0.0 FINAL Gio Coronadoot a [facility] [place], [address] [place] [id number] 0 Phone: () - 01/05 CBC w/ auto diff RBC M/uL 4.2 5.6 3.92 Low FINAL Gio Coronadoot a [facility] [place], [address] [place] [id number] 0 Phone: () - 01/05 CBC w/ auto diff HCT % 39.0 49.0 39.1 FINAL Gio Coronadoot a [facility] [place], [address] [place] [id number] 0 Phone: () - 01/05 CBC w/ auto diff MCV fL 80.0 104.0 99.7 FINAL Gio Coronadoot a [facility] [place], [address] [place] [id number] 0 Phone: () - 01/05 CBC w/ auto diff MCH pg 26.0 35.0 33.4 FINAL Gio Interiano a [facility] - [place], [address] [place] [id number] 0 Phone: () - 01/05 CBC w/ auto diff MCHC g/dL 30.0 35.0 33.5 FINAL Gio Coronadoot a [facility] [place], [address] [place] [id number] 0 Phone: () - 01/05 CBC w/ auto diff MPV fL 9.5 13.4 9.7 FINAL Gio Coronadoot a [facility] [place], [address] [place] [id number] 0 Phone: () - 01/05 CBC w/ auto diff RDW % 11.3 15.6 13.00 FINAL Gio Coronadoot a [facility] [place], [address] [place] [id number] 0 Phone: () - 01/26 CBC w/ auto diff WBC K/uL 3.0 8.9 4.5 FINAL Mary Jane chapman [facility] [place], [address] [place] [id number] 0 Phone: () - 01/26 CBC w/ auto diff HGB g/dL 12.5 16.6 13.1 FINAL Mary Jane chapman [facility] [place], [address] [facility] [address] [place] [id number] 0 Phone: () - 01/26 CBC w/ auto diff PLT K/uL 113.0 364.0 155 FINAL Mary Jane Interiano ari [facility] [place], [address] [facility] [address] [place] [id number] 0 Phone: () - 01/26 CBC w/ auto diff Tatyana # (ANC) K/uL 1.6 6.6 2.9 FINAL Mary Jane chapman [facility] [place], [address] [facility] [address] [place] [id number] 0 Phone: () - 01/26 CBC w/ auto diff Tatyana % % 43.0 74.0 64.7 FINAL Mary Jane Interiano ari [facility] [place], [address] [place] [id number] 0 Phone: () - 01/26 CBC w/ auto diff IG % % 0.0 0.5 0.4 FINAL Mary Jane chapman [facility] - [place], [address] [place] [id number] 0 Phone: () - 01/26 CBC w/ auto diff IG # K/uL 0.0 0.03 0.02 FINAL Mary Jane chapman [facility] [place], [address] [place] [id number] 0 Phone: () - 01/26 CBC w/ auto diff LY % % 14.0 41.0 23.4 FINAL Mary Jane Interiano a [facility] [place], [address] [place] [id number] 0 Phone: () - 01/26 CBC w/ auto diff MO % % 6.0 15.0 9.8 FINAL Mary Jane chapman [facility] - [place], [address] [place] [id number] 0 Phone: () - 01/26 CBC w/ auto diff EO % % 0.0 7.0 1.3 FINAL Mary Jane Interiano a [facility] [place], [address] [place] [id number] 0 Phone: () - 01/26 CBC w/ auto diff BA % % 0.0 2.0 0.4 FINAL Mary Jane chapman [facility] - [place], [address] [place] [id number] 0 Phone: () - 01/26 CBC w/ auto diff LY # K/uL 0.4 3.6 1.1 FINAL Mary Jane chapman [facility] - [place], [address] [place] [id number] 0 Phone: () - 01/26 CBC w/ auto diff MO # K/uL 0.2 1.3 0.4 FINAL Mary Jane chapman [facility] - [place], [address] [place] [id number] 0 Phone: () - 01/26 CBC w/ auto diff EO # K/uL 0.0 0.6 0.1 FINAL Mary Jane chapman [facility] - [place], [address] [place] [id number] 0 Phone: () - 01/26 CBC w/ auto diff BA # K/uL 0.0 0.2 0.0 FINAL Mary Jane Coronadoot a [facility] [place], [address] [place] [id number] 0 Phone: () - 01/26 CBC w/ auto diff NRBC % #/100W BC 0.0 0.2 0.0 FINAL Mary Jane chapman [facility] - [place], [address] [facility] [address] [place] [id number] 0 Phone: () - 01/26 CBC w/ auto diff RBC M/uL 4.2 5.6 3.98 Low FINAL Mary Jane chapman [facility] - [place], [address] [facility] [address] [place] [id number] 0 Phone: () - 01/26 CBC w/ auto diff HCT % 39.0 49.0 39.5 FINAL Mary Jane chapman [facility] - [place], [address] [facility] [address] [place] [id number] 0 Phone: () - 01/26 CBC w/ auto diff MCV fL 80.0 104.0 99.2 FINAL Mary Jane chapman [facility] - [place], [address] [facility] [address] [place] [id number] 0 Phone: () - 01/26 CBC w/ auto diff MCH pg 26.0 35.0 32.9 FINAL Mary Jane chapman [facility] - [place], [address] [facility] [address] [place] [id number] 0 Phone: () - 01/26 CBC w/ auto diff MCHC g/dL 30.0 35.0 33.2 FINAL Mary Jane chapman [facility] - [place], [address] [facility] [address] [place] [id number] 0 Phone: () - 01/26 CBC w/ auto diff MPV fL 9.5 13.4 10.3 FINAL Mary Jane chapman [facility] - [place], [address] [facility] [address] [place] [id number] 0 Phone: () - 01/26 CBC w/ auto diff RDW % 11.3 15.6 12.90 FINAL Mary Jane chapman [facility] - [place], [address] [place] [id number] 0 Phone: () - 01/26 TSH w/ refle x to free T4 TSH uIU/mL 0.47 4.68 1.54 FINAL Mary Jane chapman Oncology [facility], [address] [id number] 0 01/26 CMP Chlor marissa mmol/L 96.0 107.0 108 High FINAL Mary Jane chapman [facility], [address] [id number] 0 01/26 CMP CO2 mmol/L 22.0 30.0 [...] hour stability window. FINAL Mary Jane chapman [facility], [address] [id number] 0 01/26 CMP Creat inine mg/dL 0.66 1.25 1.70 High FINAL Mary Jane chapman [facility], [address] [id number] 0 01/26 CMP GFR estim ate ml/min /1.73m ^2 40.4 Low GFR is calculate d using the CKD-EPI equation. FINAL Mary Jane chapman [facility], [address] [id number] 0 01/26 CMP Gluco se mg/dL 74.0 100.0 138 High FINAL Mary Jane chapman [facility], [address] [id number] 0 01/26 CMP Potas sium mmol/L 3.5 5.1 4.9 FINAL Mary Jane Ko * [facility], [address] [id number] 0 01/26 CMP Sodiu m mmol/L 137.0 145.0 139 FINAL Mary Jane Ko * [facility], [facility] [address] [id number] 0 01/26 CMP Bilir ubin, total mg/dL 0.2 1.3 0.5 FINAL Mary Jane Stefani * [facility], [facility] [address] [id number] 0 01/26 CMP Total prote in g/dL 6.3 8.2 6.9 FINAL Mary Jane Stefani * [facility] [address] [id number] 0 01/26 CMP Album in g/dL 3.5 5.0 3.8 FINAL Mary Jane Stefani * [facility], [facility] [address] [id number] 0 01/26 CMP Alkal ine phosp hatas e U/L 36.0 125.0 71 FINAL Mary Janejass Ko * [facility] [address] [id number] 0 01/26 CMP ALT/S GPT U/L 0.0 49.0 25 FINAL Mary Jane Stefani * [facility], [address] [facility] [address] [id number] 0 01/26 CMP AST/S GOT U/L 17.0 59.0 35 FINAL Mary Jane Ko * [facility], [address] [facility] [place] [id number] 0 01/26 CMP BUN mg/dL 9.0 20.0 26.0 High FINAL Mary Jane Ko * [place] [facility] [place], [address] [facility] [place] [id number] 0 01/26 CMP Calci um mg/dL 8.4 10.2 8.7 FINAL Mary Jane Ko * [place] [facility] [place], [address] [facility] [place] [id number] 0 02/16 CBC w/ auto diff WBC K/uL 3.0 8.9 6.1 FINAL Mary Jane Ko [facility] [place], [address] [place] [id number] 0 Phone: () - 02/16 CBC w/ auto diff HGB g/dL 12.5 16.6 12.8 FINAL Mary Jane Coron[facility] [place], [address] [place] [id number] 0 Phone: () - 02/16 CBC w/ auto diff PLT K/uL 113.0 364.0 147 FINAL Mary Jane [facility] [place], [address] [place] [id number] 0 Phone: () - 02/16 CBC w/ auto diff Tatyana # (ANC) K/uL 1.6 6.6 4.0 FINAL Mary Jane Ko [facility] [place], [address] [place] [id number] 0 Phone: () - 02/16 CBC w/ auto diff Tatyana % % 43.0 74.0 65.9 FINAL Mary Jane Ko [facility] [place], [address] [place] [id number] 0 Phone: () - 09/26 /2024 CBC w/ auto diff IG % % 0.0 0.5 0.3 FINAL Mary Jane Coronadoot a[facility] - [place], [address] [place] [id number] 0 Phone: () - 02/16 CBC w/ auto diff IG # K/uL 0.0 0.03 0.02 FINAL Mary Jane chapman [facility] - [place], [address] [place] [id number] 0 Phone: () - 02/16 CBC w/ auto diff LY % % 14.0 41.0 23.1 FINAL Mary Jane Coronadoot a[facility] - [place], [address] [place] [id number] 0 Phone: () - 02/16 CBC w/ auto diff MO % % 6.0 15.0 8.7 FINAL Mary Jane [facility] [place], [address] [place] [id number] 0 Phone: () - 02/16 CBC w/ auto diff EO % % 0.0 7.0 1.7 FINAL Mary Jane chapman [facility] - [place], [address] [place] [id number] 0 Phone: () - 02/16 CBC w/ auto diff BA % % 0.0 2.0 0.3 FINAL Mary Jane Interiano a [facility] - [place], [address] [place] [id number] 0 Phone: () - 02/16 CBC w/ auto diff LY # K/uL 0.4 3.6 1.4 FINAL Mary Jane Interiano a [facility] - [place], [address] [place] [id number] 0 Phone: () - 02/16 CBC w/ auto diff MO # K/uL 0.2 1.3 0.5 FINAL Mary Jane Coron[facility]oot [facility] [place], [address] [place] [id number] 0 Phone: () - 02/16 CBC w/ auto diff EO # K/uL 0.0 0.6 0.1 FINAL Mary Jane chapman [facility] - [place], [address] [facility] [address] [place] [id number] 0 Phone: () - 02/16 CBC w/ auto diff BA # K/uL 0.0 0.2 0.0 FINAL Mary Jane chapman [facility] - [place], [address] [facility] [address] [place] [id number] 0 Phone: () - 02/16 CBC w/ auto diff NRBC % #/100W BC 0.0 0.2 0.0 FINAL Mary Jane chapman [facility] - [place], [address] [facility] [address] [place] [id number] 0 Phone: () - 02/16 CBC w/ auto diff RBC M/uL 4.2 5.6 3.85 Low FINAL Mary Jane chapman [facility] - [place], [address] [facility] [address] [place] [id number] 0 Phone: () - 02/16 CBC w/ auto diff HCT % 39.0 49.0 38.3 Low FINAL Mary Jane chapman [facility] - [place], [address] [facility] [address] [place] [id number] 0 Phone: () - 02/16 CBC w/ auto diff MCV fL 80.0 104.0 99.5 FINAL Mary aJne chapman [facility] - [place], [address] [facility] [address] [place] [id number] 0 Phone: () - 02/16 CBC w/ auto diff MCH pg 26.0 35.0 33.2 FINAL Mary Jane chapman [facility] - [place], [address] [facility] [address] [place] [id number] 0 Phone: () - 02/16 CBC w/ auto diff MCHC g/dL 30.0 35.0 33.4 FINAL Mary Jane Stefani [facility] [place], [address] [place] [id number] 0 Phone: () - 02/16 CBC w/ auto diff MPV fL 9.5 13.4 10.6 FINAL Mary Jane Ko [facility] [place], [address] [place] [id number] 0 Phone: () - 02/16 CBC w/ auto diff RDW % 11.3 15.6 12.90 FINAL Mary Jane Ko [facility] [place], [address] [place] [id number] 0 Phone: () - 02/16 TSH w/ refle x to free T4 TSH uIU/mL 0.47 4.68 0.97 FINAL Mary Jane Ko * [place] [facility], [address] [facility] [id number] 0 02/16 CMP Album in g/dL 3.5 5.0 3.9 FINAL Mary Jane Ko * [place] [facility], [address] [facility] [id number] 0 02/16 CMP Alkal ine phosp hatas e U/L 36.0 125.0 61 FINAL Mary Jane Ko * [place] [facility], [address] [facility] [id number] 0 02/16 CMP ALT/S GPT U/L 0.0 49.0 20 FINAL Mary Jane Ko * [place] [facility], [address] [facility] [id number] 0 02/16 CMP BUN mg/dL 9.0 20.0 34.0 High FINAL Mary Jane Ko * [place] [facility], [address] [facility] [id number] 0 02/16 CMP Calci um mg/dL 8.4 10.2 8.7 FINAL Mary Jane Coronado ari [facility], [facility] [address] [id number] 0 02/16 CMP Chlor marissa mmol/L 96.0 107.0 109 High FINAL [facility], [facility] [address] [id number] 0 02/16 CMP CO2 mmol/L 22.0 30.0 [...] hour stability window. FINAL Mary Jane chapman [facility], [address] [place] [address] [address] [id number] 0 02/16 CMP Creat inine mg/dL 0.66 1.25 1.80 High FINAL Mary Jane chapman [facility], [address] [place] [address] [place] [address] [id number] 0 02/16 CMP GFR estim ate ml/min /1.73m ^2 37.7 Low GFR is calculate d using the CKD-EPI equation. FINAL Mary Jane Interiano [facility], [address] [place] [address] [address] [id number] 0 02/16 CMP Gluco se mg/dL 74.0 100.0 116 High FINAL Mary Jane chapman [facility], [facility] [address] [id number] 0 02/16 CMP Potas sium mmol/L 3.5 5.1 5.4 High FINAL Mary Jane Ko * [place] [facility], [address] [facility] [id number] 0 02/16 CMP AST/S GOT U/L 17.0 59.0 29 FINAL Mary Jane Ko * [place] [facility], [address] [facility] [id number] 0 02/16 CMP Sodiu m mmol/L 137.0 145.0 138 FINAL Mary Jane Ko * [place] [facility], [address] [facility] [id number] 0 02/16 CMP Bilir ubin, total mg/dL 0.2 1.3 0.4 FINAL Mary Jane Ko * [place] [facility], [address] [facility] [id number] 0 02/16 CMP Total prote in g/dL 6.3 8.2 6.8 FINAL Mary Jane Ko * [place] [facility], [address] [facility] [id number] 0 02/23 CMP Album in g/dL 3.5 5.0 3.8 FINAL Mary Jane Ko * [place] [facility], [address] [facility] [id number] 0 02/23 CMP Alkal ine phosp hatas e U/L 36.0 125.0 77 FINAL Mary Jane Ko * [place] [facility], [address] [facility] [id number] 0 02/23 CMP ALT/S GPT U/L 0.0 49.0 22 FINAL Mary Jane Stefani * [place] [facility], [address] [facility] [id number] 0 02/23 CMP AST/S GOT U/L 17.0 59.0 29 FINAL [facility], [address] [facility] [address] [id number] 0 02/23 CMP BUN mg/dL 9.0 20.0 30.0 High FINAL Mary Jane Elizabeth [facility], [facility] [address] [id number] 0 02/23 CMP Calci um mg/dL 8.4 10.2 9.0 FINAL Mary Jane Elizabeth [facility], [facility] [address] [id number] 0 02/23 CMP Chlor marissa mmol/L 96.0 107.0 108 High FINAL [facility], [facility] [address] [id number] 0 02/23 CMP CO2 mmol/L 22.0 30.0 [...] stability window. FINAL Mary Jane Ko * [facility] [address] [id number] 0 02/23 CMP Creat inine mg/dL 0.66 1.25 1.50 High FINAL [facility], [facility] [address] [id number] 0 02/23 CMP GFR estim ate ml/min /1.73m ^2 46.9 Low GFR is calculate d using the CKD-EPI equation. FINAL Mary Jane Ko * [facility], [address] [facility] [address] [id number] 0 02/23 CMP Gluco se mg/dL 74.0 100.0 134 High FINAL Mary Jane Ko * [facility], [address] [facility] [address] [id number] 0 02/23 CMP Potas sium mmol/L 3.5 5.1 4.8 FINAL Mary Jane Ko * [facility], [facility] [address] [id number] 0 02/23 CMP Sodiu m mmol/L 137.0 145.0 139 FINAL Mary Jane Ko * [facility], [facility] [address] [id number] 0 02/23 CMP Bilir ubin, total mg/dL 0.2 1.3 0.7 FINAL Mary Jane Ko * [facility], [address] [place] [address] [id number] 0 02/23 CMP Total prote in g/dL 6.3 8.2 6.6 FINAL Mary Jane Ko * [facility], [address] [facility] [address] [id number] 0 03/03 CMP Album in g/dL 3.5 5.0 3.7 FINAL Gio Lopez * [facility], [address] [id number] 0 03/03 CMP Alkal ine phosp hatas e U/L 36.0 125.0 69 FINAL Gio Lopez * [facility], [address] [id number] 0 03/03 CMP ALT/S GPT U/L 0.0 49.0 15 FINAL [facility], [facility] Formerly [facility] [address] [id number] 0 03/03 CMP AST/S GOT U/L 17.0 59.0 28 [facility]AL [facility] [address] [facility] [address] [id number] 0 03/03 CMP BUN mg/dL 9.0 20.0 26.0 High FINAL [facility], [facility] [address] [id number] 0 03/03 CMP Calci um mg/dL 8.4 10.2 8.5 FINAL [facility], [facility] [address] [id number] 0 03/03 CMP Chlor marissa mmol/L 96.0 107.0 110 High [facility]AL [facility], [facility] [address] [place] [address] [id number] 0 03/03 CMP CO2 mmol/L 22.0 30.0 [...] of the 96 hour stability window. FINAL [facility] [address] [facility] [address] [id number] 0 03/03 CMP Creat inine mg/dL 0.66 1.25 1.60 High FINAL [facility]io [facility], [address] [facility] [id number] 0 03/03 CMP GFR estim ate ml/min /1.73m ^2 43.4 Low GFR is calculate d using the CKD-EPI equation. FINAL Gio Lopez * [place] [facility], [address] [facility] [id number] 0 03/03 CMP Gluco se mg/dL 74.0 100.0 99 FINAL Gio Lopez * [place] [facility], [address] [facility] [id number] 0 03/03 CMP Potas sium mmol/L 3.5 5.1 4.2 FINAL Gio Lopez * [place] [facility], [address] [facility] [id number] 0 03/03 CMP Sodiu m mmol/L 137.0 145.0 139 FINAL Gio Lopez * [place] [facility], [address] [facility] [id number] 0 03/03 CMP Bilir ubin, total mg/dL 0.2 1.3 0.5 FINAL Gio Lopez * [place] [facility], [address] [facility] [id number] 0 03/03 CMP Total prote in g/dL 6.3 8.2 6.5 FINAL Gio Lopez * [place] [facility], [address] [facility] [id number] 0 03/03 TSH w/ refle x to free T4 TSH uIU/mL 0.47 4.68 2.38 FINAL Gio Lopez * [place] [facility], [address] [facility] [id number] 0 03/03 CBC w/ auto diff WBC K/uL 3.0 8.9 6.9 FINAL Gio chapman [facility] - [place], [address] [place] [id number] 0 Phone: () - 03/03 CBC w/ auto diff HGB g/dL 12.5 16.6 12.1 Low FINAL Gio chapman [facility] - [place], [address] [place] [id number] 0 Phone: () - 03/03 CBC w/ auto diff PLT K/uL 113.0 364.0 140 FINAL Gio Coronadoot ari [facility] - [place], [address] [place] [id number] 0 Phone: () - 03/03 CBC w/ auto diff Tatyana # (ANC) K/uL 1.6 6.6 4.5 FINAL Gio chapman [facility] - [place], [address] [place] [id number] 0 Phone: () - 03/03 CBC w/ auto diff Tatyana % % 43.0 74.0 65.1 FINAL Gio chapman [facility] - [place], [address] [place] [id number] 0 Phone: () - 03/03 CBC w/ auto diff IG % % 0.0 0.5 0.3 FINAL Gio chapman [facility] - [place], [address] [place] [id number] 0 Phone: () - 03/03 CBC w/ auto diff IG # K/uL 0.0 0.03 0.02 FINAL Gio Coronadoot ari [facility] - [place], [address] [place] [id number] 0 Phone: () - 03/03 CBC w/ auto diff LY % % 14.0 41.0 20.6 FINAL Gio Coronadoot ari [facility] - [place], [address] [place] [id number] 0 Phone: () - 03/03 CBC w/ auto diff MO % % 6.0 15.0 9.6 FINAL Gio Coronadoot a [facility] - [place], [address] [place] [id number] 0 Phone: () - 03/03 CBC w/ auto diff EO % % 0.0 7.0 4.3 FINAL Gio Coronadoot a [facility] - [place], [address] [place] [id number] 0 Phone: () - 03/03 CBC w/ auto diff BA % % 0.0 2.0 0.1 FINAL Gio Coronadoot a [facility] - [place], [address] [place] [id number] 0 Phone: () - 03/03 CBC w/ auto diff LY # K/uL 0.4 3.6 1.4 FINAL Gio Coronadoot a [facility] - [place], [address] [place] [id number] 0 Phone: () - 03/03 CBC w/ auto diff MO # K/uL 0.2 1.3 0.7 FINAL Gio Coronadoot a [facility] - [place], [address] [place] [id number] 0 Phone: () - 03/03 CBC w/ auto diff EO # K/uL 0.0 0.6 0.3 FINAL Gio Coronadoot a [facility] - [place], [address] [place] [id number] 0 Phone: () - 03/03 CBC w/ auto diff BA # K/uL 0.0 0.2 0.0 FINAL Gio Coronadoot a [facility] - [place], [address] [place] [id number] 0 Phone: () - 03/03 CBC w/ auto diff NRBC % #/100W BC 0.0 0.2 0.0 FINAL Gio Coronadoot a [facility] - [place], [address] [place] [id number] 0 Phone: () - 03/03 CBC w/ auto diff RBC M/uL 4.2 5.6 3.64 Low FINAL Gio Interiano a [facility] - [place], [address] [place] [id number] 0 Phone: () - 03/03 CBC w/ auto diff HCT % 39.0 49.0 36.6 Low FINAL Gio Interiano a [facility] - [place], [address] [place] [id number] 0 Phone: () - 03/03 CBC w/ auto diff MCV fL 80.0 104.0 100.5 FINAL Gio chapman [facility] - [place], [address] [place] [id number] 0 Phone: () - 03/03 CBC w/ auto diff MCH pg 26.0 35.0 33.2 FINAL Gio chapman [facility] - [place], [address] [place] [id number] 0 Phone: () - 03/03 CBC w/ auto diff MCHC g/dL 30.0 35.0 33.1 FINAL Gio chapman [facility] - [place], [address] [place] [id number] 0 Phone: () - 03/03 CBC w/ auto diff MPV fL 9.5 13.4 10.6 FINAL Gio Interiano a [facility] - [place], [address] [place] [id number] 0 Phone: () - 03/03 CBC w/ auto diff RDW % 11.3 15.6 13.20 FINAL Gio chapman [facility] - [place], [address] [place] [id number] 0 Phone: () - 03/30 CMP Album in g/dL 3.5 5.0 3.8 FINAL Gio Lopez * [place] [facility] [place], [address] [facility] [id number] 0 03/30 CMP Alkal ine phosp hatas e U/L 36.0 125.0 79 FINAL Gio Lopez * [place] [facility], [address] [facility] [id number] 0 03/30 CMP ALT/S GPT U/L 0.0 49.0 24 FINAL Gio Lopez * [place] [facility], [address] [facility] [id number] 0 03/30 CMP AST/S GOT U/L 17.0 59.0 32 FINAL Gio Lopez * [facility], [address] [facility] [id number] 0 03/30 CMP BUN mg/dL 9.0 20.0 19.0 FINAL Gio Lopez * [facility], [address] [facility] [id number] 0 03/30 CMP Calci um mg/dL 8.4 10.2 8.2 Low FINAL Gio Lopez * [facility], [address] [facility] [id number] 0 03/30 CMP Chlor marissa mmol/L 96.0 107.0 108 High FINAL Gio Elizabeth [place] [facility], [address] [facility] [id number] 0 03/30 CMP CO2 mmol/L 22.0 30.0 [...] 96 hour stability window. FINAL Gio Elizabeth [place] [facility], [address] [facility] [id number] 0 03/30 CMP Creat inine mg/dL 0.66 1.25 1.40 High FINAL Gio Lopez * [place] [facility], [address] [facility] [id number] 0 03/30 CMP GFR estim ate ml/min /1.73m ^2 50.9 Low GFR is calculate d using the CKD-EPI equation. FINAL Gio Lopez * [place] [facility], [address] [facility] [id number] 0 03/30 CMP Gluco se mg/dL 74.0 100.0 115 High FINAL Gio Lopez * [place] [facility], [address] [facility] [id number] 0 03/30 CMP Potas sium mmol/L 3.5 5.1 4.4 FINAL Gio Lopez * [place] [facility], [address] [facility] [id number] 0 03/30 CMP Sodiu m mmol/L 137.0 145.0 137 FINAL Gio Lopez * [place] [facility], [address] [facility] [id number] 0 03/30 CMP Bilir ubin, total mg/dL 0.2 1.3 0.4 FINAL Gio Lopez * [place] [facility], [address] [facility] [id number] 0 03/30 CMP Total prote in g/dL 6.3 8.2 6.8 FINAL Gio Lopez * [place] [facility], [address] [facility] [id number] 0 03/30 CBC w/ auto diff WBC K/uL 3.0 8.9 5.6 FINAL Gio Lopez [place] [facility] [place], [address] [place] [id number] 0 03/30 CBC w/ auto diff HGB g/dL 12.5 16.6 12.9 FINAL Gio MEDINA [facility] - [place], [address] [place] [id number] 0 03/30 CBC w/ auto diff PLT K/uL 113.0 364.0 152 FINAL Gio MEDINA [facility] - [place], [address] [place] [id number] 0 03/30 CBC w/ auto diff Tatyana # (ANC) K/uL 1.6 6.6 3.4 FINAL Gio MEDINA [facility] - [place], [address] [place] [id number] 0 03/30 CBC w/ auto diff Tatyana % % 43.0 74.0 60.7 FINAL Gio MEDINA [facility] - [place], [address] [place] [id number] 0 03/30 CBC w/ auto diff IG % % 0.0 0.5 0.2 FINAL Gio MEDINA [facility] - [place], [address] [place] [id number] 0 03/30 CBC w/ auto diff IG # K/uL 0.0 0.03 0.01 FINAL Gio MEDINA [facility] - [place], [address] [place] [id number] 0 03/30 CBC w/ auto diff LY % % 14.0 41.0 25.1 FINAL Gio MEDINA [facility] - [place], [address] [place] [id number] 0 03/30 CBC w/ auto diff MO % % 6.0 15.0 8.6 FINAL Gio MED[facility] - [place], [address] [place] [id number] 0 03/30 CBC w/ auto diff EO % % 0.0 7.0 5.2 FINAL Gio MED[facility] - [place], [address] [place] [id number] 0 03/30 CBC w/ auto diff BA % % 0.0 2.0 0.2 FINAL Gio MED[facility] - [place], [address] [place] [id number] 0 03/30 CBC w/ auto diff LY # K/uL 0.4 3.6 1.4 FINAL Gio MEDINA [facility] - [place], [address] [place] [id number] 0 03/30 CBC w/ auto diff MO # K/uL 0.2 1.3 0.5 FINAL Gio MEDINA [facility] - [place], [address] [place] [id number] 0 03/30 CBC w/ auto diff EO # K/uL 0.0 0.6 0.3 FINAL Gio MEDINA [facility] - [place], [address] [place] [id number] 0 03/30 CBC w/ auto diff BA # K/uL 0.0 0.2 0.0 FINAL Gio MED[facility] - [place], [address] [place] [id number] 0 03/30 CBC w/ auto diff NRBC % #/100W BC 0.0 0.2 0.0 FINAL Gio MEDINA [facility] - [place], [address] [place] [id number] 0 03/30 CBC w/ auto diff RBC M/uL 4.2 5.6 4.00 Low FINAL Gio MEDINA [facility] - [place], [address] [place] [id number] 0 03/30 CBC w/ auto diff HCT % 39.0 49.0 40.1 FINAL Gio MEDINA [facility] - [place], [address] [place] [id number] 0 03/30 CBC w/ auto diff MCV fL 80.0 104.0 100.3 FINAL Gio MEDINA [facility] - [place], [address] [place] [id number] 0 03/30 CBC w/ auto diff MCH pg 26.0 35.0 32.3 FINAL Gio MEDINA [facility] - [place], [address] [place] [id number] 0 03/30 CBC w/ auto diff MCHC g/dL 30.0 35.0 32.2 FINAL Gio MEDINA [facility] - [place], [address] [place] [id number] 0 03/30 CBC w/ auto diff MPV fL 9.5 13.4 10.3 FINAL Gio MEDINA [facility] - [place], [address] [place] [id number] 0 03/30 CBC w/ auto diff RDW % 11.3 15.6 12.80 FINAL Gio MED[facility] - [place], [address] [place] [id number] 0 03/30 TSH w/ refle x to free T4 TSH uIU/mL 0.47 4.68 1.61 FINAL Gio Lopez * [place] [facility] [place], [address] [facility] [id number] 0 04/21 TSH w/ refle x to free T4 TSH uIU/mL 0.47 4.68 1.94 FINAL Gio Lopez * [place] [facility] [place], [address] [facility] [id number] 0 04/21 CBC w/ auto diff WBC K/uL 3.0 8.9 4.6 FINAL Gio MEDINA [facility] - [place], [address] [place] [id number] 0 04/21 CBC w/ auto diff HGB g/dL 12.5 16.6 13.0 FINAL Gio MEDINA [facility] - [place], [address] [place] [id number] 0 04/21 CBC w/ auto diff PLT K/uL 113.0 364.0 134 FINAL Gio MEDINA [facility] - [place], [address] [place] [id number] 0 04/21 CBC w/ auto diff Plate let, immat ure, fract ion % 0.9 11.2 3.8 FINAL Gio MED[facility] - [place], [address] [place] [id number] 0 04/21 CBC w/ auto diff Tatyana # (ANC) K/uL 1.6 6.6 2.9 FINAL Gio MEDINA [facility] - [place], [address] [place] [id number] 0 04/21 CBC w/ auto diff Tatyana % % 43.0 74.0 63.1 FINAL Gio MEDINA [facility] - [place], [address] [place] [id number] 0 04/21 CBC w/ auto diff IG % % 0.0 0.5 0.4 FINAL Gio MED[facility] - [place], [address] [place] [id number] 0 04/21 CBC w/ auto diff IG # K/uL 0.0 0.03 0.02 FINAL Gio MEDINA [facility] - [place], [address] [place] [id number] 0 04/21 CBC w/ auto diff LY % % 14.0 41.0 24.3 FINAL Gio MEDINA [facility] - [place], [address] [place] [id number] 0 04/21 CBC w/ auto diff MO % % 6.0 15.0 8.7 FINAL Gio MEDINA [facility] - [place], [address] [place] [id number] 0 04/21 CBC w/ auto diff EO % % 0.0 7.0 3.3 FINAL Gio MEDINA [facility] - [place], [address] [place] [id number] 0 04/21 CBC w/ auto diff BA % % 0.0 2.0 0.2 FINAL Gio MEDINA [facility] - [place], [address] [place] [id number] 0 04/21 CBC w/ auto diff LY # K/uL 0.4 3.6 1.1 FINAL Gio MEDINA [facility] - [place], [address] [place] [id number] 0 04/21 CBC w/ auto diff MO # K/uL 0.2 1.3 0.4 FINAL Gio MEDINA [facility] - [place], [address] [place] [id number] 0 04/21 CBC w/ auto diff EO # K/uL 0.0 0.6 0.2 FINAL Gio MEDINA [facility] - [place], [address] [place] [id number] 0 04/21 CBC w/ auto diff BA # K/uL 0.0 0.2 0.0 FINAL Gio MEDINA [facility] - [place], [address] [place] [id number] 0 04/21 CBC w/ auto diff NRBC % #/100W BC 0.0 0.2 0.0 FINAL Gio [facility] - [place], [address] [place] [id number] 0 04/21 CBC w/ auto diff RBC M/uL 4.2 5.6 4.00 Low FINAL Gio [facility] - [place], [address] [place] [id number] 0 04/21 CBC w/ auto diff HCT % 39.0 49.0 39.2 FINAL Gio MEDINA [facility] - [place], [address] [place] [id number] 0 04/21 CBC w/ auto diff MCV fL 80.0 104.0 98.0 FINAL Gio MED[facility] - [place], [address] [place] [id number] 0 04/21 CBC w/ auto diff MCH pg 26.0 35.0 32.5 FINAL Gio MEDINA [facility] - [place], [address] [place] [id number] 0 04/21 CBC w/ auto diff MCHC g/dL 30.0 35.0 33.2 FINAL Gio MEDINA [facility] - [place], [address] [place] [id number] 0 04/21 CBC w/ auto diff MPV fL 9.5 13.4 10.6 FINAL Gio MED[facility] - [place], [address] [place] [id number] 0 04/21 CBC w/ auto diff RDW % 11.3 15.6 12.80 FINAL Gio MED[facility] - [place], [address] [place] [id number] 0 04/21 CMP Album in g/dL 3.5 5.0 3.4 Low FINAL Gio Lopez * [place] [facility] [place], [address] [facility] [id number] 0 04/21 CMP Alkal ine phosp hatas e U/L 36.0 125.0 76 FINAL Igo Lopez * [place] [facility] [place], [address] [facility] [id number] 0 04/21 CMP ALT/S GPT U/L 0.0 49.0 22 FINAL Gio Lopez * [place] [facility] [place], [address] [facility] [id number] 0 04/21 CMP AST/S GOT U/L 17.0 59.0 32 FINAL Gio Lopez * [place] [facility] [place], [address] [facility] [id number] 0 04/21 CMP BUN mg/dL 9.0 20.0 21.0 High FINAL Gio Lopez * [place] [facility] [place], [address] [place] [id number] 0 04/21 CMP Calci um mg/dL 8.4 10.2 8.4 FINAL Gio Lopez * [place] [facility], [address] [facility] [address] [id number] 0 04/21 CMP Chlor marissa mmol/L 96.0 107.0 107 FINAL Gio Elizabeth [facility], [address] [facility] [address] [id number] 0 04/21 CMP CO2 mmol/L 22.0 30.0 [...] 96 hour stability window. FINAL Gio Elizabeth [facility], [address] [facility] [address] [id number] 0 04/21 CMP Creat inine mg/dL 0.66 1.25 1.40 High FINAL Gio Elizabeth [facility], [address] [facility] [address] [id number] 0 04/21 CMP GFR estim ate ml/min /1.73m ^2 50.9 Low GFR is calculate d using the CKD-EPI equation. FINAL Gio Elizabeth [place] [facility], [address] [facility] [address] [id number] 0 04/21 CMP Gluco se mg/dL 74.0 100.0 157 High FINAL Gio Elizabeth [facility], [address] [facility] [address] [id number] 0 04/21 CMP Potas sium mmol/L 3.5 5.1 4.6 FINAL Gio Lopez * [place] [facility] [place], [address] [facility] [id number] 0 04/21 CMP Sodiu m mmol/L 137.0 145.0 139 FINAL Gio Lopez * [place] [facility] [place], [address] [facility] [id number] 0 04/21 CMP Bilir ubin, total mg/dL 0.2 1.3 0.4 FINAL Gio Lopez * [place] [facility] [place], [address] [facility] [id number] 0 04/21 CMP Total prote in g/dL 6.3 8.2 6.3 FINAL Gio Lopez * [place] [facility] [place], [address] [facility] [id number] 0 05/11 CBC w/ auto diff WBC K/uL 3.0 8.9 8.4 FINAL Gio Lopez [place] [facility] [place] [facility] , [address] [place] [id number] 0 05/11 CBC w/ auto diff HGB g/dL 12.5 16.6 13.0 FINAL Gio Lopez [place] [facility] [place] [facility] , [address] [place] [id number] 0 05/11 CBC w/ auto diff PLT K/uL 113.0 364.0 156 FINAL Gio Lopez [place] [facility] [place] [facility] , [address] [place] [id number] 0 05/11 CBC w/ auto diff Tatyana # (ANC) K/uL 1.6 6.6 6.2 FINAL Gio Lopez [place] [facility] [place] [facility] , [address] [place] [id number] 0 05/11 CBC w/ auto diff Tatyana % % 43.0 74.0 72.8 FINAL Gio Lopez [place] [facility] [place] [facility] , [address] [place] [id number] 0 05/11 CBC w/ auto diff IG % % 0.0 0.5 0.4 FINAL Gio Lopez [place] [facility] , [address] [place] [id number] 0 05/11 CBC w/ auto diff IG # K/uL 0.0 0.03 0.03 FINAL Gio Lopez [place] [facility] [place] [facility] , [address] [place] [id number] 0 05/11 CBC w/ auto diff LY % % 14.0 41.0 19.2 FINAL Gio Lopez [place] [facility] [place] [facility] , [address] [place] [id number] 0 05/11 CBC w/ auto diff MO % % 6.0 15.0 5.7 Low FINAL Gio Lopez [place] [facility] , [address] [place] [id number] 0 05/11 CBC w/ auto diff EO % % 0.0 7.0 1.7 FINAL Gio Lopez [place] [facility] , [address] [place] [id number] 0 05/11 CBC w/ auto diff BA % % 0.0 2.0 0.2 FINAL Gio Lopez [place] [facility] , [address] [place] [id number] 0 05/11 CBC w/ auto diff LY # K/uL 0.4 3.6 1.6 FINAL Gio Lopez [place] [facility] [place] [facility] , [address] [place] [id number] 0 05/11 CBC w/ auto diff MO # K/uL 0.2 1.3 0.5 FINAL Gio Lopez [place] [facility] [place] [facility] , [address] [place] [id number] 0 05/11 CBC w/ auto diff EO # K/uL 0.0 0.6 0.1 FINAL Gio Lopez [place] [facility] , [address] [place] [id number] 0 05/11 CBC w/ auto diff BA # K/uL 0.0 0.2 0.0 FINAL Gio Lopez [place] [facility] , [address] [place] [id number] 0 05/11 CBC w/ auto diff NRBC % #/100W BC 0.0 0.2 0.0 FINAL Gio Lopez [place] [facility] [place] [facility] , [address] [place] [id number] 0 05/11 CBC w/ auto diff RBC M/uL 4.2 5.6 4.05 Low FINAL Gio Lopez [place] [facility] [place] [facility] , [address] [place] [id number] 0 05/11 CBC w/ auto diff HCT % 39.0 49.0 39.6 FINAL Gio Lopez [place] [facility] [place] [facility] , [address] [place] [id number] 0 05/11 CBC w/ auto diff MCV fL 80.0 104.0 97.8 FINAL Gio Lopez [place] [facility] [place] [facility] , [address] [place] [id number] 0 05/11 CBC w/ auto diff MCH pg 26.0 35.0 32.1 FINAL Gio Lopez [place] [facility] [place] [facility] , [address] [place] [id number] 0 05/11 CBC w/ auto diff MCHC g/dL 30.0 35.0 32.8 FINAL Gio Lopez [place] [facility] [place] [facility] , [address] [place] [id number] 0 05/11 CBC w/ auto diff MPV fL 9.5 13.4 10.1 FINAL Gio Lopez [place] [facility] [place] [facility] , [address] [place] [id number] 0 05/11 CBC w/ auto diff RDW % 11.3 15.6 12.80 FINAL Gio Lopez [place] [facility] , [address] [place] [id number] 0 05/11 TSH w/ refle x to free T4 TSH uIU/mL 0.47 4.68 1.98 FINAL Gio Lopez * [facility] , [address] [facility] [id number] 0 05/11 CMP Album in g/dL 3.5 5.0 3.7 FINAL Gio Lopez * [facility] , [address] [facility] [id number] 0 05/11 CMP Alkal ine phosp hatas e U/L 36.0 125.0 91 FINAL Gio Lopez * [facility] , [address] [facility] [id number] 0 05/11 CMP ALT/S GPT U/L 0.0 49.0 24 FINAL Gio Lopez * [facility] , [address] [facility] [id number] 0 05/11 CMP AST/S GOT U/L 17.0 59.0 35 FINAL Gio Lopez * [facility] , [address] [facility] [id number] 0 05/11 CMP BUN mg/dL 9.0 20.0 23.0 High FINAL Gio Lopez * [facility] , [address] [facility] [id number] 0 05/11 CMP Calci um mg/dL 8.4 10.2 8.6 FINAL Gio Lopez * [facility] , [address] [facility] [address] [facility] [id number] 0 05/11 CMP Chlor marissa mmol/L 96.0 107.0 108 High FINAL Gio oLpez * [facility] , [address] [facility] [address] [facility] [id number] 0 05/11 CMP CO2 mmol/L 22.0 30.0 [...] hour stability window. FINAL Gio Lopez * [facility] , [address] [facility] [address] [facility] [id number] 0 05/11 CMP Creat inine mg/dL 0.66 1.25 1.50 High FINAL Gio Lopez * [facility] , [address] [address] [facility] [id number] 0 05/11 CMP GFR estim ate ml/min /1.73m ^2 46.8 Low GFR is calculate d using the CKD-EPI equation. FINAL Gio Lopez * [facility] , [address] [facility] [address] [id number] 0 05/11 CMP Gluco se mg/dL 74.0 100.0 109 High FINAL Gio Lopez * [facility] , [address] [facility] [facility] [address] [id number] 0 05/11 CMP Potas sium mmol/L 3.5 5.1 4.4 FINAL Gio Lopez * [facility] , [facility] [address] [id number] 0 05/11 CMP Sodiu m mmol/L 137.0 145.0 138 FINAL Gio Lopez * [facility] , [facility] [address] [id number] 0 05/11 CMP Bilir ubin, total mg/dL 0.2 1.3 0.4 FINAL Gio Lopez * [facility] , [facility] [address] [id number] 0 05/11 CMP Total prote in g/dL 6.3 8.2 6.5 FINAL Gio Lopez * [facility] , [facility] [address] [id number] 0 06/01 TSH w/ refle x to free T4 TSH uIU/mL 0.47 4.68 3.67 FINAL Gio Lopez * [facility] , [facility] [address] [id number] 0 06/01 CMP Album in g/dL 3.5 5.0 3.7 FINAL Gio Lopez * [facility] , [facility] [address] [id number] 0 06/01 CMP Alkal ine phosp hatas e U/L 36.0 125.0 89 FINAL Gio Lopez * [facility] , [address] [facility] [facility] [address] [facility] [id number] 0 06/01 CMP ALT/S GPT U/L 0.0 49.0 25 FINAL Gio Lopez * [facility] , [address] [facility] [address] [facility] [id number] 0 06/01 CMP AST/S GOT U/L 17.0 59.0 35 FINAL Gio John * [facility] , [address] [facility] [address] [facility] [id number] 0 06/01 CMP BUN mg/dL 9.0 20.0 21.0 High FINAL Gio Lopez * [facility] , [facility] [address] [facility] [id number] 0 06/01 CMP Calci um mg/dL 8.4 10.2 8.5 FINAL Gio John * [facility] , [address] [facility] [address] [facility] [id number] 0 06/01 CMP Chlor marissa mmol/L 96.0 107.0 108 High FINAL Gio John * [facility] , [address] [facility] [address] [facility] [id number] 0 06/01 CMP CO2 mmol/L 22.0 30.0 [...] hour stability window. FINAL Gio Lopez * [facility] , [address] [facility] [address] [facility] [id number] 0 06/01 CMP Creat inine mg/dL 0.66 1.25 1.40 High FINAL Gio Lopez * [facility] , [address] [facility] [id number] 0 06/01 CMP GFR estim ate ml/min /1.73m ^2 50.8 Low GFR is calculate d using the CKD-EPI equation. FINAL Gio Lopez * [facility] , [address] [facility] [id number] 0 06/01 CMP Gluco se mg/dL 74.0 100.0 123 High FINAL Gio Lopez * [facility] , [address] [facility] [id number] 0 06/01 CMP Potas sium mmol/L 3.5 5.1 4.2 FINAL Gio Lopez * [facility] , [address] [facility] [id number] 0 06/01 CMP Sodiu m mmol/L 137.0 145.0 139 FINAL Gio Lopez * [facility] , [address] [facility] [id number] 0 06/01 CMP Bilir ubin, total mg/dL 0.2 1.3 0.4 FINAL Gio Lopez * [facility] , [address] [facility] [id number] 0 06/01 CMP Total prote in g/dL 6.3 8.2 6.1 Low FINAL Gio Lopez * [facility] , [address] [facility] [id number] 0 06/01 CBC w/ auto diff WBC K/uL 3.0 8.9 5.2 FINAL Gio Lopez [facility] , [address] [facility] [id number] 0 06/01 CBC w/ auto diff HGB g/dL 12.5 16.6 13.8 FINAL Gio Lopez [place] [facility] [place] [facility] , [address] [place] [id number] 0 06/01 CBC w/ auto diff PLT K/uL 113.0 364.0 141 FINAL Gio Lopez [place] [facility] [place] [facility] , [address] [place] [id number] 0 06/01 CBC w/ auto diff Tatyana # (ANC) K/uL 1.6 6.6 3.6 FINAL Gio Lopez [place] [facility] [place] [facility] , [address] [place] [id number] 0 06/01 CBC w/ auto diff Tatyana % % 43.0 74.0 68.3 FINAL Gio Lopez [place] [facility] [place] [facility] , [address] [place] [id number] 0 06/01 CBC w/ auto diff IG % % 0.0 0.5 0.4 FINAL Gio Lopez [place] [facility] [place] [facility] , [address] [place] [id number] 0 06/01 CBC w/ auto diff IG # K/uL 0.0 0.03 0.02 FINAL Gio Lopez [place] [facility] [place] [facility] , [address] [place] [id number] 0 06/01 CBC w/ auto diff LY % % 14.0 41.0 20.9 FINAL Gio Lopez [place] [facility] [place] [facility] , [address] [place] [id number] 0 06/01 CBC w/ auto diff MO % % 6.0 15.0 7.3 FINAL Gio Lopez [place] [facility] [place] [facility] , [address] [place] [id number] 0 06/01 CBC w/ auto diff EO % % 0.0 7.0 2.7 FINAL Gio Lopez [place] [facility] [place] [facility] , [address] [place] [id number] 0 06/01 CBC w/ auto diff BA % % 0.0 2.0 0.4 FINAL Gio Lopez [place] [facility] [place] [facility] , [address] [place] [id number] 0 06/01 CBC w/ auto diff LY # K/uL 0.4 3.6 1.1 FINAL Gio Lopez [place] [facility] [place] [facility] , [address] [place] [id number] 0 06/01 CBC w/ auto diff MO # K/uL 0.2 1.3 0.4 FINAL Gio Lopez [place] [facility] [place] [facility] , [address] [place] [id number] 0 06/01 CBC w/ auto diff EO # K/uL 0.0 0.6 0.1 FINAL Gio Lopez [place] [facility] [place] [facility] , [address] [place] [id number] 0 06/01 CBC w/ auto diff BA # K/uL 0.0 0.2 0.0 FINAL Gio Lopez [place] [facility] [place] [facility] , [address] [place] [id number] 0 06/01 CBC w/ auto diff NRBC % #/100W BC 0.0 0.2 0.0 FINAL Gio Lopez [place] [facility] [place] [facility] , [address] [place] [id number] 0 06/01 CBC w/ auto diff RBC M/uL 4.2 5.6 4.22 FINAL Gio Lopez [place] [facility] [place] [facility] , [address] [place] [id number] 0 06/01 CBC w/ auto diff HCT % 39.0 49.0 41.1 FINAL Gio Lopez [place] [facility] [place] [facility] , [address] [place] [id number] 0 06/01 CBC w/ auto diff MCV fL 80.0 104.0 97.4 FINAL Gio Lopez [place] [facility] [place] [facility] , [address] [place] [id number] 0 06/01 CBC w/ auto diff MCH pg 26.0 35.0 32.7 FINAL Gio Lopez [place] [facility] [place] [facility] , [address] [place] [id number] 0 06/01 CBC w/ auto diff MCHC g/dL 30.0 35.0 33.6 FINAL Gio Lopez [place] [facility] [place] [facility] , [address] [place] [id number] 0 06/01 CBC w/ auto diff MPV fL 9.5 13.4 9.9 FINAL Gio Lopez [place] [facility] [place] [facility] , [address] [place] [id number] 0 06/01 CBC w/ auto diff RDW % 11.3 15.6 13.20 FINAL Gio Lopez [place] [facility] [place] [facility] , [address] [place] [id number] 0 06/08 [facility] other lab See band attacher d 08/24 CMP Album in g/dL 3.5 5.0 3.4 Low FINAL Gio Lopez * [place] [facility] [place] [facility] , [address] [place] [id number] 0 08/24 CMP Alkal ine phosp hatas e U/L 36.0 125.0 110 FINAL Gio Lopez * [facility] , [address] [facility] [id number] 0 08/24 CMP ALT/S GPT U/L 0.0 49.0 27 FINAL Gio Lopez * [facility] , [address] [facility] [id number] 0 08/24 CMP AST/S GOT U/L 17.0 59.0 38 FINAL Gio Lopez * [facility] , [address] [facility] [address] [facility] [id number] 0 08/24 CMP BUN mg/dL 9.0 20.0 29.0 High FINAL Gio Lopez * [facility] , [address] [facility] [address] [facility] [id number] 0 08/24 CMP Calci um mg/dL 8.4 10.2 8.2 Low FINAL Gio Lopez * [facility] , [address] [facility] [address] [facility] [id number] 0 08/24 CMP Chlor marissa mmol/L 96.0 107.0 104 FINAL Gio Lopez * [facility] , [address] [facility] [id number] 0 08/24 CMP CO2 mmol/L 22.0 30.0 [...] hour stability window. FINAL Gio Lopez * [facility] , [address] [facility] [id number] 0 08/24 CMP Creat inine mg/dL 0.66 1.25 1.60 High FINAL Gio Lopez * [facility] , [address] [facility] [address] [id number] 0 08/24 CMP GFR estim ate ml/min /1.73m ^2 43.2 Low GFR is calculate d using the CKD-EPI equation. FINAL Gio Lopez * [facility] , [address] [facility] [address] [id number] 0 08/24 CMP Gluco se mg/dL 74.0 100.0 175 High FINAL Gio Lopez * [facility] , [facility] [address] [id number] 0 08/24 CMP Potas sium mmol/L 3.5 5.1 3.8 FINAL Gio Lopez * [facility] , [facility] [address] [id number] 0 08/24 CMP Sodiu m mmol/L 137.0 145.0 137 FINAL Gio Lopez * [facility] , [facility] [address] [place] [address] [id number] 0 08/24 CMP Bilir ubin, total mg/dL 0.2 1.3 0.6 FINAL Gio Lopez * [facility] , [address] [id number] 0 08/24 CMP Total prote in g/dL 6.3 8.2 5.9 Low FINAL Gio Lopez * [facility] , [address] [facility] [address] [id number] 0 08/24 TSH w/ refle x to free T4 TSH uIU/mL 0.47 4.68 0.82 FINAL Gio John * [facility] , [facility] [address] [id number] 0 08/24 CBC w/ auto diff WBC K/uL 3.0 8.9 5.5 FINAL Gio Lopez [place] [facility] [place] [facility] , [address] [place] [id number] 0 08/24 CBC w/ auto diff HGB g/dL 12.5 16.6 13.6 FINAL Gio Lopze [place] [facility] [place] [facility] , [address] [place] [id number] 0 08/24 CBC w/ auto diff PLT K/uL 113.0 364.0 158 FINAL Gio Lopez [place] [facility] [place] [facility] , [address] [place] [id number] 0 08/24 CBC w/ auto diff Tatyana # (ANC) K/uL 1.6 6.6 3.8 FINAL Gio Lopez [place] [facility] [place] [facility] , [address] [place] [id number] 0 08/24 CBC w/ auto diff Tatyana % % 43.0 74.0 69.2 FINAL Gio Lopez [place] [facility] [place] [facility] , [address] [place] [id number] 0 08/24 CBC w/ auto diff IG % % 0.0 0.5 0.4 FINAL Gio Lopez [place] [facility] [place] [facility] , [address] [place] [id number] 0 08/24 CBC w/ auto diff IG # K/uL 0.0 0.03 0.02 FINAL Gio Lopez [place] [facility] [place] [facility] , [address] [place] [id number] 0 08/24 CBC w/ auto diff LY % % 14.0 41.0 20.6 FINAL Gio Lopez [place] [facility] [place] [facility] , [address] [place] [id number] 0 08/24 CBC w/ auto diff MO % % 6.0 15.0 7.9 FINAL Gio Lopez [place] [facility] [place] [facility] , [address] [place] [id number] 0 08/24 CBC w/ auto diff EO % % 0.0 7.0 1.7 FINAL Gio Lopez [place] [facility] [place] [facility] , [address] [place] [id number] 0 08/24 CBC w/ auto diff BA % % 0.0 2.0 0.2 FINAL Gio Lopez [place] [facility] [place] [facility] , [address] [place] [id number] 0 08/24 CBC w/ auto diff LY # K/uL 0.4 3.6 1.1 FINAL Gio Lopez [place] [facility] [place] [facility] , [address] [place] [id number] 0 08/24 CBC w/ auto diff MO # K/uL 0.2 1.3 0.4 FINAL Gio Lopez [place] [facility] [place] [facility] , [address] [place] [id number] 0 08/24 CBC w/ auto diff EO # K/uL 0.0 0.6 0.1 FINAL Gio Lopez [place] [facility] [place] [facility] , [address] [place] [id number] 0 08/24 CBC w/ auto diff BA # K/uL 0.0 0.2 0.0 FINAL Gio Lopez [place] [facility] [place] [facility] , [address] [place] [id number] 0 08/24 CBC w/ auto diff NRBC % #/100W BC 0.0 0.2 0.0 FINAL Gio Lopez [place] [facility] [place] [facility] , [address] [place] [id number] 0 08/24 CBC w/ auto diff RBC M/uL 4.2 5.6 4.08 Low FINAL Gio Lopez [place] [facility] [place] [facility] , [address] [facility] [address] [place] [id number] 0 08/24 CBC w/ auto diff HCT % 39.0 49.0 41.1 FINAL Gio Lopez [place] [facility] [place] [facility] , [address] [place] [id number] 0 08/24 CBC w/ auto diff MCV fL 80.0 104.0 100.7 FINAL Gio Lopez [place] [facility] [place] [facility] , [address] [facility] [address] [place] [id number] 0 08/24 CBC w/ auto diff MCH pg 26.0 35.0 33.3 FINAL Gio Lopez [place] [facility] [place] [facility] , [address] [place] [id number] 0 08/24 CBC w/ auto diff MCHC g/dL 30.0 35.0 33.1 FINAL Gio Lopez [place] [facility] [place] [facility] , [address] [place] [id number] 0 08/24 CBC w/ auto diff MPV fL 9.5 13.4 10.7 FINAL Gio Lopez [place] [facility] [place] [facility] , [address] [place] [id number] 0 08/24 CBC w/ auto diff RDW % 11.3 15.6 13.00 FINAL Gio Lopez [place] [facility] [place] [facility] , [address] [facility] [id number] 0 09/14 CMP GFR estim ate ml/min /1.73m ^2 40.2 Low GFR is calculate d using the CKD-EPI equation. FINAL Gio Lopez * [facility] , [address] [facility] [id number] 0 09/14 CMP Gluco se mg/dL 74.0 100.0 106 High FINAL Gio Lopez * [facility] , [address] [facility] [id number] 0 09/14 CMP Potas sium mmol/L 3.5 5.1 4.7 FINAL Gio Lopez * [facility] , [address] [facility] [id number] 0 09/14 CMP Sodiu m mmol/L 137.0 145.0 135 Low FINAL Gio Lopez * [facility] , [address] [facility] [id number] 0 09/14 CMP Bilir ubin, total mg/dL 0.2 1.3 0.3 FINAL Gio Lopez * [facility] , [address] [facility] [id number] 0 09/14 CMP Total prote in g/dL 6.3 8.2 5.6 Low FINAL Gio Lopez * [facility] , [address] [facility] [id number] 0 09/14 CMP Album in g/dL 3.5 5.0 3.2 Low FINAL Gio Lopez * [facility] , [address] [facility] [id number] 0 09/14 CMP Alkal ine phosp hatas e U/L 36.0 125.0 110 FINAL Gio Lopez * [facility] , [address] [facility] [id number] 0 09/14 CMP ALT/S GPT U/L 0.0 49.0 36 FINAL Gio Lopez * [facility] , [address] [facility] [id number] 0 09/14 CMP AST/S GOT U/L 17.0 59.0 55 FINAL Gio Lopez * [facility] , [address] [facility] [id number] 0 09/14 CMP BUN mg/dL 9.0 20.0 27.0 High FINAL Gio Lopez * [facility] , [address] [facility] [id number] 0 09/14 CMP Calci um mg/dL 8.4 10.2 7.7 Low FINAL Gio Lopez * [facility] , [address] [facility] [id number] 0 09/14 CMP Chlor marissa mmol/L 96.0 107.0 104 FINAL Gio Lopez * [facility] , [address] [facility] [id number] 0 09/14 CMP CO2 mmol/L 22.0 30.0 [...] hour stability window. FINAL Gio Lopez * [facility] , [address] [facility] [id number] 0 09/14 CMP Creat inine mg/dL 0.66 1.25 1.70 High FINAL Gio Lopez * [place] [facility] [place] [facility] , [address] [place] [id number] 0 09/14 CBC w/ auto diff WBC K/uL 3.0 8.9 6.8 FINAL Gio Lopez [place] [facility] [place] [facility] , [address] [place] [id number] 0 09/14 CBC w/ auto diff HGB g/dL 12.5 16.6 13.5 FINAL Gio Lopez [place] [facility] [place] [facility] , [address] [place] [id number] 0 09/14 CBC w/ auto diff PLT K/uL 113.0 364.0 148 FINAL Gio Lopez [place] [facility] [place] [facility] , [address] [place] [id number] 0 09/14 CBC w/ auto diff Tatyana # (ANC) K/uL 1.6 6.6 4.3 FINAL Gio Loepz [place] [facility] [place] [facility] , [address] [place] [id number] 0 09/14 CBC w/ auto diff Tatyana % % 43.0 74.0 62.9 FINAL Gio Lopez [place] [facility] [place] [facility] , [address] [place] [id number] 0 09/14 CBC w/ auto diff IG % % 0.0 0.5 0.1 FINAL Gio Lopez [place] [facility] [place] [facility] , [address] [place] [id number] 0 09/14 CBC w/ auto diff IG # K/uL 0.0 0.03 0.01 FINAL Gio Lopez [place] [facility] [place] [facility] , [address] [place] [id number] 0 09/14 CBC w/ auto diff LY % % 14.0 41.0 30.0 FINAL Gio Lopez [place] [facility] [place] [facility] , [address] [place] [id number] 0 09/14 CBC w/ auto diff MO % % 6.0 15.0 5.4 Low FINAL Gio Lopez [place] [facility] [place] [facility] , [address] [place] [id number] 0 09/14 CBC w/ auto diff EO % % 0.0 7.0 1.3 FINAL Gio Lopez [place] [facility] [place] [facility] , [address] [place] [id number] 0 09/14 CBC w/ auto diff BA % % 0.0 2.0 0.3 FINAL Gio Lopez [place] [facility] [place] [facility] , [address] [place] [id number] 0 09/14 CBC w/ auto diff LY # K/uL 0.4 3.6 2.0 FINAL Gio Lopez [place] [facility] [place] [facility] , [address] [place] [id number] 0 09/14 CBC w/ auto diff MO # K/uL 0.2 1.3 0.4 FINAL Gio Lopez [place] [facility] [place] [facility] , [address] [place] [id number] 0 09/14 CBC w/ auto diff EO # K/uL 0.0 0.6 0.1 FINAL Gio Lopez [place] [facility] [place] [facility] , [address] [place] [id number] 0 09/14 CBC w/ auto diff BA # K/uL 0.0 0.2 0.0 FINAL Gio Lopez [place] [facility] [place] [facility] , [address] [place] [id number] 0 09/14 CBC w/ auto diff NRBC % #/100W BC 0.0 0.2 0.0 FINAL Gio Lopez [place] [facility] [place] [facility] , [address] [place] [id number] 0 09/14 CBC w/ auto diff RBC M/uL 4.2 5.6 4.08 Low FINAL Gio Lopez [place] [facility] [place] [facility] , [address] [place] [id number] 0 09/14 CBC w/ auto diff HCT % 39.0 49.0 40.3 FINAL Gio Lopez [place] [facility] [place] [facility] , [address] [place] [id number] 0 09/14 CBC w/ auto diff MCV fL 80.0 104.0 98.8 FINAL Gio Lopez [place] [facility] [place] [facility] , [address] [place] [id number] 0 09/14 CBC w/ auto diff MCH pg 26.0 35.0 33.1 FINAL Gio Lopez [place] [facility] [place] [facility] , [address] [place] [id number] 0 09/14 CBC w/ auto diff MCHC g/dL 30.0 35.0 33.5 FINAL Gio Lopez [place] [facility] [place] [facility] , [address] [place] [id number] 0 09/14 CBC w/ auto diff MPV fL 9.5 13.4 10.5 FINAL Gio Lopez [place] [facility] [place] [facility] , [address] [place] [id number] 0 09/14 CBC w/ auto diff RDW % 11.3 15.6 13.30 [facility] [address] [facility] [id number] 0 09/14 TSH w/ refle x to free T4 TSH uIU/mL 0.47 4.68 0.68 FINAL Gio Lopez * [facility] , [address] [facility] [id number] 0 09/15 Prote in (dips tick) panel Prote in (ua) 3+ Abnor mal FINAL [facility] , [address] [facility] [id number] 0 09/15 Prote in/cr eatin ine ratio , rando m urine panel CREAT ININE , RANDO M URINE mg/dL 20.0 320.0 52 FINAL Gio VALDES, [facility] [address] [place] [id number] 4 09/15 Prote in/cr eatin ine ratio , rando m urine panel PROTE IN/CR EATIN INE RATIO mg/gcr eat 25.0 148.0 6173 High FINAL Gio VALDES [facility] [address] [place] [id number] 4 09/15 Prote in/cr eatin ine ratio , rando m urine panel PROTE IN/CR EATIN INE RATIO mg/mgc reat 0.025 0.148 6.173 High FINAL Gio VALDES, [facility] [address] [place] [id number] 4 09/15 Prote in/cr eatin ine ratio , rando m urine panel PROTE IN, TOTAL , RANDO M UR mg/dL 5.0 25.0 321 High Verified by repeat analysis. FINAL Gio VALDES, [facility] [address] [place] [id number] 4 10/13 CBC w/ auto diff WBC K/uL 3.0 8.9 4.2 FINAL Gio Lopez [place] [facility] [place] [facility] , [address] [place] [id number] 0 10/13 CBC w/ auto diff HGB g/dL 12.5 16.6 12.3 Low FINAL Gio Lopez [place] [facility] [place] [facility] , [address] [place] [id number] 0 10/13 CBC w/ auto diff PLT K/uL 113.0 364.0 162 FINAL Gio Lopez [place] [facility] [place] [facility] , [address] [place] [id number] 0 10/13 CBC w/ auto diff Tatyana # (ANC) K/uL 1.6 6.6 2.0 FINAL Gio Lopez [place] [facility] [place] [facility] , [address] [place] [id number] 0 10/13 CBC w/ auto diff Tatyana % % 43.0 74.0 46.9 FINAL Gio Lopez [place] [facility] [place] [facility] , [address] [place] [id number] 0 10/13 CBC w/ auto diff IG % % 0.0 0.5 0.2 FINAL Gio Lopez [place] [facility] [place] [facility] , [address] [place] [id number] 0 10/13 CBC w/ auto diff IG # K/uL 0.0 0.03 0.01 FINAL Gio Lopez [place] [facility] [place] [facility] , [address] [place] [id number] 0 10/13 CBC w/ auto diff LY % % 14.0 41.0 43.1 High FINAL Gio Lopez [place] [facility] [place] [facility] , [address] [place] [id number] 0 10/13 CBC w/ auto diff MO % % 6.0 15.0 6.9 FINAL Gio Lopez [place] [facility] [place] [facility] , [address] [place] [id number] 0 10/13 CBC w/ auto diff EO % % 0.0 7.0 2.4 FINAL Gio Lopez [place] [facility] [place] [facility] , [address] [place] [id number] 0 10/13 CBC w/ auto diff BA % % 0.0 2.0 0.5 FINAL Gio Lopez [place] [facility] [place] [facility] , [address] [place] [id number] 0 10/13 CBC w/ auto diff LY # K/uL 0.4 3.6 1.8 FINAL Gio Lopez [place] [facility] [place] [facility] , [address] [place] [id number] 0 10/13 CBC w/ auto diff MO # K/uL 0.2 1.3 0.3 FINAL Gio Lopez [place] [facility] , [address] [place] [id number] 0 10/13 CBC w/ auto diff EO # K/uL 0.0 0.6 0.1 FINAL [facility] [place] [facility] , [address] [place] [id number] 0 10/13 CBC w/ auto diff BA # K/uL 0.0 0.2 0.0 FINAL [facility] [place] [facility] , [address] [place] [id number] 0 10/13 CBC w/ auto diff NRBC % #/100W BC 0.0 0.2 0.0 FINAL [facility] [place] [facility] , [address] [place] [id number] 0 10/13 CBC w/ auto diff RBC M/uL 4.2 5.6 3.70 Low FINAL Gio Lopez [place] [facility] [place] [facility] , [address] [place] [id number] 0 10/13 CBC w/ auto diff HCT % 39.0 49.0 36.8 Low FINAL Gio Lopez [place] [facility] [place] [facility] , [address] [place] [id number] 0 10/13 CBC w/ auto diff MCV fL 80.0 104.0 99.5 FINAL Gio Lopez [place] [facility] [place] [facility] , [address] [place] [id number] 0 10/13 CBC w/ auto diff MCH pg 26.0 35.0 33.2 FINAL Gio Lopez [place] [facility] [place] [facility] , [address] [place] [id number] 0 10/13 CBC w/ auto diff MCHC g/dL 30.0 35.0 33.4 FINAL Gio Lopez [place] [facility] [place] [facility] , [address] [place] [id number] 0 10/13 CBC w/ auto diff MPV fL 9.5 13.4 10.4 FINAL Gio Lopez [place] [facility] [place] [facility] , [address] [place] [id number] 0 10/13 CBC w/ auto diff RDW % 11.3 15.6 15.20 FINAL Gio Lopez [facility] , [address] [facility] [id number] 0 10/13 TSH w/ refle x to free T4 TSH uIU/mL 0.47 4.68 1.65 FINAL Gio Lopez * [facility] , [address] [facility] [id number] 0 10/13 CMP Album in g/dL 3.5 5.0 2.9 Low FINAL Gio Lopez * [facility] , [address] [facility] [id number] 0 10/13 CMP Alkal ine phosp hatas e U/L 36.0 125.0 106 FINAL Gio Lopez * [facility] , [address] [facility] [id number] 0 10/13 CMP ALT/S GPT U/L 0.0 49.0 32 FINAL Gio Lopez * [facility] , [address] [facility] [id number] 0 10/13 CMP AST/S GOT U/L 17.0 59.0 48 FINAL Gio Lopez * [facility] , [address] [facility] [id number] 0 10/13 CMP BUN mg/dL 9.0 20.0 20.0 FINAL Gio Lopez * [facility] , [address] [facility] [id number] 0 10/13 CMP Calci um mg/dL 8.4 10.2 7.4 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 FINAL Gio Lopez * [facility] , [address] [facility] [id number] 0 10/13 CMP Creat inine mg/dL 0.66 1.25 1.50 High FINAL Gio Lopez * [facility] , [address] [facility] [id number] 0 10/13 CMP GFR estim ate ml/min /1.73m ^2 46.7 Low GFR is calculate d using the CKD-EPI equation. FINAL Gio Lopez * [facility] , [address] [facility] [id number] 0 10/13 CMP Gluco se mg/dL 74.0 100.0 110 High FINAL Gio Lopez * [facility] , [address] [facility] [id number] 0 10/13 CMP Potas sium mmol/L 3.5 5.1 4.4 FINAL Gio Lopez * [facility] , [address] [id number] 0 10/13 CMP Sodiu m mmol/L 137.0 145.0 136 Low FINAL Gio Lopez * [facility] , [address] [facility] [id number] 0 10/13 CMP Bilir ubin, total mg/dL 0.2 1.3 0.4 FINAL Gio Lopez * [facility] , [address] [facility] [id number] 0 10/13 CMP Total prote in g/dL 6.3 8.2 5.4 Low FINAL Gio Lopez * [facility] , [address] [facility] [id number] 0 10/13 Prote in/cr eatin ine ratio , rando m urine panel CREAT ININE , RANDO M URINE mg/dL 20.0 320.0 45 FINAL Gio VALDES, [facility] [address] [place] [id number] 4 10/13 Prote in/cr eatin ine ratio , rando m urine panel PROTE IN/CR EATIN INE RATIO mg/gcr eat 25.0 148.0 4556 High FINAL Gio VALDES, [facility] [address] [place] [id number] 4 10/13 Prote in/cr eatin ine ratio , rando m urine panel PROTE IN/CR EATIN INE RATIO mg/mgc reat 0.025 0.148 4.556 High FINAL Gio VALDES, [facility] [address] [place] [id number] 4 10/13 Prote in/cr eatin ine ratio , rando m urine panel PROTE IN, TOTAL , RANDO M UR mg/dL 5.0 25.0 205 High Verified by repeat analysis. FINAL Gio VALDES, [facility] [address] [place] [id number] 4 11/20 TSH w/ refle x to free T4 TSH uIU/mL 0.47 4.68 1.59 FINAL Gio Lopez * [facility] , [address] [facility] [id number] 0 11/20 CMP Album in g/dL 3.5 5.0 2.7 Low FINAL Gio Lopez * [facility] , [address] [facility] [id number] 0 11/20 CMP Alkal ine phosp hatas e U/L 36.0 125.0 120 FINAL Gio Lopez * [facility] , [address] [facility] [id number] 0 11/20 CMP ALT/S GPT U/L 0.0 49.0 33 FINAL Gio Lopez * [facility] , [address] [facility] [id number] 0 11/20 CMP AST/S GOT U/L 17.0 59.0 45 FINAL Gio Lopez * [facility] , [address] [facility] [id number] 0 11/20 CMP BUN mg/dL 9.0 20.0 26.0 High FINAL Gio Lopez * [facility] , [address] [facility] [id number] 0 11/20 CMP Calci um mg/dL 8.4 10.2 7.4 Criti ninoska Low FINAL Gio Lopez * [facility] , [address] [facility] [id number] 0 11/20 CMP Chlor marissa mmol/L 96.0 107.0 107 FINAL Gio Lopez * [facility] , [address] [facility] [address] [facility] [id number] 0 11/20 CMP CO2 mmol/L 22.0 30.0 [...] hour stability window. FINAL Gio Lopez * [facility] , [facility] [address] [id number] 0 11/20 CMP Creat inine mg/dL 0.66 1.25 1.60 High FINAL Gio Lopez * [facility] , [facility] [address] [id number] 0 11/20 CMP GFR estim ate ml/min /1.73m ^2 43.2 Low GFR is calculate d using the CKD-EPI equation. FINAL Gio Elizabeth [facility] , [facility] [address] [id number] 0 11/20 CMP Gluco se mg/dL 74.0 100.0 99 FINAL Gio Elizabeth [facility] , [facility] [address] [facility] [id number] 0 11/20 CMP Potas sium mmol/L 3.5 5.1 4.3 FINAL Gio Elizabeth [facility] , [facility] [address] [facility] [id number] 0 11/20 CMP Sodiu m mmol/L 137.0 145.0 137 FINAL Gio Lopez * [facility] , [facility] [address] [id number] 0 11/20 CMP Bilir ubin, total mg/dL 0.2 1.3 0.5 FINAL Gio Lopez * [facility] , [facility] [address] [id number] 0 11/20 CMP Total prote in g/dL 6.3 8.2 5.1 Low FINAL Gio Lopez * [place] [facility] [place] [facility] , [address] [facility] [facility] [address] [place] [id number] 0 11/20 CBC w/ auto diff WBC K/uL 3.0 8.9 6.0 FINAL Gio Lopez [place] [facility] [place] [facility] , [address] [place] [id number] 0 11/20 CBC w/ auto diff HGB g/dL 12.5 16.6 11.3 Low FINAL Gio Lopez [place] [facility] [place] [facility] , [address] [place] [id number] 0 11/20 CBC w/ auto diff PLT K/uL 113.0 364.0 139 FINAL Gio Lopez [place] [facility] [place] [facility] , [address] [place] [id number] 0 11/20 CBC w/ auto diff Tatyana # (ANC) K/uL 1.6 6.6 4.0 FINAL Gio Lopez [place] [facility] [place] [facility] , [address] [place] [id number] 0 11/20 CBC w/ auto diff Tatyana % % 43.0 74.0 67.3 FINAL Gio Lopez [place] [facility] [place] [facility] , [address] [place] [id number] 0 11/20 CBC w/ auto diff IG % % 0.0 0.5 0.2 FINAL Gio Lopez [place] [facility] [place] [facility] , [address] [place] [id number] 0 11/20 CBC w/ auto diff IG # K/uL 0.0 0.03 0.01 FINAL Gio Lopez [place] [facility] [place] [facility] , [address] [place] [id number] 0 11/20 CBC w/ auto diff LY % % 14.0 41.0 23.4 FINAL Gio Lopez [place] [facility] [place] [facility] , [address] [place] [id number] 0 11/20 CBC w/ auto diff MO % % 6.0 15.0 7.6 FINAL Gio Lopez [place] [facility] [place] [facility] , [address] [place] [id number] 0 11/20 CBC w/ auto diff EO % % 0.0 7.0 1.3 FINAL Gio Lopez [place] [facility] [place] [facility] , [address] [place] [id number] 0 11/20 CBC w/ auto diff BA % % 0.0 2.0 0.2 FINAL Gio Lopez [place] [facility] [place] [facility] , [address] [place] [id number] 0 11/20 CBC w/ auto diff LY # K/uL 0.4 3.6 1.4 FINAL Gio Lopez [place] [facility] [place] [facility] , [address] [place] [id number] 0 11/20 CBC w/ auto diff MO # K/uL 0.2 1.3 0.5 FINAL Gio Lopez [place] [facility] [place] [facility] , [address] [place] [id number] 0 11/20 CBC w/ auto diff EO # K/uL 0.0 0.6 0.1 FINAL Gio Lopez [place] [facility] [place] [facility] , [address] [place] [id number] 0 11/20 CBC w/ auto diff BA # K/uL 0.0 0.2 0.0 FINAL Gio Lopez [place] [facility] [place] [facility] , [address] [place] [id number] 0 11/20 CBC w/ auto diff NRBC % #/100W BC 0.0 0.2 0.0 FINAL Gio Lopez [place] [facility] [place] [facility] , [address] [place] [id number] 0 11/20 CBC w/ auto diff RBC M/uL 4.2 5.6 3.24 Low FINAL Gio Lopez [place] [facility] [place] [facility] , [address] [place] [id number] 0 11/20 CBC w/ auto diff HCT % 39.0 49.0 33.6 Low FINAL Gio Lopez [place] [facility] [place] [facility] , [address] [place] [id number] 0 11/20 CBC w/ auto diff MCV fL 80.0 104.0 103.7 FINAL Gio Lopez [place] [facility] [place] [facility] , [address] [place] [id number] 0 11/20 CBC w/ auto diff MCH pg 26.0 35.0 34.9 FINAL Gio Lopez [place] [facility] [place] [facility] , [address] [place] [id number] 0 11/20 CBC w/ auto diff MCHC g/dL 30.0 35.0 33.6 FINAL Gio Lopez [place] [facility] [place] [facility] , [address] [place] [id number] 0 11/20 CBC w/ auto diff MPV fL 9.5 13.4 10.2 FINAL Gio Lopez [place] [facility] [place] [facility] , [address] [place] [id number] 0 11/20 CBC w/ auto diff RDW % 11.3 15.6 16.60 High FINAL Gio Lopez [facility] , [address] [facility] [id number] 0 11/20 Prote in/cr eatin ine ratio , rando m urine panel CREAT ININE , RANDO M URINE mg/dL 20.0 320.0 41 FINAL Gio Lopez QUEST, [facility] [address] [place] [id number] 4 11/20 Prote in/cr eatin ine ratio , rando m urine panel PROTE IN/CR EATIN INE RATIO mg/gcr eat 25.0 148.0 3634 High FINAL Gio VALDES, [facility] [address] [place] [id number] 4 11/20 Prote in/cr eatin ine ratio , rando m urine panel PROTE IN/CR EATIN INE RATIO mg/mgc reat 0.025 0.148 3.634 High FINAL Gio VALDES, [facility] [address] [place] [id number] 4 11/20 Prote in/cr eatin ine ratio , rando m urine panel PROTE IN, TOTAL , RANDO M UR mg/dL 5.0 25.0 149 High FINAL Gio VALDES, [facility] [address] [place] [id number] 4 12/20 CMP Album in g/dL 3.5 5.0 2.9 Low FINAL Gio Lopez * [facility] , [address] [facility] [id number] 0 12/20 CMP Alkal ine phosp hatas e U/L 36.0 125.0 117 FINAL Gio Lopez * [facility] , [address] [facility] [id number] 0 12/20 CMP ALT/S GPT U/L 0.0 49.0 33 FINAL Gio Lopez * [facility] , [address] [facility] [id number] 0 12/20 CMP AST/S GOT U/L 17.0 59.0 45 FINAL Gio Lopez * [facility] , [address] [facility] [address] [facility] [id number] 0 12/20 CMP BUN mg/dL 9.0 20.0 33.0 High FINAL Gio Lopez * [facility] , [facility] [address] [id number] 0 12/20 CMP Calci um mg/dL 8.4 10.2 7.7 Low FINAL Gio Lopez * [facility] , [address] [facility] [address] [id number] 0 12/20 CMP Chlor marissa mmol/L 96.0 107.0 105 FINAL Gio Lopez * [facility] , [address] [facility] [address] [id number] 0 12/20 CMP CO2 mmol/L 22.0 30.0 [...] hour stability window. FINAL Gio Lopez * [facility] , [address] [facility] [address] [id number] 0 12/20 CMP Creat inine mg/dL 0.66 1.25 1.90 High FINAL Gio Lopez * [facility] , [facility] [address] [id number] 0 12/20 CMP GFR estim ate ml/min /1.73m ^2 35.1 Low GFR is calculate d using the CKD-EPI equation. FINAL Gio Lopez * [facility] , [address] [facility] [id number] 0 12/20 CMP Gluco se mg/dL 74.0 100.0 130 High FINAL Gio Lopez * [facility] , [address] [facility] [id number] 0 12/20 CMP Potas sium mmol/L 3.5 5.1 4.6 FINAL Gio Lopez * [facility] , [address] [facility] [id number] 0 12/20 CMP Sodiu m mmol/L 137.0 145.0 132 Low FINAL Gio Lopez * [facility] , [address] [facility] [id number] 0 12/20 CMP Bilir ubin, total mg/dL 0.2 1.3 0.2 FINAL Gio Lopez * [facility] , [address] [facility] [id number] 0 12/20 CMP Total prote in g/dL 6.3 8.2 5.5 Low FINAL Gio Lopez * [facility] , [address] [facility] [id number] 0 12/20 CBC w/ auto diff WBC K/uL 3.0 8.9 3.8 FINAL Gio Lopez [facility] , [address] [facility] [address] [facility] [id number] 0 12/20 CBC w/ auto diff HGB g/dL 12.5 16.6 11.5 Low FINAL Gio Lopez [place] [facility] [place] [facility] , [address] [place] [id number] 0 12/20 CBC w/ auto diff PLT K/uL 113.0 364.0 176 FINAL Gio Lopez [place] [facility] [place] [facility] , [address] [place] [id number] 0 12/20 CBC w/ auto diff Tatyana # (ANC) K/uL 1.6 6.6 2.1 FINAL Gio Lopez [place] [facility] [place] [facility] , [address] [place] [id number] 0 12/20 CBC w/ auto diff Tatyana % % 43.0 74.0 56.1 FINAL Gio Lopez [place] [facility] [place] [facility] , [address] [place] [id number] 0 12/20 CBC w/ auto diff IG % % 0.0 0.5 0.3 FINAL Gio Lopez [place] [facility] [place] [facility] , [address] [place] [id number] 0 12/20 CBC w/ auto diff IG # K/uL 0.0 0.03 0.01 FINAL Gio Lopez [place] [facility] [place] [facility] , [address] [place] [id number] 0 12/20 CBC w/ auto diff LY % % 14.0 41.0 33.3 FINAL Gio Lopez [place] [facility] [place] [facility] , [address] [place] [id number] 0 12/20 CBC w/ auto diff MO % % 6.0 15.0 8.7 FINAL Gio Lopez [place] [facility] [place] [facility] , [address] [place] [id number] 0 12/20 CBC w/ auto diff EO % % 0.0 7.0 1.3 FINAL Gio Lopez [place] [facility] [place] [facility] , [address] [place] [id number] 0 12/20 CBC w/ auto diff BA % % 0.0 2.0 0.3 FINAL Gio Lopez [place] [facility] [place] [facility] , [address] [place] [id number] 0 12/20 CBC w/ auto diff LY # K/uL 0.4 3.6 1.3 FINAL Gio Lopez [place] [facility] [place] [facility] , [address] [place] [id number] 0 12/20 CBC w/ auto diff MO # K/uL 0.2 1.3 0.3 FINAL Gio Lopez [place] [facility] [place] [facility] , [address] [place] [id number] 0 12/20 CBC w/ auto diff EO # K/uL 0.0 0.6 0.1 FINAL Gio Lopez [place] [facility] [place] [facility] , [address] [place] [id number] 0 12/20 CBC w/ auto diff BA # K/uL 0.0 0.2 0.0 FINAL Gio Lopez [place] [facility] [place] [facility] , [address] [place] [id number] 0 12/20 CBC w/ auto diff NRBC % #/100W BC 0.0 0.2 0.0 FINAL Gio Lopez [place] [facility] [place] [facility] , [address] [place] [id number] 0 12/20 CBC w/ auto diff RBC M/uL 4.2 5.6 3.22 Low FINAL Gio Lopez [place] [facility] [place] [facility] , [address] [place] [id number] 0 12/20 CBC w/ auto diff HCT % 39.0 49.0 34.0 Low FINAL Gio Lopez [place] [facility] [place] [facility] , [address] [place] [id number] 0 12/20 CBC w/ auto diff MCV fL 80.0 104.0 105.6 High FINAL Gio Lopez [place] [facility] [place] [facility] , [address] [place] [id number] 0 12/20 CBC w/ auto diff MCH pg 26.0 35.0 35.7 High FINAL Gio Lopez [place] [facility] [place] [facility] , [address] [place] [id number] 0 12/20 CBC w/ auto diff MCHC g/dL 30.0 35.0 33.8 FINAL Gio Lopez [place] [facility] [place] [facility] , [address] [place] [id number] 0 12/20 CBC w/ auto diff MPV fL 9.5 13.4 10.0 FINAL Gio Lopez [place] [facility] [place] [facility] , [address] [place] [id number] 0 12/20 CBC w/ auto diff RDW % 11.3 15.6 15.30 FINAL Gio Lopez [place] [facility] [place] [facility] , [address] [place] [id number] 0 12/21 Prote in/cr eatin ine ratio , rando m urine panel CREAT ININE , RANDO M URINE mg/dL 20.0 320.0 27 FINAL Gio Lopez QUEST, [facility] [address] [id number] 4 12/21 Prote in/cr eatin ine ratio , rando m urine panel PROTE IN/CR EATIN INE RATIO mg/gcr eat 25.0 148.0 1593 High FINAL Gio John VALDES, [employer] [facility] [address] [id number] 4 12/21 Prote in/cr eatin ine ratio , rando m urine panel PROTE IN/CR EATIN INE RATIO mg/mgc reat 0.025 0.148 1.593 High FINAL Gio Lopez LUCIO, [facility] [address] [id number] 4 12/21 Prote in/cr eatin ine ratio , rando m urine panel PROTE IN, TOTAL , RANDO M UR mg/dL 5.0 25.0 43 High FINAL Gio Lopez LUCIO [employer] [facility] [address] [id number] 4 Medications Date Name Route Dose Frequency [...] kidney disease Active Oropharyngeal dysphagia Active Other prison (current) drug therapy Active Acute kidney failure [...] at your satisfaction. Sincerely, Giancarlo Lowe MD [facility] Giancarlo Lowe MD Copy to:??Ulises Dowell MD FAX Beto Arguelles MD (Referring) Electronically signed by Giancarlo Lowe MD 10/30/2022 11:08 CDT
--- OUTSIDE RECORDS SUMMARY | 2024-12-31 12:14 | XMS_ITS | CCD ---
Author Name Interface, [id number] lity Address [place] [address] [facility] Address [place] [address] Care Team Providers Care Materials Assistant Name Role Phone Rasta SHOOK, Arnaud Hoyt Unavail able Allergies and Adverse Reactions Care Plan Reason for Visit Encounters Diagnostic Results Medications Administered Medications Problems Procedures Social History Visits Vital Signs Notes Section
--- OUTSIDE RECORDS SUMMARY | 2024-12-31 12:15 | XMS_ITS ---
Author Name Interface, [id number] lity Address [place] [address] [facility] Address More breakthroughs[place] [address] Allergies and Adverse Reactions Medication/Group Name Reaction [...] mmol/L 136.0 145.0 141 FINAL Arnaud Abad-B [facility] Serum [facility] n [address] [facility] [address] CLIA ID# [id number] 08/02 CMP Potas sium mmol/L 3.5 5.1 3.9 FINAL Arnaud Abad-B [facility] Serum [facility] n [address] [address] CLIA ID# [id number] 08/02 CMP Chlor viola mmol/L 97.0 107.0 104 FINAL Arnaud Abad-B [facility] Serum [facility] n [address] [facility] [address] CLIA ID# [id number] 39 08/02 CMP CO2 mmol/L 21.0 32.0 27.7 FINAL Arnaud douglasses Serum [facility] n [address] [address] CLIA ID# [id number] 08/02 CMP Gluco se mg/dL 74.0 106.0 155 High FINAL Arnaud joiner Serum [facility] n [address] [address] CLIA ID# [id number] 08/02 CMP BUN mg/dL 7.0 18.0 22 High FINAL Arnaud douglass Serum [facility] n [address] [address] CLIA ID# [id number] 39 08/02 CMP Creat inine , mg/dL mg/dL 0.55 1.3 1.66 High FINAL Arnaud Burt [facility] Serum [facility] n [address] [address] CLIA ID# [id number] 08/02 CMP GFR estim ate mil/mi n/1.73 m2 41 Low Result based on the eGFR 2020 calculati on.60-89 mL/min/1. 73m^2 without kidney damage may be normal.60 -89 mL/min/1. 73m^2 for 3 months or more, along with kidney damage, may indicate early kidney disease.C alculatio n modified to the 2020 formula effective 08/22/22. FINAL Arnaud Abad-B rafat Serum [facility] n [address] [address] CLIA ID# [id number] 39 08/02 CMP BUN/C reati nine ratio 6.0 25.0 13.3 FINAL Arnaud douglass Serum [facility] n [address] [address] CLIA ID# [id number] 39 08/02 CMP Calci um mg/dL 8.5 10.1 8.3 Low FINAL Arnaud Leblancy-B erges Serum [facility] n [address] [address] CLIA ID# [id number] 39 08/02 CMP Album in g/dL 3.4 5.0 2.9 Low FINAL Arnaud Abad-B erges Serum [facility] n [address] [address] CLIA ID# [id number] 39 08/02 CMP Total prote in g/dL 6.4 8.2 6.1 Low FINAL Arnaud Abad-B erges Serum [facility] n [address] [address] CLIA ID# [id number] 39 08/02 CMP Globu ciro g/dL 2.2 4.2 3.2 FINAL Arnaud Abad-B erges Serum [facility] n [address] [address] CLIA ID# [id number] 39 08/02 CMP A/G ratio 0.8 2.0 0.9 FINAL Arnaud Abad-B erges Serum [facility] n [address] [address] CLIA ID# [id number] 39 08/02 CMP Bilir ubin, total mg/dL 0.2 1.0 0.4 FINAL Arnaud Abad-B erges Serum [facility] n [address] [address] CLIA ID# [id number] 39 08/02 CMP Alkal ine phosp hatas e U/L 46.0 116.0 137 High FINAL Arnaud Abad-B erges Serum [facility] n [address] [address] CLIA ID# [id number] 39 08/02 CMP AST/S GOT U/L 15.0 37.0 35 FINAL Arnaud joiner Serum [facility] n [address] [address] CLIA ID# [id number] 39 08/02 CMP ALT/S GPT U/L 16.0 63.0 35 FINAL Arnaud joiner Serum [facility] n [address] [address] CLIA ID# [id number] 39 08/02 CBC w/aut o diff with refle x WBC 10^3/u L 4.8 10.8 5.3 FINAL Arnaud joiner [facility] [address] [address] CLIA ID# [id number] 10 08/02 CBC w/aut o diff with refle x RBC 10^6/u L 4.7 6.1 3.96 Low FINAL Arnaud joiner [facility] [address] [address] CLIA ID# [id number] 10 08/02 CBC w/aut o diff with refle x HGB g/dL 14.0 18.0 13.2 Low FINAL Arnaud joiner [facility] [address] [address] CLIA ID# [id number] 10 08/02 CBC w/aut o diff with refle x HCT % 40.0 50.0 40.0 FINAL Arnaud joiner [facility] [address] [address] CLIA ID# [id number] 10 08/02 CBC w/aut o diff with refle x MCV fL 80.0 94.0 101.0 High FINAL Arnaud joiner [facility] [address] [address] CLIA ID# [id number] 10 08/02 CBC w/aut o diff with refle x MCH pg 27.0 31.0 33.3 High FINAL Arnaud joiner [facility] [address] [address] CLIA ID# [id number] 10 08/02 CBC w/aut o diff with refle x MCHC g/dL 33.0 37.0 33.0 FINAL Arnaud joiner [facility] [address] [address] CLIA ID# [id number] 10 08/02 CBC w/aut o diff with refle x PLT 10^3/u L 130.0 400.0 167 FINAL Arnaud joiner [facility] [address] [address] CLIA ID# [id number] 10 08/02 CBC w/aut o diff with refle x MPV fL 9.4 12.4 10.1 FINAL Arnaud joiner [facility] [address] [address] CLIA ID# [id number] 10 08/02 CBC w/aut o diff with refle x RDW % 10.5 14.5 13.3 FINAL Arnaud joienr [facility] [address] [address] CLIA ID# [id number] 10 08/02 CBC w/aut o diff with refle x Tatyana % % 40.0 77.0 62.0 FINAL Arnaud joiner [facility] [address] [address] CLIA ID# [id number] 10 08/02 CBC w/aut o diff with refle x Tatyana # (ANC) 10^3/u L 1.5 6.5 3.29 FINAL Arnaud joiner [facility] [address] [address] CLIA ID# [id number] 10 08/02 CBC w/aut o diff with refle x IG % % 0.0 0.5 0.4 FINAL Arnaud joiner [facility] [address] [address] CLIA ID# [id number] 10 08/02 CBC w/aut o diff with refle x IG # 10^3/u L 0.0 0.03 0.02 FINAL Arnaud joiner [facility] [address] [address] CLIA ID# [id number] 10 08/02 CBC w/aut o diff with refle x LY % % 15.0 41.0 28.2 FINAL Arnaud joiner [facility] [address] [address] CLIA ID# [id number] 10 08/02 CBC w/aut o diff with refle x LY # 10^3/u L 1.2 3.4 1.50 FINAL Arnaud joiner [facility] [address] [address] CLIA ID# [id number] 10 08/02 CBC w/aut o diff with refle x MO % % 3.0 11.0 7.5 FINAL Arnaud joiner [facility] [address] [address] CLIA ID# [id number] 10 08/02 CBC w/aut o diff with refle x MO # 10^3/u L 0.0 1.0 0.40 FINAL Arnaud joiner [facility] [address] [address] CLIA ID# [id number] 10 08/02 CBC w/aut o diff with refle x EO % % 0.0 3.0 1.5 FINAL Arnaud joiner [facility] [address] [address] CLIA ID# [id number] 10 08/02 CBC w/aut o diff with refle x EO # 10^3/u L 0.0 0.3 0.08 FINAL Arnaud joiner [facility] [address] [address] CLIA ID# [id number] 10 08/02 CBC w/aut o diff with refle x BA % % 0.0 1.0 0.4 FINAL Arnaud joiner [facility] [address] [address] CLIA ID# [id number] 10 08/02 CBC w/aut o diff with refle x BA # 10^3/u L 0.0 0.2 0.02 FINAL Arnaud joiner [facility] [address] [address] CLIA ID# [id number] 10 08/02 CBC w/aut o diff with refle x NRBC, % % 0.0 0.2 0.0 FINAL Arnaud joiner [facility] [address] [address] CLIA ID# [id number] 10 08/02 CBC w/aut o diff with refle x NRBC, absol crow, x 10^3/ uL 10^3/u L 0.0 0.01 0.00 FINAL Arnaud Burt marisel [facility] [address] [address] CLIA ID# [id number] Medications Date Name Route Dose Frequency [...] Diagnosis Resolution Date Renal cancer Active Other superintendent container terminal (current) drug therapy Active Vital Signs Date [...] Notes Section * HemOnc Follow Up - [facility] [place] [address] [place] [address] P: F: PATIENT: KUMAR MALONE : 1945 [...] us last winter and then return to [place]??where he continue with the treatment.?? A PET scan done??05/08/2024 showed a subcentimeter FDGavid soft tissue nodule in the right fifth/sixth intercostal space??suspicion for an isolated site of metastatic disease.?? He received SBRT that ended last Wednesday. He??is originally from [place] and has been receiving his??pembrolizumab infusions??with us??while he spent 5 of the winter here in the [facility].?? He is going back to [place] in about 2weeks.?? Will be having repeat imaging studies in [place].?? TSH 07/12/2024 was slightly elevated??at 5.5,??the rest of the blood work including CBC, CMP were within normal limits. 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 * Return appointment when he returns to the [facility] during the winter??in May. Procedure: . Note dictated with a voice recognition system, subject to transcriptional variance. Arnaud Magdaleno MD Send copy of note to: MD Gio Boyd MD . Electronically signed by Arnaud Magdaleno MD 08/03/2024 05:42 CDT * Nurse Note for: 03-AUG-24 [place] [facility] Nurse Note Print Location: Unknown Date/Time Printed: 12/31/2024 12:13 ([facility]) Patient: KUMAR MALONE Sex: Male : 1945 [...] mg Amount in mL: 8 Pharmacy dispense: [facility]: [id number] Dispense/Waste: 200/0 mg Given Dose/Discard: 200/0 mg [...] Pharmacy plan: Dispense/Waste: 1000/0 mL Pharmacy dispense: [facility]: [id number] Dispense/Waste: 1000/0 ML Given Dose/Discard: 1000/0 mL [...]
--- OUTSIDE RECORDS SUMMARY | 2024-12-31 12:15 | XMS_ITS | CCD ---
Author Name Interface, [id number] lity Address [place] breakthroughs[place] [address] [facility] Address More breakthroughs[place] [address] Care Team Providers Care Telephone Interceptor Operator Name Role Phone Rasta SHOOK, Arnaud Hoyt Unavail able Allergies and Adverse Reactions Care Plan Reason for Visit Encounters Diagnostic Results Medications Administered Medications Problems Procedures Social History Visits Vital Signs Notes Section
--- OUTSIDE RECORDS SUMMARY | 2024-12-31 12:15 | XMS_ITS ---
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 Oropharyngeal dyspha yanet 10/28/2022 Other senior living (cur rent) drug therapy 10/28/2022 Poor appetite [...] [facility] [place], [address] [place] [id number] 0 Phone: () - 11/11 CBC w/ auto diff HGB g/dL 12.5 16.6 14.1 FINAL Gio [facility] [place], [address] [place] [id number] 0 Phone: () - 11/11 CBC w/ auto diff PLT K/uL 113.0 364.0 161 FINAL Gio [facility] [place], [address] [place] [id number] 0 Phone: () - 11/11 CBC w/ auto diff Tatyana # (ANC) K/uL 1.6 6.6 2.9 FINAL Gio [facility] [place], [address] [place] [id number] 0 Phone: () - 11/11 CBC w/ auto diff Tatyana % % 43.0 74.0 57.4 FINAL [facility]io [facility] [place], [address] [place] [id number] 0 Phone: () - 11/11 CBC w/ auto diff IG % % 0.0 0.5 0.2 FINAL [facility] [place], [address] [place] [id number] 0 Phone: () - 11/11 CBC w/ auto diff IG # K/uL 0.0 0.03 0.01 FINAL Gio [facility] [place], [address] [place] [id number] 0 Phone: () - 11/11 CBC w/ auto diff LY % % 14.0 41.0 32.1 FINAL [facility]io [facility] [place], [address] [place] [id number] 0 Phone: () - 11/11 CBC w/ auto diff MO % % 6.0 15.0 8.7 FINAL [facility] [place], [address] [place] [id number] 0 Phone: () - 11/11 CBC w/ auto diff EO % % 0.0 7.0 1.2 FINAL [facility] [place], [address] [place] [phone] 0 Phone: () - 11/11 CBC w/ auto diff BA % % 0.0 2.0 0.4 FINAL [facility] [place], [address] [place] [id number] 0 Phone: () - 11/11 CBC w/ auto diff LY # K/uL 0.4 3.6 1.6 FINAL [facility] [place], [address] [place] [id number] 0 Phone: () - 11/11 CBC w/ auto diff MO # K/uL 0.2 1.3 0.4 FINAL [facility] [place], [address] [place] [id number] 0 Phone: () - 11/11 CBC w/ auto diff EO # K/uL 0.0 0.6 0.1 FINAL [facility]io [facility] [place], [address] [place] [id number] 0 Phone: () - 11/11 CBC w/ auto diff BA # K/uL 0.0 0.2 0.0 FINAL [facility] [place], [address] [place] [id number] 0 Phone: () - 11/11 CBC w/ auto diff NRBC % #/100W BC 0.0 0.2 0.0 FINAL Gio [facility] - [place], [address] [place] [id number] 0 Phone: () - 11/11 CBC w/ auto diff RBC M/uL 4.2 5.6 4.50 FINAL [facility]io [facility] [place], [address] [place] [id number] 0 Phone: () - 11/11 CBC w/ auto diff HCT % 39.0 49.0 41.2 FINAL [facility]io [facility] [place], [address] [place] [id number] 0 Phone: () - 11/11 CBC w/ auto diff MCV fL 80.0 104.0 91.6 FINAL [facility] [place], [address] [place] [id number] 0 Phone: () - 11/11 CBC w/ auto diff MCH pg 26.0 35.0 31.3 FINAL [facility] [place], [address] [place] [phone] 0 Phone: () - 11/11 CBC w/ auto diff MCHC g/dL 30.0 35.0 34.2 FINAL [facility] [place], [address] [place] [id number] 0 Phone: () - 11/11 CBC w/ auto diff MPV fL 9.5 13.4 10.6 FINAL [facility], [address] [facility] [address] [facility] [id number] 0 Phone: () - 11/11 CBC w/ auto diff RDW % 11.3 15.6 13.30 FINAL [facility], [address] [facility] [address] [facility] [place] [id number] 0 Phone: () - 11/11 TSH w/ refle x to free T4 TSH uIU/ml 0.32 5.0 3.07 Test performed at [facility] on a [employer] Immunoass ay Analyzer that uses an immunoenz ymometric sandwich assay for analysis. Patient testing should not be performed using multiple methodolo gies due to analytica l variation seen between test methodolo gies. FINAL Gio chapman [facility] [address] [place] [address] [phone] Phone: () - 11/11 CMP Album in g/dL 3.2 5.2 4.4 FINAL Gio chapman [place] [address] [address] [facility] [address] [id number] 0 Phone: () - 11/11 CMP Alkal ine phosp hatas e U/L 46.0 116.0 64 FINAL Gio chapman [facility] [address] [id number] 0 Phone: () - 11/11 CMP ALT/S GPT U/L 7.0 40.0 18 FINAL Gio chapman [facility] [address] [place] [address] [id number] 0 Phone: () - 11/11 CMP AST/S GOT U/L 13.0 40.0 20 FINAL Gio chapman [place] [address] [place] [address] [id number] 0 Phone: () - 11/11 CMP BUN mg/dL 9.0 23.0 23.0 FINAL Gio chapman [place] [address] [place] [address] [id number] 0 Phone: () - 11/11 CMP Calci um mg/dL 8.7 10.4 9.3 FINAL Gio chapman [place] [address] [id number] 0 Phone: () - 11/11 CMP Chlor marissa mmol/L 96.0 114.0 106 FINAL Gio chapman [place] [address] [id number] 0 Phone: () - 11/11 CMP CO2 [...] 96 hour stability window. FINAL Gio chapman [place] [address] [id number] 0 Phone: () - 11/11 CMP Creat inine mg/dL 0.5 1.2 1.90 High FINAL Gio chapman [place] [address] [id number] 0 Phone: () - 11/11 CMP GFR estim ate ml/min /1.73m ^2 35.6 Low GFR is calculate d using the CKD-EPI equation. FINAL Gio chapman [place] [address] [id number] 0 Phone: () - 11/11 CMP Gluco se mg/dL 73.0 126.0 141 High FINAL Gio chapman [place] [address] [address] [facility] [address] [id number] 0 Phone: () - 11/11 CMP Potas sium mmol/L 3.5 5.1 4.9 FINAL Gio chapman [facility] [address] [id number] Phone: () - 11/11 CMP Sodiu m mmol/L 136.0 145.0 140 FINAL Gio chapman [facility] [address] [id number] 0 Phone: () - 11/11 CMP Bilir ubin, total mg/dL 0.3 1.2 0.5 FINAL Gio chapman [facility] [address] [facility] [address] [id number] [phone] Phone: () - 11/11 CMP Total prote in g/dL 5.7 8.2 7.4 FINAL Gio chapman [place] [address] [address] [facility] [address] [id number] 0 Phone: () - 12/03 TSH w/ refle x to free T4 TSH uIU/ml 0.32 5.0 6.97 High Test performed at [facility] on a [employer] 2000 Immunoass ay Analyzer that uses an immunoenz ymometric sandwich assay for analysis. Patient testing should not be performed using multiple methodolo gies due to analytica l variation seen between test methodolo gies. FINAL Gio chapman [place] [address] [id number] 0 Phone: () - 12/03 T4, free panel T4, free ng/dL 0.7 1.8 0.74 Test performed at [facility] on a [employer] 2000 Immunoass ay Analyzer that uses an immunoenz ymometric sandwich assay for analysis. Patient testing should not be performed using multiple methodolo gies due to analytica l variation seen between test methodolo gies. FINAL Gio chapman [place] [address] [id number] 0 Phone: () - 12/03 CMP Album in g/dL 3.2 5.2 4.5 FINAL Gio chapman [place] [address] [address] [facility] [address] [id number] 0 Phone: () - 12/03 CMP Alkal ine phosp hatas e U/L 46.0 116.0 66 FINAL Gio chapman [facility] [address] [facility] [address] [place] [address] [id number] 0 Phone: () - 12/03 CMP ALT/S GPT U/L 7.0 40.0 14 FINAL Gio chapman [facility] [address] [facility] [address] [facility] [id number] 0 Phone: () - 12/03 CMP AST/S GOT U/L 13.0 40.0 22 FINAL Gio chapman [facility], [address] [facility] [address] [facility] [id number] 0 Phone: () - 12/03 CMP BUN mg/dL 9.0 23.0 29.0 High FINAL Gio chapman [facility] [address] [facility] [address] [facility] [id number] 0 Phone: () - 12/03 CMP Calci um mg/dL 8.7 10.4 9.7 FINAL Gio chapman [place] [address] [address] [facility] 100 [facility] [id number] 0 Phone: () - 12/03 CMP Chlor marissa mmol/L 96.0 114.0 105 FINAL Gio chapman [place] [address] [id number] 0 Phone: () - 12/03 CMP CO2 [...] 96 hour stability window. FINAL Gio chapman [facility], [facility] [address] [id number] 0 Phone: () - 12/03 CMP Creat inine mg/dL 0.5 1.2 2.04 High FINAL Gio chapman [facility], [address] [facility] [address] [id number] 0 Phone: () - 12/03 CMP GFR estim ate ml/min /1.73m ^2 32.7 Low GFR is calculate d using the CKD-EPI equation. FINAL Gio chapman [facility], [facility] [address] [facility] 100 [facility] [id number] 0 Phone: () - 12/03 CMP Gluco se mg/dL 73.0 126.0 123 FINAL Gio chapman [facility] [place], [address] [facility] [id number] 0 Phone: () - 12/03 CMP Potas sium mmol/L 3.5 5.1 4.8 FINAL Gio chapman [facility], [address] [facility] [id number] [phone] Phone: () - 12/03 CMP Sodiu m mmol/L 136.0 145.0 138 FINAL Gio [facility]man [facility], [address] [facility] [id number] 0 Phone: () - 12/03 CMP Bilir ubin, total mg/dL 0.3 1.2 0.5 FINAL Gio chapman [facility], [address] [facility] [id number] 0 Phone: () - 12/03 CMP Total prote in g/dL 5.7 8.2 7.7 FINAL Gio [facility]man [facility], [address] [facility] [id number] 0 Phone: () - 12/03 CBC w/ auto diff WBC K/uL 3.0 8.9 4.2 FINAL Gio [facility] - [place], [address] [id number] 0 Phone: () - 12/03 CBC w/ auto diff HGB g/dL 12.5 16.6 14.9 FINAL Gio [facility] - [place], [address] [facility] [place] [id number] 0 Phone: () - 12/03 CBC w/ auto diff PLT K/uL 113.0 364.0 138 FINAL Gio [facility] - [place], [address] [place] [id number] 0 Phone: () - 12/03 CBC w/ auto diff Tatyana # (ANC) K/uL 1.6 6.6 2.8 FINAL [facility] - [place], [address] [place] [id number] 0 Phone: () - 12/03 CBC w/ auto diff Tatyana % % 43.0 74.0 66.0 FINAL [facility]io [facility] [place], [address] [place] [id number] 0 Phone: () - 12/03 CBC w/ auto diff IG % % 0.0 0.5 0.2 FINAL [facility]io [facility] [place], [address] [place] [id number] 0 Phone: () - 12/03 CBC w/ auto diff IG # K/uL 0.0 0.03 0.01 FINAL [facility] [place], [address] [place] [id number] 0 Phone: () - 12/03 CBC w/ auto diff LY % % 14.0 41.0 22.9 FINAL [facility] [place], [address] [place] [id number] 0 Phone: () - 12/03 CBC w/ auto diff MO % % 6.0 15.0 8.3 FINAL [facility]io [facility] - [place], [address] [place] [id number] 0 Phone: () - 12/03 CBC w/ auto diff EO % % 0.0 7.0 2.1 FINAL [facility] [place], [address] [place] [id number] 0 Phone: () - 12/03 CBC w/ auto diff BA % % 0.0 2.0 0.5 FINAL [facility] [place], [address] [place] [id number] 0 Phone: () - 12/03 CBC w/ auto diff LY # K/uL 0.4 3.6 1.0 FINAL [facility] [place], [address] [place] [id number] 0 Phone: () - 12/03 CBC w/ auto diff MO # K/uL 0.2 1.3 0.4 FINAL [facility]io [facility] - [place], [address] [place] [id number] 0 Phone: () - 12/03 CBC w/ auto diff EO # K/uL 0.0 0.6 0.1 FINAL [facility] - [place], [address] [place] [id number] 0 Phone: () - 12/03 CBC w/ auto diff BA # K/uL 0.0 0.2 0.0 FINAL [facility] - [place], [address] [place] [id number] 0 Phone: () - 12/03 CBC w/ auto diff NRBC % #/100W BC 0.0 0.2 0.0 FINAL Gio [facility] - [place], [address] [place] [id number] 0 Phone: () - 12/03 CBC w/ auto diff RBC M/uL 4.2 5.6 4.71 FINAL Gio [facility] - [place], [address] [place] [id number] 0 Phone: () - 12/03 CBC w/ auto diff HCT % 39.0 49.0 43.8 FINAL [facility]io [facility] - [place], [address] [place] [id number] 0 Phone: () - 12/03 CBC w/ auto diff MCV fL 80.0 104.0 93.0 FINAL [facility] - [place], [address] [place] [id number] 0 Phone: () - 12/03 CBC w/ auto diff MCH pg 26.0 35.0 31.6 FINAL Gio [facility] - [place], [address] [place] [id number] 0 Phone: () - 12/03 CBC w/ auto diff MCHC g/dL 30.0 35.0 34.0 FINAL [facility]io [facility] - [place], [address] [place] [id number] 0 Phone: () - 12/03 CBC w/ auto diff MPV fL 9.5 13.4 10.6 FINAL Gio [facility] - [place], [address] [place] [id number] 0 Phone: () - 12/03 CBC w/ auto diff RDW % 11.3 15.6 13.30 FINAL Gio [facility] - [place], [address] [place] [id number] 0 Phone: () - 12/07 iSTAT creat inine panel Creat inine , iSTAT mg/dl 0.6 1.3 1.9 High FINAL Gio [facility] - [place], [address] [place] [id number] 0 Phone: () - 12/07 iSTAT creat inine panel GFR estim ate ml/min /1.73m ^2 35.6 Low GFR is calculate d using the CKD-EPI equation. FINAL [facility]io [facility] - [place], [address] [place] [id number] 0 Phone: () - 12/14 iSTAT creat inine panel Creat inine , iSTAT mg/dl 0.6 1.3 2.3 High FINAL Gio [facility] - [place], [address] [place] [id number] 0 Phone: () - 12/14 iSTAT creat inine panel GFR estim ate ml/min /1.73m ^2 28.3 Low GFR is calculate d using the CKD-EPI equation. FINAL Gio [facility] - [place], [address] [place] [id number] 0 Phone: () - 12/24 CBC w/ auto diff WBC K/uL 3.0 8.9 3.7 FINAL Gio chapman [facility] - [place], [address] [place] [id number] 0 Phone: () - 12/24 CBC w/ auto diff HGB g/dL 12.5 16.6 13.7 FINAL Gio [facility] - [place], [address] [place] [id number] 0 Phone: () - 12/24 CBC w/ auto diff PLT K/uL 113.0 364.0 148 FINAL Gio chapman [facility] - [place], [address] [place] [id number] 0 Phone: () - 12/24 CBC w/ auto diff Tatyana # (ANC) K/uL 1.6 6.6 2.7 FINAL Gio [facility] - [place], [address] [place] [id number] 0 Phone: () - 12/24 CBC w/ auto diff Tatyana % % 43.0 74.0 73.4 FINAL Gio [facility] - [place], [address] [place] [id number] 0 Phone: () - 12/24 CBC w/ auto diff IG % % 0.0 0.5 0.3 FINAL Gio chap[facility] - [place], [address] [place] [id number] 0 Phone: () - 12/24 CBC w/ auto diff IG # K/uL 0.0 0.03 0.01 FINAL Gio chapman [facility] - [place], [address] [place] [id number] 0 Phone: () - 12/24 CBC w/ auto diff LY % % 14.0 41.0 18.6 FINAL Gio [facility]man [facility] - [place], [address] [place] [id number] 0 Phone: () - 12/24 CBC w/ auto diff MO % % 6.0 15.0 6.6 FINAL Gio [facility] - [place], [address] [place] [id number] 0 Phone: () - 12/24 CBC w/ auto diff EO % % 0.0 7.0 0.8 FINAL Gio [facility] - [place], [address] [place] [id number] 0 Phone: () - 12/24 CBC w/ auto diff BA % % 0.0 2.0 0.3 FINAL Gio [facility] - [place], [address] [place] [id number] 0 Phone: () - 12/24 CBC w/ auto diff LY # K/uL 0.4 3.6 0.7 FINAL Gio [facility]man [facility] - [place], [address] [place] [id number] 0 Phone: () - 12/24 CBC w/ auto diff MO # K/uL 0.2 1.3 0.2 FINAL Gio [facility]man [facility] - [place], [address] [place] [id number] 0 Phone: () - 12/24 CBC w/ auto diff EO # K/uL 0.0 0.6 0.0 FINAL Gio chapman [facility] - [place], [address] [place] [id number] 0 Phone: () - 12/24 CBC w/ auto diff BA # K/uL 0.0 0.2 0.0 FINAL Gio [facility] - [place], [address] [place] [id number] 0 Phone: () - 12/24 CBC w/ auto diff NRBC % #/100W BC 0.0 0.2 0.0 FINAL Gio [facility] - [place], [address] [place] [id number] 0 Phone: () - 12/24 CBC w/ auto diff RBC M/uL 4.2 5.6 4.30 FINAL Gio [facility] - [place], [address] [place] [id number] 0 Phone: () - 12/24 CBC w/ auto diff HCT % 39.0 49.0 40.5 FINAL Gio [facility] - [place], [address] [place] [id number] 0 Phone: () - 12/24 CBC w/ auto diff MCV fL 80.0 104.0 94.2 FINAL Gio [facility] - [place], [address] [place] [id number] 0 Phone: () - 12/24 CBC w/ auto diff MCH pg 26.0 35.0 31.9 FINAL Gio [facility] - [place], [address] [place] [id number] 0 Phone: () - 12/24 CBC w/ auto diff MCHC g/dL 30.0 35.0 33.8 FINAL Gio [facility]man [facility] - [place], [address] [place] [id number] 0 Phone: () - 12/24 CBC w/ auto diff MPV fL 9.5 13.4 10.6 FINAL Gio [facility] - [place], [address] [place] [id number] 0 Phone: () - 12/24 CBC w/ auto diff RDW % 11.3 15.6 13.40 FINAL Gio [facility] - [place], [address] [place] [id number] 0 Phone: () - 12/24 CMP Album in g/dL 3.2 5.2 4.1 FINAL Gio [facility] - [place], [address] [place] [id number] 0 Phone: () - 12/24 CMP Alkal ine phosp hatas e U/L 46.0 116.0 57 FINAL Gio chapman [facility], [address] [facility] 100 [facility] [id number] 0 Phone: () - 12/24 CMP ALT/S GPT U/L 7.0 40.0 18 FINAL Gio chapman [facility] [address] [facility] 100 [facility] [id number] 0 Phone: () - 12/24 CMP AST/S GOT U/L 13.0 40.0 18 FINAL Gio chapman [place] [address] [address] [facility] 100 [facility] [id number] 0 Phone: () - 12/24 CMP BUN mg/dL 9.0 23.0 21.0 FINAL Gio chapman [place] [address] [address] [facility] [address] [id number] 0 Phone: () - 12/24 CMP Calci um mg/dL 8.7 10.4 9.4 FINAL Gio chapman [place] [address] [address] [facility] 100 [facility] [id number] 0 Phone: () - 12/24 CMP Chlor marissa mmol/L 96.0 114.0 108 FINAL Gio chapman [facility], [address] [facility] [address] [id number] 0 Phone: () - 12/24 CMP CO2 [...] 96 hour stability window. FINAL Gio chapman [facility], [facility] [address] [facility] [address] [facility] [id number] 0 Phone: () - 12/24 CMP Creat inine mg/dL 0.5 1.2 1.46 High FINAL Gio chapman [facility], [facility] [address] [facility] [address] [id number] 0 Phone: () - 12/24 CMP GFR estim ate ml/min /1.73m ^2 48.8 Low GFR is calculate d using the CKD-EPI equation. FINAL Gio chapman [place] [address] [id number] 0 Phone: () - 12/24 CMP Gluco se mg/dL 73.0 126.0 166 High FINAL Gio chapman [place] [address] [id number] 0 Phone: () - 12/24 CMP Potas sium mmol/L 3.5 5.1 4.6 FINAL Gio chapman [place] [address] [id number] 0 Phone: () - 12/24 CMP Sodiu m mmol/L 136.0 145.0 141 FINAL Gio chapman [place] [address] [id number] 0 Phone: () - 12/24 CMP Bilir ubin, total mg/dL 0.3 1.2 0.4 FINAL Gio chapman [place] [address] [id number] 0 Phone: () - 12/24 CMP Total prote in g/dL 5.7 8.2 7.1 FINAL Gio chapman [place] [address] [id number] 0 Phone: () - 12/24 TSH w/ refle x to free T4 TSH uIU/ml 0.32 5.0 1.81 Test performed at [facility] on a [employer] 2000 Immunoass ay Analyzer that uses an immunoenz ymometric sandwich assay for analysis. Patient testing should not be performed using multiple kevin rowe due to analytica l variation seen between test kevin rowe. FINAL Gio chapman [place] [address] [id number] 0 Phone: () - 01/14 CBC w/ auto diff WBC K/uL 3.0 8.9 4.8 FINAL Mary Jane Rodriguezsen [facility] le, [address] [place] [id number] 0 Phone: () - 01/14 CBC w/ auto diff HGB g/dL 12.5 16.6 13.7 FINAL Mary Jane [facility] - [place], [address] [place] [id number] 0 Phone: () - 01/14 CBC w/ auto diff PLT K/uL 113.0 364.0 140 FINAL Mary Jane [facility] - [place], [address] [place] [id number] 0 Phone: () - 01/14 CBC w/ auto diff Tatyana # (ANC) K/uL 1.6 6.6 3.1 FINAL Mary Jane [facility] - [place], [address] [place] [id number] 0 Phone: () - 01/14 CBC w/ auto diff Tatyana % % 43.0 74.0 64.5 FINAL Mary Jane chapman [facility] - [place], [address] [place] [id number] 0 Phone: () - 01/14 CBC w/ auto diff IG % % 0.0 0.5 0.4 FINAL Mary Jane chapman [facility] - [place], [address] [place] [id number] 0 Phone: () - 01/14 CBC w/ auto diff IG # K/uL 0.0 0.03 0.02 FINAL Mary Jane [facility] - [place], [address] [place] [id number] 0 Phone: () - 01/14 CBC w/ auto diff LY % % 14.0 41.0 24.1 FINAL Mary [facility] - [place], [address] [place] [id number] 0 Phone: () - 01/14 CBC w/ auto diff MO % % 6.0 15.0 9.6 FINAL Mary [facility] - [place], [address] [place] [id number] 0 Phone: () - 01/14 CBC w/ auto diff EO % % 0.0 7.0 1.0 FINAL Mary Jane chap[facility] - [place], [address] [place] [id number] 0 Phone: () - 01/14 CBC w/ auto diff BA % % 0.0 2.0 0.4 FINAL Mary Jane chap[facility] - [place], [address] [place] [id number] 0 Phone: () - 01/14 CBC w/ auto diff LY # K/uL 0.4 3.6 1.2 FINAL Mary Jane [facility] - [place], [address] [place] [id number] 0 Phone: () - 01/14 CBC w/ auto diff MO # K/uL 0.2 1.3 0.5 FINAL Mary Jane chapman [facility] [place], [address] [place] [id number] 0 Phone: () - 01/14 CBC w/ auto diff EO # K/uL 0.0 0.6 0.1 FINAL Mary Jane chapman [facility] [place], [address] [place] [id number] 0 Phone: () - 01/14 CBC w/ auto diff BA # K/uL 0.0 0.2 0.0 FINAL Mary Jane chapman [facility] - [place], [address] [place] [id number] 0 Phone: () - 01/14 CBC w/ auto diff NRBC % #/100W BC 0.0 0.2 0.0 FINAL Mary Jane Interiano a [facility] - [place], [address] [place] [id number] 0 Phone: () - 01/14 CBC w/ auto diff RBC M/uL 4.2 5.6 4.25 FINAL Mary Jane chapman [facility] - [place], [address] [facility] d [address] [place] [id number] 0 Phone: () - 01/14 CBC w/ auto diff HCT % 39.0 49.0 40.5 FINAL Mary Jane chapman [facility] - [place], 5 [facility] d [address] [place] [id number] 0 Phone: () - 01/14 CBC w/ auto diff MCV fL 80.0 104.0 95.3 FINAL Mary Jane chapman [facility] - [place], [address] [place] [address] d [address] [place] [id number] 0 Phone: () - 01/14 CBC w/ auto diff MCH pg 26.0 35.0 32.2 FINAL Mary Jane chapman [facility] - [place], 5 [facility] d [address] [place] [id number] 0 Phone: () - 01/14 CBC w/ auto diff MCHC g/dL 30.0 35.0 33.8 FINAL Mary Jane Interiano ari [facility] - [place], [address] [facility] d [address] [place] [id number] 0 Phone: () - 01/14 CBC w/ auto diff MPV fL 9.5 13.4 10.4 FINAL Mary Jane Coronadoguero ari [facility] - [place], [address] [facility] d [address] [place] [id number] 0 Phone: () - 01/14 CBC w/ auto diff RDW % 11.3 15.6 13.70 FINAL Mary Jane Interiano ari [facility] - [place], [address] [place] [address] d [address] [place] [id number] 0 Phone: () - 01/14 CMP Album in g/dL 3.2 5.2 4.0 FINAL Mary Jane Ko Jaydon chapman [facility] - [place], [address] [facility] [id number] 0 Phone: () - 01/14 CMP Alkal ine phosp hatas e U/L 46.0 116.0 57 FINAL Mary Jane Ko [facility], [address] [facility] [address] [facility] [id number] 0 Phone: () - 01/14 CMP ALT/S GPT U/L 7.0 40.0 19 FINAL Mary Jane Ko [place] [address] [address] [facility] [address] [id number] 0 Phone: () - 01/14 CMP AST/S GOT U/L 13.0 40.0 17 FINAL [place]jass [place] [address] [address] [facility] [address] [id number] 0 Phone: () - 01/14 CMP BUN mg/dL 9.0 23.0 21.0 FINAL Mary Jane Ko [place] [address] [id number] 0 Phone: () - 01/14 CMP Calci um mg/dL 8.7 10.4 9.2 FINAL [place]jass [place] [address] [address] [facility] [address] [id number] 0 Phone: () - 01/14 CMP Chlor marissa mmol/L 96.0 114.0 104 FINAL Mary [place]jass [place] [address] [id number] 0 Phone: () - 01/14 CMP CO2 [...] 96 hour stability window. FINAL [facility] [address] [facility] [address] [place] [address] [id number] 0 Phone: () - 01/14 CMP Creat inine mg/dL 0.5 1.2 1.71 High FINAL [place]ass [place] [address] [id number] 0 Phone: () - 01/14 CMP GFR estim ate ml/min /1.73m ^2 40.3 Low GFR is calculate d using the CKD-EPI equation. FINAL Mary Jane Ko [place] [address] [id number] 0 Phone: () - 01/14 CMP Gluco se mg/dL 73.0 126.0 119 FINAL Mary Jane Ko [address] [id number] 0 Phone: () - 01/14 CMP Potas sium mmol/L 3.5 5.1 4.8 FINAL Mary Jane Ko [address] [id number] 0 Phone: () - 01/14 CMP Sodiu m mmol/L 136.0 145.0 140 FINAL Mary Jane Ko [place] [address] [id number] 0 Phone: () - 01/14 CMP Bilir ubin, total mg/dL 0.3 1.2 0.4 FINAL Mary Jane Ko [place] [address] [id number] 0 Phone: () - 01/14 CMP Total prote in g/dL 5.7 8.2 7.0 FINAL Mary Janejass Ko [address] [id number] 0 Phone: () - 01/14 TSH w/ refle x to free T4 TSH uIU/ml 0.32 5.0 4.77 Test performed at [facility] on a [employer] Immunoass ay Analyzer that uses an immunoenz ymometric sandwich assay for analysis. Patient testing should not be performed using multiple methodgnéesis rowe due to analytica l variation seen between test methodgénesis rowe. FINAL Mary Jane Ko [address] [id number] 0 Phone: () - 02/04 CBC w/ auto diff IG # K/uL 0.0 0.03 0.02 FINAL Mary Jane chapman [facility] - [place], [address] [place] [id number] 0 Phone: () - 02/04 CBC w/ auto diff LY % % 14.0 41.0 19.2 FINAL Mary Jane chapman [facility] - [place], [address] [place] [id number] 0 Phone: () - 02/04 CBC w/ auto diff MO % % 6.0 15.0 7.9 FINAL Mary Jane chapman [facility] - [place], [address] [place] [id number] 0 Phone: () - 02/04 CBC w/ auto diff EO % % 0.0 7.0 3.6 FINAL Mary Jane chapman [facility] - [place], [address] [place] [id number] 0 Phone: () - 02/04 CBC w/ auto diff BA % % 0.0 2.0 0.7 FINAL Mary Jane chapman [facility] - [place], [address] [place] [id number] 0 Phone: () - 02/04 CBC w/ auto diff LY # K/uL 0.4 3.6 0.9 FINAL Mary Jane chapman [facility] - [place], [address] [place] [id number] 0 Phone: () - 02/04 CBC w/ auto diff MO # K/uL 0.2 1.3 0.4 FINAL Mary Jane chapman [facility] - [place], [address] [place] [id number] 0 Phone: () - 02/04 CBC w/ auto diff EO # K/uL 0.0 0.6 0.2 FINAL Mary Jane Interiano a [facility] - [place], [address] [place] [id number] 0 Phone: () - 02/04 CBC w/ auto diff BA # K/uL 0.0 0.2 0.0 FINAL Mary Jane chapman [facility] - [place], [address] [facility] [address] [place] [id number] 0 Phone: () - 02/04 CBC w/ auto diff NRBC % #/100W BC 0.0 0.2 0.0 FINAL Mary Jane chapman [facility] - [place], [address] [facility] d [address] [place] [id number] 0 Phone: () - 02/04 CBC w/ auto diff RBC M/uL 4.2 5.6 4.12 Low FINAL Mary Jane chapman [facility] - [place], [address] [facility] [address] [place] [id number] 0 Phone: () - 02/04 CBC w/ auto diff HCT % 39.0 49.0 39.9 FINAL Mary Jane chapman [facility] - [place], [address] [place] [address] [address] [place] [id number] 0 Phone: () - 02/04 CBC w/ auto diff MCV fL 80.0 104.0 96.8 FINAL Mary Jane Interiano ari [facility] - [place], [address] [facility] [address] [place] [id number] 0 Phone: () - 02/04 CBC w/ auto diff MCH pg 26.0 35.0 33.0 FINAL Mary Jane chapman [facility] - [place], [address] [place] [address] d [address] [place] [id number] 0 Phone: () - 02/04 CBC w/ auto diff MCHC g/dL 30.0 35.0 34.1 FINAL Mary Jane chapman [facility] - [place], [address] [place] [address] d [address] [place] [id number] 0 Phone: () - 02/04 CBC w/ auto diff MPV fL 9.5 13.4 10.3 FINAL Mary Jane Coronadoot a [facility] - [place], [address] [place] [id number] 0 Phone: () - 02/04 CBC w/ auto diff RDW % 11.3 15.6 13.40 FINAL Mary Jane Coronadoot a [facility] - [place], [address] [place] [id number] 0 Phone: () - 02/04 CBC w/ auto diff WBC K/uL 3.0 8.9 4.4 FINAL Mary Jane Coronadoot a [facility] - [place], [address] [place] [id number] 0 Phone: () - 02/04 CBC w/ auto diff HGB g/dL 12.5 16.6 13.6 FINAL Mary Jane Coronadoot a [facility] - [place], [address] [place] [id number] 0 Phone: () - 02/04 CBC w/ auto diff PLT K/uL 113.0 364.0 151 FINAL Mary Jane Interiano a [facility] - [place], [address] [place] [id number] 0 Phone: () - 02/04 CBC w/ auto diff Tatyana # (ANC) K/uL 1.6 6.6 3.0 FINAL Mary Jane Interiano a [facility] - [place], [address] [place] [id number] 0 Phone: () - 02/04 CBC w/ auto diff Tatyana % % 43.0 74.0 68.1 FINAL Mary Jane Interiano a [facility] - [place], [address] [place] [id number] 0 Phone: () - 02/04 CBC w/ auto diff IG % % 0.0 0.5 0.5 FINAL Mary Jane Interiano a [facility] - [place], [address] [place] [id number] 0 Phone: () - 02/04 TSH w/ refle x to free T4 TSH uIU/ml 0.32 5.0 4.63 Test performed at [facility] on a [employer] 2000 Immunoass ay Analyzer that uses an immunoenz ymometric sandwich assay for analysis. Patient testing should not be performed using multiple kevin rowe due to analytica l variation seen between test kevin rowe. FINAL Mary Jane [place] [address] [id number] 0 Phone: () - 02/04 CMP Album in g/dL 3.2 5.2 4.0 FINAL Mary Janejass Ko [place] [address] [id number] 0 Phone: () - 02/04 CMP ALT/S GPT U/L 7.0 40.0 15 FINAL Mary Jane [place] [address] [id number] 0 Phone: () - 02/04 CMP AST/S GOT U/L 13.0 40.0 19 FINAL Mary [place]jass [place] [address] [id number] 0 Phone: () - 02/04 CMP BUN mg/dL 9.0 23.0 21.0 FINAL Mary Jane [place] [address] [id number] 0 Phone: () - 02/04 CMP Alkal ine phosp hatas e U/L 46.0 116.0 56 FINAL [place] [address] [id number] 0 Phone: () - 02/04 CMP Calci um mg/dL 8.7 10.4 9.1 FINAL [place] [address] [id number] 0 Phone: () - 02/04 CMP Chlor marissa mmol/L 96.0 114.0 107 FINAL [place] [address] [id number] 0 Phone: () - 02/04 CMP CO2 [...] 96 hour stability window. [facility] [address] [id number] 0 Phone: () - 02/04 CMP Creat inine mg/dL 0.5 1.2 1.71 High FINAL Mary Jane Ko [place] [address] [id number] 0 Phone: () - 02/04 CMP GFR estim ate ml/min /1.73m ^2 40.3 Low GFR is calculate d using the CKD-EPI equation. FINAL Mary Jane [place] [address] [id number] 0 Phone: () - 02/04 CMP Gluco se mg/dL 73.0 126.0 140 High FINAL Mary Jane Ko [facility] [address] [id number] 0 Phone: () - 02/04 CMP Potas sium mmol/L 3.5 5.1 5.1 FINAL Mary Jane Ko [facility] [address] [id number] 0 Phone: () - 02/04 CMP Sodiu m mmol/L 136.0 145.0 139 FINAL Mary Jane Ko [facility] [address] [facility] [address] [id number] 0 Phone: () - 02/04 CMP Bilir ubin, total mg/dL 0.3 1.2 0.5 FINAL Mary Jane Ko [facility] [address] [facility] [address] [id number] 0 Phone: () - 02/04 CMP Total prote in g/dL 5.7 8.2 6.9 FINAL Mary Jane Ko [facility] [address] [id number] 0 Phone: () - 02/25 TSH w/ refle x to free T4 TSH uIU/ml 0.32 5.0 5.06 High Test performed at [facility] on a [employer] 2000 Immunoass ay Analyzer that uses an immunoenz ymometric sandwich assay for analysis. Patient testing should not be performed using multiple methodolo gies due to analytica l variation seen between test methodolo gies. FINAL Gio chapman [place] [address] [address] [facility] [id number] 0 Phone: () - 02/25 T4, free panel T4, free ng/dL 0.7 1.8 0.81 Test performed at [facility] on a [employer] 2000 Immunoass ay Analyzer that uses an immunoenz ymometric sandwich assay for analysis. Patient testing should not be performed using multiple methodolo gies due to analytica l variation seen between test methodolo gies. FINAL Gio chapman [place] [address] [address] [facility] [address] [id number] 0 Phone: () - 02/25 CMP Album in g/dL 3.2 5.2 4.2 FINAL Gio chapman [place] [address] [address] [facility] [address] [id number] 0 Phone: () - 02/25 CMP Alkal ine phosp hatas e U/L 46.0 116.0 58 FINAL Gio chapman [place] [address] [address] [facility] [address] [id number] 0 Phone: () - 02/25 CMP ALT/S GPT U/L 7.0 40.0 15 FINAL Gio chapman [place] [address] [address] [facility] [address] [id number] 0 Phone: () - 02/25 CMP AST/S GOT U/L 13.0 40.0 20 FINAL Gio chapman [place] [address] [address] [facility] [address] [id number] 0 Phone: () - 02/25 CMP BUN mg/dL 9.0 23.0 19.0 FINAL Gio chapman [place] [address] [id number] 0 Phone: () - 02/25 CMP Calci um mg/dL 8.7 10.4 9.3 FINAL Gio chapman [place] [address] [id number] 0 Phone: () - 02/25 CMP Chlor marissa mmol/L 96.0 114.0 108 FINAL Gio chapman [place] [address] [id number] 0 Phone: () - 02/25 CMP CO2 [...] 96 hour stability window. FINAL Gio chapman [place] [address] [id number] 0 Phone: () - 02/25 CMP Creat inine mg/dL 0.5 1.2 1.74 High FINAL Gio chapman [place] [address] [id number] 0 Phone: () - 02/25 CMP GFR estim ate ml/min /1.73m ^2 39.5 Low GFR is calculate d using the CKD-EPI equation. FINAL Gio chapman [place] [address] [id number] 0 Phone: () - 02/25 CMP Gluco se mg/dL 73.0 126.0 106 FINAL Gio chapman [place] [address] [id number] 0 Phone: () - 02/25 CMP Potas sium mmol/L 3.5 5.1 4.8 FINAL Gio chapman [place] [address] [id number] 0 Phone: () - 02/25 CMP Sodiu m mmol/L 136.0 145.0 141 FINAL Gio chapman [facility], [address] [place] [id number] 0 Phone: () - 02/25 CMP Bilir ubin, total mg/dL 0.3 1.2 0.5 FINAL Gio chapman [facility] - [place], [address] [place] [id number] 0 Phone: () - 02/25 CMP Total prote in g/dL 5.7 8.2 7.1 FINAL Gio chapman [facility] - [place], [address] [place] [id number] 0 Phone: () - 02/25 CBC w/ auto diff WBC K/uL 3.0 8.9 4.8 FINAL Gio chapman [facility] - [place], [address] [facility] d [address] [facility] [place] [id number] 0 Phone: () - 02/25 CBC w/ auto diff HGB g/dL 12.5 16.6 13.6 FINAL Gio chapman [facility] - [place], [address] [facility] [address] [place] [facility] [place] [id number] 0 Phone: () - 02/25 CBC w/ auto diff PLT K/uL 113.0 364.0 140 FINAL Gio chapman [facility] - [place], [address] [facility] [address] [facility] [place] [id number] 0 Phone: () - 02/25 CBC w/ auto diff Tatyana # (ANC) K/uL 1.6 6.6 3.1 FINAL Gio chapman [facility] - [place], [address] [place] [facility] [place] [id number] 0 Phone: () - 02/25 CBC w/ auto diff Tatyana % % 43.0 74.0 65.3 FINAL Gio chapman [facility] - [place], [address] [place] [facility] [place] [id number] 0 Phone: () - 02/25 CBC w/ auto diff IG % % 0.0 0.5 0.2 FINAL Gio chapman [facility] - [place], [facility] [address] [place] [id number] 0 Phone: () - 02/25 CBC w/ auto diff IG # K/uL 0.0 0.03 0.01 FINAL Gio Interiano a [facility] - [place], [address] [place] [id number] 0 Phone: () - 02/25 CBC w/ auto diff LY % % 14.0 41.0 23.6 FINAL Gio Coronadoot a [facility] - [place], [address] [place] [id number] 0 Phone: () - 02/25 CBC w/ auto diff MO % % 6.0 15.0 8.4 FINAL Gio Interiano a [facility] - [place], [address] [place] [id number] 0 Phone: () - 02/25 CBC w/ auto diff EO % % 0.0 7.0 2.3 FINAL Gio Interiano a [facility] - [place], [address] [facility] [address] [place] [id number] 0 Phone: () - 02/25 CBC w/ auto diff BA % % 0.0 2.0 0.2 FINAL Gio chapman [facility] - [place], [address] [place] [id number] 0 Phone: () - 02/25 CBC w/ auto diff LY # K/uL 0.4 3.6 1.1 FINAL Gio Interiano a [facility] - [place], [address] [place] [id number] 0 Phone: () - 02/25 CBC w/ auto diff MO # K/uL 0.2 1.3 0.4 FINAL Gio chapman [facility] - [place], [address] [place] [id number] 0 Phone: () - 02/25 CBC w/ auto diff EO # K/uL 0.0 0.6 0.1 FINAL Gio Interiano a [facility] - [place], [address] [place] [id number] 0 Phone: () - 02/25 CBC w/ auto diff BA # K/uL 0.0 0.2 0.0 FINAL Gio chapman [facility] - [place], [address] [place] [id number] 0 Phone: () - 02/25 CBC w/ auto diff NRBC % #/100W BC 0.0 0.2 0.0 FINAL Gio chapman [facility] - [place], [address] [place] [id number] 0 Phone: () - 02/25 CBC w/ auto diff RBC M/uL 4.2 5.6 4.20 FINAL Gio chapman [facility] - [place], [address] [place] [id number] 0 Phone: () - 02/25 CBC w/ auto diff HCT % 39.0 49.0 41.1 FINAL Gio chapman [facility] - [place], [address] [place] [id number] 0 Phone: () - 02/25 CBC w/ auto diff MCV fL 80.0 104.0 97.9 FINAL Gio chapman [facility] - [place], [address] [place] [id number] 0 Phone: () - 02/25 CBC w/ auto diff MCH pg 26.0 35.0 32.4 FINAL Gio chapman [facility] - [place], [address] [place] [id number] 0 Phone: () - 02/25 CBC w/ auto diff MCHC g/dL 30.0 35.0 33.1 FINAL Gio chapman [facility] - [place], [address] [place] [id number] 0 Phone: () - 02/25 CBC w/ auto diff MPV fL 9.5 13.4 10.6 FINAL Gio Coronadoot a [facility] - [place], [address] [facility] [id number] 0 Phone: () - 02/25 CBC w/ auto diff RDW % 11.3 15.6 13.30 FINAL Gio chapman [facility], [address] [facility] [id number] 0 Phone: () - 03/18 TSH w/ refle x to free T4 TSH uIU/ml 0.32 5.0 5.17 High Test performed at [facility] on a [employer] Immunoass ay Analyzer that uses an immunoenz ymometric sandwich assay for analysis. Patient testing should not be performed using multiple methodgénesis rowe due to analytica l variation seen between test methodgénesis rowe. FINAL Mary [place] [address] [id number] 0 Phone: () - 03/18 CMP Album in g/dL 3.2 5.2 4.1 FINAL Mary Jane [place] [address] [id number] 0 Phone: () - 03/18 CMP Alkal ine phosp hatas e U/L 46.0 116.0 70 FINAL Mary Jane [place] [address] [id number] 0 Phone: () - 03/18 CMP ALT/S GPT U/L 7.0 40.0 16 FINAL Mary Jane [place] [address] [id number] 0 Phone: () - 03/18 CMP AST/S GOT U/L 13.0 40.0 21 FINAL Mary Jane [place] [address] [id number] 0 Phone: () - 03/18 CMP BUN mg/dL 9.0 23.0 23.0 FINAL Mary Jane Interiano [place] [address] [address] [facility] [address] [place] [address] [id number] 0 Phone: () - 03/18 CMP Calci um mg/dL 8.7 10.4 9.4 FINAL Mary Jane Interiano [place] [address] [id number] 0 Phone: () - 03/18 CMP Chlor marissa mmol/L 96.0 114.0 110 FINAL Mary Jane [place] [address] [id number] 0 Phone: () - 03/18 CMP CO2 [...] 96 hour stability window. FINAL Mary Jane [place] [address] [id number] 0 Phone: () - 03/18 CMP Creat inine mg/dL 0.5 1.2 1.66 High FINAL Mary Jane Ko [place] [address] [id number] 0 Phone: () - 03/18 CMP GFR estim ate ml/min /1.73m ^2 41.8 Low GFR is calculate d using the CKD-EPI equation. FINAL Mary Jane Ko [place] [address] [id number] 0 Phone: () - 03/18 CMP Gluco se mg/dL 73.0 126.0 119 FINAL Mary Jane Ko [place] [address] [id number] 0 Phone: () - 03/18 CMP Potas sium mmol/L 3.5 5.1 4.9 FINAL Mary Jane Ko [place] [address] [id number] 0 Phone: () - 03/18 CMP Sodiu m mmol/L 136.0 145.0 142 FINAL Mary Jane Ko [place] [address] [id number] 0 Phone: () - 03/18 CMP Bilir ubin, total mg/dL 0.3 1.2 0.6 FINAL Mary Jane Coronado a Oncology [facility], [address] [facility] [id number] 0 Phone: () - 03/18 CMP Total prote in g/dL 5.7 8.2 7.2 FINAL Mary Jane Interiano a Oncology [facility], [address] [facility] [address] [facility] [id number] 0 Phone: () - 03/18 CBC w/ auto diff WBC K/uL 3.0 8.9 3.7 FINAL Mary Jane Coronado ari [facility] - [place], [address] [place] [address] d [address] [facility] [id number] 0 Phone: () - 03/18 CBC w/ auto diff HGB g/dL 12.5 16.6 13.5 FINAL Mary Jane Coronado ari [facility] - [place], [address] [place] [address] d [address] [place] [facility] [id number] 0 Phone: () - 03/18 CBC w/ auto diff PLT K/uL 113.0 364.0 160 FINAL Mary Jane Coronado ari [facility] - [place], [address] [place] [address] [address] [place] [facility] [id number] 0 Phone: () - 03/18 CBC w/ auto diff Tatyana # (ANC) K/uL 1.6 6.6 2.4 FINAL Mary Jane Interiano a [facility] - [place], [address] [place] [address] d [address] [place] [facility] [id number] 0 Phone: () - 03/18 CBC w/ auto diff Tatyana % % 43.0 74.0 62.8 FINAL Mary Jane Coronado ari [facility] - [place], [address] [place] [address] [address] [place] [facility] [id number] 0 Phone: () - 03/18 CBC w/ auto diff IG % % 0.0 0.5 0.0 FINAL Mary Jane Coronado a [facility] - [place], [facility] [address] [place] [id number] 0 Phone: () - 03/18 CBC w/ auto diff IG # K/uL 0.0 0.03 0.00 FINAL Mary Jane chapman [facility] - [place], [address] [facility] d [address] [place] [id number] 0 Phone: () - 03/18 CBC w/ auto diff LY % % 14.0 41.0 25.7 FINAL Mary Jane chapman [facility] - [place], [address] [facility] d [address] [place] [id number] 0 Phone: () - 03/18 CBC w/ auto diff MO % % 6.0 15.0 9.1 FINAL Mary Jane chapman [facility] - [place], [address] [facility] d [address] [place] [id number] 0 Phone: () - 03/18 CBC w/ auto diff EO % % 0.0 7.0 2.1 FINAL Mary Jane chapman [facility] - [place], [address] [facility] d [address] [place] [id number] 0 Phone: () - 03/18 CBC w/ auto diff BA % % 0.0 2.0 0.3 FINAL Mary Jane chapman [facility] - [place], [address] [facility] d [address] [place] [id number] 0 Phone: () - 03/18 CBC w/ auto diff LY # K/uL 0.4 3.6 1.0 FINAL Mary Jane chapman [facility] - [place], [address] [facility] [address] [place] [id number] 0 Phone: () - 03/18 CBC w/ auto diff MO # K/uL 0.2 1.3 0.3 FINAL Mary Jane chapman [facility] - [place], [address] [facility] [address] [place] [id number] 0 Phone: () - 03/18 CBC w/ auto diff EO # K/uL 0.0 0.6 0.1 FINAL Mary Jane Stefani [place] [facility] - [place], [address] [place] [id number] 0 Phone: () - 03/18 CBC w/ auto diff BA # K/uL 0.0 0.2 0.0 FINAL Mary Jane Interiano a [facility] - [place], [address] [place] [id number] 0 Phone: () - 03/18 CBC w/ auto diff NRBC % #/100W BC 0.0 0.2 0.0 FINAL Mary Jane Interiano a [facility] - [place], [address] [place] [id number] 0 Phone: () - 03/18 CBC w/ auto diff RBC M/uL 4.2 5.6 4.10 Low FINAL Mary Jane Interiano a [facility] - [place], [address] [place] [place] [id number] 0 Phone: () - 03/18 CBC w/ auto diff HCT % 39.0 49.0 40.6 FINAL Mary Jane chapman [facility] - [place], [address] [place] [id number] 0 Phone: () - 03/18 CBC w/ auto diff MCV fL 80.0 104.0 99.0 FINAL Mary Jane Interiano a [facility] - [place], [address] [place] [phone] 0 Phone: () - 03/18 CBC w/ auto diff MCH pg 26.0 35.0 32.9 FINAL Mary Jane Interiano a [facility] - [place], [address] [place] [id number] 0 Phone: () - 03/18 CBC w/ auto diff MCHC g/dL 30.0 35.0 33.3 FINAL Mary Jane Interiano a [facility] - [place], [address] [place] [id number] 0 Phone: () - 10/26 /2023 CBC w/ auto diff MPV fL 9.5 13.4 10.3 FINAL Mary Jane Coronadoot a [facility] - [place], [address] [place] [id number] 0 Phone: () - 03/18 CBC w/ auto diff RDW % 11.3 15.6 12.70 FINAL Mary Jane Coronadoot a [facility] - [place], [address] [place] [id number] 0 Phone: () - 03/18 T4, free panel T4, free ng/dL 0.7 1.8 0.88 Test performed at [facility] on a [employer] Immunoass ay Analyzer that uses an immunoenz ymometric sandwich assay for analysis. Patient testing should not be performed using multiple methodolo soledad due to analytica l variation seen between test methodgénesis rowe. FINAL Mary Jane Coronadoot a [facility] - [place], [address] [place] [id number] 0 Phone: () - 04/08 CBC w/ auto diff WBC K/uL 3.0 8.9 5.1 FINAL Mary Jane Coronadoot a [facility] - [place], [address] [facility] [address] [place] [id number] 0 Phone: () - 04/08 CBC w/ auto diff HGB g/dL 12.5 16.6 13.7 FINAL Mary Jane Coronadoot a [facility] - [place], [address] [place] [id number] 0 Phone: () - 04/08 CBC w/ auto diff PLT K/uL 113.0 364.0 167 FINAL Mary Jane Coronadoot a [facility] - [place], [address] [place] [id number] 0 Phone: () - 04/08 CBC w/ auto diff Tatyana # (ANC) K/uL 1.6 6.6 3.1 FINAL Mary Jane Coronadoot a [facility] - [place], [address] [place] [id number] 0 Phone: () - 04/08 CBC w/ auto diff Tatyana % % 43.0 74.0 60.1 FINAL Mary Jane Coronadoot a [facility] - [place], [address] [place] [id number] 0 Phone: () - 04/08 CBC w/ auto diff IG % % 0.0 0.5 0.2 FINAL Mary Jane Coronadoot a [facility] - [place], [address] [place] [id number] 0 Phone: () - 04/08 CBC w/ auto diff IG # K/uL 0.0 0.03 0.01 FINAL Mary Jane chapman [facility] - [place], [address] [place] [id number] 0 Phone: () - 04/08 CBC w/ auto diff LY % % 14.0 41.0 29.4 FINAL Mary Jane chapman [facility] - [place], [address] [place] [id number] 0 Phone: () - 04/08 CBC w/ auto diff MO % % 6.0 15.0 9.3 FINAL Mary Jane chapman [facility] - [place], [address] [place] [id number] 0 Phone: () - 04/08 CBC w/ auto diff EO % % 0.0 7.0 0.8 FINAL Mary Jane Interiano a [facility] - [place], [address] [place] [id number] 0 Phone: () - 04/08 CBC w/ auto diff BA % % 0.0 2.0 0.2 FINAL Mary Jane Interiano a [facility] - [place], [address] [place] [id number] 0 Phone: () - 04/08 CBC w/ auto diff LY # K/uL 0.4 3.6 1.5 FINAL Mary Jane Interiano a [facility] - [place], [address] [place] [id number] 0 Phone: () - 04/08 CBC w/ auto diff MO # K/uL 0.2 1.3 0.5 FINAL Mary Jane chapman [facility] - [place], [address] [facility] [address] [place] [id number] 0 Phone: () - 04/08 CBC w/ auto diff EO # K/uL 0.0 0.6 0.0 FINAL Mary Jane chapman [facility] - [place], [address] [facility] [address] [place] [id number] 0 Phone: () - 04/08 CBC w/ auto diff BA # K/uL 0.0 0.2 0.0 FINAL Mary Jane chapman [facility] - [place], [address] [facility] [address] [place] [id number] 0 Phone: () - 04/08 CBC w/ auto diff NRBC % #/100W BC 0.0 0.2 0.0 FINAL Mary Jane chapman [facility] - [place], [address] [facility] [address] [place] [id number] 0 Phone: () - 04/08 CBC w/ auto diff RBC M/uL 4.2 5.6 4.14 Low FINAL Mary Jane chapman [facility] - [place], [address] [facility] [address] [place] [id number] 0 Phone: () - 04/08 CBC w/ auto diff HCT % 39.0 49.0 41.1 FINAL Mary Jane chapman [facility] - [place], [address] [facility] [address] [place] [id number] 0 Phone: () - 04/08 CBC w/ auto diff MCV fL 80.0 104.0 99.3 FINAL Mary Jane chapman [facility] - [place], [address] [place] [id number] 0 Phone: () - 04/08 CBC w/ auto diff MCH pg 26.0 35.0 33.1 FINAL Mary Jane Stefani [place] [facility] [place], [address] [place] [id number] 0 Phone: () - 04/08 CBC w/ auto diff MCHC g/dL 30.0 35.0 33.3 FINAL Mary Jane Coronadoot a [facility] - [place], [address] [place] [id number] 0 Phone: () - 04/08 CBC w/ auto diff MPV fL 9.5 13.4 10.7 FINAL Mary Jane Coronadoot a [facility] - [place], [address] [place] [id number] 0 Phone: () - 04/08 CBC w/ auto diff RDW % 11.3 15.6 12.50 FINAL Mary Jane Coronadoot a [facility] - [place], [address] [place] [id number] 0 Phone: () - 04/08 CMP SODIU M AHL mmol/L 136.0 145.0 136 FINAL Mary Jane Ko [facility] [address] [place] 04/08 CMP POTAS SIUM AHL mmol/L 3.5 5.1 5.7 High FINAL Mary Jane Ko [facility] [address] 04/08 CMP CHLOR MARISAS AHL mmol/L 98.0 107.0 102 FINAL Mary Jane Ko [facility] [address] 04/08 CMP CO2,T OTAL AHL mmol/L 22.0 29.0 25 FINAL Mary Jane Ko [facility] [address] 04/08 CMP ANION GAP AHL 5.0 18.0 9 FINAL Mary Jane Ko [facility] [address] 04/08 CMP GLUCO SE AHL mg/dL 70.0 99.0 124 High FINAL Mary Jane Ko [facility] [address] 04/08 CMP CALCI UM AHL mg/dL 8.8 10.2 9.5 FINAL Mary Jane Ko [facility] [address] [place] [address] 04/08 CMP BUN AHL mg/dL 8.0 23.0 29 High FINAL Mary Jane Ko [facility] [address] [place] [address] 04/08 CMP CREAT ININE AHL mg/dL 0.7 1.2 1.65 High FINAL Mary Jane Ko [facility] [address] [place] [address] 04/08 CMP BUN/C REAT RATIO AHL 10.0 20.0 18 FINAL Mary Jane Rodriguez[address] 04/08 CMP EGFR CHEM AHL mL/min /1.73m 2 42 Low As of 2, eGFR is calculate d by the CKD-EPI creatinin e equation without race adjustmen t. ?eGFR can be influence d by muscle mass, exercise, and diet. ?The reported eGFR is an estimatio n only and is only applicabl e if the renal function is stable. FINAL Mary Jane Ko [address] 04/08 CMP ALBUM IN AHL g/dL 4.0 4.9 4.2 FINAL Mary Jane Stefani [address] 04/08 CMP PROTE IN,TO LEE AHL g/dL 6.0 8.0 7.0 FINAL Mary Jane Ko [address] 04/08 CMP BILIR UBIN, TOTAL AHL mg/dL 0.0 1.2 0.4 FINAL Mary Jane Ko [address] 04/08 CMP ALK PHOSP HATAS E AHL IU/L 40.0 129.0 85 FINAL Mary Jane Ko [facility] [address] [place] [address] 04/08 CMP ALT (SGPT ) AHL IU/L 10.0 50.0 25 FINAL Mary Jane Ko [facility] [address] 04/08 CMP AST (SGOT ) AHL IU/L 10.0 50.0 33 FINAL Mary Jane Ko [facility] [address] 04/08 TSH w/ refle x to free T4 TSH uIU/ml 0.32 5.0 2.52 Test performed at [facility] on a [employer] 2000 Immunoass ay Analyzer that uses an immunoenz ymometric sandwich assay for analysis. Patient testing should not be performed using multiple methodolo gies due to analytica l variation seen between test methodolo gies. FINAL Mary Jane Interiano [facility], [address] [place] [address] [phone] 0 Phone: () - 04/14 iSTAT K+ panel Potas sium, iSTAT mmol/L 3.5 4.9 4.9 Reference range adjusted 0 with implement ation of I-Stat 8+ cartridge . [facility] [address] [facility] [address] [facility] [id number] 0 Phone: () - 04/29 TSH w/ refle x to free T4 TSH uIU/ml 0.32 5.0 0.62 Test performed at [facility] on a [employer] 2000 Immunoass ay Analyzer that uses an immunoenz ymometric sandwich assay for analysis. Patient testing should not be performed using multiple methodolo gies due to analytica l variation seen between test methodolo gies. FINAL Mary Jane chapman [facility], [address] [place] [address] [id number] 0 Phone: () - 04/29 CMP Album in g/dL 3.2 5.2 4.2 FINAL [facility] [address] [facility] [id number] 0 Phone: () - 04/29 CMP Alkal ine phosp hatas e U/L 46.0 116.0 67 FINAL Mary Jane Interiano [facility], [address] [facility] [id number] 0 Phone: () - 04/29 CMP ALT/S GPT U/L 7.0 40.0 22 FINAL [facility] [address] [id number] 0 Phone: () - 04/29 CMP AST/S GOT U/L 13.0 40.0 22 [facility] [address] [id number] 0 Phone: () - 04/29 CMP BUN mg/dL 9.0 23.0 24.0 High FINAL [place] [address] [id number] 0 Phone: () - 04/29 CMP Calci um mg/dL 8.7 10.4 8.9 FINAL [place] [address] [id number] 0 Phone: () - 04/29 CMP Chlor marissa mmol/L 96.0 114.0 109 FINAL Mary Jane Ko [place] [address] [id number] 0 Phone: () - 04/29 CMP CO2 [...] hour stability window. FINAL Mary Jane Interiano [place] [address] [id number] 0 Phone: () - 04/29 CMP Creat inine mg/dL 0.5 1.2 1.55 High FINAL Mary Jane Ko [place] [address] [id number] 0 Phone: () - 04/29 CMP GFR estim ate ml/min /1.73m ^2 45.3 Low GFR is calculate d using the CKD-EPI equation. FINAL Mary Jane Ko [place] [address] [id number] 0 Phone: () - 04/29 CMP Gluco se mg/dL 73.0 126.0 113 [facility], [address] [facility] [id number] 0 Phone: () - 04/29 CMP Potas sium mmol/L 3.5 5.1 5.0 FINAL [facility], [address] [facility] [id number] 0 Phone: () - 04/29 CMP Sodiu m mmol/L 136.0 145.0 141 FINAL [facility], [address] [id number] 0 Phone: () - 04/29 CMP Bilir ubin, total mg/dL 0.3 1.2 0.4 FINAL [facility], [address] [id number] 0 Phone: () - 04/29 CMP Total prote in g/dL 5.7 8.2 6.9 FINAL [facility], [address] [facility] [address] [place] [address] [id number] 0 Phone: () - 04/29 CBC w/ auto diff WBC K/uL 3.0 8.9 5.5 FINAL Mary Jane Coronado ari [facility] - [place], [address] [facility] [id number] 0 Phone: () - 04/29 CBC w/ auto diff HGB g/dL 12.5 16.6 12.8 FINAL [facility] - [place], [address] [facility] [id number] 0 Phone: () - 04/29 CBC w/ auto diff PLT K/uL 113.0 364.0 158 FINAL Mary Jane [facility] - [place], [address] [facility] [address] [facility] [id number] 0 Phone: () - 04/29 CBC w/ auto diff Tatyana # (ANC) K/uL 1.6 6.6 3.4 FINAL Mary Jane chapman [facility] - [place], [address] [place] [id number] 0 Phone: () - 04/29 CBC w/ auto diff Tatyana % % 43.0 74.0 61.5 FINAL Mary Jane chapman [facility] - [place], [address] [place] [id number] 0 Phone: () - 04/29 CBC w/ auto diff IG % % 0.0 0.5 0.5 FINAL Mary Jane chapman [facility] - [place], [address] [place] [id number] 0 Phone: () - 04/29 CBC w/ auto diff IG # K/uL 0.0 0.03 0.03 FINAL Mary Jane chapman [facility] - [place], [address] [place] [id number] 0 Phone: () - 04/29 CBC w/ auto diff LY % % 14.0 41.0 23.1 FINAL Mary Jane chapman [facility] - [place], [address] [place] [id number] 0 Phone: () - 04/29 CBC w/ auto diff MO % % 6.0 15.0 9.4 FINAL Mary Jane chapman [facility] - [place], [address] [place] [id number] 0 Phone: () - 04/29 CBC w/ auto diff EO % % 0.0 7.0 5.1 FINAL Mary Jane chapman [facility] - [place], [address] [place] [id number] 0 Phone: () - 04/29 CBC w/ auto diff BA % % 0.0 2.0 0.4 FINAL Mary Jane Interiano a [facility] - [place], [address] [place] [id number] 0 Phone: () - 04/29 CBC w/ auto diff LY # K/uL 0.4 3.6 1.3 FINAL Mary Jane chapman [facility] - [place], [address] [place] [id number] 0 Phone: () - 04/29 CBC w/ auto diff MO # K/uL 0.2 1.3 0.5 FINAL Mary Jane chapman [facility] - [place], [address] [facility] [address] [place] [id number] 0 Phone: () - 04/29 CBC w/ auto diff EO # K/uL 0.0 0.6 0.3 FINAL Mary Jane chapman [facility] - [place], [address] [place] [id number] 0 Phone: () - 04/29 CBC w/ auto diff BA # K/uL 0.0 0.2 0.0 FINAL Mary Jane chapman [facility] - [place], [address] [address] [address] [place] [id number] 0 Phone: () - 04/29 CBC w/ auto diff NRBC % #/100W BC 0.0 0.2 0.0 FINAL Mary Jane chapman [facility] - [place], [address] [facility] [address] [place] [id number] 0 Phone: () - 04/29 CBC w/ auto diff RBC M/uL 4.2 5.6 3.80 Low FINAL Mary Jane chapman [facility] - [place], [address] [place] [id number] 0 Phone: () - 04/29 CBC w/ auto diff HCT % 39.0 49.0 37.7 Low FINAL Mary Jane chapman [facility] - [place], [address] [place] [id number] 0 Phone: () - 04/29 CBC w/ auto diff MCV fL 80.0 104.0 99.2 FINAL Mary Jane Stefani [place] [facility] [place], [address] [place] [id number] 0 Phone: () - 04/29 CBC w/ auto diff MCH pg 26.0 35.0 33.7 FINAL Mary Jane Coronadoot a [facility] - [place], [address] [place] [id number] 0 Phone: () - 04/29 CBC w/ auto diff MCHC g/dL 30.0 35.0 34.0 FINAL Mary Jane Coronadoot a [facility] - [place], [address] [place] [id number] 0 Phone: () - 04/29 CBC w/ auto diff MPV fL 9.5 13.4 10.2 FINAL Mary Jane Coronadoot a [facility] - [place], [address] [place] [id number] 0 Phone: () - 04/29 CBC w/ auto diff RDW % 11.3 15.6 12.50 FINAL Mary Jane Coronadoot a [facility] - [place], [address] [place] [id number] 0 Phone: () - 05/20 CBC w/ auto diff WBC K/uL 3.0 8.9 5.4 FINAL Gio Coronadoot ari [facility] - [place], [address] [place] [id number] 0 Phone: () - 05/20 CBC w/ auto diff HGB g/dL 12.5 16.6 12.7 FINAL Gio Interiano a [facility] - [place], [address] [place] [id number] 0 Phone: () - 05/20 CBC w/ auto diff PLT K/uL 113.0 364.0 150 FINAL Gio Coronadoot a [facility] - [place], [address] [place] [id number] 0 Phone: () - 05/20 CBC w/ auto diff Tatyana # (ANC) K/uL 1.6 6.6 3.3 FINAL Gio Coronadoot a [facility] - [place], [address] [place] [id number] 0 Phone: () - 05/20 CBC w/ auto diff Tatyana % % 43.0 74.0 61.2 FINAL Gio Coronadoot a [facility] - [place], [address] [place] [id number] 0 Phone: () - 05/20 CBC w/ auto diff IG % % 0.0 0.5 0.2 FINAL Gio Coronadoot a [facility] - [place], [address] [place] [id number] 0 Phone: () - 05/20 CBC w/ auto diff IG # K/uL 0.0 0.03 0.01 FINAL Gio Coronadoot a [facility] - [place], [address] [place] [id number] 0 Phone: () - 05/20 CBC w/ auto diff LY % % 14.0 41.0 22.1 FINAL Gio Coronadoot a [facility] - [place], [address] [place] [id number] 0 Phone: () - 05/20 CBC w/ auto diff MO % % 6.0 15.0 9.6 FINAL Gio Coronadoot a [facility] - [place], [address] [place] [id number] 0 Phone: () - 05/20 CBC w/ auto diff EO % % 0.0 7.0 6.5 FINAL Gio Coronadoot a [facility] - [place], [address] [place] [id number] 0 Phone: () - 05/20 CBC w/ auto diff BA % % 0.0 2.0 0.4 FINAL Gio Coronadoot a [facility] - [place], [address] [place] [id number] 0 Phone: () - 05/20 CBC w/ auto diff LY # K/uL 0.4 3.6 1.2 FINAL Gio Coronadoot a [facility] - [place], [address] [place] [id number] 0 Phone: () - 05/20 CBC w/ auto diff MO # K/uL 0.2 1.3 0.5 FINAL Gio Coronadoot a [facility] - [place], [address] [place] [id number] 0 Phone: () - 05/20 CBC w/ auto diff EO # K/uL 0.0 0.6 0.4 FINAL Gio Coronadoot a [facility] - [place], [address] [place] [id number] 0 Phone: () - 05/20 CBC w/ auto diff BA # K/uL 0.0 0.2 0.0 FINAL Gio Coronadoot a [facility] - [place], [address] [place] [id number] 0 Phone: () - 05/20 CBC w/ auto diff NRBC % #/100W BC 0.0 0.2 0.0 FINAL Gio Coronadoot a [facility] - [place], [address] [place] [id number] 0 Phone: () - 05/20 CBC w/ auto diff RBC M/uL 4.2 5.6 3.83 Low FINAL Gio Coronadoot a [facility] - [place], [address] [place] [id number] 0 Phone: () - 05/20 CBC w/ auto diff HCT % 39.0 49.0 38.0 Low FINAL Gio Coronadoot a [facility] - [place], [address] [place] [id number] 0 Phone: () - 05/20 CBC w/ auto diff MCV fL 80.0 104.0 99.2 FINAL Gio Coronadoot a [facility] - [place], [address] [place] [id number] 0 Phone: () - 05/20 CBC w/ auto diff MCH pg 26.0 35.0 33.2 FINAL Gio chapman [facility] - [place], [address] [place] [id number] 0 Phone: () - 05/20 CBC w/ auto diff MCHC g/dL 30.0 35.0 33.4 FINAL Gio chapman [facility] - [place], [address] [place] [id number] 0 Phone: () - 05/20 CBC w/ auto diff MPV fL 9.5 13.4 10.4 FINAL Gio chapman [facility] - [place], [address] [place] [id number] 0 Phone: () - 05/20 CBC w/ auto diff RDW % 11.3 15.6 12.40 FINAL Gio chapman [facility] - [place], [address] [facility] [address] [facility] [place] [id number] 0 Phone: () - 05/20 TSH w/ refle x to free T4 TSH uIU/ml 0.32 5.0 0.56 Test performed at [facility] on a [employer] Immunoass ay Analyzer that uses an immunoenz ymometric sandwich assay for analysis. Patient testing should not be performed using multiple methodolo gies due to analytica l variation seen between test methodolo gies. FINAL Gio chapman [facility], [facility] [address] [place] [address] [id number] 0 Phone: () - 05/20 CMP Album in g/dL 3.2 5.2 4.1 FINAL Gio chapman [facility], [address] [place] [address] [id number] 0 Phone: () - 05/20 CMP Alkal ine phosp hatas e U/L 46.0 116.0 64 FINAL Gio chapman [facility], [address] [place] [address] [place] [id number] 0 Phone: () - 05/20 CMP ALT/S GPT U/L 7.0 40.0 24 FINAL Gio chapman [facility], [address] [facility] [id number] 0 Phone: () - 05/20 CMP AST/S GOT U/L 13.0 40.0 21 FINAL Gio chapman [facility] [address] [facility] [address] [facility] [id number] 0 Phone: () - 05/20 CMP BUN mg/dL 9.0 23.0 22.0 FINAL Gio chapman [place] [address] [address] [id number] 0 Phone: () - 05/20 CMP Calci um mg/dL 8.7 10.4 8.8 FINAL Gio chapman [place] [address] [id number] 0 Phone: () - 05/20 CMP Chlor marissa mmol/L 96.0 114.0 111 FINAL Gio chapman [place] [address] [id number] 0 Phone: () - 05/20 CMP CO2 [...] 96 hour stability window. FINAL Gio chapman [facility], [facility] [address] [id number] 0 Phone: () - 05/20 CMP Creat inine mg/dL 0.5 1.2 1.41 High FINAL Gio chapman [place] [address] [id number] 0 Phone: () - 05/20 CMP GFR estim ate ml/min /1.73m ^2 50.7 Low GFR is calculate d using the CKD-EPI equation. FINAL Gio chapman [facility], [facility] [address] [id number] 0 Phone: () - 05/20 CMP Gluco se mg/dL 73.0 126.0 148 High FINAL Gio chapman [facility] [place], [address] [facility] [id number] 0 Phone: () - 05/20 CMP Potas sium mmol/L 3.5 5.1 4.4 FINAL Gio chapman [facility], [address] [facility] [id number] 0 Phone: () - 05/20 CMP Sodiu m mmol/L 136.0 145.0 142 FINAL Gio chapman [facility], [address] [facility] [id number] 0 Phone: () - 05/20 CMP Bilir ubin, total mg/dL 0.3 1.2 0.4 FINAL Gio chapman [facility], [address] [facility] [id number] 0 Phone: () - 05/20 CMP Total prote in g/dL 5.7 8.2 6.8 FINAL Gio chapman [facility], [address] [facility] [address] [facility] [id number] 0 Phone: () - 08/11 CBC w/ auto diff Tatyana # (ANC) K/uL 1.6 6.6 3.7 FINAL Mary Jane Ko [facility] - [place] , [address] [place] [address] [address] [facility] [id number] 0 Phone: () - 08/11 CBC w/ auto diff Tatyana % % 43.0 74.0 64.9 FINAL Mary Jnae Ko [facility] - [place] , [address] [place] [address] [address] [facility] [id number] 0 Phone: () - 08/11 CBC w/ auto diff IG % % 0.0 0.5 0.4 FINAL Mary Jane Ko [facility] - [place] , [address] [place] [address] [address] [facility] [id number] 0 Phone: () - 08/11 CBC w/ auto diff IG # K/uL 0.0 0.03 0.02 FINAL Mary Jane Ko [facility] - [place] , [address] [place] [address] [address] [facility] [id number] 0 Phone: () - 08/11 CBC w/ auto diff LY % % 14.0 41.0 24.3 FINAL Mary Jane chapman [facility] - [place], [address] [facility] [address] [place] [id number] 0 Phone: () - 08/11 CBC w/ auto diff MO % % 6.0 15.0 8.1 FINAL Mary Jane chapman [facility] - [place], [address] [facility] [address] [place] [id number] Phone: () - 08/11 CBC w/ auto diff EO % % 0.0 7.0 1.9 FINAL Mary Jane [facility]man [facility] [place], [address] [facility] [address] [place] [id number] 0 Phone: () - 08/11 CBC w/ auto diff BA % % 0.0 2.0 0.4 FINAL Mary Jane chapman [facility] - [place], [address] [facility] [address] [place] [id number] 0 Phone: () - 08/11 CBC w/ auto diff LY # K/uL 0.4 3.6 1.4 FINAL Mary Jane chapman [facility] - [place], [address] [facility] [address] [place] [id number] 0 Phone: () - 08/11 CBC w/ auto diff MO # K/uL 0.2 1.3 0.5 FINAL Mary Jane chapman [facility] - [place], [address] [facility] [address] [place] [id number] 0 Phone: () - 08/11 CBC w/ auto diff EO # K/uL 0.0 0.6 0.1 FINAL Mary Jane chapman [facility] - [place], [address] [facility] [address] [place] [id number] 0 Phone: () - 08/11 CBC w/ auto diff BA # K/uL 0.0 0.2 0.0 FINAL Mary Jane Stefani [place] [facility] [place], [address] [place] [id number] 0 Phone: () - 08/11 CBC w/ auto diff NRBC % #/100W BC 0.0 0.2 0.0 FINAL Mary Jane Coronadoot a [facility] - [place], [address] [place] [id number] 0 Phone: () - 08/11 CBC w/ auto diff RBC M/uL 4.2 5.6 4.14 Low FINAL Mary Jane Coronadoot a [facility] - [place], [address] [place] [id number] 0 Phone: () - 08/11 CBC w/ auto diff HCT % 39.0 49.0 41.0 FINAL Mary Jane Coronadoot a [facility] - [place], [address] [place] [id number] 0 Phone: () - 08/11 CBC w/ auto diff MCV fL 80.0 104.0 99.0 FINAL Mary Jane Interiano a [facility] - [place], [address] [place] [id number] 0 Phone: () - 08/11 CBC w/ auto diff MCH pg 26.0 35.0 32.6 FINAL Mary Jane Coronadoot a [facility] - [place], [address] [place] [id number] 0 Phone: () - 08/11 CBC w/ auto diff MCHC g/dL 30.0 35.0 32.9 FINAL Mary Jane Coronadoot a [facility] - [place], [address] [place] [id number] 0 Phone: () - 08/11 CBC w/ auto diff MPV fL 9.5 13.4 10.4 FINAL Mary Jane Coronadoot a [facility] - [place], [address] [place] [id number] 0 Phone: () - 08/11 CBC w/ auto diff RDW % 11.3 15.6 12.80 FINAL Mary Jane Rodriguezsen [place] [facility] [place], [address] [place] [id number] 0 Phone: () - 08/11 CBC w/ auto diff WBC K/uL 3.0 8.9 5.7 FINAL Mary Jane Ko [place] [facility] [place], [address] [place] [id number] 0 Phone: () - 08/11 CBC w/ auto diff HGB g/dL 12.5 16.6 13.5 FINAL Mary Jane Ko [place] [place], [address] [place] [id number] 0 Phone: () - 08/11 CBC w/ auto diff PLT K/uL 113.0 364.0 146 FINAL Mary Jane Stefani [facility] [place], [address] [place] [id number] 0 Phone: () - 08/11 TSH w/ refle x to free T4 TSHR- v mIU/ml 0.47 4.68 2.08 FINAL Mary Jane Ko * [facility], [address] [facility] [id number] 08/11 CMP Album in g/dL 3.5 5.0 4.1 FINAL Mary Jane Ko * [place] [facility], [address] [facility] [id number] 0 08/11 CMP Alkal ine phosp hatas e U/L 36.0 125.0 71 FINAL Mary Jane Ko * [place] [facility], [address] [facility] [id number] 0 08/11 CMP ALT/S GPT U/L 0.0 49.0 25 FINAL Mary Jane Ko * [facility] [place], [address] [facility] [id number] 08/11 CMP AST/S GOT U/L 17.0 59.0 35 FINAL [facility], [address] [id number] 08/11 CMP BUN mg/dL 9.0 20.0 19.0 FINAL [facility] [address] [facility] [address] [id number] 0 08/11 CMP Calci um mg/dL 8.4 10.2 8.7 FINAL Mary Jane Elizabeth [facility] [address] [id number] 0 08/11 CMP Chlor marissa mmol/L 96.0 107.0 106 FINAL [facility], [address] [facility] [address] [id number] 0 08/11 CMP CO2 mmol/L 22.0 30.0 [...] 96 hour stability window. FINAL [facility], [address] [facility] [address] [id number] 0 08/11 CMP Creat inine mg/dL 0.66 1.25 1.50 High FINAL [facility] [address] [id number] 0 08/11 CMP GFR estim ate ml/min /1.73m ^2 47.0 Low GFR is calculate d using the CKD-EPI equation. FINAL Mary Jane Ko * [facility] [address] [place] [address] [id number] 0 08/11 CMP Gluco se mg/dL 74.0 100.0 147 High FINAL Mary Jane Ko * [facility] [address] [id number] 0 08/11 CMP Potas sium mmol/L 3.5 5.1 4.4 FINAL Mary Jane Ko * [facility], [address] [place] [address] [id number] 0 08/11 CMP Sodiu m mmol/L 137.0 145.0 139 FINAL Mary Jane Ko * [facility] [address] [id number] 0 08/11 CMP Bilir ubin, total mg/dL 0.2 1.3 0.5 FINAL Mary Jane Elizabeth [facility] [address] [id number] 0 08/11 CMP Total prote in g/dL 6.3 8.2 7.4 FINAL Mary Jane Elizabeth [facility] [address] [id number] 0 08/11 D-Dim er panel D-DIM ER, [...] l informati on, please refer to:[email or web address] Curefab/faq/ [email or web address](Th is link is being provided for informati onal/educ ational purposes only) FINAL Gio Lopez * [facility] [address] [place] [id number] 4 09/01 CBC w/ auto diff WBC K/uL 3.0 8.9 5.7 FINAL Gio chapman [facility] - [place], [address] [place] [id number] 0 Phone: () - 09/01 CBC w/ auto diff HGB g/dL 12.5 16.6 12.8 FINAL Gio chapman [facility] - [place], [address] [place] [id number] 0 Phone: () - 09/01 CBC w/ auto diff PLT K/uL 113.0 364.0 148 FINAL Gio chapman [facility] - [place], [address] [place] [id number] 0 Phone: () - 09/01 CBC w/ auto diff Tatyana # (ANC) K/uL 1.6 6.6 3.5 FINAL Gio chapman [facility] - [place], [address] [place] [id number] 0 Phone: () - 09/01 CBC w/ auto diff Tatyana % % 43.0 74.0 60.7 FINAL Gio chapman [facility] - [place], [address] [place] [id number] 0 Phone: () - 09/01 CBC w/ auto diff IG % % 0.0 0.5 0.4 FINAL Gio Lopez [place] [facility] [place], [address] [place] [id number] 0 Phone: () - 09/01 CBC w/ auto diff IG # K/uL 0.0 0.03 0.02 FINAL Gio Coronadoot a [facility] - [place], [address] [place] [id number] 0 Phone: () - 09/01 CBC w/ auto diff LY % % 14.0 41.0 24.9 FINAL Gio Coronadoot a [facility] - [place], [address] [place] [id number] 0 Phone: () - 09/01 CBC w/ auto diff MO % % 6.0 15.0 9.5 FINAL Gio Coronadoot a [facility] - [place], [address] [place] [id number] 0 Phone: () - 09/01 CBC w/ auto diff EO % % 0.0 7.0 4.1 FINAL Gio Coronadoot a [facility] - [place], [address] [place] [id number] 0 Phone: () - 09/01 CBC w/ auto diff BA % % 0.0 2.0 0.4 FINAL Gio Coronadoot a [facility] - [place], [address] [place] [id number] 0 Phone: () - 09/01 CBC w/ auto diff LY # K/uL 0.4 3.6 1.4 FINAL Gio Coronadoot a [facility] - [place], [address] [place] [id number] 0 Phone: () - 09/01 CBC w/ auto diff MO # K/uL 0.2 1.3 0.5 FINAL Gio Coronadoot a [facility] - [place], [address] [place] [id number] 0 Phone: () - 09/01 CBC w/ auto diff EO # K/uL 0.0 0.6 0.2 FINAL Gio Coronadoot a [facility] - [place], [address] [place] [id number] 0 Phone: () - 09/01 CBC w/ auto diff BA # K/uL 0.0 0.2 0.0 FINAL Gio Coronadoot a [facility] - [place], [address] [place] [id number] 0 Phone: () - 09/01 CBC w/ auto diff NRBC % #/100W BC 0.0 0.2 0.0 FINAL Gio Coronadoot a [facility] - [place], [address] [place] [id number] 0 Phone: () - 09/01 CBC w/ auto diff RBC M/uL 4.2 5.6 3.93 Low FINAL Gio Coronadoot a [facility] - [place], [address] [place] [id number] 0 Phone: () - 09/01 CBC w/ auto diff HCT % 39.0 49.0 38.5 Low FINAL Gio Coronadoot a [facility] - [place], [address] [place] [id number] 0 Phone: () - 09/01 CBC w/ auto diff MCV fL 80.0 104.0 98.0 FINAL Gio Coronadoot a [facility] - [place], [address] [place] [id number] 0 Phone: () - 09/01 CBC w/ auto diff MCH pg 26.0 35.0 32.6 FINAL Gio Coronadoot a [facility] - [place], [address] [place] [id number] 0 Phone: () - 09/01 CBC w/ auto diff MCHC g/dL 30.0 35.0 33.2 FINAL Gio Coronadoot a [facility] - [place], [address] [place] [id number] 0 Phone: () - 09/01 CBC w/ auto diff MPV fL 9.5 13.4 10.7 FINAL Gio Lopez [facility] [place], [address] [place] [id number] 0 Phone: () - 09/01 CBC w/ auto diff RDW % 11.3 15.6 13.10 FINAL Gio Lopez [place] [facility] [place], [address] [place] [id number] 0 Phone: () - 09/01 CMP Gluco se mg/dL 74.0 100.0 161 High FINAL Gio Lopez * [facility] [place], [address] [facility] [id number] 0 09/01 CMP Potas sium mmol/L 3.5 5.1 4.7 FINAL Gio Lopez * [place] [facility], [address] [facility] [id number] 0 09/01 CMP Sodiu m mmol/L 137.0 145.0 138 FINAL Gio Lopez * [facility] [place], [address] [facility] [id number] 0 09/01 CMP Bilir ubin, total mg/dL 0.2 1.3 0.5 FINAL Gio Lopez * [place] [facility], [address] [facility] [id number] 0 09/01 CMP Total prote in g/dL 6.3 8.2 6.9 FINAL Gio Lopez * [facility] [place], [address] [facility] [id number] 0 09/01 CMP Album in g/dL 3.5 5.0 4.0 FINAL Gio Lopez * [place] [facility], [address] [facility] [id number] 0 09/01 CMP Alkal ine phosp hatas e U/L 36.0 125.0 75 FINAL Gio Lopez * [facility], [address] [id number] 0 09/01 CMP ALT/S GPT U/L 0.0 49.0 32 FINAL Gio Lopez * [facility], [address] [id number] 0 09/01 CMP AST/S GOT U/L 17.0 59.0 41 FINAL Gio Lopez * [facility], [address] [facility] [address] [id number] 09/01 CMP BUN mg/dL 9.0 20.0 25.0 High FINAL Gio Elizabeth [facility], [address] [facility] [address] [id number] 09/01 CMP Calci um mg/dL 8.4 10.2 8.5 FINAL Gio Elizabeth [facility], [address] [facility] [address] [id number] 09/01 CMP Chlor marissa mmol/L 96.0 107.0 106 FINAL Gio Lopez * [facility], [address] [facility] [address] [id number] 09/01 CMP CO2 mmol/L 22.0 30.0 [...] hour stability window. FINAL Gio Lopez * [facility], [address] [id number] 0 09/01 CMP Creat inine mg/dL 0.66 1.25 1.50 High FINAL Gio Coronadoot a [facility], [address] [facility] [id number] 0 09/01 CMP GFR estim ate ml/min /1.73m ^2 47.0 Low GFR is calculate d using the CKD-EPI equation. FINAL Gio Coronadoot a [facility], [address] [facility] [id number] 09/01 TSH w/ refle x to free T4 TSHR- v mIU/ml 0.47 4.68 2.12 FINAL Gio Coronadoot a [facility], [address] [facility] [id number] 09/22 CBC w/ auto diff MCV fL 80.0 104.0 97.8 FINAL Mary Jane Interiano a [facility] - [place], [address] [place] [id number] 0 Phone: () - 09/22 CBC w/ auto diff MCH pg 26.0 35.0 32.3 FINAL Mary Jane Interiano a [facility] - [place], [address] [place] [id number] 0 Phone: () - 09/22 CBC w/ auto diff MPV fL 9.5 13.4 10.3 FINAL Mary Jane Interiano a [facility] - [place], [address] [place] [id number] 0 Phone: () - 09/22 CBC w/ auto diff RDW % 11.3 15.6 12.70 FINAL Mary Jane Coronadoot a [facility] - [place], [address] [place] [id number] 0 Phone: () - 09/22 CBC w/ auto diff WBC K/uL 3.0 8.9 5.4 FINAL Mary Jane chapman [facility] - [place], [address] [place] [id number] 0 Phone: () - 09/22 CBC w/ auto diff HGB g/dL 12.5 16.6 13.0 FINAL Mary Jane chapman [facility] - [place], [address] [place] [id number] 0 Phone: () - 09/22 CBC w/ auto diff PLT K/uL 113.0 364.0 159 FINAL Mary Jane Interiano a [facility] - [place], [address] [place] [id number] 0 Phone: () - 09/22 CBC w/ auto diff Tatyana # (ANC) K/uL 1.6 6.6 3.3 FINAL Mary Jane Interiano a [facility] - [place], [address] [place] [id number] 0 Phone: () - 09/22 CBC w/ auto diff Tatynaa % % 43.0 74.0 60.0 FINAL Mary Jane chapman [facility] - [place], [address] [place] [id number] 0 Phone: () - 09/22 CBC w/ auto diff IG % % 0.0 0.5 0.2 FINAL Mary Jane chapman [facility] - [place], [address] [place] [id number] 0 Phone: () - 09/22 CBC w/ auto diff IG # K/uL 0.0 0.03 0.01 FINAL Mary Jane Interiano a [facility] - [place], [address] [place] [id number] 0 Phone: () - 09/22 CBC w/ auto diff LY % % 14.0 41.0 28.4 FINAL Mary Jane Interiano a [facility] - [place], [address] [place] [id number] 0 Phone: () - 09/22 CBC w/ auto diff MO % % 6.0 15.0 9.4 FINAL Mary Jane chap[facility] - [place], [address] [facility] [address] [place] [id number] 0 Phone: () - 09/22 CBC w/ auto diff EO % % 0.0 7.0 1.8 FINAL Mary Jane chapman [facility] - [place], [address] [facility] [address] [place] [id number] 0 Phone: () - 09/22 CBC w/ auto diff BA % % 0.0 2.0 0.2 FINAL Mary Jane chapman [facility] - [place], [address] [facility] [address] [place] [id number] 0 Phone: () - 09/22 CBC w/ auto diff LY # K/uL 0.4 3.6 1.5 FINAL Mary Jane chapman [facility] - [place], [address] [facility] [address] [place] [id number] 0 Phone: () - 09/22 CBC w/ auto diff MO # K/uL 0.2 1.3 0.5 FINAL Mary Jane chapman [facility] - [place], [address] [facility] [address] [place] [id number] 0 Phone: () - 09/22 CBC w/ auto diff EO # K/uL 0.0 0.6 0.1 FINAL Mary Jane chapman [facility] - [place], [address] [facility] [address] [place] [id number] 0 Phone: () - 09/22 CBC w/ auto diff BA # K/uL 0.0 0.2 0.0 FINAL Mary Jane chapman [facility] - [place], [address] [facility] [address] [place] [id number] 0 Phone: () - 09/22 CBC w/ auto diff NRBC % #/100W BC 0.0 0.2 0.0 FINAL Mary Jane chapman [facility] - [place], [address] [place] [id number] 0 Phone: () - 09/22 CBC w/ auto diff RBC M/uL 4.2 5.6 4.03 Low FINAL Mary Jane Ko [facility] [place], [address] [place] [id number] 0 Phone: () - 09/22 CBC w/ auto diff HCT % 39.0 49.0 39.4 FINAL Mary Jane Coronadoot a [facility] - [place], [address] [place] [id number] 0 Phone: () - 09/22 CBC w/ auto diff MCHC g/dL 30.0 35.0 33.0 FINAL Mary Jane Coronadoot a [facility] - [place], [address] [place] [id number] 0 Phone: () - 09/22 CMP Album in g/dL 3.5 5.0 4.2 FINAL Mary Jane Ko * [facility] [place], [address] [facility] [id number] 0 09/22 CMP Alkal ine phosp hatas e U/L 36.0 125.0 70 FINAL Mary Janejass Ko * [facility] [place], [address] [facility] [id number] 0 09/22 CMP ALT/S GPT U/L 0.0 49.0 24 FINAL Mary Janejass Ko * [place] [facility] [place], [address] [facility] [place] [id number] 0 09/22 CMP AST/S GOT U/L 17.0 59.0 39 FINAL Mary Jane Ko * [place] [place], [address] [facility] [id number] 09/22 CMP BUN mg/dL 9.0 20.0 27.0 High FINAL Mary Jane chapman [facility] [address] [id number] 0 09/22 CMP Calci um mg/dL 8.4 10.2 8.9 FINAL Mary Jane Coronado ari [facility] [address] [id number] 0 09/22 CMP Chlor marissa mmol/L 96.0 107.0 103 FINAL Mary [place] [address] [facility] [address] [id number] 0 09/22 CMP CO2 mmol/L 22.0 30.0 [...] hour stability window. FINAL Mary Jane chapman [facility], [address] [place] [address] [address] [id number] 0 09/22 CMP Creat inine mg/dL 0.66 1.25 1.60 High FINAL Mary Jane Interiano [facility], [address] [place] [address] [address] [id number] 0 09/22 CMP GFR estim ate ml/min /1.73m ^2 43.5 Low GFR is calculate d using the CKD-EPI equation. FINAL Mary Jane Coronado ari [facility], [address] [place] [address] [address] [id number] 0 09/22 CMP Gluco se mg/dL 74.0 100.0 138 High FINAL Mary Jane Coronado ari [facility], [address] [facility] [id number] 0 09/22 CMP Potas sium mmol/L 3.5 5.1 4.8 FINAL Mary Jane Ko * [facility], [address] [facility] [id number] 0 09/22 CMP Sodiu m mmol/L 137.0 145.0 137 FINAL Mary Jane Ko * [facility], [address] [facility] [id number] 0 09/22 CMP Bilir ubin, total mg/dL 0.2 1.3 0.5 FINAL Mary Jane Ko * [facility], [address] [id number] 0 09/22 CMP Total prote in g/dL 6.3 8.2 7.2 FINAL Mary Jane Stefani * [facility], [address] [id number] 0 09/22 TSH w/ refle x to free T4 TSHR- v mIU/ml 0.47 4.68 1.01 FINAL Mary Jane Ko * [facility], [address] [facility] [id number] 0 10/13 TSH w/ refle x to free T4 TSHR- v mIU/ml 0.47 4.68 1.27 FINAL Gio Lopez * [facility], [address] [id number] 0 10/13 CMP Album in g/dL 3.5 5.0 4.1 FINAL Gio Lopez * [facility], [address] [facility] [id number] 0 10/13 CMP Alkal ine phosp hatas e U/L 36.0 125.0 69 FINAL [facility], [address] [facility] [address] [id number] 0 10/13 CMP ALT/S GPT U/L 0.0 49.0 22 FINAL Gio Elizabeth [facility], [address] [facility] [address] [id number] 0 10/13 CMP AST/S GOT U/L 17.0 59.0 32 FINAL Gio Elizabeth [facility] [address] [id number] 0 10/13 CMP BUN mg/dL 9.0 20.0 31.0 High FINAL [facility], [address] [facility] [address] [id number] 0 10/13 CMP Calci um mg/dL 8.4 10.2 8.0 Low FINAL Gio Elizabeth [facility] [address] [id number] 0 10/13 CMP Chlor marissa mmol/L 96.0 107.0 110 High FINAL [facility], [address] [facility] [address] [id number] 0 10/13 CMP CO2 mmol/L 22.0 30.0 [...] hour stability window. FINAL Gio Lopez * [facility], [address] [facility] [id number] 0 10/13 CMP Creat inine mg/dL 0.66 1.25 1.60 High FINAL Gio Lopez * [facility], [address] [facility] [id number] 0 10/13 CMP GFR estim ate ml/min /1.73m ^2 43.5 Low GFR is calculate d using the CKD-EPI equation. FINAL Gio Lopez * [facility], [address] [facility] [id number] 0 10/13 CMP Gluco se mg/dL 74.0 100.0 137 High FINAL Gio Lopez * [facility], [address] [id number] 0 10/13 CMP Sodiu m mmol/L 137.0 145.0 136 Low FINAL Gio John * [facility], [address] [facility] [id number] 0 10/13 CMP Potas sium mmol/L 3.5 5.1 5.0 FINAL Gio John * [facility], [address] [facility] [id number] 0 10/13 CMP Bilir ubin, total mg/dL 0.2 1.3 0.5 FINAL Gio John * [facility], [address] [facility] [id number] 0 10/13 CMP Total prote in g/dL 6.3 8.2 7.0 FINAL Gio John * [facility], [address] [facility] [id number] 0 10/13 CBC w/ auto diff WBC K/uL 3.0 8.9 5.4 FINAL Gio Coronadoot a [facility] [place], [address] [place] [id number] 0 Phone: () - 10/13 CBC w/ auto diff HGB g/dL 12.5 16.6 12.9 FINAL Gio Coronadoot a [facility] - [place], [address] [place] [id number] 0 Phone: () - 10/13 CBC w/ auto diff PLT K/uL 113.0 364.0 161 FINAL [facility] [place], [address] [place] [id number] 0 Phone: () - 10/13 CBC w/ auto diff Tatyana # (ANC) K/uL 1.6 6.6 3.3 FINAL [facility] [place], [address] [place] [id number] 0 Phone: () - 10/13 CBC w/ auto diff Tatyana % % 43.0 74.0 61.8 FINAL [facility] - [place], [address] [place] [id number] 0 Phone: () - 10/13 CBC w/ auto diff IG % % 0.0 0.5 0.2 FINAL [facility] - [place], [address] [place] [id number] 0 Phone: () - 10/13 CBC w/ auto diff IG # K/uL 0.0 0.03 0.01 FINAL [facility] [place], [address] [place] [id number] 0 Phone: () - 10/13 CBC w/ auto diff LY % % 14.0 41.0 28.0 FINAL [facility] [place], [address] [place] [id number] 0 Phone: () - 10/13 CBC w/ auto diff MO % % 6.0 15.0 7.4 FINAL [facility] [place], [address] [place] [id number] 0 Phone: () - 10/13 CBC w/ auto diff EO % % 0.0 7.0 2.4 FINAL [facility] [place], [address] [place] [id number] 0 Phone: () - 10/13 CBC w/ auto diff BA % % 0.0 2.0 0.2 FINAL [facility] [place], [address] [place] [id number] 0 Phone: () - 10/13 CBC w/ auto diff LY # K/uL 0.4 3.6 1.5 FINAL [facility] [place], [address] [place] [id number] 0 Phone: () - 10/13 CBC w/ auto diff MO # K/uL 0.2 1.3 0.4 FINAL [facility] - [place], [address] [place] [id number] 0 Phone: () - 10/13 CBC w/ auto diff EO # K/uL 0.0 0.6 0.1 FINAL [facility] [place], [address] [place] [id number] 0 Phone: () - 10/13 CBC w/ auto diff BA # K/uL 0.0 0.2 0.0 FINAL [facility] [place], [address] [place] [id number] 0 Phone: () - 10/13 CBC w/ auto diff NRBC % #/100W BC 0.0 0.2 0.0 FINAL [facility] [place], [address] [place] [id number] 0 Phone: () - 10/13 CBC w/ auto diff RBC M/uL 4.2 5.6 3.93 Low FINAL [facility] [place], [address] [place] [id number] 0 Phone: () - 10/13 CBC w/ auto diff HCT % 39.0 49.0 38.2 Low FINAL [facility] [place], [address] [place] [id number] 0 Phone: () - 10/13 CBC w/ auto diff MCV fL 80.0 104.0 97.2 FINAL [facility] [place], [address] [place] [id number] 0 Phone: () - 10/13 CBC w/ auto diff MCH pg 26.0 35.0 32.8 FINAL [facility] [place], [address] [place] [id number] 0 Phone: () - 10/13 CBC w/ auto diff MCHC g/dL 30.0 35.0 33.8 FINAL [facility] [place], [address] [place] [id number] 0 Phone: () - 10/13 CBC w/ auto diff MPV fL 9.5 13.4 10.3 FINAL [facility] [place], [address] [place] [id number] 0 Phone: () - 10/13 CBC w/ auto diff RDW % 11.3 15.6 12.80 FINAL [facility] [place], [address] [place] [id number] 0 Phone: () - 11/03 TSH w/ refle x to free T4 TSHR- v mIU/ml 0.47 4.68 0.58 FINAL [facility] * [facility], [address] [facility] [place] [id number] 0 11/03 CMP Album in g/dL 3.5 5.0 3.9 FINAL Gio Lopez * [facility], [address] [facility] [address] [facility] [address] [id number] 11/03 CMP Alkal ine phosp hatas e U/L 36.0 125.0 68 FINAL Gio Lopez * [facility], [address] [id number] 11/03 CMP ALT/S GPT U/L 0.0 49.0 26 FINAL Gio Lopez * [facility], [address] [id number] 11/03 CMP AST/S GOT U/L 17.0 59.0 39 FINAL Gio Lopez * [facility], [address] [id number] 0 11/03 CMP BUN mg/dL 9.0 20.0 25.0 High FINAL Gio Lopez * [facility], [facility] [address] [id number] 0 11/03 CMP Calci um mg/dL 8.4 10.2 8.5 FINAL Gio Lopez * [facility], [address] [id number] 0 11/03 CMP Chlor marissa mmol/L 96.0 107.0 108 High FINAL Gio Lopez * [facility], [address] [facility] [address] [facility] [address] [id number] 11/03 CMP CO2 mmol/L 22.0 30.0 [...] the 96 hour stability window. [facility], [address] [facility] [id number] 0 11/03 CMP Creat inine mg/dL 0.66 1.25 1.60 High [facility], [address] [id number] 0 11/03 CMP GFR estim ate ml/min /1.73m ^2 43.5 Low GFR is calculate d using the CKD-EPI equation. [facility], [address] [id number] 0 11/03 CMP Gluco se mg/dL 74.0 100.0 132 High [facility], [address] [id number] 0 11/03 CMP Potas sium mmol/L 3.5 5.1 4.5 [facility], [address] [id number] 0 11/03 CMP Sodiu m mmol/L 137.0 145.0 136 Low FINAL [facility]io [facility], [address] [id number] 0 11/03 CMP Bilir ubin, total mg/dL 0.2 1.3 0.5 FINAL [facility], [address] [id number] 0 11/03 CMP Total prote in g/dL 6.3 8.2 6.7 FINAL Gio Lopez * [place] [place], [address] [facility] [place] [id number] 0 11/03 CBC w/ auto diff WBC K/uL 3.0 8.9 4.8 FINAL [facility] [place], [address] [place] [id number] 0 Phone: () - 11/03 CBC w/ auto diff HGB g/dL 12.5 16.6 12.3 Low FINAL [facility] [place], [address] [place] [id number] 0 Phone: () - 11/03 CBC w/ auto diff PLT K/uL 113.0 364.0 156 FINAL [facility] [place], [address] [place] [id number] 0 Phone: () - 11/03 CBC w/ auto diff Tatyana # (ANC) K/uL 1.6 6.6 2.7 FINAL [facility] [place], [address] [place] [id number] 0 Phone: () - 11/03 CBC w/ auto diff Tatyana % % 43.0 74.0 56.6 FINAL [facility] [place], [address] [place] [id number] 0 Phone: () - 11/03 CBC w/ auto diff IG % % 0.0 0.5 0.4 FINAL [facility] [place], [address] [place] [id number] 0 Phone: () - 11/03 CBC w/ auto diff IG # K/uL 0.0 0.03 0.02 FINAL [facility] [place], [address] [place] [id number] 0 Phone: () - 11/03 CBC w/ auto diff LY % % 14.0 41.0 32.4 FINAL [facility] [place], [address] [place] [id number] 0 Phone: () - 11/03 CBC w/ auto diff MO % % 6.0 15.0 8.7 FINAL [facility] [place], [address] [place] [id number] 0 Phone: () - 11/03 CBC w/ auto diff EO % % 0.0 7.0 1.7 FINAL [facility] [place], [address] [place] [id number] 0 Phone: () - 11/03 CBC w/ auto diff BA % % 0.0 2.0 0.2 FINAL [facility] [place], [address] [place] [id number] 0 Phone: () - 11/03 CBC w/ auto diff LY # K/uL 0.4 3.6 1.6 FINAL [facility] [place], [address] [place] [id number] 0 Phone: () - 11/03 CBC w/ auto diff MO # K/uL 0.2 1.3 0.4 FINAL [facility] [place], [address] [place] [id number] 0 Phone: () - 11/03 CBC w/ auto diff EO # K/uL 0.0 0.6 0.1 FINAL [facility] [place], [address] [place] [id number] 0 Phone: () - 11/03 CBC w/ auto diff BA # K/uL 0.0 0.2 0.0 FINAL [facility] [place], [address] [place] [id number] 0 Phone: () - 11/03 CBC w/ auto diff NRBC % #/100W BC 0.0 0.2 0.0 FINAL [facility] [place], [address] [place] [id number] 0 Phone: () - 11/03 CBC w/ auto diff RBC M/uL 4.2 5.6 3.78 Low FINAL [facility] [place], [address] [place] [id number] 0 Phone: () - 11/03 CBC w/ auto diff HCT % 39.0 49.0 36.8 Low FINAL [facility] - [place], [address] [place] [id number] 0 Phone: () - 11/03 CBC w/ auto diff MCV fL 80.0 104.0 97.4 FINAL [facility] - [place], [address] [place] [id number] 0 Phone: () - 11/03 CBC w/ auto diff MCH pg 26.0 35.0 32.5 FINAL [facility] - [place], [address] [place] [id number] 0 Phone: () - 11/03 CBC w/ auto diff MCHC g/dL 30.0 35.0 33.4 FINAL [facility] [place], [address] [place] [id number] 0 Phone: () - 11/03 CBC w/ auto diff MPV fL 9.5 13.4 10.1 FINAL [facility] - [place], [address] [place] [id number] 0 Phone: () - 11/03 CBC w/ auto diff RDW % 11.3 15.6 12.60 FINAL [facility] [place], [address] [place] [id number] 0 Phone: () - 11/25 TSH w/ refle x to free T4 TSHR- v mIU/ml 0.47 4.68 1.53 FINAL Gio Lopez * [facility] [place], [address] [facility] [place] [id number] 0 11/25 CBC w/ auto diff WBC K/uL 3.0 8.9 5.1 FINAL [facility] [place], [address] [place] [id number] 0 Phone: () - 11/25 CBC w/ auto diff HGB g/dL 12.5 16.6 13.6 FINAL [facility] [place], [address] [place] [id number] 0 Phone: () - 11/25 CBC w/ auto diff PLT K/uL 113.0 364.0 153 FINAL [facility] [place], [address] [place] [id number] 0 Phone: () - 11/25 CBC w/ auto diff Tatyana # (ANC) K/uL 1.6 6.6 2.9 FINAL [facility] [place], [address] [place] [id number] 0 Phone: () - 11/25 CBC w/ auto diff Tatyana % % 43.0 74.0 55.7 FINAL [facility] [place], [address] [place] [id number] 0 Phone: () - 11/25 CBC w/ auto diff IG % % 0.0 0.5 0.4 FINAL [facility] [place], [address] [place] [id number] 0 Phone: () - 11/25 CBC w/ auto diff IG # K/uL 0.0 0.03 0.02 FINAL [facility] [place], [address] [place] [id number] 0 Phone: () - 11/25 CBC w/ auto diff LY % % 14.0 41.0 32.5 FINAL [facility] [place], [address] [place] [id number] 0 Phone: () - 11/25 CBC w/ auto diff MO % % 6.0 15.0 9.3 FINAL [facility] [place], [address] [place] [id number] 0 Phone: () - 11/25 CBC w/ auto diff EO % % 0.0 7.0 1.9 FINAL [facility] [place], [address] [place] [id number] 0 Phone: () - 11/25 CBC w/ auto diff BA % % 0.0 2.0 0.2 FINAL [facility] [place], [address] [place] [id number] 0 Phone: () - 11/25 CBC w/ auto diff LY # K/uL 0.4 3.6 1.7 FINAL [facility] [place], [address] [place] [id number] 0 Phone: () - 11/25 CBC w/ auto diff MO # K/uL 0.2 1.3 0.5 FINAL [facility] [place], [address] [place] [id number] 0 Phone: () - 11/25 CBC w/ auto diff EO # K/uL 0.0 0.6 0.1 FINAL [facility] [place], [address] [place] [id number] 0 Phone: () - 11/25 CBC w/ auto diff BA # K/uL 0.0 0.2 0.0 FINAL [facility] - [place], [address] [place] [id number] 0 Phone: () - 11/25 CBC w/ auto diff NRBC % #/100W BC 0.0 0.2 0.0 FINAL [facility] [place], [address] [place] [id number] 0 Phone: () - 11/25 CBC w/ auto diff RBC M/uL 4.2 5.6 4.16 Low FINAL [facility] [place], [address] [place] [id number] 0 Phone: () - 11/25 CBC w/ auto diff HCT % 39.0 49.0 41.5 FINAL [facility] [place], [address] [place] [id number] 0 Phone: () - 11/25 CBC w/ auto diff MCV fL 80.0 104.0 99.8 FINAL [facility] [place], [address] [place] [id number] 0 Phone: () - 11/25 CBC w/ auto diff MCH pg 26.0 35.0 32.7 FINAL [facility] - [place], [address] [place] [id number] 0 Phone: () - 11/25 CBC w/ auto diff MCHC g/dL 30.0 35.0 32.8 FINAL [facility] - [place], [address] [place] [id number] 0 Phone: () - 11/25 CBC w/ auto diff MPV fL 9.5 13.4 10.4 FINAL [facility] - [place], [address] [place] [id number] 0 Phone: () - 11/25 CBC w/ auto diff RDW % 11.3 15.6 12.70 FINAL [facility], [address] [facility] [place] [id number] 0 Phone: ( - 11/25 CMP Album in g/dL 3.5 5.0 4.1 FINAL Gio Lopez * [place] [facility], [address] [facility] [id number] 0 11/25 CMP Alkal ine phosp hatas e U/L 36.0 125.0 62 FINAL Gio Lopez * [place], [address] [facility] [id number] 0 11/25 CMP ALT/S GPT U/L 0.0 49.0 24 FINAL Gio Lopez * [facility] [facility], [address] [facility] [id number] 0 11/25 CMP AST/S GOT U/L 17.0 59.0 35 FINAL Gio Lopez * [facility], [address] [facility] [id number] 0 11/25 CMP BUN mg/dL 9.0 20.0 20.0 FINAL Gio Lopez * [facility], [address] [facility] [id number] 0 11/25 CMP Calci um mg/dL 8.4 10.2 9.4 FINAL Gio Lopez * [facility], [address] [facility] [id number] 0 11/25 CMP Chlor marissa mmol/L 96.0 107.0 103 FINAL Gio Lopez * [place] [facility], [address] [facility] [id number] 0 11/25 CMP CO2 mmol/L 22.0 30.0 [...] the 96 hour stability window. [facility], [address] [id number] 0 11/25 CMP Creat inine mg/dL 0.66 1.25 1.60 High [facility] [address] [id number] 0 11/25 CMP GFR estim ate ml/min /1.73m ^2 43.4 Low GFR is calculate d using the CKD-EPI equation. [facility], [address] [id number] 0 11/25 CMP Gluco se mg/dL 74.0 100.0 98 [facility] [address] [id number] 0 11/25 CMP Potas sium mmol/L 3.5 5.1 5.7 Critica l protein chemist ry value tasia Costa ninoska High [facility], [address] [id number] 0 11/25 CMP Sodiu m mmol/L 137.0 145.0 138 [facility], [address] [id number] 0 11/25 CMP Bilir ubin, total mg/dL 0.2 1.3 0.5 [facility], [address] [facility] [id number] 0 11/25 CMP Total prote in g/dL 6.3 8.2 7.2 FINAL Gio Lopez * [facility] [place], [address] [facility] [place] [id number] 0 12/01 iSTAT Na+/K +/Cl- panel Sodiu m, iSTAT mmol/L 138.0 146.0 135 Low Reference range adjusted 0 with implement ation of I-Stat 8+ cartridge . FINAL Mary Jane [facility] [place], [address] [facility] [address] [facility] [id number] 0 Phone: () - 12/01 iSTAT Na+/K +/Cl- panel Potas sium, iSTAT mmol/L 3.5 4.9 4.9 Reference range adjusted 0 with implement ation of I-Stat 8+ cartridge . FINAL Mary Jane [facility] - [place], [address] [facility] [address] [facility] [id number] 0 Phone: () - 12/01 iSTAT Na+/K +/Cl- panel Chlor marissa, iSTAT mmol/L 98.0 109.0 104 Reference range adjusted 0 with implement ation of I-Stat 8+ cartridge . FINAL Mary Jane [facility] - [place], [address] [facility] [address] [facility] [id number] 0 Phone: () - 12/15 CMP Album in g/dL 3.5 5.0 4.2 FINAL Gio Lopez * [facility] [place], [address] [facility] [id number] 0 12/15 CMP Alkal ine phosp hatas e U/L 36.0 125.0 59 FINAL Gio Lopez * [facility] [place], [address] [facility] [id number] 0 12/15 CMP ALT/S GPT U/L 0.0 49.0 22 FINAL Gio John * [facility], [address] [facility] [address] [id number] 0 12/15 CMP AST/S GOT U/L 17.0 59.0 40 FINAL Gio Lopez * [facility], [address] [facility] [address] [facility] [address] [id number] 12/15 CMP BUN mg/dL 9.0 20.0 30.0 High FINAL Gio Lopez * [facility], [address] [facility] [address] [id number] 12/15 CMP Calci um mg/dL 8.4 10.2 8.8 FINAL Gio Lopez * [facility], [address] [facility] [address] [id number] 0 12/15 CMP Chlor marissa mmol/L 96.0 107.0 109 High FINAL Gio John * [facility], [address] [id number] 0 12/15 CMP CO2 mmol/L 22.0 30.0 [...] hour stability window. FINAL Gio Lopez * [facility], [address] [id number] 0 12/15 CMP Creat inine mg/dL 0.66 1.25 1.60 High FINAL Gio Lopez * [facility], [address] [facility] [id number] 0 12/15 CMP GFR estim ate ml/min /1.73m ^2 43.4 Low GFR is calculate d using the CKD-EPI equation. FINAL Gio Lopez * [facility], [address] [id number] 0 12/15 CMP Gluco se mg/dL 74.0 100.0 131 High FINAL Gio Lopez * [facility], [address] [id number] 0 12/15 CMP Potas sium mmol/L 3.5 5.1 4.5 FINAL Gio Lopez * [facility], [address] [id number] 0 12/15 CMP Sodiu m mmol/L 137.0 145.0 137 FINAL Gio Lopez * [facility], [address] [id number] 0 12/15 CMP Bilir ubin, total mg/dL 0.2 1.3 0.5 FINAL Gio Lopez * [facility], [address] [id number] 0 12/15 CMP Total prote in g/dL 6.3 8.2 7.2 FINAL Gio Lopez * [facility], [address] [id number] 0 12/15 TSH w/ refle x to free T4 TSH uIU/mL 0.47 4.68 2.93 FINAL Gio Lopez * [facility], [address] [id number] 0 12/15 CBC w/ auto diff WBC K/uL 3.0 8.9 4.6 FINAL Gio Coronadoot a[facility] - [place], [address] [place] [id number] 0 Phone: () - 12/15 CBC w/ auto diff HGB g/dL 12.5 16.6 13.4 FINAL Gio [facility] - [place], [address] [place] [id number] 0 Phone: () - 12/15 CBC w/ auto diff PLT K/uL 113.0 364.0 147 FINAL Gio [facility] - [place], [address] [place] [id number] 0 Phone: () - 12/15 CBC w/ auto diff Tatyana # (ANC) K/uL 1.6 6.6 3.1 FINAL [facility] - [place], [address] [place] [id number] 0 Phone: () - 12/15 CBC w/ auto diff Tatyana % % 43.0 74.0 68.2 FINAL [facility] - [place], [address] [place] [id number] 0 Phone: () - 12/15 CBC w/ auto diff IG % % 0.0 0.5 0.2 FINAL Gio Coron[facility]oot [facility] - [place], [address] [place] [id number] 0 Phone: () - 12/15 CBC w/ auto diff IG # K/uL 0.0 0.03 0.01 FINAL Gio [facility] - [place], [address] [place] [id number] 0 Phone: () - 12/15 CBC w/ auto diff LY % % 14.0 41.0 19.7 FINAL Gio [facility] - [place], [address] [place] [id number] 0 Phone: () - 12/15 CBC w/ auto diff MO % % 6.0 15.0 9.0 FINAL [facility] - [place], [address] [place] [id number] 0 Phone: () - 12/15 CBC w/ auto diff EO % % 0.0 7.0 2.2 FINAL [facility] - [place], [address] [place] [id number] 0 Phone: () - 12/15 CBC w/ auto diff BA % % 0.0 2.0 0.7 FINAL [facility] - [place], [address] [facility] [address] [place] [id number] 0 Phone: () - 12/15 CBC w/ auto diff LY # K/uL 0.4 3.6 0.9 FINAL [facility] - [place], [address] [facility] [address] [place] [id number] 0 Phone: () - 12/15 CBC w/ auto diff MO # K/uL 0.2 1.3 0.4 FINAL [facility] - [place], [address] [facility] [address] [place] [id number] 0 Phone: () - 12/15 CBC w/ auto diff EO # K/uL 0.0 0.6 0.1 FINAL [facility] - [place], [address] [facility] [address] [place] [id number] 0 Phone: () - 12/15 CBC w/ auto diff BA # K/uL 0.0 0.2 0.0 FINAL [facility] - [place], [address] [place] [id number] 0 Phone: () - 12/15 CBC w/ auto diff NRBC % #/100W BC 0.0 0.2 0.0 FINAL [facility] - [place], [address] [facility] [address] [place] [id number] 0 Phone: () - 12/15 CBC w/ auto diff RBC M/uL 4.2 5.6 4.03 Low FINAL Gio Coron[facility]oot [facility] - [place], [address] [facility] [address] [place] [id number] 0 Phone: () - 12/15 CBC w/ auto diff HCT % 39.0 49.0 40.1 FINAL Gio [facility] - [place], [address] [facility] [address] [place] [id number] 0 Phone: () - 12/15 CBC w/ auto diff MCV fL 80.0 104.0 99.5 FINAL Gio Interiano a [facility] - [place], [address] [facility] [address] [place] [id number] 0 Phone: () - 12/15 CBC w/ auto diff MCH pg 26.0 35.0 33.3 FINAL Gio Coronadoot a [facility] - [place], [address] [facility] [address] [place] [id number] 0 Phone: () - 12/15 CBC w/ auto diff MCHC g/dL 30.0 35.0 33.4 FINAL Gio Coronadoot [facility] - [place], [address] [facility] [address] [place] [id number] 0 Phone: () - 12/15 CBC w/ auto diff MPV fL 9.5 13.4 10.5 FINAL Gio Coronadoot [facility] - [place], [address] [facility] [address] [place] [id number] 0 Phone: () - 12/15 CBC w/ auto diff RDW % 11.3 15.6 12.60 FINAL Gio Coronadoot [facility] - [place], [address] [facility] [address] [place] [id number] 0 Phone: () - 01/05 CMP Album in g/dL 3.5 5.0 3.9 FINAL Gio Lopez * [facility] [place], [address] [place] [id number] 0 01/05 CMP Alkal ine phosp hatas e U/L 36.0 125.0 65 FINAL Gio Lopez * [facility] [address] [facility] [address] [id number] 0 01/05 CMP ALT/S GPT U/L 0.0 49.0 27 FINAL Gio Lopez * [facility], [address] [facility] [address] [id number] 0 01/05 CMP AST/S GOT U/L 17.0 59.0 35 FINAL Gio Lopez * [facility], [address] [facility] [address] [id number] 0 01/05 CMP BUN mg/dL 9.0 20.0 27.0 High FINAL Gio Lopez * [facility], [address] [facility] [address] [id number] 0 01/05 CMP Calci um mg/dL 8.4 10.2 8.7 FINAL Gio Lopez * [facility], [address] [facility] [address] [id number] 0 01/05 CMP Chlor marissa mmol/L 96.0 107.0 109 High FINAL Gio Lopez * [facility], [address] [facility] [address] [id number] 01/05 CMP CO2 mmol/L 22.0 30.0 [...] hour stability window. FINAL Gio Lopez * [facility], [address] [facility] [id number] 0 01/05 CMP Creat inine mg/dL 0.66 1.25 1.70 High FINAL Gio Lopez * [facility], [address] [facility] [id number] 0 01/05 CMP GFR estim ate ml/min /1.73m ^2 40.4 Low GFR is calculate d using the CKD-EPI equation. FINAL Gio John * [facility]neot a [facility], [address] [id number] 0 01/05 CMP Gluco se mg/dL 74.0 100.0 98 FINAL Gio Lopez * [facility], [address] [id number] 0 01/05 CMP Potas sium mmol/L 3.5 5.1 5.0 FINAL Gio Lopez * [facility], [address] [id number] 0 01/05 CMP Sodiu m mmol/L 137.0 145.0 138 FINAL Gio Lopez * [facility], [address] [id number] 0 01/05 CMP Bilir ubin, total mg/dL 0.2 1.3 0.6 FINAL Gio Lopez * [facility], [address] [id number] 0 01/05 CMP Total prote in g/dL 6.3 8.2 7.0 FINAL Gio Lopez * [facility], [address] [facility] [id number] 0 01/05 TSH w/ refle x to free T4 TSH uIU/mL 0.47 4.68 1.34 FINAL Gio Lopez * [place] [facility] [place], [address] [facility] [place] [id number] 0 01/05 CBC w/ auto diff WBC K/uL 3.0 8.9 5.1 FINAL Gio Coronadoot [facility] - [place], [address] [place] [id number] 0 Phone: () - 01/05 CBC w/ auto diff HGB g/dL 12.5 16.6 13.1 FINAL Gio Coronadoot [facility] - [place], [address] [place] [id number] 0 Phone: () - 01/05 CBC w/ auto diff PLT K/uL 113.0 364.0 139 FINAL Gio Coron[facility] - [place], [address] [place] [id number] 0 Phone: () - 01/05 CBC w/ auto diff Tatyana # (ANC) K/uL 1.6 6.6 3.4 FINAL Gio [facility] - [place], [address] [place] [id number] 0 Phone: () - 01/05 CBC w/ auto diff Tatyana % % 43.0 74.0 67.4 FINAL Gio [facility] - [place], [address] [place] [id number] 0 Phone: () - 01/05 CBC w/ auto diff IG % % 0.0 0.5 0.6 High FINAL Gio [facility] - [place], [address] [place] [id number] 0 Phone: () - 01/05 CBC w/ auto diff IG # K/uL 0.0 0.03 0.03 FINAL Gio [facility] - [place], [address] [place] [id number] 0 Phone: () - 01/05 CBC w/ auto diff LY % % 14.0 41.0 21.3 FINAL Gio chapman [facility] - [place], [address] [place] [id number] 0 Phone: () - 01/05 CBC w/ auto diff MO % % 6.0 15.0 8.7 FINAL Gio chapman [facility] - [place], [address] [place] [id number] 0 Phone: () - 01/05 CBC w/ auto diff EO % % 0.0 7.0 1.6 FINAL Gio chapman [facility] - [place], [address] [place] [id number] 0 Phone: () - 01/05 CBC w/ auto diff BA % % 0.0 2.0 0.4 FINAL Gio chapman [facility] - [place], [address] [place] [id number] 0 Phone: () - 01/05 CBC w/ auto diff LY # K/uL 0.4 3.6 1.1 FINAL Gio chapman [facility] - [place], [address] [place] [id number] 0 Phone: () - 01/05 CBC w/ auto diff MO # K/uL 0.2 1.3 0.4 FINAL Gio chapman [facility] - [place], [address] [place] [id number] 0 Phone: () - 01/05 CBC w/ auto diff EO # K/uL 0.0 0.6 0.1 FINAL Gio chapman [facility] - [place], [address] [place] [id number] 0 Phone: () - 01/05 CBC w/ auto diff BA # K/uL 0.0 0.2 0.0 FINAL Gio chapamn Oncology - [place], [address] [place] [id number] 0 Phone: () - 01/05 CBC w/ auto diff NRBC % #/100W BC 0.0 0.2 0.0 FINAL Gio Coron[facility] - [place], [address] [place] [id number] 0 Phone: () - 01/05 CBC w/ auto diff RBC M/uL 4.2 5.6 3.92 Low FINAL Gio [facility] - [place], [address] [place] [id number] 0 Phone: () - 01/05 CBC w/ auto diff HCT % 39.0 49.0 39.1 FINAL Gio [facility] - [place], [address] [place] [id number] 0 Phone: () - 01/05 CBC w/ auto diff MCV fL 80.0 104.0 99.7 FINAL Gio Coron[facility] - [place], [address] [place] [id number] 0 Phone: () - 01/05 CBC w/ auto diff MCH pg 26.0 35.0 33.4 FINAL Gio Interiano [facility] - [place], [address] [place] [id number] 0 Phone: () - 01/05 CBC w/ auto diff MCHC g/dL 30.0 35.0 33.5 FINAL Gio Coron[facility] - [place], [address] [place] [id number] 0 Phone: () - 01/05 CBC w/ auto diff MPV fL 9.5 13.4 9.7 FINAL G[facility] - [place], [address] [place] [id number] 0 Phone: () - 01/05 CBC w/ auto diff RDW % 11.3 15.6 13.00 FINAL Gio [facility] - [place], [address] [place] [id number] 0 Phone: () - 01/26 CBC w/ auto diff WBC K/uL 3.0 8.9 4.5 FINAL Mary Jane chapman [facility] - [place], [address] [place] [id number] 0 Phone: () - 01/26 CBC w/ auto diff HGB g/dL 12.5 16.6 13.1 FINAL Mary Jane chapman [facility] - [place], [address] [facility] [address] [place] [id number] 0 Phone: () - 01/26 CBC w/ auto diff PLT K/uL 113.0 364.0 155 FINAL Mary Jane Interiano ari [facility] - [place], [address] [facility] [address] [place] [id number] 0 Phone: () - 01/26 CBC w/ auto diff Tatyana # (ANC) K/uL 1.6 6.6 2.9 FINAL Mary Jane chapman [facility] - [place], [address] [facility] [address] [place] [id number] 0 Phone: () - 01/26 CBC w/ auto diff Tatyana % % 43.0 74.0 64.7 FINAL Mary Jane Interiano ari [facility] - [place], [address] [facility] [address] [place] [id number] 0 Phone: () - 01/26 CBC w/ auto diff IG % % 0.0 0.5 0.4 FINAL Mary Jane chapman [facility] - [place], [address] [facility] [address] [place] [id number] 0 Phone: () - 01/26 CBC w/ auto diff IG # K/uL 0.0 0.03 0.02 FINAL Mary Jane chapman [facility] - [place], [address] [place] [id number] 0 Phone: () - 01/26 CBC w/ auto diff LY % % 14.0 41.0 23.4 FINAL Mary Jane Interiano [facility] - [place], [address] [place] [id number] 0 Phone: () - 01/26 CBC w/ auto diff MO % % 6.0 15.0 9.8 FINAL Mary Jane chapman [facility] - [place], [address] [place] [id number] 0 Phone: () - 01/26 CBC w/ auto diff EO % % 0.0 7.0 1.3 FINAL Mary Jane Interiano [facility] - [place], [address] [place] [id number] 0 Phone: () - 01/26 CBC w/ auto diff BA % % 0.0 2.0 0.4 FINAL Mary Jane chapman [facility] - [place], [address] [place] [id number] 0 Phone: () - 01/26 CBC w/ auto diff LY # K/uL 0.4 3.6 1.1 FINAL Mary Jane chapman [facility] - [place], [address] [place] [id number] 0 Phone: () - 01/26 CBC w/ auto diff MO # K/uL 0.2 1.3 0.4 FINAL Mary Jane chapman [facility] - [place], [address] [place] [id number] 0 Phone: () - 01/26 CBC w/ auto diff EO # K/uL 0.0 0.6 0.1 FINAL Mary Jane chapman [facility] - [place], [address] [place] [id number] 0 Phone: () - 01/26 CBC w/ auto diff BA # K/uL 0.0 0.2 0.0 FINAL Mary Jane Coronadoot a [facility] - [place], [address] [place] [id number] 0 Phone: () - 01/26 CBC w/ auto diff NRBC % #/100W BC 0.0 0.2 0.0 FINAL Mary Jane chapman [facility] - [place], [address] [facility] [address] [place] [id number] 0 Phone: () - 01/26 CBC w/ auto diff RBC M/uL 4.2 5.6 3.98 Low FINAL Mary Jane chapman [facility] - [place], [address] [facility] [address] [place] [id number] 0 Phone: () - 01/26 CBC w/ auto diff HCT % 39.0 49.0 39.5 FINAL Mary Jane chapman [facility] - [place], [address] [facility] [address] [place] [id number] 0 Phone: () - 01/26 CBC w/ auto diff MCV fL 80.0 104.0 99.2 FINAL Mary Jane chapman [facility] - [place], [address] [facility] [address] [place] [id number] 0 Phone: () - 01/26 CBC w/ auto diff MCH pg 26.0 35.0 32.9 FINAL Mary Jane chapman [facility] - [place], [address] [facility] [address] [place] [id number] 0 Phone: () - 01/26 CBC w/ auto diff MCHC g/dL 30.0 35.0 33.2 FINAL Mary Jane chapman [facility] - [place], [address] [facility] [address] [place] [id number] 0 Phone: () - 01/26 CBC w/ auto diff MPV fL 9.5 13.4 10.3 FINAL Mary Jane chapman [facility] - [place], [address] [facility] [address] [place] [id number] 0 Phone: () - 01/26 CBC w/ auto diff RDW % 11.3 15.6 12.90 FINAL Mary Jane chapman [facility] - [place], [address] [place] [id number] 0 Phone: () - 01/26 TSH w/ refle x to free T4 TSH uIU/mL 0.47 4.68 1.54 FINAL Mary Jane chapman On[facility], [address] [id number] 0 01/26 CMP Chlor marissa mmol/L 96.0 107.0 108 High FINAL Mary Jane chapman [facility], [address] [id number] 0 01/26 CMP CO2 mmol/L 22.0 30.0 [...] hour stability window. FINAL Mary Jane chapman [facility], [address] [id number] 0 01/26 CMP Creat inine mg/dL 0.66 1.25 1.70 High FINAL Mary Jane chapman [facility], [address] [id number] 0 01/26 CMP GFR estim ate ml/min /1.73m ^2 40.4 Low GFR is calculate d using the CKD-EPI equation. FINAL Mary Jane chapman [facility], [address] [id number] 0 01/26 CMP Gluco se mg/dL 74.0 100.0 138 High FINAL Mary Jane chapman [facility], [address] [id number] 0 01/26 CMP Potas sium mmol/L 3.5 5.1 4.9 FINAL Mary Jane Ko * [facility], [address] [facility] [address] [id number] 0 01/26 CMP Sodiu m mmol/L 137.0 145.0 139 FINAL Mary Jane Ko * [facility], [facility] [address] [id number] 0 01/26 CMP Bilir ubin, total mg/dL 0.2 1.3 0.5 FINAL Mary Jane Stefani * [facility], [facility] [address] [id number] 0 01/26 CMP Total prote in g/dL 6.3 8.2 6.9 FINAL Mary Jane Stefani * [facility] [address] [id number] 0 01/26 CMP Album in g/dL 3.5 5.0 3.8 FINAL Mary Jane Stefani * [facility], [facility] [address] [id number] 0 01/26 CMP Alkal ine phosp hatas e U/L 36.0 125.0 71 FINAL Mary Janejass Ko * [facility], [address] [facility] [address] [id number] 0 01/26 CMP ALT/S GPT U/L 0.0 49.0 25 FINAL Mary Jane Stefani * [facility], [address] [facility] [address] [id number] 0 01/26 CMP AST/S GOT U/L 17.0 59.0 35 FINAL Mary Jane Ko * [facility], [address] [facility] [place] [id number] 0 01/26 CMP BUN mg/dL 9.0 20.0 26.0 High FINAL Mary Jane Ko * [place] [facility] [place], [address] [facility] [place] [id number] 0 01/26 CMP Calci um mg/dL 8.4 10.2 8.7 FINAL Mary Jane Ko * [place] [facility] [place], [address] [facility] [place] [id number] 0 02/16 CBC w/ auto diff WBC K/uL 3.0 8.9 6.1 FINAL Mary Jane Ko [place] [facility] [place], [address] [place] [id number] 0 Phone: () - 02/16 CBC w/ auto diff HGB g/dL 12.5 16.6 12.8 FINAL Mary Jane Coronadoot [facility] - [place], [address] [place] [id number] 0 Phone: () - 02/16 CBC w/ auto diff PLT K/uL 113.0 364.0 147 FINAL Mary Jane [facility] - [place], [address] [place] [id number] 0 Phone: () - 02/16 CBC w/ auto diff Tatyana # (ANC) K/uL 1.6 6.6 4.0 FINAL Mary Jane Ko [place] [facility] [place], [address] [place] [id number] 0 Phone: () - 02/16 CBC w/ auto diff Tatyana % % 43.0 74.0 65.9 FINAL Mary Jane Ko [place] [facility] [place], [address] [place] [id number] 0 Phone: () - 09/26 /2024 CBC w/ auto diff IG % % 0.0 0.5 0.3 FINAL Mary Jane Coronadoot ari [facility] - [place], [address] [place] [id number] 0 Phone: () - 02/16 CBC w/ auto diff IG # K/uL 0.0 0.03 0.02 FINAL Mary Jane chapman [facility] - [place], [address] [place] [id number] 0 Phone: () - 02/16 CBC w/ auto diff LY % % 14.0 41.0 23.1 FINAL Mary Jane Coronadoot ari [facility] - [place], [address] [place] [id number] 0 Phone: () - 02/16 CBC w/ auto diff MO % % 6.0 15.0 8.7 FINAL Mary Jane [facility] - [place], [address] [place] [id number] 0 Phone: () - 02/16 CBC w/ auto diff EO % % 0.0 7.0 1.7 FINAL Mary Jane chapman [facility] - [place], [address] [place] [id number] 0 Phone: () - 02/16 CBC w/ auto diff BA % % 0.0 2.0 0.3 FINAL Mary Jane Interiano [facility] - [place], [address] [place] [id number] 0 Phone: () - 02/16 CBC w/ auto diff LY # K/uL 0.4 3.6 1.4 FINAL Mary Jane [facility] - [place], [address] [place] [id number] 0 Phone: () - 02/16 CBC w/ auto diff MO # K/uL 0.2 1.3 0.5 FINAL Mary Jane [facility] - [place], [address] [place] [id number] 0 Phone: () - 02/16 CBC w/ auto diff EO # K/uL 0.0 0.6 0.1 FINAL Mary Jane chapman [facility] - [place], [address] [facility] [address] [place] [id number] 0 Phone: () - 02/16 CBC w/ auto diff BA # K/uL 0.0 0.2 0.0 FINAL Mary Jane chpaman [facility]cology - [place], [address] [facility] [address] [place] [id number] 0 Phone: () - 02/16 CBC w/ auto diff NRBC % #/100W BC 0.0 0.2 0.0 FINAL Mary Jane chapman [facility] - [place], [address] [facility] [address] [place] [id number] 0 Phone: () - 02/16 CBC w/ auto diff RBC M/uL 4.2 5.6 3.85 Low FINAL Mary Jane chapman [facility] - [place], [address] [facility] [address] [place] [id number] 0 Phone: () - 02/16 CBC w/ auto diff HCT % 39.0 49.0 38.3 Low FINAL Mary Jane chapman [facility] - [place], [address] [facility] [address] [place] [id number] 0 Phone: () - 02/16 CBC w/ auto diff MCV fL 80.0 104.0 99.5 FINAL Mary Jane chapman [facility] - [place], [address] [facility] [address] [place] [id number] 0 Phone: () - 02/16 CBC w/ auto diff MCH pg 26.0 35.0 33.2 FINAL Mary Jane chapman [facility] - [place], [address] [facility] [address] [place] [id number] 0 Phone: () - 02/16 CBC w/ auto diff MCHC g/dL 30.0 35.0 33.4 FINAL Mary Jane Stefani [facility] [place], [address] [place] [id number] 0 Phone: () - 02/16 CBC w/ auto diff MPV fL 9.5 13.4 10.6 FINAL Mary Jane Ko [facility] [facility] [place], [address] [place] [id number] 0 Phone: () - 02/16 CBC w/ auto diff RDW % 11.3 15.6 12.90 FINAL Mary Jane Ko [place] [facility] [place], [address] [place] [id number] 0 Phone: () - 02/16 TSH w/ refle x to free T4 TSH uIU/mL 0.47 4.68 0.97 FINAL Mary Jane Ko * [place] [facility], [address] [facility] [id number] 0 02/16 CMP Album in g/dL 3.5 5.0 3.9 FINAL Mary Jane Ko * [place] [facility], [address] [facility] [id number] 0 02/16 CMP Alkal ine phosp hatas e U/L 36.0 125.0 61 FINAL Mary Jane Ko * [place] [facility], [address] [facility] [id number] 0 02/16 CMP ALT/S GPT U/L 0.0 49.0 20 FINAL Mary Jane Ko * [place] [facility], [address] [facility] [id number] 0 02/16 CMP BUN mg/dL 9.0 20.0 34.0 High FINAL Mary Jane Ko * [place] [facility], [address] [facility] [id number] 0 02/16 CMP Calci um mg/dL 8.4 10.2 8.7 FINAL Mary Jane Coronado ari [facility], [facility] [address] [id number] 0 02/16 CMP Chlor marissa mmol/L 96.0 107.0 109 High FINAL [facility] [address] [id number] 0 02/16 CMP CO2 mmol/L 22.0 30.0 [...] hour stability window. FINAL Mary Jane chapman [facility], [address] [place] [address] [address] [id number] 0 02/16 CMP Creat inine mg/dL 0.66 1.25 1.80 High FINAL Mary Jane chapman [facility], [address] [place] [address] [place] [address] [id number] 0 02/16 CMP GFR estim ate ml/min /1.73m ^2 37.7 Low GFR is calculate d using the CKD-EPI equation. FINAL Mary Jane Interiano [facility], [address] [place] [address] [address] [id number] 0 02/16 CMP Gluco se mg/dL 74.0 100.0 116 High FINAL Mary Jane chapman [facility], [facility] [address] [id number] 0 02/16 CMP Potas sium mmol/L 3.5 5.1 5.4 High FINAL Mary Jane Ko * [place] [facility], [address] [facility] [id number] 0 02/16 CMP AST/S GOT U/L 17.0 59.0 29 FINAL Mary Jane Ko * [place] [facility], [address] [facility] [id number] 0 02/16 CMP Sodiu m mmol/L 137.0 145.0 138 FINAL Mary Jane oK * [place] [facility], [address] [facility] [id number] 0 02/16 CMP Bilir ubin, total mg/dL 0.2 1.3 0.4 FINAL Mary Jane Ko * [place] [facility], [address] [facility] [id number] 0 02/16 CMP Total prote in g/dL 6.3 8.2 6.8 FINAL Mary Jane Ko * [place] [facility], [address] [facility] [id number] 0 02/23 CMP Album in g/dL 3.5 5.0 3.8 FINAL Mary Jane Ko * [place] [facility], [address] [facility] [id number] 0 02/23 CMP Alkal ine phosp hatas e U/L 36.0 125.0 77 FINAL Mary Jane Ko * [place] [facility], [address] [facility] [id number] 0 02/23 CMP ALT/S GPT U/L 0.0 49.0 22 FINAL Mary Jane Stefani * [place] [facility], [address] [facility] [id number] 0 02/23 CMP AST/S GOT U/L 17.0 59.0 29 FINAL [facility], [address] [facility] [address] [id number] 0 02/23 CMP BUN mg/dL 9.0 20.0 30.0 High FINAL Mary Jane Elizabeth [facility], [facility] [address] [id number] 0 02/23 CMP Calci um mg/dL 8.4 10.2 9.0 FINAL Mary Jane Elizabeth [facility], [facility] [address] [id number] 0 02/23 CMP Chlor marissa mmol/L 96.0 107.0 108 High FINAL [facility] [address] [id number] 0 02/23 CMP CO2 mmol/L 22.0 30.0 [...] stability window. FINAL Mary Jane Ko * [facility] [address] [id number] 0 02/23 CMP Creat inine mg/dL 0.66 1.25 1.50 High FINAL [facility] [address] [id number] 0 02/23 CMP GFR estim ate ml/min /1.73m ^2 46.9 Low GFR is calculate d using the CKD-EPI equation. FINAL Mary Jane Ko * [facility], [address] [address] [id number] 0 02/23 CMP Gluco se mg/dL 74.0 100.0 134 High FINAL Mary Jane Ko * [facility], [address] [address] [id number] 0 02/23 CMP Potas sium mmol/L 3.5 5.1 4.8 FINAL Mary Jane Ko * [facility], [facility] [address] [id number] 0 02/23 CMP Sodiu m mmol/L 137.0 145.0 139 FINAL Mary Jane Ko * [facility] [address] [id number] 0 02/23 CMP Bilir ubin, total mg/dL 0.2 1.3 0.7 FINAL Mary Jane Ko * [facility], [address] [facility] [address] [place] [address] [id number] 0 02/23 CMP Total prote in g/dL 6.3 8.2 6.6 FINAL Mary Jane Ko * [facility], [address] [address] [id number] 0 03/03 CMP Album in g/dL 3.5 5.0 3.7 FINAL Gio Lopez * [facility], [address] [id number] 0 03/03 CMP Alkal ine phosp hatas e U/L 36.0 125.0 69 FINAL Gio Lopez * [facility], [address] [id number] 0 03/03 CMP ALT/S GPT U/L 0.0 49.0 15 FINAL [facility] [address] [id number] 0 03/03 CMP AST/S GOT U/L 17.0 59.0 28 [facility]AL [facility], [address] [facility] [address] [id number] 0 03/03 CMP BUN mg/dL 9.0 20.0 26.0 High FINAL Gio Elizabeth [facility], [facility] [address] [id number] 0 03/03 CMP Calci um mg/dL 8.4 10.2 8.5 FINAL Gio Elizabeth [facility], [facility] [address] [id number] 0 03/03 CMP Chlor marissa mmol/L 96.0 107.0 110 High FINAL [facility] [address] [place] [address] [id number] 0 03/03 CMP CO2 mmol/L 22.0 30.0 [...] the 96 hour stability window. FINAL [facility] [address] [address] [id number] 0 03/03 CMP Creat inine mg/dL 0.66 1.25 1.60 High FINAL Gio Elizabeth [facility], [address] [facility] [id number] 0 03/03 CMP GFR estim ate ml/min /1.73m ^2 43.4 Low GFR is calculate d using the CKD-EPI equation. FINAL Gio Lopez * [place] [facility], [address] [facility] [id number] 0 03/03 CMP Gluco se mg/dL 74.0 100.0 99 FINAL Gio Lopez * [place] [facility], [address] [facility] [id number] 0 03/03 CMP Potas sium mmol/L 3.5 5.1 4.2 FINAL Gio Lopez * [place] [facility], [address] [facility] [id number] 0 03/03 CMP Sodiu m mmol/L 137.0 145.0 139 FINAL Gio Lopez * [place] [facility], [address] [facility] [id number] 0 03/03 CMP Bilir ubin, total mg/dL 0.2 1.3 0.5 FINAL Gio Lopez * [place] [facility], [address] [facility] [id number] 0 03/03 CMP Total prote in g/dL 6.3 8.2 6.5 FINAL Gio Lopez * [place] [facility], [address] [facility] [id number] 0 03/03 TSH w/ refle x to free T4 TSH uIU/mL 0.47 4.68 2.38 FINAL Gio Lopez * [place] [facility], [address] [facility] [id number] 0 03/03 CBC w/ auto diff WBC K/uL 3.0 8.9 6.9 FINAL Gio chapman [facility] - [place], [address] [place] [id number] 0 Phone: () - 03/03 CBC w/ auto diff HGB g/dL 12.5 16.6 12.1 Low FINAL Gio chapman [facility] - [place], [address] [place] [id number] 0 Phone: () - 03/03 CBC w/ auto diff PLT K/uL 113.0 364.0 140 FINAL Gio Coronadoot ari [facility] - [place], [address] [place] [id number] 0 Phone: () - 03/03 CBC w/ auto diff Tatyana # (ANC) K/uL 1.6 6.6 4.5 FINAL Gio chapman [facility] - [place], [address] [place] [id number] 0 Phone: () - 03/03 CBC w/ auto diff Tatyana % % 43.0 74.0 65.1 FINAL Gio chapman [facility] - [place], [address] [place] [id number] 0 Phone: () - 03/03 CBC w/ auto diff IG % % 0.0 0.5 0.3 FINAL Gio chapman [facility] - [place], [address] [place] [id number] 0 Phone: () - 03/03 CBC w/ auto diff IG # K/uL 0.0 0.03 0.02 FINAL Gio Coronadoot a[facility] - [place], [address] [place] [id number] 0 Phone: () - 03/03 CBC w/ auto diff LY % % 14.0 41.0 20.6 FINAL Gio Coronadoot a[facility] - [place], [address] [place] [id number] 0 Phone: () - 03/03 CBC w/ auto diff MO % % 6.0 15.0 9.6 FINAL Gio Coronadoot a [facility] - [place], [address] [place] [id number] 0 Phone: () - 03/03 CBC w/ auto diff EO % % 0.0 7.0 4.3 FINAL Gio Coronadoot a [facility] - [place], [address] [place] [id number] 0 Phone: () - 03/03 CBC w/ auto diff BA % % 0.0 2.0 0.1 FINAL Gio Coronadoot a [facility] - [place], [address] [place] [id number] 0 Phone: () - 03/03 CBC w/ auto diff LY # K/uL 0.4 3.6 1.4 FINAL Gio Coronadoot a [facility] - [place], [address] [place] [id number] 0 Phone: () - 03/03 CBC w/ auto diff MO # K/uL 0.2 1.3 0.7 FINAL Gio Coronadoot a [facility] - [place], [address] [place] [id number] 0 Phone: () - 03/03 CBC w/ auto diff EO # K/uL 0.0 0.6 0.3 FINAL Gio Coronadoot a [facility] - [place], [address] [place] [id number] 0 Phone: () - 03/03 CBC w/ auto diff BA # K/uL 0.0 0.2 0.0 FINAL Gio Coronadoot a [facility] - [place], [address] [place] [id number] 0 Phone: () - 03/03 CBC w/ auto diff NRBC % #/100W BC 0.0 0.2 0.0 FINAL Gio Coronadoot a [facility] - [place], [address] [place] [id number] 0 Phone: () - 03/03 CBC w/ auto diff RBC M/uL 4.2 5.6 3.64 Low FINAL Gio Interiano a [facility] - [place], [address] [place] [id number] 0 Phone: () - 03/03 CBC w/ auto diff HCT % 39.0 49.0 36.6 Low FINAL Gio Interiano a [facility] - [place], [address] [place] [id number] 0 Phone: () - 03/03 CBC w/ auto diff MCV fL 80.0 104.0 100.5 FINAL Gio chapman [facility] - [place], [address] [place] [id number] 0 Phone: () - 03/03 CBC w/ auto diff MCH pg 26.0 35.0 33.2 FINAL Gio chapman [facility] - [place], [address] [place] [id number] 0 Phone: () - 03/03 CBC w/ auto diff MCHC g/dL 30.0 35.0 33.1 FINAL Gio chapman [facility] - [place], [address] [place] [id number] 0 Phone: () - 03/03 CBC w/ auto diff MPV fL 9.5 13.4 10.6 FINAL Gio Interiano a [facility] - [place], [address] [place] [id number] 0 Phone: () - 03/03 CBC w/ auto diff RDW % 11.3 15.6 13.20 FINAL Gio chapman [facility] - [place], [address] [place] [id number] 0 Phone: () - 03/30 CMP Album in g/dL 3.5 5.0 3.8 FINAL Gio Lopez * [place] [facility] [place], [address] [facility] [id number] 0 03/30 CMP Alkal ine phosp hatas e U/L 36.0 125.0 79 FINAL Gio Lopez * [place] [facility], [address] [facility] [id number] 0 03/30 CMP ALT/S GPT U/L 0.0 49.0 24 FINAL Gio Lopez * [place] [facility], [address] [facility] [id number] 0 03/30 CMP AST/S GOT U/L 17.0 59.0 32 FINAL Gio Lopez * [facility], [address] [facility] [id number] 0 03/30 CMP BUN mg/dL 9.0 20.0 19.0 FINAL Gio Lopez * [facility], [address] [facility] [id number] 0 03/30 CMP Calci um mg/dL 8.4 10.2 8.2 Low FINAL Gio Lopez * [facility], [address] [facility] [id number] 0 03/30 CMP Chlor marissa mmol/L 96.0 107.0 108 High FINAL Gio Elizabeth [place] [facility], [address] [facility] [id number] 0 03/30 CMP CO2 mmol/L 22.0 30.0 [...] 96 hour stability window. FINAL Gio Elizabeth [place] [facility], [address] [facility] [id number] 0 03/30 CMP Creat inine mg/dL 0.66 1.25 1.40 High FINAL Gio Lopez * [place] [facility], [address] [facility] [id number] 0 03/30 CMP GFR estim ate ml/min /1.73m ^2 50.9 Low GFR is calculate d using the CKD-EPI equation. FINAL Gio Lopez * [place] [facility], [address] [facility] [id number] 0 03/30 CMP Gluco se mg/dL 74.0 100.0 115 High FINAL Gio Lopez * [place] [facility], [address] [facility] [id number] 0 03/30 CMP Potas sium mmol/L 3.5 5.1 4.4 FINAL Gio Lopez * [place] [facility], [address] [facility] [id number] 0 03/30 CMP Sodiu m mmol/L 137.0 145.0 137 FINAL Gio Lopez * [place] [facility], [address] [facility] [id number] 0 03/30 CMP Bilir ubin, total mg/dL 0.2 1.3 0.4 FINAL Gio Lopez * [place] [facility], [address] [facility] [id number] 0 03/30 CMP Total prote in g/dL 6.3 8.2 6.8 FINAL Gio Lopez * [place] [facility], [address] [facility] [id number] 0 03/30 CBC w/ auto diff WBC K/uL 3.0 8.9 5.6 FINAL Gio Lopez [place] [facility] [place], [address] [place] [id number] 0 03/30 CBC w/ auto diff HGB g/dL 12.5 16.6 12.9 FINAL Gio MEDINA [facility] [place], [address] [place] [id number] 0 03/30 CBC w/ auto diff PLT K/uL 113.0 364.0 152 FINAL Gio MED[facility] [place], [address] [place] [id number] 0 03/30 CBC w/ auto diff Tatyana # (ANC) K/uL 1.6 6.6 3.4 FINAL Gio MED[facility] [place], [address] [place] [id number] 0 03/30 CBC w/ auto diff Tatyana % % 43.0 74.0 60.7 FINAL Gio MED[facility] - [place], [address] [place] [id number] 0 03/30 CBC w/ auto diff IG % % 0.0 0.5 0.2 FINAL Gio MED[facility] - [place], [address] [place] [id number] 0 03/30 CBC w/ auto diff IG # K/uL 0.0 0.03 0.01 FINAL Gio MED[facility] - [place], [address] [place] [id number] 0 03/30 CBC w/ auto diff LY % % 14.0 41.0 25.1 FINAL Gio MED[facility] - [place], [address] [place] [id number] 0 03/30 CBC w/ auto diff MO % % 6.0 15.0 8.6 FINAL Gio MED[facility] - [place], [address] [place] [id number] 0 03/30 CBC w/ auto diff EO % % 0.0 7.0 5.2 FINAL Gio MEDINA [facility] - [place], [address] [place] [id number] 0 03/30 CBC w/ auto diff BA % % 0.0 2.0 0.2 FINAL Gio MEDINA [facility] - [place], [address] [place] [id number] 0 03/30 CBC w/ auto diff LY # K/uL 0.4 3.6 1.4 FINAL Gio MED[facility] - [place], [address] [place] [id number] 0 03/30 CBC w/ auto diff MO # K/uL 0.2 1.3 0.5 FINAL Gio MED[facility] - [place], [address] [place] [id number] 0 03/30 CBC w/ auto diff EO # K/uL 0.0 0.6 0.3 FINAL Gio MED[facility] - [place], [address] [place] [id number] 0 03/30 CBC w/ auto diff BA # K/uL 0.0 0.2 0.0 FINAL [facility]io [facility] - [place], [address] [place] [id number] 0 03/30 CBC w/ auto diff NRBC % #/100W BC 0.0 0.2 0.0 FINAL Gio [facility] [place], [address] [place] [id number] 0 03/30 CBC w/ auto diff RBC M/uL 4.2 5.6 4.00 Low FINAL Gio [facility] [place], [address] [place] [id number] 0 03/30 CBC w/ auto diff HCT % 39.0 49.0 40.1 FINAL Gio MED[facility] [place], [address] [place] [id number] 0 03/30 CBC w/ auto diff MCV fL 80.0 104.0 100.3 FINAL Gio MED[facility] [place], [address] [place] [id number] 0 03/30 CBC w/ auto diff MCH pg 26.0 35.0 32.3 FINAL Gio MED[facility] [place], [address] [place] [id number] 0 03/30 CBC w/ auto diff MCHC g/dL 30.0 35.0 32.2 FINAL Gio MEDINA [facility] [place], [address] [place] [id number] 0 03/30 CBC w/ auto diff MPV fL 9.5 13.4 10.3 FINAL Gio MED[facility] [place], [address] [place] [id number] 0 03/30 CBC w/ auto diff RDW % 11.3 15.6 12.80 FINAL Gio MED[facility] [place], [address] [place] [id number] 0 03/30 TSH w/ refle x to free T4 TSH uIU/mL 0.47 4.68 1.61 FINAL Gio Lopez * [place] [facility] [place], [address] [facility] [id number] 0 04/21 TSH w/ refle x to free T4 TSH uIU/mL 0.47 4.68 1.94 FINAL Gio Lopez * [place] [facility] [place], [address] [facility] [id number] 0 04/21 CBC w/ auto diff WBC K/uL 3.0 8.9 4.6 FINAL Gio MEDINA [facility] [place], [address] [place] [id number] 0 04/21 CBC w/ auto diff HGB g/dL 12.5 16.6 13.0 FINAL Gio MED[facility] - [place], [address] [place] [id number] 0 04/21 CBC w/ auto diff PLT K/uL 113.0 364.0 134 FINAL Gio MED[facility] [place], [address] [place] [id number] 0 04/21 CBC w/ auto diff Plate let, immat ure, fract ion % 0.9 11.2 3.8 FINAL [facility] [place], [address] [place] [id number] 0 04/21 CBC w/ auto diff Tatyana # (ANC) K/uL 1.6 6.6 2.9 FINAL [facility] [place], [address] [place] [id number] 0 04/21 CBC w/ auto diff Tatyana % % 43.0 74.0 63.1 FINAL Gio MEDINA [facility] - [place], [address] [place] [id number] 0 04/21 CBC w/ auto diff IG % % 0.0 0.5 0.4 FINAL Gio MED[facility] - [place], [address] [place] [id number] 0 04/21 CBC w/ auto diff IG # K/uL 0.0 0.03 0.02 FINAL Gio MED[facility] - [place], [address] [place] [id number] 0 04/21 CBC w/ auto diff LY % % 14.0 41.0 24.3 FINAL Gio MEDINA [facility] - [place], [address] [place] [id number] 0 04/21 CBC w/ auto diff MO % % 6.0 15.0 8.7 FINAL Gio MEDINA [facility] - [place], [address] [place] [id number] 0 04/21 CBC w/ auto diff EO % % 0.0 7.0 3.3 FINAL Gio MEDINA [facility] - [place], [address] [place] [id number] 0 04/21 CBC w/ auto diff BA % % 0.0 2.0 0.2 FINAL Gio MEDINA [facility] - [place], [address] [place] [id number] 0 04/21 CBC w/ auto diff LY # K/uL 0.4 3.6 1.1 FINAL Gio MEDINA [facility] - [place], [address] [place] [id number] 0 04/21 CBC w/ auto diff MO # K/uL 0.2 1.3 0.4 FINAL Gio [facility] - [place], [address] [place] [id number] 0 04/21 CBC w/ auto diff EO # K/uL 0.0 0.6 0.2 FINAL Gio MEDINA [facility] - [place], [address] [place] [id number] 0 04/21 CBC w/ auto diff BA # K/uL 0.0 0.2 0.0 FINAL Gio MED[facility] - [place], [address] [place] [id number] 0 04/21 CBC w/ auto diff NRBC % #/100W BC 0.0 0.2 0.0 FINAL Gio [facility] [place], [address] [place] [id number] 0 04/21 CBC w/ auto diff RBC M/uL 4.2 5.6 4.00 Low FINAL Gio [facility] [place], [address] [place] [id number] 0 04/21 CBC w/ auto diff HCT % 39.0 49.0 39.2 FINAL Gio [facility] [place], [address] [place] [id number] 0 04/21 CBC w/ auto diff MCV fL 80.0 104.0 98.0 FINAL Gio MED[facility] - [place], [address] [place] [id number] 0 04/21 CBC w/ auto diff MCH pg 26.0 35.0 32.5 FINAL G[facility] - [place], [address] [place] [id number] 0 04/21 CBC w/ auto diff MCHC g/dL 30.0 35.0 33.2 FINAL G[facility] [place], [address] [place] [id number] 0 04/21 CBC w/ auto diff MPV fL 9.5 13.4 10.6 FINAL G[facility] [place], [address] [place] [id number] 0 04/21 CBC w/ auto diff RDW % 11.3 15.6 12.80 FINAL [facility] [place], [address] [place] [id number] 0 04/21 CMP Album in g/dL 3.5 5.0 3.4 Low FINAL Gio Lopez * [place] [facility] [place], [address] [facility] [id number] 0 04/21 CMP Alkal ine phosp hatas e U/L 36.0 125.0 76 FINAL Gio Lopez * [place] [facility] [place], [address] [facility] [id number] 0 04/21 CMP ALT/S GPT U/L 0.0 49.0 22 FINAL Gio Lopez * [place] [facility] [place], [address] [facility] [id number] 0 04/21 CMP AST/S GOT U/L 17.0 59.0 32 FINAL Gio Lopez * [place] [facility] [place], [address] [facility] [id number] 0 04/21 CMP BUN mg/dL 9.0 20.0 21.0 High FINAL Gio Lopez * [place] [facility] [place], [address] [place] [id number] 0 04/21 CMP Calci um mg/dL 8.4 10.2 8.4 FINAL Gio Lopez * [place] [facility], [address] [facility] [address] [id number] 0 04/21 CMP Chlor marissa mmol/L 96.0 107.0 107 FINAL Gio Elizabeth [facility], [address] [facility] [address] [id number] 0 04/21 CMP CO2 mmol/L 22.0 30.0 [...] 96 hour stability window. FINAL Gio Elizabeth [facility], [address] [facility] [address] [id number] 0 04/21 CMP Creat inine mg/dL 0.66 1.25 1.40 High FINAL Gio Elizabeth [facility], [address] [facility] [address] [id number] 0 04/21 CMP GFR estim ate ml/min /1.73m ^2 50.9 Low GFR is calculate d using the CKD-EPI equation. FINAL Gio Elizabeth [place] [facility], [address] [facility] [address] [id number] 0 04/21 CMP Gluco se mg/dL 74.0 100.0 157 High FINAL Gio Elizabeth [facility], [address] [facility] [address] [id number] 0 04/21 CMP Potas sium mmol/L 3.5 5.1 4.6 FINAL Gio Lopez * [place] [facility] [place], [address] [facility] [id number] 0 04/21 CMP Sodiu m mmol/L 137.0 145.0 139 FINAL Gio Lopez * [place] [facility] [place], [address] [facility] [id number] 0 04/21 CMP Bilir ubin, total mg/dL 0.2 1.3 0.4 FINAL Gio Lopez * [place] [facility] [place], [address] [facility] [id number] 0 04/21 CMP Total prote in g/dL 6.3 8.2 6.3 FINAL Gio Lopez * [place] [facility] [place], [address] [facility] [id number] 0 05/11 CBC w/ auto diff WBC K/uL 3.0 8.9 8.4 FINAL Gio Lopez [place] [facility] [place] [facility] , [address] [place] [id number] 0 05/11 CBC w/ auto diff HGB g/dL 12.5 16.6 13.0 FINAL Gio Lopez [place] [facility] [place] [facility] , [address] [place] [id number] 0 05/11 CBC w/ auto diff PLT K/uL 113.0 364.0 156 FINAL Gio Lopez [place] [facility] [place] [facility] , [address] [place] [id number] 0 05/11 CBC w/ auto diff Tatyana # (ANC) K/uL 1.6 6.6 6.2 FINAL Gio Lopez [place] [facility] [place] [facility] , [address] [place] [id number] 0 05/11 CBC w/ auto diff Tatyana % % 43.0 74.0 72.8 FINAL Gio Lopez [place] [facility] [place] [facility] , [address] [place] [id number] 0 05/11 CBC w/ auto diff IG % % 0.0 0.5 0.4 FINAL Gio Lopez [place] [facility] [place] [facility] , [address] [place] [id number] 0 05/11 CBC w/ auto diff IG # K/uL 0.0 0.03 0.03 FINAL Gio Lopez [place] [facility] [place] [facility] , [address] [place] [id number] 0 05/11 CBC w/ auto diff LY % % 14.0 41.0 19.2 FINAL Gio Lopez [place] [facility] [place] [facility] , [address] [place] [id number] 0 05/11 CBC w/ auto diff MO % % 6.0 15.0 5.7 Low FINAL Gio Lopez [place] [facility] [place] [facility] , [address] [place] [id number] 0 05/11 CBC w/ auto diff EO % % 0.0 7.0 1.7 FINAL Gio Lopez [place] [facility] [place] [facility] , [address] [place] [id number] 0 05/11 CBC w/ auto diff BA % % 0.0 2.0 0.2 FINAL Gio Lopez [place] [facility] [place] [facility] , [address] [place] [id number] 0 05/11 CBC w/ auto diff LY # K/uL 0.4 3.6 1.6 FINAL Gio Lopez [place] [facility] [place] [facility] , [address] [place] [id number] 0 05/11 CBC w/ auto diff MO # K/uL 0.2 1.3 0.5 FINAL Gio Lopez [place] [facility] [place] [facility] , [address] [place] [id number] 0 05/11 CBC w/ auto diff EO # K/uL 0.0 0.6 0.1 FINAL Gio Lopez [place] [facility] [place] [facility] , [address] [place] [id number] 0 05/11 CBC w/ auto diff BA # K/uL 0.0 0.2 0.0 FINAL Gio Lopez [place] [facility] [place] [facility] , [address] [place] [id number] 0 05/11 CBC w/ auto diff NRBC % #/100W BC 0.0 0.2 0.0 FINAL Gio Lopez [place] [facility] [place] [facility] , [address] [place] [id number] 0 05/11 CBC w/ auto diff RBC M/uL 4.2 5.6 4.05 Low FINAL Gio Lopez [place] [facility] [place] [facility] , [address] [place] [id number] 0 05/11 CBC w/ auto diff HCT % 39.0 49.0 39.6 FINAL Gio Lopez [place] [facility] [place] [facility] , [address] [place] [id number] 0 05/11 CBC w/ auto diff MCV fL 80.0 104.0 97.8 FINAL Gio Lopez [place] [facility] [place] [facility] , [address] [place] [id number] 0 05/11 CBC w/ auto diff MCH pg 26.0 35.0 32.1 FINAL [facility]io Lopez [place] [facility] [place] [facility] , [address] [place] [id number] 0 05/11 CBC w/ auto diff MCHC g/dL 30.0 35.0 32.8 FINAL [facility]io Lopez [place] [facility] [place] [facility] , [address] [place] [id number] 0 05/11 CBC w/ auto diff MPV fL 9.5 13.4 10.1 FINAL [facility]io Lopez [place] [facility] , [address] [place] [id number] 0 05/11 CBC w/ auto diff RDW % 11.3 15.6 12.80 FINAL [facility] [place] [facility] , [address] [place] [id number] 0 05/11 TSH w/ refle x to free T4 TSH uIU/mL 0.47 4.68 1.98 FINAL Gio Lopez * [facility] , [address] [facility] [id number] 05/11 CMP Album in g/dL 3.5 5.0 3.7 FINAL Gio Lopez * [facility] , [address] [facility] [id number] 0 05/11 CMP Alkal ine phosp hatas e U/L 36.0 125.0 91 FINAL Gio Lopez * [facility] , [address] [facility] [id number] 0 05/11 CMP ALT/S GPT U/L 0.0 49.0 24 FINAL Gio Lopez * [facility] , [address] [facility] [id number] 0 05/11 CMP AST/S GOT U/L 17.0 59.0 35 FINAL Gio Lopez * [facility] , [address] [address] [facility] [id number] 0 05/11 CMP BUN mg/dL 9.0 20.0 23.0 High FINAL Gio Lopez * [facility] , [address] [address] [facility] [id number] 0 05/11 CMP Calci um mg/dL 8.4 10.2 8.6 FINAL Gio Lopez * [facility] , [address] [facility] [address] [facility] [id number] 0 05/11 CMP Chlor marissa mmol/L 96.0 107.0 108 High FINAL Gio Lopez * [facility] , [address] [facility] [address] [facility] [id number] 0 05/11 CMP CO2 mmol/L 22.0 30.0 [...] hour stability window. FINAL Gio Lopez * [facility] , [address] [facility] [address] [facility] [id number] 0 05/11 CMP Creat inine mg/dL 0.66 1.25 1.50 High FINAL Gio Lopez * [facility] , [address] [facility] [address] [facility] [id number] 0 05/11 CMP GFR estim ate ml/min /1.73m ^2 46.8 Low GFR is calculate d using the CKD-EPI equation. FINAL Gio Lopez * [facility] , [address] [facility] [address] [id number] 0 05/11 CMP Gluco se mg/dL 74.0 100.0 109 High FINAL Gio Lopez * [facility] , [address] [facility] [address] [id number] 0 05/11 CMP Potas sium mmol/L 3.5 5.1 4.4 FINAL Gio Lopez * [facility] , [facility] [address] [id number] 0 05/11 CMP Sodiu m mmol/L 137.0 145.0 138 FINAL Gio Lopez * [facility] , [facility] [address] [id number] 0 05/11 CMP Bilir ubin, total mg/dL 0.2 1.3 0.4 FINAL Gio Lopez * [facility] , [facility] [address] [id number] 0 05/11 CMP Total prote in g/dL 6.3 8.2 6.5 FINAL Gio Lopez * [facility] , [facility] [address] [id number] 0 06/01 TSH w/ refle x to free T4 TSH uIU/mL 0.47 4.68 3.67 FINAL Gio Lopez * [facility] , [facility] [address] [id number] 0 06/01 CMP Album in g/dL 3.5 5.0 3.7 FINAL Gio Lopez * [facility] , [facility] [address] [id number] 0 06/01 CMP Alkal ine phosp hatas e U/L 36.0 125.0 89 FINAL Gio Lopez * [facility] , [address] [facility] [address] [facility] [id number] 0 06/01 CMP ALT/S GPT U/L 0.0 49.0 25 FINAL Gio Lopez * [facility] , [address] [address] [facility] [id number] 0 06/01 CMP AST/S GOT U/L 17.0 59.0 35 FINAL Gio John * [facility] , [address] [facility] [address] [facility] [id number] 0 06/01 CMP BUN mg/dL 9.0 20.0 21.0 High FINAL Gio Lopez * [facility] , [facility] [address] [facility] [id number] 0 06/01 CMP Calci um mg/dL 8.4 10.2 8.5 FINAL Gio John * [facility] , [address] [facility] [address] [facility] [id number] 0 06/01 CMP Chlor marissa mmol/L 96.0 107.0 108 High FINAL Gio John * [facility] , [address] [facility] [address] [facility] [id number] 0 06/01 CMP CO2 mmol/L 22.0 30.0 [...] hour stability window. FINAL Gio Lopez * [facility] , [address] [facility] [address] [facility] [id number] 0 06/01 CMP Creat inine mg/dL 0.66 1.25 1.40 High FINAL Gio Lopez * [facility] , [address] [facility] [id number] 0 06/01 CMP GFR estim ate ml/min /1.73m ^2 50.8 Low GFR is calculate d using the CKD-EPI equation. FINAL Gio Lopez * [facility] , [address] [facility] [id number] 0 06/01 CMP Gluco se mg/dL 74.0 100.0 123 High FINAL Gio Lopez * [facility] , [address] [facility] [id number] 0 06/01 CMP Potas sium mmol/L 3.5 5.1 4.2 FINAL Gio Lopez * [facility] , [address] [facility] [id number] 0 06/01 CMP Sodiu m mmol/L 137.0 145.0 139 FINAL Gio Lopez * [facility] , [address] [facility] [id number] 0 06/01 CMP Bilir ubin, total mg/dL 0.2 1.3 0.4 FINAL Gio Lopez * [facility] , [address] [facility] [id number] 0 06/01 CMP Total prote in g/dL 6.3 8.2 6.1 Low FINAL Gio Lopez * [facility] , [address] [facility] [id number] 0 06/01 CBC w/ auto diff WBC K/uL 3.0 8.9 5.2 FINAL Gio Lopez [facility] , [address] [facility] [id number] 0 06/01 CBC w/ auto diff HGB g/dL 12.5 16.6 13.8 FINAL Gio Lopez [place] [facility] [place] [facility] , [address] [place] [id number] 0 06/01 CBC w/ auto diff PLT K/uL 113.0 364.0 141 FINAL Gio Lopez [place] [facility] [place] [facility] , [address] [place] [id number] 0 06/01 CBC w/ auto diff Tatyana # (ANC) K/uL 1.6 6.6 3.6 FINAL Gio Lopez [place] [facility] [place] [facility] , [address] [place] [id number] 0 06/01 CBC w/ auto diff Tatyana % % 43.0 74.0 68.3 FINAL Gio Lopez [place] [facility] [place] [facility] , [address] [place] [id number] 0 06/01 CBC w/ auto diff IG % % 0.0 0.5 0.4 FINAL Gio Lopez [place] [facility] [place] [facility] , [address] [place] [id number] 0 06/01 CBC w/ auto diff IG # K/uL 0.0 0.03 0.02 FINAL Gio Lopez [place] [facility] [place] [facility] , [address] [place] [id number] 0 06/01 CBC w/ auto diff LY % % 14.0 41.0 20.9 FINAL Gio Lopez [place] [facility] [place] [facility] , [address] [place] [id number] 0 06/01 CBC w/ auto diff MO % % 6.0 15.0 7.3 FINAL Gio Lopez [place] [facility] [place] [facility] , [address] [place] [id number] 0 06/01 CBC w/ auto diff EO % % 0.0 7.0 2.7 FINAL Gio Lopez [place] [facility] [place] [facility] , [address] [place] [id number] 0 06/01 CBC w/ auto diff BA % % 0.0 2.0 0.4 FINAL Gio Lopez [place] [facility] [place] [facility] , [address] [place] [id number] 0 06/01 CBC w/ auto diff LY # K/uL 0.4 3.6 1.1 FINAL Gio Lopez [place] [facility] [place] [facility] , [address] [place] [id number] 0 06/01 CBC w/ auto diff MO # K/uL 0.2 1.3 0.4 FINAL Gio Lopez [place] [facility] [place] [facility] , [address] [place] [id number] 0 06/01 CBC w/ auto diff EO # K/uL 0.0 0.6 0.1 FINAL Gio Lopez [place] [facility] [place] [facility] , [address] [place] [id number] 0 06/01 CBC w/ auto diff BA # K/uL 0.0 0.2 0.0 FINAL Gio Lopez [place] [facility] [place] [facility] , [address] [place] [id number] 0 06/01 CBC w/ auto diff NRBC % #/100W BC 0.0 0.2 0.0 FINAL Gio Lopez [place] [facility] [place] [facility] , [address] [place] [id number] 0 06/01 CBC w/ auto diff RBC M/uL 4.2 5.6 4.22 FINAL Gio Lopez [place] [facility] [place] [facility] , [address] [place] [id number] 0 06/01 CBC w/ auto diff HCT % 39.0 49.0 41.1 FINAL Gio Lopez [place] [facility] [place] [facility] , [address] [place] [id number] 0 06/01 CBC w/ auto diff MCV fL 80.0 104.0 97.4 FINAL Gio Lopez [place] [facility] [place] [facility] , [address] [place] [id number] 0 06/01 CBC w/ auto diff MCH pg 26.0 35.0 32.7 FINAL Gio Lopez [place] [facility] [place] [facility] , [address] [place] [id number] 0 06/01 CBC w/ auto diff MCHC g/dL 30.0 35.0 33.6 FINAL Gio Lopez [place] [facility] [place] [facility] , [address] [place] [id number] 0 06/01 CBC w/ auto diff MPV fL 9.5 13.4 9.9 FINAL Gio Lopez [place] [facility] [place] [facility] , [address] [place] [id number] 0 06/01 CBC w/ auto diff RDW % 11.3 15.6 13.20 FINAL Gio Lopez [place] [facility] [place] [facility] , [address] [place] [id number] 0 06/08 [facility] other lab See commercial attache d 08/24 CMP Album in g/dL 3.5 5.0 3.4 Low FINAL Gio Lopez * [place] [facility] [place] [facility] , [address] [place] [id number] 0 08/24 CMP Alkal ine phosp hatas e U/L 36.0 125.0 110 FINAL Gio Lopez * [facility] , [address] [facility] [id number] 0 08/24 CMP ALT/S GPT U/L 0.0 49.0 27 FINAL Gio Lopez * [facility] , [address] [facility] [id number] 0 08/24 CMP AST/S GOT U/L 17.0 59.0 38 FINAL Gio Lopez * [facility] , [address] [facility] [address] [facility] [id number] 0 08/24 CMP BUN mg/dL 9.0 20.0 29.0 High FINAL Gio Lopez * [facility] , [address] [facility] [id number] 0 08/24 CMP Calci um mg/dL 8.4 10.2 8.2 Low FINAL Gio Lopez * [facility] , [address] [facility] [address] [facility] [id number] 0 08/24 CMP Chlor marissa mmol/L 96.0 107.0 104 FINAL Gio Lopez * [facility] , [address] [facility] [id number] 0 08/24 CMP CO2 mmol/L 22.0 30.0 [...] hour stability window. FINAL Gio Lopez * [facility] , [address] [facility] [id number] 0 08/24 CMP Creat inine mg/dL 0.66 1.25 1.60 High FINAL Gio Lopez * [facility] , [address] [facility] [address] [id number] 0 08/24 CMP GFR estim ate ml/min /1.73m ^2 43.2 Low GFR is calculate d using the CKD-EPI equation. FINAL Gio Lopez * [facility] , [address] [facility] [address] [id number] 0 08/24 CMP Gluco se mg/dL 74.0 100.0 175 High FINAL Gio Lopez * [facility] , [facility] [address] [id number] 0 08/24 CMP Potas sium mmol/L 3.5 5.1 3.8 FINAL Gio Lopez * [facility] , [facility] [facility] [address] [id number] 0 08/24 CMP Sodiu m mmol/L 137.0 145.0 137 FINAL Gio Lopez * [facility] , [facility] [address] [place] [address] [id number] 0 08/24 CMP Bilir ubin, total mg/dL 0.2 1.3 0.6 FINAL Gio Lopez * [facility] , [address] [id number] 0 08/24 CMP Total prote in g/dL 6.3 8.2 5.9 Low FINAL Gio Lopez * [facility] , [address] [id number] 0 08/24 TSH w/ refle x to free T4 TSH uIU/mL 0.47 4.68 0.82 FINAL Gio John * [facility] , [facility] [address] [id number] 0 08/24 CBC w/ auto diff WBC K/uL 3.0 8.9 5.5 FINAL Gio Lopez [place] [facility] [place] [facility] , [address] [place] [id number] 0 08/24 CBC w/ auto diff HGB g/dL 12.5 16.6 13.6 FINAL Gio Lopez [place] [facility] [place] [facility] , [address] [place] [id number] 0 08/24 CBC w/ auto diff PLT K/uL 113.0 364.0 158 FINAL Gio Lopez [place] [facility] [place] [facility] , [address] [place] [id number] 0 08/24 CBC w/ auto diff Tatyana # (ANC) K/uL 1.6 6.6 3.8 FINAL Gio Lopez [place] [facility] [place] [facility] , [address] [place] [id number] 0 08/24 CBC w/ auto diff Tatyana % % 43.0 74.0 69.2 FINAL Gio Lopez [place] [facility] [place] [facility] , [address] [place] [id number] 0 08/24 CBC w/ auto diff IG % % 0.0 0.5 0.4 FINAL Gio Lopez [place] [facility] [place] [facility] , [address] [place] [id number] 0 08/24 CBC w/ auto diff IG # K/uL 0.0 0.03 0.02 FINAL Gio Lopez [place] [facility] [place] [facility] , [address] [place] [id number] 0 08/24 CBC w/ auto diff LY % % 14.0 41.0 20.6 FINAL Gio Lopez [place] [facility] [place] [facility] , [address] [place] [id number] 0 08/24 CBC w/ auto diff MO % % 6.0 15.0 7.9 FINAL Gio Lopez [place] [facility] [place] [facility] , [address] [place] [id number] 0 08/24 CBC w/ auto diff EO % % 0.0 7.0 1.7 FINAL Gio Lopez [place] [facility] [place] [facility] , [address] [place] [id number] 0 08/24 CBC w/ auto diff BA % % 0.0 2.0 0.2 FINAL Gio Lopez [place] [facility] [place] [facility] , [address] [place] [id number] 0 08/24 CBC w/ auto diff LY # K/uL 0.4 3.6 1.1 FINAL Gio Lopez [place] [facility] [place] [facility] , [address] [place] [id number] 0 08/24 CBC w/ auto diff MO # K/uL 0.2 1.3 0.4 FINAL Gio Lopez [place] [facility] [place] [facility] , [address] [place] [id number] 0 08/24 CBC w/ auto diff EO # K/uL 0.0 0.6 0.1 FINAL Gio Lopez [place] [facility] , [address] [place] [id number] 0 08/24 CBC w/ auto diff BA # K/uL 0.0 0.2 0.0 FINAL Gio Lopez [place] [facility] [place] [facility] , [address] [place] [id number] 0 08/24 CBC w/ auto diff NRBC % #/100W BC 0.0 0.2 0.0 FINAL Gio Lopez [place] [facility] [place] [facility] , [address] [place] [id number] 0 08/24 CBC w/ auto diff RBC M/uL 4.2 5.6 4.08 Low FINAL Gio Lopez [place] [facility] [place] [facility] , [address] [facility] [place] [id number] 0 08/24 CBC w/ auto diff HCT % 39.0 49.0 41.1 FINAL Gio Lopez [place] [facility] [place] [facility] , [address] [facility] [address] [place] [id number] 0 08/24 CBC w/ auto diff MCV fL 80.0 104.0 100.7 FINAL Gio Lopez [place] [facility] [place] [facility] , [address] [facility] [address] [place] [id number] 0 08/24 CBC w/ auto diff MCH pg 26.0 35.0 33.3 FINAL Gio Lopez [place] [facility] , [address] [place] [id number] 0 08/24 CBC w/ auto diff MCHC g/dL 30.0 35.0 33.1 FINAL Gio Lopez [place] [facility] , [address] [place] [id number] 0 08/24 CBC w/ auto diff MPV fL 9.5 13.4 10.7 FINAL Gio Lopez [place] [facility] , [address] [place] [id number] 0 08/24 CBC w/ auto diff RDW % 11.3 15.6 13.00 FINAL Gio Lopez [place] [facility] [place] [facility] , [address] [facility] [id number] 0 09/14 CMP GFR estim ate ml/min /1.73m ^2 40.2 Low GFR is calculate d using the CKD-EPI equation. FINAL Gio Lopez * [facility] , [address] [facility] [id number] 0 09/14 CMP Gluco se mg/dL 74.0 100.0 106 High FINAL Gio Lopez * [facility] , [address] [facility] [id number] 0 09/14 CMP Potas sium mmol/L 3.5 5.1 4.7 FINAL Gio Lopez * [facility] , [address] [facility] [id number] 0 09/14 CMP Sodiu m mmol/L 137.0 145.0 135 Low FINAL Gio Lopez * [facility] , [address] [facility] [id number] 0 09/14 CMP Bilir ubin, total mg/dL 0.2 1.3 0.3 FINAL Gio Lopez * [facility] , [address] [facility] [id number] 0 09/14 CMP Total prote in g/dL 6.3 8.2 5.6 Low FINAL Gio Lopez * [facility] , [address] [facility] [id number] 0 09/14 CMP Album in g/dL 3.5 5.0 3.2 Low FINAL Gio Lopez * [facility] , [address] [facility] [id number] 0 09/14 CMP Alkal ine phosp hatas e U/L 36.0 125.0 110 FINAL Gio Lopez * [facility] , [address] [facility] [id number] 0 09/14 CMP ALT/S GPT U/L 0.0 49.0 36 FINAL Gio Lopez * [facility] , [address] [facility] [id number] 0 09/14 CMP AST/S GOT U/L 17.0 59.0 55 FINAL Gio Lopez * [facility] , [address] [facility] [id number] 0 09/14 CMP BUN mg/dL 9.0 20.0 27.0 High FINAL Gio Lopez * [facility] , [address] [facility] [id number] 0 09/14 CMP Calci um mg/dL 8.4 10.2 7.7 Low FINAL Gio Lopez * [facility] , [address] [facility] [id number] 0 09/14 CMP Chlor marissa mmol/L 96.0 107.0 104 FINAL Gio Lopez * [facility] , [address] [facility] [id number] 0 09/14 CMP CO2 mmol/L 22.0 30.0 [...] hour stability window. FINAL Gio Lopez * [facility] , [address] [facility] [id number] 0 09/14 CMP Creat inine mg/dL 0.66 1.25 1.70 High FINAL Gio Lopez * [place] [facility] [place] [facility] , [address] [place] [id number] 0 09/14 CBC w/ auto diff WBC K/uL 3.0 8.9 6.8 FINAL Gio Lopez [place] [facility] [place] [facility] , [address] [place] [id number] 0 09/14 CBC w/ auto diff HGB g/dL 12.5 16.6 13.5 FINAL Gio Lopez [place] [facility] , [address] [place] [id number] 0 09/14 CBC w/ auto diff PLT K/uL 113.0 364.0 148 FINAL Gio Lopez [place] [facility] , [address] [place] [id number] 0 09/14 CBC w/ auto diff Tatyana # (ANC) K/uL 1.6 6.6 4.3 FINAL Gio Lopez [place] [facility] [place] [facility] , [address] [place] [id number] 0 09/14 CBC w/ auto diff Tatyana % % 43.0 74.0 62.9 FINAL Gio Lopez [place] [facility] [place] [facility] , [address] [place] [id number] 0 09/14 CBC w/ auto diff IG % % 0.0 0.5 0.1 FINAL Gio Lopez [place] [facility] , [address] [place] [id number] 0 09/14 CBC w/ auto diff IG # K/uL 0.0 0.03 0.01 FINAL Gio Lopez [place] [facility] , [address] [place] [id number] 0 09/14 CBC w/ auto diff LY % % 14.0 41.0 30.0 FINAL Gio Lopez [place] [facility] , [address] [place] [id number] 0 09/14 CBC w/ auto diff MO % % 6.0 15.0 5.4 Low FINAL Gio Lopez [place] [facility] , [address] [place] [id number] 0 09/14 CBC w/ auto diff EO % % 0.0 7.0 1.3 FINAL Gio Lopez [place] [facility] , [address] [place] [id number] 0 09/14 CBC w/ auto diff BA % % 0.0 2.0 0.3 FINAL Gio Lopez [place] [facility] , [address] [place] [id number] 0 09/14 CBC w/ auto diff LY # K/uL 0.4 3.6 2.0 FINAL Gio Lopez [place] [facility] [place] [facility] , [address] [place] [id number] 0 09/14 CBC w/ auto diff MO # K/uL 0.2 1.3 0.4 FINAL Gio Lopez [place] [facility] [place] [facility] , [address] [place] [id number] 0 09/14 CBC w/ auto diff EO # K/uL 0.0 0.6 0.1 FINAL Gio Lopez [place] [facility] [place] [facility] , [address] [place] [id number] 0 09/14 CBC w/ auto diff BA # K/uL 0.0 0.2 0.0 FINAL Gio Lopez [place] [facility] [place] [facility] , [address] [place] [id number] 0 09/14 CBC w/ auto diff NRBC % #/100W BC 0.0 0.2 0.0 FINAL Gio Lopez [place] [facility] [place] [facility] , [address] [place] [id number] 0 09/14 CBC w/ auto diff RBC M/uL 4.2 5.6 4.08 Low FINAL Gio Lopez [place] [facility] [place] [facility] , [address] [place] [id number] 0 09/14 CBC w/ auto diff HCT % 39.0 49.0 40.3 FINAL Gio Lopez [place] [facility] , [address] [place] [id number] 0 09/14 CBC w/ auto diff MCV fL 80.0 104.0 98.8 FINAL Gio Lopez [place] [facility] [place] [facility] , [address] [place] [id number] 0 09/14 CBC w/ auto diff MCH pg 26.0 35.0 33.1 FINAL Gio Lopez [place] [facility] [place] [facility] , [address] [place] [id number] 0 09/14 CBC w/ auto diff MCHC g/dL 30.0 35.0 33.5 FINAL Gio Lopez [place] [facility] [place] [facility] , [address] [place] [id number] 0 09/14 CBC w/ auto diff MPV fL 9.5 13.4 10.5 FINAL Gio Lopez [place] [facility] [place] [facility] , [address] [place] [id number] 0 09/14 CBC w/ auto diff RDW % 11.3 15.6 13.30 [facility] [address] [facility] [id number] 0 09/14 TSH w/ refle x to free T4 TSH uIU/mL 0.47 4.68 0.68 FINAL Gio Lopez * [facility] , [address] [facility] [id number] 0 09/15 Prote in (dips tick) panel Prote in (ua) 3+ Abnor mal [facility] , [address] [facility] [id number] 0 09/15 Prote in/cr eatin ine ratio , rando m urine panel CREAT ININE , RANDO M URINE mg/dL 20.0 320.0 52 FINAL Gio VALDES, [facility] [address] [place] [id number] 4 09/15 Prote in/cr eatin ine ratio , rando m urine panel PROTE IN/CR EATIN INE RATIO mg/gcr eat 25.0 148.0 6173 High FINAL Gio VALDSE [facility] [address] [place] [id number] 4 09/15 Prote in/cr eatin ine ratio , rando m urine panel PROTE IN/CR EATIN INE RATIO mg/mgc reat 0.025 0.148 6.173 High FINAL Gio VALDES, [facility] [address] [place] [id number] 4 09/15 Prote in/cr eatin ine ratio , rando m urine panel PROTE IN, TOTAL , RANDO M UR mg/dL 5.0 25.0 321 High Verified by repeat analysis. FINAL Gio VALDES, [facility] [address] [place] [id number] 4 10/13 CBC w/ auto diff WBC K/uL 3.0 8.9 4.2 FINAL Gio Lopez [place] [facility] [place] [facility] , [address] [place] [id number] 0 10/13 CBC w/ auto diff HGB g/dL 12.5 16.6 12.3 Low FINAL Gio Lopez [place] [facility] , [address] [place] [id number] 0 10/13 CBC w/ auto diff PLT K/uL 113.0 364.0 162 FINAL Gio Lopez [place] [facility] [place] [facility] , [address] [place] [id number] 0 10/13 CBC w/ auto diff Tatyana # (ANC) K/uL 1.6 6.6 2.0 FINAL Gio Lopez [place] [facility] [place] [facility] , [address] [place] [id number] 0 10/13 CBC w/ auto diff Tatyana % % 43.0 74.0 46.9 FINAL Gio Lopez [place] [facility] , [address] [place] [id number] 0 10/13 CBC w/ auto diff IG % % 0.0 0.5 0.2 FINAL Gio Lopez [place] [facility] [place] [facility] , [address] [place] [id number] 0 10/13 CBC w/ auto diff IG # K/uL 0.0 0.03 0.01 FINAL Gio Lpoez [place] [facility] [place] [facility] , [address] [place] [id number] 0 10/13 CBC w/ auto diff LY % % 14.0 41.0 43.1 High FINAL Gio Lopez [place] [facility] , [address] [place] [id number] 0 10/13 CBC w/ auto diff MO % % 6.0 15.0 6.9 FINAL Gio Lopez [place] [facility] , [address] [place] [id number] 0 10/13 CBC w/ auto diff EO % % 0.0 7.0 2.4 FINAL Gio Lopez [place] [facility] , [address] [place] [id number] 0 10/13 CBC w/ auto diff BA % % 0.0 2.0 0.5 FINAL Gio Lopez [place] [facility] , [address] [place] [id number] 0 10/13 CBC w/ auto diff LY # K/uL 0.4 3.6 1.8 FINAL Gio Lopez [place] [facility] , [address] [place] [id number] 0 10/13 CBC w/ auto diff MO # K/uL 0.2 1.3 0.3 FINAL Gio Lopez [place] [facility] , [address] [place] [id number] 0 10/13 CBC w/ auto diff EO # K/uL 0.0 0.6 0.1 FINAL Gio Lopez [place] [facility] , [address] [place] [id number] 0 10/13 CBC w/ auto diff BA # K/uL 0.0 0.2 0.0 FINAL Gio Lopez [place] [facility] , [address] [place] [id number] 0 10/13 CBC w/ auto diff NRBC % #/100W BC 0.0 0.2 0.0 FINAL Gio Lopez [place] [facility] [place] [facility] , [address] [place] [id number] 0 10/13 CBC w/ auto diff RBC M/uL 4.2 5.6 3.70 Low FINAL Gio Lopez [place] [facility] , [address] [place] [id number] 0 10/13 CBC w/ auto diff HCT % 39.0 49.0 36.8 Low FINAL Gio Lopez [place] [facility] , [address] [place] [id number] 0 10/13 CBC w/ auto diff MCV fL 80.0 104.0 99.5 FINAL Gio Lopez [place] [facility] , [address] [place] [id number] 0 10/13 CBC w/ auto diff MCH pg 26.0 35.0 33.2 FINAL Gio Lopez [place] [facility] , [address] [place] [id number] 0 10/13 CBC w/ auto diff MCHC g/dL 30.0 35.0 33.4 FINAL Gio Lopez [place] [facility] , [address] [place] [id number] 0 10/13 CBC w/ auto diff MPV fL 9.5 13.4 10.4 FINAL Goi Lopez [place] [facility] , [address] [place] [id number] 0 10/13 CBC w/ auto diff RDW % 11.3 15.6 15.20 FINAL Gio Lopez [facility] , [address] [facility] [id number] 0 10/13 TSH w/ refle x to free T4 TSH uIU/mL 0.47 4.68 1.65 FINAL Gio Lopez * [facility] , [address] [facility] [id number] 0 10/13 CMP Album in g/dL 3.5 5.0 2.9 Low FINAL Gio Lopez * [facility] , [address] [facility] [id number] 0 10/13 CMP Alkal ine phosp hatas e U/L 36.0 125.0 106 FINAL Gio Lopez * [facility] , [address] [facility] [id number] 0 10/13 CMP ALT/S GPT U/L 0.0 49.0 32 FINAL Gio Lopez * [facility] On[facility] , [address] [facility] [id number] 0 10/13 CMP AST/S GOT U/L 17.0 59.0 48 FINAL Gio Lopez * [facility] , [address] [facility] [id number] 0 10/13 CMP BUN mg/dL 9.0 20.0 20.0 FINAL Gio Lopez * [facility] On[facility] , [address] [facility] [id number] 0 10/13 CMP Calci um mg/dL 8.4 10.2 7.4 Critica l protein chemist ry value tasia Costa ninoska Low FINAL Gio Lopez * [facility] On[facility] , [address] [facility] [id number] 0 05/23 /2025 CMP Chlor marissa mmol/L 96.0 107.0 103 FINAL Gio Lopez * [facility] , [address] [address] [facility] [id number] 0 10/13 CMP CO2 mmol/L 22.0 30.0 [...] hour stability window. FINAL Gio Lopez * [facility] , [address] [address] [facility] [id number] 0 10/13 CMP Creat inine mg/dL 0.66 1.25 1.50 High FINAL Gio Lopez * [facility] , [address] [facility] [address] [facility] [id number] 0 10/13 CMP GFR estim ate ml/min /1.73m ^2 46.7 Low GFR is calculate d using the CKD-EPI equation. FINAL Gio Lopez * [facility] , [address] [facility] [id number] 0 10/13 CMP Gluco se mg/dL 74.0 100.0 110 High FINAL Gio Lopez * [facility] , [address] [facility] [address] [facility] [id number] 0 10/13 CMP Potas sium mmol/L 3.5 5.1 4.4 FINAL Gio Lopez * [facility] , [address] [id number] 0 10/13 CMP Sodiu m mmol/L 137.0 145.0 136 Low FINAL Gio Lopez * [facility] , [address] [facility] [id number] 0 10/13 CMP Bilir ubin, total mg/dL 0.2 1.3 0.4 FINAL Gio Lopez * [facility] , [address] [address] [facility] [id number] 0 10/13 CMP Total prote in g/dL 6.3 8.2 5.4 Low FINAL Gio Lopez * [facility] , [address] [address] [facility] [id number] 0 10/13 Prote in/cr eatin ine ratio , rando m urine panel CREAT ININE , RANDO M URINE mg/dL 20.0 320.0 45 FINAL Gio VALDES, [facility] [address] [place] [id number] 4 10/13 Prote in/cr eatin ine ratio , rando m urine panel PROTE IN/CR EATIN INE RATIO mg/gcr eat 25.0 148.0 4556 High FINAL Gio VALDES, [facility] [address] [place] [id number] 4 10/13 Prote in/cr eatin ine ratio , rando m urine panel PROTE IN/CR EATIN INE RATIO mg/mgc reat 0.025 0.148 4.556 High FINAL Gio VALDES, [facility] [address] [place] [id number] 4 10/13 Prote in/cr eatin ine ratio , rando m urine panel PROTE IN, TOTAL , RANDO M UR mg/dL 5.0 25.0 205 High Verified by repeat analysis. FINAL Gio VALDES, [facility] [address] [place] [id number] 4 11/20 TSH w/ refle x to free T4 TSH uIU/mL 0.47 4.68 1.59 FINAL Gio Lopez * [facility] , [address] [facility] [id number] 0 11/20 CMP Album in g/dL 3.5 5.0 2.7 Low FINAL Gio Lopez * [facility] , [address] [address] [facility] [id number] 0 11/20 CMP Alkal ine phosp hatas e U/L 36.0 125.0 120 FINAL Gio Lopez * [facility] , [address] [address] [facility] [id number] 0 11/20 CMP ALT/S GPT U/L 0.0 49.0 33 FINAL Gio Lopez * [facility] , [address] [facility] [address] [facility] [id number] 0 11/20 CMP AST/S GOT U/L 17.0 59.0 45 FINAL Gio Lopez * [facility] , [address] [address] [facility] [id number] 0 11/20 CMP BUN mg/dL 9.0 20.0 26.0 High FINAL Gio Lopez * [facility] , [address] [address] [facility] [id number] 0 11/20 CMP Calci um mg/dL 8.4 10.2 7.4 Criti ninoska Low FINAL Gio Lopez * [facility] , [address] [address] [facility] [id number] 0 11/20 CMP Chlor marissa mmol/L 96.0 107.0 107 FINAL Gio Lopez * [facility] , [address] [facility] [address] [facility] [id number] 0 11/20 CMP CO2 mmol/L 22.0 30.0 [...] hour stability window. FINAL Gio Lopez * [facility] , [facility] [address] [id number] 0 11/20 CMP Creat inine mg/dL 0.66 1.25 1.60 High FINAL Gio Lopez * [facility] , [facility] [address] [id number] 0 11/20 CMP GFR estim ate ml/min /1.73m ^2 43.2 Low GFR is calculate d using the CKD-EPI equation. FINAL Gio Elizabeth [facility] , [facility] [address] [id number] 0 11/20 CMP Gluco se mg/dL 74.0 100.0 99 FINAL Gio Elizabeth [facility] , [facility] [address] [facility] [id number] 0 11/20 CMP Potas sium mmol/L 3.5 5.1 4.3 FINAL Gio Elizabeth [facility] , [facility] [address] [facility] [id number] 0 11/20 CMP Sodiu m mmol/L 137.0 145.0 137 FINAL Gio Lopez * [facility] , [facility] [address] [id number] 0 11/20 CMP Bilir ubin, total mg/dL 0.2 1.3 0.5 FINAL Gio Lopez * [facility] , [facility] [address] [id number] 0 11/20 CMP Total prote in g/dL 6.3 8.2 5.1 Low FINAL Gio Lopez * [place] [facility] [place] [facility] , [address] [facility] [address] [place] [id number] 0 11/20 CBC w/ auto diff WBC K/uL 3.0 8.9 6.0 FINAL Gio Lopez [place] [facility] , [address] [place] [id number] 0 11/20 CBC w/ auto diff HGB g/dL 12.5 16.6 11.3 Low FINAL Gio Lopez [place] [facility] , [address] [place] [id number] 0 11/20 CBC w/ auto diff PLT K/uL 113.0 364.0 139 FINAL Gio Lopez [place] [facility] , [address] [place] [id number] 0 11/20 CBC w/ auto diff Tatyana # (ANC) K/uL 1.6 6.6 4.0 FINAL Gio Lopez [place] [facility] , [address] [place] [id number] 0 11/20 CBC w/ auto diff Tatyana % % 43.0 74.0 67.3 FINAL Gio Lopez [place] [facility] , [address] [place] [id number] 0 11/20 CBC w/ auto diff IG % % 0.0 0.5 0.2 FINAL Gio Lopez [place] [facility] , [address] [place] [id number] 0 11/20 CBC w/ auto diff IG # K/uL 0.0 0.03 0.01 FINAL Gio Lopez [place] [facility] , [address] [place] [id number] 0 11/20 CBC w/ auto diff LY % % 14.0 41.0 23.4 FINAL Gio Lopez [place] [facility] , [address] [place] [id number] 0 11/20 CBC w/ auto diff MO % % 6.0 15.0 7.6 FINAL Gio Lopez [place] [facility] , [address] [place] [id number] 0 11/20 CBC w/ auto diff EO % % 0.0 7.0 1.3 FINAL Gio Lopez [place] [facility] , [address] [place] [id number] 0 11/20 CBC w/ auto diff BA % % 0.0 2.0 0.2 FINAL Gio Lopez [place] [facility] , [address] [place] [id number] 0 11/20 CBC w/ auto diff LY # K/uL 0.4 3.6 1.4 FINAL Gio Lopez [place] [facility] , [address] [place] [id number] 0 11/20 CBC w/ auto diff MO # K/uL 0.2 1.3 0.5 FINAL Gio Lopez [place] [facility] , [address] [place] [id number] 0 11/20 CBC w/ auto diff EO # K/uL 0.0 0.6 0.1 FINAL Gio Lopez [place] [facility] , [address] [place] [id number] 0 11/20 CBC w/ auto diff BA # K/uL 0.0 0.2 0.0 FINAL Gio Lopez [place] [facility] , [address] [place] [id number] 0 11/20 CBC w/ auto diff NRBC % #/100W BC 0.0 0.2 0.0 FINAL Gio Lopez [place] [facility] , [address] [place] [id number] 0 11/20 CBC w/ auto diff RBC M/uL 4.2 5.6 3.24 Low FINAL Gio Lopez [place] [facility] , [address] [place] [id number] 0 11/20 CBC w/ auto diff HCT % 39.0 49.0 33.6 Low FINAL Gio Lopez [place] [facility] , [address] [place] [id number] 0 11/20 CBC w/ auto diff MCV fL 80.0 104.0 103.7 FINAL Gio Lopez [place] [facility] , [address] [place] [id number] 0 11/20 CBC w/ auto diff MCH pg 26.0 35.0 34.9 FINAL Gio Lopez [place] [facility] , [address] [place] [id number] 0 11/20 CBC w/ auto diff MCHC g/dL 30.0 35.0 33.6 FINAL Gio Lopez [place] [facility] , [address] [place] [id number] 0 11/20 CBC w/ auto diff MPV fL 9.5 13.4 10.2 FINAL Gio Lopez [place] [facility] , [address] [place] [id number] 0 11/20 CBC w/ auto diff RDW % 11.3 15.6 16.60 High FINAL Gio Lopez [facility] , [address] [facility] [id number] 0 11/20 Prote in/cr eatin ine ratio , rando m urine panel CREAT ININE , RANDO M URINE mg/dL 20.0 320.0 41 FINAL Gio Lopez QUEST, [facility] [address] [place] [id number] 4 11/20 Prote in/cr eatin ine ratio , rando m urine panel PROTE IN/CR EATIN INE RATIO mg/gcr eat 25.0 148.0 3634 High FINAL Gio VALDES, [facility] [address] [place] [id number] 4 11/20 Prote in/cr eatin ine ratio , rando m urine panel PROTE IN/CR EATIN INE RATIO mg/mgc reat 0.025 0.148 3.634 High FINAL Gio VALDES, [facility] [address] [place] [id number] 4 11/20 Prote in/cr eatin ine ratio , rando m urine panel PROTE IN, TOTAL , RANDO M UR mg/dL 5.0 25.0 149 High FINAL Gio VALDES, [facility] [address] [place] [id number] 4 12/20 CMP Album in g/dL 3.5 5.0 2.9 Low FINAL Gio Lopez * [facility] , [address] [facility] [id number] 0 12/20 CMP Alkal ine phosp hatas e U/L 36.0 125.0 117 FINAL Gio Lopez * [facility] , [address] [facility] [id number] 0 12/20 CMP ALT/S GPT U/L 0.0 49.0 33 FINAL Gio Lopez * [facility] , [address] [facility] [address] [facility] [id number] 0 12/20 CMP AST/S GOT U/L 17.0 59.0 45 FINAL Gio Lopez * [facility] , [address] [facility] [address] [facility] [id number] 0 12/20 CMP BUN mg/dL 9.0 20.0 33.0 High FINAL Gio Lopez * [facility] , [facility] [address] [id number] 0 12/20 CMP Calci um mg/dL 8.4 10.2 7.7 Low FINAL Gio Lopez * [facility] , [address] [facility] [address] [id number] 0 12/20 CMP Chlor marissa mmol/L 96.0 107.0 105 FINAL Gio Lopez * [facility] , [address] [facility] [address] [id number] 0 12/20 CMP CO2 mmol/L 22.0 30.0 [...] hour stability window. FINAL Gio Lopez * [facility] , [address] [facility] [address] [id number] 0 12/20 CMP Creat inine mg/dL 0.66 1.25 1.90 High FINAL Gio Lopez * [facility] , [facility] [address] [id number] 0 12/20 CMP GFR estim ate ml/min /1.73m ^2 35.1 Low GFR is calculate d using the CKD-EPI equation. FINAL Gio Lopez * [facility] , [address] [facility] [id number] 0 12/20 CMP Gluco se mg/dL 74.0 100.0 130 High FINAL Gio Lopez * [facility] , [address] [facility] [id number] 0 12/20 CMP Potas sium mmol/L 3.5 5.1 4.6 FINAL Gio Lopez * [facility] , [address] [facility] [id number] 0 12/20 CMP Sodiu m mmol/L 137.0 145.0 132 Low FINAL Gio Lopez * [facility] , [address] [facility] [id number] 0 12/20 CMP Bilir ubin, total mg/dL 0.2 1.3 0.2 FINAL Gio Lopez * [facility] , [address] [facility] [id number] 0 12/20 CMP Total prote in g/dL 6.3 8.2 5.5 Low FINAL Gio Lopez * [facility] , [address] [facility] [id number] 0 12/20 CBC w/ auto diff WBC K/uL 3.0 8.9 3.8 FINAL Gio Lopez [facility] , [address] [address] [facility] [id number] 0 12/20 CBC w/ auto diff HGB g/dL 12.5 16.6 11.5 Low FINAL Gio Lopez [place] [facility] , [address] [place] [id number] 0 12/20 CBC w/ auto diff PLT K/uL 113.0 364.0 176 FINAL Gio Lopez [place] [facility] , [address] [place] [id number] 0 12/20 CBC w/ auto diff Tatyana # (ANC) K/uL 1.6 6.6 2.1 FINAL Gio Lopez [place] [facility] , [address] [place] [id number] 0 12/20 CBC w/ auto diff Tatyana % % 43.0 74.0 56.1 FINAL Gio Lopez [place] [facility] , [address] [place] [id number] 0 12/20 CBC w/ auto diff IG % % 0.0 0.5 0.3 FINAL Gio Lopez [place] [facility] , [address] [place] [id number] 0 12/20 CBC w/ auto diff IG # K/uL 0.0 0.03 0.01 FINAL Gio Lopez [place] [facility] , [address] [place] [id number] 0 12/20 CBC w/ auto diff LY % % 14.0 41.0 33.3 FINAL Gio Lopez [place] [facility] , [address] [place] [id number] 0 12/20 CBC w/ auto diff MO % % 6.0 15.0 8.7 FINAL Gio Lopez [place] [facility] , [address] [place] [id number] 0 12/20 CBC w/ auto diff EO % % 0.0 7.0 1.3 FINAL Gio Lopez [place] [facility] , [address] [place] [id number] 0 12/20 CBC w/ auto diff BA % % 0.0 2.0 0.3 FINAL Gio Lopez [place] [facility] , [address] [place] [id number] 0 12/20 CBC w/ auto diff LY # K/uL 0.4 3.6 1.3 FINAL Gio Lopez [place] [facility] , [address] [place] [id number] 0 12/20 CBC w/ auto diff MO # K/uL 0.2 1.3 0.3 FINAL Gio Lopez [place] [facility] , [address] [place] [id number] 0 12/20 CBC w/ auto diff EO # K/uL 0.0 0.6 0.1 FINAL Gio Lopez [place] [facility] , [address] [place] [id number] 0 12/20 CBC w/ auto diff BA # K/uL 0.0 0.2 0.0 FINAL Gio Lopez [place] [facility] , [address] [place] [id number] 0 12/20 CBC w/ auto diff NRBC % #/100W BC 0.0 0.2 0.0 FINAL Gio Lopez [place] [facility] , [address] [place] [id number] 0 12/20 CBC w/ auto diff RBC M/uL 4.2 5.6 3.22 Low FINAL Gio Lopez [place] [facility] , [address] [place] [id number] 0 12/20 CBC w/ auto diff HCT % 39.0 49.0 34.0 Low FINAL Gio Lopez [place] [facility] , [address] [place] [id number] 0 12/20 CBC w/ auto diff MCV fL 80.0 104.0 105.6 High FINAL Gio Lopez [place] [facility] , [address] [place] [id number] 0 12/20 CBC w/ auto diff MCH pg 26.0 35.0 35.7 High FINAL Gio Lopez [place] [facility] , [address] [place] [id number] 0 12/20 CBC w/ auto diff MCHC g/dL 30.0 35.0 33.8 FINAL Gio Lopez [place] [facility] , [address] [place] [id number] 0 12/20 CBC w/ auto diff MPV fL 9.5 13.4 10.0 FINAL Gio Lopez [place] [facility] , [address] [place] [id number] 0 12/20 CBC w/ auto diff RDW % 11.3 15.6 15.30 FINAL Gio Lopez [place] [facility] , [address] [place] [id number] 0 12/21 Prote in/cr eatin ine ratio , rando m urine panel CREAT ININE , RANDO M URINE mg/dL 20.0 320.0 27 FINAL Gio Lopez QUEST, [facility] [address] [facility] [id number] 4 12/21 Prote in/cr eatin ine ratio , rando m urine panel PROTE IN/CR EATIN INE RATIO mg/gcr eat 25.0 148.0 1593 High FINAL Gio oJhn VALDES, [facility] [address] [facility] [id number] 4 12/21 Prote in/cr eatin ine ratio , rando m urine panel PROTE IN/CR EATIN INE RATIO mg/mgc reat 0.025 0.148 1.593 High FINAL Gio Lopez LUC[facility], [facility] [address] [facility] [id number] 4 12/21 Prote in/cr eatin ine ratio , rando m urine panel PROTE IN, TOTAL , RANDO M UR mg/dL 5.0 25.0 43 High FINAL Gio Lopez [facility] [address] [facility] [id number] 4 Medications Date Name Route Dose Frequency [...] kidney disease Active Oropharyngeal dysphagia Active Other senior living (current) drug therapy Active Acute kidney failure [...] at your satisfaction. Sincerely, Giancarlo Lowe MD [facility] Giancarlo Lowe MD Copy to:??Ulises Dowell MD FAX Beto Arguelles MD (Referring) Electronically signed by Giancarlo Lowe MD 10/30/2022 11:08 CDT
--- OUTSIDE RECORDS SUMMARY | 2024-12-31 12:15 | XMS_ITS ---
Author Name Interface, [id number] lity Address [address] [place] [address] Oncology Address [address] [place] [address] Allergies and Adverse Reactions Plan Reason for Visit Encounters Diagnostic Results Medications Problems Vital Signs Notes Section
--- OUTSIDE RECORDS SUMMARY | 2024-12-31 12:16 | XMS_ITS ---
Author Name Interface, [id number] lity Address [place] [address] [facility] Oncology Address [place] [address] Allergies and Adverse Reactions Plan Reason for Visit Encounters Diagnostic Results Medications Problems Vital Signs Notes Section
--- OUTSIDE RECORDS SUMMARY | 2024-12-31 12:16 | XMS_ITS ---
Author Name Interface, [id number] lity Address [address] [place] [address] Oncology Address [address] [place] [address] Allergies and Adverse Reactions Plan Reason for Visit Encounters Diagnostic Results Medications Problems Notes Section
--- OUTSIDE RECORDS SUMMARY | 2024-12-31 12:16 | XMS_ITS | CCD ---
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 [address] [facility] [phone] 0 12/21 Prote in/cr eatin ine ratio , rando m urine panel CREAT ININE , RANDO M URINE mg/dL 20.0 320.0 27 FINAL Gio VALDES, [facility] [address] [place] [id number] 4 12/21 Prote in/cr eatin ine ratio , rando m urine panel PROTE IN/CR EATIN INE RATIO mg/gcr eat 25.0 148.0 1593 High FINAL Gio VALDES, [facility] [address] [place] [id number] 4 12/21 Prote in/cr eatin ine ratio , keveno m urine panel PROTE IN, TOTAL , RANDO M UR mg/dL 5.0 25.0 43 High FINAL Gio VALDES, [facility] [address] [place] [id number] 4 04/21 CBC w/ auto diff Plate let, immat ure, fract ion % 0.9 11.2 3.8 FINAL Gio Lopez [place] [facility] - [facility], [address] [facility] [id number] 0 12/20 CBC w/ auto diff Tatyana # (ANC) K/uL 1.6 6.6 2.1 FINAL [facility] [place] [facility] , [address] [place] [id number] 0 12/20 CBC w/ auto diff IG % % 0.0 0.5 0.3 FINAL Gio Lopez [place] [facility] [place] [facility] , [address] [place] [id number] 0 12/20 CBC w/ auto diff MO # K/uL 0.2 1.3 0.3 FINAL Gio Lopez [place] [facility] [place] [facility] , [address] [place] [id number] 0 12/20 CBC w/ auto diff MCV fL 80.0 104.0 105.6 High FINAL Gio oLpez [place] [facility] [place] [facility] , [address] [place] [id number] 0 12/20 CBC w/ auto diff IG # K/uL 0.0 0.03 0.01 FINAL Gio Lopez [place] [facility] [place] [facility] , [address] [place] [id number] 0 12/20 CBC w/ auto diff MO % % 6.0 15.0 8.7 FINAL Gio Lopez [place] [facility] [place] [facility] , [address] [place] [id number] 0 12/20 CBC w/ auto diff EO # K/uL 0.0 0.6 0.1 FINAL Gio Lopez [place] [facility] [place] [facility] , [address] [place] [id number] 0 12/20 CBC w/ auto diff EO % % 0.0 7.0 1.3 FINAL Gio Lopez [place] [facility] [place] [facility] , [address] [place] [id number] 0 12/20 CBC w/ auto diff RBC M/uL 4.2 5.6 3.22 Low FINAL Gio Lopez [place] [facility] [place] [facility] , [address] [place] [id number] 0 12/20 CBC w/ auto diff MPV fL 9.5 13.4 10.0 FINAL Gio Lopez [place] [facility] [place] [facility] , [address] [place] [id number] 0 12/20 CBC w/ auto diff WBC K/uL 3.0 8.9 3.8 FINAL Gio Lopez [place] [facility] , [address] [place] [id number] 0 12/20 CBC w/ auto diff PLT K/uL 113.0 364.0 176 FINAL Gio Lopez [place] [facility] , [address] [place] [id number] 0 12/20 CBC w/ auto diff BA % % 0.0 2.0 0.3 FINAL Gio Lopez [place] [facility] [place] [facility] , [address] [place] [id number] 0 12/20 CBC w/ auto diff BA # K/uL 0.0 0.2 0.0 FINAL Gio Lopez [place] [facility] , [address] [place] [id number] 0 12/20 CBC w/ auto diff HGB g/dL 12.5 16.6 11.5 Low FINAL Gio Lopez [place] [facility] , [address] [place] [id number] 0 12/20 CBC w/ auto diff RDW % 11.3 15.6 15.30 FINAL Gio Lopez [place] [facility] [place] [facility] , [address] [place] [id number] 0 12/20 CBC w/ auto diff LY % % 14.0 41.0 33.3 FINAL Gio Lopez [place] [facility] [place] [facility] , [address] [place] [id number] 0 12/20 CBC w/ auto diff LY # K/uL 0.4 3.6 1.3 FINAL Gio Lopez [place] [facility] [place] [facility] , [address] [place] [id number] 0 12/20 CBC w/ auto diff MCH pg 26.0 35.0 35.7 High FINAL Gio Lopez [place] [facility] [place] [facility] , [address] [place] [id number] 0 12/20 CBC w/ auto diff MCHC g/dL 30.0 35.0 33.8 FINAL Gio Lopez [place] [facility] [place] [facility] , [address] [place] [id number] 0 12/20 CBC w/ auto diff NRBC % #/100W BC 0.0 0.2 0.0 FINAL Gio Lopez [place] [facility] , [address] [place] [id number] 0 12/20 CBC w/ auto diff HCT % 39.0 49.0 34.0 Low FINAL Gio Lopez [place] [facility] , [address] [place] [id number] 0 12/20 CBC w/ auto diff Tatyana % % 43.0 74.0 56.1 FINAL Gio Lopez [place] [facility] [place] [facility] , [address] [place] [id number] 0 06/08 [facility] other lab 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 d 12/20 CMP Alkal ine phosp hatas e U/L 36.0 125.0 117 FINAL Gio Lopez * [facility] , [address] [facility] [id number] 0 12/20 CMP ALT/S GPT U/L 0.0 49.0 33 FINAL Gio Lopez * [facility] , [address] [facility] [id number] 0 12/20 CMP Calci um mg/dL 8.4 10.2 7.7 Low FINAL Gio Lopez * [facility] , [address] [facility] [address] [facility] [id number] 0 12/20 CMP GFR estim ate ml/min /1.73m ^2 35.1 Low GFR is calculate d using the CKD-EPI equation. FINAL Gio Lopez * [facility] , [address] [facility] [address] [facility] [id number] 0 12/20 CMP CO2 mmol/L 22.0 30.0 [...] * [facility] , [address] [facility] [id number] 0 12/20 CMP Gluco se mg/dL 74.0 100.0 130 High FINAL Gio Lopez * [facility] , [address] [facility] [id number] 0 12/20 CMP Chlor viola mmol/L 96.0 107.0 105 FINAL Gio Lopez * [facility] , [address] [id number] 0 12/20 CMP Total prote in g/dL 6.3 8.2 5.5 Low FINAL Gio John * [facility] , [address] [facility] [id number] 0 12/20 CMP BUN mg/dL 9.0 20.0 33.0 High FINAL Gio Lopez * [facility] , [address] [facility] [id number] 0 12/20 CMP Creat inine mg/dL 0.66 1.25 1.90 High FINAL Gio John * [facility] , [address] [id number] 0 12/20 CMP AST/S GOT U/L 17.0 59.0 45 FINAL Gio Lopez * [facility] , [address] [id number] 0 12/20 CMP Album in g/dL 3.5 5.0 2.9 Low FINAL Gio John * [facility] , [address] [id number] 0 12/20 CMP Bilir ubin, total mg/dL 0.2 1.3 0.2 FINAL Gio Lopez * [facility] , [address] [facility] [id number] 0 12/20 CMP Sodiu m mmol/L 137.0 145.0 132 Low FINAL Gio John * [facility] , [address] [facility] [id number] 0 12/20 CMP Potas sium mmol/L 3.5 5.1 4.6 FINAL Gio John * [facility] , 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 Lopez or and pembro to follow Ordered 02/17/2024 Physician Order RTC MD/STEAM TURBINE ASSEMBLER Dr. Lopez or and pembro to follow Ordered 02/17/2024 Physician Order RTC STEAM TURBINE ASSEMBLER/PA and infusion Ordered 03/09/2024 Physician Order RTC MD infusion Orde red 03/09/2024 Physician Order PET/CT scan, sku ll base/mid thigh metastatic renal cell follow up directly compare to last imaging (10/2023) pt on immunotherapy Ordered 03/30/2024 Physician Order X-ray ribs right sided anterior rib pain. patient with h/o metastatic RCC. Ordered 03/31/2024 Physician Order RTC STEAM TURBINE ASSEMBLER/PA and infusion keytruda Ordered 04/21/2024 Physician Order [...] Systolic 136 01/06/2024 Intravascular Diastolic 72 01/27/2024 Intravascular Systolic 126 01/27/2024 Intravascular Diastolic 78 01/27/2024 BSA 1.90 01/27/2024 BMI 25.54 01/27/2024 Height 68.00 01/27/2024 Weight 168.00 01/27/2024 Pain Scale 0.00 01/27/2024 Oxygen Saturation 98.00 01/27/2024 Respiratory Rate 16.00 01/27/2024 Heart Beat 61.00 01/27/2024 Body Temperature 96.90 02/17/2024 BMI 24.97 02/17/2024 Height 68.00 02/17/2024 Weight 164.20 02/17/2024 Pain Scale 2.00 02/17/2024 BSA 1.88 02/17/2024 Oxygen Saturation 98.00 02/17/2024 Respiratory Rate 16.00 02/17/2024 Heart Beat 51.00 02/17/2024 Body Temperature 97.50 02/17/2024 Intravascular Systolic 138 02/17/2024 Intravascular Diastolic 72 03/03/2024 BMI 25.42 03/03/2024 Height 68.00 03/03/2024 Weight 167.20 03/03/2024 Pain Scale 0.00 03/03/2024 Intravascular Systolic 148 03/03/2024 Intravascular Diastolic 82 03/03/2024 BSA 1.89 03/03/2024 Oxygen Saturation 95.00 03/03/2024 Respiratory Rate 16.00 03/03/2024 Body Temperature 96.60 03/03/2024 Heart Beat 59.00 03/09/2024 BSA 1.89 03/09/2024 BMI 25.44 03/09/2024 Height 68.00 03/09/2024 Weight 167.30 03/09/2024 Body Temperature 95.80 03/09/2024 Intravascular Systolic 170 03/09/2024 Intravascular Diastolic 81 03/09/2024 Oxygen Saturation 98.00 03/09/2024 Respiratory Rate 16.00 03/09/2024 Heart Beat 61.00 03/09/2024 Pain Scale 0.00 03/30/2024 Body Temperature 96.50 03/30/2024 Heart Beat 57.00 03/30/2024 Respiratory Rate 16.00 03/30/2024 Oxygen Saturation 98.00 03/30/2024 Intravascular Systolic 170 03/30/2024 Intravascular Diastolic 84 03/30/2024 Pain Scale 8.00 03/30/2024 Weight 158.00 03/30/2024 Height 68.00 03/30/2024 BMI 24.02 03/30/2024 BSA 1.85 03/30/2024 Intravascular Systolic 162 03/30/2024 Intravascular Diastolic 76 04/21/2024 BMI 25.48 04/21/2024 Height 68.00 04/21/2024 [...] 2.00 12/20/2024 Weight 155.90 Notes Section * Med Onc Follow-up Note [...] smoker. ?No significant alcohol use.? Lives with in?[place].?He was in [employer]?and served in [employer].? They traveled to?[facility]?for the winter months. Vital Signs Blood pressure: 122/62, R arm, Regular, Pulse: 67, Temperature: 97.4 F, Respirations: 16, O2 sat: 100%, At Rest, Room Air, Pain Scale: 2, Height: 68 in, Weight: 155.9 lb, BSA: 1.84, BMI: 23.7 kg/m2 Covid-19 vaccine (Picocent) (01/01/2022); Covid-19 vaccine (Picocent) (01/01/2022); Covid-19 vaccine (Picocent) (05/21/2022); Covid-19 vaccine (Pfizer) (01/01/2022); Covid-19 vaccine [...] Service:?11/20/2024 Attending Physician:?Gio Lopez (Hematology/Oncology) Referring Provider: Mihcael Arguelles MD (Urology) HEMATOLOGY/ MEDICAL ONCOLOGY FOLLOW [...] smoker. ?No significant alcohol use.? Lives with in?[place].?He was in the [employer]?and served in [place].? They traveled to?[facility]?for the winter months. Vital Signs Blood [...] smoker. ?No significant alcohol use.? Lives with in?[place].?He was in the [employer]?and served in [place].? They traveled to?[facility]?for the winter months. Vital Signs Blood [...] Lopez MD Date of Service:?09/14/2024 Attending Physician:?Gio Lpoez (Hematology/Oncology) Referring Provider: Michael Arguelles MD (Urology) [...] smoker. ?No significant alcohol use.? Lives with in?[place].?He was in [employer]?and served in [employer].? They traveled to?[facility]?for the winter. Vital Signs Blood pressure: 130/86, R arm, Regular, Pulse: 64, Temperature: 97.1 F, Respirations: 16, O2 sat: 95%, At Rest, Room Air, Pain Scale: 0, Height: 68 in, Weight: 160.6 lb, BSA: 1.86, BMI: 24.42 kg/m2 Covid-19 vaccine (Picocent) (06/01/2024); Covid-19 vaccine (Picocent) (01/01/2022); Covid-19 vaccine (Picocent) (05/21/2022); Covid-19 vaccine (Picocent) (01/01/2022); Covid-19 vaccine (Pfizer) (09/02/2023),Patient declined/rejected; Covid-19 [...] therapy Interval History The patient?just returned to [place] after being in [place] for the last 3 months.? Unfortunately,?he has [...] smoker. ?No significant alcohol use.? Lives with in?[place].?He was in the [employer]?and served in [employer].? They traveled to?[facility]?for the winter months. Vital Signs Blood pressure: 116/72, R arm, Regular, Pulse: 66, Temperature: 97.4 F, Respirations: 16, O2 sat: 97%, At Rest, Room Air, Pain Scale: 0, Height: 68 in, Weight: 154.3 lb, BSA: 1.83, BMI: 23.46 kg/m2 Covid-19 vaccine (Picocent) (01/01/2022); Covid-19 vaccine (Picocent) (01/01/2022); Covid-19 vaccine (Picocent) (06/01/2024); Covid-19 vaccine (Pfizer) (05/21/2022); Covid-19 vaccine [...] daily 5.? Patient plans on being in [place] from May to july.? He will return to [place] in late July. 6.?I will plan to [...] smoker. ?No significant alcohol use.? Lives with in?[place].?He was in the [employer]?and served in [place].? They traveled to?[facility]?for the winter months. Vital Signs Blood [...] signed by Gio Lopez MD 06/01/2024 20:11 MANAGER OF PROCUREMENT * Med Onc Follow-up Note Patient Name: [...] 2.? Referring back to Rad Onc in [place] 2.? Continue pembrolizumab (Keytruda) 200 mg every 3 weeks 4. ?Continue Lenvima 10 mg daily 5.? Patient plans on being in [place] from May to july.? Plan to give?the next dose ofKeytruda here, and the one in late May in [place] 6.? Continue levothyroxine.? TSH from today pending [...] smoker. ?No significant alcohol use.? Lives with in?[place].?He was in the [employer]?and served in [place].? They traveled to?[facility]?for the winter months. Vital Signs Blood [...] signed by Gio Lopez MD 05/11/2024 13:01 MANAGER OF PROCUREMENT * Med Onc Follow-up Note Patient Name: KUMAR MALONE Date Of : 1945 Today's Provider:?Mary Jane Ko RN, WEBBING INSPECTOR, MA, OCN Date of Service:?04/21/2024 Attending Physician:?Gio [...] repeat PET/CT in April?before he goes to [place] for 3 months 5.? Continue levothyroxine.? TSH [...] He is [place] today and he will transition his care to [place] oncology over the winter months. Review of [...] smoker. ?No significant alcohol use.? Lives with in?[place].?He was in the [employer]?and served in [employer].? They traveled to?[facility]?for the winter months. Vital Signs Blood pressure: 176/80, Sitting, R arm, Pulse: 61, Temperature: 97.8 F, Respirations: 18, O2 sat: 98%, At Rest, Room Air, Pain Scale: 0, Height: 68 in, Weight: 167.6 lb, BSA: 1.9, BMI: 25.48 kg/m2 Covid-19 vaccine (Pfizer) (01/01/2022); Covid-19 vaccine (Picocent) (05/21/2022); Covid-19 vaccine (Picocent) (01/01/2022); Covid-19 vaccine (Pfizer) (01/01/2022); Covid-19 vaccine [...] Ko RN, DAVID, MA, OCN 04/21/2024 11:00 MANAGER OF PROCUREMENT * Med Onc Follow-up Note Patient Name: [...] repeat PET/CT in April?before he goes to [place] for 3 months 5.? Continue levothyroxine.? TSH [...] smoker. ?No significant alcohol use.? Lives with in?[place].?He was in the [employer]?and served in [place].? They traveled to?[facility]?for the winter months. Vital Signs Blood [...] signed by Gio Lopez MD 03/30/2024 20:36 MANAGER OF PROCUREMENT * Med Onc Follow-up Note Patient Name: [...] PET/CT in late April?before he goes to [place] for 3 months 5.? Continue levothyroxine at [...] smoker. ?No significant alcohol use.? Lives with in?[place].?He was in the [employer]?and served in [place].? They traveled to?[facility]?for the winter months. Vital Signs Blood [...] : 1945 Today's Provider:?Mary Jane Ko RN, WEBBING INSPECTOR, MA, OCN Date of Service:?02/17/2024 Attending Physician:?Gio [...] symptoms. They are planning to travel to [place] for the winter.They are hoping to leave [...] smoker. ?No significant alcohol use.? Lives with in?[place].?He was in [employer]?and served in [employer].? They traveled to?[facility]?for the winter. Vital Signs Blood pressure: [...] smoker. ?No significant alcohol use.? Lives with in?[place].?He was in the [employer]?and served in [employer].? They traveled to?[facility]?for the winter months. Vital Signs Blood [...] : 1945 Today's Provider:?Mary Jane Ko RN, WEBBING INSPECTOR, MA, OCN Date of Service:?01/06/2024 Attending Physician:?Gio [...] smoker. ?No significant alcohol use.? Lives with in?[place].?He was in the [employer]?and served in [place].? They traveled to?[facility]?for the winter months. Vital Signs Blood [...]
--- OUTSIDE RECORDS SUMMARY | 2024-12-31 12:16 | XMS_ITS ---
Author Name Interface, [id number] lity Address [place] [address] [facility] Address [place] [address] Allergies and Adverse Reactions Medication/Group Name Reaction Severity Date Sulfamide Hives 06/03/2023 Plan Date Type Value 03/05/2025 APPOINTMENT Farray/ov/jg 08/03/2024 APPOINTMENT FARRAY/ INF PEMB ROLIZUMAB/JG 08/02/2024 APPOINTMENT Farray/lab/ov/jg 08/02/2024 APPOINTMENT Farray/lab/ov/jg 07/13/2024 APPOINTMENT FARRAY/ INF PEMB ROLIZUMAB/JG 07/12/2024 APPOINTMENT Farray/Solano/la b/ov/jg 07/12/2024 APPOINTMENT FARRAY/SOLANO/OV /CZ 07/12/2024 LABORDER CMP 07/12/2024 LABORDER Free T4 + TSH pa pavan 07/12/2024 LABORDER CBC w/auto diff with reflex 07/12/2024 LABORDER Urine protein el ectrophoresis, random urine 08/02/2024 LABORDER CBC w/auto diff with reflex 08/02/2024 LABORDER CMP Reason for Visit FARRAY/ INF PEMBROLIZUMAB/JG Encounters Date Name 07/12/2024 Other termite helper (cur rent) drug therapy 07/12/2024 Renal cancer Diagnostic Results Date Type Test Units Lower Limit Upper Limit Result Flag Comments Status Ordered By Specimen Source Lab Address 07/12 Urine prote in elect mario dias urine Total prote in, UPE mg/dL 164.2 Jocelyn l FINAL Arnaud Burt ergmarilee Urine [HD] [facility] [address].[address].Ph one: [phone].Lab oratory Director : Shyam Villegas 07/12 Urine prote in elect jewell resendiz rando m urine Album in, UPE % 69.0 Jocelyn l FINAL Arnaud Farray-B erges Urine [HD] [facility]. [address] [place] [phone].Ph one: [phone].Lab oratory Director : Shyam Stuart. 07/12 Urine prote in elect jewell resendiz , rando m urine Alpha 1 globu ciro, UPE % 5.7 Jocelyn l FINAL Arnaud Farray-B erges Urine [HD] [facility]. [address] [place] [address] -[address].Ph one: [phone].Lab oratory Director : Shyam Villegas 07/12 Urine prote in elect jewell resendiz , rando m urine Alpha 2 globu ciro, UPE % 5.7 Jocelyn l FINAL Arnaud Farray-B erges Urine [HD] [facility]. [address] [place] [phone] -[phone].Ph one: [phone].Lab oratory Director : Shyam Villegas 07/12 Urine prote in elect jewell resedniz , rando m urine Beta globu ciro, UPE % 10.8 Jocelyn l FINAL Arnaud Farray-B erges Urine [HD] [facility]. [address] [place] [phone].Ph one: .Lab oratory Director : Shyam Villegas 07/12 Urine prote in elect arielaho martín , rando m urine Gamma globu ciro, UPE % 8.9 Jocelyn l FINAL Arnaud Farray-B erges Urine [HD] [facility]. [address] [place] [phone] -[address].Ph one: .Lab oratory Director : Shyam Villegas 07/12 Urine prote in [facility] , [place] urine M-Spi ke, mg/24 hr % Not Observe d Jocelyn l FINAL Arnaud Saldanaray-B erges Urine [facility] [address] [place] [phone] -[address].Ph one: .Lab oratory Director : Shyam Villegas 07/12 Urine prote in [facility] , [facility] urine Lab resul t note Comment Jocelyn l Protein electroph oresis scan will follow via computer, mail, orcourier delivery. FINAL Arnaud Farray-B erges Urine [HD] [facility]. [address] [place] [phone].Ph one: .Lab oratory Director : Shyam Villegas 07/12 Urine prote in [facility] urine PDF . Jocelyn l FINAL Arnaud Saldanaray-B erges Urine [HD] [facility]. [address] [place] [phone] -[phone].Ph one: .Lab oratory Director : Shyam Villegas 07/12 T4, free panel T4, free ng/dL 0.82 1.77 0.99 Jocelyn l FINAL Mare Solano Serum [HD] [facility]. [address] [place] [phone] -[phone].Ph one: .Lab oratory Director : Shyam Villegas 07/12 TSH panel TSH uIU/mL 0.45 4.5 5.500 High FINAL Mare Solano Serum [HD] [facility]. [address] [place] [phone] -[address]881.Ph one: [phone].Lab oratory Director : Shyam Villegas 07/12 CBC w/aut o diff with refle x WBC 10^3/u L 4.8 10.8 5.2 FINAL Mare Solano Whole Blood [facility] [address] [address] CLIA ID# [id number] 07/12 CBC w/aut o diff with refle x RBC 10^6/u L 4.7 6.1 4.24 Low FINAL Mare Solano Whole Blood [facility] [address] [address] CLIA ID# [id number] 07/12 CBC w/aut o diff with refle x HGB g/dL 14.0 18.0 13.7 Low FINAL Mare Solano Whole Blood [facility] [address] [address] CLIA ID# [id number] 10 07/12 CBC w/aut o diff with refle x HCT % 40.0 50.0 41.6 FINAL Mare Solano Whole Blood [facility] [address] [address] CLIA ID# [id number] 07/12 CBC w/aut o diff with refle x MCV fL 80.0 94.0 98.1 High FINAL Mare Solano Whole Blood [facility] [address] [address] CLIA ID# [id number] 10 07/12 CBC w/aut o diff with refle x MCH pg 27.0 31.0 32.3 High FINAL Mare Solano Whole Blood [facility] [address] [address] CLIA ID# [id number] 07/12 CBC w/aut o diff with refle x MCHC g/dL 33.0 37.0 32.9 Low FINAL Mare Solano Whole Blood [facility] [address] [address] CLIA ID# [id number] 10 07/12 CBC w/aut o diff with refle x PLT 10^3/u L 130.0 400.0 158 FINAL Mare [place] Whole Blood [facility] [address] [address] CLIA ID# [id number] 10 07/12 CBC w/aut o diff with refle x MPV fL 9.4 12.4 10.2 FINAL [facility] Whole Blood [facility] [address] [address] CLIA ID# [id number] 10 07/12 CBC w/aut o diff with refle x RDW % 10.5 14.5 13.2 FINAL Mare [place] Whole Blood [facility] [address] [address] CLIA ID# [id number] 07/12 CBC w/aut o diff with refle x Tatyana % % 40.0 77.0 67.3 FINAL [facility] Whole Blood [facility] [address] [address] CLIA ID# [id number] 10 07/12 CBC w/aut o diff with refle x Tatyana # (ANC) 10^3/u L 1.5 6.5 3.49 FINAL [facility] Whole Blood [facility] [address] [address] CLIA ID# [id number] 10 07/12 CBC w/aut o diff with refle x IG % % 0.0 0.5 0.2 FINAL Mare [place] Whole Blood [facility] [address] [address] CLIA ID# [id number] 10 07/12 CBC w/aut o diff with refle x IG # 10^3/u L 0.0 0.03 0.01 FINAL [facility] Whole Blood [facility] [address] [address] CLIA ID# [id number] 10 07/12 CBC w/aut o diff with refle x LY % % 15.0 41.0 22.7 FINAL Mare Solano Whole Blood [facility] [address] [address] CLIA ID# [id number] 10 07/12 CBC w/aut o diff with refle x LY # 10^3/u L 1.2 3.4 1.18 Low FINAL Mare Solano Whole Blood [facility] [address] [address] CLIA ID# [id number] 10 07/12 CBC w/aut o diff with refle x MO % % 3.0 11.0 7.7 FINAL Mare [place] Whole Blood [facility] [address] [address] CLIA ID# [id number] 10 07/12 CBC w/aut o diff with refle x MO # 10^3/u L 0.0 1.0 0.40 FINAL Mare [place] Whole Blood [facility] [address] [address] CLIA ID# [id number] 10 07/12 CBC w/aut o diff with refle x EO % % 0.0 3.0 1.7 FINAL Mare [place] Whole Blood [facility] [address] [address] CLIA ID# [id number] 10 07/12 CBC w/aut o diff with refle x EO # 10^3/u L 0.0 0.3 0.09 FINAL Mare [place] Whole Blood [facility] [address] [address] CLIA ID# [id number] 10 07/12 CBC w/aut o diff with refle x BA % % 0.0 1.0 0.4 FINAL Mare Solano Whole Blood [facility] [address] [address] CLIA ID# [id number] 10 07/12 CBC w/aut o diff with refle x BA # 10^3/u L 0.0 0.2 0.02 FINAL [facility] Whole Blood [facility] [address] [address] CLIA ID# [id number] 10 07/12 CBC w/aut o diff with refle x NRBC, % % 0.0 0.2 0.0 FINAL [facility] Whole Blood [facility] [address] [address] CLIA ID# [id number] 10 07/12 CBC w/aut o diff with refle x NRBC, absol muckleshoot, x 10^3/ uL 10^3/u L 0.0 0.01 0.00 FINAL [facility] Whole Blood [facility] [address] [address] CLIA ID# [id number] 10 07/12 CMP Total prote in g/dL 6.4 8.2 5.8 Low FINAL [facility] n [address] [address] CLIA ID# [id number] 39 07/12 CMP Globu ciro g/dL 2.2 4.2 3.0 FINAL [facility] n [address] [address] CLIA ID# [id number] 07/12 CMP A/G ratio 0.8 2.0 0.9 FINAL [facility] n [address] [address] CLIA ID# [id number] 07/12 CMP Bilir ubin, total mg/dL 0.2 1.0 0.4 FINAL [facility] [address] [address] CLIA ID# [id number] 07/12 CMP Alkal ine phosp hatas e U/L 46.0 116.0 99 FINAL [facility] n [address] [address] CLIA ID# [id number] 07/12 CMP AST/S GOT U/L 15.0 37.0 25 FINAL [facility] [address] [address] CLIA ID# [id number] 39 07/12 CMP ALT/S GPT U/L 16.0 63.0 32 FINAL [facility] [address] [address] CLIA ID# [id number] 07/12 CMP Sodiu m mmol/L 136.0 145.0 141 FINAL [facility] [address] [address] CLIA ID# [id number] 39 07/12 CMP Potas sium mmol/L 3.5 5.1 4.4 FINAL [facility] [address] [address] CLIA ID# [id number] 39 07/12 CMP Chlor viola mmol/L 97.0 107.0 105 FINAL [facility] [address] [address] CLIA ID# [id number] 07/12 CMP CO2 mmol/L 21.0 32.0 30.6 FINAL [facility] n [address] [address] CLIA ID# [id number] 02/19 /2025 CMP Gluco se mg/dL 74.0 106.0 147 High FINAL [facility] n [address] [address] CLIA ID# [id number] 07/12 CMP BUN mg/dL 7.0 18.0 23 High FINAL [facility] n [address] [address] CLIA ID# [id number] 39 07/12 CMP Creat inine , mg/dL mg/dL 0.55 1.3 1.59 High FINAL [facility] n [address] [address] CLIA ID# [id number] 07/12 CMP GFR estim ate mil/mi n/1.73 m2 44 Low Result based on the eGFR 2020 calculati on.60-89 mL/min/1. 73m^2 without kidney damage may be normal.60 -89 mL/min/1. 73m^2 for 3 months or more, along with kidney damage, may indicate early kidney disease.C alculatio n modified to the 2020 formula effective 08/22/22. FINAL [facility] n [address] [address] CLIA ID# [id number] 39 07/12 CMP BUN/C reati nine ratio 6.0 25.0 14.5 FINAL [facility] n [address] [address] CLIA ID# [id number] 39 07/12 CMP Calci um mg/dL 8.5 10.1 8.3 Low FINAL [facility] n [address] [address] CLIA ID# [id number] 39 07/12 CMP Album in g/dL 3.4 5.0 2.8 Low FINAL [facility] n [address] [address] CLIA ID# [id number] 39 08/02 CBC w/aut o diff with refle x WBC 10^3/u L 4.8 10.8 5.3 FINAL Arnaud Leblancy-B erges Whole Blood [facility] [address] [address] CLIA ID# [id number] 10 08/02 CBC w/aut o diff with refle x RBC 10^6/u L 4.7 6.1 3.96 Low FINAL Arnaud Saldanaray-B erges Whole Blood [facility] [address] [address] CLIA ID# [id number] 10 08/02 CBC w/aut o diff with refle x HGB g/dL 14.0 18.0 13.2 Low FINAL Arnaud Lbelancy-B erges Whole Blood [facility] [address] [address] CLIA ID# [id number] 10 08/02 CBC w/aut o diff with refle x HCT % 40.0 50.0 40.0 FINAL Arnaud Abad-B erges Whole Blood [facility] [address] [address] CLIA ID# [id number] 10 08/02 CBC w/aut o diff with refle x MCV fL 80.0 94.0 101.0 High FINAL Arnaud Saldanaray-B erges Whole Blood [facility] [address] [address] CLIA ID# [id number] 10 08/02 CBC w/aut o diff with refle x MCH pg 27.0 31.0 33.3 High FINAL Arnaud Saldanaray-B erges Whole Blood [facility] [address] [address] CLIA ID# [id number] 10 08/02 CBC w/aut o diff with refle x MCHC g/dL 33.0 37.0 33.0 FINAL Arnaud joiner Whole Blood [facility] [address] [address] CLIA ID# [id number] 10 08/02 CBC w/aut o diff with refle x PLT 10^3/u L 130.0 400.0 167 FINAL Arnaud joiner Whole Blood [facility] [address] [address] CLIA ID# [id number] 10 08/02 CBC w/aut o diff with refle x MPV fL 9.4 12.4 10.1 FINAL Arnaud joiner Whole Blood [facility] [address] [address] CLIA ID# [id number] 10 08/02 CBC w/aut o diff with refle x RDW % 10.5 14.5 13.3 FINAL Arnaud joiner Whole Blood [facility] [address] [address] CLIA ID# [id number] 10 08/02 CBC w/aut o diff with refle x Tatyana % % 40.0 77.0 62.0 FINAL Arnaud joiner Whole Blood [facility] [address] [address] CLIA ID# [id number] 10 08/02 CBC w/aut o diff with refle x Tatyana # (ANC) 10^3/u L 1.5 6.5 3.29 FINAL Arnaud joiner Whole Blood [facility] [address] [address] CLIA ID# [id number] 10 08/02 CBC w/aut o diff with refle x IG % % 0.0 0.5 0.4 FINAL Arnaud joiner Whole Blood [facility] [address] [address] CLIA ID# [id number] 10 08/02 CBC w/aut o diff with refle x IG # 10^3/u L 0.0 0.03 0.02 FINAL Arnaud joiner Whole Blood [facility] [address] [address] CLIA ID# [id number] 10 08/02 CBC w/aut o diff with refle x LY % % 15.0 41.0 28.2 FINAL Arnaud joiner Whole Blood [facility] [address] [address] CLIA ID# [id number] 10 08/02 CBC w/aut o diff with refle x LY # 10^3/u L 1.2 3.4 1.50 FINAL Arnaud joiner Whole Blood [facility] [address] [address] CLIA ID# [id number] 10 08/02 CBC w/aut o diff with refle x MO % % 3.0 11.0 7.5 FINAL Arnaud joiner Whole Blood [facility] [address] [address] CLIA ID# [id number] 10 08/02 CBC w/aut o diff with refle x MO # 10^3/u L 0.0 1.0 0.40 FINAL Arnaud joiner Whole Blood [facility] [address] [address] CLIA ID# [id number] 10 08/02 CBC w/aut o diff with refle x EO % % 0.0 3.0 1.5 FINAL Arnaud joiner Whole Blood [facility] [address] [address] CLIA ID# [id number] 10 08/02 CBC w/aut o diff with refle x EO # 10^3/u L 0.0 0.3 0.08 FINAL Arnaud joiner Whole Blood [facility] [address] [address] CLIA ID# [id number] 10 08/02 CBC w/aut o diff with refle x BA % % 0.0 1.0 0.4 FINAL Arnaud joiner Whole Blood [facility] [address] [address] CLIA ID# [id number] 10 08/02 CBC w/aut o diff with refle x BA # 10^3/u L 0.0 0.2 0.02 FINAL Arnaud joiner Whole Blood [facility] [address] [address] CLIA ID# [id number] 10 08/02 CBC w/aut o diff with refle x NRBC, % % 0.0 0.2 0.0 FINAL Arnaud joiner Whole Blood [facility] [address] [address] CLIA ID# [id number] 10 08/02 CBC w/aut o diff with refle x NRBC, absol muck[place]oot, x 10^3/ uL 10^3/u L 0.0 0.01 0.00 FINAL Arnaud joiner Whole Blood [facility] [address] [address] CLIA ID# [id number] 10 08/02 CMP Sodiu m mmol/L 136.0 145.0 141 FINAL Arnaud joiner Serum [facility] n [address] [address] CLIA ID# [id number] 39 08/02 CMP Potas sium mmol/L 3.5 5.1 3.9 FINAL Arnaud joiner Serum [facility] n [address] [address] CLIA ID# [id number] 39 08/02 CMP Chlor viola mmol/L 97.0 107.0 104 FINAL Arnaud joiner Serum [facility] n [address] [address] CLIA ID# [id number] 39 08/02 CMP CO2 mmol/L 21.0 32.0 27.7 FINAL Arnaud AbadAlysia douglass Serum [facility] [address] [address] CLIA ID# [id number] 39 08/02 CMP Gluco se mg/dL 74.0 106.0 155 High FINAL Arnaud joiner Serum [facility] n [address] [address] CLIA ID# [id number] 39 08/02 CMP BUN mg/dL 7.0 18.0 22 High FINAL Arnaud douglass Serum [facility] [address] [address] CLIA ID# [id number] 39 08/02 CMP Creat inine , mg/dL mg/dL 0.55 1.3 1.66 High FINAL Arnaud AbadAlysia ergmarilee Serum [facility] [address] [address] CLIA ID# [id number] 39 08/02 CMP GFR estim ate mil/mi n/1.73 m2 41 Low Result based on the eGFR 2020 calculati on.60-89 mL/min/1. 73m^2 without kidney damage may be normal.60 -89 mL/min/1. 73m^2 for 3 months or more, along with kidney damage, may indicate early kidney disease.C lien n modified to the 2020 formula effective 08/22/22. FINAL Arnaud joiner Serum [facility] n [address] [address] CLIA ID# [id number] 39 08/02 CMP BUN/C reati nine ratio 6.0 25.0 13.3 FINAL Arnaud douglasses Serum [facility] n [address] [address] CLIA ID# [id number] 39 08/02 CMP Calci um mg/dL 8.5 10.1 8.3 Low FINAL Arnaud douglasses Serum [facility] n [address] [address] CLIA ID# [id number] 39 08/02 CMP Album in g/dL 3.4 5.0 2.9 Low FINAL Arnaud douglasses Serum [facility] n [address] [address] CLIA ID# [id number] 39 08/02 CMP Total prote in g/dL 6.4 8.2 6.1 Low FINAL Arnaud joiner Serum [facility] n [address] [address] CLIA ID# [id number] 39 08/02 CMP Globu ciro g/dL 2.2 4.2 3.2 FINAL Arnaud joiner Serum [facility] n [address] [address] CLIA ID# [id number] 39 08/02 CMP A/G ratio 0.8 2.0 0.9 FINAL Arnaud joiner Serum [facility] n [address] [address] CLIA ID# [id number] 39 08/02 CMP Bilir ubin, total mg/dL 0.2 1.0 0.4 FINAL [facility] Serum [facility] n [address] [address] CLIA ID# [id number] 39 08/02 CMP Alkal ine phosp hatas e U/L 46.0 116.0 137 High FINAL [facility] Serum [facility] n [address] [address] CLIA ID# [id number] 39 08/02 CMP AST/S GOT U/L 15.0 37.0 35 FINAL [facility] n [address] [address] CLIA ID# [id number] 39 08/02 CMP ALT/S GPT U/L 16.0 63.0 35 FINAL [facility] n [address] [address] CLIA ID# [id number] Medications Date Name Route Dose Frequency Instructions [...] Diagnosis Resolution Date Renal cancer Active Other termite helper (current) drug therapy Active Vital Signs Date Type Value 07/12/2024 BMI 25.24 07/12/2024 Height 68.00 07/12/2024 Weight 166.00 07/12/2024 Pain Scale 0.00 07/12/2024 BSA 1.89 07/12/2024 Respiratory Rate 18.00 07/12/2024 Heart Beat 63.00 07/12/2024 Body Temperature 97.20 07/12/2024 Intravascular Systolic 178 07/12/2024 Intravascular Diastolic 99 07/13/2024 Heart Beat 58.00 07/13/2024 Height 68.00 07/13/2024 Pain Scale 0.00 07/13/2024 Intravascular Systolic 176 07/13/2024 Intravascular Diastolic 90 07/13/2024 Oxygen Saturation 98.00 07/13/2024 Respiratory Rate 18.00 07/13/2024 Body Temperature 97.10 08/02/2024 Intravascular Systolic 161 08/02/2024 Intravascular Diastolic 89 08/02/2024 Respiratory Rate 18.00 08/02/2024 Heart Beat 66.00 08/02/2024 Body Temperature 97.80 08/02/2024 BMI 24.60 08/02/2024 Height 68.00 08/02/2024 Pain Scale 0.00 08/02/2024 Weight 161.80 08/02/2024 BSA 1.87 08/03/2024 Pain Scale 0.00 08/03/2024 Intravascular Systolic 152 08/03/2024 Intravascular Diastolic 81 08/03/2024 Height 68.00 08/03/2024 Heart Beat 102.00 Notes Section * ELPIDIO HemOnc Follow Up- [facility] [place] [address] [address] [address] P:?? PATIENT:??KUMAR MALONE :??1945 Date of Service:??07/12/2024 Referring Provider: MD Gio Boyd MD Chief [...] us last winter and then return to [place]??where he continue with the treatment.?? A PET scan done??05/08/2024 showed a subcentimeter FDGavid soft tissue nodule in the right fifth/sixth intercostal space??suspicion for an isolated site of metastatic disease.?? He received SBRT that ended 06/09/2024. He continues to??tolerate treatment well with pembrolizumab and lenvatinib. ??He is doing well today with no complaints. 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 * He will be returning to [place] mid July??after his pembrolizumab dose is completed in July. . Note dictated with a voice recognition system, subject to transcriptional variance. Mare TIJERINA PA-C ? Send copy of note to: MD Gio Boyd MD . 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 * Nurse Note for: 03-AUG-24 [place] [facility] Nurse Note Print Location: Unknown Date/Time Printed: 12/31/2024 12:13 ([facility]) Patient: KUMAR MALONE Sex: Male : 1945 [...] Entered By Danisha Hirsch RN, Sr on 11:27 Patient Assessment : Positive results Assessment : [...] Entered By Danisha Hirsch RN, Sr on 11:27 IV Access/Lab Draw : IV Access-Peripheral - [...] mg Amount in mL: 8 Pharmacy dispense: [place]: [id number] Dispense/Waste: 200/0 mg Given Dose/Discard: 200/0 mg [...] Pharmacy plan: Dispense/Waste: 1000/0 mL Pharmacy dispense: [facility]: [phone] Dispense/Waste: 1000/0 ML Given Dose/Discard: 1000/0 mL Admin Details: IV Administration: Piggyback, CIV Completion: Therapy Completed without adverse event Start Time: 11:27, Entered By: Danisha Hirsch RN, Sr, Stop Time: 12:28, Entered By: Danisha Torrey RN Sr Free Text Note : I attest that the medications in the [facility] were double checked prior to administration. I [...] settings are correct. Entered By Danisha Hirsch RN Sr on 13:16 * Nurse Note for: 13-JUL-24 [facility] Nurse Note Print Location: Unknown Date/Time Printed: 12/31/2024 12:13 ([facility]) Patient: KUMAR AMLONE Sex: Male : 1945 Date of Service: 07/13/2024 Allergies : Sulfamide Vital Signs : Time: 11:46. Height: 68 in (172.72 cm). Temperature: 97.1 F (36.17 C). Pulse: 58 (/min) . Respirations: 18 (/min) . Blood pressure: 176/90 (mm Hg) Nurse notified. Pain Scale: 0. O2 Saturation: 98 (%). Entered by Sherry Sharp CMA 07/13/2024 15:24 Incident To Details : Incident to physician is present and immediately available to furnish assistance and provide supervision throughout the treatment. Entered By Carey Ruffin RN II on 17:42 Patient Assessment : Positive results Assessment : [...] Urinary Changes , Bleeding . Entered By Carey Ruffin RN II on 17:42 IV Access/Lab Draw : IV Access-Peripheral - New Start, Primary Bag Fluid-0.9% Sodium Chloride, Primary Bag Volume-250 mLNeedle Type-Iv Cath, Needle Size-24 Gauge, Needle Length-3/4 inch, Access Site-Right Arm, Flush-10mlNS, Site Assess List-Blood Return,No Redness,No Swelling,No Tenderness,No Bruising, Lab Drawn-No, Access Attempts-1 time(s), Entered By Carey Ruffin RN, II on 17:43 IV De-Access : IV Access Method-Peripheral - New Start, IV Access Type-Iv Cath, Line Flushed- 10ml NS, Catheter-Dc'd, Site Care-Bandage Applied,IV Infusion Completed,Blood Return Noted During Administration,Therapy Completed Without Adverse Event,Occlusive Dressing Applied, Site Assess-Line Intact,No Redness,No Swe lling,No Tenderness,No Bruising, Entered By Carey Ruffin RN, II on 17:44 Discharge Note : Comments-Therapy completed without adverse event, Catheter removed intact, Discharged from clinic, Stable, No new complaints, No Weakness, Patient calendar given, Plan for next patient visit confirmed, Patient instructed to call office with any questions or problems, Accompanied By-Self, Discharge-Ambulatory, Discharge Time-07/13/2024 12:53 Entered By Carey Ruffin RN, II on 17:44 Medication Administration : Incident to: Ruth Hicks MD Pembrolizumab + Lenvatinib Q21D Immunotherapy Pembrolizumab [...] mg Amount in mL: 8 Pharmacy dispense: [facility]: [id number] Dispense/Waste: 200/0 mg Given Dose/Discard: 200/0 mg Start Time: 12:21, Entered By: Carey Ruffin RN, II, Stop Time: 12:51, Entered By: Carey Ruffin RN, II Admix Fluid: 0.9 % sodium chloride, Admix Fluid Volume: 100mL, Total Volume: 108mL Double Checked By: Carey Ruffin RN, II on 07/13/2024 12:19 and Tasia Frausto, Nursing Serviceson 07/13/2024 12:20 Free Text Note : I attest that [...] infusion pump settings are correct. Entered By Carey Ruffin RN II on 17:42
[2024-12-31 12:43] LABS: Lactate* 1.8 mmol/L (0.5-1.9)
[2024-12-31 12:46] LABS: Hematocrit 35.6 % (37.0-53.0); Hemoglobin* 12.0 gm/dL (13.5-17.5); Immature Granulocytes Abs Auto 0.00 K/uL (0.00-0.30); Immature Granulocytes Pct Auto 0.0 %; Lymphocytes Absolute Auto 1.41 K/uL (0.90-2.90); Mean Corpuscular HGB Conc 34 gm/dL (32-36); Mean Corpuscular Hemoglobin 35 pg (26-34); Mean Corpuscular Volume 104 fL (80-100); RDW Coefficient of Variation % 13.9 % (11.5-15.5); Red Blood Count 3.42 m/uL (4.30-5.90); White Blood Count* 6.76 K/uL (4.50-11.00)
[2024-12-31 12:48] LABS: Slide Review Reflex No
[2024-12-31 13:01] LABS: Albumin* 2.7 g/dL (3.3-5.0); Chloride* 92 mmol/L (96-114)
[2024-12-31 13:02] LABS: Potassium* 4.6 mmol/L (3.6-5.1)
[2024-12-31 13:04] LABS: Blood Urea Nitrogen* 28 mg/dL (7-30); Creatinine* 1.7 mg/dL (0.5-1.5); Est. Creatinine Clearance* 33.35; Estimated Glomerular Filt Rate 40 ml/min
[2024-12-31 13:05] LABS: Alanine Aminotransferase* 31 U/L (4-50); Alkaline Phosphatase* 109 U/L (40-150); Anion Gap 2 mEq/L (7-15); Aspartate Amino Transferase* 38 U/L (12-35); Bilirubin Direct* 0.3 mg/dL (0.0-0.5); Bilirubin Total* 0.5 mg/dL (0.1-1.5); Calcium* 7.8 mg/dL (8.4-10.6); Carbon Dioxide* 28 mmol/L (20-32); Glucose* 123 mg/dL (60-115); Total Protein* 5.2 g/dL (6.0-8.3)
[2024-12-31 13:18] LABS: NT Pro B Type NatriureticPept* 718 pg/mL (See Note); Sodium* 122 mmol/L (135-149)
[2024-12-31 13:21] LABS: Appearance Urine Clear (Clear)
[2024-12-31 13:21] LABS: Procalcitonin* 0.13 ng/mL (<0.50)
[2024-12-31 13:23] LABS: PCR FLU A Negative PCR FLU A (Negative); PCR FLU B Negative PCR FLU B (Negative); SARS PCR* Negative SARS-CoV-2 (Negative)
--- NOTE | 2024-12-31 15:19 | PM.GSHP ---
History of Present Illness History of Present Illness Date Seen: 12/31/24 Chief complaint: dizzy, blood in stool Narrative: Rita Wesley is a 79 year old male who presented to the emergency department with dark tarry stools, concerning for blood. He has had abdominal pain for the last 4 days. He describes it as a cramping pain. It comes and goes. He has never had anything like this before. He actually feels like the pain is better today than when it started on . His last bowel movement was this morning. He denies passing gas. No nausea or vomiting. He has had a decrease in appetite. Patient's surgical history is positive for right nephrectomy secondary to renal cell carcinoma. He has also had a bilateral inguinal hernia repair. His medical history is significant for atrial fibrillation, on metoprolol and diltiazem. He is not on any anticoagulation. Type 2 diabetes, currently diet controlled. Hypothyroidism on Synthroid. [facility] Medical History Atrial fibrillation ?I48.91 - Unspecified atrial fibrillation (ICD-10) Malignant neoplasm of right kidney ?C64.1 - Malignant neoplasm of right kidney, except renal pelvis (ICD-10) Back pain ?M54.9 - Dorsalgia, unspecified (ICD-10) PSA elevation ?R97.20 - Elevated prostate specific antigen [PSA] (ICD-10) Hemorrhoids ?K64.9 - Unspecified hemorrhoids (ICD-10) Renal mass, right ?N28.89 - Other specified disorders of kidney and ureter (ICD-10) Hyperglycemia ?R73.9 - Hyperglycemia, unspecified (ICD-10) Epidermoid cyst of neck ?L72.0 - Epidermal cyst (ICD-10) Degeneration of intervertebral disc of lumbar region ?M51.36 - Other intervertebral disc degeneration, lumbar region (ICD-10) Abdominal pain ?R10.9 - Unspecified abdominal pain (ICD-10) Surgical History History of nephrectomy, right ?Z90.5 - Acquired absence of kidney (ICD-10) History of rotator cuff surgery ?Z98.890 - Other specified postprocedural states (ICD-10) History of colonoscopy ?Z98.890 - Other specified postprocedural states (ICD-10) History of bilateral inguinal hernia repair ?Z98.890 - Other specified postprocedural states (ICD-10) ?Z87.19 - Personal history of other diseases of the digestive system (ICD-10) Family History Family/Other Type 1 diabetes mellitus Type 2 diabetes mellitus Mother Diverticulitis of colon Rheumatoid arthritis Father Prostate cancer Other Encounter for annual physical exam Encounter for pre-operative examination Non-alcoholic fatty liver disease Social History Narrative: Non-smoker rare alcohol. 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4 mg capsule 0.4 mg PO DAILY #90 caps 03/20/24 12/31/24 Rx diltiazem HCl 240 mg 240 mg PO DAILY #90 caps 05/23/24 12/31/24 Rx capsule,extended release 24 hr lisinopril 20 mg tablet 20 mg PO DAILY 12/06/24 12/31/24 History levothyroxine 112 mcg tablet 112 mcg PO DAILY 12/08/24 12/31/24 History ondansetron HCl 8 mg tablet 8 mg PO TID PRN 12/08/24 12/31/24 History cabozantinib 20 mg tablet 40 mg PO DAILY 12/31/24 12/31/24 History (Cabometyx) furosemide 40 mg tablet 80 mg PO DAILY 12/31/24 12/31/24 History metoprolol tartrate 25 mg tablet 12.5 mg PO BID 12/31/24 12/31/24 History omeprazole 20 mg capsule,delayed 20 mg PO DAILY 12/31/24 12/31/24 History release Allergies Allergy/AdvReac Type Severity Reaction Status Date / Time metformin AdvReac Intermediate GI Upset Verified 12/31/24 11:39 mirtazapine AdvReac Intermediate other Verified 12/31/24 11:39 Sulfa Antibiotics Allergy Mild Hives Uncoded 12/08/24 14:35 Exam Narrative: Exam Narrative: General: Alert and oriented, nontoxic Respiratory: Equal breath rise bilaterally, maintained on room air CV: Well perfused Abdomen: Soft, mild distention, tender to palpation right lower quadrant with some mild guarding, no rebound. Some tenderness in the left lower quadrant. No guarding or rebound. Previous laparoscopic surgical incisions well healed. Const: Vital Signs, click to edit/add: Vital Signs - 24 hr 12/31/24 11:34 12/31/24 11:47 12/31/24 11:48 Temperature 97.2 F L Pulse Rate 58 L 59 L Pulse Rate [Right Pulse Oximeter] 66 Pulse Rate [orthos tatic lying] Pulse Rate [orthos tatic sitting] Pulse Rate [orthos tatic standing] Respiratory Rate 18 Blood Pressure 141/78 H Blood Pressure [Ri ght Upper Arm] 94/58 L Blood Pressure [or thostatic lying] Blood Pressure [or thostatic sitting] Blood Pressure [or thostatic standing ] Pulse Oximetry 98 98 97 Oxygen Delivery Me thod Room Air 12/31/24 11:57 12/31/24 12:00 12/31/24 12:02 Temperature Pulse Rate 60 58 L Pulse Rate [Right Pulse Oximeter] Pulse Rate [orthos tatic lying] Pulse Rate [orthos tatic sitting] Pulse Rate [orthos tatic standing] Respiratory Rate Blood Pressure 112/70 Blood Pressure [Ri ght Upper Arm] Blood Pressure [or thostatic lying] Blood Pressure [or thostatic sitting] Blood Pressure [or thostatic standing ] Pulse Oximetry 98 97 96 Oxygen Delivery Me thod 12/31/24 12:03 12/31/24 12:24 12/31/24 12:25 Temperature Pulse Rate 58 L 57 L 63 Pulse Rate [Right Pulse Oximeter] Pulse Rate [orthos tatic lying] Pulse Rate [orthos tatic sitting] Pulse Rate [orthos tatic standing] Respiratory Rate Blood Pressure 99/65 91/60 Blood Pressure [Ri ght Upper Arm] Blood Pressure [or thostatic lying] Blood Pressure [or thostatic sitting] Blood Pressure [or thostatic standing ] Pulse Oximetry 95 95 93 Oxygen Delivery Me thod 12/31/24 12:27 12/31/24 12:27 12/31/24 12:28 Temperature Pulse Rate 62 56 L Pulse Rate [Right Pulse Oximeter] Pulse Rate [orthos tatic lying] 58 L Pulse Rate [orthos tatic sitting] 64 Pulse Rate [orthos tatic standing] 74 Respiratory Rate Blood Pressure 71/49 L Blood Pressure [Ri ght Upper Arm] Blood Pressure [or thostatic lying] 99/65 Blood Pressure [or thostatic sitting] 91/60 Blood Pressure [or thostatic standing ] 71/49 L Pulse Oximetry 96 96 Oxygen Delivery Me thod 12/31/24 12:30 12/31/24 12:32 12/31/24 12:45 Temperature Pulse Rate 56 L 56 L 57 L Pulse Rate [Right Pulse Oximeter] Pulse Rate [orthos tatic lying] Pulse Rate [orthos tatic sitting] Pulse Rate [orthos tatic standing] Respiratory Rate Blood Pressure 123/67 Blood Pressure [Ri ght Upper Arm] Blood Pressure [or thostatic lying] Blood Pressure [or thostatic sitting] Blood Pressure [or thostatic standing ] Pulse Oximetry 96 96 96 Oxygen Delivery Me thod 12/31/24 12:47 12/31/24 14:10 Temperature 97.0 F L Pulse Rate 56 L Pulse Rate [Right Pulse Oximeter] 53 L Pulse Rate [orthos tatic lying] Pulse Rate [orthos tatic sitting] Pulse Rate [orthos tatic standing] Respiratory Rate 18 Blood Pressure 108/68 Blood Pressure [Ri ght Upper Arm] 119/60 Blood Pressure [or thostatic lying] Blood Pressure [or thostatic sitting] Blood Pressure [or thostatic standing ] Pulse Oximetry 94 96 Oxygen Delivery Me thod Room Air Results Results Labs: No leukocytosis. Hemoglobin 12.0. He has hyponatremia at 122. His creatinine is elevated at 1.7. Total protein and albumin is low. Abdomen CT scan report/results: report reviewed and image reviewed Progress Note:A&P Assessment and plan (1) Cecal volvulus: Status: Acute Assessment and Plan: Patient presents for 4 days abdominal pain and bloody stools. Workup was obtained with CT scan demonstrating cecal volvulus. No evidence of perforation or obvious necrosis on imaging. Currently he is hemodynamically stable and nontoxic in appearance. I am concerned about possible ischemia given the time frame and reported bloody stools. I discussed at length with the patient the diagnosis of cecal volvulus, as well as my recommendations to proceed emergently to the operating room. Will plan for an exploratory laparotomy and right hemicolectomy. Risks and benefits of the procedure were discussed at length with the patient. Risks included, but were not limited to: Bleeding, infection, risk of damage to surrounding structures and possible need for additional procedures. All questions and concerns were addressed with patient agreeing to proceed. Plan -OR for emergent exploratory laparotomy and right hemicolectomy
[2024-12-31] MEDS: PIPERACILLIN/TAZOBACTAM 3.375 GM INJ IVPB (16:17)
--- NOTE | 2024-12-31 16:40 | W.PM.NB ---
Nerve Block Nerve Block Time Seen by Provider: 16:05 Date Seen: 12/31/24 Type of block requested by surgeon for post-operative analgesia: TAP Side: bilateral Time out performed: Yes Verification of patient name: Yes Verification of date of : Yes Site marking: site marked Name of person performing procedure: Tl Cervantes Continuous monitoring Was continuous monitoring of O2 sat, B/P, satellite project site monitor, recorded every 15 minutes?: Yes Procedure Checklist: sterile prep, needles and gloves Ultrasound guided. Images saved: Yes Medications given in 5ml increments after negative aspiration: Marcaine %: 0.25 mL: 30 Needle gauge: 20 and Exparel mL: 10 Needle gauge: 20 Patient tolerated procedure well: Yes Additional comments: Injected in 5 mL increments after negative aspiration Block Charges Block Charge (with Pro Fee): TAP Bilateral Use of Ultrasound Machine for Block: Yes- US Guidance/pain block
--- NOTE | 2024-12-31 18:15 | P.GSOP_ITS ---
Operative Note Date of procedure: 12/31/24 Pre-op diagnosis: Cecal volvulus Post-op diagnosis: Same Type of Procedure: 1. Exploratory laparotomy 2. Ileocecectomy Indications: Patient is an 79-year-old male who presented to the emergency department with clinical workup and imaging concerning for cecal volvulus. Recommendations were to proceed emergently to the operating room. Risks and benefits of operative intervention were discussed at length with the patient. Risks included but was not limited to: Bleeding, infection, risk of damage to surrounding structures, possible need for additional procedures and postoperative complications such as pneumonia, pulmonary emboli or [place]. All questions and concerns were addressed with the patient agreeing to proceed. Procedure Description: After discussing the risks and benefits of the procedure, the patient signed informed consent.? The operative site was marked and the patient was brought to the operating room and placed on the operating table in supine position.? Care was taken to pad the patient's pressure points.?? The patient was then intubated by anesthesia.??DC blocks were performed bilaterally by anesthesia. A Rayo was placed under sterile conditions. The operative site was then prepped and draped in the usual sterile fashion.? A time-out was then performed. A midline incision around the umbilicus was made with a 10 blade scalpel. Dissection was carried through subcutaneous tissue with cautery. The fascia was incised with cautery. The peritoneum was incised with Metzenbaum scissors to enter the abdomen. The incision was then extended superior and inferior. A medium Shree wound retractor was placed in the abdomen. The cecum was anterior, distended and to the left of midline. It was viable in appearance. The mesentery was then de torsed in a clockwise fashion to allow for anatomic orientation. There was some edema of the mesentery and a small amount of serous fluid within the abdomen. The right colon was mobilized by taking down the lateral attachments. The white line of Toldt was taken down with cautery towards the hepatic flexure. A point of transection was identified on the ascending colon. Cautery was used to make a mesenteric window. Using a hand- held 100 mm DARVIN stapler the colon was transected. A pinpoint area of bleeding was oversewed with 3-0 Vicryl. A point of transection was then identified on the terminal ileum. Cautery was again used to make a mesenteric window. A 100 mm DARVIN stapler was used to transect the terminal ileum. A pinpoint area of bleeding was oversewn with 3 0 Vicryl. Each staple line was again inspected. The lateral corner of the staple line on the the colon was slightly ischemic in appearance, so it was oversewn via Lembert stitches with 3-0 silk suture. The abdomen was then toweled off. An enterotomy was made with cautery on the anti mesenteric side of the ascending colon and terminal ileum. A 100 mm DARVIN stapler load was used to create the anastomosis. As the stapler was removed the staple line was inspected with hemostasis excellent. The common enterotomy was closed with Lembert 3-0 silk sutures. Two crotch stitches of interrupted 3-0 silk were placed to relieve tension. The anastomosis was palpated and widely patent. The mesenteric defect was closed with running 3-0 Vicryl suture. The anastomosis was then carefully placed in the abdomen. The abdomen was irrigated with warm normal saline. Hemostasis was excellent at the end of the case. All dirty equipment was passed off. I changed my gown and gloves. The midline incision was closed with 2 looped 0 PDS sutures. The wound was gently irrigated. The incision was then closed with interrupted 3 0 Vicryl and running 4-0 Monocryl subcuticular stitch. Steri-Strips and sterile dressings were applied. All counts were correct at the end of the case. The patient tolerated the procedure well. Findings: Cecal volvulus. Anesthesia: GETA Surgeon: Charmaine Peñaloza MD Estimated blood loss (mL): 50 Additional Specimen Information: Ileocecectomy Condition: stable Disposition: PACU
--- NOTE | 2024-12-31 18:24 | P.ANES_ITS ---
Anesthesia Charges Start Date/Time Anesthesia Start Date: 12/31/24 Anesthesia Start Time: 15:45 Stop Date/Time Anesthesia Stop Date: 12/31/24 Anesthesia Stop Time: 18:23 Summary Emergency: TAB CUTTER Extremes of Age - Over 70 or under 1: TAB CUTTER Coding CPT Codes CPT Codes: ANESTH SURG LOWER ABDOMEN - 71306 ([id number]) P3 - PATIENT W/SEVERE SYS DISEASE, QZ - TAB CUTTER SVC W/O CLERK FUNERAL DETAIL BY Additional Codes: Summary - Emergency: TAB CUTTER ([id number]) Summary - Extremes of Age - Over 70 or under 1: TAB CUTTER ([id number])
--- NOTE | 2024-12-31 18:24 | W.ANESCHARGE ---
Anesthesia Charges Start Date/Time Anesthesia Start Date: 12/31/24 Anesthesia Start Time: 15:45 Stop Date/Time Anesthesia Stop Date: 12/31/24 Anesthesia Stop Time: 18:23 Summary Emergency: SUPERVISOR BENZENE REFINING Extremes of Age - Over 70 or under 1: SUPERVISOR BENZENE REFINING Coding CPT Codes CPT Codes: ANESTH SURG LOWER ABDOMEN - 60987 ([id number]) P3 - PATIENT W/SEVERE SYS DISEASE, QZ - SUPERVISOR BENZENE REFINING SVC W/O BRUSH HAND BY Additional Codes: Summary - Emergency: SUPERVISOR BENZENE REFINING ([id number]) Summary - Extremes of Age - Over 70 or under 1: SUPERVISOR BENZENE REFINING ([id number])
--- NOTE | 2024-12-31 20:52 | PM.IMCN1 ---
Date of Consult Patient: Other Consult date: 12/31/24 Requesting Physician: General Surgery Primary Care Provider: Beto Anne MD Consult Narrative Reason for consult: Assist with postoperative cares of chronic cardiorenal conditions Narrative: Rita Wesley is a 79 year old man presented with symptomatic cecal volvulus. Underwent emergent exploratory laparotomy with ileocecectomy. I examine him 1st in the postanesthesia care unit and secondly in the CCU. He is sleepy. Arousable. Denies discomforts. Review of Systems Status of ROS: Reports: 6 or more systems reviewed and unremarkable except as noted in History and below [facility] Medical History Malignant neoplasm of right kidney ?C64.1 - Malignant neoplasm of right kidney, except renal pelvis (ICD-10) Nephrotic range proteinuria ?R80.9 - Proteinuria, unspecified (ICD-10) Anemia ?D64.9 - Anemia, unspecified (ICD-10) GERD (gastroesophageal reflux disease) ?K21.9 - Gastro-esophageal reflux disease without esophagitis (ICD-10) Hypertension ?I10 - Essential (primary) hypertension (ICD-10) Type 2 diabetes mellitus ?E11.9 - Type 2 diabetes mellitus without complications (ICD-10) Diverticulitis large intestine ?K57.32 - Diverticulitis of large intestine without perforation or abscess without bleeding (ICD-10) Stage 3 chronic kidney disease ?N18.30 - Chronic kidney disease, stage 3 unspecified (ICD-10) Hypothyroidism ?E03.9 - Hypothyroidism, unspecified (ICD-10) BPH (benign prostatic hyperplasia) ?N40.0 - Benign prostatic hyperplasia without lower urinary tract symptoms (ICD-10) Atrial fibrillation ?I48.91 - Unspecified atrial fibrillation (ICD-10) Back pain ?M54.9 - Dorsalgia, unspecified (ICD-10) PSA elevation ?R97.20 - Elevated prostate specific antigen [PSA] (ICD-10) Hemorrhoids ?K64.9 - Unspecified hemorrhoids (ICD-10) Renal mass, right ?N28.89 - Other specified disorders of kidney and ureter (ICD-10) Hyperglycemia ?R73.9 - Hyperglycemia, unspecified (ICD-10) Epidermoid cyst of neck ?L72.0 - Epidermal cyst (ICD-10) Degeneration of intervertebral disc of lumbar region ?M51.36 - Other intervertebral disc degeneration, lumbar region (ICD-10) Abdominal pain ?R10.9 - Unspecified abdominal pain (ICD-10) Surgical History History of nephrectomy, right ?Z90.5 - Acquired absence of kidney (ICD-10) History of rotator cuff surgery ?Z98.890 - Other specified postprocedural states (ICD-10) History of colonoscopy ?Z98.890 - Other specified postprocedural states (ICD-10) History of bilateral inguinal hernia repair ?Z98.890 - Other specified postprocedural states (ICD-10) ?Z87.19 - Personal history of other diseases of the digestive system (ICD-10) Family History Family/Other Type 1 diabetes mellitus Type 2 diabetes mellitus Mother Diverticulitis of colon Rheumatoid arthritis Family history of multiple miscarriages or stillbirths Father Prostate cancer Daughter Alcohol dependence Son Alcohol dependence Other Encounter for annual physical exam Encounter for pre-operative examination Non-alcoholic fatty liver disease Social History Narrative: Non-smoker rare alcohol. 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 What is your current living situation?: I presently have a place to live Problems where you live: no known problems In the past 12 months, utilities in danger of being shut off: no In past 12 months, lack of transportation kept you from medical appts, meetings, work, or getting things needed for daily living: no In the past 12 mos, have been you worried that your food would run out before you had money to buy more?: never true In the past 12 mos, the food you bought just didn't last and you didn't have money to buy more?: never true Highest level of school completed/degree received: Associate degree: occupational, technical, vocational program Smoking Status: Never smoker Second hand tobacco smoke exposure: No How often do you have a drink containing alcohol: never How often do you have six or more drinks on one occasion: Never AUDIT-C Alcohol total score: 0 Non-prescribed substance use: denies use Caffeine: No How often does anyone, including family, friends and others, physically hurt you: never How often does anyone, including family, friends and others, insult or talk down to you: never How often does anyone, including family, friends and others, threaten you with harm: never How often does anyone, including family, friends and others, scream or curse at you: never service: Yes Meds Home Medications and Allergies Home Medications ?Medication ?Instructions ?Recorded ?Confirmed ?Type acetaminophen 325 mg tablet 650 mg PO BID PRN 03/10/22 12/31/24 History (Tylenol) hydrocortisone 2.5 % topical cream 1 applic MS BID-QID PRN 12/08/22 12/31/24 Rx with perineal applicator hemorrhoids #3 ea (Proctosol HC) tamsulosin 0.4 mg capsule 0.4 mg PO DAILY #90 caps 03/20/24 12/31/24 Rx diltiazem HCl 240 mg 240 mg PO DAILY #90 caps 05/23/24 12/31/24 Rx capsule,extended release 24 hr lisinopril 20 mg tablet 20 mg PO DAILY 12/06/24 12/31/24 History levothyroxine 112 mcg tablet 112 mcg PO DAILY 12/08/24 12/31/24 History ondansetron HCl 8 mg tablet 8 mg PO TID PRN 12/08/24 12/31/24 History cabozantinib 20 mg tablet 40 mg PO DAILY 12/31/24 12/31/24 History (Cabometyx) furosemide 40 mg tablet 80 mg PO DAILY 12/31/24 12/31/24 History metoprolol tartrate 25 mg tablet 12.5 mg PO BID 12/31/24 12/31/24 History omeprazole 20 mg capsule,delayed 20 mg PO DAILY 12/31/24 12/31/24 History release Allergies Allergy/AdvReac Type Severity Reaction Status Date / Time metformin AdvReac Intermediate GI Upset Verified 12/31/24 11:39 mirtazapine AdvReac Intermediate other Verified 12/31/24 11:39 Sulfa Antibiotics Allergy Mild Hives Uncoded 12/08/24 14:35 Exam Narrative: Exam Narrative: Patient laying comfortably on bed. Head of bed elevated about 15?. I examine him postoperatively. Sleepy, arousable. Lungs are clear to auscultation. Heart tones with regular rhythm without gallop or rub. PMI not laterally displaced. Abdominal binder in place. Extremities without edema. No focal motor neurologic deficits. Const: Vital Signs, click to edit/add: Vital Signs - 24 hr 12/31/24 11:34 12/31/24 11:47 12/31/24 11:48 Temperature 97.2 F L Pulse Rate 58 L 59 L Pulse Rate [Right Pulse Oximeter] 66 Pulse Rate [orthos tatic lying] Pulse Rate [orthos tatic sitting] Pulse Rate [orthos tatic standing] Respiratory Rate 18 Blood Pressure 141/78 H Blood Pressure [Le ft Arm] Blood Pressure [Ri ght Upper Arm] 94/58 L Blood Pressure [or thostatic lying] Blood Pressure [or thostatic sitting] Blood Pressure [or thostatic standing ] Pulse Oximetry 98 98 97 Oxygen Delivery Me thod Room Air Oxygen Flow Rate 12/31/24 11:57 12/31/24 12:00 12/31/24 12:02 Temperature Pulse Rate 60 58 L Pulse Rate [Right Pulse Oximeter] Pulse Rate [orthos tatic lying] Pulse Rate [orthos tatic sitting] Pulse Rate [orthos tatic standing] Respiratory Rate Blood Pressure 112/70 Blood Pressure [Le ft Arm] Blood Pressure [Ri ght Upper Arm] Blood Pressure [or thostatic lying] Blood Pressure [or thostatic sitting] Blood Pressure [or thostatic standing ] Pulse Oximetry 98 97 96 Oxygen Delivery Me thod Oxygen Flow Rate 12/31/24 12:03 12/31/24 12:24 12/31/24 12:25 Temperature Pulse Rate 58 L 57 L 63 Pulse Rate [Right Pulse Oximeter] Pulse Rate [orthos tatic lying] Pulse Rate [orthos tatic sitting] Pulse Rate [orthos tatic standing] Respiratory Rate Blood Pressure 99/65 91/60 Blood Pressure [Le ft Arm] Blood Pressure [Ri ght Upper Arm] Blood Pressure [or thostatic lying] Blood Pressure [or thostatic sitting] Blood Pressure [or thostatic standing ] Pulse Oximetry 95 95 93 Oxygen Delivery Me thod Oxygen Flow Rate 12/31/24 12:27 12/31/24 12:27 12/31/24 12:28 Temperature Pulse Rate 62 56 L Pulse Rate [Right Pulse Oximeter] Pulse Rate [orthos tatic lying] 58 L Pulse Rate [orthos tatic sitting] 64 Pulse Rate [orthos tatic standing] 74 Respiratory Rate Blood Pressure 71/49 L Blood Pressure [Le ft Arm] Blood Pressure [Ri ght Upper Arm] Blood Pressure [or thostatic lying] 99/65 Blood Pressure [or thostatic sitting] 91/60 Blood Pressure [or thostatic standing ] 71/49 L Pulse Oximetry 96 96 Oxygen Delivery Me thod Oxygen Flow Rate 12/31/24 12:30 12/31/24 12:32 12/31/24 12:45 Temperature Pulse Rate 56 L 56 L 57 L Pulse Rate [Right Pulse Oximeter] Pulse Rate [orthos tatic lying] Pulse Rate [orthos tatic sitting] Pulse Rate [orthos tatic standing] Respiratory Rate Blood Pressure 123/67 Blood Pressure [Le ft Arm] Blood Pressure [Ri ght Upper Arm] Blood Pressure [or thostatic lying] Blood Pressure [or thostatic sitting] Blood Pressure [or thostatic standing ] Pulse Oximetry 96 96 96 Oxygen Delivery Me thod Oxygen Flow Rate 12/31/24 12:47 12/31/24 14:10 12/31/24 18:20 Temperature 97.0 F L 98.1 F Pulse Rate 56 L 59 L Pulse Rate [Right Pulse Oximeter] 53 L Pulse Rate [orthos tatic lying] Pulse Rate [orthos tatic sitting] Pulse Rate [orthos tatic standing] Respiratory Rate 18 14 Blood Pressure 108/68 125/61 Blood Pressure [Le ft Arm] Blood Pressure [Ri ght Upper Arm] 119/60 Blood Pressure [or thostatic lying] Blood Pressure [or thostatic sitting] Blood Pressure [or thostatic standing ] Pulse Oximetry 94 96 90 Oxygen Delivery Me thod Room Air Room Air Oxygen Flow Rate 12/31/24 18:25 12/31/24 18:30 12/31/24 18:50 Temperature 97.3 F L Pulse Rate 59 L 56 L 55 L Pulse Rate [Right Pulse Oximeter] Pulse Rate [orthos tatic lying] Pulse Rate [orthos tatic sitting] Pulse Rate [orthos tatic standing] Respiratory Rate 16 16 14 Blood Pressure 118/60 120/65 121/61 Blood Pressure [Le ft Arm] Blood Pressure [Ri ght Upper Arm] Blood Pressure [or thostatic lying] Blood Pressure [or thostatic sitting] Blood Pressure [or thostatic standing ] Pulse Oximetry 90 97 97 Oxygen Delivery Me thod Room Air Nasal Cannula Nasal Cannula Oxygen Flow Rate 1 1 12/31/24 19:05 12/31/24 19:20 12/31/24 19:20 Temperature 97.6 F 96.0 F L 96.0 F L Pulse Rate 60 Pulse Rate [Right Pulse Oximeter] 56 L Pulse Rate [orthos tatic lying] Pulse Rate [orthos tatic sitting] Pulse Rate [orthos tatic standing] Respiratory Rate 16 16 16 Blood Pressure 136/63 Blood Pressure [Le ft Arm] 125/63 Blood Pressure [Ri ght Upper Arm] Blood Pressure [or thostatic lying] Blood Pressure [or thostatic sitting] Blood Pressure [or thostatic standing ] Pulse Oximetry 95 95 95 Oxygen Delivery Me thod Room Air Room Air Room Air Oxygen Flow Rate 1 12/31/24 19:34 12/31/24 19:50 12/31/24 20:04 Temperature 96.0 F L 96.4 F L 96.4 F L Pulse Rate 58 L 60 62 Pulse Rate [Right Pulse Oximeter] Pulse Rate [orthos tatic lying] Pulse Rate [orthos tatic sitting] Pulse Rate [orthos tatic standing] Respiratory Rate 16 16 16 Blood Pressure 138/66 140/65 H 140/65 H Blood Pressure [Le ft Arm] Blood Pressure [Ri ght Upper Arm] Blood Pressure [or thostatic lying] Blood Pressure [or thostatic sitting] Blood Pressure [or thostatic standing ] Pulse Oximetry 95 94 88 Oxygen Delivery Me thod Room Air Room Air Room Air Oxygen Flow Rate 12/31/24 20:35 Temperature 96.4 F L Pulse Rate 64 Pulse Rate [Right Pulse Oximeter] Pulse Rate [orthos tatic lying] Pulse Rate [orthos tatic sitting] Pulse Rate [orthos tatic standing] Respiratory Rate 16 Blood Pressure 125/63 Blood Pressure [Le ft Arm] Blood Pressure [Ri ght Upper Arm] Blood Pressure [or thostatic lying] Blood Pressure [or thostatic sitting] Blood Pressure [or thostatic standing ] Pulse Oximetry 96 Oxygen Delivery Me thod Nasal Cannula Oxygen Flow Rate 2 Labs Labs: Short CBC 12/31/24 Range/Units 12:10 WBC 6.76 (4.50-11.00) K/uL Hgb 12.0 L (13.5-17.5) gm/dL Hct 35.6 L (37.0-53.0) % Plt Count 174 (140-440) K/uL BMP 12/31/24 12:10 Sodium 122 L* Potassium 4.6 Chloride 92 L Carbon Dioxide 28 BUN 28 Creatinine 1.7 H Glucose 123 H Calcium 7.8 L Cardiac Enzymes 12/31/24 Range/Units 12:10 Troponin I < 0.01 (0.01-0.04) ng/mL Liver Function 12/31/24 Range/Units 12:10 Total Bilirubin 0.5 (0.1-1.5) mg/dL Direct Bilirubin 0.3 (0.0-0.5) mg/dL AST 38 H (12-35) U/L ALT 31 (4-50) U/L Alkaline Phosphatase 109 (40-150) U/L Albumin 2.7 L (3.3-5.0) g/dL Urine 12/31/24 Range/Units 13:06 Urine Color Yellow (Yellow) Urine Appearance Clear (Clear) Urine pH 5.0 (5.0-8.5) Ur Specific [place] <= 1.005 (1.000-1.030) Urine Protein 2+ A (Negative) Urine Glucose (UA) Negative (Negative) ECG Attestation: I personally reviewed and interpreted this ECG as follows: Interpretation: Sinus rhythm with first-degree AV block. Imaging CT Chest/Ab/Pelvis: Attestation: I have reviewed the pertinent imaging results. Radiologist's impression: IMPRESSION: 1. 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 No pneumatosis, pneumoperitoneum or portal venous gas. 2. Right lower lobe masslike consolidation which is partially visualized measuring 2.8 x 2.[address] chest for further evaluation. 3. Small volume pelvic ascites. 4. Colonic diverticulosis without diverticulitis. 5. Subcapsular right hepatic lobe hypodense lesion measuring 1.1 x 1.1 cm with Hounsfield unit of 58 which is indeterminate. If clinically warranted, consider a nonemergent CT or MRI (liver mass protocol) for further evaluation. Assessment and Plan Assessment and plan (1) Cecal volvulus: Problem comment: - status post exploratory laparotomy and ileocecectomy 12/31/2024, Dr. Peñaloza, [facility] - NPO at present Status: Acute (2) Acute hyponatremia: Problem comment: - NPO postoperatively - normal saline IV fluid administered perioperatively and postoperatively - monitor serum sodium Status: Acute (3) Anemia: Problem comment: - acute on chronic - chronic anemia likely in part due to chronic kidney disease - monitor postoperatively Status: Acute (4) Hypocalcemia: Problem comment: - corrected for hypoalbuminemia low calcium not as concerning - monitor postoperatively Status: Acute (5) Hypoalbuminemia: Problem comment: - due to nephrotic syndrome - monitor postoperatively Status: Acute (6) Nephrotic range proteinuria: Problem comment: - 11/20/24: 24 hour urine protein:Cr 3,634 mg/g, improved since 05/2024 - continue to optimize lisinopril at 20 mg daily if BP allows, vs decrease dose to 10 mg daily or stop if warranted - poor candidate for SGLT2-I due to poor oral intake and intermittent diarrhea, 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 This is on hold. Will schedule furosemide 20 mg IV every day for now and monitor closely - consider restarting lisinopril when he is able to take medications orally again Status: Acute (7) Stage 3 chronic kidney disease: Problem comment: - Abstracted [facility] nephrology records, 09/13 - s/p right nephrectomy, has only left kidney remaining - baseline CR 1.5-1.7 - monitor postoperatively Status: Chronic (8) Malignant neoplasm of right kidney: Problem comment: - Stage IV Clear cell renal carcinoma, abstracted [facility] notes 09/13 - Most recent whole body PET CT on 12/18/2024: broadly stable subpleural nodule between the right 5th and 6th intercostal space and lateral right hepatic lobe, with development of new FDG avid thickening in right inferomedial pleura highly suspicious for progression of disease. - immunotherapy likely causitive of proteinuria Status: Acute (9) Hypotension: Problem comment: - improved s/p IVF rehydration re-operatively 12/31/2024 Status: Acute (10) Atrial fibrillation: Problem comment: - rate controlled with diltiazem 240 mg daily and metoprolol tartrate 12.5 mg twice daily - given NPO status, oral diltiazem and oral metoprolol are on hold, therefore will schedule metoprolol tartrate 2.5 mg IV q.6 hours and make diltiazem available 5 mg IV q.4 hours as needed for heart rate greater than 90 with mean arterial pressures greater than 65 mmHg Status: Acute Total Time Spent Total Time Spent: 70 minutes
[2024-12-31] MEDS: SODIUM CHLORIDE 0.9 % (FLUSH) 10 ML SYRINGE 5 ML IVF (21:11)
[2024-12-31] MEDS: METOPROLOL TARTRATE 1 MG/ML inj 2.5 MG IVP (21:11)
--- NOTE | 2024-12-31 21:48 | PC.NURSE ---
End of Shift Note: Patient arrived from PACU around 1904. He was pretty sleepy when he first arrived. He did awaken for a short while his family was at bedside and he did complain of pain 01/31. Did receive pain medication see JUL. Has continue to be able to rest. Has a chu cath in place. No complaint of nausea. Does answer questions appropriately. Have asked him if he needs anything to please use his call light. I did put his bed alarm on just in case he gets confused from the environment and pain medication and tries to get up alone. Will continue to monitor until next shift arrives.
[2025-01-01] VITALS (25 sets, daily range): BP systolic 125–160; BP diastolic 71–98; PULSE 65–89; RESP 16–18; TEMP 36.2–36.4; O2SAT 94–96
[2025-01-01] MEDS: SODIUM CHLORIDE 0.9 % (FLUSH) 10 ML SYRINGE 5 ML IVF ×3 (03:10→15:45)
[2025-01-01] MEDS: METOPROLOL TARTRATE 1 MG/ML inj 2.5 MG IVP ×4 (03:10→21:14)
[2025-01-01 06:10] LABS: Hematocrit 34.3 % (37.0-53.0); Hemoglobin* 11.7 gm/dL (13.5-17.5); Immature Granulocytes Pct Auto 1.2 %; Mean Corpuscular HGB Conc 34 gm/dL (32-36); Mean Corpuscular Hemoglobin 36 pg (26-34); Mean Corpuscular Volume 105 fL (80-100); RDW Coefficient of Variation % 14.0 % (11.5-15.5); Red Blood Count 3.27 m/uL (4.30-5.90); White Blood Count* 11.21 K/uL (4.50-11.00)
[2025-01-01 06:17] LABS: Immature Granulocytes Abs Auto 0.10 K/uL (0.00-0.30); Lymphocytes Absolute Auto 0.70 K/uL (0.90-2.90)
[2025-01-01 06:18] LABS: Slide Review Reflex No
[2025-01-01 06:29] LABS: Chloride* 102 mmol/L (96-114); Potassium* 4.8 mmol/L (3.6-5.1); Sodium* 129 mmol/L (135-149)
[2025-01-01 06:32] LABS: Anion Gap 2 mEq/L (7-15); Blood Urea Nitrogen* 23 mg/dL (7-30); Calcium* 7.9 mg/dL (8.4-10.6); Carbon Dioxide* 25 mmol/L (20-32); Creatinine* 1.4 mg/dL (0.5-1.5); Est. Creatinine Clearance* 40.61; Estimated Glomerular Filt Rate 51 ml/min; Glucose* 130 mg/dL (60-115)
--- NOTE | 2025-01-01 06:42 | PC.NURSE ---
Pt is alert and oriented x3. Afebrile. Pt reports 3-6/10 pain in abdomen, pain managed with PRN medication. Pt?s abdominal dressing is CDI. Pt?s chu is patent and draining. Pt has not been up yet and slept intermittently throughout night in-between cares. Pt denies passing gas yet but bowel sounds are active. ?
[2025-01-01 07:10] LABS: NT Pro B Type NatriureticPept* 497 pg/mL (See Note)
[2025-01-01] MEDS: FUROSEMIDE 10 MG/ML inj 20 MG IVP (08:23)
--- NOTE | 2025-01-01 11:37 | P.GSPN_ITS ---
Subjective Subjective Date Seen: 01/01/25 Interval history: Patient is doing well this morning. His abdominal pain is in good control. He has already been up to the chair and walked around his room. Not yet passed gas. Denies any current nausea. Exam Narrative: Exam Narrative: General: Alert and oriented, no acute distress Abdomen: Soft, appropriately tender over incision site, dressings in place clean/dry/intact Const: Vital Signs, click to edit/add: Vital Signs - 24 hr 12/31/24 11:47 12/31/24 11:48 12/31/24 11:57 Temperature Pulse Rate 58 L 59 L Pulse Rate [Right Pulse Oximeter] Pulse Rate [orthos tatic lying] Pulse Rate [orthos tatic sitting] Pulse Rate [orthos tatic standing] Respiratory Rate Blood Pressure 141/78 H Blood Pressure [Le ft Arm] Blood Pressure [Ri ght Upper Arm] Blood Pressure [or thostatic lying] Blood Pressure [or thostatic sitting] Blood Pressure [or thostatic standing ] Pulse Oximetry 98 97 98 Oxygen Delivery Me thod Oxygen Flow Rate 12/31/24 12:00 12/31/24 12:02 12/31/24 12:03 Temperature Pulse Rate 60 58 L 58 L Pulse Rate [Right Pulse Oximeter] Pulse Rate [orthos tatic lying] Pulse Rate [orthos tatic sitting] Pulse Rate [orthos tatic standing] Respiratory Rate Blood Pressure 112/70 Blood Pressure [Le ft Arm] Blood Pressure [Ri ght Upper Arm] Blood Pressure [or thostatic lying] Blood Pressure [or thostatic sitting] Blood Pressure [or thostatic standing ] Pulse Oximetry 97 96 95 Oxygen Delivery Me thod Oxygen Flow Rate 12/31/24 12:24 12/31/24 12:25 12/31/24 12:27 Temperature Pulse Rate 57 L 63 Pulse Rate [Right Pulse Oximeter] Pulse Rate [orthos tatic lying] 58 L Pulse Rate [orthos tatic sitting] 64 Pulse Rate [orthos tatic standing] 74 Respiratory Rate Blood Pressure 99/65 91/60 Blood Pressure [Le ft Arm] Blood Pressure [Ri ght Upper Arm] Blood Pressure [or thostatic lying] 99/65 Blood Pressure [or thostatic sitting] 91/60 Blood Pressure [or thostatic standing ] 71/49 L Pulse Oximetry 95 93 Oxygen Delivery Me thod Oxygen Flow Rate 12/31/24 12:27 12/31/24 12:28 12/31/24 12:30 Temperature Pulse Rate 62 56 L 56 L Pulse Rate [Right Pulse Oximeter] Pulse Rate [orthos tatic lying] Pulse Rate [orthos tatic sitting] Pulse Rate [orthos tatic standing] Respiratory Rate Blood Pressure 71/49 L Blood Pressure [Le ft Arm] Blood Pressure [Ri ght Upper Arm] Blood Pressure [or thostatic lying] Blood Pressure [or thostatic sitting] Blood Pressure [or thostatic standing ] Pulse Oximetry 96 96 96 Oxygen Delivery Me thod Oxygen Flow Rate 12/31/24 12:32 12/31/24 12:45 12/31/24 12:47 Temperature Pulse Rate 56 L 57 L 56 L Pulse Rate [Right Pulse Oximeter] Pulse Rate [orthos tatic lying] Pulse Rate [orthos tatic sitting] Pulse Rate [orthos tatic standing] Respiratory Rate Blood Pressure 123/67 108/68 Blood Pressure [Le ft Arm] Blood Pressure [Ri ght Upper Arm] Blood Pressure [or thostatic lying] Blood Pressure [or thostatic sitting] Blood Pressure [or thostatic standing ] Pulse Oximetry 96 96 94 Oxygen Delivery Me thod Oxygen Flow Rate 12/31/24 14:10 12/31/24 18:20 12/31/24 18:25 Temperature 97.0 F L 98.1 F Pulse Rate 59 L 59 L Pulse Rate [Right Pulse Oximeter] 53 L Pulse Rate [orthos tatic lying] Pulse Rate [orthos tatic sitting] Pulse Rate [orthos tatic standing] Respiratory Rate 18 14 16 Blood Pressure 125/61 118/60 Blood Pressure [Le ft Arm] Blood Pressure [Ri ght Upper Arm] 119/60 Blood Pressure [or thostatic lying] Blood Pressure [or thostatic sitting] Blood Pressure [or thostatic standing ] Pulse Oximetry 96 90 90 Oxygen Delivery Me thod Room Air Room Air Room Air Oxygen Flow Rate 12/31/24 18:30 12/31/24 18:50 12/31/24 19:05 Temperature 97.3 F L 97.6 F Pulse Rate 56 L 55 L Pulse Rate [Right Pulse Oximeter] 56 L Pulse Rate [orthos tatic lying] Pulse Rate [orthos tatic sitting] Pulse Rate [orthos tatic standing] Respiratory Rate 16 14 16 Blood Pressure 120/65 121/61 Blood Pressure [Le ft Arm] 125/63 Blood Pressure [Ri ght Upper Arm] Blood Pressure [or thostatic lying] Blood Pressure [or thostatic sitting] Blood Pressure [or thostatic standing ] Pulse Oximetry 97 97 95 Oxygen Delivery Me thod Nasal Cannula Nasal Cannula Room Air Oxygen Flow Rate 1 1 12/31/24 19:20 12/31/24 19:20 12/31/24 19:34 Temperature 96.0 F L 96.0 F L 96.0 F L Pulse Rate 60 58 L Pulse Rate [Right Pulse Oximeter] Pulse Rate [orthos tatic lying] Pulse Rate [orthos tatic sitting] Pulse Rate [orthos tatic standing] Respiratory Rate 16 16 16 Blood Pressure 136/63 138/66 Blood Pressure [Le ft Arm] Blood Pressure [Ri ght Upper Arm] Blood Pressure [or thostatic lying] Blood Pressure [or thostatic sitting] Blood Pressure [or thostatic standing ] Pulse Oximetry 95 95 95 Oxygen Delivery Me thod Room Air Room Air Room Air Oxygen Flow Rate 1 12/31/24 19:50 12/31/24 20:04 12/31/24 20:35 Temperature 96.4 F L 96.4 F L 96.4 F L Pulse Rate 60 62 64 Pulse Rate [Right Pulse Oximeter] Pulse Rate [orthos tatic lying] Pulse Rate [orthos tatic sitting] Pulse Rate [orthos tatic standing] Respiratory Rate 16 16 16 Blood Pressure 140/65 H 140/65 H 125/63 Blood Pressure [Le ft Arm] Blood Pressure [Ri ght Upper Arm] Blood Pressure [or thostatic lying] Blood Pressure [or thostatic sitting] Blood Pressure [or thostatic standing ] Pulse Oximetry 94 88 96 Oxygen Delivery Me thod Room Air Room Air Nasal Cannula Oxygen Flow Rate 2 12/31/24 21:05 12/31/24 21:25 12/31/24 21:30 Temperature 96.8 F L 96.8 F L Pulse Rate 68 67 68 Pulse Rate [Right Pulse Oximeter] Pulse Rate [orthos tatic lying] Pulse Rate [orthos tatic sitting] Pulse Rate [orthos tatic standing] Respiratory Rate 16 16 Blood Pressure 140/71 H 137/76 Blood Pressure [Le ft Arm] Blood Pressure [Ri ght Upper Arm] Blood Pressure [or thostatic lying] Blood Pressure [or thostatic sitting] Blood Pressure [or thostatic standing ] Pulse Oximetry 97 97 Oxygen Delivery Me thod Nasal Cannula Nasal Cannula Oxygen Flow Rate 1 12/31/24 22:05 12/31/24 23:00 12/31/24 23:04 Temperature 96.8 F L Pulse Rate 66 69 Pulse Rate [Right Pulse Oximeter] Pulse Rate [orthos tatic lying] Pulse Rate [orthos tatic sitting] Pulse Rate [orthos tatic standing] Respiratory Rate 16 Blood Pressure 134/69 Blood Pressure [Le ft Arm] Blood Pressure [Ri ght Upper Arm] Blood Pressure [or thostatic lying] Blood Pressure [or thostatic sitting] Blood Pressure [or thostatic standing ] Pulse Oximetry 97 95 Oxygen Delivery Me thod Nasal Cannula Nasal Cannula Oxygen Flow Rate 1 0.5 12/31/24 23:05 12/31/24 23:10 12/31/24 23:15 Temperature 97.1 F L Pulse Rate 73 74 75 Pulse Rate [Right Pulse Oximeter] Pulse Rate [orthos tatic lying] Pulse Rate [orthos tatic sitting] Pulse Rate [orthos tatic standing] Respiratory Rate 14 Blood Pressure 123/68 Blood Pressure [Le ft Arm] Blood Pressure [Ri ght Upper Arm] Blood Pressure [or thostatic lying] Blood Pressure [or thostatic sitting] Blood Pressure [or thostatic standing ] Pulse Oximetry 95 96 95 Oxygen Delivery Me thod Nasal Cannula Oxygen Flow Rate 0.5 12/31/24 23:30 12/31/24 23:45 01/01/25 00:00 Temperature Pulse Rate 73 76 74 Pulse Rate [Right Pulse Oximeter] Pulse Rate [orthos tatic lying] Pulse Rate [orthos tatic sitting] Pulse Rate [orthos tatic standing] Respiratory Rate Blood Pressure Blood Pressure [Le ft Arm] Blood Pressure [Ri ght Upper Arm] Blood Pressure [or thostatic lying] Blood Pressure [or thostatic sitting] Blood Pressure [or thostatic standing ] Pulse Oximetry 94 92 95 Oxygen Delivery Me thod Oxygen Flow Rate 01/01/25 00:02 01/01/25 00:02 01/01/25 00:02 Temperature 97.1 F L Pulse Rate 74 74 74 Pulse Rate [Right Pulse Oximeter] Pulse Rate [orthos tatic lying] Pulse Rate [orthos tatic sitting] Pulse Rate [orthos tatic standing] Respiratory Rate Blood Pressure 127/71 127/71 127/71 Blood Pressure [Le ft Arm] Blood Pressure [Ri ght Upper Arm] Blood Pressure [or thostatic lying] Blood Pressure [or thostatic sitting] Blood Pressure [or thostatic standing ] Pulse Oximetry 94 94 94 Oxygen Delivery Me thod Oxygen Flow Rate 01/01/25 00:03 01/01/25 00:15 01/01/25 00:30 Temperature Pulse Rate 73 73 79 Pulse Rate [Right Pulse Oximeter] Pulse Rate [orthos tatic lying] Pulse Rate [orthos tatic sitting] Pulse Rate [orthos tatic standing] Respiratory Rate Blood Pressure Blood Pressure [Le ft Arm] Blood Pressure [Ri ght Upper Arm] Blood Pressure [or thostatic lying] Blood Pressure [or thostatic sitting] Blood Pressure [or thostatic standing ] Pulse Oximetry 95 94 95 Oxygen Delivery Me thod Oxygen Flow Rate 01/01/25 01:00 01/01/25 01:02 01/01/25 01:03 Temperature Pulse Rate 77 76 78 Pulse Rate [Right Pulse Oximeter] Pulse Rate [orthos tatic lying] Pulse Rate [orthos tatic sitting] Pulse Rate [orthos tatic standing] Respiratory Rate Blood Pressure 135/75 Blood Pressure [Le ft Arm] Blood Pressure [Ri ght Upper Arm] Blood Pressure [or thostatic lying] Blood Pressure [or thostatic sitting] Blood Pressure [or thostatic standing ] Pulse Oximetry 94 94 94 Oxygen Delivery Me thod Oxygen Flow Rate 01/01/25 01:15 01/01/25 01:30 01/01/25 02:00 Temperature Pulse Rate 77 78 81 Pulse Rate [Right Pulse Oximeter] Pulse Rate [orthos tatic lying] Pulse Rate [orthos tatic sitting] Pulse Rate [orthos tatic standing] Respiratory Rate Blood Pressure Blood Pressure [Le ft Arm] Blood Pressure [Ri ght Upper Arm] Blood Pressure [or thostatic lying] Blood Pressure [or thostatic sitting] Blood Pressure [or thostatic standing ] Pulse Oximetry 95 94 94 Oxygen Delivery Me thod Oxygen Flow Rate 01/01/25 02:02 01/01/25 03:00 01/01/25 03:02 Temperature 97.4 F L Pulse Rate 80 82 89 Pulse Rate [Right Pulse Oximeter] Pulse Rate [orthos tatic lying] Pulse Rate [orthos tatic sitting] Pulse Rate [orthos tatic standing] Respiratory Rate 16 Blood Pressure 125/73 125/75 Blood Pressure [Le ft Arm] Blood Pressure [Ri ght Upper Arm] Blood Pressure [or thostatic lying] Blood Pressure [or thostatic sitting] Blood Pressure [or thostatic standing ] Pulse Oximetry 94 94 94 Oxygen Delivery Me thod Oxygen Flow Rate 01/01/25 03:03 01/01/25 04:00 01/01/25 04:02 Temperature 97.4 F L Pulse Rate 86 79 80 Pulse Rate [Right Pulse Oximeter] Pulse Rate [orthos tatic lying] Pulse Rate [orthos tatic sitting] Pulse Rate [orthos tatic standing] Respiratory Rate 16 Blood Pressure 139/79 Blood Pressure [Le ft Arm] Blood Pressure [Ri ght Upper Arm] Blood Pressure [or thostatic lying] Blood Pressure [or thostatic sitting] Blood Pressure [or thostatic standing ] Pulse Oximetry 95 95 95 Oxygen Delivery Me thod Oxygen Flow Rate 01/01/25 05:00 01/01/25 07:00 01/01/25 07:00 Temperature Pulse Rate 83 87 Pulse Rate [Right Pulse Oximeter] 87 Pulse Rate [orthos tatic lying] Pulse Rate [orthos tatic sitting] Pulse Rate [orthos tatic standing] Respiratory Rate 16 Blood Pressure Blood Pressure [Le ft Arm] Blood Pressure [Ri ght Upper Arm] Blood Pressure [or thostatic lying] Blood Pressure [or thostatic sitting] Blood Pressure [or thostatic standing ] Pulse Oximetry 95 Oxygen Delivery Me thod Oxygen Flow Rate 01/01/25 07:52 01/01/25 08:00 Temperature Pulse Rate 82 Pulse Rate [Right Pulse Oximeter] Pulse Rate [orthos tatic lying] Pulse Rate [orthos tatic sitting] Pulse Rate [orthos tatic standing] Respiratory Rate 18 Blood Pressure 139/78 Blood Pressure [Le ft Arm] Blood Pressure [Ri ght Upper Arm] Blood Pressure [or thostatic lying] Blood Pressure [or thostatic sitting] Blood Pressure [or thostatic standing ] Pulse Oximetry 94 95 Oxygen Delivery Me thod Room Air Room Air Oxygen Flow Rate Labs/Imaging Labs Labs: Mild leukocytosis (11) Imaging Imaging: No new imaging Progress Note:A&P Assessment and plan (1) Cecal volvulus: Status: Acute Assessment and Plan: Patient is postop day 1 ileocecectomy with [id number] functional end-to-end anastomosis. Doing well postoperatively. Vital signs stable overnight with no acute events. Patient was encouraged to ambulate the [place] today. His Rayo was removed this morning. Will continue NPO until patient has return of bowel function. Plan -IV fluids, NPO -IV and p.o. pain meds as needed -hospitalist consulted to review home medications -Rayo removed this morning -encourage ambulation of the [place] -SCDs and Lovenox for DVT prophylaxis
[2025-01-01] MEDS: 5 % DEXTROSE/0.9% SOD CHLORIDE 1,000 ML 125 ML IV ×2 (11:50→19:51)
--- NOTE | 2025-01-01 13:40 | PM.IMPN1 ---
Assessment and Plan Assessment and plan (1) Cecal volvulus: Problem comment: - status post exploratory laparotomy and ileocecectomy 12/31/2024, Dr. Peñaloza, [facility] - NPO at present Status: Acute (2) Atrial fibrillation: Problem comment: - rate controlled with diltiazem 240 mg daily and metoprolol tartrate 12.5 mg twice daily - given NPO status, oral diltiazem and oral metoprolol are on hold, therefore will schedule metoprolol tartrate 2.5 mg IV q.6 hours and make diltiazem available 5 mg IV q.4 hours as needed for heart rate greater than 90 with mean arterial pressures greater than 65 mmHg Status: Acute (3) Acute hyponatremia: Problem comment: - NPO postoperatively - normal saline IV fluid administered perioperatively and postoperatively - monitor serum sodium Status: Acute (4) Malignant neoplasm of right kidney: Problem comment: - Stage IV Clear cell renal carcinoma, abstracted [facility] 09/13 - Most recent whole body PET CT on 12/18/2024: broadly stable subpleural nodule between the right 5th and 6th intercostal space and lateral right hepatic lobe, with development of new FDG avid thickening in right inferomedial pleura highly suspicious for progression of disease. 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 This is on hold. Will schedule furosemide 20 mg IV every day for now and monitor closely - consider restarting lisinopril when he is able to take medications orally again Status: Acute Plan Patient is admitted for cecal volvulus now day 1 status post ileocecectomy doing fairly well. Continue in hospital for management of chronic medical problems and IV fluids pending return of bowel function. Total Time Spent Total Time Spent: Total time spent today is 60 minutes in reviewing outside records, coordination of care and discussing with patient and his son and other providers management of medical problems following bowel surgery Subjective Date Seen: 01/01/25 Interval history: 79-year-old male admitted to the hospital with abdominal cramping, weakness, fatigue. This started 4 days prior to admission. He reports he has had occasional episodes of abdominal cramping for a long time. 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 Recent PET scan suggests progression of disease. At the time of admission he was found to have a cecal volvulus on CT scan. He underwent surgery with Dr. Peñaloza for urgent laparotomy and ileocecectomy. 01/01/2025: Postop day 1 patient reports feeling well today. Having some abdominal pain consistent with his postoperative status. He has no fever, dyspnea, chest pain. Exam Narrative: Exam Narrative: He is alert and appears in no distress. He gives his own history. Respirations are clear to auscultation. Cardiovascular: S1, S2, regular rate and rhythm. Abdomen: Bowel sounds diminished. He has an abdominal binder in place. Under this he has a bandage over his laparotomy incision. This is not removed. Palpation shows mild tenderness consistent with his postoperative status. Extremities with 1+ edema at the ankles. He moves all 4 extremities well. Const: Vital Signs, click to edit/add: Vital Signs - 24 hr 12/31/24 14:10 12/31/24 18:20 12/31/24 18:25 Temperature 97.0 F L 98.1 F Pulse Rate 59 L 59 L Pulse Rate [Right Pulse Oximeter] 53 L Respiratory Rate 18 14 16 Blood Pressure 125/61 118/60 Blood Pressure [Le ft Arm] Blood Pressure [Ri ght Upper Arm] 119/60 Pulse Oximetry 96 90 90 Oxygen Delivery Me thod Room Air Room Air Room Air Oxygen Flow Rate 12/31/24 18:30 12/31/24 18:50 12/31/24 19:05 Temperature 97.3 F L 97.6 F Pulse Rate 56 L 55 L Pulse Rate [Right Pulse Oximeter] 56 L Respiratory Rate 16 14 16 Blood Pressure 120/65 121/61 Blood Pressure [Le ft Arm] 125/63 Blood Pressure [Ri ght Upper Arm] Pulse Oximetry 97 97 95 Oxygen Delivery Me thod Nasal Cannula Nasal Cannula Room Air Oxygen Flow Rate 1 1 12/31/24 19:20 12/31/24 19:20 12/31/24 19:34 Temperature 96.0 F L 96.0 F L 96.0 F L Pulse Rate 60 58 L Pulse Rate [Right Pulse Oximeter] Respiratory Rate 16 16 16 Blood Pressure 136/63 138/66 Blood Pressure [Le ft Arm] Blood Pressure [Ri ght Upper Arm] Pulse Oximetry 95 95 95 Oxygen Delivery Me thod Room Air Room Air Room Air Oxygen Flow Rate 1 12/31/24 19:50 12/31/24 20:04 12/31/24 20:35 Temperature 96.4 F L 96.4 F L 96.4 F L Pulse Rate 60 62 64 Pulse Rate [Right Pulse Oximeter] Respiratory Rate 16 16 16 Blood Pressure 140/65 H 140/65 H 125/63 Blood Pressure [Le ft Arm] Blood Pressure [Ri ght Upper Arm] Pulse Oximetry 94 88 96 Oxygen Delivery Me thod Room Air Room Air Nasal Cannula Oxygen Flow Rate 2 12/31/24 21:05 12/31/24 21:25 12/31/24 21:30 Temperature 96.8 F L 96.8 F L Pulse Rate 68 67 68 Pulse Rate [Right Pulse Oximeter] Respiratory Rate 16 16 Blood Pressure 140/71 H 137/76 Blood Pressure [Le ft Arm] Blood Pressure [Ri ght Upper Arm] Pulse Oximetry 97 97 Oxygen Delivery Me thod Nasal Cannula Nasal Cannula Oxygen Flow Rate 1 12/31/24 22:05 12/31/24 23:00 12/31/24 23:04 Temperature 96.8 F L Pulse Rate 66 69 Pulse Rate [Right Pulse Oximeter] Respiratory Rate 16 Blood Pressure 134/69 Blood Pressure [Le ft Arm] Blood Pressure [Ri ght Upper Arm] Pulse Oximetry 97 95 Oxygen Delivery Me thod Nasal Cannula Nasal Cannula Oxygen Flow Rate 1 0.5 12/31/24 23:05 12/31/24 23:10 12/31/24 23:15 Temperature 97.1 F L Pulse Rate 73 74 75 Pulse Rate [Right Pulse Oximeter] Respiratory Rate 14 Blood Pressure 123/68 Blood Pressure [Le ft Arm] Blood Pressure [Ri ght Upper Arm] Pulse Oximetry 95 96 95 Oxygen Delivery Me thod Nasal Cannula Oxygen Flow Rate 0.5 12/31/24 23:30 12/31/24 23:45 01/01/25 00:00 Temperature Pulse Rate 73 76 74 Pulse Rate [Right Pulse Oximeter] Respiratory Rate Blood Pressure Blood Pressure [Le ft Arm] Blood Pressure [Ri ght Upper Arm] Pulse Oximetry 94 92 95 Oxygen Delivery Me thod Oxygen Flow Rate 01/01/25 00:02 01/01/25 00:02 01/01/25 00:02 Temperature 97.1 F L Pulse Rate 74 74 74 Pulse Rate [Right Pulse Oximeter] Respiratory Rate Blood Pressure 127/71 127/71 127/71 Blood Pressure [Le ft Arm] Blood Pressure [Ri ght Upper Arm] Pulse Oximetry 94 94 94 Oxygen Delivery Me thod Oxygen Flow Rate 01/01/25 00:03 01/01/25 00:15 01/01/25 00:30 Temperature Pulse Rate 73 73 79 Pulse Rate [Right Pulse Oximeter] Respiratory Rate Blood Pressure Blood Pressure [Le ft Arm] Blood Pressure [Ri ght Upper Arm] Pulse Oximetry 95 94 95 Oxygen Delivery Me thod Oxygen Flow Rate 01/01/25 01:00 01/01/25 01:02 01/01/25 01:03 Temperature Pulse Rate 77 76 78 Pulse Rate [Right Pulse Oximeter] Respiratory Rate Blood Pressure 135/75 Blood Pressure [Le ft Arm] Blood Pressure [Ri ght Upper Arm] Pulse Oximetry 94 94 94 Oxygen Delivery Me thod Oxygen Flow Rate 01/01/25 01:15 01/01/25 01:30 01/01/25 02:00 Temperature Pulse Rate 77 78 81 Pulse Rate [Right Pulse Oximeter] Respiratory Rate Blood Pressure Blood Pressure [Le ft Arm] Blood Pressure [Ri ght Upper Arm] Pulse Oximetry 95 94 94 Oxygen Delivery Me thod Oxygen Flow Rate 01/01/25 02:02 01/01/25 03:00 01/01/25 03:02 Temperature 97.4 F L Pulse Rate 80 82 89 Pulse Rate [Right Pulse Oximeter] Respiratory Rate 16 Blood Pressure 125/73 125/75 Blood Pressure [Le ft Arm] Blood Pressure [Ri ght Upper Arm] Pulse Oximetry 94 94 94 Oxygen Delivery Me thod Oxygen Flow Rate 01/01/25 03:03 01/01/25 04:00 01/01/25 04:02 Temperature 97.4 F L Pulse Rate 86 79 80 Pulse Rate [Right Pulse Oximeter] Respiratory Rate 16 Blood Pressure 139/79 Blood Pressure [Le ft Arm] Blood Pressure [Ri ght Upper Arm] Pulse Oximetry 95 95 95 Oxygen Delivery Me thod Oxygen Flow Rate 01/01/25 05:00 01/01/25 07:00 01/01/25 07:00 Temperature Pulse Rate 83 87 Pulse Rate [Right Pulse Oximeter] 87 Respiratory Rate 16 Blood Pressure Blood Pressure [Le ft Arm] Blood Pressure [Ri ght Upper Arm] Pulse Oximetry 95 Oxygen Delivery Me thod Oxygen Flow Rate 01/01/25 07:52 01/01/25 08:00 Temperature Pulse Rate 82 Pulse Rate [Right Pulse Oximeter] Respiratory Rate 18 Blood Pressure 139/78 Blood Pressure [Le ft Arm] Blood Pressure [Ri ght Upper Arm] Pulse Oximetry 94 95 Oxygen Delivery Me thod Room Air Room Air Oxygen Flow Rate Documenting provider has reviewed patient's vital signs: yes Labs Labs: Laboratory Results - last 24 hr 01/01/25 05:56 WBC 11.21 H RBC 3.27 L Hgb 11.7 L Hct 34.3 L MCV 105 H MCH 36 H MCHC 34 RDW Coeff of Dorie 14.0 Plt Count 124 L Neut % (Auto) 89.7 H Lymph % (Auto) 6.1 L [place] % (Auto) 2.9 Eos % (Auto) 0.0 Baso % (Auto) 0.1 Neut # (Auto) 10.10 H Lymph # (Auto) 0.70 L [place] # (Auto) 0.30 Eos # (Auto) 0.00 Baso # (Auto) 0.00 Abs Immat Gran (auto) 0.10 Imm/Tot Granulo (auto) 1.2 Sodium 129 L Potassium 4.8 Chloride 102 Carbon Dioxide 25 Anion Gap 2 L BUN 23 Creatinine 1.4 Estimated Creat Clear 40.61 Estimated GFR 51 Glucose 130 H Hemoglobin A1c 5.4 Calcium 7.9 L Phosphorus 4.0 Magnesium 2.0 NT-Pro-B Natriuret Pep 497 H
--- NOTE | 2025-01-01 14:45 | PC.SOCIAL ---
Social Work Initial Assessment: 1.??? Assessment completed with: Patient, Spouse, Child, Friend, Other: Patient 2.??? Pt lives at address and phone number on face sheet? Own home with 3.?Insurance information? on face sheet is correct? Yes 4.?Contacts? on face sheet are correct? Yes 5.??? Does pt have a Healthcare Directive, POLST or Guardian? Yes, not in file in [id number] 6.??? Who is the pt?s main source/sources of emotional/physical support? 7.??? Prior to admission did pt need assistance? Yes/No No 8.??? Who provided and what was the assistance needed? N/A 9.??? Was Home Health being provided, by what agency? No 10. Does pt use/have medical equipment at home already? What? No 11. Will there be a need for additional assistance at discharge and is this available in previous setting? None at this time 12. If pt needs to go to a higher level of care, are they open to this and do they have facilities they are interested in? No additional level of care recommended at this time. 13. How would pt plan to transport at discharge? 14. Is there anyone pt would like social science professor to contact to discuss discharge plans? No Other information:
--- NOTE | 2025-01-01 19:28 | PC.NURSE ---
Nursing Care Hours: [id number] Pt this shift calm and cooperative, alert and oriented. Pain rated 2-5/10, Dilaudid given x1. Walking [place] Q2H. Ax1 initially and pt indepedent by end of shift. Bandage to midline CDI, BS hypoactive. Denies nausea. Not passing gas. VSS, pt using IS independently. Rayo removed, pt voided x1.
[2025-01-01] MEDS: ENOXAPARIN 40 MG/0.4 ML INJ SUBCUT (21:14)
[2025-01-02] VITALS (13 sets, daily range): BP systolic 158–166; BP diastolic 83–91; PULSE 66–83; RESP 16–18; TEMP 36.3–36.4; O2SAT 95
[2025-01-02] MEDS: METOPROLOL TARTRATE 1 MG/ML inj 2.5 MG IVP ×2 (02:44→08:42)
[2025-01-02] MEDS: 5 % DEXTROSE/0.9% SOD CHLORIDE 1,000 ML 125 ML IV ×3 (04:06→19:50)
--- NOTE | 2025-01-02 04:23 | PC.NURSE ---
Shift note: Patient has been walking several times in hallway. Alert and oriented, vitally stable. Dressing clean, dry and intact. Pain rated at 2 and did not require pain medication. Patient denied passing gas. Hypoactive bowel sound in all 4 quadrants.
[2025-01-02 06:51] LABS: Hematocrit 33.6 % (37.0-53.0); Hemoglobin* 11.3 gm/dL (13.5-17.5); Mean Corpuscular HGB Conc 34 gm/dL (32-36); Mean Corpuscular Hemoglobin 36 pg (26-34); Mean Corpuscular Volume 108 fL (80-100); Red Blood Count 3.11 m/uL (4.30-5.90); White Blood Count* 7.52 K/uL (4.50-11.00)
[2025-01-02 06:52] LABS: Slide Review Reflex No
[2025-01-02 07:07] LABS: Chloride* 105 mmol/L (96-114); Potassium* 4.2 mmol/L (3.6-5.1); Sodium* 133 mmol/L (135-149)
[2025-01-02 07:10] LABS: Blood Urea Nitrogen* 20 mg/dL (7-30); Creatinine* 1.3 mg/dL (0.5-1.5); Est. Creatinine Clearance* 44.54; Estimated Glomerular Filt Rate 56 ml/min
[2025-01-02 07:11] LABS: Anion Gap 2 mEq/L (7-15); Calcium* 7.9 mg/dL (8.4-10.6); Carbon Dioxide* 26 mmol/L (20-32); Glucose* 129 mg/dL (60-115)
[2025-01-02] MEDS: FUROSEMIDE 10 MG/ML inj 20 MG IVP (08:49)
--- NOTE | 2025-01-02 09:28 | SUR.PHASEI ---
phase 1 on 12/31/24 was completed by yon arguello, confirmed by house mother Janett and based off of documentation of vital signs. Yon Arguello was in phase 1 recovering patient after sugery from [id number] on 12/31/24 confirmed by charting documentation and OR Nurse,
--- NOTE | 2025-01-02 09:35 | PM.GSPN ---
Subjective Subjective Date Seen: 01/02/25 Interval history: Patient is doing well. Denies any abdominal pain. No nausea, is feeling hungry. Has been walking the halls without difficulty. Passed a small amount of gas this morning, no bowel movement. Exam Narrative: Exam Narrative: General: Alert and oriented, no acute distress Abdomen: Soft, appropriately tender over incision site and on right side, steri strips in place clean/dry/intact Const: Vital Signs, click to edit/add: Vital Signs - 24 hr 01/01/25 15:00 01/01/25 15:00 01/01/25 15:43 Temperature Pulse Rate 80 82 Respiratory Rate 16 16 Blood Pressure 145/85 H Pulse Oximetry 96 96 Oxygen Delivery [facility]od Room Air Room Air 01/01/25 19:00 01/01/25 19:00 01/01/25 23:00 Temperature 97.5 F L Pulse Rate 78 65 Respiratory Rate 16 16 Blood Pressure 152/80 H Pulse Oximetry 96 [facility] 01/01/25 23:00 01/01/25 23:00 01/02/25 02:40 Temperature 97.4 F L Pulse Rate 72 Respiratory Rate 16 16 16 Blood Pressure 160/98 H Pulse Oximetry 96 96 [facility] 01/02/25 02:40 01/02/25 07:37 01/02/25 08:23 Temperature 97.4 F L 97.6 F Pulse Rate 70 67 77 Respiratory Rate 16 16 Blood Pressure 165/83 H 161/87 H Pulse Oximetry 95 95 [facility] 01/02/25 08:28 Temperature Pulse Rate Respiratory Rate Blood Pressure Pulse Oximetry 95 [facility] Labs/Imaging Labs Labs: No leukocytosis. Hgb stable at 11.3 Progress Note:A&P Assessment and plan (1) Cecal volvulus: Status: Acute Assessment and Plan: Patient is postop day 2 ileocecectomy with [id number] functional end-to-end anastomosis. VSS. No acute events. Patient passed some gas this morning. Will start clears Plan -clear liquids. Will hold off on advancing further until he has a BM. -IV and p.o. pain meds as needed. Ok to transition to po meds. -hospitalist consulted. Recommend patient continue to hold his immunosuppression, cabozantinib, for 2 weeks. -encourage ambulation of the halls -SCDs and Lovenox for DVT prophylaxis
--- NOTE | 2025-01-02 13:03 | P.IMPN_ITS ---
Assessment and Plan Assessment and plan (1) Cecal volvulus: Problem comment: - status post exploratory laparotomy and ileocecectomy 12/31/2024, Dr. Peñaloza, [facility] Clear liquid diet today Status: Acute (2) Atrial fibrillation: Problem comment: Transition from IV to oral medication for rate control and blood pressure Status: Acute (3) Acute hyponatremia: Problem comment: Improving Status: Acute (4) Stage 3 chronic kidney disease: Problem comment: Improving creatinine Status: Chronic (5) Nephrotic range proteinuria: Problem comment: - 11/20/24: 24 hour urine protein:Cr 3,634 mg/g, improved since 05/2024 - continue to optimize lisinopril at 20 mg daily if BP allows, vs decrease dose to 10 mg daily or stop if warranted - poor candidate for SGLT2-I due to poor oral intake and intermittent diarrhea, 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 This is on hold. Will schedule furosemide 20 mg IV every day for now and monitor closely - consider restarting lisinopril when he is able to take medications orally again Status: Acute (6) Malignant neoplasm of right kidney: Problem comment: - Stage IV Clear cell renal carcinoma, abstracted [facility] 09/13 - Most recent whole body PET CT on 12/18/2024: broadly stable subpleural nodule between the right 5th and 6th intercostal space and lateral right hepatic lobe, with development of new FDG avid thickening in right inferomedial pleura highly suspicious for progression of disease. Hold immunotherapy for now Status: Acute (7) Hypertension: Problem comment: Resume oral blood pressure medications as tolerated Status: Acute Plan Continue in hospital for postop management, IV fluids, pain management, management of chronic medical problems. Advance diet as tolerated per surgery. Total Time Spent Total Time Spent: Total time spent today is 35 minutes in coordination of care and discussing with patient and other providers ongoing management of postoperative care and chronic medical problems Subjective Date Seen: 01/02/25 Interval history: 79-year-old male admitted to the hospital with abdominal cramping, weakness, fatigue. This started 4 days prior to admission. He reports he has had occasional episodes of abdominal cramping for a long time. 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 Recent PET scan suggests progression of disease. At the time of admission he was found to have a cecal volvulus on CT scan. He underwent surgery with Dr. Peñaloza for urgent laparotomy and ileocecectomy. 01/01/2025: Postop day 1 patient reports feeling well today. Having some abdominal pain consistent with his postoperative status. He has no fever, dyspnea, chest pain. 01/02/2025: Postop day 2 patient reports feeling well again today. He has passed some gas. He is started on clear liquids by mouth. Abdominal pain is minimal. No nausea, dyspnea, chest pain, fever. Exam Narrative: Exam Narrative: He is alert and appears in no distress. Speech is normal. He is oriented to his circumstances. Respirations are clear to auscultation. Cardiovascular: S1, S2, regular rate and rhythm. Abdomen: Bowel sounds active. Laparotomy incision is clean and dry without erythema. Abdomen is soft with minimal tenderness in the mid abdomen. Extremities without edema. Good peripheral perfusion. Const: Vital Signs, click to edit/add: Vital Signs - 24 hr 01/01/25 15:00 01/01/25 15:00 01/01/25 15:43 Temperature Pulse Rate 80 82 Respiratory Rate 16 16 Blood Pressure 145/85 H Pulse Oximetry 96 96 [facility] 01/01/25 19:00 01/01/25 19:00 01/01/25 23:00 Temperature 97.5 F L Pulse Rate 78 65 Respiratory Rate 16 16 Blood Pressure 152/80 H Pulse Oximetry 96 [facility] 01/01/25 23:00 01/01/25 23:00 01/02/25 02:40 Temperature 97.4 F L Pulse Rate 72 Respiratory Rate 16 16 16 Blood Pressure 160/98 H Pulse Oximetry 96 96 [facility] 01/02/25 02:40 01/02/25 07:37 01/02/25 08:23 Temperature 97.4 F L 97.6 F Pulse Rate 70 67 77 Respiratory Rate 16 16 Blood Pressure 165/83 H 161/87 H Pulse Oximetry 95 95 [facility] 01/02/25 08:28 01/02/25 11:41 01/02/25 11:56 Temperature Pulse Rate 83 Respiratory Rate 16 16 Blood Pressure 158/89 H Pulse Oximetry 95 95 [facility] Documenting provider has reviewed patient's vital signs: yes Labs Labs: Laboratory Results - last 24 hr 01/02/25 06:25 WBC 7.52 RBC 3.11 L Hgb 11.3 L Hct 33.6 L MCV 108 H MCH 36 H MCHC 34 Plt Count 128 L Sodium 133 L Potassium 4.2 Chloride 105 Carbon Dioxide 26 Anion Gap 2 L BUN 20 Creatinine 1.3 Estimated Creat Clear 44.54 Estimated GFR 56 Glucose 129 H Calcium 7.9 L
[2025-01-02] MEDS: METOPROLOL TARTRATE 25 MG TABLET PO ×2 (14:13→21:00)
--- NOTE | 2025-01-02 15:21 | PC.NURSE ---
Pt is doing well today. Continues to be hypertensive, provider aware. Pt reports 2/10 pain in the abdomen, denies prn pain medication. Surgical site is open to air, clean, dry and intact. Pt is ambulating independently in halls and tolerating well. Pt reports passing gas once this morning, however not since then. Pt is drinking water and tolerating well. is at bedside.
[2025-01-02] MEDS: ENOXAPARIN 40 MG/0.4 ML INJ SUBCUT (21:01)
[2025-01-02] MEDS: TAMSULOSIN HCL 0.4 MG CAPSULE PO (21:01)
--- NOTE | 2025-01-02 22:29 | PC.NURSE ---
[id number]: Pt is AOX4. VSS. Pt. is pleasant & cooperative w/ cares. Pt. abd surgical incision steri strip is CDI. Pt. had slight edema R hand, elevation and movement decreased the swelling. Family bedside for a visit; supportive. Pt. uses BR independently w/ IV pole. Pt. resting comfortably in bed w/ call light w/i reach.
[2025-01-03] VITALS (13 sets, daily range): BP systolic 119–166; BP diastolic 69–90; PULSE 66–120; RESP 16–20; TEMP 36.1–36.8; O2SAT 93–98
[2025-01-03] MEDS: 5 % DEXTROSE/0.9% SOD CHLORIDE 1,000 ML 125 ML IV (02:23)
--- NOTE | 2025-01-03 06:45 | PC.NURSE ---
Arrived at 2330 to find the patient resting comfortably in bed without discomfort or nausea. Alert and oriented and vitally stable. Midline incision appears well. Belly is soft to the touch and non-tender. Bowel sounds on the right are hypoactive while the left side presents the sounds of normal activity. The patient is able to ambulate safely from bed to toilet and back with the assist of one. Blood sugars well controlled overnight without insulin. No major developments overnight. ?
[2025-01-03 06:47] LABS: Hematocrit 26.4 % (37.0-53.0); Hemoglobin* 8.8 gm/dL (13.5-17.5); Mean Corpuscular HGB Conc 33 gm/dL (32-36); Mean Corpuscular Hemoglobin 36 pg (26-34); Mean Corpuscular Volume 109 fL (80-100); Red Blood Count 2.42 m/uL (4.30-5.90); White Blood Count* 5.09 K/uL (4.50-11.00)
[2025-01-03 06:48] LABS: Slide Review Reflex No
[2025-01-03 06:52] LABS: Chloride* 110 mmol/L (96-114); Sodium* 133 mmol/L (135-149)
[2025-01-03 06:53] LABS: Potassium* 3.7 mmol/L (3.6-5.1)
[2025-01-03 06:55] LABS: Blood Urea Nitrogen* 15 mg/dL (7-30); Creatinine* 1.1 mg/dL (0.5-1.5); Est. Creatinine Clearance* 53.50; Estimated Glomerular Filt Rate 68 ml/min
[2025-01-03 06:56] LABS: Anion Gap -2 mEq/L (7-15); Calcium* 7.2 mg/dL (8.4-10.6); Carbon Dioxide* 25 mmol/L (20-32); Glucose* 119 mg/dL (60-115)
--- NOTE | 2025-01-03 07:25 | PM.GSPN ---
Subjective Subjective Date Seen: 01/03/25 Interval history: Patient is doing well this morning. Denies any pain unless you push on it. Has been walking the halls without difficulty. Passed gas twice this morning. Has been tolerating clear liquid without nausea. Does feel a little more distended this morning. No other concerns. Exam Narrative: Exam Narrative: Gen: alert and oriented, NAD Abd: moderate distension, non tender to palpation. steri strips c/d/i Const: Vital Signs, click to edit/add: Vital Signs - 24 hr 01/02/25 07:37 01/02/25 08:23 01/02/25 08:28 Temperature 97.6 F Pulse Rate 67 77 Pulse Rate [Right Pulse Oximeter] Respiratory Rate 16 Blood Pressure 161/87 H Blood Pressure [Le ft Arm] Pulse Oximetry 95 95 Oxygen Delivery Me thod Room Air Room Air 01/02/25 11:41 01/02/25 11:56 01/02/25 15:00 Temperature Pulse Rate 83 Pulse Rate [Right Pulse Oximeter] Respiratory Rate 16 16 16 Blood Pressure 158/89 H Blood Pressure [Le ft Arm] Pulse Oximetry 95 95 Oxygen Delivery Me thod Room Air 01/02/25 15:10 01/02/25 15:59 01/02/25 18:07 Temperature 97.4 F L Pulse Rate 74 67 Pulse Rate [Right Pulse Oximeter] Respiratory Rate 16 16 Blood Pressure 166/91 H Blood Pressure [Le ft Arm] Pulse Oximetry 95 Oxygen Delivery Me thod 01/02/25 22:57 01/02/25 23:30 01/02/25 23:40 Temperature 97.3 F L Pulse Rate 66 Pulse Rate [Right Pulse Oximeter] 75 Respiratory Rate 18 16 Blood Pressure Blood Pressure [Le ft Arm] 160/86 H Pulse Oximetry 95 95 Oxygen Delivery Me thod Room Air Room Air 01/03/25 02:45 Temperature 96.9 F L Pulse Rate Pulse Rate [Right Pulse Oximeter] 72 Respiratory Rate 16 Blood Pressure Blood Pressure [Le ft Arm] 139/81 Pulse Oximetry 95 Oxygen Delivery Me thod Room Air Labs/Imaging Labs Labs: No leukocytosis. Hgb 11 --> 8.8, likely dilutional with no concern for bleeding. Progress Note:A&P Assessment and plan (1) Cecal volvulus: Status: Acute Assessment and Plan: Patient is postop day 3 ileocecectomy with [id number] functional end-to-end anastomosis. VSS. No acute events. Continues to pass gas and ambulate. Plan -clear liquids. Will hold off on advancing further until he has a BM. -IV and p.o. pain meds as needed. Ok to transition to po meds. -hospitalist consulted. Recommend patient continue to hold his immunosuppression, cabozantinib, for 2 weeks. -encourage ambulation of the halls -SCDs and Lovenox for DVT prophylaxis
[2025-01-03] MEDS: METOPROLOL TARTRATE 25 MG TABLET PO ×2 (07:42→21:03)
[2025-01-03] MEDS: FUROSEMIDE 40 MG TABLET PO (07:42)
--- NOTE | 2025-01-03 10:40 | P.IMPN_ITS ---
Assessment and Plan Assessment and plan (1) Cecal volvulus: Problem comment: - status post exploratory laparotomy and ileocecectomy 12/31/2024, Dr. Peñaloza, [facility] Clear liquid diet tolerated well. Status: Acute (2) Atrial fibrillation: Problem comment: Uncertain diagnosis with history of tachy palpitations. Continue beta-key and as tolerated diltiazem. 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 This is on hold. Will schedule furosemide 20 mg IV every day for now and monitor closely - consider restarting lisinopril when he is able to take medications orally again Status: Acute (4) Hypertension: Problem comment: Resume oral blood pressure medications as tolerated. Status: Acute Plan Continue in hospital for ongoing postoperative care and monitoring and management of chronic medical problems. Total Time Spent Total Time Spent: Total time spent today is 30 minutes in coordination of care discussing with patient and other providers ongoing management of postop care and chronic medical problems Subjective Date Seen: 01/03/25 Interval history: 79-year-old male admitted to the hospital with abdominal cramping, weakness, fatigue. This started 4 days prior to admission. He reports he has had occasional episodes of abdominal cramping for a long time. 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 Recent PET scan suggests progression of disease. At the time of admission he was found to have a cecal volvulus on CT scan. He underwent surgery with Dr. Peñaloza for urgent laparotomy and ileocecectomy. 01/01/2025: Postop day 1 patient reports feeling well today. Having some abdominal pain consistent with his postoperative status. He has no fever, dyspnea, chest pain. 01/02/2025: Postop day 2 patient reports feeling well again today. He has passed some gas. He is started on clear liquids by mouth. Abdominal pain is minimal. No nausea, dyspnea, chest pain, fever. 01/03/2025: Postop day 3. Patient reports continued to feel well. He has minimal pain. He continues to pass gas. He has been on clear liquids. No nausea. No dyspnea. No fever. The patient has a history of episodic tachy palpitations. This was evaluated between 2019 in 2021. There was concern for episodic atrial fibrillation but never confirmed. He remains on diltiazem and metoprolol and has been relatively asymptomatic. During this hospital stay he has been in sinus rhythm. He is also followed outpatient with Nephrology for management of hypertension and proteinuria. Exam Narrative: Exam Narrative: He is alert and appears in no distress. Respirations are clear to auscultation. Cardiovascular: S1, S2, regular rate and rhythm. Abdomen: Bowel sounds are present. Abdomen is soft with mild tenderness around the incision which is clean and dry. Extremities with trace edema. Good peripheral perfusion and pulses. Const: Vital Signs, click to edit/add: Vital Signs - 24 hr 01/02/25 11:41 01/02/25 11:56 01/02/25 15:00 Temperature Pulse Rate 83 Pulse Rate [Right Pulse Oximeter] Respiratory Rate 16 16 16 Blood Pressure 158/89 H Blood Pressure [Le ft Arm] Pulse Oximetry 95 95 Oxygen Delivery Me thod Room Air 01/02/25 15:10 01/02/25 15:59 01/02/25 18:07 Temperature 97.4 F L Pulse Rate 74 67 Pulse Rate [Right Pulse Oximeter] Respiratory Rate 16 16 Blood Pressure 166/91 H Blood Pressure [Le ft Arm] Pulse Oximetry 95 Oxygen Delivery Pa thod 01/02/25 22:57 01/02/25 23:30 01/02/25 23:40 Temperature 97.3 F L Pulse Rate 66 Pulse Rate [Right Pulse Oximeter] 75 Respiratory Rate 18 16 Blood Pressure Blood Pressure [Le ft Arm] 160/86 H Pulse Oximetry 95 95 [facility] 01/03/25 02:45 01/03/25 07:53 01/03/25 07:54 Temperature 96.9 F L 97.8 F Pulse Rate Pulse Rate [Right Pulse Oximeter] 72 70 Respiratory Rate 16 20 20 Blood Pressure Blood Pressure [Le ft Arm] 139/81 141/87 H Pulse Oximetry 95 95 [facility] Room Air 01/03/25 07:55 Temperature Pulse Rate 69 Pulse Rate [Right Pulse Oximeter] Respiratory Rate Blood Pressure Blood Pressure [Le ft Arm] Pulse Oximetry Oxygen Delivery Me thod Documenting provider has reviewed patient's vital signs: yes Labs Labs: Laboratory Results - last 24 hr 01/03/25 06:24 WBC 5.09 RBC 2.42 L Hgb 8.8 L Hct 26.4 L MCV 109 H MCH 36 H MCHC 33 Plt Count 106 L Sodium 133 L Potassium 3.7 Chloride 110 Carbon Dioxide 25 Anion Gap -2 L BUN 15 Creatinine 1.1 Estimated Creat Clear 53.50 Estimated GFR 68 Glucose 119 H Calcium 7.2 L
--- NOTE | 2025-01-03 18:54 | PC.NURSE ---
End of shift [id number] - Pt alert, oriented, cooperative. Up with standby assistance in room. Reported pain in abdomen as 2/10, refused ice pack and medication available per MAR. Pt reported flatus during shift, no BM noted. Midline incision CDI. Pt appears to be resting in chair with call light within reach at end of shift.
[2025-01-03] MEDS: TAMSULOSIN HCL 0.4 MG CAPSULE PO (21:03)
[2025-01-03] MEDS: ENOXAPARIN 40 MG/0.4 ML INJ SUBCUT (21:03)
[2025-01-04] VITALS (8 sets, daily range): BP systolic 130–148; BP diastolic 59–84; PULSE 64–90; RESP 18–20; TEMP 36.3–36.8; O2SAT 96–98
[2025-01-04 06:48] LABS: Hematocrit 28.1 % (37.0-53.0); Hemoglobin* 9.3 gm/dL (13.5-17.5); Mean Corpuscular HGB Conc 33 gm/dL (32-36); Mean Corpuscular Hemoglobin 36 pg (26-34); Mean Corpuscular Volume 108 fL (80-100); Red Blood Count 2.61 m/uL (4.30-5.90); White Blood Count* 4.57 K/uL (4.50-11.00)
[2025-01-04 06:52] LABS: Slide Review Reflex No
--- NOTE | 2025-01-04 06:58 | PC.NURSE ---
Arrived to find the patient resting in their chair, alert and oriented. Vitally they have been having a variable heart rate and variable blood pressure. 1935 vitals showed a heart rate up to the mid 120s and a blood pressure of 119/69. 239 vitals showed a heart rate down to 70 with a blood pressure of 144/80. Their telemetry has showed an irregular, sinus rhythm through the night. Frequent PVCs. No pain has been reported overnight, just a tolerable discomfort. No nausea. The patient is producing gas but they have not yet produced stool. They are ambulating frequently and without problem in the halls and in their room. Hypoactive bowel noises in all quadrants. Blood sugars have remained acceptable without insulin. No further developments overnight. ?
[2025-01-04 07:02] LABS: Chloride* 106 mmol/L (96-114); Potassium* 4.0 mmol/L (3.6-5.1); Sodium* 131 mmol/L (135-149)
[2025-01-04 07:05] LABS: Anion Gap 1 mEq/L (7-15); Blood Urea Nitrogen* 19 mg/dL (7-30); Calcium* 7.6 mg/dL (8.4-10.6); Carbon Dioxide* 24 mmol/L (20-32); Creatinine* 1.2 mg/dL (0.5-1.5); Est. Creatinine Clearance* 49.14; Estimated Glomerular Filt Rate 61 ml/min; Glucose* 100 mg/dL (60-115)
[2025-01-04] MEDS: FUROSEMIDE 40 MG TABLET PO (08:26)
[2025-01-04] MEDS: METOPROLOL TARTRATE 25 MG TABLET PO ×2 (08:26→21:32)
--- NOTE | 2025-01-04 10:41 | P.IMPN_ITS ---
Assessment and Plan Assessment and plan (1) Cecal volvulus: Problem comment: - status post exploratory laparotomy and ileocecectomy 12/31/2024, Dr. Peñaloza, [facility] Clear liquid diet tolerated well. Advanced diet per General surgery Status: Acute (2) Atrial fibrillation: Problem comment: Uncertain diagnosis with history of tachy palpitations. Continue beta-key and as tolerated diltiazem. No anticoagulation indicated. 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 This is on hold. Will schedule furosemide 20 mg IV every day for now and monitor closely - consider restarting lisinopril when he is able to take medications orally again Status: Acute (4) Hypertension: Problem comment: Resume oral blood pressure medications as tolerated. Status: Acute Plan Continue in hospital for postop management, advancing diet and management of chronic medical problems. Total Time Spent Total Time Spent: Total time spent today is 35 minutes in coordination of care discussing with patient and other providers management of above problems. Subjective Date Seen: 01/04/25 Interval history: 79-year-old male admitted to the hospital with abdominal cramping, weakness, fatigue. This started 4 days prior to admission. He reports he has had occasional episodes of abdominal cramping for a long time. 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 Recent PET scan suggests progression of disease. At the time of admission he was found to have a cecal volvulus on CT scan. He underwent surgery with Dr. Peñaloza for urgent laparotomy and ileocecectomy. 01/01/2025: Postop day 1 patient reports feeling well today. Having some abdominal pain consistent with his postoperative status. He has no fever, dyspnea, chest pain. 01/02/2025: Postop day 2 patient reports feeling well again today. He has passed some gas. He is started on clear liquids by mouth. Abdominal pain is minimal. No nausea, dyspnea, chest pain, fever. 01/03/2025: Postop day 3. Patient reports continued to feel well. He has minimal pain. He continues to pass gas. He has been on clear liquids. No nausea. No dyspnea. No fever. The patient has a history of episodic tachy palpitations. This was evaluated between 2019 in 2021. There was concern for episodic atrial fibrillation but never confirmed. He remains on diltiazem and metoprolol and has been relatively asymptomatic. During this hospital stay he has been in sinus rhythm. He is also followed outpatient with Nephrology for management of hypertension and proteinuria. 01/04/2025: Postop day 4. Patient reports feeling well today. Minimal pain. Passed a small liquid stool with blood this morning. He is feeling more abdominal cramping today. No dyspnea. No fever. Exam Narrative: Exam Narrative: He is alert appears in no distress. Breathing is unlabored. Cardiovascular: S1, S2, regular rhythm with frequent premature beats. Abdomen is soft. Bowel sounds are very active. Incision is clean and dry. Minimal erythema along the staple line. Trace extremity edema. Intact pulses. Const: Vital Signs, click to edit/add: Vital Signs - 24 hr 01/03/25 11:16 01/03/25 14:40 01/03/25 15:00 Temperature 97.8 F 97.3 F L Pulse Rate Pulse Rate [Right Pulse Oximeter] 70 Respiratory Rate 18 18 Blood Pressure [Le ft Arm] 142/82 H Pulse Oximetry 96 [facility] 01/03/25 15:00 01/03/25 15:02 01/03/25 19:45 Temperature 97.5 F L 98.3 F Pulse Rate 72 Pulse Rate [Right Pulse Oximeter] 88 120 H Respiratory Rate 18 18 Blood Pressure [Le ft Arm] 135/85 119/69 Pulse Oximetry 97 93 [facility] Air 01/03/25 22:29 01/03/25 22:39 01/03/25 22:40 Temperature 97.9 F Pulse Rate Pulse Rate [Right Pulse Oximeter] 66 70 Respiratory Rate 18 16 Blood Pressure [Le ft Arm] 166/90 H Pulse Oximetry 98 98 [facility] 01/03/25 23:00 01/04/25 02:40 01/04/25 07:00 Temperature 97.8 F Pulse Rate 69 78 Pulse Rate [Right Pulse Oximeter] 73 Respiratory Rate 18 Blood Pressure [Le ft Arm] 144/80 H Pulse Oximetry 97 Oxygen Delivery Me thod Room Air 01/04/25 07:00 01/04/25 07:00 Temperature 97.5 F L Pulse Rate Pulse Rate [Right Pulse Oximeter] 74 Respiratory Rate 18 18 Blood Pressure [Le ft Arm] 139/72 Pulse Oximetry 96 96 Oxygen Delivery Me thod Room Air Room Air Documenting provider has reviewed patient's vital signs: yes Labs Labs: Laboratory Results - last 24 hr 01/04/25 06:20 WBC 4.57 RBC 2.61 L Hgb 9.3 L Hct 28.1 L MCV 108 H MCH 36 H MCHC 33 Plt Count 128 L Sodium 131 L Potassium 4.0 Chloride 106 Carbon Dioxide 24 Anion Gap 1 L BUN 19 Creatinine 1.2 Estimated Creat Clear 49.14 Estimated GFR 61 Glucose 100 Calcium 7.6 L
--- NOTE | 2025-01-04 15:03 | PM.GSPN ---
Subjective Subjective Date Seen: 01/04/25 Interval history: Patient continues to ambulate without difficulty. He has had several looser stools today and passing a lot of gas. He has noticed some bright red blood in the toilet bowl after his bowel movements. Denies passage of blood clots. He denies feeling dizziness or lightheaded. He had some toast earlier today and tolerated that well. He has an appetite, but is increasing anything. He does want to try some oatmeal this afternoon. Exam Narrative: Exam Narrative: Abdomen: Soft, nontender nondistended. Midline incision with Steri-Strips in place clean/dry/intact. Const: Vital Signs, click to edit/add: Vital Signs - 24 hr 01/03/25 19:45 01/03/25 22:29 01/03/25 22:39 Temperature 98.3 F 97.9 F Pulse Rate Pulse Rate [Right Pulse Oximeter] 120 H 66 70 Respiratory Rate 18 18 Blood Pressure [Le ft Arm] 119/69 166/90 H Pulse Oximetry 93 98 [facility] 01/03/25 22:40 01/03/25 23:00 01/04/25 02:40 Temperature 97.8 F Pulse Rate 69 Pulse Rate [Right Pulse Oximeter] 73 Respiratory Rate 16 18 Blood Pressure [Le ft Arm] 144/80 H Pulse Oximetry 98 97 Oxygen Delivery [facility] Room Air Room Air 01/04/25 07:00 01/04/25 07:00 01/04/25 07:00 Temperature 97.5 F L Pulse Rate 78 Pulse Rate [Right Pulse Oximeter] 74 Respiratory Rate 18 18 Blood Pressure [Le ft Arm] 139/72 Pulse Oximetry 96 96 [facility] Air 01/04/25 11:00 Temperature 97.8 F Pulse Rate Pulse Rate [Right Pulse Oximeter] 69 Respiratory Rate 18 Blood Pressure [Le ft Arm] 130/69 Pulse Oximetry 97 [facility] Labs/Imaging Labs Labs: No leukocytosis. Hemoglobin is stable this morning at 9.3 Progress Note:A&P Assessment and plan (1) Cecal volvulus: Status: Acute Assessment and Plan: Patient is postop day 4 ileocecectomy with [id number] functional end-to-end anastomosis. Patient has had return of bowel function. There is bright red blood in the toilet bowl. This could be some a bleeding from the anastomosis or hemorrhoids. I am not concerned about any significant bleeding with patient asymptomatic, hemodynamically stable and not passing blood clots. He does have chronic anemia secondary to his kidney disease. His hemoglobin this morning was stable at 9.3. Will check another hemoglobin this afternoon. Plan -regular diet -p.o. pain meds as needed -encourage ambulation -hemoglobin ordered for this afternoon -SCDs and Lovenox for DVT prophylaxis. If he does have a drop in his hemoglobin will hold the Lovenox.
[2025-01-04 15:22] LABS: HGB WITH REFLEX TO FERRITIN 9.8 (13.5-17.5)
--- NOTE | 2025-01-04 19:48 | PC.NURSE ---
End of shift [id number] - Pt alert, oriented, cooperative. Up with standby assistance and walker/gait belt. Pt reported abdominal pain as 2/10, refused medication and ice pack. Pt reported BM to RN, bright red blood noted. MD made aware, no orders given. Pt continued to have loose BMs with bright, red blood. MD made aware again, no orders given. Pt reported event of lightheadedness while having a BM. RN measured VS and alerted MD to pt's reported symptoms. Pt reported recovering from symptoms with rest, MD made aware. Tolerating RA and advance to regular diet per MD order. Appears to be resting with call light within reach at end of shift.
[2025-01-04] MEDS: ENOXAPARIN 40 MG/0.4 ML INJ SUBCUT (21:32)
[2025-01-04] MEDS: TAMSULOSIN HCL 0.4 MG CAPSULE PO (21:32)
[2025-01-05] VITALS (7 sets, daily range): BP systolic 126–149; BP diastolic 63–85; PULSE 68–80; RESP 16–18; TEMP 36.2–36.7; O2SAT 95–99; BMI 21.4
[2025-01-05 06:39] LABS: Hematocrit 25.3 % (37.0-53.0); Hemoglobin* 8.6 gm/dL (13.5-17.5); Mean Corpuscular HGB Conc 34 gm/dL (32-36); Mean Corpuscular Hemoglobin 36 pg (26-34); Mean Corpuscular Volume 107 fL (80-100); Red Blood Count 2.37 m/uL (4.30-5.90); White Blood Count* 3.83 K/uL (4.50-11.00)
--- NOTE | 2025-01-05 06:39 | PC.NURSE ---
[id number]: Patient pleasant and cooperative. Afebrile. Midline abdomen incision w/steri strips C/D/I with a scant amount of old drainage. Rates pain 0 at rest and 2 with activity. Declines pain medications. Independent in room. Patient not wanting to ambulate in halls d/t frequency and urgency of BM's, however, no BM's during this shift. BS active. Tolerating a regular diet with small portions. Denies N/V.
[2025-01-05 06:42] LABS: Slide Review Reflex No
[2025-01-05 06:56] LABS: Chloride* 106 mmol/L (96-114); Sodium* 133 mmol/L (135-149)
[2025-01-05 06:57] LABS: Potassium* 3.9 mmol/L (3.6-5.1)
[2025-01-05 06:59] LABS: Blood Urea Nitrogen* 18 mg/dL (7-30); Creatinine* 1.2 mg/dL (0.5-1.5); Est. Creatinine Clearance* 47.22; Estimated Glomerular Filt Rate 61 ml/min
[2025-01-05 07:00] LABS: Anion Gap 1 mEq/L (7-15); Calcium* 7.8 mg/dL (8.4-10.6); Carbon Dioxide* 26 mmol/L (20-32); Glucose* 98 mg/dL (60-115)
[2025-01-05] MEDS: FUROSEMIDE 40 MG TABLET 80 MG PO (09:21)
[2025-01-05] MEDS: METOPROLOL TARTRATE 25 MG TABLET PO ×2 (09:22→21:20)
--- NOTE | 2025-01-05 10:42 | PM.GSPN ---
Subjective Subjective Date Seen: 01/05/25 Interval history: Patient had a great night last night. He slept well. He has not had any diarrhea since yesterday. He did pass a little bit of gas this morning. He has been tolerating a regular diet without difficulty. Yesterday around 4:00 p.m. he had a large loose stool that was mainly blood. He continues to be asymptomatic with no reported lightheadedness or dizziness. Exam Narrative: Exam Narrative: Abdomen: Soft, nontender nondistended. Steri-Strips in place clean/dry/intact. Const: Vital Signs, click to edit/add: Vital Signs - 24 hr 01/04/25 11:00 01/04/25 15:00 01/04/25 15:00 Temperature 97.8 F 97.4 F L Pulse Rate [Right Pulse Oximeter] 69 72 Respiratory Rate 18 18 18 Blood Pressure [Le ft Arm] 130/69 132/59 L Pulse Oximetry 97 98 98 Oxygen Delivery [facility] Room Air Room Air Room Air 01/04/25 19:00 01/04/25 20:14 01/04/25 23:00 Temperature 98.0 F 98.1 F Pulse Rate [Right Pulse Oximeter] 90 64 Respiratory Rate 20 18 Blood Pressure [Le ft Arm] 133/84 140/73 H Pulse Oximetry 97 98 [facility] Room [facility] 01/04/25 23:58 01/05/25 05:05 01/05/25 07:00 Temperature 98.3 F 97.1 F L Pulse Rate [Right Pulse Oximeter] 73 76 Respiratory Rate 18 16 Blood Pressure [Le ft Arm] 148/84 H 149/83 H Pulse Oximetry 98 97 95 [facility] Room Air 01/05/25 09:12 Temperature 97.6 F Pulse Rate [Right Pulse Oximeter] 68 Respiratory Rate 16 Blood Pressure [Le ft Arm] 145/75 H Pulse Oximetry 96 [facility] Labs/Imaging Labs Labs: Hemoglobin 8.6 this morning. Platelets are low at 128 Progress Note:A&P Assessment and plan (1) Cecal volvulus: Status: Acute Assessment and Plan: Patient is postop day 5 ileocecectomy with [id number] functional end-to-end anastomosis. Patient had a large amount of blood in his bowel movement yesterday afternoon. No bowel movements overnight. His hemoglobin did drift down to 8.6 this morning. Will plan to recheck a hemoglobin this afternoon. Will hold Lovenox for DVT prophylaxis. Okay to continue regular diet and encourage ambulation. Discharge likely tomorrow.
[2025-01-05 14:05] LABS: Hemoglobin* 8.8 gm/dL (13.5-17.5)
--- NOTE | 2025-01-05 14:39 | PM.IMPN1 ---
Assessment and Plan Assessment and plan (1) Cecal volvulus: Problem comment: - status post exploratory laparotomy and ileocecectomy 12/31/2024, Dr. Peñaloza, [facility] Tolerating diet. Continue in hospital for 1 more day due to bright red blood per rectum. Stop Lovenox. Status: Acute (2) Nephrotic range proteinuria: Problem comment: - 11/20/24: 24 hour urine protein:Cr 3,634 mg/g, improved since 05/2024 - continue to optimize lisinopril at 20 mg daily if BP allows, vs decrease dose to 10 mg daily or stop if warranted - poor candidate for SGLT2-I due to poor oral intake and intermittent diarrhea, mechanical technician recommends against trying this - ordinarily on furosemide 80 mg once daily. This is on hold. Will schedule furosemide 20 mg IV every day for now and monitor closely - consider restarting lisinopril when he is able to take medications orally again Status: Acute (3) Hypotension: Problem comment: Patient had hypotension on admission. Blood pressure medicines have been resumed except Cardizem. Unclear if he will need Cardizem after discharge Status: Acute (4) Atrial fibrillation: Problem comment: Uncertain diagnosis with history of tachy palpitations. Continue beta-key and as tolerated diltiazem. No anticoagulation indicated. Cardiac monitoring here shows sinus rhythm with frequent PACs. No indication for rate control or anticoagulation at this time Status: Acute Plan Continue in-hospital for follow-up of surgery with ongoing evidence of bleeding. Possible discharge to home tomorrow if doing well. Total Time Spent Total Time Spent: Total time spent today is 40 minutes in coordination of care and discussing with patient other providers ongoing management of surgical recovery, hypertension/hypotension, bleeding Subjective Date Seen: 01/05/25 Interval history: 79-year-old male admitted to the hospital with abdominal cramping, weakness, fatigue. This started 4 days prior to admission. He reports he has had occasional episodes of abdominal cramping for a long time. 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 Recent PET scan suggests progression of disease. At the time of admission he was found to have a cecal volvulus on CT scan. He underwent surgery with Dr. Peñaloza for urgent laparotomy and ileocecectomy. 01/01/2025: Postop day 1 patient reports feeling well today. Having some abdominal pain consistent with his postoperative status. He has no fever, dyspnea, chest pain. 01/02/2025: Postop day 2 patient reports feeling well again today. He has passed some gas. He is started on clear liquids by mouth. Abdominal pain is minimal. No nausea, dyspnea, chest pain, fever. 01/03/2025: Postop day 3. Patient reports continued to feel well. He has minimal pain. He continues to pass gas. He has been on clear liquids. No nausea. No dyspnea. No fever. The patient has a history of episodic tachy palpitations. This was evaluated between 2019 in 2021. There was concern for episodic atrial fibrillation but never confirmed. He remains on diltiazem and metoprolol and has been relatively asymptomatic. During this hospital stay he has been in sinus rhythm. He is also followed outpatient with Nephrology for management of hypertension and proteinuria. 01/04/2025: Postop day 4. Patient reports feeling well today. Minimal pain. Passed a small liquid stool with blood this morning. He is feeling more abdominal cramping today. No dyspnea. No fever. 01/05/2025: Postop day 5. Patient continues to report feeling well. Minimal pain. He had ongoing bloody diarrhea yesterday. Hemoglobin went from 9.8 to 8.6 overnight. He is tolerating regular diet. Exam Narrative: Exam Narrative: He is alert and appears in no distress. Abdomen is soft without tenderness or mass wound is well healing without erythema or drainage. Extremities with 1+ edema bilaterally. Const: Vital Signs, click to edit/add: Vital Signs - 24 hr 01/04/25 15:00 01/04/25 15:00 01/04/25 19:00 Temperature 97.4 F L 98.0 F Pulse Rate [Right Pulse Oximeter] 72 90 Respiratory Rate 18 18 Blood Pressure [Le ft Arm] 132/59 L 133/84 Pulse Oximetry 98 98 97 Oxygen Delivery [facility] Room Air Room Air Room Air 01/04/25 20:14 01/04/25 23:00 01/04/25 23:58 Temperature 98.1 F 98.3 F Pulse Rate [Right Pulse Oximeter] 64 73 Respiratory Rate 20 18 18 Blood Pressure [Le ft Arm] 140/73 H 148/84 H Pulse Oximetry 98 98 98 Oxygen Delivery [facility] Room Air Room Air Room Air 01/05/25 05:05 01/05/25 07:00 01/05/25 09:12 Temperature 97.1 F L 97.6 F Pulse Rate [Right Pulse Oximeter] 76 68 Respiratory Rate 16 16 Blood Pressure [Le ft Arm] 149/83 H 145/75 H Pulse Oximetry 97 95 96 Oxygen Delivery [facility] Room Air Room Air Room Air 01/05/25 11:00 Temperature 98.1 F Pulse Rate [Right Pulse Oximeter] 76 Respiratory Rate 16 Blood Pressure [Le ft Arm] 126/85 Pulse Oximetry 98 Oxygen Delivery [facility] Room Air Documenting provider has reviewed patient's vital signs: yes Labs Labs: Laboratory Results - last 24 hr 01/04/25 01/05/25 01/05/25 15:12 05:51 14:00 WBC 3.83 L RBC 2.37 L Hgb 9.8 L 8.6 L 8.8 L Hct 25.3 L MCV 107 H MCH 36 H MCHC 34 Plt Count 128 L Sodium 133 L Potassium 3.9 Chloride 106 Carbon Dioxide 26 Anion Gap 1 L BUN 18 Creatinine 1.2 Estimated Creat Clear 47.22 Estimated GFR 61 Glucose 98 Calcium 7.8 L Ferritin 499.0 H
--- NOTE | 2025-01-05 18:11 | PC.NURSE ---
Pt is doing well today. VSS. Denies pain. Pt reports having one bowel movement stating there was just a little bit of blood in it; this was not visualized by nursing staff. Pt denies lightheadedness or dizziness, he has been frequently ambulating the halls independently and tolerating it well. Pt is tolerating a regular diet. Surgical incision is open to air, clean, dry and intact.
[2025-01-05] MEDS: TAMSULOSIN HCL 0.4 MG CAPSULE PO (21:20)
[2025-01-05] MEDS: SODIUM CHLORIDE 0.9 % (FLUSH) 10 ML SYRINGE 5 ML IVF (21:22)
[2025-01-06 00:33] VITALS: BP 119/63; PULSE 68; RESP 16; TEMP 36.9; O2SAT 97
[2025-01-06 04:21] VITALS: BP 134/66; PULSE 63; RESP 18; TEMP 36.7; O2SAT 97
[2025-01-06 06:45] LABS: Hematocrit 23.6 % (37.0-53.0); Hemoglobin* 8.0 gm/dL (13.5-17.5); Immature Granulocytes Abs Auto 0.00 K/uL (0.00-0.30); Immature Granulocytes Pct Auto 0.0 %; Mean Corpuscular HGB Conc 34 gm/dL (32-36); Mean Corpuscular Hemoglobin 36 pg (26-34); Mean Corpuscular Volume 107 fL (80-100); RDW Coefficient of Variation % 13.0 % (11.5-15.5); Red Blood Count 2.20 m/uL (4.30-5.90); White Blood Count* 3.84 K/uL (4.50-11.00)
[2025-01-06 07:00] VITALS: PULSE 80; RESP 16; O2SAT 99
[2025-01-06 07:29] LABS: Lymphocytes Absolute Auto 0.80 K/uL (0.90-2.90)
[2025-01-06 07:30] LABS: Slide Review Reflex No
--- NOTE | 2025-01-06 07:55 | PC.NURSE ---
Shift note ([id number]): Patient pleasant, alert and oriented. Sat up in chair until HS. Ambulating independently in room. Teds removed at 0030 per pt request. Reported having one small BM at approximately 1900. He states it, ?was dark and looked like old blood.? He did flush toilet so ad writer was unable to observe. A hat was placed in toilet and pt instructed to let staff know when he has a BM. Denied pain during night.?
[2025-01-06 09:12] VITALS: BP 131/80; PULSE 80; RESP 16; TEMP 36.6; O2SAT 99
[2025-01-06] MEDS: FUROSEMIDE 40 MG TABLET PO (09:14)
[2025-01-06] MEDS: METOPROLOL TARTRATE 25 MG TABLET PO (09:15)
[2025-01-06 11:00] VITALS: BP 117/69; PULSE 74; RESP 16; TEMP 36.4; O2SAT 98
--- NOTE | 2025-01-06 12:12 | PM.DS1 ---
DS: Providers Provider Date Seen: 01/06/25 Date of admission: 12/31/24 19:16 Primary care physician: Beto Anne MD Admitting Clinician: Charmaine Peñaloza MD Consults: 12/31/24 19:05 Consult to Physician [CONS] Routine Comment: Consulting Provider: Tobias Padgett Has provider been notified: Yes Attending Physician on discharge: J[facility] Hall [facility] Date of Discharge: 01/06/25 DS: Diagnosis Discharge Diagnosis (1) Cecal volvulus: Status: Acute Problem details: - status post exploratory laparotomy and ileocecectomy 12/31/2024, Dr. Peñaloza, [facility] - discharge 01/06, no further blood noted in stool (2) LANETTE (acute kidney injury): Status: Acute Problem details: -creat at admission 1.7; back to baseline on discharge (1.2) (3) Stage 3 chronic kidney disease: Status: Chronic Problem details: baseline GFR 47 (4) Anemia: Status: Acute Problem details: - acute on chronic - chronic anemia likely in part due to chronic kidney disease - monitor postoperatively - discharge hgb 8.0; down from 12 at admission. gen surgery aware; no active bleeding suspected. (5) Type 2 diabetes mellitus: Status: Acute Problem details: 5.4 A1C at admission (6) Malignant neoplasm of right kidney: Status: Acute Problem details: - Stage IV Clear cell renal carcinoma, abstracted [place] [facility] notes - Most recent whole body PET CT on 12/18/2024: broadly stable subpleural nodule between the right 5th and 6th intercostal space and lateral right hepatic lobe, with development of new FDG avid thickening in right inferomedial pleura highly suspicious for progression of disease. -Hold immunotherapy for now -will see oncology after discharge (7) Nephrotic range proteinuria: Status: Acute Problem details: - 11/20/24: 24 hour urine protein:Cr 3,634 mg/g, improved since 05/2024 - continue to optimize lisinopril at 20 mg daily if BP allows, vs decrease dose to 10 mg daily or stop if warranted - poor candidate for SGLT2-I due to poor oral intake and intermittent diarrhea, equine breeder recommends against trying this - ordinarily on furosemide 80 mg once daily. This is on hold. Will schedule furosemide 20 mg IV every day for now and monitor closely - consider restarting lisinopril when he is able to take medications orally again (8) Atrial fibrillation: Status: Acute Problem details: Uncertain diagnosis with history of tachy palpitations. Continue beta-key and as tolerated diltiazem. No anticoagulation indicated. Cardiac monitoring here shows sinus rhythm with frequent PACs. No indication for rate control or anticoagulation at this time (9) Hypothyroidism: Status: Chronic Problem details: started levothyroxine 05/02, abstracted [place] [facility] records (10) History of nephrectomy, right: Status: Acute Problem details: renal cell carcinoma 06/16/22 (11) Hypertension: Status: Acute Problem details: Resume oral blood pressure medications as tolerated. (12) GERD (gastroesophageal reflux disease): Status: Acute DS: Summary Hospital Course Hospital Course: QUESTIONS AND ISSUES TO ASK/ADDRESS AT FOLLOW-UP: 1. Any further blood in your stool? Patient had a couple of episodes of black stool toward the end of his hospitalization. No further workup was initiated as he was clinically stable and a problem with limited. He did have a moderate anemia that was considered multifactorial. In part his chronic kidney disease, in part acute blood loss from surgery, GI loss with Lovenox and postsurgical/hypotensive episode. Discharge hemoglobin was 8.0. This should be continued to be monitored as an outpatient. 2. His electrolytes were monitored as well as his blood pressure. At discharge his blood pressure, potassium were normal. His sodium was coming up at 133. His calcium was up trending 7.8. It would be reasonable to check a kidney function panel, CBC follow-up 3. He had a brief tachy arrhythmia while admitted. There was some concern for AFib but this was not captured and normal sinus was the predominant rhythm. Orthostatic blood pressures and review of his antihypertensive regimen (we added metoprolol 25 mg b.i.d. and had use diltiazem as an inpatient but did not continue this at discharge) is reasonable. BRIEF HOSPITAL COURSE: PATIENT WAS ADMITTED FOR DAYS. SYNOPSIS OF ACUTE INPATIENT ISSUES ARE OUTLINED ABOVE. CHRONIC MEDICAL CONDITIONS WITH NOTABLE FINDINGS OUTLINED ABOVE. Patient was admitted for 7 days. He had surgery on the day of admission. He underwent a exploratory laparotomy with an ileocecectomy for acute cecal volvulus by Dr. Charmaine Peñaloza on 12/31/2024. He did well postoperatively. This is extraordinary given his advanced age, metastatic renal cell carcinoma, tachyarrhythmias, hypotension. The hospital medicine team supported his hypotension, hyponatremia and overall care. Each day he made improvements and was tolerating a normal diet by discharge. He was ambulatory in the halls. He did report a couple of dark/bloody bowel movements the day and afternoon prior to discharge. No abdominal pain. No hemorrhage. No further issues. He was discharged on 01/06. DISCHARGE MEDICATIONS: SEE RECONCILED LIST - SIGNIFICANT CHANGES: His only new med is metoprolol 25 mg b.i.d.. He was temporarily on diltiazem while an inpatient. This was not continued at discharge. PCP can discuss his antihypertensive and chronic kidney disease regimen. We continued the Lasix and the lisinopril. SPECIFIC INSTRUCTIONS TO THE PATIENT AND FOLLOW-UP ARE OUTLINED BELOW. REVIEW OF SYSTEMS NO NEW CHEST PAIN OR DYSPNEA PAIN CONTROLLED NO VOIDING DIFFICULTIES TOLERATING DIET CHALLENGE PHYSICAL EXAM: CONSTITUTIONAL: CONVERSIVE, GOOD HISTORIAN. A/O. KNOWS SETTING AND CONTEXT. GENERAL: WELL-DEVELOPED AND ABOVE IDEAL BODY WEIGHT, IN NO RESPIRATORY DISTRESS. VITAL SIGNS: SEE RECORD. HEENT: SCLERAE ARE ANICTERIC. NO PETECHIAE. CARDIAC: RHYTHM IS REGULAR. THERE IS NO S3 OR RUB. NO HARSH MURMURS. EXTREMITIES SHOW TRACE EDEMA WITH SYMMETRICAL PULSES. PULM: GOOD AIR ENTRY WITH NO WHEEZE. NEURO: SPEECH IS FLUENT. A BRIEF NEUROLOGIC EXAM IS NEGATIVE. SKIN: NO RASHES, PETECHIAE, CONCERNING CHANGES PSYCHIATRIC: EUTHYMIC. DISPOSITION: Home with family TIME SPENT ON DISCHARGE 37 MINUTES. Status at Discharge Functional status at discharge: uses cane/walker Overall status at discharge: patient is progressing back to baseline Time Spent with Patient Time attestation: Total time spent providing and/or coordinating discharge services: Time spent: Greater than 30 minutes Exam Const: Vital Signs, click to edit/add: Vital Signs - 24 hr 01/05/25 15:00 01/05/25 15:00 01/05/25 15:13 Temperature 97.2 F L Pulse Rate [Right Pulse Oximeter] 69 69 Respiratory Rate 16 16 16 Blood Pressure [Le ft Arm] 131/71 Pulse Oximetry 99 99 Oxygen Delivery Me thod Room Air Room Air 01/05/25 21:12 01/06/25 00:33 01/06/25 00:33 Temperature 98.0 F 98.4 F Pulse Rate [Right Pulse Oximeter] 80 68 Respiratory Rate 18 16 16 Blood Pressure [Le ft Arm] 129/63 119/63 Pulse Oximetry 97 97 97 Oxygen Delivery Me thod Room Air Room Air Room Air 01/06/25 04:21 01/06/25 07:00 01/06/25 07:00 Temperature 98.0 F Pulse Rate [Right Pulse Oximeter] 63 80 Respiratory Rate 18 16 16 Blood Pressure [Le ft Arm] 134/66 Pulse Oximetry 97 99 Oxygen Delivery Me thod Room Air Room Air 01/06/25 09:12 01/06/25 11:00 Temperature 97.9 F 97.5 F L Pulse Rate [Right Pulse Oximeter] 80 74 Respiratory Rate 16 16 Blood Pressure [Le ft Arm] 131/80 117/69 Pulse Oximetry 99 98 Oxygen Delivery Me thod Room Air Room Air DS: Data Data Completed and Pending Labs on day of discharge: Labs from last 24 hours 01/06/25 01/05/25 06:25 14:00 WBC 3.84 L RBC 2.20 L Hgb 8.0 L 8.8 L Hct 23.6 L MCV 107 H MCH 36 H MCHC 34 RDW Coeff of Dorie 13.0 Plt Count 128 L Neut % (Auto) 66.4 Lymph % (Auto) 21.9 [place] % (Auto) 9.1 Eos % (Auto) 2.3 Baso % (Auto) 0.3 Neut # (Auto) 2.50 Lymph # (Auto) 0.80 L [place] # (Auto) 0.30 Eos # (Auto) 0.10 Baso # (Auto) 0.00 Abs Immat Gran (auto) 0.00 Imm/Tot Granulo (auto) 0.0 Discharge Plan Discharge Disposition: Home, Self-Care Date of Admission: 12/31/24 19:16 Attending Provider on Discharge: Raul Lyon Consulting Providers: Tobias Padgett Primary Care Provider: Beto Anne Condition: Guarded Anticipated Discharge Date/Time: 01/05/25 13:00 Discharge Medications: Continued acetaminophen [Tylenol] 325 mg tablet 650 mg PO BID PRN hydrocortisone [Proctosol HC] 2.5 % cream with perineal applicator 1 applic OK BID-QID PRN (Reason: hemorrhoids) Qty: 3 3RF tamsulosin 0.4 mg capsule 0.4 mg PO DAILY Qty: 90 3RF ondansetron HCl 8 mg tablet 8 mg PO TID PRN levothyroxine 112 mcg tablet 112 mcg PO DAILY omeprazole 20 mg capsule,delayed release(DR/EC) 20 mg PO DAILY furosemide 40 mg tablet 80 mg PO DAILY lisinopril 20 mg tablet 20 mg PO DAILY Changed metoprolol tartrate 25 mg tablet 25 mg PO BID Qty: 60 0RF Held Cabometyx 20 mg tablet 40 mg PO DAILY Hold Instructions: Resume on 01/15/25. Discontinued diltiazem HCl 240 mg capsule,extended release 24hr 240 mg PO DAILY Qty: 90 2RF Discharge Orders: Discharge Order (Routine); Ordered 01/06/25 Ordered By: Jana Hall Patient Education: Colectomy (DC) Additional Instructions: Ok to shower. Do not soak in a bath or tub until the incision is well healed. Allow steri strips to fall off on their own. Activity Level: No strenuous activity Activity Detail: No lifting > 20 lbs for 6 weeks. Discharge Diet: Regular Follow Up Appointments: Charmaine Peñaloza MD [Staff Physician, General Surgery] Referral Note: Alejandro Pino MD [Staff Physician, General Surgery] - 01/17/25 1:45 pm Referral Note: [facility] for follow up with Dr. Pino, Dr. Peñaloza unavailable during desired time frame Beto Anne MD [Primary Care Provider, Family Practice] - 02/05/25 12:15 pm Referral Note: [facility] [place] for follow up with PCP Forms: [facility] Bel[facility]ings, [facility] Info Instructions
== END 2025-01-06 14:50 | disposition home or self-care (01) | DRG 330 ==
LOC: ED 16:19 → SS 16:34 → MEDSURG 20:56 → SS 01-01 11:50
PROVIDERS: Family Medicine; Internal Medicine; Admitting Provider Surgery; Emergency Provider Family Medicine; PCP Family Medicine; Visit Provider Surgery
PROC: 0DTH0ZZ Resection of Cecum, Open Approach (ICD-10-PCS; CPT 49000; principal; 2024-12-31 15:30)
PROC: 0DTH0ZZ Resection of Cecum, Open Approach (ICD-10-PCS; 2024-12-31 15:30)
DX: K56.2 Volvulus (principal); C64.1 Malignant neoplasm of right kidney, except renal pelvis; N17.9 Acute kidney failure, unspecified; E87.1 Hypo-osmolality and hyponatremia; K92.1 Melena; D62 Acute posthemorrhagic anemia; G89.18 Other acute postprocedural pain; I12.9 Hypertensive chronic kidney disease with stage 1 through stage 4 chronic kidney disease, or unspecified chronic kidney disease; N18.30 Chronic kidney disease, stage 3 unspecified; E11.22 Type 2 diabetes mellitus with diabetic chronic kidney disease; D63.1 Anemia in chronic kidney disease; I48.91 Unspecified atrial fibrillation; Z90.5 Acquired absence of kidney; I95.1 Orthostatic hypotension; R42 Dizziness and giddiness; R00.1 Bradycardia, unspecified; E83.51 Hypocalcemia; E88.09 Other disorders of plasma-protein metabolism, not elsewhere classified; K57.30 Diverticulosis of large intestine without perforation or abscess without bleeding; K21.9 Gastro-esophageal reflux disease without esophagitis; N40.0 Benign prostatic hyperplasia without lower urinary tract symptoms; I45.19 Other right bundle-branch block; I44.0 Atrioventricular block, first degree; E03.9 Hypothyroidism, unspecified; M51.369 Other intervertebral disc degeneration, lumbar region without mention of lumbar back pain or lower extremity pain
CPT/HCPCS: 00840; 36415; 64488; 74177; 76942; 80048; 80076; 81001; 82728; 83036; 83605; 83690; 83735; 83880; 84100; 84145; 84484; 85018; 85025; 85027; 86140; 87086; 87631; 93005; 94761; 99100; 99140; 99285; A4467; A9270; J0330; J0665; J0666; J1100; J1171; J1650; J1938; J2371; J2405; J2543; J2704; J3475; J3490; J7030; J7042; Q9967

== ENCOUNTER 2025-05-07 11:20 | Outpatient (CLI) | payer MEDICARE, BC, SELFPAY | END 2025-05-07 11:21 | disposition home or self-care (01) | PROVIDERS: PCP Family Medicine; Visit Provider Family Medicine | DX: E11.9 Type 2 diabetes mellitus without complications (principal); R97.20 Elevated prostate specific antigen [PSA]; E83.42 Hypomagnesemia | CPT/HCPCS: 83735; G0103 ==